=== PATIENT | female | born 1950 | race Caucasian/White ===

== ENCOUNTER 2023-03-06 12:59 | Inpatient (IN) | payer OTHER, SELFPAY ==
--- NOTE | ~2023-03-06 | XR_ITS ---
EXAMINATION: XR ABDOMEN KUB CLINICAL INDICATION: Constipation. COMPARISON: None available. TECHNIQUE: AP view of the abdomen. FINDINGS: There is a biliary stent in the right upper quadrant with cholecystectomy nissa. There is moderate stool in the right colon and sigmoid region. No radiopaque calculi or organomegaly seen. No gross bony abnormality. XR/XR KUB IMPRESSION: 1. Moderate constipation. 2. Biliary stent in the right upper quadrant with cholecystectomy nissa in the right upper quadrant.
--- NOTE | ~2023-03-06 | XR_ITS ---
EXAMINATION: XR CHEST CLINICAL INFORMATION: [place] COMPARISON: None available. TECHNIQUE: Frontal view of the chest was obtained. FINDINGS: The lungs are expanded with haziness in right CP angle from pleural effusion. There is bilateral increased pulmonary vascularity both lung bases suggestive of congestion. Heart size enlarged. No gross bony abnormality seen. XR/XR chest 1V IMPRESSION: 1. Cardiomegaly with moderate pulmonary vascular congestion. 2. Small right pleural effusion with underlying atelectasis
--- NOTE | ~2023-03-06 | XR_ITS ---
EXAMINATION: XR CHEST CLINICAL INFORMATION: Shortness of breath. COMPARISON: 03/24/2023 TECHNIQUE: Frontal view of the chest was obtained. FINDINGS: The cardiac silhouette is enlarged but stable. The remaining mediastinal structures are stable. There is diffuse increased interstitial markings and faint diffuse lung opacities. There is a layering right lung base opacity and blunting of the left costophrenic angle. The bony structures and soft tissues are unremarkable. XR/XR chest 1V IMPRESSION: Cardiomegaly with diffuse increased interstitial markings/faint lung opacities similar to previous likely representing interstitial and possible early pulmonary edema. Small to moderate right and possibly minimal left pleural effusions. Similar findings were present previously.
[2023-03-06 14:00] VITALS: BMI 29.7
--- OUTSIDE RECORDS SUMMARY | 2023-03-06 14:42 | XMS_ITS | Continuity of Care Document ---
Author Name [facility] Organization [facility] Address [address] [place] [address]- Care Team Providers Care Felter Tennis Balls Name Role Phone Rj LEAD SHAREPOINT DEVELOPER, Winsome M Primary Care Physician Encounter [facility] Date(s): 11/29/21 [facility] [address] [address]- [place] Encounter Diagnosis COPD with asthma(Discharge Diagnosis) - 11/30/21 Chronic constipation(Discharge Diagnosis) - 11/30/21 Cirrhosis of liver with ascites(Discharge Diagnosis) - 11/30/21 DM2 (diabetes mellitus, type 2)(Discharge Diagnosis) - 11/30/21 Hospital discharge follow-up(Discharge Diagnosis) - 11/30/21 Attending Physician: Not on Staff, Attending MD Allergies, Adverse Reactions, Alerts Substance Reaction Severity Status aspirin hives unknown Persistent Mild Active penicillins gerd gi distress Headache Active Bee Stings anaphylaxis Persistent Severe Active Immunizations Given and Recorded Vaccine Date Status Refusal Reason influenza virus vaccine, inactivated 10/19/21 Give n influenza virus vaccine, inactivated 05/04/20 Anthony rded influenza virus vaccine, inactivated 1 07/10/18 Re corded influenza virus vaccine, inactivated 09/24/17 Give n influenza virus vaccine, inactivated 06/20/16 Give n influenza virus vaccine, inactivated 2 04/19/15 Re corded influenza virus vaccine, inactivated 3 05/17/14 Gi sukhi SARS-CoV-2 (COVID-19) mRNA-1273 vaccine 06/21/21 R ecorded SARS-CoV-2 (COVID-19) Ad26 vaccine 11/20/20 Given Zoster Vaccine Live 4 07/10/18 Recorded Zoster Vaccine Live 5 11/09/15 Recorded Zoster Vaccine Live 08/19/12 Recorded zoster vaccine, inactivated 01/27/18 Recorded pneumococcal 13-valent vaccine 01/27/18 Recorded pneumococcal 23-valent vaccine 6 07/19/15 Recorded pneumococcal 23-valent vaccine 03/31/10 Given Tet/Diphth/Acel, Pertussis (oldterm) 7 12/11/13 Gi sukhi 1Result Comment: [facility]07/11/2018] [facility] 3Admin Note: given at [facility] in [place], [place] 4Result Comment: [07/11/2018] [facility] 5Result Comment: [11/11/2015] given at [facility] [address] [place] [address] [phone] 6Location History: [facility] 7Admin Note: boostrix vis 12-28-2012 Medications albuterol 0.083% inhalation solution 3 mL = 2.5 mg, Inhalation, Every 6 hours, PRN Wheezing/Shortness of Breath, # 60 each, 6 Refills, Maintenance, 10/29/14 10:00:25, Solution Start Date: 10/29/14 Status: Ordered escitalopram 20 mg oral tablet 1 tablet = 20 mg, By Mouth, Daily, # 90 tablet, 1 Refills, Maintenance, 11/29/21 7:27:00 EDT, Tablet, [id number], 150, cm, 11/03/21 13:46:00 EDT, Height, 100.8, kg, 11/01/21 22:19:00EDT, Dry Weight Start Date: 11/29/21 Stop Date: 05/28/22 Status: Ordered furosemide 20 mg oral tablet 20 mg, 1, tablet, By Mouth, 2 times a day, # 180 tablet, Refills 1, Tot. Refills 1, Maintenance, 12/01/21 16:35:00 EDT, Route to Pharmacy Electronically, [facility] #[id number], Partial fill upon patient request if the prescription is for a sched... Start Date: 12/01/21 Stop Date: 05/30/22 Status: Ordered furosemide 40 mg oral tablet 40 mg, 1, tablet, By Mouth, Daily, Refills 0, Maintenance, 11/03/21 16:24:00 EDT, Partial fill uponpatient request if the prescription is for a schedule II opioid drug. Start Date: 11/03/21 Status: Ordered gabapentin 100 mg oral capsule 200 mg, 2, capsule, By Mouth, 3 times a day, 2 capsules to equal 200 mg three times a day., # 180 capsule, Refills 3, Tot. Refills 3, Maintenance, 12/05/21 20:30:00 EDT, Route to Pharmacy Electronically, [facility] #[id number], Partial fill upon... Start Date: 12/05/21 Status: Ordered gabapentin 100 mg oral capsule 200 mg, 2, capsule, By Mouth, 3 times a day, # 180 capsule, Refills 3, Tot. Refills 3, Maintenance,12/27/20 11:32:00 EDT, Route to Pharmacy Electronically, [facility] #[id number], Partial fill upon patient request if the prescription is for a sc... Start Date: 12/27/20 Status: Ordered isosorbide mononitrate 30 mg oral tablet, extended release 30 mg, 1, tablet, By Mouth, Daily in AM, # 30 tablet, Refills 3, Tot. Refills 3, Maintenance, 04/06/21 12:52:00 EDT, Route to Pharmacy Electronically, [facility] #[id number], Partial fill upon patient request if the prescription is for a schedule... Start Date: 04/06/21 Status: Ordered Lantus Solostar Pen 100 units/mL subcutaneous solution = 15 units, Subcutaneous Infusion, Daily, with evening meal, # 15 mL, 3 Refills, Maintenance, 11/29/21 21:45:00 EDT, [facility] #[id number], Partial fill upon patient request if the prescriptionis for a schedule II opioid drug., 150, cm, ... Start Date: 11/29/21 Status: Ordered levothyroxine 0.025 mg oral tablet 1 tablet, By Mouth, Daily, # 90 tablet, 1 Refills, Maintenance, 11/29/21 7:27:00 EDT, Tablet, [facility] #[id number], 150, cm, 11/03/21 13:46:00 EDT, Height, 100.8, kg, 11/01/21 22:19:00 EDT, Dry Weight Start Date: 11/29/21 Stop Date: 05/28/22 Status: Ordered LORazepam 0.5 mg oral tablet 1 tablet = 0.5 mg, By Mouth, Daily, PRN Anxiety, # 24 tablet, 0 Refills, Maintenance, 11/29/21 7:28:00 EDT, Tablet, [facility] #[id number], 150, cm, 11/03/21 13:46:00 EDT, Height, 100.8, kg, 11/01/21 22:19:00 EDT, Dry Weight Start Date: 11/29/21 Status: Ordered magnesium oxide 400 mg oral tablet 1 tablet = 400 mg, By Mouth, 2 times a day, 0 Refills, Maintenance, 11/03/21 16:26:00 EDT, Tablet, Partial fill upon patient request if the prescription is for a schedule II opioid drug. Start Date: 11/03/21 Status: Ordered MiraLax Powder 1 pack/packet = 17 Gm, By Mouth, 2 times a day, 0 Refills, Maintenance, 11/03/21 16:26:00 EDT, Powder, Partial fill upon patient request if the prescription is for a schedule II opioid drug. Start Date: 11/03/21 Status: Ordered nadolol 20 mg oral tablet 20 mg, 1, tablet, By Mouth, Daily, # 90 tablet, Refills 0, Tot. Refills 0, Maintenance, 12/01/21 16:36:00 EDT, Route to Pharmacy Electronically, [facility] #[id number], Partial fill upon patientrequest if the prescription is for a schedule II op... Start Date: 12/01/21 Stop Date: 03/01/22 Status: Ordered nitroglycerin 0.4 mg sublingual tablet 1 tablet = 0.4 mg, Sublingual, Every 5 minutes, PRN as needed for chest pain, not to exceed 3 doses/15 min--if pain persists, seek medical attention, # 30 tablet, 3 Refills, Maintenance, 04/05/21 13:22:00 EDT, Tablet, [facility] #[id number], Part... Start Date: 04/05/21 Stop Date: 08/03/21 Status: Ordered NovoLOG FlexPen 100 units/mL injectable solution See Instructions, Subcutaneous Infusion 3 times a day before meals. Sliding scale:: 150-200 2 [id number] 4 UNITS 300-350 6 UNITS, # 3 mL, 3 Refills, Maintenance, 12/01/21 11:54:00 EDT, [facility] #[id number], Partial fill upon patient requ... Start Date: 12/01/21 Status: Ordered OneTouch Verio Glucose Meter See Instructions, # 1 each, Maintenance, E11.8 Use as directed., 11/27/21 12:17:00 EDT, Supply, 150, cm, 11/03/21 13:46:00 EDT, Height, 100.8, kg, 11/01/21 22:19:00 EDT, Dry Weight Start Date: 11/27/21 Status: Ordered OneTouch Verio Lancets See Instructions, # 60 each, Refills 11, Tot. Refills 11, Maintenance, E11.8 Test blood glucose twice a day and as needed., 11/27/21 12:19:00 EDT, Supply, 150, cm, 11/03/21 13:46:00 EDT, Height, 100.8, kg, 11/01/21 22:19:00 EDT, Dry Weight Start Date: 11/27/21 Status: Ordered OneTouch Verio Test Strips See Instructions, # 60 each, Refills 11, Tot. Refills 11, Maintenance, E11.8 Test blood glucose twice a day and as needed., 11/27/21 12:17:00 EDT, Supply, 150, cm, 11/03/21 13:46:00 EDT, Height, 100.8, kg, 11/01/21 22:19:00 EDT, Dry Weight Start Date: 11/27/21 Status: Ordered pantoprazole 40 mg oral delayed release tablet = 40 mg, By Mouth, 2 times a day, Maintenance, 11/03/21 16:26:00 EDT, EC Tablet Start Date: 11/03/21 Status: Ordered Senna 8.6 mg oral tablet 17.2 mg, 2, tablet, By Mouth, 2 times a day, Refills 0, Maintenance, 11/03/21 16:26:00 EDT, Tablet,Partial fill upon patient request if the prescription is for a schedule II opioid drug. Start Date: 11/03/21 Status: Ordered Singulair 10 mg oral tablet 10 mg, 1, tablet, By Mouth, Daily in PM, BUBBLE PACK PLEASE, # 30 tablet, Refills 5, Tot. Refills 5, Maintenance, 10/14/21 18:18:00 EST, Route to Pharmacy Electronically, [facility] #[id number],148.4, cm, 10/05/21 10:50:00 EST, Height, 104.5, kg... Start Date: 10/14/21 Stop Date: 04/12/22 Status: Ordered spironolactone 100 mg oral tablet 100 mg, 1, tablet, By Mouth, Daily, # 90 tablet, Refills 1, Tot. Refills 1, Maintenance, 12/01/21 16:34:00 EDT, Route to Pharmacy Electronically, [facility] #[id number], Partial fill upon patient request if the prescription is for a schedule II o... Start Date: 12/01/21 Stop Date: 05/30/22 Status: Ordered umeclidinium 62.5 mcg/inh inhalation powder 1 inhalation = 62.5 mcg, Inhalation, Every 24 hours, doses should be taken at least 24 hours apart,# 30 each, 11 Refills, Maintenance, 01/06/21 14:47:00 EDT, Powder, [facility] #[id number], Partial fill upon patient request if the prescription i... Start Date: 01/06/21 Status: Ordered Xopenex HFA 45 mcg/inh inhalation aerosol 1 puffs, Inhalation, Every 6 hours, PRN Wheezing/Shortness of Breath, use with spacer chamber, # 1 each, 11 Refills, Maintenance, 02/24/18 18:32:00 EDT, Aerosol Start Date: 02/24/18 Status: Ordered Problem List Condition Effective Dates Status Health Status Inform ant Anemia of chronic disease(Confirmed) Active AVM (arteriovenous malformat ion) of stomach, acquired(Confirmed) 1 07/31/18 Active Arthritis(Confirmed) Active COPD with asthma(Confirmed) Active Bilateral knee pain(Confirmed) Active Head contusion(Confirmed) Active 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) 2 07/17/18 Active Chronic back pain(Confirmed) Active Chronic female pelvic pain(Confirmed) Active Chronic rhinitis(Confirmed) Active Cirrhosis of liver with ascites(Confirmed) Active Dyspnea on exertion(Confirmed) Active Easy bruising(Confirmed) Active Bilateral leg edema(Confirmed) Active Abdominal pain, generalized(Confirmed) Active Generalized anxiety disorder(Confirmed) Active GERD - Gastro-esophageal ref lux disease(Confirmed) Active POP-Q stage 2 rectocele(Confirmed) Active Mite allergy(Confirmed) 3 11/08/14 Active HTN (hypertension)(Confirmed) Active Gastric hyperplastic polyp(Confirmed) 11/21/20 Active Hypothyroidism(Confirmed) Active Fecal incontinence(Confirmed) Active Iron deficiency(Confirmed) Active Poor conditioning(Confirmed) Active Anxiety and depression(Confirmed) Active Mixed incontinence(Confirmed) Active Morbid obesity(Confirmed) Active Myocardial bridge(Confirmed) Active Ovarian tumor of borderline malignancy(Confirmed) 4 Active Osteoporosis(Confirmed) Active Numbness and tingling in hands(Confirmed) Active *[facility] [phone] CARE MANAG ER HELEN ROWDY(Confirmed) Active Hepatitis C virus infection resolved after antiviral drug therapy(Confirmed) Active Portal hypertension with eso phageal varices(Confirmed) Active DM2 (diabetes mellitus, type 2)(Confirmed) Active Urge urinary incontinence(Confirmed) Active 1tx with apc today due to bleeding. 2possibly Type III 33+ 4s/p bilateral salpingo-oophrectomy Diagnosis Diagnosis Type Effective Dates Health Status Clinical Service Informant COPD with asthma Discharge Diagnosis 11/30/21 Chronic constipation Discharge Diagnosis 11/30/21 Cirrhosis of liver with ascites Discharge Diagnosis 11/30/21 DM2 (diabetes mellitus, type 2) Discharge Diagnosis 11/30/21 Hospital discharge follow-up Discharge Diagnosis 11/30/21 Social History Social History Type Response Smoking Status Former smoker; Tobac co user in household: No; Type: Cigarettes; Tobacco use times per day: up to 2 ppd; Started at age: 16; Stopped at age: 48; entered on: 11/08/14 Sex
--- OUTSIDE RECORDS SUMMARY | 2023-03-06 14:42 | XMS_ITS | Continuity of Care Document ---
Author Name Unknown Organization [facility] Address [address] [place] [address]- Care Team Providers Care Asp Developer Name Role Phone Winsome De La Rosa NP Primary Care Physician [phone] Encounter [facility] Date(s): 08/11/19 - 12/09/19 [facility] [address] [place] [address]- Attending Physician: Winsome De La Rosa NP Allergies, Adverse Reactions, Alerts Substance Reaction Severity Status aspirin hives unknown Persistent Mild Active penicillins gerd gi distress Headache Active Bee Stings anaphylaxis Persistent Severe Active Immunizations Given and Recorded Vaccine Date Status Refusal Reason Zoster Vaccine Live 1 07/10/18 Recorded Zoster Vaccine Live 2 11/09/15 Recorded influenza virus vaccine, inactivated 3 07/10/18 Re corded influenza virus vaccine, inactivated 09/24/17 Give n influenza virus vaccine, inactivated 06/20/16 Give n influenza virus vaccine, inactivated 4 04/19/15 Re corded influenza virus vaccine, inactivated 5 05/17/14 Gi sukhi pneumococcal 23-valent vaccine 6 07/19/15 Recorded pneumococcal 23-valent vaccine 03/31/10 Given Tet/Diphth/Acel, Pertussis (oldterm) 7 12/11/13 Gi sukhi 1Result Comment: [07/11/2018] [facility] 2Result Comment: [11/11/2015] given at [facility] [address] [place] [address] 3Result Comment: [07/11/2018] [facility] 5Admin Note: given at [facility] in [place], [place] 6Location History[facility] 7Admin Note: [facility] vis 12-28-2012 Medications albuterol 0.083% inhalation solution 3 mL = 2.5 mg, Inhalation, Every 6 hours, PRN Wheezing/Shortness of Breath, # 60 each, 6 Refills, Maintenance, 10/29/14 10:00:25, Solution Start Date: 10/29/14 Status: Ordered Colace sodium 100 mg oral capsule 100 mg, 1, capsule, By Mouth, 2 times a day, BUBBLE PACK PLEASE, # 180 capsule, Refills 1, Tot. Refills 1, Maintenance, 10/21/19 14:37:00 EDT, Route to Pharmacy Electronically, [facility][id number], 149.9, cm, 08/10/19 9:46:00 EST, Height, 94.4... Start Date: 10/21/19 Stop Date: 04/18/20 Status: Ordered docusate sodium 100 mg oral capsule See Instructions, # 60 Unknown, Refills 14 Tot. Refills 14, TAKE ONE CAPSULE BY MOUTH TWICE DAILY, [facility] Start Date: 04/24/19 Status: Ordered escitalopram 10 mg oral tablet 1 tablet = 10 mg, By Mouth, Daily, BUBBLE PACK PLEASE, # 30 tablet, 6 Refills, Maintenance, 10/21/19 14:37:00 EDT, Tablet, [facility] #[id number], 149.9, cm, 08/10/19 9:46:00 EST, Height, 94.4, kg, 05/21/19 10:46:00 EDT, Dry Weight Start Date: 10/21/19 Status: Ordered FeroSul 325 mg oral tablet 1 tablet = 325 mg, By Mouth, 2 times a day, BUBBLE PACK PLEASE, # 60 tablet, 5 Refills, Soft Stop, 10/21/19 14:38:00 EDT, [facility] #[id number], 149.9, cm, 08/10/19 9:46:00 EST, Height, 94.4, kg, 05/21/19 10:46:00 EDT, Dry Weight Start Date: 10/21/19 Stop Date: 04/18/20 Status: Ordered ferrous sulfate 325 mg oral enteric coated tablet 325 mg, 1, tablet, By Mouth, 2 times a day, # 180 tablet, Refills 1, Tot. Refills 1, Maintenance, 12/24/18 14:50:03 EDT, [id number] Start Date: 12/24/18 Stop Date: 06/22/19 Status: Ordered Flovent HFA 220 mcg/inh inhalation aerosol 2 puffs, Inhalation, 2 times a day, # 1 each, 6 Refills, Maintenance, 09/24/17 16:24:21, Aerosol Start Date: 09/24/17 Stop Date: 04/22/18 Status: Ordered gabapentin 100 mg oral capsule 100 mg, 1, capsule, By Mouth, 2 times a day, BUBBLE PACK PLEASE, # 60 capsule, Refills 0, Tot. Refills 0, Maintenance, 12/04/19 14:46:00 EDT, Route to Pharmacy Electronically, [facility] #[id number], 149.9, cm, 08/10/19 9:46:00 EST, Height, 94.4,... Start Date: 12/04/19 Stop Date: 01/03/20 Status: Ordered levothyroxine 0.025 mg oral tablet 1 tablet, By Mouth, Daily, BUBBLE PACK PLEASE, # 30 tablet, 5 Refills, Maintenance, 10/21/19 14:40:00 EDT, Tablet, [facility] #[id number], 149.9, cm, 08/10/19 9:46:00 EST, Height, 94.4, kg, 05/21/19 10:46:00 EDT, Dry Weight Start Date: 10/21/19 Stop Date: 04/18/20 Status: Ordered lisinopril 20 mg oral tablet 20 mg, 1, tablet, By Mouth, Daily, BUBBLE PACK PLEASE, # 30 tablet, Refills 5, Tot. Refills 5, Maintenance, 10/21/19 14:40:00 EDT, Route to Pharmacy Electronically, [facility] #[id number], 149.9, cm, 08/10/19 9:46:00 EST, Height, 94.4, kg, ... Start Date: 10/21/19 Stop Date: 04/18/20 Status: Ordered LORazepam 1 mg oral tablet 1 tablet = 1 mg, By Mouth, Daily, PRN as needed for anxiety, # 30 tablet, 0 Refills, Maintenance, 11/16/19 15:28:00 EDT, Tablet, [facility] #[id number], 149.9, cm, 08/10/19 9:46:00 EST, Height, 94.4, kg, 05/21/19 10:46:00 EDT, Dry Weight Start Date: 11/16/19 Stop Date: 12/16/19 Status: Ordered nortriptyline 50 mg oral capsule 50 mg, 1, capsule, By Mouth, Daily, BUBBLE PACK PLEASE, # 30 capsule, Refills 0, Tot. Refills 0, Maintenance, 12/04/19 14:46:00 EDT, Route to Pharmacy Electronically, [facility] #[id number], 149.9, cm, 08/10/19 9:46:00 EST, Height, 94.4, kg, 05/12... Start Date: 12/04/19 Stop Date: 01/03/20 Status: Ordered nystatin topical 055142 u/gm ointment 1 application, Topically, 3 times a day, for 30 days, apply to area under pannus as discussed in the office, # 30 Gm, 1 Refills, Acute 01/27/16 15:10:09, 11/28/15 15:10:09, Ointment, 1 application Topically 3 times a day,x30 days,Instr:apply to area u... Start Date: 11/28/15 Stop Date: 01/27/16 Status: Ordered omeprazole 20 mg oral enteric coated capsule 1 capsule = 20 mg, By Mouth, Daily, BUBBLE PACK PLEASE, # 30 capsule, 5 Refills, Maintenance, 10/21/19 14:42:00 EDT, EC Capsule, [facility] #[id number], 149.9, cm, 08/10/19 9:46:00 EST, Height, 94.4, kg, 05/21/19 10:46:00 EDT, Dry Weight Start Date: 10/21/19 Stop Date: 04/18/20 Status: Ordered Singulair 10 mg oral tablet 10 mg, 1, tablet, By Mouth, Daily in PM, BUBBLE PACK PLEASE, # 30 tablet, Refills 5, Tot. Refills 5, Maintenance, 10/21/19 14:41:00 EDT, Route to Pharmacy Electronically, [facility] #[id number],149.9, cm, 08/10/19 9:46:00 EST, Height, 94.4, kg,... Start Date: 10/21/19 Stop Date: 04/18/20 Status: Ordered Spiriva Respimat 1.25 mcg/inh inhalation aerosol 2 puffs, Inhalation, Daily, # 1 each, 2 Refills, Maintenance, 02/16/19 9:30:21 EDT, Aerosol Start Date: 02/16/19 Stop Date: 05/17/19 Status: Ordered Xopenex HFA 45 mcg/inh inhalation aerosol 1 puffs, Inhalation, Every 6 hours, PRN Wheezing/Shortness of Breath, use with spacer chamber, # 1 each, 11 Refills, Maintenance, 02/24/18 18:32:00 EDT, Aerosol Start Date: 02/24/18 Status: Ordered Problem List Condition Effective Dates Status Health Status Inform ant Anemia(Confirmed) Active AVM (arteriovenous malformat ion) of stomach, acquired(Confirmed) 1 07/31/18 Active Arthritis(Confirmed) Active Asthma(Confirmed) 2, 3 Active Bilateral knee pain(Confirmed) Active Blocked ears(Confirmed) 03/02/13 Active Left breast mass(Confirmed) Active Head contusion(Confirmed) Active 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) 4 07/17/18 Active Chest pain(Confirmed) Active Chronic back pain(Confirmed) Active Chronic bronchitis(Confirmed) Active Cirrhosis of liver due to he patitis C(Confirmed) 2011 Active Chronic female pelvic pain(Confirmed) Active Cirrhosis of liver(Confirmed) Active Constipated(Confirmed) Active Depression(Confirmed) Active Diabetes(Confirmed) Active Dizziness(Confirmed) Active Dyspnea on exertion(Confirmed) Active Easy bruising(Confirmed) Active Bilateral leg edema(Confirmed) Active Esophageal varices determine d by endoscopy(Confirmed) 05/22/18 Active Abdominal pain, generalized(Confirmed) Active Generalized anxiety disorder(Confirmed) Active GERD - Gastro-esophageal ref lux disease(Confirmed) Active H/O headache(Confirmed) Active Status post bilateral salpingo-oophorectomy(Confirmed) Active POP-Q stage 2 rectocele(Confirmed) Active Status post fall(Confirmed) Active Mite allergy(Confirmed) 5 11/08/14 Active Hypertension(Confirmed) 10/27/12 Active Hypothyroidism(Confirmed) Active Impacted cerumen of both ears(Confirmed) Active IFG (impaired fasting glucose)(Confirmed) Active Fecal incontinence(Confirmed) Active Poor conditioning(Confirmed) Active Lumbar strain(Confirmed) Active Anxiety and depression(Confirmed) Active Mixed incontinence(Confirmed) Active Morbid obesity(Confirmed) Active Ovarian tumor of borderline malignancy(Confirmed) 6 Active Osteoporosis(Confirmed) Active Pancytopenia(Confirmed) 10/27/14 Active Numbness and tingling in hands(Confirmed) Active *[facility] [phone] CARE MANAG ER HELEN ROWDY(Confirmed) Active Rib pain on left side(Confirmed) Active Pain in right shoulder(Confirmed) Active Urge urinary incontinence(Confirmed) Active 1tx with apc today due to bleeding. 2normal PFT's 11/22/14 r/o COPD 3childhood onset 4possibly Type III 53+ 6s/p bilateral salpingo-oophrectomy Social History Social History Type Response Smoking Status Former smoker; Tobac co user in household: No; Type: Cigarettes; Tobacco use times per day: up to 2 ppd; Started at age: 16; Stopped at age: 48; entered on: 11/08/14 Sex
--- OUTSIDE RECORDS SUMMARY | 2023-03-06 14:42 | XMS_ITS | Continuity of Care Document ---
Author Name Unknown Organization [facility] Jyoti Mejia Surger y Address [address] [facility], [address] [place] [address]- Care Team Providers Care Manager Food Name Role Phone Rj HAMILTON, Winsome Weiss Primary Care Physician Encounter [facility] Date(s): 03/02/20 - 03/09/20 [facility] [address] [facility], [address] [place] [address]- [facility] Attending Physician: Rossy Mcclure DO Referring Physician: Winsome De La Rosa NP Allergies, [...] [07/11/2018] [facility] 2Result Comment: [11/11/2015] given at [facility] [address] [place] [address] 3Result Comment: [07/11/2018] [facility] 5Admin Note: given at [facility] in [place], [place] 6Location History[facility] 7Admin Note: boostrix vis 12-28-2012 Medications albuterol 0.083% inhalation solution 3 mL = 2.5 mg, Inhalation, Every 6 hours, PRN Wheezing/Shortness of Breath, # 60 each, 6 Refills, Maintenance, 10/29/14 10:00:25, Solution Start Date: 10/29/14 Status: Ordered Colace sodium 100 mg oral capsule 100 mg, 1, capsule, By Mouth, 2 times a day, for 90 days, BUBBLE PACK PLEASE, # 180 capsule, Refills 1, Tot. Refills 1, Hard Stop 04/18/20 14:37:00 EDT, 10/21/19 14:37:00 EDT, Route to Pharmacy Electronically, [facility] #[id number], 149.9, cm, 1... Start Date: 10/21/19 Stop Date: 04/18/20 Status: Ordered Colace sodium 100 mg oral capsule 100 mg, 1, capsule, By Mouth, 2 times a day, BUBBLE PACK PLEASE, # 180 capsule, Refills 1, Tot. Refills 1, Maintenance, 04/18/20 14:37:00 EDT, Route to Pharmacy Electronically, [facility] #[id number], 149.9, cm, 03/07/20 10:17:00 EDT, Height, 103... Start Date: 04/18/20 Stop Date: 10/15/20 Status: Ordered docusate sodium 100 mg oral capsule See Instructions, # 60 Unknown, Refills 14 Tot. Refills 14, TAKE ONE CAPSULE BY MOUTH TWICE DAILY, [facility] Start Date: 04/24/19 Status: Ordered escitalopram 20 mg oral tablet 1 tablet = 20 mg, By Mouth, Daily, # 30 tablet, 2 Refills, Maintenance, 02/23/20 16:28:00 EDT, Tablet, [facility] #[id number], 149.9, cm, 02/23/20 13:20:00 EDT, Height, 94.4, kg, 05/21/19 10:46:00 EDT, Dry Weight Start Date: 02/23/20 Stop Date: 05/23/20 Status: Ordered FeroSul 325 mg oral tablet 1 tablet = 325 mg, By Mouth, 2 times a day, BUBBLE PACK PLEASE, # 60 tablet, 5 Refills, Soft Stop, 10/21/19 14:38:00 EDT, [facility] #[id number], 149.9, cm, 08/10/19 9:46:00 EST, Height, 94.4, kg, 05/21/19 10:46:00 EDT, Dry Weight Start Date: 10/21/19 Stop Date: 04/18/20 Status: Ordered ferrous sulfate 325 mg oral enteric coated tablet 325 mg, 1, tablet, By Mouth, 2 times a day, # 180 tablet, Refills 1, Tot. Refills 1, Maintenance, 12/24/18 14:50:03 EDT, [id number] Start Date: 12/24/18 Stop Date: 06/22/19 [...] capsule, Refills 0, Tot. Refills 0, Maintenance, 03/02/20 16:01:00 EDT, Route to Pharmacy Electronically, [facility] #[id number], 149.9, cm, 03/02/20 10:16:00 EDT, Height, 94.4... Start Date: 03/02/20 Stop Date: 04/01/20 Status: Ordered levothyroxine 0.025 mg oral tablet 1 tablet, By Mouth, Daily, BUBBLE PACK PLEASE, # 30 tablet, 5 Refills, Maintenance, 10/21/19 14:40:00 EDT, Tablet, [facility] #[id number], 149.9, cm, 08/10/19 9:46:00 EST, Height, 94.4, kg, 05/21/19 10:46:00 EDT, Dry Weight Start Date: 10/21/19 Stop Date: 04/18/20 Status: Ordered lisinopril 20 mg oral tablet 20 mg, 1, tablet, By Mouth, Daily, BUBBLE PACK PLEASE, # 30 tablet, Refills 5, Tot. Refills 5, Maintenance, 10/21/19 14:40:00 EDT, Route to Pharmacy Electronically, [facility] #[id number], 149.9, cm, 08/10/19 9:46:00 EST, Height, 94.4, kg, ... Start Date: 10/21/19 Stop Date: 04/18/20 Status: Ordered LORazepam 1 mg oral tablet 1 tablet = 1 mg, By Mouth, Daily, PRN as needed for anxiety, # 30 tablet, 0 Refills, Maintenance, 02/05/20 11:32:00 EDT, Tablet, [facility] #[id number], 149.9, cm, 02/05/20 11:20:00 EDT, Height,94.4, kg, 05/21/19 10:46:00 EDT, Dry Weight Start Date: 02/05/20 Stop Date: 03/06/20 Status: Ordered nortriptyline 50 mg oral capsule 50 mg, 1, capsule, By Mouth, Daily, BUBBLE PACK PLEASE, # 30 capsule, Refills 1, Tot. Refills 1, Maintenance, 02/15/20 11:10:00 EDT, Route to Pharmacy Electronically, [facility] #[id number], 149.9, cm, 02/05/20 11:20:00 EDT, Height, 94.4, kg, ... Start Date: 02/15/20 Stop Date: 04/15/20 Status: Ordered nystatin topical [id number] u/gm ointment 1 application, Topically, 3 times [...] Refills, Maintenance, 10/21/19 14:42:00 EDT, EC Capsule, [facility] #[id number], 149.9, cm, 08/10/19 9:46:00 EST, Height, 94.4, kg, 05/21/19 10:46:00 EDT, Dry Weight Start Date: 10/21/19 Stop Date: 04/18/20 Status: Ordered Singulair 10 mg oral tablet 10 mg, 1, tablet, By Mouth, Daily in PM, BUBBLE PACK PLEASE, # 30 tablet, Refills 5, Tot. Refills 5, Maintenance, 03/02/20 16:02:00 EDT, Route to Pharmacy Electronically, [facility] #[id number],149.9, cm, 03/02/20 10:16:00 EDT, Height, 94.4, kg,... Start Date: 03/02/20 Stop Date: 08/29/20 Status: Ordered Spiriva Respimat 1.25 mcg/inh inhalation [...] Active Numbness and tingling in hands(Confirmed) Active *[facility] [phone] CARE MANAG ER HELEN RENO(Confirmed) Active Rib pain on left side(Confirmed) Active Pain in right shoulder(Confirmed) Active Urge urinary incontinence(Confirmed) Active 1tx with apc today due to bleeding. 2normal PFT's 11/22/14 r/o COPD 3childhood onset 4possibly Type III 53+ 6s/p bilateral salpingo-oophrectomy Vital Signs Most recent to oldest [Reference Range]: 1 Height 149.9 cm (03/02/20 10:16 AM) Weight 102.4 kg (03/02/20 10:16 AM) Oxygen Saturation [94-100 %] 98 % (03/02/20 10:16 AM) Pulse Rate [55-90 bpm] 90 bpm (03/02/20 10:16 AM) Body Mass Index [18.5-24.99] 45.57 *>HHI* (03/02/20 10:16 AM) Social History Social History Type Response Smoking Status Former smoker; Tobac co user in household: No; Type: Cigarettes; Tobacco use times per day: up to 2 ppd; Started at age: 16; Stopped at age: 48; entered on: 11/08/14 Sex
--- OUTSIDE RECORDS SUMMARY | 2023-03-06 14:42 | XMS_ITS | Continuity of Care Document ---
Author Name Unknown Organization [facility] y Address [address] [place] [address], [address] [place] [address]- Care Team Providers Care Tapping Machine Operator Name Role Phone Rj COLOR SPECIALIST, Winsome Weiss Primary Care Physician [phone] Encounter [facility] Date(s): 04/17/22 - 05/17/22 [facility] [address] [place] [address] Drive, [address] [place] [address]- Allergies, Adverse Reactions, Alerts Substance Reaction Severity Status penicillins gerd gi distress Headache Active aspirin Hives hives unknown Mild Active Bee Stings anaphylaxis Persistent Severe Active Immunizations Given and Recorded Vaccine Date Status Refusal Reason influenza virus vaccine, inactivated 10/19/21 Give n influenza virus vaccine, inactivated 05/04/20 Anthony rded influenza virus vaccine, inactivated 06/01/19 Anthony rded influenza virus vaccine, inactivated 1 07/10/18 Re corded influenza virus vaccine, inactivated 09/24/17 Give n influenza virus vaccine, inactivated 06/20/16 Give n influenza virus vaccine, inactivated 2 04/19/15 Re corded influenza virus vaccine, inactivated 3 05/17/14 Gi sukhi influenza virus vaccine, inactivated 05/30/13 Anthony rded influenza virus vaccine, inactivated 04/16/12 Anthony rded influenza virus vaccine, inactivated 05/23/11 Anthony rded influenza virus vaccine, inactivated 05/01/10 Anthony rded SARS-CoV-2 (COVID-19) mRNA-1273 vaccine 06/21/21 R ecorded [...] [facility] 3Admin Note: given at [facility] in [place], [place] 4Result Comment: [07/11/2018] [facility] 5Result Comment: [11/11/2015] given at [facility] [address] [place] [address] [phone] 6Location History: [facility] 7Admin Note: boostrix vis 12-28-2012 Medications Breo Ellipta 200 mcg-25 mcg/inh inhalation powder 1 puffs, Inhalation, Daily, # 1 each, 11 Refills, Maintenance, 12/20/21 15:11:00 EDT, Powder, [facility] #[id number], Partial fill upon patient request if the prescription is for a schedule II opioid drug., 1 puffs Inhalation Daily, 150, cm, 050... Start Date: 12/20/21 Status: Ordered calcium carbonate 500 mg (200 mg elemental calcium) oral tablet, chewable 500 mg, 1, tablet, Chew, 2 times a day, # 60 tablet, Refills 0, Maintenance, 01/19/22 12:34:00 EDT,Partial fill upon patient request if the prescription is for a schedule II opioid drug. Start Date: 01/19/22 Status: Ordered clopidogrel 75 mg oral tablet 75 mg, 1, tablet, By Mouth, Daily, # 90 tablet, Refills 0, Tot. Refills 0, Maintenance, 01/19/22 19:16:00 EDT, Route to Pharmacy Electronically, [facility] #[id number], Partial fill upon patientrequest if the prescription is for a schedule II op... Start Date: 01/19/22 Status: Ordered docusate sodium 100 mg oral capsule 100 mg, 1, capsule, By Mouth, Every 12 hours, PRN, # 60 capsule, Refills 0, Tot. Refills 0, Maintenance, Constipation, 05/07/22 19:59:00 EDT, Route to Pharmacy Electronically, [facility] #[id number], Partial fill upon patient request if the presc... Start Date: 05/07/22 Stop Date: 06/06/22 Status: Ordered docusate sodium 100 mg oral capsule TAKE 1 CAPSULE BY MOUTH TWICE DAILY NEEDED FOR CONSTIPATION Start Date: 02/20/22 Status: Ordered escitalopram 20 mg oral tablet 1 tablet = 20 mg, By Mouth, Daily, # 90 tablet, 0 Refills, Maintenance, 05/07/22 20:00:00 EDT, Tablet, [facility] #[id number], 150, cm, 05/02/22 15:04:00 EDT, Height, 98, kg, 03/07/22 19:54:00 EDT, Dry Weight Start Date: 05/07/22 Stop Date: 08/05/22 Status: Ordered ferrous sulfate 325 mg oral enteric coated tablet 325 mg, 1, tablet, By Mouth, 2 times a day, # 180 tablet, Refills 0, Tot. Refills 0, Maintenance, 05/03/22 16:52:00 EDT, Route to Pharmacy Electronically, [facility] #[id number], Partial fill upon patient request if the prescription is for a sche... Start Date: 05/03/22 Stop Date: 08/01/22 Status: Ordered ferrous sulfate 325 mg oral enteric coated tablet TAKE 1 TABLET BY MOUTH TWICE DAILY. MAY. TAKE WITH FOOD TO MINIMIZE ABDOMINAL DISCOMFORT Start Date: 02/20/22 Status: Ordered furosemide 20 mg oral tablet 20 mg, 1, tablet, By Mouth, 2 times a day, # 180 tablet, Refills 0, Tot. Refills 0, Maintenance, 05/07/22 19:59:00 EDT, Route to Pharmacy Electronically, [facility] #[id number], Partial fill upon patient request if the prescription is for a sched... Start Date: 05/07/22 Stop Date: 08/05/22 Status: Ordered gabapentin 100 mg oral capsule 200 mg, 2, capsule, By Mouth, 3 times a day, 2 capsules to equal 200 mg three times a day., # 180 capsule, Refills 0, Tot. Refills 0, Maintenance, 05/07/22 19:56:00 EDT, Route to Pharmacy Electronically, [facility] #[id number], Partial fill upon... Start Date: 05/07/22 Status: Ordered Gas-X See Instructions, 2 tablets 2 times a day, 0 Refills, Maintenance, 01/19/22 12:35:00 EDT, Partial fill upon patient request if the prescription is for a schedule II opioid drug. Start Date: 01/19/22 Status: Ordered Lantus Solostar Pen 100 units/mL subcutaneous solution = 15 units, Subcutaneous Infusion, Daily, with evening meal, # 15 mL, 3 Refills, Maintenance, 11/29/21 21:45:00 EDT, [facility] #[id number], Partial fill upon patient request if the prescriptionis for a schedule II opioid drug., 150, cm, ... Start Date: 11/29/21 Status: Ordered levothyroxine 0.025 mg oral tablet 1 tablet, By Mouth, Daily, # 90 tablet, 1 Refills, Maintenance, 05/07/22 19:58:00 EDT, Tablet, [facility] #[id number], 150, cm, 05/02/22 15:04:00 EDT, Height, 98, kg, 03/07/22 19:54:00 EDT, Dry Weight Start Date: 05/07/22 Stop Date: 11/03/22 Status: Ordered LORazepam 0.5 mg oral tablet 1 tablet = 0.5 mg, By Mouth, Daily at bedtime, PRN Anxiety, USE SPARINGLY, # 30 tablet, 0 Refills, Maintenance, 05/11/22 7:10:00 EDT, Tablet, [facility] #[id number], Partial fill upon patient request if the prescription is for a schedule II opioi... Start Date: 05/11/22 Stop Date: 06/10/22 Status: Ordered LORazepam 0.5 mg oral tablet 1 tablet = 0.5 mg, By Mouth, Daily at bedtime, PRN as needed for anxiety, TAKE 1 TABLET BY MOUTH DAILY NEEDED FOR ANXIETY, # 10 tablet, 0 Refills, Maintenance, 12/22/21 16:13:00 EDT, Tablet, Partial fill upon patient request if the prescription is... Start Date: 12/22/21 Status: Ordered magnesium oxide 400 mg oral tablet 1 tablet = 400 mg, By Mouth, 2 times a day, 0 Refills, Maintenance, 11/03/21 16:26:00 EDT, Tablet, Partial fill upon patient request if the prescription is for a schedule II opioid drug. Start Date: 11/03/21 Status: Ordered midodrine 10 mg oral tablet 1 tablet = 10 mg, By Mouth, 3 times a day, # 90 tablet, 0 Refills, Maintenance, 05/11/22 7:07:00 EDT, Tablet, [facility] #[id number], Partial fill upon patient request if the prescription is fora schedule II opioid drug., 150, cm, 05/02/22 15:04... Start Date: 05/11/22 Stop Date: 06/10/22 Status: Ordered nitroglycerin 0.4 mg sublingual tablet 1 tablet = 0.4 mg, Sublingual, Every 5 minutes, PRN as needed for chest pain, not to exceed 3 doses/15 min--if pain persists, seek medical attention, # 30 tablet, 3 Refills, Maintenance, 04/05/21 13:22:00 EDT, Tablet, [facility] #[id number], Part... Start Date: 04/05/21 Stop Date: 08/03/21 Status: Ordered NovoLOG FlexPen 100 units/mL injectable solution See Instructions, Subcutaneous Infusion 3 times a day before meals. Sliding scale:: 150-200 2 [id number] 4 UNITS 300-350 6 UNITS, # 3 mL, 3 Refills, Maintenance, 12/01/21 11:54:00 EDT, [facility] #[id number], Partial fill upon patient requ... Start Date: 12/01/21 Status: Ordered OneTouch Verio Glucose Meter See Instructions, # 1 each, Maintenance, USE TO TEST BLOOD SUGARS THREE TIMES DAILY. DX:E11.9, 03/05/22 16:19:00 EDT, Supply, 150, cm, 03/01/22 7:16:00 EDT, Height, 97, kg, 02/06/22 10:00:00 EDT, DryWeight Start Date: 03/05/22 Status: Ordered oxyCODONE 5 mg oral tablet 5 mg, 1, tablet, By Mouth, 3 times a day, PRN, MassPat checked, # 10 tablet, Refills 0, Tot. Refills 0, Maintenance, Pain , Severe, 01/19/22 13:52:00 EDT, Route to Pharmacy Electronically, [facility] #[id number], Partial fill upon patient request... Start Date: 01/19/22 Stop Date: 01/22/22 Status: Ordered pantoprazole 40 mg oral delayed release tablet = 40 mg, By Mouth, 2 times a day, # 60 tablet, 3 Refills, Maintenance, 03/05/22 16:20:00 EDT, EC Tablet, 150, cm, 03/01/22 7:16:00 EDT, Height, 97, kg, 02/06/22 10:00:00 EDT, Dry Weight Start Date: 03/05/22 Stop Date: 07/03/22 Status: Ordered Singulair 10 mg oral tablet 10 mg, 1, tablet, By Mouth, Daily in PM, BUBBLE PACK PLEASE, # 30 tablet, Refills 5, Tot. Refills 5, Maintenance, 10/14/21 18:18:00 EST, Route to Pharmacy Electronically, [facility] #[id number],148.4, cm, 10/05/21 10:50:00 EST, Height, 104.5, kg... Start Date: 10/14/21 Stop Date: 04/12/22 Status: Ordered trospium 60 mg oral capsule, extended release 1 capsule = 60 mg, By Mouth, Daily in AM, # 90 capsule, 0 Refills, Maintenance, 05/11/22 7:11:00 EDT, [facility] #[id number], Partial fill upon patient request if the prescription is for a schedule II opioid drug., 150, cm, 05/02/22 15:04:00 EDT,... Start Date: 05/11/22 Status: Ordered Tylenol 325 mg oral tablet 650 mg, 2, tablet, By Mouth, Every 6 hours, PRN, JOHNSON, fever, Refills 0, Maintenance, Pain , Mild, 12/22/21 11:12:00 EDT, Partial fill upon patient request if the prescription is for a schedule II opioid drug. Start Date: 12/22/21 Status: Ordered umeclidinium 62.5 mcg/inh inhalation powder 1 inhalation = 62.5 mcg, Inhalation, Every 24 hours, doses should be taken at least 24 hours apart,# 30 each, 11 Refills, Maintenance, 03/15/22 10:32:00 EDT, Powder, [facility] #[id number], Partial fill upon patient request if the prescription i... Start Date: 03/15/22 Status: Ordered Xopenex HFA 45 mcg/inh inhalation aerosol 1 puffs, Inhalation, Every 6 hours, PRN Wheezing/Shortness of Breath, use with spacer chamber, # 1 each, 11 Refills, Maintenance, 02/24/18 18:32:00 EDT, Aerosol Start Date: 02/24/18 Status: Ordered Problem List Condition Confirmation Course Effective Dates Status H ealth Status Informant Anemia of chronic disease Confirmed Active AVM (arteriovenous malformation) of stomach, acquired 1 Confirmed 07/31/18 Active Arthritis Confirmed Active COPD with asthma Confirmed Active Bilateral knee pain Confirmed Active Head contusion Confirmed Active 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 07/17/18 Active Chronic back pain Confirmed Active Chronic female pelvic pain Confirmed Active Chronic rhinitis Confirmed Active Cirrhosis of liver with ascites Confirmed Active Dyspnea on exertion Confirmed Active Easy bruising Confirmed Active Bilateral leg edema Confirmed Active Abdominal pain, generalized Confirmed Active Generalized anxiety disorder Confirmed Active GERD - Gastro-esophageal reflux disease Confirmed Active POP-Q stage 2 rectocele Confirmed Active Mite allergy 3 Confirmed 11/08/14 Active HTN (hypertension) Confirmed Active Gastric hyperplastic polyp Confirmed 11/21/20 Active Hypothyroidism Confirmed Active Fecal incontinence Confirmed Active Iron deficiency Confirmed Active Poor conditioning Confirmed Active Anxiety and depression Confirmed Active Mixed incontinence Confirmed Active Morbid obesity Confirmed Active 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 2possibly Type III 33+ 4s/p bilateral salpingo-oophrectomy Social History Social History Type Response Smoking Status Former smoker; Tobac co user in household: No; Type: Cigarettes; Tobacco use times per day: up to 2 ppd; Started at age: 16; Stopped at age: 48; entered on: 11/08/14 Sex Patient Care team information Personnel Name: Winsome De La Rosa NP Address: Address: [address] [place] [address], [place] [address]- [place]
--- OUTSIDE RECORDS SUMMARY | 2023-03-06 14:42 | XMS_ITS | Continuity of Care Document ---
Author Name Unknown Organization [facility] Address [address] [place] [address]- Care Team Providers Care Regional Economist Name Role Phone Rj HAMILTON, Winsome Weiss Primary Care Physician [phone] [id number] Date(s): [facility]11[facility]20 [facility] [address] [place] [phone]- Attending Physician: Winsome De La Rosa NP [...] [07/11/2018] [facility] 2Result Comment: [11/11/2015] given at [facility] [address] [place] [address] [phone] 3Result Comment: [07/11/2018] [facility] 5Admin Note: given at [facility] in [place], [place] 6Location History[facility] 7Admin Note: boostrix vis 12-28-2012 Medications albuterol 0.083% inhalation solution 3 mL = 2.5 mg, Inhalation, Every 6 hours, PRN Wheezing/Shortness of Breath, # 60 each, 6 Refills, Maintenance, 10/29/14 10:00:25, Solution Start Date: 10/29/14 Status: Ordered baclofen 10 mg oral tablet 5 mg, 0.5, tablet, By Mouth, 3 times a day, # 12 tablet, Refills 0, Tot. Refills 0, Maintenance, 06/21/20 16:00:00 EST, Route to Pharmacy Electronically, [facility] #[id number], 149.9, cm, 06/21/20 13:54:00 EST, Height, 103.8, kg, 06/21/20 13:54:... Start Date: 06/21/20 Stop Date: 06/29/20 Status: Ordered docusate sodium 100 mg oral capsule See Instructions, # 60 Unknown, Refills 14 Tot. Refills 14, TAKE ONE CAPSULE BY MOUTH TWICE DAILY, [facility] Start Date: 04/24/19 Status: Ordered escitalopram 20 mg oral tablet 1 tablet = 20 mg, By Mouth, Daily, # 30 tablet, 5 Refills, Maintenance, 07/22/20 9:23:00 EST, Tablet, [facility] #[id number], 153, cm, 07/22/20 9:04:00 EST, Height, 106, kg, 07/08/20 13:49:00 EST, Dry Weight Start Date: 07/22/20 Stop Date: 01/18/21 Status: Ordered ferrous sulfate 325 mg oral enteric coated tablet 325 mg, 1, tablet, By Mouth, 2 times a day, # 180 tablet, Refills 1, Tot. Refills 1, Maintenance, 12/24/18 14:50:03 EDT, Route to Pharmacy Electronically, [id number], [facility] Start Date: 12/24/18 Stop Date: 06/22/19 Status: Ordered Flovent HFA 220 mcg/inh inhalation aerosol 2 puffs, Inhalation, 2 times a day, # 1 each, 6 Refills, Maintenance, 05/30/20 10:57:00 EDT, Aerosol, [facility] #[id number], 149.9, cm, 05/30/20 10:53:00 EDT, Height, 103.8, kg, 03/07/20 10:17:00 EDT, Dry Weight Start Date: 05/30/20 Stop Date: 12/26/20 Status: Ordered gabapentin 100 mg oral capsule 100 mg, 1, capsule, By Mouth, 2 times a day, BUBBLE PACK PLEASE, # 60 capsule, Refills 3, Tot. Refills 3, Maintenance, 07/22/20 9:24:00 EST, Route to Pharmacy Electronically, [facility] #[id number], 153, cm, 07/22/20 9:04:00 EST, Height, 106, kg,... Start Date: 07/22/20 Stop Date: 11/19/20 Status: Ordered levothyroxine 0.025 mg oral tablet 1 tablet, By Mouth, Daily, BUBBLE PACK PLEASE, # 30 tablet, 5 Refills, Maintenance, 07/22/20 9:24:00 EST, Tablet, [facility] #[id number], 153, cm, 07/22/20 9:04:00 EST, Height, 106, kg, 07/08/2013:49:00 EST, Dry Weight Start Date: 07/22/20 Stop Date: 01/18/21 Status: Ordered lisinopril 20 mg oral tablet 20 mg, 1, tablet, By Mouth, Daily, BUBBLE PACK PLEASE, # 30 tablet, Refills 5, Tot. Refills 5, Maintenance, 04/27/20 9:21:00 EDT, Route to Pharmacy Electronically, [facility] #[id number], 149.9,cm, 04/27/20 9:00:00 EDT, Height, 103.8, kg, 03/07/... Start Date: 04/27/20 Stop Date: 10/24/20 Status: Ordered LORazepam 1 mg oral tablet 1 tablet = 1 mg, By Mouth, Daily, PRN as needed for anxiety, # 30 tablet, 0 Refills, Maintenance, 07/22/20 9:23:00 EST, Tablet, [facility] #[id number], 153, cm, 07/22/20 9:04:00 EST, Height, 106, kg, 07/08/20 13:49:00 EST, Dry Weight Start Date: 07/22/20 Stop Date: 08/21/20 Status: Ordered nortriptyline 50 mg oral capsule 50 mg, 1, capsule, By Mouth, Daily, BUBBLE PACK PLEASE, # 30 capsule, Refills 6, Tot. Refills 6, Maintenance, 03/25/20 19:21:00 EDT, Route to Pharmacy Electronically, [facility] #[id number], 149.9, cm, 03/07/20 10:17:00 EDT, Height, 103.8, kg, 07... Start Date: 03/25/20 Stop Date: 10/21/20 Status: Ordered nystatin topical 365317 u/gm ointment 1 application, Topically, 3 times [...] 1 capsule = 20 mg, By Mouth, 2 times a day, BUBBLE PACK PLEASE, # 60 capsule, 3 Refills, Maintenance, 10/24/20 9:19:00 EDT, EC Capsule, [facility] #[id number], 149.9, cm, 06/14/20 14:58:00 EST, Height, 101, kg, 06/07/20 10:02:00 EDT, Dry Weight Start Date: 10/24/20 Stop Date: 02/21/21 Status: Ordered Singulair 10 mg oral tablet 10 mg, 1, tablet, By Mouth, Daily in PM, BUBBLE PACK PLEASE, # 30 tablet, Refills 5, Tot. Refills 5, Maintenance, 07/22/20 9:24:00 EST, Route to Pharmacy Electronically, [facility] #[id number], 153, cm, 07/22/20 9:04:00 EST, Height, 106, kg, 2... Start Date: 07/22/20 Stop Date: 01/18/21 Status: Ordered Xopenex HFA 45 mcg/inh inhalation [...] Active Constipated(Confirmed) Active Depression(Confirmed) Active Diabetes(Confirmed) Active Diarrhea(Confirmed) Active Dizziness(Confirmed) Active Dyspnea on exertion(Confirmed) Active [...] Active Numbness and tingling in hands(Confirmed) Active *[facility] [phone] CARE MANAG ER HELEN RENO(Confirmed) Active Rib pain on left side(Confirmed) Active Pain in right shoulder(Confirmed) Active Urge urinary incontinence(Confirmed) Active 1tx with apc today due to bleeding. 2normal PFT's 11/22/14 r/o COPD 3childhood onset 4possibly Type III 53+ 6s/p bilateral salpingo-oophrectomy Social History Social History Type Response Smoking Status Former smoker; Tobac co user in household: No; Type: Cigarettes; Stopped at age: 48; Tobacco use times per day: up to 2 ppd; Started at age: 16; entered on: 11/08/14 Sex
--- OUTSIDE RECORDS SUMMARY | 2023-03-06 14:42 | XMS_ITS | Continuity of Care Document ---
Author Name Unknown Organization [facility] Address [address] [place] [address]- Care Team Providers Care Ems Director Name Role Phone Rj STONE MILL OPERATOR, Winsome Weiss Primary Care Physician Encounter [facility] Date(s): 11/25/20 - 12/25/[address] [address] [place] Attending Physician: Dayana Orlando Admitting Physician: AdmtrDayana Referring Physician: Admtr, Ar8 Allergies, Adverse Reactions, Alerts Substance Reaction Severity Status penicillins gerd gi distress Headache Active aspirin hives unknown Persistent Mild Active Bee Stings anaphylaxis Persistent Severe Active Immunizations Given and Recorded Vaccine Date Status Refusal Reason SARS-CoV-2 (COVID-19) Ad26 vaccine 11/20/20 Given Zoster Vaccine Live 1 07/10/18 Recorded Zoster [...] 7 12/11/13 [facility] 1Result Comment: [07/11/2018] [facility] 2Result Comment: [11/11/2015] given at [facility] [address] [place] [address] [phone] 3Result Comment: [07/11/2018] [facility] 4Location History: [facility] 5Admin Note: given at [facility] in [place], [place] 6Location History: [facility] 7Admin Note: boostrix vis 12-28-2012 Medications albuterol [...] 06/21/20 16:00:00 EST, Route to Pharmacy Electronically, [facility] #[id number], 149.9, cm, 06/21/20 13:54:00 EST, Height, 103.8, kg, 06/21/20 13:54:... Start Date: 06/21/20 Stop Date: 06/29/20 Status: Ordered Colace sodium 100 mg oral capsule 100 mg, 1, capsule, By Mouth, 2 times a day, BUBBLE PACK PLEASE, # 180 capsule, Refills 1, Tot. Refills 1, Maintenance, 11/08/20 17:06:00 EDT, Route to Pharmacy Electronically, [facility] #[id number], 152.4, cm, 11/07/20 7:59:00 EDT, Height, 100.... Start Date: 11/08/20 Stop Date: 05/07/21 Status: Ordered escitalopram 20 mg oral tablet 1 tablet = 20 mg, By Mouth, Daily, # 30 tablet, 5 Refills, Maintenance, 07/22/20 9:23:00 EST, Tablet, [facility] #[id number], 153, cm, 07/22/20 9:04:00 EST, Height, 106, kg, 07/08/20 13:49:00 EST, Dry Weight Start Date: 07/22/20 Stop Date: 01/18/21 Status: Ordered ferrous sulfate 325 mg oral enteric coated tablet 325 mg, 1, tablet, By Mouth, 2 times a day, may take with food to minimize abdominal discomfort, # 180 tablet, Refills 1, Tot. Refills 1, Maintenance, 10/04/20 16:08:00 EST, Route to Pharmacy Electronically, [facility] #[id number], 150, cm, 09/26... Start Date: 10/04/20 Stop Date: 04/02/21 Status: Ordered Flovent HFA 220 mcg/inh inhalation aerosol 2 puffs, Inhalation, 2 times a day, # 1 each, 6 Refills, Maintenance, 11/08/20 17:06:00 EDT, Aerosol, [facility] #[id number], 152.4, cm, 11/07/20 7:59:00 EDT, Height, 100.2, kg, 11/07/20 7:59:00EDT, Dry Weight Start Date: 11/08/20 Stop Date: 06/06/21 Status: Ordered gabapentin 100 mg oral capsule 200 mg, 2, capsule, By Mouth, 3 times a day, # 180 capsule, Refills 1, Tot. Refills 1, Maintenance,09/14/20 15:22:00 EST, Route to Pharmacy Electronically, [facility] #[id number], Partial fill upon patient request if the prescription is for a sc... Start Date: 09/14/20 Status: Ordered Lasix 20 mg oral tablet See Instructions, 1 tablet By Mouth Daily, # 10 tablet, Refills 0, Tot. Refills 0, Maintenance, 11/13/20 22:27:00 EDT, Instructions Replace Required Details, Route to Pharmacy Electronically, [facility] #[id number], Partial fill upon patient requ... Start Date: 11/13/20 Status: Ordered levothyroxine 0.025 mg oral tablet 1 tablet, By Mouth, Daily, BUBBLE PACK PLEASE, # 30 tablet, 5 Refills, Maintenance, 07/22/20 9:24:00 EST, Tablet, [facility] #[id number], 153, cm, 07/22/20 9:04:00 EST, Height, 106, kg, 07/08/2013:49:00 EST, Dry Weight Start Date: 07/22/20 Stop Date: 01/18/21 Status: Ordered lisinopril 20 mg oral tablet 20 mg, 1, tablet, By Mouth, Daily, BUBBLE PACK PLEASE, # 30 tablet, Refills 5, Tot. Refills 5, Maintenance, 12/15/20 9:29:00 EDT, Route to Pharmacy Electronically, [facility] #[id number], 153, cm, 11/29/20 15:11:00 EDT, Height, 102.4, kg, ... Start Date: 12/15/20 Stop Date: 06/13/21 Status: Ordered LORazepam 1 mg oral tablet 1 tablet = 1 mg, By Mouth, Daily, PRN as needed for anxiety, # 30 tablet, 0 Refills, Maintenance, 12/15/20 9:28:00 EDT, Tablet, [facility] #[id number], 153, cm, 11/29/20 15:11:00 EDT, Height, 102.4, kg, 11/13/20 18:51:00 EDT, Dry Weight Start Date: 12/15/20 Stop Date: 01/14/21 Status: Ordered nadolol 20 mg oral tablet 20 mg, 1, tablet, By Mouth, Daily, # 60 tablet, Refills 3, Tot. Refills 3, Maintenance, 11/07/20 8:52:00 EDT, Print Requisition, Partial fill upon patient request if the prescription is for a schedule II opioid drug., 152.4, cm, 11/07/20 7:59:00 EDT,... Start Date: 11/07/20 Stop Date: 07/05/21 Status: Ordered nortriptyline 50 mg oral capsule 50 mg, 1, capsule, By Mouth, Daily, BUBBLE PACK PLEASE, # 30 capsule, Refills 6, Tot. Refills 6, Maintenance, 03/25/20 19:21:00 EDT, Route to Pharmacy Electronically, [facility] #[id number], 149.9, cm, 03/07/20 10:17:00 EDT, Height, 103.8, kg, 07... Start Date: 03/25/20 Stop Date: 10/21/20 Status: Ordered nystatin topical 491915 u/gm ointment 1 application, Topically, 3 times [...] mg, By Mouth, 2 times a day, for 30 days, BUBBLE PACK PLEASE, # 60 capsule, 3 Refills, Hard Stop 02/21/21 9:19:00 EDT, 10/24/20 9:19:00 EDT, EC Capsule, [facility] #[id number], 149.9, cm, 06/14/20 14:58:00 EST, Height, 101, kg, ... Start Date: 10/24/20 Stop Date: 02/21/21 Status: Ordered omeprazole 20 mg oral enteric coated capsule 1 capsule = 20 mg, By Mouth, 2 times a day, BUBBLE PACK PLEASE, # 60 capsule, 3 Refills, Maintenance, 12/22/20 9:44:00 EDT, EC Capsule, [facility] #[id number], 153, cm, 11/29/20 15:11:00 EDT, Height, 102.4, kg, 11/13/20 18:51:00 EDT, Dry Weight Start Date: 12/22/20 Stop Date: 04/21/21 Status: Ordered ProAir HFA 90 mcg/inh inhalation aerosol 2 puffs, Inhalation, 4 times a day, PRN Wheezing/Shortness of Breath, # 2 each, 3 Refills, Maintenance, 11/08/20 17:08:00 EDT, Aerosol, [facility] #[id number], Partial fill upon patient request if the prescription is for a schedule II opioid drug... Start Date: 11/08/20 Stop Date: 03/08/21 Status: Ordered Singulair 10 mg oral tablet 10 mg, 1, tablet, By Mouth, Daily in PM, BUBBLE PACK PLEASE, # 30 tablet, Refills 5, Tot. Refills 5, Maintenance, 07/22/20 9:24:00 EST, Route to Pharmacy Electronically, [facility] #[id number], 153, cm, 07/22/20 9:04:00 EST, Height, 106, [...] allergy(Confirmed) 5 11/08/14 Active Hypertension(Confirmed) 10/27/12 Active Gastric hyperplastic polyp(Confirmed) 11/21/20 Active Hypothyroidism(Confirmed) Active Impacted cerumen of both ears(Confirmed) Active IFG (impaired fasting glucose)(Confirmed) Active Fecal incontinence(Confirmed) Active Poor conditioning(Confirmed) Active Lumbar strain(Confirmed) Active Anxiety and depression(Confirmed) Active Mixed incontinence(Confirmed) Active Morbid obesity(Confirmed) Active Ovarian tumor of borderline malignancy(Confirmed) 6 Active Osteoporosis(Confirmed) Active Pancytopenia(Confirmed) 10/27/14 Active Numbness and tingling in hands(Confirmed) Active *[facility] [phone] CARE MANAG ER HELEN RENO(Confirmed) Active Pulmonary edema(Confirmed) Active Rib pain on left side(Confirmed) Active [...]
--- OUTSIDE RECORDS SUMMARY | 2023-03-06 14:42 | XMS_ITS | Continuity of Care Document ---
Author Name Unknown Organization [facility] Address [address] [place] [address]- Care Team Providers Care Database Architect Name Role Phone Rj HAMILTON, Winsome Weiss Primary Care Physician Encounter [facility] Date(s): 11/14/20 - 12/15/20 [facility] [address] [place] [address]- Attending Physician: Winsome De La Rosa NP [...] 7 12/11/13 [facility] 1Result Comment: [07/11/2018] [facility] 2Result Comment: [11/11/2015] given at [facility] [address] [place] [address] [phone] 3Result Comment: [07/11/2018] [facility] 5Admin Note: given at [facility] in [place], [place] 6Location History: [facility] 7Admin Note: boostrix vis 12-28-2012 Medications albuterol [...] 06/21/20 16:00:00 EST, Route to Pharmacy Electronically, [facility] #[id number], 149.9, cm, 06/21/20 13:54:00 EST, Height, 103.8, kg, 06/21/20 13:54:... Start Date: 06/21/20 Stop Date: 06/29/20 Status: Ordered Colace sodium 100 mg oral capsule 100 mg, 1, capsule, By Mouth, 2 times a day, BUBBLE PACK PLEASE, # 180 capsule, Refills 1, Tot. Refills 1, Maintenance, 11/08/20 17:06:00 EDT, Route to Pharmacy Electronically, [facility] #[id number], 152.4, cm, 11/07/20 7:59:00 EDT, Height, 100.... Start Date: 11/08/20 Stop Date: 05/07/21 Status: Ordered escitalopram 20 mg oral tablet 1 tablet = 20 mg, By Mouth, Daily, # 30 tablet, 5 Refills, Maintenance, 07/22/20 9:23:00 EST, Tablet, [facility] #[id number], 153, cm, 07/22/20 9:04:00 EST, Height, 106, kg, 07/08/20 13:49:00 EST, Dry Weight Start Date: 07/22/20 Stop Date: 01/18/21 Status: Ordered ferrous sulfate 325 mg oral enteric coated tablet 325 mg, 1, tablet, By Mouth, 2 times a day, may take with food to minimize abdominal discomfort, # 180 tablet, Refills 1, Tot. Refills 1, Maintenance, 10/04/20 16:08:00 EST, Route to Pharmacy Electronically, [facility] #[id number], 150, cm, 09/26... Start Date: 10/04/20 Stop Date: 04/02/21 Status: Ordered Flovent HFA 220 mcg/inh inhalation aerosol 2 puffs, Inhalation, 2 times a day, # 1 each, 6 Refills, Maintenance, 11/08/20 17:06:00 EDT, Aerosol, [facility] #[id number], 152.4, cm, 11/07/20 7:59:00 EDT, Height, 100.2, kg, 11/07/20 7:59:00EDT, Dry Weight Start Date: 11/08/20 Stop Date: 06/06/21 Status: Ordered gabapentin 100 mg oral capsule 200 mg, 2, capsule, By Mouth, 3 times a day, # 180 capsule, Refills 1, Tot. Refills 1, Maintenance,09/14/20 15:22:00 EST, Route to Pharmacy Electronically, [facility] #[id number], Partial fill upon patient request if the prescription is for a sc... Start Date: 09/14/20 Status: Ordered Lasix 20 mg oral tablet See Instructions, 1 tablet By Mouth Daily, # 10 tablet, Refills 0, Tot. Refills 0, Maintenance, 11/13/20 22:27:00 EDT, Instructions Replace Required Details, Route to Pharmacy Electronically, [facility] #[id number], Partial fill upon patient requ... Start Date: 11/13/20 Status: Ordered levothyroxine 0.025 mg oral tablet 1 tablet, By Mouth, Daily, BUBBLE PACK PLEASE, # 30 tablet, 5 Refills, Maintenance, 07/22/20 9:24:00 EST, Tablet, [facility] #[id number], 153, cm, 07/22/20 9:04:00 EST, Height, 106, kg, 07/08/2013:49:00 EST, Dry Weight Start Date: 07/22/20 Stop Date: 01/18/21 Status: Ordered lisinopril 20 mg oral tablet 20 mg, 1, tablet, By Mouth, Daily, BUBBLE PACK PLEASE, # 30 tablet, Refills 5, Tot. Refills 5, Maintenance, 12/15/20 9:29:00 EDT, Route to Pharmacy Electronically, [facility] #[id number], 153, cm, 11/29/20 15:11:00 EDT, Height, 102.4, kg, ... Start Date: 12/15/20 Stop Date: 06/13/21 Status: Ordered LORazepam 1 mg oral tablet 1 tablet = 1 mg, By Mouth, Daily, PRN as needed for anxiety, # 30 tablet, 0 Refills, Maintenance, 12/15/20 9:28:00 EDT, Tablet, [facility] #[id number], 153, cm, 11/29/20 15:11:00 EDT, Height, 102.4, [...] 03/25/20 19:21:00 EDT, Route to Pharmacy Electronically, [facility] #[id number], 149.9, cm, 03/07/20 10:17:00 EDT, Height, 103.8, kg, 07... Start Date: 03/25/20 Stop Date: 10/21/20 Status: Ordered nystatin topical 318998 u/gm ointment 1 application, Topically, 3 times [...] Refills, Maintenance, 10/24/20 9:19:00 EDT, EC Capsule, [facility] #[id number], 149.9, cm, 06/14/20 14:58:00 EST, Height, 101, kg, 06/07/20 10:02:00 EDT, Dry Weight Start Date: 10/24/20 Stop Date: 02/21/21 Status: Ordered ProAir HFA 90 mcg/inh inhalation aerosol 2 puffs, Inhalation, 4 times a day, PRN Wheezing/Shortness of Breath, # 2 each, 3 Refills, Maintenance, 11/08/20 17:08:00 EDT, Aerosol, [facility] #[id number], Partial fill upon patient request if the prescription is for a schedule II opioid drug... Start Date: 11/08/20 Stop Date: 03/08/21 Status: Ordered Singulair 10 mg oral tablet 10 mg, 1, tablet, By Mouth, Daily in PM, BUBBLE PACK PLEASE, # 30 tablet, Refills 5, Tot. Refills 5, Maintenance, 07/22/20 9:24:00 EST, Route to Pharmacy Electronically, [facility] #[id number], 153, cm, 07/22/20 9:04:00 EST, Height, 106, kg, 06/13... Start Date: 07/22/20 Stop Date: 01/18/21 Status: [...] Active Numbness and tingling in hands(Confirmed) Active *[facility] [phone] CARE MANAG ER HELEN ROWDY(Confirmed) Active Pulmonary edema(Confirmed) Active Rib pain on [...]
--- OUTSIDE RECORDS SUMMARY | 2023-03-06 14:42 | XMS_ITS | Continuity of Care Document ---
Author Name Unknown Organization [facility] Address [address] [place] [address], [address] [place] [address]- Care Team Providers Care Metal Melter Name Role Phone Rj RAILROAD CAR REPAIR SUPERVISOR, Winsome Weiss Primary Care Physician Encounter [facility] Date(s): 05/02/22 - 05/09/22 [facility] [address] [place] [address] Drive, [address] [place], [place] [address] Attending Physician: Not on Staff, Attending MD [...] 2Location History[facility] 3Admin Note: given at [facility] in [place], [place] 4Result Comment: [07/11/2018] [facility] 5Result Comment: [11/11/2015] given at [facility] [address] [place] [address] [phone] 6Location History: [facility] 7Admin Note: [facility] vis 12-28-2012 Medications Breo Ellipta 200 mcg-25 mcg/inh inhalation powder 1 puffs, Inhalation, Daily, # 1 each, 11 Refills, Maintenance, 12/20/21 15:11:00 EDT, Powder, [facility] #[id number], Partial fill upon patient request if the prescription is for a schedule II opioid drug., 1 puffs Inhalation Daily, 150, cm, 05/0... Start Date: 12/20/21 Status: Ordered calcium carbonate [...] 01/19/22 19:16:00 EDT, Route to Pharmacy Electronically, [facility] #[id number], Partial fill upon patientrequest if the prescription is for a schedule II op... Start Date: 01/19/22 Status: Ordered docusate sodium 100 mg oral capsule 100 mg, 1, capsule, By Mouth, Every 12 hours, PRN, # 60 capsule, Refills 0, Tot. Refills 0, Maintenance, Constipation, 05/07/22 19:59:00 EDT, Route to Pharmacy Electronically, [facility] #[id number], Partial fill upon patient request if the presc... Start Date: 05/07/22 Stop Date: 06/06/22 Status: Ordered docusate sodium 100 mg oral capsule TAKE 1 CAPSULE BY MOUTH TWICE DAILY NEEDED FOR CONSTIPATION Start Date: 02/20/22 Status: Ordered escitalopram 20 mg oral tablet 1 tablet = 20 mg, By Mouth, Daily, # 90 tablet, 0 Refills, Maintenance, 05/07/22 20:00:00 EDT, Tablet, [facility] #[id number], 150, cm, 05/02/22 15:04:00 EDT, Height, 98, kg, 03/07/22 19:54:00 EDT, Dry Weight Start Date: 05/07/22 Stop Date: 08/05/22 Status: Ordered ferrous sulfate 325 mg oral enteric coated tablet 325 mg, 1, tablet, By Mouth, 2 times a day, # 180 tablet, Refills 0, Tot. Refills 0, Maintenance, 05/03/22 16:52:00 EDT, Route to Pharmacy Electronically, [facility] #[id number], Partial fill upon patient request if the [...] 05/07/22 19:59:00 EDT, Route to Pharmacy Electronically, [facility] #[id number], Partial fill upon patient request if the prescription is for a sched... Start Date: 05/07/22 Stop Date: 08/05/22 Status: Ordered gabapentin 100 mg oral capsule 200 mg, 2, capsule, By Mouth, 3 times a day, 2 capsules to equal 200 mg three times a day., # 180 capsule, Refills 0, Tot. Refills 0, Maintenance, 05/07/22 19:56:00 EDT, Route to Pharmacy Electronically, [facility] #[id number], Partial fill upon... Start Date: 05/07/22 Status: [...] mL, 3 Refills, Maintenance, 11/29/21 21:45:00 EDT, [facility] #[id number], Partial fill upon patient request if the prescriptionis for a schedule II opioid drug., 150, cm, ... Start Date: 11/29/21 Status: Ordered levothyroxine 0.025 mg oral tablet 1 tablet, By Mouth, Daily, # 90 tablet, 1 Refills, Maintenance, 05/07/22 19:58:00 EDT, Tablet, [facility] #[id number], 150, cm, 05/02/22 15:04:00 EDT, Height, 98, [...] day, # 90 tablet, 0 Refills, Maintenance, 03/01/22 11:00:00 EDT, Tablet, [facility], Partial fill upon patient request if the prescription is for aschedule II opioid drug., 150, cm, 03/01/22 7:16:00... Start Date: 03/01/22 Stop Date: 03/31/22 Status: Ordered nitroglycerin 0.4 mg sublingual tablet 1 tablet = 0.4 mg, Sublingual, Every 5 minutes, PRN as needed for chest pain, not to exceed 3 doses/15 min--if pain persists, seek medical attention, # 30 tablet, 3 Refills, Maintenance, 04/05/21 13:22:00 EDT, Tablet, [facility] #[id number], Part... Start Date: 04/05/21 Stop Date: 08/03/21 Status: Ordered NovoLOG FlexPen 100 units/mL injectable solution See Instructions, Subcutaneous Infusion 3 times a day before meals. Sliding scale:: 150-200 2 [id number] 4 UNITS 300-350 6 UNITS, # 3 mL, 3 Refills, Maintenance, 12/01/21 11:54:00 EDT, [facility] #[id number], Partial fill upon patient requ... Start Date: [...] 01/19/22 13:52:00 EDT, Route to Pharmacy Electronically, [facility] #[id number], Partial fill upon patient request... Start Date: [...] 10/14/21 18:18:00 EST, Route to Pharmacy Electronically, [facility] #[id number],148.4, cm, 10/05/21 10:50:00 EST, Height, 104.5, kg... Start Date: 10/14/21 Stop Date: 04/12/22 Status: Ordered trospium 60 mg oral capsule, extended release 1 capsule = 60 mg, By Mouth, Daily in AM, # 90 capsule, 0 Refills, Maintenance, 04/04/22 8:37:00 EDT, [facility] #[id number], Partial fill upon patient request if the prescription is for a schedule II opioid drug., 150, cm, 03/07/22 19:54:00 EDT,... Start Date: 04/04/22 Status: Ordered Tylenol 325 mg oral tablet [...] 11 Refills, Maintenance, 03/15/22 10:32:00 EDT, Powder, [facility] #[id number], Partial fill upon patient request if the [...] Numbness and tingling in hands Confirmed Active *[facility] [phone] PSYCHOLOGIST SOCIAL HELEN RENO Confirmed Active Hepatitis C virus infection resolved after antiviral drug therapy Confirmed Active Portal hypertension with esophageal varices Confirmed Active Severe obesity Confirmed Active DM2 (diabetes mellitus, type 2) Confirmed Active Urge urinary incontinence Confirmed Active 1tx with apc today due to bleeding. 2possibly Type III 33+ 4s/p bilateral salpingo-oophrectomy Vital Signs Most recent to oldest [Reference Range]: 1 Height 150 cm (05/02/22 3:04 PM) Weight 98.0 kg (05/02/22 3:04 PM) Body Mass Index [18.5-24.99 kg/m2] 43.56 kg/m2 *>HHI* (05/02/22 3:04 PM) Social History Social History Type Response Smoking Status Former smoker; Tobac co user in household: No; Type: Cigarettes; Tobacco use times per day: up to 2 ppd; Started at age: 16; Stopped at age: 48; entered on: 11/08/14 Sex Patient Care team information Personnel Name: Winsome De La Rosa NP Address: Address: [address] [place] [address] [facility] [place], [place] [address]
--- OUTSIDE RECORDS SUMMARY | 2023-03-06 14:42 | XMS_ITS | Continuity of Care Document ---
Author Name Unknown Organization [facility] Address [address] [place] [id number]- Care Team Providers Care Capper Machine Operator Name Role Phone Rj DATABASE ADMINISTRATION MANAGER, Winsome M Primary Care Physician Encounter [facility] Date(s): 01/03/22 - [facility]02[facility] [address] [place] [phone] Allergies, Adverse Reactions, Alerts Substance Reaction Severity Status aspirin Hives hives unknown Mild Active penicillins gerd gi distress Headache [...] 12/11/13 Gi sukhi 1Result Comment: [07/11/2018] [facility] 2Location History: [facility] 3Admin Note: given at [facility] in [place], [place] 4Result Comment: [07/11/2018] [facility] 5Result Comment: [11/11/2015] given at [facility] [address] [place] [address] [phone] [facility] 7Admin Note: [facility] vis 12-28-2012 Medications albuterol 0.083% inhalation solution 3 mL = 2.5 mg, Inhalation, Every 6 hours, PRN Wheezing/Shortness of Breath, # 60 each, 6 Refills, Maintenance, 10/29/14 10:00:25, Solution Start Date: 10/29/14 Status: Ordered calcium carbonate 500 mg (200 [...] 01/19/22 19:16:00 EDT, Route to Pharmacy Electronically, [facility] #[id number], Partial fill upon patientrequest if the prescription is for a schedule II op... Start Date: 01/19/22 Status: Ordered escitalopram 20 mg oral tablet 1 tablet = 20 mg, By Mouth, Daily, # 90 tablet, 1 Refills, Maintenance, 11/29/21 7:27:00 EDT, Tablet, [facility] #[id number], 150, cm, 11/03/21 13:46:00 EDT, Height, 100.8, kg, 11/01/21 22:19:00EDT, Dry Weight Start Date: 11/29/21 Stop Date: 05/28/22 Status: Ordered furosemide 20 mg oral tablet 20 mg, 1, tablet, By Mouth, 2 times a day, # 180 tablet, Refills 1, Tot. Refills 1, Maintenance, 12/01/21 16:35:00 EDT, Route to Pharmacy Electronically, [facility] #[id number], Partial fill upon patient request if the prescription is for a sched... Start Date: 12/01/21 Stop Date: 05/30/22 Status: Ordered gabapentin 100 mg oral capsule 200 mg, 2, capsule, By Mouth, 3 times a day, 2 capsules to equal 200 mg three times a day., # 180 capsule, Refills 3, Tot. Refills 3, Maintenance, 12/05/21 20:30:00 EDT, Route to Pharmacy Electronically, [facility] #[id number], Partial fill upon... Start Date: 12/05/21 Status: Ordered Gas-X See Instructions, 2 tablets 2 times a day, 0 Refills, Maintenance, 01/19/22 12:35:00 EDT, Partial fill upon patient request if the prescription is for a schedule II opioid drug. Start Date: 01/19/22 Status: Ordered isosorbide mononitrate 30 mg oral tablet, extended release 30 mg, 1, tablet, By Mouth, Daily in AM, # 30 tablet, Refills 3, Tot. Refills 3, Maintenance, 04/06/21 12:52:00 EDT, Route to Pharmacy Electronically, [facility] #[id number], Partial fill upon patient request if the prescription is for a schedule... Start Date: 04/06/21 Status: Ordered Lantus Solostar Pen 100 units/mL subcutaneous solution = 15 units, Subcutaneous Infusion, Daily, with evening meal, # 15 mL, 3 Refills, Maintenance, 11/29/21 21:45:00 EDT, [facility] #[id number], Partial fill upon patient request if the prescriptionis for a schedule II opioid drug., 150, cm, ... Start Date: 11/29/21 Status: Ordered levothyroxine 0.025 mg oral tablet 1 tablet, By Mouth, Daily, # 90 tablet, 1 Refills, Maintenance, 11/29/21 7:27:00 EDT, Tablet, [facility] #[id number], 150, cm, 11/03/21 13:46:00 EDT, Height, 100.8, [...] opioid drug. Start Date: 11/03/21 Status: Ordered nitroglycerin 0.4 mg sublingual tablet 1 tablet = 0.4 mg, Sublingual, Every 5 minutes, PRN as needed for chest pain, not to exceed 3 doses/15 min--if pain persists, seek medical attention, # 30 tablet, 3 Refills, Maintenance, 04/05/21 13:22:00 EDT, Tablet, [facility] #[id number], Part... Start Date: 04/05/21 Stop Date: 08/03/21 Status: Ordered NovoLOG FlexPen 100 units/mL injectable solution See Instructions, Subcutaneous Infusion 3 times a day before meals. Sliding scale:: 150-200 2 [id number] 4 UNITS 300-350 6 UNITS, # 3 mL, 3 Refills, Maintenance, 12/01/21 11:54:00 EDT, [facility] #[id number], Partial fill upon patient requ... Start Date: [...] Dry Weight Start Date: 11/27/21 Status: Ordered oxyCODONE 5 mg oral tablet 5 mg, 1, tablet, By Mouth, 3 times a day, PRN, MassPat checked, # 10 tablet, Refills 0, Tot. Refills 0, Maintenance, Pain , Severe, 01/19/22 13:52:00 EDT, Route to Pharmacy Electronically, [facility] #[id number], Partial fill upon patient request... Start Date: 01/19/22 Stop Date: 01/22/22 Status: Ordered pantoprazole 40 mg oral delayed release tablet = 40 mg, By Mouth, 2 times a day, # 60 tablet, 3 Refills, Maintenance, 12/08/21 7:05:00 EDT, [facility] Tablet, 150, cm, 11/03/21 13:46:00 EDT, Height, 100.8, kg, 11/01/21 22:19:00 EDT, Dry Weight Start Date: 12/08/21 Stop Date: 04/07/22 Status: Ordered Senna 8.6 mg oral tablet [...] 10/14/21 18:18:00 EST, Route to Pharmacy Electronically, [facility] #[id number],148.4, cm, 10/05/21 10:50:00 EST, Height, 104.5, kg... Start Date: 10/14/21 Stop Date: 04/12/22 Status: Ordered spironolactone 100 mg oral tablet 100 mg, 1, tablet, By Mouth, Daily, # 90 tablet, Refills 1, Tot. Refills 1, Maintenance, 12/01/21 16:34:00 EDT, Route to Pharmacy Electronically, [facility] #[id number], Partial fill upon patient request if the prescription is for a schedule II o... Start Date: 12/01/21 Stop Date: 05/30/22 Status: Ordered Tylenol 325 mg oral tablet [...] 11 Refills, Maintenance, 01/06/21 14:47:00 EDT, Powder, [facility] #[id number], Partial fill upon patient request if the [...] Numbness and tingling in hands(Confirmed) Active *[facility] [phone] CARE MANAG ER HELEN RENO(Confirmed) Active Hepatitis C virus infection resolved after antiviral drug therapy(Confirmed) Active Portal hypertension with eso phageal varices(Confirmed) Active Severe obesity(Confirmed) Active DM2 (diabetes mellitus, type 2)(Confirmed) Active [...]
--- OUTSIDE RECORDS SUMMARY | 2023-03-06 14:42 | XMS_ITS | Continuity of Care Document ---
Author Name Unknown Organization [facility] Address [address] [place] [address]- Care Team Providers Care Cook Candy Name Role Phone Rj ASSEMBLER TYPE BAR AND SEGMENT, Winsome Weiss Primary Care Physician [facility] Date[facility]s): [facility]31[facility] [address], [place] [address] Attending Physician: Dayana Orlando Admitting Physician: AdmtrDayana [...] sukhi 1Result Comment: [07/11/2018] [facility] 3Admin Note: given at [facility] in [place] 4Result Comment: [07/11/2018] [facility] 5Result Comment: [11/11/2015] given at [facility] [address] [place] [address] [phone] 6Location History: [facility] 7Admin Note: [facility] 12-28-2012 Medications albuterol 0.083% inhalation solution 3 mL = 2.5 mg, Inhalation, Every 6 hours, PRN Wheezing/Shortness of Breath, # 60 each, 6 Refills, Maintenance, 10/29/14 10:00:25, Solution Start Date: 10/29/14 Status: Ordered escitalopram 20 mg oral tablet 1 tablet = 20 mg, By Mouth, Daily, # 90 tablet, 1 Refills, Maintenance, 11/29/21 7:27:00 EDT, Tablet, [facility] #[id number], 150, cm, 11/03/21 13:46:00 EDT, Height, 100.8, kg, 11/01/21 22:19:00EDT, Dry Weight Start Date: 11/29/21 Stop Date: 05/28/22 Status: Ordered furosemide 40 mg oral tablet [...] Maintenance,12/27/20 11:32:00 EDT, Route to Pharmacy Electronically, [facility] #[id number], Partial fill upon patient request if the prescription is for a sc... Start Date: 12/27/20 Status: Ordered Humalog Kwik Pen 100 units/mL subcutaneous injection See Instructions, 11/30/21@1155AM HUMALOG SLIDING SCALE 150-200 2 UNITS 250-300 4 UNITS 300-350 6 UNITS As needed with meals, # 3 mL, 6 Refills, Maintenance, 11/30/21 15:45:00 EDT, [facility] #[id number], Partial fill upon patient request if... Start Date: 11/30/21 Status: Ordered isosorbide mononitrate 30 mg oral tablet, extended release 30 mg, 1, tablet, By Mouth, Daily in AM, # 30 tablet, Refills 3, Tot. Refills 3, Maintenance, 04/06/21 12:52:00 EDT, Route to Pharmacy Electronically, [facility] #[id number], Partial fill upon patient request if the prescription is for a schedule... Start Date: 04/06/21 Status: Ordered Lantus Solostar Pen 100 units/mL subcutaneous solution = 15 units, Subcutaneous Infusion, Daily, with evening meal, # 15 mL, 3 Refills, Maintenance, 11/29/21 21:45:00 EDT, [facility] #[id number], Partial fill upon patient request if the prescriptionis for a schedule II opioid drug., 150, cm, ... Start Date: 11/29/21 Status: Ordered levothyroxine 0.025 mg oral tablet 1 tablet, By Mouth, Daily, # 90 tablet, 1 Refills, Maintenance, 11/29/21 7:27:00 EDT, Tablet, [facility] #[id number], 150, cm, 11/03/21 13:46:00 EDT, Height, 100.8, kg, 11/01/21 22:19:00 EDT, Dry Weight Start Date: 11/29/21 Stop Date: 05/28/22 Status: Ordered LORazepam 0.5 mg oral tablet 1 tablet = 0.5 mg, By Mouth, Daily, PRN Anxiety, # 24 tablet, 0 Refills, Maintenance, 11/29/21 7:28:00 EDT, Tablet, [facility] #[id number], 150, cm, 11/03/21 13:46:00 EDT, Height, 100.8, kg, 11/01/21 22:19:00 EDT, Dry Weight Start Date: 11/29/21 Status: Ordered magnesium oxide 400 mg oral tablet 1 tablet = 400 mg, By Mouth, 2 times a day, 0 Refills, Maintenance, 11/03/21 16:26:00 EDT, Tablet, Partial fill upon patient request if the prescription is for a schedule II opioid drug. Start Date: 11/03/21 Status: Ordered metoprolol 25 mg oral tablet, extended release 25 mg, 1, tablet, By Mouth, Daily, # 90 tablet, Refills 3, Tot. Refills 3, Maintenance, 10/03/21 16:04:00 EST, Route to Pharmacy Electronically, [facility] #[id number], Partial fill upon patientrequest if the prescription is for a schedule II op... Start Date: 10/03/21 Status: Ordered MiraLax Powder 1 pack/packet = [...] 3 Refills, Maintenance, 04/05/21 13:22:00 EDT, Tablet, [facility] #[id number], Part... Start Date: 04/05/21 Stop Date: 08/03/21 Status: Ordered OneTouch Verio Glucose Meter See [...] 10/14/21 18:18:00 EST, Route to Pharmacy Electronically, [facility] #[id number],148.4, cm, 10/05/21 10:50:00 EST, Height, 104.5, kg... Start Date: 10/14/21 Stop Date: 04/12/22 Status: Ordered spironolactone 25 mg oral tablet 100 mg, 4, tablet, By Mouth, Daily, Refills 0, Maintenance, 11/03/21 16:26:00 EDT, Partial fill upon patient request if the prescription is for a schedule II opioid drug. Start Date: 11/03/21 Status: Ordered umeclidinium 62.5 mcg/inh inhalation powder 1 inhalation = 62.5 mcg, Inhalation, Every 24 hours, doses should be taken at least 24 hours apart,# 30 each, 11 Refills, Maintenance, 01/06/21 14:47:00 EDT, Powder, [facility] #[id number], Partial fill upon patient request if the [...] and tingling in hands(Confirmed) Active *[facility] [phone] CARE MANAG ER HELEN RENO(Confirmed) Active Hepatitis [...]
--- OUTSIDE RECORDS SUMMARY | 2023-03-06 14:42 | XMS_ITS | Continuity of Care Document ---
Author Name Unknown Organization [facility] Address [address] [place] [address]- Care Team Providers Care Senior Back End Java Developer Name Role Phone Rj HAMILTON, Winsome Weiss Primary Care Physician Encounter [facility] Date(s): 09/19/21 - 10/19/21 [facility] [address] [place] [phone]- [place] Allergies, Adverse Reactions, Alerts Substance Reaction [...] sukhi 1Result Comment: [07/11/2018] [facility]yn 2Location History: [facility] 3Admin Note: given at [facility] in [place], [place] 4Result Comment: [07/11/2018] Gwendolyn 5Result Comment: [11/11/2015] given at [facility] [place] [id number] [place] [address] [phone] 6Location History: gwendolyn 7Admin Note: boostrix vis 12-28-2012 Medications albuterol 0.083% inhalation solution 3 mL = 2.5 mg, Inhalation, Every 6 hours, PRN Wheezing/Shortness of Breath, # 60 each, 6 Refills, Maintenance, 10/29/14 10:00:25, Solution Start Date: 10/29/14 Status: Ordered docusate sodium 100 mg oral capsule See Instructions, PRN, TAKE ONE CAPSULE BY MOUTH TWICE DAILY, # 60 capsule, Refills 3, Tot. Refills3, Soft Stop, as needed for constipation, 08/30/21 12:50:00 EST, Instructions Replace Required Details, Route to Pharmacy Electronically, [facility]... Start Date: 08/30/21 Status: Ordered escitalopram 20 mg oral tablet 1 tablet = 20 mg, By Mouth, Daily, # 90 tablet, 1 Refills, Maintenance, 07/12/21 7:37:00 EST, Tablet, [facility] #15165, 148.4, cm, 06/01/21 8:57:00 EDT, Height, 97.3, kg, 06/01/21 8:57:00 EDT, Dry Weight Start Date: 07/12/21 Stop Date: 01/08/22 Status: Ordered gabapentin 100 mg oral capsule 200 mg, 2, capsule, By Mouth, 3 times a day, # 180 capsule, Refills 3, Tot. Refills 3, Maintenance,12/27/20 11:32:00 EDT, Route to Pharmacy Electronically, [facility] #12745, Partial fill upon patient request if the prescription is for a sc... Start Date: 12/27/20 Status: Ordered isosorbide mononitrate 30 mg oral tablet, extended release 30 mg, 1, tablet, By Mouth, Daily in AM, # 30 tablet, Refills 3, Tot. Refills 3, Maintenance, 04/06/21 12:52:00 EDT, Route to Pharmacy Electronically, [facility] #79129, Partial fill upon patient request if the prescription is for a schedule... Start Date: 04/06/21 Status: Ordered levothyroxine 0.025 mg oral tablet 1 tablet, By Mouth, Daily, BUBBLE PACK PLEASE, # 90 tablet, 1 Refills, Maintenance, 07/12/21 7:38:00 EST, Tablet, [facility] #[id number], 148.4, cm, 06/01/21 8:57:00 EDT, Height, 97.3, kg, 06/01/21 8:57:00 EDT, Dry Weight Start Date: 07/12/21 Stop Date: 01/08/22 Status: Ordered lisinopril 20 mg oral tablet 20 mg, 1, tablet, By Mouth, Daily, BUBBLE PACK PLEASE, # 90 tablet, Refills 1, Tot. Refills 1, Maintenance, 08/30/21 12:48:00 EST, Route to Pharmacy Electronically, [facility] #[id number], 148.4, cm, 08/15/21 9:27:00 EST, Height, 97.3, kg, 06/01/... Start Date: 08/30/21 Stop Date: 02/26/22 Status: Ordered LORazepam 1 mg oral tablet 1 tablet = 1 mg, By Mouth, Daily, PRN as needed for anxiety, covering provider, # 30 tablet, 0 Refills, Maintenance, 08/08/21 17:07:00 EST, Tablet, [facility] #[id number], 148.4, cm, 06/01/21 8:57:00 EDT, Height, 97.3, kg, 06/01/21 8:57:00 EDT, D... Start Date: 08/08/21 Stop Date: 09/07/21 Status: Ordered metoprolol 25 mg oral tablet, extended release 25 mg, 1, tablet, By Mouth, Daily, # 90 tablet, Refills 3, Tot. Refills 3, Maintenance, 10/03/21 16:04:00 EST, Route to Pharmacy Electronically, [facility] #[id number], Partial fill upon patientrequest if the prescription is for a schedule II op... Start Date: 10/03/21 Status: Ordered nitroglycerin 0.4 mg sublingual tablet 1 tablet = 0.4 mg, Sublingual, Every 5 minutes, PRN as needed for chest pain, not to exceed 3 doses/15 min--if pain persists, seek medical attention, # 30 tablet, 3 Refills, Maintenance, 04/05/21 13:22:00 EDT, Tablet, [facility] #64328, Part... Start Date: 04/05/21 Stop Date: 08/03/21 Status: Ordered nortriptyline 50 mg oral capsule 50 mg, 1, capsule, By Mouth, Daily, # 90 capsule, Refills 1, Tot. Refills 1, Maintenance, 07/12/21 7:37:00 EST, Route to Pharmacy Electronically, [facility] #19998, 148.4, cm, 06/01/21 8:57:00 EDT, Height, 97.3, kg, 06/01/21 8:57:00 EDT, Dry... Start Date: 07/12/21 Stop Date: 01/08/22 Status: Ordered omeprazole 20 mg oral enteric coated capsule 1 capsule = 20 mg, By Mouth, 2 times a day, BUBBLE PACK PLEASE, # 60 capsule, 3 Refills, Maintenance, 08/24/21 9:30:00 EST, EC Capsule, [facility] #17126, 148.4, cm, 08/15/21 9:27:00 EST, Height, 97.3, kg, 06/01/21 8:57:00 EDT, Dry Weight Start Date: 08/24/21 Stop Date: 12/22/21 Status: Ordered Singulair 10 mg oral tablet 10 mg, 1, tablet, By Mouth, Daily in PM, BUBBLE PACK PLEASE, # 30 tablet, Refills 5, Tot. Refills 5, Maintenance, 10/14/21 18:18:00 EST, Route to Pharmacy Electronically, [facility] #32337,148.4, cm, 10/05/21 10:50:00 EST, Height, 104.5, kg... Start Date: 10/14/21 Stop Date: 04/12/22 Status: Ordered trospium 60 mg oral capsule, extended release 1 capsule = 60 mg, By Mouth, Daily, # 30 capsule, 5 Refills, Maintenance, 09/29/21 15:29:00 EST, CRCapsule, [facility] #79013, Partial fill upon patient request if the prescription is for a schedule II opioid drug., 148.4, cm, 08/15/21 9:27... Start Date: 09/29/21 Status: Ordered umeclidinium 62.5 mcg/inh inhalation powder 1 inhalation = 62.5 mcg, Inhalation, Every 24 hours, doses should be taken at least 24 hours apart,# 30 each, 11 Refills, Maintenance, 01/06/21 14:47:00 EDT, Powder, [facility] #[id number], Partial fill upon patient request if the prescription i... Start Date: 01/06/21 Status: Ordered Vitamin E By Mouth, Daily, 0 Refills, Maintenance, 02/14/21 7:13:00 EDT, Partial fill upon patient request ifthe prescription is for a schedule II opioid drug. Start Date: 02/14/21 Status: Ordered Xopenex HFA 45 mcg/inh inhalation [...] 2011 Active Chronic female pelvic pain(Confirmed) Active Chronic rhinitis(Confirmed) Active Cirrhosis of liver(Confirmed) Active Constipated(Confirmed) Active Constipation(Confirmed) Active Decompensated cirrhosis rela charlotte to hepatitis C virus (HCV)(Confirmed) Active Depression(Confirmed) Active Diabetes(Confirmed) Active Diarrhea(Confirmed) Active Dizziness(Confirmed) Active Dyspnea on exertion(Confirmed) Active Easy bruising(Confirmed) Active Bilateral leg edema(Confirmed) Active Esophageal varices determine d by endoscopy(Confirmed) 05/22/18 Active Abdominal pain, generalized(Confirmed) Active Generalized anxiety disorder(Confirmed) Active GERD - Gastro-esophageal ref lux disease(Confirmed) Active H/O headache(Confirmed) Active Status post bilateral salpingo-oophorectomy(Confirmed) Active Ascites of liver(Confirmed) Active POP-Q stage 2 rectocele(Confirmed) Active Status post fall(Confirmed) Active Mite allergy(Confirmed) 5 11/08/14 Active Hypertension(Confirmed) 10/27/12 Active HTN (hypertension)(Confirmed) Active Gastric hyperplastic polyp(Confirmed) 11/21/20 Active Hypothyroidism(Confirmed) Active Impacted cerumen of both ears(Confirmed) Active IFG (impaired fasting glucose)(Confirmed) Active Fecal incontinence(Confirmed) Active Poor conditioning(Confirmed) Active Lumbar strain(Confirmed) Active Anxiety and depression(Confirmed) Active Mixed incontinence(Confirmed) Active Morbid obesity(Confirmed) Active Ovarian tumor of borderline malignancy(Confirmed) 6 Active Osteoporosis(Confirmed) Active Pancytopenia(Confirmed) 10/27/14 Active Numbness and tingling in hands(Confirmed) Active *[facility] [phone] CARE MANAG ER HELEN RENO(Confirmed) Active Pulmonary edema(Confirmed) Active Rib pain on left side(Confirmed) Active Severe obesity(Confirmed) Active Pain in right shoulder(Confirmed) Active DM2 (diabetes mellitus, type 2)(Confirmed) Active [...] at age: 48; entered on: 11/08/14 Sex Female
--- OUTSIDE RECORDS SUMMARY | 2023-03-06 14:43 | XMS_ITS | Continuity of Care Document ---
Author Name Unknown Organization [facility] Address [address] [address]- Care Team Providers Care Brush Material Preparer Name Role Phone Rj ACCOUNT ADJUSTER, Winsome eWiss Primary Care Physician [phone] Encounter [facility] Date(s): 07/27/19 - 08/06/[address] [address]- [facility] Attending Physician: AdmDayana nolan Admitting Physician: Admtr, Ar8 Referring Physician: Admtr, Ar8 Allergies, Adverse Reactions, [...] [07/11/2018] [facility] 2Result Comment: [11/11/2015] given at [place] [address] [place] [address] [phone] 3Result Comment: [07/11/2018] [facility] 5Admin Note: given at [facility] in [place], [place] 6Location History[facility] 7Admin Note: boostrix vis 12-28-2012 Medications albuterol 0.083% inhalation solution 3 mL = 2.5 mg, Inhalation, Every 6 hours, PRN Wheezing/Shortness of Breath, # 60 each, 6 Refills, Maintenance, 10/29/14 10:00:25, Solution Start Date: 10/29/14 Status: Ordered Colace sodium 100 mg oral capsule 100 mg, 1, capsule, By Mouth, 2 times a day, # 180 capsule, Refills 1, Tot. Refills 1, Maintenance,12/24/18 14:50:42 EDT, Route to Pharmacy Electronically, [facility]DP[id number], [facility] Start Date: 12/24/18 Stop Date: 06/22/19 Status: Ordered docusate sodium 100 mg oral capsule See Instructions, # 60 Unknown, Refills 14 Tot. Refills 14, TAKE ONE CAPSULE BY MOUTH TWICE DAILY, [facility] Start Date: 04/24/19 Status: Ordered escitalopram 10 mg oral tablet 1 tablet = 10 mg, By Mouth, Daily, # 30 tablet, 6 Refills, Maintenance, 04/17/19 9:19:26 EDT, Tablet Start Date: 04/17/19 Status: Ordered FeroSul 325 mg oral tablet See Instructions, TAKE ONE TABLET BY MOUTH TWICE DAILY, # 60 Unknown, 3 Refills, Soft Stop, 06/30/19 12:33:05 EST Start Date: 06/30/19 Status: Ordered ferrous sulfate 325 mg oral enteric coated tablet 325 mg, 1, tablet, By Mouth, 2 times a day, # 180 tablet, Refills 1, Tot. Refills 1, Maintenance, 12/24/18 14:50:03 EDT, Route to Pharmacy Electronically, [id number], [facility] Start Date: 12/24/18 Stop Date: 06/22/19 Status: Ordered Flovent HFA 220 mcg/inh inhalation aerosol 2 puffs, Inhalation, 2 times a day, # 1 each, 6 Refills, Maintenance, 09/24/17 16:24:21, Aerosol Start Date: 09/24/17 Stop Date: 04/22/18 Status: Ordered gabapentin 100 mg oral capsule 100 mg, 1, capsule, By Mouth, 2 times a day, # 60 capsule, Refills 3, Tot. Refills 3, Maintenance, 12/04/17 16:24:00 EDT, Route to Pharmacy Electronically, [id number], [id number] Start Date: 12/04/17 Stop Date: 04/03/18 Status: Ordered levothyroxine 0.025 mg oral tablet 1 tablet, By Mouth, Daily, # 90 tablet, 3 Refills, Maintenance, 05/13/17 13:17:05, Tablet Start Date: 05/13/17 Stop Date: 05/08/18 Status: Ordered lisinopril 20 mg oral tablet 20 mg, 1, tablet, By Mouth, Daily, # 90 tablet, Refills 1, Tot. Refills 1, Maintenance, 06/30/19 12:32:13 EST, Route to Pharmacy Electronically, [id number], [facility] #[id number] Start Date: 06/30/19 Stop Date: 12/27/19 Status: Ordered LORazepam 1 mg oral tablet 1 tablet = 1 mg, By Mouth, Daily, PRN as needed for anxiety, # 30 tablet, 0 Refills, Maintenance, 07/12/19 14:44:33 EST, Tablet Start Date: 07/12/19 Stop Date: 08/11/19 Status: Ordered nortriptyline 50 mg oral capsule 50 mg, 1, capsule, By Mouth, Daily, # 30 capsule, Refills 3, Tot. Refills 3, Maintenance, 12/04/17 16:24:02 EDT, Route to Pharmacy Electronically, [id number], [id number] Start Date: 12/04/17 Stop Date: 04/03/18 Status: Ordered nystatin topical 990229 u/gm ointment 1 application, Topically, 3 times [...] capsule = 20 mg, By Mouth, Daily, # 30 capsule, 3 Refills, Maintenance, 08/13/17 11:05:37, EC Capsule Start Date: 08/13/17 Status: Ordered Singulair 10 mg oral tablet 10 mg, 1, tablet, By Mouth, Daily in PM, # 90 tablet, Refills 3, Tot. Refills 3, Maintenance, 12/28/16 8:24:40, Route to Pharmacy Electronically, [id number], [id number] Start Date: 12/28/16 Status: Ordered Spiriva Respimat 1.25 mcg/inh inhalation [...] Active Numbness and tingling in hands(Confirmed) Active *[facility] [phone] CARE MANAG ER HELEN RENO(Confirmed) Active Rib [...]
--- OUTSIDE RECORDS SUMMARY | 2023-03-06 14:43 | XMS_ITS | Continuity of Care Document ---
Author Name Unknown Organization [facility] Maik Hernandez n's [facility] Address [address] [place] [address]- Care Team Providers Care Respiratory Care Assistant Name Role Phone Rj REHABILITATION ENGINEER, Winsome Weiss Primary Care Physician [facility]counter [facility] Date(s): 04/04/22 - 05/04/22 [facility] [employer] [facility] [address] [place] [address]- Allergies, Adverse Reactions, Alerts Substance Reaction Severity [...] 2Location History[facility] 3Admin Note: given at [facility] in [place], [place] 4Result Comment: [07/11/2018] [facility] 5Result Comment: [11/11/2015] given at [facility] [address] [place] [address] [phone] 6Location History: [facility] 7Admin Note: boostrix vis 12-28-2012 Medications Breo Ellipta 200 mcg-25 mcg/inh inhalation powder 1 puffs, Inhalation, Daily, # 1 each, 11 Refills, Maintenance, 12/20/21 15:11:00 EDT, Powder, [facility] #[id number], Partial fill upon patient request if the [...] 01/19/22 19:16:00 EDT, Route to Pharmacy Electronically, [facility] #[id number], Partial fill upon patientrequest if the prescription is for a schedule II op... Start Date: 01/19/22 Status: Ordered docusate sodium 100 mg oral capsule 100 mg, 1, capsule, By Mouth, Every 12 hours, PRN, # 60 capsule, Refills 0, Tot. Refills 0, Maintenance, Constipation, 04/23/22 16:44:00 EDT, Route to Pharmacy Electronically, [facility] #[id number], Partial fill upon patient request if the presc... Start Date: 04/23/22 Stop Date: 05/23/22 Status: Ordered docusate sodium 100 mg oral capsule TAKE 1 CAPSULE BY MOUTH TWICE DAILY NEEDED FOR CONSTIPATION Start Date: 02/20/22 Status: Ordered escitalopram 20 mg oral tablet 1 tablet = 20 mg, By Mouth, Daily, # 90 tablet, 1 Refills, Maintenance, 11/29/21 7:27:00 EDT, Tablet, [facility] #[id number], 150, cm, 11/03/21 13:46:00 EDT, Height, 100.8, kg, 11/01/21 22:19:00EDT, Dry Weight Start Date: 11/29/21 Stop Date: 05/28/22 Status: Ordered ferrous sulfate 325 mg oral enteric coated tablet 325 mg, 1, tablet, By Mouth, 2 times a day, # 180 tablet, Refills 0, Tot. Refills 0, Maintenance, 05/03/22 16:52:00 EDT, Route to Pharmacy Electronically, [facility] #[id number], Partial fill upon patient request if the [...] 12/01/21 16:35:00 EDT, Route to Pharmacy Electronically, [facility] #[id number], Partial fill upon patient request if the prescription is for a sched... Start Date: 12/01/21 Stop Date: 05/30/22 Status: Ordered gabapentin 100 mg oral capsule 200 mg, 2, capsule, By Mouth, 3 times a day, 2 capsules to equal 200 mg three times a day., # 180 capsule, Refills 3, Tot. Refills 3, Maintenance, 12/05/21 20:30:00 EDT, Route to Pharmacy Electronically, [facility] #[id number], Partial fill upon... Start Date: 12/05/21 Status: [...] mL, 3 Refills, Maintenance, 11/29/21 21:45:00 EDT, [facility] #[id number], Partial fill upon patient request if the prescriptionis for a schedule II opioid drug., 150, cm, ... Start Date: 11/29/21 Status: Ordered levothyroxine 0.025 mg oral tablet 1 tablet, By Mouth, Daily, # 90 tablet, 1 Refills, Maintenance, 11/29/21 7:27:00 EDT, Tablet, [facility] #[id number], 150, cm, 11/03/21 13:46:00 EDT, Height, 100.8, [...] 0 Refills, Maintenance, 03/01/22 11:00:00 EDT, Tablet, [facility] 3, Partial fill upon patient request [...] 3 Refills, Maintenance, 04/05/21 13:22:00 EDT, Tablet, [facility] #[id number], Part... Start Date: 04/05/21 Stop Date: 08/03/21 Status: Ordered NovoLOG FlexPen 100 units/mL injectable solution See Instructions, Subcutaneous Infusion 3 times a day before meals. Sliding scale:: 150-200 2 [id number] 4 UNITS 300-350 6 UNITS, # 3 mL, 3 Refills, Maintenance, 12/01/21 11:54:00 EDT, [facility] #[id number], Partial fill upon patient requ... Start Date: [...] 01/19/22 13:52:00 EDT, Route to Pharmacy Electronically, [facility] #[id number], Partial fill upon patient request... Start Date: [...] 10/14/21 18:18:00 EST, Route to Pharmacy Electronically, [facility] #[id number],148.4, cm, 10/05/21 10:50:00 EST, Height, 104.5, kg... Start Date: 10/14/21 Stop Date: 04/12/22 Status: Ordered trospium 60 mg oral capsule, extended release 1 capsule = 60 mg, By Mouth, Daily in AM, # 90 capsule, 0 Refills, Maintenance, 04/04/22 8:37:00 EDT, [facility] #[id number], Partial fill upon patient request if the [...] 11 Refills, Maintenance, 03/15/22 10:32:00 EDT, Powder, [facility] #[id number], Partial fill upon patient request if the [...] Active Numbness and tingling in hands(Confirmed) Active *[facility] [phone] CARE MANAG ER HELEN RENO(Confirmed) Active Hepatitis [...] at age: 16; entered on: 11/08/14 Sex Care Team Personnel Name: Winsome De La Rosa NP Address: [address] [place] [address]
--- OUTSIDE RECORDS SUMMARY | 2023-03-06 14:43 | XMS_ITS | Continuity of Care Document ---
Author Name Unknown Organization [facility] Address [address] [place] [address]- Care Team Providers Care Inspector Outside Steam Distribution Name Role Phone Winsome De La Rosa NP Primary Care Physician Encounter [facility] Date(s): 07[facility]22/20 [facility] [address] [place] [address]- Encounter Diagnosis Abdominal pain, generalized(Discharge Diagnosis) - 07/22/20 Diarrhea(Discharge Diagnosis) - 07/22/20 Attending Physician: Winsome De La Rosa NP [...] [07/11/2018] [facility] 2Result Comment: [11/11/2015] given at [facility] [address] [facility] [place], [place] [id number] 3Result Comment: [07/11/2018] [facility] 4Location History: [facility] 5Admin Note: given at [facility] in [place], [place] 6Location History: gwendolyn 7Admin Note: boostrix [...] 06/21/20 16:00:00 EST, Route to Pharmacy Electronically, [facility] #[id number], 149.9, cm, 06/21/20 13:54:00 EST, Height, 103.8, [...] 5 Refills, Maintenance, 07/22/20 9:23:00 EST, Tablet, [facility] #[id number], 153, cm, 07/22/20 9:04:00 EST, Height, 106, kg, 07/08/20 13:49:00 EST, Dry Weight Start Date: 07/22/20 Stop Date: 01/18/21 Status: Ordered ferrous sulfate 325 mg oral enteric coated tablet 325 mg, 1, tablet, By Mouth, 2 times a day, # 180 tablet, Refills 1, Tot. Refills 1, Maintenance, 12/24/18 14:50:03 EDT, Route to Pharmacy Electronically, ORPDP[facility][id number], [facility] Start Date: 12/24/18 Stop Date: 06/22/19 Status: Ordered Flovent HFA 220 mcg/inh inhalation aerosol 2 puffs, Inhalation, 2 times a day, # 1 each, 6 Refills, Maintenance, 05/30/20 10:57:00 EDT, Aerosol, [facility] #[id number], 149.9, cm, 05/30/20 10:53:00 EDT, Height, 103.8, kg, 03/07/20 10:17:00 EDT, Dry Weight Start Date: 05/30/20 Stop Date: 12/26/20 Status: Ordered gabapentin 100 mg oral capsule 100 mg, 1, capsule, By Mouth, 2 times a day, BUBBLE PACK PLEASE, # 60 capsule, Refills 3, Tot. Refills 3, Maintenance, 07/22/20 9:24:00 EST, Route to Pharmacy Electronically, [facility] #[id number], 153, cm, 07/22/20 9:04:00 EST, Height, 106, kg,... Start Date: 07/22/20 Stop Date: 11/19/20 Status: Ordered levothyroxine 0.025 mg oral tablet 1 tablet, By Mouth, Daily, BUBBLE PACK PLEASE, # 30 tablet, 5 Refills, Maintenance, 07/22/20 9:24:00 EST, Tablet, [facility] #[id number], 153, cm, 07/22/20 9:04:00 EST, Height, 106, kg, 07/08/2013:49:00 EST, Dry Weight Start Date: 07/22/20 Stop Date: 01/18/21 Status: Ordered lisinopril 20 mg oral tablet 20 mg, 1, tablet, By Mouth, Daily, BUBBLE PACK PLEASE, # 30 tablet, Refills 5, Tot. Refills 5, Maintenance, 04/27/20 9:21:00 EDT, Route to Pharmacy Electronically, [facility] #[id number], 149.9,cm, 04/27/20 9:00:00 EDT, Height, 103.8, kg, 03/07/... Start Date: 04/27/20 Stop Date: 10/24/20 Status: Ordered LORazepam 1 mg oral tablet 1 tablet = 1 mg, By Mouth, Daily, PRN as needed for anxiety, # 30 tablet, 0 Refills, Maintenance, 07/22/20 9:23:00 EST, Tablet, [facility] #[id number], 153, cm, 07/22/20 9:04:00 EST, Height, 106, kg, 07/08/20 13:49:00 EST, Dry Weight Start Date: 07/22/20 Stop Date: 08/21/20 Status: Ordered nortriptyline 50 mg oral capsule 50 mg, 1, capsule, By Mouth, Daily, BUBBLE PACK PLEASE, # 30 capsule, Refills 6, Tot. Refills 6, Maintenance, 03/25/20 19:21:00 EDT, Route to Pharmacy Electronically, [facility] #[id number], 149.9, cm, 03/07/20 10:17:00 EDT, Height, 103.8, kg, 07... Start Date: 03/25/20 Stop Date: 10/21/20 Status: Ordered nystatin topical 972402 u/gm ointment 1 application, Topically, 3 times [...] Refills, Maintenance, 10/24/20 9:19:00 EDT, EC Capsule, [facility] #[id number], 149.9, cm, 06/14/20 14:58:00 EST, Height, 101, kg, 06/07/20 10:02:00 EDT, Dry Weight Start Date: 10/24/20 Stop Date: 02/21/21 Status: Ordered Singulair 10 mg oral tablet 10 mg, 1, tablet, By Mouth, Daily in PM, BUBBLE PACK PLEASE, # 30 tablet, Refills 5, Tot. Refills 5, Maintenance, 07/22/20 9:24:00 EST, Route to Pharmacy Electronically, [facility] #[id number], 153, cm, 07/22/20 9:04:00 EST, Height, 106, [...] Numbness and tingling in hands(Confirmed) Active *[facility] [phone] CARE MANAG ER HELEN RENO(Confirmed) Active Rib pain on left side(Confirmed) Active Pain in right shoulder(Confirmed) Active Urge urinary incontinence(Confirmed) Active 1tx with apc today due to bleeding. 2normal PFT's 11/22/14 r/o COPD 3childhood onset 4possibly Type III 53+ 6s/p bilateral salpingo-oophrectomy Diagnosis Diagnosis Type Effective Dates Health Status Clinical Service Informant Abdominal pain, generalized Discharge Diagnosis 07/22/20 Diarrhea Discharge Diagnosis 07/22/20 Vital Signs Most recent to oldest [Reference Range]: 1 Height 153 cm (07/22/20 9:04 AM) Weight 105.1 kg (07/22/20 9:04 AM) Oxygen Saturation [94-100 %] 98 % (07/22/20 9:04 AM) Pulse Rate [55-90 bpm] 107 bpm *H* (07/22/20 9:04 AM) Body Mass Index [18.5-24.99] 44.9 *>HHI* (07/22/20 9:04 AM) Blood Pressure [90-138/55-84 mm Hg] 132/ 80mm Hg (07/22/20 9:04 AM) Respiratory Rate [16-30 br/min] 17 br/mi n (07/22/20 9:04 AM) Temperature [96.8-100.4 DegF] 98.4 DegF (07/22/20 9:04 AM) Liters per Minute 0 L/min (07/22/20 9:04 AM) Mode of Delivery (Oxygen) Room air (07/22/20 9:04 AM) Blood pressure sites Arm, left (07/22/20 9:04 AM) Temperature Route Temporal (07/22/20 9:04 AM) Weight Obtained Via Standing scale (07/22/20 9:04 AM) Social History Social History Type Response Smoking Status Former smoker; Tobac co user in household: No; Type: Cigarettes; Tobacco use times per day: up to 2 ppd; Started at age: 16; Stopped at age: 48; entered on: 11/08/14 Sex
--- OUTSIDE RECORDS SUMMARY | 2023-03-06 14:43 | XMS_ITS | Continuity of Care Document ---
Author Name Unknown Organization [facility] Maikmiller Hernandez n's [facility] Address [address] [place] [address]- Care Team Providers Care Gravity Manager Name Role Phone Rj HAMILTON, Winsome Weiss Primary Care Physician [phone] [id number] Date(s): 10/04/21 - 12/08/21 [facility] [address] [place], [place] [address] Attending Physician: Radha Gross MD Admitting Physician: Radha Gross MD Referring Physician: Winsome De La Rosa NP [...] sukhi 1Result Comment: [07/11/2018] Gwendolyn 2Location History: [facility] 3Admin Note: given at [facility] in [place] 4Result Comment: [07/11/2018] [facility] 5Result Comment: [11/11/2015] given at [facility] [address] [place] [address] [phone] 6[facility] 7Admin Note: boostrix vis 12-28-2012 Medications albuterol 0.083% inhalation solution 3 mL = 2.5 mg, Inhalation, Every 6 hours, PRN Wheezing/Shortness of Breath, # 60 each, 6 Refills, Maintenance, 10/29/14 10:00:25, Solution Start Date: 10/29/14 Status: Ordered escitalopram 20 mg oral tablet 1 tablet = 20 mg, By Mouth, Daily, # 90 tablet, 1 Refills, Maintenance, 11/29/21 7:27:00 EDT, Tablet, [facility] #[id number], 150, cm, 11/03/21 13:46:00 EDT, Height, 100.8, kg, 11/01/21 22:19:00EDT, Dry Weight Start Date: 11/29/21 Stop Date: 05/28/22 Status: Ordered furosemide 20 mg oral tablet 20 mg, 1, tablet, By Mouth, 2 times a day, # 180 tablet, Refills 1, Tot. Refills 1, Maintenance, 12/01/21 16:35:00 EDT, Route to Pharmacy Electronically, [facility] #[id number], Partial fill upon patient request if the [...] 12/05/21 20:30:00 EDT, Route to Pharmacy Electronically, [facility] #[id number], Partial fill upon... Start Date: 12/05/21 Status: Ordered gabapentin 100 mg oral capsule 200 mg, 2, capsule, By Mouth, 3 times a day, # 180 capsule, Refills 3, Tot. Refills 3, Maintenance,12/27/20 11:32:00 EDT, Route to Pharmacy Electronically, [facility] #[id number], Partial fill upon patient request if the prescription is for a sc... Start Date: 12/27/20 Status: Ordered isosorbide mononitrate 30 mg oral tablet, extended release 30 mg, 1, tablet, By Mouth, Daily in AM, # 30 tablet, Refills 3, Tot. Refills 3, Maintenance, 04/06/21 12:52:00 EDT, Route to Pharmacy Electronically, [facility] #[id number], Partial fill upon patient request if the prescription is for a schedule... Start Date: 04/06/21 Status: Ordered Lantus Solostar Pen 100 units/mL subcutaneous solution = 15 units, Subcutaneous Infusion, Daily, with evening meal, # 15 mL, 3 Refills, Maintenance, 11/29/21 21:45:00 EDT, [facility] #[id number], Partial fill upon patient request if the prescriptionis for a schedule II opioid drug., 150, cm, ... Start Date: 11/29/21 Status: Ordered levothyroxine 0.025 mg oral tablet 1 tablet, By Mouth, Daily, # 90 tablet, 1 Refills, Maintenance, 11/29/21 7:27:00 EDT, Tablet, [facility] #[id number], 150, cm, 11/03/21 13:46:00 EDT, Height, 100.8, kg, 11/01/21 22:19:00 EDT, Dry Weight Start Date: 11/29/21 Stop Date: 05/28/22 Status: Ordered LORazepam 0.5 mg oral tablet 1 tablet = 0.5 mg, By Mouth, Daily, PRN Anxiety, # 24 tablet, 0 Refills, Maintenance, 11/29/21 7:28:00 EDT, Tablet, [facility] #56554, 150, cm, 11/03/21 13:46:00 EDT, Height, 100.8, [...] 12/01/21 16:36:00 EDT, Route to Pharmacy Electronically, [facility] #[id number], Partial fill upon patientrequest if the prescription is for a schedule II op... Start Date: 12/01/21 Stop Date: 03/01/22 Status: Ordered nitroglycerin 0.4 mg sublingual tablet 1 tablet = 0.4 mg, Sublingual, Every 5 minutes, PRN as needed for chest pain, not to exceed 3 doses/15 min--if pain persists, seek medical attention, # 30 tablet, 3 Refills, Maintenance, 04/05/21 13:22:00 EDT, Tablet, [facility] #[id number], Part... Start Date: 04/05/21 Stop Date: 08/03/21 Status: Ordered NovoLOG FlexPen 100 units/mL injectable solution See Instructions, Subcutaneous Infusion 3 times a day before meals. Sliding scale:: 150-200 2 [id number] 4 UNITS 300-350 6 UNITS, # 3 mL, 3 Refills, Maintenance, 12/01/21 11:54:00 EDT, [facility] #[id number], Partial fill upon patient requ... Start Date: [...] 10/14/21 18:18:00 EST, Route to Pharmacy Electronically, [facility] #11808,148.4, cm, 10/05/21 10:50:00 EST, Height, 104.5, kg... Start Date: 10/14/21 Stop Date: 04/12/22 Status: Ordered spironolactone 100 mg oral tablet 100 mg, 1, tablet, By Mouth, Daily, # 90 tablet, Refills 1, Tot. Refills 1, Maintenance, 12/01/21 16:34:00 EDT, Route to Pharmacy Electronically, [facility] #[id number], Partial fill upon patient request if the prescription is for a schedule II o... Start Date: 12/01/21 Stop Date: 05/30/22 Status: Ordered umeclidinium 62.5 mcg/inh inhalation powder 1 inhalation = 62.5 mcg, Inhalation, Every 24 hours, doses should be taken at least 24 hours apart,# 30 each, 11 Refills, Maintenance, 01/06/21 14:47:00 EDT, Powder, [facility] #[id number], Partial fill upon patient request if the [...] Active Numbness and tingling in hands(Confirmed) Active *[facility] [phone] CARE MANAG ER HELEN ROWDY(Confirmed) Active Hepatitis [...]
--- OUTSIDE RECORDS SUMMARY | 2023-03-06 14:43 | XMS_ITS | Continuity of Care Document ---
Author Name Unknown Organization [facility] Maik Hernandez n's Group Address [address] [place] [address]- Care Team Providers Care Exhaust And Muffler Fitter Name Role Phone Rj HAMILTON, Winsome Weiss Primary Care Physician [place] [facility] Date(s): 09/29/19 - 11/21/19 [facility] [address] [place] [address]- Attending Physician: Radha Gross MD Admitting Physician: [...] [07/11/2018] Gwendolyn 2Result Comment: [11/11/2015] given at [facility] [address] [place], [place] [id number] 3Result Comment: [07/11/2018] [facility] 4Location History: [facility] 5Admin Note: given at [facility] in [place], [place] 6Location History: [facility] 7Admin Note: boostrix vis 12-28-2012 Medications albuterol [...] 10/21/19 14:37:00 EDT, Route to Pharmacy Electronically, [email or web address] #[id number], 149.9, cm, 08/10/19 9:46:00 EST, Height, 94.4... [...] 6 Refills, Maintenance, 10/21/19 14:37:00 EDT, Tablet, [email or web address] #49038, 149.9, cm, 08/10/19 9:46:00 EST, Height, 94.4, kg, 05/21/19 10:46:00 EDT, Dry Weight Start Date: 10/21/19 Status: Ordered FeroSul 325 mg oral tablet 1 tablet = 325 mg, By Mouth, 2 times a day, BUBBLE PACK PLEASE, # 60 tablet, 5 Refills, Soft Stop, 10/21/19 14:38:00 EDT, [email or web address] #98011, 149.9, cm, 08/10/19 9:46:00 EST, Height, 94.4, kg, 05/21/19 10:46:00 EDT, Dry Weight Start Date: 10/21/19 Stop Date: 04/18/20 Status: Ordered ferrous sulfate 325 mg oral enteric coated tablet 325 mg, 1, tablet, By Mouth, 2 times a day, # 180 tablet, Refills 1, Tot. Refills 1, Maintenance, 12/24/18 14:50:03 EDT, [email or web address] Start Date: 12/24/18 Stop Date: 06/22/19 [...] capsule, Refills 0, Tot. Refills 0, Maintenance, 10/21/19 14:39:00 EDT, Route to Pharmacy Electronically, [email or web address] #[id number], 149.9, cm, 08/10/19 9:46:00 EST, Height, 94.4,... Start Date: 10/21/19 Stop Date: 11/20/19 Status: Ordered levothyroxine 0.025 mg oral tablet 1 tablet, By Mouth, Daily, BUBBLE PACK PLEASE, # 30 tablet, 5 Refills, Maintenance, 10/21/19 14:40:00 EDT, Tablet, [email or web address] #74495, 149.9, cm, 08/10/19 9:46:00 EST, Height, 94.4, kg, 05/21/19 10:46:00 EDT, Dry Weight Start Date: 10/21/19 Stop Date: 04/18/20 Status: Ordered lisinopril 20 mg oral tablet 20 mg, 1, tablet, By Mouth, Daily, BUBBLE PACK PLEASE, # 30 tablet, Refills 5, Tot. Refills 5, Maintenance, 10/21/19 14:40:00 EDT, Route to Pharmacy Electronically, [email or web address] #78906, 149.9, cm, 08/10/19 9:46:00 EST, Height, 94.4, kg, ... Start Date: 10/21/19 Stop Date: 04/18/20 Status: Ordered LORazepam 1 mg oral tablet 1 tablet = 1 mg, By Mouth, Daily, PRN as needed for anxiety, # 30 tablet, 0 Refills, Maintenance, 11/16/19 15:28:00 EDT, Tablet, [email or web address] #77750, 149.9, cm, 08/10/19 9:46:00 EST, Height, 94.4, kg, 05/21/19 10:46:00 EDT, Dry Weight Start Date: 11/16/19 Stop Date: 12/16/19 Status: Ordered nortriptyline 50 mg oral capsule 50 mg, 1, capsule, By Mouth, Daily, BUBBLE PACK PLEASE, # 30 capsule, Refills 0, Tot. Refills 0, Maintenance, 10/21/19 14:42:00 EDT, Route to Pharmacy Electronically, [email or web address] #[id number], 149.9, cm, 08/10/19 9:46:00 EST, Height, 94.4, kg, 05/12... Start Date: 10/21/19 Stop Date: 11/20/19 Status: Ordered nystatin topical 162939 u/gm ointment 1 application, Topically, 3 times [...] Refills, Maintenance, 10/21/19 14:42:00 EDT, EC Capsule, [facility] #46982, 149.9, cm, 08/10/19 9:46:00 EST, Height, 94.4, kg, 05/21/19 10:46:00 EDT, Dry Weight Start Date: 10/21/19 Stop Date: 04/18/20 Status: Ordered Singulair 10 mg oral tablet 10 mg, 1, tablet, By Mouth, Daily in PM, BUBBLE PACK PLEASE, # 30 tablet, Refills 5, Tot. Refills 5, Maintenance, 10/21/19 14:41:00 EDT, [facility][id number],149.9, cm, 08/10/19 9:46:00 EST, Height, 94.4, kg,... [...] Active Numbness and tingling in hands(Confirmed) Active *[facility] [phone] CARE MANAG ER HELEN BOSEHerberth(Confirmed) Active Rib pain on left side(Confirmed) Active [...]
--- OUTSIDE RECORDS SUMMARY | 2023-03-06 14:43 | XMS_ITS | Continuity of Care Document ---
Author Name Unknown Organization [facility] ter Address [address] [place] [address]- Care Team Providers Care Financial Assistant Name Role Phone Rj IRRIGATION SYSTEM OPERATOR, Winsome M Primary Care Physician Encounter [facility] Date(s): 02/20/22 - 03/01/[address] [address]- Discharge Disposition: A-D/C Home Attending Physician: Shaila Billy MD Admitting Physician: Allen Avila MD Referring Physician: Not on Staff, Referring MD Allergies, Adverse Reactions, Alerts Substance Reaction [...] 4 07/10/18 Recorded Zoster Vaccine Live 5 3/30/16 Recorded Zoster Vaccine Live 08/19/12 Recorded zoster vaccine, inactivated 01/27/18 Recorded pneumococcal 13-valent vaccine 01/27/18 Recorded pneumococcal 23-valent vaccine 6 07/19/15 Recorded pneumococcal 23-valent vaccine 03/31/10 Given Tet/Diphth/Acel, Pertussis (oldterm) 7 12/11/13 Gi sukhi 1Result Comment: [07/11/2018] [facility] 2[facility] History[facility] 3Admin Note: given at [facility] in [place], [place] 4Result Comment: [07/11/2018] [facility] 5Result Comment: [11/11/2015] given at [facility] [address] [place], [place] [id number] 6Location History: [facility] 7Admin Note: boostrix vis 12-28-2012 Medications calcium carbonate 500 mg (200 mg elemental [...] 01/19/22 19:16:00 EDT, Route to Pharmacy Electronically, [facility] #[id number], Partial fill upon patientrequest if the prescription is for a schedule II op... Start Date: 01/19/22 Status: Ordered docusate sodium 100 mg oral capsule TAKE 1 CAPSULE BY MOUTH TWICE DAILY NEEDED FOR CONSTIPATION Start Date: 02/20/22 Status: Ordered escitalopram 20 mg oral tablet 1 tablet = 20 mg, By Mouth, Daily, # 90 tablet, 1 Refills, Maintenance, 11/29/21 7:27:00 EDT, Tablet, [facility] #[id number], 150, cm, 11/03/21 13:46:00 EDT, Height, 100.8, [...] 12/01/21 16:35:00 EDT, Route to Pharmacy Electronically, [facility] #86174, Partial fill upon patient request if the prescription is for a sched... Start Date: 12/01/21 Stop Date: 05/30/22 Status: Ordered gabapentin 100 mg oral capsule 200 mg, 2, capsule, By Mouth, 3 times a day, 2 capsules to equal 200 mg three times a day., # 180 capsule, Refills 3, Tot. Refills 3, Maintenance, 12/05/21 20:30:00 EDT, Route to Pharmacy Electronically, [facility] #[id number], Partial fill upon... Start Date: 12/05/21 Status: Ordered gabapentin 100 mg oral capsule 100 mg, Capsule, By Mouth, 03/01/22 9:00:00 EDT Start Date: 03/01/22 Stop Date: 03/01/22 Status: Completed Gas-X See Instructions, 2 tablets 2 times a day, 0 Refills, Maintenance, 01/19/22 12:35:00 EDT, Partial fill upon patient request if the prescription is for a schedule II opioid drug. Start Date: 01/19/22 Status: Ordered Lantus Solostar Pen 100 units/mL subcutaneous solution = 15 units, Subcutaneous Infusion, Daily, with evening meal, # 15 mL, 3 Refills, Maintenance, 11/29/21 21:45:00 EDT, [facility] #[id number], Partial fill upon patient request if the prescriptionis for a schedule II opioid drug., 150, cm, ... Start Date: 11/29/21 Status: Ordered levothyroxine 0.025 mg oral tablet 1 tablet, By Mouth, Daily, # 90 tablet, 1 Refills, Maintenance, 11/29/21 7:27:00 EDT, Tablet, [facility] #[id number], 150, cm, 11/03/21 13:46:00 EDT, Height, 100.8, [...] 0 Refills, Maintenance, 03/01/22 11:00:00 EDT, Tablet, [facility] 3, Partial fill upon patient request if the prescription is for aschedule II opioid drug., 150, cm, 03/01/22 7:16:00... Start Date: 03/01/22 Stop Date: 03/31/22 Status: Ordered midodrine 5 mg oral tablet 10 mg, Tablet, By Mouth, 02/28/22 21:00:00 EDT Start Date: 02/28/22 Stop Date: 02/28/22 Status: Completed nitroglycerin 0.4 mg sublingual tablet 1 tablet = 0.4 mg, Sublingual, Every 5 minutes, PRN as needed for chest pain, not to exceed 3 doses/15 min--if pain persists, seek medical attention, # 30 tablet, 3 Refills, Maintenance, 04/05/21 13:22:00 EDT, Tablet, [facility] #[id number], Part... Start Date: 04/05/21 Stop Date: 08/03/21 Status: Ordered NovoLOG FlexPen 100 units/mL injectable solution See Instructions, Subcutaneous Infusion 3 times a day before meals. Sliding scale:: 150-200 2 [id number] 4 UNITS 300-350 6 UNITS, # 3 mL, 3 Refills, Maintenance, 12/01/21 11:54:00 EDT, [facility] #[id number], Partial fill upon patient requ... Start Date: 12/01/21 Status: Ordered oxyCODONE 5 mg oral tablet 5 mg, 1, tablet, By Mouth, 3 times a day, PRN, MassPat checked, # 10 tablet, Refills 0, Tot. Refills 0, Maintenance, Pain , Severe, 01/19/22 13:52:00 EDT, Route to Pharmacy Electronically, [facility] #[id number], Partial fill upon patient request... Start Date: 01/19/22 Stop Date: 01/22/22 Status: Ordered oxyCODONE 5 mg oral tablet 2.5 mg, Tablet, By Mouth, 3 times a day, PRN for Pain , Severe, Routine, 02/20/22 21:50:00 EDT Start Date: 02/20/22 Stop Date: 03/01/22 Status: Discontinued pantoprazole 40 mg oral delayed release tablet = 40 mg, By Mouth, 2 times a day, # 60 tablet, 3 Refills, Maintenance, 12/08/21 7:05:00 EDT, EC Tablet, 150, cm, 11/03/21 13:46:00 EDT, Height, 100.8, kg, 11/01/21 22:19:00 EDT, Dry Weight Start Date: 12/08/21 Stop Date: 04/07/22 Status: Ordered Singulair 10 mg oral tablet 10 mg, 1, tablet, By Mouth, Daily in PM, BUBBLE PACK PLEASE, # 30 tablet, Refills 5, Tot. Refills 5, Maintenance, 10/14/21 18:18:00 EST, Route to Pharmacy Electronically, [facility] #[id number],148.4, cm, 10/05/21 10:50:00 EST, Height, 104.5, kg... Start Date: 10/14/21 Stop Date: 04/12/22 Status: Ordered Tylenol 325 mg oral tablet 650 mg, 2, tablet, By Mouth, Every 6 hours, PRN, JOHNOSN, fever, Refills 0, Maintenance, Pain , Mild, 12/22/21 11:12:00 EDT, Partial fill upon patient request if the prescription is for a schedule II opioid drug. Start Date: 12/22/21 Status: Ordered umeclidinium 62.5 mcg/inh inhalation powder 1 inhalation = 62.5 mcg, Inhalation, Every 24 hours, doses should be taken at least 24 hours apart,# 30 each, 11 Refills, Maintenance, 01/06/21 14:47:00 EDT, Powder, [facility] #[id number], Partial fill upon patient request if the [...] Numbness and tingling in hands(Confirmed) Active *[facility] [phone] CARE MANAG ER HELEN RENO(Confirmed) Active Hepatitis C virus infection resolved after antiviral drug therapy(Confirmed) Active Portal hypertension with eso phageal varices(Confirmed) Active Severe obesity(Confirmed) Active DM2 (diabetes mellitus, type 2)(Confirmed) Active Urge urinary incontinence(Confirmed) Active 1tx with apc today due to bleeding. 2possibly Type III 33+ 4s/p bilateral salpingo-oophrectomy Results Orders for Microbiology Reports Name Date Anaerobic Culture 02/22/22 Sterile Body Fluid Culture W/ Gram Smear 02/22/22 Blood Culture 02/20/22 Blood Culture #2 02/20/22 Microbiology Reports TEST:Anaerobic Culture STATUS:Auth (Verified) BODY SITE: SOURCE:BODY F COLLECTED DATE/TIME:02/22/22 3:30 PM Anaerobic Culture SPECIMEN DESCRIPTION : BODY FLUID PERITONEUM SPECIAL REQUESTS : NONE CULTURE : NO ANAEROBES ISOLATED REPORT STATUS : FINAL 02/27/2022 TEST:Sterile Fluid Culture STATUS:Auth (Verified) BODY SITE: SOURCE:ASCITI COLLECTED DATE/TIME:02/22/22 3:30 PM Sterile Fluid Culture SPECIMEN DESCRIPTION : ASCITIC FLUID SPECIAL REQUESTS : NONE GRAM STAIN : 4+ WHITE BLOOD CELLS NO ORGANISMS SEEN CULTURE : NO GROWTH 2 DAYS REPORT STATUS : FINAL 02/25/2022 TEST:Blood Culture STATUS:Auth (Verified) BODY SITE: SOURCE:Blood COLLECTED DATE/TIME:02/20/22 3:16 PM Blood Culture SPECIMEN DESCRIPTION : BLOOD NO SITE SPECIAL REQUESTS : NONE CULTURE : NO GROWTH 5 DAYS. REPORT STATUS : FINAL 02/25/2022 TEST:Blood Culture, Second Order STATUS:Auth (Verified) BODY SITE: SOURCE:Blood COLLECTED DATE/TIME:02/20/22 3:16 PM Blood Culture, Second Order SPECIMEN DESCRIPTION : BLOOD NO SITE SPECIAL REQUESTS : NONE CULTURE : NO GROWTH 5 DAYS. REPORT STATUS : FINAL 02/25/2022 Radiology Reports * Exam Date Time Procedure Performing Provider Status 02/20/22 1:16 PM Chest Portable Candie Hickey; Auth (V erified) Notes: (Chest Portable) Reason For Exam: Shortness of Breath RESULT: Chest Portable Chest Portable INDICATION: Hx of Present Illness: pt transported by AUTO PAINTER HELPER in house coming from outpatient paracentesis procedure, pt was hypotensive to begin with ut toward end of tap became 80s 50s, given 250cc bolus of NS upstairs, pt mentating well and a ox4, states she has been dizzy x1 week at home; Reason: Shortness of Breath; Clinical Question(s): CHF COMPARISON: 12/19/2021 FINDINGS: LINES AND TUBES: None. LUNGS AND PLEURA: There is fullness and ill-definition of the central vasculature with hazy perihilar opacities. There is more confluent opacities in the bilateral infrahilar regions. There is mild elevation of the right hemidiaphragm, stable. No effusion or pneumothorax. HEART, MEDIASTINUM AND MARIS: The cardiac silhouette remains enlarged. The mediastinal contours are within normal limits. BONES AND SOFT TISSUES: No acute abnormality. IMPRESSION: Findings may represent an early interstitial edema, however clinical correlation to exclude infection is advised. No pneumothorax or effusions. A critical result message ([place]) has been communicated via the [employer] system on 02/20/2022 5:35 PM, Message ID [id number]. WSN: [id number] Ordering Physician: Maggie Gomez Dictated By: Khloe Hussein MD Dictated Date/Time: 02/20/22 5:35 pm Reviewed By: Khloe Hussein MD Signed By: Khloe Hussein MD Signed Date/Time: 02/20/22 5:35 pm Transcribed By: RONNIE Transcribed Date/Time: 02/20/22 5:33 pm Vital Signs Most recent to oldest [Reference Range]: 1 2 3 4 Height 150 cm (03/01/22 7:00 AM) 150 cm (02/28/22 7:45 AM) 150 cm (02/28/22 3:45 AM) Oxygen Saturation [94-100 %] 96 % (03/01/22 7:00 AM) 100 % (03/01/22 2:00 AM) 99 % (02/28/22 7:00 PM) Pulse Rate [55-90 bpm] 85 bpm (03/01/22 7:00 AM) 91 bpm *H* (03/01/22 2:00 AM) 84 bpm (02/28/22 9:20 PM) Blood Pressure [90-138/55-84 mm Hg] 121/45mm Hg (03/01/22 7:00 AM) 152/62mm Hg *H* (03/01/22 2:00 AM) 111/39mm Hg (02/28/22 9:20 PM) Respiratory Rate [16-30 br/min] 18 br/min (03/01/22 8:17 AM) 18 br/min (03/01/22 8:17 AM) 18 br/min (03/01/22 7:18 AM) 18 br/min (03/01/22 7:18 AM) Temperature [96.8-100.4 DegF] 98.3 DegF (03/01/22 7:00 AM) 98.5 DegF (03/01/22 2:00 AM) 98.1 DegF (02/28/22 7:00 PM) Mode of Delivery (Oxygen) Room air (03/01/22 7:00 AM) Room air (03/01/22 2:00 AM) Room air (02/28/22 7:00 PM) Blood pressure sites Arm, right (03/01/22 2:00 AM) Arm, left (02/28/22 7:00 PM) Arm, left (02/28/22 7:45 AM) Temperature Route Oral (03/01/22 7:00 AM) Oral (03/01/22 2:00 AM) Oral (02/28/22 7:00 PM) Social History Social History Type Response Smoking Status Former smoker; Tobac co user in household: No; Type: Cigarettes; Stopped at age: 48; Tobacco use times per day: up to 2 ppd; Started at age: 16; entered on: 11/08/14 Sex
--- OUTSIDE RECORDS SUMMARY | 2023-03-06 14:43 | XMS_ITS | Continuity of Care Document ---
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 Date(s): 03/07/20 - 04/06/20 [facility] [address] [address]- [facility] Attending Physician: Admtr, Wilian8 Admitting Physician: Admtr, Ar8 Referring Physician: Admtr, [...] [07/11/2018] [facility] 2Result Comment: [11/11/2015] given at [facility] [address] [place] [address] 3Result Comment: [07/11/2018] [facility] 5Admin Note: given at [facility] in [place], [place] 6Location History[facility] 7Admin Note: boostrix vis 12-28-2012 Medications albuterol 0.083% inhalation solution 3 mL = 2.5 mg, Inhalation, Every 6 hours, PRN Wheezing/Shortness of Breath, # 60 each, 6 Refills, Maintenance, 10/29/14 10:00:25, Solution Start Date: 10/29/14 Status: Ordered clotrimazole 1% topical cream 1 application, Topically, 2 times a day, for 14 days, apply to affected area, # 24 Gm, 0 Refills, Acute 04/14/20 17:50:00 EDT, 03/31/20 17:50:00 EDT, Cream, [facility] #[id number], 1 applicationTopically 2 times a day,x14 days,Instr:apply to aff... Start Date: 03/31/20 Stop Date: 04/14/20 Status: Ordered Colace sodium 100 mg oral capsule 100 mg, 1, capsule, By Mouth, 2 times a day, for 90 days, BUBBLE PACK PLEASE, # 180 capsule, Refills 1, Tot. Refills 1, Hard Stop 09/11/20 14:44:00 EST, 03/15/20 14:44:00 EDT, Route to Pharmacy Electronically, [facility] #[id number], 149.9, cm, 0... Start Date: 03/15/20 Stop Date: 09/11/20 Status: Ordered Colace sodium 100 mg oral capsule 100 mg, 1, capsule, By Mouth, 2 times a day, BUBBLE PACK PLEASE, # 180 capsule, Refills 1, Tot. Refills 1, Maintenance, 04/18/20 14:37:00 EDT, Route to Pharmacy Electronically, [facility] #[id number], 149.9, cm, 03/07/20 10:17:00 EDT, Height, 103... [...] 2 Refills, Maintenance, 02/23/20 16:28:00 EDT, Tablet, [facility] #[id number], 149.9, cm, 02/23/20 13:20:00 EDT, Height, 94.4, kg, 05/21/19 10:46:00 EDT, Dry Weight Start Date: 02/23/20 Stop Date: 05/23/20 Status: Ordered FeroSul 325 mg oral tablet 1 tablet = 325 mg, By Mouth, 2 times a day, BUBBLE PACK PLEASE, # 60 tablet, 5 Refills, Soft Stop, 04/18/20 14:38:00 EDT, [facility] #31570, 149.9, cm, 03/07/20 10:17:00 EDT, Height, 103.8,kg, 03/07/20 10:17:00 EDT, Dry Weight Start Date: 04/18/20 Stop Date: 10/15/20 Status: Ordered FeroSul 325 mg oral tablet 1 tablet = 325 mg, By Mouth, 2 times a day, for 30 days, BUBBLE PACK PLEASE, # 60 tablet, 5 Refills, Hard Stop 04/18/20 14:38:00 EDT, 10/21/19 14:38:00 EDT, [facility] #[id number], 149.9, cm, 08/10/19 9:46:00 EST, Height, 94.4, kg, 05/21/19 10:46... Start Date: 10/21/19 Stop Date: 04/18/20 Status: Ordered ferrous sulfate 325 mg oral enteric coated tablet 325 mg, 1, tablet, By Mouth, 2 times a day, # 180 tablet, Refills 1, Tot. Refills 1, Maintenance, 12/24/18 14:50:03 EDT, Route to Pharmacy Electronically, [id number], [email or web address] Start Date: 12/24/18 Stop Date: 06/22/19 [...] 03/02/20 16:01:00 EDT, Route to Pharmacy Electronically, [facility] #[id number], 149.9, cm, 03/02/20 10:16:00 EDT, Height, 94.4... Start Date: 03/02/20 Stop Date: 04/01/20 Status: Ordered levothyroxine 0.025 mg oral tablet 1 tablet, By Mouth, Daily, BUBBLE PACK PLEASE, # 30 tablet, 5 Refills, Maintenance, 10/21/19 14:40:00 EDT, Tablet, [facility] #[id number], 149.9, cm, 08/10/19 9:46:00 EST, Height, 94.4, kg, 05/21/19 10:46:00 EDT, Dry Weight Start Date: 10/21/19 Stop Date: 04/18/20 Status: Ordered lisinopril 20 mg oral tablet 20 mg, 1, tablet, By Mouth, Daily, BUBBLE PACK PLEASE, # 30 tablet, Refills 5, Tot. Refills 5, Maintenance, 10/21/19 14:40:00 EDT, Route to Pharmacy Electronically, [facility] #[id number], 149.9, cm, 08/10/19 9:46:00 EST, Height, 94.4, kg, ... Start Date: 10/21/19 Stop Date: 04/18/20 Status: Ordered LORazepam 1 mg oral tablet 1 tablet = 1 mg, By Mouth, Daily, PRN as needed for anxiety, # 30 tablet, 0 Refills, Maintenance, 02/05/20 11:32:00 EDT, Tablet, [facility] #68861, 149.9, cm, 02/05/20 11:20:00 EDT, Height,94.4, kg, 05/21/19 10:46:00 EDT, Dry Weight Start Date: 02/05/20 Stop Date: 03/06/20 Status: Ordered nortriptyline 50 mg oral capsule 50 mg, 1, capsule, By Mouth, Daily, BUBBLE PACK PLEASE, # 30 capsule, Refills 6, Tot. Refills 6, Maintenance, 03/25/20 19:21:00 EDT, Route to Pharmacy Electronically, [facility] #[id number], 149.9, cm, 03/07/20 10:17:00 EDT, Height, 103.8, kg, 07... Start Date: 03/25/20 Stop Date: 10/21/20 Status: Ordered nystatin topical 448559 u/gm ointment 1 application, Topically, 3 times [...] Refills, Maintenance, 10/21/19 14:42:00 EDT, EC Capsule, [facility] #67062, 149.9, cm, 08/10/19 9:46:00 EST, Height, 94.4, kg, 05/21/19 10:46:00 EDT, Dry Weight Start Date: 10/21/19 Stop Date: 04/18/20 Status: Ordered Singulair 10 mg oral tablet 10 mg, 1, tablet, By Mouth, Daily in PM, BUBBLE PACK PLEASE, # 30 tablet, Refills 5, Tot. Refills 5, Maintenance, 03/02/20 16:02:00 EDT, Route to Pharmacy Electronically, [facility] #[id number],149.9, cm, 03/02/20 10:16:00 EDT, Height, 94.4, kg,... [...] Numbness and tingling in hands(Confirmed) Active *[facility] [phone] CARE MANAG ER HELEN RENO(Confirmed) Active Rib [...]
--- OUTSIDE RECORDS SUMMARY | 2023-03-06 14:43 | XMS_ITS | Continuity of Care Document ---
Author Name Unknown Organization [facility] Address [address] [place] [address] [address], [address] [place] [address]- Care Team Providers Care Lead Maintenance Technician Name Role Phone Rj SPIRAL BINDER, Winsome Weiss Primary Care Physician [phone] Encounter [facility] Date(s): 12/29/21 - 01/31/[address], [address] [place] [address]- Attending Physician: Not on Staff, Attending MD [...] [facility] 3Admin Note: given at [facility] in [place] 4Result Comment: [07/11/2018] [facility] 5Result Comment: [11/11/2015] given at [facility] [address] [place] [address] [phone] 6[facility] History[facility] 7Admin Note: boostrix vis [...] 01/19/22 19:16:00 EDT, Route to Pharmacy Electronically, [facility] #[id number], Partial fill upon patientrequest if the prescription is for a schedule II op... Start Date: 01/19/22 Status: Ordered escitalopram 20 mg oral tablet 1 tablet = 20 mg, By Mouth, Daily, # 90 tablet, 1 Refills, Maintenance, 11/29/21 7:27:00 EDT, Tablet, [facility] #[id number], 150, cm, 11/03/21 13:46:00 EDT, Height, 100.8, kg, 11/01/21 22:19:00EDT, Dry Weight Start Date: 11/29/21 Stop Date: 05/28/22 Status: Ordered furosemide 20 mg oral tablet 20 mg, 1, tablet, By Mouth, 2 times a day, # 180 tablet, Refills 1, Tot. Refills 1, Maintenance, 12/01/21 16:35:00 EDT, Route to Pharmacy Electronically, [facility] #[id number], Partial fill upon patient request if the prescription is for a sched... Start Date: 12/01/21 Stop Date: 05/30/22 Status: Ordered gabapentin 100 mg oral capsule 200 mg, 2, capsule, By Mouth, 3 times a day, 2 capsules to equal 200 mg three times a day., # 180 capsule, Refills 3, Tot. Refills 3, Maintenance, 12/05/21 20:30:00 EDT, Route to Pharmacy Electronically, [facility] #[id number], Partial fill upon... Start Date: 12/05/21 Status: [...] 04/06/21 12:52:00 EDT, Route to Pharmacy Electronically, [facility] #[id number], Partial fill upon patient request if the prescription is for a schedule... Start Date: 04/06/21 Status: Ordered Lantus Solostar Pen 100 units/mL subcutaneous solution = 15 units, Subcutaneous Infusion, Daily, with evening meal, # 15 mL, 3 Refills, Maintenance, 11/29/21 21:45:00 EDT, [facility][id number], Partial fill upon patient request if the prescriptionis for a schedule II opioid drug., 150, cm, ... Start Date: 11/29/21 Status: Ordered levothyroxine 0.025 mg oral tablet 1 tablet, By Mouth, Daily, # 90 tablet, 1 Refills, Maintenance, 11/29/21 7:27:00 EDT, Tablet, [facility] #46073, 150, cm, 11/03/21 13:46:00 EDT, Height, 100.8, [...] 3 Refills, Maintenance, 04/05/21 13:22:00 EDT, Tablet, [facility] #[id number], Part... Start Date: 04/05/21 Stop Date: 08/03/21 Status: Ordered NovoLOG FlexPen 100 units/mL injectable solution See Instructions, Subcutaneous Infusion 3 times a day before meals. Sliding scale:: 150-200 2 [id number] 4 UNITS 300-350 6 UNITS, # 3 mL, 3 Refills, Maintenance, 12/01/21 11:54:00 EDT, [facility] #[id number], Partial fill upon patient requ... Start Date: [...] 01/19/22 13:52:00 EDT, Route to Pharmacy Electronically, [facility] #[id number], Partial fill upon patient request... Start Date: [...] 10/14/21 18:18:00 EST, Route to Pharmacy Electronically, [facility] #[id number],148.4, cm, 10/05/21 10:50:00 EST, Height, 104.5, kg... Start Date: 10/14/21 Stop Date: 04/12/22 Status: Ordered spironolactone 100 mg oral tablet 100 mg, 1, tablet, By Mouth, Daily, # 90 tablet, Refills 1, Tot. Refills 1, Maintenance, 12/01/21 16:34:00 EDT, Route to Pharmacy Electronically, [facility][id number], Partial fill upon patient request if the [...] 11 Refills, Maintenance, 01/06/21 14:47:00 EDT, Powder, [facility] #96983, Partial fill upon patient request if the [...] Numbness and tingling in hands(Confirmed) Active *[facility] [phone] CARE MANAG ER HELEN ROWDY(Confirmed) Active Hepatitis [...]
--- OUTSIDE RECORDS SUMMARY | 2023-03-06 14:43 | XMS_ITS | Continuity of Care Document ---
Author Name Unknown Organization [facility] Address [address] [place] [address]- Care Team Providers Care Farm Laborer Name Role Phone Rj SEAFOOD PROCESS WORKER, Winsome M Primary Care Physician Encounter [facility] [place] Date(s): 08/30/21 - 09/06/21 [facility] [address] [place] [address]- Encounter Diagnosis Asthma(Discharge Diagnosis) - 08/30/21 Diabetes(Discharge Diagnosis) - 08/30/21 Constipation(Discharge Diagnosis) - 08/30/21 Depression(Discharge Diagnosis) - 08/30/21 Hypothyroidism(Discharge Diagnosis) - 08/30/21 Generalized anxiety disorder(Discharge Diagnosis) - 08/30/21 Attending Physician: Not on Staff, Attending MD Allergies, Adverse Reactions, Alerts Substance Reaction Severity Status penicillins gerd gi distress Headache Active aspirin hives unknown Persistent Mild Active Bee Stings anaphylaxis Persistent Severe Active Immunizations Given and Recorded Vaccine Date Status Refusal Reason SARS-CoV-2 (COVID-19) mRNA-1273 vaccine 06/21/21 R ecorded SARS-CoV-2 (COVID-19) Ad26 vaccine 11/20/20 Given influenza virus vaccine, inactivated 05/04/20 Anthony rded influenza virus vaccine, inactivated 1 07/10/18 Re corded influenza virus vaccine, inactivated 09/24/17 Give n influenza virus vaccine, inactivated 06/20/16 Give n influenza virus vaccine, inactivated 2 04/19/15 Re corded influenza virus vaccine, inactivated 3 05/17/14 Gi sukhi Zoster Vaccine Live 4 07/10/18 Recorded Zoster Vaccine Live 5 11/09/15 Recorded Zoster Vaccine Live 08/19/12 Recorded zoster vaccine, inactivated 01/27/18 Recorded pneumococcal 13-valent vaccine 01/27/18 Recorded pneumococcal 23-valent vaccine 6 07/19/15 Recorded pneumococcal 23-valent vaccine 03/31/10 Given Tet/Diphth/Acel, Pertussis (oldterm) 7 12/11/13 Gi sukhi 1Result Comment: [07/11/2018] [facility] 3Admin Note: given at [facility] in [place] 4Result Comment: [07/11/2018] [facility] 5Result Comment: [11/11/2015] given at [facility] [address] [place] [address] [phone] 6[facility] History[facility] 7Admin Note: boostrix vis 12-28-2012 Medications albuterol 0.083% inhalation solution 3 mL = 2.5 mg, Inhalation, Every 6 hours, PRN Wheezing/Shortness of Breath, # 60 each, 6 Refills, Maintenance, 10/29/14 10:00:25, Solution Start Date: 10/29/14 Status: Ordered azelastine 137 mcg/inh (0.1%) nasal spray 2 sprays, Nares, Both, Daily, PRN Other Allergies, # 30 mL, 11 Refills, Maintenance, 01/06/21 14:51:00 EDT, [place], [facility] #[id number], Partial fill upon patient request if the prescriptionis for a schedule II opioid drug., 2 sprays Nares,... Start Date: 01/06/21 Status: Ordered dicyclomine 10 mg oral capsule 1 capsule = 10 mg, By Mouth, 4 times a day, PRN Pain , Moderate, # 28 capsule, 0 Refills, Maintenance, 05/11/21 15:51:00 EDT, Capsule, [facility] #[id number], Partial fill upon patient request if the prescription is for a schedule II opioid drug.... Start Date: 05/11/21 Stop Date: 05/18/21 Status: Ordered docusate sodium 100 mg oral capsule See Instructions, PRN, TAKE ONE CAPSULE BY MOUTH TWICE DAILY, # 60 capsule, Refills 3, Tot. Refills3, Soft Stop, as needed for constipation, 08/30/21 12:50:00 EST, Instructions Replace Required Details, Route to Pharmacy Electronically, [facility] Start Date: 08/30/21 Status: Ordered escitalopram 20 mg oral tablet 1 tablet = 20 mg, By Mouth, Daily, # 90 tablet, 1 Refills, Maintenance, 07/12/21 7:37:00 EST, Tablet, [facility] #[id number], 148.4, cm, 06/01/21 8:57:00 EDT, Height, 97.3, kg, 06/01/21 8:57:00 EDT, Dry Weight Start Date: 07/12/21 Stop Date: 01/08/22 Status: Ordered ferrous sulfate 325 mg oral enteric coated tablet 325 mg, 1, tablet, By Mouth, 2 times a day, may take with food to minimize abdominal discomfort, # 180 tablet, Refills 1, Tot. Refills 1, Maintenance, 07/12/21 7:38:00 EST, Route to Pharmacy Electronically, [facility] #[id number], 148.4, cm, 05/13... Start Date: 07/12/21 Stop Date: 01/08/22 Status: Ordered Fish Oil By Mouth, 0 Refills, Maintenance, 02/14/21 7:13:00 EDT, Partial fill upon patient request if the prescription is for a schedule II opioid drug. Start Date: 02/14/21 Status: Ordered gabapentin 100 mg oral capsule 200 mg, 2, capsule, By Mouth, 3 times a day, # 180 capsule, Refills 3, Tot. Refills 3, Maintenance,12/27/20 11:32:00 EDT, Route to Pharmacy Electronically, [facility] #[id number], Partial fill upon patient request if the prescription is for a sc... Start Date: 12/27/20 Status: Ordered isosorbide mononitrate 30 mg oral tablet, extended release 30 mg, 1, tablet, By Mouth, Daily in AM, # 30 tablet, Refills 3, Tot. Refills 3, Maintenance, 04/05/21 13:22:00 EDT, Route to Pharmacy Electronically, [facility] #[id number], Partial fill upon patient request if the prescription is for a schedule... Start Date: 04/05/21 Stop Date: 08/03/21 Status: Ordered isosorbide mononitrate 30 mg oral tablet, extended release 30 mg, 1, tablet, By Mouth, Daily in AM, # 30 tablet, Refills 3, Tot. Refills 3, Maintenance, 04/06/21 12:52:00 EDT, Route to Pharmacy Electronically, [facility] #[id number], Partial fill upon patient request if the prescription is for a schedule... Start Date: 04/06/21 Status: Ordered levothyroxine 0.025 mg oral tablet 1 tablet, By Mouth, Daily, BUBBLE PACK PLEASE, # 90 tablet, 1 Refills, Maintenance, 07/12/21 7:38:00 EST, Tablet, [facility] #[id number], 148.4, cm, 06/01/21 8:57:00 EDT, Height, 97.3, kg, 06/01/21 8:57:00 EDT, Dry Weight Start Date: 07/12/21 Stop Date: 01/08/22 Status: Ordered lisinopril 20 mg oral tablet 20 mg, 1, tablet, By Mouth, Daily, BUBBLE PACK PLEASE, # 90 tablet, Refills 1, Tot. Refills 1, Maintenance, 08/30/21 12:48:00 EST, Route to Pharmacy Electronically, [facility] #[id number], 148.4, cm, 08/15/21 9:27:00 EST, Height, 97.3, kg, ... Start Date: 08/30/21 Stop Date: 02/26/22 Status: Ordered LORazepam 1 mg oral tablet 1 tablet = 1 mg, By Mouth, Daily, PRN as needed for anxiety, covering provider, # 30 tablet, 0 Refills, Maintenance, 08/08/21 17:07:00 EST, Tablet, [facility] #[id number], 148.4, cm, 06/01/21 8:57:00 EDT, Height, 97.3, kg, 06/01/21 8:57:00 EDT, D... Start Date: 08/08/21 Stop Date: 09/07/21 Status: Ordered LORazepam 1 mg oral tablet 1 tablet = 1 mg, By Mouth, Daily, PRN as needed for anxiety, # 30 tablet, 0 Refills, Maintenance, 03/24/21 12:18:00 EDT, Tablet, [facility] #[id number], 148.4, cm, 02/16/21 15:09:00 EDT, Height,97.6, kg, 02/15/21 17:00:00 EDT, Dry Weight Start Date: 03/24/21 Stop Date: 04/23/21 Status: Ordered Multivitamin Daily, 0 Refills, Maintenance, 02/14/21 7:14:00 EDT, Partial fill upon patient request if the prescription is for a schedule II opioid drug. Start Date: 02/14/21 Status: Ordered nitroglycerin 0.4 mg sublingual tablet 1 tablet = 0.4 mg, Sublingual, Every 5 minutes, PRN as needed for chest pain, not to exceed 3 doses/15 min--if pain persists, seek medical attention, # 30 tablet, 3 Refills, Maintenance, 04/05/21 13:22:00 EDT, Tablet, [facility] #[id number], Part... Start Date: 04/05/21 Stop Date: 08/03/21 Status: Ordered nortriptyline 50 mg oral capsule 50 mg, 1, capsule, By Mouth, Daily, # 90 capsule, Refills 1, Tot. Refills 1, Maintenance, 07/12/21 7:37:00 EST, Route to Pharmacy Electronically, [facility] #[id number], 148.4, cm, 06/01/21 8:57:00 EDT, Height, 97.3, kg, 06/01/21 8:57:00 EDT, Dry... Start Date: 07/12/21 Stop Date: 01/08/22 Status: Ordered omeprazole 20 mg oral enteric coated capsule 1 capsule = 20 mg, By Mouth, 2 times a day, BUBBLE PACK PLEASE, # 60 capsule, 3 Refills, Maintenance, 08/24/21 9:30:00 EST, EC Capsule, [facility] #[id number], 148.4, cm, 08/15/21 9:27:00 EST, Height, 97.3, kg, 06/01/21 8:57:00 EDT, Dry Weight Start Date: 08/24/21 Stop Date: 12/22/21 Status: Ordered ProAir HFA 90 mcg/inh inhalation aerosol 2 puffs, Inhalation, 4 times a day, PRN Wheezing/Shortness of Breath, # 2 each, 3 Refills, Maintenance, 11/08/20 17:08:00 EDT, Aerosol, [facility] #[id number], Partial fill upon patient request if the prescription is for a schedule II opioid drug... Start Date: 11/08/20 Stop Date: 03/08/21 Status: Ordered Singulair 10 mg oral tablet 10 mg, 1, tablet, By Mouth, Daily in PM, BUBBLE PACK PLEASE, # 30 tablet, Refills 5, Tot. Refills 5, Maintenance, 03/09/21 15:06:00 EDT, Route to Pharmacy Electronically, [facility] #[id number],148.4, cm, 02/16/21 15:09:00 EDT, Height, 97.6, kg,... Start Date: 03/09/21 Stop Date: 09/05/21 Status: Ordered umeclidinium 62.5 mcg/inh inhalation powder 1 inhalation = 62.5 mcg, Inhalation, Every 24 hours, doses should be taken at least 24 hours apart,# 30 each, 11 Refills, Maintenance, 01/06/21 14:47:00 EDT, Powder, [facility] #[id number], Partial fill upon patient request if the prescription i... Start Date: 01/06/21 Status: Ordered Vitamin B12 0 Refills, Maintenance, 02/14/21 7:13:00 EDT, Partial fill upon patient request if the prescriptionis for a schedule II opioid drug. Start Date: 02/14/21 Status: Ordered Vitamin D3 1000 intl units oral tablet 1 tablet = 1,000 International_Units, By Mouth, Daily, # 30 tablet, 0 Refills, Maintenance, 02/14/21 7:13:00 EDT, Tablet, Partial fill upon patient request if the prescription is for a schedule II opioid drug. Start Date: 02/14/21 Status: Ordered Vitamin E By Mouth, Daily, [...] of liver(Confirmed) Active Constipated(Confirmed) Active Constipation(Confirmed) Active Depression(Confirmed) Active Diabetes(Confirmed) Active Diarrhea(Confirmed) Active [...] Numbness and tingling in hands(Confirmed) Active *[facility] [phone] CARE MANAG ER HELENLUCITA BOSEE(Confirmed) Active Pulmonary edema(Confirmed) Active Rib pain on left side(Confirmed) Active Pain in right shoulder(Confirmed) Active Urge urinary incontinence(Confirmed) Active 1tx with apc today due to bleeding. 2normal PFT's 11/22/14 r/o COPD 3childhood onset 4possibly Type III 53+ 6s/p bilateral salpingo-oophrectomy Diagnosis Diagnosis Type Effective Dates Health Status Clinical Service Informant Asthma Discharge Diagnosis 08/30/21 Diabetes Discharge Diagnosis 08/30/21 Constipation Discharge Diagnosis 08/30/21 Depression Discharge Diagnosis 08/30/21 Hypothyroidism Discharge Diagnosis 08/30/21 Generalized anxiety disorder Discharge Diagnosis 08/30/21 Social History Social History Type Response Smoking Status Former smoker; Tobac co user in household: No; Type: Cigarettes; Stopped at age: 48; Tobacco use times per day: up to 2 ppd; Started at age: 16; entered on: 11/08/14 Sex Female
--- OUTSIDE RECORDS SUMMARY | 2023-03-06 14:43 | XMS_ITS | Continuity of Care Document ---
Author Name Unknown Organization [facility] Address [address] [place] [address]- Care Team Providers Care Ship Carpenter Name Role Phone jR HAMILTON, Winsome Weiss Primary Care Physician Encounter [facility] Date(s): 04/27/20 - 05/04/20 [facility] [address] [place] [address]- Encounter Diagnosis Facial contusion(Discharge Diagnosis) - 04/28/20 Anemia(Discharge Diagnosis) - 04/28/20 Bilateral breast lump(Discharge Diagnosis) - 04/28/20 Attending Physician: Winsome De La Rosa NP [...] [07/11/2018] Gwendolyn 2Result Comment: [11/11/2015] given at [facility] [address] [place] [address] [phone] 3Result Comment: [07/11/2018] Gwendolyn 4Location History: [facility] 5Admin Note: given at [facility] in [place], [place] 6Location History: gwendolyn 7Admin Note: boostrix [...] 03/15/20 14:44:00 EDT, Route to Pharmacy Electronically, [facility] #[id number], 149.9, cm, 0... Start Date: 03/15/20 Stop Date: 09/11/20 Status: Ordered Colace sodium 100 mg oral capsule 100 mg, 1, capsule, By Mouth, 2 times a day, BUBBLE PACK PLEASE, # 180 capsule, Refills 1, Tot. Refills 1, Maintenance, 04/18/20 14:37:00 EDT, Route to Pharmacy Electronically, [facility] #[id number], 149.9, cm, 03/07/20 10:17:00 EDT, Height, 103... Start Date: 04/18/20 Stop Date: 10/15/20 Status: Ordered docusate sodium 100 mg oral capsule See Instructions, # 60 Unknown, Refills 14 Tot. Refills 14, TAKE ONE CAPSULE BY MOUTH TWICE DAILY, [facility] Start Date: 04/24/19 Status: Ordered escitalopram 20 mg oral tablet 1 tablet = 20 mg, By Mouth, Daily, # 30 tablet, 5 Refills, Maintenance, 04/27/20 9:19:00 EDT, Tablet, [facility] #[id number], 149.9, cm, 04/27/20 9:00:00 EDT, Height, 103.8, kg, 03/07/20 10:17:00 EDT, Dry Weight Start Date: 04/27/20 Stop Date: 10/24/20 Status: Ordered FeroSul 325 mg oral tablet 1 tablet = 325 mg, By Mouth, 2 times a day, BUBBLE PACK PLEASE, # 60 tablet, 5 Refills, Soft Stop, 04/18/20 14:38:00 EDT, [facility] #[id number], 149.9, cm, 03/07/20 10:17:00 EDT, Height, 103.8,kg, 03/07/20 10:17:00 EDT, Dry Weight Start Date: 04/18/20 Stop Date: 10/15/20 Status: Ordered ferrous sulfate 325 mg oral enteric coated tablet 325 mg, 1, tablet, By Mouth, 2 times a day, # 180 tablet, Refills 1, Tot. Refills 1, Maintenance, 12/24/18 14:50:03 EDT, [id number] Start Date: 12/24/18 Stop Date: 06/22/19 [...] capsule, Refills 3, Tot. Refills 3, Maintenance, 04/27/20 9:20:00 EDT, Route to Pharmacy Electronically, [facility] #[id number], 149.9, cm, 04/27/20 9:00:00 EDT, Height, 103.8,... Start Date: 04/27/20 Stop Date: 08/25/20 Status: Ordered levothyroxine 0.025 mg oral tablet 1 tablet, By Mouth, Daily, BUBBLE PACK PLEASE, # 30 tablet, 5 Refills, Maintenance, 04/27/20 9:20:00 EDT, Tablet, [facility] #[id number], 149.9, cm, 04/27/20 9:00:00 EDT, Height, 103.8, kg, 03/07/20 10:17:00 EDT, Dry Weight Start Date: 04/27/20 Stop Date: 10/24/20 Status: Ordered lisinopril 20 mg oral tablet 20 mg, 1, tablet, By Mouth, Daily, BUBBLE PACK PLEASE, # 30 tablet, Refills 5, Tot. Refills 5, Maintenance, 04/27/20 9:21:00 EDT, Route to Pharmacy Electronically, [facility] #[id number], 149.9,cm, 04/27/20 9:00:00 EDT, Height, 103.8, kg, 03/07/... Start Date: 04/27/20 Stop Date: 10/24/20 Status: Ordered LORazepam 1 mg oral tablet 1 tablet = 1 mg, By Mouth, Daily, PRN as needed for anxiety, # 30 tablet, 0 Refills, Maintenance, 04/12/20 14:39:00 EDT, Tablet, [facility] #[id number], 149.9, cm, 03/31/20 15:03:00 EDT, Height,103.8, kg, 03/07/20 10:17:00 EDT, Dry Weight Start Date: 04/12/20 Stop Date: 05/12/20 Status: Ordered nortriptyline 50 mg oral capsule 50 mg, 1, capsule, By Mouth, Daily, BUBBLE PACK PLEASE, # 30 capsule, Refills 6, Tot. Refills 6, Maintenance, 03/25/20 19:21:00 EDT, Route to Pharmacy Electronically, [facility] #[id number], 149.9, cm, 03/07/20 10:17:00 EDT, Height, 103.8, kg, 07... Start Date: 03/25/20 Stop Date: 10/21/20 Status: Ordered nystatin topical 877204 u/gm ointment 1 application, Topically, 3 times [...] PLEASE, # 30 capsule, 5 Refills, Maintenance, 04/27/20 9:19:00 EDT, EC Capsule, [facility] #[id number], 149.9, cm, 04/27/20 9:00:00 EDT, Height, 103.8, kg, 03/07/20 10:17:00 EDT, Dry Weight Start Date: 04/27/20 Stop Date: 10/24/20 Status: Ordered Singulair 10 mg oral tablet 10 mg, 1, tablet, By Mouth, Daily in PM, BUBBLE PACK PLEASE, # 30 tablet, Refills 5, Tot. Refills 5, Maintenance, 03/02/20 16:02:00 EDT, Route to Pharmacy Electronically, [facility] #[id number],149.9, cm, 03/02/20 10:16:00 EDT, Height, 94.4, kg,... [...] Active Numbness and tingling in hands(Confirmed) Active *[facility] [phone] CARE MANAG ER HELEN RENO(Confirmed) Active Rib pain on left side(Confirmed) Active Pain in right shoulder(Confirmed) Active Urge urinary incontinence(Confirmed) Active 1tx with apc today due to bleeding. 2normal PFT's 11/22/14 r/o COPD 3childhood onset 4possibly Type III 53+ 6s/p bilateral salpingo-oophrectomy Diagnosis Diagnosis Type Effective Dates Health Status Cl inical Service Informant Facial contusion Discharge Diagnosis 04/28/20 Anemia Discharge Diagnosis 04/28/20 Bilateral breast lump Discharge Diagnosis 04/28/20 Vital Signs Most recent to oldest [Reference Range]: 1 Height 149.9 cm (04/27/20 9:00 AM) Weight 102.8 kg (04/27/20 9:00 AM) Oxygen Saturation [94-100 %] 98 % (04/27/20 9:00 AM) Pulse Rate [55-90 bpm] 82 bpm (04/27/20 9:00 AM) Body Mass Index [18.5-24.99] 45.75 *>HHI* (04/27/20 9:00 AM) Blood Pressure [90-138/55-84 mm Hg] 132/ 80mm Hg (04/27/20 9:00 AM) Respiratory Rate [16-30 br/min] 18 br/mi n (04/27/20 9:00 AM) Temperature [96.8-100.4 DegF] 96.8 DegF (04/27/20 9:00 AM) Mode of Delivery (Oxygen) Room air (04/27/20 9:00 AM) Blood pressure sites Arm, right (04/27/20 9:00 AM) Temperature Route Temporal (04/27/20 9:00 AM) Social History Social History Type Response Smoking Status Former smoker; Tobac co user in household: No; Type: Cigarettes; Tobacco use times per day: up to 2 ppd; Started at age: 16; Stopped at age: 48; entered on: 11/08/14 Sex
--- OUTSIDE RECORDS SUMMARY | 2023-03-06 14:43 | XMS_ITS | Continuity of Care Document ---
Author Name Unknown Organization [facility] Address [address] [place] [address]- Care Team Providers Care Combination Technician Name Role Phone Rj HAMILTON, Winsome Weiss Primary Care Physician [phone] Encounter [facility] Date(s): 11/02/20 - [facility]11/[facility] [address] [place] [address]- Attending Physician: Rossy Mcclure DO Referring Physician: [...] [07/11/2018] Wernergrreggie 2Result Comment: [11/11/2015] given at [facility] [address] [place] [address] [phone] 3Result Comment: [07/11/2018] Gwendolyn 4Location History[facility] 5Admin Note: given at [facility] in [place], [place] 6Location History: gwendolyn 7Admin Note: boostrix [...] 06/21/20 16:00:00 EST, Route to Pharmacy Electronically, [facility] #[id number], 149.9, cm, 06/21/20 13:54:00 EST, Height, 103.8, kg, 06/21/20 13:54:... Start Date: 06/21/20 Stop Date: 06/29/20 Status: Ordered Colace sodium 100 mg oral capsule 100 mg, 1, capsule, By Mouth, 2 times a day, BUBBLE PACK PLEASE, # 180 capsule, Refills 1, Tot. Refills 1, Maintenance, 11/08/20 17:06:00 EDT, Route to Pharmacy Electronically, [facility] #[id number], 152.4, cm, 11/07/20 7:59:00 EDT, Height, 100.... Start Date: 11/08/20 Stop Date: 05/07/21 Status: Ordered escitalopram 20 mg oral tablet 1 tablet = 20 mg, By Mouth, Daily, # 30 tablet, 5 Refills, Maintenance, 07/22/20 9:23:00 EST, Tablet, [facility] #[id number], 153, cm, 07/22/20 9:04:00 EST, Height, 106, kg, 07/08/20 13:49:00 EST, Dry Weight Start Date: 07/22/20 Stop Date: 01/18/21 Status: Ordered ferrous sulfate 325 mg oral enteric coated tablet 325 mg, 1, tablet, By Mouth, 2 times a day, may take with food to minimize abdominal discomfort, # 180 tablet, Refills 1, Tot. Refills 1, Maintenance, 10/04/20 16:08:00 EST, Route to Pharmacy Electronically, [facility] #[id number], 150, cm, 09/26... Start Date: 10/04/20 Stop Date: 04/02/21 Status: Ordered Flovent HFA 220 mcg/inh inhalation aerosol 2 puffs, Inhalation, 2 times a day, # 1 each, 6 Refills, Maintenance, 11/08/20 17:06:00 EDT, Aerosol, [facility] #[id number], 152.4, cm, 11/07/20 7:59:00 EDT, Height, 100.2, kg, 11/07/20 7:59:00EDT, Dry Weight Start Date: 11/08/20 Stop Date: 06/06/21 Status: Ordered gabapentin 100 mg oral capsule 200 mg, 2, capsule, By Mouth, 3 times a day, # 180 capsule, Refills 1, Tot. Refills 1, Maintenance,09/14/20 15:22:00 EST, Route to Pharmacy Electronically, [facility] #[id number], Partial fill upon patient request if the prescription is for a sc... Start Date: 09/14/20 Status: Ordered Lasix 20 mg oral tablet See Instructions, 1 tablet By Mouth Daily, # 10 tablet, Refills 0, Tot. Refills 0, Maintenance, 11/13/20 22:27:00 EDT, Instructions Replace Required Details, Route to Pharmacy Electronically, [facility] #[id number], Partial fill upon patient requ... Start Date: 11/13/20 Status: Ordered levothyroxine 0.025 mg oral tablet 1 tablet, By Mouth, Daily, BUBBLE PACK PLEASE, # 30 tablet, 5 Refills, Maintenance, 07/22/20 9:24:00 EST, Tablet, [facility] #[id number], 153, cm, 07/22/20 9:04:00 EST, Height, 106, kg, 07/08/2013:49:00 EST, Dry Weight Start Date: 07/22/20 Stop Date: 01/18/21 Status: Ordered lisinopril 20 mg oral tablet 20 mg, 1, tablet, By Mouth, Daily, BUBBLE PACK PLEASE, # 30 tablet, Refills 5, Tot. Refills 5, Maintenance, 04/27/20 9:21:00 EDT, Route to Pharmacy Electronically, [facility] #[id number], 149.9,cm, 04/27/20 9:00:00 EDT, Height, 103.8, kg, ... Start Date: 04/27/20 Stop Date: 10/24/20 Status: Ordered LORazepam 1 mg oral tablet 1 tablet = 1 mg, By Mouth, Daily, PRN as needed for anxiety, # 30 tablet, 0 Refills, Maintenance, 11/15/20 10:10:00 EDT, Tablet, [facility] #[id number], 153, cm, 11/15/20 9:29:00 EDT, Height, 102.4, kg, 11/13/20 18:51:00 EDT, Dry Weight Start Date: 11/15/20 Stop Date: 12/15/20 Status: Ordered nadolol 20 mg oral tablet [...] 03/25/20 19:21:00 EDT, Route to Pharmacy Electronically, [facility] #[id number], 149.9, cm, 03/07/20 10:17:00 EDT, Height, 103.8, kg, 07... Start Date: 03/25/20 Stop Date: 10/21/20 Status: Ordered nystatin topical 890904 u/gm ointment 1 application, Topically, 3 times [...] Refills, Maintenance, 10/24/20 9:19:00 EDT, EC Capsule, [facility] #48114, 149.9, cm, 06/14/20 14:58:00 EST, Height, 101, kg, 06/07/20 10:02:00 EDT, Dry Weight Start Date: 10/24/20 Stop Date: 02/21/21 Status: Ordered ProAir HFA 90 mcg/inh inhalation aerosol 2 puffs, Inhalation, 4 times a day, PRN Wheezing/Shortness of Breath, # 2 each, 3 Refills, Maintenance, 11/08/20 17:08:00 EDT, Aerosol, [facility] #[id number], Partial fill upon patient request if the prescription is for a schedule II opioid drug... Start Date: 11/08/20 Stop Date: 03/08/21 Status: Ordered Singulair 10 mg oral tablet 10 mg, 1, tablet, By Mouth, Daily in PM, BUBBLE PACK PLEASE, # 30 tablet, Refills 5, Tot. Refills 5, Maintenance, 07/22/20 9:24:00 EST, Route to Pharmacy Electronically, [facility] #[id number], 153, cm, 07/22/20 9:04:00 EST, Height, 106, [...] Numbness and tingling in hands(Confirmed) Active *[facility] [phone] CARE MANAG ER HELEN MGJUAN LUIS(Confirmed) Active Pulmonary edema(Confirmed) Active Rib pain on [...]
--- OUTSIDE RECORDS SUMMARY | 2023-03-06 14:43 | XMS_ITS | Continuity of Care Document ---
Author Name Unknown Organization [facility] Address [address] [place] [address]- Care Team Providers Care Site Worker Name Role Phone Rj STOCKFEED MILLER, Winsome Weiss Primary Care Physician Encounter [facility] Date(s): [facility]23[facility] [address], [place] [address] Attending Physician: Admtr, Wilian8 Admitting Physician: Admtr, [...] [07/11/2018] Wernergrreggie 2Result Comment: [11/11/2015] given at [facility] [address] [place] [address] [phone] 3Result Comment: [07/11/2018] Gwendolyn 4Location History[facility] 5Admin Note: given at [facility] in [place], [place] 6Location History: gwendolyn 7Admin Note: boostrix [...] mL, 11 Refills, Maintenance, 01/06/21 14:51:00 EDT, [place], [facility] #[id number], Partial fill upon patient request if the prescriptionis for a schedule II opioid drug., 2 sprays Nares,... Start Date: 01/06/21 Status: Ordered clopidogrel 75 mg oral tablet 75 mg, 1, tablet, By Mouth, Daily, # 30 tablet, Refills 3, Tot. Refills 3, Maintenance, 04/06/21 16:33:00 EDT, Route to Pharmacy Electronically, [facility] #[id number], Partial fill upon patientrequest if the prescription is for a schedule II op... Start Date: 04/06/21 Status: Ordered dicyclomine 10 mg oral capsule 1 capsule = 10 mg, By Mouth, 4 times a day, PRN Pain , Moderate, # 28 capsule, 0 Refills, Maintenance, 05/11/21 15:51:00 EDT, Capsule, [facility] #[id number], Partial fill upon patient request if the prescription is for a schedule II opioid drug.... Start Date: 05/11/21 Stop Date: 05/18/21 Status: Ordered escitalopram 20 mg oral tablet 1 tablet = 20 mg, By Mouth, Daily, # 90 tablet, 1 Refills, Maintenance, 02/14/21 7:29:00 EDT, Tablet, [facility] #[id number], 153, cm, 02/14/21 7:06:00 EDT, Height, 102.4, kg, 11/13/20 18:51:00 EDT, Dry Weight Start Date: 02/14/21 Stop Date: 08/13/21 Status: Ordered ferrous sulfate 325 mg oral enteric coated tablet 325 mg, 1, tablet, By Mouth, 2 times a day, may take with food to minimize abdominal discomfort, # 180 tablet, Refills 1, Tot. Refills 1, Maintenance, 05/02/21 8:25:00 EDT, Route to Pharmacy Electronically, [facility] #[id number], 148.4, cm, 07/0... Start Date: 05/02/21 Stop Date: 10/29/21 Status: Ordered Fish Oil By Mouth, 0 Refills, Maintenance, 02/14/21 7:13:00 EDT, Partial fill upon patient request if the prescription is for a schedule II opioid drug. Start Date: 02/14/21 Status: Ordered gabapentin 100 mg oral capsule 200 mg, 2, capsule, By Mouth, 3 times a day, # 180 capsule, Refills 3, Tot. Refills 3, Maintenance,12/27/20 11:32:00 EDT, Route to Pharmacy Electronically, [facility] #[id number], Partial fill upon patient request if the prescription is for a sc... Start Date: 12/27/20 Status: Ordered isosorbide mononitrate 30 mg oral tablet, extended release 30 mg, 1, tablet, By Mouth, Daily in AM, # 30 tablet, Refills 3, Tot. Refills 3, Maintenance, 04/05/21 13:22:00 EDT, Route to Pharmacy Electronically, [facility] #[id number], Partial fill upon patient request if the prescription is for a schedule... Start Date: 04/05/21 Stop Date: 08/03/21 Status: Ordered isosorbide mononitrate 30 mg oral tablet, extended release 30 mg, 1, tablet, By Mouth, Daily in AM, # 30 tablet, Refills 3, Tot. Refills 3, Maintenance, 04/06/21 12:52:00 EDT, Route to Pharmacy Electronically, [facility] #[id number], Partial fill upon patient request if the prescription is for a schedule... Start Date: 04/06/21 Status: Ordered levothyroxine 0.025 mg oral tablet 1 tablet, By Mouth, Daily, BUBBLE PACK PLEASE, # 90 tablet, 1 Refills, Maintenance, 02/14/21 7:27:00 EDT, Tablet, [facility] #[id number], 153, cm, 02/14/21 7:06:00 EDT, Height, 102.4, kg, 11/13/20 18:51:00 EDT, Dry Weight Start Date: 02/14/21 Stop Date: 08/13/21 Status: Ordered lisinopril 20 mg oral tablet 20 mg, 1, tablet, By Mouth, Daily, BUBBLE PACK PLEASE, # 90 tablet, Refills 1, Tot. Refills 1, Maintenance, 06/12/21 9:50:00 EDT, Route to Pharmacy Electronically, [facility] #[id number], 148.4,cm, 06/01/21 8:57:00 EDT, Height, 97.3, kg, ... Start Date: 06/12/21 Stop Date: 12/09/21 Status: Ordered LORazepam 1 mg oral tablet 1 tablet = 1 mg, By Mouth, Daily, PRN as needed for anxiety, covering provider, # 30 tablet, 0 Refills, Maintenance, 05/22/21 16:47:00 EDT, Tablet, [facility] #[id number], 148.4, cm, 02/16/21 15:09:00 EDT, Height, 97.6, kg, 02/15/21 17:00:00 EDT,... Start Date: 05/22/21 Stop Date: 06/21/21 Status: Ordered LORazepam 1 mg oral tablet 1 tablet = 1 mg, By Mouth, Daily, PRN as needed for anxiety, # 30 tablet, 0 Refills, Maintenance, 03/24/21 12:18:00 EDT, Tablet, [facility] #75055, 148.4, cm, 02/16/21 15:09:00 EDT, Height,97.6, kg, 02/15/21 17:00:00 EDT, Dry Weight Start Date: 03/24/21 Stop Date: 04/23/21 Status: Ordered Multivitamin Daily, 0 Refills, Maintenance, 02/14/21 7:14:00 EDT, Partial fill upon patient request if the prescription is for a schedule II opioid drug. Start Date: 02/14/21 Status: Ordered nadolol 20 mg oral tablet 20 mg, 1, tablet, By Mouth, Daily, # 60 tablet, Refills 3, Tot. Refills 3, Maintenance, 11/07/20 8:52:00 EDT, [facility], Partial fill upon patient request if the prescription is for a schedule II opioid drug., 152.4, cm, 11/07/20 7:59:00 EDT,... Start Date: 11/07/20 Stop Date: 07/05/21 Status: Ordered nitroglycerin 0.4 mg sublingual tablet 1 tablet = 0.4 mg, Sublingual, Every 5 minutes, PRN as needed for chest pain, not to exceed 3 doses/15 min--if pain persists, seek medical attention, # 30 tablet, 3 Refills, Maintenance, 04/05/21 13:22:00 EDT, Tablet, [facility] #[id number], Part... Start Date: 04/05/21 Stop Date: 08/03/21 Status: Ordered nortriptyline 50 mg oral capsule 50 mg, 1, capsule, By Mouth, Daily, # 90 capsule, Refills 1, Tot. Refills 1, Maintenance, 02/14/21 7:26:00 EDT, Route to Pharmacy Electronically, [facility] #[id number], 153, cm, 02/14/21 7:06:00 EDT, Height, 102.4, kg, 11/13/20 18:51:00 EDT, Dry... Start Date: 02/14/21 Stop Date: 08/13/21 Status: Ordered omeprazole 20 mg oral enteric coated capsule 1 capsule = 20 mg, By Mouth, 2 times a day, BUBBLE PACK PLEASE, # 60 capsule, 3 Refills, Maintenance, 04/21/21 17:24:00 EDT, EC Capsule, [facility] #[id number], 148.4, cm, 02/16/21 15:09:00 EDT,Height, 97.6, kg, 02/15/21 17:00:00 EDT, Dry Weight Start Date: 04/21/21 Stop Date: 08/19/21 Status: Ordered ProAir HFA 90 mcg/inh inhalation aerosol 2 puffs, Inhalation, 4 times a day, PRN Wheezing/Shortness of Breath, # 2 each, 3 Refills, Maintenance, 11/08/20 17:08:00 EDT, Aerosol, [facility] #[id number], Partial fill upon patient request if the prescription is for a schedule II opioid drug... Start Date: 11/08/20 Stop Date: 03/08/21 Status: Ordered Singulair 10 mg oral tablet 10 mg, 1, tablet, By Mouth, Daily in PM, BUBBLE PACK PLEASE, # 30 tablet, Refills 5, Tot. Refills 5, Maintenance, 03/09/21 15:06:00 EDT, Route to Pharmacy Electronically, [facility] #[id number],148.4, cm, 02/16/21 15:09:00 EDT, Height, 97.6, kg,... Start Date: 03/09/21 Stop Date: 09/05/21 Status: Ordered umeclidinium 62.5 mcg/inh inhalation powder 1 inhalation = 62.5 mcg, Inhalation, Every 24 hours, doses should be taken at least 24 hours apart,# 30 each, 11 Refills, Maintenance, 01/06/21 14:47:00 EDT, Powder, [facility] #[id number], Partial fill upon patient request if the [...] Numbness and tingling in hands(Confirmed) Active *[facility] [phone] CARE MANAG ER HELEN ROWDY(Confirmed) Active Pulmonary [...]
--- OUTSIDE RECORDS SUMMARY | 2023-03-06 14:43 | XMS_ITS | Continuity of Care Document ---
Author Name Unknown Organization [facility] Address [address] [place] [id number]- Care Team Providers Care Coordinator Cardiopulmonary Services Name Role Phone Rj CARD CHECKER, Winsome M Primary Care Physician [phone] [facility] Date(s): 11/13/20 - 11/13/[address] [address]- Discharge Disposition: A-D/C Home Attending Physician: Chip Silva MD Admitting Physician: Chip Silva MD Referring Physician: Not on Staff, Referring [...] 7 12/11/13 Gi sukhi 1Result Comment: [07/11/2018] [facility] 2Result Comment: [11/11/2015] given at [facility] [address] [place] [address] [phone] 3Result Comment: [07/11/2018] [facility] 5Admin Note: given at [facility] in [place], [place] 6Location History: [facility] 7Admin Note: boostrix vis 12-28-2012 Medications albuterol [...] 06/21/20 16:00:00 EST, Route to Pharmacy Electronically, [facility] #[id number], 149.9, cm, 06/21/20 13:54:00 EST, Height, 103.8, kg, 06/21/20 13:54:... Start Date: 06/21/20 Stop Date: 06/29/20 Status: Ordered Colace sodium 100 mg oral capsule 100 mg, 1, capsule, By Mouth, 2 times a day, BUBBLE PACK PLEASE, # 180 capsule, Refills 1, Tot. Refills 1, Maintenance, 11/08/20 17:06:00 EDT, Route to Pharmacy Electronically, [facility] #[id number], 152.4, cm, 11/07/20 7:59:00 EDT, Height, 100.... Start Date: 11/08/20 Stop Date: 05/07/21 Status: Ordered escitalopram 20 mg oral tablet 1 tablet = 20 mg, By Mouth, Daily, # 30 tablet, 5 Refills, Maintenance, 07/22/20 9:23:00 EST, Tablet, [facility] #[id number], 153, cm, 07/22/20 9:04:00 EST, Height, 106, kg, 07/08/20 13:49:00 EST, Dry Weight Start Date: 07/22/20 Stop Date: 01/18/21 Status: Ordered ferrous sulfate 325 mg oral enteric coated tablet 325 mg, 1, tablet, By Mouth, 2 times a day, may take with food to minimize abdominal discomfort, # 180 tablet, Refills 1, Tot. Refills 1, Maintenance, 10/04/20 16:08:00 EST, Route to Pharmacy Electronically, [facility] #[id number], 150, cm, 09/26... Start Date: 10/04/20 Stop Date: 04/02/21 Status: Ordered Flovent HFA 220 mcg/inh inhalation aerosol 2 puffs, Inhalation, 2 times a day, # 1 each, 6 Refills, Maintenance, 11/08/20 17:06:00 EDT, Aerosol, [facility] #[id number], 152.4, cm, 11/07/20 7:59:00 EDT, Height, 100.2, kg, 11/07/20 7:59:00EDT, Dry Weight Start Date: 11/08/20 Stop Date: 06/06/21 Status: Ordered gabapentin 100 mg oral capsule 200 mg, 2, capsule, By Mouth, 3 times a day, # 180 capsule, Refills 1, Tot. Refills 1, Maintenance,09/14/20 15:22:00 EST, Route to Pharmacy Electronically, [facility] #[id number], Partial fill upon patient request if the prescription is for a sc... Start Date: 09/14/20 Status: Ordered Lasix 20 mg oral tablet See Instructions, 1 tablet By Mouth Daily, # 10 tablet, Refills 0, Tot. Refills 0, Maintenance, 11/13/20 22:27:00 EDT, Instructions Replace Required Details, Route to Pharmacy Electronically, [facility] #[id number], Partial fill upon patient requ... Start Date: 11/13/20 Status: Ordered levothyroxine 0.025 mg oral tablet 1 tablet, By Mouth, Daily, BUBBLE PACK PLEASE, # 30 tablet, 5 Refills, Maintenance, 07/22/20 9:24:00 EST, Tablet, [facility] #[id number], 153, cm, 07/22/20 9:04:00 EST, Height, 106, kg, 07/08/2013:49:00 EST, Dry Weight Start Date: 07/22/20 Stop Date: 01/18/21 Status: Ordered lisinopril 20 mg oral tablet 20 mg, 1, tablet, By Mouth, Daily, BUBBLE PACK PLEASE, # 30 tablet, Refills 5, Tot. Refills 5, Maintenance, 04/27/20 9:21:00 EDT, Route to Pharmacy Electronically, [facility] #[id number], 149.9,cm, 04/27/20 9:00:00 EDT, Height, 103.8, kg, ... Start Date: 04/27/20 Stop Date: 10/24/20 Status: Ordered LORazepam 1 mg oral tablet 1 tablet = 1 mg, By Mouth, Daily, PRN as needed for anxiety, # 30 tablet, 0 Refills, Maintenance, 09/16/20 15:53:00 EST, Tablet, [facility] #[id number], 153, cm, 09/14/20 13:47:00 EST, Height, 106, kg, 07/08/20 13:49:00 EST, Dry Weight Start Date: 09/16/20 Stop Date: 10/16/20 Status: Ordered nadolol 20 mg oral tablet [...] 03/25/20 19:21:00 EDT, Route to Pharmacy Electronically, [facility] #[id number], 149.9, cm, 03/07/20 10:17:00 EDT, Height, 103.8, kg, 07... Start Date: 03/25/20 Stop Date: 10/21/20 Status: Ordered nystatin topical 855460 u/gm ointment 1 application, Topically, 3 times [...] Refills, Maintenance, 10/24/20 9:19:00 EDT, EC Capsule, [facility] #09153, 149.9, cm, 06/14/20 14:58:00 EST, Height, 101, kg, 06/07/20 10:02:00 EDT, Dry Weight Start Date: 10/24/20 Stop Date: 02/21/21 Status: Ordered ProAir HFA 90 mcg/inh inhalation aerosol 2 puffs, Inhalation, 4 times a day, PRN Wheezing/Shortness of Breath, # 2 each, 3 Refills, Maintenance, 11/08/20 17:08:00 EDT, Aerosol, [facility] #[id number], Partial fill upon patient request if the prescription is for a schedule II opioid drug... Start Date: 11/08/20 Stop Date: 03/08/21 Status: Ordered Singulair 10 mg oral tablet 10 mg, 1, tablet, By Mouth, Daily in PM, BUBBLE PACK PLEASE, # 30 tablet, Refills 5, Tot. Refills 5, Maintenance, 07/22/20 9:24:00 EST, Route to Pharmacy Electronically, [facility] #[id number], 153, cm, 07/22/20 9:04:00 EST, Height, 106, kg, 06/13... Start Date: 07/22/20 Stop Date: 01/18/21 Status: Ordered Tylenol 325 mg oral tablet 975 mg, Tablet, By Mouth, STAT, 11/13/20 22:11:00 EDT Start Date: 11/13/20 Stop Date: 11/13/20 Status: Completed Xopenex HFA 45 mcg/inh inhalation aerosol 1 [...] Numbness and tingling in hands(Confirmed) Active *[facility] [phone] CARE MANAG ER HELEN RENO(Confirmed) Active Rib pain on left side(Confirmed) Active Pain in right shoulder(Confirmed) Active Urge urinary incontinence(Confirmed) Active 1tx with apc today due to bleeding. 2normal PFT's 11/22/14 r/o COPD 3childhood onset 4possibly Type III 53+ 6s/p bilateral salpingo-oophrectomy Results Radiology Reports * Exam Date Time Procedure Performing Provider Status 11/13/20 6:35 PM Chest 2 Views Frontal and Lat Elisabeth Giraldo; Cody (Verified) Notes: (Chest 2 Views Frontal and Lat) Reason For Exam: Shortness of Breath, Fever;Other: RESULT: Chest 2 Views Frontal and Lat Chest 2 Views Frontal and Lat Hx of Present Illness: 2 day onset sob worsening left sided anterior chest pain, pt sts reproducible on palpation and deep inspiration. pt audible wheezing, neg covid test within last several days.; Reason: Other:; Shortness of Breath, Fever; Clinical Question(s): Pneumonia COMPARISON: [facility], most recent dated earlier the same day. FINDINGS: LINES AND TUBES: None. LUNGS AND PLEURA: There is slight diffuse prominence of the interstitial markings in both lungs, suggestive of mild interstitial pulmonary edema. No focal consolidation seen. Mild central vascular congestion. No pleural effusion. No pneumothorax. HEART, MEDIASTINUM AND MARIS: Mildly enlarged cardiac silhouette. Normal upper mediastinal and hilar contour. BONES AND SOFT TISSUES: No acute abnormality. IMPRESSION: Mild prominence of bilateral interstitial markings and bilateral central vascular congestion, suggestive of mild CHF/interstitial pulmonary edema. No focal consolidation. Mildly enlarged cardiac silhouette.. WSN: [id number] Ordering Physician: Chip Silva Dictated By: Tasha Hogan MD Dictated Date/Time: 11/13/20 6:39 pm Reviewed By: Tasha Hogan MD Signed By: Tasha Hogan MD Signed Date/Time: 11/13/20 6:39 pm Transcribed By: RONNIE Transcribed Date/Time: 11/13/20 6:37 pm * Exam Date Time Procedure Performing Provider Status 11/13/20 5:50 PM Chest Portable Elisabeth Giraldo; Cody ( Verified) Notes: (Chest Portable) Reason For Exam: Shortness of Breath RESULT: Chest Portable Chest Portable Hx of Present Illness: 2 day onset sob worsening left sided anterior chest pain, pt sts reproducible on palpation and deep inspiration. pt audible wheezing, neg covid test within last several days.; Reason: Shortness of Breath; Clinical Question(s): CHF COMPARISON: 05/30/2020 FINDINGS: Examination is underexposed. LINES AND TUBES: None. LUNGS AND PLEURA: Right lung is clear. Suboptimal evaluation of the left lower lung. Left upper lung is clear. No pleural effusion. No pneumothorax. HEART, MEDIASTINUM AND MARIS: Mild prominence of the cardiac silhouette. Aorta is mildly calcified. BONES AND SOFT TISSUES: No acute abnormality. IMPRESSION: 1. Examination is underexposed. 2. Clear right lung. 3. Suboptimal evaluation of the left lower lung. 4. Mild cardiac enlargement. WSN: [id number] Ordering Physician: Chip Silva Dictated By: Deric Gant DO Dictated Date/Time: 11/13/20 5:52 pm Reviewed By: Deric Gant DO Signed By: Deric Gant DO Signed Date/Time: 11/13/20 5:52 pm Transcribed By: RONNIE Transcribed Date/Time: 11/13/20 5:51 pm Vital Signs Most recent to oldest [Reference Range]: 1 2 3 Height 153 cm (11/13/20 6:51 PM) 153 cm (11/13/20 5:40 PM) 153 cm (11/13/20 5:22 PM) Weight 102.4 kg (11/13/20 6:51 PM) 102.4 kg (11/13/20 5:40 PM) 102.4 kg (11/13/20 5:22 PM) Oxygen Saturation [94-100 %] 96 % (11/13/20 10:51 PM) 96 % (11/13/20 9:55 PM) 95 % (11/13/20 6:51 PM) Pulse Rate [55-90 bpm] 72 bpm (11/13/20 10:51 PM) 72 bpm (11/13/20 9:55 PM) 70 bpm (11/13/20 6:51 PM) Body Mass Index [18.5-24.99] 43.74 *>HHI* (11/13/20 6:51 PM) 43.74 *>HHI* (11/13/20 5:22 PM) Blood Pressure [90-138/55-84 mm Hg] 136/46mm Hg (11/13/20 10:51 PM) 129/43mm Hg (11/13/20 9:55 PM) 147/65mm Hg *H* (11/13/20 6:51 PM) Respiratory Rate [16-30 br/min] 18 br/min (11/13/20 10:51 PM) 18 br/min (11/13/20 10:51 PM) 18 br/min (11/13/20 9:55 PM) Temperature [96.8-100.4 DegF] 98.1 DegF (11/13/20 5:22 PM) Liters per Minute 6 L/min (11/13/20 5:44 PM) Mode of Delivery (Oxygen) Room air (11/13/20 10:51 PM) Room air (11/13/20 9:55 PM) Room air (11/13/20 6:51 PM) Blood pressure sites Arm, left (11/13/20 10:51 PM) Arm, right (11/13/20 6:51 PM) Temperature Route Temporal (11/13/20 5:22 PM) Dry Weight 102.4 kg (11/13/20 6:51 PM) 102.4 kg (11/13/20 5:40 PM) 102.4 kg (11/13/20 5:22 PM) Weight Obtained Via Standing scale (11/13/20 5:22 PM) Dry Weight Obtained Via Standing scale (11/13/20 5:22 PM) Social History Social History Type Response Smoking Status Former smoker; Tobac co user in household: No; Type: Cigarettes; Stopped at age: 48; Tobacco use times per day: up to 2 ppd; Started at age: 16; entered on: 11/08/14 Sex
--- OUTSIDE RECORDS SUMMARY | 2023-03-06 14:43 | XMS_ITS | Continuity of Care Document ---
Author Name Unknown Organization [facility] Jyoti Mejia Surger y Address [address], [facility] [address] [place] [address]- Care Team Providers Care Risk Control Officer Name Role Phone Rj PRICING COORDINATOR, Winsome Weiss Primary Care Physician [phone] Encounter [facility] Date(s): 10/05/20 - 11/04/20 [facility] [address] [place] [address]- Attending Physician: Admtr, Wilian8 Admitting Physician: Admtr, [...] [07/11/2018] [facility] 2Result Comment: [11/11/2015] given at [facility] [address] [place] [address] [phone] 3Result Comment: [07/11/2018] [facility] 5Admin Note: given at [facility] in [place], [place] 6Location History[facility] 7Admin Note: boostrix [...] 06/21/20 16:00:00 EST, Route to Pharmacy Electronically, [facility] #[id number], 149.9, cm, 06/21/20 13:54:00 EST, Height, 103.8, [...] 5 Refills, Maintenance, 07/22/20 9:23:00 EST, Tablet, [facility] #[id number], 153, cm, 07/22/20 9:04:00 EST, Height, 106, kg, 07/08/20 13:49:00 EST, Dry Weight Start Date: 07/22/20 Stop Date: 01/18/21 Status: Ordered ferrous sulfate 325 mg oral enteric coated tablet 325 mg, 1, tablet, By Mouth, 2 times a day, may take with food to minimize abdominal discomfort, # 180 tablet, Refills 1, Tot. Refills 1, Maintenance, 10/04/20 16:08:00 EST, Route to Pharmacy Electronically, [facility] #[id number], 150, cm, 09/26... Start Date: 10/04/20 Stop Date: 04/02/21 Status: Ordered Flovent HFA 220 mcg/inh inhalation aerosol 2 puffs, Inhalation, 2 times a day, # 1 each, 6 Refills, Maintenance, 05/30/20 10:57:00 EDT, Aerosol, [facility] #[id number], 149.9, cm, 05/30/20 10:53:00 EDT, Height, 103.8, kg, 03/07/20 10:17:00 EDT, Dry Weight Start Date: 05/30/20 Stop Date: 12/26/20 Status: Ordered gabapentin 100 mg oral capsule 200 mg, 2, capsule, By Mouth, 3 times a day, # 180 capsule, Refills 1, Tot. Refills 1, Maintenance,09/14/20 15:22:00 EST, Route to Pharmacy Electronically, [facility] #[id number], Partial fill upon patient request if the prescription is for a sc... Start Date: 09/14/20 Status: Ordered levothyroxine 0.025 mg oral tablet 1 tablet, By Mouth, Daily, BUBBLE PACK PLEASE, # 30 tablet, 5 Refills, Maintenance, 07/22/20 9:24:00 EST, Tablet, [facility] #[id number], 153, cm, 07/22/20 9:04:00 EST, Height, 106, kg, 07/08/2013:49:00 EST, Dry Weight Start Date: 07/22/20 Stop Date: 01/18/21 Status: Ordered lisinopril 20 mg oral tablet 20 mg, 1, tablet, By Mouth, Daily, BUBBLE PACK PLEASE, # 30 tablet, Refills 5, Tot. Refills 5, Maintenance, 04/27/20 9:21:00 EDT, Route to Pharmacy Electronically, [facility] #[id number], 149.9,cm, 04/27/20 9:00:00 EDT, Height, 103.8, kg, ... Start Date: 04/27/20 Stop Date: 10/24/20 Status: Ordered LORazepam 1 mg oral tablet 1 tablet = 1 mg, By Mouth, Daily, PRN as needed for anxiety, # 30 tablet, 0 Refills, Maintenance, 09/16/20 15:53:00 EST, Tablet, [facility] #[id number], 153, cm, 09/14/20 13:47:00 EST, Height, 106, kg, 07/08/20 13:49:00 EST, Dry Weight Start Date: 09/16/20 Stop Date: 10/16/20 Status: Ordered nortriptyline 50 mg oral capsule 50 mg, 1, capsule, By Mouth, Daily, BUBBLE PACK PLEASE, # 30 capsule, Refills 6, Tot. Refills 6, Maintenance, 03/25/20 19:21:00 EDT, Route to Pharmacy Electronically, [facility] #[id number], 149.9, cm, 03/07/20 10:17:00 EDT, Height, 103.8, kg, 07... Start Date: 03/25/20 Stop Date: 10/21/20 Status: Ordered nystatin topical 068992 u/gm ointment 1 application, Topically, 3 times [...] Refills, Maintenance, 10/24/20 9:19:00 EDT, EC Capsule, [facility] #[id number], 149.9, cm, 06/14/20 14:58:00 EST, Height, 101, kg, 06/07/20 10:02:00 EDT, Dry Weight Start Date: 10/24/20 Stop Date: 02/21/21 Status: Ordered Singulair 10 mg oral tablet 10 mg, 1, tablet, By Mouth, Daily in PM, BUBBLE PACK PLEASE, # 30 tablet, Refills 5, Tot. Refills 5, Maintenance, 07/22/20 9:24:00 EST, Route to Pharmacy Electronically, [facility] #[id number], 153, cm, 07/22/20 9:04:00 EST, Height, 106, kg, 2... Start Date: 07/22/20 Stop Date: 01/18/21 Status: Ordered traMADol 5 mg/mL oral liquid 10 mL = 50 mg, By Mouth, Every 6 hours, PRN as needed for pain, not to exceed 400 mg/day, # 60 mL, 0 Refills, Maintenance, 09/23/20 17:48:00 EST, Liquid, Partial fill upon patient request if the prescription is for a schedule II opioid drug., 151, cm,... Start Date: 09/23/20 Stop Date: 09/25/20 Status: Ordered Turmeric 500 mg oral capsule 1 capsule = 500 mg, By Mouth, 2 times a day, # 60 capsule, 0 Refills, Maintenance, 09/14/20 13:52:00 EST, Capsule, Partial fill upon patient request if the prescription is for a schedule II opioid drug. Start Date: 09/14/20 Status: Ordered Xopenex HFA 45 mcg/inh inhalation [...] Numbness and tingling in hands(Confirmed) Active *[facility] [phone] CARE MANAG ER HELEN MGJUAN LUIS(Confirmed) Active Rib pain on left side(Confirmed) Active [...]
--- OUTSIDE RECORDS SUMMARY | 2023-03-06 14:43 | XMS_ITS | Continuity of Care Document ---
Author Name Unknown Organization [facility] Address [address] [place] [address]- Care Team Providers Care Pattern Room Attendant Name Role Phone Rj INGOT CASTER, Winsome Weiss Primary Care Physician [phone] Encounter [facility] Date(s): 03/05/22 - 04/04/22 [facility] [employer] [facility] [address] [place], [place] [address] Allergies, Adverse Reactions, Alerts Substance Reaction Severity [...] sukhi 1Result Comment: [07/11/2018] [facility] 3Admin Note: given at [facility] in [place], [place] 4Result Comment: [07/11/2018] [facility] 5Result Comment: [11/11/2015] given at [facility] [address] [place] [address] [phone] 6Location History[facility] 7Admin Note: [facility] vis [...] 01/19/22 19:16:00 EDT, Route to Pharmacy Electronically, [facility] #[id number], Partial fill upon patientrequest if the prescription is for a schedule II op... Start Date: 01/19/22 Status: Ordered docusate sodium 100 mg oral capsule TAKE 1 CAPSULE BY MOUTH TWICE DAILY NEEDED FOR CONSTIPATION Start Date: 02/20/22 Status: Ordered escitalopram 20 mg oral tablet 1 tablet = 20 mg, By Mouth, Daily, # 90 tablet, 1 Refills, Maintenance, 11/29/21 7:27:00 EDT, Tablet, [facility] #[id number], 150, cm, 11/03/21 13:46:00 EDT, Height, 100.8, [...] 12/01/21 16:35:00 EDT, Route to Pharmacy Electronically, [facility] #[id number], Partial fill upon patient request if the prescription is for a sched... Start Date: 12/01/21 Stop Date: 05/30/22 Status: Ordered gabapentin 100 mg oral capsule 200 mg, 2, capsule, By Mouth, 3 times a day, 2 capsules to equal 200 mg three times a day., # 180 capsule, Refills 3, Tot. Refills 3, Maintenance, 12/05/21 20:30:00 EDT, Route to Pharmacy Electronically, [facility] #[id number], Partial fill upon... Start Date: 12/05/21 Status: [...] mL, 3 Refills, Maintenance, 11/29/21 21:45:00 EDT, [facility] #[id number], Partial fill upon patient request if the prescriptionis for a schedule II opioid drug., 150, cm, ... Start Date: 11/29/21 Status: Ordered levothyroxine 0.025 mg oral tablet 1 tablet, By Mouth, Daily, # 90 tablet, 1 Refills, Maintenance, 11/29/21 7:27:00 EDT, Tablet, [facility] #[id number], 150, cm, 11/03/21 13:46:00 EDT, Height, 100.8, [...] 0 Refills, Maintenance, 03/01/22 11:00:00 EDT, Tablet, [facility], Partial fill upon patient request if [...] 3 Refills, Maintenance, 04/05/21 13:22:00 EDT, Tablet, [facility] #[id number], Part... Start Date: 04/05/21 Stop Date: 08/03/21 Status: Ordered NovoLOG FlexPen 100 units/mL injectable solution See Instructions, Subcutaneous Infusion 3 times a day before meals. Sliding scale:: 150-200 2 [id number] UNITS 300-350 6 UNITS, # 3 mL, 3 Refills, Maintenance, 12/01/21 11:54:00 EDT, [facility] #[id number], Partial fill upon patient requ... Start Date: [...] 01/19/22 13:52:00 EDT, Route to Pharmacy Electronically, [facility] #[id number], Partial fill upon patient request... Start Date: [...] 10/14/21 18:18:00 EST, Route to Pharmacy Electronically, [facility] #[id number],148.4, cm, 10/05/21 10:50:00 EST, Height, 104.5, kg... Start Date: 10/14/21 Stop Date: 04/12/22 Status: Ordered trospium 60 mg oral capsule, extended release 1 capsule = 60 mg, By Mouth, Daily in AM, # 90 capsule, 0 Refills, Maintenance, 04/04/22 8:37:00 EDT, [facility] #[id number], Partial fill upon patient request if the [...] opioid drug. Start Date: 12/22/21 Status: Ordered Xopenex HFA 45 mcg/inh inhalation [...] Numbness and tingling in hands(Confirmed) Active *[facility] [phone] CARE MANAG ER HELEN ROWDY(Confirmed) Active Hepatitis [...]
--- OUTSIDE RECORDS SUMMARY | 2023-03-06 14:43 | XMS_ITS | Continuity of Care Document ---
Author Name Unknown Organization [facility] Address [address] [place] [phone]- Care Team Providers Care Medical Director/Head Team Physician Name Role Phone Rj TRACK LEADER, Winsome Weiss Primary Care Physician [phone] Encounter [facility] Date(s): 01/19/22 - 01/26/22 [facility] [address] [place] [phone]- Encounter Diagnosis DM2 (diabetes mellitus, type 2)(Discharge Diagnosis) - 01/19/22 Anxiety and depression(Discharge Diagnosis) - 01/19/22 C2 cervical fracture(Discharge Diagnosis) - 01/19/22 Physical deconditioning(Discharge Diagnosis) - 01/19/22 HTN (hypertension)(Discharge Diagnosis) - 01/19/22 Attending Physician: Brandy Simon NP Allergies, Adverse Reactions, Alerts Substance Reaction [...] 2[facility] 3Admin Note: given at [facility] in [place], [place] 4Result Comment: [07/11/2018] [facility] 5Result Comment: [11/11/2015] given at [facility] [address] [place] [address] [phone] 6Location History[facility] 7Admin Note: boostrix vis [...] 01/19/22 19:16:00 EDT, Route to Pharmacy Electronically, [facility] #[id number], Partial fill upon patientrequest if the prescription is for a schedule II op... Start Date: 01/19/22 Status: Ordered escitalopram 20 mg oral tablet 1 tablet = 20 mg, By Mouth, Daily, # 90 tablet, 1 Refills, Maintenance, 11/29/21 7:27:00 EDT, Tablet, [facility] #[id number], 150, cm, 11/03/21 13:46:00 EDT, Height, 100.8, kg, 11/01/21 22:19:00EDT, Dry Weight Start Date: 11/29/21 Stop Date: 05/28/22 Status: Ordered furosemide 20 mg oral tablet 20 mg, 1, tablet, By Mouth, 2 times a day, # 180 tablet, Refills 1, Tot. Refills 1, Maintenance, 12/01/21 16:35:00 EDT, Route to Pharmacy Electronically, [facility] #[id number], Partial fill upon patient request if the prescription is for a sched... Start Date: 12/01/21 Stop Date: 05/30/22 Status: Ordered gabapentin 100 mg oral capsule 200 mg, 2, capsule, By Mouth, 3 times a day, 2 capsules to equal 200 mg three times a day., # 180 capsule, Refills 3, Tot. Refills 3, Maintenance, 12/05/21 20:30:00 EDT, Route to Pharmacy Electronically, [facility] #[id number], Partial fill upon... Start Date: 12/05/21 Status: [...] 04/06/21 12:52:00 EDT, Route to Pharmacy Electronically, [facility] #[id number], Partial fill upon patient request if the prescription is for a schedule... Start Date: 04/06/21 Status: Ordered Lantus Solostar Pen 100 units/mL subcutaneous solution = 15 units, Subcutaneous Infusion, Daily, with evening meal, # 15 mL, 3 Refills, Maintenance, 11/29/21 21:45:00 EDT, [facility] #[id number], Partial fill upon patient request if the prescriptionis for a schedule II opioid drug., 150, cm, ... Start Date: 11/29/21 Status: Ordered levothyroxine 0.025 mg oral tablet 1 tablet, By Mouth, Daily, # 90 tablet, 1 Refills, Maintenance, 11/29/21 7:27:00 EDT, Tablet, [facility] #[id number], 150, cm, 11/03/21 13:46:00 EDT, Height, 100.8, [...] 3 Refills, Maintenance, 04/05/21 13:22:00 EDT, Tablet, [email or web address] #[id number], Part... Start Date: 04/05/21 Stop Date: 08/03/21 Status: Ordered NovoLOG FlexPen 100 units/mL injectable solution See Instructions, Subcutaneous Infusion 3 times a day before meals. Sliding scale:: 150-200 2 [id number] 4 UNITS 300-350 6 UNITS, # 3 mL, 3 Refills, Maintenance, 12/01/21 11:54:00 EDT, [facility] #[id number], Partial fill upon patient requ... Start Date: [...] 01/19/22 13:52:00 EDT, Route to Pharmacy Electronically, [facility][id number], Partial fill upon patient request... Start Date: [...] 10/14/21 18:18:00 EST, Route to Pharmacy Electronically, [facility] #[id number],148.4, cm, 10/05/21 10:50:00 EST, Height, 104.5, kg... Start Date: 10/14/21 Stop Date: 04/12/22 Status: Ordered spironolactone 100 mg oral tablet 100 mg, 1, tablet, By Mouth, Daily, # 90 tablet, Refills 1, Tot. Refills 1, Maintenance, 12/01/21 16:34:00 EDT, Route to Pharmacy Electronically, [facility] #[id number], Partial fill upon patient request if the [...] 11 Refills, Maintenance, 01/06/21 14:47:00 EDT, Powder, [facility] #[id number], Partial fill upon patient request if the [...] Active Numbness and tingling in hands(Confirmed) Active *[facility] [phone] CARE MANAG ER HELEN BOSEHerberth(Confirmed) Active Hepatitis C virus infection resolved after antiviral drug therapy(Confirmed) Active Portal hypertension with eso phageal varices(Confirmed) Active Severe obesity(Confirmed) Active DM2 (diabetes mellitus, type 2)(Confirmed) Active Urge urinary incontinence(Confirmed) Active 1tx with apc today due to bleeding. 2possibly Type III 33+ 4s/p bilateral salpingo-oophrectomy Diagnosis Diagnosis Type Effective Dates Health Status Clinical Service Informant DM2 (diabetes mellitus, type 2) Discharge Diagnosis 01/19/22 Anxiety and depression Discharge Diagnosis 01/19/22 C2 cervical fracture Discharge Diagnosis 01/19/22 Physical deconditioning Discharge Diagnosis 01/19/22 HTN (hypertension) Discharge Diagnosis 01/19/22 Vital Signs Most recent to oldest [Reference Range]: 1 Height 150 cm (01/19/22 12:27 PM) Social History Social History Type Response Smoking Status Former smoker; Tobac co user in household: No; Type: Cigarettes; Tobacco use times per day: up to 2 ppd; Started at age: 16; Stopped at age: 48; entered on: 11/08/14 Sex
--- OUTSIDE RECORDS SUMMARY | 2023-03-06 14:44 | XMS_ITS | Continuity of Care Document ---
Author Name Unknown Organization [facility] Address [address] [place] [address]- Care Team Providers Care Hospital Unit Coordinator Name Role Phone Rj FEATHER EDGER, Winsome Weiss Primary Care Physician [phone] Encounter [facility] Date(s): 03/07/22 - 03/07/[address] [address]- Discharge Disposition: A-D/C Home Attending Physician: Kamari Roman MD Admitting Physician: Kamari Roman MD Referring Physician: Not on Staff, Referring [...] 2[facility] 3Admin Note: given at [facility] in [place], [place] 4Result Comment: [07/11/2018] [facility] 5Result Comment: [11/11/2015] given at [facility] [address] [place] [address] [phone] 6Location History[facility] 7Admin Note: [facility] vis [...] 01/19/22 19:16:00 EDT, Route to Pharmacy Electronically, [facility] #[id number], Partial fill upon patientrequest if the prescription is for a schedule II op... Start Date: 01/19/22 Status: Ordered docusate sodium 100 mg oral capsule TAKE 1 CAPSULE BY MOUTH TWICE DAILY NEEDED FOR CONSTIPATION Start Date: 02/20/22 Status: Ordered escitalopram 20 mg oral tablet 1 tablet = 20 mg, By Mouth, Daily, # 90 tablet, 1 Refills, Maintenance, 11/29/21 7:27:00 EDT, Tablet, [facility] #[id number], 150, cm, 11/03/21 13:46:00 EDT, Height, 100.8, [...] 12/01/21 16:35:00 EDT, Route to Pharmacy Electronically, [facility] #07805, Partial fill upon patient request if the prescription is for a sched... Start Date: 12/01/21 Stop Date: 05/30/22 Status: Ordered gabapentin 100 mg oral capsule 200 mg, 2, capsule, By Mouth, 3 times a day, 2 capsules to equal 200 mg three times a day., # 180 capsule, Refills 3, Tot. Refills 3, Maintenance, 12/05/21 20:30:00 EDT, Route to Pharmacy Electronically, [facility] #[id number], Partial fill upon... Start Date: 12/05/21 Status: [...] mL, 3 Refills, Maintenance, 11/29/21 21:45:00 EDT, [facility] #[id number], Partial fill upon patient request if the prescriptionis for a schedule II opioid drug., 150, cm, ... Start Date: 11/29/21 Status: Ordered levothyroxine 0.025 mg oral tablet 1 tablet, By Mouth, Daily, # 90 tablet, 1 Refills, Maintenance, 11/29/21 7:27:00 EDT, Tablet, [facility] #[id number], 150, cm, 11/03/21 13:46:00 EDT, Height, 100.8, [...] 0 Refills, Maintenance, 03/01/22 11:00:00 EDT, Tablet, [facility] 3, Partial fill upon patient request [...] 3 Refills, Maintenance, 04/05/21 13:22:00 EDT, Tablet, [facility] #00778, Part... Start Date: 04/05/21 Stop Date: 08/03/21 Status: Ordered NovoLOG FlexPen 100 units/mL injectable solution See Instructions, Subcutaneous Infusion 3 times a day before meals. Sliding scale:: 150-200 2 [id number] 4 UNITS 300-350 6 UNITS, # 3 mL, 3 Refills, Maintenance, 12/01/21 11:54:00 EDT, [facility] #[id number], Partial fill upon patient requ... Start Date: 12/01/21 Status: Ordered OneTouch Verio Glucose Meter See Instructions, # 1 each, Maintenance, USE TO TEST BLOOD SUGARS THREE TIMES DAILY. DX:E11.9, 03/05/22 16:19:00 EDT, Supply, 150, cm, 03/01/22 7:16:00 EDT, Height, 97, kg, 02/06/22 10:00:00 EDT, DryWeight Start Date: 03/05/22 Status: Ordered oxyCODONE 5 mg oral tablet 5 mg, Tablet, By Mouth, Once, Routine, 03/07/22 21:00:00 EDT, Stop date 03/07/22 21:00:00 EDT Start Date: 03/07/22 Stop Date: 03/07/22 Status: Completed oxyCODONE 5 mg oral tablet 5 mg, 1, tablet, By Mouth, 3 times a day, PRN, MassPat checked, # 10 tablet, Refills 0, Tot. Refills 0, Maintenance, Pain , Severe, 01/19/22 13:52:00 EDT, Route to Pharmacy Electronically, [facility] #[id number], Partial fill upon patient request... Start Date: [...] 10/14/21 18:18:00 EST, Route to Pharmacy Electronically, [facility] #[id number],148.4, cm, 10/05/21 10:50:00 EST, Height, 104.5, kg... Start Date: 10/14/21 Stop Date: 04/12/22 Status: Ordered trospium 60 mg oral capsule, extended release 1 capsule = 60 mg, By Mouth, Daily in AM, # 30 capsule, 0 Refills, Maintenance, 03/05/22 11:28:00 EDT, [facility] #[id number], Partial fill upon patient request if the prescription is for a schedule II opioid drug., 150, cm, 03/01/22 7:16:00 EDT,... 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 2possibly Type III 33+ 4s/p bilateral salpingo-oophrectomy Vital Signs Most recent to oldest [Reference Range]: 1 2 3 Height 150 cm (03/07/22 7:54 PM) 150 cm (03/07/22 6:17 PM) Weight 98 kg (03/07/22 7:54 PM) 98 kg (03/07/22 6:17 PM) Oxygen Saturation [94-100 %] 100 % (03/07/22 7:54 PM) 98 % (03/07/22 6:11 PM) Pulse Rate [55-90 bpm] 78 bpm (03/07/22 7:54 PM) 78 bpm (03/07/22 6:11 PM) Body Mass Index [18.5-24.99] 43.56 *>HHI* (03/07/22 7:54 PM) Blood Pressure [90-138/55-84 mm Hg] 117/55mm Hg (03/07/22 7:54 PM) 141/61mm Hg *H* (03/07/22 6:11 PM) Respiratory Rate [16-30 br/min] 18 br/min (03/07/22 8:17 PM) 17 br/min (03/07/22 7:54 PM) 16 br/min (03/07/22 6:11 PM) Temperature [96.8-100.4 DegF] 98.6 DegF (03/07/22 7:54 PM) 99.2 DegF (03/07/22 6:11 PM) Liters per Minute 0 L/min (03/07/22 7:54 PM) 0 L/min (03/07/22 6:11 PM) Mode of Delivery (Oxygen) Room air (03/07/22 7:54 PM) Room air (03/07/22 6:11 PM) Blood pressure sites Arm, right (03/07/22 7:54 PM) Arm, left (03/07/22 6:11 PM) Temperature Route Oral (03/07/22 7:54 PM) Oral (03/07/22 6:11 PM) Dry Weight 98 kg (03/07/22 7:54 PM) 98 kg (03/07/22 6:17 PM) Social History Social History Type Response Smoking Status Former smoker; Tobac co user in household: No; Type: Cigarettes; Tobacco use times per day: up to 2 ppd; Started at age: 16; Stopped at age: 48; entered on: 11/08/14 Sex
--- OUTSIDE RECORDS SUMMARY | 2023-03-06 14:44 | XMS_ITS | Continuity of Care Document ---
Author Name Unknown Organization [facility] Address [address] [place] [phone]- Care Team Providers Care Apricot Packer Name Role Phone Rj HAMILTON, Winsome Weiss Primary Care Physician [phone] Encounter [facility] Date(s): 06/04/20 - 08/28/20 [facility] [address] [place] [id number] Attending Physician: Kareem LE, Samantha Whitaker Admitting Physician: Samantha Serna MD Referring Physician: Winsome De La Rosa NP Allergies, Adverse Reactions, Alerts Substance Reaction Severity Status penicillins gerd gi distress Headache Active Bee Stings anaphylaxis Persistent Severe Active aspirin hives unknown Persistent Mild Active Immunizations Given and Recorded Vaccine Date [...] [07/11/2018] [facility] 2Result Comment: [11/11/2015] given at [facility] [address] [place] [phone] 3Result Comment: [07/11/2018] [facility] 5Admin Note: given at [facility] in [place], [place] 6Location History: [facility] 7Admin Note: [facility]rix [...] 06/21/20 16:00:00 EST, Route to Pharmacy Electronically, [facility] #[id number], 149.9, cm, 06/21/20 13:54:00 EST, Height, 103.8, [...] 5 Refills, Maintenance, 07/22/20 9:23:00 EST, Tablet, [facility][id number], 153, cm, 07/22/20 9:04:00 EST, Height, 106, kg, 07/08/20 13:49:00 EST, Dry Weight Start Date: 07/22/20 Stop Date: 01/18/21 Status: Ordered ferrous sulfate 325 mg oral enteric coated tablet 325 mg, 1, tablet, By Mouth, 2 times a day, # 180 tablet, Refills 1, Tot. Refills 1, Maintenance, 12/24/18 14:50:03 EDT, Route to Pharmacy Electronically, [id number] Start Date: 12/24/18 Stop Date: 06/22/19 Status: Ordered Flovent HFA 220 mcg/inh inhalation aerosol 2 puffs, Inhalation, 2 times a day, # 1 each, 6 Refills, Maintenance, 05/30/20 10:57:00 EDT, Aerosol, [facility] #[id number], 149.9, cm, 05/30/20 10:53:00 EDT, Height, 103.8, kg, 03/07/20 10:17:00 EDT, Dry Weight Start Date: 05/30/20 Stop Date: 12/26/20 Status: Ordered gabapentin 100 mg oral capsule 100 mg, 1, capsule, By Mouth, 2 times a day, BUBBLE PACK PLEASE, # 60 capsule, Refills 3, Tot. Refills 3, Maintenance, 07/22/20 9:24:00 EST, Route to Pharmacy Electronically, [facility] #[id number], 153, cm, 07/22/20 9:04:00 EST, Height, 106, kg,... Start Date: 07/22/20 Stop Date: 11/19/20 Status: Ordered levothyroxine 0.025 mg oral tablet 1 tablet, By Mouth, Daily, BUBBLE PACK PLEASE, # 30 tablet, 5 Refills, Maintenance, 07/22/20 9:24:00 EST, Tablet, [facility] #[id number], 153, cm, 07/22/20 9:04:00 EST, Height, 106, kg, 07/08/2013:49:00 EST, Dry Weight Start Date: 07/22/20 Stop Date: 01/18/21 Status: Ordered lisinopril 20 mg oral tablet 20 mg, 1, tablet, By Mouth, Daily, BUBBLE PACK PLEASE, # 30 tablet, Refills 5, Tot. Refills 5, Maintenance, 04/27/20 9:21:00 EDT, Route to Pharmacy Electronically, [facility] #[id number], 149.9,cm, 04/27/20 9:00:00 EDT, Height, 103.8, kg, 03/07/... Start Date: 04/27/20 Stop Date: 10/24/20 Status: Ordered LORazepam 1 mg oral tablet 1 tablet = 1 mg, By Mouth, Daily, PRN as needed for anxiety, # 30 tablet, 0 Refills, Maintenance, 07/22/20 9:23:00 EST, Tablet, [facility] #[id number], 153, cm, 07/22/20 9:04:00 EST, Height, 106, kg, 07/08/20 13:49:00 EST, Dry Weight Start Date: 07/22/20 Stop Date: 08/21/20 Status: Ordered nortriptyline 50 mg oral capsule 50 mg, 1, capsule, By Mouth, Daily, BUBBLE PACK PLEASE, # 30 capsule, Refills 6, Tot. Refills 6, Maintenance, 03/25/20 19:21:00 EDT, Route to Pharmacy Electronically, [facility] #[id number], 149.9, cm, 03/07/20 10:17:00 EDT, Height, 103.8, kg, 07... Start Date: 03/25/20 Stop Date: 10/21/20 Status: Ordered nystatin topical 330850 u/gm ointment 1 application, Topically, 3 times [...] Refills, Maintenance, 10/24/20 9:19:00 EDT, EC Capsule, [facility] #[id number], 149.9, cm, 06/14/20 14:58:00 EST, Height, 101, kg, 06/07/20 10:02:00 EDT, Dry Weight Start Date: 10/24/20 Stop Date: 02/21/21 Status: Ordered Singulair 10 mg oral tablet 10 mg, 1, tablet, By Mouth, Daily in PM, BUBBLE PACK PLEASE, # 30 tablet, Refills 5, Tot. Refills 5, Maintenance, 07/22/20 9:24:00 EST, Route to Pharmacy Electronically, [facility] #[id number], 153, cm, 07/22/20 9:04:00 EST, Height, 106, kg, 06/13... Start Date: 12/11/20 Stop Date: 01/18/21 Status: Ordered Xopenex HFA [...] Active Numbness and tingling in hands(Confirmed) Active *[facility] [phone] CARE MANAG ER HELEN DIAMONDSTONE(Confirmed) Active Rib pain on left side(Confirmed) Active [...]
--- OUTSIDE RECORDS SUMMARY | 2023-03-06 14:44 | XMS_ITS | Continuity of Care Document ---
Author Name Unknown Organization [facility] Address [address] [place] [address]- Care Team Providers Care Enrollment Specialist Name Role Phone Rj NURSING PROGRAM COORDINATOR, Winsome M Primary Care Physician [phone] [facility]counter [facility] Date(s): 12/29/19 - 08/03/[address] [address]- Attending Physician: Jaime Black DO Admitting Physician: Jaime Black DO Referring Physician: Jaime Black DO Allergies, Adverse Reactions, Alerts Substance Reaction Severity [...] [facility] 2Result Comment: [11/11/2015] given at [facility] [address] [place] [address] [phone] 3Result Comment: [07/11/2018] [facility] 5Admin Note: given at [facility] in [place], [place] 6Location History[facility] 7Admin Note: [facility]rix [...] 06/21/20 16:00:00 EST, Route to Pharmacy Electronically, [facility] #[id number], 149.9, cm, 06/21/20 13:54:00 EST, Height, 103.8, [...] 5 Refills, Maintenance, 07/22/20 9:23:00 EST, Tablet, [facility] #[id number], 153, cm, 07/22/20 9:04:00 EST, Height, 106, kg, 07/08/20 13:49:00 EST, Dry Weight Start Date: 07/22/20 Stop Date: 01/18/21 Status: Ordered ferrous sulfate 325 mg oral enteric coated tablet 325 mg, 1, tablet, By Mouth, 2 times a day, # 180 tablet, Refills 1, Tot. Refills 1, Maintenance, 12/24/18 14:50:03 EDT, Route to Pharmacy Electronically, [id number], [email or web address] Start Date: 12/24/18 Stop Date: 06/22/19 Status: Ordered Flovent HFA 220 mcg/inh inhalation aerosol 2 puffs, Inhalation, 2 times a day, # 1 each, 6 Refills, Maintenance, 05/30/20 10:57:00 EDT, Aerosol, [facility] #[id number], 149.9, cm, 05/30/20 10:53:00 EDT, Height, 103.8, kg, 03/07/20 10:17:00 EDT, Dry Weight Start Date: 05/30/20 Stop Date: 12/26/20 Status: Ordered gabapentin 100 mg oral capsule 100 mg, 1, capsule, By Mouth, 2 times a day, BUBBLE PACK PLEASE, # 60 capsule, Refills 3, Tot. Refills 3, Maintenance, 07/22/20 9:24:00 EST, Route to Pharmacy Electronically, [facility] #[id number], 153, cm, 07/22/20 9:04:00 EST, Height, 106, kg,... Start Date: 07/22/20 Stop Date: 11/19/20 Status: Ordered levothyroxine 0.025 mg oral tablet 1 tablet, By Mouth, Daily, BUBBLE PACK PLEASE, # 30 tablet, 5 Refills, Maintenance, 07/22/20 9:24:00 EST, Tablet, [facility] #[id number], 153, cm, 07/22/20 9:04:00 EST, Height, 106, kg, 07/08/2013:49:00 EST, Dry Weight Start Date: 07/22/20 Stop Date: 01/18/21 Status: Ordered lisinopril 20 mg oral tablet 20 mg, 1, tablet, By Mouth, Daily, BUBBLE PACK PLEASE, # 30 tablet, Refills 5, Tot. Refills 5, Maintenance, 04/27/20 9:21:00 EDT, Route to Pharmacy Electronically, [facility] #[id number], 149.9,cm, 04/27/20 9:00:00 EDT, Height, 103.8, kg, 03/07/... Start Date: 04/27/20 Stop Date: 10/24/20 Status: Ordered LORazepam 1 mg oral tablet 1 tablet = 1 mg, By Mouth, Daily, PRN as needed for anxiety, # 30 tablet, 0 Refills, Maintenance, 07/22/20 9:23:00 EST, Tablet, [facility][id number], 153, cm, 07/22/20 9:04:00 EST, Height, 106, kg, 07/08/20 13:49:00 EST, Dry Weight Start Date: 07/22/20 Stop Date: 08/21/20 Status: Ordered nortriptyline 50 mg oral capsule 50 mg, 1, capsule, By Mouth, Daily, BUBBLE PACK PLEASE, # 30 capsule, Refills 6, Tot. Refills 6, Maintenance, 03/25/20 19:21:00 EDT, Route to Pharmacy Electronically, [facility] #[id number], 149.9, cm, 03/07/20 10:17:00 EDT, Height, 103.8, kg, 07... Start Date: 03/25/20 Stop Date: 10/21/20 Status: Ordered nystatin topical 957123 u/gm ointment 1 application, Topically, 3 times [...] Refills, Maintenance, 10/24/20 9:19:00 EDT, EC Capsule, [facility] #[id number], 149.9, cm, 06/14/20 14:58:00 EST, Height, 101, kg, 06/07/20 10:02:00 EDT, Dry Weight Start Date: 10/24/20 Stop Date: 02/21/21 Status: Ordered Singulair 10 mg oral tablet 10 mg, 1, tablet, By Mouth, Daily in PM, BUBBLE PACK PLEASE, # 30 tablet, Refills 5, Tot. Refills 5, Maintenance, 07/22/20 9:24:00 EST, Route to Pharmacy Electronically, [facility] #[id number], 153, cm, 07/22/20 9:04:00 EST, Height, 106, [...] and tingling in hands(Confirmed) Active *[facility] [phone] CARE MANAG ER HELEN RENO(Confirmed) Active Rib [...]
--- OUTSIDE RECORDS SUMMARY | 2023-03-06 14:44 | XMS_ITS | Continuity of Care Document ---
Author Name Unknown Organization [facility] Address [address] [place] [address], [address] [place] [address]- Care Team Providers Care Volunteer Recruiter Name Role Phone Rj TREASURY MANAGEMENT SALES CONSULTANT, Winsome Weiss Primary Care Physician Encounter [facility] Date(s): 12/20/21 - 02/15/22 [facility] [address] [place] [address] Drive, [address] [place] [address]- Attending Physician: Not on Staff, Attending MD [...] 2[facility] 3Admin Note: given at [facility] in [place] 4Result Comment: [07/11/2018] [facility] 5Result Comment: [11/11/2015] given at [facility] [address] [place] [address] [phone] 6[facility] History[facility] 7Admin Note: boostrix vis [...] 01/19/22 19:16:00 EDT, Route to Pharmacy Electronically, [facility] #[id number], Partial fill upon patientrequest if the prescription is for a schedule II op... Start Date: 01/19/22 Status: Ordered escitalopram 20 mg oral tablet 1 tablet = 20 mg, By Mouth, Daily, # 90 tablet, 1 Refills, Maintenance, 11/29/21 7:27:00 EDT, Tablet, [facility] #[id number], 150, cm, 11/03/21 13:46:00 EDT, Height, 100.8, kg, 11/01/21 22:19:00EDT, Dry Weight Start Date: 11/29/21 Stop Date: 05/28/22 Status: Ordered furosemide 20 mg oral tablet 20 mg, 1, tablet, By Mouth, 2 times a day, # 180 tablet, Refills 1, Tot. Refills 1, Maintenance, 12/01/21 16:35:00 EDT, Route to Pharmacy Electronically, [facility] #[id number], Partial fill upon patient request if the prescription is for a sched... Start Date: 12/01/21 Stop Date: 05/30/22 Status: Ordered gabapentin 100 mg oral capsule 200 mg, 2, capsule, By Mouth, 3 times a day, 2 capsules to equal 200 mg three times a day., # 180 capsule, Refills 3, Tot. Refills 3, Maintenance, 12/05/21 20:30:00 EDT, Route to Pharmacy Electronically, [facility] #[id number], Partial fill upon... Start Date: 12/05/21 Status: [...] mL, 3 Refills, Maintenance, 11/29/21 21:45:00 EDT, [facility] #[id number], Partial fill upon patient request if the prescriptionis for a schedule II opioid drug., 150, cm, ... Start Date: 11/29/21 Status: Ordered levothyroxine 0.025 mg oral tablet 1 tablet, By Mouth, Daily, # 90 tablet, 1 Refills, Maintenance, 11/29/21 7:27:00 EDT, Tablet, [facility] #59735, 150, cm, 11/03/21 13:46:00 EDT, Height, 100.8, [...] 3 Refills, Maintenance, 04/05/21 13:22:00 EDT, Tablet, [facility] #70173, Part... Start Date: 04/05/21 Stop Date: 08/03/21 Status: Ordered NovoLOG FlexPen 100 units/mL injectable solution See Instructions, Subcutaneous Infusion 3 times a day before meals. Sliding scale:: 150-200 2 [id number] 4 UNITS 300-350 6 UNITS, # 3 mL, 3 Refills, Maintenance, 12/01/21 11:54:00 EDT, [facility] #[id number], Partial fill upon patient requ... Start Date: [...] 01/19/22 13:52:00 EDT, Route to Pharmacy Electronically, [facility] #[id number], Partial fill upon patient request... Start Date: [...] 10/14/21 18:18:00 EST, Route to Pharmacy Electronically, [facility] #[id number],148.4, cm, 10/05/21 10:50:00 EST, Height, 104.5, kg... Start Date: 10/14/21 Stop Date: 04/12/22 Status: Ordered spironolactone 100 mg oral tablet 100 mg, 1, tablet, By Mouth, Daily, # 90 tablet, Refills 1, Tot. Refills 1, Maintenance, 12/01/21 16:34:00 EDT, Route to Pharmacy Electronically, [facility] #[id number], Partial fill upon patient request if the [...] 11 Refills, Maintenance, 01/06/21 14:47:00 EDT, Powder, [facility] #[id number], Partial fill upon patient request if the [...] tingling in hands(Confirmed) Active *[facility]LY [facility] [phone] CARE MANAG ER HELEN ROWDY(Confirmed) Active Hepatitis [...]
--- OUTSIDE RECORDS SUMMARY | 2023-03-06 14:44 | XMS_ITS | Continuity of Care Document ---
Author Name Unknown Organization [facility] Address [address] [place] [id number]- Care Team Providers Care Audit Consultant Name Role Phone Rj HAMILTON, Winsome Weiss Primary Care Physician Encounter [facility] Date(s): 05/11/21 - 06/10/21 [facility] [address] [place] [address] [place] Allergies, Adverse Reactions, Alerts Substance Reaction [...] [07/11/2018] [facility] 2Result Comment: [11/11/2015] given at [facility] [address] [place], [place] [id number] 3Result Comment: [07/11/2018] [facility] 5Admin Note: given at [facility] in [place], [place] 6Location History: [facility] 7Admin Note: boostrix [...] mL, 11 Refills, Maintenance, 01/06/21 14:51:00 EDT, [place], [facility] #[id number], Partial fill upon patient request if the prescriptionis for a schedule II opioid drug., 2 sprays Nares,... Start Date: 01/06/21 Status: Ordered clopidogrel 75 mg oral tablet 75 mg, 1, tablet, By Mouth, Daily, # 30 tablet, Refills 3, Tot. Refills 3, Maintenance, 04/06/21 16:33:00 EDT, Route to Pharmacy Electronically, [facility] #[id number], Partial fill upon patientrequest if the prescription is for a schedule II op... Start Date: 04/06/21 Status: Ordered dicyclomine 10 mg oral capsule 1 capsule = 10 mg, By Mouth, 4 times a day, PRN Pain , Moderate, # 28 capsule, 0 Refills, Maintenance, 05/11/21 15:51:00 EDT, Capsule, [facility] #13335, Partial fill upon patient request if the prescription is for a schedule II opioid drug.... Start Date: 05/11/21 Stop Date: 05/18/21 Status: Ordered escitalopram 20 mg oral tablet 1 tablet = 20 mg, By Mouth, Daily, # 90 tablet, 1 Refills, Maintenance, 02/14/21 7:29:00 EDT, Tablet, [facility] #[id number], 153, cm, 02/14/21 7:06:00 EDT, Height, 102.4, kg, 11/13/20 18:51:00 EDT, Dry Weight Start Date: 02/14/21 Stop Date: 08/13/21 Status: Ordered ferrous sulfate 325 mg oral enteric coated tablet 325 mg, 1, tablet, By Mouth, 2 times a day, may take with food to minimize abdominal discomfort, # 180 tablet, Refills 1, Tot. Refills 1, Maintenance, 05/02/21 8:25:00 EDT, Route to Pharmacy Electronically, [facility] #[id number], 148.4, cm, 07/0... Start Date: 05/02/21 Stop [...] Maintenance,12/27/20 11:32:00 EDT, Route to Pharmacy Electronically, [facility] #[id number], Partial fill upon patient request if the prescription is for a sc... Start Date: 12/27/20 Status: Ordered isosorbide mononitrate 30 mg oral tablet, extended release 30 mg, 1, tablet, By Mouth, Daily in AM, # 30 tablet, Refills 3, Tot. Refills 3, Maintenance, 04/05/21 13:22:00 EDT, Route to Pharmacy Electronically, [facility] #[id number], Partial fill upon patient request if the prescription is for a schedule... Start Date: 04/05/21 Stop Date: 08/03/21 Status: Ordered isosorbide mononitrate 30 mg oral tablet, extended release 30 mg, 1, tablet, By Mouth, Daily in AM, # 30 tablet, Refills 3, Tot. Refills 3, Maintenance, 04/06/21 12:52:00 EDT, Route to Pharmacy Electronically, [facility] #[id number], Partial fill upon patient request if the prescription is for a schedule... Start Date: 04/06/21 Status: Ordered levothyroxine 0.025 mg oral tablet 1 tablet, By Mouth, Daily, BUBBLE PACK PLEASE, # 90 tablet, 1 Refills, Maintenance, 02/14/21 7:27:00 EDT, Tablet, [facility] #[id number], 153, cm, 02/14/21 7:06:00 EDT, Height, 102.4, kg, 04/04/21 18:51:00 EDT, Dry Weight Start Date: 02/14/21 Stop Date: 08/13/21 Status: Ordered lisinopril 20 mg oral tablet 20 mg, 1, tablet, By Mouth, Daily, BUBBLE PACK PLEASE, # 30 tablet, Refills 5, Tot. Refills 5, Maintenance, 12/15/20 9:29:00 EDT, Route to Pharmacy Electronically, [facility] #[id number], 153, cm, 11/29/20 15:11:00 EDT, Height, 102.4, kg, ... Start Date: 12/15/20 Stop Date: 06/13/21 Status: Ordered LORazepam 1 mg oral tablet 1 tablet = 1 mg, By Mouth, Daily, PRN as needed for anxiety, covering provider, # 30 tablet, 0 Refills, Maintenance, 05/22/21 16:47:00 EDT, Tablet, [facility] #[id number], 148.4, cm, 02/16/21 15:09:00 EDT, Height, 97.6, kg, 02/15/21 17:00:00 EDT,... Start Date: 05/22/21 Stop Date: 06/21/21 Status: Ordered LORazepam 1 mg oral tablet 1 tablet = 1 mg, By Mouth, Daily, PRN as needed for anxiety, # 30 tablet, 0 Refills, Maintenance, 03/24/21 12:18:00 EDT, Tablet, [facility] #[id number], 148.4, cm, 02/16/21 15:09:00 EDT, Height,97.6, kg, [...] 3 Refills, Maintenance, 04/05/21 13:22:00 EDT, Tablet, [facility] #[id number], Part... Start Date: 04/05/21 Stop Date: 08/03/21 Status: Ordered nortriptyline 50 mg oral capsule 50 mg, 1, capsule, By Mouth, Daily, # 90 capsule, Refills 1, Tot. Refills 1, Maintenance, 02/14/21 7:26:00 EDT, Route to Pharmacy Electronically, [facility] #[id number], 153, cm, 02/14/21 7:06:00 EDT, Height, 102.4, kg, 11/13/20 18:51:00 EDT, Dry... Start Date: 02/14/21 Stop Date: 08/13/21 Status: Ordered omeprazole 20 mg oral enteric coated capsule 1 capsule = 20 mg, By Mouth, 2 times a day, BUBBLE PACK PLEASE, # 60 capsule, 3 Refills, Maintenance, 04/21/21 17:24:00 EDT, EC Capsule, [facility] #[id number], 148.4, cm, 02/16/21 15:09:00 EDT,Height, 97.6, kg, 02/15/21 17:00:00 EDT, Dry Weight Start Date: 04/21/21 Stop Date: 08/19/21 Status: Ordered ProAir HFA 90 mcg/inh inhalation aerosol 2 puffs, Inhalation, 4 times a day, PRN Wheezing/Shortness of Breath, # 2 each, 3 Refills, Maintenance, 11/08/20 17:08:00 EDT, Aerosol, [facility] #[id number], Partial fill upon patient request if the prescription is for a schedule II opioid drug... Start Date: 11/08/20 Stop Date: 03/08/21 Status: Ordered Singulair 10 mg oral tablet 10 mg, 1, tablet, By Mouth, Daily in PM, BUBBLE PACK PLEASE, # 30 tablet, Refills 5, Tot. Refills 5, Maintenance, 03/09/21 15:06:00 EDT, Route to Pharmacy Electronically, [facility] #[id number],148.4, cm, 02/16/21 15:09:00 EDT, Height, 97.6, kg,... Start Date: 03/09/21 Stop Date: 09/05/21 Status: Ordered umeclidinium 62.5 mcg/inh inhalation powder 1 inhalation = 62.5 mcg, Inhalation, Every 24 hours, doses should be taken at least 24 hours apart,# 30 each, 11 Refills, Maintenance, 01/06/21 14:47:00 EDT, Powder, [facility] #[id number], Partial fill upon patient request if the [...] Numbness and tingling in hands(Confirmed) Active *[facility] [phone] CARE MANAG ER HELEN ROWDY(Confirmed) Active Pulmonary [...]
--- OUTSIDE RECORDS SUMMARY | 2023-03-06 14:44 | XMS_ITS | Continuity of Care Document ---
Author Name Unknown Organization [facility] Maik Hernandez n[facility] Address [address], [address] [place] [address]- Care Team Providers Care Hr Administrator Name Role Phone Rj SATURATION EQUIPMENT OPERATOR, Winsome Weiss Primary Care Physician [phone] Encounter [facility] Date(s): 10/22/19 - 11/01/19 [facility] Zapat[facility] [address], [address] [place] [address]- Attending Physician: Dayana Orlando Admitting Physician: AdmDayana nolan Referring Physician: AdmtrDayana Allergies, Adverse Reactions, Alerts Substance Reaction Severity [...] [07/11/2018] [facility] 2Result Comment: [11/11/2015] given at [facility] [address] [place], [place] [id number] 3Result Comment: [07/11/2018] [facility] 4Location History: [facility] 5Admin Note: given at [facility] in [place], [place] 6Location History: [facility] 7Admin Note: boostrix [...] 10/21/19 14:37:00 EDT, Route to Pharmacy Electronically, [facility] #[id number], 149.9, cm, 08/10/19 9:46:00 EST, Height, 94.4... [...] 6 Refills, Maintenance, 10/21/19 14:37:00 EDT, Tablet, [facility] #[id number], 149.9, cm, 08/10/19 9:46:00 EST, Height, 94.4, kg, 05/21/19 10:46:00 EDT, Dry Weight Start Date: 10/21/19 Status: Ordered FeroSul 325 mg oral tablet 1 tablet = 325 mg, By Mouth, 2 times a day, BUBBLE PACK PLEASE, # 60 tablet, 5 Refills, Soft Stop, 10/21/19 14:38:00 EDT, [facility] #[id number], 149.9, cm, 08/10/19 9:46:00 EST, Height, 94.4, kg, 05/21/19 10:46:00 EDT, Dry Weight Start Date: 10/21/19 Stop Date: 04/18/20 Status: Ordered ferrous sulfate 325 mg oral enteric coated tablet 325 mg, 1, tablet, By Mouth, 2 times a day, # 180 tablet, Refills 1, Tot. Refills 1, Maintenance, 12/24/18 14:50:03 EDT, [id number] Start Date: 12/24/18 Stop Date: 06/22/19 [...] 10/21/19 14:39:00 EDT, Route to Pharmacy Electronically, [facility] #[id number], 149.9, cm, 08/10/19 9:46:00 EST, Height, 94.4,... Start Date: 10/21/19 Stop Date: 11/20/19 Status: Ordered levothyroxine 0.025 mg oral tablet 1 tablet, By Mouth, Daily, BUBBLE PACK PLEASE, # 30 tablet, 5 Refills, Maintenance, 10/21/19 14:40:00 EDT, Tablet, [facility] #[id number], 149.9, cm, 08/10/19 9:46:00 EST, Height, 94.4, kg, 05/21/19 10:46:00 EDT, Dry Weight Start Date: 10/21/19 Stop Date: 04/18/20 Status: Ordered lisinopril 20 mg oral tablet 20 mg, 1, tablet, By Mouth, Daily, BUBBLE PACK PLEASE, # 30 tablet, Refills 5, Tot. Refills 5, Maintenance, 10/21/19 14:40:00 EDT, Route to Pharmacy Electronically, [facility] #[id number], 149.9, cm, 08/10/19 9:46:00 EST, Height, 94.4, kg, ... Start Date: 10/21/19 Stop Date: 04/18/20 Status: Ordered LORazepam 1 mg oral tablet 1 tablet = 1 mg, By Mouth, Daily, PRN as needed for anxiety, # 30 tablet, 0 Refills, Maintenance, 10/14/19 12:12:00 EST, Tablet, [facility] #[id number], 149.9, cm, 08/10/19 9:46:00 EST, Height, 94.4, kg, 05/21/19 10:46:00 EDT, Dry Weight Start Date: 10/14/19 Stop Date: 11/13/19 Status: Ordered nortriptyline 50 mg oral capsule 50 mg, 1, capsule, By Mouth, Daily, BUBBLE PACK PLEASE, # 30 capsule, Refills 0, Tot. Refills 0, Maintenance, 10/21/19 14:42:00 EDT, Route to Pharmacy Electronically, [facility] #[id number], 149.9, cm, 08/10/19 9:46:00 EST, Height, 94.4, kg, 05/12... Start Date: 10/21/19 Stop Date: 11/20/19 Status: Ordered nystatin topical 282277 u/gm ointment 1 application, Topically, 3 times [...] Refills, Maintenance, 10/21/19 14:42:00 EDT, EC Capsule, [facility] #[id number], 149.9, cm, 08/10/19 9:46:00 EST, Height, 94.4, kg, 05/21/19 10:46:00 EDT, Dry Weight Start Date: 10/21/19 Stop Date: 04/18/20 Status: Ordered Singulair 10 mg oral tablet 10 mg, 1, tablet, By Mouth, Daily in PM, BUBBLE PACK PLEASE, # 30 tablet, Refills 5, Tot. Refills 5, Maintenance, 10/21/19 14:41:00 EDT, [facility] Electronically, [id number],149.9, cm, 08/10/19 9:46:00 EST, Height, 94.4, kg,... [...] Numbness and tingling in hands(Confirmed) Active *[facility] [phone] CARE MANAG ER HELEN MGJUAN LUIS(Confirmed) Active [...]
--- OUTSIDE RECORDS SUMMARY | 2023-03-06 14:44 | XMS_ITS | Continuity of Care Document ---
Author Name Unknown Organization [facility] Address [address] [place] [address]- Care Team Providers Care Meat Cutting Teacher Name Role Phone Rj SENIOR RISK MANAGER, Winsome Weiss Primary Care Physician Encounter [facility] Date(s): 10/16/19 - 10/26/19 [facility] [address] [place] [address]- Attending Physician: Admovidio, Dayana Admitting Physician: AdmtrDayana Referring Physician: Admtr, [id number] [...] 7 12/11/13 Gi sukhi 1Result Comment: [07/11/2018] [facility] 2Result Comment: [11/11/2015] given at [facility] [address] [place] [address] [phone] 3Result Comment: [07/11/2018] [facility] 5Admin Note: given at [facility] in [place], [place] 6Location History[facility] 7Admin Note: boostrix [...] 10/21/19 14:37:00 EDT, Route to Pharmacy Electronically, [facility] #[id number], 149.9, cm, 08/10/19 9:46:00 EST, Height, 94.4... [...] 6 Refills, Maintenance, 10/21/19 14:37:00 EDT, Tablet, [facility] #[id number], 149.9, cm, 08/10/19 9:46:00 EST, Height, 94.4, kg, 05/21/19 10:46:00 EDT, Dry Weight Start Date: 10/21/19 Status: Ordered FeroSul 325 mg oral tablet 1 tablet = 325 mg, By Mouth, 2 times a day, BUBBLE PACK PLEASE, # 60 tablet, 5 Refills, Soft Stop, 10/21/19 14:38:00 EDT, [facility] #[id number], 149.9, cm, 08/10/19 9:46:00 EST, Height, 94.4, kg, 05/21/19 10:46:00 EDT, Dry Weight Start Date: 10/21/19 Stop Date: 04/18/20 Status: Ordered ferrous sulfate 325 mg oral enteric coated tablet 325 mg, 1, tablet, By Mouth, 2 times a day, # 180 tablet, Refills 1, Tot. Refills 1, Maintenance, 12/24/18 14:50:03 EDT, [id number] Start Date: 12/24/18 Stop Date: 06/22/19 [...] 10/21/19 14:39:00 EDT, Route to Pharmacy Electronically, [facility] #[id number], 149.9, cm, 08/10/19 9:46:00 EST, Height, 94.4,... Start Date: 10/21/19 Stop Date: 11/20/19 Status: Ordered levothyroxine 0.025 mg oral tablet 1 tablet, By Mouth, Daily, BUBBLE PACK PLEASE, # 30 tablet, 5 Refills, Maintenance, 10/21/19 14:40:00 EDT, Tablet, [facility] #[id number], 149.9, cm, 08/10/19 9:46:00 EST, Height, 94.4, kg, 05/21/19 10:46:00 EDT, Dry Weight Start Date: 10/21/19 Stop Date: 04/18/20 Status: Ordered lisinopril 20 mg oral tablet 20 mg, 1, tablet, By Mouth, Daily, BUBBLE PACK PLEASE, # 30 tablet, Refills 5, Tot. Refills 5, Maintenance, 10/21/19 14:40:00 EDT, Route to Pharmacy Electronically, [facility] #[id number], 149.9, cm, 08/10/19 9:46:00 EST, Height, 94.4, kg, ... Start Date: 10/21/19 Stop Date: 04/18/20 Status: Ordered LORazepam 1 mg oral tablet 1 tablet = 1 mg, By Mouth, Daily, PRN as needed for anxiety, # 30 tablet, 0 Refills, Maintenance, 10/14/19 12:12:00 EST, Tablet, [facility] #[id number], 149.9, cm, 08/10/19 9:46:00 EST, Height, 94.4, kg, 05/21/19 10:46:00 EDT, Dry Weight Start Date: 10/14/19 Stop Date: 11/13/19 Status: Ordered nortriptyline 50 mg oral capsule 50 mg, 1, capsule, By Mouth, Daily, BUBBLE PACK PLEASE, # 30 capsule, Refills 0, Tot. Refills 0, Maintenance, 10/21/19 14:42:00 EDT, Route to Pharmacy Electronically, [facility] #[id number], 149.9, cm, 08/10/19 9:46:00 EST, Height, 94.4, kg, 05/12... Start Date: 10/21/19 Stop Date: 11/20/19 Status: Ordered nystatin topical 753767 u/gm ointment 1 application, Topically, 3 times [...] Refills, Maintenance, 10/21/19 14:42:00 EDT, EC Capsule, [facility] #[id number], 149.9, cm, 08/10/19 9:46:00 EST, Height, 94.4, kg, 05/21/19 10:46:00 EDT, Dry Weight Start Date: 10/21/19 Stop Date: 04/18/20 Status: Ordered Singulair 10 mg oral tablet 10 mg, 1, tablet, By Mouth, Daily in PM, BUBBLE PACK PLEASE, # 30 tablet, Refills 5, Tot. Refills 5, Maintenance, 10/21/19 14:41:00 EDT, Route to Pharmacy Electronically, [facility] #[id number],149.9, cm, 08/10/19 9:46:00 EST, Height, 94.4, kg,... [...] Numbness and tingling in hands(Confirmed) Active *[facility] [phone] CARE MANAG ER HELEN MGJUAN LUIS(Confirmed) Active [...]
--- OUTSIDE RECORDS SUMMARY | 2023-03-06 14:44 | XMS_ITS | Continuity of Care Document ---
Author Name Unknown Organization [facility] Address [address] [place] [address]- Care Team Providers Care Network Security Officer Name Role Phone Rj HAMILTON, Winsome Weiss Primary Care Physician [id number] Date(s[facility]15[facility] - [facility] [address] [address]- Encounter Diagnosis Asthma(Discharge Diagnosis) - 11/15/20 Chest pain(Discharge Diagnosis) - 11/15/20 Generalized anxiety disorder(Discharge Diagnosis) - 11/15/20 Pulmonary edema(Discharge Diagnosis) - 11/17/20 Attending Physician: Winsome De La Rosa NP [...] [07/11/2018] Gwendolyn 2Result Comment: [11/11/2015] given at [facility] [address] [place] [address] [phone] 3Result Comment: [07/11/2018] Gwendolyn [facility] 5Admin Note: given at [facility] in [place], [place] 6Location [facility] 7Admin Note: [facility] [...] 06/21/20 16:00:00 EST, Route to Pharmacy Electronically, [facility] #[id number], 149.9, cm, 06/21/20 13:54:00 EST, Height, 103.8, kg, 06/21/20 13:54:... Start Date: 06/21/20 Stop Date: 06/29/20 Status: Ordered Colace sodium 100 mg oral capsule 100 mg, 1, capsule, By Mouth, 2 times a day, BUBBLE PACK PLEASE, # 180 capsule, Refills 1, Tot. Refills 1, Maintenance, 11/08/20 17:06:00 EDT, Route to Pharmacy Electronically, [facility] #[id number], 152.4, cm, 11/07/20 7:59:00 EDT, Height, 100.... Start Date: 11/08/20 Stop Date: 05/07/21 Status: Ordered escitalopram 20 mg oral tablet 1 tablet = 20 mg, By Mouth, Daily, # 30 tablet, 5 Refills, Maintenance, 07/22/20 9:23:00 EST, Tablet, [facility] #[id number], 153, cm, 07/22/20 9:04:00 EST, Height, 106, kg, 07/08/20 13:49:00 EST, Dry Weight Start Date: 07/22/20 Stop Date: 01/18/21 Status: Ordered ferrous sulfate 325 mg oral enteric coated tablet 325 mg, 1, tablet, By Mouth, 2 times a day, may take with food to minimize abdominal discomfort, # 180 tablet, Refills 1, Tot. Refills 1, Maintenance, 10/04/20 16:08:00 EST, Route to Pharmacy Electronically, [facility] #[id number], 150, cm, 09/26... Start Date: 10/04/20 Stop Date: 04/02/21 Status: Ordered Flovent HFA 220 mcg/inh inhalation aerosol 2 puffs, Inhalation, 2 times a day, # 1 each, 6 Refills, Maintenance, 11/08/20 17:06:00 EDT, Aerosol, [facility] #[id number], 152.4, cm, 11/07/20 7:59:00 EDT, Height, 100.2, kg, 11/07/20 7:59:00EDT, Dry Weight Start Date: 11/08/20 Stop Date: 06/06/21 Status: Ordered gabapentin 100 mg oral capsule 200 mg, 2, capsule, By Mouth, 3 times a day, # 180 capsule, Refills 1, Tot. Refills 1, Maintenance,09/14/20 15:22:00 EST, Route to Pharmacy Electronically, [facility] #[id number], Partial fill upon patient request if the prescription is for a sc... Start Date: 09/14/20 Status: Ordered Lasix 20 mg oral tablet See Instructions, 1 tablet By Mouth Daily, # 10 tablet, Refills 0, Tot. Refills 0, Maintenance, 11/13/20 22:27:00 EDT, Instructions Replace Required Details, Route to Pharmacy Electronically, [facility] #[id number], Partial fill upon patient requ... Start Date: 11/13/20 Status: Ordered levothyroxine 0.025 mg oral tablet 1 tablet, By Mouth, Daily, BUBBLE PACK PLEASE, # 30 tablet, 5 Refills, Maintenance, 07/22/20 9:24:00 EST, Tablet, [facility] #[id number], 153, cm, 07/22/20 9:04:00 EST, Height, 106, kg, 07/08/2013:49:00 EST, Dry Weight Start Date: 07/22/20 Stop Date: 01/18/21 Status: Ordered lisinopril 20 mg oral tablet 20 mg, 1, tablet, By Mouth, Daily, BUBBLE PACK PLEASE, # 30 tablet, Refills 5, Tot. Refills 5, Maintenance, 04/27/20 9:21:00 EDT, Route to Pharmacy Electronically, [facility] #[id number], 149.9,cm, 04/27/20 9:00:00 EDT, Height, 103.8, kg, ... Start Date: 04/27/20 Stop Date: 10/24/20 Status: Ordered LORazepam 1 mg oral tablet 1 tablet = 1 mg, By Mouth, Daily, PRN as needed for anxiety, # 30 tablet, 0 Refills, Maintenance, 11/15/20 10:10:00 EDT, Tablet, [facility] #64045, 153, cm, 11/15/20 9:29:00 EDT, Height, 102.4, [...] 03/25/20 19:21:00 EDT, Route to Pharmacy Electronically, [facility] #[id number], 149.9, cm, 03/07/20 10:17:00 EDT, Height, 103.8, kg, 07... Start Date: 03/25/20 Stop Date: 10/21/20 Status: Ordered nystatin topical 795586 u/gm ointment 1 application, Topically, 3 times [...] Refills, Maintenance, 10/24/20 9:19:00 EDT, EC Capsule, [facility] #21759, 149.9, cm, 06/14/20 14:58:00 EST, Height, 101, kg, 06/07/20 10:02:00 EDT, Dry Weight Start Date: 10/24/20 Stop Date: 02/21/21 Status: Ordered ProAir HFA 90 mcg/inh inhalation aerosol 2 puffs, Inhalation, 4 times a day, PRN Wheezing/Shortness of Breath, # 2 each, 3 Refills, Maintenance, 11/08/20 17:08:00 EDT, Aerosol, [facility] #[id number], Partial fill upon patient request if the prescription is for a schedule II opioid drug... Start Date: 11/08/20 Stop Date: 03/08/21 Status: Ordered Singulair 10 mg oral tablet 10 mg, 1, tablet, By Mouth, Daily in PM, BUBBLE PACK PLEASE, # 30 tablet, Refills 5, Tot. Refills 5, Maintenance, 07/22/20 9:24:00 EST, Route to Pharmacy Electronically, [facility] #[id number], 153, cm, 07/22/20 9:04:00 EST, Height, 106, [...] Numbness and tingling in hands(Confirmed) Active *[facility] [phone] CARE MANAG ER HELEN ROWDY(Confirmed) Active Pulmonary edema(Confirmed) Active Rib pain on left side(Confirmed) Active Pain in right shoulder(Confirmed) Active Urge urinary incontinence(Confirmed) Active 1tx with apc today due to bleeding. 2normal PFT's 11/22/14 r/o COPD 3childhood onset 4possibly Type III 53+ 6s/p bilateral salpingo-oophrectomy Diagnosis Diagnosis Type Effective Dates Health Status Clinical Service Informant Asthma Discharge Diagnosis 11/15/20 Chest pain Discharge Diagnosis 11/15/20 Generalized anxiety disorder Discharge Diagnosis 11/15/20 Pulmonary edema Discharge Diagnosis 11/17/20 Vital Signs Most recent to oldest [Reference Range]: 1 Height 153 cm (11/15/20 9:29 AM) Social History Social History Type Response Smoking Status Former smoker; Tobac co user in household: No; Type: Cigarettes; Stopped at age: 48; Tobacco use times per day: up to 2 ppd; Started at age: 16; entered on: 11/08/14 Sex
--- OUTSIDE RECORDS SUMMARY | 2023-03-06 14:44 | XMS_ITS | Continuity of Care Document ---
Author Name Unknown Organization [facility] Address [address] [place] [address] [address], [address] [place] [address]- Care Team Providers Care Conductor Orchestra Name Role Phone Rj PLANT ETIOLOGIST, Winsome Weiss Primary Care Physician Encounter [facility] Date(s): 12/29/21 - 01/31/[address], [address] [place] [address]- Attending Physician: Not on Staff, Attending MD [...] [facility] 3Admin Note: given at [facility] in [place] 4Result Comment: [07/11/2018] [facility] 5Result Comment: [11/11/2015] given at [facility] [address] [place] [address] [phone] 6[facility] 7Admin Note: [facility] vis [...] 01/19/22 19:16:00 EDT, Route to Pharmacy Electronically, [facility] #[id number], Partial fill upon patientrequest if the prescription is for a schedule II op... Start Date: 01/19/22 Status: Ordered escitalopram 20 mg oral tablet 1 tablet = 20 mg, By Mouth, Daily, # 90 tablet, 1 Refills, Maintenance, 11/29/21 7:27:00 EDT, Tablet, [facility] #[id number], 150, cm, 11/03/21 13:46:00 EDT, Height, 100.8, kg, 11/01/21 22:19:00EDT, Dry Weight Start Date: 11/29/21 Stop Date: 05/28/22 Status: Ordered furosemide 20 mg oral tablet 20 mg, 1, tablet, By Mouth, 2 times a day, # 180 tablet, Refills 1, Tot. Refills 1, Maintenance, 12/01/21 16:35:00 EDT, Route to Pharmacy Electronically, [facility] #[id number], Partial fill upon patient request if the prescription is for a sched... Start Date: 12/01/21 Stop Date: 05/30/22 Status: Ordered gabapentin 100 mg oral capsule 200 mg, 2, capsule, By Mouth, 3 times a day, 2 capsules to equal 200 mg three times a day., # 180 capsule, Refills 3, Tot. Refills 3, Maintenance, 12/05/21 20:30:00 EDT, Route to Pharmacy Electronically, [facility] #[id number], Partial fill upon... Start Date: 12/05/21 Status: [...] 04/06/21 12:52:00 EDT, Route to Pharmacy Electronically, [facility] #[id number], Partial fill upon patient request if the prescription is for a schedule... Start Date: 04/06/21 Status: Ordered Lantus Solostar Pen 100 units/mL subcutaneous solution = 15 units, Subcutaneous Infusion, Daily, with evening meal, # 15 mL, 3 Refills, Maintenance, 11/29/21 21:45:00 EDT, [facility] #[id number], Partial fill upon patient request if the prescriptionis for a schedule II opioid drug., 150, cm, ... Start Date: 11/29/21 Status: Ordered levothyroxine 0.025 mg oral tablet 1 tablet, By Mouth, Daily, # 90 tablet, 1 Refills, Maintenance, 11/29/21 7:27:00 EDT, Tablet, [facility] #[id number], 150, cm, 11/03/21 13:46:00 EDT, Height, 100.8, [...] 3 Refills, Maintenance, 04/05/21 13:22:00 EDT, Tablet, [facility] #[id number], Part... Start Date: 04/05/21 Stop Date: 08/03/21 Status: Ordered NovoLOG FlexPen 100 units/mL injectable solution See Instructions, Subcutaneous Infusion 3 times a day before meals. Sliding scale:: 150-200 2 [id number] 4 UNITS 300-350 6 UNITS, # 3 mL, 3 Refills, Maintenance, 12/01/21 11:54:00 EDT, [facility] #[id number], Partial fill upon patient requ... Start Date: [...] 01/19/22 13:52:00 EDT, Route to Pharmacy Electronically, [facility] #[id number], Partial fill upon patient request... Start Date: [...] 10/14/21 18:18:00 EST, Route to Pharmacy Electronically, [facility] #[id number],148.4, cm, 10/05/21 10:50:00 EST, Height, 104.5, kg... Start Date: 10/14/21 Stop Date: 04/12/22 Status: Ordered spironolactone 100 mg oral tablet 100 mg, 1, tablet, By Mouth, Daily, # 90 tablet, Refills 1, Tot. Refills 1, Maintenance, 12/01/21 16:34:00 EDT, Route to Pharmacy Electronically, [facility] #[id number], Partial fill upon patient request if the [...] 11 Refills, Maintenance, 01/06/21 14:47:00 EDT, Powder, [facility] #[id number], Partial fill upon patient request if the [...] Numbness and tingling in hands(Confirmed) Active *[facility] [phone] CARE MANAG ER HELEN ROWDY(Confirmed) Active Hepatitis [...]
--- OUTSIDE RECORDS SUMMARY | 2023-03-06 14:44 | XMS_ITS | Continuity of Care Document ---
Author Name Unknown Organization [facility] Address [address] [place] [address]- Care Team Providers Care Actuary Manager Name Role Phone Rj MANAGEMENT LIAISON, Winsome Weiss Primary Care Physician [phone] Encounter [facility] Date(s): 11/15/20 - 12/15/20 [facility] [address] [place] [address]- Attending Physician: Dayana Orlando Admitting Physician: AdmDayana [...] [11/11/2015] given at [facility] [address] [place] [address] [phone] 3Result Comment: [07/11/2018] Gwendolyn 4[facility] 5Admin Note: given at [facility] in [place], [place] 6Location History[facility] 7Admin Note: [facility] [...] 06/21/20 16:00:00 EST, Route to Pharmacy Electronically, [facility] #[id number], 149.9, cm, 06/21/20 13:54:00 EST, Height, 103.8, kg, 06/21/20 13:54:... Start Date: 06/21/20 Stop Date: 06/29/20 Status: Ordered Colace sodium 100 mg oral capsule 100 mg, 1, capsule, By Mouth, 2 times a day, BUBBLE PACK PLEASE, # 180 capsule, Refills 1, Tot. Refills 1, Maintenance, 11/08/20 17:06:00 EDT, Route to Pharmacy Electronically, [facility] #[id number], 152.4, cm, 11/07/20 7:59:00 EDT, Height, 100.... Start Date: 11/08/20 Stop Date: 05/07/21 Status: Ordered escitalopram 20 mg oral tablet 1 tablet = 20 mg, By Mouth, Daily, # 30 tablet, 5 Refills, Maintenance, 07/22/20 9:23:00 EST, Tablet, [facility] #[id number], 153, cm, 07/22/20 9:04:00 EST, Height, 106, kg, 07/08/20 13:49:00 EST, Dry Weight Start Date: 07/22/20 Stop Date: 01/18/21 Status: Ordered ferrous sulfate 325 mg oral enteric coated tablet 325 mg, 1, tablet, By Mouth, 2 times a day, may take with food to minimize abdominal discomfort, # 180 tablet, Refills 1, Tot. Refills 1, Maintenance, 10/04/20 16:08:00 EST, Route to Pharmacy Electronically, [facility] #[id number], 150, cm, 09/26... Start Date: 10/04/20 Stop Date: 04/02/21 Status: Ordered Flovent HFA 220 mcg/inh inhalation aerosol 2 puffs, Inhalation, 2 times a day, # 1 each, 6 Refills, Maintenance, 11/08/20 17:06:00 EDT, Aerosol, [facility] #[id number], 152.4, cm, 11/07/20 7:59:00 EDT, Height, 100.2, kg, 11/07/20 7:59:00EDT, Dry Weight Start Date: 11/08/20 Stop Date: 06/06/21 Status: Ordered gabapentin 100 mg oral capsule 200 mg, 2, capsule, By Mouth, 3 times a day, # 180 capsule, Refills 1, Tot. Refills 1, Maintenance,09/14/20 15:22:00 EST, Route to Pharmacy Electronically, [facility] #[id number], Partial fill upon patient request if the prescription is for a sc... Start Date: 09/14/20 Status: Ordered Lasix 20 mg oral tablet See Instructions, 1 tablet By Mouth Daily, # 10 tablet, Refills 0, Tot. Refills 0, Maintenance, 11/13/20 22:27:00 EDT, Instructions Replace Required Details, Route to Pharmacy Electronically, [facility] #[id number], Partial fill upon patient requ... Start Date: 11/13/20 Status: Ordered levothyroxine 0.025 mg oral tablet 1 tablet, By Mouth, Daily, BUBBLE PACK PLEASE, # 30 tablet, 5 Refills, Maintenance, 07/22/20 9:24:00 EST, Tablet, [facility] #[id number], 153, cm, 07/22/20 9:04:00 EST, Height, 106, kg, 07/08/2013:49:00 EST, Dry Weight Start Date: 07/22/20 Stop Date: 01/18/21 Status: Ordered lisinopril 20 mg oral tablet 20 mg, 1, tablet, By Mouth, Daily, BUBBLE PACK PLEASE, # 30 tablet, Refills 5, Tot. Refills 5, Maintenance, 12/15/20 9:29:00 EDT, Route to Pharmacy Electronically, [facility] #[id number], 153, cm, 11/29/20 15:11:00 EDT, Height, 102.4, kg, ... Start Date: 12/15/20 Stop Date: 06/13/21 Status: Ordered LORazepam 1 mg oral tablet 1 tablet = 1 mg, By Mouth, Daily, PRN as needed for anxiety, # 30 tablet, 0 Refills, Maintenance, 12/15/20 9:28:00 EDT, Tablet, [facility] #[id number], 153, cm, 11/29/20 15:11:00 EDT, Height, 102.4, [...] 03/25/20 19:21:00 EDT, Route to Pharmacy Electronically, [facility] #[id number], 149.9, cm, 03/07/20 10:17:00 EDT, Height, 103.8, kg, 07... Start Date: 03/25/20 Stop Date: 10/21/20 Status: Ordered nystatin topical 102046 u/gm ointment 1 application, Topically, 3 times [...] Refills, Maintenance, 10/24/20 9:19:00 EDT, EC Capsule, [facility] #[id number], 149.9, cm, 06/14/20 14:58:00 EST, Height, 101, kg, 06/07/20 10:02:00 EDT, Dry Weight Start Date: 10/24/20 Stop Date: 02/21/21 Status: Ordered ProAir HFA 90 mcg/inh inhalation aerosol 2 puffs, Inhalation, 4 times a day, PRN Wheezing/Shortness of Breath, # 2 each, 3 Refills, Maintenance, 11/08/20 17:08:00 EDT, Aerosol, [facility] #[id number], Partial fill upon patient request if the prescription is for a schedule II opioid drug... Start Date: 11/08/20 Stop Date: 03/08/21 Status: Ordered Singulair 10 mg oral tablet 10 mg, 1, tablet, By Mouth, Daily in PM, BUBBLE PACK PLEASE, # 30 tablet, Refills 5, Tot. Refills 5, Maintenance, 07/22/20 9:24:00 EST, Route to Pharmacy Electronically, [facility] #[id number], 153, cm, 07/22/20 9:04:00 EST, Height, 106, [...] in hands(Confirmed) Active *[facility] [phone] CARE MANAG ER HELEN RENO(Confirmed) Active Pulmonary [...]
--- OUTSIDE RECORDS SUMMARY | 2023-03-06 14:44 | XMS_ITS | Continuity of Care Document ---
Author Name Unknown Organization [facility] Address [address] [place] [address]- Care Team Providers Care Sausage Canner Name Role Phone Rj HAMILTON, Winsome Weiss Primary Care Physician Encounter [facility] Date(s): 06/07/20 - 06/07/[address] [address]- [facility] [phone] Discharge Disposition: A-D/C Home Attending Physician: Kelton Man DO Admitting Physician: Kelton Man DO Referring Physician: Kelton Man DO Allergies, Adverse Reactions, Alerts Substance Reaction [...] [07/11/2018] [facility] 2Result Comment: [11/11/2015] given at [facility] [address] [place] [address] [phone] 3Result Comment: [07/11/2018] [facility] 5Admin Note: given at [facility] in [place], [place] 6Location History[facility] 7Admin Note: [facility] [...] 03/15/20 14:44:00 EDT, Route to Pharmacy Electronically, [facility] #[id number], 149.9, cm, 0... Start Date: 03/15/20 Stop Date: 09/11/20 Status: Ordered Colace sodium 100 mg oral capsule 100 mg, 1, capsule, By Mouth, 2 times a day, BUBBLE PACK PLEASE, # 180 capsule, Refills 1, Tot. Refills 1, Maintenance, 04/18/20 14:37:00 EDT, Route to Pharmacy Electronically, [facility] #[id number], 149.9, cm, 03/07/20 10:17:00 EDT, Height, 103... [...] 5 Refills, Maintenance, 04/27/20 9:19:00 EDT, Tablet, [facility] #[id number], 149.9, cm, 04/27/20 9:00:00 EDT, Height, 103.8, kg, 03/07/20 10:17:00 EDT, Dry Weight Start Date: 04/27/20 Stop Date: 10/24/20 Status: Ordered FeroSul 325 mg oral tablet 1 tablet = 325 mg, By Mouth, 2 times a day, BUBBLE PACK PLEASE, # 60 tablet, 5 Refills, Soft Stop, 04/18/20 14:38:00 EDT, [facility] #[id number], 149.9, cm, 03/07/20 10:17:00 EDT, Height, 103.8,kg, 03/07/20 10:17:00 EDT, Dry Weight Start Date: 04/18/20 Stop Date: 10/15/20 Status: Ordered ferrous sulfate 325 mg oral enteric coated tablet 325 mg, 1, tablet, By Mouth, 2 times a day, # 180 tablet, Refills 1, Tot. Refills 1, Maintenance, 12/24/18 14:50:03 EDT, [email or web address] Start Date: 12/24/18 Stop Date: 06/22/19 Status: Ordered Flovent HFA 220 mcg/inh inhalation aerosol 2 puffs, Inhalation, 2 times a day, # 1 each, 6 Refills, Maintenance, 05/30/20 10:57:00 EDT, Aerosol, [facility] #[id number], 149.9, cm, 05/30/20 10:53:00 EDT, Height, 103.8, kg, 03/07/20 10:17:00 EDT, Dry Weight Start Date: 05/30/20 Stop Date: 12/26/20 Status: Ordered gabapentin 100 mg oral capsule 100 mg, 1, capsule, By Mouth, 2 times a day, BUBBLE PACK PLEASE, # 60 capsule, Refills 3, Tot. Refills 3, Maintenance, 05/30/20 11:10:00 EDT, Route to Pharmacy Electronically, [facility] #[id number], 149.9, cm, 05/30/20 10:53:00 EDT, Height, 103.... Start Date: 05/30/20 Stop Date: 09/27/20 Status: Ordered levothyroxine 0.025 mg oral tablet 1 tablet, By Mouth, Daily, BUBBLE PACK PLEASE, # 30 tablet, 5 Refills, Maintenance, 04/27/20 9:20:00 EDT, Tablet, [facility] #[id number], 149.9, cm, 04/27/20 9:00:00 EDT, Height, 103.8, kg, 03/07/20 10:17:00 EDT, Dry Weight Start Date: 04/27/20 Stop Date: 10/24/20 Status: Ordered lisinopril 20 mg oral tablet 20 mg, 1, tablet, By Mouth, Daily, BUBBLE PACK PLEASE, # 30 tablet, Refills 5, Tot. Refills 5, Maintenance, 04/27/20 9:21:00 EDT, Route to Pharmacy Electronically, [facility] #[id number], 149.9,cm, 04/27/20 9:00:00 EDT, Height, 103.8, kg, ... Start Date: 04/27/20 Stop Date: 10/24/20 Status: Ordered LORazepam 1 mg oral tablet 1 tablet = 1 mg, By Mouth, Daily, PRN as needed for anxiety, # 30 tablet, 0 Refills, Maintenance, 05/30/20 10:55:00 EDT, Tablet, [facility] #[id number], 149.9, cm, 05/30/20 10:53:00 EDT, Height,103.8, kg, 03/07/20 10:17:00 EDT, Dry Weight Start Date: 05/30/20 Stop Date: 06/29/20 Status: Ordered nortriptyline 50 mg oral capsule 50 mg, 1, capsule, By Mouth, Daily, BUBBLE PACK PLEASE, # 30 capsule, Refills 6, Tot. Refills 6, Maintenance, 03/25/20 19:21:00 EDT, Route to Pharmacy Electronically, [facility] #06695, 149.9, cm, 03/07/20 10:17:00 EDT, Height, 103.8, kg, 07... Start Date: 03/25/20 Stop Date: 10/21/20 Status: Ordered nystatin topical 829128 u/gm ointment 1 application, Topically, 3 times [...] Refills, Maintenance, 04/27/20 9:19:00 EDT, EC Capsule, [facility] #[id number], 149.9, cm, 04/27/20 9:00:00 EDT, Height, 103.8, kg, 03/07/20 10:17:00 EDT, Dry Weight Start Date: 04/27/20 Stop Date: 10/24/20 Status: Ordered oxyCODONE 5 mg oral tablet 5 mg, 1, tablet, By Mouth, Every 6 hours, PRN, # 10 tablet, Refills 0, Tot. Refills 0, Acute 06/10/20 12:18:00 EDT, for pain, 06/07/20 12:17:00 EDT, Route to Pharmacy Electronically, [facility] #[id number], Partial fill upon patient request, 149.... Start Date: 06/07/20 Stop Date: 06/10/20 Status: Ordered Singulair 10 mg oral tablet 10 mg, 1, tablet, By Mouth, Daily in PM, BUBBLE PACK PLEASE, # 30 tablet, Refills 5, Tot. Refills 5, Maintenance, 03/02/20 16:02:00 EDT, Route to Pharmacy Electronically, [facility] #[id number],149.9, cm, 03/02/20 10:16:00 EDT, Height, 94.4, kg,... Start Date: 03/02/20 Stop Date: 08/29/20 Status: Ordered Xopenex HFA 45 mcg/inh inhalation [...] Active Numbness and tingling in hands(Confirmed) Active *[facility] [phone] CARE MANAG ER HELEN ROWDY(Confirmed) Active Rib pain on left side(Confirmed) Active Pain in right shoulder(Confirmed) Active Urge urinary incontinence(Confirmed) Active 1tx with apc today due to bleeding. 2normal PFT's 11/22/14 r/o COPD 3childhood onset 4possibly Type III 53+ 6s/p bilateral salpingo-oophrectomy Vital Signs Most recent to oldest [Reference Range]: 1 2 3 Weight 101 kg (06/07/20 10:02 AM) Oxygen Saturation [94-100 %] 96 % (06/07/20 1:15 PM) 100 % (06/07/20 1:00 PM) 99 % (06/07/20 12:50 PM) Pulse Rate [55-90 bpm] 102 bpm *H* (06/07/20 10:02 AM) Blood Pressure [90-138/55-84 mm Hg] 155/81mm Hg *H* (06/07/20 1:15 PM) 158/69mm Hg *H* (06/07/20 1:00 PM) 156/79mm Hg *H* (06/07/20 12:50 PM) Respiratory Rate [16-30 br/min] 26 br/min (06/07/20 1:15 PM) 15 br/min *L* (06/07/20 1:00 PM) 19 br/min (06/07/20 10:02 AM) Temperature [96.8-100.4 DegF] 98.1 DegF (06/07/20 12:40 PM) 98.6 DegF (06/07/20 10:02 AM) Liters per Minute 6 L/min (06/07/20 12:50 PM) 6 L/min (06/07/20 12:45 PM) 6 L/min (06/07/20 12:40 PM) Mode of Delivery (Oxygen) Room air (06/07/20 1:15 PM) Room air (06/07/20 1:00 PM) Simple face mask (06/07/20 12:50 PM) Temperature Route Temporal (06/07/20 12:40 PM) Temporal (06/07/20 10:02 AM) Dry Weight 101 kg (06/07/20 10:02 AM) Weight Obtained Via Standing scale (06/07/20 10:02 AM) Dry Weight Obtained Via Standing scale (06/07/20 10:02 AM) Social History Social History Type Response Smoking Status Former smoker; Tobac co user in household: No; Type: Cigarettes; Stopped at age: 48; Tobacco use times per day: up to 2 ppd; Started at age: 16; entered on: 11/08/14 Sex
--- OUTSIDE RECORDS SUMMARY | 2023-03-06 14:44 | XMS_ITS | Continuity of Care Document ---
Author Name Unknown Organization [facility] Address [address] [place] [id number]- Care Team Providers Care Supervisor Felling Bucking Name Role Phone Rj ROUNDER AND BACKER, Winsome M Primary Care Physician Encounter [facility] Date(s): 12/09/21 - 04/08/22 [facility] [address] [place] [address]- Attending Physician: Ozzy Santana MD Admitting Physician: Ozzy Santana MD Referring Physician: Panchito Boyce MD Allergies, Adverse Reactions, Alerts Substance Reaction [...] 2[facility] 3Admin Note: given at [facility] in [place] 4Result Comment: [07/11/2018] [facility] 5Result Comment: [11/11/2015] given at [facility] [address] [place] [address] [phone] 6[facility] 7Admin Note: boostrix vis [...] 01/19/22 19:16:00 EDT, Route to Pharmacy Electronically, [facility] #[id number], Partial fill upon patientrequest if the prescription is for a schedule II op... Start Date: 01/19/22 Status: Ordered docusate sodium 100 mg oral capsule TAKE 1 CAPSULE BY MOUTH TWICE DAILY NEEDED FOR CONSTIPATION Start Date: 02/20/22 Status: Ordered escitalopram 20 mg oral tablet 1 tablet = 20 mg, By Mouth, Daily, # 90 tablet, 1 Refills, Maintenance, 11/29/21 7:27:00 EDT, Tablet, [facility] #[id number], 150, cm, 11/03/21 13:46:00 EDT, Height, 100.8, kg, 11/01/21 22:19:00EDT, Dry Weight Start Date: 11/29/21 Stop Date: 05/28/22 Status: Ordered ferrous sulfate 325 mg oral enteric coated tablet TAKE 1 TABLET BY MOUTH TWICE DAILY. DECEMBER. TAKE WITH FOOD TO MINIMIZE ABDOMINAL DISCOMFORT Start Date: 02/20/22 Status: Ordered furosemide 20 mg oral tablet 20 mg, 1, tablet, By Mouth, 2 times a day, # 180 tablet, Refills 1, Tot. Refills 1, Maintenance, 12/01/21 16:35:00 EDT, Route to Pharmacy Electronically, [facility] #[id number], Partial fill upon patient request if the prescription is for a sched... Start Date: 12/01/21 Stop Date: 05/30/22 Status: Ordered gabapentin 100 mg oral capsule 200 mg, 2, capsule, By Mouth, 3 times a day, 2 capsules to equal 200 mg three times a day., # 180 capsule, Refills 3, Tot. Refills 3, Maintenance, 12/05/21 20:30:00 EDT, Route to Pharmacy Electronically, [facility] #[id number], Partial fill upon... Start Date: 12/05/21 Status: [...] mL, 3 Refills, Maintenance, 11/29/21 21:45:00 EDT, [facility] #[id number], Partial fill upon patient request if the prescriptionis for a schedule II opioid drug., 150, cm, ... Start Date: 11/29/21 Status: Ordered levothyroxine 0.025 mg oral tablet 1 tablet, By Mouth, Daily, # 90 tablet, 1 Refills, Maintenance, 11/29/21 7:27:00 EDT, Tablet, [facility] #[id number], 150, cm, 11/03/21 13:46:00 EDT, Height, 100.8, [...] 0 Refills, Maintenance, 03/01/22 11:00:00 EDT, Tablet, [facility], Partial fill upon patient request [...] 3 Refills, Maintenance, 04/05/21 13:22:00 EDT, Tablet, [facility] #[id number], Part... Start Date: 04/05/21 Stop Date: 08/03/21 Status: Ordered NovoLOG FlexPen 100 units/mL injectable solution See Instructions, Subcutaneous Infusion 3 times a day before meals. Sliding scale:: 150-200 2 [id number] 4 UNITS 300-350 6 UNITS, # 3 mL, 3 Refills, Maintenance, 12/01/21 11:54:00 EDT, [facility] #[id number], Partial fill upon patient requ... Start Date: [...] 01/19/22 13:52:00 EDT, Route to Pharmacy Electronically, [facility] #[id number], Partial fill upon patient request... Start Date: [...] 10/14/21 18:18:00 EST, Route to Pharmacy Electronically, [facility] #[id number],148.4, cm, 10/05/21 10:50:00 EST, Height, 104.5, kg... Start Date: 10/14/21 Stop Date: 04/12/22 Status: Ordered trospium 60 mg oral capsule, extended release 1 capsule = 60 mg, By Mouth, Daily in AM, # 90 capsule, 0 Refills, Maintenance, 04/04/22 8:37:00 EDT, [facility] #[id number], Partial fill upon patient request if the [...] Numbness and tingling in hands(Confirmed) Active *[facility] [phone] CARE MANAG ER HELEN ROWDY(Confirmed) Active Hepatitis [...] at age: 48; entered on: 11/08/14 Sex Care Team Personnel Name: Winsome De La Rosa NP Address: [address] [place] [address] Adult [place] [address] [[email or web address]]
--- OUTSIDE RECORDS SUMMARY | 2023-03-06 14:44 | XMS_ITS | Continuity of Care Document ---
Author Name Unknown Organization [facility] Address [address] [place] [address]- Care Team Providers Care Spinal Surgeon Name Role Phone Rj REVENUE INVESTIGATOR, Winsome M Primary Care Physician [phone] Encounter [facility] Date(s): 04/25/22 - 05/25/22 [facility] [address] [place] [phone]- Attending Physician: Dayana Orlando Admitting Physician: AdmtrDayana [...] Live 5 11/09/15 Recorded Zoster Vaccine Live 1/8/13 Recorded zoster vaccine, inactivated 01/27/18 Recorded pneumococcal 13-valent vaccine 01/27/18 Recorded pneumococcal 23-valent vaccine 6 07/19/15 Recorded pneumococcal 23-valent vaccine 03/31/10 Given Tet/Diphth/Acel, Pertussis (oldterm) 7 12/11/13 Gi sukhi 1Result Comment: [07/11/2018] [facility] 3Admin Note: given at [facility] in [place], [place] 4Result Comment: [07/11/2018] [facility] 5Result Comment: [11/11/2015] given at [facility] [address] [place] [address] [phone] 6[facility] 7Admin Note: [facility] vis 12-28-2012 Medications Breo Ellipta 200 mcg-25 mcg/inh inhalation powder 1 puffs, Inhalation, Daily, # 1 each, 11 Refills, Maintenance, 12/20/21 15:11:00 EDT, Powder, [facility] #[id number], Partial fill upon patient request if the prescription is for a schedule II opioid drug., 1 puffs Inhalation Daily, 150, cm, ... Start Date: 12/20/21 Status: Ordered calcium carbonate [...] 01/19/22 19:16:00 EDT, Route to Pharmacy Electronically, [facility] #[id number], Partial fill upon patientrequest if the prescription is for a schedule II op... Start Date: 01/19/22 Status: Ordered docusate sodium 100 mg oral capsule 100 mg, 1, capsule, By Mouth, Every 12 hours, PRN, # 60 capsule, Refills 0, Tot. Refills 0, Maintenance, Constipation, 05/07/22 19:59:00 EDT, Route to Pharmacy Electronically, [facility] #[id number], Partial fill upon patient request if the presc... Start Date: 05/07/22 Stop Date: 06/06/22 Status: Ordered docusate sodium 100 mg oral capsule TAKE 1 CAPSULE BY MOUTH TWICE DAILY NEEDED FOR CONSTIPATION Start Date: 02/20/22 Status: Ordered escitalopram 20 mg oral tablet 1 tablet = 20 mg, By Mouth, Daily, # 90 tablet, 0 Refills, Maintenance, 05/07/22 20:00:00 EDT, Tablet, [facility] #[id number], 150, cm, 05/02/22 15:04:00 EDT, Height, 98, kg, 03/07/22 19:54:00 EDT, Dry Weight Start Date: 05/07/22 Stop Date: 08/05/22 Status: Ordered ferrous sulfate 325 mg oral enteric coated tablet 325 mg, 1, tablet, By Mouth, 2 times a day, # 180 tablet, Refills 0, Tot. Refills 0, Maintenance, 05/03/22 16:52:00 EDT, Route to Pharmacy Electronically, [facility] #[id number], Partial fill upon patient request if the [...] 05/07/22 19:59:00 EDT, Route to Pharmacy Electronically, [facility] #[id number], Partial fill upon patient request if the prescription is for a sched... Start Date: 05/07/22 Stop Date: 08/05/22 Status: Ordered gabapentin 100 mg oral capsule 200 mg, 2, capsule, By Mouth, 3 times a day, 2 capsules to equal 200 mg three times a day., # 180 capsule, Refills 0, Tot. Refills 0, Maintenance, 05/07/22 19:56:00 EDT, Route to Pharmacy Electronically, [facility] #[id number], Partial fill upon... Start Date: 05/07/22 Status: [...] mL, 3 Refills, Maintenance, 11/29/21 21:45:00 EDT, [facility] #52059, Partial fill upon patient request if the prescriptionis for a schedule II opioid drug., 150, cm, ... Start Date: 11/29/21 Status: Ordered levothyroxine 0.025 mg oral tablet 1 tablet, By Mouth, Daily, # 90 tablet, 1 Refills, Maintenance, 05/07/22 19:58:00 EDT, Tablet, [facility] #[id number], 150, cm, 05/02/22 15:04:00 EDT, Height, 98, kg, 03/07/22 19:54:00 EDT, Dry Weight Start Date: 05/07/22 Stop Date: 11/03/22 Status: Ordered LORazepam 0.5 mg oral tablet 1 tablet = 0.5 mg, By Mouth, Daily at bedtime, PRN Anxiety, USE SPARINGLY, # 30 tablet, 0 Refills, Maintenance, 05/11/22 7:10:00 EDT, Tablet, [facility] #[id number], Partial fill upon patient request if the [...] 0 Refills, Maintenance, 05/11/22 7:07:00 EDT, Tablet, [facility] #[id number], Partial fill upon patient request if the [...] 3 Refills, Maintenance, 04/05/21 13:22:00 EDT, Tablet, [facility] #71411, Part... Start Date: 04/05/21 Stop Date: 08/03/21 Status: Ordered NovoLOG FlexPen 100 units/mL injectable solution See Instructions, Subcutaneous Infusion 3 times a day before meals. Sliding scale:: 150-200 2 [id number] 4 UNITS 300-350 6 UNITS, # 3 mL, 3 Refills, Maintenance, 12/01/21 11:54:00 EDT, [facility] #55829, Partial fill upon patient requ... Start Date: [...] 01/19/22 13:52:00 EDT, Route to Pharmacy Electronically, [facility] #[id number], Partial fill upon patient request... Start Date: [...] 10/14/21 18:18:00 EST, Route to Pharmacy Electronically, [facility] #80013,148.4, cm, 10/05/21 10:50:00 EST, Height, 104.5, kg... Start Date: 10/14/21 Stop Date: 04/12/22 Status: Ordered spironolactone 100 mg oral tablet 100 mg, 1, tablet, By Mouth, Daily, # 90 tablet, Refills 1, Tot. Refills 1, Maintenance, 05/24/22 10:31:00 EDT, Route to Pharmacy Electronically, [facility] #[id number], Partial fill upon patient request if the prescription is for a schedule II o... Start Date: 05/24/22 Stop Date: 11/20/22 Status: Ordered trospium 60 mg oral capsule, extended release 1 capsule = 60 mg, By Mouth, Daily in AM, # 90 capsule, 0 Refills, Maintenance, 05/11/22 7:11:00 EDT, [facility] #25617, Partial fill upon patient request if the [...] 11 Refills, Maintenance, 03/15/22 10:32:00 EDT, Powder, [facility] #[id number], Partial fill upon patient request if the [...] Numbness and tingling in hands Confirmed Active *[facility] [phone] EXTERMINATION INSPECTOR HELEN HARITHACELIAHerberth Confirmed Active Hepatitis C virus infection resolved [...] at age: 16; entered on: 11/08/14 Sex Patient Care team information Personnel Name: Winsome De La Rosa NP Address: Address: [address] [place] [id number]
--- OUTSIDE RECORDS SUMMARY | 2023-03-06 14:44 | XMS_ITS | Continuity of Care Document ---
Author Name Unknown Organization [facility] Address [address] [place] [address]- Care Team Providers Care Gis Scientist Name Role Phone Rj MEDICAL SUPPORT ASSISTANT, Winsome Weiss Primary Care Physician [phone] Encounter [facility] Date(s): 11/18/20 - 12/18/20 [facility] [address], [place] [address] Allergies, Adverse Reactions, Alerts Substance Reaction [...] [07/11/2018] [facility] 2Result Comment: [11/11/2015] given at [facility] [address] [place] [address] [phone] 3Result Comment: [07/11/2018] [facility] 5Admin Note: given at [facility] in [place], [place] 6Location [facility] 7Admin Note: boostrix [...] 06/21/20 16:00:00 EST, Route to Pharmacy Electronically, [facility] #[id number], 149.9, cm, 06/21/20 13:54:00 EST, Height, 103.8, kg, 06/21/20 13:54:... Start Date: 06/21/20 Stop Date: 06/29/20 Status: Ordered Colace sodium 100 mg oral capsule 100 mg, 1, capsule, By Mouth, 2 times a day, BUBBLE PACK PLEASE, # 180 capsule, Refills 1, Tot. Refills 1, Maintenance, 11/08/20 17:06:00 EDT, Route to Pharmacy Electronically, [facility] #[id number], 152.4, cm, 11/07/20 7:59:00 EDT, Height, 100.... Start Date: 11/08/20 Stop Date: 05/07/21 Status: Ordered escitalopram 20 mg oral tablet 1 tablet = 20 mg, By Mouth, Daily, # 30 tablet, 5 Refills, Maintenance, 07/22/20 9:23:00 EST, Tablet, [facility] #[id number], 153, cm, 07/22/20 9:04:00 EST, Height, 106, kg, 07/08/20 13:49:00 EST, Dry Weight Start Date: 07/22/20 Stop Date: 01/18/21 Status: Ordered ferrous sulfate 325 mg oral enteric coated tablet 325 mg, 1, tablet, By Mouth, 2 times a day, may take with food to minimize abdominal discomfort, # 180 tablet, Refills 1, Tot. Refills 1, Maintenance, 10/04/20 16:08:00 EST, Route to Pharmacy Electronically, [facility] #[id number], 150, cm, 09/26... Start Date: 10/04/20 Stop Date: 04/02/21 Status: Ordered Flovent HFA 220 mcg/inh inhalation aerosol 2 puffs, Inhalation, 2 times a day, # 1 each, 6 Refills, Maintenance, 11/08/20 17:06:00 EDT, Aerosol, [facility] #[id number], 152.4, cm, 11/07/20 7:59:00 EDT, Height, 100.2, kg, 11/07/20 7:59:00EDT, Dry Weight Start Date: 11/08/20 Stop Date: 06/06/21 Status: Ordered gabapentin 100 mg oral capsule 200 mg, 2, capsule, By Mouth, 3 times a day, # 180 capsule, Refills 1, Tot. Refills 1, Maintenance,09/14/20 15:22:00 EST, Route to Pharmacy Electronically, [facility] #[id number], Partial fill upon patient request if the prescription is for a sc... Start Date: 09/14/20 Status: Ordered Lasix 20 mg oral tablet See Instructions, 1 tablet By Mouth Daily, # 10 tablet, Refills 0, Tot. Refills 0, Maintenance, 11/13/20 22:27:00 EDT, Instructions Replace Required Details, Route to Pharmacy Electronically, [facility] #[id number], Partial fill upon patient requ... Start Date: 11/13/20 Status: Ordered levothyroxine 0.025 mg oral tablet 1 tablet, By Mouth, Daily, BUBBLE PACK PLEASE, # 30 tablet, 5 Refills, Maintenance, 07/22/20 9:24:00 EST, Tablet, [facility] #08225, 153, cm, 07/22/20 9:04:00 EST, Height, 106, kg, 07/08/2013:49:00 EST, Dry Weight Start Date: 07/22/20 Stop Date: 01/18/21 Status: Ordered lisinopril 20 mg oral tablet 20 mg, 1, tablet, By Mouth, Daily, BUBBLE PACK PLEASE, # 30 tablet, Refills 5, Tot. Refills 5, Maintenance, 12/15/20 9:29:00 EDT, Route to Pharmacy Electronically, [facility] #[id number], 153, cm, 11/29/20 15:11:00 EDT, Height, 102.4, kg, ... Start Date: 12/15/20 Stop Date: 06/13/21 Status: Ordered LORazepam 1 mg oral tablet 1 tablet = 1 mg, By Mouth, Daily, PRN as needed for anxiety, # 30 tablet, 0 Refills, Maintenance, 12/15/20 9:28:00 EDT, Tablet, [facility] #[id number], 153, cm, 11/29/20 15:11:00 EDT, Height, 102.4, [...] 03/25/20 19:21:00 EDT, Route to Pharmacy Electronically, [facility] #[id number], 149.9, cm, 03/07/20 10:17:00 EDT, Height, 103.8, kg, 07... Start Date: 03/25/20 Stop Date: 10/21/20 Status: Ordered nystatin topical 588402 u/gm ointment 1 application, Topically, 3 times a day, for 30 days, apply to area under pannus as discussed in the office, # 30 Gm, 1 Refills, Acute 01/27/16 15:10:09, 11/28/15 15:10:09, Ointment, 1 application Topically 3 times a day,x30 days,Instr:apply to area u... Start Date: 4/18/16 Stop Date: 01/27/16 Status: Ordered omeprazole 20 mg oral enteric coated capsule 1 capsule = 20 mg, By Mouth, 2 times a day, BUBBLE PACK PLEASE, # 60 capsule, 3 Refills, Maintenance, 10/24/20 9:19:00 EDT, EC Capsule, [facility] #04517, 149.9, cm, 06/14/20 14:58:00 EST, Height, 101, kg, 06/07/20 10:02:00 EDT, Dry Weight Start Date: 10/24/20 Stop Date: 02/21/21 Status: Ordered ProAir HFA 90 mcg/inh inhalation aerosol 2 puffs, Inhalation, 4 times a day, PRN Wheezing/Shortness of Breath, # 2 each, 3 Refills, Maintenance, 11/08/20 17:08:00 EDT, Aerosol, [facility] #13016, Partial fill upon patient request if the prescription is for a schedule II opioid drug... Start Date: 11/08/20 Stop Date: 03/08/21 Status: Ordered Singulair 10 mg oral tablet 10 mg, 1, tablet, By Mouth, Daily in PM, BUBBLE PACK PLEASE, # 30 tablet, Refills 5, Tot. Refills 5, Maintenance, 07/22/20 9:24:00 EST, Route to Pharmacy Electronically, [facility] #[id number], 153, cm, 07/22/20 9:04:00 EST, Height, 106, [...] Active Numbness and tingling in hands(Confirmed) Active *[facility] [phone] CARE MANAG ER HELEN ROWDY(Confirmed) Active Pulmonary [...]
--- OUTSIDE RECORDS SUMMARY | 2023-03-06 14:44 | XMS_ITS | Continuity of Care Document ---
Author Name Unknown Organization [facility] Address [address] [place] [phone]- Care Team Providers Care Reflector Driller And Deburrer Name Role Phone Rj BEHAVIORAL HEALTH WORKER, Winsome Weiss Primary Care Physician Encounter [facility] Date(s): 01/24/22 - 02/23/22 [facility] [address] [place] [address]- [place] Allergies, Adverse Reactions, Alerts Substance Reaction [...] 7 12/11/13 Gi sukhi 1Result Comment: [07/11/2018] [facility] 3Admin Note: given at [facility] in [place] 4Result Comment: [07/11/2018] [facility] 5Result Comment: [11/11/2015] given at [facility] [address] [place] [address] [phone] 6[facility] 7Admin Note: [facility] 12-28-2012 Medications calcium [...] 01/19/22 19:16:00 EDT, Route to Pharmacy Electronically, [facility] #[id number], Partial fill upon patientrequest if the prescription is for a schedule II op... Start Date: 01/19/22 Status: Ordered docusate sodium 100 mg oral capsule TAKE 1 CAPSULE BY MOUTH TWICE DAILY NEEDED FOR CONSTIPATION Start Date: 02/20/22 Status: Ordered escitalopram 20 mg oral tablet 1 tablet = 20 mg, By Mouth, Daily, # 90 tablet, 1 Refills, Maintenance, 11/29/21 7:27:00 EDT, Tablet, [email or web address] #[id number], 150, cm, 11/03/21 13:46:00 EDT, Height, 100.8, [...] 12/01/21 16:35:00 EDT, Route to Pharmacy Electronically, [facility] #[id number], Partial fill upon patient request if the prescription is for a sched... Start Date: 12/01/21 Stop Date: 05/30/22 Status: Ordered gabapentin 100 mg oral capsule 200 mg, 2, capsule, By Mouth, 3 times a day, 2 capsules to equal 200 mg three times a day., # 180 capsule, Refills 3, Tot. Refills 3, Maintenance, 12/05/21 20:30:00 EDT, Route to Pharmacy Electronically, [facility] #[id number], Partial fill upon... Start Date: 12/05/21 Status: [...] mL, 3 Refills, Maintenance, 11/29/21 21:45:00 EDT, [facility] #43856, Partial fill upon patient request if the prescriptionis for a schedule II opioid drug., 150, cm, ... Start Date: 11/29/21 Status: Ordered levothyroxine 0.025 mg oral tablet 1 tablet, By Mouth, Daily, # 90 tablet, 1 Refills, Maintenance, 11/29/21 7:27:00 EDT, Tablet, [facility] #76351, 150, cm, 11/03/21 13:46:00 EDT, Height, 100.8, kg, 11/01/21 22:19:00 EDT, Dry Weight Start Date: 11/29/21 Stop Date: 05/28/22 Status: Ordered lisinopril 20 mg oral tablet 20 mg, 1, tablet, By Mouth, Daily, # 30 tablet, Refills 0, Maintenance, 02/20/22 21:16:00 EDT, Partial fill upon patient request if the prescription is for a schedule II opioid drug. Start Date: 02/20/22 Status: Ordered LORazepam 0.5 mg oral tablet [...] opioid drug. Start Date: 11/03/21 Status: Ordered Metoprolol Succinate ER 25 mg oral tablet, extended release TAKE 1 TABLET BY MOUTH DAILY Start Date: 02/20/22 Status: Ordered nitroglycerin 0.4 mg sublingual tablet 1 tablet = 0.4 mg, Sublingual, Every 5 minutes, PRN as needed for chest pain, not to exceed 3 doses/15 min--if pain persists, seek medical attention, # 30 tablet, 3 Refills, Maintenance, 04/05/21 13:22:00 EDT, Tablet, [facility] #[id number], Part... Start Date: 04/05/21 Stop Date: 08/03/21 Status: Ordered NovoLOG FlexPen 100 units/mL injectable solution See Instructions, Subcutaneous Infusion 3 times a day before meals. Sliding scale:: 150-200 2 [id number] 4 UNITS 300-350 6 UNITS, # 3 mL, 3 Refills, Maintenance, 12/01/21 11:54:00 EDT, [facility] #[id number], Partial fill upon patient requ... Start Date: [...] 01/19/22 13:52:00 EDT, Route to Pharmacy Electronically, [facility] #[id number], Partial fill upon patient request... Start Date: [...] 10/14/21 18:18:00 EST, Route to Pharmacy Electronically, [facility] #59987,148.4, cm, 10/05/21 10:50:00 EST, Height, 104.5, kg... Start Date: 10/14/21 Stop Date: 04/12/22 Status: Ordered spironolactone 100 mg oral tablet 100 mg, 1, tablet, By Mouth, Daily, # 90 tablet, Refills 1, Tot. Refills 1, Maintenance, 12/01/21 16:34:00 EDT, Route to Pharmacy Electronically, [facility] #56792, Partial fill upon patient request if the prescription is for a schedule II o... Start Date: 12/01/21 Stop Date: 05/30/22 Status: Ordered trospium 60 mg oral capsule, extended release TAKE 1 CAPSULE BY MOUTH DAILY Start Date: 02/20/22 Status: Ordered Tylenol 325 mg oral tablet [...] 11 Refills, Maintenance, 01/06/21 14:47:00 EDT, Powder, [facility] #26815, Partial fill upon patient request if the [...] Numbness and tingling in hands(Confirmed) Active *[facility] [phone] CARE MANAG ER HELEN RENO(Confirmed) Active Hepatitis [...]
--- OUTSIDE RECORDS SUMMARY | 2023-03-06 14:44 | XMS_ITS | Continuity of Care Document ---
Author Name Unknown Organization [facility] Address [address] [place] [address]- Care Team Providers Care Riverine Assault Craft Crewman Name Role Phone Rj PASSENGER CAR CLEANING SUPERVISOR, Winsome M Primary Care Physician [phone] Encounter [facility] Date(s): 06/21/20 - 07/21/20 [facility] [address] [place] [address]- Attending Physician: Dayana Orlando Admitting Physician: AdmDayana nolan Referring Physician: Admtr ArHever Allergies, Adverse Reactions, Alerts Substance Reaction Severity [...] [07/11/2018] [facility] 2Result Comment: [11/11/2015] given at [facility] [address] [place], [place] [id number] 3Result Comment: [07/11/2018] [facility] 4Location History: [facility] 5Admin Note: given at [facility] in [place], [place] 6[facility] 7Admin Note: boostrix [...] 06/21/20 16:00:00 EST, Route to Pharmacy Electronically, [facility] #[id number], 149.9, cm, 06/21/20 13:54:00 EST, Height, 103.8, [...] 5 Refills, Maintenance, 04/27/20 9:19:00 EDT, Tablet, [facility] #[id number], 149.9, cm, 04/27/20 9:00:00 EDT, Height, 103.8, kg, 03/07/20 10:17:00 EDT, Dry Weight Start Date: 04/27/20 Stop Date: 10/24/20 Status: Ordered ferrous sulfate 325 mg oral enteric coated tablet 325 mg, 1, tablet, By Mouth, 2 times a day, # 180 tablet, Refills 1, Tot. Refills 1, Maintenance, 12/24/18 14:50:03 EDT, Route to Pharmacy Electronically, [id number], [facility] Start Date: 12/24/18 Stop Date: 06/22/19 Status: Ordered Flovent HFA 220 mcg/inh inhalation aerosol 2 puffs, Inhalation, 2 times a day, # 1 each, 6 Refills, Maintenance, 05/30/20 10:57:00 EDT, Aerosol, [facility] #[id number], 149.9, cm, 05/30/20 10:53:00 EDT, Height, 103.8, kg, 03/07/20 10:17:00 EDT, Dry Weight Start Date: 05/30/20 Stop Date: 12/26/20 Status: Ordered gabapentin 100 mg oral capsule 100 mg, 1, capsule, By Mouth, 2 times a day, BUBBLE PACK PLEASE, # 60 capsule, Refills 3, Tot. Refills 3, Maintenance, 05/30/20 11:10:00 EDT, Route to Pharmacy Electronically, [facility] #[id number], 149.9, cm, 05/30/20 10:53:00 EDT, Height, 103.... Start Date: 05/30/20 Stop Date: 09/27/20 Status: Ordered levothyroxine 0.025 mg oral tablet 1 tablet, By Mouth, Daily, BUBBLE PACK PLEASE, # 30 tablet, 5 Refills, Maintenance, 04/27/20 9:20:00 EDT, Tablet, [facility] #[id number], 149.9, cm, 04/27/20 9:00:00 EDT, Height, 103.8, kg, 03/07/20 10:17:00 EDT, Dry Weight Start Date: 04/27/20 Stop Date: 10/24/20 Status: Ordered lisinopril 20 mg oral tablet 20 mg, 1, tablet, By Mouth, Daily, BUBBLE PACK PLEASE, # 30 tablet, Refills 5, Tot. Refills 5, Maintenance, 04/27/20 9:21:00 EDT, Route to Pharmacy Electronically, [facility] #00459, 149.9,cm, 04/27/20 9:00:00 EDT, Height, 103.8, kg, 03/07/... Start Date: 04/27/20 Stop Date: 10/24/20 Status: Ordered LORazepam 1 mg oral tablet 1 tablet = 1 mg, By Mouth, Daily, PRN as needed for anxiety, # 30 tablet, 0 Refills, Maintenance, 05/30/20 10:55:00 EDT, Tablet, [facility] #76255, 149.9, cm, 05/30/20 10:53:00 EDT, Height,103.8, kg, 03/07/20 10:17:00 EDT, Dry Weight Start Date: 05/30/20 Stop Date: 06/29/20 Status: Ordered nortriptyline 50 mg oral capsule 50 mg, 1, capsule, By Mouth, Daily, BUBBLE PACK PLEASE, # 30 capsule, Refills 6, Tot. Refills 6, Maintenance, 03/25/20 19:21:00 EDT, Route to Pharmacy Electronically, [facility] #59598, 149.9, cm, 03/07/20 10:17:00 EDT, Height, 103.8, kg, 07... Start Date: 03/25/20 Stop Date: 10/21/20 Status: Ordered nystatin topical 013799 u/gm ointment 1 application, Topically, 3 times [...] Refills, Maintenance, 10/24/20 9:19:00 EDT, EC Capsule, [facility] #70794, 149.9, cm, 06/14/20 14:58:00 EST, Height, 101, kg, 06/07/20 10:02:00 EDT, Dry Weight Start Date: 10/24/20 Stop Date: 02/21/21 Status: Ordered Singulair 10 mg oral tablet 10 mg, 1, tablet, By Mouth, Daily in PM, BUBBLE PACK PLEASE, # 30 tablet, Refills 5, Tot. Refills 5, Maintenance, 03/02/20 16:02:00 EDT, Route to Pharmacy Electronically, [facility] #37465,149.9, cm, 03/02/20 10:16:00 EDT, Height, 94.4, kg,... [...] Numbness and tingling in hands(Confirmed) Active *[facility] [phone] CARE MANAG ER HELEN RENO(Confirmed) Active Rib [...]
--- OUTSIDE RECORDS SUMMARY | 2023-03-06 14:44 | XMS_ITS | Continuity of Care Document ---
Author Name Unknown Organization [facility] Address [address] [place] [phone]- Care Team Providers Care Shear Grinder Operator Helper Name Role Phone Winsome De La Rosa NP Primary Care Physician Encounter [facility] Date(s): 02/23/20 - 03/01/20 [facility] [address] [place] [address]- Attending Physician: Winsome De La Rosa NP [...] [07/11/2018] [facility] 2Result Comment: [11/11/2015] given at [facility] [address] [place] [address] 3Result Comment: [07/11/2018] [facility] 5Admin Note: given at [facility] in [place], [place] 6Location [facility] 7Admin [...] 10/21/19 14:37:00 EDT, Route to Pharmacy Electronically, [facility] #[id number], 149.9, cm, 08/10/19 9:46:00 EST, Height, 94.4... [...] 2 Refills, Maintenance, 02/23/20 16:28:00 EDT, Tablet, [facility] #01635, 149.9, cm, 02/23/20 13:20:00 EDT, Height, 94.4, kg, 05/21/19 10:46:00 EDT, Dry Weight Start Date: 02/23/20 Stop Date: 05/23/20 Status: Ordered FeroSul 325 mg oral tablet 1 tablet = 325 mg, By Mouth, 2 times a day, BUBBLE PACK PLEASE, # 60 tablet, 5 Refills, Soft Stop, 10/21/19 14:38:00 EDT, [facility] #23600, 149.9, cm, 08/10/19 9:46:00 EST, Height, 94.4, kg, 05/21/19 10:46:00 EDT, Dry Weight Start Date: 10/21/19 Stop Date: 04/18/20 Status: Ordered ferrous sulfate 325 mg oral enteric coated tablet 325 mg, 1, tablet, By Mouth, 2 times a day, # 180 tablet, Refills 1, Tot. Refills 1, Maintenance, 12/24/18 14:50:03 EDT, [id number] Start Date: 12/24/18 Stop Date: 06/22/19 [...] capsule, Refills 0, Tot. Refills 0, Maintenance, 01/18/20 10:21:00 EDT, Route to Pharmacy Electronically, [facility] #21924, 149.9, cm, 12/31/19 13:16:00 EDT, Height, 94.4... Start Date: 01/18/20 Stop Date: 02/17/20 Status: Ordered levothyroxine 0.025 mg oral tablet 1 tablet, By Mouth, Daily, BUBBLE PACK PLEASE, # 30 tablet, 5 Refills, Maintenance, 10/21/19 14:40:00 EDT, Tablet, [facility] #32630, 149.9, cm, 08/10/19 9:46:00 EST, Height, 94.4, kg, 05/21/19 10:46:00 EDT, Dry Weight Start Date: 10/21/19 Stop Date: 04/18/20 Status: Ordered lisinopril 20 mg oral tablet 20 mg, 1, tablet, By Mouth, Daily, BUBBLE PACK PLEASE, # 30 tablet, Refills 5, Tot. Refills 5, Maintenance, 10/21/19 14:40:00 EDT, Route to Pharmacy Electronically, [facility] #64546, 149.9, cm, 08/10/19 9:46:00 EST, Height, 94.4, kg, ... Start Date: 10/21/19 Stop Date: 04/18/20 Status: Ordered LORazepam 1 mg oral tablet 1 tablet = 1 mg, By Mouth, Daily, PRN as needed for anxiety, # 30 tablet, 0 Refills, Maintenance, 02/05/20 11:32:00 EDT, Tablet, [facility] #48348, 149.9, cm, 02/05/20 11:20:00 EDT, Height,94.4, kg, 05/21/19 10:46:00 EDT, Dry Weight Start Date: 02/05/20 Stop Date: 03/06/20 Status: Ordered nortriptyline 50 mg oral capsule 50 mg, 1, capsule, By Mouth, Daily, BUBBLE PACK PLEASE, # 30 capsule, Refills 1, Tot. Refills 1, Maintenance, 02/15/20 11:10:00 EDT, Route to Pharmacy Electronically, [facility] #[id number], 149.9, cm, 02/05/20 11:20:00 EDT, Height, 94.4, kg, ... Start Date: 02/15/20 Stop Date: 04/15/20 Status: Ordered nystatin topical 319063 u/gm ointment 1 application, Topically, 3 times [...] Refills, Maintenance, 10/21/19 14:42:00 EDT, EC Capsule, [facility] #28710, 149.9, cm, 08/10/19 9:46:00 EST, Height, 94.4, kg, 05/21/19 10:46:00 EDT, Dry Weight Start Date: 10/21/19 Stop Date: 04/18/20 Status: Ordered Singulair 10 mg oral tablet 10 mg, 1, tablet, By Mouth, Daily in PM, BUBBLE PACK PLEASE, # 30 tablet, Refills 5, Tot. Refills 5, Maintenance, 10/21/19 14:41:00 EDT, Route to Pharmacy Electronically, [facility] #[id number],149.9, cm, 08/10/19 9:46:00 EST, Height, 94.4, kg,... [...] Numbness and tingling in hands(Confirmed) Active *[facility] [phone] CARE MANAG ER HELEN RENO(Confirmed) Active Rib pain on left side(Confirmed) Active Pain in right shoulder(Confirmed) Active Urge urinary incontinence(Confirmed) Active 1tx with apc today due to bleeding. 2normal PFT's 11/22/14 r/o COPD 3childhood onset 4possibly Type III 53+ 6s/p bilateral salpingo-oophrectomy Vital Signs Most recent to oldest [Reference Range]: 1 Height 149.9 cm (02/23/20 1:20 PM) Social History Social History Type Response Smoking Status Former smoker; Tobac co user in household: No; Type: Cigarettes; Stopped at age: 48; Tobacco use times per day: up to 2 ppd; Started at age: 16; entered on: 11/08/14 Sex
--- OUTSIDE RECORDS SUMMARY | 2023-03-06 14:45 | XMS_ITS | Continuity of Care Document ---
Author Name Unknown Organization [facility] Address [address] [place] [address]- Care Team Providers Care Swaging Machine Adjuster Name Role Phone Rj MEDICAL SCHEDULER, Winsome Weiss Primary Care Physician Encounter [facility] Date(s): 04/10/19 - 11/11/[address] [address]- [facility] Attending Physician: Jaime Black DO Admitting Physician: [...] [07/11/2018] [facility] 2Result Comment: [11/11/2015] given at [facility] [address] [place] [address] [phone] 3Result Comment: [07/11/2018] [facility] 5Admin Note: given at [facility] in [place], [place] 6Location History[facility] 7Admin Note: boostrix [...] 10/21/19 14:37:00 EDT, Route to Pharmacy Electronically, [facility] #50042, 149.9, cm, 08/10/19 9:46:00 EST, Height, 94.4... [...] 6 Refills, Maintenance, 10/21/19 14:37:00 EDT, Tablet, [facility] #48387, 149.9, cm, 08/10/19 9:46:00 EST, Height, 94.4, kg, 05/21/19 10:46:00 EDT, Dry Weight Start Date: 10/21/19 Status: Ordered FeroSul 325 mg oral tablet 1 tablet = 325 mg, By Mouth, 2 times a day, BUBBLE PACK PLEASE, # 60 tablet, 5 Refills, Soft Stop, 10/21/19 14:38:00 EDT, [facility] #31661, 149.9, cm, 08/10/19 9:46:00 EST, Height, 94.4, kg, 05/21/19 10:46:00 EDT, Dry Weight Start Date: 10/21/19 Stop Date: 04/18/20 Status: Ordered ferrous sulfate 325 mg oral enteric coated tablet 325 mg, 1, tablet, By Mouth, 2 times a day, # 180 tablet, Refills 1, Tot. Refills 1, Maintenance, 12/24/18 14:50:03 EDT, [id number] Start Date: 12/24/18 Stop Date: 06/22/19 [...] 10/21/19 14:39:00 EDT, Route to Pharmacy Electronically, [facility] #62103, 149.9, cm, 08/10/19 9:46:00 EST, Height, 94.4,... Start Date: 10/21/19 Stop Date: 11/20/19 Status: Ordered levothyroxine 0.025 mg oral tablet 1 tablet, By Mouth, Daily, BUBBLE PACK PLEASE, # 30 tablet, 5 Refills, Maintenance, 10/21/19 14:40:00 EDT, Tablet, [facility] #28691, 149.9, cm, 08/10/19 9:46:00 EST, Height, 94.4, kg, 05/21/19 10:46:00 EDT, Dry Weight Start Date: 10/21/19 Stop Date: 04/18/20 Status: Ordered lisinopril 20 mg oral tablet 20 mg, 1, tablet, By Mouth, Daily, BUBBLE PACK PLEASE, # 30 tablet, Refills 5, Tot. Refills 5, Maintenance, 10/21/19 14:40:00 EDT, Route to Pharmacy Electronically, [facility] #96052, 149.9, cm, 08/10/19 9:46:00 EST, Height, 94.4, kg, ... Start Date: 10/21/19 Stop Date: 04/18/20 Status: Ordered LORazepam 1 mg oral tablet 1 tablet = 1 mg, By Mouth, Daily, PRN as needed for anxiety, # 30 tablet, 0 Refills, Maintenance, 10/14/19 12:12:00 EST, Tablet, [facility] #28692, 149.9, cm, 08/10/19 9:46:00 EST, Height, 94.4, kg, 05/21/19 10:46:00 EDT, Dry Weight Start Date: 10/14/19 Stop Date: 11/13/19 Status: Ordered nortriptyline 50 mg oral capsule 50 mg, 1, capsule, By Mouth, Daily, BUBBLE PACK PLEASE, # 30 capsule, Refills 0, Tot. Refills 0, Maintenance, 10/21/19 14:42:00 EDT, Route to Pharmacy Electronically, [facility] #[id number], 149.9, cm, 08/10/19 9:46:00 EST, Height, 94.4, kg, 05/12... Start Date: 10/21/19 Stop Date: 11/20/19 Status: Ordered nystatin topical 528649 u/gm ointment 1 application, Topically, 3 times [...] Refills, Maintenance, 10/21/19 14:42:00 EDT, EC Capsule, [facility] #02522, 149.9, cm, 08/10/19 9:46:00 EST, Height, 94.4, kg, 05/21/19 10:46:00 EDT, Dry Weight Start Date: 10/21/19 Stop Date: 04/18/20 Status: Ordered Singulair 10 mg oral tablet 10 mg, 1, tablet, By Mouth, Daily in PM, BUBBLE PACK PLEASE, # 30 tablet, Refills 5, Tot. Refills 5, Maintenance, 10/21/19 14:41:00 EDT, Route to Pharmacy Electronically, [facility] #11661,149.9, cm, 08/10/19 9:46:00 EST, Height, 94.4, kg,... [...] Active Numbness and tingling in hands(Confirmed) Active *[facility] [phone] CARE MANAG ER HELEN ROWDY(Confirmed) Active Rib [...]
--- OUTSIDE RECORDS SUMMARY | 2023-03-06 14:45 | XMS_ITS | Continuity of Care Document ---
Author Name Unknown Organization [facility] Address [address] [place] [address]- Care Team Providers Care Match Up Person Name Role Phone Rj HEARING OFFICER, Winsome Weiss Primary Care Physician Encounter [facility] Date(s): 11/30/21 - 01/25/22 [facility] [address] [place] [address]- Attending Physician: Alexi LE, Samantha Whitaker Allergies, Adverse Reactions, Alerts Substance Reaction Severity [...] 2Location History: [facility] 3Admin Note: given at [facility] in [place] 4Result Comment: [07/11/2018] [facility] 5Result Comment: [11/11/2015] given at [facility] [address] [place] [phone] 6Location History: [facility] 7Admin Note: [facility] 12-28-2012 Medications albuterol [...] 01/19/22 19:16:00 EDT, Route to Pharmacy Electronically, [facility] #[id number], Partial fill upon patientrequest if the prescription is for a schedule II op... Start Date: 01/19/22 Status: Ordered escitalopram 20 mg oral tablet 1 tablet = 20 mg, By Mouth, Daily, # 90 tablet, 1 Refills, Maintenance, 11/29/21 7:27:00 EDT, Tablet, [facility] #09770, 150, cm, 11/03/21 13:46:00 EDT, Height, 100.8, kg, 11/01/21 22:19:00EDT, Dry Weight Start Date: 11/29/21 Stop Date: 05/28/22 Status: Ordered furosemide 20 mg oral tablet 20 mg, 1, tablet, By Mouth, 2 times a day, # 180 tablet, Refills 1, Tot. Refills 1, Maintenance, 12/01/21 16:35:00 EDT, Route to Pharmacy Electronically, [facility] #[id number], Partial fill upon patient request if the prescription is for a sched... Start Date: 12/01/21 Stop Date: 05/30/22 Status: Ordered gabapentin 100 mg oral capsule 200 mg, 2, capsule, By Mouth, 3 times a day, 2 capsules to equal 200 mg three times a day., # 180 capsule, Refills 3, Tot. Refills 3, Maintenance, 12/05/21 20:30:00 EDT, Route to Pharmacy Electronically, [facility] #[id number], Partial fill upon... Start Date: 12/05/21 Status: [...] 04/06/21 12:52:00 EDT, Route to Pharmacy Electronically, [facility] #[id number], Partial fill upon patient request if the prescription is for a schedule... Start Date: 04/06/21 Status: Ordered Lantus Solostar Pen 100 units/mL subcutaneous solution = 15 units, Subcutaneous Infusion, Daily, with evening meal, # 15 mL, 3 Refills, Maintenance, 11/29/21 21:45:00 EDT, [facility][id number], Partial fill upon patient request if the prescriptionis for a schedule II opioid drug., 150, cm, ... Start Date: 11/29/21 Status: Ordered levothyroxine 0.025 mg oral tablet 1 tablet, By Mouth, Daily, # 90 tablet, 1 Refills, Maintenance, 11/29/21 7:27:00 EDT, Tablet, [facility] #22707, 150, cm, 11/03/21 13:46:00 EDT, Height, 100.8, [...] 3 Refills, Maintenance, 04/05/21 13:22:00 EDT, Tablet, [facility] #14783, Part... Start Date: 04/05/21 Stop Date: 08/03/21 Status: Ordered NovoLOG FlexPen 100 units/mL injectable solution See Instructions, Subcutaneous Infusion 3 times a day before meals. Sliding scale:: 150-200 2 [id number] 4 UNITS 300-350 6 UNITS, # 3 mL, 3 Refills, Maintenance, 12/01/21 11:54:00 EDT, [facility] #02956, Partial fill upon patient requ... Start Date: [...] 01/19/22 13:52:00 EDT, Route to Pharmacy Electronically, [facility] #[id number], Partial fill upon patient request... Start Date: [...] 10/14/21 18:18:00 EST, Route to Pharmacy Electronically, [facility] #18705,148.4, cm, 10/05/21 10:50:00 EST, Height, 104.5, kg... Start Date: 10/14/21 Stop Date: 04/12/22 Status: Ordered spironolactone 100 mg oral tablet 100 mg, 1, tablet, By Mouth, Daily, # 90 tablet, Refills 1, Tot. Refills 1, Maintenance, 12/01/21 16:34:00 EDT, Route to Pharmacy Electronically, [facility] #[id number], Partial fill upon patient request if the [...] 11 Refills, Maintenance, 01/06/21 14:47:00 EDT, Powder, [facility] #[id number], Partial fill upon patient request if the [...] and tingling in hands(Confirmed) Active *[facility] [phone] CARE MANAG ER HELEN RENO(Confirmed) Active Hepatitis [...]
--- OUTSIDE RECORDS SUMMARY | 2023-03-06 14:45 | XMS_ITS | Continuity of Care Document ---
Author Name Unknown Organization [facility] Address [address] [place] [address]- Care Team Providers Care Staff Registered Nurse Name Role Phone Rj GUILLOTINE TRIMMER, Winsome M Primary Care Physician Encounter [facility] Date(s): 09/29/19 - 11/11/[address] [address]- [facility] Attending Physician: Jaime Black DO Admitting Physician: [...] [07/11/2018] [facility] 2Result Comment: [11/11/2015] given at [facility] [address] [place] [address] [phone] 3Result Comment: [07/11/2018] [facility] 5Admin Note: given at [facility] in [place], [place] 6Location History[facility] 7Admin Note: boostrix [...] 10/21/19 14:37:00 EDT, Route to Pharmacy Electronically, [facility] #42655, 149.9, cm, 08/10/19 9:46:00 EST, Height, 94.4... [...] 6 Refills, Maintenance, 10/21/19 14:37:00 EDT, Tablet, [facility] #67667, 149.9, cm, 08/10/19 9:46:00 EST, Height, 94.4, kg, 05/21/19 10:46:00 EDT, Dry Weight Start Date: 10/21/19 Status: Ordered FeroSul 325 mg oral tablet 1 tablet = 325 mg, By Mouth, 2 times a day, BUBBLE PACK PLEASE, # 60 tablet, 5 Refills, Soft Stop, 10/21/19 14:38:00 EDT, [facility] #25070, 149.9, cm, 08/10/19 9:46:00 EST, Height, 94.4, kg, 05/21/19 10:46:00 EDT, Dry Weight Start Date: 10/21/19 Stop Date: 04/18/20 Status: Ordered ferrous sulfate 325 mg oral enteric coated tablet 325 mg, 1, tablet, By Mouth, 2 times a day, # 180 tablet, Refills 1, Tot. Refills 1, Maintenance, 12/24/18 14:50:03 EDT, Route to Pharmacy Electronically, [id number] Start Date: 12/24/18 Stop Date: 06/22/19 [...] 10/21/19 14:39:00 EDT, Route to Pharmacy Electronically, [facility] #62253, 149.9, cm, 08/10/19 9:46:00 EST, Height, 94.4,... Start Date: 10/21/19 Stop Date: 11/20/19 Status: Ordered levothyroxine 0.025 mg oral tablet 1 tablet, By Mouth, Daily, BUBBLE PACK PLEASE, # 30 tablet, 5 Refills, Maintenance, 10/21/19 14:40:00 EDT, Tablet, [facility] #05597, 149.9, cm, 08/10/19 9:46:00 EST, Height, 94.4, kg, 05/21/19 10:46:00 EDT, Dry Weight Start Date: 10/21/19 Stop Date: 04/18/20 Status: Ordered lisinopril 20 mg oral tablet 20 mg, 1, tablet, By Mouth, Daily, BUBBLE PACK PLEASE, # 30 tablet, Refills 5, Tot. Refills 5, Maintenance, 10/21/19 14:40:00 EDT, Route to Pharmacy Electronically, [facility] #90529, 149.9, cm, 08/10/19 9:46:00 EST, Height, 94.4, kg, ... Start Date: 10/21/19 Stop Date: 04/18/20 Status: Ordered LORazepam 1 mg oral tablet 1 tablet = 1 mg, By Mouth, Daily, PRN as needed for anxiety, # 30 tablet, 0 Refills, Maintenance, 10/14/19 12:12:00 EST, Tablet, [facility] #10103, 149.9, cm, 08/10/19 9:46:00 EST, Height, 94.4, kg, 05/21/19 10:46:00 EDT, Dry Weight Start Date: 10/14/19 Stop Date: 11/13/19 Status: Ordered nortriptyline 50 mg oral capsule 50 mg, 1, capsule, By Mouth, Daily, BUBBLE PACK PLEASE, # 30 capsule, Refills 0, Tot. Refills 0, Maintenance, 10/21/19 14:42:00 EDT, Route to Pharmacy Electronically, [facility] #74387, 149.9, cm, 08/10/19 9:46:00 EST, Height, 94.4, kg, 05/12... Start Date: 10/21/19 Stop Date: 11/20/19 Status: Ordered nystatin topical 453211 u/gm ointment 1 application, Topically, 3 times [...] Refills, Maintenance, 10/21/19 14:42:00 EDT, EC Capsule, [facility] #28286, 149.9, cm, 08/10/19 9:46:00 EST, Height, 94.4, kg, 05/21/19 10:46:00 EDT, Dry Weight Start Date: 10/21/19 Stop Date: 04/18/20 Status: Ordered Singulair 10 mg oral tablet 10 mg, 1, tablet, By Mouth, Daily in PM, BUBBLE PACK PLEASE, # 30 tablet, Refills 5, Tot. Refills 5, Maintenance, 10/21/19 14:41:00 EDT, [facility], [email or web address]63092,149.9, cm, 08/10/19 9:46:00 EST, Height, 94.4, kg,... [...] in hands(Confirmed) Active *[facility] [phone] CARE MANAG ER HELEN ROWDY(Confirmed) Active Rib [...]
--- OUTSIDE RECORDS SUMMARY | 2023-03-06 14:45 | XMS_ITS | Continuity of Care Document ---
Author Name Unknown Organization [facility] [place] Address [address] [place] [address]- Care Team Providers Care Survey Manager Name Role Phone Rj HAMILTON, Winsome Weiss Primary Care Physician [phone] Encounter [facility] Date(s): 01/26/22 - 05/26/22 [facility] [place] [address] [place] [address]- Attending Physician: Zackery Maguire MD Referring Physician: Winsome De La Rosa [...] 2[facility] 3Admin Note: given at [facility] in [place] 4Result Comment: [07/11/2018] [facility] 5Result Comment: [11/11/2015] given at [facility] [address] [place] [address] [phone] 6[facility] History[facility] 7Admin Note: boostrix vis 12-28-2012 Medications Breo Ellipta 200 mcg-25 mcg/inh inhalation powder 1 puffs, Inhalation, Daily, # 1 each, 11 Refills, Maintenance, 12/20/21 15:11:00 EDT, Powder, [facility] #[id number], Partial fill upon patient request if the [...] 01/19/22 19:16:00 EDT, Route to Pharmacy Electronically, [facility] #[id number], Partial fill upon patientrequest if the prescription is for a schedule II op... Start Date: 01/19/22 Status: Ordered docusate sodium 100 mg oral capsule 100 mg, 1, capsule, By Mouth, Every 12 hours, PRN, # 60 capsule, Refills 0, Tot. Refills 0, Maintenance, Constipation, 05/07/22 19:59:00 EDT, Route to Pharmacy Electronically, [facility] #[id number], Partial fill upon patient request if the presc... Start Date: 05/07/22 Stop Date: 06/06/22 Status: Ordered docusate sodium 100 mg oral capsule TAKE 1 CAPSULE BY MOUTH TWICE DAILY NEEDED FOR CONSTIPATION Start Date: 02/20/22 Status: Ordered escitalopram 20 mg oral tablet 1 tablet = 20 mg, By Mouth, Daily, # 90 tablet, 0 Refills, Maintenance, 05/07/22 20:00:00 EDT, Tablet, [facility] #[id number], 150, cm, 05/02/22 15:04:00 EDT, Height, 98, kg, 03/07/22 19:54:00 EDT, Dry Weight Start Date: 05/07/22 Stop Date: 08/05/22 Status: Ordered ferrous sulfate 325 mg oral enteric coated tablet 325 mg, 1, tablet, By Mouth, 2 times a day, # 180 tablet, Refills 0, Tot. Refills 0, Maintenance, 05/03/22 16:52:00 EDT, Route to Pharmacy Electronically, [facility] #[id number], Partial fill upon patient request if the [...] 05/07/22 19:59:00 EDT, Route to Pharmacy Electronically, [facility] #[id number], Partial fill upon patient request if the prescription is for a sched... Start Date: 05/07/22 Stop Date: 08/05/22 Status: Ordered gabapentin 100 mg oral capsule 200 mg, 2, capsule, By Mouth, 3 times a day, 2 capsules to equal 200 mg three times a day., # 180 capsule, Refills 0, Tot. Refills 0, Maintenance, 05/07/22 19:56:00 EDT, Route to Pharmacy Electronically, [facility] #[id number], Partial fill upon... Start Date: 05/07/22 Status: [...] mL, 3 Refills, Maintenance, 11/29/21 21:45:00 EDT, [facility] #[id number], Partial fill upon patient request if the prescriptionis for a schedule II opioid drug., 150, cm, ... Start Date: 11/29/21 Status: Ordered levothyroxine 0.025 mg oral tablet 1 tablet, By Mouth, Daily, # 90 tablet, 1 Refills, Maintenance, 05/07/22 19:58:00 EDT, Tablet, [facility] #[id number], 150, cm, 05/02/22 15:04:00 EDT, Height, 98, kg, 03/07/22 19:54:00 EDT, Dry Weight Start Date: 05/07/22 Stop Date: 11/03/22 Status: Ordered LORazepam 0.5 mg oral tablet 1 tablet = 0.5 mg, By Mouth, Daily at bedtime, PRN Anxiety, USE SPARINGLY, # 30 tablet, 0 Refills, Maintenance, 05/11/22 7:10:00 EDT, Tablet, [facility] #[id number], Partial fill upon patient request if the [...] 0 Refills, Maintenance, 05/11/22 7:07:00 EDT, Tablet, [facility] #[id number], Partial fill upon patient request if the [...] 3 Refills, Maintenance, 04/05/21 13:22:00 EDT, Tablet, [facility] #[id number], Part... Start Date: 04/05/21 Stop Date: 08/03/21 Status: Ordered NovoLOG FlexPen 100 units/mL injectable solution See Instructions, Subcutaneous Infusion 3 times a day before meals. Sliding scale:: 150-200 2 [id number] 4 UNITS 300-350 6 UNITS, # 3 mL, 3 Refills, Maintenance, 12/01/21 11:54:00 EDT, [facility] #[id number], Partial fill upon patient requ... Start Date: [...] 01/19/22 13:52:00 EDT, Route to Pharmacy Electronically, [facility] #[id number], Partial fill upon patient request... Start Date: [...] 10/14/21 18:18:00 EST, Route to Pharmacy Electronically, [facility] #[id number],148.4, cm, 10/05/21 10:50:00 EST, Height, 104.5, kg... Start Date: 10/14/21 Stop Date: 04/12/22 Status: Ordered spironolactone 100 mg oral tablet 100 mg, 1, tablet, By Mouth, Daily, # 90 tablet, Refills 1, Tot. Refills 1, Maintenance, 05/24/22 10:31:00 EDT, Route to Pharmacy Electronically, [facility] #[id number], Partial fill upon patient request if the prescription is for a schedule II o... Start Date: 05/24/22 Stop Date: 11/20/22 Status: Ordered trospium 60 mg oral capsule, extended release 1 capsule = 60 mg, By Mouth, Daily in AM, # 90 capsule, 0 Refills, Maintenance, 05/11/22 7:11:00 EDT, [facility] #[id number], Partial fill upon patient request if the [...] 11 Refills, Maintenance, 03/15/22 10:32:00 EDT, Powder, [facility] #[id number], Partial fill upon patient request if the [...] and tingling in hands Confirmed Active *[facility] [phone] LOGISTIC MANAGER HELEN HARITHACELIAHerberth Confirmed Active Hepatitis C virus [...] Sex Patient Care team information Personnel Name: Rj HAMILTON, Winsome Weiss Address: Address: [address] [place] [id number]
--- OUTSIDE RECORDS SUMMARY | 2023-03-06 14:45 | XMS_ITS | Continuity of Care Document ---
Author Name Unknown Organization [facility] Address [address] [place] [address] [address], [address] [place] [address]- Care Team Providers Care Barrel Endshake Adjuster Name Role Phone Rj CHIEF SPECIALIST LEED, Winsome Weiss Primary Care Physician Encounter [facility] Date(s): 12/20/21 - 01/19/[address], [address] [place] [address]- Allergies, Adverse Reactions, Alerts Substance Reaction Severity [...] 2[facility] 3Admin Note: given at [facility] in [place] 4[facility] Comment: [facility]07[facility]11/2018[facility] 5Result Comment: [11/11/2015] given at [facility] [address] [place] [address] [phone] 6[facility] 7Admin Note: boostrix vis [...] 01/19/22 19:16:00 EDT, Route to Pharmacy Electronically, [facility] #[id number], Partial fill upon patientrequest if the prescription is for a schedule II op... Start Date: 01/19/22 Status: Ordered escitalopram 20 mg oral tablet 1 tablet = 20 mg, By Mouth, Daily, # 90 tablet, 1 Refills, Maintenance, 11/29/21 7:27:00 EDT, Tablet, [facility] #[id number], 150, cm, 11/03/21 13:46:00 EDT, Height, 100.8, kg, 11/01/21 22:19:00EDT, Dry Weight Start Date: 11/29/21 Stop Date: 05/28/22 Status: Ordered furosemide 20 mg oral tablet 20 mg, 1, tablet, By Mouth, 2 times a day, # 180 tablet, Refills 1, Tot. Refills 1, Maintenance, 12/01/21 16:35:00 EDT, Route to Pharmacy Electronically, [facility] #[id number], Partial fill upon patient request if the prescription is for a sched... Start Date: 12/01/21 Stop Date: 05/30/22 Status: Ordered gabapentin 100 mg oral capsule 200 mg, 2, capsule, By Mouth, 3 times a day, 2 capsules to equal 200 mg three times a day., # 180 capsule, Refills 3, Tot. Refills 3, Maintenance, 12/05/21 20:30:00 EDT, Route to Pharmacy Electronically, [facility] #[id number], Partial fill upon... Start Date: 12/05/21 Status: [...] 04/06/21 12:52:00 EDT, Route to Pharmacy Electronically, [facility] #[id number], Partial fill upon patient request if the prescription is for a schedule... Start Date: 04/06/21 Status: Ordered Lantus Solostar Pen 100 units/mL subcutaneous solution = 15 units, Subcutaneous Infusion, Daily, with evening meal, # 15 mL, 3 Refills, Maintenance, 11/29/21 21:45:00 EDT, [facility] #[id number], Partial fill upon patient request if the prescriptionis for a schedule II opioid drug., 150, cm, ... Start Date: 11/29/21 Status: Ordered levothyroxine 0.025 mg oral tablet 1 tablet, By Mouth, Daily, # 90 tablet, 1 Refills, Maintenance, 11/29/21 7:27:00 EDT, Tablet, [facility] #[id number], 150, cm, 11/03/21 13:46:00 EDT, Height, 100.8, [...] 3 Refills, Maintenance, 04/05/21 13:22:00 EDT, Tablet, [facility] #[id number], Part... Start Date: 04/05/21 Stop Date: 08/03/21 Status: Ordered NovoLOG FlexPen 100 units/mL injectable solution See Instructions, Subcutaneous Infusion 3 times a day before meals. Sliding scale:: 150-200 2 [id number] 4 UNITS 300-350 6 UNITS, # 3 mL, 3 Refills, Maintenance, 12/01/21 11:54:00 EDT, [facility] #[id number], Partial fill upon patient requ... Start Date: [...] 01/19/22 13:52:00 EDT, Route to Pharmacy Electronically, [facility] #[id number], Partial fill upon patient request... Start Date: [...] 10/14/21 18:18:00 EST, Route to Pharmacy Electronically, [facility] #[id number],148.4, cm, 10/05/21 10:50:00 EST, Height, 104.5, kg... Start Date: 10/14/21 Stop Date: 04/12/22 Status: Ordered spironolactone 100 mg oral tablet 100 mg, 1, tablet, By Mouth, Daily, # 90 tablet, Refills 1, Tot. Refills 1, Maintenance, 12/01/21 16:34:00 EDT, Route to Pharmacy Electronically, [facility] #[id number], Partial fill upon patient request if the [...] 11 Refills, Maintenance, 01/06/21 14:47:00 EDT, Powder, [facility] #[id number], Partial fill upon patient request if the [...] Numbness and tingling in hands(Confirmed) Active *[facility] [phone] CARE MANAG ER HELEN RENO(Confirmed) Active Hepatitis [...]
--- OUTSIDE RECORDS SUMMARY | 2023-03-06 14:45 | XMS_ITS | Continuity of Care Document ---
Author Name Unknown Organization [facility] Address [address] [place] [address]- Care Team Providers Care Projector Operator Name Role Phone Rj SCREEN EXAMINER, Winsome Weiss Primary Care Physician Encounter [facility] Date(s): 01/05/21 - 02/04/21 [facility] [address] [place] [id number] Allergies, Adverse Reactions, Alerts Substance Reaction Severity [...] [07/11/2018] [facility] 2Result Comment: [11/11/2015] given at [facility] [address] [place] [address] 3Result Comment: [07/11/2018] [facility] 5Admin Note: given at [facility] in [place], [place] 6Location History[facility] 7Admin Note: boostrix [...] mL, 11 Refills, Maintenance, 01/06/21 14:51:00 EDT, [place], [facility] #[id number], Partial fill upon patient request if the prescriptionis for a schedule II opioid drug., 2 sprays Nares,... Start Date: 01/06/21 Status: Ordered Colace sodium 100 mg oral capsule 100 mg, 1, capsule, By Mouth, 2 times a day, BUBBLE PACK PLEASE, # 180 capsule, Refills 1, Tot. Refills 1, Maintenance, 11/08/20 17:06:00 EDT, Route to Pharmacy Electronically, [facility] #[id number], 152.4, cm, 11/07/20 7:59:00 EDT, Height, 100.... Start Date: 11/08/20 Stop Date: 05/07/21 Status: Ordered escitalopram 20 mg oral tablet 1 tablet = 20 mg, By Mouth, Daily, # 30 tablet, 5 Refills, Maintenance, 07/22/20 9:23:00 EST, Tablet, [facility] #[id number], 153, cm, 07/22/20 9:04:00 EST, Height, 106, kg, 07/08/20 13:49:00 EST, Dry Weight Start Date: 07/22/20 Stop Date: 01/18/21 Status: Ordered ferrous sulfate 325 mg oral enteric coated tablet 325 mg, 1, tablet, By Mouth, 2 times a day, may take with food to minimize abdominal discomfort, # 180 tablet, Refills 1, Tot. Refills 1, Maintenance, 10/04/20 16:08:00 EST, Route to Pharmacy Electronically, [facility] #[id number], 150, cm, 09/26... Start Date: 10/04/20 Stop Date: 04/02/21 Status: Ordered gabapentin 100 mg oral capsule 200 mg, 2, capsule, By Mouth, 3 times a day, # 180 capsule, Refills 3, Tot. Refills 3, Maintenance,12/27/20 11:32:00 EDT, Route to Pharmacy Electronically, [facility] #[id number], Partial fill upon patient request if the prescription is for a sc... Start Date: 12/27/20 Status: Ordered levothyroxine 0.025 mg oral tablet 1 tablet, By Mouth, Daily, BUBBLE PACK PLEASE, # 30 tablet, 5 Refills, Maintenance, 07/22/20 9:24:00 EST, Tablet, [facility] #[id number], 153, cm, 07/22/20 9:04:00 EST, Height, 106, kg, 07/08/2013:49:00 EST, Dry Weight Start Date: 07/22/20 Stop Date: 01/18/21 Status: Ordered lisinopril 20 mg oral tablet 20 mg, 1, tablet, By Mouth, Daily, BUBBLE PACK PLEASE, # 30 tablet, Refills 5, Tot. Refills 5, Maintenance, 12/15/20 9:29:00 EDT, Route to Pharmacy Electronically, [facility] #[id number], 153, cm, 11/29/20 15:11:00 EDT, Height, 102.4, kg, ... Start Date: 12/15/20 Stop Date: 06/13/21 Status: Ordered LORazepam 1 mg oral tablet 1 tablet = 1 mg, By Mouth, Daily, PRN as needed for anxiety, # 30 tablet, 0 Refills, Maintenance, 12/15/20 9:28:00 EDT, Tablet, [facility] #[id number], 153, cm, 11/29/20 15:11:00 EDT, Height, 102.4, [...] 03/25/20 19:21:00 EDT, Route to Pharmacy Electronically, [facility] #[id number], 149.9, cm, 03/07/20 10:17:00 EDT, Height, 103.8, kg, 07... Start Date: 03/25/20 Stop Date: 10/21/20 Status: Ordered omeprazole 20 mg oral enteric coated capsule 1 capsule = 20 mg, By Mouth, 2 times a day, for 30 days, BUBBLE PACK PLEASE, # 60 capsule, 3 Refills, Hard Stop 02/21/21 9:19:00 EDT, 10/24/20 9:19:00 EDT, EC Capsule, [facility] #[id number], 149.9, cm, 06/14/20 14:58:00 EST, Height, 101, kg, 10/... Start Date: 10/24/20 Stop Date: 02/21/21 Status: Ordered omeprazole 20 mg oral enteric coated capsule 1 capsule = 20 mg, By Mouth, 2 times a day, BUBBLE PACK PLEASE, # 60 capsule, 3 Refills, Maintenance, 12/22/20 9:44:00 EDT, EC Capsule, [facility] #[id number], 153, cm, 11/29/20 15:11:00 EDT, Height, 102.4, kg, 11/13/20 18:51:00 EDT, Dry Weight Start Date: 12/22/20 Stop Date: 04/21/21 Status: Ordered ProAir HFA 90 mcg/inh inhalation aerosol 2 puffs, Inhalation, 4 times a day, PRN Wheezing/Shortness of Breath, # 2 each, 3 Refills, Maintenance, 11/08/20 17:08:00 EDT, Aerosol, [facility] #[id number], Partial fill upon patient request if the prescription is for a schedule II opioid drug... Start Date: 11/08/20 Stop Date: 03/08/21 Status: Ordered Singulair 10 mg oral tablet 10 mg, 1, tablet, By Mouth, Daily in PM, BUBBLE PACK PLEASE, # 30 tablet, Refills 5, Tot. Refills 5, Maintenance, 07/22/20 9:24:00 EST, Route to Pharmacy Electronically, [facility] #[id number], 153, cm, 07/22/20 9:04:00 EST, Height, 106, kg, 06/13... Start Date: 07/22/20 Stop Date: 01/18/21 Status: Ordered umeclidinium 62.5 mcg/inh inhalation powder 1 inhalation = 62.5 mcg, Inhalation, Every 24 hours, doses should be taken at least 24 hours apart,# 30 each, 11 Refills, Maintenance, 01/06/21 14:47:00 EDT, Powder, [facility] #[id number], Partial fill upon patient request if the [...] hands(Confirmed) Active *[facility] [phone] CARE MANAG ER HELEN RENO(Confirmed) Active Pulmonary [...]
--- OUTSIDE RECORDS SUMMARY | 2023-03-06 14:45 | XMS_ITS | Continuity of Care Document ---
Author Name Unknown Organization [facility] [place] Address [address] [place] [address]- Care Team Providers Care Machining Manager Name Role Phone Rj LITHOGRAPH OPERATOR, Winsome M Primary Care Physician Encounter [facility] Date(s): 01/18/22 - 02/17/22 [facility] [place] [address] [place] [address]- Allergies, Adverse Reactions, Alerts Substance Reaction Severity [...] sukhi 1Result Comment: [07/11/2018] [facility] 3Admin Note: given at [facility] in [place] 4[facility] Comment: [facility]07/11/2018[facility] 5Result Comment: [11/11/2015] given at [facility] [address] [place] [address] [phone] 6Location History: [facility] 7Admin Note: boostrix vis 12-28-2012 Medications albuterol [...] 01/19/22 19:16:00 EDT, Route to Pharmacy Electronically, [facility] #[id number], Partial fill upon patientrequest if the prescription is for a schedule II op... Start Date: 01/19/22 Status: Ordered escitalopram 20 mg oral tablet 1 tablet = 20 mg, By Mouth, Daily, # 90 tablet, 1 Refills, Maintenance, 11/29/21 7:27:00 EDT, Tablet, [facility] #[id number], 150, cm, 11/03/21 13:46:00 EDT, Height, 100.8, kg, 11/01/21 22:19:00EDT, Dry Weight Start Date: 11/29/21 Stop Date: 05/28/22 Status: Ordered furosemide 20 mg oral tablet 20 mg, 1, tablet, By Mouth, 2 times a day, # 180 tablet, Refills 1, Tot. Refills 1, Maintenance, 12/01/21 16:35:00 EDT, Route to Pharmacy Electronically, [facility] #[id number], Partial fill upon patient request if the prescription is for a sched... Start Date: 12/01/21 Stop Date: 05/30/22 Status: Ordered gabapentin 100 mg oral capsule 200 mg, 2, capsule, By Mouth, 3 times a day, 2 capsules to equal 200 mg three times a day., # 180 capsule, Refills 3, Tot. Refills 3, Maintenance, 12/05/21 20:30:00 EDT, Route to Pharmacy Electronically, [facility] #[id number], Partial fill upon... Start Date: 12/05/21 Status: [...] mL, 3 Refills, Maintenance, 11/29/21 21:45:00 EDT, [facility] #[id number], Partial fill upon patient request if the prescriptionis for a schedule II opioid drug., 150, cm, ... Start Date: 11/29/21 Status: Ordered levothyroxine 0.025 mg oral tablet 1 tablet, By Mouth, Daily, # 90 tablet, 1 Refills, Maintenance, 11/29/21 7:27:00 EDT, Tablet, [facility] #[id number], 150, cm, 11/03/21 13:46:00 EDT, Height, 100.8, [...] 3 Refills, Maintenance, 04/05/21 13:22:00 EDT, Tablet, [facility] #[id number], Part... Start Date: 04/05/21 Stop Date: 08/03/21 Status: Ordered NovoLOG FlexPen 100 units/mL injectable solution See Instructions, Subcutaneous Infusion 3 times a day before meals. Sliding scale:: 150-200 2 [id number] 4 UNITS 300-350 6 UNITS, # 3 mL, 3 Refills, Maintenance, 12/01/21 11:54:00 EDT, [facility] #[id number], Partial fill upon patient requ... Start Date: [...] 01/19/22 13:52:00 EDT, Route to Pharmacy Electronically, [facility] #[id number], Partial fill upon patient request... Start Date: [...] 10/14/21 18:18:00 EST, Route to Pharmacy Electronically, [facility] #[id number],148.4, cm, 10/05/21 10:50:00 EST, Height, 104.5, kg... Start Date: 10/14/21 Stop Date: 04/12/22 Status: Ordered spironolactone 100 mg oral tablet 100 mg, 1, tablet, By Mouth, Daily, # 90 tablet, Refills 1, Tot. Refills 1, Maintenance, 12/01/21 16:34:00 EDT, Route to Pharmacy Electronically, [facility] #[id number], Partial fill upon patient request if the [...] 11 Refills, Maintenance, 01/06/21 14:47:00 EDT, Powder, [facility] #[id number], Partial fill upon patient request if the [...] Active Numbness and tingling in hands(Confirmed) Active *[facility] [phone] CARE MANAG ER HELEN RENO(Confirmed) Active Hepatitis [...]
--- OUTSIDE RECORDS SUMMARY | 2023-03-06 14:45 | XMS_ITS | Continuity of Care Document ---
Author Name Unknown Organization [facility] Maik David [employer] [facility] Address [address] [place] [address]- Care Team Providers Care Snowblower Mechanic Name Role Phone Rj FULL STACK SOFTWARE DEVELOPER, Winsome Weiss Primary Care Physician [place] [facility] [place] 12[place] [facility] [employer] [address] [place], [place] [address] Attending Physician: Dayana Orlando Admitting Physician: AdmDayana nolan Referring Physician: Admtr, Wilian8 Allergies, Adverse Reactions, Alerts Substance Reaction Severity [...] sukhi 1Result Comment: [07/11/2018] Gwendolyn 2Location History: [facility] 3Admin Note: given at [facility] in [place] 4Result Comment: [07/11/2018] [facility] 5Result Comment: [11/11/2015] given at [facility] [address] [facility] [place] [address] [phone] 6Location History: [facility] 7Admin Note: [facility] vis 12-28-2012 Medications albuterol 0.083% inhalation solution 3 mL = 2.5 mg, Inhalation, Every 6 hours, PRN Wheezing/Shortness of Breath, # 60 each, 6 Refills, Maintenance, 10/29/14 10:00:25, Solution Start Date: 10/29/14 Status: Ordered escitalopram 20 mg oral tablet 1 tablet = 20 mg, By Mouth, Daily, # 90 tablet, 1 Refills, Maintenance, 11/29/21 7:27:00 EDT, Tablet, [facility] #[id number], 150, cm, 11/03/21 13:46:00 EDT, Height, 100.8, kg, 11/01/21 22:19:00EDT, Dry Weight Start Date: 11/29/21 Stop Date: 05/28/22 Status: Ordered furosemide 20 mg oral tablet 20 mg, 1, tablet, By Mouth, 2 times a day, # 180 tablet, Refills 1, Tot. Refills 1, Maintenance, 12/01/21 16:35:00 EDT, Route to Pharmacy Electronically, [facility] #[id number], Partial fill upon patient request if the [...] 12/05/21 20:30:00 EDT, Route to Pharmacy Electronically, [facility] #[id number], Partial fill upon... Start Date: 12/05/21 Status: Ordered gabapentin 100 mg oral capsule 200 mg, 2, capsule, By Mouth, 3 times a day, # 180 capsule, Refills 3, Tot. Refills 3, Maintenance,12/27/20 11:32:00 EDT, Route to Pharmacy Electronically, [facility] #[id number], Partial fill upon patient request if the prescription is for a sc... Start Date: 12/27/20 Status: Ordered isosorbide mononitrate 30 mg oral tablet, extended release 30 mg, 1, tablet, By Mouth, Daily in AM, # 30 tablet, Refills 3, Tot. Refills 3, Maintenance, 04/06/21 12:52:00 EDT, Route to Pharmacy Electronically, [facility] #[id number], Partial fill upon patient request if the prescription is for a schedule... Start Date: 04/06/21 Status: Ordered Lantus Solostar Pen 100 units/mL subcutaneous solution = 15 units, Subcutaneous Infusion, Daily, with evening meal, # 15 mL, 3 Refills, Maintenance, 11/29/21 21:45:00 EDT, [facility] #[id number], Partial fill upon patient request if the prescriptionis for a schedule II opioid drug., 150, cm, ... Start Date: 11/29/21 Status: Ordered levothyroxine 0.025 mg oral tablet 1 tablet, By Mouth, Daily, # 90 tablet, 1 Refills, Maintenance, 11/29/21 7:27:00 EDT, Tablet, [facility] #[id number], 150, cm, 11/03/21 13:46:00 EDT, Height, 100.8, kg, 11/01/21 22:19:00 EDT, Dry Weight Start Date: 11/29/21 Stop Date: 05/28/22 Status: Ordered LORazepam 0.5 mg oral tablet 1 tablet = 0.5 mg, By Mouth, Daily, PRN Anxiety, # 24 tablet, 0 Refills, Maintenance, 11/29/21 7:28:00 EDT, Tablet, [facility] #43048, 150, cm, 11/03/21 13:46:00 EDT, Height, 100.8, [...] 12/01/21 16:36:00 EDT, Route to Pharmacy Electronically, [facility] #[id number], Partial fill upon patientrequest if the prescription is for a schedule II op... Start Date: 12/01/21 Stop Date: 03/01/22 Status: Ordered nitroglycerin 0.4 mg sublingual tablet 1 tablet = 0.4 mg, Sublingual, Every 5 minutes, PRN as needed for chest pain, not to exceed 3 doses/15 min--if pain persists, seek medical attention, # 30 tablet, 3 Refills, Maintenance, 04/05/21 13:22:00 EDT, Tablet, [facility] #15736, Part... Start Date: 04/05/21 Stop Date: 08/03/21 Status: Ordered NovoLOG FlexPen 100 units/mL injectable solution See Instructions, Subcutaneous Infusion 3 times a day before meals. Sliding scale:: 150-200 2 [id number] 4 UNITS 300-350 6 UNITS, # 3 mL, 3 Refills, Maintenance, 12/01/21 11:54:00 EDT, [facility] #[id number], Partial fill upon patient requ... Start Date: [...] 10/14/21 18:18:00 EST, Route to Pharmacy Electronically, [facility] #[id number],148.4, cm, 10/05/21 10:50:00 EST, Height, 104.5, kg... Start Date: 10/14/21 Stop Date: 04/12/22 Status: Ordered spironolactone 100 mg oral tablet 100 mg, 1, tablet, By Mouth, Daily, # 90 tablet, Refills 1, Tot. Refills 1, Maintenance, 12/01/21 16:34:00 EDT, Route to Pharmacy Electronically, [facility] #[id number], Partial fill upon patient request if the prescription is for a schedule II o... Start Date: 12/01/21 Stop Date: 05/30/22 Status: Ordered umeclidinium 62.5 mcg/inh inhalation powder 1 inhalation = 62.5 mcg, Inhalation, Every 24 hours, doses should be taken at least 24 hours apart,# 30 each, 11 Refills, Maintenance, 01/06/21 14:47:00 EDT, Powder, [facility] #[id number], Partial fill upon patient request if the [...] *[facility] [phone] CARE MANAG ER HELEN ROWDY(Confirmed) Active Hepatitis [...]
--- OUTSIDE RECORDS SUMMARY | 2023-03-06 14:45 | XMS_ITS | Continuity of Care Document ---
Author Name Unknown Organization [facility] Address [address] [place] [address]- Care Team Providers Care Vehicle Refinisher Name Role Phone Rj HAMILTON, Winsome Weiss Primary Care Physician Encounter [facility] Date(s): 05/30/20 - 06/06/20 [facility] [address] [place] [id number]- Attending Physician: Winsome De La Rosa NP Referring Physician: Manny Chiu MD Allergies, Adverse Reactions, Alerts Substance Reaction [...] [07/11/2018] [facility] 2Result Comment: [11/11/2015] given at [facility] [address] [place] [address] 3Result Comment: [07/11/2018] [facility] 5Admin Note: given at [facility] in [place], [place] 6Location History[facility] 7Admin Note: boostrix [...] 03/15/20 14:44:00 EDT, Route to Pharmacy Electronically, [facility] #[id number], 149.9, cm, 0... Start Date: 03/15/20 Stop Date: 09/11/20 Status: Ordered Colace sodium 100 mg oral capsule 100 mg, 1, capsule, By Mouth, 2 times a day, BUBBLE PACK PLEASE, # 180 capsule, Refills 1, Tot. Refills 1, Maintenance, 04/18/20 14:37:00 EDT, Route to Pharmacy Electronically, [facility] #[id number], 149.9, cm, 03/07/20 10:17:00 EDT, Height, 103... [...] 5 Refills, Maintenance, 04/27/20 9:19:00 EDT, Tablet, [facility] #[id number], 149.9, cm, 04/27/20 9:00:00 EDT, Height, 103.8, kg, 03/07/20 10:17:00 EDT, Dry Weight Start Date: 04/27/20 Stop Date: 10/24/20 Status: Ordered FeroSul 325 mg oral tablet 1 tablet = 325 mg, By Mouth, 2 times a day, BUBBLE PACK PLEASE, # 60 tablet, 5 Refills, Soft Stop, 04/18/20 14:38:00 EDT, [facility] #05410, 149.9, cm, 03/07/20 10:17:00 EDT, Height, 103.8,kg, 03/07/20 10:17:00 EDT, Dry Weight Start Date: 04/18/20 Stop Date: 10/15/20 Status: Ordered ferrous sulfate 325 mg oral enteric coated tablet 325 mg, 1, tablet, By Mouth, 2 times a day, # 180 tablet, Refills 1, Tot. Refills 1, Maintenance, 12/24/18 14:50:03 EDT, [id number] Start Date: 12/24/18 Stop Date: 06/22/19 Status: Ordered Flovent HFA 220 mcg/inh inhalation aerosol 2 puffs, Inhalation, 2 times a day, # 1 each, 6 Refills, Maintenance, 05/30/20 10:57:00 EDT, Aerosol, [facility] #[id number], 149.9, cm, 05/30/20 10:53:00 EDT, Height, 103.8, kg, 03/07/20 10:17:00 EDT, Dry Weight Start Date: 05/30/20 Stop Date: 12/26/20 Status: Ordered gabapentin 100 mg oral capsule 100 mg, 1, capsule, By Mouth, 2 times a day, BUBBLE PACK PLEASE, # 60 capsule, Refills 3, Tot. Refills 3, Maintenance, 05/30/20 11:10:00 EDT, Route to Pharmacy Electronically, [facility] #[id number], 149.9, cm, 05/30/20 10:53:00 EDT, Height, 103.... Start Date: 05/30/20 Stop Date: 09/27/20 Status: Ordered levothyroxine 0.025 mg oral tablet 1 tablet, By Mouth, Daily, BUBBLE PACK PLEASE, # 30 tablet, 5 Refills, Maintenance, 04/27/20 9:20:00 EDT, Tablet, [facility] #[id number], 149.9, cm, 04/27/20 9:00:00 EDT, Height, 103.8, kg, 03/07/20 10:17:00 EDT, Dry Weight Start Date: 04/27/20 Stop Date: 10/24/20 Status: Ordered lisinopril 20 mg oral tablet 20 mg, 1, tablet, By Mouth, Daily, BUBBLE PACK PLEASE, # 30 tablet, Refills 5, Tot. Refills 5, Maintenance, 04/27/20 9:21:00 EDT, Route to Pharmacy Electronically, [facility] #[id number], 149.9,cm, 04/27/20 9:00:00 EDT, Height, 103.8, kg, ... Start Date: 04/27/20 Stop Date: 10/24/20 Status: Ordered LORazepam 1 mg oral tablet 1 tablet = 1 mg, By Mouth, Daily, PRN as needed for anxiety, # 30 tablet, 0 Refills, Maintenance, 05/30/20 10:55:00 EDT, Tablet, [facility] #[id number], 149.9, cm, 05/30/20 10:53:00 EDT, Height,103.8, kg, 03/07/20 10:17:00 EDT, Dry Weight Start Date: 05/30/20 Stop Date: 06/29/20 Status: Ordered nortriptyline 50 mg oral capsule 50 mg, 1, capsule, By Mouth, Daily, BUBBLE PACK PLEASE, # 30 capsule, Refills 6, Tot. Refills 6, Maintenance, 03/25/20 19:21:00 EDT, Route to Pharmacy Electronically, [facility] #[id number], 149.9, cm, 03/07/20 10:17:00 EDT, Height, 103.8, kg, 07... Start Date: 03/25/20 Stop Date: 10/21/20 Status: Ordered nystatin topical 726266 u/gm ointment 1 application, Topically, 3 times [...] Refills, Maintenance, 04/27/20 9:19:00 EDT, EC Capsule, [facility] #[id number], 149.9, cm, 04/27/20 9:00:00 EDT, Height, 103.8, kg, 03/07/20 10:17:00 EDT, Dry Weight Start Date: 04/27/20 Stop Date: 10/24/20 Status: Ordered Singulair 10 mg oral tablet 10 mg, 1, tablet, By Mouth, Daily in PM, BUBBLE PACK PLEASE, # 30 tablet, Refills 5, Tot. Refills 5, Maintenance, 03/02/20 16:02:00 EDT, Route to Pharmacy Electronically, [facility] #[id number],149.9, cm, 03/02/20 10:16:00 EDT, Height, 94.4, kg,... [...] and tingling in hands(Confirmed) Active *[facility] [phone] CARE MANAG ER HELENLUCITA RENO(Confirmed) Active Rib pain on left side(Confirmed) Active Pain in right shoulder(Confirmed) Active Urge urinary incontinence(Confirmed) Active 1tx with apc today due to bleeding. 2normal PFT's 11/22/14 r/o COPD 3childhood onset 4possibly Type III 53+ 6s/p bilateral salpingo-oophrectomy Vital Signs Most recent to oldest [Reference Range]: 1 2 Height 149.9 cm (05/30/20 10:53 AM) 149.9 cm (05/30/20 10:13 AM) Weight 103.8 kg (05/30/20 10:13 AM) Oxygen Saturation [94-100 %] 100 % (05/30/20 10:13 AM) Pulse Rate [55-90 bpm] 88 bpm (05/30/20 10:13 AM) Body Mass Index [18.5-24.99] 46.19 *>HHI* (05/30/20 10:13 AM) Blood Pressure [90-138/55-84 mm Hg] 138/ 62mm Hg (05/30/20 10:53 AM) 168/72mm Hg *H* (05/30/20 10:13 AM) Temperature [96.8-100.4 DegF] 97.0 DegF (05/30/20 10:13 AM) Liters per Minute 0 L/min (05/30/20 10:13 AM) Mode of Delivery (Oxygen) Room air (05/30/20 10:13 AM) Blood pressure sites Arm, left (05/30/20 10:13 AM) Temperature Route Temporal (05/30/20 10:13 AM) Weight Obtained Via Standing scale (05/30/20 10:13 AM) Social History Social History Type Response Smoking Status Former smoker; Tobac co user in household: No; Type: Cigarettes; Tobacco use times per day: up to 2 ppd; Started at age: 16; Stopped at age: 48; entered on: 11/08/14 Sex
--- OUTSIDE RECORDS SUMMARY | 2023-03-06 14:45 | XMS_ITS | Continuity of Care Document ---
Author Name Unknown Organization [facility] Address [address] [place] [address]- Care Team Providers Care Laboratory Scientist Name Role Phone Rj WEATHERIZATION DIRECTOR, Winsome Weiss Primary Care Physician [phone] Encounter [facility] Date(s): 03/24/20 - 04/23/20 [facility] [address] [place] [address]- Allergies, Adverse Reactions, Alerts Substance Reaction Severity [...] [07/11/2018] Gwendolyn 2Result Comment: [11/11/2015] given at [facility] [address] [place] [address] [phone] 3Result Comment: [07/11/2018] Gwendolyn 4[facility] 5Admin Note: given at [facility] in [place], [place] 6Location History: [facility] 7Admin Note: boostrix [...] 03/15/20 14:44:00 EDT, Route to Pharmacy Electronically, [facility] #[id number], 149.9, cm, 0... Start Date: 03/15/20 Stop Date: 09/11/20 Status: Ordered Colace sodium 100 mg oral capsule 100 mg, 1, capsule, By Mouth, 2 times a day, BUBBLE PACK PLEASE, # 180 capsule, Refills 1, Tot. Refills 1, Maintenance, 04/18/20 14:37:00 EDT, Route to Pharmacy Electronically, [facility] #[id number], 149.9, cm, 03/07/20 10:17:00 EDT, Height, 103... [...] 2 Refills, Maintenance, 02/23/20 16:28:00 EDT, Tablet, [facility] #[id number], 149.9, cm, 02/23/20 13:20:00 EDT, Height, 94.4, kg, 05/21/19 10:46:00 EDT, Dry Weight Start Date: 02/23/20 Stop Date: 05/23/20 Status: Ordered FeroSul 325 mg oral tablet 1 tablet = 325 mg, By Mouth, 2 times a day, BUBBLE PACK PLEASE, # 60 tablet, 5 Refills, Soft Stop, 04/18/20 14:38:00 EDT, [facility] #[id number], 149.9, cm, 03/07/20 10:17:00 EDT, Height, 103.8,kg, 03/07/20 10:17:00 EDT, Dry Weight Start Date: 04/18/20 Stop Date: 10/15/20 Status: Ordered ferrous sulfate 325 mg oral enteric coated tablet 325 mg, 1, tablet, By Mouth, 2 times a day, # 180 tablet, Refills 1, Tot. Refills 1, Maintenance, 12/24/18 14:50:03 EDT, [id number] Start Date: 12/24/18 Stop Date: 06/22/19 Status: Ordered Flovent HFA 220 mcg/inh inhalation aerosol 2 puffs, Inhalation, 2 times a day, # 1 each, 6 Refills, Maintenance, 09/24/17 16:24:21, Aerosol Start Date: 09/24/17 Stop Date: 04/22/18 Status: Ordered gabapentin 100 mg oral capsule 100 mg, 1, capsule, By Mouth, 2 times a day, BUBBLE PACK PLEASE, # 60 capsule, Refills 1, Tot. Refills 1, Maintenance, 04/12/20 14:39:00 EDT, Route to Pharmacy Electronically, [facility] #[id number], 149.9, cm, 03/31/20 15:03:00 EDT, Height, 103.... Start Date: 04/12/20 Stop Date: 06/11/20 Status: Ordered levothyroxine 0.025 mg oral tablet 1 tablet, By Mouth, Daily, BUBBLE PACK PLEASE, # 30 tablet, 5 Refills, Maintenance, 10/21/19 14:40:00 EDT, Tablet, [facility] #[id number], 149.9, cm, 08/10/19 9:46:00 EST, Height, 94.4, kg, 05/21/19 10:46:00 EDT, Dry Weight Start Date: 10/21/19 Stop Date: 04/18/20 Status: Ordered lisinopril 20 mg oral tablet 20 mg, 1, tablet, By Mouth, Daily, BUBBLE PACK PLEASE, # 30 tablet, Refills 5, Tot. Refills 5, Maintenance, 10/21/19 14:40:00 EDT, Route to Pharmacy Electronically, [facility] #[id number], 149.9, cm, 08/10/19 9:46:00 EST, Height, 94.4, kg, ... Start Date: 10/21/19 Stop Date: 04/18/20 Status: Ordered LORazepam 1 mg oral tablet 1 tablet = 1 mg, By Mouth, Daily, PRN as needed for anxiety, # 30 tablet, 0 Refills, Maintenance, 04/12/20 14:39:00 EDT, Tablet, [facility] #[id number], 149.9, cm, 03/31/20 15:03:00 EDT, Height,103.8, kg, 03/07/20 10:17:00 EDT, Dry Weight Start Date: 04/12/20 Stop Date: 05/12/20 Status: Ordered nortriptyline 50 mg oral capsule 50 mg, 1, capsule, By Mouth, Daily, BUBBLE PACK PLEASE, # 30 capsule, Refills 6, Tot. Refills 6, Maintenance, 03/25/20 19:21:00 EDT, Route to Pharmacy Electronically, [facility] #[id number], 149.9, cm, 03/07/20 10:17:00 EDT, Height, 103.8, kg, 07... Start Date: 03/25/20 Stop Date: 10/21/20 Status: Ordered nystatin topical 615022 u/gm ointment 1 application, Topically, 3 times [...] Refills, Maintenance, 10/21/19 14:42:00 EDT, EC Capsule, [facility] #[id number], 149.9, cm, 08/10/19 9:46:00 EST, Height, 94.4, kg, 05/21/19 10:46:00 EDT, Dry Weight Start Date: 10/21/19 Stop Date: 04/18/20 Status: Ordered Singulair 10 mg oral tablet 10 mg, 1, tablet, By Mouth, Daily in PM, BUBBLE PACK PLEASE, # 30 tablet, Refills 5, Tot. Refills 5, Maintenance, 03/02/20 16:02:00 EDT, Route to Pharmacy Electronically, [facility] #63784,149.9, cm, 03/02/20 10:16:00 EDT, Height, 94.4, kg,... [...] in hands(Confirmed) Active *[facility] [phone] CARE MANAG ER HELEN RENO(Confirmed) Active Rib [...]
--- OUTSIDE RECORDS SUMMARY | 2023-03-06 14:45 | XMS_ITS | Continuity of Care Document ---
Author Name Unknown Organization [facility] Address [address] [place] [address]- Care Team Providers Care Machine Inspector Name Role Phone Rj HAMILTON, Winsome Weiss Primary Care Physician [phone] Encounter [facility] Date(s): 06/17/20 - 09/08/20 [facility] [address] [place] [address]- Attending Physician: Kareem LE, Samantha Whitaker Referring Physician: Winsome De La Rosa NP [...] [07/11/2018] [facility] 2Result Comment: [11/11/2015] given at [facility] [address] [place] [address] [phone] 3Result Comment: [07/11/2018] [facility] 5Admin Note: given at [facility] in [place], [place] 6Location History[facility] 7Admin Note: boostrix [...] 06/21/20 16:00:00 EST, Route to Pharmacy Electronically, [facility] #[id number], 149.9, cm, 06/21/20 13:54:00 EST, Height, 103.8, [...] 5 Refills, Maintenance, 07/22/20 9:23:00 EST, Tablet, [facility] #[id number], 153, cm, 07/22/20 9:04:00 EST, Height, 106, kg, 07/08/20 13:49:00 EST, Dry Weight Start Date: 07/22/20 Stop Date: 01/18/21 Status: Ordered ferrous sulfate 325 mg oral enteric coated tablet 325 mg, 1, tablet, By Mouth, 2 times a day, # 180 tablet, Refills 1, Tot. Refills 1, Maintenance, 12/24/18 14:50:03 EDT, Route to Pharmacy Electronically, [id number] Start Date: 12/24/18 Stop Date: 06/22/19 Status: Ordered Flovent HFA 220 mcg/inh inhalation aerosol 2 puffs, Inhalation, 2 times a day, # 1 each, 6 Refills, Maintenance, 05/30/20 10:57:00 EDT, Aerosol, [facility] #[id number], 149.9, cm, 05/30/20 10:53:00 EDT, Height, 103.8, kg, 03/07/20 10:17:00 EDT, Dry Weight Start Date: 05/30/20 Stop Date: 12/26/20 Status: Ordered gabapentin 100 mg oral capsule 100 mg, 1, capsule, By Mouth, 2 times a day, BUBBLE PACK PLEASE, # 60 capsule, Refills 3, Tot. Refills 3, Maintenance, 07/22/20 9:24:00 EST, Route to Pharmacy Electronically, [facility] #[id number], 153, cm, 07/22/20 9:04:00 EST, Height, 106, kg,... Start Date: 07/22/20 Stop Date: 11/19/20 Status: Ordered levothyroxine 0.025 mg oral tablet 1 tablet, By Mouth, Daily, BUBBLE PACK PLEASE, # 30 tablet, 5 Refills, Maintenance, 07/22/20 9:24:00 EST, Tablet, [facility] #[id number], 153, cm, 07/22/20 9:04:00 EST, Height, 106, kg, 07/08/2013:49:00 EST, Dry Weight Start Date: 07/22/20 Stop Date: 01/18/21 Status: Ordered lisinopril 20 mg oral tablet 20 mg, 1, tablet, By Mouth, Daily, BUBBLE PACK PLEASE, # 30 tablet, Refills 5, Tot. Refills 5, Maintenance, 04/27/20 9:21:00 EDT, Route to Pharmacy Electronically, [facility] #[id number], 149.9,cm, 04/27/20 9:00:00 EDT, Height, 103.8, kg, 03/07/... Start Date: 04/27/20 Stop Date: 10/24/20 Status: Ordered LORazepam 1 mg oral tablet 1 tablet = 1 mg, By Mouth, Daily, PRN as needed for anxiety, # 30 tablet, 0 Refills, Maintenance, 07/22/20 9:23:00 EST, Tablet, [facility] #[id number], 153, cm, 07/22/20 9:04:00 EST, Height, 106, kg, 07/08/20 13:49:00 EST, Dry Weight Start Date: 07/22/20 Stop Date: 08/21/20 Status: Ordered nortriptyline 50 mg oral capsule 50 mg, 1, capsule, By Mouth, Daily, BUBBLE PACK PLEASE, # 30 capsule, Refills 6, Tot. Refills 6, Maintenance, 03/25/20 19:21:00 EDT, Route to Pharmacy Electronically, [facility] #[id number], 149.9, cm, 03/07/20 10:17:00 EDT, Height, 103.8, kg, 07... Start Date: 03/25/20 Stop Date: 10/21/20 Status: Ordered nystatin topical [id number] u/gm ointment 1 application, Topically, 3 times [...] Refills, Maintenance, 10/24/20 9:19:00 EDT, EC Capsule, [facility] #[id number], 149.9, cm, 06/14/20 14:58:00 EST, Height, 101, kg, 06/07/20 10:02:00 EDT, Dry Weight Start Date: 10/24/20 Stop Date: 02/21/21 Status: Ordered Singulair 10 mg oral tablet 10 mg, 1, tablet, By Mouth, Daily in PM, BUBBLE PACK PLEASE, # 30 tablet, Refills 5, Tot. Refills 5, Maintenance, 07/22/20 9:24:00 EST, Route to Pharmacy Electronically, [facility] #02205, 153, cm, 07/22/20 9:04:00 EST, Height, 106, [...] and tingling in hands(Confirmed) Active *[facility] [phone] CARE MANAG ER HELEN RENO(Confirmed) Active Rib [...]
--- OUTSIDE RECORDS SUMMARY | 2023-03-06 14:45 | XMS_ITS | Continuity of Care Document ---
Author Name Unknown Organization [facility] Address [address] [place] [address]- Care Team Providers Care Segmental Paver Installer Name Role Phone Rj SENIOR CONSTRUCTION ESTIMATOR, Winsome Weiss Primary Care Physician [phone] Encounter [facility] [id number] Date(s): 02/17/21 - 03/19/21 [facility] [address] [facility] [place] [address]- Attending Physician: Admtr, Wilian8 Admitting Physician: Admtr, [...] [07/11/2018] [facility] 2Result Comment: [11/11/2015] given at [facility] [address] [place] [address] [phone] 3Result Comment: [07/11/2018] [facility] 5Admin Note: given at [facility] in [place], [place] 6Location History: [facility] 7Admin Note: boostrix [...] mL, 11 Refills, Maintenance, 01/06/21 14:51:00 EDT, [place], [facility] #[id number], Partial fill upon patient request if the prescriptionis for a schedule II opioid drug., 2 sprays Nares,... Start Date: 01/06/21 Status: Ordered escitalopram 20 mg oral tablet 1 tablet = 20 mg, By Mouth, Daily, # 90 tablet, 1 Refills, Maintenance, 02/14/21 7:29:00 EDT, Tablet, [facility] #[id number], 153, cm, 02/14/21 7:06:00 EDT, Height, 102.4, kg, 11/13/20 18:51:00 EDT, Dry Weight Start Date: 02/14/21 Stop Date: 08/13/21 Status: Ordered ferrous sulfate 325 mg oral enteric coated tablet 325 mg, 1, tablet, By Mouth, 2 times a day, may take with food to minimize abdominal discomfort, # 180 tablet, Refills 1, Tot. Refills 1, Maintenance, 10/04/20 16:08:00 EST, Route to Pharmacy Electronically, [facility] #[id number], 150, cm, 09/26... Start Date: 10/04/20 Stop Date: 04/02/21 Status: Ordered Fish Oil By Mouth, 0 Refills, Maintenance, 02/14/21 7:13:00 EDT, Partial fill upon patient request if the prescription is for a schedule II opioid drug. Start Date: 02/14/21 Status: Ordered gabapentin 100 mg oral capsule 200 mg, 2, capsule, By Mouth, 3 times a day, # 180 capsule, Refills 3, Tot. Refills 3, Maintenance,12/27/20 11:32:00 EDT, Route to Pharmacy Electronically, [facility] #[id number], Partial fill upon patient request if the prescription is for a sc... Start Date: 12/27/20 Status: Ordered levothyroxine 0.025 mg oral tablet 1 tablet, By Mouth, Daily, BUBBLE PACK PLEASE, # 90 tablet, 1 Refills, Maintenance, 02/14/21 7:27:00 EDT, Tablet, [facility] #[id number], 153, cm, 02/14/21 7:06:00 EDT, Height, 102.4, kg, 11/13/20 18:51:00 EDT, Dry Weight Start Date: 02/14/21 Stop Date: 08/13/21 Status: Ordered lisinopril 20 mg oral tablet 20 mg, 1, tablet, By Mouth, Daily, BUBBLE PACK PLEASE, # 30 tablet, Refills 5, Tot. Refills 5, Maintenance, 12/15/20 9:29:00 EDT, Route to Pharmacy Electronically, [facility] #[id number], 153, cm, 11/29/20 15:11:00 EDT, Height, 102.4, kg, ... Start Date: 12/15/20 Stop Date: 06/13/21 Status: Ordered LORazepam 1 mg oral tablet 1 tablet = 1 mg, By Mouth, Daily, PRN as needed for anxiety, # 30 tablet, 0 Refills, Maintenance, 02/14/21 7:25:00 EDT, Tablet, [facility] #[id number], 153, cm, 02/14/21 7:06:00 EDT, Height, 102.4, kg, 11/13/20 18:51:00 EDT, Dry Weight Start Date: 02/14/21 Stop Date: 03/16/21 Status: Ordered Multivitamin Daily, 0 Refills, Maintenance, [...] 02/14/21 7:26:00 EDT, Route to Pharmacy Electronically, [facility] #[id number], 153, cm, 02/14/21 7:06:00 EDT, Height, 102.4, kg, 11/13/20 18:51:00 EDT, Dry... Start Date: 02/14/21 Stop Date: 08/13/21 Status: Ordered omeprazole 20 mg oral enteric coated capsule 1 capsule = 20 mg, By Mouth, 2 times a day, BUBBLE PACK PLEASE, # 60 capsule, 3 Refills, Maintenance, 12/22/20 9:44:00 EDT, EC Capsule, [facility] #[id number], 153, cm, 11/29/20 15:11:00 EDT, Height, 102.4, kg, 11/13/20 18:51:00 EDT, Dry Weight Start Date: 12/22/20 Stop Date: 04/21/21 Status: Ordered ProAir HFA 90 mcg/inh inhalation aerosol 2 puffs, Inhalation, 4 times a day, PRN Wheezing/Shortness of Breath, # 2 each, 3 Refills, Maintenance, 11/08/20 17:08:00 EDT, Aerosol, [facility] #[id number], Partial fill upon patient request if the prescription is for a schedule II opioid drug... Start Date: 11/08/20 Stop Date: 03/08/21 Status: Ordered Singulair 10 mg oral tablet 10 mg, 1, tablet, By Mouth, Daily in PM, BUBBLE PACK PLEASE, # 30 tablet, Refills 5, Tot. Refills 5, Maintenance, 03/09/21 15:06:00 EDT, Route to Pharmacy Electronically, [facility] #[id number],148.4, cm, 02/16/21 15:09:00 EDT, Height, 97.6, kg,... Start Date: 03/09/21 Stop Date: 09/05/21 Status: Ordered umeclidinium 62.5 mcg/inh inhalation powder 1 inhalation = 62.5 mcg, Inhalation, Every 24 hours, doses should be taken at least 24 hours apart,# 30 each, 11 Refills, Maintenance, 01/06/21 14:47:00 EDT, Powder, [facility] #[id number], Partial fill upon patient request if the [...] tingling in hands(Confirmed) Active *[facility] [phone] CARE MANAG ER HELEN RENO(Confirmed) Active Pulmonary [...]
--- OUTSIDE RECORDS SUMMARY | 2023-03-06 14:45 | XMS_ITS | Continuity of Care Document ---
Author Name Unknown Organization [facility] Address [address], [address] [place] [address]- Care Team Providers Care Studio Artist Name Role Phone Rj HAMILTON, Winsome Weiss Primary Care Physician Encounter [facility] Date(s): 06/25/19 - 10/23/19 [facility] [employer] [address], [address] [place] [address]- Attending Physician: Radha Gross MD Admitting Physician: [...] [07/11/2018] [facility] 2Result Comment: [11/11/2015] given at [facility] [address] [place] [address] [phone] 3Result Comment: [07/11/2018] [facility] 5Admin Note: given at [facility] in [place], [place] 6Location History: [facility] 7Admin Note: boostrix [...] 10/21/19 14:37:00 EDT, Route to Pharmacy Electronically, [facility] #[id number], 149.9, cm, 08/10/19 9:46:00 EST, Height, 94.4... [...] 6 Refills, Maintenance, 10/21/19 14:37:00 EDT, Tablet, [facility] #[id number], 149.9, cm, 08/10/19 9:46:00 EST, Height, 94.4, kg, 05/21/19 10:46:00 EDT, Dry Weight Start Date: 10/21/19 Status: Ordered FeroSul 325 mg oral tablet 1 tablet = 325 mg, By Mouth, 2 times a day, BUBBLE PACK PLEASE, # 60 tablet, 5 Refills, Soft Stop, 10/21/19 14:38:00 EDT, [facility] #[id number], 149.9, cm, 08/10/19 9:46:00 EST, Height, 94.4, kg, 05/21/19 10:46:00 EDT, Dry Weight Start Date: 10/21/19 Stop Date: 04/18/20 Status: Ordered ferrous sulfate 325 mg oral enteric coated tablet 325 mg, 1, tablet, By Mouth, 2 times a day, # 180 tablet, Refills 1, Tot. Refills 1, Maintenance, 12/24/18 14:50:03 EDT, [email or web address] Start Date: 12/24/18 Stop Date: 06/22/19 [...] 10/21/19 14:39:00 EDT, Route to Pharmacy Electronically, [facility] #[id number], 149.9, cm, 08/10/19 9:46:00 EST, Height, 94.4,... Start Date: 10/21/19 Stop Date: 11/20/19 Status: Ordered levothyroxine 0.025 mg oral tablet 1 tablet, By Mouth, Daily, BUBBLE PACK PLEASE, # 30 tablet, 5 Refills, Maintenance, 10/21/19 14:40:00 EDT, Tablet, [facility] #[id number], 149.9, cm, 08/10/19 9:46:00 EST, Height, 94.4, kg, 05/21/19 10:46:00 EDT, Dry Weight Start Date: 10/21/19 Stop Date: 04/18/20 Status: Ordered lisinopril 20 mg oral tablet 20 mg, 1, tablet, By Mouth, Daily, BUBBLE PACK PLEASE, # 30 tablet, Refills 5, Tot. Refills 5, Maintenance, 10/21/19 14:40:00 EDT, Route to Pharmacy Electronically, [facility] #[id number], 149.9, cm, 08/10/19 9:46:00 EST, Height, 94.4, kg, ... Start Date: 10/21/19 Stop Date: 04/18/20 Status: Ordered LORazepam 1 mg oral tablet 1 tablet = 1 mg, By Mouth, Daily, PRN as needed for anxiety, # 30 tablet, 0 Refills, Maintenance, 10/14/19 12:12:00 EST, Tablet, [facility] #[id number], 149.9, cm, 08/10/19 9:46:00 EST, Height, 94.4, kg, 05/21/19 10:46:00 EDT, Dry Weight Start Date: 10/14/19 Stop Date: 11/13/19 Status: Ordered nortriptyline 50 mg oral capsule 50 mg, 1, capsule, By Mouth, Daily, BUBBLE PACK PLEASE, # 30 capsule, Refills 0, Tot. Refills 0, Maintenance, 10/21/19 14:42:00 EDT, Route to Pharmacy Electronically, [facility] #[id number], 149.9, cm, 08/10/19 9:46:00 EST, Height, 94.4, kg, 05/12... Start Date: 10/21/19 Stop Date: 11/20/19 Status: Ordered nystatin topical [id number] u/gm ointment 1 application, Topically, 3 times [...] Refills, Maintenance, 10/21/19 14:42:00 EDT, EC Capsule, [facility] #[id number], 149.9, cm, 08/10/19 9:46:00 EST, Height, 94.4, kg, 05/21/19 10:46:00 EDT, Dry Weight Start Date: 10/21/19 Stop Date: 04/18/20 Status: Ordered Singulair 10 mg oral tablet 10 mg, 1, tablet, By Mouth, Daily in PM, BUBBLE PACK PLEASE, # 30 tablet, Refills 5, Tot. Refills 5, Maintenance, 10/21/19 14:41:00 EDT, [id number],149.9, cm, 08/10/19 9:46:00 EST, Height, 94.4, kg,... [...] Active Mite allergy(Confirmed) 5 11/08/14 Active Hypertension(Confirmed) 3/18/13 Active Hypothyroidism(Confirmed) Active Impacted cerumen of both ears(Confirmed) Active IFG (impaired fasting glucose)(Confirmed) Active Fecal incontinence(Confirmed) Active Poor conditioning(Confirmed) Active Lumbar strain(Confirmed) Active Anxiety and depression(Confirmed) Active Mixed incontinence(Confirmed) Active Morbid obesity(Confirmed) Active Ovarian tumor of borderline malignancy(Confirmed) 6 Active Osteoporosis(Confirmed) Active Pancytopenia(Confirmed) 10/27/14 Active Numbness and tingling in hands(Confirmed) Active *[facility] [phone] CARE MANAG ER HELEN MGJUAN LUIS(Confirmed) Active [...]
--- OUTSIDE RECORDS SUMMARY | 2023-03-06 14:45 | XMS_ITS | Continuity of Care Document ---
Author Name Unknown Organization [facility] Address [address] [place] [address]- Care Team Providers Care Companion Name Role Phone Rj CHIEF PSYCHOLOGIST, Winsome M Primary Care Physician Encounter [facility] Date(s): 02/22/21 - 06/22/21 [facility] [address] [place] [address]- Attending Physician: Rossy Mcclure DO Allergies, Adverse Reactions, Alerts Substance Reaction [...] [07/11/2018] [facility] 2Result Comment: [11/11/2015] given at [facility] [address] [place] [address] [phone] 3Result Comment: [07/11/2018] [facility] 5Admin Note: given at [facility] in [place], [place] 6[facility] History[facility] 7Admin Note: boostrix [...] mL, 11 Refills, Maintenance, 01/06/21 14:51:00 EDT, [place], [facility] #[id number], Partial fill upon patient request if the prescriptionis for a schedule II opioid drug., 2 sprays Nares,... Start Date: 01/06/21 Status: Ordered clopidogrel 75 mg oral tablet 75 mg, 1, tablet, By Mouth, Daily, # 30 tablet, Refills 3, Tot. Refills 3, Maintenance, 04/06/21 16:33:00 EDT, Route to Pharmacy Electronically, [facility] #[id number], Partial fill upon patientrequest if the prescription is for a schedule II op... Start Date: 04/06/21 Status: Ordered dicyclomine 10 mg oral capsule 1 capsule = 10 mg, By Mouth, 4 times a day, PRN Pain , Moderate, # 28 capsule, 0 Refills, Maintenance, 05/11/21 15:51:00 EDT, Capsule, [facility] #[id number], Partial fill upon patient request if the prescription is for a schedule II opioid drug.... Start Date: 05/11/21 Stop Date: 05/18/21 Status: Ordered escitalopram 20 mg oral tablet 1 tablet = 20 mg, By Mouth, Daily, # 90 tablet, 1 Refills, Maintenance, 02/14/21 7:29:00 EDT, Tablet, [facility] #[id number], 153, cm, 02/14/21 7:06:00 EDT, Height, 102.4, kg, 11/13/20 18:51:00 EDT, Dry Weight Start Date: 02/14/21 Stop Date: 08/13/21 Status: Ordered ferrous sulfate 325 mg oral enteric coated tablet 325 mg, 1, tablet, By Mouth, 2 times a day, may take with food to minimize abdominal discomfort, # 180 tablet, Refills 1, Tot. Refills 1, Maintenance, 05/02/21 8:25:00 EDT, Route to Pharmacy Electronically, [facility] #[id number], 148.4, cm, ... Start Date: 05/02/21 Stop Date: 10/29/21 Status: [...] Maintenance,12/27/20 11:32:00 EDT, Route to Pharmacy Electronically, [facility] #[id number], Partial fill upon patient request if the prescription is for a sc... Start Date: 12/27/20 Status: Ordered isosorbide mononitrate 30 mg oral tablet, extended release 30 mg, 1, tablet, By Mouth, Daily in AM, # 30 tablet, Refills 3, Tot. Refills 3, Maintenance, 04/05/21 13:22:00 EDT, Route to Pharmacy Electronically, [facility] #[id number], Partial fill upon patient request if the prescription is for a schedule... Start Date: 04/05/21 Stop Date: 08/03/21 Status: Ordered isosorbide mononitrate 30 mg oral tablet, extended release 30 mg, 1, tablet, By Mouth, Daily in AM, # 30 tablet, Refills 3, Tot. Refills 3, Maintenance, 04/06/21 12:52:00 EDT, Route to Pharmacy Electronically, [facility] #[id number], Partial fill upon patient request if the prescription is for a schedule... Start Date: 04/06/21 Status: Ordered levothyroxine 0.025 mg oral tablet 1 tablet, By Mouth, Daily, BUBBLE PACK PLEASE, # 90 tablet, 1 Refills, Maintenance, 02/14/21 7:27:00 EDT, Tablet, [facility] #[id number], 153, cm, 02/14/21 7:06:00 EDT, Height, 102.4, kg, 11/13/20 18:51:00 EDT, Dry Weight Start Date: 02/14/21 Stop Date: 08/13/21 Status: Ordered lisinopril 20 mg oral tablet 20 mg, 1, tablet, By Mouth, Daily, BUBBLE PACK PLEASE, # 90 tablet, Refills 1, Tot. Refills 1, Maintenance, 06/12/21 9:50:00 EDT, Route to Pharmacy Electronically, [facility] #[id number], 148.4,cm, 06/01/21 8:57:00 EDT, Height, 97.3, kg, ... Start Date: 06/12/21 Stop Date: 12/09/21 Status: Ordered LORazepam 1 mg oral tablet 1 tablet = 1 mg, By Mouth, Daily, PRN as needed for anxiety, covering provider, # 30 tablet, 0 Refills, Maintenance, 05/22/21 16:47:00 EDT, Tablet, [facility] #[id number], 148.4, cm, 02/16/21 15:09:00 EDT, Height, 97.6, kg, 02/15/21 17:00:00 EDT,... Start Date: 05/22/21 Stop Date: 06/21/21 Status: Ordered LORazepam 1 mg oral tablet 1 tablet = 1 mg, By Mouth, Daily, PRN as needed for anxiety, # 30 tablet, 0 Refills, Maintenance, 03/24/21 12:18:00 EDT, Tablet, [facility] #[id number], 148.4, cm, 02/16/21 15:09:00 EDT, Height,97.6, kg, [...] 3 Refills, Maintenance, 04/05/21 13:22:00 EDT, Tablet, [facility] #[id number], Part... Start Date: 04/05/21 Stop Date: 08/03/21 Status: Ordered nortriptyline 50 mg oral capsule 50 mg, 1, capsule, By Mouth, Daily, # 90 capsule, Refills 1, Tot. Refills 1, Maintenance, 02/14/21 7:26:00 EDT, Route to Pharmacy Electronically, [facility] #[id number], 153, cm, 02/14/21 7:06:00 EDT, Height, 102.4, kg, 11/13/20 18:51:00 EDT, Dry... Start Date: 02/14/21 Stop Date: 08/13/21 Status: Ordered omeprazole 20 mg oral enteric coated capsule 1 capsule = 20 mg, By Mouth, 2 times a day, BUBBLE PACK PLEASE, # 60 capsule, 3 Refills, Maintenance, 04/21/21 17:24:00 EDT, EC Capsule, [facility] #[id number], 148.4, cm, 02/16/21 15:09:00 EDT,Height, 97.6, kg, 02/15/21 17:00:00 EDT, Dry Weight Start Date: 04/21/21 Stop Date: 08/19/21 Status: Ordered ProAir HFA 90 mcg/inh inhalation aerosol 2 puffs, Inhalation, 4 times a day, PRN Wheezing/Shortness of Breath, # 2 each, 3 Refills, Maintenance, 11/08/20 17:08:00 EDT, Aerosol, [facility] #[id number], Partial fill upon patient request if the prescription is for a schedule II opioid drug... Start Date: 11/08/20 Stop Date: 03/08/21 Status: Ordered Singulair 10 mg oral tablet 10 mg, 1, tablet, By Mouth, Daily in PM, BUBBLE PACK PLEASE, # 30 tablet, Refills 5, Tot. Refills 5, Maintenance, 03/09/21 15:06:00 EDT, Route to Pharmacy Electronically, [facility] #[id number],148.4, cm, 02/16/21 15:09:00 EDT, Height, 97.6, kg,... Start Date: 03/09/21 Stop Date: 09/05/21 Status: Ordered umeclidinium 62.5 mcg/inh inhalation powder 1 inhalation = 62.5 mcg, Inhalation, Every 24 hours, doses should be taken at least 24 hours apart,# 30 each, 11 Refills, Maintenance, 01/06/21 14:47:00 EDT, Powder, [facility] #[id number], Partial fill upon patient request if the [...] Numbness and tingling in hands(Confirmed) Active *[facility] [phone] CARE MANAG ER HELEN MGJUAN LUIS(Confirmed) Active [...]
--- OUTSIDE RECORDS SUMMARY | 2023-03-06 14:45 | XMS_ITS | Continuity of Care Document ---
Author Name Unknown Organization [facility] Address [address] [place] [address]- Care Team Providers Care Slot Floor Supervisor Name Role Phone Rj OPERATIONAL ASSISTANT, Winsome Weiss Primary Care Physician [phone] Encounter [facility] Date(s): 07/14/21 - 08/13/21 [facility] [address] [address]- Allergies, Adverse Reactions, Alerts Substance Reaction Severity [...] [07/11/2018] [facility] 2Result Comment: [11/11/2015] given at [facility] [address] [place], [place] [id number] 3Result Comment: [07/11/2018] [facility] 5Admin Note: given at [facility] in [place], [place] 6Location History[facility] 7Admin Note: [facility] 05-19-2013 Medications albuterol 0.083% inhalation solution 3 mL = 2.5 mg, Inhalation, Every 6 hours, PRN Wheezing/Shortness of Breath, # 60 each, 6 Refills, Maintenance, 10/29/14 10:00:25, Solution Start Date: 10/29/14 Status: Ordered azelastine 137 mcg/inh (0.1%) nasal spray 2 sprays, Nares, Both, Daily, PRN Other Allergies, # 30 mL, 11 Refills, Maintenance, 01/06/21 14:51:00 EDT, [place], [facility] #[id number], Partial fill upon patient request if the prescriptionis for a schedule II opioid drug., 2 sprays Nares,... Start Date: 01/06/21 Status: Ordered dicyclomine 10 mg oral capsule 1 capsule = 10 mg, By Mouth, 4 times a day, PRN Pain , Moderate, # 28 capsule, 0 Refills, Maintenance, 05/11/21 15:51:00 EDT, Capsule, [facility] #[id number], Partial fill upon patient request if the prescription is for a schedule II opioid drug.... Start Date: 05/11/21 Stop Date: 05/18/21 Status: Ordered escitalopram 20 mg oral tablet 1 tablet = 20 mg, By Mouth, Daily, # 90 tablet, 1 Refills, Maintenance, 07/12/21 7:37:00 EST, Tablet, [facility] #[id number], 148.4, cm, 06/01/21 8:57:00 EDT, Height, 97.3, kg, 06/01/21 8:57:00 EDT, Dry Weight Start Date: 07/12/21 Stop Date: 01/08/22 Status: Ordered ferrous sulfate 325 mg oral enteric coated tablet 325 mg, 1, tablet, By Mouth, 2 times a day, may take with food to minimize abdominal discomfort, # 180 tablet, Refills 1, Tot. Refills 1, Maintenance, 07/12/21 7:38:00 EST, Route to Pharmacy Electronically, [facility] #[id number], 148.4, cm, 05/13... Start Date: 07/12/21 Stop [...] Maintenance,12/27/20 11:32:00 EDT, Route to Pharmacy Electronically, [facility] #[id number], Partial fill upon patient request if the prescription is for a sc... Start Date: 12/27/20 Status: Ordered isosorbide mononitrate 30 mg oral tablet, extended release 30 mg, 1, tablet, By Mouth, Daily in AM, # 30 tablet, Refills 3, Tot. Refills 3, Maintenance, 04/05/21 13:22:00 EDT, Route to Pharmacy Electronically, [facility] #[id number], Partial fill upon patient request if the prescription is for a schedule... Start Date: 04/05/21 Stop Date: 08/03/21 Status: Ordered isosorbide mononitrate 30 mg oral tablet, extended release 30 mg, 1, tablet, By Mouth, Daily in AM, # 30 tablet, Refills 3, Tot. Refills 3, Maintenance, 04/06/21 12:52:00 EDT, Route to Pharmacy Electronically, [facility] #[id number], Partial fill upon patient request if the prescription is for a schedule... Start Date: 04/06/21 Status: Ordered levothyroxine 0.025 mg oral tablet 1 tablet, By Mouth, Daily, BUBBLE PACK PLEASE, # 90 tablet, 1 Refills, Maintenance, 07/12/21 7:38:00 EST, Tablet, [facility] #[id number], 148.4, cm, 06/01/21 8:57:00 EDT, Height, 97.3, kg, 06/01/21 8:57:00 EDT, Dry Weight Start Date: 07/12/21 Stop Date: 01/08/22 Status: Ordered lisinopril 20 mg oral tablet 20 mg, 1, tablet, By Mouth, Daily, BUBBLE PACK PLEASE, # 90 tablet, Refills 1, Tot. Refills 1, Maintenance, 06/12/21 9:50:00 EDT, Route to Pharmacy Electronically, [facility] #[id number], 148.4,cm, 06/01/21 8:57:00 EDT, Height, 97.3, kg, 2... Start Date: 06/12/21 Stop Date: 12/09/21 Status: Ordered LORazepam 1 mg oral tablet 1 tablet = 1 mg, By Mouth, Daily, PRN as needed for anxiety, covering provider, # 30 tablet, 0 Refills, Maintenance, 08/08/21 17:07:00 EST, Tablet, [facility] #[id number], 148.4, cm, 06/01/21 8:57:00 EDT, Height, 97.3, kg, 06/01/21 8:57:00 EDT, D... Start Date: 08/08/21 Stop Date: 09/07/21 Status: Ordered LORazepam 1 mg oral tablet 1 tablet = 1 mg, By Mouth, Daily, PRN as needed for anxiety, # 30 tablet, 0 Refills, Maintenance, 03/24/21 12:18:00 EDT, Tablet, [facility] #[id number], 148.4, cm, 02/16/21 15:09:00 EDT, Height,97.6, kg, [...] 3 Refills, Maintenance, 04/05/21 13:22:00 EDT, Tablet, [facility] #[id number], Part... Start Date: 04/05/21 Stop Date: 08/03/21 Status: Ordered nortriptyline 50 mg oral capsule 50 mg, 1, capsule, By Mouth, Daily, # 90 capsule, Refills 1, Tot. Refills 1, Maintenance, 07/12/21 7:37:00 EST, Route to Pharmacy Electronically, [facility] #[id number], 148.4, cm, 06/01/21 8:57:00 EDT, Height, 97.3, kg, 06/01/21 8:57:00 EDT, Dry... Start Date: 07/12/21 Stop Date: 01/08/22 Status: Ordered omeprazole 20 mg oral enteric coated capsule 1 capsule = 20 mg, By Mouth, 2 times a day, BUBBLE PACK PLEASE, # 60 capsule, 3 Refills, Maintenance, 04/21/21 17:24:00 EDT, EC Capsule, [facility] #[id number], 148.4, cm, 02/16/21 15:09:00 EDT,Height, 97.6, kg, 02/15/21 17:00:00 EDT, Dry Weight Start Date: 04/21/21 Stop Date: 08/19/21 Status: Ordered ProAir HFA 90 mcg/inh inhalation aerosol 2 puffs, Inhalation, 4 times a day, PRN Wheezing/Shortness of Breath, # 2 each, 3 Refills, Maintenance, 11/08/20 17:08:00 EDT, Aerosol, [facility] #[id number], Partial fill upon patient request if the prescription is for a schedule II opioid drug... Start Date: 11/08/20 Stop Date: 03/08/21 Status: Ordered Singulair 10 mg oral tablet 10 mg, 1, tablet, By Mouth, Daily in PM, BUBBLE PACK PLEASE, # 30 tablet, Refills 5, Tot. Refills 5, Maintenance, 03/09/21 15:06:00 EDT, Route to Pharmacy Electronically, [facility] #[id number],148.4, cm, 02/16/21 15:09:00 EDT, Height, 97.6, kg,... Start Date: 03/09/21 Stop Date: 09/05/21 Status: Ordered umeclidinium 62.5 mcg/inh inhalation powder 1 inhalation = 62.5 mcg, Inhalation, Every 24 hours, doses should be taken at least 24 hours apart,# 30 each, 11 Refills, Maintenance, 01/06/21 14:47:00 EDT, Powder, [facility] #[id number], Partial fill upon patient request if the [...] *[facility] [phone] CARE MANAG ER HELEN RENO(Confirmed) Active Pulmonary [...]
--- OUTSIDE RECORDS SUMMARY | 2023-03-06 14:46 | XMS_ITS | Continuity of Care Document ---
Author Name Unknown Organization [facility] Address [address] [address]- Care Team Providers Care Fusing Machine Feeder Name Role Phone Rj HAMILTON, Winsome Weiss Primary Care Physician Encounter [facility] Date(s): 05/30/20 - 06/06/[address] [address]- [facility] Attending Physician: Nilsa LE, Blaze Kevin Referring Physician: Winsome De La Rosa NP [...] [07/11/2018] [facility] 2Result Comment: [11/11/2015] given at [facility] [address] [place] [address] [phone] 3Result Comment: [07/11/2018] [facility] 5Admin Note: given at [facility] in [place], [place] 6[facility] 7Admin Note: boostrix [...] 03/15/20 14:44:00 EDT, Route to Pharmacy Electronically, [facility][id number], 149.9, cm, 0... Start Date: 03/15/20 Stop Date: 09/11/20 Status: Ordered Colace sodium 100 mg oral capsule 100 mg, 1, capsule, By Mouth, 2 times a day, BUBBLE PACK PLEASE, # 180 capsule, Refills 1, Tot. Refills 1, Maintenance, 04/18/20 14:37:00 EDT, Route to Pharmacy Electronically, [id number], 149.9, cm, 03/07/20 10:17:00 EDT, Height, 103... [...] 5 Refills, Maintenance, 04/27/20 9:19:00 EDT, Tablet, [id number], 149.9, cm, 04/27/20 9:00:00 EDT, Height, 103.8, kg, 03/07/20 10:17:00 EDT, Dry Weight Start Date: 04/27/20 Stop Date: 10/24/20 Status: Ordered FeroSul 325 mg oral tablet 1 tablet = 325 mg, By Mouth, 2 times a day, BUBBLE PACK PLEASE, # 60 tablet, 5 Refills, Soft Stop, 04/18/20 14:38:00 EDT, [id number], 149.9, cm, 03/07/20 10:17:00 EDT, Height, 103.8,kg, 03/07/20 10:17:00 EDT, Dry Weight Start Date: 04/18/20 Stop Date: 10/15/20 Status: Ordered ferrous sulfate 325 mg oral enteric coated tablet 325 mg, 1, tablet, By Mouth, 2 times a day, # 180 tablet, Refills 1, Tot. Refills 1, Maintenance, 12/24/18 14:50:03 EDT, Route to Pharmacy Electronically, [id number] Start Date: 12/24/18 Stop Date: 06/22/19 Status: Ordered Flovent HFA 220 mcg/inh inhalation aerosol 2 puffs, Inhalation, 2 times a day, # 1 each, 6 Refills, Maintenance, 05/30/20 10:57:00 EDT, Aerosol, [id number], 149.9, cm, 05/30/20 10:53:00 EDT, Height, 103.8, kg, 03/07/20 10:17:00 EDT, Dry Weight Start Date: 05/30/20 Stop Date: 12/26/20 Status: Ordered gabapentin 100 mg oral capsule 100 mg, 1, capsule, By Mouth, 2 times a day, BUBBLE PACK PLEASE, # 60 capsule, Refills 3, Tot. Refills 3, Maintenance, 05/30/20 11:10:00 EDT, Route to Pharmacy Electronically, [id number], 149.9, cm, 05/30/20 10:53:00 EDT, Height, 103.... Start Date: 05/30/20 Stop Date: 09/27/20 Status: Ordered levothyroxine 0.025 mg oral tablet 1 tablet, By Mouth, Daily, BUBBLE PACK PLEASE, # 30 tablet, 5 Refills, Maintenance, 04/27/20 9:20:00 EDT, Tablet, [id number], 149.9, cm, 04/27/20 9:00:00 EDT, Height, 103.8, kg, 03/07/20 10:17:00 EDT, Dry Weight Start Date: 04/27/20 Stop Date: 10/24/20 Status: Ordered lisinopril 20 mg oral tablet 20 mg, 1, tablet, By Mouth, Daily, BUBBLE PACK PLEASE, # 30 tablet, Refills 5, Tot. Refills 5, Maintenance, 04/27/20 9:21:00 EDT, Route to Pharmacy Electronically, [id number], 149.9,cm, 04/27/20 9:00:00 EDT, Height, 103.8, kg, ... Start Date: 04/27/20 Stop Date: 10/24/20 Status: Ordered LORazepam 1 mg oral tablet 1 tablet = 1 mg, By Mouth, Daily, PRN as needed for anxiety, # 30 tablet, 0 Refills, Maintenance, 05/30/20 10:55:00 EDT, Tablet, [id number], 149.9, cm, 05/30/20 10:53:00 EDT, Height,103.8, kg, 03/07/20 10:17:00 EDT, Dry Weight Start Date: 05/30/20 Stop Date: 06/29/20 Status: Ordered nortriptyline 50 mg oral capsule 50 mg, 1, capsule, By Mouth, Daily, BUBBLE PACK PLEASE, # 30 capsule, Refills 6, Tot. Refills 6, Maintenance, 03/25/20 19:21:00 EDT, Route to Pharmacy Electronically, [id number], 149.9, cm, 03/07/20 10:17:00 EDT, Height, 103.8, kg, 07... Start Date: 03/25/20 Stop Date: 10/21/20 Status: Ordered nystatin topical [id number] u/gm ointment 1 application, Topically, 3 times [...] Refills, Maintenance, 04/27/20 9:19:00 EDT, EC Capsule, [id number], 149.9, cm, 04/27/20 9:00:00 EDT, Height, 103.8, kg, 03/07/20 10:17:00 EDT, Dry Weight Start Date: 04/27/20 Stop Date: 10/24/20 Status: Ordered Singulair 10 mg oral tablet 10 mg, 1, tablet, By Mouth, Daily in PM, BUBBLE PACK PLEASE, # 30 tablet, Refills 5, Tot. Refills 5, Maintenance, 03/02/20 16:02:00 EDT, Route to Pharmacy Electronically, [facility],149.9, cm, 03/02/20 10:16:00 EDT, Height, 94.4, kg,... [...] Numbness and tingling in hands(Confirmed) Active *[facility] [phone] CARE MANAG ER HELEN RENO(Confirmed) Active Rib pain on left side(Confirmed) Active Pain in right shoulder(Confirmed) Active Urge urinary incontinence(Confirmed) Active 1tx with apc today due to bleeding. 2normal PFT's 11/22/14 r/o COPD 3childhood onset 4possibly Type III 53+ 6s/p bilateral salpingo-oophrectomy Vital Signs Most recent to oldest [Reference Range]: 1 Height 149.9 cm (05/30/20 1:40 PM) Pulse Rate [55-90 bpm] 91 bpm *H* (05/30/20 1:40 PM) Blood Pressure [90-138/55-84 mm Hg] 174/ 75mm Hg *H* (05/30/20 1:40 PM) Temperature [96.8-100.4 DegF] 98.0 DegF (05/30/20 1:40 PM) Blood pressure sites Arm, left (05/30/20 1:40 PM) Temperature Route Tympanic (05/30/20 1:40 PM) Social History Social History Type Response Smoking Status Former smoker; Tobac co user in household: No; Type: Cigarettes; Stopped at age: 48; Tobacco use times per day: up to 2 ppd; Started at age: 16; entered on: 11/08/14 Sex
--- OUTSIDE RECORDS SUMMARY | 2023-03-06 14:46 | XMS_ITS | Continuity of Care Document ---
Author Name Unknown Organization [facility] Address [address] [place] [address]- Care Team Providers Care Hothouse Worker Name Role Phone Rj BORING MACHINE FEEDER, Winsome M Primary Care Physician [phone] Encounter [facility] Date(s): 02/01/22 - 03/03/22 [facility] [address] [place] [address]- [place] Allergies, Adverse Reactions, Alerts Substance Reaction [...] [facility] 3Admin Note: given at [facility] in [place] 4Result Comment: [07/11/2018] [facility] 5Result Comment: [11/11/2015] given at [facility] [address] [place] [address] [phone] 6[facility] 7Admin Note: boostrix vis [...] 01/19/22 19:16:00 EDT, Route to Pharmacy Electronically, [facility] #[id number], Partial fill upon patientrequest if the prescription is for a schedule II op... Start Date: 01/19/22 Status: Ordered docusate sodium 100 mg oral capsule TAKE 1 CAPSULE BY MOUTH TWICE DAILY NEEDED FOR CONSTIPATION Start Date: 02/20/22 Status: Ordered escitalopram 20 mg oral tablet 1 tablet = 20 mg, By Mouth, Daily, # 90 tablet, 1 Refills, Maintenance, 11/29/21 7:27:00 EDT, Tablet, [facility] #10927, 150, cm, 11/03/21 13:46:00 EDT, Height, 100.8, [...] 12/01/21 16:35:00 EDT, Route to Pharmacy Electronically, [facility] #[id number], Partial fill upon patient request if the prescription is for a sched... Start Date: 12/01/21 Stop Date: 05/30/22 Status: Ordered gabapentin 100 mg oral capsule 200 mg, 2, capsule, By Mouth, 3 times a day, 2 capsules to equal 200 mg three times a day., # 180 capsule, Refills 3, Tot. Refills 3, Maintenance, 12/05/21 20:30:00 EDT, Route to Pharmacy Electronically, [facility] #[id number], Partial fill upon... Start Date: 12/05/21 Status: [...] mL, 3 Refills, Maintenance, 11/29/21 21:45:00 EDT, [facility] #84186, Partial fill upon patient request if the prescriptionis for a schedule II opioid drug., 150, cm, ... Start Date: 11/29/21 Status: Ordered levothyroxine 0.025 mg oral tablet 1 tablet, By Mouth, Daily, # 90 tablet, 1 Refills, Maintenance, 11/29/21 7:27:00 EDT, Tablet, [facility] #[id number], 150, cm, 11/03/21 13:46:00 EDT, Height, 100.8, [...] 0 Refills, Maintenance, 03/01/22 11:00:00 EDT, Tablet, [facility] 3, Partial fill upon patient request if [...] 3 Refills, Maintenance, 04/05/21 13:22:00 EDT, Tablet, [facility] #28730, Part... Start Date: 04/05/21 Stop Date: 08/03/21 Status: Ordered NovoLOG FlexPen 100 units/mL injectable solution See Instructions, Subcutaneous Infusion 3 times a day before meals. Sliding scale:: 150-200 2 [id number] 4 UNITS 300-350 6 UNITS, # 3 mL, 3 Refills, Maintenance, 12/01/21 11:54:00 EDT, [facility] #14676, Partial fill upon patient requ... Start Date: 12/01/21 Status: Ordered oxyCODONE 5 mg oral tablet 5 mg, 1, tablet, By Mouth, 3 times a day, PRN, MassPat checked, # 10 tablet, Refills 0, Tot. Refills 0, Maintenance, Pain , Severe, 01/19/22 13:52:00 EDT, Route to Pharmacy Electronically, [facility] #74383, Partial fill upon patient request... Start Date: [...] 10/14/21 18:18:00 EST, Route to Pharmacy Electronically, [facility] #92255,148.4, cm, 10/05/21 10:50:00 EST, Height, 104.5, kg... [...] 11 Refills, Maintenance, 01/06/21 14:47:00 EDT, Powder, [facility] #22244, Partial fill upon patient request if the [...] Active Numbness and tingling in hands(Confirmed) Active *[facility] [phone] CARE MANAG ER HELEN RENO(Confirmed) Active Hepatitis [...]
--- OUTSIDE RECORDS SUMMARY | 2023-03-06 14:46 | XMS_ITS | Continuity of Care Document ---
Author Name Unknown Organization [facility] Address [address] [place] [address]- Care Team Providers Care Sprue Cutting Press Operator Name Role Phone Rj WILD ANIMAL CARETAKER, Winsome M Primary Care Physician [phone] Encounter [facility] Date(s): 02/20/22 - 03/22/22 [facility] [address] [place] [address]- [place] Allergies, Adverse Reactions, Alerts Substance Reaction [...] 2[facility] 3Admin Note: given at [facility] in [place] 4Result Comment: [07/11/2018] [facility] 5Result Comment: [11/11/2015] given at [facility] [address] [place] [address] [phone] 6[facility] History[facility] 7Admin Note: [facility]rix vis [...] 01/19/22 19:16:00 EDT, Route to Pharmacy Electronically, [email or web address] #[id number], Partial fill upon patientrequest if the prescription is for a schedule II op... Start Date: 01/19/22 Status: Ordered docusate sodium 100 mg oral capsule TAKE 1 CAPSULE BY MOUTH TWICE DAILY NEEDED FOR CONSTIPATION Start Date: 02/20/22 Status: Ordered escitalopram 20 mg oral tablet 1 tablet = 20 mg, By Mouth, Daily, # 90 tablet, 1 Refills, Maintenance, 11/29/21 7:27:00 EDT, Tablet, [email or web address] #[id number], 150, cm, 11/03/21 13:46:00 EDT, Height, 100.8, [...] 12/01/21 16:35:00 EDT, Route to Pharmacy Electronically, [email or web address] #[id number], Partial fill upon patient request if the prescription is for a sched... Start Date: 12/01/21 Stop Date: 05/30/22 Status: Ordered gabapentin 100 mg oral capsule 200 mg, 2, capsule, By Mouth, 3 times a day, 2 capsules to equal 200 mg three times a day., # 180 capsule, Refills 3, Tot. Refills 3, Maintenance, 12/05/21 20:30:00 EDT, Route to Pharmacy Electronically, [email or web address] #[id number], Partial fill upon... Start Date: 12/05/21 Status: [...] mL, 3 Refills, Maintenance, 11/29/21 21:45:00 EDT, [email or web address] #[id number], Partial fill upon patient request if the prescriptionis for a schedule II opioid drug., 150, cm, ... Start Date: 11/29/21 Status: Ordered levothyroxine 0.025 mg oral tablet 1 tablet, By Mouth, Daily, # 90 tablet, 1 Refills, Maintenance, 11/29/21 7:27:00 EDT, Tablet, [email or web address] #42090, 150, cm, 11/03/21 13:46:00 EDT, Height, 100.8, [...] 0 Refills, Maintenance, 03/01/22 11:00:00 EDT, Tablet, [facility] 3, Partial fill upon patient [...] 3 Refills, Maintenance, 04/05/21 13:22:00 EDT, Tablet, [email or web address] #[id number], Part... Start Date: 04/05/21 Stop Date: 08/03/21 Status: Ordered NovoLOG FlexPen 100 units/mL injectable solution See Instructions, Subcutaneous Infusion 3 times a day before meals. Sliding scale:: 150-200 2 [id number] 4 UNITS 300-350 6 UNITS, # 3 mL, 3 Refills, Maintenance, 12/01/21 11:54:00 EDT, [facility] #23093, Partial fill upon patient requ... Start Date: [...] 01/19/22 13:52:00 EDT, Route to Pharmacy Electronically, [email or web address] #[id number], Partial fill upon patient request... Start Date: [...] 10/14/21 18:18:00 EST, Route to Pharmacy Electronically, [email or web address] #19547,148.4, cm, 10/05/21 10:50:00 EST, Height, 104.5, kg... Start Date: 10/14/21 Stop Date: 04/12/22 Status: Ordered trospium 60 mg oral capsule, extended release 1 capsule = 60 mg, By Mouth, Daily in AM, # 30 capsule, 0 Refills, Maintenance, 03/05/22 11:28:00 EDT, [email or web address] #43627, Partial fill upon patient request if the [...] Numbness and tingling in hands(Confirmed) Active *[facility] [phone] CARE MANAG ER HELEN ERNO(Confirmed) Active Hepatitis C virus infection resolved after [...]
--- OUTSIDE RECORDS SUMMARY | 2023-03-06 14:46 | XMS_ITS | Continuity of Care Document ---
Author Name Unknown Organization [facility] [place] Address [address] [place] [address]- Care Team Providers Care Bad Credit Collector Name Role Phone Rj CLINICAL PARTNER, Winsome Weiss Primary Care Physician Encounter [facility] Date(s): 03/27/22 - 04/26/22 [facility] [address] [place] [address]- Attending Physician: Dayana Orlando Admitting Physician: Dayana Orlando Referring Physician: AdmtrDayana Allergies, Adverse Reactions, Alerts [...] 2[facility] 3Admin Note: given at [facility] in [place], [place] 4Result Comment: [07/11/2018] [facility] 5Result Comment: [11/11/2015] given at [facility] [address] [place] [address] [phone] 6Location History[facility] 7Admin Note: [facility] 12-28-2012 Medications Breo Ellipta 200 mcg-25 mcg/inh inhalation powder 1 puffs, Inhalation, Daily, # 1 each, 11 Refills, Maintenance, 12/20/21 15:11:00 EDT, Powder, [facility] #21628, Partial fill upon patient request if the [...] 01/19/22 19:16:00 EDT, Route to Pharmacy Electronically, [facility] #[id number], Partial fill upon patientrequest if the prescription is for a schedule II op... Start Date: 01/19/22 Status: Ordered docusate sodium 100 mg oral capsule 100 mg, 1, capsule, By Mouth, Every 12 hours, PRN, # 60 capsule, Refills 0, Tot. Refills 0, Maintenance, Constipation, 04/23/22 16:44:00 EDT, Route to Pharmacy Electronically, [facility] #05361, Partial fill upon patient request if the presc... Start Date: 04/23/22 Stop Date: 05/23/22 Status: Ordered docusate sodium 100 mg oral capsule TAKE 1 CAPSULE BY MOUTH TWICE DAILY NEEDED FOR CONSTIPATION Start Date: 02/20/22 Status: Ordered escitalopram 20 mg oral tablet 1 tablet = 20 mg, By Mouth, Daily, # 90 tablet, 1 Refills, Maintenance, 11/29/21 7:27:00 EDT, Tablet, [facility] #65287, 150, cm, 11/03/21 13:46:00 EDT, Height, 100.8, [...] 12/01/21 16:35:00 EDT, Route to Pharmacy Electronically, [facility] #[id number], Partial fill upon patient request if the prescription is for a sched... Start Date: 12/01/21 Stop Date: 05/30/22 Status: Ordered gabapentin 100 mg oral capsule 200 mg, 2, capsule, By Mouth, 3 times a day, 2 capsules to equal 200 mg three times a day., # 180 capsule, Refills 3, Tot. Refills 3, Maintenance, 12/05/21 20:30:00 EDT, Route to Pharmacy Electronically, [facility] #[id number], Partial fill upon... Start Date: 12/05/21 Status: [...] mL, 3 Refills, Maintenance, 11/29/21 21:45:00 EDT, [facility] #37159, Partial fill upon patient request if the prescriptionis for a schedule II opioid drug., 150, cm, ... Start Date: 11/29/21 Status: Ordered levothyroxine 0.025 mg oral tablet 1 tablet, By Mouth, Daily, # 90 tablet, 1 Refills, Maintenance, 11/29/21 7:27:00 EDT, Tablet, [facility] #73996, 150, cm, 11/03/21 13:46:00 EDT, Height, 100.8, [...] Maintenance, 03/01/22 11:00:00 EDT, Tablet, [facility] 3, Partial fill upon patient request if [...] 3 Refills, Maintenance, 04/05/21 13:22:00 EDT, Tablet, [facility] #95174, Part... Start Date: 04/05/21 Stop Date: 08/03/21 Status: Ordered NovoLOG FlexPen 100 units/mL injectable solution See Instructions, Subcutaneous Infusion 3 times a day before meals. Sliding scale:: 150-200 2 [id number] 4 UNITS 300-350 6 UNITS, # 3 mL, 3 Refills, Maintenance, 12/01/21 11:54:00 EDT, [facility] #51529, Partial fill upon patient requ... Start Date: [...] 01/19/22 13:52:00 EDT, Route to Pharmacy Electronically, [facility] #93179, Partial fill upon patient request... Start Date: [...] 10/14/21 18:18:00 EST, Route to Pharmacy Electronically, [facility] #00522,148.4, cm, 10/05/21 10:50:00 EST, Height, 104.5, kg... Start Date: 10/14/21 Stop Date: 04/12/22 Status: Ordered trospium 60 mg oral capsule, extended release 1 capsule = 60 mg, By Mouth, Daily in AM, # 90 capsule, 0 Refills, Maintenance, 04/04/22 8:37:00 EDT, [facility] #45390, Partial fill upon patient request if the [...] 11 Refills, Maintenance, 03/15/22 10:32:00 EDT, Powder, [facility] #87174, Partial fill upon patient request if the [...] hands(Confirmed) Active *[facility] [phone] CARE MANAG ER HELEN ROWDY(Confirmed) Active Hepatitis [...] Name: Winsome De La Rosa NP Address: [address] [place] [address]
--- OUTSIDE RECORDS SUMMARY | 2023-03-06 14:46 | XMS_ITS | Continuity of Care Document ---
Author Name Unknown Organization [facility] Address [address] [place] [address]- Care Team Providers Care Mailing Machine Assistant Name Role Phone Rj HAMILTON, Winsome M Primary Care Physician [facility] Date(s): 03/09/22 - 04/08/22 [facility] [address] [place] [address]- Attending Physician: AdmDayana nolan Admitting Physician: Admtr, [...] Vaccine Live 08/19/12 Recorded zoster vaccine, inactivated 6/18/18 Recorded pneumococcal 13-valent vaccine 01/27/18 Recorded pneumococcal 23-valent vaccine 6 07/19/15 Recorded pneumococcal 23-valent vaccine 03/31/10 Given Tet/Diphth/Acel, Pertussis (oldterm) 7 12/11/13 Gi su[facility]hi 1Result Comment: [07/11/2018] [facility] 2[facility] History[facility] 3Admin Note: given at [facility] in [place], [place] 4Result Comment: [07/11/2018] [facility] 5Result Comment: [11/11/2015] given at [facility] [address] [place] [address] [phone] 6[facility] 7Admin Note: [facility] vis [...] 01/19/22 19:16:00 EDT, Route to Pharmacy Electronically, [facility] #[id number], Partial fill upon patientrequest if the prescription is for a schedule II op... Start Date: 01/19/22 Status: Ordered docusate sodium 100 mg oral capsule TAKE 1 CAPSULE BY MOUTH TWICE DAILY NEEDED FOR CONSTIPATION Start Date: 02/20/22 Status: Ordered escitalopram 20 mg oral tablet 1 tablet = 20 mg, By Mouth, Daily, # 90 tablet, 1 Refills, Maintenance, 11/29/21 7:27:00 EDT, Tablet, [facility] #65016, 150, cm, 11/03/21 13:46:00 EDT, Height, 100.8, [...] 12/01/21 16:35:00 EDT, Route to Pharmacy Electronically, [facility] #[id number], Partial fill upon patient request if the prescription is for a sched... Start Date: 12/01/21 Stop Date: 05/30/22 Status: Ordered gabapentin 100 mg oral capsule 200 mg, 2, capsule, By Mouth, 3 times a day, 2 capsules to equal 200 mg three times a day., # 180 capsule, Refills 3, Tot. Refills 3, Maintenance, 12/05/21 20:30:00 EDT, Route to Pharmacy Electronically, [facility] #[id number], Partial fill upon... Start Date: 12/05/21 Status: [...] mL, 3 Refills, Maintenance, 11/29/21 21:45:00 EDT, [facility] #[id number], Partial fill upon patient request if the prescriptionis for a schedule II opioid drug., 150, cm, ... Start Date: 11/29/21 Status: Ordered levothyroxine 0.025 mg oral tablet 1 tablet, By Mouth, Daily, # 90 tablet, 1 Refills, Maintenance, 11/29/21 7:27:00 EDT, Tablet, [facility] #07144, 150, cm, 11/03/21 13:46:00 EDT, Height, 100.8, [...] 0 Refills, Maintenance, 03/01/22 11:00:00 EDT, Tablet, [facility] 3, Partial fill upon patient request [...] 3 Refills, Maintenance, 04/05/21 13:22:00 EDT, Tablet, [facility] #09396, Part... Start Date: 04/05/21 Stop Date: 08/03/21 Status: Ordered NovoLOG FlexPen 100 units/mL injectable solution See Instructions, Subcutaneous Infusion 3 times a day before meals. Sliding scale:: 150-200 2 [id number] 4 UNITS 300-350 6 UNITS, # 3 mL, 3 Refills, Maintenance, 12/01/21 11:54:00 EDT, [facility] #[id number], Partial fill upon patient requ... Start Date: [...] 01/19/22 13:52:00 EDT, Route to Pharmacy Electronically, [facility] #[id number], Partial fill upon patient request... Start Date: [...] 10/14/21 18:18:00 EST, Route to Pharmacy Electronically, [facility] #55776,148.4, cm, 10/05/21 10:50:00 EST, Height, 104.5, kg... Start Date: 10/14/21 Stop Date: 04/12/22 Status: Ordered trospium 60 mg oral capsule, extended release 1 capsule = 60 mg, By Mouth, Daily in AM, # 90 capsule, 0 Refills, Maintenance, 04/04/22 8:37:00 EDT, [facility] #82141, Partial fill upon patient request if the [...] Numbness and tingling in hands(Confirmed) Active *[facility] [phone] CARE MANAG ER HELEN ROWDY(Confirmed) Active Hepatitis [...] Name: Winsome De La Rosa NP Address: [address] [place] [id number]
--- OUTSIDE RECORDS SUMMARY | 2023-03-06 14:46 | XMS_ITS | Continuity of Care Document ---
Author Name Unknown Organization [facility] ter Address [address] [place] [phone] Care Team Providers Care Structural Architect Name Role Phone Rj HAMILTON, Winsome Weiss Primary Care Physician [phone] [facility]counter [facility] Date(s): 10/05/21 - 10/05/[address] [id number] Discharge Disposition: A-D/C Home Attending Physician: Chip Winkler MD Admitting Physician: Chip Winkler MD Referring Physician: Panchito Boyce MD Allergies, [...] 2[facility] 3Admin Note: given at [facility] in [place] 4Result Comment: [07/11/2018] [facility] 5Result Comment: [11/11/2015] given at [facility] [address] [place] [address] [phone] 6[facility] History[facility] 7Admin Note: [facility] vis [...] Replace Required Details, Route to Pharmacy Electronically, [facility] .. Start Date: 08/30/21 Status: Ordered escitalopram 20 mg oral tablet 1 tablet = 20 mg, By Mouth, Daily, # 90 tablet, 1 Refills, Maintenance, 07/12/21 7:37:00 EST, Tablet, [facility] #[id number], 148.4, cm, 06/01/21 8:57:00 EDT, Height, 97.3, [...] Maintenance,12/27/20 11:32:00 EDT, Route to Pharmacy Electronically, [facility] #[id number], Partial fill upon patient request if the prescription is for a sc... Start Date: 12/27/20 Status: Ordered isosorbide mononitrate 30 mg oral tablet, extended release 30 mg, 1, tablet, By Mouth, Daily in AM, # 30 tablet, Refills 3, Tot. Refills 3, Maintenance, 04/05/21 13:22:00 EDT, Route to Pharmacy Electronically, [facility] #[id number], Partial fill upon patient request if the prescription is for a schedule... Start Date: 04/05/21 Stop Date: 08/03/21 Status: Ordered isosorbide mononitrate 30 mg oral tablet, extended release 30 mg, 1, tablet, By Mouth, Daily in AM, # 30 tablet, Refills 3, Tot. Refills 3, Maintenance, 04/06/21 12:52:00 EDT, Route to Pharmacy Electronically, [facility] #[id number], Partial fill upon patient request if the prescription is for a schedule... Start Date: 04/06/21 Status: Ordered levothyroxine 0.025 mg oral tablet 1 tablet, By Mouth, Daily, BUBBLE PACK PLEASE, # 90 tablet, 1 Refills, Maintenance, 07/12/21 7:38:00 EST, Tablet, [facility] #[id number], 148.4, cm, 06/01/21 8:57:00 EDT, Height, 97.3, kg, 06/01/21 8:57:00 EDT, Dry Weight Start Date: 07/12/21 Stop Date: 01/08/22 Status: Ordered lisinopril 20 mg oral tablet 20 mg, 1, tablet, By Mouth, Daily, BUBBLE PACK PLEASE, # 90 tablet, Refills 1, Tot. Refills 1, Maintenance, 08/30/21 12:48:00 EST, Route to Pharmacy Electronically, [facility] #[id number], 148.4, cm, 08/15/21 9:27:00 EST, Height, 97.3, kg, 06/01/... Start Date: 08/30/21 Stop Date: 02/26/22 Status: Ordered LORazepam 1 mg oral tablet 1 tablet = 1 mg, By Mouth, Daily, PRN as needed for anxiety, covering provider, # 30 tablet, 0 Refills, Maintenance, 08/08/21 17:07:00 EST, Tablet, [facility] #[id number], 148.4, cm, 06/01/21 8:57:00 EDT, Height, 97.3, kg, 06/01/21 8:57:00 EDT, D... Start Date: 08/08/21 Stop Date: 09/07/21 Status: Ordered LORazepam 1 mg oral tablet 1 tablet = 1 mg, By Mouth, Daily, PRN as needed for anxiety, # 30 tablet, 0 Refills, Maintenance, 03/24/21 12:18:00 EDT, Tablet, [facility] #[id number], 148.4, cm, 02/16/21 15:09:00 EDT, Height,97.6, kg, 02/15/21 17:00:00 EDT, Dry Weight Start Date: 03/24/21 Stop Date: 04/23/21 Status: Ordered metoprolol 25 mg oral tablet, extended release 25 mg, 1, tablet, By Mouth, Daily, # 90 tablet, Refills 3, Tot. Refills 3, Maintenance, 10/03/21 16:04:00 EST, Route to Pharmacy Electronically, [facility] #[id number], Partial fill upon patientrequest if the prescription is for a schedule II op... Start Date: 10/03/21 Status: Ordered Metoprolol Inj 5 mg, Injection, IV Push Slowly, Once, Routine, 10/05/21 10:20:00 EST, Stop date 10/05/21 10:20:00 EST Start Date: 10/05/21 Stop Date: 10/05/21 Status: Completed Metoprolol Inj 5 mg, Injection, IV Push Slowly, Once, Routine, 10/05/21 10:25:00 EST, Stop date 10/05/21 10:25:00 EST Start Date: 10/05/21 Stop Date: 10/05/21 Status: Completed nitroglycerin 0.4 mg sublingual tablet 1 tablet = 0.4 mg, Sublingual, Every 5 minutes, PRN as needed for chest pain, not to exceed 3 doses/15 min--if pain persists, seek medical attention, # 30 tablet, 3 Refills, Maintenance, 04/05/21 13:22:00 EDT, Tablet, [facility] #[id number], Part... Start Date: 04/05/21 Stop Date: 08/03/21 Status: Ordered nortriptyline 50 mg oral capsule 50 mg, 1, capsule, By Mouth, Daily, # 90 capsule, Refills 1, Tot. Refills 1, Maintenance, 07/12/21 7:37:00 EST, Route to Pharmacy Electronically, [facility] #[id number], 148.4, cm, 06/01/21 8:57:00 EDT, Height, 97.3, kg, 06/01/21 8:57:00 EDT, Dry... Start Date: 07/12/21 Stop Date: 01/08/22 Status: Ordered omeprazole 20 mg oral enteric coated capsule 1 capsule = 20 mg, By Mouth, 2 times a day, BUBBLE PACK PLEASE, # 60 capsule, 3 Refills, Maintenance, 08/24/21 9:30:00 EST, EC Capsule, [facility] #[id number], 148.4, cm, 08/15/21 9:27:00 EST, Height, 97.3, kg, 06/01/21 8:57:00 EDT, Dry Weight Start Date: 08/24/21 Stop Date: 12/22/21 Status: Ordered ProAir HFA 90 mcg/inh inhalation aerosol 2 puffs, Inhalation, 4 times a day, PRN Wheezing/Shortness of Breath, # 2 each, 3 Refills, Maintenance, 11/08/20 17:08:00 EDT, Aerosol, [facility] #[id number], Partial fill upon patient request if the prescription is for a schedule II opioid drug... Start Date: 11/08/20 Stop Date: 03/08/21 Status: Ordered Singulair 10 mg oral tablet 10 mg, 1, tablet, By Mouth, Daily in PM, BUBBLE PACK PLEASE, # 30 tablet, Refills 5, Tot. Refills 5, Maintenance, 03/09/21 15:06:00 EDT, Route to Pharmacy Electronically, [facility] #[id number],148.4, cm, 02/16/21 15:09:00 EDT, Height, 97.6, kg,... Start Date: 03/09/21 Stop Date: 09/05/21 Status: Ordered trospium 60 mg oral capsule, extended release 1 capsule = 60 mg, By Mouth, Daily, # 30 capsule, 5 Refills, Maintenance, 09/29/21 15:29:00 EST, CRCapsule, [facility] #[id number], Partial fill upon patient request if the prescription is for a schedule II opioid drug., 148.4, cm, 08/15/21 9:27... Start Date: 09/29/21 Status: Ordered umeclidinium 62.5 mcg/inh inhalation powder 1 inhalation = 62.5 mcg, Inhalation, Every 24 hours, doses should be taken at least 24 hours apart,# 30 each, 11 Refills, Maintenance, 01/06/21 14:47:00 EDT, Powder, [facility] #[id number], Partial fill upon patient request if the [...] Active Numbness and tingling in hands(Confirmed) Active *[facility] [phone] CARE MANAG ER HELEN RENO(Confirmed) Active Pulmonary edema(Confirmed) Active Rib pain on left side(Confirmed) Active Severe obesity(Confirmed) Active Pain in right shoulder(Confirmed) Active Urge urinary incontinence(Confirmed) Active 1tx with apc today due to bleeding. 2normal PFT's 11/22/14 r/o COPD 3childhood onset 4possibly Type III 53+ 6s/p bilateral salpingo-oophrectomy Vital Signs Most recent to oldest [Reference Range]: 1 2 3 Height 148.4 cm (10/05/21 10:50 AM) 148.4 cm (10/05/21 8:23 AM) Weight 104.5 kg (10/05/21 8:23 AM) Oxygen Saturation [94-100 %] 97 % (10/05/21 10:50 AM) 98 % (10/05/21 7:16 AM) Pulse Rate [55-90 bpm] 71 bpm (10/05/21 10:50 AM) 84 bpm (10/05/21 10:25 AM) 80 bpm (10/05/21 10:20 AM) Blood Pressure [90-138/55-84 mm Hg] 102/76mm Hg (10/05/21 10:50 AM) 121/69mm Hg (10/05/21 10:25 AM) 129/61mm Hg (10/05/21 10:20 AM) Respiratory Rate [16-30 br/min] 18 br/min (10/05/21 10:50 AM) 20 br/min (10/05/21 7:16 AM) 18 br/min (10/05/21 7:00 AM) Temperature [96.8-100.4 DegF] 98.1 DegF (10/05/21 10:50 AM) 98.3 DegF (10/05/21 7:16 AM) Mode of Delivery (Oxygen) Room air (10/05/21 10:50 AM) Room air (10/05/21 7:16 AM) Blood pressure sites Arm, left (10/05/21 10:50 AM) Arm, left (10/05/21 7:16 AM) Temperature Route Oral (10/05/21 10:50 AM) Oral (10/05/21 7:16 AM) Dry Weight 104.5 kg (10/05/21 8:23 AM) Weight Obtained Via Patient/family state d (10/05/21 8:23 AM) Social History Social History Type Response Smoking Status Former smoker; Tobac co user in household: No; Type: Cigarettes; Stopped at age: 48; Tobacco use times per day: up to 2 ppd; Started at age: 16; entered on: 11/08/14 Sex Female
--- OUTSIDE RECORDS SUMMARY | 2023-03-06 14:46 | XMS_ITS | Continuity of Care Document ---
Author Name Unknown Organization [facility] Address [address] [place] [id number]- Care Team Providers Care Warp Clamper Name Role Phone Rj HAMILTON, Winsome Weiss Primary Care Physician [phone] Encounter [facility] Date(s): 07/12/21 - 08/11/21 [facility] [address] [place] [phone] [place] Allergies, Adverse Reactions, Alerts Substance Reaction [...] [07/11/2018] [facility] 2Result Comment: [11/11/2015] given at [facility] [address] [place] [address] [phone] 3Result Comment: [07/11/2018] [facility] 5Admin Note: given at [facility] in [place], [place] 6Location History[facility] 7Admin Note: boostrix [...] mL, 11 Refills, Maintenance, 01/06/21 14:51:00 EDT, [place], [facility] #[id number], Partial fill upon patient request if the prescriptionis for a schedule II opioid drug., 2 sprays Nares,... Start Date: 01/06/21 Status: Ordered dicyclomine 10 mg oral capsule 1 capsule = 10 mg, By Mouth, 4 times a day, PRN Pain , Moderate, # 28 capsule, 0 Refills, Maintenance, 05/11/21 15:51:00 EDT, Capsule, [facility] #[id number], Partial fill upon patient request if the prescription is for a schedule II opioid drug.... Start Date: 05/11/21 Stop Date: 05/18/21 Status: Ordered escitalopram 20 mg oral tablet 1 tablet = 20 mg, By Mouth, Daily, # 90 tablet, 1 Refills, Maintenance, 07/12/21 7:37:00 EST, Tablet, [facility] #[id number], 148.4, cm, 06/01/21 8:57:00 EDT, Height, 97.3, kg, 06/01/21 8:57:00 EDT, Dry Weight Start Date: 07/12/21 Stop Date: 01/08/22 Status: Ordered ferrous sulfate 325 mg oral enteric coated tablet 325 mg, 1, tablet, By Mouth, 2 times a day, may take with food to minimize abdominal discomfort, # 180 tablet, Refills 1, Tot. Refills 1, Maintenance, 07/12/21 7:38:00 EST, Route to Pharmacy Electronically, [facility] #[id number], 148.4, cm, 05/13... Start Date: 07/12/21 Stop [...] Maintenance,12/27/20 11:32:00 EDT, Route to Pharmacy Electronically, [facility] #[id number], Partial fill upon patient request if the prescription is for a sc... Start Date: 12/27/20 Status: Ordered isosorbide mononitrate 30 mg oral tablet, extended release 30 mg, 1, tablet, By Mouth, Daily in AM, # 30 tablet, Refills 3, Tot. Refills 3, Maintenance, 04/05/21 13:22:00 EDT, Route to Pharmacy Electronically, [facility] #[id number], Partial fill upon patient request if the prescription is for a schedule... Start Date: 04/05/21 Stop Date: 08/03/21 Status: Ordered isosorbide mononitrate 30 mg oral tablet, extended release 30 mg, 1, tablet, By Mouth, Daily in AM, # 30 tablet, Refills 3, Tot. Refills 3, Maintenance, 04/06/21 12:52:00 EDT, Route to Pharmacy Electronically, [facility] #[id number], Partial fill upon patient request if the prescription is for a schedule... Start Date: 04/06/21 Status: Ordered levothyroxine 0.025 mg oral tablet 1 tablet, By Mouth, Daily, BUBBLE PACK PLEASE, # 90 tablet, 1 Refills, Maintenance, 07/12/21 7:38:00 EST, Tablet, [facility] #[id number], 148.4, cm, 06/01/21 8:57:00 EDT, Height, 97.3, kg, 06/01/21 8:57:00 EDT, Dry Weight Start Date: 07/12/21 Stop Date: 01/08/22 Status: Ordered lisinopril 20 mg oral tablet 20 mg, 1, tablet, By Mouth, Daily, BUBBLE PACK PLEASE, # 90 tablet, Refills 1, Tot. Refills 1, Maintenance, 06/12/21 9:50:00 EDT, Route to Pharmacy Electronically, [facility] #[id number], 148.4,cm, 06/01/21 8:57:00 EDT, Height, 97.3, kg, 2... Start Date: 06/12/21 Stop Date: 12/09/21 Status: Ordered LORazepam 1 mg oral tablet 1 tablet = 1 mg, By Mouth, Daily, PRN as needed for anxiety, covering provider, # 30 tablet, 0 Refills, Maintenance, 08/08/21 17:07:00 EST, Tablet, [facility] #[id number], 148.4, cm, 06/01/21 8:57:00 EDT, Height, 97.3, kg, 06/01/21 8:57:00 EDT, D... Start Date: 08/08/21 Stop Date: 09/07/21 Status: Ordered LORazepam 1 mg oral tablet 1 tablet = 1 mg, By Mouth, Daily, PRN as needed for anxiety, # 30 tablet, 0 Refills, Maintenance, 03/24/21 12:18:00 EDT, Tablet, [facility] #[id number], 148.4, cm, 02/16/21 15:09:00 EDT, Height,97.6, kg, [...] 3 Refills, Maintenance, 04/05/21 13:22:00 EDT, Tablet, [facility] #[id number], Part... Start Date: 04/05/21 Stop Date: 08/03/21 Status: Ordered nortriptyline 50 mg oral capsule 50 mg, 1, capsule, By Mouth, Daily, # 90 capsule, Refills 1, Tot. Refills 1, Maintenance, 07/12/21 7:37:00 EST, Route to Pharmacy Electronically, [facility] #[id number], 148.4, cm, 06/01/21 8:57:00 EDT, Height, 97.3, kg, 06/01/21 8:57:00 EDT, Dry... Start Date: 07/12/21 Stop Date: 01/08/22 Status: Ordered omeprazole 20 mg oral enteric coated capsule 1 capsule = 20 mg, By Mouth, 2 times a day, BUBBLE PACK PLEASE, # 60 capsule, 3 Refills, Maintenance, 04/21/21 17:24:00 EDT, EC Capsule, [facility] #[id number], 148.4, cm, 02/16/21 15:09:00 EDT,Height, 97.6, kg, 02/15/21 17:00:00 EDT, Dry Weight Start Date: 04/21/21 Stop Date: 08/19/21 Status: Ordered ProAir HFA 90 mcg/inh inhalation aerosol 2 puffs, Inhalation, 4 times a day, PRN Wheezing/Shortness of Breath, # 2 each, 3 Refills, Maintenance, 11/08/20 17:08:00 EDT, Aerosol, [facility] #[id number], Partial fill upon patient request if the prescription is for a schedule II opioid drug... Start Date: 11/08/20 Stop Date: 03/08/21 Status: Ordered Singulair 10 mg oral tablet 10 mg, 1, tablet, By Mouth, Daily in PM, BUBBLE PACK PLEASE, # 30 tablet, Refills 5, Tot. Refills 5, Maintenance, 03/09/21 15:06:00 EDT, Route to Pharmacy Electronically, [facility] #[id number],148.4, cm, 02/16/21 15:09:00 EDT, Height, 97.6, kg,... Start Date: 03/09/21 Stop Date: 09/05/21 Status: Ordered umeclidinium 62.5 mcg/inh inhalation powder 1 inhalation = 62.5 mcg, Inhalation, Every 24 hours, doses should be taken at least 24 hours apart,# 30 each, 11 Refills, Maintenance, 01/06/21 14:47:00 EDT, Powder, [facility] #[id number], Partial fill upon patient request if the [...] Numbness and tingling in hands(Confirmed) Active *[facility] [phone] CARE MANAG ER HELEN RENO(Confirmed) Active Pulmonary [...]
--- OUTSIDE RECORDS SUMMARY | 2023-03-06 14:46 | XMS_ITS | Continuity of Care Document ---
Author Name Unknown Organization [facility] Address [address] [place] [address]- Care Team Providers Care Steel Placer Name Role Phone Rj [employer]EL, Winsome Weiss Primary Care Physician Encounter [facility] Date(s): 10/18/21 - 10/27/[address] [address]- Encounter Diagnosis Chronic constipation(Final) - 10/18/21 Anasarca(Final) - 10/18/21 Discharge Disposition: A-D/C Home Attending Physician: Melanie Laureano MD Admitting Physician: Zuleika Philippe MD Referring Physician: Bijan LE, Vicente Whitaker Allergies, Adverse Reactions, Alerts Substance Reaction [...] 7 12/11/13 Gi sukhi 1Result Comment: [07/11/2018] [facility] 3Admin Note: given at [facility] in [place] 4Result Comment: [07/11/2018] [facility] 5Result Comment: [11/11/2015] given at [facility] [address] [place] [address] [phone] 6[facility] History[facility] 7Admin Note: boostrix vis [...] Replace Required Details, Route to Pharmacy Electronically, [facility] .. Start Date: 08/30/21 Status: Ordered escitalopram 20 mg oral tablet 1 tablet = 20 mg, By Mouth, Daily, # 90 tablet, 1 Refills, Maintenance, 07/12/21 7:37:00 EST, Tablet, [facility] #[id number], 148.4, cm, 06/01/21 8:57:00 EDT, Height, 97.3, kg, 06/01/21 8:57:00 EDT, Dry Weight Start Date: 07/12/21 Stop Date: 01/08/22 Status: Ordered ferrous sulfate 325 mg oral enteric coated tablet 325 mg, By Mouth, Daily, # 30 tablet, Refills 0, Tot. Refills 0, Maintenance, 10/27/21 13:45:00 EDT, Route to Pharmacy Electronically, [facility] #[id number], Partial fill upon patient request if the prescription is for a schedule II opioid drug.... Start Date: 10/27/21 Stop Date: 11/26/21 Status: Ordered furosemide 20 mg oral tablet 20 mg, 1, tablet, By Mouth, Daily, # 30 tablet, Refills 0, Tot. Refills 0, Maintenance, 10/27/21 13:45:00 EDT, Route to Pharmacy Electronically, [facility] #[id number], Partial fill upon patientrequest if the prescription is for a schedule II op... Start Date: 10/27/21 Stop Date: 11/26/21 Status: Ordered gabapentin 100 mg oral capsule 200 mg, 2, capsule, By Mouth, 3 times a day, # 180 capsule, Refills 3, Tot. Refills 3, Maintenance,12/27/20 11:32:00 EDT, Route to Pharmacy Electronically, [facility] #[id number], Partial fill upon patient request if the prescription is for a sc... Start Date: 12/27/20 Status: Ordered gabapentin 100 mg oral capsule 200 mg, Capsule, By Mouth, 10/27/21 15:00:00 EDT Start Date: 10/27/21 Stop Date: 10/27/21 Status: Completed isosorbide mononitrate 30 mg oral tablet, extended release 30 mg, 1, tablet, By Mouth, Daily in AM, # 30 tablet, Refills 3, Tot. Refills 3, Maintenance, 04/06/21 12:52:00 EDT, Route to Pharmacy Electronically, [facility] #[id number], Partial fill upon patient request if the prescription is for a schedule... Start Date: 04/06/21 Status: Ordered levothyroxine 0.025 mg oral tablet 1 tablet, By Mouth, Daily, BUBBLE PACK PLEASE, # 90 tablet, 1 Refills, Maintenance, 07/12/21 7:38:00 EST, Tablet, [facility] #[id number], 148.4, cm, 06/01/21 8:57:00 EDT, Height, 97.3, kg, 06/01/21 8:57:00 EDT, Dry Weight Start Date: 07/12/21 Stop Date: 01/08/22 Status: Ordered LORazepam 1 mg oral tablet 1 tablet = 1 mg, By Mouth, Daily, PRN as needed for anxiety, covering provider, # 30 tablet, 0 Refills, Maintenance, 08/08/21 17:07:00 EST, Tablet, [facility] #[id number], 148.4, cm, 06/01/21 8:57:00 EDT, Height, 97.3, kg, 06/01/21 8:57:00 EDT, D... Start Date: 08/08/21 Stop Date: 09/07/21 Status: Ordered metoprolol 25 mg oral tablet, extended release 25 mg, 1, tablet, By Mouth, Daily, # 90 tablet, Refills 3, Tot. Refills 3, Maintenance, 10/03/21 16:04:00 EST, Route to Pharmacy Electronically, [facility] #[id number], Partial fill upon patientrequest if the prescription is for a schedule II op... Start Date: 10/03/21 Status: Ordered MiraLax oral powder for reconstitution = 17 Gm, By Mouth, Daily, for 7 days, hold for diarrhea, # 7 each, 0 Refills, Acute 11/03/21 13:58:00 EDT, 10/27/21 13:58:00 EDT, [facility] #[id number], Partial fill upon patient request if theprescription is for a schedule II opioid drug., 17... Start Date: 10/27/21 Stop Date: 11/03/21 Status: Ordered nitroglycerin 0.4 mg sublingual tablet 1 tablet = 0.4 mg, Sublingual, Every 5 minutes, PRN as needed for chest pain, not to exceed 3 doses/15 min--if pain persists, seek medical attention, # 30 tablet, 3 Refills, Maintenance, 04/05/21 13:22:00 EDT, Tablet, [facility] #[id number], Part... Start Date: 04/05/21 Stop Date: 08/03/21 Status: Ordered nortriptyline 50 mg oral capsule 50 mg, 1, capsule, By Mouth, Daily, # 90 capsule, Refills 1, Tot. Refills 1, Maintenance, 07/12/21 7:37:00 EST, Route to Pharmacy Electronically, [facility] #[id number], 148.4, cm, 06/01/21 8:57:00 EDT, Height, 97.3, kg, 06/01/21 8:57:00 EDT, Dry... Start Date: 07/12/21 Stop Date: 01/08/22 Status: Ordered omeprazole 20 mg oral enteric coated capsule 1 capsule = 20 mg, By Mouth, 2 times a day, BUBBLE PACK PLEASE, # 60 capsule, 3 Refills, Maintenance, 08/24/21 9:30:00 EST, EC Capsule, [facility] #[id number], 148.4, cm, 08/15/21 9:27:00 EST, Height, 97.3, kg, 06/01/21 8:57:00 EDT, Dry Weight Start Date: 08/24/21 Stop Date: 12/22/21 Status: Ordered Senna 8.6 mg oral tablet 17.2 mg, 2, tablet, By Mouth, Daily at bedtime, hold for loose stool for 7 days, # 14 tablet, Refills 0, Tot. Refills 0, Acute, 11/03/21 13:45:00 EDT, 10/27/21 13:45:00 EDT, Route to Pharmacy Electronically, [facility] #[id number] Tablet, Partial... Start Date: 10/27/21 Stop Date: 11/03/21 Status: Ordered Singulair 10 mg oral tablet 10 mg, 1, tablet, By Mouth, Daily in PM, BUBBLE PACK PLEASE, # 30 tablet, Refills 5, Tot. Refills 5, Maintenance, 10/14/21 18:18:00 EST, Route to Pharmacy Electronically, [facility] #[id number],148.4, cm, 10/05/21 10:50:00 EST, Height, 104.5, kg... Start Date: 10/14/21 Stop Date: 04/12/22 Status: Ordered spironolactone 25 mg oral tablet 50 mg, 2, tablet, By Mouth, Daily, # 60 tablet, Refills 0, Tot. Refills 0, Maintenance, 10/27/21 13:46:00 EDT, Route to Pharmacy Electronically, [facility] #[id number], Partial fill upon patientrequest if the prescription is for a schedule II op... Start Date: 10/27/21 Stop Date: 11/26/21 Status: Ordered trospium 60 mg oral capsule, extended release 1 capsule = 60 mg, By Mouth, Daily, # 30 capsule, 5 Refills, Maintenance, 09/29/21 15:29:00 EST, CRCapsule, [facility] #[id number], Partial fill upon patient request if the prescription is for a schedule II opioid drug., 148.4, cm, 08/15/21 9:27... Start Date: 09/29/21 Status: Ordered umeclidinium 62.5 mcg/inh inhalation powder 1 inhalation = 62.5 mcg, Inhalation, Every 24 hours, doses should be taken at least 24 hours apart,# 30 each, 11 Refills, Maintenance, 01/06/21 14:47:00 EDT, Powder, [facility] #[id number], Partial fill upon patient request if the [...] Active Cirrhosis of liver with ascites(Confirmed) Active Depression(Confirmed) Active Dyspnea on exertion(Confirmed) Active Easy bruising(Confirmed) Active Bilateral leg edema(Confirmed) Active Abdominal pain, generalized(Confirmed) Active Generalized anxiety disorder(Confirmed) Active GERD - Gastro-esophageal ref lux disease(Confirmed) Active POP-Q stage 2 rectocele(Confirmed) Active Mite allergy(Confirmed) 3 11/08/14 Active Hypertension(Confirmed) 10/27/12 Active HTN (hypertension)(Confirmed) Active Gastric hyperplastic polyp(Confirmed) 11/21/20 Active Hypothyroidism(Confirmed) Active Fecal incontinence(Confirmed) Active Iron deficiency(Confirmed) Active Poor conditioning(Confirmed) Active Anxiety and depression(Confirmed) Active Mixed incontinence(Confirmed) Active Morbid obesity(Confirmed) Active Myocardial bridge(Confirmed) Active Ovarian tumor of borderline malignancy(Confirmed) 4 Active Osteoporosis(Confirmed) Active Numbness and tingling in hands(Confirmed) Active *[facility] [phone] CARE MANAG ER HELEN R[place](Confirmed) Active Hepatitis C virus infection resolved after antiviral drug therapy(Confirmed) Active Portal hypertension with eso phageal varices(Confirmed) Active Severe obesity(Confirmed) Active DM2 (diabetes mellitus, type 2)(Confirmed) Active Urge urinary incontinence(Confirmed) Active 1tx with apc today due to bleeding. 2possibly Type III 33+ 4s/p bilateral salpingo-oophrectomy Results Orders for Microbiology Reports Name Date Sterile Body Fluid Culture W/ Gram Smear 10/20/21 Fungal Culture, Nonrespiratory 10/20/21 Anaerobic Culture 10/20/21 Microbiology Reports TEST:Anaerobic Culture STATUS:Auth (Verified) BODY SITE: SOURCE:BODY F COLLECTED DATE/TIME:10/20/21 12:30 PM Anaerobic Culture SPECIMEN DESCRIPTION : BODY FLUID PERITONEUM SPECIAL REQUESTS : NONE CULTURE : NO ANAEROBES ISOLATED REPORT STATUS : FINAL 10/25/2021 TEST:Sterile Fluid Culture STATUS:Auth (Verified) BODY SITE: SOURCE:ASCITI COLLECTED DATE/TIME:10/20/21 12:30 PM Sterile Fluid Culture SPECIMEN DESCRIPTION : ASCITIC FLUID PERITONEAL FLUID SPECIAL REQUESTS : NONE GRAM STAIN : 1+ WHITE BLOOD CELLS NO ORGANISMS SEEN CULTURE : NO GROWTH 2 DAYS REPORT STATUS : FINAL 10/22/2021 TEST:Fungal Culture, Non-Respiratory STATUS:Unauthenticated BODY SITE: SOURCE:BODY F COLLECTED DATE/TIME:10/20/21 12:30 PM Fungal Culture, Non-Respiratory SPECIMEN DESCRIPTION : BODY FLUID PERITONEUM SPECIAL REQUESTS : NONE DIRECT EXAM : NO FUNGAL ELEMENTS OBSERVED CULTURE : NO FUNGI ISOLATED AFTER 6 DAYS REPORT STATUS : PRELIMINARY REPORT Radiology Reports * Exam Date Time Procedure Performing Provider Status 10/25/21 11:55 AM Small Bowel Series Cristy Meija; Aut h (Verified) Notes: (Small Bowel Series) Reason For Exam: abdominal pain worse with food intake;Other: RESULT: Small Bowel Series Small bowel series: HISTORY: Abdominal pain worse with food intake. Question obstruction. COMPARISON: May, TECHNIQUE: Dye Range Operator Cloth film and small bowel follow-through. Fluoroscopy time 39 seconds. FINDINGS: By one hour and 45 minutes after starting, contrast had traversed the entire small bowel and entered the colon. All small bowel loops appear normal in caliber. The folds appear prominent in the proximal small bowel, question significance. The contrast became quite dilute and thus details difficult to visualize, particularly in the rightlower quadrant, thus the spot compression views here are unremarkable although small bowel loops not well seen due to the diluting of contrast and overlapping loops. IMPRESSION: No evidence of small bowel obstruction. Proximal small bowel folds appear prominent. WSN: [id number] Ordering Physician: Nitin Buchanan Dictated By: Sanket Naylor MD Dictated Date/Time: 10/25/21 12:08 p Reviewed By: Sanket Naylor MD Signed By: Sanket Naylor MD Signed Date/Time: 10/25/21 12:08 pm Transcribed By: RONNIE Transcribed Date/Time: 10/25/21 12:02 pm * Exam Date Time Procedure Performing Provider Status 10/18/21 3:29 PM Chest 2 Views Frontal and Lat Leonardo Grant (Verified) Notes: (Chest 2 Views Frontal and Lat) Reason For Exam: Wheezing, SOB x 5 days;Shortness of Breath RESULT: Chest 2 Views Frontal and Lat Chest 2 Views Frontal and Lat Hx of Present Illness: SOB over the past week, hx of asthma with no relief from inhaler and nebulizer. Also reporting chest and abdominal pain; Reason: Shortness of Breath; Wheezing, SOB x 5 days; Clinical Question(s): Asthma; CHF (HX Both COPD and CHF) COMPARISON: November, FINDINGS: Lungs clear, no infiltrates. CP angles sharp. Cardiomegaly. Vascularity, hilar and mediastinal regions unremarkable. Bony thorax and surrounding soft tissues unremarkable. IMPRESSION: Cardiomegaly. WSN: [id number] Ordering Physician: Teri Martin Dictated By: Sanket Naylor MD Dictated Date/Time: 10/18/21 3:35 pm Reviewed By: Sanket Naylor MD Signed By: Sanket Naylor MD Signed Date/Time: 10/18/21 3:35 pm Transcribed By: RONNIE Transcribed Date/Time: 10/18/21 3:32 pm Vital Signs Most recent to oldest [Reference Range]: 1 2 3 Height 150 cm (10/27/21 5:11 AM) 150 cm (10/26/21 8:37 PM) 150 cm (10/26/21 5:36 PM) Weight 104.4 kg (10/27/21 6:59 AM) 105.8 kg (10/26/21 5:18 AM) 105.6 kg (10/25/21 7:41 AM) Oxygen Saturation [94-100 %] 96 % (10/27/21 12:00 PM) 95 % (10/27/21 9:00 AM) 94 % (10/27/21 5:11 AM) Pulse Rate [55-90 bpm] 107 bpm *H* (10/27/21 12:00 PM) 102 bpm *H* (10/27/21 9:00 AM) 97 bpm *H* (10/27/21 5:11 AM) Body Mass Index [18.5-24.99] 47.33 *>HHI* (10/23/21 11:05 AM) 47.47 *>HHI* (10/18/21 8:20 PM) 47.87 *>HHI* (10/18/21 12:16 PM) Blood Pressure [90-138/55-84 mm Hg] 149/72mm Hg *H* (10/27/21 12:00 PM) 110/52mm Hg (10/27/21 9:00 AM) 131/75mm Hg (10/27/21 5:11 AM) Respiratory Rate [16-30 br/min] 18 br/min (10/27/21 3:23 PM) 18 br/min (10/27/21 2:23 PM) 18 br/min (10/27/21 12:00 PM) Temperature [96.8-100.4 DegF] 97.2 DegF (10/27/21 12:00 PM) 97.2 DegF (10/27/21 9:00 AM) 98 DegF (10/27/21 5:11 AM) Liters per Minute 0 L/min (10/20/21 5:00 AM) 0 L/min (10/19/21 7:00 PM) 0 L/min (10/19/21 5:00 AM) Mode of Delivery (Oxygen) Room air (10/27/21 12:00 PM) Room air (10/27/21 9:00 AM) Room air (10/27/21 5:11 AM) Blood pressure sites Arm, right (10/27/21 12:00 PM) Arm, right (10/27/21 9:00 AM) Arm, right (10/27/21 5:11 AM) Temperature Route Oral (10/27/21 12:00 PM) Oral (10/27/21 9:00 AM) Oral (10/27/21 5:11 AM) Dry Weight 106.8 kg (10/18/21 8:20 PM) 107.7 kg (10/18/21 12:19 PM) 107.7 kg (10/18/21 12:16 PM) Weight Obtained Via Standing scale (10/27/21 6:59 AM) Standing scale (10/26/21 5:18 AM) Standing scale (10/25/21 7:41 AM) Dry Weight Obtained Via Standing scale (10/18/21 8:20 PM) Standing scale (10/18/21 12:16 PM) Social History Social History Type Response Smoking Status Former smoker; Tobac co user in household: No; Type: Cigarettes; Tobacco use times per day: up to 2 ppd; Started at age: 16; Stopped at age: 48; entered on: 11/08/14 Sex Female
--- OUTSIDE RECORDS SUMMARY | 2023-03-06 14:46 | XMS_ITS | Continuity of Care Document ---
Author Name Unknown Organization [facility] [employer] Address [address] [place] [address]- Care Team Providers Care Cook Restaurant Name Role Phone Rj HAMILTON, Winsome Weiss Primary Care Physician [phone] [id number] Date[facility]s): [facility]21[facility] - 09/13/21 [facility] [employer] [facility] [address] [place], [place] [address] Attending Physician: Abbe LE, Sandra Mensah Admitting Physician: Sandra Mcadams MD Referring Physician: Winsome De La Rosa [...] sukhi 1Result Comment: [07/11/2018] [facility] 3Admin Note: given at [facility] in [place] 4Result Comment: [07/11/2018] [facility] 5Result Comment: [11/11/2015] given at [facility] [address] [place] [address] [phone] 6[facility] History[facility] 7Admin Note: [facility] 12-28-2012 Medications albuterol 0.083% inhalation solution 3 mL = 2.5 mg, Inhalation, Every 6 hours, PRN Wheezing/Shortness of Breath, # 60 each, 6 Refills, Maintenance, 10/29/14 10:00:25, Solution Start Date: 10/29/14 Status: Ordered azelastine 137 mcg/inh (0.1%) nasal spray 2 sprays, Nares, Both, Daily, PRN Other Allergies, # 30 mL, 11 Refills, Maintenance, 01/06/21 14:51:00 EDT, [place], [facility] #[id number], Partial fill upon patient request if the prescriptionis for a schedule II opioid drug., 2 sprays Nares,... Start Date: 01/06/21 Status: Ordered dicyclomine 10 mg oral capsule 1 capsule = 10 mg, By Mouth, 4 times a day, PRN Pain , Moderate, # 28 capsule, 0 Refills, Maintenance, 05/11/21 15:51:00 EDT, Capsule, [facility] #[id number], Partial fill upon patient request if the prescription is for a schedule II opioid drug.... Start Date: 05/11/21 Stop Date: 05/18/21 Status: Ordered docusate sodium 100 mg oral capsule See Instructions, PRN, TAKE ONE CAPSULE BY MOUTH TWICE DAILY, # 60 capsule, Refills 3, Tot. Refills3, Soft Stop, as needed for constipation, 08/30/21 12:50:00 EST, Instructions Replace Required Details, Route to Pharmacy Electronically, [facility] Start Date: 08/30/21 Status: Ordered escitalopram 20 mg oral tablet 1 tablet = 20 mg, By Mouth, Daily, # 90 tablet, 1 Refills, Maintenance, 07/12/21 7:37:00 EST, Tablet, [facility] #[id number], 148.4, cm, 06/01/21 8:57:00 EDT, Height, 97.3, kg, 06/01/21 8:57:00 EDT, Dry Weight Start Date: 07/12/21 Stop Date: 01/08/22 Status: Ordered ferrous sulfate 325 mg oral enteric coated tablet 325 mg, 1, tablet, By Mouth, 2 times a day, may take with food to minimize abdominal discomfort, # 180 tablet, Refills 1, Tot. Refills 1, Maintenance, 07/12/21 7:38:00 EST, Route to Pharmacy Electronically, [facility] #[id number], 148.4, cm, 05/13... Start Date: 07/12/21 Stop [...] Maintenance,12/27/20 11:32:00 EDT, Route to Pharmacy Electronically, [facility] #[id number], Partial fill upon patient request if the prescription is for a sc... Start Date: 12/27/20 Status: Ordered isosorbide mononitrate 30 mg oral tablet, extended release 30 mg, 1, tablet, By Mouth, Daily in AM, # 30 tablet, Refills 3, Tot. Refills 3, Maintenance, 04/05/21 13:22:00 EDT, Route to Pharmacy Electronically, [facility] #[id number], Partial fill upon patient request if the prescription is for a schedule... Start Date: 04/05/21 Stop Date: 08/03/21 Status: Ordered isosorbide mononitrate 30 mg oral tablet, extended release 30 mg, 1, tablet, By Mouth, Daily in AM, # 30 tablet, Refills 3, Tot. Refills 3, Maintenance, 04/06/21 12:52:00 EDT, Route to Pharmacy Electronically, [facility] #[id number], Partial fill upon patient request if the prescription is for a schedule... Start Date: 04/06/21 Status: Ordered levothyroxine 0.025 mg oral tablet 1 tablet, By Mouth, Daily, BUBBLE PACK PLEASE, # 90 tablet, 1 Refills, Maintenance, 07/12/21 7:38:00 EST, Tablet, [facility] #[id number], 148.4, cm, 06/01/21 8:57:00 EDT, Height, 97.3, kg, 06/01/21 8:57:00 EDT, Dry Weight Start Date: 07/12/21 Stop Date: 01/08/22 Status: Ordered lisinopril 20 mg oral tablet 20 mg, 1, tablet, By Mouth, Daily, BUBBLE PACK PLEASE, # 90 tablet, Refills 1, Tot. Refills 1, Maintenance, 08/30/21 12:48:00 EST, Route to Pharmacy Electronically, [facility] #[id number], 148.4, cm, 08/15/21 9:27:00 EST, Height, 97.3, kg, 06/01/... Start Date: 08/30/21 Stop Date: 02/26/22 Status: Ordered LORazepam 1 mg oral tablet 1 tablet = 1 mg, By Mouth, Daily, PRN as needed for anxiety, covering provider, # 30 tablet, 0 Refills, Maintenance, 08/08/21 17:07:00 EST, Tablet, [facility] #[id number], 148.4, cm, 06/01/21 8:57:00 EDT, Height, 97.3, kg, 06/01/21 8:57:00 EDT, D... Start Date: 08/08/21 Stop Date: 09/07/21 Status: Ordered LORazepam 1 mg oral tablet 1 tablet = 1 mg, By Mouth, Daily, PRN as needed for anxiety, # 30 tablet, 0 Refills, Maintenance, 03/24/21 12:18:00 EDT, Tablet, [facility] #[id number], 148.4, cm, 02/16/21 15:09:00 EDT, Height,97.6, kg, [...] 3 Refills, Maintenance, 04/05/21 13:22:00 EDT, Tablet, [facility] #[id number], Part... Start Date: 04/05/21 Stop Date: 08/03/21 Status: Ordered nortriptyline 50 mg oral capsule 50 mg, 1, capsule, By Mouth, Daily, # 90 capsule, Refills 1, Tot. Refills 1, Maintenance, 07/12/21 7:37:00 EST, Route to Pharmacy Electronically, [facility] #[id number], 148.4, cm, 06/01/21 8:57:00 EDT, Height, 97.3, kg, 06/01/21 8:57:00 EDT, Dry... Start Date: 07/12/21 Stop Date: 01/08/22 Status: Ordered omeprazole 20 mg oral enteric coated capsule 1 capsule = 20 mg, By Mouth, 2 times a day, BUBBLE PACK PLEASE, # 60 capsule, 3 Refills, Maintenance, 08/24/21 9:30:00 EST, EC Capsule, [facility] #[id number], 148.4, cm, 08/15/21 9:27:00 EST, Height, 97.3, kg, 06/01/21 8:57:00 EDT, Dry Weight Start Date: 08/24/21 Stop Date: 12/22/21 Status: Ordered ProAir HFA 90 mcg/inh inhalation aerosol 2 puffs, Inhalation, 4 times a day, PRN Wheezing/Shortness of Breath, # 2 each, 3 Refills, Maintenance, 11/08/20 17:08:00 EDT, Aerosol, [facility] #[id number], Partial fill upon patient request if the prescription is for a schedule II opioid drug... Start Date: 11/08/20 Stop Date: 03/08/21 Status: Ordered Singulair 10 mg oral tablet 10 mg, 1, tablet, By Mouth, Daily in PM, BUBBLE PACK PLEASE, # 30 tablet, Refills 5, Tot. Refills 5, Maintenance, 03/09/21 15:06:00 EDT, Route to Pharmacy Electronically, [facility] #[id number],148.4, cm, 02/16/21 15:09:00 EDT, Height, 97.6, kg,... Start Date: 03/09/21 Stop Date: 09/05/21 Status: Ordered umeclidinium 62.5 mcg/inh inhalation powder 1 inhalation = 62.5 mcg, Inhalation, Every 24 hours, doses should be taken at least 24 hours apart,# 30 each, 11 Refills, Maintenance, 01/06/21 14:47:00 EDT, Powder, [facility] #[id number], Partial fill upon patient request if the [...] and tingling in hands(Confirmed) Active *[facility] [phone] CARE MANAG ER HELEN MGJUAN LUIS(Confirmed) Active [...]
--- OUTSIDE RECORDS SUMMARY | 2023-03-06 14:46 | XMS_ITS | Continuity of Care Document ---
Author Name Unknown Organization [facility] Jyoti Mejia Surger y Address [address], [address] [place] [address]- Care Team Providers Care Data Migration Lead Name Role Phone Rj DIRECTOR OF ACQUISITIONS, Winsome M Primary Care Physician Encounter [facility] NBR [id number] Date(s): 08/31/20 - 09/07/20 [facility] Jyoti Roberto Surgery [address], [address] [place] [address]- Attending Physician: Rossy Mcclure DO Referring Physician: Not on Staff, Referring MD [...] 7 12/11/13 Gi sukhi 1Result Comment: [07/11/2018] [facility] 2Result Comment: [11/11/2015] given at [facility] [address] [place] [address] [phone] 3Result Comment: [07/11/2018] [facility] 5Admin Note: given at [facility] in [place], [place] 6Location History[facility] 7Admin Note: boostrix vis 12-28-2012 Medications albuterol [...] 06/21/20 16:00:00 EST, Route to Pharmacy Electronically, [email or web address] #[id number], 149.9, cm, 06/21/20 13:54:00 EST, Height, 103.8, [...] 5 Refills, Maintenance, 07/22/20 9:23:00 EST, Tablet, [email or web address] #[id number], 153, cm, 07/22/20 9:04:00 EST, Height, 106, kg, 07/08/20 13:49:00 EST, Dry Weight Start Date: 07/22/20 Stop Date: 01/18/21 Status: Ordered ferrous sulfate 325 mg oral enteric coated tablet 325 mg, 1, tablet, By Mouth, 2 times a day, # 180 tablet, Refills 1, Tot. Refills 1, Maintenance, 12/24/18 14:50:03 EDT, Route to Pharmacy Electronically, [id number], [email or web address] Start Date: 12/24/18 Stop Date: 06/22/19 Status: Ordered Flovent HFA 220 mcg/inh inhalation aerosol 2 puffs, Inhalation, 2 times a day, # 1 each, 6 Refills, Maintenance, 05/30/20 10:57:00 EDT, Aerosol, [facility] #[id number], 149.9, cm, 05/30/20 10:53:00 EDT, Height, 103.8, kg, 03/07/20 10:17:00 EDT, Dry Weight Start Date: 05/30/20 Stop Date: 12/26/20 Status: Ordered gabapentin 100 mg oral capsule 100 mg, 1, capsule, By Mouth, 2 times a day, BUBBLE PACK PLEASE, # 60 capsule, Refills 3, Tot. Refills 3, Maintenance, 07/22/20 9:24:00 EST, Route to Pharmacy Electronically, [email or web address] #[id number], 153, cm, 07/22/20 9:04:00 EST, Height, 106, kg,... Start Date: 07/22/20 Stop Date: 11/19/20 Status: Ordered levothyroxine 0.025 mg oral tablet 1 tablet, By Mouth, Daily, BUBBLE PACK PLEASE, # 30 tablet, 5 Refills, Maintenance, 07/22/20 9:24:00 EST, Tablet, [email or web address] #[id number], 153, cm, 07/22/20 9:04:00 EST, Height, 106, kg, 07/08/2013:49:00 EST, Dry Weight Start Date: 07/22/20 Stop Date: 01/18/21 Status: Ordered lisinopril 20 mg oral tablet 20 mg, 1, tablet, By Mouth, Daily, BUBBLE PACK PLEASE, # 30 tablet, Refills 5, Tot. Refills 5, Maintenance, 04/27/20 9:21:00 EDT, Route to Pharmacy Electronically, [facility] #[id number], 149.9,cm, 04/27/20 9:00:00 EDT, Height, 103.8, kg, 03/07/... Start Date: 04/27/20 Stop Date: 10/24/20 Status: Ordered LORazepam 1 mg oral tablet 1 tablet = 1 mg, By Mouth, Daily, PRN as needed for anxiety, # 30 tablet, 0 Refills, Maintenance, 07/22/20 9:23:00 EST, Tablet, [facility] #[id number], 153, cm, 07/22/20 9:04:00 EST, Height, 106, kg, 07/08/20 13:49:00 EST, Dry Weight Start Date: 07/22/20 Stop Date: 08/21/20 Status: Ordered nortriptyline 50 mg oral capsule 50 mg, 1, capsule, By Mouth, Daily, BUBBLE PACK PLEASE, # 30 capsule, Refills 6, Tot. Refills 6, Maintenance, 03/25/20 19:21:00 EDT, Route to Pharmacy Electronically, [facility] #[id number], 149.9, cm, 03/07/20 10:17:00 EDT, Height, 103.8, kg, 07... Start Date: 03/25/20 Stop Date: 10/21/20 Status: Ordered nystatin topical 480147 u/gm ointment 1 application, Topically, 3 times [...] Refills, Maintenance, 10/24/20 9:19:00 EDT, EC Capsule, [facility] #[id number], 149.9, cm, 06/14/20 14:58:00 EST, Height, 101, kg, 06/07/20 10:02:00 EDT, Dry Weight Start Date: 10/24/20 Stop Date: 02/21/21 Status: Ordered Singulair 10 mg oral tablet 10 mg, 1, tablet, By Mouth, Daily in PM, BUBBLE PACK PLEASE, # 30 tablet, Refills 5, Tot. Refills 5, Maintenance, 07/22/20 9:24:00 EST, Route to Pharmacy Electronically, [facility] #60020, 153, cm, 07/22/20 9:04:00 EST, Height, 106, [...] Numbness and tingling in hands(Confirmed) Active *[facility] [phone] CARE MANAG ER HELEN RENO(Confirmed) Active Rib pain on left side(Confirmed) Active Pain in right shoulder(Confirmed) Active Urge urinary incontinence(Confirmed) Active 1tx with apc today due to bleeding. 2normal PFT's 11/22/14 r/o COPD 3childhood onset 4possibly Type III 53+ 6s/p bilateral salpingo-oophrectomy Vital Signs Most recent to oldest [Reference Range]: 1 Height 153 cm (08/31/20 12:59 PM) Weight 101.8 kg (08/31/20 12:59 PM) Oxygen Saturation [94-100 %] 94 % (08/31/20 12:59 PM) Pulse Rate [55-90 bpm] 88 bpm (08/31/20 12:59 PM) Body Mass Index [18.5-24.99] 43.49 *>HHI* (08/31/20 12:59 PM) Social History Social History Type Response Smoking Status Former smoker; Tobac co user in household: No; Type: Cigarettes; Tobacco use times per day: up to 2 ppd; Started at age: 16; Stopped at age: 48; entered on: 11/08/14 Sex
--- OUTSIDE RECORDS SUMMARY | 2023-03-06 14:46 | XMS_ITS | Continuity of Care Document ---
Author Name Unknown Organization [facility] [place] Address [address] [place] [address]- Care Team Providers Care Geoscience Specialist Name Role Phone Rj LANGUAGE INTERPRETER, Winsome M Primary Care Physician Encounter [facility] Date(s): 02/21/22 - 04/26/22 [facility] [place] [address] [place] [address]- Attending Physician: Nitin Buchanan MD Allergies, Adverse Reactions, Alerts Substance Reaction [...] Note: given at [facility] in [place] 4Result Comment: [07/11/2018] [facility] 5Result Comment: [11/11/2015] given at [facility] [address] [place] [address] [phone] 6[facility] 7Admin Note: boostrix vis 12-28-2012 Medications Breo Ellipta 200 mcg-25 mcg/inh inhalation powder 1 puffs, Inhalation, Daily, # 1 each, 11 Refills, Maintenance, 12/20/21 15:11:00 EDT, Powder, [facility] #[id number], Partial fill upon patient request if the [...] 01/19/22 19:16:00 EDT, Route to Pharmacy Electronically, [facility] #[id number], Partial fill upon patientrequest if the prescription is for a schedule II op... Start Date: 01/19/22 Status: Ordered docusate sodium 100 mg oral capsule 100 mg, 1, capsule, By Mouth, Every 12 hours, PRN, # 60 capsule, Refills 0, Tot. Refills 0, Maintenance, Constipation, 04/23/22 16:44:00 EDT, Route to Pharmacy Electronically, [facility] #[id number], Partial fill upon patient request if the presc... Start Date: 04/23/22 Stop Date: 05/23/22 Status: Ordered docusate sodium 100 mg oral capsule TAKE 1 CAPSULE BY MOUTH TWICE DAILY NEEDED FOR CONSTIPATION Start Date: 02/20/22 Status: Ordered escitalopram 20 mg oral tablet 1 tablet = 20 mg, By Mouth, Daily, # 90 tablet, 1 Refills, Maintenance, 11/29/21 7:27:00 EDT, Tablet, [facility] #[id number], 150, cm, 11/03/21 13:46:00 EDT, Height, 100.8, [...] 12/01/21 16:35:00 EDT, Route to Pharmacy Electronically, [facility] #[id number], Partial fill upon patient request if the prescription is for a sched... Start Date: 12/01/21 Stop Date: 05/30/22 Status: Ordered gabapentin 100 mg oral capsule 200 mg, 2, capsule, By Mouth, 3 times a day, 2 capsules to equal 200 mg three times a day., # 180 capsule, Refills 3, Tot. Refills 3, Maintenance, 12/05/21 20:30:00 EDT, Route to Pharmacy Electronically, [facility] #[id number], Partial fill upon... Start Date: 12/05/21 Status: [...] mL, 3 Refills, Maintenance, 11/29/21 21:45:00 EDT, [facility] #[id number], Partial fill upon patient request if the prescriptionis for a schedule II opioid drug., 150, cm, ... Start Date: 11/29/21 Status: Ordered levothyroxine 0.025 mg oral tablet 1 tablet, By Mouth, Daily, # 90 tablet, 1 Refills, Maintenance, 11/29/21 7:27:00 EDT, Tablet, [facility] #78057, 150, cm, 11/03/21 13:46:00 EDT, Height, 100.8, [...] 0 Refills, Maintenance, 03/01/22 11:00:00 EDT, Tablet, [facility], Partial fill upon patient request [...] 3 Refills, Maintenance, 04/05/21 13:22:00 EDT, Tablet, [facility] #77471, Part... Start Date: 04/05/21 Stop Date: 08/03/21 Status: Ordered NovoLOG FlexPen 100 units/mL injectable solution See Instructions, Subcutaneous Infusion 3 times a day before meals. Sliding scale:: 150-200 2 [id number] 4 UNITS 300-350 6 UNITS, # 3 mL, 3 Refills, Maintenance, 12/01/21 11:54:00 EDT, [facility] #[id number], Partial fill upon patient requ... Start Date: [...] 01/19/22 13:52:00 EDT, Route to Pharmacy Electronically, [facility] #[id number], Partial fill upon patient request... Start Date: [...] 10/14/21 18:18:00 EST, Route to Pharmacy Electronically, [facility] #[id number],148.4, cm, 10/05/21 10:50:00 EST, Height, 104.5, kg... Start Date: 10/14/21 Stop Date: 04/12/22 Status: Ordered trospium 60 mg oral capsule, extended release 1 capsule = 60 mg, By Mouth, Daily in AM, # 90 capsule, 0 Refills, Maintenance, 04/04/22 8:37:00 EDT, [facility] #12900, Partial fill upon patient request if the [...] 11 Refills, Maintenance, 03/15/22 10:32:00 EDT, Powder, [facility] #99936, Partial fill upon patient request if the [...] and tingling in hands(Confirmed) Active *[facility] [phone] CARE MANAG ER HELEN ROWDY(Confirmed) Active Hepatitis [...] Name: Winsome De La Rosa NP Address: [address] [place] [address]
--- OUTSIDE RECORDS SUMMARY | 2023-03-06 14:46 | XMS_ITS | Continuity of Care Document ---
Author Name Unknown Organization [facility] Address [address] [place] [address]- Care Team Providers Care Oil Well Engineer Name Role Phone Rj HAMILTON, Winsome Weiss Primary Care Physician [phone] Encounter [facility] Date(s): 12/31/19 - 01/07/[address] [address]- [facility] Attending Physician: Nilsa LE, Blaze Kevin Referring [...] [07/11/2018] [facility] 2Result Comment: [11/11/2015] given at [facility] [address] [place] [address] [phone] 3Result Comment: [07/11/2018] [facility] 5Admin Note: given at [facility] in [place], [place] 6Location History[facility] 7Admin Note: boostrix [...] 10/21/19 14:37:00 EDT, Route to Pharmacy Electronically, [facility] #[id number], 149.9, cm, 08/10/19 9:46:00 EST, Height, 94.4... [...] 6 Refills, Maintenance, 10/21/19 14:37:00 EDT, Tablet, [facility] #[id number], 149.9, cm, 08/10/19 9:46:00 EST, Height, 94.4, kg, 05/21/19 10:46:00 EDT, Dry Weight Start Date: 10/21/19 Status: Ordered FeroSul 325 mg oral tablet 1 tablet = 325 mg, By Mouth, 2 times a day, BUBBLE PACK PLEASE, # 60 tablet, 5 Refills, Soft Stop, 10/21/19 14:38:00 EDT, [facility] #41442, 149.9, cm, 08/10/19 9:46:00 EST, Height, 94.4, kg, 05/21/19 10:46:00 EDT, Dry Weight Start Date: 10/21/19 Stop Date: 04/18/20 Status: Ordered ferrous sulfate 325 mg oral enteric coated tablet 325 mg, 1, tablet, By Mouth, 2 times a day, # 180 tablet, Refills 1, Tot. Refills 1, Maintenance, 12/24/18 14:50:03 EDT, Route to Pharmacy Electronically, [id number], [facility] Start Date: 12/24/18 Stop Date: 06/22/19 [...] 12/04/19 14:46:00 EDT, Route to Pharmacy Electronically, [facility] #[id number], 149.9, cm, 08/10/19 9:46:00 EST, Height, 94.4,... Start Date: 12/04/19 Stop Date: 01/03/20 Status: Ordered levothyroxine 0.025 mg oral tablet 1 tablet, By Mouth, Daily, BUBBLE PACK PLEASE, # 30 tablet, 5 Refills, Maintenance, 10/21/19 14:40:00 EDT, Tablet, [facility] #11774, 149.9, cm, 08/10/19 9:46:00 EST, Height, 94.4, kg, 05/21/19 10:46:00 EDT, Dry Weight Start Date: 10/21/19 Stop Date: 04/18/20 Status: Ordered lisinopril 20 mg oral tablet 20 mg, 1, tablet, By Mouth, Daily, BUBBLE PACK PLEASE, # 30 tablet, Refills 5, Tot. Refills 5, Maintenance, 10/21/19 14:40:00 EDT, Route to Pharmacy Electronically, [facility] #[id number], 149.9, cm, 08/10/19 9:46:00 EST, Height, 94.4, kg, ... Start Date: 10/21/19 Stop Date: 04/18/20 Status: Ordered LORazepam 1 mg oral tablet 1 tablet = 1 mg, By Mouth, Daily, PRN as needed for anxiety, # 30 tablet, 0 Refills, Maintenance, 12/17/19 15:01:00 EDT, Tablet, [facility] #[id number], 149.9, cm, 12/17/19 13:34:00 EDT, Height,94.4, kg, 05/21/19 10:46:00 EDT, Dry Weight Start Date: 12/17/19 Stop Date: 01/16/20 Status: Ordered nortriptyline 50 mg oral capsule 50 mg, 1, capsule, By Mouth, Daily, BUBBLE PACK PLEASE, # 30 capsule, Refills 0, Tot. Refills 0, Maintenance, 12/04/19 14:46:00 EDT, Route to Pharmacy Electronically, [facility] #60581, 149.9, cm, 08/10/19 9:46:00 EST, Height, 94.4, kg, 05/12... Start Date: 12/04/19 Stop Date: 01/03/20 Status: Ordered nystatin topical 039337 u/gm ointment 1 application, Topically, 3 times [...] Refills, Maintenance, 10/21/19 14:42:00 EDT, EC Capsule, [facility] #[id number], 149.9, cm, 08/10/19 9:46:00 EST, Height, 94.4, kg, 05/21/19 10:46:00 EDT, Dry Weight Start Date: 10/21/19 Stop Date: 04/18/20 Status: Ordered Singulair 10 mg oral tablet 10 mg, 1, tablet, By Mouth, Daily in PM, BUBBLE PACK PLEASE, # 30 tablet, Refills 5, Tot. Refills 5, Maintenance, 10/21/19 14:41:00 EDT, Route to Pharmacy Electronically, [facility] #[id number],149.9, cm, 08/10/19 9:46:00 EST, Height, 94.4, kg,... [...] Numbness and tingling in hands(Confirmed) Active *[facility] [phone] CARE MANAG ER HELEN RENO(Confirmed) Active Rib pain on left side(Confirmed) Active Pain in right shoulder(Confirmed) Active Urge urinary incontinence(Confirmed) Active 1tx with apc today due to bleeding. 2normal PFT's 11/22/14 r/o COPD 3childhood onset 4possibly Type III 53+ 6s/p bilateral salpingo-oophrectomy Vital Signs Most recent to oldest [Reference Range]: 1 Height 149.9 cm (12/31/19 1:16 PM) Pulse Rate [55-90 bpm] 98 bpm *H* (12/31/19 1:16 PM) Blood Pressure [90-138/55-84 mm Hg] 157/ 60mm Hg *H* (12/31/19 1:16 PM) Temperature [96.8-100.4 DegF] 98.7 DegF (12/31/19 1:16 PM) Blood pressure sites Arm, right (12/31/19 1:16 PM) Temperature Route Tympanic (12/31/19 1:16 PM) Social History Social History Type Response Smoking Status Former smoker; Tobac co user in household: No; Type: Cigarettes; Stopped at age: 48; Tobacco use times per day: up to 2 ppd; Started at age: 16; entered on: 11/08/14 Sex
--- OUTSIDE RECORDS SUMMARY | 2023-03-06 14:46 | XMS_ITS | Continuity of Care Document ---
Author Name Unknown Organization [facility] Address [address] [place] [address]- Care Team Providers Care Air Crew Officer Name Role Phone Rj RFID DEVELOPER, Winsome M Primary Care Physician Encounter [facility] Date(s): 11/11/20 - [facility] [address] [place] [address]- Attending Physician: AdmDayana nolan Admitting Physician: AdmtrDayana Referring Physician: Admtr, [id number] [...] given at [facility] [address] [place] [address] [phone] 3Result Comment: [07/11/2018] [facility] 4Location History: [facility] 5Admin Note: given at [facility] in [place], [place] 6Location History: [facility] 7Admin Note: boostrix vis 12-28-2012 Medications [...] 06/21/20 16:00:00 EST, Route to Pharmacy Electronically, [facility] #[id number], 149.9, cm, 06/21/20 13:54:00 EST, Height, 103.8, kg, 06/21/20 13:54:... Start Date: 06/21/20 Stop Date: 06/29/20 Status: Ordered Colace sodium 100 mg oral capsule 100 mg, 1, capsule, By Mouth, 2 times a day, BUBBLE PACK PLEASE, # 180 capsule, Refills 1, Tot. Refills 1, Maintenance, 11/08/20 17:06:00 EDT, Route to Pharmacy Electronically, [facility] #[id number], 152.4, cm, 11/07/20 7:59:00 EDT, Height, 100.... Start Date: 11/08/20 Stop Date: 05/07/21 Status: Ordered escitalopram 20 mg oral tablet 1 tablet = 20 mg, By Mouth, Daily, # 30 tablet, 5 Refills, Maintenance, 07/22/20 9:23:00 EST, Tablet, [facility] #[id number], 153, cm, 07/22/20 9:04:00 EST, Height, 106, kg, 07/08/20 13:49:00 EST, Dry Weight Start Date: 07/22/20 Stop Date: 01/18/21 Status: Ordered ferrous sulfate 325 mg oral enteric coated tablet 325 mg, 1, tablet, By Mouth, 2 times a day, may take with food to minimize abdominal discomfort, # 180 tablet, Refills 1, Tot. Refills 1, Maintenance, 10/04/20 16:08:00 EST, Route to Pharmacy Electronically, [facility] #[id number], 150, cm, 09/26... Start Date: 10/04/20 Stop Date: 04/02/21 Status: Ordered Flovent HFA 220 mcg/inh inhalation aerosol 2 puffs, Inhalation, 2 times a day, # 1 each, 6 Refills, Maintenance, 11/08/20 17:06:00 EDT, Aerosol, [facility] #[id number], 152.4, cm, 11/07/20 7:59:00 EDT, Height, 100.2, kg, 11/07/20 7:59:00EDT, Dry Weight Start Date: 11/08/20 Stop Date: 06/06/21 Status: Ordered gabapentin 100 mg oral capsule 200 mg, 2, capsule, By Mouth, 3 times a day, # 180 capsule, Refills 1, Tot. Refills 1, Maintenance,09/14/20 15:22:00 EST, Route to Pharmacy Electronically, [facility] #[id number], Partial fill upon patient request if the prescription is for a sc... Start Date: 09/14/20 Status: Ordered Lasix 20 mg oral tablet See Instructions, 1 tablet By Mouth Daily, # 10 tablet, Refills 0, Tot. Refills 0, Maintenance, 11/13/20 22:27:00 EDT, Instructions Replace Required Details, Route to Pharmacy Electronically, [facility] #[id number], Partial fill upon patient requ... Start Date: 11/13/20 Status: Ordered levothyroxine 0.025 mg oral tablet 1 tablet, By Mouth, Daily, BUBBLE PACK PLEASE, # 30 tablet, 5 Refills, Maintenance, 07/22/20 9:24:00 EST, Tablet, [facility] #[id number], 153, cm, 07/22/20 9:04:00 EST, Height, 106, kg, 07/08/2013:49:00 EST, Dry Weight Start Date: 07/22/20 Stop Date: 01/18/21 Status: Ordered lisinopril 20 mg oral tablet 20 mg, 1, tablet, By Mouth, Daily, BUBBLE PACK PLEASE, # 30 tablet, Refills 5, Tot. Refills 5, Maintenance, 04/27/20 9:21:00 EDT, Route to Pharmacy Electronically, [facility] #14911, 149.9,cm, 04/27/20 9:00:00 EDT, Height, 103.8, kg, ... Start Date: 04/27/20 Stop Date: 10/24/20 Status: Ordered LORazepam 1 mg oral tablet 1 tablet = 1 mg, By Mouth, Daily, PRN as needed for anxiety, # 30 tablet, 0 Refills, Maintenance, 11/15/20 10:10:00 EDT, Tablet, [facility] #[id number], 153, cm, 11/15/20 9:29:00 EDT, Height, 102.4, [...] 03/25/20 19:21:00 EDT, Route to Pharmacy Electronically, [facility] #61754, 149.9, cm, 03/07/20 10:17:00 EDT, Height, 103.8, kg, 07... Start Date: 03/25/20 Stop Date: 10/21/20 Status: Ordered nystatin topical 194653 u/gm ointment 1 application, Topically, 3 times [...] Refills, Maintenance, 10/24/20 9:19:00 EDT, EC Capsule, [facility] #17815, 149.9, cm, 06/14/20 14:58:00 EST, Height, 101, kg, 06/07/20 10:02:00 EDT, Dry Weight Start Date: 10/24/20 Stop Date: 02/21/21 Status: Ordered ProAir HFA 90 mcg/inh inhalation aerosol 2 puffs, Inhalation, 4 times a day, PRN Wheezing/Shortness of Breath, # 2 each, 3 Refills, Maintenance, 11/08/20 17:08:00 EDT, Aerosol, [facility] #33056, Partial fill upon patient request if the prescription is for a schedule II opioid drug... Start Date: 11/08/20 Stop Date: 03/08/21 Status: Ordered Singulair 10 mg oral tablet 10 mg, 1, tablet, By Mouth, Daily in PM, BUBBLE PACK PLEASE, # 30 tablet, Refills 5, Tot. Refills 5, Maintenance, 07/22/20 9:24:00 EST, Route to Pharmacy Electronically, [facility] #[id number], 153, cm, 07/22/20 9:04:00 EST, Height, 106, [...] Active Numbness and tingling in hands(Confirmed) Active *[facility] [phone] CARE MANAG ER HELEN BOSEHerberth(Confirmed) Active Pulmonary edema(Confirmed) Active Rib pain on [...]
--- OUTSIDE RECORDS SUMMARY | 2023-03-06 14:46 | XMS_ITS | Continuity of Care Document ---
Author Name Unknown Organization [facility] Address [address] [place] [id number]- Care Team Providers Care Lead Miner Name Role Phone Rj HAMILTON, Winsome Weiss Primary Care Physician Encounter [facility] Date(s): 11/22/21 - 01/11/22 [facility] [address] [place] [id number]- Attending Physician: Winsome De La Rosa NP [...] sukhi 1Result Comment: [07/11/2018] [facility] 2Location History: [facility] 3Admin Note: given at [facility] in [place], [place] 4Result Comment: [07/11/2018] [facility] 5Result Comment: [11/11/2015] given at [facility] [address] [place] [address] [phone] 6Location History: [facility] 7Admin Note: boost[facility] vis 12-28-2012 Medications albuterol 0.083% inhalation solution 3 mL = 2.5 mg, Inhalation, Every 6 hours, PRN Wheezing/Shortness of Breath, # 60 each, 6 Refills, Maintenance, 10/29/14 10:00:25, Solution Start Date: 10/29/14 Status: Ordered Breo Ellipta 200 mcg-25 mcg/inh inhalation powder INHALE 1 PUFF BY MOUTH DAILY Start Date: 12/22/21 Status: Ordered clopidogrel 75 mg oral tablet 75 mg, 1, tablet, By Mouth, Daily, Refills 0, Maintenance, 12/22/21 11:12:00 EDT, Partial fill uponpatient request if the prescription is for a schedule II opioid drug. Start Date: 12/22/21 Status: Ordered escitalopram 10 mg oral tablet 2 tablet = 20 mg, By Mouth, Daily, 0 Refills, Maintenance, 12/22/21 11:13:00 EDT, Tablet, Partial fill upon patient request if the prescription is for a schedule II opioid drug. Start Date: 12/22/21 Status: Ordered escitalopram 20 mg oral tablet 1 tablet = 20 mg, By Mouth, Daily, # 90 tablet, 1 Refills, Maintenance, 11/29/21 7:27:00 EDT, Tablet, [email or web address] #[id number], 150, cm, 11/03/21 13:46:00 EDT, Height, 100.8, kg, 11/01/21 22:19:00EDT, Dry Weight Start Date: 11/29/21 Stop Date: 05/28/22 Status: Ordered furosemide 20 mg oral tablet 20 mg, 1, tablet, By Mouth, 2 times a day, # 180 tablet, Refills 1, Tot. Refills 1, Maintenance, 12/01/21 16:35:00 EDT, Route to Pharmacy Electronically, [email or web address] #[id number], Partial fill upon patient request if the prescription is for a sched... Start Date: 12/01/21 Stop Date: 05/30/22 Status: Ordered furosemide 20 mg oral tablet TAKE 1 TABLET BY MOUTH TWICE DAILY Start Date: 12/22/21 Status: Ordered furosemide 40 mg oral tablet [...] 12/05/21 20:30:00 EDT, Route to Pharmacy Electronically, [facility] #[id number], Partial fill upon... Start Date: 12/05/21 Status: Ordered gabapentin 100 mg oral capsule 200 mg, 2, capsule, By Mouth, 3 times a day, Refills 0, Maintenance, 12/22/21 11:13:00 EDT, Partialfill upon patient request if the prescription is for a schedule II opioid drug. Start Date: 12/22/21 Status: Ordered gabapentin 100 mg oral capsule 200 mg, 2, capsule, By Mouth, 3 times a day, # 180 capsule, Refills 3, Tot. Refills 3, Maintenance,12/27/20 11:32:00 EDT, Route to Pharmacy Electronically, [facility] #[id number], Partial fill upon patient request if the prescription is for a sc... Start Date: 12/27/20 Status: Ordered Incruse Ellipta 62.5 mcg/inh inhalation powder 1 each, Inhalation, Every 24 hours, doses should be taken at least 24 hours apart, # 30 each, 0 Refills, Maintenance, 12/22/21 11:17:00 EDT, Powder, Partial fill upon patient request if the prescription is for a schedule II opioid drug. Start Date: 12/22/21 Status: Ordered isosorbide mononitrate 30 mg oral tablet, extended release TAKE 1 TABLET BY MOUTH DAILY IN THE MORNING Start Date: 12/22/21 Status: Ordered isosorbide mononitrate 30 mg oral tablet, extended release 30 mg, 1, tablet, By Mouth, Daily in AM, # 30 tablet, Refills 3, Tot. Refills 3, Maintenance, 04/06/21 12:52:00 EDT, Route to Pharmacy Electronically, [facility] #[id number], Partial fill upon patient request if the prescription is for a schedule... Start Date: 04/06/21 Status: Ordered Lantus Solostar Pen 100 units/mL subcutaneous solution INJECT 15 UNITS SUBCUTANEOUSLY EVERY DAY WITH EVENING MEAL Start Date: 12/22/21 Status: Ordered Lantus Solostar Pen 100 units/mL subcutaneous solution = 15 units, Subcutaneous Infusion, Daily, with evening meal, # 15 mL, 3 Refills, Maintenance, 11/29/21 21:45:00 EDT, [facility] #[id number], Partial fill upon patient request if the prescriptionis for a schedule II opioid drug., 150, cm, ... Start Date: 11/29/21 Status: Ordered levothyroxine 0.025 mg oral tablet 1 tablet, By Mouth, Daily, # 90 tablet, 1 Refills, Maintenance, 11/29/21 7:27:00 EDT, Tablet, [facility] #[id number], 150, cm, 11/03/21 13:46:00 EDT, Height, 100.8, kg, 11/01/21 22:19:00 EDT, Dry Weight Start Date: 11/29/21 Stop Date: 05/28/22 Status: Ordered levothyroxine 0.025 mg oral tablet 1 tablet = 25 mcg, By Mouth, Daily, 0 Refills, Maintenance, 12/22/21 11:13:00 EDT, Tablet, Partial fill upon patient request if the prescription is for a schedule II opioid drug. Start Date: 12/22/21 Status: Ordered LORazepam 0.5 mg oral tablet 1 tablet = 0.5 mg, By Mouth, Daily, PRN Anxiety, # 24 tablet, 0 Refills, Maintenance, 11/29/21 7:28:00 EDT, Tablet, [facility] #[id number], 150, cm, 11/03/21 13:46:00 EDT, Height, 100.8, kg, 11/01/21 22:19:00 EDT, Dry Weight Start Date: 11/29/21 Status: Ordered LORazepam 0.5 mg oral tablet [...] opioid drug. Start Date: 11/03/21 Status: Ordered montelukast 10 mg oral tablet 10 mg, 1, tablet, By Mouth, Daily at bedtime, Refills 0, Maintenance, 12/22/21 11:13:00 EDT, Partial fill upon patient request if the prescription is for a schedule II opioid drug. Start Date: 12/22/21 Status: Ordered nadolol 20 mg oral tablet 20 mg, 1, tablet, By Mouth, Daily, # 90 tablet, Refills 0, Tot. Refills 0, Maintenance, 12/01/21 16:36:00 EDT, Route to Pharmacy Electronically, [email or web address] #[id number], Partial fill upon patientrequest if the prescription is for a schedule II op... Start Date: 12/01/21 Stop Date: 03/01/22 Status: Ordered nitroglycerin 0.4 mg sublingual tablet 1 tablet = 0.4 mg, Sublingual, Every 5 minutes, PRN as needed for chest pain, not to exceed 3 doses/15 min--if pain persists, seek medical attention, # 30 tablet, 3 Refills, Maintenance, 04/05/21 13:22:00 EDT, Tablet, [facility] #[id number], Part... Start Date: 04/05/21 Stop Date: 08/03/21 Status: Ordered NovoLOG FlexPen 100 units/mL injectable solution See Instructions, Subcutaneous Infusion 3 times a day before meals. Sliding scale:: 150-200 2 [id number] 4 UNITS 300-350 6 UNITS, # 3 mL, 3 Refills, Maintenance, 12/01/21 11:54:00 EDT, [facility] #[id number], Partial fill upon patient requ... Start Date: [...] By Mouth, Every 6 hours, PRN, # 24 tablet, Refills 0, Tot. Refills 0, Maintenance,Pain , Severe, 12/22/21 14:46:00 EDT, [facility], Partial fill upon patient request if the prescription is for a schedule II opioid drug. Start Date: 12/22/21 Status: Ordered oxyCODONE 5 mg oral tablet 5 mg, 1, tablet, By Mouth, Every 6 hours, PRN, # 24 tablet, Refills 0, Tot. Refills 0, Maintenance,Pain , Severe, 12/22/21 16:13:00 EDT, [facility], Partial fill upon patient request if the prescription is for a schedule II opioid drug. Start Date: 12/22/21 Status: Ordered oxyCODONE 5 mg oral tablet 5 mg, 1, tablet, By Mouth, Every 6 hours, PRN, # 24 tablet, Refills 0, Tot. Refills 0, Maintenance,Pain , Severe, 12/22/21 16:14:00 EDT, [facility], Partial fill upon patient request if the prescription is for a schedule II opioid drug. Start Date: 12/22/21 Status: Ordered pantoprazole 40 mg oral delayed release tablet = 40 mg, By Mouth, 2 times a day, # 60 tablet, 3 Refills, Maintenance, 12/08/21 7:05:00 EDT, EC Tablet, 150, cm, 11/03/21 13:46:00 EDT, Height, 100.8, kg, 11/01/21 22:19:00 EDT, Dry Weight Start Date: 12/08/21 Stop Date: 04/07/22 Status: Ordered pantoprazole 40 mg oral delayed release tablet = 40 mg, By Mouth, Daily, 0 Refills, Maintenance, 12/22/21 11:13:00 EDT, EC Tablet Start Date: 12/22/21 Status: Ordered Senna 8.6 mg [...] 10/14/21 18:18:00 EST, Route to Pharmacy Electronically, [facility] #[id number],148.4, cm, 10/05/21 10:50:00 EST, Height, 104.5, kg... Start Date: 10/14/21 Stop Date: 04/12/22 Status: Ordered spironolactone 100 mg oral tablet 100 mg, 1, tablet, By Mouth, Daily, # 90 tablet, Refills 1, Tot. Refills 1, Maintenance, 12/01/21 16:34:00 EDT, Route to Pharmacy Electronically, [facility] #[id number], Partial fill upon patient request if the prescription is for a schedule II o... Start Date: 12/01/21 Stop Date: 05/30/22 Status: Ordered spironolactone 100 mg oral tablet TAKE 1 TABLET BY MOUTH DAILY Start Date: 12/22/21 Status: Ordered Tylenol 325 mg oral tablet [...] 11 Refills, Maintenance, 01/06/21 14:47:00 EDT, Powder, [facility] #[id number], Partial fill upon patient request if the [...] tingling in hands(Confirmed) Active *[facility] [phone] CARE MANAG ER HELEN ROWDY(Confirmed) Active Hepatitis [...]
--- OUTSIDE RECORDS SUMMARY | 2023-03-06 14:47 | XMS_ITS | Continuity of Care Document ---
Author Name Unknown Organization [facility] Address [address] [place] [address]- Care Team Providers Care Dog Obedience Instructor Name Role Phone Rj PHYSICIAN SPECIALIST, Winsome Weiss Primary Care Physician Encounter [facility] Date(s): 06/01/21 - 07/01/21 [facility] [address] [place] [address]- Attending Physician: Dayana Orlando Admitting Physician: AdmtrDayana [...] [07/11/2018] [facility] 2Result Comment: [11/11/2015] given at [facility] [address] [address] [phone] 3Result Comment: [07/11/2018] [facility] 5Admin Note: given at [facility] in [place], [place] 6Location History: [facility] 7Admin Note: boostrix [...] mL, 11 Refills, Maintenance, 01/06/21 14:51:00 EDT, [place] #[id number], Partial fill upon patient request if the prescriptionis for a schedule II opioid drug., 2 sprays Nares,... Start Date: 01/06/21 Status: Ordered clopidogrel 75 mg oral tablet 75 mg, 1, tablet, By Mouth, Daily, # 30 tablet, Refills 3, Tot. Refills 3, Maintenance, 04/06/21 16:33:00 EDT, Route to Pharmacy Electronically, [facility] #[id number], Partial fill upon patientrequest if the prescription is for a schedule II op... Start Date: 04/06/21 Status: Ordered dicyclomine 10 mg oral capsule 1 capsule = 10 mg, By Mouth, 4 times a day, PRN Pain , Moderate, # 28 capsule, 0 Refills, Maintenance, 05/11/21 15:51:00 EDT, Capsule, [facility] #[id number], Partial fill upon patient request if the prescription is for a schedule II opioid drug.... Start Date: 05/11/21 Stop Date: 05/18/21 Status: Ordered escitalopram 20 mg oral tablet 1 tablet = 20 mg, By Mouth, Daily, # 90 tablet, 1 Refills, Maintenance, 02/14/21 7:29:00 EDT, Tablet, [facility] #[id number], 153, cm, 02/14/21 7:06:00 EDT, Height, 102.4, kg, 11/13/20 18:51:00 EDT, Dry Weight Start Date: 02/14/21 Stop Date: 08/13/21 Status: Ordered ferrous sulfate 325 mg oral enteric coated tablet 325 mg, 1, tablet, By Mouth, 2 times a day, may take with food to minimize abdominal discomfort, # 180 tablet, Refills 1, Tot. Refills 1, Maintenance, 05/02/21 8:25:00 EDT, Route to Pharmacy Electronically, [facility] #[id number], 148.4, cm, 07/0... Start Date: 05/02/21 Stop [...] Maintenance,12/27/20 11:32:00 EDT, Route to Pharmacy Electronically, [facility] #[id number], Partial fill upon patient request if the prescription is for a sc... Start Date: 12/27/20 Status: Ordered isosorbide mononitrate 30 mg oral tablet, extended release 30 mg, 1, tablet, By Mouth, Daily in AM, # 30 tablet, Refills 3, Tot. Refills 3, Maintenance, 04/05/21 13:22:00 EDT, Route to Pharmacy Electronically, [facility] #[id number], Partial fill upon patient request if the prescription is for a schedule... Start Date: 04/05/21 Stop Date: 08/03/21 Status: Ordered isosorbide mononitrate 30 mg oral tablet, extended release 30 mg, 1, tablet, By Mouth, Daily in AM, # 30 tablet, Refills 3, Tot. Refills 3, Maintenance, 04/06/21 12:52:00 EDT, Route to Pharmacy Electronically, [facility] #[id number], Partial fill upon patient request if the prescription is for a schedule... Start Date: 04/06/21 Status: Ordered levothyroxine 0.025 mg oral tablet 1 tablet, By Mouth, Daily, BUBBLE PACK PLEASE, # 90 tablet, 1 Refills, Maintenance, 02/14/21 7:27:00 EDT, Tablet, [facility] #[id number], 153, cm, 02/14/21 7:06:00 EDT, Height, 102.4, kg, 11/13/20 18:51:00 EDT, Dry Weight Start Date: 02/14/21 Stop Date: 08/13/21 Status: Ordered lisinopril 20 mg oral tablet 20 mg, 1, tablet, By Mouth, Daily, BUBBLE PACK PLEASE, # 90 tablet, Refills 1, Tot. Refills 1, Maintenance, 06/12/21 9:50:00 EDT, Route to Pharmacy Electronically, [facility] #[id number], 148.4,cm, 06/01/21 8:57:00 EDT, Height, 97.3, kg, ... Start Date: 06/12/21 Stop Date: 12/09/21 Status: Ordered LORazepam 1 mg oral tablet 1 tablet = 1 mg, By Mouth, Daily, PRN as needed for anxiety, covering provider, # 30 tablet, 0 Refills, Maintenance, 05/22/21 16:47:00 EDT, Tablet, [facility] #[id number], 148.4, cm, 02/16/21 15:09:00 EDT, Height, 97.6, kg, 02/15/21 17:00:00 EDT,... Start Date: 05/22/21 Stop Date: 06/21/21 Status: Ordered LORazepam 1 mg oral tablet 1 tablet = 1 mg, By Mouth, Daily, PRN as needed for anxiety, # 30 tablet, 0 Refills, Maintenance, 03/24/21 12:18:00 EDT, Tablet, [facility] #[id number], 148.4, cm, 02/16/21 15:09:00 EDT, Height,97.6, kg, [...] 3 Refills, Maintenance, 04/05/21 13:22:00 EDT, Tablet, [facility] #[id number], Part... Start Date: 04/05/21 Stop Date: 08/03/21 Status: Ordered nortriptyline 50 mg oral capsule 50 mg, 1, capsule, By Mouth, Daily, # 90 capsule, Refills 1, Tot. Refills 1, Maintenance, 02/14/21 7:26:00 EDT, Route to Pharmacy Electronically, [facility] #[id number], 153, cm, 02/14/21 7:06:00 EDT, Height, 102.4, kg, 11/13/20 18:51:00 EDT, Dry... Start Date: 02/14/21 Stop Date: 08/13/21 Status: Ordered omeprazole 20 mg oral enteric coated capsule 1 capsule = 20 mg, By Mouth, 2 times a day, BUBBLE PACK PLEASE, # 60 capsule, 3 Refills, Maintenance, 04/21/21 17:24:00 EDT, EC Capsule, [facility] #[id number], 148.4, cm, 02/16/21 15:09:00 EDT,Height, 97.6, kg, 02/15/21 17:00:00 EDT, Dry Weight Start Date: 04/21/21 Stop Date: 08/19/21 Status: Ordered ProAir HFA 90 mcg/inh inhalation aerosol 2 puffs, Inhalation, 4 times a day, PRN Wheezing/Shortness of Breath, # 2 each, 3 Refills, Maintenance, 11/08/20 17:08:00 EDT, Aerosol, [facility] #[id number], Partial fill upon patient request if the prescription is for a schedule II opioid drug... Start Date: 11/08/20 Stop Date: 03/08/21 Status: Ordered Singulair 10 mg oral tablet 10 mg, 1, tablet, By Mouth, Daily in PM, BUBBLE PACK PLEASE, # 30 tablet, Refills 5, Tot. Refills 5, Maintenance, 03/09/21 15:06:00 EDT, Route to Pharmacy Electronically, [facility] #[id number],148.4, cm, 02/16/21 15:09:00 EDT, Height, 97.6, kg,... Start Date: 03/09/21 Stop Date: 09/05/21 Status: Ordered umeclidinium 62.5 mcg/inh inhalation powder 1 inhalation = 62.5 mcg, Inhalation, Every 24 hours, doses should be taken at least 24 hours apart,# 30 each, 11 Refills, Maintenance, 01/06/21 14:47:00 EDT, Powder, [facility] #[id number], Partial fill upon patient request if the [...] Numbness and tingling in hands(Confirmed) Active *[facility] [phone] CARE MANAG ER HELEN ROWDY(Confirmed) Active Pulmonary [...]
--- OUTSIDE RECORDS SUMMARY | 2023-03-06 14:47 | XMS_ITS | Continuity of Care Document ---
Author Name Unknown Organization [facility] Address [address] [place] [address], [address] [place] [address]- Care Team Providers Care Electrical Equipment Assembler Name Role Phone Rj BROOMCORN THRESHER, Winsome Weiss Primary Care Physician [phone] Encounter [facility] Date(s): 01/29/22 - 02/28/22 [facility] [address] [place] [address] Drive, [address] [place] [address]- Attending Physician: Dayana Orlando Admitting Physician: AdmDayana [...] 2[facility] 3Admin Note: given at [facility] in [place], [place] 4Result Comment: [07/11/2018] [facility] 5Result Comment: [11/11/2015] given at [facility] [address] [place] [address] [phone] 6Location History[facility] 7Admin Note: boostrix vis [...] 01/19/22 19:16:00 EDT, Route to Pharmacy Electronically, [facility] #[id number], Partial fill upon patientrequest if the prescription is for a schedule II op... Start Date: 01/19/22 Status: Ordered docusate sodium 100 mg oral capsule TAKE 1 CAPSULE BY MOUTH TWICE DAILY NEEDED FOR CONSTIPATION Start Date: 02/20/22 Status: Ordered escitalopram 20 mg oral tablet 1 tablet = 20 mg, By Mouth, Daily, # 90 tablet, 1 Refills, Maintenance, 11/29/21 7:27:00 EDT, Tablet, [facility] #[id number], 150, cm, 11/03/21 13:46:00 EDT, Height, 100.8, [...] 12/01/21 16:35:00 EDT, Route to Pharmacy Electronically, [facility] #[id number], Partial fill upon patient request if the prescription is for a sched... Start Date: 12/01/21 Stop Date: 05/30/22 Status: Ordered gabapentin 100 mg oral capsule 200 mg, 2, capsule, By Mouth, 3 times a day, 2 capsules to equal 200 mg three times a day., # 180 capsule, Refills 3, Tot. Refills 3, Maintenance, 12/05/21 20:30:00 EDT, Route to Pharmacy Electronically, [facility] #[id number], Partial fill upon... Start Date: 12/05/21 Status: [...] mL, 3 Refills, Maintenance, 11/29/21 21:45:00 EDT, [facility] #[id number], Partial fill upon patient request if the prescriptionis for a schedule II opioid drug., 150, cm, 2... Start Date: 11/29/21 Status: Ordered levothyroxine 0.025 mg oral tablet 1 tablet, By Mouth, Daily, # 90 tablet, 1 Refills, Maintenance, 11/29/21 7:27:00 EDT, Tablet, [facility] #[id number], 150, cm, 11/03/21 13:46:00 EDT, Height, 100.8, [...] 3 Refills, Maintenance, 04/05/21 13:22:00 EDT, Tablet, [facility] #[id number], Part... Start Date: 04/05/21 Stop Date: 08/03/21 Status: Ordered NovoLOG FlexPen 100 units/mL injectable solution See Instructions, Subcutaneous Infusion 3 times a day before meals. Sliding scale:: 150-200 2 [id number] 4 UNITS 300-350 6 UNITS, # 3 mL, 3 Refills, Maintenance, 12/01/21 11:54:00 EDT, [facility] #[id number], Partial fill upon patient requ... Start Date: [...] 01/19/22 13:52:00 EDT, Route to Pharmacy Electronically, [facility] #[id number], Partial fill upon patient request... Start Date: [...] 10/14/21 18:18:00 EST, Route to Pharmacy Electronically, [facility] #[id number],148.4, cm, 10/05/21 10:50:00 EST, Height, 104.5, kg... Start Date: 10/14/21 Stop Date: 04/12/22 Status: Ordered spironolactone 100 mg oral tablet 100 mg, 1, tablet, By Mouth, Daily, # 90 tablet, Refills 1, Tot. Refills 1, Maintenance, 12/01/21 16:34:00 EDT, Route to Pharmacy Electronically, [facility] #[id number], Partial fill upon patient request if the [...] 11 Refills, Maintenance, 01/06/21 14:47:00 EDT, Powder, [facility] #[id number], Partial fill upon patient request if the [...] and tingling in hands(Confirmed) Active *[facility] [phone] CARE MANAG ER HELEN BOSEHerberth(Confirmed) Active Hepatitis [...]
--- OUTSIDE RECORDS SUMMARY | 2023-03-06 14:47 | XMS_ITS | Continuity of Care Document ---
Author Name Unknown Organization [facility] Address [address] [place] [address]- Care Team Providers Care Cardiovascular Sonographer Name Role Phone Winsome De La Rosa NP Primary Care Physician Encounter [facility] Date(s): 02/05/20 - 02/12/20 [facility] [address] [place] [id number]- Attending Physician: Winsome De La Rosa NP [...] [07/11/2018] [facility] 2Result Comment: [11/11/2015] given at [facility] [address] [place], [place] [id number] 3Result Comment: [07/11/2018] [facility] 5Admin Note: given at [facility] in [place], [place] 6[facility] 7Admin Note: boostrix [...] 10/21/19 14:37:00 EDT, Route to Pharmacy Electronically, [facility] #[id number], 149.9, cm, 08/10/19 9:46:00 EST, Height, 94.4... [...] 6 Refills, Maintenance, 10/21/19 14:37:00 EDT, Tablet, [facility] #[id number], 149.9, cm, 08/10/19 9:46:00 EST, Height, 94.4, kg, 05/21/19 10:46:00 EDT, Dry Weight Start Date: 10/21/19 Status: Ordered FeroSul 325 mg oral tablet 1 tablet = 325 mg, By Mouth, 2 times a day, BUBBLE PACK PLEASE, # 60 tablet, 5 Refills, Soft Stop, 10/21/19 14:38:00 EDT, [facility] #[id number], 149.9, cm, 08/10/19 9:46:00 EST, Height, 94.4, kg, 05/21/19 10:46:00 EDT, Dry Weight Start Date: 10/21/19 Stop Date: 04/18/20 Status: Ordered ferrous sulfate 325 mg oral enteric coated tablet 325 mg, 1, tablet, By Mouth, 2 times a day, # 180 tablet, Refills 1, Tot. Refills 1, Maintenance, 12/24/18 14:50:03 EDT, [id number] Start Date: 12/24/18 Stop Date: 06/22/19 [...] 01/18/20 10:21:00 EDT, Route to Pharmacy Electronically, [facility] #[id number], 149.9, cm, 12/31/19 13:16:00 EDT, Height, 94.4... Start Date: 01/18/20 Stop Date: 02/17/20 Status: Ordered levothyroxine 0.025 mg oral tablet 1 tablet, By Mouth, Daily, BUBBLE PACK PLEASE, # 30 tablet, 5 Refills, Maintenance, 10/21/19 14:40:00 EDT, Tablet, [facility] #[id number], 149.9, cm, 08/10/19 9:46:00 EST, Height, 94.4, kg, 05/21/19 10:46:00 EDT, Dry Weight Start Date: 10/21/19 Stop Date: 04/18/20 Status: Ordered lisinopril 20 mg oral tablet 20 mg, 1, tablet, By Mouth, Daily, BUBBLE PACK PLEASE, # 30 tablet, Refills 5, Tot. Refills 5, Maintenance, 10/21/19 14:40:00 EDT, Route to Pharmacy Electronically, [facility] #[id number], 149.9, cm, 08/10/19 9:46:00 EST, Height, 94.4, kg, ... Start Date: 10/21/19 Stop Date: 04/18/20 Status: Ordered LORazepam 1 mg oral tablet 1 tablet = 1 mg, By Mouth, Daily, PRN as needed for anxiety, # 30 tablet, 0 Refills, Maintenance, 02/05/20 11:32:00 EDT, Tablet, [facility] #[id number], 149.9, cm, 02/05/20 11:20:00 EDT, Height,94.4, kg, 05/21/19 10:46:00 EDT, Dry Weight Start Date: 02/05/20 Stop Date: 03/06/20 Status: Ordered nortriptyline 50 mg oral capsule 50 mg, 1, capsule, By Mouth, Daily, BUBBLE PACK PLEASE, # 30 capsule, Refills 0, Tot. Refills 0, Maintenance, 01/11/20 13:43:00 EDT, Route to Pharmacy Electronically, [facility] #[id number], 149.9, cm, 12/31/19 13:16:00 EDT, Height, 94.4, kg, ... Start Date: 01/11/20 Stop Date: 02/10/20 Status: Ordered nystatin topical 670382 u/gm ointment 1 application, Topically, 3 times [...] Refills, Maintenance, 10/21/19 14:42:00 EDT, EC Capsule, [facility] #46336, 149.9, cm, 08/10/19 9:46:00 EST, Height, 94.4, kg, 05/21/19 10:46:00 EDT, Dry Weight Start Date: 10/21/19 Stop Date: 04/18/20 Status: Ordered Singulair 10 mg oral tablet 10 mg, 1, tablet, By Mouth, Daily in PM, BUBBLE PACK PLEASE, # 30 tablet, Refills 5, Tot. Refills 5, Maintenance, 10/21/19 14:41:00 EDT, Route to Pharmacy Electronically, [facility] #93799,149.9, cm, 08/10/19 9:46:00 EST, Height, 94.4, kg,... [...] in hands(Confirmed) Active *[facility] [phone] CARE MANAG ER HELEN RENO(Confirmed) Active Rib pain on left side(Confirmed) Active Pain in right shoulder(Confirmed) Active Urge urinary incontinence(Confirmed) Active 1tx with apc today due to bleeding. 2normal PFT's 11/22/14 r/o COPD 3childhood onset 4possibly Type III 53+ 6s/p bilateral salpingo-oophrectomy Vital Signs Most recent to oldest [Reference Range]: 1 Height 149.9 cm (02/05/20 11:20 AM) Weight 99.7 kg (02/05/20 11:20 AM) Oxygen Saturation [94-100 %] 97 % (02/05/20 11:20 AM) Body Mass Index [18.5-24.99] 44.37 *>HHI* (02/05/20 11:20 AM) Blood Pressure [90-138/55-84 mm Hg] 118/ 72mm Hg (02/05/20 11:20 AM) Temperature [96.8-100.4 DegF] 97.4 DegF (02/05/20 11:20 AM) Mode of Delivery (Oxygen) Room air (02/05/20 11:20 AM) Blood pressure sites Arm, left (02/05/20 11:20 AM) Temperature Route Temporal (02/05/20 11:20 AM) Weight Obtained Via Standing scale (02/05/20 11:20 AM) Social History Social History Type Response Smoking Status Former smoker; Tobac co user in household: No; Type: Cigarettes; Stopped at age: 48; Tobacco use times per day: up to 2 ppd; Started at age: 16; entered on: 11/08/14 Sex
--- OUTSIDE RECORDS SUMMARY | 2023-03-06 14:47 | XMS_ITS | Continuity of Care Document ---
Author Name Unknown Organization [facility] Address [address] [place] [address]- Care Team Providers Care Labor Relations Representative Name Role Phone Rj RESOLUTION EXPERT, Winsome Weiss Primary Care Physician [phone] Encounter [facility] [id number] Date(s): 02/16/21 - 03/18/[address] [address] Attending Physician: Dayana Orlando Admitting Physician: Admtr, aDyana Referring Physician: Admtr, Ar8 Allergies, Adverse Reactions, [...] 7 12/11/13 Gi sukhi 1Result Comment: [07/11/2018] [facility] 2Result Comment: [11/11/2015] given at [facility] [address] [place] [address] [phone] 3Result Comment: [07/11/2018] [facility] 5Admin Note: given at [facility] in [place], [place] 6Location History: [facility] 7Admin Note: boostrix [...] mL, 11 Refills, Maintenance, 01/06/21 14:51:00 EDT, [place], [facility] #14741, Partial fill upon patient request if the prescriptionis for a schedule II opioid drug., 2 sprays Nares,... Start Date: 01/06/21 Status: Ordered escitalopram 20 mg oral tablet 1 tablet = 20 mg, By Mouth, Daily, # 90 tablet, 1 Refills, Maintenance, 02/14/21 7:29:00 EDT, Tablet, [facility] #[id number], 153, cm, 02/14/21 7:06:00 EDT, Height, 102.4, kg, 11/13/20 18:51:00 EDT, Dry Weight Start Date: 02/14/21 Stop Date: 08/13/21 Status: Ordered ferrous sulfate 325 mg oral enteric coated tablet 325 mg, 1, tablet, By Mouth, 2 times a day, may take with food to minimize abdominal discomfort, # 180 tablet, Refills 1, Tot. Refills 1, Maintenance, 10/04/20 16:08:00 EST, Route to Pharmacy Electronically, [facility] #65061, 150, cm, 09/26... Start Date: 10/04/20 Stop [...] Maintenance,12/27/20 11:32:00 EDT, Route to Pharmacy Electronically, [facility] #74044, Partial fill upon patient request if the prescription is for a sc... Start Date: 12/27/20 Status: Ordered levothyroxine 0.025 mg oral tablet 1 tablet, By Mouth, Daily, BUBBLE PACK PLEASE, # 90 tablet, 1 Refills, Maintenance, 02/14/21 7:27:00 EDT, Tablet, [facility] #97271, 153, cm, 02/14/21 7:06:00 EDT, Height, 102.4, kg, 11/13/20 18:51:00 EDT, Dry Weight Start Date: 02/14/21 Stop Date: 08/13/21 Status: Ordered lisinopril 20 mg oral tablet 20 mg, 1, tablet, By Mouth, Daily, BUBBLE PACK PLEASE, # 30 tablet, Refills 5, Tot. Refills 5, Maintenance, 12/15/20 9:29:00 EDT, Route to Pharmacy Electronically, [facility] #39398, 153, cm, 11/29/20 15:11:00 EDT, Height, 102.4, kg, ... Start Date: 12/15/20 Stop Date: 06/13/21 Status: Ordered LORazepam 1 mg oral tablet 1 tablet = 1 mg, By Mouth, Daily, PRN as needed for anxiety, # 30 tablet, 0 Refills, Maintenance, 02/14/21 7:25:00 EDT, Tablet, [facility] #07422, 153, cm, 02/14/21 7:06:00 EDT, Height, 102.4, [...] 02/14/21 7:26:00 EDT, Route to Pharmacy Electronically, [facility] #09810, 153, cm, 02/14/21 7:06:00 EDT, Height, 102.4, kg, 11/13/20 18:51:00 EDT, Dry... Start Date: 02/14/21 Stop Date: 08/13/21 Status: Ordered omeprazole 20 mg oral enteric coated capsule 1 capsule = 20 mg, By Mouth, 2 times a day, BUBBLE PACK PLEASE, # 60 capsule, 3 Refills, Maintenance, 12/22/20 9:44:00 EDT, EC Capsule, [facility] #68106, 153, cm, 11/29/20 15:11:00 EDT, Height, 102.4, kg, 11/13/20 18:51:00 EDT, Dry Weight Start Date: 12/22/20 Stop Date: 04/21/21 Status: Ordered ProAir HFA 90 mcg/inh inhalation aerosol 2 puffs, Inhalation, 4 times a day, PRN Wheezing/Shortness of Breath, # 2 each, 3 Refills, Maintenance, 11/08/20 17:08:00 EDT, Aerosol, [facility] #13258, Partial fill upon patient request if the prescription is for a schedule II opioid drug... Start Date: 11/08/20 Stop Date: 03/08/21 Status: Ordered Singulair 10 mg oral tablet 10 mg, 1, tablet, By Mouth, Daily in PM, BUBBLE PACK PLEASE, # 30 tablet, Refills 5, Tot. Refills 5, Maintenance, 03/09/21 15:06:00 EDT, Route to Pharmacy Electronically, [facility] #78339,148.4, cm, 02/16/21 15:09:00 EDT, Height, 97.6, kg,... Start Date: 03/09/21 Stop Date: 09/05/21 Status: Ordered umeclidinium 62.5 mcg/inh inhalation powder 1 inhalation = 62.5 mcg, Inhalation, Every 24 hours, doses should be taken at least 24 hours apart,# 30 each, 11 Refills, Maintenance, 01/06/21 14:47:00 EDT, Powder, [facility] #75025, Partial fill upon patient request if the [...] hands(Confirmed) Active *[facility] [phone] CARE MANAG ER HELEN RENO(Confirmed) Active Pulmonary [...]
--- OUTSIDE RECORDS SUMMARY | 2023-03-06 14:47 | XMS_ITS | Continuity of Care Document ---
Author Name Unknown Organization [facility] Jy[facility] Mejia Surger y Address [address] [place] [address]- Care Team Providers Care Organ Tuner Electronic Name Role Phone Rj METER REPAIRER, Winsome M Primary Care Physician Encounter [facility] Date(s): 05/26/20 - 09/23/20 [facility] [address], [address] [place] [address]- Attending Physician: Rossy Mcclure DO Allergies, Adverse [...] [07/11/2018] [facility] 2Result Comment: [11/11/2015] given at [facility] [address] [place] [address] [phone] 3Result Comment: [07/11/2018] [facility] 5Admin Note: given at [facility] in [place], [place] 6Location History[facility] 7Admin Note: [facility] vis 12-28-2012 Medications acetaminophen 500 mg/15 mL oral liquid 15 mL = 500 mg, By Mouth, Every 4 hours, PRN as needed for pain, # 240 mL, 0 Refills, Acute 09/30/20 17:48:00 EST, 09/23/20 17:47:00 EST, Liquid, Partial fill upon patient request if the prescriptionis for a schedule II opioid drug., 151, cm, ... Start Date: 09/23/20 Stop Date: 09/30/20 Status: Ordered albuterol 0.083% inhalation solution 3 mL = 2.5 mg, Inhalation, Every 6 hours, PRN Wheezing/Shortness of Breath, # 60 each, 6 Refills, Maintenance, 10/29/14 10:00:25, Solution Start Date: 10/29/14 Status: Ordered baclofen 10 mg oral tablet 5 mg, 0.5, tablet, By Mouth, 3 times a day, # 12 tablet, Refills 0, Tot. Refills 0, Maintenance, 06/21/20 16:00:00 EST, Route to Pharmacy Electronically, [facility] #[id number], 149.9, cm, 06/21/20 13:54:00 EST, Height, 103.8, [...] 5 Refills, Maintenance, 07/22/20 9:23:00 EST, Tablet, [facility] #14319, 153, cm, 07/22/20 9:04:00 EST, Height, 106, kg, 07/08/20 13:49:00 EST, Dry Weight Start Date: 07/22/20 Stop Date: 01/18/21 Status: Ordered ferrous sulfate 325 mg oral enteric coated tablet 325 mg, 1, tablet, By Mouth, 2 times a day, # 180 tablet, Refills 1, Tot. Refills 1, Maintenance, 12/24/18 14:50:03 EDT, [id number] Start Date: 12/24/18 Stop Date: 06/22/19 Status: Ordered Flovent HFA 220 mcg/inh inhalation aerosol 2 puffs, Inhalation, 2 times a day, # 1 each, 6 Refills, Maintenance, 05/30/20 10:57:00 EDT, Aerosol, [facility] #94901, 149.9, cm, 05/30/20 10:53:00 EDT, Height, 103.8, kg, 03/07/20 10:17:00 EDT, Dry Weight Start Date: 05/30/20 Stop Date: 12/26/20 Status: Ordered gabapentin 100 mg oral capsule 200 mg, 2, capsule, By Mouth, 3 times a day, # 180 capsule, Refills 1, Tot. Refills 1, Maintenance,09/14/20 15:22:00 EST, Route to Pharmacy Electronically, [facility] #69570, Partial fill upon patient request if the prescription is for a sc... Start Date: 09/14/20 Status: Ordered levothyroxine 0.025 mg oral tablet 1 tablet, By Mouth, Daily, BUBBLE PACK PLEASE, # 30 tablet, 5 Refills, Maintenance, 07/22/20 9:24:00 EST, Tablet, [facility] #16268, 153, cm, 07/22/20 9:04:00 EST, Height, 106, kg, 07/08/2013:49:00 EST, Dry Weight Start Date: 07/22/20 Stop Date: 01/18/21 Status: Ordered lisinopril 20 mg oral tablet 20 mg, 1, tablet, By Mouth, Daily, BUBBLE PACK PLEASE, # 30 tablet, Refills 5, Tot. Refills 5, Maintenance, 04/27/20 9:21:00 EDT, Route to Pharmacy Electronically, [facility] #23579, 149.9,cm, 04/27/20 9:00:00 EDT, Height, 103.8, kg, ... Start Date: 04/27/20 Stop Date: 10/24/20 Status: Ordered LORazepam 1 mg oral tablet 1 tablet = 1 mg, By Mouth, Daily, PRN as needed for anxiety, # 30 tablet, 0 Refills, Maintenance, 09/16/20 15:53:00 EST, Tablet, [facility] #95946, 153, cm, 09/14/20 13:47:00 EST, Height, 106, kg, 07/08/20 13:49:00 EST, Dry Weight Start Date: 09/16/20 Stop Date: 10/16/20 Status: Ordered nortriptyline 50 mg oral capsule 50 mg, 1, capsule, By Mouth, Daily, BUBBLE PACK PLEASE, # 30 capsule, Refills 6, Tot. Refills 6, Maintenance, 03/25/20 19:21:00 EDT, Route to Pharmacy Electronically, [facility] #56714, 149.9, cm, 03/07/20 10:17:00 EDT, Height, 103.8, kg, 07... Start Date: 03/25/20 Stop Date: 10/21/20 Status: Ordered nystatin topical 488891 u/gm ointment 1 application, Topically, 3 times [...] Refills, Maintenance, 10/24/20 9:19:00 EDT, EC Capsule, [facility] #56634, 149.9, cm, 06/14/20 14:58:00 EST, Height, 101, kg, 06/07/20 10:02:00 EDT, Dry Weight Start Date: 10/24/20 Stop Date: 02/21/21 Status: Ordered Singulair 10 mg oral tablet 10 mg, 1, tablet, By Mouth, Daily in PM, BUBBLE PACK PLEASE, # 30 tablet, Refills 5, Tot. Refills 5, Maintenance, 07/22/20 9:24:00 EST, Route to Pharmacy Electronically, [facility] #[id number], 153, cm, 07/22/20 9:04:00 EST, Height, 106, [...] and tingling in hands(Confirmed) Active *[facility] [phone] CARE MANAG ER HELEN RENO(Confirmed) Active Rib [...]
--- OUTSIDE RECORDS SUMMARY | 2023-03-06 14:47 | XMS_ITS | Continuity of Care Document ---
Author Name Unknown Organization [facility] Address [address] [place] [address]- Care Team Providers Care Family Service Caseworker Name Role Phone Rj TELEPHOTO ENGINEER, Winsome Weiss Primary Care Physician [phone] Encounter [facility] Date(s): 10/30/21 - 12/03/21 [facility] [address] [place] [address]- Attending Physician: Manny Chiu MD Allergies, Adverse Reactions, [...] 2Location History: [facility] 3Admin Note: given at [facility] [place] 4Result Comment: [07/11/2018] [facility] 5Result Comment: [11/11/2015] given at [facility] [address] [place] [address] [phone] 6[facility] 7Admin Note: [facility] 12-28-2012 Medications albuterol 0.083% inhalation solution 3 mL = 2.5 mg, Inhalation, Every 6 hours, PRN Wheezing/Shortness of Breath, # 60 each, 6 Refills, Maintenance, 10/29/14 10:00:25, Solution Start Date: 10/29/14 Status: Ordered escitalopram 20 mg oral tablet 1 tablet = 20 mg, By Mouth, Daily, # 90 tablet, 1 Refills, Maintenance, 11/29/21 7:27:00 EDT, Tablet, [facility] #10556, 150, cm, 11/03/21 13:46:00 EDT, Height, 100.8, kg, 11/01/21 22:19:00EDT, Dry Weight Start Date: 11/29/21 Stop Date: 05/28/22 Status: Ordered furosemide 20 mg oral tablet 20 mg, 1, tablet, By Mouth, 2 times a day, # 180 tablet, Refills 1, Tot. Refills 1, Maintenance, 12/01/21 16:35:00 EDT, Route to Pharmacy Electronically, [facility] #50570, Partial fill upon patient request if the [...] Maintenance,12/27/20 11:32:00 EDT, Route to Pharmacy Electronically, [facility] #68460, Partial fill upon patient request if the prescription is for a sc... Start Date: 12/27/20 Status: Ordered isosorbide mononitrate 30 mg oral tablet, extended release 30 mg, 1, tablet, By Mouth, Daily in AM, # 30 tablet, Refills 3, Tot. Refills 3, Maintenance, 04/06/21 12:52:00 EDT, Route to Pharmacy Electronically, [facility] #01565, Partial fill upon patient request if the prescription is for a schedule... Start Date: 04/06/21 Status: Ordered Lantus Solostar Pen 100 units/mL subcutaneous solution = 15 units, Subcutaneous Infusion, Daily, with evening meal, # 15 mL, 3 Refills, Maintenance, 11/29/21 21:45:00 EDT, [facility] #88398, Partial fill upon patient request if the prescriptionis for a schedule II opioid drug., 150, cm, ... Start Date: 11/29/21 Status: Ordered levothyroxine 0.025 mg oral tablet 1 tablet, By Mouth, Daily, # 90 tablet, 1 Refills, Maintenance, 11/29/21 7:27:00 EDT, Tablet, [facility] #95931, 150, cm, 11/03/21 13:46:00 EDT, Height, 100.8, kg, 11/01/21 22:19:00 EDT, Dry Weight Start Date: 11/29/21 Stop Date: 05/28/22 Status: Ordered LORazepam 0.5 mg oral tablet 1 tablet = 0.5 mg, By Mouth, Daily, PRN Anxiety, # 24 tablet, 0 Refills, Maintenance, 11/29/21 7:28:00 EDT, Tablet, [facility] #56629, 150, cm, 11/03/21 13:46:00 EDT, Height, 100.8, [...] 12/01/21 16:36:00 EDT, Route to Pharmacy Electronically, [facility] #46341, Partial fill upon patientrequest if the prescription is for a schedule II op... Start Date: 12/01/21 Stop Date: 03/01/22 Status: Ordered nitroglycerin 0.4 mg sublingual tablet 1 tablet = 0.4 mg, Sublingual, Every 5 minutes, PRN as needed for chest pain, not to exceed 3 doses/15 min--if pain persists, seek medical attention, # 30 tablet, 3 Refills, Maintenance, 04/05/21 13:22:00 EDT, Tablet, [facility] #95925, Part... Start Date: 04/05/21 Stop Date: 08/03/21 Status: Ordered NovoLOG FlexPen 100 units/mL injectable solution See Instructions, Subcutaneous Infusion 3 times a day before meals. Sliding scale:: 150-200 2 [id number] 4 UNITS 300-350 6 UNITS, # 3 mL, 3 Refills, Maintenance, 12/01/21 11:54:00 EDT, [facility] #12167, Partial fill upon patient requ... Start Date: [...] 10/14/21 18:18:00 EST, Route to Pharmacy Electronically, [facility] #78430,148.4, cm, 10/05/21 10:50:00 EST, Height, 104.5, kg... Start Date: 10/14/21 Stop Date: 04/12/22 Status: Ordered spironolactone 100 mg oral tablet 100 mg, 1, tablet, By Mouth, Daily, # 90 tablet, Refills 1, Tot. Refills 1, Maintenance, 12/01/21 16:34:00 EDT, Route to Pharmacy Electronically, [facility] #66182, Partial fill upon patient request if the prescription is for a schedule II o... Start Date: 12/01/21 Stop Date: 05/30/22 Status: Ordered umeclidinium 62.5 mcg/inh inhalation powder 1 inhalation = 62.5 mcg, Inhalation, Every 24 hours, doses should be taken at least 24 hours apart,# 30 each, 11 Refills, Maintenance, 01/06/21 14:47:00 EDT, Powder, [facility] #19193, Partial fill upon patient request if the [...] Numbness and tingling in hands(Confirmed) Active *[facility] [phone] CARE MANAG ER HELEN RENO(Confirmed) Active Hepatitis [...]
--- OUTSIDE RECORDS SUMMARY | 2023-03-06 14:47 | XMS_ITS | Continuity of Care Document ---
Author Name Unknown Organization [facility] Address [address] [place] [address], [address] [place] [address]- Care Team Providers Care Cutter Operator Brick Name Role Phone Rj OIL FIELD RIG BUILDER, Winsome Weiss Primary Care Physician Encounter [facility] Date(s): 01/03/22 - 02/02/22 [facility] [address] [place] [address] Drive, [address] [place] [address]- Attending Physician: Daynaa Orlando Admitting Physician: AdmDayana nolan Referring Physician: [...] 2[facility] 3Admin Note: given at [facility] in [place] 4Result Comment: [07/11/2018] [facility] 5Result Comment: [11/11/2015] given at [facility] [address] [place] [address] [phone] 6[facility] History[facility] 7Admin Note: [facility] vis [...] 01/19/22 19:16:00 EDT, Route to Pharmacy Electronically, [facility] #59921, Partial fill upon patientrequest if the prescription is for a schedule II op... Start Date: 01/19/22 Status: Ordered escitalopram 20 mg oral tablet 1 tablet = 20 mg, By Mouth, Daily, # 90 tablet, 1 Refills, Maintenance, 11/29/21 7:27:00 EDT, Tablet, [facility] #[id number], 150, cm, 11/03/21 13:46:00 EDT, Height, 100.8, kg, 11/01/21 22:19:00EDT, Dry Weight Start Date: 11/29/21 Stop Date: 05/28/22 Status: Ordered furosemide 20 mg oral tablet 20 mg, 1, tablet, By Mouth, 2 times a day, # 180 tablet, Refills 1, Tot. Refills 1, Maintenance, 12/01/21 16:35:00 EDT, Route to Pharmacy Electronically, [facility] #02388, Partial fill upon patient request if the prescription is for a sched... Start Date: 12/01/21 Stop Date: 05/30/22 Status: Ordered gabapentin 100 mg oral capsule 200 mg, 2, capsule, By Mouth, 3 times a day, 2 capsules to equal 200 mg three times a day., # 180 capsule, Refills 3, Tot. Refills 3, Maintenance, 12/05/21 20:30:00 EDT, Route to Pharmacy Electronically, [facility] #[id number], Partial fill upon... Start Date: 12/05/21 Status: [...] 04/06/21 12:52:00 EDT, Route to Pharmacy Electronically, [facility] #69974, Partial fill upon patient request if the prescription is for a schedule... Start Date: 04/06/21 Status: Ordered Lantus Solostar Pen 100 units/mL subcutaneous solution = 15 units, Subcutaneous Infusion, Daily, with evening meal, # 15 mL, 3 Refills, Maintenance, 11/29/21 21:45:00 EDT, [facility] #55737, Partial fill upon patient request if the prescriptionis for a schedule II opioid drug., 150, cm, ... Start Date: 11/29/21 Status: Ordered levothyroxine 0.025 mg oral tablet 1 tablet, By Mouth, Daily, # 90 tablet, 1 Refills, Maintenance, 11/29/21 7:27:00 EDT, Tablet, [facility] #69283, 150, cm, 11/03/21 13:46:00 EDT, Height, 100.8, [...] 3 Refills, Maintenance, 04/05/21 13:22:00 EDT, Tablet, [facility] #17311, Part... Start Date: 04/05/21 Stop Date: 08/03/21 Status: Ordered NovoLOG FlexPen 100 units/mL injectable solution See Instructions, Subcutaneous Infusion 3 times a day before meals. Sliding scale:: 150-200 2 [id number] 4 UNITS 300-350 6 UNITS, # 3 mL, 3 Refills, Maintenance, 12/01/21 11:54:00 EDT, [facility] #[id number], Partial fill upon patient requ... Start Date: [...] 01/19/22 13:52:00 EDT, Route to Pharmacy Electronically, [facility] #[id number], Partial fill upon patient request... Start Date: [...] 10/14/21 18:18:00 EST, Route to Pharmacy Electronically, [facility] #45208,148.4, cm, 10/05/21 10:50:00 EST, Height, 104.5, kg... Start Date: 10/14/21 Stop Date: 04/12/22 Status: Ordered spironolactone 100 mg oral tablet 100 mg, 1, tablet, By Mouth, Daily, # 90 tablet, Refills 1, Tot. Refills 1, Maintenance, 12/01/21 16:34:00 EDT, Route to Pharmacy Electronically, [facility] #56437, Partial fill upon patient request if the [...] 11 Refills, Maintenance, 01/06/21 14:47:00 EDT, Powder, [facility] #29164, Partial fill upon patient request if the [...] in hands(Confirmed) Active *[facility] [phone] CARE MANAG ER HELEN RENO(Confirmed) Active Hepatitis [...]
--- OUTSIDE RECORDS SUMMARY | 2023-03-06 14:47 | XMS_ITS | Continuity of Care Document ---
Author Name Unknown Organization [facility] Address [address] [place] [address]- Care Team Providers Care Credit Clerk Name Role Phone Rj DOG LICENSE OFFICER SUPERVISOR, Winsome Weiss Primary Care Physician Encounter [facility] Date(s): 12/28/20 - 01/27/21 [facility] [address] [place] [phone]- Allergies, Adverse Reactions, Alerts Substance Reaction Severity [...] [facility] 2Result Comment: [11/11/2015] given at [facility] [address] [place] [address] 3Result Comment: [07/11/2018] [facility] 5Admin Note: given at [facility] in [place], [place] 6Location History[facility] 7Admin Note: boostrix [...] mL, 11 Refills, Maintenance, 01/06/21 14:51:00 EDT, [address], [facility] #[id number], Partial fill upon patient request if the prescriptionis for a schedule II opioid drug., 2 sprays Nares,... Start Date: 01/06/21 Status: Ordered Colace sodium 100 mg oral capsule 100 mg, 1, capsule, By Mouth, 2 times a day, BUBBLE PACK PLEASE, # 180 capsule, Refills 1, Tot. Refills 1, Maintenance, 11/08/20 17:06:00 EDT, Route to Pharmacy Electronically, [facility] #[id number], 152.4, cm, 11/07/20 7:59:00 EDT, Height, 100.... Start Date: 11/08/20 Stop Date: 05/07/21 Status: Ordered escitalopram 20 mg oral tablet 1 tablet = 20 mg, By Mouth, Daily, # 30 tablet, 5 Refills, Maintenance, 07/22/20 9:23:00 EST, Tablet, [facility] #[id number], 153, cm, 07/22/20 9:04:00 EST, Height, 106, kg, 07/08/20 13:49:00 EST, Dry Weight Start Date: 07/22/20 Stop Date: 01/18/21 Status: Ordered ferrous sulfate 325 mg oral enteric coated tablet 325 mg, 1, tablet, By Mouth, 2 times a day, may take with food to minimize abdominal discomfort, # 180 tablet, Refills 1, Tot. Refills 1, Maintenance, 10/04/20 16:08:00 EST, Route to Pharmacy Electronically, [facility] #[id number], 150, cm, 09/26... Start Date: 10/04/20 Stop Date: 04/02/21 Status: Ordered gabapentin 100 mg oral capsule 200 mg, 2, capsule, By Mouth, 3 times a day, # 180 capsule, Refills 3, Tot. Refills 3, Maintenance,12/27/20 11:32:00 EDT, Route to Pharmacy Electronically, [facility] #[id number], Partial fill upon patient request if the prescription is for a sc... Start Date: 12/27/20 Status: Ordered levothyroxine 0.025 mg oral tablet 1 tablet, By Mouth, Daily, BUBBLE PACK PLEASE, # 30 tablet, 5 Refills, Maintenance, 07/22/20 9:24:00 EST, Tablet, [facility] #[id number], 153, cm, 07/22/20 9:04:00 EST, Height, 106, kg, 07/08/2013:49:00 EST, Dry Weight Start Date: 07/22/20 Stop Date: 01/18/21 Status: Ordered lisinopril 20 mg oral tablet 20 mg, 1, tablet, By Mouth, Daily, BUBBLE PACK PLEASE, # 30 tablet, Refills 5, Tot. Refills 5, Maintenance, 12/15/20 9:29:00 EDT, Route to Pharmacy Electronically, [facility] #[id number], 153, cm, 11/29/20 15:11:00 EDT, Height, 102.4, kg, ... Start Date: 12/15/20 Stop Date: 06/13/21 Status: Ordered LORazepam 1 mg oral tablet 1 tablet = 1 mg, By Mouth, Daily, PRN as needed for anxiety, # 30 tablet, 0 Refills, Maintenance, 12/15/20 9:28:00 EDT, Tablet, [facility] #[id number], 153, cm, 11/29/20 15:11:00 EDT, Height, 102.4, [...] 03/25/20 19:21:00 EDT, Route to Pharmacy Electronically, [facility] #[id number], 149.9, cm, 03/07/20 10:17:00 EDT, Height, 103.8, kg, 07... Start Date: 03/25/20 Stop Date: 10/21/20 Status: Ordered omeprazole 20 mg oral enteric coated capsule 1 capsule = 20 mg, By Mouth, 2 times a day, for 30 days, BUBBLE PACK PLEASE, # 60 capsule, 3 Refills, Hard Stop 02/21/21 9:19:00 EDT, 10/24/20 9:19:00 EDT, EC Capsule, [facility] #[id number], 149.9, cm, 06/14/20 14:58:00 EST, Height, 101, kg, 10/... Start Date: 10/24/20 Stop Date: 02/21/21 Status: Ordered omeprazole 20 mg oral enteric coated capsule 1 capsule = 20 mg, By Mouth, 2 times a day, BUBBLE PACK PLEASE, # 60 capsule, 3 Refills, Maintenance, 12/22/20 9:44:00 EDT, EC Capsule, [facility] #[id number], 153, cm, 11/29/20 15:11:00 EDT, Height, 102.4, kg, 11/13/20 18:51:00 EDT, Dry Weight Start Date: 12/22/20 Stop Date: 04/21/21 Status: Ordered ProAir HFA 90 mcg/inh inhalation aerosol 2 puffs, Inhalation, 4 times a day, PRN Wheezing/Shortness of Breath, # 2 each, 3 Refills, Maintenance, 11/08/20 17:08:00 EDT, Aerosol, [facility] #[id number], Partial fill upon patient request if the prescription is for a schedule II opioid drug... Start Date: 11/08/20 Stop Date: 03/08/21 Status: Ordered Singulair 10 mg oral tablet 10 mg, 1, tablet, By Mouth, Daily in PM, BUBBLE PACK PLEASE, # 30 tablet, Refills 5, Tot. Refills 5, Maintenance, 07/22/20 9:24:00 EST, Route to Pharmacy Electronically, [facility] #[id number], 153, cm, 07/22/20 9:04:00 EST, Height, 106, kg, 06/13... Start Date: 07/22/20 Stop Date: 01/18/21 Status: Ordered umeclidinium 62.5 mcg/inh inhalation powder 1 inhalation = 62.5 mcg, Inhalation, Every 24 hours, doses should be taken at least 24 hours apart,# 30 each, 11 Refills, Maintenance, 01/06/21 14:47:00 EDT, Powder, [facility] #[id number], Partial fill upon patient request if the [...] and tingling in hands(Confirmed) Active *[facility] [phone] CARE MANAG ER HELEN RENO(Confirmed) Active Pulmonary [...]
--- OUTSIDE RECORDS SUMMARY | 2023-03-06 14:47 | XMS_ITS | Continuity of Care Document ---
Author Name Unknown Organization [facility] Address [address] [place] [address]- Care Team Providers Care Insurance Auditor Name Role Phone Rj WET END TESTER, Winsome Weiss Primary Care Physician Encounter [facility] [id number] Date(s): 09/20/20 - 10/20/20 [facility] [address] [place] [address]- Allergies, Adverse Reactions, Alerts Substance Reaction Severity [...] [07/11/2018] [facility] 2Result Comment: [11/11/2015] given at [facility] [address] [place], [place] [id number] 3Result Comment: [07/11/2018] [facility] 5Admin Note: given at [facility] in [place], [place] 6Location History[facility] 7Admin Note: boostrix [...] 06/21/20 16:00:00 EST, Route to Pharmacy Electronically, [facility] #[id number], 149.9, cm, 06/21/20 13:54:00 EST, Height, 103.8, [...] 5 Refills, Maintenance, 07/22/20 9:23:00 EST, Tablet, [facility] #[id number], 153, cm, 07/22/20 9:04:00 EST, Height, 106, kg, 07/08/20 13:49:00 EST, Dry Weight Start Date: 07/22/20 Stop Date: 01/18/21 Status: Ordered ferrous sulfate 325 mg oral enteric coated tablet 325 mg, 1, tablet, By Mouth, 2 times a day, may take with food to minimize abdominal discomfort, # 180 tablet, Refills 1, Tot. Refills 1, Maintenance, 10/04/20 16:08:00 EST, Route to Pharmacy Electronically, [facility] #[id number], 150, cm, 09/26... Start Date: 10/04/20 Stop Date: 04/02/21 Status: Ordered Flovent HFA 220 mcg/inh inhalation aerosol 2 puffs, Inhalation, 2 times a day, # 1 each, 6 Refills, Maintenance, 05/30/20 10:57:00 EDT, Aerosol, [facility] #[id number], 149.9, cm, 05/30/20 10:53:00 EDT, Height, 103.8, kg, 03/07/20 10:17:00 EDT, Dry Weight Start Date: 05/30/20 Stop Date: 12/26/20 Status: Ordered gabapentin 100 mg oral capsule 200 mg, 2, capsule, By Mouth, 3 times a day, # 180 capsule, Refills 1, Tot. Refills 1, Maintenance,09/14/20 15:22:00 EST, Route to Pharmacy Electronically, [facility] #[id number], Partial fill upon patient request if the prescription is for a sc... Start Date: 09/14/20 Status: Ordered levothyroxine 0.025 mg oral tablet 1 tablet, By Mouth, Daily, BUBBLE PACK PLEASE, # 30 tablet, 5 Refills, Maintenance, 07/22/20 9:24:00 EST, Tablet, [facility] #[id number], 153, cm, 07/22/20 9:04:00 EST, Height, 106, kg, 07/08/2013:49:00 EST, Dry Weight Start Date: 07/22/20 Stop Date: 01/18/21 Status: Ordered lisinopril 20 mg oral tablet 20 mg, 1, tablet, By Mouth, Daily, BUBBLE PACK PLEASE, # 30 tablet, Refills 5, Tot. Refills 5, Maintenance, 04/27/20 9:21:00 EDT, Route to Pharmacy Electronically, [facility] #[id number], 149.9,cm, 04/27/20 9:00:00 EDT, Height, 103.8, kg, ... Start Date: 04/27/20 Stop Date: 10/24/20 Status: Ordered LORazepam 1 mg oral tablet 1 tablet = 1 mg, By Mouth, Daily, PRN as needed for anxiety, # 30 tablet, 0 Refills, Maintenance, 09/16/20 15:53:00 EST, Tablet, [facility] #[id number], 153, cm, 09/14/20 13:47:00 EST, Height, 106, kg, 07/08/20 13:49:00 EST, Dry Weight Start Date: 09/16/20 Stop Date: 10/16/20 Status: Ordered nortriptyline 50 mg oral capsule 50 mg, 1, capsule, By Mouth, Daily, BUBBLE PACK PLEASE, # 30 capsule, Refills 6, Tot. Refills 6, Maintenance, 03/25/20 19:21:00 EDT, Route to Pharmacy Electronically, [facility] #[id number], 149.9, cm, 03/07/20 10:17:00 EDT, Height, 103.8, kg, 07... Start Date: 03/25/20 Stop Date: 10/21/20 Status: Ordered nystatin topical 243266 u/gm ointment 1 application, Topically, 3 times [...] Refills, Maintenance, 10/24/20 9:19:00 EDT, EC Capsule, [facility] #[id number], 149.9, cm, 06/14/20 14:58:00 EST, Height, 101, kg, 06/07/20 10:02:00 EDT, Dry Weight Start Date: 10/24/20 Stop Date: 02/21/21 Status: Ordered Singulair 10 mg oral tablet 10 mg, 1, tablet, By Mouth, Daily in PM, BUBBLE PACK PLEASE, # 30 tablet, Refills 5, Tot. Refills 5, Maintenance, 07/22/20 9:24:00 EST, Route to Pharmacy Electronically, [facility] #[id number], 153, cm, 07/22/20 9:04:00 EST, Height, 106, [...] Status post fall(Confirmed) Active Mite allergy(Confirmed) 5 3/30/15 Active Hypertension(Confirmed) 10/27/12 Active Hypothyroidism(Confirmed) Active Impacted cerumen of both ears(Confirmed) Active IFG (impaired fasting glucose)(Confirmed) Active Fecal incontinence(Confirmed) Active Poor conditioning(Confirmed) Active Lumbar strain(Confirmed) Active Anxiety and depression(Confirmed) Active Mixed incontinence(Confirmed) Active Morbid obesity(Confirmed) Active Ovarian tumor of borderline malignancy(Confirmed) 6 Active Osteoporosis(Confirmed) Active Pancytopenia(Confirmed) 10/27/14 Active Numbness and tingling in hands(Confirmed) Active *[facility] [phone] CARE MANAG ER HELEN RENO(Confirmed) Active Rib [...]
--- OUTSIDE RECORDS SUMMARY | 2023-03-06 14:47 | XMS_ITS | Continuity of Care Document ---
Author Name Unknown Organization [facility] Address [address] [place] [phone]- Care Team Providers Care Legislative Advocate Name Role Phone Rj HAMILTON, Winsome Weiss Primary Care Physician Encounter [facility] Date(s): 07/29/20 - 08/28/20 [facility] [address] [place] [phone]- Attending Physician: Dayana Orlando Admitting Physician: Dayana [...] [07/11/2018] [facility] 2Result Comment: [11/11/2015] given at [facility] [address] [place], [place] [id number] 3Result Comment: [07/11/2018] [facility] 4Location History: [facility] 5Admin Note: given at [facility] in [place], [place] 6Location History: [facility] 7Admin Note: boostrix [...] 06/21/20 16:00:00 EST, Route to Pharmacy Electronically, [facility] #[id number], 149.9, cm, 06/21/20 13:54:00 EST, Height, 103.8, [...] 5 Refills, Maintenance, 07/22/20 9:23:00 EST, Tablet, [facility] #[id number], 153, cm, 07/22/20 9:04:00 EST, Height, 106, kg, 07/08/20 13:49:00 EST, Dry Weight Start Date: 07/22/20 Stop Date: 01/18/21 Status: Ordered ferrous sulfate 325 mg oral enteric coated tablet 325 mg, 1, tablet, By Mouth, 2 times a day, # 180 tablet, Refills 1, Tot. Refills 1, Maintenance, 12/24/18 14:50:03 EDT, Route to Pharmacy Electronically, [id number], [email or web address] Start Date: 12/24/18 Stop Date: 06/22/19 Status: Ordered Flovent HFA 220 mcg/inh inhalation aerosol 2 puffs, Inhalation, 2 times a day, # 1 each, 6 Refills, Maintenance, 05/30/20 10:57:00 EDT, Aerosol, [facility] #[id number], 149.9, cm, 05/30/20 10:53:00 EDT, Height, 103.8, kg, 03/07/20 10:17:00 EDT, Dry Weight Start Date: 05/30/20 Stop Date: 12/26/20 Status: Ordered gabapentin 100 mg oral capsule 100 mg, 1, capsule, By Mouth, 2 times a day, BUBBLE PACK PLEASE, # 60 capsule, Refills 3, Tot. Refills 3, Maintenance, 07/22/20 9:24:00 EST, Route to Pharmacy Electronically, [facility] #[id number], 153, cm, 07/22/20 9:04:00 EST, Height, 106, kg,... Start Date: 07/22/20 Stop Date: 11/19/20 Status: Ordered levothyroxine 0.025 mg oral tablet 1 tablet, By Mouth, Daily, BUBBLE PACK PLEASE, # 30 tablet, 5 Refills, Maintenance, 07/22/20 9:24:00 EST, Tablet, [facility] #[id number], 153, cm, 07/22/20 9:04:00 EST, Height, 106, kg, 07/08/2013:49:00 EST, Dry Weight Start Date: 07/22/20 Stop Date: 01/18/21 Status: Ordered lisinopril 20 mg oral tablet 20 mg, 1, tablet, By Mouth, Daily, BUBBLE PACK PLEASE, # 30 tablet, Refills 5, Tot. Refills 5, Maintenance, 04/27/20 9:21:00 EDT, Route to Pharmacy Electronically, [facility] #[id number], 149.9,cm, 04/27/20 9:00:00 EDT, Height, 103.8, kg, 03/07/... Start Date: 04/27/20 Stop Date: 10/24/20 Status: Ordered LORazepam 1 mg oral tablet 1 tablet = 1 mg, By Mouth, Daily, PRN as needed for anxiety, # 30 tablet, 0 Refills, Maintenance, 07/22/20 9:23:00 EST, Tablet, [facility] #[id number], 153, cm, 07/22/20 9:04:00 EST, Height, 106, kg, 07/08/20 13:49:00 EST, Dry Weight Start Date: 07/22/20 Stop Date: 08/21/20 Status: Ordered nortriptyline 50 mg oral capsule 50 mg, 1, capsule, By Mouth, Daily, BUBBLE PACK PLEASE, # 30 capsule, Refills 6, Tot. Refills 6, Maintenance, 03/25/20 19:21:00 EDT, Route to Pharmacy Electronically, [facility] #[id number], 149.9, cm, 03/07/20 10:17:00 EDT, Height, 103.8, kg, 07... Start Date: 03/25/20 Stop Date: 10/21/20 Status: Ordered nystatin topical 870748 u/gm ointment 1 application, Topically, 3 times [...] Refills, Maintenance, 10/24/20 9:19:00 EDT, EC Capsule, [facility] #[id number], 149.9, cm, 06/14/20 14:58:00 EST, Height, 101, kg, 06/07/20 10:02:00 EDT, Dry Weight Start Date: 10/24/20 Stop Date: 02/21/21 Status: Ordered Singulair 10 mg oral tablet 10 mg, 1, tablet, By Mouth, Daily in PM, BUBBLE PACK PLEASE, # 30 tablet, Refills 5, Tot. Refills 5, Maintenance, 07/22/20 9:24:00 EST, Route to Pharmacy Electronically, [facility] #[id number], 153, cm, 07/22/20 9:04:00 EST, Height, 106, [...] Numbness and tingling in hands(Confirmed) Active *[facility] [phone] CARE MANAG ER HELEN RENO(Confirmed) Active Rib [...]
--- OUTSIDE RECORDS SUMMARY | 2023-03-06 14:47 | XMS_ITS | Continuity of Care Document ---
Author Name Unknown Organization [facility] Address [address] [place] [address]- Care Team Providers Care Karate Black Belt Name Role Phone Winsome De La Rosa NP Primary Care Physician Encounter [facility] Date(s): 02/14/21 - 02/21/21 [facility] [address] [place] [phone]- Encounter Diagnosis Asthma(Discharge Diagnosis) - 02/14/21 Cirrhosis of liver(Discharge Diagnosis) - 02/14/21 Diabetes(Discharge Diagnosis) - 02/14/21 Depression(Discharge Diagnosis) - 02/14/21 Diarrhea(Discharge Diagnosis) - 02/14/21 GERD - Gastro-esophageal reflux disease(Discharge Diagnosis) - 02/14/21 Generalized anxiety disorder(Discharge Diagnosis) - 02/14/21 Hypothyroidism(Discharge Diagnosis) - 02/14/21 Attending Physician: Winsome De La Rosa NP [...] [07/11/2018] [facility] 2Result Comment: [11/11/2015] given at [facility] [address] [place] [address] [phone] 3Result Comment: [07/11/2018] [facility] 5Admin Note: given at [facility] in [place], [place] 6Location History[facility] 7Admin Note: boostrix [...] mL, 11 Refills, Maintenance, 01/06/21 14:51:00 EDT, [place], [facility] #[id number], Partial fill upon patient request if the prescriptionis for a schedule II opioid drug., 2 sprays Nares,... Start Date: 01/06/21 Status: Ordered escitalopram 20 mg oral tablet 1 tablet = 20 mg, By Mouth, Daily, # 90 tablet, 1 Refills, Maintenance, 02/14/21 7:29:00 EDT, Tablet, [facility] #[id number], 153, cm, 02/14/21 7:06:00 EDT, Height, 102.4, kg, 11/13/20 18:51:00 EDT, Dry Weight Start Date: 02/14/21 Stop Date: 08/13/21 Status: Ordered ferrous sulfate 325 mg oral enteric coated tablet 325 mg, 1, tablet, By Mouth, 2 times a day, may take with food to minimize abdominal discomfort, # 180 tablet, Refills 1, Tot. Refills 1, Maintenance, 10/04/20 16:08:00 EST, Route to Pharmacy Electronically, [facility] #[id number], 150, cm, 09/26... Start Date: 10/04/20 Stop [...] Maintenance,12/27/20 11:32:00 EDT, Route to Pharmacy Electronically, [facility] #[id number], Partial fill upon patient request if the prescription is for a sc... Start Date: 12/27/20 Status: Ordered levothyroxine 0.025 mg oral tablet 1 tablet, By Mouth, Daily, BUBBLE PACK PLEASE, # 90 tablet, 1 Refills, Maintenance, 02/14/21 7:27:00 EDT, Tablet, [facility] #[id number], 153, cm, 02/14/21 7:06:00 EDT, Height, 102.4, kg, 11/13/20 18:51:00 EDT, Dry Weight Start Date: 02/14/21 Stop Date: 08/13/21 Status: Ordered lisinopril 20 mg oral tablet 20 mg, 1, tablet, By Mouth, Daily, BUBBLE PACK PLEASE, # 30 tablet, Refills 5, Tot. Refills 5, Maintenance, 12/15/20 9:29:00 EDT, Route to Pharmacy Electronically, [facility] #[id number], 153, cm, 11/29/20 15:11:00 EDT, Height, 102.4, kg, ... Start Date: 12/15/20 Stop Date: 06/13/21 Status: Ordered LORazepam 1 mg oral tablet 1 tablet = 1 mg, By Mouth, Daily, PRN as needed for anxiety, # 30 tablet, 0 Refills, Maintenance, 02/14/21 7:25:00 EDT, Tablet, [facility] #[id number], 153, cm, 02/14/21 7:06:00 EDT, Height, 102.4, [...] 02/14/21 7:26:00 EDT, Route to Pharmacy Electronically, [facility] #[id number], 153, cm, 02/14/21 7:06:00 EDT, Height, 102.4, kg, 11/13/20 18:51:00 EDT, Dry... Start Date: 02/14/21 Stop Date: 08/13/21 Status: Ordered omeprazole 20 mg oral enteric coated capsule 1 capsule = 20 mg, By Mouth, 2 times a day, BUBBLE PACK PLEASE, # 60 capsule, 3 Refills, Maintenance, 12/22/20 9:44:00 EDT, EC Capsule, [facility] #[id number], 153, cm, 11/29/20 15:11:00 EDT, Height, 102.4, kg, 11/13/20 18:51:00 EDT, Dry Weight Start Date: 12/22/20 Stop Date: 04/21/21 Status: Ordered ProAir HFA 90 mcg/inh inhalation aerosol 2 puffs, Inhalation, 4 times a day, PRN Wheezing/Shortness of Breath, # 2 each, 3 Refills, Maintenance, 11/08/20 17:08:00 EDT, Aerosol, [facility] #[id number], Partial fill upon patient request if the prescription is for a schedule II opioid drug... Start Date: 11/08/20 Stop Date: 03/08/21 Status: Ordered Singulair 10 mg oral tablet 10 mg, 1, tablet, By Mouth, Daily in PM, BUBBLE PACK PLEASE, # 30 tablet, Refills 5, Tot. Refills 5, Maintenance, 07/22/20 9:24:00 EST, Route to Pharmacy Electronically, [facility] #[id number], 153, cm, 07/22/20 9:04:00 EST, Height, 106, kg, 06/13... Start Date: 07/22/20 Stop Date: 01/18/21 Status: Ordered umeclidinium 62.5 mcg/inh inhalation powder 1 inhalation = 62.5 mcg, Inhalation, Every 24 hours, doses should be taken at least 24 hours apart,# 30 each, 11 Refills, Maintenance, 01/06/21 14:47:00 EDT, Powder, [facility] #[id number], Partial fill upon patient request if the [...] Numbness and tingling in hands(Confirmed) Active *[facility] [phone] CARE MANAG ER HELEN ROWDY(Confirmed) Active Pulmonary edema(Confirmed) Active Rib pain on left side(Confirmed) Active Pain in right shoulder(Confirmed) Active Urge urinary incontinence(Confirmed) Active 1tx with apc today due to bleeding. 2normal PFT's 11/22/14 r/o COPD 3childhood onset 4possibly Type III 53+ 6s/p bilateral salpingo-oophrectomy Diagnosis Diagnosis Type Effective Dates Health Status Clinical Service Informant Asthma Discharge Diagnosis 02/14/21 Cirrhosis of liver Discharge Diagnosis 02/14/21 Diabetes Discharge Diagnosis 02/14/21 Depression Discharge Diagnosis 02/14/21 Diarrhea Discharge Diagnosis 02/14/21 GERD - Gastro-esophageal reflux disease Discharge Diagnosis 02/14/21 Generalized anxiety disorder Discharge Diagnosis 02/14/21 Hypothyroidism Discharge Diagnosis 02/14/21 Vital Signs Most recent to oldest [Reference Range]: 1 Height 153 cm (02/14/21 7:06 AM) Weight 96.8 kg (02/14/21 7:06 AM) Oxygen Saturation [94-100 %] 96 % (02/14/21 7:06 AM) Pulse Rate [55-90 bpm] 61 bpm (02/14/21 7:06 AM) Body Mass Index [18.5-24.99] 41.35 *>HHI* (02/14/21 7:06 AM) Blood Pressure [90-138/55-84 mm Hg] 120/ 74mm Hg (02/14/21 7:06 AM) Temperature [96.8-100.4 DegF] 97.7 DegF (02/14/21 7:06 AM) Liters per Minute 0 L/min (02/14/21 7:06 AM) Mode of Delivery (Oxygen) Room air (02/14/21 7:06 AM) Blood pressure sites Arm, left (02/14/21 7:06 AM) Temperature Route Temporal (02/14/21 7:06 AM) Weight Obtained Via Standing scale (02/14/21 7:06 AM) Social History Social History Type Response Smoking Status Former smoker; Tobac co user in household: No; Type: Cigarettes; Stopped at age: 48; Tobacco use times per day: up to 2 ppd; Started at age: 16; entered on: 11/08/14 Sex Female
--- OUTSIDE RECORDS SUMMARY | 2023-03-06 14:47 | XMS_ITS | Continuity of Care Document ---
Author Name Unknown Organization [facility] Address [address] [place] [address]- Care Team Providers Care Utilization Engineer Name Role Phone Rj HAMILTON, Winsome Weiss Primary Care Physician [phone] Encounter [facility] Date(s): 10/16/21 - 11/15/21 [facility] [address] [place] [address]- [place] Allergies, Adverse Reactions, Alerts Substance Reaction [...] 2Location History: [facility]yn 3Admin Note: given at [facility] in [place], [place] 4Result Comment: [07/11/2018] [facility] 5Result Comment: [11/11/2015] given at [facility] [address] [place] [address] [phone] 6Location History: g[facility]yn 7Admin Note: [facility] 12-28-2012 Medications albuterol 0.083% inhalation solution 3 mL = 2.5 mg, Inhalation, Every 6 hours, PRN Wheezing/Shortness of Breath, # 60 each, 6 Refills, Maintenance, 10/29/14 10:00:25, Solution Start Date: 10/29/14 Status: Ordered escitalopram 20 mg oral tablet 1 tablet = 20 mg, By Mouth, Daily, # 90 tablet, 1 Refills, Maintenance, 07/12/21 7:37:00 EST, Tablet, [facility] #[id number], 148.4, cm, 06/01/21 8:57:00 EDT, Height, 97.3, kg, 06/01/21 8:57:00 EDT, Dry Weight Start Date: 07/12/21 Stop Date: 01/08/22 Status: Ordered furosemide 40 mg oral tablet [...] Maintenance,12/27/20 11:32:00 EDT, Route to Pharmacy Electronically, [facility] #[id number], Partial fill upon patient request if the prescription is for a sc... Start Date: 12/27/20 Status: Ordered isosorbide mononitrate 30 mg oral tablet, extended release 30 mg, 1, tablet, By Mouth, Daily in AM, # 30 tablet, Refills 3, Tot. Refills 3, Maintenance, 04/06/21 12:52:00 EDT, Route to Pharmacy Electronically, [facility] #[id number], Partial fill upon patient request if the prescription is for a schedule... Start Date: 04/06/21 Status: Ordered levothyroxine 0.025 mg oral tablet 1 tablet, By Mouth, Daily, BUBBLE PACK PLEASE, # 90 tablet, 1 Refills, Maintenance, 07/12/21 7:38:00 EST, Tablet, [facility] #[id number], 148.4, cm, 06/01/21 8:57:00 EDT, Height, 97.3, kg, 06/01/21 8:57:00 EDT, Dry Weight Start Date: 07/12/21 Stop Date: 01/08/22 Status: Ordered LORazepam 0.5 mg oral tablet 1 tablet = 0.5 mg, By Mouth, Daily, PRN Anxiety, # 24 tablet, 0 Refills, Maintenance, 11/03/21 16:25:00 EDT, Tablet Start Date: 11/03/21 Status: Ordered magnesium oxide 400 mg oral [...] 10/03/21 16:04:00 EST, Route to Pharmacy Electronically, [facility] #[id number], Partial fill upon patientrequest if the prescription [...] 3 Refills, Maintenance, 04/05/21 13:22:00 EDT, Tablet, [facility] #[id number], Part... Start Date: 04/05/21 Stop Date: 08/03/21 Status: Ordered pantoprazole 40 mg oral delayed [...] 10/14/21 18:18:00 EST, Route to Pharmacy Electronically, [facility] #[id number],148.4, cm, 10/05/21 10:50:00 EST, Height, 104.5, kg... Start Date: 10/14/21 Stop Date: 04/12/22 Status: Ordered spironolactone 25 mg oral tablet 100 mg, 4, tablet, By Mouth, Daily, Refills 0, Maintenance, 11/03/21 16:26:00 EDT, Partial fill upon patient request if the prescription is for a schedule II opioid drug. Start Date: 11/03/21 Status: Ordered traMADol 50 mg oral tablet 1 tablet = 50 mg, By Mouth, Every 8 hours, # 30 tablet, 0 Refills, Maintenance, 11/03/21 16:26:00 EDT, Tablet Start Date: 11/03/21 Status: Ordered umeclidinium 62.5 mcg/inh inhalation powder 1 inhalation = 62.5 mcg, Inhalation, Every 24 hours, doses should be taken at least 24 hours apart,# 30 each, 11 Refills, Maintenance, 01/06/21 14:47:00 EDT, Powder, [facility] #[id number], Partial fill upon patient request if the [...] in hands(Confirmed) Active *[facility] [phone] CARE MANAG ER HELEN ROWDY(Confirmed) Active Hepatitis [...]
--- OUTSIDE RECORDS SUMMARY | 2023-03-06 14:47 | XMS_ITS | Continuity of Care Document ---
Author Name Unknown Organization [facility] Address [address] [place] [address]- Care Team Providers Care Foamite Mixer Name Role Phone Rj HAMILTON, Winsome Weiss Primary Care Physician Encounter [facility] [id number] Date(s): 08/10/19 - 08/17/19 [facility] [address] [place] [address]- Encounter Diagnosis Generalized anxiety disorder(Discharge Diagnosis) - 08/10/19 Depression(Discharge Diagnosis) - 08/10/19 Attending Physician: Winsome De La Rosa NP Referring Physician: Winsome De La Rosa NP [...] [11/11/2015] given at [facility] [address] [place] [address] [phone] 3Result Comment: [07/11/2018] [facility] 4Location History: [facility] 5Admin Note: given at [facility] in [place], [place] 6Location History: [facility] 7Admin Note: boostrix vis 12-28-2012 Medications albuterol [...] Maintenance,12/24/18 14:50:42 EDT, Route to Pharmacy Electronically, [id number], [facility] Start Date: 12/24/18 Stop Date: 06/22/19 Status: Ordered docusate sodium 100 mg oral capsule See Instructions, # 60 Unknown, Refills 14 Tot. Refills 14, TAKE ONE CAPSULE BY MOUTH TWICE DAILY, [facility] Start Date: 04/24/19 Status: Ordered escitalopram 10 mg oral tablet 1 tablet = 10 mg, By Mouth, Daily, # 30 tablet, 6 Refills, Maintenance, 08/10/19 10:10:00 EST, Tablet, [facility] #[id number], 149.9, cm, 08/10/19 9:46:00 EST, Height, 94.4, kg, 05/21/19 10:46:00 EDT, Dry Weight Start Date: 08/10/19 Status: Ordered FeroSul 325 mg oral tablet [...] 12/24/18 14:50:03 EDT, Route to Pharmacy Electronically, [id number], [facility] Start Date: 12/24/18 Stop Date: 06/22/19 [...] 12/04/17 16:24:00 EDT, Route to Pharmacy Electronically, [id number], [facility]96 Start Date: 12/04/17 Stop Date: 04/03/18 Status: Ordered levothyroxine 0.025 mg oral tablet 1 tablet, By Mouth, Daily, # 90 tablet, 3 Refills, Maintenance, 05/13/17 13:17:05, Tablet Start Date: 05/13/17 Stop Date: 05/08/18 Status: Ordered lisinopril 20 mg oral tablet 20 mg, 1, tablet, By Mouth, Daily, # 90 tablet, Refills 1, Tot. Refills 1, Maintenance, 06/30/19 12:32:13 EST, Route to Pharmacy Electronically, [id number], [facility] #[id number] Start Date: 06/30/19 Stop Date: 12/27/19 Status: Ordered LORazepam 1 mg oral tablet 1 tablet = 1 mg, By Mouth, Daily, PRN as needed for anxiety, # 30 tablet, 0 Refills, Maintenance, 08/10/19 10:11:00 EST, Tablet, [facility] #[id number], 149.9, cm, 08/10/19 9:46:00 EST, Height, 94.4, kg, 05/21/19 10:46:00 EDT, Dry Weight Start Date: 08/10/19 Stop Date: 09/09/19 Status: Ordered nortriptyline 50 mg oral capsule 50 mg, 1, capsule, By Mouth, Daily, # 30 capsule, Refills 3, Tot. Refills 3, Maintenance, 12/04/17 16:24:02 EDT, Route to Pharmacy Electronically, [id number], [facility] Start Date: 12/04/17 Stop Date: 04/03/18 Status: Ordered nystatin topical 748890 u/gm ointment 1 application, Topically, 3 times [...] Maintenance, 12/28/16 8:24:40, Route to Pharmacy Electronically, [id number], [facility] [address] Start Date: 12/28/16 Status: Ordered Spiriva Respimat [...] in hands(Confirmed) Active *[facility] [phone] CARE MANAG ER HELEN RENO(Confirmed) Active Rib pain on left side(Confirmed) Active Pain in right shoulder(Confirmed) Active Urge urinary incontinence(Confirmed) Active 1tx with apc today due to bleeding. 2normal PFT's 11/22/14 r/o COPD 3childhood onset 4possibly Type III 53+ 6s/p bilateral salpingo-oophrectomy Diagnosis Diagnosis Type Effective Dates Health Status Clinical Service Informant Generalized anxiety disorder Discharge Diagnosis 08/10/19 Depression Discharge Diagnosis 08/10/19 Vital Signs Most recent to oldest [Reference Range]: 1 Height 149.9 cm (08/10/19 9:46 AM) Weight 94.4 kg (08/10/19 9:46 AM) Oxygen Saturation [94-100 %] 96 % (08/10/19 9:46 AM) Pulse Rate [55-90 bpm] 78 bpm (08/10/19 9:46 AM) Body Mass Index [18.5-24.99] 42.01 *>HHI* (08/10/19 9:46 AM) Blood Pressure [90-138/55-84 mm Hg] 118/ 82mm Hg (08/10/19 9:46 AM) Temperature [96.8-100.4 DegF] 97.4 DegF (08/10/19 9:46 AM) Mode of Delivery (Oxygen) Room air (08/10/19 9:46 AM) Blood pressure sites Arm, left (08/10/19 9:46 AM) Temperature Route Temporal (08/10/19 9:46 AM) Weight Obtained Via Standing scale (08/10/19 9:46 AM) Social History Social History Type Response Smoking Status Former smoker; Tobac co user in household: No; Type: Cigarettes; Tobacco use times per day: up to 2 ppd; Started at age: 16; Stopped at age: 48; entered on: 11/08/14 Sex
--- OUTSIDE RECORDS SUMMARY | 2023-03-06 14:47 | XMS_ITS | Continuity of Care Document ---
Author Name Unknown Organization [facility] Address [address] [address]- Care Team Providers Care Museum Preparator Name Role Phone Rj HAMILTON, Winsome Weiss Primary Care Physician Encounter [facility] Date(s): 02/25/20 - 03/26/[address] [address]- [facility] Allergies, Adverse Reactions, Alerts Substance Reaction Severity [...] [07/11/2018] [facility] 2Result Comment: [11/11/2015] given at [facility] [address] [place] [address] [phone] 3Result Comment: [07/11/2018] [facility] 4[facility] 5Admin Note: given at [facility] in [place], [place] 6Location History: [facility] 7Admin Note: boostrix [...] 03/15/20 14:44:00 EDT, Route to Pharmacy Electronically, [facility] #[id number], 149.9, cm, 0... Start Date: 03/15/20 Stop Date: 09/11/20 Status: Ordered Colace sodium 100 mg oral capsule 100 mg, 1, capsule, By Mouth, 2 times a day, BUBBLE PACK PLEASE, # 180 capsule, Refills 1, Tot. Refills 1, Maintenance, 04/18/20 14:37:00 EDT, Route to Pharmacy Electronically, [facility] #[id number], 149.9, cm, 03/07/20 10:17:00 EDT, Height, 103... [...] 2 Refills, Maintenance, 02/23/20 16:28:00 EDT, Tablet, [facility] #[id number], 149.9, cm, 02/23/20 13:20:00 EDT, Height, 94.4, kg, 05/21/19 10:46:00 EDT, Dry Weight Start Date: 02/23/20 Stop Date: 05/23/20 Status: Ordered FeroSul 325 mg oral tablet 1 tablet = 325 mg, By Mouth, 2 times a day, BUBBLE PACK PLEASE, # 60 tablet, 5 Refills, Soft Stop, 04/18/20 14:38:00 EDT, [facility] #[id number], 149.9, cm, 03/07/20 10:17:00 EDT, Height, 103.8,kg, 03/07/20 10:17:00 EDT, Dry Weight Start Date: 04/18/20 Stop Date: 10/15/20 Status: Ordered FeroSul 325 mg oral tablet 1 tablet = 325 mg, By Mouth, 2 times a day, for 30 days, BUBBLE PACK PLEASE, # 60 tablet, 5 Refills, Hard Stop 04/18/20 14:38:00 EDT, 10/21/19 14:38:00 EDT, [facility] #[id number], 149.9, cm, 08/10/19 9:46:00 EST, Height, 94.4, kg, 05/21/19 10:46... Start Date: 10/21/19 Stop Date: 04/18/20 Status: Ordered ferrous sulfate 325 mg oral enteric coated tablet 325 mg, 1, tablet, By Mouth, 2 times a day, # 180 tablet, Refills 1, Tot. Refills 1, Maintenance, 12/24/18 14:50:03 EDT, [id number] Start Date: 12/24/18 Stop Date: 06/22/19 [...] 03/02/20 16:01:00 EDT, Route to Pharmacy Electronically, [facility] #[id number], 149.9, cm, 03/02/20 10:16:00 EDT, Height, 94.4... Start Date: 03/02/20 Stop Date: 04/01/20 Status: Ordered levothyroxine 0.025 mg oral tablet 1 tablet, By Mouth, Daily, BUBBLE PACK PLEASE, # 30 tablet, 5 Refills, Maintenance, 10/21/19 14:40:00 EDT, Tablet, [facility] #[id number], 149.9, cm, 08/10/19 9:46:00 EST, Height, 94.4, kg, 05/21/19 10:46:00 EDT, Dry Weight Start Date: 10/21/19 Stop Date: 04/18/20 Status: Ordered lisinopril 20 mg oral tablet 20 mg, 1, tablet, By Mouth, Daily, BUBBLE PACK PLEASE, # 30 tablet, Refills 5, Tot. Refills 5, Maintenance, 10/21/19 14:40:00 EDT, Route to Pharmacy Electronically, [facility] #[id number], 149.9, cm, 08/10/19 9:46:00 EST, Height, 94.4, kg, ... Start Date: 10/21/19 Stop Date: 04/18/20 Status: Ordered LORazepam 1 mg oral tablet 1 tablet = 1 mg, By Mouth, Daily, PRN as needed for anxiety, # 30 tablet, 0 Refills, Maintenance, 02/05/20 11:32:00 EDT, Tablet, [facility] #[id number], 149.9, cm, 02/05/20 11:20:00 EDT, Height,94.4, kg, 05/21/19 10:46:00 EDT, Dry Weight Start Date: 02/05/20 Stop Date: 03/06/20 Status: Ordered nortriptyline 50 mg oral capsule 50 mg, 1, capsule, By Mouth, Daily, BUBBLE PACK PLEASE, # 30 capsule, Refills 6, Tot. Refills 6, Maintenance, 03/25/20 19:21:00 EDT, Route to Pharmacy Electronically, [facility] #02749, 149.9, cm, 03/07/20 10:17:00 EDT, Height, 103.8, kg, 07... Start Date: 03/25/20 Stop Date: 10/21/20 Status: Ordered nystatin topical 325269 u/gm ointment 1 application, Topically, 3 times [...] Refills, Maintenance, 10/21/19 14:42:00 EDT, EC Capsule, [facility] #25976, 149.9, cm, 08/10/19 9:46:00 EST, Height, 94.4, kg, 05/21/19 10:46:00 EDT, Dry Weight Start Date: 10/21/19 Stop Date: 04/18/20 Status: Ordered Singulair 10 mg oral tablet 10 mg, 1, tablet, By Mouth, Daily in PM, BUBBLE PACK PLEASE, # 30 tablet, Refills 5, Tot. Refills 5, Maintenance, 03/02/20 16:02:00 EDT, Route to Pharmacy Electronically, [facility] #[id number],149.9, cm, 03/02/20 10:16:00 EDT, Height, 94.4, kg,... [...] hands(Confirmed) Active *[facility] [phone] CARE MANAG ER HELEN RENO(Confirmed) Active Rib [...]
--- OUTSIDE RECORDS SUMMARY | 2023-03-06 14:47 | XMS_ITS | Continuity of Care Document ---
Author Name Unknown Organization [facility] Address [address] [place] [address]- Care Team Providers Care Salt Cutter Name Role Phone Rj HAMILTON, Winsome Weiss Primary Care Physician [phone] Encounter [facility] Date(s): 08/15/21 - 08/22/21 [facility] [address] [place] [address]- Attending Physician: Winsome De La Rosa NP [...] [07/11/2018] [facility] 2Result Comment: [11/11/2015] given at [facility] [address] [place], [place] [id number] 3Result Comment: [07/11/2018] [facility] 5Admin Note: given at [facility] in [place], [place] 6Location History: [facility] 7Admin Note: boostrix [...] mL, 11 Refills, Maintenance, 01/06/21 14:51:00 EDT, [place], [facility] #[id number], Partial fill upon patient request if the prescriptionis for a schedule II opioid drug., 2 sprays Nares,... Start Date: 01/06/21 Status: Ordered dicyclomine 10 mg oral capsule 1 capsule = 10 mg, By Mouth, 4 times a day, PRN Pain , Moderate, # 28 capsule, 0 Refills, Maintenance, 05/11/21 15:51:00 EDT, Capsule, [facility] #[id number], Partial fill upon patient request if the prescription is for a schedule II opioid drug.... Start Date: 05/11/21 Stop Date: 05/18/21 Status: Ordered escitalopram 20 mg oral tablet 1 tablet = 20 mg, By Mouth, Daily, # 90 tablet, 1 Refills, Maintenance, 07/12/21 7:37:00 EST, Tablet, [facility] #[id number], 148.4, cm, 06/01/21 8:57:00 EDT, Height, 97.3, kg, 06/01/21 8:57:00 EDT, Dry Weight Start Date: 07/12/21 Stop Date: 01/08/22 Status: Ordered ferrous sulfate 325 mg oral enteric coated tablet 325 mg, 1, tablet, By Mouth, 2 times a day, may take with food to minimize abdominal discomfort, # 180 tablet, Refills 1, Tot. Refills 1, Maintenance, 07/12/21 7:38:00 EST, Route to Pharmacy Electronically, [facility] #[id number], 148.4, cm, 05/13... Start Date: 07/12/21 Stop [...] Maintenance,12/27/20 11:32:00 EDT, Route to Pharmacy Electronically, [facility] #[id number], Partial fill upon patient request if the prescription is for a sc... Start Date: 12/27/20 Status: Ordered isosorbide mononitrate 30 mg oral tablet, extended release 30 mg, 1, tablet, By Mouth, Daily in AM, # 30 tablet, Refills 3, Tot. Refills 3, Maintenance, 04/05/21 13:22:00 EDT, Route to Pharmacy Electronically, [facility] #[id number], Partial fill upon patient request if the prescription is for a schedule... Start Date: 04/05/21 Stop Date: 08/03/21 Status: Ordered isosorbide mononitrate 30 mg oral tablet, extended release 30 mg, 1, tablet, By Mouth, Daily in AM, # 30 tablet, Refills 3, Tot. Refills 3, Maintenance, 04/06/21 12:52:00 EDT, Route to Pharmacy Electronically, [facility] #[id number], Partial fill upon patient request if the prescription is for a schedule... Start Date: 04/06/21 Status: Ordered levothyroxine 0.025 mg oral tablet 1 tablet, By Mouth, Daily, BUBBLE PACK PLEASE, # 90 tablet, 1 Refills, Maintenance, 07/12/21 7:38:00 EST, Tablet, [facility] #[id number], 148.4, cm, 06/01/21 8:57:00 EDT, Height, 97.3, kg, 06/01/21 8:57:00 EDT, Dry Weight Start Date: 07/12/21 Stop Date: 01/08/22 Status: Ordered lisinopril 20 mg oral tablet 20 mg, 1, tablet, By Mouth, Daily, BUBBLE PACK PLEASE, # 90 tablet, Refills 1, Tot. Refills 1, Maintenance, 06/12/21 9:50:00 EDT, Route to Pharmacy Electronically, [facility] #[id number], 148.4,cm, 06/01/21 8:57:00 EDT, Height, 97.3, kg, 2... Start Date: 06/12/21 Stop Date: 12/09/21 Status: Ordered LORazepam 1 mg oral tablet 1 tablet = 1 mg, By Mouth, Daily, PRN as needed for anxiety, covering provider, # 30 tablet, 0 Refills, Maintenance, 08/08/21 17:07:00 EST, Tablet, [facility] #[id number], 148.4, cm, 06/01/21 8:57:00 EDT, Height, 97.3, kg, 06/01/21 8:57:00 EDT, D... Start Date: 08/08/21 Stop Date: 09/07/21 Status: Ordered LORazepam 1 mg oral tablet 1 tablet = 1 mg, By Mouth, Daily, PRN as needed for anxiety, # 30 tablet, 0 Refills, Maintenance, 03/24/21 12:18:00 EDT, Tablet, [facility] #[id number], 148.4, cm, 02/16/21 15:09:00 EDT, Height,97.6, kg, [...] 3 Refills, Maintenance, 04/05/21 13:22:00 EDT, Tablet, [facility] #[id number], Part... Start Date: 04/05/21 Stop Date: 08/03/21 Status: Ordered nortriptyline 50 mg oral capsule 50 mg, 1, capsule, By Mouth, Daily, # 90 capsule, Refills 1, Tot. Refills 1, Maintenance, 07/12/21 7:37:00 EST, Route to Pharmacy Electronically, [facility] #[id number], 148.4, cm, 06/01/21 8:57:00 EDT, Height, 97.3, kg, 06/01/21 8:57:00 EDT, Dry... Start Date: 07/12/21 Stop Date: 01/08/22 Status: Ordered omeprazole 20 mg oral enteric coated capsule 1 capsule = 20 mg, By Mouth, 2 times a day, BUBBLE PACK PLEASE, # 60 capsule, 3 Refills, Maintenance, 04/21/21 17:24:00 EDT, EC Capsule, [facility] #[id number], 148.4, cm, 02/16/21 15:09:00 EDT,Height, 97.6, kg, 02/15/21 17:00:00 EDT, Dry Weight Start Date: 04/21/21 Stop Date: 08/19/21 Status: Ordered ProAir HFA 90 mcg/inh inhalation aerosol 2 puffs, Inhalation, 4 times a day, PRN Wheezing/Shortness of Breath, # 2 each, 3 Refills, Maintenance, 11/08/20 17:08:00 EDT, Aerosol, [facility] #[id number], Partial fill upon patient request if the prescription is for a schedule II opioid drug... Start Date: 11/08/20 Stop Date: 03/08/21 Status: Ordered Singulair 10 mg oral tablet 10 mg, 1, tablet, By Mouth, Daily in PM, BUBBLE PACK PLEASE, # 30 tablet, Refills 5, Tot. Refills 5, Maintenance, 03/09/21 15:06:00 EDT, Route to Pharmacy Electronically, [facility] #02669,148.4, cm, 02/16/21 15:09:00 EDT, Height, 97.6, kg,... Start Date: 03/09/21 Stop Date: 09/05/21 Status: Ordered umeclidinium 62.5 mcg/inh inhalation powder 1 inhalation = 62.5 mcg, Inhalation, Every 24 hours, doses should be taken at least 24 hours apart,# 30 each, 11 Refills, Maintenance, 01/06/21 14:47:00 EDT, Powder, [facility] #[id number], Partial fill upon patient request if the [...] hands(Confirmed) Active *[facility] [phone] CARE MANAG ER HELEN RENO(Confirmed) Active Pulmonary edema(Confirmed) Active Rib pain on left side(Confirmed) Active Pain in right shoulder(Confirmed) Active Urge urinary incontinence(Confirmed) Active 1tx with apc today due to bleeding. 2normal PFT's 11/22/14 r/o COPD 3childhood onset 4possibly Type III 53+ 6s/p bilateral salpingo-oophrectomy Vital Signs Most recent to oldest [Reference Range]: 1 Height 148.4 cm (08/15/21 9:27 AM) Social History Social History Type Response Smoking Status Former smoker; Tobac co user in household: No; Type: Cigarettes; Tobacco use times per day: up to 2 ppd; Started at age: 16; Stopped at age: 48; entered on: 11/08/14 Sex Female
--- OUTSIDE RECORDS SUMMARY | 2023-03-06 14:47 | XMS_ITS | Continuity of Care Document ---
Author Name Unknown Organization [facility] Address [address] [place] [id number]- Care Team Providers Care Functional Mental Disability Teacher Name Role Phone Rj HAMILTON, Winsome Weiss Primary Care Physician Encounter [facility] [id number] Date(s): 09/14/20 - 09/21/20 [facility] Adult [address] [address]- Attending Physician: Winsome De La Rosa NP [...] [07/11/2018] [facility] 2Result Comment: [11/11/2015] given at [facility] [address] [place] [address] [phone] 3Result Comment: [07/11/2018] [facility] 5Admin Note: given at [facility] in [place], [place] 6Location [facility] 7Admin Note: boostrix [...] 06/21/20 16:00:00 EST, Route to Pharmacy Electronically, [facility] #[id number], 149.9, cm, 06/21/20 13:54:00 EST, Height, 103.8, [...] 5 Refills, Maintenance, 07/22/20 9:23:00 EST, Tablet, [facility] #[id number], 153, cm, 07/22/20 9:04:00 EST, Height, 106, kg, 07/08/20 13:49:00 EST, Dry Weight Start Date: 07/22/20 Stop Date: 01/18/21 Status: Ordered ferrous sulfate 325 mg oral enteric coated tablet 325 mg, 1, tablet, By Mouth, 2 times a day, # 180 tablet, Refills 1, Tot. Refills 1, Maintenance, 12/24/18 14:50:03 EDT, Route to Pharmacy Electronically, [id number], [email or web address] Start Date: 12/24/18 Stop Date: 06/22/19 Status: Ordered Flovent HFA 220 mcg/inh inhalation aerosol 2 puffs, Inhalation, 2 times a day, # 1 each, 6 Refills, Maintenance, 05/30/20 10:57:00 EDT, Aerosol, [facility] #[id number], 149.9, cm, 05/30/20 10:53:00 EDT, Height, 103.8, kg, 03/07/20 10:17:00 EDT, Dry Weight Start Date: 05/30/20 Stop Date: 12/26/20 Status: Ordered gabapentin 100 mg oral capsule 200 mg, 2, capsule, By Mouth, 3 times a day, # 180 capsule, Refills 1, Tot. Refills 1, Maintenance,09/14/20 15:22:00 EST, Route to Pharmacy Electronically, [facility] #[id number], Partial fill upon patient request if the prescription is for a sc... Start Date: 09/14/20 Status: Ordered levothyroxine 0.025 mg oral tablet 1 tablet, By Mouth, Daily, BUBBLE PACK PLEASE, # 30 tablet, 5 Refills, Maintenance, 07/22/20 9:24:00 EST, Tablet, [facility] #[id number], 153, cm, 07/22/20 9:04:00 EST, Height, 106, kg, 07/08/2013:49:00 EST, Dry Weight Start Date: 07/22/20 Stop Date: 01/18/21 Status: Ordered lisinopril 20 mg oral tablet 20 mg, 1, tablet, By Mouth, Daily, BUBBLE PACK PLEASE, # 30 tablet, Refills 5, Tot. Refills 5, Maintenance, 04/27/20 9:21:00 EDT, Route to Pharmacy Electronically, [facility] #[id number], 149.9,cm, 04/27/20 9:00:00 EDT, Height, 103.8, kg, ... Start Date: 04/27/20 Stop Date: 10/24/20 Status: Ordered LORazepam 1 mg oral tablet 1 tablet = 1 mg, By Mouth, Daily, PRN as needed for anxiety, # 30 tablet, 0 Refills, Maintenance, 09/16/20 15:53:00 EST, Tablet, [facility] #[id number], 153, cm, 09/14/20 13:47:00 EST, Height, 106, kg, 07/08/20 13:49:00 EST, Dry Weight Start Date: 09/16/20 Stop Date: 10/16/20 Status: Ordered nortriptyline 50 mg oral capsule 50 mg, 1, capsule, By Mouth, Daily, BUBBLE PACK PLEASE, # 30 capsule, Refills 6, Tot. Refills 6, Maintenance, 03/25/20 19:21:00 EDT, Route to Pharmacy Electronically, [facility] #[id number], 149.9, cm, 03/07/20 10:17:00 EDT, Height, 103.8, kg, 07... Start Date: 03/25/20 Stop Date: 10/21/20 Status: Ordered nystatin topical [id number] u/gm ointment 1 application, Topically, 3 times [...] Refills, Maintenance, 10/24/20 9:19:00 EDT, EC Capsule, [facility] #[id number], 149.9, cm, 06/14/20 14:58:00 EST, Height, 101, kg, 06/07/20 10:02:00 EDT, Dry Weight Start Date: 10/24/20 Stop Date: 02/21/21 Status: Ordered Singulair 10 mg oral tablet 10 mg, 1, tablet, By Mouth, Daily in PM, BUBBLE PACK PLEASE, # 30 tablet, Refills 5, Tot. Refills 5, Maintenance, 07/22/20 9:24:00 EST, Route to Pharmacy Electronically, [facility] #[id number], 153, cm, 07/22/20 9:04:00 EST, Height, 106, kg, 2... Start Date: 07/22/20 Stop Date: 01/18/21 Status: Ordered Turmeric 500 mg oral capsule 1 capsule = 500 mg, By Mouth, 2 times a day, # 60 capsule, 0 Refills, Maintenance, 09/14/20 13:52:00 EST, Capsule, Partial fill upon patient request if the prescription is for a schedule II opioid drug. Start Date: 09/14/20 Status: Ordered Tylenol Extra Strength 500 mg oral tablet 1 tablet = 500 mg, By Mouth, Every 4 hours, PRN as needed for fever, # 24 tablet, 0 Refills, Maintenance, 09/14/20 13:52:00 EST, Tablet, Partial fill upon patient request if the prescription is for aschedule II opioid drug. Start Date: 09/14/20 Status: [...] tingling in hands(Confirmed) Active *[facility] [phone] CARE MANAG ER HELEN RENO(Confirmed) Active Rib pain on left side(Confirmed) Active Pain in right shoulder(Confirmed) Active Urge urinary incontinence(Confirmed) Active 1tx with apc today due to bleeding. 2normal PFT's 11/22/14 r/o COPD 3childhood onset 4possibly Type III 53+ 6s/p bilateral salpingo-oophrectomy Vital Signs Most recent to oldest [Reference Range]: 1 Height 153 cm (09/14/20 1:47 PM) Social History Social History Type Response Smoking Status Former smoker; Tobac co user in household: No; Type: Cigarettes; Stopped at age: 48; Tobacco use times per day: up to 2 ppd; Started at age: 16; entered on: 11/08/14 Sex
--- OUTSIDE RECORDS SUMMARY | 2023-03-06 14:47 | XMS_ITS | Continuity of Care Document ---
Author Name Unknown Organization [facility] ter Address [address] [place] [address]- Care Team Providers Care Oil Spraying Machine Operator Name Role Phone Rj ASSOCIATE PROFESSOR OF LAW, Winsome M Primary Care Physician [phone] Encounter [facility] Date(s): 03/06/22 - 03/06/[address] [address] Discharge Disposition: A-D/C Home Attending Physician: Nitin Buchanan MD Admitting Physician: Nitin Buchanan MD Referring Physician: Nitin Buchanan MD Allergies, Adverse Reactions, [...] 2[facility] 3Admin Note: given at [facility] in [place], [place] 4Result Comment: [07/11/2018] [facility] 5Result Comment: [11/11/2015] given at [facility] [address] [place] [address] [phone] 6[facility] History[facility] 7Admin Note: [facility] [...] 01/19/22 19:16:00 EDT, Route to Pharmacy Electronically, [facility] #[id number], Partial fill upon patientrequest if the prescription is for a schedule II op... Start Date: 01/19/22 Status: Ordered docusate sodium 100 mg oral capsule TAKE 1 CAPSULE BY MOUTH TWICE DAILY NEEDED FOR CONSTIPATION Start Date: 02/20/22 Status: Ordered escitalopram 20 mg oral tablet 1 tablet = 20 mg, By Mouth, Daily, # 90 tablet, 1 Refills, Maintenance, 11/29/21 7:27:00 EDT, Tablet, [facility] #[id number], 150, cm, 11/03/21 13:46:00 EDT, Height, 100.8, [...] 12/01/21 16:35:00 EDT, Route to Pharmacy Electronically, [facility] #[id number], Partial fill upon patient request if the prescription is for a sched... Start Date: 12/01/21 Stop Date: 05/30/22 Status: Ordered gabapentin 100 mg oral capsule 200 mg, 2, capsule, By Mouth, 3 times a day, 2 capsules to equal 200 mg three times a day., # 180 capsule, Refills 3, Tot. Refills 3, Maintenance, 12/05/21 20:30:00 EDT, Route to Pharmacy Electronically, [facility] #[id number], Partial fill upon... Start Date: 12/05/21 Status: [...] mL, 3 Refills, Maintenance, 11/29/21 21:45:00 EDT, [facility] #[id number], Partial fill upon patient request if the prescriptionis for a schedule II opioid drug., 150, cm, ... Start Date: 11/29/21 Status: Ordered levothyroxine 0.025 mg oral tablet 1 tablet, By Mouth, Daily, # 90 tablet, 1 Refills, Maintenance, 11/29/21 7:27:00 EDT, Tablet, [facility] #[id number], 150, cm, 11/03/21 13:46:00 EDT, Height, 100.8, [...] 0 Refills, Maintenance, 03/01/22 11:00:00 EDT, Tablet, [facility] 3, Partial fill upon patient [...] 3 Refills, Maintenance, 04/05/21 13:22:00 EDT, Tablet, [facility] #[id number], Part... Start Date: 04/05/21 Stop Date: 08/03/21 Status: Ordered NovoLOG FlexPen 100 units/mL injectable solution See Instructions, Subcutaneous Infusion 3 times a day before meals. Sliding scale:: 150-200 2 [id number] 4 UNITS 300-350 6 UNITS, # 3 mL, 3 Refills, Maintenance, 12/01/21 11:54:00 EDT, [facility] #[id number], Partial fill upon patient requ... Start Date: [...] 01/19/22 13:52:00 EDT, Route to Pharmacy Electronically, [facility] #[id number], Partial fill upon patient request... Start Date: [...] 10/14/21 18:18:00 EST, Route to Pharmacy Electronically, [facility] #[id number],148.4, cm, 10/05/21 10:50:00 EST, Height, 104.5, kg... Start Date: 10/14/21 Stop Date: 04/12/22 Status: Ordered trospium 60 mg oral capsule, extended release 1 capsule = 60 mg, By Mouth, Daily in AM, # 30 capsule, 0 Refills, Maintenance, 03/05/22 11:28:00 EDT, [facility] #[id number], Partial fill upon patient request if the [...] 11 Refills, Maintenance, 01/06/21 14:47:00 EDT, Powder, [facility] #[id number], Partial fill upon patient request if the [...] Numbness and tingling in hands(Confirmed) Active *[facility] [phone] CARE MANAG ER HELEN RENO(Confirmed) Active Hepatitis C virus infection resolved after antiviral drug therapy(Confirmed) Active Portal hypertension with eso phageal varices(Confirmed) Active Severe obesity(Confirmed) Active DM2 (diabetes mellitus, type 2)(Confirmed) Active Urge urinary incontinence(Confirmed) Active 1tx with apc today due to bleeding. 2possibly Type III 33+ 4s/p bilateral salpingo-oophrectomy Vital Signs Most recent to oldest [Reference Range]: 1 Height 150 cm (03/06/22 7:45 AM) Weight 98 kg (03/06/22 7:45 AM) Oxygen Saturation [94-100 %] 99 % (03/06/22 7:48 AM) Pulse Rate [55-90 bpm] 89 bpm (03/06/22 7:48 AM) Blood Pressure [90-138/55-84 mm Hg] 156/ 66mm Hg *H* (03/06/22 7:48 AM) Respiratory Rate [16-30 br/min] 18 br/mi n (03/06/22 7:48 AM) Temperature [96.8-100.4 DegF] 97.8 DegF (03/06/22 7:48 AM) Mode of Delivery (Oxygen) Room air (03/06/22 7:48 AM) Blood pressure sites Arm, left (03/06/22 7:48 AM) Temperature Route Temporal (03/06/22 7:48 AM) Dry Weight 98 kg (03/06/22 7:45 AM) Social History Social History Type Response Smoking Status Former smoker; Tobac co user in household: No; Type: Cigarettes; Stopped at age: 48; Tobacco use times per day: up to 2 ppd; Started at age: 16; entered on: 11/08/14 Sex
--- OUTSIDE RECORDS SUMMARY | 2023-03-06 14:48 | XMS_ITS | Continuity of Care Document ---
Author Name Unknown Organization [facility] Address [address] [place] [id number]- Care Team Providers Care Senior Major Gifts Officer Name Role Phone Winsome De La Rosa NP Primary Care Physician Encounter [facility] Date(s): 01/06/21 - 02/05/21 [facility] [address] [place] [address] [place] [id number] Attending Physician: Admovidio, Dayana Admitting Physician: Admtr, [id number] Referring Physician: Admtr, [...] given at [facility] [address] [place] [address] [phone] 3Result Comment: [07/11/2018] [facility] 4Location History: [facility] 5Admin Note: given at [facility] in [place], [place] 6Location History: [facility] 7Admin Note: [facility] 12-28-2012 Medications albuterol 0.083% inhalation solution 3 mL = 2.5 mg, Inhalation, Every 6 hours, PRN Wheezing/Shortness of Breath, # 60 each, 6 Refills, Maintenance, 10/29/14 10:00:25, Solution Start Date: 10/29/14 Status: Ordered azelastine 137 mcg/inh (0.1%) nasal spray 2 sprays, Nares, Both, Daily, PRN Other Allergies, # 30 mL, 11 Refills, Maintenance, 01/06/21 14:51:00 EDT, [place], [facility] #[id number], Partial fill upon patient request if the prescriptionis for a schedule II opioid drug., 2 sprays Nares,... Start Date: 01/06/21 Status: Ordered Colace sodium 100 mg oral capsule 100 mg, 1, capsule, By Mouth, 2 times a day, BUBBLE PACK PLEASE, # 180 capsule, Refills 1, Tot. Refills 1, Maintenance, 11/08/20 17:06:00 EDT, Route to Pharmacy Electronically, [facility] #[id number], 152.4, cm, 11/07/20 7:59:00 EDT, Height, 100.... Start Date: 11/08/20 Stop Date: 05/07/21 Status: Ordered escitalopram 20 mg oral tablet 1 tablet = 20 mg, By Mouth, Daily, # 30 tablet, 5 Refills, Maintenance, 07/22/20 9:23:00 EST, Tablet, [facility] #[id number], 153, cm, 07/22/20 9:04:00 EST, Height, 106, kg, 07/08/20 13:49:00 EST, Dry Weight Start Date: 07/22/20 Stop Date: 01/18/21 Status: Ordered ferrous sulfate 325 mg oral enteric coated tablet 325 mg, 1, tablet, By Mouth, 2 times a day, may take with food to minimize abdominal discomfort, # 180 tablet, Refills 1, Tot. Refills 1, Maintenance, 10/04/20 16:08:00 EST, Route to Pharmacy Electronically, [facility] #[id number], 150, cm, 09/26... Start Date: 10/04/20 Stop Date: 04/02/21 Status: Ordered gabapentin 100 mg oral capsule 200 mg, 2, capsule, By Mouth, 3 times a day, # 180 capsule, Refills 3, Tot. Refills 3, Maintenance,12/27/20 11:32:00 EDT, Route to Pharmacy Electronically, [facility] #[id number], Partial fill upon patient request if the prescription is for a sc... Start Date: 12/27/20 Status: Ordered levothyroxine 0.025 mg oral tablet 1 tablet, By Mouth, Daily, BUBBLE PACK PLEASE, # 30 tablet, 5 Refills, Maintenance, 07/22/20 9:24:00 EST, Tablet, [facility] #[id number], 153, cm, 07/22/20 9:04:00 EST, Height, 106, kg, 07/08/2013:49:00 EST, Dry Weight Start Date: 07/22/20 Stop Date: 01/18/21 Status: Ordered lisinopril 20 mg oral tablet 20 mg, 1, tablet, By Mouth, Daily, BUBBLE PACK PLEASE, # 30 tablet, Refills 5, Tot. Refills 5, Maintenance, 12/15/20 9:29:00 EDT, Route to Pharmacy Electronically, [facility] #[id number], 153, cm, 11/29/20 15:11:00 EDT, Height, 102.4, kg, ... Start Date: 12/15/20 Stop Date: 06/13/21 Status: Ordered LORazepam 1 mg oral tablet 1 tablet = 1 mg, By Mouth, Daily, PRN as needed for anxiety, # 30 tablet, 0 Refills, Maintenance, 12/15/20 9:28:00 EDT, Tablet, [facility] #[id number], 153, cm, 11/29/20 15:11:00 EDT, Height, 102.4, [...] 03/25/20 19:21:00 EDT, Route to Pharmacy Electronically, [facility] #[id number], 149.9, cm, 03/07/20 10:17:00 EDT, Height, 103.8, kg, 07... Start Date: 03/25/20 Stop Date: 10/21/20 Status: Ordered omeprazole 20 mg oral enteric coated capsule 1 capsule = 20 mg, By Mouth, 2 times a day, for 30 days, BUBBLE PACK PLEASE, # 60 capsule, 3 Refills, Hard Stop 02/21/21 9:19:00 EDT, 10/24/20 9:19:00 EDT, EC Capsule, [facility] #[id number], 149.9, cm, 06/14/20 14:58:00 EST, Height, 101, kg, 10/... Start Date: 10/24/20 Stop Date: 02/21/21 Status: Ordered omeprazole 20 mg oral enteric coated capsule 1 capsule = 20 mg, By Mouth, 2 times a day, BUBBLE PACK PLEASE, # 60 capsule, 3 Refills, Maintenance, 12/22/20 9:44:00 EDT, EC Capsule, [facility] #[id number], 153, cm, 11/29/20 15:11:00 EDT, Height, 102.4, kg, 11/13/20 18:51:00 EDT, Dry Weight Start Date: 12/22/20 Stop Date: 04/21/21 Status: Ordered ProAir HFA 90 mcg/inh inhalation aerosol 2 puffs, Inhalation, 4 times a day, PRN Wheezing/Shortness of Breath, # 2 each, 3 Refills, Maintenance, 11/08/20 17:08:00 EDT, Aerosol, [facility] #[id number], Partial fill upon patient request if the prescription is for a schedule II opioid drug... Start Date: 11/08/20 Stop Date: 03/08/21 Status: Ordered Singulair 10 mg oral tablet 10 mg, 1, tablet, By Mouth, Daily in PM, BUBBLE PACK PLEASE, # 30 tablet, Refills 5, Tot. Refills 5, Maintenance, 07/22/20 9:24:00 EST, Route to Pharmacy Electronically, [facility] #[id number], 153, cm, 07/22/20 9:04:00 EST, Height, 106, kg, 06/13... Start Date: 07/22/20 Stop Date: 01/18/21 Status: Ordered umeclidinium 62.5 mcg/inh inhalation powder 1 inhalation = 62.5 mcg, Inhalation, Every 24 hours, doses should be taken at least 24 hours apart,# 30 each, 11 Refills, Maintenance, 01/06/21 14:47:00 EDT, Powder, [facility] #[id number], Partial fill upon patient request if the [...] Active Numbness and tingling in hands(Confirmed) Active *[facility] [phone] CARE MANAG ER HELEN RENO(Confirmed) Active Pulmonary [...]
--- OUTSIDE RECORDS SUMMARY | 2023-03-06 14:48 | XMS_ITS | Continuity of Care Document ---
Author Name Unknown Organization [facility] ter Address [address] [place] [id number]- Care Team Providers Care Visual Journalist Name Role Phone Rj FIBROUS WALLBOARD INSPECTOR, Winsome M Primary Care Physician Encounter [facility] Date(s): 03/14/22 - 04/19/[address] [id number] Attending Physician: Nitin Buchanan MD Admitting Physician: [...] 2[facility] 3Admin Note: given at [facility] in [place], [place] 4Result Comment: [07/11/2018] [facility] 5Result Comment: [11/11/2015] given at [facility] [address] [place] [address] [phone] 6Location History: [facility] 7Admin Note: [facility] 12-28-2012 Medications Breo Ellipta 200 mcg-25 mcg/inh inhalation powder 1 puffs, Inhalation, Daily, # 1 each, 11 Refills, Maintenance, 12/20/21 15:11:00 EDT, Powder, [facility] #[id number], Partial fill upon patient request if the [...] 01/19/22 19:16:00 EDT, Route to Pharmacy Electronically, [facility] #[id number], Partial fill upon patientrequest if the prescription is for a schedule II op... Start Date: 01/19/22 Status: Ordered docusate sodium 100 mg oral capsule TAKE 1 CAPSULE BY MOUTH TWICE DAILY NEEDED FOR CONSTIPATION Start Date: 02/20/22 Status: Ordered escitalopram 20 mg oral tablet 1 tablet = 20 mg, By Mouth, Daily, # 90 tablet, 1 Refills, Maintenance, 11/29/21 7:27:00 EDT, Tablet, [facility] #[id number], 150, cm, 11/03/21 13:46:00 EDT, Height, 100.8, [...] 12/01/21 16:35:00 EDT, Route to Pharmacy Electronically, [facility] #[id number], Partial fill upon patient request if the prescription is for a sched... Start Date: 12/01/21 Stop Date: 05/30/22 Status: Ordered gabapentin 100 mg oral capsule 200 mg, 2, capsule, By Mouth, 3 times a day, 2 capsules to equal 200 mg three times a day., # 180 capsule, Refills 3, Tot. Refills 3, Maintenance, 12/05/21 20:30:00 EDT, Route to Pharmacy Electronically, [facility] #[id number], Partial fill upon... Start Date: 12/05/21 Status: [...] mL, 3 Refills, Maintenance, 11/29/21 21:45:00 EDT, [facility] #[id number], Partial fill upon patient request if the prescriptionis for a schedule II opioid drug., 150, cm, ... Start Date: 11/29/21 Status: Ordered levothyroxine 0.025 mg oral tablet 1 tablet, By Mouth, Daily, # 90 tablet, 1 Refills, Maintenance, 11/29/21 7:27:00 EDT, Tablet, [facility] #[id number], 150, cm, 11/03/21 13:46:00 EDT, Height, 100.8, [...] 0 Refills, Maintenance, 03/01/22 11:00:00 EDT, Tablet, [facility] 3, Partial fill upon patient request [...] 3 Refills, Maintenance, 04/05/21 13:22:00 EDT, Tablet, [facility] #[id number], Part... Start Date: 04/05/21 Stop Date: 08/03/21 Status: Ordered NovoLOG FlexPen 100 units/mL injectable solution See Instructions, Subcutaneous Infusion 3 times a day before meals. Sliding scale:: 150-200 2 [id number] 4 UNITS 300-350 6 UNITS, # 3 mL, 3 Refills, Maintenance, 12/01/21 11:54:00 EDT, [facility] #[id number], Partial fill upon patient requ... Start Date: [...] 01/19/22 13:52:00 EDT, Route to Pharmacy Electronically, [facility] #[id number], Partial fill upon patient request... Start Date: [...] 10/14/21 18:18:00 EST, Route to Pharmacy Electronically, [facility] #[id number],148.4, cm, 10/05/21 10:50:00 EST, Height, 104.5, kg... Start Date: 10/14/21 Stop Date: 04/12/22 Status: Ordered trospium 60 mg oral capsule, extended release 1 capsule = 60 mg, By Mouth, Daily in AM, # 90 capsule, 0 Refills, Maintenance, 04/04/22 8:37:00 EDT, [facility] #[id number], Partial fill upon patient request if the [...] 11 Refills, Maintenance, 03/15/22 10:32:00 EDT, Powder, [facility] #[id number], Partial fill upon patient request if the [...] hands(Confirmed) Active *[facility] [phone] CARE MANAG ER HELEN RENO(Confirmed) Active Hepatitis [...] Name: Winsome De La Rosa NP Address: [address] [place] [address] [place], [place] [address]
--- OUTSIDE RECORDS SUMMARY | 2023-03-06 14:48 | XMS_ITS | Continuity of Care Document ---
Author Name Unknown Organization [facility] Address [address] [place] [address]- Care Team Providers Care Veterinary Technology Instructor Name Role Phone Rj DOUBLE END CHUCKING MACHINE OPERATOR, Winsome M Primary Care Physician [phone] Encounter [facility] [place] Date(s): 03/30/22 - 04/29/22 [facility] [address] [place] [address]- Attending Physician: Dayana Orlando Admitting Physician: AdmDayana [...] [facility] 3Admin Note: given at [facility] in [place], [place] 4Result Comment: [07/11/2018] [facility] 5Result Comment: [11/11/2015] given at [facility] [address] [place] [address] [phone] 6[facility] History: [facility] 7Admin Note: [facility] vis 12-28-2012 Medications Breo Ellipta 200 mcg-25 mcg/inh inhalation powder 1 puffs, Inhalation, Daily, # 1 each, 11 Refills, Maintenance, 12/20/21 15:11:00 EDT, Powder, [facility] #[id number], Partial fill upon patient request if the [...] 01/19/22 19:16:00 EDT, Route to Pharmacy Electronically, [facility] #[id number], Partial fill upon patientrequest if the prescription is for a schedule II op... Start Date: 01/19/22 Status: Ordered docusate sodium 100 mg oral capsule 100 mg, 1, capsule, By Mouth, Every 12 hours, PRN, # 60 capsule, Refills 0, Tot. Refills 0, Maintenance, Constipation, 04/23/22 16:44:00 EDT, Route to Pharmacy Electronically, [facility] #[id number], Partial fill upon patient request if the presc... Start Date: 04/23/22 Stop Date: 05/23/22 Status: Ordered docusate sodium 100 mg oral capsule TAKE 1 CAPSULE BY MOUTH TWICE DAILY NEEDED FOR CONSTIPATION Start Date: 02/20/22 Status: Ordered escitalopram 20 mg oral tablet 1 tablet = 20 mg, By Mouth, Daily, # 90 tablet, 1 Refills, Maintenance, 11/29/21 7:27:00 EDT, Tablet, [facility] #[id number], 150, cm, 11/03/21 13:46:00 EDT, Height, 100.8, [...] 12/01/21 16:35:00 EDT, Route to Pharmacy Electronically, [facility] #[id number], Partial fill upon patient request if the prescription is for a sched... Start Date: 12/01/21 Stop Date: 05/30/22 Status: Ordered gabapentin 100 mg oral capsule 200 mg, 2, capsule, By Mouth, 3 times a day, 2 capsules to equal 200 mg three times a day., # 180 capsule, Refills 3, Tot. Refills 3, Maintenance, 12/05/21 20:30:00 EDT, Route to Pharmacy Electronically, [facility] #[id number], Partial fill upon... Start Date: 12/05/21 Status: [...] mL, 3 Refills, Maintenance, 11/29/21 21:45:00 EDT, [facility] #[id number], Partial fill upon patient request if the prescriptionis for a schedule II opioid drug., 150, cm, ... Start Date: 11/29/21 Status: Ordered levothyroxine 0.025 mg oral tablet 1 tablet, By Mouth, Daily, # 90 tablet, 1 Refills, Maintenance, 11/29/21 7:27:00 EDT, Tablet, [facility] #[id number], 150, cm, 11/03/21 13:46:00 EDT, Height, 100.8, [...] 0 Refills, Maintenance, 03/01/22 11:00:00 EDT, Tablet, [facility] 3, Partial fill upon patient [...] 3 Refills, Maintenance, 04/05/21 13:22:00 EDT, Tablet, [facility] #[id number], Part... Start Date: 04/05/21 Stop Date: 08/03/21 Status: Ordered NovoLOG FlexPen 100 units/mL injectable solution See Instructions, Subcutaneous Infusion 3 times a day before meals. Sliding scale:: 150-200 2 [id number] 4 UNITS 300-350 6 UNITS, # 3 mL, 3 Refills, Maintenance, 12/01/21 11:54:00 EDT, [facility] #[id number], Partial fill upon patient requ... Start Date: [...] 01/19/22 13:52:00 EDT, Route to Pharmacy Electronically, [facility] #[id number], Partial fill upon patient request... Start Date: [...] 10/14/21 18:18:00 EST, Route to Pharmacy Electronically, [facility] #[id number],148.4, cm, 10/05/21 10:50:00 EST, Height, 104.5, kg... Start Date: 10/14/21 Stop Date: 04/12/22 Status: Ordered trospium 60 mg oral capsule, extended release 1 capsule = 60 mg, By Mouth, Daily in AM, # 90 capsule, 0 Refills, Maintenance, 04/04/22 8:37:00 EDT, [facility] #[id number], Partial fill upon patient request if the [...] 11 Refills, Maintenance, 03/15/22 10:32:00 EDT, Powder, [facility] #[id number], Partial fill upon patient request if the [...] and tingling in hands(Confirmed) Active *[facility] [phone] CARE MANAG ER HELEN ROWDY(Confirmed) Active Hepatitis [...] Name: Winsome De La Rosa NP Address: [address] [place] [address] [facility] [place], [place] [address]
--- OUTSIDE RECORDS SUMMARY | 2023-03-06 14:48 | XMS_ITS | Continuity of Care Document ---
Author Name Unknown Organization [facility] Address [address] [place] [address]- Care Team Providers Care Wheel And Pinion Inspector Name Role Phone Rj APPRENTICE STYLIST, Winsome Weiss Primary Care Physician Encounter [facility] Date(s): 07/14/21 - 08/13/21 [facility] [address] [address]- Allergies, Adverse Reactions, Alerts Substance Reaction Severity [...] [07/11/2018] [facility] 2Result Comment: [11/11/2015] given at [facility] [address] [place], [place] [id number] 3Result Comment: [07/11/2018] [facility] 5Admin Note: given at [facility] in [place], [place] 6Location History[facility] 7Admin Note: boostrix [...] mL, 11 Refills, Maintenance, 01/06/21 14:51:00 EDT, [place], [facility] #[id number], Partial fill upon patient request if the prescriptionis for a schedule II opioid drug., 2 sprays Nares,... Start Date: 01/06/21 Status: Ordered dicyclomine 10 mg oral capsule 1 capsule = 10 mg, By Mouth, 4 times a day, PRN Pain , Moderate, # 28 capsule, 0 Refills, Maintenance, 05/11/21 15:51:00 EDT, Capsule, [email or web address] #[id number], Partial fill upon patient request if the prescription is for a schedule II opioid drug.... Start Date: 05/11/21 Stop Date: 05/18/21 Status: Ordered escitalopram 20 mg oral tablet 1 tablet = 20 mg, By Mouth, Daily, # 90 tablet, 1 Refills, Maintenance, 07/12/21 7:37:00 EST, Tablet, [facility] #[id number], 148.4, cm, 06/01/21 8:57:00 EDT, Height, 97.3, kg, 06/01/21 8:57:00 EDT, Dry Weight Start Date: 07/12/21 Stop Date: 01/08/22 Status: Ordered ferrous sulfate 325 mg oral enteric coated tablet 325 mg, 1, tablet, By Mouth, 2 times a day, may take with food to minimize abdominal discomfort, # 180 tablet, Refills 1, Tot. Refills 1, Maintenance, 07/12/21 7:38:00 EST, Route to Pharmacy Electronically, [facility] #[id number], 148.4, cm, 05/13... Start Date: 07/12/21 Stop [...] Maintenance,12/27/20 11:32:00 EDT, Route to Pharmacy Electronically, [facility] #[id number], Partial fill upon patient request if the prescription is for a sc... Start Date: 12/27/20 Status: Ordered isosorbide mononitrate 30 mg oral tablet, extended release 30 mg, 1, tablet, By Mouth, Daily in AM, # 30 tablet, Refills 3, Tot. Refills 3, Maintenance, 04/05/21 13:22:00 EDT, Route to Pharmacy Electronically, [email or web address] #[id number], Partial fill upon patient request if the prescription is for a schedule... Start Date: 04/05/21 Stop Date: 08/03/21 Status: Ordered isosorbide mononitrate 30 mg oral tablet, extended release 30 mg, 1, tablet, By Mouth, Daily in AM, # 30 tablet, Refills 3, Tot. Refills 3, Maintenance, 04/06/21 12:52:00 EDT, Route to Pharmacy Electronically, [facility] #[id number], Partial fill upon patient request if the prescription is for a schedule... Start Date: 04/06/21 Status: Ordered levothyroxine 0.025 mg oral tablet 1 tablet, By Mouth, Daily, BUBBLE PACK PLEASE, # 90 tablet, 1 Refills, Maintenance, 07/12/21 7:38:00 EST, Tablet, [facility] #[id number], 148.4, cm, 06/01/21 8:57:00 EDT, Height, 97.3, kg, 06/01/21 8:57:00 EDT, Dry Weight Start Date: 07/12/21 Stop Date: 01/08/22 Status: Ordered lisinopril 20 mg oral tablet 20 mg, 1, tablet, By Mouth, Daily, BUBBLE PACK PLEASE, # 90 tablet, Refills 1, Tot. Refills 1, Maintenance, 06/12/21 9:50:00 EDT, Route to Pharmacy Electronically, [facility] #[id number], 148.4,cm, 06/01/21 8:57:00 EDT, Height, 97.3, kg, 2... Start Date: 06/12/21 Stop Date: 12/09/21 Status: Ordered LORazepam 1 mg oral tablet 1 tablet = 1 mg, By Mouth, Daily, PRN as needed for anxiety, covering provider, # 30 tablet, 0 Refills, Maintenance, 08/08/21 17:07:00 EST, Tablet, [facility] #[id number], 148.4, cm, 06/01/21 8:57:00 EDT, Height, 97.3, kg, 06/01/21 8:57:00 EDT, D... Start Date: 08/08/21 Stop Date: 09/07/21 Status: Ordered LORazepam 1 mg oral tablet 1 tablet = 1 mg, By Mouth, Daily, PRN as needed for anxiety, # 30 tablet, 0 Refills, Maintenance, 03/24/21 12:18:00 EDT, Tablet, [email or web address] #[id number], 148.4, cm, 02/16/21 15:09:00 EDT, Height,97.6, kg, [...] 3 Refills, Maintenance, 04/05/21 13:22:00 EDT, Tablet, [facility] #[id number], Part... Start Date: 04/05/21 Stop Date: 08/03/21 Status: Ordered nortriptyline 50 mg oral capsule 50 mg, 1, capsule, By Mouth, Daily, # 90 capsule, Refills 1, Tot. Refills 1, Maintenance, 07/12/21 7:37:00 EST, Route to Pharmacy Electronically, [facility] #[id number], 148.4, cm, 06/01/21 8:57:00 EDT, Height, 97.3, kg, 06/01/21 8:57:00 EDT, Dry... Start Date: 07/12/21 Stop Date: 01/08/22 Status: Ordered omeprazole 20 mg oral enteric coated capsule 1 capsule = 20 mg, By Mouth, 2 times a day, BUBBLE PACK PLEASE, # 60 capsule, 3 Refills, Maintenance, 04/21/21 17:24:00 EDT, EC Capsule, [facility] #[id number], 148.4, cm, 02/16/21 15:09:00 EDT,Height, 97.6, kg, 02/15/21 17:00:00 EDT, Dry Weight Start Date: 04/21/21 Stop Date: 08/19/21 Status: Ordered ProAir HFA 90 mcg/inh inhalation aerosol 2 puffs, Inhalation, 4 times a day, PRN Wheezing/Shortness of Breath, # 2 each, 3 Refills, Maintenance, 11/08/20 17:08:00 EDT, Aerosol, [facility] #[id number], Partial fill upon patient request if the prescription is for a schedule II opioid drug... Start Date: 11/08/20 Stop Date: 03/08/21 Status: Ordered Singulair 10 mg oral tablet 10 mg, 1, tablet, By Mouth, Daily in PM, BUBBLE PACK PLEASE, # 30 tablet, Refills 5, Tot. Refills 5, Maintenance, 03/09/21 15:06:00 EDT, Route to Pharmacy Electronically, [facility] #[id number],148.4, cm, 02/16/21 15:09:00 EDT, Height, 97.6, kg,... Start Date: 03/09/21 Stop Date: 09/05/21 Status: Ordered umeclidinium 62.5 mcg/inh inhalation powder 1 inhalation = 62.5 mcg, Inhalation, Every 24 hours, doses should be taken at least 24 hours apart,# 30 each, 11 Refills, Maintenance, 01/06/21 14:47:00 EDT, Powder, [facility] #[id number], Partial fill upon patient request if the [...] tingling in hands(Confirmed) Active *[facility] [phone] CARE MANAG ER HELEN ROWDY(Confirmed) Active Pulmonary [...]
--- OUTSIDE RECORDS SUMMARY | 2023-03-06 14:48 | XMS_ITS | Continuity of Care Document ---
Author Name Unknown Organization [facility] Address [address] [address]- Care Team Providers Care Television Antenna Installer Name Role Phone Rj HAMILTON, Winsome Weiss Primary Care Physician Encounter [facility] Date(s): 03/07/20 - 03/14/[address] [address]- [facility] Attending Physician: Blaze Ash MD Referring Physician: Winsome De La Rosa [...] [07/11/2018] [facility] 2Result Comment: [11/11/2015] given at [facility] [address] [place] [address] [phone] 3Result Comment: [07/11/2018] [facility] 5Admin Note: given at [facility] in [place], [place] 6Location History[facility] 7Admin Note: boostrix [...] 10/21/19 14:37:00 EDT, Route to Pharmacy Electronically, [facility] #[id number], 149.9, cm, 1... Start Date: 10/21/19 Stop Date: 04/18/20 Status: Ordered Colace sodium 100 mg oral capsule 100 mg, 1, capsule, By Mouth, 2 times a day, BUBBLE PACK PLEASE, # 180 capsule, Refills 1, Tot. Refills 1, Maintenance, 04/18/20 14:37:00 EDT, Route to Pharmacy Electronically, [facility] #[id number], 149.9, cm, 03/07/20 10:17:00 EDT, Height, 103... [...] 2 Refills, Maintenance, 02/23/20 16:28:00 EDT, Tablet, [facility] #[id number], 149.9, cm, 02/23/20 13:20:00 EDT, Height, 94.4, kg, 05/21/19 10:46:00 EDT, Dry Weight Start Date: 02/23/20 Stop Date: 05/23/20 Status: Ordered FeroSul 325 mg oral tablet 1 tablet = 325 mg, By Mouth, 2 times a day, BUBBLE PACK PLEASE, # 60 tablet, 5 Refills, Soft Stop, 10/21/19 14:38:00 EDT, [facility] #[id number], 149.9, cm, 08/10/19 9:46:00 EST, Height, 94.4, kg, 05/21/19 10:46:00 EDT, Dry Weight Start Date: 10/21/19 Stop Date: 04/18/20 Status: Ordered ferrous sulfate 325 mg oral enteric coated tablet 325 mg, 1, tablet, By Mouth, 2 times a day, # 180 tablet, Refills 1, Tot. Refills 1, Maintenance, 12/24/18 14:50:03 EDT, Route to Pharmacy Electronically, [id number], [email or web address] Start Date: 12/24/18 Stop Date: 06/22/19 [...] 03/02/20 16:01:00 EDT, Route to Pharmacy Electronically, [facility] #[id number], 149.9, cm, 03/02/20 10:16:00 EDT, Height, 94.4... Start Date: 03/02/20 Stop Date: 04/01/20 Status: Ordered levothyroxine 0.025 mg oral tablet 1 tablet, By Mouth, Daily, BUBBLE PACK PLEASE, # 30 tablet, 5 Refills, Maintenance, 10/21/19 14:40:00 EDT, Tablet, [facility] #[id number], 149.9, cm, 08/10/19 9:46:00 EST, Height, 94.4, kg, 05/21/19 10:46:00 EDT, Dry Weight Start Date: 10/21/19 Stop Date: 04/18/20 Status: Ordered lisinopril 20 mg oral tablet 20 mg, 1, tablet, By Mouth, Daily, BUBBLE PACK PLEASE, # 30 tablet, Refills 5, Tot. Refills 5, Maintenance, 10/21/19 14:40:00 EDT, Route to Pharmacy Electronically, [facility] #[id number], 149.9, cm, 08/10/19 9:46:00 EST, Height, 94.4, kg, .. Start Date: 10/21/19 Stop Date: 04/18/20 Status: Ordered LORazepam 1 mg oral tablet 1 tablet = 1 mg, By Mouth, Daily, PRN as needed for anxiety, # 30 tablet, 0 Refills, Maintenance, 02/05/20 11:32:00 EDT, Tablet, [facility] #[id number], 149.9, cm, 02/05/20 11:20:00 EDT, Height,94.4, kg, 05/21/19 10:46:00 EDT, Dry Weight Start Date: 02/05/20 Stop Date: 03/06/20 Status: Ordered nortriptyline 50 mg oral capsule 50 mg, 1, capsule, By Mouth, Daily, BUBBLE PACK PLEASE, # 30 capsule, Refills 1, Tot. Refills 1, Maintenance, 02/15/20 11:10:00 EDT, Route to Pharmacy Electronically, [facility] #[id number], 149.9, cm, 02/05/20 11:20:00 EDT, Height, 94.4, kg, ... Start Date: 02/15/20 Stop Date: 04/15/20 Status: Ordered nystatin topical 855870 u/gm ointment 1 application, Topically, 3 times [...] Refills, Maintenance, 10/21/19 14:42:00 EDT, EC Capsule, [facility] #[id number], 149.9, cm, 08/10/19 9:46:00 EST, Height, 94.4, kg, 05/21/19 10:46:00 EDT, Dry Weight Start Date: 10/21/19 Stop Date: 04/18/20 Status: Ordered Singulair 10 mg oral tablet 10 mg, 1, tablet, By Mouth, Daily in PM, BUBBLE PACK PLEASE, # 30 tablet, Refills 5, Tot. Refills 5, Maintenance, 03/02/20 16:02:00 EDT, Route to Pharmacy Electronically, [facility] #[id number],149.9, cm, 03/02/20 10:16:00 EDT, Height, 94.4, kg,... [...] hands(Confirmed) Active *[facility] [phone] CARE MANAG ER HELEN RENO(Confirmed) Active Rib pain on left side(Confirmed) Active Pain in right shoulder(Confirmed) Active Urge urinary incontinence(Confirmed) Active 1tx with apc today due to bleeding. 2normal PFT's 11/22/14 r/o COPD 3childhood onset 4possibly Type III 53+ 6s/p bilateral salpingo-oophrectomy Vital Signs Most recent to oldest [Reference Range]: 1 Height 149.9 cm (03/07/20 10:17 AM) Weight 103.8 kg (03/07/20 10:17 AM) Pulse Rate [55-90 bpm] 97 bpm *H* (03/07/20 10:17 AM) Body Mass Index [18.5-24.99] 46.19 *>HHI* (03/07/20 10:17 AM) Blood Pressure [90-138/55-84 mm Hg] 142/ 43mm Hg *H* (03/07/20 10:17 AM) Temperature [96.8-100.4 DegF] 98.1 DegF (03/07/20 10:17 AM) Blood pressure sites Arm, right (03/07/20 10:17 AM) Temperature Route Tympanic (03/07/20 10:17 AM) Dry Weight 103.8 kg (03/07/20 10:17 AM) Weight Obtained Via Standing scale (03/07/20 10:17 AM) Dry Weight Obtained Via Standing scale (03/07/20 10:17 AM) Social History Social History Type Response Smoking Status Former smoker; Tobac co user in household: No; Type: Cigarettes; Stopped at age: 48; Tobacco use times per day: up to 2 ppd; Started at age: 16; entered on: 11/08/14 Sex
--- OUTSIDE RECORDS SUMMARY | 2023-03-06 14:48 | XMS_ITS | Continuity of Care Document ---
Author Name Unknown Organization [facility] Address [address] [place] [address]- Care Team Providers Care Unemployment Benefits Claims Taker Name Role Phone Rj HEAD WAITER, Winsome Weiss Primary Care Physician [phone] Encounter [facility] Date(s): 07/10/21 - 08/09/21 [facility] [address] [address]- Allergies, Adverse Reactions, Alerts Substance Reaction Severity [...] [07/11/2018] [facility] 2Result Comment: [11/11/2015] given at [facility] [address] [place], [place] [id number] 3Result Comment: [07/11/2018] [facility] 5Admin Note: given at [facility] in [place], [place] 6Location History[facility] 7Admin Note: boostrix [...] mL, 11 Refills, Maintenance, 01/06/21 14:51:00 EDT, [place], [facility] #[id number], Partial fill upon patient request if the prescriptionis for a schedule II opioid drug., 2 sprays Nares,... Start Date: 01/06/21 Status: Ordered dicyclomine 10 mg oral capsule 1 capsule = 10 mg, By Mouth, 4 times a day, PRN Pain , Moderate, # 28 capsule, 0 Refills, Maintenance, 05/11/21 15:51:00 EDT, Capsule, [email or web address] #[id number], Partial fill upon patient request if the prescription is for a schedule II opioid drug.... Start Date: 05/11/21 Stop Date: 05/18/21 Status: Ordered escitalopram 20 mg oral tablet 1 tablet = 20 mg, By Mouth, Daily, # 90 tablet, 1 Refills, Maintenance, 07/12/21 7:37:00 EST, Tablet, [email or web address] #[id number], 148.4, cm, 06/01/21 8:57:00 EDT, Height, 97.3, kg, 06/01/21 8:57:00 EDT, Dry Weight Start Date: 07/12/21 Stop Date: 01/08/22 Status: Ordered ferrous sulfate 325 mg oral enteric coated tablet 325 mg, 1, tablet, By Mouth, 2 times a day, may take with food to minimize abdominal discomfort, # 180 tablet, Refills 1, Tot. Refills 1, Maintenance, 07/12/21 7:38:00 EST, Route to Pharmacy Electronically, [facility] #[id number], 148.4, cm, 05/13... Start Date: 07/12/21 Stop [...] Maintenance,12/27/20 11:32:00 EDT, Route to Pharmacy Electronically, [facility] #[id number], Partial fill upon patient request if the prescription is for a sc... Start Date: 12/27/20 Status: Ordered isosorbide mononitrate 30 mg oral tablet, extended release 30 mg, 1, tablet, By Mouth, Daily in AM, # 30 tablet, Refills 3, Tot. Refills 3, Maintenance, 04/05/21 13:22:00 EDT, Route to Pharmacy Electronically, [facility] #[id number], Partial fill upon patient request if the prescription is for a schedule... Start Date: 04/05/21 Stop Date: 08/03/21 Status: Ordered isosorbide mononitrate 30 mg oral tablet, extended release 30 mg, 1, tablet, By Mouth, Daily in AM, # 30 tablet, Refills 3, Tot. Refills 3, Maintenance, 04/06/21 12:52:00 EDT, Route to Pharmacy Electronically, [facility] #[id number], Partial fill upon patient request if the prescription is for a schedule... Start Date: 04/06/21 Status: Ordered levothyroxine 0.025 mg oral tablet 1 tablet, By Mouth, Daily, BUBBLE PACK PLEASE, # 90 tablet, 1 Refills, Maintenance, 07/12/21 7:38:00 EST, Tablet, [facility] #[id number], 148.4, cm, 06/01/21 8:57:00 EDT, Height, 97.3, kg, 06/01/21 8:57:00 EDT, Dry Weight Start Date: 07/12/21 Stop Date: 01/08/22 Status: Ordered lisinopril 20 mg oral tablet 20 mg, 1, tablet, By Mouth, Daily, BUBBLE PACK PLEASE, # 90 tablet, Refills 1, Tot. Refills 1, Maintenance, 06/12/21 9:50:00 EDT, Route to Pharmacy Electronically, [facility] #[id number], 148.4,cm, 06/01/21 8:57:00 EDT, Height, 97.3, kg, 2... Start Date: 06/12/21 Stop Date: 12/09/21 Status: Ordered LORazepam 1 mg oral tablet 1 tablet = 1 mg, By Mouth, Daily, PRN as needed for anxiety, covering provider, # 30 tablet, 0 Refills, Maintenance, 08/08/21 17:07:00 EST, Tablet, [facility] #[id number], 148.4, cm, 06/01/21 8:57:00 EDT, Height, 97.3, kg, 06/01/21 8:57:00 EDT, D... Start Date: 08/08/21 Stop Date: 09/07/21 Status: Ordered LORazepam 1 mg oral tablet 1 tablet = 1 mg, By Mouth, Daily, PRN as needed for anxiety, # 30 tablet, 0 Refills, Maintenance, 03/24/21 12:18:00 EDT, Tablet, [facility] #[id number], 148.4, cm, 02/16/21 15:09:00 EDT, Height,97.6, kg, [...] 3 Refills, Maintenance, 04/05/21 13:22:00 EDT, Tablet, [facility] #[id number], Part... Start Date: 04/05/21 Stop Date: 08/03/21 Status: Ordered nortriptyline 50 mg oral capsule 50 mg, 1, capsule, By Mouth, Daily, # 90 capsule, Refills 1, Tot. Refills 1, Maintenance, 07/12/21 7:37:00 EST, Route to Pharmacy Electronically, [facility] #[id number], 148.4, cm, 06/01/21 8:57:00 EDT, Height, 97.3, kg, 06/01/21 8:57:00 EDT, Dry... Start Date: 07/12/21 Stop Date: 01/08/22 Status: Ordered omeprazole 20 mg oral enteric coated capsule 1 capsule = 20 mg, By Mouth, 2 times a day, BUBBLE PACK PLEASE, # 60 capsule, 3 Refills, Maintenance, 04/21/21 17:24:00 EDT, EC Capsule, [email or web address] #[id number], 148.4, cm, 02/16/21 15:09:00 EDT,Height, 97.6, kg, 02/15/21 17:00:00 EDT, Dry Weight Start Date: 04/21/21 Stop Date: 08/19/21 Status: Ordered ProAir HFA 90 mcg/inh inhalation aerosol 2 puffs, Inhalation, 4 times a day, PRN Wheezing/Shortness of Breath, # 2 each, 3 Refills, Maintenance, 11/08/20 17:08:00 EDT, Aerosol, [email or web address] #[id number], Partial fill upon patient request if the prescription is for a schedule II opioid drug... Start Date: 11/08/20 Stop Date: 03/08/21 Status: Ordered Singulair 10 mg oral tablet 10 mg, 1, tablet, By Mouth, Daily in PM, BUBBLE PACK PLEASE, # 30 tablet, Refills 5, Tot. Refills 5, Maintenance, 03/09/21 15:06:00 EDT, Route to Pharmacy Electronically, [facility] #[id number],148.4, cm, 02/16/21 15:09:00 EDT, Height, 97.6, kg,... Start Date: 03/09/21 Stop Date: 09/05/21 Status: Ordered umeclidinium 62.5 mcg/inh inhalation powder 1 inhalation = 62.5 mcg, Inhalation, Every 24 hours, doses should be taken at least 24 hours apart,# 30 each, 11 Refills, Maintenance, 01/06/21 14:47:00 EDT, Powder, [facility] #[id number], Partial fill upon patient request if the [...] in hands(Confirmed) Active *[facility] [phone] CARE MANAG ER HELEN RENO(Confirmed) Active Pulmonary [...]
--- OUTSIDE RECORDS SUMMARY | 2023-03-06 14:48 | XMS_ITS | Continuity of Care Document ---
Author Name Unknown Organization [facility] Address [address] [place] [address]- Care Team Providers Care Window Covering Sales Consultant Name Role Phone Rj AGENTS' RECORDS CLERK, Winsome Weiss Primary Care Physician Encounter [facility] Date(s): 06/21/20 - 08/05/20 [facility] [address] [place] [address]- Attending Physician: Not on Staff, Attending MD [...] [07/11/2018] [facility] 2Result Comment: [11/11/2015] given at [facility] [address] [place], [place] [id number] 3Result Comment: [07/11/2018] [facility] 5Admin Note: given at [facility] in [place], [place] 6Location History[facility] 7Admin Note: boostrix [...] 06/21/20 16:00:00 EST, Route to Pharmacy Electronically, [facility] #[id number], 149.9, cm, 06/21/20 13:54:00 EST, Height, 103.8, [...] 5 Refills, Maintenance, 07/22/20 9:23:00 EST, Tablet, [facility] #[id number], 153, cm, 07/22/20 9:04:00 EST, Height, 106, kg, 07/08/20 13:49:00 EST, Dry Weight Start Date: 07/22/20 Stop Date: 01/18/21 Status: Ordered ferrous sulfate 325 mg oral enteric coated tablet 325 mg, 1, tablet, By Mouth, 2 times a day, # 180 tablet, Refills 1, Tot. Refills 1, Maintenance, 12/24/18 14:50:03 EDT, Route to Pharmacy Electronically, [id number], [facility] Start Date: 12/24/18 Stop Date: 06/22/19 Status: Ordered Flovent HFA 220 mcg/inh inhalation aerosol 2 puffs, Inhalation, 2 times a day, # 1 each, 6 Refills, Maintenance, 05/30/20 10:57:00 EDT, Aerosol, [facility] #[id number], 149.9, cm, 05/30/20 10:53:00 EDT, Height, 103.8, kg, 03/07/20 10:17:00 EDT, Dry Weight Start Date: 05/30/20 Stop Date: 12/26/20 Status: Ordered gabapentin 100 mg oral capsule 100 mg, 1, capsule, By Mouth, 2 times a day, BUBBLE PACK PLEASE, # 60 capsule, Refills 3, Tot. Refills 3, Maintenance, 07/22/20 9:24:00 EST, Route to Pharmacy Electronically, [facility] #[id number], 153, cm, 07/22/20 9:04:00 EST, Height, 106, kg,... Start Date: 07/22/20 Stop Date: 11/19/20 Status: Ordered levothyroxine 0.025 mg oral tablet 1 tablet, By Mouth, Daily, BUBBLE PACK PLEASE, # 30 tablet, 5 Refills, Maintenance, 07/22/20 9:24:00 EST, Tablet, [facility] #[id number], 153, cm, 07/22/20 9:04:00 EST, Height, 106, kg, 07/08/2013:49:00 EST, Dry Weight Start Date: 07/22/20 Stop Date: 01/18/21 Status: Ordered lisinopril 20 mg oral tablet 20 mg, 1, tablet, By Mouth, Daily, BUBBLE PACK PLEASE, # 30 tablet, Refills 5, Tot. Refills 5, Maintenance, 04/27/20 9:21:00 EDT, Route to Pharmacy Electronically, [facility] #[id number], 149.9,cm, 04/27/20 9:00:00 EDT, Height, 103.8, kg, 03/07/... Start Date: 04/27/20 Stop Date: 10/24/20 Status: Ordered LORazepam 1 mg oral tablet 1 tablet = 1 mg, By Mouth, Daily, PRN as needed for anxiety, # 30 tablet, 0 Refills, Maintenance, 07/22/20 9:23:00 EST, Tablet, [facility] #[id number], 153, cm, 07/22/20 9:04:00 EST, Height, 106, kg, 07/08/20 13:49:00 EST, Dry Weight Start Date: 12/11/20 Stop Date: 08/21/20 Status: Ordered nortriptyline 50 mg oral capsule 50 mg, 1, capsule, By Mouth, Daily, BUBBLE PACK PLEASE, # 30 capsule, Refills 6, Tot. Refills 6, Maintenance, 03/25/20 19:21:00 EDT, Route to Pharmacy Electronically, [facility] #[id number], 149.9, cm, 03/07/20 10:17:00 EDT, Height, 103.8, kg, 07... Start Date: 03/25/20 Stop Date: 10/21/20 Status: Ordered nystatin topical 482464 u/gm ointment 1 application, Topically, 3 times [...] Refills, Maintenance, 10/24/20 9:19:00 EDT, EC Capsule, [facility] #[id number], 149.9, cm, 06/14/20 14:58:00 EST, Height, 101, kg, 06/07/20 10:02:00 EDT, Dry Weight Start Date: 10/24/20 Stop Date: 02/21/21 Status: Ordered Singulair 10 mg oral tablet 10 mg, 1, tablet, By Mouth, Daily in PM, BUBBLE PACK PLEASE, # 30 tablet, Refills 5, Tot. Refills 5, Maintenance, 07/22/20 9:24:00 EST, Route to Pharmacy Electronically, [facility] #[id number], 153, cm, 07/22/20 9:04:00 EST, Height, 106, [...] Numbness and tingling in hands(Confirmed) Active *[facility] [phone] CARE MANAG ER HELEN JUICEE(Confirmed) Active Rib pain on left side(Confirmed) Active [...]
--- OUTSIDE RECORDS SUMMARY | 2023-03-06 14:48 | XMS_ITS | Continuity of Care Document ---
Author Name Unknown Organization [facility] Address [address] [place] [address]- Care Team Providers Care Real Property Evaluator Name Role Phone Rj HAMILTON, Winsome Weiss Primary Care Physician [phone] Encounter [facility] Date(s): 09/22/20 - 09/29/[address] [address]- Attending Physician: Nilsa LE, Blaze Tellez Referring Physician: Winsome De La Rosa NP [...] [07/11/2018] [facility] 2Result Comment: [11/11/2015] given at [facility] [address] [place] [address] [phone] 3Result Comment: [07/11/2018] [facility] 5Admin Note: given at [facility] in [place], [place] 6Location History[facility] 7Admin Note: boostrix [...] 06/21/20 16:00:00 EST, Route to Pharmacy Electronically, [facility] #[id number], 149.9, cm, 06/21/20 13:54:00 EST, Height, 103.8, [...] 5 Refills, Maintenance, 07/22/20 9:23:00 EST, Tablet, [facility] #[id number], 153, cm, 07/22/20 9:04:00 EST, Height, 106, kg, 07/08/20 13:49:00 EST, Dry Weight Start Date: 07/22/20 Stop Date: 01/18/21 Status: Ordered ferrous sulfate 325 mg oral enteric coated tablet 325 mg, 1, tablet, By Mouth, 2 times a day, # 180 tablet, Refills 1, Tot. Refills 1, Maintenance, 12/24/18 14:50:03 EDT, [id number] Start Date: 12/24/18 Stop Date: 06/22/19 Status: Ordered Flovent HFA 220 mcg/inh inhalation aerosol 2 puffs, Inhalation, 2 times a day, # 1 each, 6 Refills, Maintenance, 05/30/20 10:57:00 EDT, Aerosol, [facility] #[id number], 149.9, cm, 05/30/20 10:53:00 EDT, Height, 103.8, kg, 03/07/20 10:17:00 EDT, Dry Weight Start Date: 05/30/20 Stop Date: 12/26/20 Status: Ordered gabapentin 100 mg oral capsule 200 mg, 2, capsule, By Mouth, 3 times a day, # 180 capsule, Refills 1, Tot. Refills 1, Maintenance,09/14/20 15:22:00 EST, Route to Pharmacy Electronically, [facility] #[id number], Partial fill upon patient request if the prescription is for a sc... Start Date: 09/14/20 Status: Ordered levothyroxine 0.025 mg oral tablet 1 tablet, By Mouth, Daily, BUBBLE PACK PLEASE, # 30 tablet, 5 Refills, Maintenance, 07/22/20 9:24:00 EST, Tablet, [facility] #[id number], 153, cm, 07/22/20 9:04:00 EST, Height, 106, kg, 07/08/2013:49:00 EST, Dry Weight Start Date: 07/22/20 Stop Date: 01/18/21 Status: Ordered lisinopril 20 mg oral tablet 20 mg, 1, tablet, By Mouth, Daily, BUBBLE PACK PLEASE, # 30 tablet, Refills 5, Tot. Refills 5, Maintenance, 04/27/20 9:21:00 EDT, Route to Pharmacy Electronically, [facility] #[id number], 149.9,cm, 04/27/20 9:00:00 EDT, Height, 103.8, kg, ... Start Date: 04/27/20 Stop Date: 10/24/20 Status: Ordered LORazepam 1 mg oral tablet 1 tablet = 1 mg, By Mouth, Daily, PRN as needed for anxiety, # 30 tablet, 0 Refills, Maintenance, 09/16/20 15:53:00 EST, Tablet, [facility] #[id number], 153, cm, 09/14/20 13:47:00 EST, Height, 106, kg, 07/08/20 13:49:00 EST, Dry Weight Start Date: 09/16/20 Stop Date: 10/16/20 Status: Ordered nortriptyline 50 mg oral capsule 50 mg, 1, capsule, By Mouth, Daily, BUBBLE PACK PLEASE, # 30 capsule, Refills 6, Tot. Refills 6, Maintenance, 03/25/20 19:21:00 EDT, Route to Pharmacy Electronically, [facility] #[id number], 149.9, cm, 03/07/20 10:17:00 EDT, Height, 103.8, kg, 07... Start Date: 03/25/20 Stop Date: 10/21/20 Status: Ordered nystatin topical 198779 u/gm ointment 1 application, Topically, 3 times [...] Refills, Maintenance, 10/24/20 9:19:00 EDT, EC Capsule, [facility] #[id number], 149.9, cm, 06/14/20 14:58:00 EST, Height, 101, kg, 06/07/20 10:02:00 EDT, Dry Weight Start Date: 10/24/20 Stop Date: 02/21/21 Status: Ordered Singulair 10 mg oral tablet 10 mg, 1, tablet, By Mouth, Daily in PM, BUBBLE PACK PLEASE, # 30 tablet, Refills 5, Tot. Refills 5, Maintenance, 07/22/20 9:24:00 EST, Route to Pharmacy Electronically, [facility] #[id number], 153, cm, 07/22/20 9:04:00 EST, Height, 106, [...] Numbness and tingling in hands(Confirmed) Active *[facility] [phone] CARE MANAG ER HELEN RENO(Confirmed) Active Rib pain on left side(Confirmed) Active Pain in right shoulder(Confirmed) Active Urge urinary incontinence(Confirmed) Active 1tx with apc today due to bleeding. 2normal PFT's 11/22/14 r/o COPD 3childhood onset 4possibly Type III 53+ 6s/p bilateral salpingo-oophrectomy Vital Signs Most recent to oldest [Reference Range]: 1 Height 153 cm (09/22/20 1:14 PM) Pulse Rate [55-90 bpm] 117 bpm *H* (09/22/20 1:14 PM) Blood Pressure [90-138/55-84 mm Hg] 152/ 52mm Hg *H* (09/22/20 1:14 PM) Temperature [96.8-100.4 DegF] 98.6 DegF (09/22/20 1:14 PM) Blood pressure sites Arm, right (09/22/20 1:14 PM) Temperature Route Tympanic (09/22/20 1:14 PM) Social History Social History Type Response Smoking Status Former smoker; Tobac co user in household: No; Type: Cigarettes; Tobacco use times per day: up to 2 ppd; Started at age: 16; Stopped at age: 48; entered on: 11/08/14 Sex
--- OUTSIDE RECORDS SUMMARY | 2023-03-06 14:48 | XMS_ITS | Continuity of Care Document ---
Author Name Unknown Organization [facility] Address [address] [place] [address]- Care Team Providers Care Confidential Secretary Name Role Phone Rj AQUATIC PERFORMER, Winsome Weiss Primary Care Physician Encounter [facility] Date(s): 02/07/21 - 03/19/21 [facility] [address] [place] [address]- Attending Physician: Kelton Man DO Referring Physician: Not on Staff, Referring [...] [07/11/2018] [facility] 2Result Comment: [11/11/2015] given at [facility] [address] [facility] [id number] 3Result Comment: [07/11/2018] [facility] 4Location History: [facility] 5Admin Note: given at [facility] in [place], [place] 6Location History: [facility] 7Admin Note: boostrix [...] mL, 11 Refills, Maintenance, 01/06/21 14:51:00 EDT, [place] #[id number], Partial fill upon patient request if the prescriptionis for a schedule II opioid drug., 2 sprays Nares,... Start Date: 01/06/21 Status: Ordered escitalopram 20 mg oral tablet 1 tablet = 20 mg, By Mouth, Daily, # 90 tablet, 1 Refills, Maintenance, 02/14/21 7:29:00 EDT, Tablet, [facility] #[id number], 153, cm, 02/14/21 7:06:00 EDT, Height, 102.4, kg, 11/13/20 18:51:00 EDT, Dry Weight Start Date: 02/14/21 Stop Date: 08/13/21 Status: Ordered ferrous sulfate 325 mg oral enteric coated tablet 325 mg, 1, tablet, By Mouth, 2 times a day, may take with food to minimize abdominal discomfort, # 180 tablet, Refills 1, Tot. Refills 1, Maintenance, 10/04/20 16:08:00 EST, Route to Pharmacy Electronically, [facility] #[id number], 150, cm, 09/26... Start Date: 10/04/20 Stop [...] Maintenance,12/27/20 11:32:00 EDT, Route to Pharmacy Electronically, [facility] #[id number], Partial fill upon patient request if the prescription is for a sc... Start Date: 12/27/20 Status: Ordered levothyroxine 0.025 mg oral tablet 1 tablet, By Mouth, Daily, BUBBLE PACK PLEASE, # 90 tablet, 1 Refills, Maintenance, 02/14/21 7:27:00 EDT, Tablet, [facility] #[id number], 153, cm, 02/14/21 7:06:00 EDT, Height, 102.4, kg, 11/13/20 18:51:00 EDT, Dry Weight Start Date: 02/14/21 Stop Date: 08/13/21 Status: Ordered lisinopril 20 mg oral tablet 20 mg, 1, tablet, By Mouth, Daily, BUBBLE PACK PLEASE, # 30 tablet, Refills 5, Tot. Refills 5, Maintenance, 12/15/20 9:29:00 EDT, Route to Pharmacy Electronically, [facility] #[id number], 153, cm, 11/29/20 15:11:00 EDT, Height, 102.4, kg, ... Start Date: 12/15/20 Stop Date: 06/13/21 Status: Ordered LORazepam 1 mg oral tablet 1 tablet = 1 mg, By Mouth, Daily, PRN as needed for anxiety, # 30 tablet, 0 Refills, Maintenance, 02/14/21 7:25:00 EDT, Tablet, [facility] #[id number], 153, cm, 02/14/21 7:06:00 EDT, Height, 102.4, [...] 02/14/21 7:26:00 EDT, Route to Pharmacy Electronically, [facility] #[id number], 153, cm, 02/14/21 7:06:00 EDT, Height, 102.4, kg, 11/13/20 18:51:00 EDT, Dry... Start Date: 02/14/21 Stop Date: 08/13/21 Status: Ordered omeprazole 20 mg oral enteric coated capsule 1 capsule = 20 mg, By Mouth, 2 times a day, BUBBLE PACK PLEASE, # 60 capsule, 3 Refills, Maintenance, 12/22/20 9:44:00 EDT, EC Capsule, [facility] #[id number], 153, cm, 11/29/20 15:11:00 EDT, Height, 102.4, kg, 11/13/20 18:51:00 EDT, Dry Weight Start Date: 12/22/20 Stop Date: 04/21/21 Status: Ordered ProAir HFA 90 mcg/inh inhalation aerosol 2 puffs, Inhalation, 4 times a day, PRN Wheezing/Shortness of Breath, # 2 each, 3 Refills, Maintenance, 11/08/20 17:08:00 EDT, Aerosol, [facility] #[id number], Partial fill upon patient request if the prescription is for a schedule II opioid drug... Start Date: 11/08/20 Stop Date: 03/08/21 Status: Ordered Singulair 10 mg oral tablet 10 mg, 1, tablet, By Mouth, Daily in PM, BUBBLE PACK PLEASE, # 30 tablet, Refills 5, Tot. Refills 5, Maintenance, 03/09/21 15:06:00 EDT, Route to Pharmacy Electronically, [facility] #[id number],148.4, cm, 02/16/21 15:09:00 EDT, Height, 97.6, kg,... Start Date: 03/09/21 Stop Date: 09/05/21 Status: Ordered umeclidinium 62.5 mcg/inh inhalation powder 1 inhalation = 62.5 mcg, Inhalation, Every 24 hours, doses should be taken at least 24 hours apart,# 30 each, 11 Refills, Maintenance, 01/06/21 14:47:00 EDT, Powder, [facility] #[id number], Partial fill upon patient request if the [...] Active Numbness and tingling in hands(Confirmed) Active *[facility] [phone] CARE MANAG ER HELEN RENO(Confirmed) Active Pulmonary [...]
--- OUTSIDE RECORDS SUMMARY | 2023-03-06 14:48 | XMS_ITS | Continuity of Care Document ---
Author Name Unknown Organization [facility] Address [address] [place] [address]- Care Team Providers Care Network Developer Name Role Phone Rj BUSINESS INTELLIGENCE ETL DEVELOPER, Winsome Weiss Primary Care Physician Encounter [facility] Date(s): 03/31/20 - 04/07/20 [facility] [address] [place] [address]- Encounter Diagnosis Chest mass(Discharge Diagnosis) - 03/31/20 Breast tenderness(Discharge Diagnosis) - 03/31/20 Breast mass, right(Discharge Diagnosis) - 03/31/20 Difficulty swallowing(Discharge Diagnosis) - 03/31/20 Intertrigo(Discharge Diagnosis) - 03/31/20 Attending Physician: Nazia Knapp NP Allergies, Adverse Reactions, Alerts Substance Reaction [...] [11/11/2015] given at [facility] [address] [place] [address] [phone] 3Result Comment: [07/11/2018] [facility] 4Location History: [facility] 5Admin Note: given at [facility] in [place], [place] 6Location History: [facility] 7Admin Note: [facility] 12-28-2012 Medications albuterol [...] 04/14/20 17:50:00 EDT, 03/31/20 17:50:00 EDT, Cream, [facility] #[id number], 1 applicationTopically 2 times a day,x14 days,Instr:apply to aff... Start Date: 03/31/20 Stop Date: 04/14/20 Status: Ordered Colace sodium 100 mg oral capsule 100 mg, 1, capsule, By Mouth, 2 times a day, for 90 days, BUBBLE PACK PLEASE, # 180 capsule, Refills 1, Tot. Refills 1, Hard Stop 09/11/20 14:44:00 EST, 03/15/20 14:44:00 EDT, Route to Pharmacy Electronically, [facility] #[id number], 149.9, cm, 0... Start Date: 03/15/20 Stop Date: 09/11/20 Status: Ordered Colace sodium 100 mg oral capsule 100 mg, 1, capsule, By Mouth, 2 times a day, BUBBLE PACK PLEASE, # 180 capsule, Refills 1, Tot. Refills 1, Maintenance, 04/18/20 14:37:00 EDT, Route to Pharmacy Electronically, [facility] #[id number], 149.9, cm, 03/07/20 10:17:00 EDT, Height, 103... [...] 2 Refills, Maintenance, 02/23/20 16:28:00 EDT, Tablet, [facility] #[id number], 149.9, cm, 02/23/20 13:20:00 EDT, Height, 94.4, kg, 05/21/19 10:46:00 EDT, Dry Weight Start Date: 02/23/20 Stop Date: 05/23/20 Status: Ordered FeroSul 325 mg oral tablet 1 tablet = 325 mg, By Mouth, 2 times a day, BUBBLE PACK PLEASE, # 60 tablet, 5 Refills, Soft Stop, 04/18/20 14:38:00 EDT, [facility] #[id number], 149.9, cm, 03/07/20 10:17:00 EDT, Height, 103.8,kg, 03/07/20 10:17:00 EDT, Dry Weight Start Date: 04/18/20 Stop Date: 10/15/20 Status: Ordered FeroSul 325 mg oral tablet 1 tablet = 325 mg, By Mouth, 2 times a day, for 30 days, BUBBLE PACK PLEASE, # 60 tablet, 5 Refills, Hard Stop 04/18/20 14:38:00 EDT, 10/21/19 14:38:00 EDT, [facility] #66063, 149.9, cm, 08/10/19 9:46:00 EST, Height, 94.4, kg, 05/21/19 10:46... Start Date: 10/21/19 Stop Date: 04/18/20 Status: Ordered ferrous sulfate 325 mg oral enteric coated tablet 325 mg, 1, tablet, By Mouth, 2 times a day, # 180 tablet, Refills 1, Tot. Refills 1, Maintenance, 12/24/18 14:50:03 EDT, Route to Pharmacy Electronically, [id number], [facility] Start Date: 12/24/18 Stop Date: 06/22/19 [...] 03/02/20 16:01:00 EDT, Route to Pharmacy Electronically, [facility] #[id number], 149.9, cm, 03/02/20 10:16:00 EDT, Height, 94.4... Start Date: 03/02/20 Stop Date: 04/01/20 Status: Ordered levothyroxine 0.025 mg oral tablet 1 tablet, By Mouth, Daily, BUBBLE PACK PLEASE, # 30 tablet, 5 Refills, Maintenance, 10/21/19 14:40:00 EDT, Tablet, [facility] #05306, 149.9, cm, 08/10/19 9:46:00 EST, Height, 94.4, kg, 05/21/19 10:46:00 EDT, Dry Weight Start Date: 10/21/19 Stop Date: 04/18/20 Status: Ordered lisinopril 20 mg oral tablet 20 mg, 1, tablet, By Mouth, Daily, BUBBLE PACK PLEASE, # 30 tablet, Refills 5, Tot. Refills 5, Maintenance, 10/21/19 14:40:00 EDT, Route to Pharmacy Electronically, [facility] #57807, 149.9, cm, 08/10/19 9:46:00 EST, Height, 94.4, kg, ... Start Date: 10/21/19 Stop Date: 04/18/20 Status: Ordered LORazepam 1 mg oral tablet 1 tablet = 1 mg, By Mouth, Daily, PRN as needed for anxiety, # 30 tablet, 0 Refills, Maintenance, 02/05/20 11:32:00 EDT, Tablet, [facility] #[id number], 149.9, cm, 02/05/20 11:20:00 EDT, Height,94.4, kg, 05/21/19 10:46:00 EDT, Dry Weight Start Date: 02/05/20 Stop Date: 03/06/20 Status: Ordered nortriptyline 50 mg oral capsule 50 mg, 1, capsule, By Mouth, Daily, BUBBLE PACK PLEASE, # 30 capsule, Refills 6, Tot. Refills 6, Maintenance, 03/25/20 19:21:00 EDT, Route to Pharmacy Electronically, [facility] #08692, 149.9, cm, 03/07/20 10:17:00 EDT, Height, 103.8, kg, 07... Start Date: 03/25/20 Stop Date: 10/21/20 Status: Ordered nystatin topical 263081 u/gm ointment 1 application, Topically, 3 times [...] Refills, Maintenance, 10/21/19 14:42:00 EDT, EC Capsule, [facility] #87070, 149.9, cm, 08/10/19 9:46:00 EST, Height, 94.4, kg, 05/21/19 10:46:00 EDT, Dry Weight Start Date: 10/21/19 Stop Date: 04/18/20 Status: Ordered Singulair 10 mg oral tablet 10 mg, 1, tablet, By Mouth, Daily in PM, BUBBLE PACK PLEASE, # 30 tablet, Refills 5, Tot. Refills 5, Maintenance, 03/02/20 16:02:00 EDT, Route to Pharmacy Electronically, [facility] #86376,149.9, cm, 03/02/20 10:16:00 EDT, Height, 94.4, kg,... [...] Numbness and tingling in hands(Confirmed) Active *[facility] [phone] CARE MANAG ER HELEN RENO(Confirmed) Active Rib pain on left side(Confirmed) Active Pain in right shoulder(Confirmed) Active Urge urinary incontinence(Confirmed) Active 1tx with apc today due to bleeding. 2normal PFT's 11/22/14 r/o COPD 3childhood onset 4possibly Type III 53+ 6s/p bilateral salpingo-oophrectomy Diagnosis Diagnosis Type Effective Dates Health Status Clinical Service Informant Chest mass Discharge Diagnosis 03/31/20 Breast tenderness Discharge Diagnosis 03/31/20 Breast mass, right Discharge Diagnosis 03/31/20 Difficulty swallowing Discharge Diagnosis 03/31/20 Intertrigo Discharge Diagnosis 03/31/20 Vital Signs Most recent to oldest [Reference Range]: 1 Height 149.9 cm (03/31/20 3:03 PM) Weight 99.5 kg (03/31/20 3:03 PM) Oxygen Saturation [94-100 %] 96 % (03/31/20 3:03 PM) Pulse Rate [55-90 bpm] 95 bpm *H* (03/31/20 3:03 PM) Body Mass Index [18.5-24.99] 44.28 *>HHI* (03/31/20 3:03 PM) Blood Pressure [90-138/55-84 mm Hg] 124/ 80mm Hg (03/31/20 3:03 PM) Temperature [96.8-100.4 DegF] 97.8 DegF (03/31/20 3:03 PM) Mode of Delivery (Oxygen) Room air (03/31/20 3:03 PM) Blood pressure sites Arm, left (03/31/20 3:03 PM) Temperature Route Temporal (03/31/20 3:03 PM) Weight Obtained Via Standing scale (03/31/20 3:03 PM) Social History Social History Type Response Smoking Status Former smoker; Tobac co user in household: No; Type: Cigarettes; Stopped at age: 48; Tobacco use times per day: up to 2 ppd; Started at age: 16; entered on: 11/08/14 Sex
--- OUTSIDE RECORDS SUMMARY | 2023-03-06 14:48 | XMS_ITS | Continuity of Care Document ---
Author Name Unknown Organization [facility] Address [address] [place] [address]- Care Team Providers Care Barrel Driller Name Role Phone Rj HAMILTON, Winsome Weiss Primary [id number] Date(s): 05/03/20 - 08/31/20 [facility] [address] [place] [id number]- Attending Physician: Winsome De La Rosa NP [...] [07/11/2018] [facility] 2Result Comment: [11/11/2015] given at [facility] [address] [place] [address] [phone] 3Result Comment: [07/11/2018] [facility] 5Admin Note: given at [facility] in [place], [place] 6[facility] 7Admin Note: boostrix [...] 06/21/20 16:00:00 EST, Route to Pharmacy Electronically, [facility] #[id number], 149.9, cm, 06/21/20 13:54:00 EST, Height, 103.8, [...] 5 Refills, Maintenance, 07/22/20 9:23:00 EST, Tablet, [facility] #[id number], 153, cm, 07/22/20 9:04:00 EST, Height, 106, kg, 07/08/20 13:49:00 EST, Dry Weight Start Date: 07/22/20 Stop Date: 01/18/21 Status: Ordered ferrous sulfate 325 mg oral enteric coated tablet 325 mg, 1, tablet, By Mouth, 2 times a day, # 180 tablet, Refills 1, Tot. Refills 1, Maintenance, 12/24/18 14:50:03 EDT, Route to Pharmacy Electronically, [id number] Start Date: 12/24/18 Stop Date: 06/22/19 Status: Ordered Flovent HFA 220 mcg/inh inhalation aerosol 2 puffs, Inhalation, 2 times a day, # 1 each, 6 Refills, Maintenance, 05/30/20 10:57:00 EDT, Aerosol, [facility] #[id number], 149.9, cm, 05/30/20 10:53:00 EDT, Height, 103.8, kg, 03/07/20 10:17:00 EDT, Dry Weight Start Date: 05/30/20 Stop Date: 12/26/20 Status: Ordered gabapentin 100 mg oral capsule 100 mg, 1, capsule, By Mouth, 2 times a day, BUBBLE PACK PLEASE, # 60 capsule, Refills 3, Tot. Refills 3, Maintenance, 07/22/20 9:24:00 EST, Route to Pharmacy Electronically, [facility] #[id number], 153, cm, 07/22/20 9:04:00 EST, Height, 106, kg,... Start Date: 07/22/20 Stop Date: 11/19/20 Status: Ordered levothyroxine 0.025 mg oral tablet 1 tablet, By Mouth, Daily, BUBBLE PACK PLEASE, # 30 tablet, 5 Refills, Maintenance, 07/22/20 9:24:00 EST, Tablet, [facility] #[id number], 153, cm, 07/22/20 9:04:00 EST, Height, 106, kg, 07/08/2013:49:00 EST, Dry Weight Start Date: 07/22/20 Stop Date: 01/18/21 Status: Ordered lisinopril 20 mg oral tablet 20 mg, 1, tablet, By Mouth, Daily, BUBBLE PACK PLEASE, # 30 tablet, Refills 5, Tot. Refills 5, Maintenance, 04/27/20 9:21:00 EDT, Route to Pharmacy Electronically, [facility] #[id number], 149.9,cm, 04/27/20 9:00:00 EDT, Height, 103.8, kg, 03/07/... Start Date: 04/27/20 Stop Date: 10/24/20 Status: Ordered LORazepam 1 mg oral tablet 1 tablet = 1 mg, By Mouth, Daily, PRN as needed for anxiety, # 30 tablet, 0 Refills, Maintenance, 07/22/20 9:23:00 EST, Tablet, [facility] #[id number], 153, cm, 07/22/20 9:04:00 EST, Height, 106, kg, 07/08/20 13:49:00 EST, Dry Weight Start Date: 07/22/20 Stop Date: 08/21/20 Status: Ordered nortriptyline 50 mg oral capsule 50 mg, 1, capsule, By Mouth, Daily, BUBBLE PACK PLEASE, # 30 capsule, Refills 6, Tot. Refills 6, Maintenance, 03/25/20 19:21:00 EDT, Route to Pharmacy Electronically, [facility] #[id number], 149.9, cm, 03/07/20 10:17:00 EDT, Height, 103.8, kg, 07... Start Date: 03/25/20 Stop Date: 10/21/20 Status: Ordered nystatin topical 457707 u/gm ointment 1 application, Topically, 3 times [...] Refills, Maintenance, 10/24/20 9:19:00 EDT, EC Capsule, [facility] #78957, 149.9, cm, 06/14/20 14:58:00 EST, Height, 101, kg, 06/07/20 10:02:00 EDT, Dry Weight Start Date: 10/24/20 Stop Date: 02/21/21 Status: Ordered Singulair 10 mg oral tablet 10 mg, 1, tablet, By Mouth, Daily in PM, BUBBLE PACK PLEASE, # 30 tablet, Refills 5, Tot. Refills 5, Maintenance, 07/22/20 9:24:00 EST, Route to Pharmacy Electronically, [facility] #[id number], 153, cm, 07/22/20 9:04:00 EST, Height, 106, [...] Numbness and tingling in hands(Confirmed) Active *[facility] [phone] CARE MANAG ER HELEN RENO(Confirmed) Active Rib [...]
--- OUTSIDE RECORDS SUMMARY | 2023-03-06 14:48 | XMS_ITS | Continuity of Care Document ---
Author Name Unknown Organization [facility] Address [address] [place] [address]- Care Team Providers Care Clinical Training Specialist Name Role Phone Rj COST CONTROLLER, Winsome M Primary Care Physician Encounter [facility] Date(s): 10/18/21 - [facility] [address] [place] [address]- Attending Physician: Rossy Mcclure DO Referring Physician: [...] [facility] 3Admin Note: given at [facility] in [place] 4Result Comment: [07/11/2018] [facility] 5Result Comment: [11/11/2015] given at [facility] [address] [place] [address] [phone] 6[facility] History[facility] 7Admin Note: [facility] 12-28-2012 Medications albuterol 0.083% inhalation solution 3 mL = 2.5 mg, Inhalation, Every 6 hours, PRN Wheezing/Shortness of Breath, # 60 each, 6 Refills, Maintenance, 10/29/14 10:00:25, Solution Start Date: 10/29/14 Status: Ordered escitalopram 20 mg oral tablet 1 tablet = 20 mg, By Mouth, Daily, # 90 tablet, 1 Refills, Maintenance, 11/29/21 7:27:00 EDT, Tablet, [facility] #68027, 150, cm, 11/03/21 13:46:00 EDT, Height, 100.8, [...] Maintenance,12/27/20 11:32:00 EDT, Route to Pharmacy Electronically, [facility] #[id number], Partial fill upon patient request if the prescription is for a sc... Start Date: 12/27/20 Status: Ordered Humalog Kwik Pen 100 units/mL subcutaneous injection See Instructions, 11/30/21@1155AM HUMALOG SLIDING SCALE 150-200 2 UNITS 250-300 4 UNITS 300-350 6 UNITS As needed with meals, # 3 mL, 6 Refills, Maintenance, 11/30/21 15:45:00 EDT, [facility] #[id number], Partial fill upon patient request if... Start Date: 11/30/21 Status: Ordered isosorbide mononitrate 30 mg oral tablet, extended release 30 mg, 1, tablet, By Mouth, Daily in AM, # 30 tablet, Refills 3, Tot. Refills 3, Maintenance, 04/06/21 12:52:00 EDT, Route to Pharmacy Electronically, [facility] #[id number], Partial fill upon patient request if the prescription is for a schedule... Start Date: 04/06/21 Status: Ordered Lantus Solostar Pen 100 units/mL subcutaneous solution = 15 units, Subcutaneous Infusion, Daily, with evening meal, # 15 mL, 3 Refills, Maintenance, 11/29/21 21:45:00 EDT, [facility] #31696, Partial fill upon patient request if the prescriptionis for a schedule II opioid drug., 150, cm, ... Start Date: 11/29/21 Status: Ordered levothyroxine 0.025 mg oral tablet 1 tablet, By Mouth, Daily, # 90 tablet, 1 Refills, Maintenance, 11/29/21 7:27:00 EDT, Tablet, [facility] #05973, 150, cm, 11/03/21 13:46:00 EDT, Height, 100.8, kg, 11/01/21 22:19:00 EDT, Dry Weight Start Date: 11/29/21 Stop Date: 05/28/22 Status: Ordered LORazepam 0.5 mg oral tablet 1 tablet = 0.5 mg, By Mouth, Daily, PRN Anxiety, # 24 tablet, 0 Refills, Maintenance, 11/29/21 7:28:00 EDT, Tablet, [facility] #65886, 150, cm, 11/03/21 13:46:00 EDT, Height, 100.8, [...] 10/03/21 16:04:00 EST, Route to Pharmacy Electronically, [facility] #[id number], Partial fill upon patientrequest if the prescription [...] 3 Refills, Maintenance, 04/05/21 13:22:00 EDT, Tablet, [facility] #27192, Part... Start Date: 04/05/21 Stop Date: 08/03/21 [...] 10/14/21 18:18:00 EST, Route to Pharmacy Electronically, [facility] #[id number],148.4, cm, 10/05/21 10:50:00 EST, Height, 104.5, kg... [...] 11 Refills, Maintenance, 01/06/21 14:47:00 EDT, Powder, [facility] #38902, Partial fill upon patient request if the [...] and tingling in hands(Confirmed) Active *[facility] [phone] CARE MANAG ER HELEN ROWDY(Confirmed) Active Hepatitis [...]
--- OUTSIDE RECORDS SUMMARY | 2023-03-06 14:48 | XMS_ITS | Continuity of Care Document ---
Author Name Unknown Organization [facility] Address [address] [place] [address]- Care Team Providers Care Embedded Systems Software Engineer Name Role Phone Rj ELECTROMEDICAL EQUIPMENT REPAIRER, Winsome Weiss Primary Care Physician Encounter [facility] Date(s): 09/29/19 - 01/13/[address] [address]- [facility] Attending Physician: Jaime Black DO Admitting Physician: [...] [07/11/2018] [facility] 2Result Comment: [11/11/2015] given at [facility] [address] [place] [address] [phone] 3Result Comment: [07/11/2018] [facility] 5Admin Note: given at [facility] in [place], [place] 6Location History[facility] 7Admin Note: boostrix [...] 10/21/19 14:37:00 EDT, Route to Pharmacy Electronically, [facility] #[id number], 149.9, cm, 08/10/19 9:46:00 EST, Height, 94.4... [...] 6 Refills, Maintenance, 10/21/19 14:37:00 EDT, Tablet, [facility] #58936, 149.9, cm, 08/10/19 9:46:00 EST, Height, 94.4, kg, 05/21/19 10:46:00 EDT, Dry Weight Start Date: 10/21/19 Status: Ordered FeroSul 325 mg oral tablet 1 tablet = 325 mg, By Mouth, 2 times a day, BUBBLE PACK PLEASE, # 60 tablet, 5 Refills, Soft Stop, 10/21/19 14:38:00 EDT, [facility] #25991, 149.9, cm, 08/10/19 9:46:00 EST, Height, 94.4, kg, 05/21/19 10:46:00 EDT, Dry Weight Start Date: 10/21/19 Stop Date: 04/18/20 Status: Ordered ferrous sulfate 325 mg oral enteric coated tablet 325 mg, 1, tablet, By Mouth, 2 times a day, # 180 tablet, Refills 1, Tot. Refills 1, Maintenance, 12/24/18 14:50:03 EDT, [id number] Start Date: 12/24/18 Stop Date: 06/22/19 [...] 12/04/19 14:46:00 EDT, Route to Pharmacy Electronically, [facility] #[id number], 149.9, cm, 08/10/19 9:46:00 EST, Height, 94.4,... Start Date: 12/04/19 Stop Date: 01/03/20 Status: Ordered levothyroxine 0.025 mg oral tablet 1 tablet, By Mouth, Daily, BUBBLE PACK PLEASE, # 30 tablet, 5 Refills, Maintenance, 10/21/19 14:40:00 EDT, Tablet, [facility] #25384, 149.9, cm, 08/10/19 9:46:00 EST, Height, 94.4, kg, 05/21/19 10:46:00 EDT, Dry Weight Start Date: 10/21/19 Stop Date: 04/18/20 Status: Ordered lisinopril 20 mg oral tablet 20 mg, 1, tablet, By Mouth, Daily, BUBBLE PACK PLEASE, # 30 tablet, Refills 5, Tot. Refills 5, Maintenance, 10/21/19 14:40:00 EDT, Route to Pharmacy Electronically, [facility] #51221, 149.9, cm, 08/10/19 9:46:00 EST, Height, 94.4, kg, ... Start Date: 10/21/19 Stop Date: 04/18/20 Status: Ordered LORazepam 1 mg oral tablet 1 tablet = 1 mg, By Mouth, Daily, PRN as needed for anxiety, # 30 tablet, 0 Refills, Maintenance, 12/17/19 15:01:00 EDT, Tablet, [facility] #[id number], 149.9, cm, 12/17/19 13:34:00 EDT, Height,94.4, kg, 05/21/19 10:46:00 EDT, Dry Weight Start Date: 12/17/19 Stop Date: 01/16/20 Status: Ordered nortriptyline 50 mg oral capsule 50 mg, 1, capsule, By Mouth, Daily, BUBBLE PACK PLEASE, # 30 capsule, Refills 0, Tot. Refills 0, Maintenance, 01/11/20 13:43:00 EDT, Route to Pharmacy Electronically, [facility] #77761, 149.9, cm, 12/31/19 13:16:00 EDT, Height, 94.4, kg, ... Start Date: 01/11/20 Stop Date: 02/10/20 Status: Ordered nystatin topical 023863 u/gm ointment 1 application, Topically, 3 times [...] Refills, Maintenance, 10/21/19 14:42:00 EDT, EC Capsule, [facility] #15679, 149.9, cm, 08/10/19 9:46:00 EST, Height, 94.4, kg, 05/21/19 10:46:00 EDT, Dry Weight Start Date: 10/21/19 Stop Date: 04/18/20 Status: Ordered Singulair 10 mg oral tablet 10 mg, 1, tablet, By Mouth, Daily in PM, BUBBLE PACK PLEASE, # 30 tablet, Refills 5, Tot. Refills 5, Maintenance, 10/21/19 14:41:00 EDT, Route to Pharmacy Electronically, [facility] #35298,149.9, cm, 08/10/19 9:46:00 EST, Height, 94.4, kg,... [...] tingling in hands(Confirmed) Active *[facility] [phone] CARE MANAG ER HELEN ROWDY(Confirmed) Active Rib [...]
--- OUTSIDE RECORDS SUMMARY | 2023-03-06 14:48 | XMS_ITS | Continuity of Care Document ---
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, iWnsome M Primary Care Physician [phone] Encounter [facility] Date(s): 06/12/22 - 06/15/[address] [address]- Discharge Disposition: A-Transfer VNA/Home Health Attending Physician: Melissa Laboy MD Admitting Physician: Sivakumar Parks DO Referring Physician: Sivakumar Parks DO Allergies, Adverse Reactions, Alerts Substance Reaction Severity Status penicillins gerd gi distress Headache Active Bee Stings anaphylaxis Persistent Severe Active aspirin Hives hives unknown Mild Active Immunizations Given and Recorded Vaccine Date Status Refusal Reason zoster vaccine, inactivated 06/04/22 Recorded zoster vaccine, inactivated 01/27/18 Recorded influenza virus vaccine, inactivated 06/04/22 Anthony rded influenza virus vaccine, inactivated 10/19/21 Give n [...] influenza virus vaccine, inactivated 05/01/10 Anthony rded hepatitis B adult vaccine 03/16/22 Recorded SARS-CoV-2 mRNA ([id number]) vax 03/16/22 Recorded SARS-CoV-2 (COVID-19) mRNA-1273 vaccine 06/21/21 R ecorded SARS-CoV-2 (COVID-19) Ad26 vaccine 11/20/20 Given Zoster Vaccine Live 4 07/10/18 Recorded Zoster Vaccine Live 5 11/09/15 Recorded Zoster Vaccine Live 08/19/12 Recorded pneumococcal 13-valent vaccine 01/27/18 Recorded pneumococcal 23-valent vaccine 6 07/19/15 Recorded pneumococcal 23-valent vaccine 03/31/10 Given Tet/Diphth/Acel, Pertussis (oldterm) 7 12/11/13 Gi sukhi 1Result Comment: [07/11/2018] [facility] 3Admin Note: given at [facility] in [place] 4Result Comment: [07/11/2018] [facility] 5Result Comment: [11/11/2015] given at [facility] [address] [place] [address] [phone] 6Location History: [facility] 7Admin Note: [facility] 12-28-2012 Medications Breo Ellipta 200 mcg-25 mcg/inh inhalation powder 1 puffs, Inhalation, Daily, # 1 each, 11 Refills, Maintenance, 12/20/21 15:11:00 EDT, Powder, [facility] #[id number], Partial fill upon patient request if the [...] 01/19/22 19:16:00 EDT, Route to Pharmacy Electronically, [facility] #[id number], Partial fill upon patientrequest if the prescription is for a schedule II op... Start Date: 01/19/22 Status: Ordered docusate sodium 100 mg oral capsule 100 mg, 1, capsule, By Mouth, Every 12 hours, PRN, # 60 capsule, Refills 0, Tot. Refills 0, Maintenance, Constipation, 05/07/22 19:59:00 EDT, Route to Pharmacy Electronically, [facility] #[id number], Partial fill upon patient request if the presc... Start Date: 05/07/22 Stop Date: 06/06/22 Status: Ordered escitalopram 20 mg oral tablet 1 tablet = 20 mg, By Mouth, Daily, # 90 tablet, 0 Refills, Maintenance, 05/07/22 20:00:00 EDT, Tablet, [facility] #76654, 150, cm, 05/02/22 15:04:00 EDT, Height, 98, kg, 03/07/22 19:54:00 EDT, Dry Weight Start Date: 05/07/22 Stop Date: 08/05/22 Status: Ordered ferrous sulfate 325 mg oral enteric coated tablet 325 mg, 1, tablet, By Mouth, 2 times a day, # 180 tablet, Refills 0, Tot. Refills 0, Maintenance, 05/03/22 16:52:00 EDT, Route to Pharmacy Electronically, [facility] #[id number], Partial fill upon patient request if the prescription is for a sche... Start Date: 05/03/22 Stop Date: 08/01/22 Status: Ordered Fioricet Tablet 2 tablet, Tablet, By Mouth, Every 4 hours, PRN for Headache, Routine, 06/14/22 15:53:00 EDT Notes: Butalbital 50mg, Acetaminophen 325mg, Caffeine 40mg per tablet Start Date: 06/14/22 Stop Date: 06/15/22 Status: Discontinued furosemide 20 mg oral tablet 20 mg, 1, tablet, By Mouth, 2 times a day, # 180 tablet, Refills 0, Tot. Refills 0, Maintenance, 05/07/22 19:59:00 EDT, Route to Pharmacy Electronically, [facility] #[id number], Partial fill upon patient request if the prescription is for a sched... Start Date: 05/07/22 Stop Date: 08/05/22 Status: Ordered gabapentin 100 mg oral capsule 200 mg, 2, capsule, By Mouth, 3 times a day, 2 capsules to equal 200 mg three times a day., # 180 capsule, Refills 0, Tot. Refills 0, Maintenance, 06/05/22 14:23:00 EDT, Route to Pharmacy Electronically, [facility] #[id number], Partial fill upon... Start Date: 06/05/22 Status: Ordered Gas-X See Instructions, 2 tablets 2 times a day, 0 Refills, Maintenance, 01/19/22 12:35:00 EDT, Partial fill upon patient request if the prescription is for a schedule II opioid drug. Start Date: 01/19/22 Status: Ordered lactulose 10 gm/15 ml oral syrup 30 mL = 20 Gm, By Mouth, 3 times a day, for 30 days, hold if bowel movement >3 /day, # 2,700 mL,0 Refills, Acute 07/15/22 12:26:00 EST, 06/15/22 12:26:00 EDT, Syrup, [facility], Partial fill upon patient request if the prescription is f... Start Date: 06/15/22 Stop Date: 07/15/22 Status: Ordered Lantus Solostar Pen 100 units/mL subcutaneous solution = 15 units, Subcutaneous Infusion, Daily, with evening meal, # 15 mL, 3 Refills, Maintenance, 11/29/21 21:45:00 EDT, [facility] #[id number], Partial fill upon patient request if the prescriptionis for a schedule II opioid drug., 150, cm, 2... Start Date: 11/29/21 Status: Ordered levothyroxine 0.025 mg oral tablet 1 tablet, By Mouth, Daily, # 90 tablet, 1 Refills, Maintenance, 05/07/22 19:58:00 EDT, Tablet, [facility] #62975, 150, cm, 05/02/22 15:04:00 EDT, Height, 98, kg, 03/07/22 19:54:00 EDT, Dry Weight Start Date: 05/07/22 Stop Date: 11/03/22 Status: Ordered LORazepam 0.5 mg oral tablet 1 tablet = 0.5 mg, By Mouth, Daily at bedtime, PRN Anxiety, USE SPARINGLY, # 30 tablet, 0 Refills, Maintenance, 05/11/22 7:10:00 EDT, Tablet, [facility] #[id number], Partial fill upon patient request if the prescription is for a schedule II opioi... Start Date: 05/11/22 Stop Date: 06/10/22 Status: Ordered magnesium oxide 400 mg oral [...] 0 Refills, Maintenance, 05/11/22 7:07:00 EDT, Tablet, [facility] #[id number], Partial fill upon patient request if the prescription is fora schedule II opioid drug., 150, cm, 05/02/22 15:04... Start Date: 05/11/22 Stop Date: 06/10/22 Status: Ordered midodrine 5 mg oral tablet 10 mg, Tablet, By Mouth, 06/15/22 9:00:00 EDT Start Date: 06/15/22 Stop Date: 06/15/22 Status: Completed nitroglycerin 0.4 mg sublingual tablet 1 tablet = 0.4 mg, Sublingual, Every 5 minutes, PRN as needed for chest pain, not to exceed 3 doses/15 min--if pain persists, seek medical attention, # 30 tablet, 3 Refills, Maintenance, 04/05/21 13:22:00 EDT, Tablet, [facility] #[id number], Part... Start Date: 04/05/21 Stop Date: 08/03/21 Status: Ordered NovoLOG FlexPen 100 units/mL injectable solution See Instructions, Subcutaneous Infusion 3 times a day before meals. Sliding scale:: 150-200 2 [id number] 4 UNITS 300-350 6 UNITS, # 3 mL, 3 Refills, Maintenance, 12/01/21 11:54:00 EDT, [facility] #[id number], Partial fill upon patient requ... Start Date: 12/01/21 Status: Ordered OneTouch Verio Glucose Meter See Instructions, # 1 each, Maintenance, USE TO TEST BLOOD SUGARS THREE TIMES DAILY. DX:E11.9, 03/05/22 16:19:00 EDT, Supply, 150, cm, 03/01/22 7:16:00 EDT, Height, 97, kg, 02/06/22 10:00:00 EDT, DryWeight Start Date: 03/05/22 Status: Ordered pantoprazole 40 mg oral delayed [...] 10/14/21 18:18:00 EST, Route to Pharmacy Electronically, [facility] #[id number],148.4, cm, 10/05/21 10:50:00 EST, Height, 104.5, kg... Start Date: 10/14/21 Stop Date: 04/12/22 Status: Ordered spironolactone 100 mg oral tablet 100 mg, 1, tablet, By Mouth, Daily, # 90 tablet, Refills 1, Tot. Refills 1, Maintenance, 05/24/22 10:31:00 EDT, Route to Pharmacy Electronically, [facility] #[id number], Partial fill upon patient request if the prescription is for a schedule II o... 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 2possibly Type III 33+ 4s/p bilateral salpingo-oophrectomy Results Orders for Microbiology Reports Name Date Anaerobic Culture (ANAEROBIC CULTURE) Sterile Body Fluid Culture W / Gram Smear (Culture Sterile Body Fluid w/ Gram Smear) 06/13/22 Urine Culture 06/13/22 Blood Culture 06/12/22 Microbiology Reports TEST:Anaerobic Culture STATUS:Unauthenticated BODY SITE: SOURCE:[facility] COLLECTED DATE/TIME:06/13/22 1:35 PM Anaerobic Culture SPECIMEN DESCRIPTION : Peritoneal fluid SPECIAL REQUESTS : NONE CULTURE : NO ANAEROBES ISOLATED SO FAR. REPORT STATUS : PRELIMINARY REPORT TEST:Sterile Fluid Culture STATUS:Auth (Verified) BODY SITE: SOURCE:[facility] COLLECTED DATE/TIME:06/13/22 1:35 PM Sterile Fluid Culture SPECIMEN DESCRIPTION : Peritoneal fluid SPECIAL REQUESTS : NONE GRAM STAIN : 2+ RBC'S 2+ WHITE BLOOD CELLS NO ORGANISMS SEEN CULTURE : NO GROWTH 2 DAYS REPORT STATUS : FINAL 06/15/2022 TEST:Urine Culture STATUS:Auth (Verified) BODY SITE: SOURCE:URINE COLLECTED DATE/TIME:06/13/22 6:00 AM Urine Culture SPECIMEN DESCRIPTION : URINE CLEAN CATCH/MIDSTREAM SPECIAL REQUESTS : NONE CULTURE : <10,000 COL/ML REPORT STATUS : FINAL 06/14/2022 TEST:Blood Culture STATUS:Unauthenticated BODY SITE: SOURCE:Blood COLLECTED DATE/TIME:06/12/22 12:43 PM Blood Culture SPECIMEN DESCRIPTION : BLOOD NO SITE SPECIAL REQUESTS : NONE CULTURE : NO GROWTH 3 DAYS REPORT STATUS : PRELIMINARY REPORT Vital Signs Most recent to oldest [Reference Range]: 1 2 3 Weight 76 kg (06/12/22 4:46 AM) Oxygen Saturation [94-100 %] 98 % (06/15/22 11:16 AM) 97 % (06/15/22 8:07 AM) 97 % (06/15/22 4:45 AM) Pulse Rate [55-90 bpm] 78 bpm (06/15/22 11:16 AM) 93 bpm *H* (06/15/22 8:40 AM) 93 bpm *H* (06/15/22 8:07 AM) Blood Pressure [90-138/55-84 mm Hg] 130/59mm Hg (06/15/22 11:16 AM) 101/89mm Hg (06/15/22 8:40 AM) 101/89mm Hg (06/15/22 8:07 AM) Respiratory Rate [16-30 br/min] 16 br/min (06/15/22 11:16 AM) 18 br/min (06/15/22 10:29 AM) 18 br/min (06/15/22 9:44 AM) Temperature [96.8-100.4 DegF] 98.4 DegF (06/15/22 11:16 AM) 99.0 DegF (06/15/22 8:07 AM) 99.3 DegF (06/15/22 4:45 AM) Mode of Delivery (Oxygen) Room air (06/15/22 11:16 AM) Room air (06/15/22 8:07 AM) Room air (06/15/22 4:45 AM) Blood pressure sites Arm, right (06/15/22 11:16 AM) Arm, right (06/15/22 8:07 AM) Arm, right (06/15/22 4:45 AM) Temperature Route Oral (06/15/22 11:16 AM) Oral (06/15/22 8:07 AM) Oral (06/15/22 4:45 AM) Weight Obtained Via Bed scale (06/12/22 4:46 AM) Social History Social History Type Response Smoking Status Former smoker; Tobac co user in household: No; Type: Cigarettes; Tobacco use times per day: up to 2 ppd; Started at age: 16; Stopped at age: 48; entered on: 11/08/14 Sex Patient Care team information Personnel Name: Winsome De La Rosa NP Address: Address: [address] [place] [address]
--- OUTSIDE RECORDS SUMMARY | 2023-03-06 14:48 | XMS_ITS | Continuity of Care Document ---
Author Name Unknown Organization [facility] Address [address] [place] [address]- Care Team Providers Care Harbor Master Name Role Phone Rj HAMILTON, Winsome Weiss Primary Care Physician Encounter [facility] Date(s): 06/17/20 - 07/20/20 [facility] [address] [place] [address]- Attending Physician: Kelton Man DO Admitting Physician: Kelton Man DO Referring Physician: Winsome De La Rosa [...] [07/11/2018] [facility] 2Result Comment: [11/11/2015] given at [facility] [address] [place] [address] [phone] 3Result Comment: [07/11/2018] [facility] 5Admin Note: given at [facility] in [place], [place] 6Location History: bro 7Admin Note: boostrix [...] 06/21/20 16:00:00 EST, Route to Pharmacy Electronically, [facility] #[id number], 149.9, cm, 06/21/20 13:54:00 EST, Height, 103.8, [...] 5 Refills, Maintenance, 04/27/20 9:19:00 EDT, Tablet, [facility] #[id number], 149.9, cm, 04/27/20 9:00:00 EDT, Height, 103.8, kg, 03/07/20 10:17:00 EDT, Dry Weight Start Date: 04/27/20 Stop Date: 10/24/20 Status: Ordered ferrous sulfate 325 mg oral enteric coated tablet 325 mg, 1, tablet, By Mouth, 2 times a day, # 180 tablet, Refills 1, Tot. Refills 1, Maintenance, 12/24/18 14:50:03 EDT, Route to Pharmacy Electronically, [id number], [facility] Start Date: 12/24/18 Stop Date: 06/22/19 Status: Ordered Flovent HFA 220 mcg/inh inhalation aerosol 2 puffs, Inhalation, 2 times a day, # 1 each, 6 Refills, Maintenance, 05/30/20 10:57:00 EDT, Aerosol, [facility] #[id number], 149.9, cm, 05/30/20 10:53:00 EDT, Height, 103.8, kg, 03/07/20 10:17:00 EDT, Dry Weight Start Date: 05/30/20 Stop Date: 12/26/20 Status: Ordered gabapentin 100 mg oral capsule 100 mg, 1, capsule, By Mouth, 2 times a day, BUBBLE PACK PLEASE, # 60 capsule, Refills 3, Tot. Refills 3, Maintenance, 05/30/20 11:10:00 EDT, Route to Pharmacy Electronically, [facility] #[id number], 149.9, cm, 05/30/20 10:53:00 EDT, Height, 103.... Start Date: 05/30/20 Stop Date: 09/27/20 Status: Ordered levothyroxine 0.025 mg oral tablet 1 tablet, By Mouth, Daily, BUBBLE PACK PLEASE, # 30 tablet, 5 Refills, Maintenance, 04/27/20 9:20:00 EDT, Tablet, [email or web address] #[id number], 149.9, cm, 04/27/20 9:00:00 EDT, Height, 103.8, kg, 03/07/20 10:17:00 EDT, Dry Weight Start Date: 04/27/20 Stop Date: 10/24/20 Status: Ordered lisinopril 20 mg oral tablet 20 mg, 1, tablet, By Mouth, Daily, BUBBLE PACK PLEASE, # 30 tablet, Refills 5, Tot. Refills 5, Maintenance, 04/27/20 9:21:00 EDT, Route to Pharmacy Electronically, [facility] #[id number], 149.9,cm, 04/27/20 9:00:00 EDT, Height, 103.8, kg, 03/07/... Start Date: 04/27/20 Stop Date: 10/24/20 Status: Ordered LORazepam 1 mg oral tablet 1 tablet = 1 mg, By Mouth, Daily, PRN as needed for anxiety, # 30 tablet, 0 Refills, Maintenance, 05/30/20 10:55:00 EDT, Tablet, [facility] #[id number], 149.9, cm, 05/30/20 10:53:00 EDT, Height,103.8, kg, 03/07/20 10:17:00 EDT, Dry Weight Start Date: 05/30/20 Stop Date: 06/29/20 Status: Ordered nortriptyline 50 mg oral capsule 50 mg, 1, capsule, By Mouth, Daily, BUBBLE PACK PLEASE, # 30 capsule, Refills 6, Tot. Refills 6, Maintenance, 03/25/20 19:21:00 EDT, Route to Pharmacy Electronically, [facility] #[id number], 149.9, cm, 03/07/20 10:17:00 EDT, Height, 103.8, kg, 07... Start Date: 03/25/20 Stop Date: 10/21/20 Status: Ordered nystatin topical 712899 u/gm ointment 1 application, Topically, 3 times [...] Refills, Maintenance, 10/24/20 9:19:00 EDT, EC Capsule, [facility] #[id number], 149.9, cm, 06/14/20 14:58:00 EST, Height, 101, kg, 06/07/20 10:02:00 EDT, Dry Weight Start Date: 10/24/20 Stop Date: 02/21/21 Status: Ordered Singulair 10 mg oral tablet 10 mg, 1, tablet, By Mouth, Daily in PM, BUBBLE PACK PLEASE, # 30 tablet, Refills 5, Tot. Refills 5, Maintenance, 03/02/20 16:02:00 EDT, Route to Pharmacy Electronically, [facility] #[id number],149.9, cm, 03/02/20 10:16:00 EDT, Height, 94.4, kg,... [...] Numbness and tingling in hands(Confirmed) Active *[facility] [phone] CARE MANAG ER HELEN RENO(Confirmed) Active Rib [...]
--- OUTSIDE RECORDS SUMMARY | 2023-03-06 14:49 | XMS_ITS | Continuity of Care Document ---
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 SPACELIFT, Winsome Weiss Primary Care Physician Encounter [facility] Date(s): 12/26/21 - 01/25/22 [facility] [address] [place] [address]- Attending Physician: Dayana Orlando Admitting Physician: AdmtrDayana [...] 7 12/11/13 Gi sukhi 1Result Comment: [07/11/2018] [facility] 3Admin Note: given at [facility] in [place] 4Result Comment: [07/11/2018] [facility] 5Result Comment: [11/11/2015] given at [facility] [address] [place] [address] [phone] 6[facility] History[facility] 7Admin Note: boostrix vis [...] 01/19/22 19:16:00 EDT, Route to Pharmacy Electronically, [facility] #[id number], Partial fill upon patientrequest if the prescription is for a schedule II op... Start Date: 01/19/22 Status: Ordered escitalopram 20 mg oral tablet 1 tablet = 20 mg, By Mouth, Daily, # 90 tablet, 1 Refills, Maintenance, 11/29/21 7:27:00 EDT, Tablet, [facility] #[id number], 150, cm, 11/03/21 13:46:00 EDT, Height, 100.8, kg, 11/01/21 22:19:00EDT, Dry Weight Start Date: 11/29/21 Stop Date: 05/28/22 Status: Ordered furosemide 20 mg oral tablet 20 mg, 1, tablet, By Mouth, 2 times a day, # 180 tablet, Refills 1, Tot. Refills 1, Maintenance, 12/01/21 16:35:00 EDT, Route to Pharmacy Electronically, [facility] #[id number], Partial fill upon patient request if the prescription is for a sched... Start Date: 12/01/21 Stop Date: 05/30/22 Status: Ordered gabapentin 100 mg oral capsule 200 mg, 2, capsule, By Mouth, 3 times a day, 2 capsules to equal 200 mg three times a day., # 180 capsule, Refills 3, Tot. Refills 3, Maintenance, 12/05/21 20:30:00 EDT, Route to Pharmacy Electronically, [facility] #[id number], Partial fill upon... Start Date: 12/05/21 Status: [...] 04/06/21 12:52:00 EDT, Route to Pharmacy Electronically, [facility] #[id number], Partial fill upon patient request if the prescription is for a schedule... Start Date: 04/06/21 Status: Ordered Lantus Solostar Pen 100 units/mL subcutaneous solution = 15 units, Subcutaneous Infusion, Daily, with evening meal, # 15 mL, 3 Refills, Maintenance, 11/29/21 21:45:00 EDT, [facility] #[id number], Partial fill upon patient request if the prescriptionis for a schedule II opioid drug., 150, cm, ... Start Date: 11/29/21 Status: Ordered levothyroxine 0.025 mg oral tablet 1 tablet, By Mouth, Daily, # 90 tablet, 1 Refills, Maintenance, 11/29/21 7:27:00 EDT, Tablet, [facility] #[id number], 150, cm, 11/03/21 13:46:00 EDT, Height, 100.8, [...] 3 Refills, Maintenance, 04/05/21 13:22:00 EDT, Tablet, [facility] #[id number], Part... Start Date: 04/05/21 Stop Date: 08/03/21 Status: Ordered NovoLOG FlexPen 100 units/mL injectable solution See Instructions, Subcutaneous Infusion 3 times a day before meals. Sliding scale:: 150-200 2 [id number] 4 UNITS 300-350 6 UNITS, # 3 mL, 3 Refills, Maintenance, 12/01/21 11:54:00 EDT, [facility] #[id number], Partial fill upon patient requ... Start Date: [...] 01/19/22 13:52:00 EDT, Route to Pharmacy Electronically, [facility] #[id number], Partial fill upon patient request... Start Date: [...] 10/14/21 18:18:00 EST, Route to Pharmacy Electronically, [facility] #[id number],148.4, cm, 10/05/21 10:50:00 EST, Height, 104.5, kg... Start Date: 10/14/21 Stop Date: 04/12/22 Status: Ordered spironolactone 100 mg oral tablet 100 mg, 1, tablet, By Mouth, Daily, # 90 tablet, Refills 1, Tot. Refills 1, Maintenance, 12/01/21 16:34:00 EDT, Route to Pharmacy Electronically, [facility] #[id number], Partial fill upon patient request if the [...] 11 Refills, Maintenance, 01/06/21 14:47:00 EDT, Powder, [facility] #[id number], Partial fill upon patient request if the [...] Numbness and tingling in hands(Confirmed) Active *[facility] [phone] CARE MANAG ER HELEN ROWDY(Confirmed) Active Hepatitis [...]
--- OUTSIDE RECORDS SUMMARY | 2023-03-06 14:49 | XMS_ITS | Continuity of Care Document ---
Author Name Unknown Organization [facility] Address [address] [place] [address]- Care Team Providers Care Pipe Fitter Gas Pipe Name Role Phone Rj MANAGER GAS, Winsome M Primary Care Physician Encounter [facility] Date(s): 09/26/20 - 09/26/[address] [address]- Discharge Disposition: A-D/C Home Attending Physician: Rossy Mcclure DO Admitting Physician: Rossy Mcclure DO Referring Physician: Rossy Mcclure DO Allergies, Adverse Reactions, [...] [07/11/2018] [facility] 2Result Comment: [11/11/2015] given at [facility] [address] [place] [address] [phone] 3Result Comment: [07/11/2018] [facility]yn 4[facility] History[facility] 5Admin Note: given at [facility] in [place], [place] 6Location History: [facility] 7Admin Note: [facility] vis 12-28-2012 Medications acetaminophen [...] 06/21/20 16:00:00 EST, Route to Pharmacy Electronically, [facility] #[id number], 149.9, cm, 06/21/20 13:54:00 EST, Height, 103.8, [...] 5 Refills, Maintenance, 07/22/20 9:23:00 EST, Tablet, [facility] #[id number], 153, cm, 07/22/20 9:04:00 EST, Height, 106, kg, 07/08/20 13:49:00 EST, Dry Weight Start Date: 07/22/20 Stop Date: 01/18/21 Status: Ordered ferrous sulfate 325 mg oral enteric coated tablet 325 mg, 1, tablet, By Mouth, 2 times a day, # 180 tablet, Refills 1, Tot. Refills 1, Maintenance, 12/24/18 14:50:03 EDT, [id number] Start Date: 12/24/18 Stop Date: 06/22/19 Status: Ordered Flovent HFA 220 mcg/inh inhalation aerosol 2 puffs, Inhalation, 2 times a day, # 1 each, 6 Refills, Maintenance, 05/30/20 10:57:00 EDT, Aerosol, [facility] #[id number], 149.9, cm, 05/30/20 10:53:00 EDT, Height, 103.8, kg, 03/07/20 10:17:00 EDT, Dry Weight Start Date: 05/30/20 Stop Date: 12/26/20 Status: Ordered gabapentin 100 mg oral capsule 200 mg, 2, capsule, By Mouth, 3 times a day, # 180 capsule, Refills 1, Tot. Refills 1, Maintenance,09/14/20 15:22:00 EST, Route to Pharmacy Electronically, [facility] #[id number], Partial fill upon patient request if the prescription is for a sc... Start Date: 09/14/20 Status: Ordered levothyroxine 0.025 mg oral tablet 1 tablet, By Mouth, Daily, BUBBLE PACK PLEASE, # 30 tablet, 5 Refills, Maintenance, 07/22/20 9:24:00 EST, Tablet, [facility] #[id number], 153, cm, 07/22/20 9:04:00 EST, Height, 106, kg, 07/08/2013:49:00 EST, Dry Weight Start Date: 07/22/20 Stop Date: 01/18/21 Status: Ordered lisinopril 20 mg oral tablet 20 mg, 1, tablet, By Mouth, Daily, BUBBLE PACK PLEASE, # 30 tablet, Refills 5, Tot. Refills 5, Maintenance, 04/27/20 9:21:00 EDT, Route to Pharmacy Electronically, [facility] #[id number], 149.9,cm, 04/27/20 9:00:00 EDT, Height, 103.8, kg, ... Start Date: 04/27/20 Stop Date: 10/24/20 Status: Ordered LORazepam 1 mg oral tablet 1 tablet = 1 mg, By Mouth, Daily, PRN as needed for anxiety, # 30 tablet, 0 Refills, Maintenance, 09/16/20 15:53:00 EST, Tablet, [facility] #[id number], 153, cm, 09/14/20 13:47:00 EST, Height, 106, kg, 07/08/20 13:49:00 EST, Dry Weight Start Date: 09/16/20 Stop Date: 10/16/20 Status: Ordered nortriptyline 50 mg oral capsule 50 mg, 1, capsule, By Mouth, Daily, BUBBLE PACK PLEASE, # 30 capsule, Refills 6, Tot. Refills 6, Maintenance, 03/25/20 19:21:00 EDT, Route to Pharmacy Electronically, [facility] #[id number], 149.9, cm, 03/07/20 10:17:00 EDT, Height, 103.8, kg, 07... Start Date: 03/25/20 Stop Date: 10/21/20 Status: Ordered nystatin topical 635447 u/gm ointment 1 application, Topically, 3 times [...] Refills, Maintenance, 10/24/20 9:19:00 EDT, EC Capsule, [facility] #[id number], 149.9, cm, 06/14/20 14:58:00 EST, Height, 101, kg, 06/07/20 10:02:00 EDT, Dry Weight Start Date: 10/24/20 Stop Date: 02/21/21 Status: Ordered oxyCODONE 5 mg oral tablet 5 mg, 1, tablet, By Mouth, Every 4 hours, PRN, # 10 tablet, Refills 0, Tot. Refills 0, Acute 09/28/20 10:07:00 EST, for pain, 09/26/20 10:07:00 EST, Route to Pharmacy Electronically, [facility] #[id number], Partial fill upon patient request if th... Start Date: 09/26/20 Stop Date: 09/28/20 Status: Ordered Singulair 10 mg oral tablet 10 mg, 1, tablet, By Mouth, Daily in PM, BUBBLE PACK PLEASE, # 30 tablet, Refills 5, Tot. Refills 5, Maintenance, 07/22/20 9:24:00 EST, Route to Pharmacy Electronically, [facility] #[id number], 153, cm, 07/22/20 9:04:00 EST, Height, 106, [...] Numbness and tingling in hands(Confirmed) Active *[facility] [phone] CARE MANAG ER HELEN MGCELIAHerberth(Confirmed) Active Rib pain on left side(Confirmed) Active Pain in right shoulder(Confirmed) Active Urge urinary incontinence(Confirmed) Active 1tx with apc today due to bleeding. 2normal PFT's 11/22/14 r/o COPD 3childhood onset 4possibly Type III 53+ 6s/p bilateral salpingo-oophrectomy Procedures Procedure Date Related Diagnosis Body Site Status Lateral internal anal sphincterotomy 09/26/20 Completed Vital Signs Most recent to oldest [Reference Range]: 1 2 3 Height 150 cm (09/26/20 8:33 AM) Oxygen Saturation [94-100 %] 91 % *L* (09/26/20 10:55 AM) 100 % (09/26/20 10:39 AM) 98 % (09/26/20 10:24 AM) Pulse Rate [55-90 bpm] 92 bpm *H* (09/26/20 8:33 AM) Blood Pressure [90-138/55-84 mm Hg] 124/40mm Hg (09/26/20 10:55 AM) 146/66mm Hg *H* (09/26/20 10:39 AM) 153/63mm Hg *H* (09/26/20 10:24 AM) Respiratory Rate [16-30 br/min] 28 br/min (09/26/20 10:55 AM) 22 br/min (09/26/20 10:39 AM) 28 br/min (09/26/20 10:24 AM) Temperature [96.8-100.4 DegF] 98.9 DegF (09/26/20 10:09 AM) 99 DegF (09/26/20 8:33 AM) Mode of Delivery (Oxygen) Room air (09/26/20 10:40 AM) Simple face mask (09/26/20 10:24 AM) Simple face mask (09/26/20 10:09 AM) Blood pressure sites Arm, left (09/26/20 8:33 AM) Temperature Route Temporal (09/26/20 10:09 AM) Temporal (09/26/20 8:33 AM) Dry Weight 106.5 kg (09/26/20 8:33 AM) Social History Social History Type Response Smoking Status Former smoker; Tobac co user in household: No; Type: Cigarettes; Stopped at age: 48; Tobacco use times per day: up to 2 ppd; Started at age: 16; entered on: 11/08/14 Sex
--- OUTSIDE RECORDS SUMMARY | 2023-03-06 14:49 | XMS_ITS | Continuity of Care Document ---
Author Name Unknown Organization [facility] Address [address] [place] [address]- Care Team Providers Care Mortar Maker Name Role Phone Rj BIT GATHERER, Winsome Weiss Primary Care Physician Encounter [facility] Date(s): 12/06/20 - 01/05/21 [facility] [address] [place], [place] [address] Attending Physician: AdmDayana nolan Admitting Physician: AdmtrDayana [...] at [facility] [address] [place] [address] [phone] 3Result Comment: [07/11/2018] [facility] 4Location History: [facility] 5Admin Note: given at [facility] in [place], [place] 6Location History: [facility] 7Admin Note: [facility] 12-28-2012 Medications albuterol [...] 06/21/20 16:00:00 EST, Route to Pharmacy Electronically, [facility] #[id number], 149.9, cm, 06/21/20 13:54:00 EST, Height, 103.8, kg, 06/21/20 13:54:... Start Date: 06/21/20 Stop Date: 06/29/20 Status: Ordered Colace sodium 100 mg oral capsule 100 mg, 1, capsule, By Mouth, 2 times a day, BUBBLE PACK PLEASE, # 180 capsule, Refills 1, Tot. Refills 1, Maintenance, 11/08/20 17:06:00 EDT, Route to Pharmacy Electronically, [facility] #[id number], 152.4, cm, 11/07/20 7:59:00 EDT, Height, 100.... Start Date: 11/08/20 Stop Date: 05/07/21 Status: Ordered escitalopram 20 mg oral tablet 1 tablet = 20 mg, By Mouth, Daily, # 30 tablet, 5 Refills, Maintenance, 07/22/20 9:23:00 EST, Tablet, [facility] #[id number], 153, cm, 07/22/20 9:04:00 EST, Height, 106, kg, 07/08/20 13:49:00 EST, Dry Weight Start Date: 07/22/20 Stop Date: 01/18/21 Status: Ordered ferrous sulfate 325 mg oral enteric coated tablet 325 mg, 1, tablet, By Mouth, 2 times a day, may take with food to minimize abdominal discomfort, # 180 tablet, Refills 1, Tot. Refills 1, Maintenance, 10/04/20 16:08:00 EST, Route to Pharmacy Electronically, [facility] #[id number], 150, cm, 09/26... Start Date: 10/04/20 Stop Date: 04/02/21 Status: Ordered Flovent HFA 220 mcg/inh inhalation aerosol 2 puffs, Inhalation, 2 times a day, # 1 each, 6 Refills, Maintenance, 11/08/20 17:06:00 EDT, Aerosol, [facility] #[id number], 152.4, cm, 11/07/20 7:59:00 EDT, Height, 100.2, kg, 11/07/20 7:59:00EDT, Dry Weight Start Date: 11/08/20 Stop Date: 06/06/21 Status: Ordered gabapentin 100 mg oral capsule 200 mg, 2, capsule, By Mouth, 3 times a day, # 180 capsule, Refills 3, Tot. Refills 3, Maintenance,12/27/20 11:32:00 EDT, Route to Pharmacy Electronically, [facility] #[id number], Partial fill upon patient request if the prescription is for a sc... Start Date: 12/27/20 Status: Ordered Lasix 20 mg oral tablet See Instructions, 1 tablet By Mouth Daily, # 10 tablet, Refills 0, Tot. Refills 0, Maintenance, 11/13/20 22:27:00 EDT, Instructions Replace Required Details, Route to Pharmacy Electronically, [facility] #[id number], Partial fill upon patient requ... Start Date: 11/13/20 Status: Ordered levothyroxine 0.025 mg oral tablet 1 tablet, By Mouth, Daily, BUBBLE PACK PLEASE, # 30 tablet, 5 Refills, Maintenance, 07/22/20 9:24:00 EST, Tablet, [facility] #[id number], 153, cm, 07/22/20 9:04:00 EST, Height, 106, kg, 07/08/2013:49:00 EST, Dry Weight Start Date: 07/22/20 Stop Date: 01/18/21 Status: Ordered lisinopril 20 mg oral tablet 20 mg, 1, tablet, By Mouth, Daily, BUBBLE PACK PLEASE, # 30 tablet, Refills 5, Tot. Refills 5, Maintenance, 12/15/20 9:29:00 EDT, Route to Pharmacy Electronically, [facility] #[id number], 153, cm, 11/29/20 15:11:00 EDT, Height, 102.4, kg, ... Start Date: 12/15/20 Stop Date: 06/13/21 Status: Ordered LORazepam 1 mg oral tablet 1 tablet = 1 mg, By Mouth, Daily, PRN as needed for anxiety, # 30 tablet, 0 Refills, Maintenance, 12/15/20 9:28:00 EDT, Tablet, [facility] #[id number], 153, cm, 11/29/20 15:11:00 EDT, Height, 102.4, [...] 03/25/20 19:21:00 EDT, Route to Pharmacy Electronically, [facility] #[id number], 149.9, cm, 03/07/20 10:17:00 EDT, Height, 103.8, kg, 07... Start Date: 03/25/20 Stop Date: 10/21/20 Status: Ordered nystatin topical 836684 u/gm ointment 1 application, Topically, 3 times [...] 9:19:00 EDT, 10/24/20 9:19:00 EDT, EC Capsule, [facility] #[id number], 149.9, cm, 06/14/20 14:58:00 EST, Height, 101, kg, ... Start Date: 10/24/20 Stop Date: 02/21/21 Status: Ordered omeprazole 20 mg oral enteric coated capsule 1 capsule = 20 mg, By Mouth, 2 times a day, BUBBLE PACK PLEASE, # 60 capsule, 3 Refills, Maintenance, 12/22/20 9:44:00 EDT, EC Capsule, [facility] #[id number], 153, cm, 11/29/20 15:11:00 EDT, Height, 102.4, kg, 11/13/20 18:51:00 EDT, Dry Weight Start Date: 12/22/20 Stop Date: 04/21/21 Status: Ordered ProAir HFA 90 mcg/inh inhalation aerosol 2 puffs, Inhalation, 4 times a day, PRN Wheezing/Shortness of Breath, # 2 each, 3 Refills, Maintenance, 11/08/20 17:08:00 EDT, Aerosol, [facility] #[id number], Partial fill upon patient request if the prescription is for a schedule II opioid drug... Start Date: 11/08/20 Stop Date: 03/08/21 Status: Ordered Singulair 10 mg oral tablet 10 mg, 1, tablet, By Mouth, Daily in PM, BUBBLE PACK PLEASE, # 30 tablet, Refills 5, Tot. Refills 5, Maintenance, 07/22/20 9:24:00 EST, Route to Pharmacy Electronically, [facility] #[id number], 153, cm, 07/22/20 9:04:00 EST, Height, 106, [...] Active Numbness and tingling in hands(Confirmed) Active *[facility] [phone] CARE MANAG ER HELEN RENO(Confirmed) Active Pulmonary [...]
--- OUTSIDE RECORDS SUMMARY | 2023-03-06 14:49 | XMS_ITS | Continuity of Care Document ---
Author Name Unknown Organization [facility] Address [address] [place] [id number]- Care Team Providers Care Underwriting Clerks Supervisor Name Role Phone Rj HAMILTON, Winsome Weiss Primary Care Physician [phone] Encounter [facility] Date(s): 12/30/21 - 04/29/22 [facility] [address] [place] [address]- Attending Physician: Kassi Crow MD Admitting Physician: Kassi Crow MD Referring Physician: Winsome De La Rosa [...] [facility] 3Admin Note: given at [facility] in [place] 4Result Comment: [07/11/2018] [facility] 5Result Comment: [11/11/2015] given at [facility] [address] [place] [address] [phone] 6[facility] History[facility] 7Admin Note: [facility] vis 12-28-2012 Medications Breo Ellipta 200 mcg-25 mcg/inh inhalation powder 1 puffs, Inhalation, Daily, # 1 each, 11 Refills, Maintenance, 12/20/21 15:11:00 EDT, Powder, [facility][id number], Partial fill upon patient request if the [...] 01/19/22 19:16:00 EDT, Route to Pharmacy Electronically, [facility] #[id number], Partial fill upon patientrequest if the prescription is for a schedule II op... Start Date: 01/19/22 Status: Ordered docusate sodium 100 mg oral capsule 100 mg, 1, capsule, By Mouth, Every 12 hours, PRN, # 60 capsule, Refills 0, Tot. Refills 0, Maintenance, Constipation, 04/23/22 16:44:00 EDT, Route to Pharmacy Electronically, [facility] #[id number], Partial fill upon patient request if the presc... Start Date: 04/23/22 Stop Date: 05/23/22 Status: Ordered docusate sodium 100 mg oral capsule TAKE 1 CAPSULE BY MOUTH TWICE DAILY NEEDED FOR CONSTIPATION Start Date: 02/20/22 Status: Ordered escitalopram 20 mg oral tablet 1 tablet = 20 mg, By Mouth, Daily, # 90 tablet, 1 Refills, Maintenance, 11/29/21 7:27:00 EDT, Tablet, [facility] #[id number], 150, cm, 11/03/21 13:46:00 EDT, Height, 100.8, [...] 12/01/21 16:35:00 EDT, Route to Pharmacy Electronically, [facility] #[id number], Partial fill upon patient request if the prescription is for a sched... Start Date: 12/01/21 Stop Date: 05/30/22 Status: Ordered gabapentin 100 mg oral capsule 200 mg, 2, capsule, By Mouth, 3 times a day, 2 capsules to equal 200 mg three times a day., # 180 capsule, Refills 3, Tot. Refills 3, Maintenance, 12/05/21 20:30:00 EDT, Route to Pharmacy Electronically, [facility] #[id number], Partial fill upon... Start Date: 12/05/21 Status: [...] mL, 3 Refills, Maintenance, 11/29/21 21:45:00 EDT, [facility] #[id number], Partial fill upon patient request if the prescriptionis for a schedule II opioid drug., 150, cm, ... Start Date: 11/29/21 Status: Ordered levothyroxine 0.025 mg oral tablet 1 tablet, By Mouth, Daily, # 90 tablet, 1 Refills, Maintenance, 11/29/21 7:27:00 EDT, Tablet, [facility] #[id number], 150, cm, 11/03/21 13:46:00 EDT, Height, 100.8, [...] 0 Refills, Maintenance, 03/01/22 11:00:00 EDT, Tablet, [facility] 3, Partial fill upon [...] 3 Refills, Maintenance, 04/05/21 13:22:00 EDT, Tablet, [facility] #[id number], Part... Start Date: 04/05/21 Stop Date: 08/03/21 Status: Ordered NovoLOG FlexPen 100 units/mL injectable solution See Instructions, Subcutaneous Infusion 3 times a day before meals. Sliding scale:: 150-200 2 [id number] 4 UNITS 300-350 6 UNITS, # 3 mL, 3 Refills, Maintenance, 12/01/21 11:54:00 EDT, [facility] #[id number], Partial fill upon patient requ... Start Date: [...] 01/19/22 13:52:00 EDT, Route to Pharmacy Electronically, [facility] #[id number], Partial fill upon patient request... Start Date: [...] 10/14/21 18:18:00 EST, Route to Pharmacy Electronically, [facility] #[id number],148.4, cm, 10/05/21 10:50:00 EST, Height, 104.5, kg... Start Date: 10/14/21 Stop Date: 04/12/22 Status: Ordered trospium 60 mg oral capsule, extended release 1 capsule = 60 mg, By Mouth, Daily in AM, # 90 capsule, 0 Refills, Maintenance, 04/04/22 8:37:00 EDT, [facility] #[id number], Partial fill upon patient request if the [...] 11 Refills, Maintenance, 03/15/22 10:32:00 EDT, Powder, [facility] #[id number], Partial fill upon patient request if the [...] tingling in hands(Confirmed) Active *[facility] [phone] CARE MANAG ER HELEN ROWDY(Confirmed) Active Hepatitis [...] Winsome De La Rosa NP Address: [address] [place] [address]
--- OUTSIDE RECORDS SUMMARY | 2023-03-06 14:49 | XMS_ITS | Continuity of Care Document ---
Author Name Unknown Organization [facility] Address [address] [place] [address]- Care Team Providers Care Coordinate Measuring Machine Operator Name Role Phone Rj DRAPERY HEMMER AUTOMATIC, Winsome Weiss Primary Care Physician [phone] Encounter [facility] Date(s): 02/06/22 - 03/08/22 [facility] [address], [place] [address] Allergies, Adverse Reactions, Alerts Substance [...] 2[facility] 3Admin Note: given at [facility] in [place] 4Result Comment: [07/11/2018] [facility] 5Result Comment: [11/11/2015] given at [facility] [address] [place] [address] [phone] 6[facility] History[facility] 7Admin Note: boostrix vis [...] 01/19/22 19:16:00 EDT, Route to Pharmacy Electronically, [facility] #[id number], Partial fill upon patientrequest if the prescription is for a schedule II op... Start Date: 01/19/22 Status: Ordered docusate sodium 100 mg oral capsule TAKE 1 CAPSULE BY MOUTH TWICE DAILY NEEDED FOR CONSTIPATION Start Date: 02/20/22 Status: Ordered escitalopram 20 mg oral tablet 1 tablet = 20 mg, By Mouth, Daily, # 90 tablet, 1 Refills, Maintenance, 11/29/21 7:27:00 EDT, Tablet, [facility] #[id number], 150, cm, 11/03/21 13:46:00 EDT, Height, 100.8, [...] 12/01/21 16:35:00 EDT, Route to Pharmacy Electronically, [facility] #[id number], Partial fill upon patient request if the prescription is for a sched... Start Date: 12/01/21 Stop Date: 05/30/22 Status: Ordered gabapentin 100 mg oral capsule 200 mg, 2, capsule, By Mouth, 3 times a day, 2 capsules to equal 200 mg three times a day., # 180 capsule, Refills 3, Tot. Refills 3, Maintenance, 12/05/21 20:30:00 EDT, Route to Pharmacy Electronically, [facility] #[id number], Partial fill upon... Start Date: 12/05/21 Status: [...] mL, 3 Refills, Maintenance, 11/29/21 21:45:00 EDT, [facility] #[id number], Partial fill upon patient request if the prescriptionis for a schedule II opioid drug., 150, cm, ... Start Date: 11/29/21 Status: Ordered levothyroxine 0.025 mg oral tablet 1 tablet, By Mouth, Daily, # 90 tablet, 1 Refills, Maintenance, 11/29/21 7:27:00 EDT, Tablet, [facility] #[id number], 150, cm, 11/03/21 13:46:00 EDT, Height, 100.8, [...] 0 Refills, Maintenance, 03/01/22 11:00:00 EDT, Tablet, [facility] 3, Partial fill upon patient [...] 3 Refills, Maintenance, 04/05/21 13:22:00 EDT, Tablet, [facility] #[id number], Part... Start Date: 04/05/21 Stop Date: 08/03/21 Status: Ordered NovoLOG FlexPen 100 units/mL injectable solution See Instructions, Subcutaneous Infusion 3 times a day before meals. Sliding scale:: 150-200 2 [id number] 4 UNITS 300-350 6 UNITS, # 3 mL, 3 Refills, Maintenance, 12/01/21 11:54:00 EDT, [facility] #[id number], Partial fill upon patient requ... Start Date: [...] 01/19/22 13:52:00 EDT, Route to Pharmacy Electronically, [facility] #[id number], Partial fill upon patient request... Start Date: [...] 10/14/21 18:18:00 EST, Route to Pharmacy Electronically, [facility] #[id number],148.4, cm, 10/05/21 10:50:00 EST, Height, 104.5, kg... Start Date: 10/14/21 Stop Date: 04/12/22 Status: Ordered trospium 60 mg oral capsule, extended release 1 capsule = 60 mg, By Mouth, Daily in AM, # 30 capsule, 0 Refills, Maintenance, 03/05/22 11:28:00 EDT, [facility] #[id number], Partial fill upon patient request if the [...] 11 Refills, Maintenance, 01/06/21 14:47:00 EDT, Powder, [facility] #[id number], Partial fill upon patient request if the [...] tingling in hands(Confirmed) Active *[facility] [phone] CARE MANAG ER HELEN RENO(Confirmed) Active Hepatitis [...]
--- OUTSIDE RECORDS SUMMARY | 2023-03-06 14:49 | XMS_ITS | Continuity of Care Document ---
Author Name Unknown Organization [facility] Address [address] [place] [address]- Care Team Providers Care Editorial Cartoonist Name Role Phone Rj AIRCREWMAN, Winsome M Primary Care Physician Encounter [facility] Date(s): 10/15/20 - 11/14/20 [facility] [address] [place] [id number] Allergies, Adverse Reactions, Alerts [...] [07/11/2018] [facility] 2Result Comment: [11/11/2015] given at [facility] [address] [place], [place] [id number] 3Result Comment: [07/11/2018] [facility] 5Admin Note: given at [facility] in [place], [place] 6Location History[facility] 7Admin Note: boostrix [...] 06/21/20 16:00:00 EST, Route to Pharmacy Electronically, [facility] #[id number], 149.9, cm, 06/21/20 13:54:00 EST, Height, 103.8, kg, 06/21/20 13:54:... Start Date: 06/21/20 Stop Date: 06/29/20 Status: Ordered Colace sodium 100 mg oral capsule 100 mg, 1, capsule, By Mouth, 2 times a day, BUBBLE PACK PLEASE, # 180 capsule, Refills 1, Tot. Refills 1, Maintenance, 11/08/20 17:06:00 EDT, Route to Pharmacy Electronically, [facility] #[id number], 152.4, cm, 11/07/20 7:59:00 EDT, Height, 100.... Start Date: 11/08/20 Stop Date: 05/07/21 Status: Ordered escitalopram 20 mg oral tablet 1 tablet = 20 mg, By Mouth, Daily, # 30 tablet, 5 Refills, Maintenance, 07/22/20 9:23:00 EST, Tablet, [facility] #[id number], 153, cm, 07/22/20 9:04:00 EST, Height, 106, kg, 07/08/20 13:49:00 EST, Dry Weight Start Date: 07/22/20 Stop Date: 01/18/21 Status: Ordered ferrous sulfate 325 mg oral enteric coated tablet 325 mg, 1, tablet, By Mouth, 2 times a day, may take with food to minimize abdominal discomfort, # 180 tablet, Refills 1, Tot. Refills 1, Maintenance, 10/04/20 16:08:00 EST, Route to Pharmacy Electronically, [facility] #[id number], 150, cm, 09/26... Start Date: 10/04/20 Stop Date: 04/02/21 Status: Ordered Flovent HFA 220 mcg/inh inhalation aerosol 2 puffs, Inhalation, 2 times a day, # 1 each, 6 Refills, Maintenance, 11/08/20 17:06:00 EDT, Aerosol, [facility] #[id number], 152.4, cm, 11/07/20 7:59:00 EDT, Height, 100.2, kg, 11/07/20 7:59:00EDT, Dry Weight Start Date: 11/08/20 Stop Date: 06/06/21 Status: Ordered gabapentin 100 mg oral capsule 200 mg, 2, capsule, By Mouth, 3 times a day, # 180 capsule, Refills 1, Tot. Refills 1, Maintenance,09/14/20 15:22:00 EST, Route to Pharmacy Electronically, [facility] #[id number], Partial fill upon patient request if the prescription is for a sc... Start Date: 09/14/20 Status: Ordered Lasix 20 mg oral tablet See Instructions, 1 tablet By Mouth Daily, # 10 tablet, Refills 0, Tot. Refills 0, Maintenance, 11/13/20 22:27:00 EDT, Instructions Replace Required Details, Route to Pharmacy Electronically, [facility] #[id number], Partial fill upon patient requ... Start Date: 11/13/20 Status: Ordered levothyroxine 0.025 mg oral tablet 1 tablet, By Mouth, Daily, BUBBLE PACK PLEASE, # 30 tablet, 5 Refills, Maintenance, 07/22/20 9:24:00 EST, Tablet, [facility] #[id number], 153, cm, 07/22/20 9:04:00 EST, Height, 106, kg, 07/08/2013:49:00 EST, Dry Weight Start Date: 07/22/20 Stop Date: 01/18/21 Status: Ordered lisinopril 20 mg oral tablet 20 mg, 1, tablet, By Mouth, Daily, BUBBLE PACK PLEASE, # 30 tablet, Refills 5, Tot. Refills 5, Maintenance, 04/27/20 9:21:00 EDT, Route to Pharmacy Electronically, [facility] #[id number], 149.9,cm, 04/27/20 9:00:00 EDT, Height, 103.8, kg, 03/07/... Start Date: 04/27/20 Stop Date: 10/24/20 Status: Ordered LORazepam 1 mg oral tablet 1 tablet = 1 mg, By Mouth, Daily, PRN as needed for anxiety, # 30 tablet, 0 Refills, Maintenance, 09/16/20 15:53:00 EST, Tablet, [facility] #[id number], 153, cm, 09/14/20 13:47:00 EST, Height, 106, [...] 03/25/20 19:21:00 EDT, Route to Pharmacy Electronically, [facility] #[id number], 149.9, cm, 03/07/20 10:17:00 EDT, Height, 103.8, kg, 07... Start Date: 03/25/20 Stop Date: 10/21/20 Status: Ordered nystatin topical 464100 u/gm ointment 1 application, Topically, 3 times [...] Refills, Maintenance, 10/24/20 9:19:00 EDT, EC Capsule, [facility] #[id number], 149.9, cm, 06/14/20 14:58:00 EST, Height, 101, kg, 06/07/20 10:02:00 EDT, Dry Weight Start Date: 10/24/20 Stop Date: 02/21/21 Status: Ordered ProAir HFA 90 mcg/inh inhalation aerosol 2 puffs, Inhalation, 4 times a day, PRN Wheezing/Shortness of Breath, # 2 each, 3 Refills, Maintenance, 11/08/20 17:08:00 EDT, Aerosol, [facility] #[id number], Partial fill upon patient request if the prescription is for a schedule II opioid drug... Start Date: 11/08/20 Stop Date: 03/08/21 Status: Ordered Singulair 10 mg oral tablet 10 mg, 1, tablet, By Mouth, Daily in PM, BUBBLE PACK PLEASE, # 30 tablet, Refills 5, Tot. Refills 5, Maintenance, 07/22/20 9:24:00 EST, Route to Pharmacy Electronically, [facility] #[id number], 153, cm, 07/22/20 9:04:00 EST, Height, 106, [...] Active Numbness and tingling in hands(Confirmed) Active *[facility] [phone] CARE MANAG ER HELEN RENO(Confirmed) Active Rib [...]
--- OUTSIDE RECORDS SUMMARY | 2023-03-06 14:49 | XMS_ITS | Continuity of Care Document ---
Author Name Unknown Organization [facility] Jyoti Mejia Surger y Address [address], [address] [place] [address]- Care Team Providers Care Frame Table Operator Name Role Phone Rj OCCUPATIONAL HEALTH AND SAFETY MANAGER, Winsome M Primary Care Physician Encounter [facility] Date(s): 05/25/20 - 06/01/20 [facility] [address], [address] [place] [address]- [facility] Attending Physician: Rossy Mcclure DO Allergies, Adverse [...] [07/11/2018] [facility] 2Result Comment: [11/11/2015] given at [facility] [address] [place] [address] [phone] 3Result Comment: [07/11/2018] [facility] 5Admin Note: given at [facility] in [place], [place] 6Location History[facility] 7Admin Note: boostrix [...] 03/15/20 14:44:00 EDT, Route to Pharmacy Electronically, [facility] #[id number], 149.9, cm, 0... Start Date: 03/15/20 Stop Date: 09/11/20 Status: Ordered Colace sodium 100 mg oral capsule 100 mg, 1, capsule, By Mouth, 2 times a day, BUBBLE PACK PLEASE, # 180 capsule, Refills 1, Tot. Refills 1, Maintenance, 04/18/20 14:37:00 EDT, Route to Pharmacy Electronically, [facility] #[id number], 149.9, cm, 03/07/20 10:17:00 EDT, Height, 103... [...] 5 Refills, Maintenance, 04/27/20 9:19:00 EDT, Tablet, [facility] #[id number], 149.9, cm, 04/27/20 9:00:00 EDT, Height, 103.8, kg, 03/07/20 10:17:00 EDT, Dry Weight Start Date: 04/27/20 Stop Date: 10/24/20 Status: Ordered FeroSul 325 mg oral tablet 1 tablet = 325 mg, By Mouth, 2 times a day, BUBBLE PACK PLEASE, # 60 tablet, 5 Refills, Soft Stop, 04/18/20 14:38:00 EDT, [facility] #[id number], 149.9, cm, 03/07/20 10:17:00 EDT, Height, 103.8,kg, 03/07/20 10:17:00 EDT, Dry Weight Start Date: 04/18/20 Stop Date: 10/15/20 Status: Ordered ferrous sulfate 325 mg oral enteric coated tablet 325 mg, 1, tablet, By Mouth, 2 times a day, # 180 tablet, Refills 1, Tot. Refills 1, Maintenance, 12/24/18 14:50:03 EDT, [email or web address] Start Date: 12/24/18 Stop Date: 06/22/19 Status: Ordered Flovent HFA 220 mcg/inh inhalation aerosol 2 puffs, Inhalation, 2 times a day, # 1 each, 6 Refills, Maintenance, 05/30/20 10:57:00 EDT, Aerosol, [facility] #[id number], 149.9, cm, 05/30/20 10:53:00 EDT, Height, 103.8, kg, 03/07/20 10:17:00 EDT, Dry Weight Start Date: 05/30/20 Stop Date: 12/26/20 Status: Ordered gabapentin 100 mg oral capsule 100 mg, 1, capsule, By Mouth, 2 times a day, BUBBLE PACK PLEASE, # 60 capsule, Refills 3, Tot. Refills 3, Maintenance, 05/30/20 11:10:00 EDT, Route to Pharmacy Electronically, [facility] #[id number], 149.9, cm, 05/30/20 10:53:00 EDT, Height, 103.... Start Date: 05/30/20 Stop Date: 09/27/20 Status: Ordered levothyroxine 0.025 mg oral tablet 1 tablet, By Mouth, Daily, BUBBLE PACK PLEASE, # 30 tablet, 5 Refills, Maintenance, 04/27/20 9:20:00 EDT, Tablet, [facility] #[id number], 149.9, cm, 04/27/20 9:00:00 EDT, Height, 103.8, kg, 03/07/20 10:17:00 EDT, Dry Weight Start Date: 04/27/20 Stop Date: 10/24/20 Status: Ordered lisinopril 20 mg oral tablet 20 mg, 1, tablet, By Mouth, Daily, BUBBLE PACK PLEASE, # 30 tablet, Refills 5, Tot. Refills 5, Maintenance, 04/27/20 9:21:00 EDT, Route to Pharmacy Electronically, [facility] #[id number], 149.9,cm, 04/27/20 9:00:00 EDT, Height, 103.8, kg, ... Start Date: 04/27/20 Stop Date: 10/24/20 Status: Ordered LORazepam 1 mg oral tablet 1 tablet = 1 mg, By Mouth, Daily, PRN as needed for anxiety, # 30 tablet, 0 Refills, Maintenance, 05/30/20 10:55:00 EDT, Tablet, [facility] #[id number], 149.9, cm, 05/30/20 10:53:00 EDT, Height,103.8, kg, 03/07/20 10:17:00 EDT, Dry Weight Start Date: 05/30/20 Stop Date: 06/29/20 Status: Ordered nortriptyline 50 mg oral capsule 50 mg, 1, capsule, By Mouth, Daily, BUBBLE PACK PLEASE, # 30 capsule, Refills 6, Tot. Refills 6, Maintenance, 03/25/20 19:21:00 EDT, Route to Pharmacy Electronically, [facility] #[id number], 149.9, cm, 03/07/20 10:17:00 EDT, Height, 103.8, kg, 07... Start Date: 03/25/20 Stop Date: 10/21/20 Status: Ordered nystatin topical 577816 u/gm ointment 1 application, Topically, 3 times [...] Refills, Maintenance, 04/27/20 9:19:00 EDT, EC Capsule, [facility] #[id number], 149.9, cm, 04/27/20 9:00:00 EDT, Height, 103.8, kg, 03/07/20 10:17:00 EDT, Dry Weight Start Date: 04/27/20 Stop Date: 10/24/20 Status: Ordered Singulair 10 mg oral tablet 10 mg, 1, tablet, By Mouth, Daily in PM, BUBBLE PACK PLEASE, # 30 tablet, Refills 5, Tot. Refills 5, Maintenance, 03/02/20 16:02:00 EDT, Route to Pharmacy Electronically, [facility] #[id number],149.9, cm, 03/02/20 10:16:00 EDT, Height, 94.4, kg,... [...] and tingling in hands(Confirmed) Active *[facility] [phone] CARE MANAG ER HELEN RENO(Confirmed) Active Rib pain on left side(Confirmed) Active Pain in right shoulder(Confirmed) Active Urge urinary incontinence(Confirmed) Active 1tx with apc today due to bleeding. 2normal PFT's 11/22/14 r/o COPD 3childhood onset 4possibly Type III 53+ 6s/p bilateral salpingo-oophrectomy Vital Signs Most recent to oldest [Reference Range]: 1 Height 149.9 cm (05/25/20 9:45 AM) Weight 103.6 kg (05/25/20 9:45 AM) Oxygen Saturation [94-100 %] 98 % (05/25/20 9:45 AM) Pulse Rate [55-90 bpm] 80 bpm (05/25/20 9:45 AM) Body Mass Index [18.5-24.99] 46.11 *>HHI* (05/25/20 9:45 AM) Social History Social History Type Response Smoking Status Former smoker; Tobac co user in household: No; Type: Cigarettes; Stopped at age: 48; Tobacco use times per day: up to 2 ppd; Started at age: 16; entered on: 11/08/14 Sex
--- OUTSIDE RECORDS SUMMARY | 2023-03-06 14:49 | XMS_ITS | Continuity of Care Document ---
Author Name Unknown Organization [facility] al Address [address] [place] [address]- Care Team Providers Care Nub Card Tender Name Role Phone Rj SPRING SALVAGE WORKER, Winsome Weiss Primary Care Physician Encounter [facility] Date(s): 06/11/22 - 06/12/[address] [address]- Discharge Disposition: Transferred to short-term general hospit Attending Physician: Panchito Womack MD Admitting Physician: Panchito Womack MD Referring Physician: Not on Staff, Referring [...] 2[facility] 3Admin Note: given at [facility] in [place], [place] 4Result Comment: [07/11/2018] [facility] 5Result Comment: [11/11/2015] given at [facility] [address] [place] [address] [phone] 6Location History[facility] 7Admin Note: boostrix vis 12-28-2012 Medications Breo Ellipta 200 mcg-25 mcg/inh inhalation powder 1 puffs, Inhalation, Daily, # 1 each, 11 Refills, Maintenance, 12/20/21 15:11:00 EDT, Powder, [email or web address] #[email or web address], Partial fill upon patient request if the [...] 01/19/22 19:16:00 EDT, Route to Pharmacy Electronically, [facility] #[id number], Partial fill upon patientrequest if the prescription is for a schedule II op... Start Date: 01/19/22 Status: Ordered docusate sodium 100 mg oral capsule 100 mg, 1, capsule, By Mouth, Every 12 hours, PRN, # 60 capsule, Refills 0, Tot. Refills 0, Maintenance, Constipation, 05/07/22 19:59:00 EDT, Route to Pharmacy Electronically, [facility] #[id number], Partial fill upon patient request if the presc... Start Date: 05/07/22 Stop Date: 06/06/22 Status: Ordered docusate sodium 100 mg oral capsule TAKE 1 CAPSULE BY MOUTH TWICE DAILY NEEDED FOR CONSTIPATION Start Date: 02/20/22 Status: Ordered escitalopram 20 mg oral tablet 1 tablet = 20 mg, By Mouth, Daily, # 90 tablet, 0 Refills, Maintenance, 05/07/22 20:00:00 EDT, Tablet, [facility] #[id number], 150, cm, 05/02/22 15:04:00 EDT, Height, 98, kg, 03/07/22 19:54:00 EDT, Dry Weight Start Date: 05/07/22 Stop Date: 08/05/22 Status: Ordered ferrous sulfate 325 mg oral enteric coated tablet 325 mg, 1, tablet, By Mouth, 2 times a day, # 180 tablet, Refills 0, Tot. Refills 0, Maintenance, 05/03/22 16:52:00 EDT, Route to Pharmacy Electronically, [facility] #[id number], Partial fill upon patient request [...] 05/07/22 19:59:00 EDT, Route to Pharmacy Electronically, [facility] #[id number], Partial fill upon patient request if the prescription is for a sched... Start Date: 05/07/22 Stop Date: 08/05/22 Status: Ordered gabapentin 100 mg oral capsule 200 mg, 2, capsule, By Mouth, 3 times a day, 2 capsules to equal 200 mg three times a day., # 180 capsule, Refills 0, Tot. Refills 0, Maintenance, 06/05/22 14:23:00 EDT, Route to Pharmacy Electronically, [facility] #[id number], Partial fill upon... Start Date: 06/05/22 Status: [...] mL, 3 Refills, Maintenance, 11/29/21 21:45:00 EDT, [facility] #[id number], Partial fill upon patient request if the prescriptionis for a schedule II opioid drug., 150, cm, ... Start Date: 11/29/21 Status: Ordered levothyroxine 0.025 mg oral tablet 1 tablet, By Mouth, Daily, # 90 tablet, 1 Refills, Maintenance, 05/07/22 19:58:00 EDT, Tablet, [facility] #[id number], 150, cm, 05/02/22 15:04:00 EDT, Height, 98, kg, 03/07/22 19:54:00 EDT, Dry Weight Start Date: 05/07/22 Stop Date: 11/03/22 Status: Ordered LORazepam 0.5 mg oral tablet 1 tablet = 0.5 mg, By Mouth, Daily at bedtime, PRN Anxiety, USE SPARINGLY, # 30 tablet, 0 Refills, Maintenance, 05/11/22 7:10:00 EDT, Tablet, [facility] #[id number], Partial fill upon patient request if the [...] 0 Refills, Maintenance, 05/11/22 7:07:00 EDT, Tablet, [facility] #[id number], Partial fill upon patient request if the [...] 3 Refills, Maintenance, 04/05/21 13:22:00 EDT, Tablet, [email or web address] #[id number], Part... Start Date: 04/05/21 Stop Date: 08/03/21 Status: Ordered NovoLOG FlexPen 100 units/mL injectable solution See Instructions, Subcutaneous Infusion 3 times a day before meals. Sliding scale:: 150-200 2 [id number] 4 UNITS 300-350 6 UNITS, # 3 mL, 3 Refills, Maintenance, 12/01/21 11:54:00 EDT, [facility] #[id number], Partial fill upon patient requ... Start Date: [...] 01/19/22 13:52:00 EDT, Route to Pharmacy Electronically, [facility] #[id number], Partial fill upon patient request... Start Date: [...] 10/14/21 18:18:00 EST, Route to Pharmacy Electronically, [facility] #72976,148.4, cm, 10/05/21 10:50:00 EST, Height, 104.5, kg... Start Date: 10/14/21 Stop Date: 04/12/22 Status: Ordered spironolactone 100 mg oral tablet 100 mg, 1, tablet, By Mouth, Daily, # 90 tablet, Refills 1, Tot. Refills 1, Maintenance, 05/24/22 10:31:00 EDT, Route to Pharmacy Electronically, [facility] #57310, Partial fill upon patient request if the prescription is for a schedule II o... Start Date: 05/24/22 Stop Date: 11/20/22 Status: Ordered trospium 60 mg oral capsule, extended release 1 capsule = 60 mg, By Mouth, Daily in AM, # 90 capsule, 0 Refills, Maintenance, 05/11/22 7:11:00 EDT, [facility] #[id number], Partial fill upon patient request if the [...] 11 Refills, Maintenance, 03/15/22 10:32:00 EDT, Powder, [facility] #[id number], Partial fill upon patient request [...] and tingling in hands Confirmed Active *[facility] [phone] BODY ART TECHNICIAN HELEN RENO Confirmed Active Hepatitis C virus [...] oldest [Reference Range]: 1 Height 150 cm (06/11/22 10:14 PM) Weight 98 kg (06/11/22 10:14 PM) Oxygen Saturation [94-100 %] 92 % *L* (06/11/22 10:14 PM) Pulse Rate [55-90 bpm] 59 bpm (06/11/22 10:14 PM) Blood Pressure [90-138/55-84 mm Hg] 116/ 59mm Hg (06/11/22 10:14 PM) Respiratory Rate [16-30 br/min] 23 br/mi n (06/11/22 10:14 PM) Temperature [96.8-100.4 DegF] 97.7 DegF (06/11/22 10:14 PM) Mode of Delivery (Oxygen) Room air (06/11/22 10:14 PM) Blood pressure sites Arm, left (06/11/22 10:14 PM) Temperature Route Oral (06/11/22 10:14 PM) Dry Weight 98 kg (06/11/22 10:14 PM) Social History Social History Type Response Smoking Status Former smoker; Tobac co user in household: No; Type: Cigarettes; Stopped at age: 48; Tobacco use times per day: up to 2 ppd; Started at age: 16; entered on: 11/08/14 Sex Patient Care team information Personnel Name: Winsome De La Rosa NP Address: Address: [address] [place] [id number]
--- OUTSIDE RECORDS SUMMARY | 2023-03-06 14:49 | XMS_ITS | Continuity of Care Document ---
Author Name Unknown Organization [facility] Address [address] [place] [address]- Care Team Providers Care Furnace Mechanic Helper Name Role Phone Rj ROLLING MACHINE OPERATOR AUTOMATIC, Winsome M Primary Care Physician Encounter [facility] Date(s): 08/09/20 - 09/08/20 [facility] [address], [place] [address] Attending Physician: Dayana Orlando Admitting Physician: [...] 7 12/11/13 Gi sukhi 1Result Comment: [07/11/2018] [facility] 2Result Comment: [11/11/2015] given at [facility] [address] [place] [address] [phone] 3Result Comment: [07/11/2018] [facility] 5Admin Note: given at [facility] in [place], [place] [facility] 7Admin Note: boost[facility] vis 12-28-2012 Medications albuterol [...] 06/21/20 16:00:00 EST, Route to Pharmacy Electronically, [facility] #[id number], 149.9, cm, 06/21/20 13:54:00 EST, Height, 103.8, [...] 5 Refills, Maintenance, 07/22/20 9:23:00 EST, Tablet, [facility] #[id number], 153, cm, 07/22/20 9:04:00 EST, Height, 106, kg, 07/08/20 13:49:00 EST, Dry Weight Start Date: 07/22/20 Stop Date: 01/18/21 Status: Ordered ferrous sulfate 325 mg oral enteric coated tablet 325 mg, 1, tablet, By Mouth, 2 times a day, # 180 tablet, Refills 1, Tot. Refills 1, Maintenance, 12/24/18 14:50:03 EDT, Route to Pharmacy Electronically, [id number], [email or web address] Start Date: 12/24/18 Stop Date: 06/22/19 Status: Ordered Flovent HFA 220 mcg/inh inhalation aerosol 2 puffs, Inhalation, 2 times a day, # 1 each, 6 Refills, Maintenance, 05/30/20 10:57:00 EDT, Aerosol, [facility] #44615, 149.9, cm, 05/30/20 10:53:00 EDT, Height, 103.8, kg, 03/07/20 10:17:00 EDT, Dry Weight Start Date: 05/30/20 Stop Date: 12/26/20 Status: Ordered gabapentin 100 mg oral capsule 100 mg, 1, capsule, By Mouth, 2 times a day, BUBBLE PACK PLEASE, # 60 capsule, Refills 3, Tot. Refills 3, Maintenance, 07/22/20 9:24:00 EST, Route to Pharmacy Electronically, [facility] #[id number], 153, cm, 07/22/20 9:04:00 EST, Height, 106, kg,... Start Date: 07/22/20 Stop Date: 11/19/20 Status: Ordered levothyroxine 0.025 mg oral tablet 1 tablet, By Mouth, Daily, BUBBLE PACK PLEASE, # 30 tablet, 5 Refills, Maintenance, 07/22/20 9:24:00 EST, Tablet, [facility] #[id number], 153, cm, 07/22/20 9:04:00 EST, Height, 106, kg, 07/08/2013:49:00 EST, Dry Weight Start Date: 07/22/20 Stop Date: 01/18/21 Status: Ordered lisinopril 20 mg oral tablet 20 mg, 1, tablet, By Mouth, Daily, BUBBLE PACK PLEASE, # 30 tablet, Refills 5, Tot. Refills 5, Maintenance, 04/27/20 9:21:00 EDT, Route to Pharmacy Electronically, [facility] #17682, 149.9,cm, 04/27/20 9:00:00 EDT, Height, 103.8, kg, 03/07/... Start Date: 04/27/20 Stop Date: 10/24/20 Status: Ordered LORazepam 1 mg oral tablet 1 tablet = 1 mg, By Mouth, Daily, PRN as needed for anxiety, # 30 tablet, 0 Refills, Maintenance, 07/22/20 9:23:00 EST, Tablet, [facility] #00962, 153, cm, 07/22/20 9:04:00 EST, Height, 106, kg, 07/08/20 13:49:00 EST, Dry Weight Start Date: 07/22/20 Stop Date: 08/21/20 Status: Ordered nortriptyline 50 mg oral capsule 50 mg, 1, capsule, By Mouth, Daily, BUBBLE PACK PLEASE, # 30 capsule, Refills 6, Tot. Refills 6, Maintenance, 03/25/20 19:21:00 EDT, Route to Pharmacy Electronically, [facility] #34740, 149.9, cm, 03/07/20 10:17:00 EDT, Height, 103.8, kg, 07... Start Date: 03/25/20 Stop Date: 10/21/20 Status: Ordered nystatin topical [id number] u/gm ointment 1 application, Topically, 3 times [...] Refills, Maintenance, 10/24/20 9:19:00 EDT, EC Capsule, [facility] #79400, 149.9, cm, 06/14/20 14:58:00 EST, Height, 101, kg, 06/07/20 10:02:00 EDT, Dry Weight Start Date: 10/24/20 Stop Date: 02/21/21 Status: Ordered Singulair 10 mg oral tablet 10 mg, 1, tablet, By Mouth, Daily in PM, BUBBLE PACK PLEASE, # 30 tablet, Refills 5, Tot. Refills 5, Maintenance, 07/22/20 9:24:00 EST, Route to Pharmacy Electronically, [facility] #61005, 153, cm, 07/22/20 9:04:00 EST, Height, 106, kg, 2... Start Date: 07/22/20 Stop Date: 6/9/21 Status: Ordered Xopenex HFA 45 mcg/inh inhalation [...] Numbness and tingling in hands(Confirmed) Active *[facility] [phone] CARE MANAG ER HELEN RENO(Confirmed) Active Rib [...]
--- OUTSIDE RECORDS SUMMARY | 2023-03-06 14:49 | XMS_ITS | Continuity of Care Document ---
Author Name Unknown [facility] Address [address] [place] [address]- Care Team Providers Care Walnut Dehydrator Operator Name Role Phone Rj INFORMATICS MANAGER, Winsome Weiss Primary Care Physician Encounter [facility] Date(s): 11/01/21 - 11/03/[address] [address]- Discharge Disposition: A-Transfer SNF Attending Physician: Amy Puga MD Admitting Physician: Candice Green MD Referring Physician: Jerrica Morejon MD Allergies, Adverse Reactions, Alerts Substance Reaction [...] 2[facility] History[facility] 3Admin Note: given at [facility] in [place] 4Result Comment: [07/11/2018] [facility] 5Result Comment: [11/11/2015] given at [facility] [address] [place] [address] [phone] 6Location History: [facility] 7Admin Note: boostrix vis 12-28-2012 Medications albuterol 0.083% inhalation solution 3 mL = 2.5 mg, Inhalation, Every 6 hours, PRN Wheezing/Shortness of Breath, # 60 each, 6 Refills, Maintenance, 10/29/14 10:00:25, Solution Start Date: 10/29/14 Status: Ordered escitalopram 20 mg oral tablet 1 tablet = 20 mg, By Mouth, Daily, # 90 tablet, 1 Refills, Maintenance, 07/12/21 7:37:00 EST, Tablet, [facility] #[id number], 148.4, cm, 06/01/21 8:57:00 EDT, Height, 97.3, [...] oral capsule 200 mg, Capsule, By Mouth, 11/03/21 15:00:00 EDT Start Date: 11/03/21 Stop Date: 11/03/21 Status: Completed gabapentin 100 mg oral capsule 200 mg, 2, capsule, By Mouth, 3 times a day, # 180 capsule, Refills 3, Tot. Refills 3, Maintenance,12/27/20 11:32:00 EDT, Route to Pharmacy Electronically, [facility] #[id number], Partial fill upon patient request if the prescription is for a sc... Start Date: 12/27/20 Status: Ordered isosorbide mononitrate 30 mg oral tablet, extended release 30 mg, 1, tablet, By Mouth, Daily in AM, # 30 tablet, Refills 3, Tot. Refills 3, Maintenance, 04/06/21 12:52:00 EDT, Route to Pharmacy Electronically, [facility] #[id number], Partial fill upon patient request if the prescription is for a schedule... Start Date: 04/06/21 Status: Ordered levothyroxine 0.025 mg oral tablet 1 tablet, By Mouth, Daily, BUBBLE PACK PLEASE, # 90 tablet, 1 Refills, Maintenance, 07/12/21 7:38:00 EST, Tablet, [facility] #[id number], 148.4, cm, 06/01/21 8:57:00 EDT, Height, 97.3, [...] mg oral tablet, extended release 25 mg, XL Tablet, By Mouth, 11/03/21 9:00:00 EDT Start Date: 11/03/21 Stop Date: 11/03/21 Status: Completed metoprolol 25 mg oral tablet, extended release 25 mg, 1, tablet, By Mouth, Daily, # 90 tablet, Refills 3, Tot. Refills 3, Maintenance, 10/03/21 16:04:00 EST, Route to Pharmacy Electronically, [facility] #85413, Partial fill upon patientrequest if the prescription [...] 3 Refills, Maintenance, 04/05/21 13:22:00 EDT, Tablet, [facility] #54123, Part... Start Date: 04/05/21 Stop Date: 08/03/21 [...] 10/14/21 18:18:00 EST, Route to Pharmacy Electronically, [facility] #[id number],148.4, cm, 10/05/21 10:50:00 EST, Height, 104.5, kg... Start Date: 10/14/21 Stop Date: 04/12/22 Status: Ordered spironolactone 25 mg oral tablet 100 mg, 4, tablet, By Mouth, Daily, Refills 0, Maintenance, 11/03/21 16:26:00 EDT, Partial fill upon patient request if the prescription is for a schedule II opioid drug. Start Date: 11/03/21 Status: Ordered traMADol 50 mg oral tablet 50 mg, Tablet, By Mouth, 11/03/21 15:00:00 EDT, Stop date 11/03/21 15:00:00 EDT Start Date: 11/03/21 Stop Date: 11/03/21 Status: Completed traMADol 50 mg oral tablet 1 tablet = 50 mg, By Mouth, Every 8 hours, # 30 tablet, 0 Refills, Maintenance, 11/03/21 16:26:00 EDT, Tablet Start Date: 11/03/21 Status: Ordered umeclidinium 62.5 mcg/inh inhalation powder 1 inhalation = 62.5 mcg, Inhalation, Every 24 hours, doses should be taken at least 24 hours apart,# 30 each, 11 Refills, Maintenance, 01/06/21 14:47:00 EDT, Powder, [facility] #47146, Partial fill upon patient request if the [...] in hands(Confirmed) Active *[facility] [phone] CARE MANAG ER HELEN RENO(Confirmed) Active Hepatitis C virus infection resolved after antiviral drug therapy(Confirmed) Active Portal hypertension with eso phageal varices(Confirmed) Active DM2 (diabetes mellitus, type 2)(Confirmed) Active Urge urinary incontinence(Confirmed) Active 1tx with apc today due to bleeding. 2possibly Type III 33+ 4s/p bilateral salpingo-oophrectomy Results Orders for Microbiology Reports Name Date Sterile Body Fluid Culture W/ Gram Smear 11/02/21 Anaerobic Culture (ANAEROBIC CULTURE) Microbiology Reports TEST:Anaerobic Culture STATUS:Unauthenticated BODY SITE: SOURCE:[facility] COLLECTED DATE/TIME:11/02/21 11:45 AM Anaerobic Culture SPECIMEN DESCRIPTION : ASCITIC FLUID SPECIAL REQUESTS : NONE CULTURE : NO ANAEROBES ISOLATED SO FAR. REPORT STATUS : PRELIMINARY REPORT TEST:Sterile Fluid Culture STATUS:Unauthenticated BODY SITE: SOURCE:[facility] COLLECTED DATE/TIME:11/02/21 11:45 AM Sterile Fluid Culture SPECIMEN DESCRIPTION : ASCITIC FLUID SPECIAL REQUESTS : NONE GRAM STAIN : 3+ POLYMORPHONUCLEAR LEUKOCYTES NO ORGANISMS SEEN REPORT STATUS : PRELIMINARY REPORT Radiology Reports * Exam Date Time Procedure Performing Provider Status 11/01/21 7:59 PM Chest 2 Views Frontal and Lat Tracee Johnson (Verified) Notes: (Chest 2 Views Frontal and Lat) Reason For Exam: Chest Pain;Other: RESULT: Chest 2 Views Frontal and Lat Chest 2 Views Frontal and Lat Hx of Present Illness: Increased abd distention and pain. Pt admits to diarrhea and chest pain. Pt seen recetnly for same comploaints; Reason: Other:; Chest Pain; Clinical Question(s): CHF COMPARISON: 10/18/2021 FINDINGS: LINES AND TUBES: None. LUNGS AND PLEURA: Clear lungs. Normal pulmonary vascularity. No pleural effusion. No pneumothorax. HEART, MEDIASTINUM AND MARIS: Heart is normal in size. Normal upper mediastinal and hilar contour. BONES AND SOFT TISSUES: No acute abnormality. IMPRESSION: No acute abnormality. WSN: [id number] Ordering Physician: Jerrica Morejon Dictated By: Geraldo Roman MD Dictated Date/Time: 11/01/21 8:05 pm Reviewed By: Geraldo Roman MD Signed By: Geraldo Roman MD Signed Date/Time: 11/01/21 8:05 pm Transcribed By: RONNIE Transcribed Date/Time: 11/01/21 8:04 pm Vital Signs Most recent to oldest [Reference Range]: 1 2 3 Height 150 cm (11/03/21 1:46 PM) 150 cm (11/03/21 5:03 AM) 150 cm (11/02/21 2:51 PM) Weight 100.8 kg (11/01/21 10:18 PM) 104.5 kg (11/01/21 8:42 PM) 104.5 kg (11/01/21 6:34 PM) Oxygen Saturation [94-100 %] 93 % *L* (11/03/21 1:46 PM) 90 % *L* (11/03/21 5:03 AM) 95 % (11/02/21 8:00 PM) Pulse Rate [55-90 bpm] 85 bpm (11/03/21 1:46 PM) 69 bpm (11/03/21 8:36 AM) 83 bpm (11/03/21 5:03 AM) Body Mass Index [18.5-24.99] 44.8 *>HHI* (11/01/21 10:18 PM) 46.44 *>HHI* (11/01/21 8:42 PM) Blood Pressure [90-138/55-84 mm Hg] 115/61mm Hg (11/03/21 1:46 PM) 133/57mm Hg (11/03/21 8:36 AM) 118/64mm Hg (11/03/21 5:03 AM) Respiratory Rate [16-30 br/min] 20 br/min (11/03/21 3:20 PM) 22 br/min (11/03/21 2:44 PM) 16 br/min (11/03/21 1:46 PM) Temperature [96.8-100.4 DegF] 98.3 DegF (11/03/21 1:46 PM) 98.3 DegF (11/03/21 5:03 AM) 98.8 DegF (11/02/21 8:00 PM) Liters per Minute 0 L/min (11/01/21 8:42 PM) Mode of Delivery (Oxygen) Room air (11/03/21 1:46 PM) Room air (11/03/21 5:03 AM) Room air (11/02/21 8:00 PM) Blood pressure sites Arm, left (11/03/21 1:46 PM) Arm, left (11/03/21 5:03 AM) Arm, left (11/02/21 8:00 PM) Temperature Route Oral (11/03/21 1:46 PM) Oral (11/03/21 5:03 AM) Oral (11/02/21 8:00 PM) Dry Weight 100.8 kg (11/01/21 10:18 PM) 104.5 kg (11/01/21 8:42 PM) 104.5 kg (11/01/21 6:34 PM) Weight Obtained Via Standing scale (11/01/21 10:18 PM) Patient/family stated (11/01/21 6:34 PM) Dry Weight Obtained Via Standing scale (11/01/21 10:18 PM) Patient/family stated (11/01/21 6:34 PM) Social History Social History Type Response Smoking Status Former smoker; Tobac co user in household: No; Type: Cigarettes; Stopped at age: 48; Tobacco use times per day: up to 2 ppd; Started at age: 16; entered on: 11/08/14 Sex
--- OUTSIDE RECORDS SUMMARY | 2023-03-06 14:49 | XMS_ITS | Continuity of Care Document ---
Author Name Unknown Organization [facility] Address [address] [place] [phone]- Care Team Providers Care Receiving Dock Checker Name Role Phone Rj FOLDING MACHINE SETTER, Winsome Weiss Primary Care Physician Encounter [facility] Date(s): 11/30/21 - 12/30/21 [facility] [address] [place] [phone] [place] Allergies, Adverse Reactions, Alerts Substance Reaction [...] 2Location History: [facility] 3Admin Note: given at [facility] in [place] 4Result Comment: [07/11/2018] [facility] 5Result Comment: [11/11/2015] given at [facility] [address] [place] [address] [phone] 6Location History: [facility] 7Admin Note: boostrix vis [...] 1 Refills, Maintenance, 11/29/21 7:27:00 EDT, Tablet, [facility] #72041, 150, cm, 11/03/21 13:46:00 EDT, Height, 100.8, kg, 11/01/21 22:19:00EDT, Dry Weight Start Date: 11/29/21 Stop Date: 05/28/22 Status: Ordered furosemide 20 mg oral tablet 20 mg, 1, tablet, By Mouth, 2 times a day, # 180 tablet, Refills 1, Tot. Refills 1, Maintenance, 12/01/21 16:35:00 EDT, Route to Pharmacy Electronically, [facility] #[id number], Partial fill upon patient request if the [...] 12/05/21 20:30:00 EDT, Route to Pharmacy Electronically, [facility] #[id number], Partial fill upon... Start Date: 12/05/21 Status: [...] Maintenance,12/27/20 11:32:00 EDT, Route to Pharmacy Electronically, [facility] #[id number], Partial fill upon patient request if the [...] 04/06/21 12:52:00 EDT, Route to Pharmacy Electronically, [facility] #06510, Partial fill upon patient request if the prescription is for a schedule... Start Date: 04/06/21 Status: Ordered Lantus Solostar Pen 100 units/mL subcutaneous solution INJECT 15 UNITS SUBCUTANEOUSLY EVERY DAY WITH EVENING MEAL Start Date: 12/22/21 Status: Ordered Lantus Solostar Pen 100 units/mL subcutaneous solution = 15 units, Subcutaneous Infusion, Daily, with evening meal, # 15 mL, 3 Refills, Maintenance, 11/29/21 21:45:00 EDT, [facility] #[id number], Partial fill upon patient request if the prescriptionis for a schedule II opioid drug., 150, cm, ... Start Date: 11/29/21 Status: Ordered levothyroxine 0.025 mg oral tablet 1 tablet, By Mouth, Daily, # 90 tablet, 1 Refills, Maintenance, 11/29/21 7:27:00 EDT, Tablet, [facility] #25227, 150, cm, 11/03/21 13:46:00 EDT, Height, 100.8, [...] 0 Refills, Maintenance, 11/29/21 7:28:00 EDT, Tablet, [facility] #06613, 150, cm, 11/03/21 13:46:00 EDT, Height, 100.8, [...] 12/01/21 16:36:00 EDT, Route to Pharmacy Electronically, [facility] #[id number], Partial fill upon patientrequest if the prescription is for a schedule II op... Start Date: 12/01/21 Stop Date: 03/01/22 Status: Ordered nitroglycerin 0.4 mg sublingual tablet 1 tablet = 0.4 mg, Sublingual, Every 5 minutes, PRN as needed for chest pain, not to exceed 3 doses/15 min--if pain persists, seek medical attention, # 30 tablet, 3 Refills, Maintenance, 04/05/21 13:22:00 EDT, Tablet, [facility] #[id number], Part... Start Date: 04/05/21 Stop Date: 08/03/21 Status: Ordered NovoLOG FlexPen 100 units/mL injectable solution See Instructions, Subcutaneous Infusion 3 times a day before meals. Sliding scale:: 150-200 2 [id number] 4 UNITS 300-350 6 UNITS, # 3 mL, 3 Refills, Maintenance, 12/01/21 11:54:00 EDT, [facility] #23653, Partial fill upon patient requ... Start Date: [...] 10/14/21 18:18:00 EST, Route to Pharmacy Electronically, [facility] #74479,148.4, cm, 10/05/21 10:50:00 EST, Height, 104.5, kg... Start Date: 10/14/21 Stop Date: 9/1/22 Status: Ordered spironolactone 100 mg oral tablet 100 mg, 1, tablet, By Mouth, Daily, # 90 tablet, Refills 1, Tot. Refills 1, Maintenance, 12/01/21 16:34:00 EDT, Route to Pharmacy Electronically, [facility] #91567, Partial fill upon patient request if the [...] 11 Refills, Maintenance, 01/06/21 14:47:00 EDT, Powder, [facility] #78624, Partial fill upon patient request if the [...] in hands(Confirmed) Active *[facility] [phone] CARE MANAG ER HELEN RENO(Confirmed) Active Hepatitis [...]
--- OUTSIDE RECORDS SUMMARY | 2023-03-06 14:49 | XMS_ITS | Continuity of Care Document ---
Author Name Unknown Organization [facility] Address [address] [place] [address]- Care Team Providers Care Service Coordinator Name Role Phone Rj HAMILTON, Winsome Weiss Primary Care Physician [phone] Encounter [facility] [id number] Date(s): 12/17/19 - 12/24/19 [facility] [address] [place] [address]- Encounter Diagnosis Urinary tract infection(Discharge Diagnosis) - 12/17/19 Anxiety and depression(Discharge Diagnosis) - 12/17/19 Attending Physician: Nazia Knapp NP Allergies, Adverse [...] [07/11/2018] [facility] 2Result Comment: [11/11/2015] given at [facility] [address] [place] [address] [phone] 3Result Comment: [07/11/2018] [facility] 5Admin Note: given at [facility] in [place], [place] 6Location History: bro 7Admin Note: boostrix [...] 10/21/19 14:37:00 EDT, Route to Pharmacy Electronically, [facility] #[id number], 149.9, cm, 08/10/19 9:46:00 EST, Height, 94.4... [...] 6 Refills, Maintenance, 10/21/19 14:37:00 EDT, Tablet, [facility] #09877, 149.9, cm, 08/10/19 9:46:00 EST, Height, 94.4, kg, 05/21/19 10:46:00 EDT, Dry Weight Start Date: 10/21/19 Status: Ordered FeroSul 325 mg oral tablet 1 tablet = 325 mg, By Mouth, 2 times a day, BUBBLE PACK PLEASE, # 60 tablet, 5 Refills, Soft Stop, 10/21/19 14:38:00 EDT, [facility] #33265, 149.9, cm, 08/10/19 9:46:00 EST, Height, 94.4, kg, 05/21/19 10:46:00 EDT, Dry Weight Start Date: 10/21/19 Stop Date: 04/18/20 Status: Ordered ferrous sulfate 325 mg oral enteric coated tablet 325 mg, 1, tablet, By Mouth, 2 times a day, # 180 tablet, Refills 1, Tot. Refills 1, Maintenance, 12/24/18 14:50:03 EDT, [id number] Start Date: 12/24/18 Stop Date: 06/22/19 [...] 12/04/19 14:46:00 EDT, Route to Pharmacy Electronically, [facility] #68965, 149.9, cm, 08/10/19 9:46:00 EST, Height, 94.4,... Start Date: 12/04/19 Stop Date: 01/03/20 Status: Ordered levothyroxine 0.025 mg oral tablet 1 tablet, By Mouth, Daily, BUBBLE PACK PLEASE, # 30 tablet, 5 Refills, Maintenance, 10/21/19 14:40:00 EDT, Tablet, [facility] #12188, 149.9, cm, 08/10/19 9:46:00 EST, Height, 94.4, kg, 05/21/19 10:46:00 EDT, Dry Weight Start Date: 10/21/19 Stop Date: 04/18/20 Status: Ordered lisinopril 20 mg oral tablet 20 mg, 1, tablet, By Mouth, Daily, BUBBLE PACK PLEASE, # 30 tablet, Refills 5, Tot. Refills 5, Maintenance, 10/21/19 14:40:00 EDT, Route to Pharmacy Electronically, [facility] #91599, 149.9, cm, 08/10/19 9:46:00 EST, Height, 94.4, kg, ... Start Date: 10/21/19 Stop Date: 04/18/20 Status: Ordered LORazepam 1 mg oral tablet 1 tablet = 1 mg, By Mouth, Daily, PRN as needed for anxiety, # 30 tablet, 0 Refills, Maintenance, 12/17/19 15:01:00 EDT, Tablet, [facility] #39467, 149.9, cm, 12/17/19 13:34:00 EDT, Height,94.4, kg, 05/21/19 10:46:00 EDT, Dry Weight Start Date: 12/17/19 Stop Date: 01/16/20 Status: Ordered nortriptyline 50 mg oral capsule 50 mg, 1, capsule, By Mouth, Daily, BUBBLE PACK PLEASE, # 30 capsule, Refills 0, Tot. Refills 0, Maintenance, 12/04/19 14:46:00 EDT, Route to Pharmacy Electronically, [facility] #47679, 149.9, cm, 08/10/19 9:46:00 EST, Height, 94.4, kg, 05/12... Start Date: 12/04/19 Stop Date: 01/03/20 Status: Ordered nystatin topical 939997 u/gm ointment 1 application, Topically, 3 times [...] Refills, Maintenance, 10/21/19 14:42:00 EDT, EC Capsule, [facility] #85332, 149.9, cm, 08/10/19 9:46:00 EST, Height, 94.4, kg, 05/21/19 10:46:00 EDT, Dry Weight Start Date: 10/21/19 Stop Date: 04/18/20 Status: Ordered Singulair 10 mg oral tablet 10 mg, 1, tablet, By Mouth, Daily in PM, BUBBLE PACK PLEASE, # 30 tablet, Refills 5, Tot. Refills 5, Maintenance, 10/21/19 14:41:00 EDT, Route to Pharmacy Electronically, [facility] #45348,149.9, cm, 08/10/19 9:46:00 EST, Height, 94.4, kg,... [...] Active *[facility] [phone] CARE MANAG ER HELEN RENO(Confirmed) Active Rib pain on left side(Confirmed) Active Pain in right shoulder(Confirmed) Active Urge urinary incontinence(Confirmed) Active 1tx with apc today due to bleeding. 2normal PFT's 11/22/14 r/o COPD 3childhood onset 4possibly Type III 53+ 6s/p bilateral salpingo-oophrectomy Diagnosis Diagnosis Type Effective Dates Health Status Clinical Service Informant Urinary tract infection Discharge Diagnosis 12/17/19 Anxiety and depression Discharge Diagnosis 12/17/19 Vital Signs Most recent to oldest [Reference Range]: 1 Height 149.9 cm (12/17/19 1:34 PM) Weight 99.6 kg (12/17/19 1:34 PM) Oxygen Saturation [94-100 %] 98 % (12/17/19 1:34 PM) Pulse Rate [55-90 bpm] 100 bpm *H* (12/17/19 1:34 PM) Body Mass Index [18.5-24.99] 44.33 *>HHI* (12/17/19 1:34 PM) Blood Pressure [90-138/55-84 mm Hg] 122/ 70mm Hg (12/17/19 1:34 PM) Respiratory Rate [16-30 br/min] 17 br/mi n (12/17/19 1:34 PM) Temperature [96.8-100.4 DegF] 99.0 DegF (12/17/19 1:34 PM) Liters per Minute 0 L/min (12/17/19 1:34 PM) Mode of Delivery (Oxygen) Room air (12/17/19 1:34 PM) Blood pressure sites Arm, left (12/17/19 1:34 PM) Temperature Route Temporal (12/17/19 1:34 PM) Weight Obtained Via Standing scale (12/17/19 1:34 PM) Social History Social History Type Response Smoking Status Former smoker; Tobac co user in household: No; Type: Cigarettes; Tobacco use times per day: up to 2 ppd; Started at age: 16; Stopped at age: 48; entered on: 11/08/14 Sex
--- OUTSIDE RECORDS SUMMARY | 2023-03-06 14:49 | XMS_ITS | Continuity of Care Document ---
Author Name Unknown Organization [facility] Address [address] [place] [address]- Care Team Providers Care Field Interviewer Name Role Phone Rj HAMILTON, Winsome Weiss Primary Care Physician [phone] Encounter [facility] Date(s): 06/20/20 - 07/21/20 [facility] [address] [place] [address]- Attending Physician: Deena HAMILTON, Taryn Saucedo Referring Physician: Winsome De La Rosa NP [...] [07/11/2018] [facility] 2Result Comment: [11/11/2015] given at [facility] [address] [place] [address] [phone] 3Result Comment: [07/11/2018] [facility] 5Admin Note: given at [facility] in [place], [place] 6[facility] 7Admin Note: boostrix [...] 06/21/20 16:00:00 EST, Route to Pharmacy Electronically, [facility] #[id number], 149.9, cm, 06/21/20 13:54:00 EST, Height, 103.8, [...] 5 Refills, Maintenance, 04/27/20 9:19:00 EDT, Tablet, [facility] #[id number], 149.9, cm, 04/27/20 9:00:00 EDT, Height, 103.8, kg, 03/07/20 10:17:00 EDT, Dry Weight Start Date: 04/27/20 Stop Date: 10/24/20 Status: Ordered ferrous sulfate 325 mg oral enteric coated tablet 325 mg, 1, tablet, By Mouth, 2 times a day, # 180 tablet, Refills 1, Tot. Refills 1, Maintenance, 12/24/18 14:50:03 EDT, Route to Pharmacy Electronically, [id number], [facility] Start Date: 12/24/18 Stop Date: 06/22/19 Status: Ordered Flovent HFA 220 mcg/inh inhalation aerosol 2 puffs, Inhalation, 2 times a day, # 1 each, 6 Refills, Maintenance, 05/30/20 10:57:00 EDT, Aerosol, [facility] #43421, 149.9, cm, 05/30/20 10:53:00 EDT, Height, 103.8, kg, 03/07/20 10:17:00 EDT, Dry Weight Start Date: 05/30/20 Stop Date: 12/26/20 Status: Ordered gabapentin 100 mg oral capsule 100 mg, 1, capsule, By Mouth, 2 times a day, BUBBLE PACK PLEASE, # 60 capsule, Refills 3, Tot. Refills 3, Maintenance, 05/30/20 11:10:00 EDT, Route to Pharmacy Electronically, [facility] #[id number], 149.9, cm, 05/30/20 10:53:00 EDT, Height, 103.... Start Date: 05/30/20 Stop Date: 09/27/20 Status: Ordered levothyroxine 0.025 mg oral tablet 1 tablet, By Mouth, Daily, BUBBLE PACK PLEASE, # 30 tablet, 5 Refills, Maintenance, 04/27/20 9:20:00 EDT, Tablet, [facility] #[id number], 149.9, cm, 04/27/20 9:00:00 EDT, Height, 103.8, kg, 03/07/20 10:17:00 EDT, Dry Weight Start Date: 04/27/20 Stop Date: 10/24/20 Status: Ordered lisinopril 20 mg oral tablet 20 mg, 1, tablet, By Mouth, Daily, BUBBLE PACK PLEASE, # 30 tablet, Refills 5, Tot. Refills 5, Maintenance, 04/27/20 9:21:00 EDT, Route to Pharmacy Electronically, [facility] #59086, 149.9,cm, 04/27/20 9:00:00 EDT, Height, 103.8, kg, 03/07/... Start Date: 04/27/20 Stop Date: 10/24/20 Status: Ordered LORazepam 1 mg oral tablet 1 tablet = 1 mg, By Mouth, Daily, PRN as needed for anxiety, # 30 tablet, 0 Refills, Maintenance, 05/30/20 10:55:00 EDT, Tablet, [facility] #87720, 149.9, cm, 05/30/20 10:53:00 EDT, Height,103.8, kg, 03/07/20 10:17:00 EDT, Dry Weight Start Date: 05/30/20 Stop Date: 06/29/20 Status: Ordered nortriptyline 50 mg oral capsule 50 mg, 1, capsule, By Mouth, Daily, BUBBLE PACK PLEASE, # 30 capsule, Refills 6, Tot. Refills 6, Maintenance, 03/25/20 19:21:00 EDT, Route to Pharmacy Electronically, [facility] #82246, 149.9, cm, 03/07/20 10:17:00 EDT, Height, 103.8, kg, 07... Start Date: 03/25/20 Stop Date: 10/21/20 Status: Ordered nystatin topical 106519 u/gm ointment 1 application, Topically, 3 times [...] Refills, Maintenance, 10/24/20 9:19:00 EDT, EC Capsule, [facility] #58918, 149.9, cm, 06/14/20 14:58:00 EST, Height, 101, kg, 06/07/20 10:02:00 EDT, Dry Weight Start Date: 10/24/20 Stop Date: 02/21/21 Status: Ordered Singulair 10 mg oral tablet 10 mg, 1, tablet, By Mouth, Daily in PM, BUBBLE PACK PLEASE, # 30 tablet, Refills 5, Tot. Refills 5, Maintenance, 03/02/20 16:02:00 EDT, Route to Pharmacy Electronically, [facility] #31990,149.9, cm, 03/02/20 10:16:00 EDT, Height, 94.4, kg,... [...] Numbness and tingling in hands(Confirmed) Active *[facility] [phone] CARE MANAG ER HELEN RENO(Confirmed) Active Rib [...]
--- OUTSIDE RECORDS SUMMARY | 2023-03-06 14:49 | XMS_ITS | Continuity of Care Document ---
Author Name Unknown Organization [facility] Address [address] [place] [address]- Care Team Providers Care Rag Baler Name Role Phone Rj BOW MACHINE OPERATOR, Winsome Weiss Primary Care Physician Encounter [facility] Date(s): 10/31/21 - 11/30/21 [facility] [address] [place] [address]- [place] Allergies, Adverse Reactions, Alerts Substance Reaction [...] 2Location History: [facility] 3Admin Note: given at [facility] in [place], [place] 4Result Comment: [07/11/2018] [facility] 5Result Comment: [11/11/2015] given at [facility] [address] [place] [address] [phone] 6Location History: [facility] 7Admin Note: [facility] 12-28-2012 Medications albuterol 0.083% inhalation solution 3 mL = 2.5 mg, Inhalation, Every 6 hours, PRN Wheezing/Shortness of Breath, # 60 each, 6 Refills, Maintenance, 10/29/14 10:00:25, Solution Start Date: 10/29/14 Status: Ordered escitalopram 20 mg oral tablet 1 tablet = 20 mg, By Mouth, Daily, # 90 tablet, 1 Refills, Maintenance, 11/29/21 7:27:00 EDT, Tablet, [facility] #85836, 150, cm, 11/03/21 13:46:00 EDT, Height, 100.8, [...] Maintenance,12/27/20 11:32:00 EDT, Route to Pharmacy Electronically, [facility] #[id number], Partial fill upon patient request if the prescription is for a sc... Start Date: 12/27/20 Status: Ordered Humalog Kwik Pen 100 units/mL subcutaneous injection See Instructions, 11/30/21@1155AM HUMALOG SLIDING SCALE 150-200 2 UNITS 250-300 4 UNITS 300-350 6 UNITS As needed with meals, # 3 mL, 6 Refills, Maintenance, 11/30/21 15:45:00 EDT, [facility] #[id number], Partial fill upon patient request if... Start Date: 11/30/21 Status: Ordered isosorbide mononitrate 30 mg oral tablet, extended release 30 mg, 1, tablet, By Mouth, Daily in AM, # 30 tablet, Refills 3, Tot. Refills 3, Maintenance, 04/06/21 12:52:00 EDT, Route to Pharmacy Electronically, [facility] #[id number], Partial fill upon patient request if the prescription is for a schedule... Start Date: 04/06/21 Status: Ordered Lantus Solostar Pen 100 units/mL subcutaneous solution = 15 units, Subcutaneous Infusion, Daily, with evening meal, # 15 mL, 3 Refills, Maintenance, 11/29/21 21:45:00 EDT, [facility] #83155, Partial fill upon patient request if the prescriptionis for a schedule II opioid drug., 150, cm, ... Start Date: 11/29/21 Status: Ordered levothyroxine 0.025 mg oral tablet 1 tablet, By Mouth, Daily, # 90 tablet, 1 Refills, Maintenance, 11/29/21 7:27:00 EDT, Tablet, [facility] #39063, 150, cm, 11/03/21 13:46:00 EDT, Height, 100.8, kg, 11/01/21 22:19:00 EDT, Dry Weight Start Date: 11/29/21 Stop Date: 05/28/22 Status: Ordered LORazepam 0.5 mg oral tablet 1 tablet = 0.5 mg, By Mouth, Daily, PRN Anxiety, # 24 tablet, 0 Refills, Maintenance, 11/29/21 7:28:00 EDT, Tablet, [facility] #59471, 150, cm, 11/03/21 13:46:00 EDT, Height, 100.8, [...] 10/03/21 16:04:00 EST, Route to Pharmacy Electronically, [facility] #06258, Partial fill upon patientrequest if the prescription [...] 3 Refills, Maintenance, 04/05/21 13:22:00 EDT, Tablet, [facility] #18603, Part... Start Date: 04/05/21 Stop Date: 08/03/21 [...] 10/14/21 18:18:00 EST, Route to Pharmacy Electronically, [facility] #02738,148.4, cm, 10/05/21 10:50:00 EST, Height, 104.5, kg... [...] 11 Refills, Maintenance, 01/06/21 14:47:00 EDT, Powder, [facility] #52861, Partial fill upon patient request if the [...] in hands(Confirmed) Active *[facility] [phone] CARE MANAG ER HELEN ROWDY(Confirmed) Active Hepatitis [...]
[2023-03-06 14:50] LABS: Glucose, Whole Blood 112 mg/dL (60-115)
--- OUTSIDE RECORDS SUMMARY | 2023-03-06 14:50 | XMS_ITS | Continuity of Care Document ---
Author Name Unknown Organization [facility] Address [address] [place] [address]- Care Team Providers Care Call Center Supervisor Name Role Phone Winsome De La Rosa NP Primary Care Physician [phone] [id number] Date(s): 07/18/19 - 11/15/19 [facility] [address] [place] [address]- Attending Physician: Winsome De La Rosa NP [...] [07/11/2018] [facility] 2Result Comment: [11/11/2015] given at [facility] [address] [place] [address] 3Result Comment: [07/11/2018] [facility] 5Admin Note: given at [facility] in [place], [place] 6Location History[facility] 7Admin Note: boostrix [...] 10/21/19 14:37:00 EDT, Route to Pharmacy Electronically, [facility] #[id number], 149.9, cm, 08/10/19 9:46:00 EST, Height, 94.4... [...] 6 Refills, Maintenance, 10/21/19 14:37:00 EDT, Tablet, [facility] #35712, 149.9, cm, 08/10/19 9:46:00 EST, Height, 94.4, kg, 05/21/19 10:46:00 EDT, Dry Weight Start Date: 10/21/19 Status: Ordered FeroSul 325 mg oral tablet 1 tablet = 325 mg, By Mouth, 2 times a day, BUBBLE PACK PLEASE, # 60 tablet, 5 Refills, Soft Stop, 10/21/19 14:38:00 EDT, [facility] #77088, 149.9, cm, 08/10/19 9:46:00 EST, Height, 94.4, kg, 05/21/19 10:46:00 EDT, Dry Weight Start Date: 10/21/19 Stop Date: 04/18/20 Status: Ordered ferrous sulfate 325 mg oral enteric coated tablet 325 mg, 1, tablet, By Mouth, 2 times a day, # 180 tablet, Refills 1, Tot. Refills 1, Maintenance, 12/24/18 14:50:03 EDT, [id number] Start Date: 12/24/18 Stop Date: 06/22/19 [...] 10/21/19 14:39:00 EDT, Route to Pharmacy Electronically, [facility] #67182, 149.9, cm, 08/10/19 9:46:00 EST, Height, 94.4,... Start Date: 10/21/19 Stop Date: 11/20/19 Status: Ordered levothyroxine 0.025 mg oral tablet 1 tablet, By Mouth, Daily, BUBBLE PACK PLEASE, # 30 tablet, 5 Refills, Maintenance, 10/21/19 14:40:00 EDT, Tablet, [facility] #63504, 149.9, cm, 08/10/19 9:46:00 EST, Height, 94.4, kg, 05/21/19 10:46:00 EDT, Dry Weight Start Date: 10/21/19 Stop Date: 04/18/20 Status: Ordered lisinopril 20 mg oral tablet 20 mg, 1, tablet, By Mouth, Daily, BUBBLE PACK PLEASE, # 30 tablet, Refills 5, Tot. Refills 5, Maintenance, 10/21/19 14:40:00 EDT, Route to Pharmacy Electronically, [facility] #55323, 149.9, cm, 08/10/19 9:46:00 EST, Height, 94.4, kg, ... Start Date: 10/21/19 Stop Date: 04/18/20 Status: Ordered LORazepam 1 mg oral tablet 1 tablet = 1 mg, By Mouth, Daily, PRN as needed for anxiety, # 30 tablet, 0 Refills, Maintenance, 10/14/19 12:12:00 EST, Tablet, [facility] #46129, 149.9, cm, 08/10/19 9:46:00 EST, Height, 94.4, kg, 05/21/19 10:46:00 EDT, Dry Weight Start Date: 10/14/19 Stop Date: 11/13/19 Status: Ordered nortriptyline 50 mg oral capsule 50 mg, 1, capsule, By Mouth, Daily, BUBBLE PACK PLEASE, # 30 capsule, Refills 0, Tot. Refills 0, Maintenance, 10/21/19 14:42:00 EDT, Route to Pharmacy Electronically, [facility] #[id number], 149.9, cm, 08/10/19 9:46:00 EST, Height, 94.4, kg, 05/12... Start Date: 10/21/19 Stop Date: 11/20/19 Status: Ordered nystatin topical 398268 u/gm ointment 1 application, Topically, 3 times [...] Refills, Maintenance, 10/21/19 14:42:00 EDT, EC Capsule, [facility] #[id number], 149.9, cm, 08/10/19 9:46:00 EST, Height, 94.4, kg, 05/21/19 10:46:00 EDT, Dry Weight Start Date: 10/21/19 Stop Date: 04/18/20 Status: Ordered Singulair 10 mg oral tablet 10 mg, 1, tablet, By Mouth, Daily in PM, BUBBLE PACK PLEASE, # 30 tablet, Refills 5, Tot. Refills 5, Maintenance, 10/21/19 14:41:00 EDT, Route to Pharmacy Electronically, [facility] #67077,149.9, cm, 08/10/19 9:46:00 EST, Height, 94.4, kg,... [...] hands(Confirmed) Active *[facility] [phone] CARE MANAG ER HELEN ROWDY(Confirmed) Active Rib [...]
--- OUTSIDE RECORDS SUMMARY | 2023-03-06 14:50 | XMS_ITS | Continuity of Care Document ---
Author Name Unknown Organization [facility] Address [address] [place] [address]- Care Team Providers Care Cripple Chaser Name Role Phone Rj HAMILTON, Winsome Weiss Primary Care Physician [phone] Encounter [facility] Date(s): 04/25/22 - 05/02/22 [facility] [address] [place] [address]- Attending Physician: Winsome De La Rosa NP [...] 2[facility] 3Admin Note: given at [facility] in [place], [place] 4Result Comment: [07/11/2018] [facility] 5Result Comment: [11/11/2015] given at [facility] [address] [place] [address] [phone] 6[facility] History[facility] 7Admin Note: [facility] 12-28-2012 Medications Breo Ellipta 200 mcg-25 mcg/inh inhalation powder 1 puffs, Inhalation, Daily, # 1 each, 11 Refills, Maintenance, 12/20/21 15:11:00 EDT, Powder, [facility] #[id number], Partial fill upon patient request if the [...] 01/19/22 19:16:00 EDT, Route to Pharmacy Electronically, [facility] #[id number], Partial fill upon patientrequest if the prescription is for a schedule II op... Start Date: 01/19/22 Status: Ordered docusate sodium 100 mg oral capsule 100 mg, 1, capsule, By Mouth, Every 12 hours, PRN, # 60 capsule, Refills 0, Tot. Refills 0, Maintenance, Constipation, 04/23/22 16:44:00 EDT, Route to Pharmacy Electronically, [facility] #[id number], Partial fill upon patient request if the presc... Start Date: 04/23/22 Stop Date: 05/23/22 Status: Ordered docusate sodium 100 mg oral capsule TAKE 1 CAPSULE BY MOUTH TWICE DAILY NEEDED FOR CONSTIPATION Start Date: 02/20/22 Status: Ordered escitalopram 20 mg oral tablet 1 tablet = 20 mg, By Mouth, Daily, # 90 tablet, 1 Refills, Maintenance, 11/29/21 7:27:00 EDT, Tablet, [facility] #[id number], 150, cm, 11/03/21 13:46:00 EDT, Height, 100.8, [...] 12/01/21 16:35:00 EDT, Route to Pharmacy Electronically, [facility] #[id number], Partial fill upon patient request if the prescription is for a sched... Start Date: 12/01/21 Stop Date: 05/30/22 Status: Ordered gabapentin 100 mg oral capsule 200 mg, 2, capsule, By Mouth, 3 times a day, 2 capsules to equal 200 mg three times a day., # 180 capsule, Refills 3, Tot. Refills 3, Maintenance, 12/05/21 20:30:00 EDT, Route to Pharmacy Electronically, [facility] #[id number], Partial fill upon... Start Date: 12/05/21 Status: [...] mL, 3 Refills, Maintenance, 11/29/21 21:45:00 EDT, [facility] #[id number], Partial fill upon patient request if the prescriptionis for a schedule II opioid drug., 150, cm, ... Start Date: 11/29/21 Status: Ordered levothyroxine 0.025 mg oral tablet 1 tablet, By Mouth, Daily, # 90 tablet, 1 Refills, Maintenance, 11/29/21 7:27:00 EDT, Tablet, [facility] #23282, 150, cm, 11/03/21 13:46:00 EDT, Height, 100.8, [...] 0 Refills, Maintenance, 03/01/22 11:00:00 EDT, Tablet, [facility], Partial fill upon patient request if [...] 3 Refills, Maintenance, 04/05/21 13:22:00 EDT, Tablet, [facility] #[id number], Part... Start Date: 04/05/21 Stop Date: 08/03/21 Status: Ordered NovoLOG FlexPen 100 units/mL injectable solution See Instructions, Subcutaneous Infusion 3 times a day before meals. Sliding scale:: 150-200 2 [id number] 4 UNITS 300-350 6 UNITS, # 3 mL, 3 Refills, Maintenance, 12/01/21 11:54:00 EDT, [facility] #[id number], Partial fill upon patient requ... Start Date: [...] 01/19/22 13:52:00 EDT, Route to Pharmacy Electronically, [facility] #[id number], Partial fill upon patient request... Start Date: [...] 10/14/21 18:18:00 EST, Route to Pharmacy Electronically, [facility] #[id number],148.4, cm, 10/05/21 10:50:00 EST, Height, 104.5, kg... Start Date: 10/14/21 Stop Date: 04/12/22 Status: Ordered trospium 60 mg oral capsule, extended release 1 capsule = 60 mg, By Mouth, Daily in AM, # 90 capsule, 0 Refills, Maintenance, 04/04/22 8:37:00 EDT, [facility] #46201, Partial fill upon patient request if the [...] 11 Refills, Maintenance, 03/15/22 10:32:00 EDT, Powder, [facility] #[id number], Partial fill upon patient request if the [...] tingling in hands(Confirmed) Active *[facility] [phone] CARE MANAG ER HELEN ROWDY(Confirmed) Active Hepatitis [...] Name: Winsome De La Rosa NP Address: [address] [place], [place] [address] [place], [place] [address]
--- OUTSIDE RECORDS SUMMARY | 2023-03-06 14:50 | XMS_ITS | Continuity of Care Document ---
Author Name Unknown Organization [facility] Address [address] [place] [phone]- Care Team Providers Care Nurse Transplant Name Role Phone Rj ADJUNCT MATHEMATICS INSTRUCTOR, Winsome Weiss Primary Care Physician Encounter [facility] Date(s): 10/30/21 - 11/29/21 [facility] [address] [place] [address]- [place] Allergies, Adverse Reactions, Alerts Substance Reaction [...] 2Location History: [facility] 3Admin Note: given at [facility] in [place], [place] 4Result Comment: [07/11/2018] [facility] 5Result Comment: [11/11/2015] given at [facility] [address] [place] [address] [phone] 6Location History: [facility] 7Admin Note: boostrix vis 12-28-2012 Medications albuterol 0.083% inhalation solution 3 mL = 2.5 mg, Inhalation, Every 6 hours, PRN Wheezing/Shortness of Breath, # 60 each, 6 Refills, Maintenance, 10/29/14 10:00:25, Solution Start Date: 10/29/14 Status: Ordered escitalopram 20 mg oral tablet 1 tablet = 20 mg, By Mouth, Daily, # 90 tablet, 1 Refills, Maintenance, 11/29/21 7:27:00 EDT, Tablet, [facility] #[id number], 150, cm, 11/03/21 13:46:00 EDT, Height, 100.8, [...] Maintenance,12/27/20 11:32:00 EDT, Route to Pharmacy Electronically, [facility] #[id number], Partial fill upon patient request if the prescription is for a sc... Start Date: 12/27/20 Status: Ordered isosorbide mononitrate 30 mg oral tablet, extended release 30 mg, 1, tablet, By Mouth, Daily in AM, # 30 tablet, Refills 3, Tot. Refills 3, Maintenance, 04/06/21 12:52:00 EDT, Route to Pharmacy Electronically, [facility] #[id number], Partial fill upon patient request if the prescription is for a schedule... Start Date: 04/06/21 Status: Ordered Lantus Solostar Pen 100 units/mL subcutaneous solution = 15 units, Subcutaneous Infusion, Daily, with evening meal, # 15 mL, 3 Refills, Maintenance, 11/29/21 21:45:00 EDT, [facility] #[id number], Partial fill upon patient request if the prescriptionis for a schedule II opioid drug., 150, cm, ... Start Date: 11/29/21 Status: Ordered levothyroxine 0.025 mg oral tablet 1 tablet, By Mouth, Daily, # 90 tablet, 1 Refills, Maintenance, 11/29/21 7:27:00 EDT, Tablet, [facility] #[id number], 150, cm, 11/03/21 13:46:00 EDT, Height, 100.8, kg, 11/01/21 22:19:00 EDT, Dry Weight Start Date: 11/29/21 Stop Date: 05/28/22 Status: Ordered LORazepam 0.5 mg oral tablet 1 tablet = 0.5 mg, By Mouth, Daily, PRN Anxiety, # 24 tablet, 0 Refills, Maintenance, 11/29/21 7:28:00 EDT, Tablet, [facility] #[id number], 150, cm, 11/03/21 13:46:00 EDT, Height, 100.8, [...] 10/03/21 16:04:00 EST, Route to Pharmacy Electronically, [facility] #[id number], Partial fill upon patientrequest if the prescription [...] 3 Refills, Maintenance, 04/05/21 13:22:00 EDT, Tablet, [facility] #[id number], Part... Start Date: 04/05/21 Stop Date: 08/03/21 [...] 10/14/21 18:18:00 EST, Route to Pharmacy Electronically, [facility] #[id number],148.4, cm, 10/05/21 10:50:00 EST, Height, 104.5, kg... [...] 11 Refills, Maintenance, 01/06/21 14:47:00 EDT, Powder, [facility] #[id number], Partial fill upon patient request if the [...] hands(Confirmed) Active *[facility] [phone] CARE MANAG ER HELEN ROWDY(Confirmed) Active Hepatitis [...]
--- OUTSIDE RECORDS SUMMARY | 2023-03-06 14:50 | XMS_ITS | Continuity of Care Document ---
Author Name Unknown Organization [facility] Address [address] [place] [phone]- Care Team Providers Care Superintendent Stations Name Role Phone Rj SEISMOGRAPH OPERATOR, Winsome M Primary Care Physician [phone] Encounter [facility] Date(s): 02/02/22 - 03/04/22 [facility] [address] [place] [address]- [place] Allergies, Adverse Reactions, Alerts Substance Reaction [...] 2[facility] 3Admin Note: given at [facility] in [place] 4Result Comment: [07/11/2018] [facility] 5Result Comment: [11/11/2015] given at [facility] [address] [place] [address] [phone] 6[facility] History[facility] 7Admin Note: boostrix vis [...] 01/19/22 19:16:00 EDT, Route to Pharmacy Electronically, [facility] #[id number], Partial fill upon patientrequest if the prescription is for a schedule II op... Start Date: 01/19/22 Status: Ordered docusate sodium 100 mg oral capsule TAKE 1 CAPSULE BY MOUTH TWICE DAILY NEEDED FOR CONSTIPATION Start Date: 02/20/22 Status: Ordered escitalopram 20 mg oral tablet 1 tablet = 20 mg, By Mouth, Daily, # 90 tablet, 1 Refills, Maintenance, 11/29/21 7:27:00 EDT, Tablet, [facility] #[id number], 150, cm, 11/03/21 13:46:00 EDT, Height, 100.8, [...] 12/01/21 16:35:00 EDT, Route to Pharmacy Electronically, [facility] #[id number], Partial fill upon patient request if the prescription is for a sched... Start Date: 12/01/21 Stop Date: 05/30/22 Status: Ordered gabapentin 100 mg oral capsule 200 mg, 2, capsule, By Mouth, 3 times a day, 2 capsules to equal 200 mg three times a day., # 180 capsule, Refills 3, Tot. Refills 3, Maintenance, 12/05/21 20:30:00 EDT, Route to Pharmacy Electronically, [facility] #[id number], Partial fill upon... Start Date: 12/05/21 Status: [...] mL, 3 Refills, Maintenance, 11/29/21 21:45:00 EDT, [facility] #[id number], Partial fill upon patient request if the prescriptionis for a schedule II opioid drug., 150, cm, ... Start Date: 11/29/21 Status: Ordered levothyroxine 0.025 mg oral tablet 1 tablet, By Mouth, Daily, # 90 tablet, 1 Refills, Maintenance, 11/29/21 7:27:00 EDT, Tablet, [facility] #[id number], 150, cm, 11/03/21 13:46:00 EDT, Height, 100.8, [...] 0 Refills, Maintenance, 03/01/22 11:00:00 EDT, Tablet, [facility], Partial fill upon patient request [...] 3 Refills, Maintenance, 04/05/21 13:22:00 EDT, Tablet, [facility] #69453, Part... Start Date: 04/05/21 Stop Date: 08/03/21 Status: Ordered NovoLOG FlexPen 100 units/mL injectable solution See Instructions, Subcutaneous Infusion 3 times a day before meals. Sliding scale:: 150-200 2 [id number] 4 UNITS 300-350 6 UNITS, # 3 mL, 3 Refills, Maintenance, 12/01/21 11:54:00 EDT, [facility] #[id number], Partial fill upon patient requ... Start Date: 12/01/21 Status: Ordered oxyCODONE 5 mg oral tablet 5 mg, 1, tablet, By Mouth, 3 times a day, PRN, MassPat checked, # 10 tablet, Refills 0, Tot. Refills 0, Maintenance, Pain , Severe, 01/19/22 13:52:00 EDT, Route to Pharmacy Electronically, [facility] #[id number], Partial fill upon patient request... Start Date: [...] 10/14/21 18:18:00 EST, Route to Pharmacy Electronically, [facility] #02134,148.4, cm, 10/05/21 10:50:00 EST, Height, 104.5, kg... [...] 11 Refills, Maintenance, 01/06/21 14:47:00 EDT, Powder, [facility] #[id number], Partial fill upon patient request if the [...] in hands(Confirmed) Active *[facility] [phone] CARE MANAG ER HELEN MGCELIAHerberth(Confirmed) Active Hepatitis C virus infection resolved after [...]
--- OUTSIDE RECORDS SUMMARY | 2023-03-06 14:50 | XMS_ITS | Continuity of Care Document ---
Author Name Unknown Organization [facility] Address [address] [place] [address]- Care Team Providers Care Vegetable Harvest Machine Operator Name Role Phone Rj HAMILTON, Winsome Weiss Primary Care Physician Encounter [facility] Date(s): 02/17/21 - 03/19/21 [facility] [address] [place] [address]- Attending Physician: Kelton Man DO Referring Physician: Winsome [...] [facility] [address] [facility] [place], [place] [id number] 3Result Comment: [07/11/2018] [facility] 4Location History: [facility] 5Admin Note: given at [facility] in [place], [place] 6Location History: [facility] 7Admin Note: boostrix [...] mL, 11 Refills, Maintenance, 01/06/21 14:51:00 EDT, [place], [facility] #[id number], Partial fill upon patient request if the prescriptionis for a schedule II opioid drug., 2 sprays Nares,... Start Date: 01/06/21 Status: Ordered escitalopram 20 mg oral tablet 1 tablet = 20 mg, By Mouth, Daily, # 90 tablet, 1 Refills, Maintenance, 02/14/21 7:29:00 EDT, Tablet, [facility] #[id number], 153, cm, 02/14/21 7:06:00 EDT, Height, 102.4, kg, 11/13/20 18:51:00 EDT, Dry Weight Start Date: 02/14/21 Stop Date: 08/13/21 Status: Ordered ferrous sulfate 325 mg oral enteric coated tablet 325 mg, 1, tablet, By Mouth, 2 times a day, may take with food to minimize abdominal discomfort, # 180 tablet, Refills 1, Tot. Refills 1, Maintenance, 10/04/20 16:08:00 EST, Route to Pharmacy Electronically, [facility] #[id number], 150, cm, 09/26... Start Date: 10/04/20 Stop [...] Maintenance,12/27/20 11:32:00 EDT, Route to Pharmacy Electronically, [facility] #60109, Partial fill upon patient request if the prescription is for a sc... Start Date: 12/27/20 Status: Ordered levothyroxine 0.025 mg oral tablet 1 tablet, By Mouth, Daily, BUBBLE PACK PLEASE, # 90 tablet, 1 Refills, Maintenance, 02/14/21 7:27:00 EDT, Tablet, [facility] #[id number], 153, cm, 02/14/21 7:06:00 EDT, Height, 102.4, kg, 11/13/20 18:51:00 EDT, Dry Weight Start Date: 02/14/21 Stop Date: 08/13/21 Status: Ordered lisinopril 20 mg oral tablet 20 mg, 1, tablet, By Mouth, Daily, BUBBLE PACK PLEASE, # 30 tablet, Refills 5, Tot. Refills 5, Maintenance, 12/15/20 9:29:00 EDT, Route to Pharmacy Electronically, [facility] #[id number], 153, cm, 11/29/20 15:11:00 EDT, Height, 102.4, kg, ... Start Date: 12/15/20 Stop Date: 06/13/21 Status: Ordered LORazepam 1 mg oral tablet 1 tablet = 1 mg, By Mouth, Daily, PRN as needed for anxiety, # 30 tablet, 0 Refills, Maintenance, 02/14/21 7:25:00 EDT, Tablet, [facility] #[id number], 153, cm, 02/14/21 7:06:00 EDT, Height, 102.4, [...] 02/14/21 7:26:00 EDT, Route to Pharmacy Electronically, [facility] #[id number], 153, cm, 02/14/21 7:06:00 EDT, Height, 102.4, kg, 11/13/20 18:51:00 EDT, Dry... Start Date: 02/14/21 Stop Date: 08/13/21 Status: Ordered omeprazole 20 mg oral enteric coated capsule 1 capsule = 20 mg, By Mouth, 2 times a day, BUBBLE PACK PLEASE, # 60 capsule, 3 Refills, Maintenance, 12/22/20 9:44:00 EDT, EC Capsule, [facility] #[id number], 153, cm, 11/29/20 15:11:00 EDT, Height, 102.4, kg, 11/13/20 18:51:00 EDT, Dry Weight Start Date: 12/22/20 Stop Date: 04/21/21 Status: Ordered ProAir HFA 90 mcg/inh inhalation aerosol 2 puffs, Inhalation, 4 times a day, PRN Wheezing/Shortness of Breath, # 2 each, 3 Refills, Maintenance, 11/08/20 17:08:00 EDT, Aerosol, [facility] #[id number], Partial fill upon patient request if the prescription is for a schedule II opioid drug... Start Date: 11/08/20 Stop Date: 03/08/21 Status: Ordered Singulair 10 mg oral tablet 10 mg, 1, tablet, By Mouth, Daily in PM, BUBBLE PACK PLEASE, # 30 tablet, Refills 5, Tot. Refills 5, Maintenance, 03/09/21 15:06:00 EDT, Route to Pharmacy Electronically, [facility] #[id number],148.4, cm, 02/16/21 15:09:00 EDT, Height, 97.6, kg,... Start Date: 03/09/21 Stop Date: 09/05/21 Status: Ordered umeclidinium 62.5 mcg/inh inhalation powder 1 inhalation = 62.5 mcg, Inhalation, Every 24 hours, doses should be taken at least 24 hours apart,# 30 each, 11 Refills, Maintenance, 01/06/21 14:47:00 EDT, Powder, [facility] #[id number], Partial fill upon patient request if the [...] and tingling in hands(Confirmed) Active *[facility] [phone] CARE MANAG ER HELEN RENO(Confirmed) Active Pulmonary [...]
--- OUTSIDE RECORDS SUMMARY | 2023-03-06 14:50 | XMS_ITS | Continuity of Care Document ---
Author Name Unknown Organization [facility] Address [address] [place] [address]- Care Team Providers Care Hop Separator Name Role Phone Rj HAMILTON, Winsome Weiss Primary Care Physician Encounter [facility] Date(s): 12/31/19 - 01/30/[address] [address]- [facility] Attending Physician: Admovidio, Dayana Admitting Physician: Admtr, [...] [07/11/2018] [facility] 2Result Comment: [11/11/2015] given at [facility] [address] [place] [address] [phone] 3Result Comment: [07/11/2018] [facility] 5Admin Note: given at [facility] in [place], [place] 6Location History[facility] 7Admin Note: boostrix [...] 10/21/19 14:37:00 EDT, Route to Pharmacy Electronically, [facility] #[id number], 149.9, cm, 08/10/19 9:46:00 EST, Height, 94.4... [...] 6 Refills, Maintenance, 10/21/19 14:37:00 EDT, Tablet, [email or web address] #[id number], 149.9, cm, 08/10/19 9:46:00 EST, Height, 94.4, kg, 05/21/19 10:46:00 EDT, Dry Weight Start Date: 10/21/19 Status: Ordered FeroSul 325 mg oral tablet 1 tablet = 325 mg, By Mouth, 2 times a day, BUBBLE PACK PLEASE, # 60 tablet, 5 Refills, Soft Stop, 10/21/19 14:38:00 EDT, [email or web address] #[id number], 149.9, cm, 08/10/19 9:46:00 EST, Height, 94.4, kg, 05/21/19 10:46:00 EDT, Dry Weight Start Date: 10/21/19 Stop Date: 04/18/20 Status: Ordered ferrous sulfate 325 mg oral enteric coated tablet 325 mg, 1, tablet, By Mouth, 2 times a day, # 180 tablet, Refills 1, Tot. Refills 1, Maintenance, 12/24/18 14:50:03 EDT, [facility]ically[id number] Start Date: 12/24/18 Stop Date: 06/22/19 [...] 01/18/20 10:21:00 EDT, Route to Pharmacy Electronically, [email or web address] #[id number], 149.9, cm, 12/31/19 13:16:00 EDT, Height, 94.4... Start Date: 01/18/20 Stop Date: 02/17/20 Status: Ordered levothyroxine 0.025 mg oral tablet 1 tablet, By Mouth, Daily, BUBBLE PACK PLEASE, # 30 tablet, 5 Refills, Maintenance, 10/21/19 14:40:00 EDT, Tablet, [email or web address] #03579, 149.9, cm, 08/10/19 9:46:00 EST, Height, 94.4, kg, 05/21/19 10:46:00 EDT, Dry Weight Start Date: 10/21/19 Stop Date: 04/18/20 Status: Ordered lisinopril 20 mg oral tablet 20 mg, 1, tablet, By Mouth, Daily, BUBBLE PACK PLEASE, # 30 tablet, Refills 5, Tot. Refills 5, Maintenance, 10/21/19 14:40:00 EDT, Route to Pharmacy Electronically, [email or web address] #[id number], 149.9, cm, 08/10/19 9:46:00 EST, Height, 94.4, kg, ... Start Date: 10/21/19 Stop Date: 04/18/20 Status: Ordered LORazepam 1 mg oral tablet 1 tablet = 1 mg, By Mouth, Daily, PRN as needed for anxiety, # 30 tablet, 0 Refills, Maintenance, 12/17/19 15:01:00 EDT, Tablet, [email or web address] #[id number], 149.9, cm, 12/17/19 13:34:00 EDT, Height,94.4, kg, 05/21/19 10:46:00 EDT, Dry Weight Start Date: 12/17/19 Stop Date: 01/16/20 Status: Ordered nortriptyline 50 mg oral capsule 50 mg, 1, capsule, By Mouth, Daily, BUBBLE PACK PLEASE, # 30 capsule, Refills 0, Tot. Refills 0, Maintenance, 01/11/20 13:43:00 EDT, Route to Pharmacy Electronically, [email or web address] #[id number], 149.9, cm, 12/31/19 13:16:00 EDT, Height, 94.4, kg, ... Start Date: 01/11/20 Stop Date: 02/10/20 Status: Ordered nystatin topical 615967 u/gm ointment 1 application, Topically, 3 times [...] Refills, Maintenance, 10/21/19 14:42:00 EDT, EC Capsule, [email or web address] #57726, 149.9, cm, 08/10/19 9:46:00 EST, Height, 94.4, kg, 05/21/19 10:46:00 EDT, Dry Weight Start Date: 10/21/19 Stop Date: 04/18/20 Status: Ordered Singulair 10 mg oral tablet 10 mg, 1, tablet, By Mouth, Daily in PM, BUBBLE PACK PLEASE, # 30 tablet, Refills 5, Tot. Refills 5, Maintenance, 10/21/19 14:41:00 EDT, Route to Pharmacy Electronically, [facility] #[id number],149.9, cm, 08/10/19 9:46:00 EST, Height, 94.4, kg,... [...] in hands(Confirmed) Active *[facility] [phone] CARE MANAG ER HELEN ROWDY(Confirmed) Active Rib [...]
--- OUTSIDE RECORDS SUMMARY | 2023-03-06 14:50 | XMS_ITS | Continuity of Care Document ---
Author Name Unknown Organization [facility] Address [address] [place] [address]- Care Team Providers Care Rural Route Mail Carrier Name Role Phone Rj HAMILTON, Winsome M Primary Care Physician Encounter [facility] Date(s): 04/15/20 - 05/15/20 [facility] [address] [place] [address]- [facility] Allergies, Adverse Reactions, Alerts Substance Reaction [...] [07/11/2018] [facility] 2Result Comment: [11/11/2015] given at [facility] [address] [place], [place] [id number] 3Result Comment: [07/11/2018] [facility] 4[facility] 5Admin Note: given at [facility] in [place], [place] 6Location History[facility] 7Admin Note: boostrix [...] 03/15/20 14:44:00 EDT, Route to Pharmacy Electronically, [facility] #[id number], 149.9, cm, 0... Start Date: 03/15/20 Stop Date: 09/11/20 Status: Ordered Colace sodium 100 mg oral capsule 100 mg, 1, capsule, By Mouth, 2 times a day, BUBBLE PACK PLEASE, # 180 capsule, Refills 1, Tot. Refills 1, Maintenance, 04/18/20 14:37:00 EDT, Route to Pharmacy Electronically, [facility] #[id number], 149.9, cm, 03/07/20 10:17:00 EDT, Height, 103... [...] 5 Refills, Maintenance, 04/27/20 9:19:00 EDT, Tablet, [facility] #[id number], 149.9, cm, 04/27/20 9:00:00 EDT, Height, 103.8, kg, 03/07/20 10:17:00 EDT, Dry Weight Start Date: 04/27/20 Stop Date: 10/24/20 Status: Ordered FeroSul 325 mg oral tablet 1 tablet = 325 mg, By Mouth, 2 times a day, BUBBLE PACK PLEASE, # 60 tablet, 5 Refills, Soft Stop, 04/18/20 14:38:00 EDT, [facility] #54578, 149.9, cm, 03/07/20 10:17:00 EDT, Height, 103.8,kg, 03/07/20 10:17:00 EDT, Dry Weight Start Date: 04/18/20 Stop Date: 10/15/20 Status: Ordered ferrous sulfate 325 mg oral enteric coated tablet 325 mg, 1, tablet, By Mouth, 2 times a day, # 180 tablet, Refills 1, Tot. Refills 1, Maintenance, 12/24/18 14:50:03 EDT, [id number] Start Date: 12/24/18 Stop Date: 06/22/19 [...] 04/27/20 9:20:00 EDT, Route to Pharmacy Electronically, [facility] #38981, 149.9, cm, 04/27/20 9:00:00 EDT, Height, 103.8,... Start Date: 04/27/20 Stop Date: 08/25/20 Status: Ordered levothyroxine 0.025 mg oral tablet 1 tablet, By Mouth, Daily, BUBBLE PACK PLEASE, # 30 tablet, 5 Refills, Maintenance, 04/27/20 9:20:00 EDT, Tablet, [facility] #27827, 149.9, cm, 04/27/20 9:00:00 EDT, Height, 103.8, kg, 03/07/20 10:17:00 EDT, Dry Weight Start Date: 04/27/20 Stop Date: 10/24/20 Status: Ordered lisinopril 20 mg oral tablet 20 mg, 1, tablet, By Mouth, Daily, BUBBLE PACK PLEASE, # 30 tablet, Refills 5, Tot. Refills 5, Maintenance, 04/27/20 9:21:00 EDT, Route to Pharmacy Electronically, [facility] #15208, 149.9,cm, 04/27/20 9:00:00 EDT, Height, 103.8, kg, 03/07/... Start Date: 04/27/20 Stop Date: 10/24/20 Status: Ordered LORazepam 1 mg oral tablet 1 tablet = 1 mg, By Mouth, Daily, PRN as needed for anxiety, # 30 tablet, 0 Refills, Maintenance, 04/12/20 14:39:00 EDT, Tablet, [facility] #[id number], 149.9, cm, 03/31/20 15:03:00 EDT, Height,103.8, kg, 03/07/20 10:17:00 EDT, Dry Weight Start Date: 04/12/20 Stop Date: 05/12/20 Status: Ordered nortriptyline 50 mg oral capsule 50 mg, 1, capsule, By Mouth, Daily, BUBBLE PACK PLEASE, # 30 capsule, Refills 6, Tot. Refills 6, Maintenance, 03/25/20 19:21:00 EDT, Route to Pharmacy Electronically, [facility] #18019, 149.9, cm, 03/07/20 10:17:00 EDT, Height, 103.8, kg, 07... Start Date: 03/25/20 Stop Date: 10/21/20 Status: Ordered nystatin topical 417251 u/gm ointment 1 application, Topically, 3 times [...] Refills, Maintenance, 04/27/20 9:19:00 EDT, EC Capsule, [facility] #55315, 149.9, cm, 04/27/20 9:00:00 EDT, Height, 103.8, kg, 03/07/20 10:17:00 EDT, Dry Weight Start Date: 04/27/20 Stop Date: 10/24/20 Status: Ordered Singulair 10 mg oral tablet 10 mg, 1, tablet, By Mouth, Daily in PM, BUBBLE PACK PLEASE, # 30 tablet, Refills 5, Tot. Refills 5, Maintenance, 03/02/20 16:02:00 EDT, Route to Pharmacy Electronically, [facility] #25558,149.9, cm, 03/02/20 10:16:00 EDT, Height, 94.4, kg,... [...] and tingling in hands(Confirmed) Active *[facility] [phone] CARE MANAG ER HELEN RENO(Confirmed) Active Rib [...]
--- OUTSIDE RECORDS SUMMARY | 2023-03-06 14:50 | XMS_ITS | Continuity of Care Document ---
Author Name Unknown Organization [facility] ter Address [address] [place] [address]- Care Team Providers Care Loan Originator Name Role Phone Rj HAMILTON, Winsome Weiss Primary Care Physician [phone] Encounter [facility] Date(s): 06/20/21 - 11/15/[address] [address] Attending Physician: Ferdinand Murrieta MD Admitting Physician: Ferdinand Murrieta MD Allergies, Adverse Reactions, Alerts Substance Reaction [...] 2[facility] 3Admin Note: given at [facility] in [place] 4Result Comment: [07/11/2018] [facility] 5Result Comment: [11/11/2015] given at [facility] [address] [place] [address] [phone] 6Location History[facility] 7Admin Note: [facility] 12-28-2012 Medications albuterol 0.083% inhalation solution 3 mL = 2.5 mg, Inhalation, Every 6 hours, PRN Wheezing/Shortness of Breath, # 60 each, 6 Refills, Maintenance, 10/29/14 10:00:25, Solution Start Date: 10/29/14 Status: Ordered escitalopram 20 mg oral tablet 1 tablet = 20 mg, By Mouth, Daily, # 90 tablet, 1 Refills, Maintenance, 07/12/21 7:37:00 EST, Tablet, [facility] #[id number], 148.4, cm, 06/01/21 8:57:00 EDT, Height, 97.3, [...] Maintenance,12/27/20 11:32:00 EDT, Route to Pharmacy Electronically, [facility] #[id number], Partial fill upon patient request if the prescription is for a sc... Start Date: 12/27/20 Status: Ordered isosorbide mononitrate 30 mg oral tablet, extended release 30 mg, 1, tablet, By Mouth, Daily in AM, # 30 tablet, Refills 3, Tot. Refills 3, Maintenance, 04/06/21 12:52:00 EDT, Route to Pharmacy Electronically, [facility] #[id number], Partial fill upon patient request if the prescription is for a schedule... Start Date: 04/06/21 Status: Ordered levothyroxine 0.025 mg oral tablet 1 tablet, By Mouth, Daily, BUBBLE PACK PLEASE, # 90 tablet, 1 Refills, Maintenance, 07/12/21 7:38:00 EST, Tablet, [facility] #71437, 148.4, cm, 06/01/21 8:57:00 EDT, Height, 97.3, [...] 10/03/21 16:04:00 EST, Route to Pharmacy Electronically, [facility] #[id number], Partial fill upon patientrequest if the prescription [...] 3 Refills, Maintenance, 04/05/21 13:22:00 EDT, Tablet, [facility] #49204, Part... Start Date: 04/05/21 Stop Date: 08/03/21 [...] 10/14/21 18:18:00 EST, Route to Pharmacy Electronically, [facility] #47465,148.4, cm, 10/05/21 10:50:00 EST, Height, 104.5, kg... [...] 11 Refills, Maintenance, 01/06/21 14:47:00 EDT, Powder, [facility] #69220, Partial fill upon patient request if the [...] Active *[facility] [phone] CARE MANAG ER HELEN RENO(Confirmed) Active Hepatitis [...]
--- OUTSIDE RECORDS SUMMARY | 2023-03-06 14:50 | XMS_ITS | Continuity of Care Document ---
Author Name Unknown Organization [facility] Address [address] [place] [address]- Care Team Providers Care Physical Medicine Teacher Name Role Phone Rj FLAT IRONER, Winsome M Primary Care Physician Encounter [facility] [id number] Date(s): 10/10/21 - 12/09/21 [facility] [address] [place] [address]- Attending Physician: Kareem LE, Samantha Whitaker Allergies, Adverse Reactions, Alerts [...] sukhi 1Result Comment: [07/11/2018] Gwendolyn 2Location History: [facility] 3Admin Note: given at [facility] in [place], [place] 4Result Comment: [07/11/2018] [facility] 5Result Comment: [11/11/2015] given at [facility] [address] [place] [address] [phone] 6Location History: [facility] 7Admin Note: boostrix vis 12-28-2012 Medications albuterol 0.083% inhalation solution 3 mL = 2.5 mg, Inhalation, Every 6 hours, PRN Wheezing/Shortness of Breath, # 60 each, 6 Refills, Maintenance, 10/29/14 10:00:25, Solution Start Date: 10/29/14 Status: Ordered escitalopram 20 mg oral tablet 1 tablet = 20 mg, By Mouth, Daily, # 90 tablet, 1 Refills, Maintenance, 11/29/21 7:27:00 EDT, Tablet, [facility] #[id number], 150, cm, 11/03/21 13:46:00 EDT, Height, 100.8, kg, 11/01/21 22:19:00EDT, Dry Weight Start Date: 11/29/21 Stop Date: 05/28/22 Status: Ordered furosemide 20 mg oral tablet 20 mg, 1, tablet, By Mouth, 2 times a day, # 180 tablet, Refills 1, Tot. Refills 1, Maintenance, 12/01/21 16:35:00 EDT, Route to Pharmacy Electronically, [facility] #[id number], Partial fill upon patient request if the [...] 12/05/21 20:30:00 EDT, Route to Pharmacy Electronically, [facility] #[id number], Partial fill upon... Start Date: 12/05/21 Status: Ordered gabapentin 100 mg oral capsule 200 mg, 2, capsule, By Mouth, 3 times a day, # 180 capsule, Refills 3, Tot. Refills 3, Maintenance,12/27/20 11:32:00 EDT, Route to Pharmacy Electronically, [facility] #[id number], Partial fill upon patient request if the prescription is for a sc... Start Date: 12/27/20 Status: Ordered isosorbide mononitrate 30 mg oral tablet, extended release 30 mg, 1, tablet, By Mouth, Daily in AM, # 30 tablet, Refills 3, Tot. Refills 3, Maintenance, 04/06/21 12:52:00 EDT, Route to Pharmacy Electronically, [facility] #[id number], Partial fill upon patient request if the prescription is for a schedule... Start Date: 04/06/21 Status: Ordered Lantus Solostar Pen 100 units/mL subcutaneous solution = 15 units, Subcutaneous Infusion, Daily, with evening meal, # 15 mL, 3 Refills, Maintenance, 11/29/21 21:45:00 EDT, [facility] #[id number], Partial fill upon patient request if the prescriptionis for a schedule II opioid drug., 150, cm, ... Start Date: 11/29/21 Status: Ordered levothyroxine 0.025 mg oral tablet 1 tablet, By Mouth, Daily, # 90 tablet, 1 Refills, Maintenance, 11/29/21 7:27:00 EDT, Tablet, [facility] #[id number], 150, cm, 11/03/21 13:46:00 EDT, Height, 100.8, kg, 11/01/21 22:19:00 EDT, Dry Weight Start Date: 11/29/21 Stop Date: 05/28/22 Status: Ordered LORazepam 0.5 mg oral tablet 1 tablet = 0.5 mg, By Mouth, Daily, PRN Anxiety, # 24 tablet, 0 Refills, Maintenance, 11/29/21 7:28:00 EDT, Tablet, [facility] #[id number], 150, cm, 11/03/21 13:46:00 EDT, Height, 100.8, [...] 12/01/21 16:36:00 EDT, Route to Pharmacy Electronically, [facility] #[id number], Partial fill upon patientrequest if the prescription is for a schedule II op... Start Date: 12/01/21 Stop Date: 03/01/22 Status: Ordered nitroglycerin 0.4 mg sublingual tablet 1 tablet = 0.4 mg, Sublingual, Every 5 minutes, PRN as needed for chest pain, not to exceed 3 doses/15 min--if pain persists, seek medical attention, # 30 tablet, 3 Refills, Maintenance, 04/05/21 13:22:00 EDT, Tablet, [facility] #[id number], Part... Start Date: 04/05/21 Stop Date: 08/03/21 Status: Ordered NovoLOG FlexPen 100 units/mL injectable solution See Instructions, Subcutaneous Infusion 3 times a day before meals. Sliding scale:: 150-200 2 [id number] 4 UNITS 300-350 6 UNITS, # 3 mL, 3 Refills, Maintenance, 12/01/21 11:54:00 EDT, [facility] #[id number], Partial fill upon patient requ... Start Date: [...] 10/14/21 18:18:00 EST, Route to Pharmacy Electronically, [facility] #[id number],148.4, cm, 10/05/21 10:50:00 EST, Height, 104.5, kg... Start Date: 10/14/21 Stop Date: 04/12/22 Status: Ordered spironolactone 100 mg oral tablet 100 mg, 1, tablet, By Mouth, Daily, # 90 tablet, Refills 1, Tot. Refills 1, Maintenance, 12/01/21 16:34:00 EDT, Route to Pharmacy Electronically, [facility] #[id number], Partial fill upon patient request if the prescription is for a schedule II o... Start Date: 12/01/21 Stop Date: 05/30/22 Status: Ordered umeclidinium 62.5 mcg/inh inhalation powder 1 inhalation = 62.5 mcg, Inhalation, Every 24 hours, doses should be taken at least 24 hours apart,# 30 each, 11 Refills, Maintenance, 01/06/21 14:47:00 EDT, Powder, [facility] #[id number], Partial fill upon patient request if the [...] Active Numbness and tingling in hands(Confirmed) Active *[facility] [phone] CARE MANAG ER HELEN RENO(Confirmed) Active Hepatitis [...]
--- OUTSIDE RECORDS SUMMARY | 2023-03-06 14:50 | XMS_ITS | Continuity of Care Document ---
Author Name Unknown Organization [facility] Address [address] [place] [address]- Care Team Providers Care Mgmt Analyst Name Role Phone Rj HAMILTON, Winsome M Primary Care Physician Encounter [facility] Date(s): 05/31/21 - 06/30/21 [facility] [address] [place] [address]- [place] Allergies, Adverse Reactions, Alerts Substance Reaction [...] [07/11/2018] [facility] 2Result Comment: [11/11/2015] given at [facility] [address] [place] [address] [phone] 3Result Comment: [07/11/2018] [facility] 5Admin Note: given at [facility] in [place], [place] 6Location History[facility] 7Admin Note: boostrix [...] mL, 11 Refills, Maintenance, 01/06/21 14:51:00 EDT, [place], [facility] #[id number], Partial fill upon patient request if the prescriptionis for a schedule II opioid drug., 2 sprays Nares,... Start Date: 01/06/21 Status: Ordered clopidogrel 75 mg oral tablet 75 mg, 1, tablet, By Mouth, Daily, # 30 tablet, Refills 3, Tot. Refills 3, Maintenance, 04/06/21 16:33:00 EDT, Route to Pharmacy Electronically, [facility] #[id number], Partial fill upon patientrequest if the prescription is for a schedule II op... Start Date: 04/06/21 Status: Ordered dicyclomine 10 mg oral capsule 1 capsule = 10 mg, By Mouth, 4 times a day, PRN Pain , Moderate, # 28 capsule, 0 Refills, Maintenance, 05/11/21 15:51:00 EDT, Capsule, [facility] #[id number], Partial fill upon patient request if the prescription is for a schedule II opioid drug.... Start Date: 05/11/21 Stop Date: 05/18/21 Status: Ordered escitalopram 20 mg oral tablet 1 tablet = 20 mg, By Mouth, Daily, # 90 tablet, 1 Refills, Maintenance, 02/14/21 7:29:00 EDT, Tablet, [facility] #[id number], 153, cm, 02/14/21 7:06:00 EDT, Height, 102.4, kg, 11/13/20 18:51:00 EDT, Dry Weight Start Date: 02/14/21 Stop Date: 08/13/21 Status: Ordered ferrous sulfate 325 mg oral enteric coated tablet 325 mg, 1, tablet, By Mouth, 2 times a day, may take with food to minimize abdominal discomfort, # 180 tablet, Refills 1, Tot. Refills 1, Maintenance, 05/02/21 8:25:00 EDT, Route to Pharmacy Electronically, [facility] #[id number], 148.4, cm, 070... Start Date: 05/02/21 Stop Date: 10/29/21 Status: [...] Maintenance,12/27/20 11:32:00 EDT, Route to Pharmacy Electronically, [facility] #[id number], Partial fill upon patient request if the prescription is for a sc... Start Date: 12/27/20 Status: Ordered isosorbide mononitrate 30 mg oral tablet, extended release 30 mg, 1, tablet, By Mouth, Daily in AM, # 30 tablet, Refills 3, Tot. Refills 3, Maintenance, 04/05/21 13:22:00 EDT, Route to Pharmacy Electronically, [facility] #[id number], Partial fill upon patient request if the prescription is for a schedule... Start Date: 04/05/21 Stop Date: 08/03/21 Status: Ordered isosorbide mononitrate 30 mg oral tablet, extended release 30 mg, 1, tablet, By Mouth, Daily in AM, # 30 tablet, Refills 3, Tot. Refills 3, Maintenance, 04/06/21 12:52:00 EDT, Route to Pharmacy Electronically, [facility] #[id number], Partial fill upon patient request if the prescription is for a schedule... Start Date: 04/06/21 Status: Ordered levothyroxine 0.025 mg oral tablet 1 tablet, By Mouth, Daily, BUBBLE PACK PLEASE, # 90 tablet, 1 Refills, Maintenance, 02/14/21 7:27:00 EDT, Tablet, [facility] #[id number], 153, cm, 02/14/21 7:06:00 EDT, Height, 102.4, kg, 11/13/20 18:51:00 EDT, Dry Weight Start Date: 02/14/21 Stop Date: 08/13/21 Status: Ordered lisinopril 20 mg oral tablet 20 mg, 1, tablet, By Mouth, Daily, BUBBLE PACK PLEASE, # 90 tablet, Refills 1, Tot. Refills 1, Maintenance, 06/12/21 9:50:00 EDT, Route to Pharmacy Electronically, [facility] #[id number], 148.4,cm, 06/01/21 8:57:00 EDT, Height, 97.3, kg, ... Start Date: 06/12/21 Stop Date: 12/09/21 Status: Ordered LORazepam 1 mg oral tablet 1 tablet = 1 mg, By Mouth, Daily, PRN as needed for anxiety, covering provider, # 30 tablet, 0 Refills, Maintenance, 05/22/21 16:47:00 EDT, Tablet, [facility] #[id number], 148.4, cm, 02/16/21 15:09:00 EDT, Height, 97.6, kg, 02/15/21 17:00:00 EDT,... Start Date: 05/22/21 Stop Date: 06/21/21 Status: Ordered LORazepam 1 mg oral tablet 1 tablet = 1 mg, By Mouth, Daily, PRN as needed for anxiety, # 30 tablet, 0 Refills, Maintenance, 03/24/21 12:18:00 EDT, Tablet, [facility] #[id number], 148.4, cm, 02/16/21 15:09:00 EDT, Height,97.6, kg, [...] 3 Refills, Maintenance, 04/05/21 13:22:00 EDT, Tablet, [facility] #[id number], Part... Start Date: 04/05/21 Stop Date: 08/03/21 Status: Ordered nortriptyline 50 mg oral capsule 50 mg, 1, capsule, By Mouth, Daily, # 90 capsule, Refills 1, Tot. Refills 1, Maintenance, 02/14/21 7:26:00 EDT, Route to Pharmacy Electronically, [facility] #[id number], 153, cm, 02/14/21 7:06:00 EDT, Height, 102.4, kg, 11/13/20 18:51:00 EDT, Dry... Start Date: 02/14/21 Stop Date: 08/13/21 Status: Ordered omeprazole 20 mg oral enteric coated capsule 1 capsule = 20 mg, By Mouth, 2 times a day, BUBBLE PACK PLEASE, # 60 capsule, 3 Refills, Maintenance, 04/21/21 17:24:00 EDT, EC Capsule, [facility] #[id number], 148.4, cm, 02/16/21 15:09:00 EDT,Height, 97.6, kg, 02/15/21 17:00:00 EDT, Dry Weight Start Date: 04/21/21 Stop Date: 08/19/21 Status: Ordered ProAir HFA 90 mcg/inh inhalation aerosol 2 puffs, Inhalation, 4 times a day, PRN Wheezing/Shortness of Breath, # 2 each, 3 Refills, Maintenance, 11/08/20 17:08:00 EDT, Aerosol, [facility] #[id number], Partial fill upon patient request if the prescription is for a schedule II opioid drug... Start Date: 11/08/20 Stop Date: 03/08/21 Status: Ordered Singulair 10 mg oral tablet 10 mg, 1, tablet, By Mouth, Daily in PM, BUBBLE PACK PLEASE, # 30 tablet, Refills 5, Tot. Refills 5, Maintenance, 03/09/21 15:06:00 EDT, Route to Pharmacy Electronically, [facility] #[id number],148.4, cm, 02/16/21 15:09:00 EDT, Height, 97.6, kg,... Start Date: 03/09/21 Stop Date: 09/05/21 Status: Ordered umeclidinium 62.5 mcg/inh inhalation powder 1 inhalation = 62.5 mcg, Inhalation, Every 24 hours, doses should be taken at least 24 hours apart,# 30 each, 11 Refills, Maintenance, 01/06/21 14:47:00 EDT, Powder, [facility] #[id number], Partial fill upon patient request if the [...] Numbness and tingling in hands(Confirmed) Active *[facility] [phone] CARE MANAG ER HELEN RENO(Confirmed) Active Pulmonary [...]
--- OUTSIDE RECORDS SUMMARY | 2023-03-06 14:50 | XMS_ITS | Continuity of Care Document ---
Author Name Unknown Organization [facility] Address [address] [place] [address]- Care Team Providers Care Life Science Research Assistant Name Role Phone Rj MAINTENANCE TRUCK DRIVER, Winsome Weiss Primary Care Physician Encounter [facility] Date(s): 11/21/20 - 12/21/20 [facility] [address] [place] [address] Allergies, Adverse Reactions, Alerts Substance [...] [07/11/2018] [facility] 2Result Comment: [11/11/2015] given at [facility] [address] [place] [address] 3Result Comment: [07/11/2018] [facility] 5Admin Note: given at [facility] in [place], [place] 6Location History[facility] 7Admin Note: boostrix [...] 06/21/20 16:00:00 EST, Route to Pharmacy Electronically, [facility] #[id number], 149.9, cm, 06/21/20 13:54:00 EST, Height, 103.8, kg, 06/21/20 13:54:... Start Date: 06/21/20 Stop Date: 06/29/20 Status: Ordered Colace sodium 100 mg oral capsule 100 mg, 1, capsule, By Mouth, 2 times a day, BUBBLE PACK PLEASE, # 180 capsule, Refills 1, Tot. Refills 1, Maintenance, 11/08/20 17:06:00 EDT, Route to Pharmacy Electronically, [facility] #[id number], 152.4, cm, 11/07/20 7:59:00 EDT, Height, 100.... Start Date: 11/08/20 Stop Date: 05/07/21 Status: Ordered escitalopram 20 mg oral tablet 1 tablet = 20 mg, By Mouth, Daily, # 30 tablet, 5 Refills, Maintenance, 07/22/20 9:23:00 EST, Tablet, [facility] #[id number], 153, cm, 07/22/20 9:04:00 EST, Height, 106, kg, 07/08/20 13:49:00 EST, Dry Weight Start Date: 07/22/20 Stop Date: 01/18/21 Status: Ordered ferrous sulfate 325 mg oral enteric coated tablet 325 mg, 1, tablet, By Mouth, 2 times a day, may take with food to minimize abdominal discomfort, # 180 tablet, Refills 1, Tot. Refills 1, Maintenance, 10/04/20 16:08:00 EST, Route to Pharmacy Electronically, [facility] #[id number], 150, cm, 02/15... Start Date: 10/04/20 Stop Date: 04/02/21 Status: Ordered Flovent HFA 220 mcg/inh inhalation aerosol 2 puffs, Inhalation, 2 times a day, # 1 each, 6 Refills, Maintenance, 11/08/20 17:06:00 EDT, Aerosol, [facility] #[id number], 152.4, cm, 11/07/20 7:59:00 EDT, Height, 100.2, kg, 11/07/20 7:59:00EDT, Dry Weight Start Date: 11/08/20 Stop Date: 06/06/21 Status: Ordered gabapentin 100 mg oral capsule 200 mg, 2, capsule, By Mouth, 3 times a day, # 180 capsule, Refills 1, Tot. Refills 1, Maintenance,09/14/20 15:22:00 EST, Route to Pharmacy Electronically, [facility] #[id number], Partial fill upon patient request if the prescription is for a sc... Start Date: 09/14/20 Status: Ordered Lasix 20 mg oral tablet See Instructions, 1 tablet By Mouth Daily, # 10 tablet, Refills 0, Tot. Refills 0, Maintenance, 11/13/20 22:27:00 EDT, Instructions Replace Required Details, Route to Pharmacy Electronically, [facility] #[id number], Partial fill upon patient requ... Start Date: 11/13/20 Status: Ordered levothyroxine 0.025 mg oral tablet 1 tablet, By Mouth, Daily, BUBBLE PACK PLEASE, # 30 tablet, 5 Refills, Maintenance, 07/22/20 9:24:00 EST, Tablet, [facility] #[id number], 153, cm, 07/22/20 9:04:00 EST, Height, 106, kg, 07/08/2013:49:00 EST, Dry Weight Start Date: 07/22/20 Stop Date: 01/18/21 Status: Ordered lisinopril 20 mg oral tablet 20 mg, 1, tablet, By Mouth, Daily, BUBBLE PACK PLEASE, # 30 tablet, Refills 5, Tot. Refills 5, Maintenance, 12/15/20 9:29:00 EDT, Route to Pharmacy Electronically, [facility] #[id number], 153, cm, 11/29/20 15:11:00 EDT, Height, 102.4, kg, ... Start Date: 12/15/20 Stop Date: 06/13/21 Status: Ordered LORazepam 1 mg oral tablet 1 tablet = 1 mg, By Mouth, Daily, PRN as needed for anxiety, # 30 tablet, 0 Refills, Maintenance, 12/15/20 9:28:00 EDT, Tablet, [facility] #[id number], 153, cm, 11/29/20 15:11:00 EDT, Height, 102.4, [...] 03/25/20 19:21:00 EDT, Route to Pharmacy Electronically, [facility] #[id number], 149.9, cm, 03/07/20 10:17:00 EDT, Height, 103.8, kg, 07... Start Date: 03/25/20 Stop Date: 10/21/20 Status: Ordered nystatin topical [id number] u/gm ointment 1 application, Topically, 3 times [...] Refills, Maintenance, 10/24/20 9:19:00 EDT, EC Capsule, [facility] #61725, 149.9, cm, 06/14/20 14:58:00 EST, Height, 101, kg, 06/07/20 10:02:00 EDT, Dry Weight Start Date: 10/24/20 Stop Date: 02/21/21 Status: Ordered ProAir HFA 90 mcg/inh inhalation aerosol 2 puffs, Inhalation, 4 times a day, PRN Wheezing/Shortness of Breath, # 2 each, 3 Refills, Maintenance, 11/08/20 17:08:00 EDT, Aerosol, [facility] #85962, Partial fill upon patient request if the prescription is for a schedule II opioid drug... Start Date: 11/08/20 Stop Date: 03/08/21 Status: Ordered Singulair 10 mg oral tablet 10 mg, 1, tablet, By Mouth, Daily in PM, BUBBLE PACK PLEASE, # 30 tablet, Refills 5, Tot. Refills 5, Maintenance, 07/22/20 9:24:00 EST, Route to Pharmacy Electronically, [facility] #[id number], 153, cm, 07/22/20 9:04:00 EST, Height, 106, [...] Active *[facility] [phone] CARE MANAG ER HELEN RENO(Confirmed) Active Pulmonary [...]
--- OUTSIDE RECORDS SUMMARY | 2023-03-06 14:50 | XMS_ITS | Continuity of Care Document ---
Author Name Unknown Organization [facility] ter Address [address] [place] [address]- Care Team Providers Care Accounting Technician Name Role Phone Rj ACCOUNTING TECHNICIAN, Winsome Weiss Primary Care Physician [phone] Encounter [facility] Date(s): 12/08/20 - 06/23/[address] [address] Attending Physician: Tolu Molina MD Admitting Physician: Tolu Molina MD Allergies, Adverse Reactions, Alerts Substance Reaction [...] [07/11/2018] [facility] 2Result Comment: [11/11/2015] given at [facility] [address] [place], [place] [id number] 3Result Comment: [07/11/2018] [facility] 5Admin Note: given at [facility] in [place], [place] 6Location History[facility] 7Admin Note: boostrix [...] mL, 11 Refills, Maintenance, 01/06/21 14:51:00 EDT, [place], [facility] #[id number], Partial fill upon patient request if the prescriptionis for a schedule II opioid drug., 2 sprays Nares,... Start Date: 01/06/21 Status: Ordered clopidogrel 75 mg oral tablet 75 mg, 1, tablet, By Mouth, Daily, # 30 tablet, Refills 3, Tot. Refills 3, Maintenance, 04/06/21 16:33:00 EDT, Route to Pharmacy Electronically, [facility] #[id number], Partial fill upon patientrequest if the prescription is for a schedule II op... Start Date: 04/06/21 Status: Ordered dicyclomine 10 mg oral capsule 1 capsule = 10 mg, By Mouth, 4 times a day, PRN Pain , Moderate, # 28 capsule, 0 Refills, Maintenance, 05/11/21 15:51:00 EDT, Capsule, [facility] #[id number], Partial fill upon patient request if the prescription is for a schedule II opioid drug.... Start Date: 05/11/21 Stop Date: 05/18/21 Status: Ordered escitalopram 20 mg oral tablet 1 tablet = 20 mg, By Mouth, Daily, # 90 tablet, 1 Refills, Maintenance, 02/14/21 7:29:00 EDT, Tablet, [facility] #[id number], 153, cm, 02/14/21 7:06:00 EDT, Height, 102.4, kg, 11/13/20 18:51:00 EDT, Dry Weight Start Date: 02/14/21 Stop Date: 08/13/21 Status: Ordered ferrous sulfate 325 mg oral enteric coated tablet 325 mg, 1, tablet, By Mouth, 2 times a day, may take with food to minimize abdominal discomfort, # 180 tablet, Refills 1, Tot. Refills 1, Maintenance, 05/02/21 8:25:00 EDT, Route to Pharmacy Electronically, [facility] #[id number], 148.4, cm, 07/0... Start Date: 05/02/21 Stop [...] Maintenance,12/27/20 11:32:00 EDT, Route to Pharmacy Electronically, [facility] #[id number], Partial fill upon patient request if the prescription is for a sc... Start Date: 12/27/20 Status: Ordered isosorbide mononitrate 30 mg oral tablet, extended release 30 mg, 1, tablet, By Mouth, Daily in AM, # 30 tablet, Refills 3, Tot. Refills 3, Maintenance, 04/05/21 13:22:00 EDT, Route to Pharmacy Electronically, [facility] #[id number], Partial fill upon patient request if the prescription is for a schedule... Start Date: 04/05/21 Stop Date: 08/03/21 Status: Ordered isosorbide mononitrate 30 mg oral tablet, extended release 30 mg, 1, tablet, By Mouth, Daily in AM, # 30 tablet, Refills 3, Tot. Refills 3, Maintenance, 04/06/21 12:52:00 EDT, Route to Pharmacy Electronically, [facility] #[id number], Partial fill upon patient request if the prescription is for a schedule... Start Date: 04/06/21 Status: Ordered levothyroxine 0.025 mg oral tablet 1 tablet, By Mouth, Daily, BUBBLE PACK PLEASE, # 90 tablet, 1 Refills, Maintenance, 02/14/21 7:27:00 EDT, Tablet, [facility] #[id number], 153, cm, 02/14/21 7:06:00 EDT, Height, 102.4, kg, 11/13/20 18:51:00 EDT, Dry Weight Start Date: 02/14/21 Stop Date: 08/13/21 Status: Ordered lisinopril 20 mg oral tablet 20 mg, 1, tablet, By Mouth, Daily, BUBBLE PACK PLEASE, # 90 tablet, Refills 1, Tot. Refills 1, Maintenance, 06/12/21 9:50:00 EDT, Route to Pharmacy Electronically, [facility] #[id number], 148.4,cm, 06/01/21 8:57:00 EDT, Height, 97.3, kg, ... Start Date: 06/12/21 Stop Date: 12/09/21 Status: Ordered LORazepam 1 mg oral tablet 1 tablet = 1 mg, By Mouth, Daily, PRN as needed for anxiety, covering provider, # 30 tablet, 0 Refills, Maintenance, 05/22/21 16:47:00 EDT, Tablet, [facility] #[id number], 148.4, cm, 02/16/21 15:09:00 EDT, Height, 97.6, kg, 02/15/21 17:00:00 EDT,... Start Date: 05/22/21 Stop Date: 06/21/21 Status: Ordered LORazepam 1 mg oral tablet 1 tablet = 1 mg, By Mouth, Daily, PRN as needed for anxiety, # 30 tablet, 0 Refills, Maintenance, 03/24/21 12:18:00 EDT, Tablet, [facility] #[id number], 148.4, cm, 02/16/21 15:09:00 EDT, Height,97.6, kg, [...] 3 Refills, Maintenance, 04/05/21 13:22:00 EDT, Tablet, [facility] #[id number], Part... Start Date: 04/05/21 Stop Date: 08/03/21 Status: Ordered nortriptyline 50 mg oral capsule 50 mg, 1, capsule, By Mouth, Daily, # 90 capsule, Refills 1, Tot. Refills 1, Maintenance, 02/14/21 7:26:00 EDT, Route to Pharmacy Electronically, [facility] #[id number], 153, cm, 02/14/21 7:06:00 EDT, Height, 102.4, kg, 11/13/20 18:51:00 EDT, Dry... Start Date: 02/14/21 Stop Date: 08/13/21 Status: Ordered omeprazole 20 mg oral enteric coated capsule 1 capsule = 20 mg, By Mouth, 2 times a day, BUBBLE PACK PLEASE, # 60 capsule, 3 Refills, Maintenance, 04/21/21 17:24:00 EDT, EC Capsule, [facility] #[id number], 148.4, cm, 02/16/21 15:09:00 EDT,Height, 97.6, kg, 02/15/21 17:00:00 EDT, Dry Weight Start Date: 04/21/21 Stop Date: 08/19/21 Status: Ordered ProAir HFA 90 mcg/inh inhalation aerosol 2 puffs, Inhalation, 4 times a day, PRN Wheezing/Shortness of Breath, # 2 each, 3 Refills, Maintenance, 11/08/20 17:08:00 EDT, Aerosol, [facility] #[id number], Partial fill upon patient request if the prescription is for a schedule II opioid drug... Start Date: 11/08/20 Stop Date: 03/08/21 Status: Ordered Singulair 10 mg oral tablet 10 mg, 1, tablet, By Mouth, Daily in PM, BUBBLE PACK PLEASE, # 30 tablet, Refills 5, Tot. Refills 5, Maintenance, 03/09/21 15:06:00 EDT, Route to Pharmacy Electronically, [facility] #[id number],148.4, cm, 02/16/21 15:09:00 EDT, Height, 97.6, kg,... Start Date: 03/09/21 Stop Date: 09/05/21 Status: Ordered umeclidinium 62.5 mcg/inh inhalation powder 1 inhalation = 62.5 mcg, Inhalation, Every 24 hours, doses should be taken at least 24 hours apart,# 30 each, 11 Refills, Maintenance, 01/06/21 14:47:00 EDT, Powder, [facility] #[id number], Partial fill upon patient request if the [...] Numbness and tingling in hands(Confirmed) Active *[facility] [phone] CARE MANAG ER HELEN ROWDY(Confirmed) Active Pulmonary [...]
--- OUTSIDE RECORDS SUMMARY | 2023-03-06 14:50 | XMS_ITS | Continuity of Care Document ---
Author Name Unknown Organization [facility] Address [address] [place] [id number]- Care Team Providers Care Staff Radiologist Name Role Phone Rj HAMILTON, Winsome Weiss Primary Care Physician Encounter [facility] R [id number] Date(s): 11/08/20 - 01/27/21 [facility] [address] [place] [id number] Attending Physician: Tolu Molina MD Admitting Physician: Tolu Molina MD Referring Physician: Winsome De La Rosa [...] [07/11/2018] [facility] 2Result Comment: [11/11/2015] given at [facility] [address] [place] [address] [phone] 3Result Comment: [07/11/2018] [facility] 4Location History: [facility] 5Admin Note: given at [facility] in [place], [place] 6Location History: [facility] 7Admin Note: boostrix [...] mL, 11 Refills, Maintenance, 01/06/21 14:51:00 EDT, [place], [facility] #[id number], Partial fill upon patient request if the prescriptionis for a schedule II opioid drug., 2 sprays Nares,... Start Date: 01/06/21 Status: Ordered Colace sodium 100 mg oral capsule 100 mg, 1, capsule, By Mouth, 2 times a day, BUBBLE PACK PLEASE, # 180 capsule, Refills 1, Tot. Refills 1, Maintenance, 11/08/20 17:06:00 EDT, Route to Pharmacy Electronically, [facility] #[id number], 152.4, cm, 11/07/20 7:59:00 EDT, Height, 100.... Start Date: 11/08/20 Stop Date: 05/07/21 Status: Ordered escitalopram 20 mg oral tablet 1 tablet = 20 mg, By Mouth, Daily, # 30 tablet, 5 Refills, Maintenance, 07/22/20 9:23:00 EST, Tablet, [facility] #[id number], 153, cm, 07/22/20 9:04:00 EST, Height, 106, kg, 07/08/20 13:49:00 EST, Dry Weight Start Date: 07/22/20 Stop Date: 01/18/21 Status: Ordered ferrous sulfate 325 mg oral enteric coated tablet 325 mg, 1, tablet, By Mouth, 2 times a day, may take with food to minimize abdominal discomfort, # 180 tablet, Refills 1, Tot. Refills 1, Maintenance, 10/04/20 16:08:00 EST, Route to Pharmacy Electronically, [facility] #[id number], 150, cm, 09/26... Start Date: 10/04/20 Stop Date: 04/02/21 Status: Ordered gabapentin 100 mg oral capsule 200 mg, 2, capsule, By Mouth, 3 times a day, # 180 capsule, Refills 3, Tot. Refills 3, Maintenance,12/27/20 11:32:00 EDT, Route to Pharmacy Electronically, [facility] #[id number], Partial fill upon patient request if the prescription is for a sc... Start Date: 12/27/20 Status: Ordered levothyroxine 0.025 mg oral tablet 1 tablet, By Mouth, Daily, BUBBLE PACK PLEASE, # 30 tablet, 5 Refills, Maintenance, 07/22/20 9:24:00 EST, Tablet, [facility] #[id number], 153, cm, 07/22/20 9:04:00 EST, Height, 106, kg, 07/08/2013:49:00 EST, Dry Weight Start Date: 07/22/20 Stop Date: 01/18/21 Status: Ordered lisinopril 20 mg oral tablet 20 mg, 1, tablet, By Mouth, Daily, BUBBLE PACK PLEASE, # 30 tablet, Refills 5, Tot. Refills 5, Maintenance, 12/15/20 9:29:00 EDT, Route to Pharmacy Electronically, [facility] #[id number], 153, cm, 11/29/20 15:11:00 EDT, Height, 102.4, kg, ... Start Date: 12/15/20 Stop Date: 06/13/21 Status: Ordered LORazepam 1 mg oral tablet 1 tablet = 1 mg, By Mouth, Daily, PRN as needed for anxiety, # 30 tablet, 0 Refills, Maintenance, 12/15/20 9:28:00 EDT, Tablet, [facility] #[id number], 153, cm, 11/29/20 15:11:00 EDT, Height, 102.4, [...] 03/25/20 19:21:00 EDT, Route to Pharmacy Electronically, [facility] #[id number], 149.9, cm, 03/07/20 10:17:00 EDT, Height, 103.8, kg, 07... Start Date: 03/25/20 Stop Date: 10/21/20 Status: Ordered omeprazole 20 mg oral enteric coated capsule 1 capsule = 20 mg, By Mouth, 2 times a day, for 30 days, BUBBLE PACK PLEASE, # 60 capsule, 3 Refills, Hard Stop 02/21/21 9:19:00 EDT, 10/24/20 9:19:00 EDT, EC Capsule, [facility] #[id number], 149.9, cm, 06/14/20 14:58:00 EST, Height, 101, kg, 10/... Start Date: 10/24/20 Stop Date: 02/21/21 Status: Ordered omeprazole 20 mg oral enteric coated capsule 1 capsule = 20 mg, By Mouth, 2 times a day, BUBBLE PACK PLEASE, # 60 capsule, 3 Refills, Maintenance, 12/22/20 9:44:00 EDT, EC Capsule, [facility] #[id number], 153, cm, 11/29/20 15:11:00 EDT, Height, 102.4, kg, 11/13/20 18:51:00 EDT, Dry Weight Start Date: 12/22/20 Stop Date: 04/21/21 Status: Ordered ProAir HFA 90 mcg/inh inhalation aerosol 2 puffs, Inhalation, 4 times a day, PRN Wheezing/Shortness of Breath, # 2 each, 3 Refills, Maintenance, 11/08/20 17:08:00 EDT, [place], [facility] #[id number], Partial fill upon patient request if the prescription is for a schedule II opioid drug... Start Date: 11/08/20 Stop Date: 03/08/21 Status: Ordered Singulair 10 mg oral tablet 10 mg, 1, tablet, By Mouth, Daily in PM, BUBBLE PACK PLEASE, # 30 tablet, Refills 5, Tot. Refills 5, Maintenance, 07/22/20 9:24:00 EST, Route to Pharmacy Electronically, [facility] #[id number], 153, cm, 07/22/20 9:04:00 EST, Height, 106, kg, 06/13... Start Date: 07/22/20 Stop Date: 01/18/21 Status: Ordered umeclidinium 62.5 mcg/inh inhalation powder 1 inhalation = 62.5 mcg, Inhalation, Every 24 hours, doses should be taken at least 24 hours apart,# 30 each, 11 Refills, Maintenance, 01/06/21 14:47:00 EDT, Powder, [facility] #[id number], Partial fill upon patient request if the [...] Active Numbness and tingling in hands(Confirmed) Active *[facility] [phone] CARE MANAG ER HELEN RENO(Confirmed) Active Pulmonary [...]
--- OUTSIDE RECORDS SUMMARY | 2023-03-06 14:50 | XMS_ITS | Continuity of Care Document ---
Author Name Unknown Organization [facility] Address [address] [place] [id number]- Care Team Providers Care Steam Heating Installer Name Role Phone Rj HAMILTON, Winsome Weiss Primary Care Physician Encounter [facility] Date(s): 11/09/21 - 01/31/22 [facility] [address] [place] [address]- Attending Physician: Godfrey Mondragon MD Admitting Physician: Godfrey oMndragon MD Referring Physician: Mignon LE, Kassi Allergies, Adverse Reactions, Alerts Substance Reaction Severity [...] 2Location History: [facility] 3Admin Note: given at [facility] in [place], [place] 4Result Comment: [07/11/2018] [facility] 5Result Comment: [11/11/2015] given at [facility] [address] [place] [address] [phone] 6Location History: [facility] 7Admin Note: [facility] vis [...] 01/19/22 19:16:00 EDT, Route to Pharmacy Electronically, [facility] #[id number], Partial fill upon patientrequest if the prescription is for a schedule II op... Start Date: 01/19/22 Status: Ordered escitalopram 20 mg oral tablet 1 tablet = 20 mg, By Mouth, Daily, # 90 tablet, 1 Refills, Maintenance, 11/29/21 7:27:00 EDT, Tablet, [facility] #[id number], 150, cm, 11/03/21 13:46:00 EDT, Height, 100.8, kg, 11/01/21 22:19:00EDT, Dry Weight Start Date: 11/29/21 Stop Date: 05/28/22 Status: Ordered furosemide 20 mg oral tablet 20 mg, 1, tablet, By Mouth, 2 times a day, # 180 tablet, Refills 1, Tot. Refills 1, Maintenance, 12/01/21 16:35:00 EDT, Route to Pharmacy Electronically, [facility] #[id number], Partial fill upon patient request if the prescription is for a sched... Start Date: 12/01/21 Stop Date: 05/30/22 Status: Ordered gabapentin 100 mg oral capsule 200 mg, 2, capsule, By Mouth, 3 times a day, 2 capsules to equal 200 mg three times a day., # 180 capsule, Refills 3, Tot. Refills 3, Maintenance, 12/05/21 20:30:00 EDT, Route to Pharmacy Electronically, [facility] #[id number], Partial fill upon... Start Date: 12/05/21 Status: [...] 04/06/21 12:52:00 EDT, Route to Pharmacy Electronically, [facility] #[id number], Partial fill upon patient request if the prescription is for a schedule... Start Date: 04/06/21 Status: Ordered Lantus Solostar Pen 100 units/mL subcutaneous solution = 15 units, Subcutaneous Infusion, Daily, with evening meal, # 15 mL, 3 Refills, Maintenance, 11/29/21 21:45:00 EDT, [facility] #[id number], Partial fill upon patient request if the prescriptionis for a schedule II opioid drug., 150, cm, ... Start Date: 11/29/21 Status: Ordered levothyroxine 0.025 mg oral tablet 1 tablet, By Mouth, Daily, # 90 tablet, 1 Refills, Maintenance, 11/29/21 7:27:00 EDT, Tablet, [facility] #[id number], 150, cm, 11/03/21 13:46:00 EDT, Height, 100.8, [...] 3 Refills, Maintenance, 04/05/21 13:22:00 EDT, Tablet, [facility] #[id number], Part... Start Date: 04/05/21 Stop Date: 08/03/21 Status: Ordered NovoLOG FlexPen 100 units/mL injectable solution See Instructions, Subcutaneous Infusion 3 times a day before meals. Sliding scale:: 150-200 2 [id number] 4 UNITS 300-350 6 UNITS, # 3 mL, 3 Refills, Maintenance, 12/01/21 11:54:00 EDT, [facility] #[id number], Partial fill upon patient requ... Start Date: [...] 01/19/22 13:52:00 EDT, Route to Pharmacy Electronically, [facility] #[id number], Partial fill upon patient request... Start Date: [...] 10/14/21 18:18:00 EST, Route to Pharmacy Electronically, [facility] #[id number],148.4, cm, 10/05/21 10:50:00 EST, Height, 104.5, kg... Start Date: 10/14/21 Stop Date: 04/12/22 Status: Ordered spironolactone 100 mg oral tablet 100 mg, 1, tablet, By Mouth, Daily, # 90 tablet, Refills 1, Tot. Refills 1, Maintenance, 12/01/21 16:34:00 EDT, Route to Pharmacy Electronically, [facility] #[id number], Partial fill upon patient request if the prescription is for a schedule II o... Start Date: 12/01/21 Stop Date: 05/30/22 Status: Ordered Tylenol 325 mg oral tablet 650 mg, 2, tablet, By Mouth, Every 6 hours, PRN, JHONSON, fever, Refills 0, Maintenance, Pain , Mild, 12/22/21 11:12:00 EDT, Partial fill upon patient request if the prescription is for a schedule II opioid drug. Start Date: 12/22/21 Status: Ordered umeclidinium 62.5 mcg/inh inhalation powder 1 inhalation = 62.5 mcg, Inhalation, Every 24 hours, doses should be taken at least 24 hours apart,# 30 each, 11 Refills, Maintenance, 01/06/21 14:47:00 EDT, Powder, [facility] #[id number], Partial fill upon patient request if the [...] tingling in hands(Confirmed) Active *[facility] [phone] CARE MANAG ER HELEN RENO(Confirmed) Active Hepatitis [...]
--- OUTSIDE RECORDS SUMMARY | 2023-03-06 14:51 | XMS_ITS | Continuity of Care Document ---
Author Name Unknown Organization [facility] Address [address] [place] [address]- Care Team Providers Care Hand Tube Bender Name Role Phone Rj FRONT DESK MANAGER, Winsome Weiss Primary Care Physician Encounter [facility] Date(s): 12/09/20 - 01/08/21 [facility] [address] [place] [address]- Allergies, Adverse Reactions, Alerts Substance Reaction Severity [...] [07/11/2018] [facility] 2Result Comment: [11/11/2015] given at [facility] [address] [place] [address] 3Result Comment: [07/11/2018] [facility] 4Location History: [facility] 5Admin Note: given at [facility] in [place], [place] 6Location History: [facility] 7Admin Note: boostrix [...] mL, 11 Refills, Maintenance, 01/06/21 14:51:00 EDT, [place], [facility] #[id number], Partial fill upon patient request if the prescriptionis for a schedule II opioid drug., 2 sprays Nares,... Start Date: 01/06/21 Status: Ordered Colace sodium 100 mg oral capsule 100 mg, 1, capsule, By Mouth, 2 times a day, BUBBLE PACK PLEASE, # 180 capsule, Refills 1, Tot. Refills 1, Maintenance, 11/08/20 17:06:00 EDT, Route to Pharmacy Electronically, [facility] #[id number], 152.4, cm, 11/07/20 7:59:00 EDT, Height, 100.... Start Date: 11/08/20 Stop Date: 05/07/21 Status: Ordered escitalopram 20 mg oral tablet 1 tablet = 20 mg, By Mouth, Daily, # 30 tablet, 5 Refills, Maintenance, 07/22/20 9:23:00 EST, Tablet, [facility] #25015, 153, cm, 07/22/20 9:04:00 EST, Height, 106, kg, 07/08/20 13:49:00 EST, Dry Weight Start Date: 07/22/20 Stop Date: 01/18/21 Status: Ordered ferrous sulfate 325 mg oral enteric coated tablet 325 mg, 1, tablet, By Mouth, 2 times a day, may take with food to minimize abdominal discomfort, # 180 tablet, Refills 1, Tot. Refills 1, Maintenance, 10/04/20 16:08:00 EST, Route to Pharmacy Electronically, [facility] #[id number], 150, cm, 09/26... Start Date: 10/04/20 Stop Date: 04/02/21 Status: Ordered gabapentin 100 mg oral capsule 200 mg, 2, capsule, By Mouth, 3 times a day, # 180 capsule, Refills 3, Tot. Refills 3, Maintenance,12/27/20 11:32:00 EDT, Route to Pharmacy Electronically, [facility] #[id number], Partial fill upon patient request if the prescription is for a sc... Start Date: 12/27/20 Status: Ordered levothyroxine 0.025 mg oral tablet 1 tablet, By Mouth, Daily, BUBBLE PACK PLEASE, # 30 tablet, 5 Refills, Maintenance, 07/22/20 9:24:00 EST, Tablet, [facility] #[id number], 153, cm, 07/22/20 9:04:00 EST, Height, 106, kg, 07/08/2013:49:00 EST, Dry Weight Start Date: 07/22/20 Stop Date: 01/18/21 Status: Ordered lisinopril 20 mg oral tablet 20 mg, 1, tablet, By Mouth, Daily, BUBBLE PACK PLEASE, # 30 tablet, Refills 5, Tot. Refills 5, Maintenance, 12/15/20 9:29:00 EDT, Route to Pharmacy Electronically, [facility] #[id number], 153, cm, 11/29/20 15:11:00 EDT, Height, 102.4, kg, ... Start Date: 12/15/20 Stop Date: 06/13/21 Status: Ordered LORazepam 1 mg oral tablet 1 tablet = 1 mg, By Mouth, Daily, PRN as needed for anxiety, # 30 tablet, 0 Refills, Maintenance, 12/15/20 9:28:00 EDT, Tablet, [facility] #[id number], 153, cm, 11/29/20 15:11:00 EDT, Height, 102.4, [...] 03/25/20 19:21:00 EDT, Route to Pharmacy Electronically, [facility] #[id number], 149.9, cm, 03/07/20 10:17:00 EDT, Height, 103.8, kg, 07... Start Date: 03/25/20 Stop Date: 10/21/20 Status: Ordered omeprazole 20 mg oral enteric coated capsule 1 capsule = 20 mg, By Mouth, 2 times a day, for 30 days, BUBBLE PACK PLEASE, # 60 capsule, 3 Refills, Hard Stop 02/21/21 9:19:00 EDT, 10/24/20 9:19:00 EDT, EC Capsule, [facility] #[id number], 149.9, cm, 06/14/20 14:58:00 EST, Height, 101, kg, 10/... Start Date: 10/24/20 Stop Date: 02/21/21 Status: Ordered omeprazole 20 mg oral enteric coated capsule 1 capsule = 20 mg, By Mouth, 2 times a day, BUBBLE PACK PLEASE, # 60 capsule, 3 Refills, Maintenance, 12/22/20 9:44:00 EDT, EC Capsule, [facility] #[id number], 153, cm, 11/29/20 15:11:00 EDT, Height, 102.4, kg, 11/13/20 18:51:00 EDT, Dry Weight Start Date: 12/22/20 Stop Date: 04/21/21 Status: Ordered predniSONE 20 mg oral tablet 2 tablet = 40 mg, By Mouth, Daily, for 5 days, # 10 each, 0 Refills, Acute 01/11/21 14:48:00 EDT, 01/06/21 14:48:00 EDT, Tablet, [facility] #81706, Partial fill upon patient request if the prescription is for a schedule II opioid drug., 153,... Start Date: 01/06/21 Stop Date: 01/11/21 Status: Ordered ProAir HFA 90 mcg/inh inhalation aerosol 2 puffs, Inhalation, 4 times a day, PRN Wheezing/Shortness of Breath, # 2 each, 3 Refills, Maintenance, 11/08/20 17:08:00 EDT, Aerosol, [facility] #[id number], Partial fill upon patient request if the prescription is for a schedule II opioid drug... Start Date: 11/08/20 Stop Date: 03/08/21 Status: Ordered Singulair 10 mg oral tablet 10 mg, 1, tablet, By Mouth, Daily in PM, BUBBLE PACK PLEASE, # 30 tablet, Refills 5, Tot. Refills 5, Maintenance, 07/22/20 9:24:00 EST, Route to Pharmacy Electronically, [facility] #[id number], 153, cm, 07/22/20 9:04:00 EST, Height, 106, kg, 06/13... Start Date: 07/22/20 Stop Date: 01/18/21 Status: Ordered umeclidinium 62.5 mcg/inh inhalation powder 1 inhalation = 62.5 mcg, Inhalation, Every 24 hours, doses should be taken at least 24 hours apart,# 30 each, 11 Refills, Maintenance, 01/06/21 14:47:00 EDT, Powder, [facility] #[id number], Partial fill upon patient request if the [...] in hands(Confirmed) Active *[facility] [phone] CARE MANAG ER HELENLUCITA RENO(Confirmed) Active Pulmonary edema(Confirmed) Active Rib pain [...]
--- OUTSIDE RECORDS SUMMARY | 2023-03-06 14:51 | XMS_ITS | Continuity of Care Document ---
Author Name Unknown Organization [facility] Address [address] [place] [address]- Care Team Providers Care Edge Inker Uppers Name Role Phone Rj FENCE LABORER, Winsome Weiss Primary Care Physician Encounter [facility] Date(s): 09/08/21 - 10/08/[address] [address] Allergies, Adverse Reactions, Alerts Substance [...] 2Location History: [facility] 3Admin Note: given at [facility] in [place], [place] 4Result Comment: [07/11/2018] [facility] 5Result Comment: [11/11/2015] given at [facility] [address] [place] [address] [phone] 6Location History: [facility] 7Admin Note: [facility] vis [...] Replace Required Details, Route to Pharmacy Electronically, [facility]... Start Date: 08/30/21 Status: Ordered escitalopram 20 mg oral tablet 1 tablet = 20 mg, By Mouth, Daily, # 90 tablet, 1 Refills, Maintenance, 07/12/21 7:37:00 EST, Tablet, [facility] #[id number], 148.4, cm, 06/01/21 8:57:00 EDT, Height, 97.3, [...] Maintenance,12/27/20 11:32:00 EDT, Route to Pharmacy Electronically, [facility] #[id number], Partial fill upon patient request if the prescription is for a sc... Start Date: 12/27/20 Status: Ordered isosorbide mononitrate 30 mg oral tablet, extended release 30 mg, 1, tablet, By Mouth, Daily in AM, # 30 tablet, Refills 3, Tot. Refills 3, Maintenance, 04/05/21 13:22:00 EDT, Route to Pharmacy Electronically, [facility] #[id number], Partial fill upon patient request if the prescription is for a schedule... Start Date: 04/05/21 Stop Date: 08/03/21 Status: Ordered isosorbide mononitrate 30 mg oral tablet, extended release 30 mg, 1, tablet, By Mouth, Daily in AM, # 30 tablet, Refills 3, Tot. Refills 3, Maintenance, 04/06/21 12:52:00 EDT, Route to Pharmacy Electronically, [facility] #[id number], Partial fill upon patient request if the prescription is for a schedule... Start Date: 04/06/21 Status: Ordered levothyroxine 0.025 mg oral tablet 1 tablet, By Mouth, Daily, BUBBLE PACK PLEASE, # 90 tablet, 1 Refills, Maintenance, 07/12/21 7:38:00 EST, Tablet, [facility] #[id number], 148.4, cm, 06/01/21 8:57:00 EDT, Height, 97.3, kg, 06/01/21 8:57:00 EDT, Dry Weight Start Date: 07/12/21 Stop Date: 01/08/22 Status: Ordered lisinopril 20 mg oral tablet 20 mg, 1, tablet, By Mouth, Daily, BUBBLE PACK PLEASE, # 90 tablet, Refills 1, Tot. Refills 1, Maintenance, 08/30/21 12:48:00 EST, Route to Pharmacy Electronically, [facility] #[id number], 148.4, cm, 08/15/21 9:27:00 EST, Height, 97.3, kg, 06/01/... Start Date: 08/30/21 Stop Date: 02/26/22 Status: Ordered LORazepam 1 mg oral tablet 1 tablet = 1 mg, By Mouth, Daily, PRN as needed for anxiety, covering provider, # 30 tablet, 0 Refills, Maintenance, 08/08/21 17:07:00 EST, Tablet, [facility] #[id number], 148.4, cm, 06/01/21 8:57:00 EDT, Height, 97.3, kg, 06/01/21 8:57:00 EDT, D... Start Date: 08/08/21 Stop Date: 09/07/21 Status: Ordered LORazepam 1 mg oral tablet 1 tablet = 1 mg, By Mouth, Daily, PRN as needed for anxiety, # 30 tablet, 0 Refills, Maintenance, 03/24/21 12:18:00 EDT, Tablet, [facility] #[id number], 148.4, cm, 02/16/21 15:09:00 EDT, Height,97.6, kg, 02/15/21 17:00:00 EDT, Dry Weight Start Date: 03/24/21 Stop Date: 04/23/21 Status: Ordered metoprolol 25 mg oral tablet, extended release 25 mg, 1, tablet, By Mouth, Daily, # 90 tablet, Refills 3, Tot. Refills 3, Maintenance, 10/03/21 16:04:00 EST, Route to Pharmacy Electronically, [facility] #[id number], Partial fill upon patientrequest if the prescription is for a schedule II op... Start Date: 10/03/21 Status: Ordered nitroglycerin 0.4 mg sublingual tablet 1 tablet = 0.4 mg, Sublingual, Every 5 minutes, PRN as needed for chest pain, not to exceed 3 doses/15 min--if pain persists, seek medical attention, # 30 tablet, 3 Refills, Maintenance, 04/05/21 13:22:00 EDT, Tablet, [facility] #[id number], Part... Start Date: 04/05/21 Stop Date: 08/03/21 Status: Ordered nortriptyline 50 mg oral capsule 50 mg, 1, capsule, By Mouth, Daily, # 90 capsule, Refills 1, Tot. Refills 1, Maintenance, 07/12/21 7:37:00 EST, Route to Pharmacy Electronically, [facility] #[id number], 148.4, cm, 06/01/21 8:57:00 EDT, Height, 97.3, kg, 06/01/21 8:57:00 EDT, Dry... Start Date: 07/12/21 Stop Date: 01/08/22 Status: Ordered omeprazole 20 mg oral enteric coated capsule 1 capsule = 20 mg, By Mouth, 2 times a day, BUBBLE PACK PLEASE, # 60 capsule, 3 Refills, Maintenance, 08/24/21 9:30:00 EST, EC Capsule, [facility] #[id number], 148.4, cm, 08/15/21 9:27:00 EST, Height, 97.3, kg, 06/01/21 8:57:00 EDT, Dry Weight Start Date: 08/24/21 Stop Date: 12/22/21 Status: Ordered ProAir HFA 90 mcg/inh inhalation aerosol 2 puffs, Inhalation, 4 times a day, PRN Wheezing/Shortness of Breath, # 2 each, 3 Refills, Maintenance, 11/08/20 17:08:00 EDT, Aerosol, [facility] #54004, Partial fill upon patient request if the prescription is for a schedule II opioid drug... Start Date: 11/08/20 Stop Date: 03/08/21 Status: Ordered Singulair 10 mg oral tablet 10 mg, 1, tablet, By Mouth, Daily in PM, BUBBLE PACK PLEASE, # 30 tablet, Refills 5, Tot. Refills 5, Maintenance, 03/09/21 15:06:00 EDT, Route to Pharmacy Electronically, [facility] #[id number],148.4, cm, 02/16/21 15:09:00 EDT, Height, 97.6, kg,... Start Date: 03/09/21 Stop Date: 09/05/21 Status: Ordered trospium 60 mg oral capsule, extended release 1 capsule = 60 mg, By Mouth, Daily, # 30 capsule, 5 Refills, Maintenance, 09/29/21 15:29:00 EST, CRCapsule, [facility] #[id number], Partial fill upon patient request if the prescription is for a schedule II opioid drug., 148.4, cm, 08/15/21 9:27... Start Date: 09/29/21 Status: Ordered umeclidinium 62.5 mcg/inh inhalation powder 1 inhalation = 62.5 mcg, Inhalation, Every 24 hours, doses should be taken at least 24 hours apart,# 30 each, 11 Refills, Maintenance, 01/06/21 14:47:00 EDT, Powder, [facility] #57683, Partial fill upon patient request if the [...] tingling in hands(Confirmed) Active *[facility] [phone] CARE MANAG ER HELNE ROWDY(Confirmed) Active Pulmonary edema(Confirmed) Active Rib pain [...]
--- OUTSIDE RECORDS SUMMARY | 2023-03-06 14:51 | XMS_ITS | Continuity of Care Document ---
Author Name Unknown Organization [facility] Address [address] [place] [address]- Care Team Providers Care Prepress Manager Name Role Phone Rj MIXER AND BLENDER, Winsome M Primary Care Physician [phone] Encounter [facility] Date(s): 01/01/22 - 01/31/22 [facility] [address] [place] [address] Allergies, Adverse Reactions, Alerts Substance Reaction [...] 2Location History: [facility] 3Admin Note: given at [facility] in [place], [place] 4Result Comment: [07/11/2018] [facility] 5Result Comment: [11/11/2015] given at [facility] [address] [place] [address] [phone] [facility] 7Admin Note: boostrix vis 12-28-2012 Medications [...] 01/19/22 19:16:00 EDT, Route to Pharmacy Electronically, [facility] #[id number], Partial fill upon patientrequest if the prescription is for a schedule II op... Start Date: 01/19/22 Status: Ordered escitalopram 20 mg oral tablet 1 tablet = 20 mg, By Mouth, Daily, # 90 tablet, 1 Refills, Maintenance, 11/29/21 7:27:00 EDT, Tablet, [facility] #[id number], 150, cm, 11/03/21 13:46:00 EDT, Height, 100.8, kg, 11/01/21 22:19:00EDT, Dry Weight Start Date: 11/29/21 Stop Date: 05/28/22 Status: Ordered furosemide 20 mg oral tablet 20 mg, 1, tablet, By Mouth, 2 times a day, # 180 tablet, Refills 1, Tot. Refills 1, Maintenance, 12/01/21 16:35:00 EDT, Route to Pharmacy Electronically, [facility] #[id number], Partial fill upon patient request if the prescription is for a sched... Start Date: 12/01/21 Stop Date: 05/30/22 Status: Ordered gabapentin 100 mg oral capsule 200 mg, 2, capsule, By Mouth, 3 times a day, 2 capsules to equal 200 mg three times a day., # 180 capsule, Refills 3, Tot. Refills 3, Maintenance, 12/05/21 20:30:00 EDT, Route to Pharmacy Electronically, [facility] #[id number], Partial fill upon... Start Date: 12/05/21 Status: [...] 04/06/21 12:52:00 EDT, Route to Pharmacy Electronically, [facility] #[id number], Partial fill upon patient request if the prescription is for a schedule... Start Date: 04/06/21 Status: Ordered Lantus Solostar Pen 100 units/mL subcutaneous solution = 15 units, Subcutaneous Infusion, Daily, with evening meal, # 15 mL, 3 Refills, Maintenance, 11/29/21 21:45:00 EDT, [facility] #[id number], Partial fill upon patient request if the prescriptionis for a schedule II opioid drug., 150, cm, ... Start Date: 11/29/21 Status: Ordered levothyroxine 0.025 mg oral tablet 1 tablet, By Mouth, Daily, # 90 tablet, 1 Refills, Maintenance, 11/29/21 7:27:00 EDT, Tablet, [facility] #46505, 150, cm, 11/03/21 13:46:00 EDT, Height, 100.8, [...] 3 Refills, Maintenance, 04/05/21 13:22:00 EDT, Tablet, [facility] #[id number], Part... Start Date: 04/05/21 Stop Date: 08/03/21 Status: Ordered NovoLOG FlexPen 100 units/mL injectable solution See Instructions, Subcutaneous Infusion 3 times a day before meals. Sliding scale:: 150-200 2 [id number] 4 UNITS 300-350 6 UNITS, # 3 mL, 3 Refills, Maintenance, 12/01/21 11:54:00 EDT, [facility] #[id number], Partial fill upon patient requ... Start Date: [...] 01/19/22 13:52:00 EDT, Route to Pharmacy Electronically, [facility] #[id number], Partial fill upon patient request... Start Date: [...] 10/14/21 18:18:00 EST, Route to Pharmacy Electronically, [facility] #65521,148.4, cm, 10/05/21 10:50:00 EST, Height, 104.5, kg... Start Date: 10/14/21 Stop Date: 04/12/22 Status: Ordered spironolactone 100 mg oral tablet 100 mg, 1, tablet, By Mouth, Daily, # 90 tablet, Refills 1, Tot. Refills 1, Maintenance, 12/01/21 16:34:00 EDT, Route to Pharmacy Electronically, [facility] #[id number], Partial fill upon patient request if the [...] 11 Refills, Maintenance, 01/06/21 14:47:00 EDT, Powder, [facility] #[id number], Partial fill upon patient request if the [...] Numbness and tingling in hands(Confirmed) Active *[facility] [phone] CARE MANAG ER HELEN RENO(Confirmed) Active Hepatitis [...]
--- OUTSIDE RECORDS SUMMARY | 2023-03-06 14:51 | XMS_ITS | Continuity of Care Document ---
Author Name Unknown Organization [facility] Address [address] [place] [address]- Care Team Providers Care Wax Pattern Repairer Name Role Phone Rj INVESTMENT CONSULTANT, Winsome Weiss Primary Care Physician Encounter [facility] Date(s): 07/07/21 - 08/06/21 [facility] [address] [address]- Allergies, Adverse Reactions, Alerts Substance Reaction Severity [...] [07/11/2018] [facility] 2Result Comment: [11/11/2015] given at [facility] [address] [place], [place] [id number] 3Result Comment: [07/11/2018] [facility] 5Admin Note: given at [facility] in [place], [place] 6Location History: [facility] 7Admin Note: boostrix [...] mL, 11 Refills, Maintenance, 01/06/21 14:51:00 EDT, Wade, [facility] #[id number], Partial fill upon patient request if the prescriptionis for a schedule II opioid drug., 2 sprays Nares,... Start Date: 01/06/21 Status: Ordered dicyclomine 10 mg oral capsule 1 capsule = 10 mg, By Mouth, 4 times a day, PRN Pain , Moderate, # 28 capsule, 0 Refills, Maintenance, 05/11/21 15:51:00 EDT, Capsule, [facility] #[id number], Partial fill upon patient request if the prescription is for a schedule II opioid drug.... Start Date: 05/11/21 Stop Date: 05/18/21 Status: Ordered escitalopram 20 mg oral tablet 1 tablet = 20 mg, By Mouth, Daily, # 90 tablet, 1 Refills, Maintenance, 07/12/21 7:37:00 EST, Tablet, [facility] #[id number], 148.4, cm, 06/01/21 8:57:00 EDT, Height, 97.3, kg, 06/01/21 8:57:00 EDT, Dry Weight Start Date: 07/12/21 Stop Date: 01/08/22 Status: Ordered ferrous sulfate 325 mg oral enteric coated tablet 325 mg, 1, tablet, By Mouth, 2 times a day, may take with food to minimize abdominal discomfort, # 180 tablet, Refills 1, Tot. Refills 1, Maintenance, 07/12/21 7:38:00 EST, Route to Pharmacy Electronically, [facility] #80730, 148.4, cm, 05/13... Start Date: 07/12/21 Stop [...] Maintenance,12/27/20 11:32:00 EDT, Route to Pharmacy Electronically, [facility] #88569, Partial fill upon patient request if the prescription is for a sc... Start Date: 12/27/20 Status: Ordered isosorbide mononitrate 30 mg oral tablet, extended release 30 mg, 1, tablet, By Mouth, Daily in AM, # 30 tablet, Refills 3, Tot. Refills 3, Maintenance, 04/05/21 13:22:00 EDT, Route to Pharmacy Electronically, [facility] #[id number], Partial fill upon patient request if the prescription is for a schedule... Start Date: 04/05/21 Stop Date: 08/03/21 Status: Ordered isosorbide mononitrate 30 mg oral tablet, extended release 30 mg, 1, tablet, By Mouth, Daily in AM, # 30 tablet, Refills 3, Tot. Refills 3, Maintenance, 04/06/21 12:52:00 EDT, Route to Pharmacy Electronically, [facility] #43510, Partial fill upon patient request if the prescription is for a schedule... Start Date: 04/06/21 Status: Ordered levothyroxine 0.025 mg oral tablet 1 tablet, By Mouth, Daily, BUBBLE PACK PLEASE, # 90 tablet, 1 Refills, Maintenance, 07/12/21 7:38:00 EST, Tablet, [facility] #21009, 148.4, cm, 06/01/21 8:57:00 EDT, Height, 97.3, kg, 06/01/21 8:57:00 EDT, Dry Weight Start Date: 07/12/21 Stop Date: 01/08/22 Status: Ordered lisinopril 20 mg oral tablet 20 mg, 1, tablet, By Mouth, Daily, BUBBLE PACK PLEASE, # 90 tablet, Refills 1, Tot. Refills 1, Maintenance, 06/12/21 9:50:00 EDT, Route to Pharmacy Electronically, [facility] #39122, 148.4,cm, 06/01/21 8:57:00 EDT, Height, 97.3, kg, 2... Start Date: 06/12/21 Stop Date: 12/09/21 Status: Ordered LORazepam 1 mg oral tablet 1 tablet = 1 mg, By Mouth, Daily, PRN as needed for anxiety, covering provider, # 30 tablet, 0 Refills, Maintenance, 05/22/21 16:47:00 EDT, Tablet, [facility] #82512, 148.4, cm, 02/16/21 15:09:00 EDT, Height, 97.6, kg, 02/15/21 17:00:00 EDT,... Start Date: 05/22/21 Stop Date: 06/21/21 Status: Ordered LORazepam 1 mg oral tablet 1 tablet = 1 mg, By Mouth, Daily, PRN as needed for anxiety, # 30 tablet, 0 Refills, Maintenance, 03/24/21 12:18:00 EDT, Tablet, [facility] #[id number], 148.4, cm, 02/16/21 15:09:00 EDT, Height,97.6, kg, [...] 3 Refills, Maintenance, 04/05/21 13:22:00 EDT, Tablet, [facility] #41641, Part... Start Date: 04/05/21 Stop Date: 08/03/21 Status: Ordered nortriptyline 50 mg oral capsule 50 mg, 1, capsule, By Mouth, Daily, # 90 capsule, Refills 1, Tot. Refills 1, Maintenance, 07/12/21 7:37:00 EST, Route to Pharmacy Electronically, [facility] #[id number], 148.4, cm, 06/01/21 8:57:00 EDT, Height, 97.3, kg, 06/01/21 8:57:00 EDT, Dry... Start Date: 07/12/21 Stop Date: 01/08/22 Status: Ordered omeprazole 20 mg oral enteric coated capsule 1 capsule = 20 mg, By Mouth, 2 times a day, BUBBLE PACK PLEASE, # 60 capsule, 3 Refills, Maintenance, 04/21/21 17:24:00 EDT, EC Capsule, [facility] #[id number], 148.4, cm, 02/16/21 15:09:00 EDT,Height, 97.6, kg, 02/15/21 17:00:00 EDT, Dry Weight Start Date: 04/21/21 Stop Date: 08/19/21 Status: Ordered ProAir HFA 90 mcg/inh inhalation aerosol 2 puffs, Inhalation, 4 times a day, PRN Wheezing/Shortness of Breath, # 2 each, 3 Refills, Maintenance, 11/08/20 17:08:00 EDT, Aerosol, [facility] #02357, Partial fill upon patient request if the prescription is for a schedule II opioid drug... Start Date: 11/08/20 Stop Date: 03/08/21 Status: Ordered Singulair 10 mg oral tablet 10 mg, 1, tablet, By Mouth, Daily in PM, BUBBLE PACK PLEASE, # 30 tablet, Refills 5, Tot. Refills 5, Maintenance, 03/09/21 15:06:00 EDT, Route to Pharmacy Electronically, [facility] #[id number],148.4, cm, 02/16/21 15:09:00 EDT, Height, 97.6, kg,... Start Date: 03/09/21 Stop Date: 09/05/21 Status: Ordered umeclidinium 62.5 mcg/inh inhalation powder 1 inhalation = 62.5 mcg, Inhalation, Every 24 hours, doses should be taken at least 24 hours apart,# 30 each, 11 Refills, Maintenance, 01/06/21 14:47:00 EDT, Powder, [facility] #[id number], Partial fill upon patient request if the [...] *[facility] [phone] CARE MANAG ER HELEN ROWDY(Confirmed) Active Pulmonary [...]
--- OUTSIDE RECORDS SUMMARY | 2023-03-06 14:51 | XMS_ITS | Continuity of Care Document ---
Author Name Unknown Organization [facility] Address [address] [place] [address]- Care Team Providers Care Girls Swimming Coach Name Role Phone Rj MARINE SURVEYOR, Wnisome Weiss Primary Care Physician [phone] Encounter [facility] Date(s): 03/14/22 - 04/13/22 [facility] [address] [place] [address]- Allergies, Adverse Reactions, Alerts Substance Reaction Severity [...] 2[facility] 3Admin Note: given at [facility] in [place] 4Result Comment: [07/11/2018] [facility] 5Result Comment: [11/11/2015] given at [facility] [address] [place] [address] [phone] 6Location History[facility] 7Admin Note: boostrix vis 12-28-2012 Medications Breo Ellipta 200 mcg-25 mcg/inh inhalation powder 1 puffs, Inhalation, Daily, # 1 each, 11 Refills, Maintenance, 12/20/21 15:11:00 EDT, Powder, [facility] #[id number], Partial fill upon patient request if the [...] 01/19/22 19:16:00 EDT, Route to Pharmacy Electronically, [facility] #[id number], Partial fill upon patientrequest if the prescription is for a schedule II op... Start Date: 01/19/22 Status: Ordered docusate sodium 100 mg oral capsule TAKE 1 CAPSULE BY MOUTH TWICE DAILY NEEDED FOR CONSTIPATION Start Date: 02/20/22 Status: Ordered escitalopram 20 mg oral tablet 1 tablet = 20 mg, By Mouth, Daily, # 90 tablet, 1 Refills, Maintenance, 11/29/21 7:27:00 EDT, Tablet, [facility] #[id number], 150, cm, 11/03/21 13:46:00 EDT, Height, 100.8, [...] 12/01/21 16:35:00 EDT, Route to Pharmacy Electronically, [facility] #[id number], Partial fill upon patient request if the prescription is for a sched... Start Date: 12/01/21 Stop Date: 05/30/22 Status: Ordered gabapentin 100 mg oral capsule 200 mg, 2, capsule, By Mouth, 3 times a day, 2 capsules to equal 200 mg three times a day., # 180 capsule, Refills 3, Tot. Refills 3, Maintenance, 12/05/21 20:30:00 EDT, Route to Pharmacy Electronically, [facility] #[id number], Partial fill upon... Start Date: 12/05/21 Status: [...] mL, 3 Refills, Maintenance, 11/29/21 21:45:00 EDT, [facility] #[id number], Partial fill upon patient request if the prescriptionis for a schedule II opioid drug., 150, cm, ... Start Date: 11/29/21 Status: Ordered levothyroxine 0.025 mg oral tablet 1 tablet, By Mouth, Daily, # 90 tablet, 1 Refills, Maintenance, 11/29/21 7:27:00 EDT, Tablet, [facility] #63766, 150, cm, 11/03/21 13:46:00 EDT, Height, 100.8, [...] 0 Refills, Maintenance, 03/01/22 11:00:00 EDT, Tablet, [facility], Partial fill upon patient request [...] 3 Refills, Maintenance, 04/05/21 13:22:00 EDT, Tablet, [facility] #[id number], Part... Start Date: 04/05/21 Stop Date: 08/03/21 Status: Ordered NovoLOG FlexPen 100 units/mL injectable solution See Instructions, Subcutaneous Infusion 3 times a day before meals. Sliding scale:: 150-200 2 [id number] 4 UNITS 300-350 6 UNITS, # 3 mL, 3 Refills, Maintenance, 12/01/21 11:54:00 EDT, [facility] #[id number], Partial fill upon patient requ... Start Date: [...] 01/19/22 13:52:00 EDT, Route to Pharmacy Electronically, [facility] #[id number], Partial fill upon patient request... Start Date: [...] 10/14/21 18:18:00 EST, Route to Pharmacy Electronically, [facility] #[id number],148.4, cm, 10/05/21 10:50:00 EST, Height, 104.5, kg... Start Date: 10/14/21 Stop Date: 04/12/22 Status: Ordered trospium 60 mg oral capsule, extended release 1 capsule = 60 mg, By Mouth, Daily in AM, # 90 capsule, 0 Refills, Maintenance, 04/04/22 8:37:00 EDT, [facility] #26571, Partial fill upon patient request if the [...] 11 Refills, Maintenance, 03/15/22 10:32:00 EDT, Powder, [facility] #72189, Partial fill upon patient request if the [...] Active Numbness and tingling in hands(Confirmed) Active *[facility] [phone] CARE MANAG ER HELEN RENO(Confirmed) Active Hepatitis [...] Winsome De La Rosa NP Address: [address] [place] [id number]
--- OUTSIDE RECORDS SUMMARY | 2023-03-06 14:51 | XMS_ITS | Continuity of Care Document ---
Author Name Unknown Organization [facility] Address [address] [place] [address], [address] [place] [address]- Care Team Providers Care Professor Of Psychology Name Role Phone Rj INSPECTOR PLUG SEAM, Winsome Weiss Primary Care Physician [phone] Encounter [facility] Date(s): 01/29/22 - 02/05/[address], [address] [place] [address]- Attending Physician: Not on Staff, Attending MD [...] 2Location History[facility] 3Admin Note: given at [facility] in [place] 4Result Comment: [07/11/2018] [facility] 5Result Comment: [11/11/2015] given at [facility] [address] [place] [address] [phone] 6Location History: [facility] 7Admin Note: boostrix vis [...] 01/19/22 19:16:00 EDT, Route to Pharmacy Electronically, [facility] #[id number], Partial fill upon patientrequest if the prescription is for a schedule II op... Start Date: 01/19/22 Status: Ordered escitalopram 20 mg oral tablet 1 tablet = 20 mg, By Mouth, Daily, # 90 tablet, 1 Refills, Maintenance, 11/29/21 7:27:00 EDT, Tablet, [facility] #[id number], 150, cm, 11/03/21 13:46:00 EDT, Height, 100.8, kg, 11/01/21 22:19:00EDT, Dry Weight Start Date: 11/29/21 Stop Date: 05/28/22 Status: Ordered furosemide 20 mg oral tablet 20 mg, 1, tablet, By Mouth, 2 times a day, # 180 tablet, Refills 1, Tot. Refills 1, Maintenance, 12/01/21 16:35:00 EDT, Route to Pharmacy Electronically, [facility] #[id number], Partial fill upon patient request if the prescription is for a sched... Start Date: 12/01/21 Stop Date: 05/30/22 Status: Ordered gabapentin 100 mg oral capsule 200 mg, 2, capsule, By Mouth, 3 times a day, 2 capsules to equal 200 mg three times a day., # 180 capsule, Refills 3, Tot. Refills 3, Maintenance, 12/05/21 20:30:00 EDT, Route to Pharmacy Electronically, [facility] #[id number], Partial fill upon... Start Date: 12/05/21 Status: [...] 04/06/21 12:52:00 EDT, Route to Pharmacy Electronically, [facility] #[id number], Partial fill upon patient request if the prescription is for a schedule... Start Date: 04/06/21 Status: Ordered Lantus Solostar Pen 100 units/mL subcutaneous solution = 15 units, Subcutaneous Infusion, Daily, with evening meal, # 15 mL, 3 Refills, Maintenance, 11/29/21 21:45:00 EDT, [facility] #[id number], Partial fill upon patient request if the prescriptionis for a schedule II opioid drug., 150, cm, ... Start Date: 11/29/21 Status: Ordered levothyroxine 0.025 mg oral tablet 1 tablet, By Mouth, Daily, # 90 tablet, 1 Refills, Maintenance, 11/29/21 7:27:00 EDT, Tablet, [facility] #[id number], 150, cm, 11/03/21 13:46:00 EDT, Height, 100.8, [...] 3 Refills, Maintenance, 04/05/21 13:22:00 EDT, Tablet, [facility] #23131, Part... Start Date: 04/05/21 Stop Date: 08/03/21 Status: Ordered NovoLOG FlexPen 100 units/mL injectable solution See Instructions, Subcutaneous Infusion 3 times a day before meals. Sliding scale:: 150-200 2 [id number] 4 UNITS 300-350 6 UNITS, # 3 mL, 3 Refills, Maintenance, 12/01/21 11:54:00 EDT, [facility] #[id number], Partial fill upon patient requ... Start Date: [...] 01/19/22 13:52:00 EDT, Route to Pharmacy Electronically, [facility] #[id number], Partial fill upon patient request... Start Date: [...] 10/14/21 18:18:00 EST, Route to Pharmacy Electronically, [facility] #[id number],148.4, cm, 10/05/21 10:50:00 EST, Height, 104.5, kg... Start Date: 10/14/21 Stop Date: 04/12/22 Status: Ordered spironolactone 100 mg oral tablet 100 mg, 1, tablet, By Mouth, Daily, # 90 tablet, Refills 1, Tot. Refills 1, Maintenance, 12/01/21 16:34:00 EDT, Route to Pharmacy Electronically, [facility] #[id number], Partial fill upon patient request if the [...] 11 Refills, Maintenance, 01/06/21 14:47:00 EDT, Powder, [facility] #[id number], Partial fill upon patient request if the [...] Numbness and tingling in hands(Confirmed) Active *[facility] [phone] CARE MANAG ER HELEN ROWDY(Confirmed) Active Hepatitis [...]
--- OUTSIDE RECORDS SUMMARY | 2023-03-06 14:51 | XMS_ITS | Continuity of Care Document ---
Author Name Unknown Organization [facility] Address [address] [place] [address]- Care Team Providers Care Associate Programmer Name Role Phone Rj GEOTECHNICAL DEPARTMENT MANAGER, Winsome Weiss Primary Care Physician Encounter [facility] Date(s): 09/14/20 - 10/14/20 [facility] [address] [place] [address]- Attending Physician: Dayana Orlando Admitting Physician: Dayana Orlando Referring Physician: AdmDayana nolan Allergies, Adverse Reactions, Alerts Substance Reaction Severity [...] [07/11/2018] [facility] 2Result Comment: [11/11/2015] given at [facility] [address] [place] [address] [phone] 3Result Comment: [07/11/2018] [facility] 4[facility] 5Admin Note: given at [facility] in [place], [place] 6Location History: [facility] 7Admin Note: boostrix [...] 06/21/20 16:00:00 EST, Route to Pharmacy Electronically, [facility] #[id number], 149.9, cm, 06/21/20 13:54:00 EST, Height, 103.8, [...] 5 Refills, Maintenance, 07/22/20 9:23:00 EST, Tablet, [facility] #45668, 153, cm, 07/22/20 9:04:00 EST, Height, 106, kg, 07/08/20 13:49:00 EST, Dry Weight Start Date: 07/22/20 Stop Date: 01/18/21 Status: Ordered ferrous sulfate 325 mg oral enteric coated tablet 325 mg, 1, tablet, By Mouth, 2 times a day, may take with food to minimize abdominal discomfort, # 180 tablet, Refills 1, Tot. Refills 1, Maintenance, 10/04/20 16:08:00 EST, Route to Pharmacy Electronically, [facility] #19459, 150, cm, 09/26... Start Date: 10/04/20 Stop Date: 04/02/21 Status: Ordered Flovent HFA 220 mcg/inh inhalation aerosol 2 puffs, Inhalation, 2 times a day, # 1 each, 6 Refills, Maintenance, 05/30/20 10:57:00 EDT, Aerosol, [facility] #[id number], 149.9, cm, 05/30/20 10:53:00 EDT, Height, 103.8, kg, 03/07/20 10:17:00 EDT, Dry Weight Start Date: 05/30/20 Stop Date: 12/26/20 Status: Ordered gabapentin 100 mg oral capsule 200 mg, 2, capsule, By Mouth, 3 times a day, # 180 capsule, Refills 1, Tot. Refills 1, Maintenance,09/14/20 15:22:00 EST, Route to Pharmacy Electronically, [facility] #[id number], Partial fill upon patient request if the prescription is for a sc... Start Date: 09/14/20 Status: Ordered levothyroxine 0.025 mg oral tablet 1 tablet, By Mouth, Daily, BUBBLE PACK PLEASE, # 30 tablet, 5 Refills, Maintenance, 07/22/20 9:24:00 EST, Tablet, [facility] #[id number], 153, cm, 07/22/20 9:04:00 EST, Height, 106, kg, 07/08/2013:49:00 EST, Dry Weight Start Date: 07/22/20 Stop Date: 01/18/21 Status: Ordered lisinopril 20 mg oral tablet 20 mg, 1, tablet, By Mouth, Daily, BUBBLE PACK PLEASE, # 30 tablet, Refills 5, Tot. Refills 5, Maintenance, 04/27/20 9:21:00 EDT, Route to Pharmacy Electronically, [facility] #[id number], 149.9,cm, 04/27/20 9:00:00 EDT, Height, 103.8, kg, ... Start Date: 04/27/20 Stop Date: 10/24/20 Status: Ordered LORazepam 1 mg oral tablet 1 tablet = 1 mg, By Mouth, Daily, PRN as needed for anxiety, # 30 tablet, 0 Refills, Maintenance, 09/16/20 15:53:00 EST, Tablet, [facility] #[id number], 153, cm, 09/14/20 13:47:00 EST, Height, 106, kg, 07/08/20 13:49:00 EST, Dry Weight Start Date: 09/16/20 Stop Date: 10/16/20 Status: Ordered nortriptyline 50 mg oral capsule 50 mg, 1, capsule, By Mouth, Daily, BUBBLE PACK PLEASE, # 30 capsule, Refills 6, Tot. Refills 6, Maintenance, 03/25/20 19:21:00 EDT, Route to Pharmacy Electronically, [facility] #[id number], 149.9, cm, 03/07/20 10:17:00 EDT, Height, 103.8, kg, 07... Start Date: 03/25/20 Stop Date: 10/21/20 Status: Ordered nystatin topical [id number] u/gm ointment 1 application, Topically, 3 times [...] Refills, Maintenance, 10/24/20 9:19:00 EDT, EC Capsule, [facility] #[id number], 149.9, cm, 06/14/20 14:58:00 EST, Height, 101, kg, 06/07/20 10:02:00 EDT, Dry Weight Start Date: 10/24/20 Stop Date: 02/21/21 Status: Ordered Singulair 10 mg oral tablet 10 mg, 1, tablet, By Mouth, Daily in PM, BUBBLE PACK PLEASE, # 30 tablet, Refills 5, Tot. Refills 5, Maintenance, 07/22/20 9:24:00 EST, Route to Pharmacy Electronically, [facility] #[id number], 153, cm, 07/22/20 9:04:00 EST, Height, 106, [...] hands(Confirmed) Active *[facility] [phone] CARE MANAG ER HELEN ROWDY(Confirmed) Active Rib [...]
--- OUTSIDE RECORDS SUMMARY | 2023-03-06 14:51 | XMS_ITS | Continuity of Care Document ---
Author Name Unknown Organization [facility] Address [address] [place] [address]- Care Team Providers Care Programmer Or Analyst Name Role Phone Rj HAMILTON, Winsome Weiss Primary Care Physician Encounter [facility] Date(s): 06/20/20 - 07/20/20 [facility] [address] [place] [address]- Attending Physician: Deena HAMILTON, Taryn Saucedo Admitting Physician: Deena HAMILTON, Taryn Saucedo Referring Physician: [...] [07/11/2018] [facility] 2Result Comment: [11/11/2015] given at [facility] [address] [place] [address] [phone] 3Result Comment: [07/11/2018] [facility] 5Admin Note: given at [facility] in [place], [place] 6Location History: bro 7Admin Note: [facility] [...] 06/21/20 16:00:00 EST, Route to Pharmacy Electronically, [facility] #[id number], 149.9, cm, 06/21/20 13:54:00 EST, Height, 103.8, [...] 5 Refills, Maintenance, 04/27/20 9:19:00 EDT, Tablet, [facility] #[id number], 149.9, cm, 04/27/20 9:00:00 EDT, Height, 103.8, kg, 03/07/20 10:17:00 EDT, Dry Weight Start Date: 04/27/20 Stop Date: 10/24/20 Status: Ordered ferrous sulfate 325 mg oral enteric coated tablet 325 mg, 1, tablet, By Mouth, 2 times a day, # 180 tablet, Refills 1, Tot. Refills 1, Maintenance, 12/24/18 14:50:03 EDT, Route to Pharmacy Electronically, [id number], [facility] Start Date: 12/24/18 Stop Date: 06/22/19 Status: Ordered Flovent HFA 220 mcg/inh inhalation aerosol 2 puffs, Inhalation, 2 times a day, # 1 each, 6 Refills, Maintenance, 05/30/20 10:57:00 EDT, Aerosol, [facility] #[id number], 149.9, cm, 05/30/20 10:53:00 EDT, Height, 103.8, kg, 03/07/20 10:17:00 EDT, Dry Weight Start Date: 05/30/20 Stop Date: 12/26/20 Status: Ordered gabapentin 100 mg oral capsule 100 mg, 1, capsule, By Mouth, 2 times a day, BUBBLE PACK PLEASE, # 60 capsule, Refills 3, Tot. Refills 3, Maintenance, 05/30/20 11:10:00 EDT, Route to Pharmacy Electronically, [facility] #[id number], 149.9, cm, 05/30/20 10:53:00 EDT, Height, 103.... Start Date: 05/30/20 Stop Date: 09/27/20 Status: Ordered levothyroxine 0.025 mg oral tablet 1 tablet, By Mouth, Daily, BUBBLE PACK PLEASE, # 30 tablet, 5 Refills, Maintenance, 04/27/20 9:20:00 EDT, Tablet, [facility] #[id number], 149.9, cm, 04/27/20 9:00:00 EDT, Height, 103.8, kg, 03/07/20 10:17:00 EDT, Dry Weight Start Date: 04/27/20 Stop Date: 10/24/20 Status: Ordered lisinopril 20 mg oral tablet 20 mg, 1, tablet, By Mouth, Daily, BUBBLE PACK PLEASE, # 30 tablet, Refills 5, Tot. Refills 5, Maintenance, 04/27/20 9:21:00 EDT, Route to Pharmacy Electronically, [facility] #[id number], 149.9,cm, 04/27/20 9:00:00 EDT, Height, 103.8, kg, 03/07/... Start Date: 04/27/20 Stop Date: 10/24/20 Status: Ordered LORazepam 1 mg oral tablet 1 tablet = 1 mg, By Mouth, Daily, PRN as needed for anxiety, # 30 tablet, 0 Refills, Maintenance, 05/30/20 10:55:00 EDT, Tablet, [facility] #[id number], 149.9, cm, 05/30/20 10:53:00 EDT, Height,103.8, kg, 03/07/20 10:17:00 EDT, Dry Weight Start Date: 05/30/20 Stop Date: 06/29/20 Status: Ordered nortriptyline 50 mg oral capsule 50 mg, 1, capsule, By Mouth, Daily, BUBBLE PACK PLEASE, # 30 capsule, Refills 6, Tot. Refills 6, Maintenance, 03/25/20 19:21:00 EDT, Route to Pharmacy Electronically, [facility] #[id number], 149.9, cm, 03/07/20 10:17:00 EDT, Height, 103.8, kg, 07... Start Date: 03/25/20 Stop Date: 10/21/20 Status: Ordered nystatin topical 746989 u/gm ointment 1 application, Topically, 3 times [...] Refills, Maintenance, 10/24/20 9:19:00 EDT, EC Capsule, [facility] #[id number], 149.9, cm, 06/14/20 14:58:00 EST, Height, 101, kg, 06/07/20 10:02:00 EDT, Dry Weight Start Date: 10/24/20 Stop Date: 02/21/21 Status: Ordered Singulair 10 mg oral tablet 10 mg, 1, tablet, By Mouth, Daily in PM, BUBBLE PACK PLEASE, # 30 tablet, Refills 5, Tot. Refills 5, Maintenance, 03/02/20 16:02:00 EDT, Route to Pharmacy Electronically, [facility] #[id number],149.9, cm, 03/02/20 10:16:00 EDT, Height, 94.4, kg,... [...] Numbness and tingling in hands(Confirmed) Active *[facility] [phone] CARE MANAG ER HELEN RENO(Confirmed) Active Rib [...]
--- OUTSIDE RECORDS SUMMARY | 2023-03-06 14:51 | XMS_ITS | Continuity of Care Document ---
Author Name Unknown Organization [facility] Address [address] [place] [address]- Care Team Providers Care Lead Network Architect Name Role Phone Rj HAMILTON, Winsome M Primary Care Physician Encounter [facility] Date(s): 06/08/21 - 07/08/21 [facility] [address] [place] [phone]- [place] Allergies, Adverse Reactions, Alerts Substance Reaction [...] [07/11/2018] [facility] 2Result Comment: [11/11/2015] given at [facility] [address] [place] [address] [phone] 3Result Comment: [07/11/2018] [facility] 5Admin Note: given at [facility] in [place], [place] 6Location History[facility] 7Admin Note: [...] mL, 11 Refills, Maintenance, 01/06/21 14:51:00 EDT, [place], [facility] #[id number], Partial fill upon patient request if the prescriptionis for a schedule II opioid drug., 2 sprays Nares,... Start Date: 01/06/21 Status: Ordered clopidogrel 75 mg oral tablet 75 mg, 1, tablet, By Mouth, Daily, # 30 tablet, Refills 3, Tot. Refills 3, Maintenance, 04/06/21 16:33:00 EDT, Route to Pharmacy Electronically, [facility] #[id number], Partial fill upon patientrequest if the prescription is for a schedule II op... Start Date: 04/06/21 Status: Ordered dicyclomine 10 mg oral capsule 1 capsule = 10 mg, By Mouth, 4 times a day, PRN Pain , Moderate, # 28 capsule, 0 Refills, Maintenance, 05/11/21 15:51:00 EDT, Capsule, [facility] #[id number], Partial fill upon patient request if the prescription is for a schedule II opioid drug.... Start Date: 05/11/21 Stop Date: 05/18/21 Status: Ordered escitalopram 20 mg oral tablet 1 tablet = 20 mg, By Mouth, Daily, # 90 tablet, 1 Refills, Maintenance, 02/14/21 7:29:00 EDT, Tablet, [facility] #[id number], 153, cm, 02/14/21 7:06:00 EDT, Height, 102.4, kg, 11/13/20 18:51:00 EDT, Dry Weight Start Date: 02/14/21 Stop Date: 08/13/21 Status: Ordered ferrous sulfate 325 mg oral enteric coated tablet 325 mg, 1, tablet, By Mouth, 2 times a day, may take with food to minimize abdominal discomfort, # 180 tablet, Refills 1, Tot. Refills 1, Maintenance, 05/02/21 8:25:00 EDT, Route to Pharmacy Electronically, [facility] #[id number], 148.4, cm, 070... Start Date: 05/02/21 Stop [...] Maintenance,12/27/20 11:32:00 EDT, Route to Pharmacy Electronically, [facility] #[id number], Partial fill upon patient request if the prescription is for a sc... Start Date: 12/27/20 Status: Ordered isosorbide mononitrate 30 mg oral tablet, extended release 30 mg, 1, tablet, By Mouth, Daily in AM, # 30 tablet, Refills 3, Tot. Refills 3, Maintenance, 04/05/21 13:22:00 EDT, Route to Pharmacy Electronically, [facility] #[id number], Partial fill upon patient request if the prescription is for a schedule... Start Date: 04/05/21 Stop Date: 08/03/21 Status: Ordered isosorbide mononitrate 30 mg oral tablet, extended release 30 mg, 1, tablet, By Mouth, Daily in AM, # 30 tablet, Refills 3, Tot. Refills 3, Maintenance, 04/06/21 12:52:00 EDT, Route to Pharmacy Electronically, [facility] #[id number], Partial fill upon patient request if the prescription is for a schedule... Start Date: 04/06/21 Status: Ordered levothyroxine 0.025 mg oral tablet 1 tablet, By Mouth, Daily, BUBBLE PACK PLEASE, # 90 tablet, 1 Refills, Maintenance, 02/14/21 7:27:00 EDT, Tablet, [facility] #[id number], 153, cm, 02/14/21 7:06:00 EDT, Height, 102.4, kg, 11/13/20 18:51:00 EDT, Dry Weight Start Date: 02/14/21 Stop Date: 08/13/21 Status: Ordered lisinopril 20 mg oral tablet 20 mg, 1, tablet, By Mouth, Daily, BUBBLE PACK PLEASE, # 90 tablet, Refills 1, Tot. Refills 1, Maintenance, 06/12/21 9:50:00 EDT, Route to Pharmacy Electronically, [facility] #[id number], 148.4,cm, 06/01/21 8:57:00 EDT, Height, 97.3, kg, ... Start Date: 06/12/21 Stop Date: 12/09/21 Status: Ordered LORazepam 1 mg oral tablet 1 tablet = 1 mg, By Mouth, Daily, PRN as needed for anxiety, covering provider, # 30 tablet, 0 Refills, Maintenance, 05/22/21 16:47:00 EDT, Tablet, [facility] #[id number], 148.4, cm, 02/16/21 15:09:00 EDT, Height, 97.6, kg, 02/15/21 17:00:00 EDT,... Start Date: 05/22/21 Stop Date: 06/21/21 Status: Ordered LORazepam 1 mg oral tablet 1 tablet = 1 mg, By Mouth, Daily, PRN as needed for anxiety, # 30 tablet, 0 Refills, Maintenance, 03/24/21 12:18:00 EDT, Tablet, [facility] #[id number], 148.4, cm, 02/16/21 15:09:00 EDT, Height,97.6, kg, [...] 3 Refills, Maintenance, 04/05/21 13:22:00 EDT, Tablet, [facility] #[id number], Part... Start Date: 04/05/21 Stop Date: 08/03/21 Status: Ordered nortriptyline 50 mg oral capsule 50 mg, 1, capsule, By Mouth, Daily, # 90 capsule, Refills 1, Tot. Refills 1, Maintenance, 02/14/21 7:26:00 EDT, Route to Pharmacy Electronically, [facility] #[id number], 153, cm, 02/14/21 7:06:00 EDT, Height, 102.4, kg, 11/13/20 18:51:00 EDT, Dry... Start Date: 02/14/21 Stop Date: 08/13/21 Status: Ordered omeprazole 20 mg oral enteric coated capsule 1 capsule = 20 mg, By Mouth, 2 times a day, BUBBLE PACK PLEASE, # 60 capsule, 3 Refills, Maintenance, 04/21/21 17:24:00 EDT, EC Capsule, [facility] #[id number], 148.4, cm, 02/16/21 15:09:00 EDT,Height, 97.6, kg, 02/15/21 17:00:00 EDT, Dry Weight Start Date: 04/21/21 Stop Date: 08/19/21 Status: Ordered ProAir HFA 90 mcg/inh inhalation aerosol 2 puffs, Inhalation, 4 times a day, PRN Wheezing/Shortness of Breath, # 2 each, 3 Refills, Maintenance, 11/08/20 17:08:00 EDT, Aerosol, [facility] #[id number], Partial fill upon patient request if the prescription is for a schedule II opioid drug... Start Date: 11/08/20 Stop Date: 03/08/21 Status: Ordered Singulair 10 mg oral tablet 10 mg, 1, tablet, By Mouth, Daily in PM, BUBBLE PACK PLEASE, # 30 tablet, Refills 5, Tot. Refills 5, Maintenance, 03/09/21 15:06:00 EDT, Route to Pharmacy Electronically, [facility] #[id number],148.4, cm, 02/16/21 15:09:00 EDT, Height, 97.6, kg,... Start Date: 03/09/21 Stop Date: 09/05/21 Status: Ordered umeclidinium 62.5 mcg/inh inhalation powder 1 inhalation = 62.5 mcg, Inhalation, Every 24 hours, doses should be taken at least 24 hours apart,# 30 each, 11 Refills, Maintenance, 01/06/21 14:47:00 EDT, Powder, [facility] #[id number], Partial fill upon patient request if the [...] Numbness and tingling in hands(Confirmed) Active *[facility] [phone] CARE MANAG ER HELEN RENO(Confirmed) Active Pulmonary [...]
--- OUTSIDE RECORDS SUMMARY | 2023-03-06 14:51 | XMS_ITS | Continuity of Care Document ---
Author Name Unknown Organization [facility] Address [address] [place] [address]- Care Team Providers Care Oil Spraying Machine Operator Name Role Phone Rj CHIMNEY CONSTRUCTION SUPERVISOR, Winsome Weiss Primary Care Physician Encounter [facility] Date(s): 11/02/19 - 12/09/19 [facility] [address] [place] [address]- Attending Physician: Not on Staff, Attending MD [...] at [facility] [address] [place] [address] 3Result Comment: [07/11/2018] [facility] 5Admin Note: given at [facility] in [place], [place] 6[facility] History[facility] 7Admin Note: [facility] [...] 10/21/19 14:37:00 EDT, Route to Pharmacy Electronically, [facility] #[id number], 149.9, cm, 08/10/19 9:46:00 EST, Height, 94.4... [...] 6 Refills, Maintenance, 10/21/19 14:37:00 EDT, Tablet, [facility] #[id number], 149.9, cm, 08/10/19 9:46:00 EST, Height, 94.4, kg, 05/21/19 10:46:00 EDT, Dry Weight Start Date: 10/21/19 Status: Ordered FeroSul 325 mg oral tablet 1 tablet = 325 mg, By Mouth, 2 times a day, BUBBLE PACK PLEASE, # 60 tablet, 5 Refills, Soft Stop, 10/21/19 14:38:00 EDT, [facility] #[id number], 149.9, cm, 08/10/19 9:46:00 EST, Height, 94.4, kg, 05/21/19 10:46:00 EDT, Dry Weight Start Date: 10/21/19 Stop Date: 04/18/20 Status: Ordered ferrous sulfate 325 mg oral enteric coated tablet 325 mg, 1, tablet, By Mouth, 2 times a day, # 180 tablet, Refills 1, Tot. Refills 1, Maintenance, 12/24/18 14:50:03 EDT, [id number] Start Date: 12/24/18 Stop Date: 06/22/19 [...] 12/04/19 14:46:00 EDT, Route to Pharmacy Electronically, [facility] #[id number], 149.9, cm, 08/10/19 9:46:00 EST, Height, 94.4,... Start Date: 12/04/19 Stop Date: 01/03/20 Status: Ordered levothyroxine 0.025 mg oral tablet 1 tablet, By Mouth, Daily, BUBBLE PACK PLEASE, # 30 tablet, 5 Refills, Maintenance, 10/21/19 14:40:00 EDT, Tablet, [facility] #[id number], 149.9, cm, 08/10/19 9:46:00 EST, Height, 94.4, kg, 05/21/19 10:46:00 EDT, Dry Weight Start Date: 10/21/19 Stop Date: 04/18/20 Status: Ordered lisinopril 20 mg oral tablet 20 mg, 1, tablet, By Mouth, Daily, BUBBLE PACK PLEASE, # 30 tablet, Refills 5, Tot. Refills 5, Maintenance, 10/21/19 14:40:00 EDT, Route to Pharmacy Electronically, [facility] #[id number], 149.9, cm, 08/10/19 9:46:00 EST, Height, 94.4, kg, ... Start Date: 10/21/19 Stop Date: 04/18/20 Status: Ordered LORazepam 1 mg oral tablet 1 tablet = 1 mg, By Mouth, Daily, PRN as needed for anxiety, # 30 tablet, 0 Refills, Maintenance, 11/16/19 15:28:00 EDT, Tablet, [facility] #[id number], 149.9, cm, 08/10/19 9:46:00 EST, Height, 94.4, kg, 05/21/19 10:46:00 EDT, Dry Weight Start Date: 11/16/19 Stop Date: 12/16/19 Status: Ordered nortriptyline 50 mg oral capsule 50 mg, 1, capsule, By Mouth, Daily, BUBBLE PACK PLEASE, # 30 capsule, Refills 0, Tot. Refills 0, Maintenance, 12/04/19 14:46:00 EDT, Route to Pharmacy Electronically, [facility] #[id number], 149.9, cm, 08/10/19 9:46:00 EST, Height, 94.4, kg, 05/12... Start Date: 12/04/19 Stop Date: 01/03/20 Status: Ordered nystatin topical 774715 u/gm ointment 1 application, Topically, 3 times [...] Refills, Maintenance, 10/21/19 14:42:00 EDT, EC Capsule, [facility] #[id number], 149.9, cm, 08/10/19 9:46:00 EST, Height, 94.4, kg, 05/21/19 10:46:00 EDT, Dry Weight Start Date: 10/21/19 Stop Date: 04/18/20 Status: Ordered Singulair 10 mg oral tablet 10 mg, 1, tablet, By Mouth, Daily in PM, BUBBLE PACK PLEASE, # 30 tablet, Refills 5, Tot. Refills 5, Maintenance, 10/21/19 14:41:00 EDT, Route to Pharmacy Electronically, [facility] #[id number],149.9, cm, 08/10/19 9:46:00 EST, Height, 94.4, kg,... [...] and tingling in hands(Confirmed) Active *[facility] [phone] CARE MANAG ER HELEN ROWDY(Confirmed) Active Rib [...]
--- OUTSIDE RECORDS SUMMARY | 2023-03-06 14:51 | XMS_ITS | Continuity of Care Document ---
Author Name Unknown Organization [facility] Sur[facility] Address [address], [address] [place] [address]- Care Team Providers Care Sulphate Tester Name Role Phone Rj CRIMINAL JUSTICE TEACHER, Winsome M Primary Care Physician Encounter [facility] Date(s): 10/05/20 - 10/12/20 [facility] [address], [address] [place] [address]- Attending Physician: Rossy Mcclure DO Allergies, Adverse [...] [07/11/2018] [facility] 2Result Comment: [11/11/2015] given at [facility] [address] [place] [address] [phone] 3Result Comment: [07/11/2018] [facility] 5Admin Note: given at [facility] in [place], [place] 6Location History[facility] 7Admin Note: [facility] [...] 06/21/20 16:00:00 EST, Route to Pharmacy Electronically, [facility] #[id number], 149.9, cm, 06/21/20 13:54:00 EST, Height, 103.8, [...] 5 Refills, Maintenance, 07/22/20 9:23:00 EST, Tablet, [facility] #[id number], 153, cm, 07/22/20 9:04:00 EST, Height, 106, kg, 07/08/20 13:49:00 EST, Dry Weight Start Date: 07/22/20 Stop Date: 01/18/21 Status: Ordered ferrous sulfate 325 mg oral enteric coated tablet 325 mg, 1, tablet, By Mouth, 2 times a day, may take with food to minimize abdominal discomfort, # 180 tablet, Refills 1, Tot. Refills 1, Maintenance, 10/04/20 16:08:00 EST, Route to Pharmacy Electronically, [facility] #[id number], 150, cm, 09/26... Start Date: 10/04/20 Stop Date: 04/02/21 Status: Ordered Flovent HFA 220 mcg/inh inhalation aerosol 2 puffs, Inhalation, 2 times a day, # 1 each, 6 Refills, Maintenance, 05/30/20 10:57:00 EDT, Aerosol, [facility] #[id number], 149.9, cm, 05/30/20 10:53:00 EDT, Height, 103.8, kg, 03/07/20 10:17:00 EDT, Dry Weight Start Date: 05/30/20 Stop Date: 12/26/20 Status: Ordered gabapentin 100 mg oral capsule 200 mg, 2, capsule, By Mouth, 3 times a day, # 180 capsule, Refills 1, Tot. Refills 1, Maintenance,09/14/20 15:22:00 EST, Route to Pharmacy Electronically, [facility] #[id number], Partial fill upon patient request if the prescription is for a sc... Start Date: 09/14/20 Status: Ordered levothyroxine 0.025 mg oral tablet 1 tablet, By Mouth, Daily, BUBBLE PACK PLEASE, # 30 tablet, 5 Refills, Maintenance, 07/22/20 9:24:00 EST, Tablet, [facility] #[id number], 153, cm, 07/22/20 9:04:00 EST, Height, 106, kg, 07/08/2013:49:00 EST, Dry Weight Start Date: 07/22/20 Stop Date: 01/18/21 Status: Ordered lisinopril 20 mg oral tablet 20 mg, 1, tablet, By Mouth, Daily, BUBBLE PACK PLEASE, # 30 tablet, Refills 5, Tot. Refills 5, Maintenance, 04/27/20 9:21:00 EDT, Route to Pharmacy Electronically, [facility] #[id number], 149.9,cm, 04/27/20 9:00:00 EDT, Height, 103.8, kg, ... Start Date: 04/27/20 Stop Date: 10/24/20 Status: Ordered LORazepam 1 mg oral tablet 1 tablet = 1 mg, By Mouth, Daily, PRN as needed for anxiety, # 30 tablet, 0 Refills, Maintenance, 09/16/20 15:53:00 EST, Tablet, [facility] #[id number], 153, cm, 09/14/20 13:47:00 EST, Height, 106, kg, 07/08/20 13:49:00 EST, Dry Weight Start Date: 09/16/20 Stop Date: 10/16/20 Status: Ordered nortriptyline 50 mg oral capsule 50 mg, 1, capsule, By Mouth, Daily, BUBBLE PACK PLEASE, # 30 capsule, Refills 6, Tot. Refills 6, Maintenance, 03/25/20 19:21:00 EDT, Route to Pharmacy Electronically, [facility] #[id number], 149.9, cm, 03/07/20 10:17:00 EDT, Height, 103.8, kg, 07... Start Date: 03/25/20 Stop Date: 10/21/20 Status: Ordered nystatin topical 226761 u/gm ointment 1 application, Topically, 3 times [...] Refills, Maintenance, 10/24/20 9:19:00 EDT, EC Capsule, [facility] #[id number], 149.9, cm, 06/14/20 14:58:00 EST, Height, 101, kg, 06/07/20 10:02:00 EDT, Dry Weight Start Date: 10/24/20 Stop Date: 02/21/21 Status: Ordered Singulair 10 mg oral tablet 10 mg, 1, tablet, By Mouth, Daily in PM, BUBBLE PACK PLEASE, # 30 tablet, Refills 5, Tot. Refills 5, Maintenance, 07/22/20 9:24:00 EST, Route to Pharmacy Electronically, [facility] #[id number], 153, cm, 07/22/20 9:04:00 EST, Height, 106, [...] in hands(Confirmed) Active *[facility] [phone] CARE MANAG ER HELEN RENO(Confirmed) Active Rib pain on left side(Confirmed) Active Pain in right shoulder(Confirmed) Active Urge urinary incontinence(Confirmed) Active 1tx with apc today due to bleeding. 2normal PFT's 11/22/14 r/o COPD 3childhood onset 4possibly Type III 53+ 6s/p bilateral salpingo-oophrectomy Vital Signs Most recent to oldest [Reference Range]: 1 Height 150 cm (10/05/20 12:57 PM) Weight 97.8 kg (10/05/20 12:57 PM) Oxygen Saturation [94-100 %] 95 % (10/05/20 12:57 PM) Pulse Rate [55-90 bpm] 85 bpm (10/05/20 12:57 PM) Body Mass Index [18.5-24.99] 43.47 *>HHI* (10/05/20 12:57 PM) Social History Social History Type Response Smoking Status Former smoker; Tobac co user in household: No; Type: Cigarettes; Stopped at age: 48; Tobacco use times per day: up to 2 ppd; Started at age: 16; entered on: 11/08/14 Sex
--- OUTSIDE RECORDS SUMMARY | 2023-03-06 14:51 | XMS_ITS | Continuity of Care Document ---
Author Name Unknown Organization [facility] Address [address] [place] [address]- Care Team Providers Care Career Services Manager Name Role Phone Rj MEDICAL EXAMINER, Winsome Weiss Primary Care Physician [phone] Encounter [facility] Date(s): 05/17/22 - 06/16/[address] [address] Allergies, Adverse Reactions, Alerts Substance Reaction Severity Status aspirin Hives hives unknown Mild Active Bee Stings anaphylaxis Persistent Severe Active penicillins gerd gi distress Headache Active Immunizations Given and Recorded Vaccine Date [...] B adult vaccine 03/16/22 Recorded SARS-CoV-2 mRNA ([id number]) vax 03/16/22 Recorded SARS-CoV-2 (COVID-19) mRNA-1273 vaccine 06/21/21 R ecorded SARS-CoV-2 (COVID-19) Ad26 vaccine 11/20/20 Given Zoster Vaccine Live 4 07/10/18 Recorded Zoster Vaccine Live 5 11/09/15 Recorded Zoster Vaccine Live 08/19/12 Recorded pneumococcal 13-valent vaccine 01/27/18 Recorded pneumococcal 23-valent vaccine 6 07/19/15 Recorded pneumococcal 23-valent vaccine 03/31/10 Given Tet/Diphth/Acel, Pertussis (oldterm) 7 12/11/13 Gi sukhi 1Result Comment: [07/11/2018] [facility] 3Admin Note: given at [facility] [place] 4Result Comment: [07/11/2018] [facility] 5Result Comment: [11/11/2015] [facility] at [facility] [address] [place] [address] [phone] 6[facility] History[facility] 7Admin Note: boostrix vis 12-28-2012 Medications Breo Ellipta 200 mcg-25 mcg/inh inhalation powder 1 puffs, Inhalation, Daily, # 1 each, 11 Refills, Maintenance, 12/20/21 15:11:00 EDT, Powder, [facility] #[id number], Partial fill upon patient request if the [...] 01/19/22 19:16:00 EDT, Route to Pharmacy Electronically, [facility] #[id number], Partial fill upon patientrequest if the prescription is for a schedule II op... Start Date: 01/19/22 Status: Ordered docusate sodium 100 mg oral capsule 100 mg, 1, capsule, By Mouth, Every 12 hours, PRN, # 60 capsule, Refills 0, Tot. Refills 0, Maintenance, Constipation, 05/07/22 19:59:00 EDT, Route to Pharmacy Electronically, [facility] #[id number], Partial fill upon patient request if the presc... Start Date: 05/07/22 Stop Date: 06/06/22 Status: Ordered escitalopram 20 mg oral tablet 1 tablet = 20 mg, By Mouth, Daily, # 90 tablet, 0 Refills, Maintenance, 05/07/22 20:00:00 EDT, Tablet, [facility] #[id number], 150, cm, 05/02/22 15:04:00 EDT, Height, 98, kg, 03/07/22 19:54:00 EDT, Dry Weight Start Date: 05/07/22 Stop Date: 08/05/22 Status: Ordered ferrous sulfate 325 mg oral enteric coated tablet 325 mg, 1, tablet, By Mouth, 2 times a day, # 180 tablet, Refills 0, Tot. Refills 0, Maintenance, 05/03/22 16:52:00 EDT, Route to Pharmacy Electronically, [facility] #[id number], Partial fill upon patient request if the prescription is for a sche... Start Date: 05/03/22 Stop Date: 08/01/22 Status: Ordered furosemide 20 mg oral tablet 20 mg, 1, tablet, By Mouth, 2 times a day, # 180 tablet, Refills 0, Tot. Refills 0, Maintenance, 05/07/22 19:59:00 EDT, Route to Pharmacy Electronically, [facility] #[id number], Partial fill upon patient request if the prescription is for a sched... Start Date: 05/07/22 Stop Date: 08/05/22 Status: Ordered gabapentin 100 mg oral capsule 200 mg, 2, capsule, By Mouth, 3 times a day, 2 capsules to equal 200 mg three times a day., # 180 capsule, Refills 0, Tot. Refills 0, Maintenance, 06/05/22 14:23:00 EDT, Route to Pharmacy Electronically, [facility] #[id number], Partial fill upon... Start Date: 06/05/22 Status: [...] 07/15/22 12:26:00 EST, 06/15/22 12:26:00 EDT, Syrup, [facility], Partial fill upon patient request if the prescription is f... Start Date: 06/15/22 Stop Date: 07/15/22 Status: Ordered Lantus Solostar Pen 100 units/mL subcutaneous solution = 15 units, Subcutaneous Infusion, Daily, with evening meal, # 15 mL, 3 Refills, Maintenance, 11/29/21 21:45:00 EDT, [facility] #[id number], Partial fill upon patient request if the prescriptionis for a schedule II opioid drug., 150, cm, ... Start Date: 11/29/21 Status: Ordered levothyroxine 0.025 mg oral tablet 1 tablet, By Mouth, Daily, # 90 tablet, 1 Refills, Maintenance, 05/07/22 19:58:00 EDT, Tablet, [facility] #[id number], 150, cm, 05/02/22 15:04:00 EDT, Height, 98, kg, 03/07/22 19:54:00 EDT, Dry Weight Start Date: 05/07/22 Stop Date: 11/03/22 Status: Ordered LORazepam 0.5 mg oral tablet 1 tablet = 0.5 mg, By Mouth, Daily at bedtime, PRN Anxiety, USE SPARINGLY, # 30 tablet, 0 Refills, Maintenance, 05/11/22 7:10:00 EDT, Tablet, [facility] #[id number], Partial fill upon patient request if the [...] 0 Refills, Maintenance, 05/11/22 7:07:00 EDT, Tablet, [facility] #[id number], Partial fill upon patient request if the [...] 3 Refills, Maintenance, 04/05/21 13:22:00 EDT, Tablet, [facility] #[id number], Part... Start Date: 04/05/21 Stop Date: 08/03/21 Status: Ordered NovoLOG FlexPen 100 units/mL injectable solution See Instructions, Subcutaneous Infusion 3 times a day before meals. Sliding scale:: 150-200 2 [id number] 4 UNITS 300-350 6 UNITS, # 3 mL, 3 Refills, Maintenance, 12/01/21 11:54:00 EDT, [facility] #[id number], Partial fill upon patient requ... Start Date: [...] 10/14/21 18:18:00 EST, Route to Pharmacy Electronically, [facility] #[id number],148.4, cm, 10/05/21 10:50:00 EST, Height, 104.5, kg... Start Date: 10/14/21 Stop Date: 04/12/22 Status: Ordered spironolactone 100 mg oral tablet 100 mg, 1, tablet, By Mouth, Daily, # 90 tablet, Refills 1, Tot. Refills 1, Maintenance, 05/24/22 10:31:00 EDT, Route to Pharmacy Electronically, [facility] #[id number], Partial fill upon patient request if the prescription is for a schedule II o... Start Date: 05/24/22 Stop Date: 11/20/22 Status: Ordered trospium 60 mg oral capsule, extended release 1 capsule = 60 mg, By Mouth, Daily in AM, # 90 capsule, 0 Refills, Maintenance, 05/11/22 7:11:00 EDT, [facility] #[id number], Partial fill upon patient request if the [...] 11 Refills, Maintenance, 03/15/22 10:32:00 EDT, Powder, [facility] #[id number], Partial fill upon patient request if the [...] Numbness and tingling in hands Confirmed Active *[facility] [phone] LIFE AGENT HELEN RENO Confirmed Active Hepatitis C virus [...] Winsome De La Rosa NP Address: Address: [address] [place], [place] [address] [place] [address]-
--- OUTSIDE RECORDS SUMMARY | 2023-03-06 14:51 | XMS_ITS | Continuity of Care Document ---
Author Name Unknown Organization [address] [address]- Care Team Providers Care Executive Staff Assistant Name Role Phone Rj VICE PRESIDENT PROCESS, Winsome M Primary Care Physician Encounter [facility] Date(s): 09/22/20 - 10/22/[address] [address]- Attending Physician: Admovidio, Dayana Admitting Physician: Admtr, Wilian8 Referring Physician: Admtr, Ar8 Allergies, Adverse Reactions, [...] [facility] 2Result Comment: [11/11/2015] given at [facility] [address] [place] [address] [phone] 3Result Comment: [07/11/2018] [facility] 5Admin Note: given at [facility] in [place], [place] 6Location History[facility] 7Admin Note: boostrix [...] 06/21/20 16:00:00 EST, Route to Pharmacy Electronically, [facility] #[id number], 149.9, cm, 06/21/20 13:54:00 EST, Height, 103.8, [...] 5 Refills, Maintenance, 07/22/20 9:23:00 EST, Tablet, [facility] #[id number], 153, cm, 07/22/20 9:04:00 EST, Height, 106, kg, 07/08/20 13:49:00 EST, Dry Weight Start Date: 07/22/20 Stop Date: 01/18/21 Status: Ordered ferrous sulfate 325 mg oral enteric coated tablet 325 mg, 1, tablet, By Mouth, 2 times a day, may take with food to minimize abdominal discomfort, # 180 tablet, Refills 1, Tot. Refills 1, Maintenance, 10/04/20 16:08:00 EST, Route to Pharmacy Electronically, [facility] #[id number], 150, cm, 09/26... Start Date: 10/04/20 Stop Date: 04/02/21 Status: Ordered Flovent HFA 220 mcg/inh inhalation aerosol 2 puffs, Inhalation, 2 times a day, # 1 each, 6 Refills, Maintenance, 05/30/20 10:57:00 EDT, Aerosol, [facility] #57908, 149.9, cm, 05/30/20 10:53:00 EDT, Height, 103.8, kg, 03/07/20 10:17:00 EDT, Dry Weight Start Date: 05/30/20 Stop Date: 12/26/20 Status: Ordered gabapentin 100 mg oral capsule 200 mg, 2, capsule, By Mouth, 3 times a day, # 180 capsule, Refills 1, Tot. Refills 1, Maintenance,09/14/20 15:22:00 EST, Route to Pharmacy Electronically, [facility] #[id number], Partial fill upon patient request if the prescription is for a sc... Start Date: 09/14/20 Status: Ordered levothyroxine 0.025 mg oral tablet 1 tablet, By Mouth, Daily, BUBBLE PACK PLEASE, # 30 tablet, 5 Refills, Maintenance, 07/22/20 9:24:00 EST, Tablet, [facility] #[id number], 153, cm, 07/22/20 9:04:00 EST, Height, 106, kg, 07/08/2013:49:00 EST, Dry Weight Start Date: 07/22/20 Stop Date: 01/18/21 Status: Ordered lisinopril 20 mg oral tablet 20 mg, 1, tablet, By Mouth, Daily, BUBBLE PACK PLEASE, # 30 tablet, Refills 5, Tot. Refills 5, Maintenance, 04/27/20 9:21:00 EDT, Route to Pharmacy Electronically, [facility] #[id number], 149.9,cm, 04/27/20 9:00:00 EDT, Height, 103.8, kg, ... Start Date: 04/27/20 Stop Date: 10/24/20 Status: Ordered LORazepam 1 mg oral tablet 1 tablet = 1 mg, By Mouth, Daily, PRN as needed for anxiety, # 30 tablet, 0 Refills, Maintenance, 09/16/20 15:53:00 EST, Tablet, [facility] #[id number], 153, cm, 09/14/20 13:47:00 EST, Height, 106, kg, 07/08/20 13:49:00 EST, Dry Weight Start Date: 09/16/20 Stop Date: 10/16/20 Status: Ordered nortriptyline 50 mg oral capsule 50 mg, 1, capsule, By Mouth, Daily, BUBBLE PACK PLEASE, # 30 capsule, Refills 6, Tot. Refills 6, Maintenance, 03/25/20 19:21:00 EDT, Route to Pharmacy Electronically, [facility] #[id number], 149.9, cm, 03/07/20 10:17:00 EDT, Height, 103.8, kg, 07... Start Date: 03/25/20 Stop Date: 10/21/20 Status: Ordered nystatin topical 110898 u/gm ointment 1 application, Topically, 3 times [...] Refills, Maintenance, 10/24/20 9:19:00 EDT, EC Capsule, [facility] #20482, 149.9, cm, 06/14/20 14:58:00 EST, Height, 101, kg, 06/07/20 10:02:00 EDT, Dry Weight Start Date: 10/24/20 Stop Date: 02/21/21 Status: Ordered Singulair 10 mg oral tablet 10 mg, 1, tablet, By Mouth, Daily in PM, BUBBLE PACK PLEASE, # 30 tablet, Refills 5, Tot. Refills 5, Maintenance, 07/22/20 9:24:00 EST, Route to Pharmacy Electronically, [facility] #00644, 153, cm, 07/22/20 9:04:00 EST, Height, 106, [...] in hands(Confirmed) Active *[facility] [phone] CARE MANAG ER HELEN ROWDY(Confirmed) Active Rib [...]
--- OUTSIDE RECORDS SUMMARY | 2023-03-06 14:51 | XMS_ITS | Continuity of Care Document ---
Author Name Unknown Organization [facility] Address [address] [place] [address], [address] [place] [address]- Care Team Providers Care Family Nurse Name Role Phone Rj INSTRUCTOR LOOPING, Winsome Weiss Primary Care Physician [phone] Encounter [facility] Date(s): 05/02/22 - 06/01/22 [facility] [address] [place] [address] Drive, [address] [place] [address]- Attending Physician: Dayana Orlando Admitting Physician: AdmDayana [...] [facility] 3Admin Note: given at [facility] in [place], [place] 4Result Comment: [07/11/2018] [facility] 5Result Comment: [11/11/2015] given at [facility] [address] [place] [address] [phone] 6[facility] History[facility] 7Admin Note: boostrix vis 12-28-2012 Medications Breo Ellipta 200 mcg-25 mcg/inh inhalation powder 1 puffs, Inhalation, Daily, # 1 each, 11 Refills, Maintenance, 12/20/21 15:11:00 EDT, Powder, [facility] #[id number], Partial fill upon patient request if the [...] 01/19/22 19:16:00 EDT, Route to Pharmacy Electronically, [facility] #[id number], Partial fill upon patientrequest if the prescription is for a schedule II op... Start Date: 01/19/22 Status: Ordered docusate sodium 100 mg oral capsule 100 mg, 1, capsule, By Mouth, Every 12 hours, PRN, # 60 capsule, Refills 0, Tot. Refills 0, Maintenance, Constipation, 05/07/22 19:59:00 EDT, Route to Pharmacy Electronically, [facility] #[id number], Partial fill upon patient request if the presc... Start Date: 05/07/22 Stop Date: 06/06/22 Status: Ordered docusate sodium 100 mg oral capsule TAKE 1 CAPSULE BY MOUTH TWICE DAILY NEEDED FOR CONSTIPATION Start Date: 02/20/22 Status: Ordered escitalopram 20 mg oral tablet 1 tablet = 20 mg, By Mouth, Daily, # 90 tablet, 0 Refills, Maintenance, 05/07/22 20:00:00 EDT, Tablet, [facility] #[id number], 150, cm, 05/02/22 15:04:00 EDT, Height, 98, kg, 03/07/22 19:54:00 EDT, Dry Weight Start Date: 05/07/22 Stop Date: 08/05/22 Status: Ordered ferrous sulfate 325 mg oral enteric coated tablet 325 mg, 1, tablet, By Mouth, 2 times a day, # 180 tablet, Refills 0, Tot. Refills 0, Maintenance, 05/03/22 16:52:00 EDT, Route to Pharmacy Electronically, [facility] #[id number], Partial fill upon patient request if the [...] 05/07/22 19:59:00 EDT, Route to Pharmacy Electronically, [facility] #[id number], Partial fill upon patient request if the prescription is for a sched... Start Date: 05/07/22 Stop Date: 08/05/22 Status: Ordered gabapentin 100 mg oral capsule 200 mg, 2, capsule, By Mouth, 3 times a day, 2 capsules to equal 200 mg three times a day., # 180 capsule, Refills 0, Tot. Refills 0, Maintenance, 05/07/22 19:56:00 EDT, Route to Pharmacy Electronically, [facility] #[id number], Partial fill upon... Start Date: 05/07/22 Status: [...] mL, 3 Refills, Maintenance, 11/29/21 21:45:00 EDT, [facility] #[id number], Partial fill upon patient request if the prescriptionis for a schedule II opioid drug., 150, cm, ... Start Date: 11/29/21 Status: Ordered levothyroxine 0.025 mg oral tablet 1 tablet, By Mouth, Daily, # 90 tablet, 1 Refills, Maintenance, 05/07/22 19:58:00 EDT, Tablet, [facility] #[id number], 150, cm, 05/02/22 15:04:00 EDT, Height, 98, kg, 03/07/22 19:54:00 EDT, Dry Weight Start Date: 05/07/22 Stop Date: 11/03/22 Status: Ordered LORazepam 0.5 mg oral tablet 1 tablet = 0.5 mg, By Mouth, Daily at bedtime, PRN Anxiety, USE SPARINGLY, # 30 tablet, 0 Refills, Maintenance, 05/11/22 7:10:00 EDT, Tablet, [facility] #20772, Partial fill upon patient request if the [...] 0 Refills, Maintenance, 05/11/22 7:07:00 EDT, Tablet, [facility] #[id number], Partial fill upon patient request if the [...] 3 Refills, Maintenance, 04/05/21 13:22:00 EDT, Tablet, [facility] #13652, Part... Start Date: 04/05/21 Stop Date: 08/03/21 Status: Ordered NovoLOG FlexPen 100 units/mL injectable solution See Instructions, Subcutaneous Infusion 3 times a day before meals. Sliding scale:: 150-200 2 [id number] 4 UNITS 300-350 6 UNITS, # 3 mL, 3 Refills, Maintenance, 12/01/21 11:54:00 EDT, [facility] #58689, Partial fill upon patient requ... Start Date: [...] 01/19/22 13:52:00 EDT, Route to Pharmacy Electronically, [facility] #[id number], Partial fill upon patient request... Start Date: [...] 10/14/21 18:18:00 EST, Route to Pharmacy Electronically, [facility] #08219,148.4, cm, 10/05/21 10:50:00 EST, Height, 104.5, kg... Start Date: 10/14/21 Stop Date: 04/12/22 Status: Ordered spironolactone 100 mg oral tablet 100 mg, 1, tablet, By Mouth, Daily, # 90 tablet, Refills 1, Tot. Refills 1, Maintenance, 05/24/22 10:31:00 EDT, Route to Pharmacy Electronically, [facility] #[id number], Partial fill upon patient request if the prescription is for a schedule II o... Start Date: 05/24/22 Stop Date: 11/20/22 Status: Ordered trospium 60 mg oral capsule, extended release 1 capsule = 60 mg, By Mouth, Daily in AM, # 90 capsule, 0 Refills, Maintenance, 05/11/22 7:11:00 EDT, [facility] #[id number], Partial fill upon patient request if the [...] 11 Refills, Maintenance, 03/15/22 10:32:00 EDT, Powder, [facility] #[id number], Partial fill upon patient request if the [...] Numbness and tingling in hands Confirmed Active *[facility] [phone] SANE RN HELEN RENO Confirmed Active Hepatitis C virus [...] Care team information Personnel Name: Rj HAMILTON, Wisnome Weiss Address: Address: [address] [place] [id number]
--- OUTSIDE RECORDS SUMMARY | 2023-03-06 14:52 | XMS_ITS | Continuity of Care Document ---
Author Name Unknown Organization [facility] Address [address] [place] [address]- Care Team Providers Care Hot Stick Worker Name Role Phone Winsome De La Rosa NP Primary Care Physician Encounter [facility] Date(s): 06/04/19 - 10/07/19 [facility] [address] [place] [address]- Attending Physician: Winsome De La Rosa NP [...] [07/11/2018] [facility] 2Result Comment: [11/11/2015] given at [facility] [address] [place] [address] 3Result Comment: [07/11/2018] [facility] 5Admin Note: given at [facility] in [place], [place] 6Location History[facility] 7Admin Note: boostrix [...] Maintenance,12/24/18 14:50:42 EDT, Route to Pharmacy Electronically, [id number], [facility] Start Date: 12/24/18 Stop Date: 06/22/19 Status: Ordered docusate sodium 100 mg oral capsule See Instructions, # 60 Unknown, Refills 14 Tot. Refills 14, TAKE ONE CAPSULE BY MOUTH TWICE DAILY, [facility] Start Date: 04/24/19 Status: Ordered escitalopram 10 mg oral tablet 1 tablet = 10 mg, By Mouth, Daily, # 30 tablet, 6 Refills, Maintenance, 08/10/19 10:10:00 EST, Tablet, [email or web address] #[id number], 149.9, cm, 08/10/19 9:46:00 EST, Height, 94.4, [...] 12/24/18 14:50:03 EDT, Route to Pharmacy Electronically, [id number], [facility] Start Date: 12/24/18 Stop Date: 06/22/19 Status: Ordered Flovent HFA 220 mcg/inh inhalation aerosol 2 puffs, Inhalation, 2 times a day, # 1 each, 6 Refills, Maintenance, 09/24/17 16:24:21, Aerosol Start Date: 09/24/17 Stop Date: 04/22/18 Status: Ordered gabapentin 100 mg oral capsule 100 mg, 1, capsule, By Mouth, 2 times a day, # 60 capsule, Refills 0, Tot. Refills 0, Maintenance, 09/14/19 11:08:00 EST, Route to Pharmacy Electronically, [facility] #[id number], 149.9, cm, 08/10/19 9:46:00 EST, Height, 94.4, kg, 05/21/19 10:46:... Start Date: 09/14/19 Stop Date: 10/14/19 Status: Ordered levothyroxine 0.025 mg oral tablet 1 tablet, By Mouth, Daily, # 90 tablet, 3 Refills, Maintenance, 05/13/17 13:17:05, Tablet Start Date: 05/13/17 Stop Date: 05/08/18 Status: Ordered lisinopril 20 mg oral tablet 20 mg, 1, tablet, By Mouth, Daily, # 90 tablet, Refills 1, Tot. Refills 1, Maintenance, 06/30/19 12:32:13 EST, Route to Pharmacy Electronically, [id number], [facility] #[id number] Start Date: 06/30/19 Stop Date: 12/27/19 Status: Ordered LORazepam 1 mg oral tablet 1 tablet = 1 mg, By Mouth, Daily, PRN as needed for anxiety, # 30 tablet, 0 Refills, Maintenance, 08/10/19 10:11:00 EST, Tablet, [facility] #00508, 149.9, cm, 08/10/19 9:46:00 EST, Height, 94.4, kg, 05/21/19 10:46:00 EDT, Dry Weight Start Date: 08/10/19 Stop Date: 09/09/19 Status: Ordered nortriptyline 50 mg oral capsule 50 mg, 1, capsule, By Mouth, Daily, # 30 capsule, Refills 0, Tot. Refills 0, Maintenance, 09/14/19 11:10:00 EST, Route to Pharmacy Electronically, [facility] #[id number], 149.9, cm, 08/10/19 9:46:00 EST, Height, 94.4, kg, 05/21/19 10:46:00 EDT, D... Start Date: 09/14/19 Stop Date: 10/14/19 Status: Ordered nystatin topical 996085 u/gm ointment 1 application, Topically, 3 times [...] mg, By Mouth, Daily, # 30 capsule, 0 Refills, Maintenance, 09/14/19 11:10:00 EST, ECCapsule, [facility] #[id number], 149.9, cm, 08/10/19 9:46:00 EST, Height, 94.4, kg, 05/21/19 10:46:00 EDT, Dry Weight Start Date: 09/14/19 Stop Date: 10/14/19 Status: Ordered Singulair 10 mg oral tablet 10 mg, 1, tablet, By Mouth, Daily in PM, # 30 tablet, Refills 0, Tot. Refills 0, Maintenance, 09/14/19 11:09:00 EST, Route to Pharmacy Electronically, [facility] #[id number], 149.9, cm, 08/10/199:46:00 EST, Height, 94.4, kg, 05/21/19 10:46:00 ED... Start Date: 09/14/19 Stop Date: 10/14/19 Status: Ordered Spiriva Respimat 1.25 mcg/inh inhalation [...] Numbness and tingling in hands(Confirmed) Active *[facility] [phone] CARE MANAG ER HELEN RENO(Confirmed) Active Rib [...]
--- OUTSIDE RECORDS SUMMARY | 2023-03-06 14:52 | XMS_ITS | Continuity of Care Document ---
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 M Primary Care Physician [phone] Encounter [facility] Date(s): 04/26/22 - 05/26/22 [facility] [address] [place] [address]- Attending Physician: Dayana Orlando Admitting Physician: AdmtrDayana Referring Physician: Admtr, Ar8 Allergies, Adverse Reactions, Alerts Substance Reaction Severity Status Bee Stings anaphylaxis Persistent Severe Active aspirin Hives hives unknown Mild Active penicillins [...] 2Location History: [facility] 3Admin Note: given at [facility] in [place], [place] 4Result Comment: [07/11/2018] [facility] 5Result Comment: [11/11/2015] given at [facility] [address] [place] [address] [phone] 6Location History: [facility] 7Admin Note: boostrix vis 12-28-2012 Medications Breo Ellipta 200 mcg-25 mcg/inh inhalation powder 1 puffs, Inhalation, Daily, # 1 each, 11 Refills, Maintenance, 12/20/21 15:11:00 EDT, Powder, [facility] #[id number], Partial fill upon patient request if the [...] 01/19/22 19:16:00 EDT, Route to Pharmacy Electronically, [facility] #[id number], Partial fill upon patientrequest if the prescription is for a schedule II op... Start Date: 01/19/22 Status: Ordered docusate sodium 100 mg oral capsule 100 mg, 1, capsule, By Mouth, Every 12 hours, PRN, # 60 capsule, Refills 0, Tot. Refills 0, Maintenance, Constipation, 05/07/22 19:59:00 EDT, Route to Pharmacy Electronically, [facility] #[id number], Partial fill upon patient request if the presc... Start Date: 05/07/22 Stop Date: 06/06/22 Status: Ordered docusate sodium 100 mg oral capsule TAKE 1 CAPSULE BY MOUTH TWICE DAILY NEEDED FOR CONSTIPATION Start Date: 02/20/22 Status: Ordered escitalopram 20 mg oral tablet 1 tablet = 20 mg, By Mouth, Daily, # 90 tablet, 0 Refills, Maintenance, 05/07/22 20:00:00 EDT, Tablet, [facility] #[id number], 150, cm, 05/02/22 15:04:00 EDT, Height, 98, kg, 03/07/22 19:54:00 EDT, Dry Weight Start Date: 05/07/22 Stop Date: 08/05/22 Status: Ordered ferrous sulfate 325 mg oral enteric coated tablet 325 mg, 1, tablet, By Mouth, 2 times a day, # 180 tablet, Refills 0, Tot. Refills 0, Maintenance, 05/03/22 16:52:00 EDT, Route to Pharmacy Electronically, [facility] #[id number], Partial fill upon patient request if the [...] 05/07/22 19:59:00 EDT, Route to Pharmacy Electronically, [facility] #[id number], Partial fill upon patient request if the prescription is for a sched... Start Date: 05/07/22 Stop Date: 08/05/22 Status: Ordered gabapentin 100 mg oral capsule 200 mg, 2, capsule, By Mouth, 3 times a day, 2 capsules to equal 200 mg three times a day., # 180 capsule, Refills 0, Tot. Refills 0, Maintenance, 05/07/22 19:56:00 EDT, Route to Pharmacy Electronically, [facility] #[id number], Partial fill upon... Start Date: 05/07/22 Status: [...] mL, 3 Refills, Maintenance, 11/29/21 21:45:00 EDT, [facility] #[id number], Partial fill upon patient request if the prescriptionis for a schedule II opioid drug., 150, cm, ... Start Date: 11/29/21 Status: Ordered levothyroxine 0.025 mg oral tablet 1 tablet, By Mouth, Daily, # 90 tablet, 1 Refills, Maintenance, 05/07/22 19:58:00 EDT, Tablet, [facility] #[id number], 150, cm, 05/02/22 15:04:00 EDT, Height, 98, kg, 03/07/22 19:54:00 EDT, Dry Weight Start Date: 05/07/22 Stop Date: 11/03/22 Status: Ordered LORazepam 0.5 mg oral tablet 1 tablet = 0.5 mg, By Mouth, Daily at bedtime, PRN Anxiety, USE SPARINGLY, # 30 tablet, 0 Refills, Maintenance, 05/11/22 7:10:00 EDT, Tablet, [facility] #[id number], Partial fill upon patient request if the [...] 0 Refills, Maintenance, 05/11/22 7:07:00 EDT, Tablet, [facility] #[id number], Partial fill upon patient request if the [...] 3 Refills, Maintenance, 04/05/21 13:22:00 EDT, Tablet, [facility] #[id number], Part... Start Date: 04/05/21 Stop Date: 08/03/21 Status: Ordered NovoLOG FlexPen 100 units/mL injectable solution See Instructions, Subcutaneous Infusion 3 times a day before meals. Sliding scale:: 150-200 2 [id number] UNITS 300-350 6 UNITS, # 3 mL, 3 Refills, Maintenance, 12/01/21 11:54:00 EDT, [facility] #[id number], Partial fill upon patient requ... Start Date: [...] 01/19/22 13:52:00 EDT, Route to Pharmacy Electronically, [facility] #[id number], Partial fill upon patient request... Start Date: [...] 10/14/21 18:18:00 EST, Route to Pharmacy Electronically, [facility] #[id number],148.4, cm, 10/05/21 10:50:00 EST, Height, 104.5, kg... Start Date: 10/14/21 Stop Date: 04/12/22 Status: Ordered spironolactone 100 mg oral tablet 100 mg, 1, tablet, By Mouth, Daily, # 90 tablet, Refills 1, Tot. Refills 1, Maintenance, 05/24/22 10:31:00 EDT, Route to Pharmacy Electronically, [facility] #[id number], Partial fill upon patient request if the prescription is for a schedule II o... Start Date: 05/24/22 Stop Date: 11/20/22 Status: Ordered trospium 60 mg oral capsule, extended release 1 capsule = 60 mg, By Mouth, Daily in AM, # 90 capsule, 0 Refills, Maintenance, 05/11/22 7:11:00 EDT, [facility] #[id number], Partial fill upon patient request if the [...] 11 Refills, Maintenance, 03/15/22 10:32:00 EDT, Powder, [facility] #[id number], Partial fill upon patient request if the [...] and tingling in hands Confirmed Active *[facility] [phone] [employer] HELEN ROWDY Confirmed Active Hepatitis C virus [...] Name: Rj HAMILTON, Winsome Weiss Address: Address: [address] [place] [id number]
--- OUTSIDE RECORDS SUMMARY | 2023-03-06 14:52 | XMS_ITS ---
Author Name Sanket Garcia Address [address] [place] [address] Organization [facility] Address [address] [place] [address] Care Team Providers Care Technology Development Intern Name Role Phone Sanket Garcia Unavailable [phone] PROBLEMS Type Condition ICD9-CM Code OGU92-[id number] Code Onset Dates Condition Status SNOMED Code Problem Elevated alpha-fetoprotein R77.2 Active Problem Other cirrhosis of liver K74.69 Active 67396440 Problem Chronic hepatitis C without hepatic coma B18.2 Active 9136354 06 Problem Other ascites R18.8 Active 224125226 Problem Gallstones K80.20 Active 230439496 Problem Cirrhosis of liver with ascites K74.60 Active Problem Cirrhosis K74.60 Active 478442178 Problem Gastroesophageal reflux disease, esophagitis presence not specified K21.9 Active 560526545 Problem History of hepatitis C Z86.19 Active [id number] Problem Secondary esophageal varices without bleeding I85.10 Active 92639779 ALLERGIES Substance Reaction Event Type Date Status Bee Sting anaphylaxis Drug Allergy December, Active Penicillin hives Drug Allergy December, Active Aspirin Unknown Drug Allergy December, Active ENCOUNTERS Encounter Location Date Diagnosis [facility] [address] [place] [address] December, Cirrhosis of liver with ascites K74.60 [facility] [address] [place] [address] December, Other cirrhosis of liver K74.69 ; History of hepatitis C Z86.19 ; Other ascites R18.8 and Secondary esophageal varices without bleeding I85.10 [facility] [address] [place] [address] Oct, [facility] [address] [place] [address] Jul, Other cirrhosis of liver K74.69 and History of hepatitis C Z86.19 [facility] [address] [place] [address] Feb, [facility] [address] [place] [address] May, [facility] [address] [place] [address] Nov, [facility] [address] [place] [address] Nov, Cirrhosis K74.60 ; Chronic hepatitis C without hepatic coma B18.2 ; Elevated alpha-fetoprotein R77.2 and Gastroesophageal reflux disease, esophagitis presence not specified K21.9 [facility] [address] [place] [address] May, Chronic hepatitis C without hepatic coma B18.2 ; Cirrhosis K74.60 and Elevated alpha-fetoprotein R77.2 [facility] [address] [place] [address] Feb, [facility] [address] [place] [address] Jan, [facility] [address] [place] [address] Jan, [facility] [address] [place] [address] Nov, Chronic hepatitis C without hepatic coma B18.2 ; Cirrhosis K74.60 and Elevated alpha-fetoprotein R77.2 [facility] [address] [place] [address] May, Chronic hepatitis C without hepatic coma B18.2 ; Cirrhosis K74.60 and Elevated alpha-fetoprotein R77.2 [facility] [address] [place] [address] May, Chronic hepatitis C without hepatic coma B18.2 ; Other cirrhosis of liver K74.69 ; Elevated alpha-fetoprotein R77.2 and Gallstones K80.20 [facility] [address] [place] [address] Mar, Chronic hepatitis C 070.54 [facility] [address] [place] [address] Jan, [facility] [address] [place] [address] Oct, Chronic hepatitis C 070.54 [facility] [address] [place] [address] Oct, [facility] [address] [place] [address] Oct, [facility] [address] [place] [address] Oct, Cirrhosis of liver due to hepatitis C 070.54 and Hypertension 401.9 [facility] [address] [place] [address] Apr, [facility] [address] [place] [address] Apr, Cirrhosis of liver due to hepatitis C 070.54 and Elevated alpha fetoprotein 790.99 [facility] [address] [place] [address] Apr, Chronic hepatitis C 070.54 ; GERD (gastroesophageal reflux disease) 530.81 ; Constipation 564.00 ; Cirrhosis of liver due to hepatitis C 070.54 ; Gallstones 574.20 and Abdominal pain, right upper quadrant 789.01 [facility] [address] [place] [address] 14 Oct, 2013 Chronic hepatitis C 070.54 ; GERD (gastroesophageal reflux disease) 530.81 ; Constipation 564.00 and Cirrhosis of liver due to hepatitis C 070.54 [facility] [address] [place] [address] Aug, [facility] Outpatient [address] [place] [phone] Jun, [facility] [address] [place] [address] Apr, Chronic hepatitis C 070.54 ; GERD (gastroesophageal reflux disease) 530.81 ; Constipation 564.00 and Cirrhosis of liver due to hepatitis C 070.54 [facility] [address] [place] [address] Feb, [facility] [address] [place] [address] Feb, [facility] [address] [place] [address] Feb, [facility] [address] [place] [address] Jan, [facility] [address] [place] [address] Jan, Chronic hepatitis C 070.54 ; Anemia 285.9 and Fatigue 780.79 [facility] [address] [place] [address] Nov, Chronic hepatitis C 070.54 and Encounter for long-term (current) use of other high-risk medications V58.69 [facility] [address] [place] [address] Nov, Chronic hepatitis C 070.54 [facility] [address] [place] [address] Nov, [facility] [address] [place] [address] Nov, [facility] [address] [place] [address] Oct, [facility] [address] [place] [address] Sep, Chronic hepatitis C without mention of hepatic coma 070.54 ; Cirrhosis 571.5 and Gallstones 574.20 [facility] [address] [place] [address] Aug, [facility] [address] [place] [address] Jul, Chronic hepatitis C without mention of hepatic coma 070.54 ; Cirrhosis 571.5 ; Other abnormal tumor markers 795.89 and Blood in stool 578.1 [facility] [address] [place] [address] Apr, Chronic hepatitis C 070.54 ; Cirrhosis 571.5 and Other malaise and fatigue 780.79 [facility] [address] [place] [address] Jan, [facility] [address] [place] [address] Jan, [facility] [address] [place] [address] Jan, Chronic hepatitis C 070.54 and Nonspecific abnormal results of liver function study 794.8 IMMUNIZATIONS Vaccine Route Administration Date Status Influenza Unknown Apr 12, 2016 Administered Influenza Unknown Mar 12, 2015 Administered Flu vaccine no Preserv 3 and > Unknown May 26 14 Administered SOCIAL HISTORY Never Assessed REASON FOR REFERRAL FUNCTIONAL STATUS PLAN OF CARE Activity Details VITAL SIGNS Weight 191 lbs 2021-12-12 Weight 231 lbs 2016-12-04 Weight 234 lbs 2016-06-05 Weight 231 lbs 2015-12-06 Weight 221 lbs 2015-05-31 Weight 217 lbs 2014-10-12 Weight 215 lbs 2014-04-30 Weight 210 lbs 2013-10-23 Weight 204 lbs 2013-05-08 Weight 213 lbs 2013-01-20 Weight 220 lbs 2012-10-07 Weight 218 lbs 2012-05-08 Weight 219 lbs 2012-01-25 Height 58.5 in 2021-12-12 Height 58.5 in 2016-12-04 Height 58.5 in 2016-06-05 Height 58.5 in 2015-12-06 Height 58.5 in 2015-05-31 Height 58.5 in 2014-10-12 Height 58.5 in 2014-04-30 Height N/A in 2013-10-23 Height N/A in 2013-05-08 Height N/A in 2013-01-20 Height N/A in 2012-10-07 Height N/A in 2012-05-08 Height 58.5 in 2012-01-25 BMI 39.24 kg/m2 2021-12-12 BMI 47.45 kg/m2 2016-12-04 BMI 48.07 kg/m2 2016-06-05 BMI 47.45 kg/m2 2015-12-06 BMI 45.40 kg/m2 2015-05-31 BMI 44.58 kg/m2 2014-10-12 BMI 44.17 kg/m2 2014-04-30 BMI 43.14 kg/m2 2013-10-23 BMI 41.91 kg/m2 2013-05-08 BMI 43.75 kg/m2 2013-01-20 BMI 45.19 kg/m2 2012-10-07 BMI 44.78 kg/m2 2012-05-08 BMI 44.99 kg/m2 2012-01-25 Heart Rate 72 /min 2016-12-04 Heart Rate 68 /min 2014-04-30 Heart Rate 84 /min 2013-10-23 Heart Rate 72 /min 2013-05-08 Heart Rate 68 /min 2012-01-25 Temperature 97.5 degrees Fahrenheit Blood pressure systolic 000 mm Hg Blood pressure diastolic 00 mm Hg 2021-12 MEDICATIONS Medication Instructions Dosage Frequency Start Date End Date Duration Status Escitalopram Oxalate 20 MG TAKE 1 TABLET BY MOUTH DAILY 90 Active Lantus SoloStar 100 UNIT/ML 88 Active Pantoprazole Sodium 40 MG 90 Active Senna 8.6 MG TAKE 2 TABLETS BY MOUTH DAILY AT BEDTIME 7 Active Ferrous Sulfate 325 (65 Fe) MG TAKE 1 TABLET BY MOUTH DAILY 30 Active Furosemide 20 MG 90 Active Gabapentin 100 MG TAKE 2 CAPSULES BY MOUTH THREE TIMES DAILY 30 Active Spironolactone 100 MG 90 Active Incruse Ellipta 62.5 MCG/INH INHALE 1 PUFF BY MOUTH EVERY 24 HOURS DOSES SHOULD BE TAKEN AT LEAST 24 HOURS APART 30 Active Levothyroxine Sodium 25 MCG 90 Active Breo Ellipta 200-25 MCG/INH INHALE 1 PUFF BY MOUTH DAILY 30 Active NovoLOG FlexPen 100 UNIT/ML 30 Active Lisinopril 20 MG 90 Active Nadolol 20 MG TAKE 1 TABLET BY MOUTH DAILY 90 Active Isosorbide Mononitrate ER 30 MG 30 Active LORazepam 0.5 MG 24 Active PROCEDURES Procedure Date Ordered Result Body Site DOC MEDS VERIFIED W/PT OR RE Jun 05, 2016 DOC MEDS VERIFIED W/PT OR RE May 31, 2015 TOBACCO NON-USER October 12, 2014 DOC MEDS VERIFIED W/PT OR RE December 06, 2015 DOC MEDS VERIFIED W/PT OR RE October 12, 2014 BP SCR NOT PRFRM REC REASON NOS December 12, 2021 COLORECTAL CA SCREEN DOC REV December 12, 2021 TOBACCO NON-USER Jun 05, 2016 FLU IMMUNIZE ORDER/ADMIN October 12, 2014 TOBACCO NON-USER May 31, 2015 TOBACCO NON-USER December 04, 2016 TOBACCO NON-USER December 06, 2015 DOC MEDS VERIFIED W/PT OR RE October 23, 2013 PT NOT RECVNG ANTIV HEP C May 08, 2012 FLU IMMUNIZE ORDER/ADMIN December 04, 2016 FLU IMMUNIZE ORDER/ADMIN December 06, 2015 BMI >=30 CALCUATE W/FOLLOWUP May 31, 2015 BMI >=30 CALCUATE W/FOLLOWUP October 12, 2014 PT REC ANTIVIR TREAT HEP C January 20, 2013 BMI >=30 CALCUATE W/FOLLOWUP Jun 05, 2016 PT INELIG RNA NO ANTVIR [place] January 25, 2012 TOBACCO NON-USER December 12, 2021 BMI >=30 CALCUATE W/FOLLOWUP December 04, 2016 BMI >=30 CALCUATE W/FOLLOWUP December 06, 2015 PT INELIG RNA NO ANTVIR TX May 08, 2013 DOC MEDS VERIFIED W/PT OR RE December 04, 2016 COLORECTAL CA SCREEN DOC REV December 04, 2016 COLORECTAL CA SCREEN DOC REV December 06, 2015 PT INELIG ABDULLAHI NO ANTVIR TX May 08, 2013 COLORECTAL CA SCREEN DOC REV October 12, 2014 PT INELIG ABDULLAHI NO ANTVIR TX January 25, 2012 COLORECTAL CA SCREEN DOC REV May 31, 2015 PT INELIG ABDULLAHI NO ANTVIR TX May 08, 2012 PT INELIG ABDULLAHI NO ANTVIR TX Oct 07, 2012 HEP C QUANT RNA TSTNG DOCD Oct 07, 2012 PT INELIG RNA NO ANTVIR TX May 08, 2012 BP SCR PRFRM RCMDD DEFIND SCR INTVL December 04, 2016 BP SCR PRFRM RCMDD DEFIND SCR INTVL December 06, 2015 BP SCR PRFRM RCMDD DEFIND SCR INTVL October 12, 2014 FLU IMMUNIZE ORDER/ADMIN Jun 05, 2016 FLU IMMUNIZE ORDER/ADMIN May 31, 2015 PT NOT RECVNG ANTIV HEP C January 25, 2012 BP SCR PRFRM RCMDD DEFIND SCR INTVL Jun 05, 2016 BP SCR PRFRM RCMDD DEFIND SCR INTVL May 31, 2015 RNA TSTNG HEP C DOCD-DONE Oct 07, 2012 PT NOT RECVNG ANTIV HEP C May 08, 2013 RNA TSTNG HEP C DOCD-DONE January 20, 2013 DOC MEDS VERIFIED W/PT OR RE Apr 30, 2014 DOC MEDS VERIFIED W/PT OR RE December 12, 2021 HEPC GN TSTNG DOCD [id number] January 20, 2013 COLORECTAL CA SCREEN DOC REV Jun 05, 2016 RESULTS Name Result Date Reference Range US ABD 2018-10-02 LIVER PROFILE 2016-12-04 PROTEIN, TOTAL 7.3 6.5-8.0 ALBUMIN 3.8 3.5-5.0 BILIRUBIN, TOTAL 0.8 0.0-1.0 BILIRUBIN, DIRECT 0.3 0.0-0.5 ALK. PHOS. 116 39-117 GOT 23 5-31 GPT 14 0-31 CBC w DIFF 2016-12-04 WBC 3.8 4.8-10.8 ABSOLUTE NEUTROPHIL COUNT 2.4 2. 2-7.9 RBC 3.87 4.20-5.50 HEMOGLOBIN 11.0 12.0-16.0 HEMATOCRIT 34.3 37-47 MCV 88.6 80-98 MCH 28.3 27.0-33.0 MCHC 32.0 31.0-35.0 PLATELET COUNT 89 160-400 RDW 13.8 11.0-16.0 NEUTROPHILS 64.1 45-73 LYMPHOCYTES 24.8 20-40 MONOCYTES 6.5 2-11 EOSINOPHILS 2.8 0-4 BASOPHILS 1.8 0-2 PROTHROMBIN TIME (PT, INR) 2016-12-04 INTERNATIONAL NORM. RATIO 1.2 SE E NOTE PROTHROMBIN TIME 14.3 10.1-13.8 ALPHA-FETOPROTEIN,TUMOR MARKER 2016-12-04 ALPHA-FETOPROTEIN,TUMOR MARKER 10.4 <6.1 US ABD 2016-12-26 ALPHA-FETOPROTEIN,TUMOR MARKER 2015-05-31 ALPHA-FETOPROTEIN,TUMOR MARKER 14.7 <6.1 HEPATITIS C VIRAL LOAD 2015-05-31 HEP C VIRAL LOAD <15 <15 HCV LOG PCR <1.18 <1.18 US ABD 2015-06-07 LIVER PROFILE 2014-10-12 PROTEIN, TOTAL 7.3 6.5-8.0 ALBUMIN 3.5 3.5-5.0 BILIRUBIN, TOTAL 0.9 0.0-1.0 BILIRUBIN, DIRECT 0.4 0.0-0.5 ALK. PHOS. 70 39-117 GOT 32 5-31 GPT 18 0-31 AMMONIA 2014-10-12 AMMONIA 27 13-55 CBC w DIFF 2014-10-12 WBC 3.9 4.8-10.8 ABSOLUTE NEUTROPHIL COUNT 1.7 2. 2-7.9 RBC 3.97 4.20-5.50 HEMOGLOBIN 9.7 12.0-16.0 HEMATOCRIT 30.3 37-47 MCV 76.4 80-98 MCH 24.4 27.0-33.0 MCHC 32.0 31.0-35.0 PLATELET COUNT 97 160-400 RDW 17.2 11.0-16.0 NEUTROPHILS 44.4 45-73 LYMPHOCYTES 43.9 20-40 MONOCYTES 6.6 2-11 EOSINOPHILS 3.1 0-4 BASOPHILS 2.0 0-2 PROTHROMBIN TIME (PT, INR) 2014-10-12 INTERNATIONAL NORM. RATIO 1.2 SE E NOTE PROTHROMBIN TIME 13.9 10.1-13.1 HEPATITIS C VIRAL LOAD 2014-10-12 HEP C VIRAL LOAD [id number] <15 HCV LOG PCR 6.42 <1.18 FIBROSPECT SM II 2014-10-12 FIBROSPECT SM II SEE NOTE () MRI ABDOMEN WOW CONT 2014-05-12 HIDA SCAN W/WO GALL BLADDER 2014-05-05 BUN 2014-05-10 BUN 5 9-16 CREATININE 2014-05-10 CREATININE 0.68 0.5-1.4 ESTIMATED GFR >60 LIVER PROFILE 2014-04-30 PROTEIN, TOTAL 7.6 6.5-8.0 ALBUMIN 3.4 3.5-5.0 BILIRUBIN, TOTAL 1.2 0.0-1.0 BILIRUBIN, DIRECT 0.5 0.0-0.5 ALK. PHOS. 115 39-117 GOT 74 <3-31 GPT 39 <6-31 CBC w DIFF 2014-04-30 WBC 4.6 4.8-10.8 ABSOLUTE NEUTROPHIL COUNT 2.1 2. 2-7.9 RBC 4.24 4.20-5.50 HEMOGLOBIN 11.3 12.0-16.0 HEMATOCRIT 35.5 37-47 MCV 83.7 80-98 MCH 26.7 27.0-33.0 MCHC 31.9 31.0-35.0 PLATELET COUNT 81 160-400 RDW 17.0 11.0-16.0 NEUTROPHILS 45.3 45-73 LYMPHOCYTES 42.4 20-40 MONOCYTES 7.8 2-11 EOSINOPHILS 2.6 0-4 BASOPHILS 1.9 0-2 PROTHROMBIN TIME (PT, INR) 2014-04-30 INTERNATIONAL NORM. RATIO 1.3 SE E NOTE PROTHROMBIN TIME 14.6 10.1-13.1 ALPHA-FETOPROTEIN,TUMOR MARKER 2014-04-30 ALPHA-FETOPROTEIN,TUMOR MARKER 22.0 <6.1 LIVER PROFILE 2013-11-02 PROTEIN, TOTAL 7.7 6.5-8.0 ALBUMIN 3.7 3.5-5.0 BILIRUBIN, TOTAL 1.1 0.0-1.0 BILIRUBIN, DIRECT 0.5 0.0-0.5 ALK. PHOS. 85 39-117 GOT 29 <3-31 GPT 21 <6-31 CBC w DIFF 2013-11-02 WBC 6.5 4.8-10.8 ABSOLUTE NEUTROPHIL COUNT 5.0 2. 2-7.9 RBC 4.28 4.20-5.50 HEMOGLOBIN 11.8 12.0-16.0 HEMATOCRIT 36.1 37-47 MCV 84.4 80-98 MCH 27.6 27.0-33.0 MCHC 32.7 31.0-35.0 PLATELET COUNT 120 160-400 RDW 13.8 11.0-16.0 NEUTROPHILS 77.0 45-73 LYMPHOCYTES 18.7 20-40 MONOCYTES 3.2 2-11 EOSINOPHILS 0.4 0-4 BASOPHILS 0.8 0-2 PROTHROMBIN TIME (PT, INR) 2013-11-02 INTERNATIONAL NORM. RATIO 1.2 SE E NOTE PROTHROMBIN TIME 13.4 10.1-13.1 ALPHA-FETOPROTEIN,TUMOR MARKER 2013-11-02 ALPHA-FETOPROTEIN,TUMOR MARKER 16.0 <6.1 US ABD 2013-11-02 ALPHA-FETOPROTEIN,TUMOR MARKER 2013-05-08 ALPHA-FETOPROTEIN,TUMOR MARKER 18.5 <6.1 LIVER PROFILE 2013-05-04 PROTEIN, TOTAL 7.2 6.5-8.0 ALBUMIN 3.6 3.5-5.0 BILIRUBIN, TOTAL 1.2 0.0-1.0 BILIRUBIN, DIRECT 0.6 0.0-0.5 ALK. PHOS. 90 39-117 GOT 49 <3-31 GPT 24 <6-31 T4 (THYROXINE) 2013-05-04 T4 6.9 4.5-12.0 TSH (THYROID STIMULATING HORMONE) 2013-04 TSH 2.04 0.32-4.0 CBC w DIFF 2013-05-04 WBC 3.8 4.8-10.8 ABSOLUTE NEUTROPHIL COUNT 2.1 2. 2-7.9 RBC 3.83 4.20-5.50 HEMOGLOBIN 11.0 12.0-16.0 HEMATOCRIT 35.1 37-47 MCV 91.5 80-98 MCH 28.7 27.0-33.0 MCHC 31.4 31.0-35.0 PLATELET COUNT 118 160-400 RDW 12.7 11.0-16.0 NEUTROPHILS 54.5 45-73 LYMPHOCYTES 32.4 20-40 MONOCYTES 7.9 2-11 EOSINOPHILS 3.9 0-4 BASOPHILS 1.3 0-2 HEPATITIS C VIRAL LOAD 2013-05-04 HEP C VIRAL LOAD [id number] <15 HCV LOG PCR 6.45 <1.18 LIVER PROFILE 2013-02-16 PROTEIN, TOTAL 6.8 6.5-8.0 ALBUMIN 3.1 3.5-5.0 BILIRUBIN, TOTAL 1.3 0.0-1.0 BILIRUBIN, DIRECT 0.7 0.0-0.5 ALK. PHOS. 103 39-117 GOT 32 <3-31 GPT 17 <6-31 T4 (THYROXINE) 2013-02-16 T4 7.3 4.5-12.0 TSH (THYROID STIMULATING HORMONE) 2013-02 TSH 2.40 0.32-4.0 CBC w DIFF 2013-02-16 WBC 3.7 4.8-10.8 ABSOLUTE NEUTROPHIL COUNT 2.0 2. 2-7.9 RBC 2.90 4.20-5.50 HEMOGLOBIN 9.2 12.0-16.0 HEMATOCRIT 30.0 37-47 MCV 103.6 80-98 MCH 31.8 27.0-33.0 MCHC 30.7 31.0-35.0 PLATELET COUNT 101 160-400 RDW 15.1 11.0-16.0 NEUTROPHILS 53.7 45-73 LYMPHOCYTES 37.3 20-40 MONOCYTES 7.8 2-11 EOSINOPHILS 0.1 0-4 BASOPHILS 1.1 0-2 HEPATITIS C VIRAL LOAD 2013-02-16 HEP C VIRAL LOAD [id number] <43 HCV LOG PCR 4.41 <1.63 CBC w DIFF 2013-01-20 WBC 4.2 4.8-10.8 ABSOLUTE NEUTROPHIL COUNT 1.9 2. 2-7.9 RBC 3.24 4.20-5.50 HEMOGLOBIN 10.1 12.0-16.0 HEMATOCRIT 33.0 37-47 MCV 101.7 80-98 MCH 31.2 27.0-33.0 MCHC 30.6 31.0-35.0 PLATELET COUNT 95 160-400 RDW 15.7 11.0-16.0 NEUTROPHILS 44.9 45-73 LYMPHOCYTES 46.7 20-40 MONOCYTES 5.9 2-11 EOSINOPHILS 1.7 0-4 BASOPHILS 0.8 0-2 LIVER PROFILE 2013-01-13 PROTEIN, TOTAL 6.6 6.5-8.0 ALBUMIN 3.1 3.5-5.0 BILIRUBIN, TOTAL 1.8 0.0-1.0 BILIRUBIN, DIRECT 0.9 0.0-0.5 ALK. PHOS. 92 39-117 GOT 24 <3-31 GPT 15 <6-31 T4 (THYROXINE) 2013-01-13 T4 8.0 4.5-12.0 TSH (THYROID STIMULATING HORMONE) 2013-01 TSH 3.76 0.32-4.0 CBC w DIFF 2013-01-13 WBC 4.5 4.8-10.8 ABSOLUTE NEUTROPHIL COUNT 2.7 2. 2-7.9 RBC 2.91 4.20-5.50 HEMOGLOBIN 9.0 12.0-16.0 HEMATOCRIT 29.1 37-47 MCV 99.9 80-98 MCH 31.0 27.0-33.0 MCHC 31.1 31.0-35.0 PLATELET COUNT 107 160-400 RDW 16.2 11.0-16.0 NEUTROPHILS 60.1 45-73 LYMPHOCYTES 32.0 20-40 MONOCYTES 6.2 2-11 EOSINOPHILS 0.9 0-4 BASOPHILS 0.8 0-2 HEPATITIS C VIRAL LOAD 2013-01-13 HEP C VIRAL LOAD 40528 <43 HCV LOG PCR 4.99 <1.63 LIVER PROFILE 2012-12-23 PROTEIN, TOTAL 6.7 6.5-8.0 ALBUMIN 3.1 3.5-5.0 BILIRUBIN, TOTAL 2.2 0.0-1.0 BILIRUBIN, DIRECT 1.2 0.0-0.5 ALK. PHOS. 80 39-117 GOT 37 <3-31 GPT 22 <6-31 T4 (THYROXINE) 2012-12-23 T4 9.7 4.5-12.0 TSH (THYROID STIMULATING HORMONE) 2012-12 TSH 1.83 0.32-4.0 CBC w DIFF 2012-12-23 WBC 2.9 4.8-10.8 ABSOLUTE NEUTROPHIL COUNT 1.1 2. 2-7.9 RBC 3.29 4.20-5.50 HEMOGLOBIN 9.9 12.0-16.0 HEMATOCRIT 30.9 37-47 MCV 94.0 80-98 MCH 30.2 27.0-33.0 MCHC 32.2 31.0-35.0 PLATELET COUNT 83 160-400 RDW 15.4 11.0-16.0 NEUTROPHILS 39.1 45-73 LYMPHOCYTES 51.1 20-40 MONOCYTES 8.0 2-11 EOSINOPHILS 0.8 0-4 BASOPHILS 1.0 0-2 HEPATITIS C VIRAL LOAD 2012-12-23 HEP C VIRAL LOAD 32230 <43 HCV LOG PCR 4.85 <1.63 LIVER PROFILE 2012-12-16 PROTEIN, TOTAL 6.7 6.5-8.0 ALBUMIN 2.9 3.5-5.0 BILIRUBIN, TOTAL 2.7 0.0-1.0 BILIRUBIN, DIRECT 1.4 0.0-0.5 ALK. PHOS. 101 39-117 GOT 42 <3-31 GPT 28 <6-31 T4 (THYROXINE) 2012-12-16 T4 8.7 4.5-12.0 TSH (THYROID STIMULATING HORMONE) 2012-12 TSH 1.38 0.32-4.0 CBC w DIFF 2012-12-16 WBC 3.0 4.8-10.8 ABSOLUTE NEUTROPHIL COUNT 1.1 2. 2-7.9 RBC 3.65 4.20-5.50 HEMOGLOBIN 11.0 12.0-16.0 HEMATOCRIT 33.6 37-47 MCV 91.9 80-98 MCH 30.1 27.0-33.0 MCHC 32.7 31.0-35.0 PLATELET COUNT 78 160-400 RDW 13.9 11.0-16.0 NEUTROPHILS 36.5 45-73 LYMPHOCYTES 53.5 20-40 MONOCYTES 7.2 2-11 EOSINOPHILS 1.2 0-4 BASOPHILS 1.5 0-2 HEPATITIS C VIRAL LOAD 2012-12-16 HEP C VIRAL LOAD [id number] <43 HCV LOG PCR 5.10 <1.63 LIVER PROFILE 2012-12-09 PROTEIN, TOTAL 7.5 6.5-8.0 ALBUMIN 3.1 3.5-5.0 BILIRUBIN, TOTAL 2.9 0.0-1.0 BILIRUBIN, DIRECT 1.4 0.0-0.5 ALK. PHOS. 103 39-117 GOT 50 <3-31 GPT 32 <6-31 T4 (THYROXINE) 2012-12-09 T4 8.1 4.5-12.0 TSH (THYROID STIMULATING HORMONE) 2012-11 TSH 2.79 0.32-4.0 CBC w DIFF 2012-12-09 WBC 5.0 4.8-10.8 ABSOLUTE NEUTROPHIL COUNT 1.8 2. 2-7.9 RBC 4.38 4.20-5.50 HEMOGLOBIN 13.4 12.0-16.0 HEMATOCRIT 40.5 37-47 MCV 92.5 80-98 MCH 30.6 27.0-33.0 MCHC 33.1 31.0-35.0 PLATELET COUNT 89 160-400 RDW 12.9 11.0-16.0 NEUTROPHILS 36.7 45-73 LYMPHOCYTES 53.8 20-40 MONOCYTES 7.2 2-11 EOSINOPHILS 1.1 0-4 BASOPHILS 1.3 0-2 HEPATITIS C VIRAL LOAD 2012-12-09 HEP C VIRAL LOAD [id number] <43 HCV LOG PCR 5.78 <1.63 LIVER PROFILE 2012-10-07 PROTEIN, TOTAL 7.7 6.5-8.0 ALBUMIN 3.3 3.5-5.0 BILIRUBIN, TOTAL 1.2 0.0-1.0 BILIRUBIN, DIRECT 0.6 0.0-0.5 ALK. PHOS. 85 39-117 GOT 61 <3-31 GPT 32 <6-31 T4 (THYROXINE) 2012-10-07 T4 7.6 4.5-12.0 TSH (THYROID STIMULATING HORMONE) 2012-09 TSH 3.27 0.32-4.0 CBC w DIFF 2012-10-07 WBC 4.6 4.8-10.8 ABSOLUTE NEUTROPHIL COUNT 2.3 2. 2-7.9 RBC 3.81 4.20-5.50 HEMOGLOBIN 12.8 12.0-16.0 HEMATOCRIT 34.2 37-47 MCV 89.8 80-98 MCH 33.7 27.0-33.0 MCHC 37.6 31.0-35.0 PLATELET COUNT 110 160-400 RDW 13.1 11.0-16.0 NEUTROPHILS 49.9 45-73 LYMPHOCYTES 39.9 20-40 MONOCYTES 6.0 2-11 EOSINOPHILS 3.0 0-4 BASOPHILS 1.1 0-2 HEPATITIS C VIRAL LOAD 2012-10-07 HEP C VIRAL LOAD [id number] <43 HCV LOG PCR 5.97 <1.63 MRI ABDOMEN WOW CONT 2012-09-03 BUN 2012-09-02 BUN 10 9-16 CREATININE 2012-09-02 CREATININE 0.75 0.5-1.4 ESTIMATED GFR >60 LIVER PROFILE 2012-09-02 PROTEIN, TOTAL 7.6 6.5-8.0 ALBUMIN 3.2 3.5-5.0 BILIRUBIN, TOTAL 1.3 0.0-1.0 BILIRUBIN, DIRECT 0.6 0.0-0.5 ALK. PHOS. 94 39-117 GOT 69 <3-31 GPT 45 <6-31 CBC w DIFF 2012-09-02 WBC 6.1 4.8-10.8 ABSOLUTE NEUTROPHIL COUNT 3.3 2. 2-7.9 RBC 4.51 4.20-5.50 HEMOGLOBIN 12.9 12.0-16.0 HEMATOCRIT 40.3 37-47 MCV 89.3 80-98 MCH 28.7 27.0-33.0 MCHC 32.1 31.0-35.0 PLATELET COUNT 108 160-400 RDW 13.1 11.0-16.0 NEUTROPHILS 53.9 45-73 LYMPHOCYTES 34.8 20-40 MONOCYTES 5.8 2-11 EOSINOPHILS 3.7 0-4 BASOPHILS 1.8 0-2 PROTHROMBIN TIME (PT, INR) 2012-09-02 INTERNATIONAL NORM. RATIO 1.2 SE E NOTE PROTHROMBIN TIME 13.6 10.2-13.2 CBC w DIFF 2012-05-08 WBC 5.2 4.8-10.8 ABSOLUTE NEUTROPHIL COUNT 2.3 2. 2-7.9 RBC 4.28 4.20-5.50 HEMOGLOBIN 12.2 12.0-16.0 HEMATOCRIT 38.1 37-47 MCV 88.9 80-98 MCH 28.4 27.0-33.0 MCHC 31.9 31.0-35.0 PLATELET COUNT 128 160-400 RDW 13.1 11.0-16.0 NEUTROPHILS 44.4 45-73 LYMPHOCYTES 41.5 20-40 MONOCYTES 5.2 2-11 EOSINOPHILS 7.4 0-4 BASOPHILS 1.5 0-2 LIVER PROFILE 2012-05-08 PROTEIN, TOTAL 7.8 6.5-8.0 ALBUMIN 3.6 3.5-5.0 BILIRUBIN, TOTAL 0.8 0.0-1.0 BILIRUBIN, DIRECT 0.4 0.0-0.5 ALK. PHOS. 84 39-117 GOT 54 <3-31 GPT 28 <6-31 TSH (THYROID STIMULATING HORMONE) 2012-04 TSH 3.07 0.32-4.0 T4 (THYROXINE) 2012-05-08 T4 8.3 4.5-12.0 ALPHA-FETOPROTEIN,TUMOR MARKER 2012-05-08 ALPHA-FETOPROTEIN,TUMOR MARKER 19.2 <6.1 HEPATITIS C VIRAL LOAD 2012-05-08 HEP C VIRAL LOAD [id number] <43 HCV LOG PCR 6.45 <1.63 LIVER BIOPSY 2012-02-07 LIVER BIOPSY CBC w DIFF 2012-02-07 WBC 5.1 4.8-10.8 ABSOLUTE NEUTROPHIL COUNT 2.2 2. 2-7.9 RBC 4.30 4.20-5.50 HEMOGLOBIN 11.9 12.0-16.0 HEMATOCRIT 36.2 37-47 MCV 84.2 80-98 MCH 27.7 27.0-33.0 MCHC 32.9 31.0-35.0 PLATELET COUNT 129 160-400 RDW 14.0 11.0-16.0 NEUTROPHILS 42.0 45-73 LYMPHOCYTES 45.2 20-40 MONOCYTES 7.3 2-11 EOSINOPHILS 3.8 0-4 BASOPHILS 1.7 0-2 PROTHROMBIN TIME (PT, INR) 2012-02-07 INTERNATIONAL NORM. RATIO 1.2 SE E NOTE PROTHROMBIN TIME 14.0 10.2-13.2 US BIOPSY NEEDLE GUIDE 2012-02-07 REASON FOR VISIT Patient presents today for cirrhosis, Patient [facility], pt been in hospital for week and half, abd pain, Cancel OV 08/14/18/update. daughter called back., no show, Patient presents today for recall, Zantac , Put one one year OV follow up, patient presents today for 6 month f/u, 6 month f/u, Winsome De La Rosa requesting medical clearance for surgery , Medically Cleared?/Wants call back., requesting refill on ranitidine, 6 month f/u, follow up, HEP C, acid reflux, Adalberto APPROVED, follow up, Lamonte SAM, Put on colon recall for January 2017, follow up, no show, follow up, 6 month f/u, form to be filled out, 2 MONTH FOLLOW, 2 MONTH, Peterson, sick, Needs to be seen, Pt sick from new Meds, f/u Hep C treatment, Peg-intron teaching, Peg- intron teaching, needs to have pt hep c paper filled out, Rx, cirrhosis, Rectal bleeding and hep C treatment, 2 month follow up, H&P, HEP C Insurance Providers Health Insurance Type Health Plan Insurance Address Health Plan Insurance Phone Health Plan Insurance Name Health Plan Coverage Dates Member ID Patient Relationship to Subscriber Patient Address Patient Phone Patient Name Patient Date of Subscriber ID Subscriber Name Subscriber Date of Group No [employer] [address] [facility] [phone] [employer] self NUVIA JANICE S [id number] [place] OF [place] [address] [facility] [address] [place] self NUVIA JANICE S [id number] MEDICAID OF [employer] [address] [place] [address] [facility] self NUVIA JANICE S [id number]
--- OUTSIDE RECORDS SUMMARY | 2023-03-06 14:52 | XMS_ITS | Continuity of Care Document ---
Author Name Unknown Organization [facility] Address [address] [place] [phone]- Care Team Providers Care Bottom Precipitator Operator Name Role Phone Rj BARREL BRIDGE ASSEMBLER, Winsome Weiss Primary Care Physician Encounter [facility] Date(s): 01/19/22 - 02/18/22 [facility] [address] [place] [address]- [place] Allergies, Adverse Reactions, Alerts Substance Reaction [...] 2Location History: [facility] 3Admin Note: given at [facility] in [place], [place] 4Result Comment: [07/11/2018] [facility] 5Result Comment: [11/11/2015] given at [facility] [address] [place] [address] [phone] [facility] 7Admin Note: boostrix vis 12-28-2012 Medications albuterol [...] 01/19/22 19:16:00 EDT, Route to Pharmacy Electronically, [facility][id number], Partial fill upon patientrequest if the prescription is for a schedule II op... Start Date: 01/19/22 Status: Ordered escitalopram 20 mg oral tablet 1 tablet = 20 mg, By Mouth, Daily, # 90 tablet, 1 Refills, Maintenance, 11/29/21 7:27:00 EDT, Tablet, [facility] #[id number], 150, cm, 11/03/21 13:46:00 EDT, Height, 100.8, kg, 11/01/21 22:19:00EDT, Dry Weight Start Date: 11/29/21 Stop Date: 05/28/22 Status: Ordered furosemide 20 mg oral tablet 20 mg, 1, tablet, By Mouth, 2 times a day, # 180 tablet, Refills 1, Tot. Refills 1, Maintenance, 12/01/21 16:35:00 EDT, Route to Pharmacy Electronically, [facility] #[id number], Partial fill upon patient request if the prescription is for a sched... Start Date: 12/01/21 Stop Date: 05/30/22 Status: Ordered gabapentin 100 mg oral capsule 200 mg, 2, capsule, By Mouth, 3 times a day, 2 capsules to equal 200 mg three times a day., # 180 capsule, Refills 3, Tot. Refills 3, Maintenance, 12/05/21 20:30:00 EDT, Route to Pharmacy Electronically, [facility] #[id number], Partial fill upon... Start Date: 12/05/21 Status: [...] mL, 3 Refills, Maintenance, 11/29/21 21:45:00 EDT, [facility] #[id number], Partial fill upon patient request if the prescriptionis for a schedule II opioid drug., 150, cm, ... Start Date: 11/29/21 Status: Ordered levothyroxine 0.025 mg oral tablet 1 tablet, By Mouth, Daily, # 90 tablet, 1 Refills, Maintenance, 11/29/21 7:27:00 EDT, Tablet, [facility] #[id number], 150, cm, 11/03/21 13:46:00 EDT, Height, 100.8, [...] 3 Refills, Maintenance, 04/05/21 13:22:00 EDT, Tablet, [facility] #[id number], Part... Start Date: 04/05/21 Stop Date: 08/03/21 Status: Ordered NovoLOG FlexPen 100 units/mL injectable solution See Instructions, Subcutaneous Infusion 3 times a day before meals. Sliding scale:: 150-200 2 [id number] 4 UNITS 300-350 6 UNITS, # 3 mL, 3 Refills, Maintenance, 12/01/21 11:54:00 EDT, [facility] #[id number], Partial fill upon patient requ... Start Date: [...] 01/19/22 13:52:00 EDT, Route to Pharmacy Electronically, [facility] #[id number], Partial fill upon patient request... Start Date: [...] 10/14/21 18:18:00 EST, Route to Pharmacy Electronically, [facility] #[id number],148.4, cm, 10/05/21 10:50:00 EST, Height, 104.5, kg... Start Date: 10/14/21 Stop Date: 04/12/22 Status: Ordered spironolactone 100 mg oral tablet 100 mg, 1, tablet, By Mouth, Daily, # 90 tablet, Refills 1, Tot. Refills 1, Maintenance, 12/01/21 16:34:00 EDT, Route to Pharmacy Electronically, [facility] #[id number], Partial fill upon patient request if the [...] 11 Refills, Maintenance, 01/06/21 14:47:00 EDT, Powder, [facility] #[id number], Partial fill upon patient request if the [...] in hands(Confirmed) Active *[facility] [phone] CARE MANAG ER HELEN ROWDY(Confirmed) Active Hepatitis [...]
--- OUTSIDE RECORDS SUMMARY | 2023-03-06 14:52 | XMS_ITS | Continuity of Care Document ---
Author Name Unknown Organization [facility] Address [address] [place] [address]- Care Team Providers Care Nude Model Name Role Phone Rj HAMILTON, Winsome M Primary Care Physician Encounter [facility] Date(s): 01/07/20 - 03/08/20 [facility] [address] [place] [address]- [facility] Encounter Diagnosis Pain in right shoulder(Final) - Discharge Disposition: A-D/C Home Attending Physician: Blaze Ash MD Admitting Physician: Blaze Ash MD Referring Physician: Blaze Ash MD Allergies, Adverse Reactions, Alerts Substance Reaction [...] [07/11/2018] [facility] 2Result Comment: [11/11/2015] given at [facility] [address] [place] [address] [phone] 3Result Comment: [07/11/2018] [facility] History[facility] 5Admin Note: given at [facility] in [place], [place] 6Location History: [facility] 7Admin Note: boostrix [...] 10/21/19 14:37:00 EDT, Route to Pharmacy Electronically, [facility] #[id number], 149.9, cm, 1... Start Date: 10/21/19 Stop Date: 04/18/20 Status: Ordered Colace sodium 100 mg oral capsule 100 mg, 1, capsule, By Mouth, 2 times a day, BUBBLE PACK PLEASE, # 180 capsule, Refills 1, Tot. Refills 1, Maintenance, 04/18/20 14:37:00 EDT, Route to Pharmacy Electronically, [facility] #[id number], 149.9, cm, 03/07/20 10:17:00 EDT, Height, 103... [...] 2 Refills, Maintenance, 02/23/20 16:28:00 EDT, Tablet, [facility] #[id number], 149.9, cm, 02/23/20 13:20:00 EDT, Height, 94.4, kg, 05/21/19 10:46:00 EDT, Dry Weight Start Date: 02/23/20 Stop Date: 05/23/20 Status: Ordered FeroSul 325 mg oral tablet 1 tablet = 325 mg, By Mouth, 2 times a day, BUBBLE PACK PLEASE, # 60 tablet, 5 Refills, Soft Stop, 10/21/19 14:38:00 EDT, [facility] #[id number], 149.9, cm, 08/10/19 9:46:00 EST, Height, 94.4, kg, 05/21/19 10:46:00 EDT, Dry Weight Start Date: 10/21/19 Stop Date: 04/18/20 Status: Ordered ferrous sulfate 325 mg oral enteric coated tablet 325 mg, 1, tablet, By Mouth, 2 times a day, # 180 tablet, Refills 1, Tot. Refills 1, Maintenance, 12/24/18 14:50:03 EDT, [id number] Start Date: 12/24/18 Stop Date: 06/22/19 [...] 03/02/20 16:01:00 EDT, Route to Pharmacy Electronically, [facility] #[id number], 149.9, cm, 03/02/20 10:16:00 EDT, Height, 94.4... Start Date: 03/02/20 Stop Date: 04/01/20 Status: Ordered levothyroxine 0.025 mg oral tablet 1 tablet, By Mouth, Daily, BUBBLE PACK PLEASE, # 30 tablet, 5 Refills, Maintenance, 10/21/19 14:40:00 EDT, Tablet, [facility] #[id number], 149.9, cm, 08/10/19 9:46:00 EST, Height, 94.4, kg, 05/21/19 10:46:00 EDT, Dry Weight Start Date: 10/21/19 Stop Date: 04/18/20 Status: Ordered lisinopril 20 mg oral tablet 20 mg, 1, tablet, By Mouth, Daily, BUBBLE PACK PLEASE, # 30 tablet, Refills 5, Tot. Refills 5, Maintenance, 10/21/19 14:40:00 EDT, Route to Pharmacy Electronically, [facility] #[id number], 149.9, cm, 08/10/19 9:46:00 EST, Height, 94.4, kg, ... Start Date: 10/21/19 Stop Date: 04/18/20 Status: Ordered LORazepam 1 mg oral tablet 1 tablet = 1 mg, By Mouth, Daily, PRN as needed for anxiety, # 30 tablet, 0 Refills, Maintenance, 02/05/20 11:32:00 EDT, Tablet, [facility] #15393, 149.9, cm, 02/05/20 11:20:00 EDT, Height,94.4, kg, 05/21/19 10:46:00 EDT, Dry Weight Start Date: 02/05/20 Stop Date: 03/06/20 Status: Ordered nortriptyline 50 mg oral capsule 50 mg, 1, capsule, By Mouth, Daily, BUBBLE PACK PLEASE, # 30 capsule, Refills 1, Tot. Refills 1, Maintenance, 02/15/20 11:10:00 EDT, Route to Pharmacy Electronically, [facility] #[id number], 149.9, cm, 02/05/20 11:20:00 EDT, Height, 94.4, kg, ... Start Date: 02/15/20 Stop Date: 04/15/20 Status: Ordered nystatin topical 650800 u/gm ointment 1 application, Topically, 3 times [...] Refills, Maintenance, 10/21/19 14:42:00 EDT, EC Capsule, [facility] #[id number], 149.9, cm, 08/10/19 9:46:00 EST, Height, 94.4, kg, 05/21/19 10:46:00 EDT, Dry Weight Start Date: 10/21/19 Stop Date: 04/18/20 Status: Ordered Singulair 10 mg oral tablet 10 mg, 1, tablet, By Mouth, Daily in PM, BUBBLE PACK PLEASE, # 30 tablet, Refills 5, Tot. Refills 5, Maintenance, 03/02/20 16:02:00 EDT, Route to Pharmacy Electronically, [facility] #[id number],149.9, cm, 03/02/20 10:16:00 EDT, Height, 94.4, kg,... [...] in hands(Confirmed) Active *[facility] [phone] CARE MANAG ER HELEN RENO(Confirmed) Active Rib [...]
--- OUTSIDE RECORDS SUMMARY | 2023-03-06 14:52 | XMS_ITS | Continuity of Care Document ---
Author Name Unknown Organization [facility] Address [address] [place] [address]- Care Team Providers Care Plaster Molder Name Role Phone Rj HAMILTON, Winsome Weiss Primary Care Physician Encounter [facility] Date(s): 06/13/21 - 10/11/21 [facility] [address] [place] [address]- Attending Physician: Kassi Crow MD Admitting Physician: [...] 2Location History: [facility] 3Admin Note: given at [facility] in [place] 4Result Comment: [07/11/2018[facility] 5Result Comment: [11/11/2015] given at [facility] [address] [facility] [place] [address] [phone] 6Location History: [facility] 7Admin Note: boostrix vis [...] Replace Required Details, Route to Pharmacy Electronically, [facility] .. Start Date: 08/30/21 Status: Ordered escitalopram 20 mg oral tablet 1 tablet = 20 mg, By Mouth, Daily, # 90 tablet, 1 Refills, Maintenance, 07/12/21 7:37:00 EST, Tablet, [facility] #[id number], 148.4, cm, 06/01/21 8:57:00 EDT, Height, 97.3, [...] Maintenance,12/27/20 11:32:00 EDT, Route to Pharmacy Electronically, [facility] #[id number], Partial fill upon patient request if the prescription is for a sc... Start Date: 12/27/20 Status: Ordered isosorbide mononitrate 30 mg oral tablet, extended release 30 mg, 1, tablet, By Mouth, Daily in AM, # 30 tablet, Refills 3, Tot. Refills 3, Maintenance, 04/05/21 13:22:00 EDT, Route to Pharmacy Electronically, [facility] #[id number], Partial fill upon patient request if the prescription is for a schedule... Start Date: 04/05/21 Stop Date: 08/03/21 Status: Ordered isosorbide mononitrate 30 mg oral tablet, extended release 30 mg, 1, tablet, By Mouth, Daily in AM, # 30 tablet, Refills 3, Tot. Refills 3, Maintenance, 04/06/21 12:52:00 EDT, Route to Pharmacy Electronically, [facility] #[id number], Partial fill upon patient request if the prescription is for a schedule... Start Date: 04/06/21 Status: Ordered levothyroxine 0.025 mg oral tablet 1 tablet, By Mouth, Daily, BUBBLE PACK PLEASE, # 90 tablet, 1 Refills, Maintenance, 07/12/21 7:38:00 EST, Tablet, [facility] #[id number], 148.4, cm, 06/01/21 8:57:00 EDT, Height, 97.3, kg, 06/01/21 8:57:00 EDT, Dry Weight Start Date: 07/12/21 Stop Date: 01/08/22 Status: Ordered lisinopril 20 mg oral tablet 20 mg, 1, tablet, By Mouth, Daily, BUBBLE PACK PLEASE, # 90 tablet, Refills 1, Tot. Refills 1, Maintenance, 08/30/21 12:48:00 EST, Route to Pharmacy Electronically, [facility] #[id number], 148.4, cm, 08/15/21 9:27:00 EST, Height, 97.3, kg, 06/01/... Start Date: 08/30/21 Stop Date: 02/26/22 Status: Ordered LORazepam 1 mg oral tablet 1 tablet = 1 mg, By Mouth, Daily, PRN as needed for anxiety, covering provider, # 30 tablet, 0 Refills, Maintenance, 08/08/21 17:07:00 EST, Tablet, [facility] #[id number], 148.4, cm, 06/01/21 8:57:00 EDT, Height, 97.3, kg, 06/01/21 8:57:00 EDT, D... Start Date: 08/08/21 Stop Date: 09/07/21 Status: Ordered LORazepam 1 mg oral tablet 1 tablet = 1 mg, By Mouth, Daily, PRN as needed for anxiety, # 30 tablet, 0 Refills, Maintenance, 03/24/21 12:18:00 EDT, Tablet, [facility] #[id number], 148.4, cm, 02/16/21 15:09:00 EDT, Height,97.6, kg, 02/15/21 17:00:00 EDT, Dry Weight Start Date: 03/24/21 Stop Date: 04/23/21 Status: Ordered metoprolol 25 mg oral tablet, extended release 25 mg, 1, tablet, By Mouth, Daily, # 90 tablet, Refills 3, Tot. Refills 3, Maintenance, 10/03/21 16:04:00 EST, Route to Pharmacy Electronically, [facility] #[id number], Partial fill upon patientrequest if the prescription is for a schedule II op... Start Date: 10/03/21 Status: Ordered nitroglycerin 0.4 mg sublingual tablet 1 tablet = 0.4 mg, Sublingual, Every 5 minutes, PRN as needed for chest pain, not to exceed 3 doses/15 min--if pain persists, seek medical attention, # 30 tablet, 3 Refills, Maintenance, 04/05/21 13:22:00 EDT, Tablet, [facility] #[id number], Part... Start Date: 04/05/21 Stop Date: 08/03/21 Status: Ordered nortriptyline 50 mg oral capsule 50 mg, 1, capsule, By Mouth, Daily, # 90 capsule, Refills 1, Tot. Refills 1, Maintenance, 07/12/21 7:37:00 EST, Route to Pharmacy Electronically, [facility] #[id number], 148.4, cm, 06/01/21 8:57:00 EDT, Height, 97.3, kg, 06/01/21 8:57:00 EDT, Dry... Start Date: 07/12/21 Stop Date: 01/08/22 Status: Ordered omeprazole 20 mg oral enteric coated capsule 1 capsule = 20 mg, By Mouth, 2 times a day, BUBBLE PACK PLEASE, # 60 capsule, 3 Refills, Maintenance, 08/24/21 9:30:00 EST, EC Capsule, [facility] #[id number], 148.4, cm, 08/15/21 9:27:00 EST, Height, 97.3, kg, 06/01/21 8:57:00 EDT, Dry Weight Start Date: 08/24/21 Stop Date: 12/22/21 Status: Ordered ProAir HFA 90 mcg/inh inhalation aerosol 2 puffs, Inhalation, 4 times a day, PRN Wheezing/Shortness of Breath, # 2 each, 3 Refills, Maintenance, 11/08/20 17:08:00 EDT, Aerosol, [facility] #[id number], Partial fill upon patient request if the prescription is for a schedule II opioid drug... Start Date: 11/08/20 Stop Date: 03/08/21 Status: Ordered Singulair 10 mg oral tablet 10 mg, 1, tablet, By Mouth, Daily in PM, BUBBLE PACK PLEASE, # 30 tablet, Refills 5, Tot. Refills 5, Maintenance, 03/09/21 15:06:00 EDT, Route to Pharmacy Electronically, [facility] #[id number],148.4, cm, 02/16/21 15:09:00 EDT, Height, 97.6, kg,... Start Date: 03/09/21 Stop Date: 09/05/21 Status: Ordered trospium 60 mg oral capsule, extended release 1 capsule = 60 mg, By Mouth, Daily, # 30 capsule, 5 Refills, Maintenance, 09/29/21 15:29:00 EST, CRCapsule, [facility] #[id number], Partial fill upon patient request if the prescription is for a schedule II opioid drug., 148.4, cm, 08/15/21 9:27... Start Date: 09/29/21 Status: Ordered umeclidinium 62.5 mcg/inh inhalation powder 1 inhalation = 62.5 mcg, Inhalation, Every 24 hours, doses should be taken at least 24 hours apart,# 30 each, 11 Refills, Maintenance, 01/06/21 14:47:00 EDT, Powder, [facility] #[id number], Partial fill upon patient request if the [...] Active Hypertension(Confirmed) 10/27/12 Active Gastric hyperplastic polyp(Confirmed) 4/12/21 Active Hypothyroidism(Confirmed) Active Impacted cerumen of both ears(Confirmed) Active IFG (impaired fasting glucose)(Confirmed) Active Fecal incontinence(Confirmed) Active Poor conditioning(Confirmed) Active Lumbar strain(Confirmed) Active Anxiety and depression(Confirmed) Active Mixed incontinence(Confirmed) Active Morbid obesity(Confirmed) Active Ovarian tumor of borderline malignancy(Confirmed) 6 Active Osteoporosis(Confirmed) Active Pancytopenia(Confirmed) 10/27/14 Active Numbness and tingling in hands(Confirmed) Active *[facility] [phone] CARE MANAG ER HELEN ROWDY(Confirmed) Active Pulmonary [...]
--- OUTSIDE RECORDS SUMMARY | 2023-03-06 14:52 | XMS_ITS | Continuity of Care Document ---
Author Name Unknown Organization [facility] Address [address] [place] [address]- Care Team Providers Care Tungsten Tender Name Role Phone Rj HAMILTON, Winsome M Primary Care Physician [phone] Encounter [facility] Date(s): 12/04/21 - 01/05/22 [facility] [address] [place] [address]- Attending Physician: Ozzy Santana MD Admitting Physician: [...] sukhi 1Result Comment: [07/11/2018] [facility] 2Location History: [facility] 3Admin Note: given at [facility] in [place] 4Result Comment: [07/11/2018] [facility] 5Result Comment: [11/11/2015] given at [facility] [address] [place] [address] [phone] 6[facility] History[facility] 7Admin Note: boostrix vis [...] 1 Refills, Maintenance, 11/29/21 7:27:00 EDT, Tablet, [facility] #[id number], 150, cm, 11/03/21 13:46:00 EDT, Height, 100.8, kg, 11/01/21 22:19:00EDT, Dry Weight Start Date: 11/29/21 Stop Date: 05/28/22 Status: Ordered furosemide 20 mg oral tablet 20 mg, 1, tablet, By Mouth, 2 times a day, # 180 tablet, Refills 1, Tot. Refills 1, Maintenance, 12/01/21 16:35:00 EDT, Route to Pharmacy Electronically, [facility] #[id number], Partial fill upon patient request if the [...] 12/05/21 20:30:00 EDT, Route to Pharmacy Electronically, [facility] #[id number], Partial fill upon... Start Date: 12/05/21 Status: [...] Maintenance,12/27/20 11:32:00 EDT, Route to Pharmacy Electronically, [facility] #[id number], Partial fill upon patient request if the [...] 04/06/21 12:52:00 EDT, Route to Pharmacy Electronically, [facility] #[id number], Partial fill upon patient request if the prescription is for a schedule... Start Date: 04/06/21 Status: Ordered Lantus Solostar Pen 100 units/mL subcutaneous solution INJECT 15 UNITS SUBCUTANEOUSLY EVERY DAY WITH EVENING MEAL Start Date: 12/22/21 Status: Ordered Lantus Solostar Pen 100 units/mL subcutaneous solution = 15 units, Subcutaneous Infusion, Daily, with evening meal, # 15 mL, 3 Refills, Maintenance, 11/29/21 21:45:00 EDT, [facility] #[id number], Partial fill upon patient request if the prescriptionis for a schedule II opioid drug., 150, cm, ... Start Date: 11/29/21 Status: Ordered levothyroxine 0.025 mg oral tablet 1 tablet, By Mouth, Daily, # 90 tablet, 1 Refills, Maintenance, 11/29/21 7:27:00 EDT, Tablet, [facility] #[id number], 150, cm, 11/03/21 13:46:00 EDT, Height, 100.8, [...] 0 Refills, Maintenance, 11/29/21 7:28:00 EDT, Tablet, [facility] #[id number], 150, cm, 11/03/21 13:46:00 EDT, Height, 100.8, [...] 12/01/21 16:36:00 EDT, Route to Pharmacy Electronically, [facility] #[id number], Partial fill upon patientrequest if the prescription is for a schedule II op... Start Date: 12/01/21 Stop Date: 03/01/22 Status: Ordered nitroglycerin 0.4 mg sublingual tablet 1 tablet = 0.4 mg, Sublingual, Every 5 minutes, PRN as needed for chest pain, not to exceed 3 doses/15 min--if pain persists, seek medical attention, # 30 tablet, 3 Refills, Maintenance, 04/05/21 13:22:00 EDT, Tablet, [facility] #[id number], Part... Start Date: 04/05/21 Stop Date: 08/03/21 Status: Ordered NovoLOG FlexPen 100 units/mL injectable solution See Instructions, Subcutaneous Infusion 3 times a day before meals. Sliding scale:: 150-200 2 [id number] 4 UNITS 300-350 6 UNITS, # 3 mL, 3 Refills, Maintenance, 12/01/21 11:54:00 EDT, [facility] #[id number], Partial fill upon patient requ... Start Date: [...] 10/14/21 18:18:00 EST, Route to Pharmacy Electronically, [facility] #[id number],148.4, cm, 10/05/21 10:50:00 EST, Height, 104.5, kg... Start Date: 10/14/21 Stop Date: 04/12/22 Status: Ordered spironolactone 100 mg oral tablet 100 mg, 1, tablet, By Mouth, Daily, # 90 tablet, Refills 1, Tot. Refills 1, Maintenance, 12/01/21 16:34:00 EDT, Route to Pharmacy Electronically, [facility] #[id number], Partial fill upon patient request if the [...] 11 Refills, Maintenance, 01/06/21 14:47:00 EDT, Powder, [facility] #67386, Partial fill upon patient request if the [...] tingling in hands(Confirmed) Active *[facility] [phone] CARE MANAG ER HELEN ROWDY(Confirmed) Active Hepatitis [...]
--- OUTSIDE RECORDS SUMMARY | 2023-03-06 14:52 | XMS_ITS | Continuity of Care Document ---
Author Name Unknown Organization [facility] Address [address] [place] [address]- Care Team Providers Care Custodian Manager Name Role Phone Rj ELECTRICAL HELPER, Winsome M Primary Care Physician [phone] Encounter [facility] Date(s): 06/21/20 - 07/21/20 [facility] [address] [place] [address]- Attending Physician: Dayana Orlando Admitting Physician: Dayana [...] [07/11/2018] Gwendolyn 2Result Comment: [11/11/2015] given at [facility] [address] [place], [place] [id number] 3Result Comment: [07/11/2018] Gwendolyn 4Location History: baltazars 5Admin Note: given at [facility] in [place] 6Location History: gwendolyn 7Admin Note: boostrix vis [...] 06/21/20 16:00:00 EST, Route to Pharmacy Electronically, [facility] #[id number], 149.9, cm, 06/21/20 13:54:00 EST, Height, 103.8, [...] 5 Refills, Maintenance, 04/27/20 9:19:00 EDT, Tablet, [facility] #[id number], 149.9, cm, 04/27/20 9:00:00 EDT, Height, 103.8, kg, 03/07/20 10:17:00 EDT, Dry Weight Start Date: 04/27/20 Stop Date: 10/24/20 Status: Ordered ferrous sulfate 325 mg oral enteric coated tablet 325 mg, 1, tablet, By Mouth, 2 times a day, # 180 tablet, Refills 1, Tot. Refills 1, Maintenance, 12/24/18 14:50:03 EDT, Route to Pharmacy Electronically, [id number], [facility] Start Date: 12/24/18 Stop Date: 06/22/19 Status: Ordered Flovent HFA 220 mcg/inh inhalation aerosol 2 puffs, Inhalation, 2 times a day, # 1 each, 6 Refills, Maintenance, 05/30/20 10:57:00 EDT, Aerosol, [facility] #[id number], 149.9, cm, 05/30/20 10:53:00 EDT, Height, 103.8, kg, 03/07/20 10:17:00 EDT, Dry Weight Start Date: 05/30/20 Stop Date: 12/26/20 Status: Ordered gabapentin 100 mg oral capsule 100 mg, 1, capsule, By Mouth, 2 times a day, BUBBLE PACK PLEASE, # 60 capsule, Refills 3, Tot. Refills 3, Maintenance, 05/30/20 11:10:00 EDT, Route to Pharmacy Electronically, [facility] #[id number], 149.9, cm, 05/30/20 10:53:00 EDT, Height, 103.... Start Date: 05/30/20 Stop Date: 09/27/20 Status: Ordered levothyroxine 0.025 mg oral tablet 1 tablet, By Mouth, Daily, BUBBLE PACK PLEASE, # 30 tablet, 5 Refills, Maintenance, 04/27/20 9:20:00 EDT, Tablet, [facility] #[id number], 149.9, cm, 04/27/20 9:00:00 EDT, Height, 103.8, kg, 03/07/20 10:17:00 EDT, Dry Weight Start Date: 04/27/20 Stop Date: 10/24/20 Status: Ordered lisinopril 20 mg oral tablet 20 mg, 1, tablet, By Mouth, Daily, BUBBLE PACK PLEASE, # 30 tablet, Refills 5, Tot. Refills 5, Maintenance, 04/27/20 9:21:00 EDT, Route to Pharmacy Electronically, [facility] #[id number], 149.9,cm, 04/27/20 9:00:00 EDT, Height, 103.8, kg, 03/07/... Start Date: 04/27/20 Stop Date: 10/24/20 Status: Ordered LORazepam 1 mg oral tablet 1 tablet = 1 mg, By Mouth, Daily, PRN as needed for anxiety, # 30 tablet, 0 Refills, Maintenance, 05/30/20 10:55:00 EDT, Tablet, [facility] #[id number], 149.9, cm, 05/30/20 10:53:00 EDT, Height,103.8, kg, 03/07/20 10:17:00 EDT, Dry Weight Start Date: 05/30/20 Stop Date: 06/29/20 Status: Ordered nortriptyline 50 mg oral capsule 50 mg, 1, capsule, By Mouth, Daily, BUBBLE PACK PLEASE, # 30 capsule, Refills 6, Tot. Refills 6, Maintenance, 03/25/20 19:21:00 EDT, Route to Pharmacy Electronically, [facility] #[id number], 149.9, cm, 03/07/20 10:17:00 EDT, Height, 103.8, kg, 07... Start Date: 03/25/20 Stop Date: 10/21/20 Status: Ordered nystatin topical 620221 u/gm ointment 1 application, Topically, 3 times [...] Refills, Maintenance, 10/24/20 9:19:00 EDT, EC Capsule, [facility] #06934, 149.9, cm, 06/14/20 14:58:00 EST, Height, 101, kg, 06/07/20 10:02:00 EDT, Dry Weight Start Date: 10/24/20 Stop Date: 02/21/21 Status: Ordered Singulair 10 mg oral tablet 10 mg, 1, tablet, By Mouth, Daily in PM, BUBBLE PACK PLEASE, # 30 tablet, Refills 5, Tot. Refills 5, Maintenance, 03/02/20 16:02:00 EDT, Route to Pharmacy Electronically, [facility] #[id number],149.9, cm, 03/02/20 10:16:00 EDT, Height, 94.4, kg,... [...] Numbness and tingling in hands(Confirmed) Active *[facility] [phone] CARE MANAG ER HELEN RENO(Confirmed) Active Rib [...]
--- OUTSIDE RECORDS SUMMARY | 2023-03-06 14:52 | XMS_ITS | Continuity of Care Document ---
Author Name Unknown Organization [facility] Address [address] [place] [address]- Care Team Providers Care Metal Fitter Name Role Phone Rj HAMILTON, Winsome Weiss Primary Care Physician [facility]counter [facility] Date(s): 10/12/21 - 11/11/21 [facility] [address] [place] [phone]- [place] Allergies, Adverse Reactions, Alerts Substance Reaction [...] 2Location History: gwendolyn 3Admin Note: given at [facility] in [place], [place] 4Result Comment: [07/11/2018] Gwendolyn 5Result Comment: [11/11/2015] given at [facility] [id number] [place] [address] [phone] 6Location History: gwendolyn 7Admin Note: boostrix vis 12-28-2012 Medications albuterol 0.083% inhalation solution 3 mL = 2.5 mg, Inhalation, Every 6 hours, PRN Wheezing/Shortness of Breath, # 60 each, 6 Refills, Maintenance, 10/29/14 10:00:25, Solution Start Date: 10/29/14 Status: Ordered escitalopram 20 mg oral tablet 1 tablet = 20 mg, By Mouth, Daily, # 90 tablet, 1 Refills, Maintenance, 07/12/21 7:37:00 EST, Tablet, [facility] #[id number], 148.4, cm, 06/01/21 8:57:00 EDT, Height, 97.3, [...] Maintenance,12/27/20 11:32:00 EDT, Route to Pharmacy Electronically, [facility] #[id number], Partial fill upon patient request if the prescription is for a sc... Start Date: 12/27/20 Status: Ordered isosorbide mononitrate 30 mg oral tablet, extended release 30 mg, 1, tablet, By Mouth, Daily in AM, # 30 tablet, Refills 3, Tot. Refills 3, Maintenance, 04/06/21 12:52:00 EDT, Route to Pharmacy Electronically, [facility] #[id number], Partial fill upon patient request if the prescription is for a schedule... Start Date: 04/06/21 Status: Ordered levothyroxine 0.025 mg oral tablet 1 tablet, By Mouth, Daily, BUBBLE PACK PLEASE, # 90 tablet, 1 Refills, Maintenance, 07/12/21 7:38:00 EST, Tablet, [facility] #[id number], 148.4, cm, 06/01/21 8:57:00 EDT, Height, 97.3, [...] 10/03/21 16:04:00 EST, Route to Pharmacy Electronically, [facility] #[id number], Partial fill upon patientrequest if the prescription [...] 3 Refills, Maintenance, 04/05/21 13:22:00 EDT, Tablet, [facility] #[id number], Part... Start Date: 04/05/21 Stop Date: 08/03/21 [...] 10/14/21 18:18:00 EST, Route to Pharmacy Electronically, [facility] #[id number],148.4, cm, 10/05/21 10:50:00 EST, Height, 104.5, kg... [...] 11 Refills, Maintenance, 01/06/21 14:47:00 EDT, Powder, [facility] #91942, Partial fill upon patient request if the [...] hands(Confirmed) Active *[facility] [phone] CARE MANAG ER HELEN RENO(Confirmed) Active Hepatitis [...]
--- OUTSIDE RECORDS SUMMARY | 2023-03-06 14:52 | XMS_ITS | Continuity of Care Document ---
Author Name Unknown Organization [facility] Address [address] [place] [address]- Care Team Providers Care Merchandising Team Lead Name Role Phone Rj WET CHEMISTRY ANALYST, Winsome M Primary Care Physician Encounter [facility] Date(s): 02/20/22 - 02/20/[address] [address] Discharge Disposition: A-D/C Home Attending [...] 2Location History: gwendolyn 3Admin Note: given at [facility] in [place] 4Result Comment: [07/11/2018] Liliyas 5Result Comment: [11/11/2015] given at [facility] [address] [place] [address] [phone] 6Location History: [facility] 7Admin Note: boostrix vis 12-28-2012 Medications calcium [...] 01/19/22 19:16:00 EDT, Route to Pharmacy Electronically, [facility] #[id number], Partial fill upon patientrequest if the prescription is for a schedule II op... Start Date: 01/19/22 Status: Ordered docusate sodium 100 mg oral capsule TAKE 1 CAPSULE BY MOUTH TWICE DAILY NEEDED FOR CONSTIPATION Start Date: 02/20/22 Status: Ordered escitalopram 20 mg oral tablet 1 tablet = 20 mg, By Mouth, Daily, # 90 tablet, 1 Refills, Maintenance, 11/29/21 7:27:00 EDT, Tablet, [facility] #[id number], 150, cm, 11/03/21 13:46:00 EDT, Height, 100.8, [...] 12/01/21 16:35:00 EDT, Route to Pharmacy Electronically, [facility] #[id number], Partial fill upon patient request if the prescription is for a sched... Start Date: 12/01/21 Stop Date: 05/30/22 Status: Ordered gabapentin 100 mg oral capsule 200 mg, 2, capsule, By Mouth, 3 times a day, 2 capsules to equal 200 mg three times a day., # 180 capsule, Refills 3, Tot. Refills 3, Maintenance, 12/05/21 20:30:00 EDT, Route to Pharmacy Electronically, [facility] #[id number], Partial fill upon... Start Date: 12/05/21 Status: [...] mL, 3 Refills, Maintenance, 11/29/21 21:45:00 EDT, [facility] #[id number], Partial fill upon patient request if the prescriptionis for a schedule II opioid drug., 150, cm, ... Start Date: 11/29/21 Status: Ordered levothyroxine 0.025 mg oral tablet 1 tablet, By Mouth, Daily, # 90 tablet, 1 Refills, Maintenance, 11/29/21 7:27:00 EDT, Tablet, [facility] #[id number], 150, cm, 11/03/21 13:46:00 EDT, Height, 100.8, [...] 3 Refills, Maintenance, 04/05/21 13:22:00 EDT, Tablet, [facility] #31112, Part... Start Date: 04/05/21 Stop Date: 08/03/21 Status: Ordered NovoLOG FlexPen 100 units/mL injectable solution See Instructions, Subcutaneous Infusion 3 times a day before meals. Sliding scale:: 150-200 2 [id number] 4 UNITS 300-350 6 UNITS, # 3 mL, 3 Refills, Maintenance, 12/01/21 11:54:00 EDT, [facility] #[id number], Partial fill upon patient requ... Start Date: [...] 01/19/22 13:52:00 EDT, Route to Pharmacy Electronically, [facility] #[id number], Partial fill upon patient request... Start Date: [...] 10/14/21 18:18:00 EST, Route to Pharmacy Electronically, [facility] #21028,148.4, cm, 10/05/21 10:50:00 EST, Height, 104.5, kg... Start Date: 10/14/21 Stop Date: 04/12/22 Status: Ordered spironolactone 100 mg oral tablet 100 mg, 1, tablet, By Mouth, Daily, # 90 tablet, Refills 1, Tot. Refills 1, Maintenance, 12/01/21 16:34:00 EDT, Route to Pharmacy Electronically, [facility] #[id number], Partial fill upon patient request if the [...] 11 Refills, Maintenance, 01/06/21 14:47:00 EDT, Powder, [facility] #[id number], Partial fill upon patient request if the [...] Numbness and tingling in hands(Confirmed) Active *[facility] [phone] CARE MANAG ER HELEN RENO(Confirmed) Active Hepatitis C virus infection resolved after antiviral drug therapy(Confirmed) Active Portal hypertension with eso phageal varices(Confirmed) Active Severe obesity(Confirmed) Active DM2 (diabetes mellitus, type 2)(Confirmed) Active Urge urinary incontinence(Confirmed) Active 1tx with apc today due to bleeding. 2possibly Type III 33+ 4s/p bilateral salpingo-oophrectomy Vital Signs Most recent to oldest [Reference Range]: 1 Oxygen Saturation [94-100 %] 99 % (02/20/22 7:20 AM) Pulse Rate [55-90 bpm] 105 bpm *H* (02/20/22 7:20 AM) Blood Pressure [90-138/55-84 mm Hg] 108/ 43mm Hg (02/20/22 7:20 AM) Respiratory Rate [16-30 br/min] 20 br/mi n (02/20/22 7:20 AM) Temperature [96.8-100.4 DegF] 97.8 DegF (02/20/22 7:20 AM) Mode of Delivery (Oxygen) Room air (02/20/22 7:20 AM) Blood pressure sites Arm, left (02/20/22 7:20 AM) Temperature Route Oral (02/20/22 7:20 AM) Social History Social History Type Response Smoking Status Former smoker; Tobac co user in household: No; Type: Cigarettes; Stopped at age: 48; Tobacco use times per day: up to 2 ppd; Started at age: 16; entered on: 11/08/14 Sex
--- OUTSIDE RECORDS SUMMARY | 2023-03-06 14:52 | XMS_ITS | Continuity of Care Document ---
Author Name Unknown Organization [facility] Address [address] [place] [address]- Care Team Providers Care Clinical Resource Nurse Name Role Phone Rj MODELING ANALYST, Winsome Weiss Primary Care Physician Encounter [facility] Date(s): 12/27/20 - 01/26/21 [facility] [address] [place] [address]- Allergies, Adverse Reactions, Alerts Substance Reaction Severity [...] [facility] [address] [place] [address] [phone] 3Result Comment: [07/11/2018] [facility] 5Admin Note: given at [facility] in [place], [place] 6Location History[facility] 7Admin Note: boostrix [...] mL, 11 Refills, Maintenance, 01/06/21 14:51:00 EDT, [place], [facility] #[id number], Partial fill upon patient request if the prescriptionis for a schedule II opioid drug., 2 sprays Nares,... Start Date: 01/06/21 Status: Ordered Colace sodium 100 mg oral capsule 100 mg, 1, capsule, By Mouth, 2 times a day, BUBBLE PACK PLEASE, # 180 capsule, Refills 1, Tot. Refills 1, Maintenance, 11/08/20 17:06:00 EDT, Route to Pharmacy Electronically, [facility] #[id number], 152.4, cm, 11/07/20 7:59:00 EDT, Height, 100.... Start Date: 11/08/20 Stop Date: 05/07/21 Status: Ordered escitalopram 20 mg oral tablet 1 tablet = 20 mg, By Mouth, Daily, # 30 tablet, 5 Refills, Maintenance, 07/22/20 9:23:00 EST, Tablet, [facility] #[id number], 153, cm, 07/22/20 9:04:00 EST, Height, 106, kg, 07/08/20 13:49:00 EST, Dry Weight Start Date: 07/22/20 Stop Date: 01/18/21 Status: Ordered ferrous sulfate 325 mg oral enteric coated tablet 325 mg, 1, tablet, By Mouth, 2 times a day, may take with food to minimize abdominal discomfort, # 180 tablet, Refills 1, Tot. Refills 1, Maintenance, 10/04/20 16:08:00 EST, Route to Pharmacy Electronically, [facility] #[id number], 150, cm, 09/26... Start Date: 10/04/20 Stop Date: 04/02/21 Status: Ordered gabapentin 100 mg oral capsule 200 mg, 2, capsule, By Mouth, 3 times a day, # 180 capsule, Refills 3, Tot. Refills 3, Maintenance,12/27/20 11:32:00 EDT, Route to Pharmacy Electronically, [facility] #[id number], Partial fill upon patient request if the prescription is for a sc... Start Date: 12/27/20 Status: Ordered levothyroxine 0.025 mg oral tablet 1 tablet, By Mouth, Daily, BUBBLE PACK PLEASE, # 30 tablet, 5 Refills, Maintenance, 07/22/20 9:24:00 EST, Tablet, [facility] #36174, 153, cm, 07/22/20 9:04:00 EST, Height, 106, kg, 07/08/2013:49:00 EST, Dry Weight Start Date: 07/22/20 Stop Date: 01/18/21 Status: Ordered lisinopril 20 mg oral tablet 20 mg, 1, tablet, By Mouth, Daily, BUBBLE PACK PLEASE, # 30 tablet, Refills 5, Tot. Refills 5, Maintenance, 12/15/20 9:29:00 EDT, Route to Pharmacy Electronically, [facility] #[id number], 153, cm, 11/29/20 15:11:00 EDT, Height, 102.4, kg, ... Start Date: 12/15/20 Stop Date: 06/13/21 Status: Ordered LORazepam 1 mg oral tablet 1 tablet = 1 mg, By Mouth, Daily, PRN as needed for anxiety, # 30 tablet, 0 Refills, Maintenance, 12/15/20 9:28:00 EDT, Tablet, [facility] #02429, 153, cm, 11/29/20 15:11:00 EDT, Height, 102.4, [...] 03/25/20 19:21:00 EDT, Route to Pharmacy Electronically, [facility] #[id number], 149.9, cm, 03/07/20 10:17:00 EDT, Height, 103.8, kg, 07... Start Date: 03/25/20 Stop Date: 10/21/20 Status: Ordered omeprazole 20 mg oral enteric coated capsule 1 capsule = 20 mg, By Mouth, 2 times a day, for 30 days, BUBBLE PACK PLEASE, # 60 capsule, 3 Refills, Hard Stop 02/21/21 9:19:00 EDT, 10/24/20 9:19:00 EDT, EC Capsule, [facility] #[id number], 149.9, cm, 06/14/20 14:58:00 EST, Height, 101, kg, ... Start Date: 10/24/20 Stop Date: 02/21/21 Status: Ordered omeprazole 20 mg oral enteric coated capsule 1 capsule = 20 mg, By Mouth, 2 times a day, BUBBLE PACK PLEASE, # 60 capsule, 3 Refills, Maintenance, 12/22/20 9:44:00 EDT, EC Capsule, [facility] #02514, 153, cm, 11/29/20 15:11:00 EDT, Height, 102.4, kg, 11/13/20 18:51:00 EDT, Dry Weight Start Date: 12/22/20 Stop Date: 04/21/21 Status: Ordered ProAir HFA 90 mcg/inh inhalation aerosol 2 puffs, Inhalation, 4 times a day, PRN Wheezing/Shortness of Breath, # 2 each, 3 Refills, Maintenance, 11/08/20 17:08:00 EDT, Aerosol, [facility] #18289, Partial fill upon patient request if the prescription is for a schedule II opioid drug... Start Date: 11/08/20 Stop Date: 03/08/21 Status: Ordered Singulair 10 mg oral tablet 10 mg, 1, tablet, By Mouth, Daily in PM, BUBBLE PACK PLEASE, # 30 tablet, Refills 5, Tot. Refills 5, Maintenance, 07/22/20 9:24:00 EST, Route to Pharmacy Electronically, [facility] #[id number], 153, cm, 07/22/20 9:04:00 EST, Height, 106, kg, 06/13... Start Date: 07/22/20 Stop Date: 01/18/21 Status: Ordered umeclidinium 62.5 mcg/inh inhalation powder 1 inhalation = 62.5 mcg, Inhalation, Every 24 hours, doses should be taken at least 24 hours apart,# 30 each, 11 Refills, Maintenance, 01/06/21 14:47:00 EDT, Powder, [facility] #[id number], Partial fill upon patient request if the [...] hands(Confirmed) Active *[facility] [phone] CARE MANAG ER HELEN RENO(Confirmed) Active Pulmonary [...]
--- OUTSIDE RECORDS SUMMARY | 2023-03-06 14:52 | XMS_ITS | Continuity of Care Document ---
Author Name Unknown Organization [facility] Address [address] [address]- Care Team Providers Care Director Geophysical Laboratory Name Role Phone Rj HAMILTON, Winsome Weiss Primary Care Physician Encounter [facility] [id number] Date(s): 07/27/19 - 08/03/[address] [address]- [facility] Attending Physician: Nilsa LE, Blaze Kevin Referring [...] [07/11/2018] [facility] 2Result Comment: [11/11/2015] given at [facility] [address] [place] [address] [phone] 3Result Comment: [07/11/2018] [facility] 5Admin Note: given at [facility] in [place], [place] 6Location History[facility] 7Admin Note: boostrix [...] Maintenance,12/24/18 14:50:42 EDT, Route to Pharmacy Electronically, [id number], [email or web address] Start Date: 12/24/18 Stop Date: 06/22/19 [...] 12/24/18 14:50:03 EDT, Route to Pharmacy Electronically, [id number], [facility] Start Date: 12/24/18 Stop Date: 06/22/19 [...] 12/04/17 16:24:00 EDT, Route to Pharmacy Electronically, [id number], [facility] [address] Start Date: 12/04/17 Stop Date: 04/03/18 Status: Ordered levothyroxine 0.025 mg oral tablet 1 tablet, By Mouth, Daily, # 90 tablet, 3 Refills, Maintenance, 05/13/17 13:17:05, Tablet Start Date: 05/13/17 Stop Date: 05/08/18 Status: Ordered lisinopril 20 mg oral tablet 20 mg, 1, tablet, By Mouth, Daily, # 90 tablet, Refills 1, Tot. Refills 1, Maintenance, 06/30/19 12:32:13 EST, Route to Pharmacy Electronically, [id number], [facility] #[id number] Start Date: 06/30/19 Stop Date: 12/27/19 Status: [...] 12/04/17 16:24:02 EDT, Route to Pharmacy Electronically, [id number], [facility] [id number] Start Date: 12/04/17 Stop Date: 04/03/18 Status: Ordered nystatin topical [id number] u/gm ointment 1 application, Topically, 3 times [...] Maintenance, 12/28/16 8:24:40, Route to Pharmacy Electronically, [id number], [facility] [address] Start Date: 12/28/16 Status: Ordered Spiriva Respimat [...] hands(Confirmed) Active *[facility] [phone] CARE MANAG ER HELEN RENO(Confirmed) Active Rib pain on left side(Confirmed) Active Pain in right shoulder(Confirmed) Active Urge urinary incontinence(Confirmed) Active 1tx with apc today due to bleeding. 2normal PFT's 11/22/14 r/o COPD 3childhood onset 4possibly Type III 53+ 6s/p bilateral salpingo-oophrectomy Vital Signs Most recent to oldest [Reference Range]: 1 Height 149.9 cm (07/27/19 11:17 AM) Temperature [96.8-100.4 DegF] 98.6 DegF (07/27/19 11:17 AM) Blood pressure sites Arm, right (07/27/19 11:17 AM) Temperature Route Tympanic (07/27/19 11:17 AM) Social History Social History Type Response Smoking Status Former smoker; Tobac co user in household: No; Type: Cigarettes; Tobacco use times per day: up to 2 ppd; Started at age: 16; Stopped at age: 48; entered on: 11/08/14 Sex
--- OUTSIDE RECORDS SUMMARY | 2023-03-06 14:52 | XMS_ITS | Continuity of Care Document ---
Author Name Unknown Organization [facility] Address [address] [place] [address]- Care Team Providers Care Compliance Vice President Name Role Phone Rj HAMILTON, Winsome Weiss Primary Care Physician Encounter [facility] Date(s): 03/15/21 - 07/13/21 [facility] [address] [place] [address]- Attending Physician: Sandra Mcadams MD Admitting Physician: Sandra Mcadams MD Referring Physician: [...] [11/11/2015] given at [facility] [address] [place] [address] [phone] 3Result Comment: [07/11/2018] [facility]Location History[facility] 5Admin Note: given at [facility] in [place], [place] 6Location History: [facility] 7Admin Note: boostrix [...] mL, 11 Refills, Maintenance, 01/06/21 14:51:00 EDT, [place], [email or web address] #[id number], Partial fill upon patient request if the prescriptionis for a schedule II opioid drug., 2 sprays Nares,... Start Date: 01/06/21 Status: Ordered clopidogrel 75 mg oral tablet 75 mg, 1, tablet, By Mouth, Daily, # 30 tablet, Refills 3, Tot. Refills 3, Maintenance, 04/06/21 16:33:00 EDT, Route to Pharmacy Electronically, [facility] #[id number], Partial fill upon patientrequest if the prescription is for a schedule II op... Start Date: 04/06/21 Status: Ordered dicyclomine 10 mg oral capsule 1 capsule = 10 mg, By Mouth, 4 times a day, PRN Pain , Moderate, # 28 capsule, 0 Refills, Maintenance, 05/11/21 15:51:00 EDT, Capsule, [facility] #[id number], Partial fill upon patient request if the prescription is for a schedule II opioid drug.... Start Date: 05/11/21 Stop Date: 05/18/21 Status: Ordered escitalopram 20 mg oral tablet 1 tablet = 20 mg, By Mouth, Daily, # 90 tablet, 1 Refills, Maintenance, 07/12/21 7:37:00 EST, Tablet, [email or web address] #[id number], 148.4, cm, 06/01/21 8:57:00 EDT, Height, 97.3, kg, 06/01/21 8:57:00 EDT, Dry Weight Start Date: 07/12/21 Stop Date: 01/08/22 Status: Ordered ferrous sulfate 325 mg oral enteric coated tablet 325 mg, 1, tablet, By Mouth, 2 times a day, may take with food to minimize abdominal discomfort, # 180 tablet, Refills 1, Tot. Refills 1, Maintenance, 07/12/21 7:38:00 EST, Route to Pharmacy Electronically, [email or web address] #[id number], 148.4, cm, 05/13... Start Date: 07/12/21 Stop [...] Maintenance,12/27/20 11:32:00 EDT, Route to Pharmacy Electronically, [email or web address] #[id number], Partial fill upon patient request if the prescription is for a sc... Start Date: 12/27/20 Status: Ordered isosorbide mononitrate 30 mg oral tablet, extended release 30 mg, 1, tablet, By Mouth, Daily in AM, # 30 tablet, Refills 3, Tot. Refills 3, Maintenance, 04/05/21 13:22:00 EDT, Route to Pharmacy Electronically, [facility] #[id number], Partial fill upon patient request if the prescription is for a schedule... Start Date: 04/05/21 Stop Date: 08/03/21 Status: Ordered isosorbide mononitrate 30 mg oral tablet, extended release 30 mg, 1, tablet, By Mouth, Daily in AM, # 30 tablet, Refills 3, Tot. Refills 3, Maintenance, 04/06/21 12:52:00 EDT, Route to Pharmacy Electronically, [email or web address] #[id number], Partial fill upon patient request if the prescription is for a schedule... Start Date: 04/06/21 Status: Ordered levothyroxine 0.025 mg oral tablet 1 tablet, By Mouth, Daily, BUBBLE PACK PLEASE, # 90 tablet, 1 Refills, Maintenance, 07/12/21 7:38:00 EST, Tablet, [email or web address] #[id number], 148.4, cm, 06/01/21 8:57:00 EDT, Height, 97.3, kg, 06/01/21 8:57:00 EDT, Dry Weight Start Date: 07/12/21 Stop Date: 01/08/22 Status: Ordered lisinopril 20 mg oral tablet 20 mg, 1, tablet, By Mouth, Daily, BUBBLE PACK PLEASE, # 90 tablet, Refills 1, Tot. Refills 1, Maintenance, 06/12/21 9:50:00 EDT, Route to Pharmacy Electronically, [email or web address] #[id number], 148.4,cm, 06/01/21 8:57:00 EDT, Height, 97.3, kg, ... Start Date: 06/12/21 Stop Date: 12/09/21 Status: Ordered LORazepam 1 mg oral tablet 1 tablet = 1 mg, By Mouth, Daily, PRN as needed for anxiety, covering provider, # 30 tablet, 0 Refills, Maintenance, 05/22/21 16:47:00 EDT, Tablet, [facility] #[id number], 148.4, cm, 02/16/21 15:09:00 EDT, Height, 97.6, kg, 02/15/21 17:00:00 EDT,... Start Date: 05/22/21 Stop Date: 06/21/21 Status: Ordered LORazepam 1 mg oral tablet 1 tablet = 1 mg, By Mouth, Daily, PRN as needed for anxiety, # 30 tablet, 0 Refills, Maintenance, 03/24/21 12:18:00 EDT, Tablet, [facility] #[id number], 148.4, cm, 02/16/21 15:09:00 EDT, Height,97.6, kg, [...] 3 Refills, Maintenance, 04/05/21 13:22:00 EDT, Tablet, [email or web address] #[id number], Part... Start Date: 04/05/21 Stop Date: 08/03/21 Status: Ordered nortriptyline 50 mg oral capsule 50 mg, 1, capsule, By Mouth, Daily, # 90 capsule, Refills 1, Tot. Refills 1, Maintenance, 07/12/21 7:37:00 EST, Route to Pharmacy Electronically, [facility] #[id number], 148.4, cm, 06/01/21 8:57:00 EDT, Height, 97.3, kg, 06/01/21 8:57:00 EDT, Dry... Start Date: 07/12/21 Stop Date: 01/08/22 Status: Ordered omeprazole 20 mg oral enteric coated capsule 1 capsule = 20 mg, By Mouth, 2 times a day, BUBBLE PACK PLEASE, # 60 capsule, 3 Refills, Maintenance, 04/21/21 17:24:00 EDT, EC Capsule, [facility] #[id number], 148.4, cm, 02/16/21 15:09:00 EDT,Height, 97.6, kg, 02/15/21 17:00:00 EDT, Dry Weight Start Date: 04/21/21 Stop Date: 08/19/21 Status: Ordered ProAir HFA 90 mcg/inh inhalation aerosol 2 puffs, Inhalation, 4 times a day, PRN Wheezing/Shortness of Breath, # 2 each, 3 Refills, Maintenance, 11/08/20 17:08:00 EDT, Aerosol, [email or web address] #[id number], Partial fill upon patient request if the prescription is for a schedule II opioid drug... Start Date: 11/08/20 Stop Date: 03/08/21 Status: Ordered Singulair 10 mg oral tablet 10 mg, 1, tablet, By Mouth, Daily in PM, BUBBLE PACK PLEASE, # 30 tablet, Refills 5, Tot. Refills 5, Maintenance, 03/09/21 15:06:00 EDT, Route to Pharmacy Electronically, [email or web address] #[id number],148.4, cm, 02/16/21 15:09:00 EDT, Height, 97.6, kg,... Start Date: 03/09/21 Stop Date: 09/05/21 Status: Ordered umeclidinium 62.5 mcg/inh inhalation powder 1 inhalation = 62.5 mcg, Inhalation, Every 24 hours, doses should be taken at least 24 hours apart,# 30 each, 11 Refills, Maintenance, 01/06/21 14:47:00 EDT, Powder, [email or web address] #[id number], Partial fill upon patient request if the [...] Numbness and tingling in hands(Confirmed) Active *[facility] [phone] CARE MANAG ER HELEN ROWDY(Confirmed) Active Pulmonary [...]
--- OUTSIDE RECORDS SUMMARY | 2023-03-06 14:52 | XMS_ITS | Continuity of Care Document ---
Author Name Unknown Organization [facility] Address [address] [place] [id number]- Care Team Providers Care Mechanic Welder Name Role Phone Rj MILK OF LIME SLAKER, Winsome Weiss Primary Care Physician [phone] Encounter [facility] Date(s): 01/18/20 - 02/17/[address] [address]- [facility] Attending Physician: Admovidio, Dayana Admitting Physician: Admtr, [...] [07/11/2018] [facility] 2Result Comment: [11/11/2015] given at [facility] [address] [place] [address] [phone] 3Result Comment: [07/11/2018] [facility] 5Admin Note: given at [facility] in [place], [place] 6Location History[facility] 7Admin Note: boostrix [...] 10/21/19 14:37:00 EDT, Route to Pharmacy Electronically, [facility] #[id number], 149.9, cm, 08/10/19 9:46:00 EST, Height, 94.4... [...] Maintenance, 10/21/19 14:37:00 EDT, Tablet, [email or web address] #[id number], 149.9, cm, 08/10/19 9:46:00 EST, Height, 94.4, kg, 05/21/19 10:46:00 EDT, Dry Weight Start Date: 10/21/19 Status: Ordered FeroSul 325 mg oral tablet 1 tablet = 325 mg, By Mouth, 2 times a day, BUBBLE PACK PLEASE, # 60 tablet, 5 Refills, Soft Stop, 10/21/19 14:38:00 EDT, [email or web address] #[id number], 149.9, cm, 08/10/19 9:46:00 EST, Height, 94.4, kg, 05/21/19 10:46:00 EDT, Dry Weight Start Date: 10/21/19 Stop Date: 04/18/20 Status: Ordered ferrous sulfate 325 mg oral enteric coated tablet 325 mg, 1, tablet, By Mouth, 2 times a day, # 180 tablet, Refills 1, Tot. Refills 1, Maintenance, 12/24/18 14:50:03 EDT, [email or web address] Start Date: 12/24/18 Stop Date: 06/22/19 [...] 01/18/20 10:21:00 EDT, Route to Pharmacy Electronically, [email or web address] #[id number], 149.9, cm, 12/31/19 13:16:00 EDT, Height, 94.4... Start Date: 01/18/20 Stop Date: 02/17/20 Status: Ordered levothyroxine 0.025 mg oral tablet 1 tablet, By Mouth, Daily, BUBBLE PACK PLEASE, # 30 tablet, 5 Refills, Maintenance, 10/21/19 14:40:00 EDT, Tablet, [email or web address] #[id number], 149.9, cm, 08/10/19 9:46:00 EST, Height, 94.4, kg, 05/21/19 10:46:00 EDT, Dry Weight Start Date: 10/21/19 Stop Date: 04/18/20 Status: Ordered lisinopril 20 mg oral tablet 20 mg, 1, tablet, By Mouth, Daily, BUBBLE PACK PLEASE, # 30 tablet, Refills 5, Tot. Refills 5, Maintenance, 10/21/19 14:40:00 EDT, Route to Pharmacy Electronically, [email or web address] #[id number], 149.9, cm, 08/10/19 9:46:00 EST, Height, 94.4, kg, ... Start Date: 10/21/19 Stop Date: 04/18/20 Status: Ordered LORazepam 1 mg oral tablet 1 tablet = 1 mg, By Mouth, Daily, PRN as needed for anxiety, # 30 tablet, 0 Refills, Maintenance, 02/05/20 11:32:00 EDT, Tablet, [email or web address] #[id number], 149.9, cm, 02/05/20 11:20:00 EDT, Height,94.4, kg, 05/21/19 10:46:00 EDT, Dry Weight Start Date: 02/05/20 Stop Date: 03/06/20 Status: Ordered nortriptyline 50 mg oral capsule 50 mg, 1, capsule, By Mouth, Daily, BUBBLE PACK PLEASE, # 30 capsule, Refills 1, Tot. Refills 1, Maintenance, 02/15/20 11:10:00 EDT, Route to Pharmacy Electronically, [email or web address] #[id number], 149.9, cm, 02/05/20 11:20:00 EDT, Height, 94.4, kg, ... Start Date: 02/15/20 Stop Date: 04/15/20 Status: Ordered nystatin topical 849012 u/gm ointment 1 application, Topically, 3 times [...] 10/21/19 14:42:00 EDT, EC Capsule, [email or web address] #[id number], 149.9, cm, 08/10/19 9:46:00 EST, Height, 94.4, kg, 05/21/19 10:46:00 EDT, Dry Weight Start Date: 10/21/19 Stop Date: 04/18/20 Status: Ordered Singulair 10 mg oral tablet 10 mg, 1, tablet, By Mouth, Daily in PM, BUBBLE PACK PLEASE, # 30 tablet, Refills 5, Tot. Refills 5, Maintenance, 10/21/19 14:41:00 EDT, Route to Pharmacy Electronically, [facility] #[id number],149.9, cm, 08/10/19 9:46:00 EST, Height, 94.4, kg,... [...] hands(Confirmed) Active *[facility] [phone] CARE MANAG ER HELEN ROWDY(Confirmed) Active Rib [...]
--- OUTSIDE RECORDS SUMMARY | 2023-03-06 14:52 | XMS_ITS | Continuity of Care Document ---
Author Name Unknown Organization [facility] Address [address] [place] [address]- Care Team Providers Care Mirror Specialist Name Role Phone Rj CERTIFIED WELLNESS PROGRAM COORDINATOR, Winsome M Primary Care Physician Encounter [facility] Date(s): 08/30/21 - 09/29/21 [facility] [address] [place] [address]- Attending Physician: Dayana Orlando Admitting Physician: Admtr, ArHever Referring Physician: Admtr, Ar8 Allergies, Adverse Reactions, [...] 2Location History: [facility] 3Admin Note: given at [facility] in [place] 4Result Comment: [07/11/2018] [facility] 5Result Comment: [11/11/2015] given at [facility] [address] [place] [address] [phone] 6Location History: [facility] 7Admin Note: [facility] 12-28-2012 Medications albuterol 0.083% inhalation solution 3 mL = 2.5 mg, Inhalation, Every 6 hours, PRN Wheezing/Shortness of Breath, # 60 each, 6 Refills, Maintenance, 10/29/14 10:00:25, Solution Start Date: 10/29/14 Status: Ordered azelastine 137 mcg/inh (0.1%) nasal spray 2 sprays, Nares, Both, Daily, PRN Other Allergies, # 30 mL, 11 Refills, Maintenance, 01/06/21 14:51:00 EDT, [place], [facility] #[id number], Partial fill upon patient request if the prescriptionis for a schedule II opioid drug., 2 sprays Nares,... Start Date: 01/06/21 Status: Ordered dicyclomine 10 mg oral capsule 1 capsule = 10 mg, By Mouth, 4 times a day, PRN Pain , Moderate, # 28 capsule, 0 Refills, Maintenance, 05/11/21 15:51:00 EDT, Capsule, [facility] #[id number], Partial fill upon patient request if the prescription is for a schedule II opioid drug.... Start Date: 05/11/21 Stop Date: 05/18/21 Status: Ordered docusate sodium 100 mg oral capsule See Instructions, PRN, TAKE ONE CAPSULE BY MOUTH TWICE DAILY, # 60 capsule, Refills 3, Tot. Refills3, Soft Stop, as needed for constipation, 08/30/21 12:50:00 EST, Instructions Replace Required Details, Route to Pharmacy Electronically, [facility]. Start Date: 08/30/21 Status: Ordered escitalopram 20 mg oral tablet 1 tablet = 20 mg, By Mouth, Daily, # 90 tablet, 1 Refills, Maintenance, 07/12/21 7:37:00 EST, Tablet, [facility] #[id number], 148.4, cm, 06/01/21 8:57:00 EDT, Height, 97.3, kg, 06/01/21 8:57:00 EDT, Dry Weight Start Date: 07/12/21 Stop Date: 01/08/22 Status: Ordered ferrous sulfate 325 mg oral enteric coated tablet 325 mg, 1, tablet, By Mouth, 2 times a day, may take with food to minimize abdominal discomfort, # 180 tablet, Refills 1, Tot. Refills 1, Maintenance, 07/12/21 7:38:00 EST, Route to Pharmacy Electronically, [facility] #[id number], 148.4, cm, 05/13... Start Date: 07/12/21 Stop [...] Maintenance,12/27/20 11:32:00 EDT, Route to Pharmacy Electronically, [facility] #[id number], Partial fill upon patient request if the prescription is for a sc... Start Date: 12/27/20 Status: Ordered isosorbide mononitrate 30 mg oral tablet, extended release 30 mg, 1, tablet, By Mouth, Daily in AM, # 30 tablet, Refills 3, Tot. Refills 3, Maintenance, 04/05/21 13:22:00 EDT, Route to Pharmacy Electronically, [facility] #[id number], Partial fill upon patient request if the prescription is for a schedule... Start Date: 04/05/21 Stop Date: 08/03/21 Status: Ordered isosorbide mononitrate 30 mg oral tablet, extended release 30 mg, 1, tablet, By Mouth, Daily in AM, # 30 tablet, Refills 3, Tot. Refills 3, Maintenance, 04/06/21 12:52:00 EDT, Route to Pharmacy Electronically, [facility] #[id number], Partial fill upon patient request if the prescription is for a schedule... Start Date: 04/06/21 Status: Ordered levothyroxine 0.025 mg oral tablet 1 tablet, By Mouth, Daily, BUBBLE PACK PLEASE, # 90 tablet, 1 Refills, Maintenance, 07/12/21 7:38:00 EST, Tablet, [facility] #[id number], 148.4, cm, 06/01/21 8:57:00 EDT, Height, 97.3, kg, 06/01/21 8:57:00 EDT, Dry Weight Start Date: 07/12/21 Stop Date: 01/08/22 Status: Ordered lisinopril 20 mg oral tablet 20 mg, 1, tablet, By Mouth, Daily, BUBBLE PACK PLEASE, # 90 tablet, Refills 1, Tot. Refills 1, Maintenance, 08/30/21 12:48:00 EST, Route to Pharmacy Electronically, [facility] #[id number], 148.4, cm, 08/15/21 9:27:00 EST, Height, 97.3, kg, 06/01/... Start Date: 08/30/21 Stop Date: 02/26/22 Status: Ordered LORazepam 1 mg oral tablet 1 tablet = 1 mg, By Mouth, Daily, PRN as needed for anxiety, covering provider, # 30 tablet, 0 Refills, Maintenance, 08/08/21 17:07:00 EST, Tablet, [facility] #[id number], 148.4, cm, 06/01/21 8:57:00 EDT, Height, 97.3, kg, 06/01/21 8:57:00 EDT, D... Start Date: 08/08/21 Stop Date: 09/07/21 Status: Ordered LORazepam 1 mg oral tablet 1 tablet = 1 mg, By Mouth, Daily, PRN as needed for anxiety, # 30 tablet, 0 Refills, Maintenance, 03/24/21 12:18:00 EDT, Tablet, [facility] #[id number], 148.4, cm, 02/16/21 15:09:00 EDT, Height,97.6, kg, [...] 3 Refills, Maintenance, 04/05/21 13:22:00 EDT, Tablet, [facility] #[id number], Part... Start Date: 04/05/21 Stop Date: 08/03/21 Status: Ordered nortriptyline 50 mg oral capsule 50 mg, 1, capsule, By Mouth, Daily, # 90 capsule, Refills 1, Tot. Refills 1, Maintenance, 07/12/21 7:37:00 EST, Route to Pharmacy Electronically, [facility] #[id number], 148.4, cm, 06/01/21 8:57:00 EDT, Height, 97.3, kg, 06/01/21 8:57:00 EDT, Dry... Start Date: 07/12/21 Stop Date: 01/08/22 Status: Ordered omeprazole 20 mg oral enteric coated capsule 1 capsule = 20 mg, By Mouth, 2 times a day, BUBBLE PACK PLEASE, # 60 capsule, 3 Refills, Maintenance, 08/24/21 9:30:00 EST, EC Capsule, [facility] #[id number], 148.4, cm, 08/15/21 9:27:00 EST, Height, 97.3, kg, 06/01/21 8:57:00 EDT, Dry Weight Start Date: 08/24/21 Stop Date: 12/22/21 Status: Ordered ProAir HFA 90 mcg/inh inhalation aerosol 2 puffs, Inhalation, 4 times a day, PRN Wheezing/Shortness of Breath, # 2 each, 3 Refills, Maintenance, 11/08/20 17:08:00 EDT, Aerosol, [facility] #[id number], Partial fill upon patient request if the prescription is for a schedule II opioid drug... Start Date: 11/08/20 Stop Date: 03/08/21 Status: Ordered Singulair 10 mg oral tablet 10 mg, 1, tablet, By Mouth, Daily in PM, BUBBLE PACK PLEASE, # 30 tablet, Refills 5, Tot. Refills 5, Maintenance, 03/09/21 15:06:00 EDT, Route to Pharmacy Electronically, [facility] #[id number],148.4, cm, 02/16/21 15:09:00 EDT, Height, 97.6, kg,... Start Date: 03/09/21 Stop Date: 09/05/21 Status: Ordered trospium 60 mg oral capsule, extended release 1 capsule = 60 mg, By Mouth, Daily, # 30 capsule, 5 Refills, Maintenance, 09/29/21 15:29:00 EST, CRCapsule, [facility] #[id number], Partial fill upon patient request if the prescription is for a schedule II opioid drug., 148.4, cm, 08/15/21 9:27... Start Date: 09/29/21 Status: Ordered umeclidinium 62.5 mcg/inh inhalation powder 1 inhalation = 62.5 mcg, Inhalation, Every 24 hours, doses should be taken at least 24 hours apart,# 30 each, 11 Refills, Maintenance, 01/06/21 14:47:00 EDT, Powder, [facility] #[id number], Partial fill upon patient request if the [...] Numbness and tingling in hands(Confirmed) Active *[facility] [phone] CARE MANAG ER HELEN RENO(Confirmed) Active Pulmonary [...]
[2023-03-06 16:42] LABS: Glucose, Whole Blood 242 mg/dL (60-115)
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
[2023-03-06 20:05] VITALS: BP 125/58; PULSE 76; RESP 17; TEMP 36.8; O2SAT 95
[2023-03-06] MEDS: Acetaminophen 325 MG TABLET 650 MG PO (21:14)
[2023-03-06 21:26] LABS: Glucose, Whole Blood 135 mg/dL (60-115)
[2023-03-07 07:00] VITALS: BMI 30.1
[2023-03-07 08:00] VITALS: BP 167/69; PULSE 86; RESP 18; TEMP 36.9; O2SAT 94
[2023-03-07 08:02] LABS: Glucose, Whole Blood 91 mg/dL (60-115)
[2023-03-07 08:19] LABS: Estimated Average Glucose 94 mg/dL; Hemoglobin A1c % 4.9 %
[2023-03-07 08:31] LABS: Alanine Aminotransferase 25 U/L (0-31); Albumin Level 2.9 g/dL (3.5-5.0); Alkaline Phosphatase 64 U/L (39-117); Anion Gap 14 (12-20); Aspartate Amino Transferase 26 U/L (5-31); Bilirubin Total 2.4 mg/dL (0.0-1.0); Blood Urea Nitrogen 11 mg/dL (9-16); Calcium 9.1 mg/dL (8.4-10.2); Carbon Dioxide 22 mmol/L (22-29); Chloride 112 mmol/L (96-108); Cholesterol 133 mg/dL; Estimated Glomerular Filt Rate > 60; Glucose Fasting 93 mg/dL (60-99); HDL Cholesterol 51 mg/dL; LDL Cholesterol Calculated 74 mg/dl; Potassium 4.6 mmol/L (3.3-5.1); Sodium 143 mmol/L (135-145); Total Protein 5.6 g/dL (6.5-8.0); Triglycerides 44 mg/dL
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
[2023-03-07 11:42] LABS: Glucose, Whole Blood 207 mg/dL (60-115)
[2023-03-07] MEDS: Milk of Magnesia 30 ML ORAL.SUSP PO (12:39)
[2023-03-07] MEDS: Acetaminophen 325 MG TABLET 650 MG PO (12:39)
[2023-03-07] MEDS: Midodrine HCl 10 MG TABLET PO ×2 (15:39→20:29)
[2023-03-07] MEDS: Gabapentin 100 MG CAPSULE 200 MG PO ×2 (15:40→20:29)
[2023-03-07 16:31] LABS: Glucose, Whole Blood 141 mg/dL (60-115)
[2023-03-07] MEDS: LORazepam 0.5 MG TABLET PO (16:41)
[2023-03-07] MEDS: Omeprazole 20 MG CAPSULE.DR PO (16:42)
[2023-03-07 18:00] VITALS: BP 131/62; PULSE 72; RESP 16; TEMP 36.3; O2SAT 95
[2023-03-07 19:53] LABS: Glucose, Whole Blood 158 mg/dL (60-115)
[2023-03-07] MEDS: Insulin Lispro 100 UNIT/ML 3 ML VIAL SUBCUT (20:27)
[2023-03-07] MEDS: traZODone HCL 50 MG TABLET PO (20:28)
[2023-03-07] MEDS: Docusate Sodium 100 MG CAPSULE PO (20:28)
[2023-03-08 06:00] VITALS: BP 135/63; PULSE 79; RESP 18; TEMP 36.4; O2SAT 96
[2023-03-08] MEDS: Levothyroxine Sodium 25 MCG TABLET PO (06:24)
[2023-03-08] MEDS: Omeprazole 20 MG CAPSULE.DR PO ×2 (06:24→16:34)
[2023-03-08 07:48] LABS: Glucose, Whole Blood 111 mg/dL (60-115)
[2023-03-08] MEDS: Midodrine HCl 10 MG TABLET PO ×3 (08:50→20:10)
[2023-03-08] MEDS: Spironolactone 25 MG TABLET 50 MG PO (08:50)
[2023-03-08] MEDS: Gabapentin 100 MG CAPSULE 200 MG PO ×3 (08:51→20:10)
[2023-03-08] MEDS: Atorvastatin Calcium 20 MG TABLET PO (08:51)
[2023-03-08] MEDS: Escitalopram Oxalate 20 MG TABLET PO (08:51)
[2023-03-08] MEDS: Clopidogrel Bisulfate 75 MG TABLET PO (08:52)
[2023-03-08] MEDS: Furosemide 20 MG TABLET PO (08:52)
[2023-03-08] MEDS: Potassium Chloride Packet 20 MEQ PACKET PO (08:52)
[2023-03-08] MEDS: Docusate Sodium 100 MG CAPSULE PO ×2 (08:52→20:10)
[2023-03-08] MEDS: Milk of Magnesia 30 ML ORAL.SUSP PO (10:47)
--- NOTE | 2023-03-08 11:12 | P.PNPSI_ITS ---
Subjective Subjective Date of Service: 03/08/23 Reason For Visit: MDD F32.1 Subjective Notes: Conditional Voluntary Interim History: The nursing staff reported that she had been compliant with treatment. The occupational therapy reported that she went to a group in the evening. The staff reported that her daughter reported that she walks at home and probably we will need to assess her gait. The addiction social worker reported that they do not want her back at her home but we will discuss more. She was seen socializing with some peers in the afternoon. Today in the morning she reported that she was very tired still dysphoric. We are going to add Zyprexa at night as mood stabilizer Mental Status Exam Mental Status Exam Patient Appearance: Well Grooomed and Appropriate Patient Orientation: Person and Situation Level of Consciousness: Awake and Appropriate Patient Behavior: Guarded and Passive Mood Description: Calm Affect Description: Constricted Patient Cognition Impaired: Yes Ability to Follow Directions: Good Speech Pattern: Clear Hallucinations: None Delusions: Paranoid Ideation Thought Process: Racing and Distracted Thought Content: positive for [place] Judgement: Fair Diagnostics Vital Signs (24Hr): Vital Signs - 24 hr 03/07/23 18:00 03/08/23 06:00 Temperature 97.3 F 97.6 F Pulse Rate 72 79 Respiratory Rate 16 18 Blood Pressure 131/62 135/63 Pulse Oximetry 95 96 Oxygen Delivery Method Room Air Room Air BMI result Body Mass Index 30.1 Labs 03/07/23 07:46 Labs: Laboratory Results - last 48 hr 03/06/23 03/06/23 03/06/23 14:46 16:38 21:16 Sodium Potassium Chloride Carbon Dioxide Anion Gap BUN Creatinine Estim Creat Clear Calc Estimated GFR POC Glucose 112 242 H 135 H Fasting Glucose Estimat Average Glucose Hemoglobin A1c % Calcium Total Bilirubin AST ALT Alkaline Phosphatase Total Protein Albumin Triglycerides Cholesterol LDL Cholesterol, Calc HDL Cholesterol 03/07/23 03/07/23 03/07/23 07:46 07:46 07:54 Sodium 143 Potassium 4.6 Chloride 112 H Carbon Dioxide 22 Anion Gap 14 BUN 11 Creatinine 0.68 Estim Creat Clear Calc 63.0 Estimated GFR > 60 POC Glucose 91 Fasting Glucose 93 Estimat Average Glucose 94 Hemoglobin A1c % 4.9 Calcium 9.1 Total Bilirubin 2.4 H AST 26 ALT 25 Alkaline Phosphatase 64 Total Protein 5.6 L Albumin 2.9 L Triglycerides 44 Cholesterol 133 LDL Cholesterol, Calc 74 HDL Cholesterol 51 03/07/23 03/07/23 03/07/23 11:35 16:27 19:48 Sodium Potassium Chloride Carbon Dioxide Anion Gap BUN Creatinine Estim Creat Clear Calc Estimated GFR POC Glucose 207 H 141 H 158 H Fasting Glucose Estimat Average Glucose Hemoglobin A1c % Calcium Total Bilirubin AST ALT Alkaline Phosphatase Total Protein Albumin Triglycerides Cholesterol LDL Cholesterol, Calc HDL Cholesterol 03/08/23 07:44 Sodium Potassium Chloride Carbon Dioxide Anion Gap BUN Creatinine Estim Creat Clear Calc Estimated GFR POC Glucose 111 Fasting Glucose Estimat Average Glucose Hemoglobin A1c % Calcium Total Bilirubin AST ALT Alkaline Phosphatase Total Protein Albumin Triglycerides Cholesterol LDL Cholesterol, Calc HDL Cholesterol Medications Medications Current Medications Acetaminophen (Acetaminophen 325 Mg Tablet) 650 mg PO Q6H PRN PRN Reason: Headache/Pain Mild Scale (1-3) Last Admin: 03/07/23 12:39 Dose: 650 mg Al Hydroxide/Mg Hydroxide (Magnesium Hydrox/Alum Hydrox 30 Ml Oral.Susp) 30 ml PO Q6H PRN PRN Reason: Heartburn/Nausea Atorvastatin Calcium (Atorvastatin Calcium 20 Mg Tablet) 20 mg PO DAILY [facility] Last Admin: 03/08/23 08:51 Dose: 20 mg Clopidogrel Bisulfate (Clopidogrel Bisulfate 75 Mg Tablet) 75 mg PO DAILY [facility] Last Admin: 03/08/23 08:52 Dose: 75 mg Docusate Sodium (Docusate Sodium 100 Mg Capsule) 100 mg PO BID [facility] Last Admin: 03/08/23 08:52 Dose: 100 mg Escitalopram Oxalate (Escitalopram Oxalate 20 Mg Tablet) 20 mg PO DAILY [facility] Last Admin: 03/08/23 08:51 Dose: 20 mg Furosemide (Furosemide 20 Mg Tablet) 20 mg PO DAILY [facility]; Protocol Last Admin: 03/08/23 08:52 Dose: 20 mg Gabapentin (Gabapentin 100 Mg Capsule) 200 mg PO TID [facility] Last Admin: 03/08/23 08:51 Dose: 200 mg Hydroxyzine HCl (Hydroxyzine Hcl 25 Mg Tablet) 25 mg PO Q6H PRN PRN Reason: Anxiety Insulin Human Lispro (Insulin Lispro 100 Unit/Ml 3 Ml Vial) 0 unit SUBCUT TID [facility]; Protocol Last Admin: 03/08/23 08:54 Dose: Not Given Levothyroxine Sodium (Levothyroxine Sodium 25 Mcg Tablet) 25 mcg PO DAILY@0600 [facility] Last Admin: 03/08/23 06:24 Dose: 25 mcg Lorazepam (Lorazepam 0.5 Mg Tablet) 0.5 mg PO DAILY PRN PRN Reason: Anxiety Last Admin: 03/07/23 16:41 Dose: 0.5 mg Magnesium Hydroxide (Milk Of Magnesia 30 Ml Oral.Susp) 30 ml PO DAILY PRN PRN Reason: Constipation Last Admin: 03/08/23 10:47 Dose: 30 ml Midodrine (Midodrine Hcl 10 Mg Tablet) 10 mg PO TID [facility] Last Admin: 03/08/23 08:50 Dose: 10 mg Non-Formulary Medication (Trospium) 60 mg PO DAILY [facility] Olanzapine (Olanzapine 5 Mg Tablet) 5 mg PO DAILY [facility] Omeprazole (Omeprazole 20 Mg Capsule.Dr) 20 mg PO BID@0630,1630 [facility] Last Admin: 03/08/23 06:24 Dose: 20 mg Potassium Chloride (Potassium Chloride Packet 20 Meq Packet) 20 meq PO DAILY [facility] Last Admin: 03/08/23 08:52 Dose: 20 meq Spironolactone (Spironolactone 25 Mg Tablet) 50 mg PO DAILY [facility]; Protocol Last Admin: 03/08/23 08:50 Dose: 50 mg Tiotropium Savage (Tiotropium Savage 2.5 Mcg Inhaler) 2 puff INHALE RDAILY [facility] Last Admin: 03/08/23 08:50 Dose: 2 puff Trazodone HCl (Trazodone Hcl 50 Mg Tablet) 50 mg PO BEDTIME PRN PRN Reason: Insomnia Last Admin: 03/07/23 20:28 Dose: 50 mg Allergies Allergies Allergy/AdvReac Type Severity Reaction Status Date / Time Unable to Assess Allergy Verified 03/06/23 15:30 Assessment & Plan Assessment & Plan (1) Mood disorder: Status: Acute Code(s): F39 - Unspecified mood [affective] disorder Plan The patient is an elderly [place] female with no prior psychiatric history admitted for suicidality in the context of psychosocial stressors. The patient presents depressive symptoms elicited by depressed mood, anhedonia, lack of energy, feelings of hopelessness and suicidal ideation. But also she presented with racing thoughts, irritability, inability to concentrate and impulsivity. She is a very poor historian so we will try to gather more information. Plan 1. Gather collateral information will try to contact her daughter and get more information. 2. Continue with her regular med antidepressants and a painting. 3. The patient agreed to give Zyprexa 5 mg p.o. q.h.s. to target racing thoughts and paranoia. 4. Continue with medical workout. 5. 15 minutes checks at this moment. Reason for continued inpatient stay Substantial Risk for: inability to function, rapid decompensation and med/psych decompensation Time Spent With Patient Time: Total time managing care of this patient today __20__ minutes.
[2023-03-08 11:38] LABS: Glucose, Whole Blood 182 mg/dL (60-115)
[2023-03-08 16:15] LABS: Glucose, Whole Blood 205 mg/dL (60-115)
[2023-03-08] MEDS: Insulin Lispro 100 UNIT/ML 3 ML VIAL SUBCUT (16:34)
[2023-03-08 18:00] VITALS: BP 122/63; PULSE 75; RESP 18; TEMP 36.3; O2SAT 97
--- NOTE | 2023-03-08 18:23 | PC.NURSE ---
Daughter Vicki called today and said that her mother was on a liver transplant list for End Stage Liver Disease and per the doctors at [facility], Dr. Da Silva, she should be on Colace BID, Miralax once a day and Lactulose. The patient says that she takes one ounce of Lactulose three times a day. The goal is 2-3 soft stools a day. New orders obtained.
--- NOTE | 2023-03-08 19:05 | PC.NURSE ---
Regarding Insulin and POC checks today Dr. Anderson stated that he asked for a hospitalist consult for diabetic orders.
[2023-03-08 20:01] LABS: Glucose, Whole Blood 148 mg/dL (60-115)
[2023-03-08] MEDS: Lactulose 20 GM/30 ML SOLUTION PO (20:09)
[2023-03-08] MEDS: Acetaminophen 325 MG TABLET 650 MG PO (20:09)
[2023-03-08] MEDS: traZODone HCL 50 MG TABLET PO (20:11)
[2023-03-09 07:21] LABS: Glucose, Whole Blood 145 mg/dL (60-115)
--- NOTE | 2023-03-09 07:59 | P.PNPSI_ITS ---
Subjective Subjective Date of Service: 03/09/23 Reason For Visit: MDD F32.1 Subjective Notes: Conditional Voluntary Interim History: The nursing staff reported that her fasting blood sugars was on the 100. 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 She has been consti pated. She slept well last night. On interview the patient denies new symptoms she was seen in the common areas [facility]. Mental Status Exam Mental Status Exam Patient Appearance: Well Grooomed and Appropriate Patient Orientation: Person and Situation Level of Consciousness: Awake and Appropriate Patient Behavior: Guarded and Passive Mood Description: Withdrawn Affect Description: Constricted Patient Cognition Impaired: Yes Ability to Follow Directions: Good Speech Pattern: Clear Hallucinations: None Delusions: Not Present Thought Process: Distracted, Evasive and Slowed Thinking Thought Content: positive for [place], positive for Poverty of Content and positive for Thought Blocking Judgement: Poor Diagnostics Vital Signs (24Hr): Vital Signs - 24 hr 03/08/23 18:00 Temperature 97.3 F Pulse Rate 75 Respiratory Rate 18 Blood Pressure 122/63 Pulse Oximetry 97 Oxygen Delivery Method Room Air BMI result Body Mass Index 30.1 Labs 03/07/23 07:46 Labs: Laboratory Results - last 48 hr 03/07/23 03/07/23 03/07/23 07:46 07:46 07:54 Sodium 143 Potassium 4.6 Chloride 112 H Carbon Dioxide 22 Anion Gap 14 BUN 11 Creatinine 0.68 Estim Creat Clear Calc 63.0 Estimated GFR > 60 POC Glucose 91 Fasting Glucose 93 Estimat Average Glucose 94 Hemoglobin A1c % 4.9 Calcium 9.1 Total Bilirubin 2.4 H AST 26 ALT 25 Alkaline Phosphatase 64 Total Protein 5.6 L Albumin 2.9 L Triglycerides 44 Cholesterol 133 LDL Cholesterol, Calc 74 HDL Cholesterol 51 03/07/23 03/07/23 03/07/23 11:35 16:27 19:48 Sodium Potassium Chloride Carbon Dioxide Anion Gap BUN Creatinine Estim Creat Clear Calc Estimated GFR POC Glucose 207 H 141 H 158 H Fasting Glucose Estimat Average Glucose Hemoglobin A1c % Calcium Total Bilirubin AST ALT Alkaline Phosphatase Total Protein Albumin Triglycerides Cholesterol LDL Cholesterol, Calc HDL Cholesterol 03/08/23 03/08/23 03/08/23 07:44 11:33 16:07 Sodium Potassium Chloride Carbon Dioxide Anion Gap BUN Creatinine Estim Creat Clear Calc Estimated GFR POC Glucose 111 182 H 205 H Fasting Glucose Estimat Average Glucose Hemoglobin A1c % Calcium Total Bilirubin AST ALT Alkaline Phosphatase Total Protein Albumin Triglycerides Cholesterol LDL Cholesterol, Calc HDL Cholesterol 03/08/23 03/09/23 19:55 07:16 Sodium Potassium Chloride Carbon Dioxide Anion Gap BUN Creatinine Estim Creat Clear Calc Estimated GFR POC Glucose 148 H 145 H Fasting Glucose Estimat Average Glucose Hemoglobin A1c % Calcium Total Bilirubin AST ALT Alkaline Phosphatase Total Protein Albumin Triglycerides Cholesterol LDL Cholesterol, Calc HDL Cholesterol Medications Medications Current Medications Acetaminophen (Acetaminophen 325 Mg Tablet) 650 mg PO Q6H PRN PRN Reason: Headache/Pain Mild Scale (1-3) Last Admin: 03/08/23 20:09 Dose: 650 mg Al Hydroxide/Mg Hydroxide (Magnesium Hydrox/Alum Hydrox 30 Ml Oral.Susp) 30 ml PO Q6H PRN PRN Reason: Heartburn/Nausea Atorvastatin Calcium (Atorvastatin Calcium 20 Mg Tablet) 20 mg PO DAILY COUNTS [facility]CLUDE 234 BEDS AT THE [facility] Last Admin: 03/08/23 08:51 Dose: 20 mg Clopidogrel Bisulfate (Clopidogrel Bisulfate 75 Mg Tablet) 75 mg PO DAILY COUNTS INCLUDE 234 BEDS AT THE [facility] Last Admin: 03/08/23 08:52 Dose: 75 mg Docusate Sodium (Docusate Sodium 100 Mg Capsule) 100 mg PO BID COUNTS INCLUDE 234 BEDS AT THE [facility] Last Admin: 03/08/23 20:10 Dose: 100 mg Escitalopram Oxalate (Escitalopram Oxalate 20 Mg Tablet) 20 mg PO DAILY COUNTS INCLUDE 234 BEDS AT THE [facility] Last Admin: 03/08/23 08:51 Dose: 20 mg Furosemide (Furosemide 20 Mg Tablet) 20 mg PO DAILY COUNTS INCLUDE 234 BEDS AT THE [facility]; Protocol Last Admin: 03/08/23 08:52 Dose: 20 mg Gabapentin (Gabapentin 100 Mg Capsule) 200 mg PO TID COUNTS INCLUDE 234 BEDS AT THE [facility] Last Admin: 03/08/23 20:10 Dose: 200 mg Hydroxyzine HCl (Hydroxyzine Hcl 25 Mg Tablet) 25 mg PO Q6H PRN PRN Reason: Anxiety Insulin Human Lispro (Insulin Lispro 100 Unit/Ml 3 Ml Vial) 0 unit SUBCUT TID COUNTS INCLUDE 234 BEDS AT THE [facility]; Protocol Last Admin: 03/08/23 20:06 Dose: Not Given Lactulose (Lactulose 20 Gm/30 Ml Solution) 20 gm PO TID COUNTS INCLUDE 234 BEDS AT THE [facility] Last Admin: 03/08/23 20:09 Dose: 20 gm Levothyroxine Sodium (Levothyroxine Sodium 25 Mcg Tablet) 25 mcg PO DAILY@0600 [facility]S [facility]CLUDE 234 BEDS AT THE [facility] Last Admin: 03/08/23 06:24 Dose: 25 mcg Lorazepam (Lorazepam 0.5 Mg Tablet) 0.5 mg PO DAILY PRN PRN Reason: Anxiety Last Admin: 03/07/23 16:41 Dose: 0.5 mg Magnesium Hydroxide (Milk Of Magnesia 30 Ml Oral.Susp) 30 ml PO DAILY PRN PRN Reason: Constipation Last Admin: 03/08/23 10:47 Dose: 30 ml Midodrine (Midodrine Hcl 10 Mg Tablet) 10 mg PO TID [facility] Last Admin: 03/08/23 20:10 Dose: 10 mg Non-Formulary Medication (Trospium) 60 mg PO DAILY COUNTS INCLUDE 234 BEDS AT THE [facility] Olanzapine (Olanzapine 5 Mg Tablet) 5 mg PO DAILY COUNTS INCLUDE 234 BEDS AT THE [facility] Omeprazole (Omeprazole 20 Mg Capsule.Dr) 20 mg PO BID@0630,1630 COUNTS [facility]CLUDE 234 BEDS AT THE [facility] Last Admin: 03/08/23 16:34 Dose: 20 mg Polyethylene Glycol (Polyethylene Glycol 3350 17 Gm Powd.Pack) 17 gm PO DAILY COUNTS INCLUDE 234 BEDS AT THE [facility] Potassium Chloride (Potassium Chloride Packet 20 Meq Packet) 20 meq PO DAILY COUNTS INCLUDE 234 BEDS AT THE [facility] Last Admin: 03/08/23 08:52 Dose: 20 meq Spironolactone (Spironolactone 25 Mg Tablet) 50 mg PO DAILY COUNTS [facility]CLUDE 234 BEDS AT THE [facility]; Protocol Last Admin: 03/08/23 08:50 Dose: 50 mg Tiotropium [place] (Tiotropium [place] 2.5 Mcg Inhaler) 2 puff INHALE RDAILY COUNTS INCLUDE 234 BEDS AT THE [facility] Last Admin: 03/08/23 08:50 Dose: 2 puff Trazodone HCl (Trazodone Hcl 50 Mg Tablet) 50 mg PO BEDTIME PRN PRN Reason: Insomnia Last Admin: 03/08/23 20:11 Dose: 50 mg Allergies Allergies Allergy/AdvReac Type Severity Reaction Status Date / Time Unable to Assess Allergy Verified 03/06/23 15:30 Assessment & Plan Assessment & Plan (1) Mood disorder: Status: Acute Code(s): F39 - Unspecified mood [affective] disorder Plan The patient is an elderly [place] female with no prior psychiatric history admitted for suicidality in the context of psychosocial stressors. The patient presents depressive symptoms elicited by depressed mood, anhedonia, lack of energy, feelings of hopelessness and suicidal ideation. But also she presented with racing thoughts, irritability, inability to concentrate and impulsivity. She is a very poor historian so we will try to gather more information. Plan 1. Gather collateral information will try to contact her daughter and get more information. 2. Continue with her regular med antidepressants and a painting. 3. The patient agreed to give Zyprexa 5 mg p.o. q.h.s. to target racing thoughts and paranoia. 4. Continue with medical workout. 5. 15 minutes checks at this moment. Reason for continued inpatient stay Substantial Risk for: inability to function, rapid decompensation and med/psych decompensation Time Spent With Patient Time: Total time managing care of this patient today __20__ minutes.
[2023-03-09 08:00] VITALS: BP 130/68; PULSE 77; RESP 18; TEMP 36.8; O2SAT 95
[2023-03-09] MEDS: polyethylene glycoL 3350 17 GM POWD.PACK PO (08:24)
[2023-03-09] MEDS: Atorvastatin Calcium 20 MG TABLET PO (08:26)
[2023-03-09] MEDS: Lactulose 20 GM/30 ML SOLUTION PO ×3 (08:26→20:52)
[2023-03-09] MEDS: Clopidogrel Bisulfate 75 MG TABLET PO (08:26)
[2023-03-09] MEDS: Spironolactone 25 MG TABLET 50 MG PO (08:26)
[2023-03-09] MEDS: Escitalopram Oxalate 20 MG TABLET PO (08:26)
[2023-03-09] MEDS: OLANZapine 5 MG TABLET PO (08:27)
[2023-03-09] MEDS: Docusate Sodium 100 MG CAPSULE PO ×2 (08:27→20:52)
[2023-03-09] MEDS: Potassium Chloride Packet 20 MEQ PACKET PO (08:27)
[2023-03-09] MEDS: Furosemide 20 MG TABLET PO (08:27)
[2023-03-09] MEDS: Gabapentin 100 MG CAPSULE 200 MG PO ×3 (08:35→20:53)
[2023-03-09] MEDS: Omeprazole 20 MG CAPSULE.DR PO ×2 (08:38→16:09)
[2023-03-09] MEDS: Levothyroxine Sodium 25 MCG TABLET PO (08:38)
[2023-03-09 11:33] LABS: Glucose, Whole Blood 193 mg/dL (60-115)
[2023-03-09] MEDS: Insulin Lispro 100 UNIT/ML 3 ML VIAL SUBCUT ×2 (11:36→16:31)
[2023-03-09 14:45] VITALS: BP 144/65; PULSE 75
[2023-03-09] MEDS: Ibuprofen 400 MG TABLET PO (16:06)
[2023-03-09 16:23] LABS: Glucose, Whole Blood 164 mg/dL (60-115)
[2023-03-09 18:00] VITALS: BP 114/57; PULSE 71; RESP 16; TEMP 36.1; O2SAT 95
[2023-03-09 19:49] LABS: Glucose, Whole Blood 130 mg/dL (60-115)
[2023-03-09] MEDS: traZODone HCL 50 MG TABLET PO (20:52)
[2023-03-09] MEDS: Midodrine HCl 10 MG TABLET PO (20:53)
[2023-03-10 07:37] LABS: Glucose, Whole Blood 132 mg/dL (60-115)
[2023-03-10 08:00] VITALS: BP 167/71; PULSE 80; RESP 18; TEMP 36.7; O2SAT 98
[2023-03-10] MEDS: polyethylene glycoL 3350 17 GM POWD.PACK PO (08:10)
[2023-03-10] MEDS: OLANZapine 5 MG TABLET PO (08:11)
[2023-03-10] MEDS: Spironolactone 25 MG TABLET 50 MG PO (08:12)
[2023-03-10] MEDS: Gabapentin 100 MG CAPSULE 200 MG PO ×3 (08:12→20:50)
[2023-03-10] MEDS: Furosemide 20 MG TABLET PO (08:12)
[2023-03-10] MEDS: Docusate Sodium 100 MG CAPSULE PO ×2 (08:12→20:50)
[2023-03-10] MEDS: Clopidogrel Bisulfate 75 MG TABLET PO (08:12)
[2023-03-10] MEDS: Atorvastatin Calcium 20 MG TABLET PO (08:12)
[2023-03-10] MEDS: Levothyroxine Sodium 25 MCG TABLET PO (08:12)
[2023-03-10] MEDS: Lactulose 20 GM/30 ML SOLUTION PO ×3 (08:13→20:49)
[2023-03-10] MEDS: Omeprazole 20 MG CAPSULE.DR PO ×2 (08:13→15:38)
[2023-03-10] MEDS: Escitalopram Oxalate 20 MG TABLET PO (08:13)
[2023-03-10] MEDS: Potassium Chloride Packet 20 MEQ PACKET PO (08:13)
--- NOTE | 2023-03-10 08:32 | P.PNPSI_ITS ---
Subjective Subjective Date of Service: 03/10/23 Reason For Visit: MDD F32.1 Subjective Notes: Conditional Voluntary Interim History: The nursing staff reported that her fasting blood sugars had been okay. She carries a diagnosis of liver failure due to hepatitis C with a waiting list for liver transplant. The nursing staff reported that she slept well last night. On interview the patient denies new symptoms besides insomnia, she feels less dysphoric. Mental Status Exam Mental Status Exam Patient Appearance: Well Grooomed and Appropriate Patient Orientation: Person and Situation Level of Consciousness: Awake and Appropriate Patient Behavior: Guarded and Passive Mood Description: Calm Affect Description: Constricted Patient Cognition Impaired: Yes Ability to Follow Directions: Good Speech Pattern: Clear Hallucinations: None Delusions: Not Present Thought Process: Distracted Thought Content: positive for [place] and positive for Poverty of Content Judgement: Fair Diagnostics Vital Signs (24Hr): Vital Signs - 24 hr 03/09/23 14:45 03/09/23 18:00 Temperature 96.9 F Pulse Rate 75 71 Respiratory Rate 16 Blood Pressure 144/65 H 114/57 L Pulse Oximetry 95 Oxygen Delivery Method Room Air BMI result Body Mass Index 30.1 Labs 03/07/23 07:46 Labs: Laboratory Results - last 48 hr 03/08/23 03/08/23 03/08/23 11:33 16:07 19:55 POC Glucose 182 H 205 H 148 H 03/09/23 03/09/23 03/09/23 07:16 11:29 16:19 POC Glucose 145 H 193 H 164 H 03/09/23 03/10/23 19:44 07:33 POC Glucose 130 H 132 H Medications Medications Current Medications Al Hydroxide/Mg Hydroxide (Magnesium Hydrox/Alum Hydrox 30 Ml Oral.Susp) 30 ml PO Q6H PRN PRN Reason: Heartburn/Nausea Atorvastatin Calcium (Atorvastatin Calcium 20 Mg Tablet) 20 mg PO DAILY [facility] Last Admin: 03/10/23 08:12 Dose: 20 mg Clopidogrel Bisulfate (Clopidogrel Bisulfate 75 Mg Tablet) 75 mg PO DAILY [facility] Last Admin: 03/10/23 08:12 Dose: 75 mg Docusate Sodium (Docusate Sodium 100 Mg Capsule) 100 mg PO BID [facility] Last Admin: 03/10/23 08:12 Dose: 100 mg Escitalopram Oxalate (Escitalopram Oxalate 20 Mg Tablet) 20 mg PO DAILY [facility] Last Admin: 03/10/23 08:13 Dose: 20 mg Furosemide (Furosemide 20 Mg Tablet) 20 mg PO DAILY [facility]; Protocol Last Admin: 03/10/23 08:12 Dose: 20 mg Gabapentin (Gabapentin 100 Mg Capsule) 200 mg PO TID [facility] Last Admin: 03/10/23 08:12 Dose: 200 mg Hydroxyzine HCl (Hydroxyzine Hcl 25 Mg Tablet) 25 mg PO Q6H PRN PRN Reason: Anxiety Ibuprofen (Ibuprofen 400 Mg Tablet) 400 mg PO Q4H PRN PRN Reason: Pain, Moderate(Pain Scale 4-6) Last Admin: 03/09/23 16:06 Dose: 400 mg Insulin Human Lispro (Insulin Lispro 100 Unit/Ml 3 Ml Vial) 0 unit SUBCUT QIDWMHS [facility]; Protocol Last Admin: 03/10/23 08:28 Dose: Not Given Lactulose (Lactulose 20 Gm/30 Ml Solution) 20 gm PO TID [facility] Last Admin: 03/10/23 08:13 Dose: 20 gm Levothyroxine Sodium (Levothyroxine Sodium 25 Mcg Tablet) 25 mcg PO DAILY@0600 [facility] Last Admin: 03/10/23 08:12 Dose: 25 mcg Lorazepam (Lorazepam 0.5 Mg Tablet) 0.5 mg PO DAILY PRN PRN Reason: Anxiety Last Admin: 03/07/23 16:41 Dose: 0.5 mg Magnesium Hydroxide (Milk Of Magnesia 30 Ml Oral.Susp) 30 ml PO DAILY PRN PRN Reason: Constipation Last Admin: 03/08/23 10:47 Dose: 30 ml Midodrine (Midodrine Hcl 10 Mg Tablet) 10 mg PO TID [facility] Last Admin: 03/10/23 08:18 Dose: Not Given Non-Formulary Medication (Trospium) 60 mg PO DAILY [facility] Olanzapine (Olanzapine 5 Mg Tablet) 5 mg PO DAILY [facility] Last Admin: 03/10/23 08:11 Dose: 5 mg Omeprazole (Omeprazole 20 Mg Capsule.Dr) 20 mg PO BID@0630,1630 [facility] Last Admin: 03/10/23 08:13 Dose: 20 mg Polyethylene Glycol (Polyethylene Glycol 3350 17 Gm Powd.Pack) 17 gm PO DAILY [facility] Last Admin: 03/10/23 08:10 Dose: 17 gm Potassium Chloride (Potassium Chloride Packet 20 Meq Packet) 20 meq PO DAILY [facility] Last Admin: 07/30/23 08:13 Dose: 20 meq Spironolactone (Spironolactone 25 Mg Tablet) 50 mg PO DAILY [facility]; Protocol Last Admin: 03/10/23 08:12 Dose: 50 mg Tiotropium [place] (Tiotropium [place] 2.5 Mcg Inhaler) 2 puff INHALE RDAILY [facility] Last Admin: 03/10/23 08:32 Dose: 2 puff Trazodone HCl (Trazodone Hcl 50 Mg Tablet) 50 mg PO BEDTIME PRN PRN Reason: Insomnia Last Admin: 03/09/23 20:52 Dose: 50 mg Allergies Allergies Allergy/AdvReac Type Severity Reaction Status Date / Time Unable to Assess Allergy Verified 03/06/23 15:30 Assessment & Plan Assessment & Plan (1) Mood disorder: Status: Acute Code(s): F39 - Unspecified mood [affective] disorder Plan The patient is an elderly Chinese female with no prior psychiatric history admitted for suicidality in the context of psychosocial stressors. The patient presents depressive symptoms elicited by depressed mood, anhedonia, lack of energy, feelings of hopelessness and suicidal ideation. But also she presented with racing thoughts, irritability, inability to concentrate and impulsivity. She is a very poor historian so we will try to gather more information. Plan 1. Gather collateral information will try to contact her daughter and get more information. 2. Continue with her regular med antidepressants. 3. The patient agreed to try Zyprexa 5 mg p.o. q.h.s. to target racing thoughts and paranoia. 4. Continue with medical workout. 5. 15 minutes checks at this moment. 6. Increase PRN Trazodone up to 100 mg po qhs PRN Reason for continued inpatient stay Substantial Risk for: inability to function, rapid decompensation and med/psych decompensation Time Spent With Patient Time: Total time managing care of this patient today _20___ minutes.
[2023-03-10] MEDS: Ibuprofen 400 MG TABLET PO ×2 (10:24→18:39)
[2023-03-10 11:33] LABS: Glucose, Whole Blood 208 mg/dL (60-115)
[2023-03-10] MEDS: Insulin Lispro 100 UNIT/ML 3 ML VIAL SUBCUT ×2 (11:36→20:49)
[2023-03-10 15:22] LABS: Glucose, Whole Blood 147 mg/dL (60-115)
[2023-03-10 18:00] VITALS: BP 147/65; PULSE 83; RESP 16
[2023-03-10 20:41] LABS: Glucose, Whole Blood 190 mg/dL (60-115)
[2023-03-11] MEDS: Levothyroxine Sodium 25 MCG TABLET PO (06:45)
[2023-03-11] MEDS: Omeprazole 20 MG CAPSULE.DR PO ×2 (06:45→16:33)
[2023-03-11 08:05] VITALS: BP 152/57; PULSE 80; RESP 18; TEMP 36.7; O2SAT 98
[2023-03-11 08:07] LABS: Glucose, Whole Blood 135 mg/dL (60-115)
[2023-03-11] MEDS: Lactulose 20 GM/30 ML SOLUTION PO ×3 (08:49→21:09)
[2023-03-11] MEDS: polyethylene glycoL 3350 17 GM POWD.PACK PO (08:50)
[2023-03-11] MEDS: Potassium Chloride Packet 20 MEQ PACKET PO (08:50)
[2023-03-11] MEDS: Furosemide 20 MG TABLET PO (08:52)
[2023-03-11] MEDS: Escitalopram Oxalate 20 MG TABLET PO (08:52)
[2023-03-11] MEDS: Clopidogrel Bisulfate 75 MG TABLET PO (08:52)
[2023-03-11] MEDS: Docusate Sodium 100 MG CAPSULE PO ×2 (08:52→21:09)
[2023-03-11] MEDS: Gabapentin 100 MG CAPSULE 200 MG PO ×3 (08:53→21:09)
[2023-03-11] MEDS: Atorvastatin Calcium 20 MG TABLET PO (08:53)
[2023-03-11] MEDS: Spironolactone 25 MG TABLET 50 MG PO (08:54)
[2023-03-11] MEDS: Midodrine HCl 10 MG TABLET PO ×3 (08:54→21:09)
[2023-03-11] MEDS: OLANZapine 5 MG TABLET PO (08:54)
--- NOTE | 2023-03-11 10:12 | HO.PSYCHPN ---
Subjective Subjective Date of Service: 03/11/23 Reason For Visit: MDD F32.1 Subjective Notes: Conditional Voluntary Interim History: Pt reports abdominal pain, no BM- see on records chronic constipation, abdominal pain. Will check KUB to r/o obstruction and consider changes in BM regimen. Pt reports sleeping well. She denies SI/HI. She reports mood is good. She is ambulating with walker. No behavioral concerns. Midodrine has been held as BP slightly high 147/65. Medication Compliance: Yes Review of Systems Review of Systems Chronic abdominal pain Chronic constipation Denies any acute medical complaints Yes all other systems are reviewed and are negative Mental Status Exam Mental Status Exam Patient Appearance: Well Grooomed and Appropriate Patient Orientation: Person and Situation Level of Consciousness: Awake and Appropriate Patient Behavior: Guarded and Passive Mood Description: Calm Affect Description: Constricted Patient Cognition Impaired: Yes Ability to Follow Directions: Good Speech Pattern: Clear Diagnostics Vital Signs (24Hr): Vital Signs - 24 hr 03/10/23 18:00 03/11/23 08:05 Temperature 98.1 F Pulse Rate 83 80 Respiratory Rate 16 18 Blood Pressure 147/65 H 152/57 H Pulse Oximetry 98 Oxygen Delivery Method Room Air BMI result Body Mass Index 30.1 Labs 03/07/23 07:46 Labs: Laboratory Results - last 48 hr 03/09/23 03/09/23 03/09/23 11:29 16:19 19:44 POC Glucose 193 H 164 H 130 H 03/10/23 03/10/23 03/10/23 07:33 11:29 15:05 POC Glucose 132 H 208 H 147 H 03/10/23 03/11/23 20:35 08:02 POC Glucose 190 H 135 H Medications Medications Current Medications Al Hydroxide/Mg Hydroxide (Magnesium Hydrox/Alum Hydrox 30 Ml Oral.Susp) 30 ml PO Q6H PRN PRN Reason: Heartburn/Nausea Atorvastatin Calcium (Atorvastatin Calcium 20 Mg Tablet) 20 mg PO DAILY [facility] Last Admin: 03/11/23 08:53 Dose: 20 mg Clopidogrel Bisulfate (Clopidogrel Bisulfate 75 Mg Tablet) 75 mg PO DAILY [facility] Last Admin: 03/11/23 08:52 Dose: 75 mg Docusate Sodium (Docusate Sodium 100 Mg Capsule) 100 mg PO BID [facility] Last Admin: 03/11/23 08:52 Dose: 100 mg Escitalopram Oxalate (Escitalopram Oxalate 20 Mg Tablet) 20 mg PO DAILY [facility] Last Admin: 03/11/23 08:52 Dose: 20 mg Furosemide (Furosemide 20 Mg Tablet) 20 mg PO DAILY [facility]; Protocol Last Admin: 03/11/23 08:52 Dose: 20 mg Gabapentin (Gabapentin 100 Mg Capsule) 200 mg PO TID [facility] Last Admin: 03/11/23 08:53 Dose: 200 mg Hydroxyzine HCl (Hydroxyzine Hcl 25 Mg Tablet) 25 mg PO Q6H PRN PRN Reason: Anxiety Ibuprofen (Ibuprofen 400 Mg Tablet) 400 mg PO Q4H PRN PRN Reason: Pain, Moderate(Pain Scale 4-6) Last Admin: 03/10/23 18:39 Dose: 400 mg Insulin Human Lispro (Insulin Lispro 100 Unit/Ml 3 Ml Vial) 0 unit SUBCUT QIDWMHS [facility]; Protocol Last Admin: 03/11/23 08:53 Dose: Not Given Lactulose (Lactulose 20 Gm/30 Ml Solution) 20 gm PO TID [facility] Last Admin: 03/11/23 08:49 Dose: 20 gm Levothyroxine Sodium (Levothyroxine Sodium 25 Mcg Tablet) 25 mcg PO DAILY@0600 [facility] Last Admin: 03/11/23 06:45 Dose: 25 mcg Lorazepam (Lorazepam 0.5 Mg Tablet) 0.5 mg PO DAILY PRN PRN Reason: Anxiety Last Admin: 03/07/23 16:41 Dose: 0.5 mg Magnesium Hydroxide (Milk Of Magnesia 30 Ml Oral.Susp) 30 ml PO DAILY PRN PRN Reason: Constipation Last Admin: 03/08/23 10:47 Dose: 30 ml Midodrine (Midodrine Hcl 10 Mg Tablet) 10 mg PO TID [facility] Last Admin: 03/11/23 08:54 Dose: 10 mg Non-Formulary Medication (Trospium) 60 mg PO DAILY [facility] Olanzapine (Olanzapine 5 Mg Tablet) 5 mg PO DAILY [facility] Last Admin: 03/11/23 08:54 Dose: 5 mg Omeprazole (Omeprazole 20 Mg Capsule.Dr) 20 mg PO BID@0630,1630 [facility] Last Admin: 03/11/23 06:45 Dose: 20 mg Polyethylene Glycol (Polyethylene Glycol 3350 17 Gm Powd.Pack) 17 gm PO DAILY [facility] Last Admin: 03/11/23 08:50 Dose: 17 gm Potassium Chloride (Potassium Chloride Packet 20 Meq Packet) 20 meq PO DAILY [facility] Last Admin: 03/11/23 08:50 Dose: 20 meq Spironolactone (Spironolactone 25 Mg Tablet) 50 mg PO DAILY [facility]; Protocol Last Admin: 03/11/23 08:54 Dose: 50 mg Tiotropium [place] (Tiotropium [place] 2.5 Mcg Inhaler) 2 puff INHALE RDAILY [facility] Last Admin: 03/11/23 08:49 Dose: 2 puff Trazodone HCl (Trazodone Hcl 100 Mg Tablet) 100 mg PO BEDTIME PRN PRN Reason: Insomnia Allergies Allergies Allergy/AdvReac Type Severity Reaction Status Date / Time Unable to Assess Allergy Verified 03/06/23 15:30 Assessment & Plan Assessment & Plan (1) Mood disorder: Status: Acute Code(s): F39 - Unspecified mood [affective] disorder Plan The patient is an elderly [place]ron[place] female with no prior psychiatric history admitted for suicidality in the context of psychosocial stressors. The patient presents depressive symptoms elicited by depressed mood, anhedonia, lack of energy, feelings of hopelessness and suicidal ideation. But also she presented with racing thoughts, irritability, inability to concentrate and impulsivity. She is a very poor historian so we will try to gather more information. Plan 1. Gather collateral information will try to contact her daughter and get more information. 2. Continue with her regular med antidepressants. 3. The patient agreed to try Zyprexa 5 mg p.o. q.h.s. to target racing thoughts and paranoia. 4. Continue with medical workout. 5. 15 minutes checks at this moment. 6. Increase PRN Trazodone up to 100 mg po qhs PRN 03/11- KUB r/o obstruction with chronic constipation and abdominal pain. Otherwise pt denies SI/HI. Reason for continued inpatient stay Substantial Risk for: inability to function Time Spent With Patient Time: Total time managing care of this patient today ____ minutes.
[2023-03-11 11:43] LABS: Glucose, Whole Blood 212 mg/dL (60-115)
[2023-03-11] MEDS: Insulin Lispro 100 UNIT/ML 3 ML VIAL SUBCUT ×2 (12:02→16:32)
[2023-03-11 16:26] LABS: Glucose, Whole Blood 170 mg/dL (60-115)
[2023-03-11 19:30] VITALS: BP 135/60; PULSE 79; TEMP 36.3; O2SAT 97
[2023-03-11] MEDS: Sennosides 8.6 MG TABLET PO (21:09)
[2023-03-11] MEDS: traZODone HCL 100 MG TABLET PO (21:09)
[2023-03-11 21:19] LABS: Glucose, Whole Blood 145 mg/dL (60-115)
[2023-03-12] MEDS: Omeprazole 20 MG CAPSULE.DR PO ×2 (06:02→16:56)
[2023-03-12] MEDS: Levothyroxine Sodium 25 MCG TABLET PO (06:02)
[2023-03-12 07:49] LABS: Glucose, Whole Blood 200 mg/dL (60-115)
[2023-03-12 07:55] VITALS: BP 142/62; PULSE 87; RESP 18; TEMP 36.5; O2SAT 94
[2023-03-12] MEDS: Insulin Lispro 100 UNIT/ML 3 ML VIAL SUBCUT ×4 (08:29→21:32)
[2023-03-12] MEDS: polyethylene glycoL 3350 17 GM POWD.PACK PO ×2 (08:29→21:32)
[2023-03-12] MEDS: Lactulose 20 GM/30 ML SOLUTION PO ×3 (08:29→21:33)
[2023-03-12] MEDS: Spironolactone 25 MG TABLET 50 MG PO (08:31)
[2023-03-12] MEDS: Docusate Sodium 100 MG CAPSULE PO ×2 (08:32→21:34)
[2023-03-12] MEDS: OLANZapine 5 MG TABLET PO (08:32)
[2023-03-12] MEDS: Gabapentin 100 MG CAPSULE 200 MG PO ×3 (08:32→21:34)
[2023-03-12] MEDS: Escitalopram Oxalate 20 MG TABLET PO (08:32)
[2023-03-12] MEDS: Midodrine HCl 10 MG TABLET PO ×3 (08:32→21:34)
[2023-03-12] MEDS: Clopidogrel Bisulfate 75 MG TABLET PO (08:32)
[2023-03-12] MEDS: Furosemide 20 MG TABLET PO (08:32)
[2023-03-12] MEDS: Atorvastatin Calcium 20 MG TABLET PO (08:32)
[2023-03-12] MEDS: Potassium Chloride Packet 20 MEQ PACKET PO (08:33)
--- NOTE | 2023-03-12 10:54 | P.PNPSI_ITS ---
Subjective Subjective Date of Service: 03/12/23 Reason For Visit: MDD F32.1 Subjective Notes: Conditional Voluntary Interim History: The nursing staff reported the patient has been pleasant and cooperative. She complained of abdominal pain, she did not have any bowel movements but on physical exam it is clear that she is passing gases. Her fasting blood sugar h as been stable. The staff has noticed that she is been sleeping in between meals. The occupational therapist reported that she does not goes to group she sleeps all day long. On interview the patient denies new symptoms still dysphoric. I will offer her today increase of antidepressants or starting Lamictal. Mental Status Exam Mental Status Exam Patient Appearance: Well Grooomed Patient Orientation: Person and Situation Level of Consciousness: Awake and Appropriate Patient Behavior: Guarded and Passive Mood Description: Calm Affect Description: Constricted Patient Cognition Impaired: Yes Ability to Follow Directions: Good Speech Pattern: Clear Hallucinations: None Delusions: Not Present Thought Process: Linear Thought Content: positive for [place] and positive for Poverty of Content Judgement: Fair Diagnostics Vital Signs (24Hr): Vital Signs - 24 hr 03/11/23 19:30 03/12/23 07:55 Temperature 97.4 F 97.7 F Pulse Rate 79 87 Respiratory Rate 18 Blood Pressure 135/60 142/62 H Pulse Oximetry 97 94 Oxygen Delivery Method Room Air Room Air BMI result Body Mass Index 30.1 Labs 03/07/23 07:46 Labs: Laboratory Results - last 48 hr 03/10/23 03/10/23 03/10/23 11:29 15:05 20:35 POC Glucose 208 H 147 H 190 H 03/11/23 03/11/23 03/11/23 08:02 11:38 16:16 POC Glucose 135 H 212 H 170 H 03/11/23 03/12/23 21:06 07:44 POC Glucose 145 H 200 H Imaging Radiology Impressions: ITS Impressions KUB X-Ray 03/11/23 14:33 IMPRESSION: 1. Moderate constipation. 2. Biliary stent in the right upper quadrant with cholecystectomy nissa in the right upper quadrant. Medications Medications Current Medications Al Hydroxide/Mg Hydroxide (Magnesium Hydrox/Alum Hydrox 30 Ml Oral.Susp) 30 ml PO Q6H PRN PRN Reason: Heartburn/Nausea Atorvastatin Calcium (Atorvastatin Calcium 20 Mg Tablet) 20 mg PO DAILY [facility] Last Admin: 03/12/23 08:32 Dose: 20 mg Clopidogrel Bisulfate (Clopidogrel Bisulfate 75 Mg Tablet) 75 mg PO DAILY [facility] Last Admin: 03/12/23 08:32 Dose: 75 mg Docusate Sodium (Docusate Sodium 100 Mg Capsule) 100 mg PO BID [facility] Last Admin: 03/12/23 08:32 Dose: 100 mg Escitalopram Oxalate (Escitalopram Oxalate 20 Mg Tablet) 20 mg PO DAILY [facility] Last Admin: 03/12/23 08:32 Dose: 20 mg Furosemide (Furosemide 20 Mg Tablet) 20 mg PO DAILY [facility]; Protocol Last Admin: 03/12/23 08:32 Dose: 20 mg Gabapentin (Gabapentin 100 Mg Capsule) 200 mg PO TID [facility] Last Admin: 03/12/23 08:32 Dose: 200 mg Hydroxyzine HCl (Hydroxyzine Hcl 25 Mg Tablet) 25 mg PO Q6H PRN PRN Reason: Anxiety Ibuprofen (Ibuprofen 400 Mg Tablet) 400 mg PO Q4H PRN PRN Reason: Pain, Moderate(Pain Scale 4-6) Last Admin: 03/10/23 18:39 Dose: 400 mg Insulin Human Lispro (Insulin Lispro 100 Unit/Ml 3 Ml Vial) 0 unit SUBCUT QIDWMHS [facility]; Protocol Last Admin: 03/12/23 08:29 Dose: 2 unit Lactulose (Lactulose 20 Gm/30 Ml Solution) 20 gm PO TID [facility] Last Admin: 03/12/23 08:29 Dose: 20 gm Levothyroxine Sodium (Levothyroxine Sodium 25 Mcg Tablet) 25 mcg PO DAILY@0600 [facility] Last Admin: 03/12/23 06:02 Dose: 25 mcg Lorazepam (Lorazepam 0.5 Mg Tablet) 0.5 mg PO DAILY PRN PRN Reason: Anxiety Last Admin: 03/07/23 16:41 Dose: 0.5 mg Magnesium Hydroxide (Milk Of Magnesia 30 Ml Oral.Susp) 30 ml PO DAILY PRN PRN Reason: Constipation Last Admin: 03/08/23 10:47 Dose: 30 ml Midodrine (Midodrine Hcl 10 Mg Tablet) 10 mg PO TID [facility] Last Admin: 03/12/23 08:32 Dose: 10 mg Non-Formulary Medication (Trospium) 60 mg PO DAILY [facility] Olanzapine (Olanzapine 5 Mg Tablet) 5 mg PO DAILY [facility] Last Admin: 03/12/23 08:32 Dose: 5 mg Omeprazole (Omeprazole 20 Mg Capsule.) 20 mg PO BID@0630,1630 [facility] Last Admin: 03/12/23 06:02 Dose: 20 mg Polyethylene Glycol (Polyethylene Glycol 3350 17 Gm Powd.Pack) 17 gm PO DAILY [facility] Last Admin: 03/12/23 08:29 Dose: 17 gm Potassium Chloride (Potassium Chloride Packet 20 Meq Packet) 20 meq PO DAILY [facility] Last Admin: 03/12/23 08:33 Dose: 20 meq Senna (Sennosides 8.6 Mg Tablet) 8.6 mg PO BEDTIME [facility] Last Admin: 03/11/23 21:09 Dose: 8.6 mg Spironolactone (Spironolactone 25 Mg Tablet) 50 mg PO DAILY [facility]; Protocol Last Admin: 03/12/23 08:31 Dose: 50 mg Tiotropium [place] (Tiotropium [place] 2.5 Mcg Inhaler) 2 puff INHALE RDAILY [facility] Last Admin: 03/12/23 08:29 Dose: 2 puff Trazodone HCl (Trazodone Hcl 100 Mg Tablet) 100 mg PO BEDTIME PRN PRN Reason: Insomnia Last Admin: 03/11/23 21:09 Dose: 100 mg Allergies Allergies Allergy/AdvReac Type Severity Reaction Status Date / Time Unable to Assess Allergy Verified 03/06/23 15:30 Assessment & Plan Assessment & Plan (1) Mood disorder: Status: Acute Code(s): F39 - Unspecified mood [affective] disorder Plan The patient is an elderly [place] female with no prior psychiatric history admitted for suicidality in the context of psychosocial stressors. The patient presents depressive symptoms elicited by depressed mood, anhedonia, lack of energy, feelings of hopelessness and suicidal ideation. But also she presented with racing thoughts, irritability, inability to concentrate and impulsivity. She is a very poor historian so we will try to gather more information. Plan 1. Gather collateral information will try to contact her daughter and get more information. 2. Continue with her regular med antidepressants. 3. The patient agreed to try Zyprexa 5 mg p.o. q.h.s. to target racing thoughts and paranoia. 4. Continue with medical workout. 5. 15 minutes checks at this moment. 6. Increase PRN Trazodone up to 100 mg po qhs PRN 7. Start Lamictal 25 mg p.o. daily to target depression and mood lability. 8. Increase Miralax bid due to constipation Reason for continued inpatient stay Substantial Risk for: inability to function, rapid decompensation and med/psych decompensation Time Spent With Patient Time: Total time managing care of this patient today __20__ minutes.
[2023-03-12 11:41] LABS: Glucose, Whole Blood 212 mg/dL (60-115)
[2023-03-12 16:42] LABS: Glucose, Whole Blood 213 mg/dL (60-115)
[2023-03-12 19:05] VITALS: BP 134/60; PULSE 87; RESP 20; TEMP 37.3; O2SAT 95
[2023-03-12 20:33] LABS: Glucose, Whole Blood 265 mg/dL (60-115)
[2023-03-12] MEDS: Ibuprofen 400 MG TABLET PO (21:33)
[2023-03-12] MEDS: Sennosides 8.6 MG TABLET PO (21:34)
[2023-03-12] MEDS: traZODone HCL 100 MG TABLET PO (21:34)
[2023-03-13] MEDS: Omeprazole 20 MG CAPSULE.DR PO ×2 (06:11→15:48)
[2023-03-13] MEDS: Levothyroxine Sodium 25 MCG TABLET PO (06:11)
[2023-03-13 07:46] LABS: Glucose, Whole Blood 152 mg/dL (60-115)
[2023-03-13 08:08] VITALS: BP 137/63; PULSE 84; RESP 18; TEMP 35.9; O2SAT 100
[2023-03-13] MEDS: Lactulose 20 GM/30 ML SOLUTION PO ×3 (08:09→20:38)
[2023-03-13] MEDS: Insulin Lispro 100 UNIT/ML 3 ML VIAL SUBCUT ×3 (08:09→21:18)
[2023-03-13] MEDS: Clopidogrel Bisulfate 75 MG TABLET PO (08:12)
[2023-03-13] MEDS: polyethylene glycoL 3350 17 GM POWD.PACK PO ×2 (08:12→20:37)
[2023-03-13] MEDS: Docusate Sodium 100 MG CAPSULE PO ×2 (08:13→20:37)
[2023-03-13] MEDS: Escitalopram Oxalate 20 MG TABLET PO (08:13)
[2023-03-13] MEDS: Gabapentin 100 MG CAPSULE 200 MG PO ×3 (08:13→20:37)
[2023-03-13] MEDS: Spironolactone 25 MG TABLET 50 MG PO (08:13)
[2023-03-13] MEDS: Atorvastatin Calcium 20 MG TABLET PO (08:13)
[2023-03-13] MEDS: OLANZapine 5 MG TABLET PO (08:13)
[2023-03-13] MEDS: Furosemide 20 MG TABLET PO (08:14)
[2023-03-13] MEDS: Potassium Chloride Packet 20 MEQ PACKET PO (08:14)
[2023-03-13 11:42] LABS: Glucose, Whole Blood 236 mg/dL (60-115)
--- NOTE | 2023-03-13 13:20 | HO.PSYCHPN ---
Subjective Subjective Date of Service: 03/13/23 Reason For Visit: MDD F32.1 Subjective Notes: Conditional Voluntary Interim History: The nursing staff reported the patient had a large BM yesterday. She was been quiet cooperative with flat affect. Before the BM she was complaining of abdominal pain 04/21. The social secretary reported that she collapsed his home and probably she could be discharged back. The occupational therapist reported that has participating minimally on groups. On interview the patient denies new symptoms she reports feeling fine Mental Status Exam Mental Status Exam Patient Appearance: Well Grooomed and Appropriate Patient Orientation: Person and Situation Level of Consciousness: Awake and Appropriate Patient Behavior: Guarded and Passive Mood Description: Withdrawn Affect Description: Constricted Patient Cognition Impaired: Yes Ability to Follow Directions: Good Speech Pattern: Clear Hallucinations: None Delusions: Not Present Thought Process: Distracted and Slowed Thinking Thought Content: positive for [place] and positive for Poverty of Content Judgement: Fair Diagnostics Vital Signs (24Hr): Vital Signs - 24 hr 03/12/23 19:05 03/13/23 08:08 Temperature 99.1 F 96.6 F L Pulse Rate 87 84 Respiratory Rate 20 18 Blood Pressure 134/60 137/63 Pulse Oximetry 95 100 Oxygen Delivery Method Room Air Room Air BMI result Body Mass Index 30.1 Labs 03/07/23 07:46 Labs: Laboratory Results - last 48 hr 03/11/23 03/11/23 03/12/23 16:16 21:06 07:44 POC Glucose 170 H 145 H 200 H 03/12/23 03/12/23 03/12/23 11:34 16:27 20:26 POC Glucose 212 H 213 H 265 H 03/13/23 03/13/23 07:40 11:37 POC Glucose 152 H 236 H Imaging Radiology Impressions: ITS Impressions [facility] X-Ray 03/11/23 14:33 IMPRESSION: 1. Moderate constipation. 2. Biliary stent in the right upper quadrant with cholecystectomy nissa in the right upper quadrant. Medications Medications Current Medications Al Hydroxide/Mg Hydroxide (Magnesium Hydrox/Alum Hydrox 30 Ml Oral.Susp) 30 ml PO Q6H PRN PRN Reason: Heartburn/Nausea Atorvastatin Calcium (Atorvastatin Calcium 20 Mg Tablet) 20 mg PO DAILY [facility] Last Admin: 03/13/23 08:13 Dose: 20 mg Clopidogrel Bisulfate (Clopidogrel Bisulfate 75 Mg Tablet) 75 mg PO DAILY [facility] Last Admin: 03/13/23 08:12 Dose: 75 mg Docusate Sodium (Docusate Sodium 100 Mg Capsule) 100 mg PO BID [facility] Last Admin: 03/13/23 08:13 Dose: 100 mg Escitalopram Oxalate (Escitalopram Oxalate 20 Mg Tablet) 20 mg PO DAILY [facility] Last Admin: 03/13/23 08:13 Dose: 20 mg Furosemide (Furosemide 20 Mg Tablet) 20 mg PO DAILY [facility]; Protocol Last Admin: 03/13/23 08:14 Dose: 20 mg Gabapentin (Gabapentin 100 Mg Capsule) 200 mg PO TID [facility] Last Admin: 03/13/23 08:13 Dose: 200 mg Hydroxyzine HCl (Hydroxyzine Hcl 25 Mg Tablet) 25 mg PO Q6H PRN PRN Reason: Anxiety Ibuprofen (Ibuprofen 400 Mg Tablet) 400 mg PO Q4H PRN PRN Reason: Pain, Moderate(Pain Scale 4-6) Last Admin: 03/12/23 21:33 Dose: 400 mg Insulin Human Lispro (Insulin Lispro 100 Unit/Ml 3 Ml Vial) 0 unit SUBCUT QIDWMHS [facility]; Protocol Last Admin: 03/13/23 12:30 Dose: Not Given Lactulose (Lactulose 20 Gm/30 Ml Solution) 20 gm PO TID [facility] Last Admin: 03/13/23 08:09 Dose: 20 gm Levothyroxine Sodium (Levothyroxine Sodium 25 Mcg Tablet) 25 mcg PO DAILY@0600 [facility] Last Admin: 03/13/23 06:11 Dose: 25 mcg Lorazepam (Lorazepam 0.5 Mg Tablet) 0.5 mg PO DAILY PRN PRN Reason: Anxiety Last Admin: 03/07/23 16:41 Dose: 0.5 mg Magnesium Hydroxide (Milk Of Magnesia 30 Ml Oral.Susp) 30 ml PO DAILY PRN PRN Reason: Constipation Last Admin: 03/08/23 10:47 Dose: 30 ml Midodrine (Midodrine Hcl 10 Mg Tablet) 10 mg PO TID [facility] Last Admin: 03/13/23 08:15 Dose: Not Given Non-Formulary Medication (Trospium) 60 mg PO DAILY [facility] Olanzapine (Olanzapine 5 Mg Tablet) 5 mg PO DAILY [facility] Last Admin: 03/13/23 08:13 Dose: 5 mg Omeprazole (Omeprazole 20 Mg Capsule.Dr) 20 mg PO BID@0630,1630 [facility] Last Admin: 03/13/23 06:11 Dose: 20 mg Polyethylene Glycol (Polyethylene Glycol 3350 17 Gm Powd.Pack) 17 gm PO BID [facility] Last Admin: 03/13/23 08:12 Dose: 17 gm Potassium Chloride (Potassium Chloride Packet 20 Meq Packet) 20 meq PO DAILY [facility] Last Admin: 03/13/23 08:14 Dose: 20 meq Senna (Sennosides 8.6 Mg Tablet) 8.6 mg PO BEDTIME [facility] Last Admin: 03/12/23 21:34 Dose: 8.6 mg Spironolactone (Spironolactone 25 Mg Tablet) 50 mg PO DAILY [facility]; Protocol Last Admin: 03/13/23 08:13 Dose: 50 mg Tiotropium [place] (Tiotropium [place] 2.5 Mcg Inhaler) 2 puff INHALE RDAILY [facility] Last Admin: 03/13/23 08:09 Dose: 2 puff Trazodone HCl (Trazodone Hcl 100 Mg Tablet) 100 mg PO BEDTIME PRN PRN Reason: Insomnia Last Admin: 03/12/23 21:34 Dose: 100 mg Allergies Allergies Allergy/AdvReac Type Severity Reaction Status Date / Time Unable to Assess Allergy Verified 03/06/23 15:30 Assessment & Plan Assessment & Plan (1) Mood disorder: Status: Acute Code(s): F39 - Unspecified mood [affective] disorder Plan The patient is an elderly [place] female with no prior psychiatric history admitted for suicidality in the context of psychosocial stressors. The patient presents depressive symptoms elicited by depressed mood, anhedonia, lack of energy, feelings of hopelessness and suicidal ideation. But also she presented with racing thoughts, irritability, inability to concentrate and impulsivity. She is a very poor historian so we will try to gather more information. Plan 1. Gather collateral information will try to contact her daughter and get more information. 2. Continue with her regular med antidepressants. 3. The patient agreed to try Zyprexa 5 mg p.o. q.h.s. to target racing thoughts and paranoia. 4. Continue with medical workout. 5. 15 minutes checks at this moment. 6. Increase PRN Trazodone up to 100 mg po qhs PRN 7. Start Lamictal 25 mg p.o. daily to target depression and mood lability. 8. Increase Miralax bid due to constipation Reason for continued inpatient stay Substantial Risk for: inability to function, rapid decompensation and med/psych decompensation Time Spent With Patient Time: Total time managing care of this patient today __20__ minutes.
[2023-03-13 15:46] VITALS: BP 137/62; PULSE 89; RESP 18; O2SAT 98
[2023-03-13 16:31] LABS: Glucose, Whole Blood 218 mg/dL (60-115)
[2023-03-13 18:00] VITALS: BP 121/57; PULSE 81; RESP 18; TEMP 36.6; O2SAT 96
[2023-03-13 19:57] LABS: Glucose, Whole Blood 221 mg/dL (60-115)
[2023-03-13] MEDS: Sennosides 8.6 MG TABLET PO (20:37)
[2023-03-14 06:00] VITALS: BP 163/69; PULSE 86; RESP 18; O2SAT 98
[2023-03-14] MEDS: Levothyroxine Sodium 25 MCG TABLET PO (06:06)
[2023-03-14] MEDS: Omeprazole 20 MG CAPSULE.DR PO ×2 (06:06→16:39)
[2023-03-14 07:00] VITALS: BMI 31.7
[2023-03-14 07:39] LABS: Glucose, Whole Blood 148 mg/dL (60-115)
[2023-03-14] MEDS: Spironolactone 25 MG TABLET 50 MG PO (09:38)
[2023-03-14] MEDS: Gabapentin 100 MG CAPSULE 200 MG PO ×3 (09:38→21:11)
[2023-03-14] MEDS: Atorvastatin Calcium 20 MG TABLET PO (09:39)
[2023-03-14] MEDS: Furosemide 20 MG TABLET PO (09:39)
[2023-03-14] MEDS: OLANZapine 5 MG TABLET PO (09:39)
[2023-03-14] MEDS: Docusate Sodium 100 MG CAPSULE PO ×2 (09:39→21:11)
[2023-03-14] MEDS: Escitalopram Oxalate 20 MG TABLET PO (09:39)
[2023-03-14] MEDS: Clopidogrel Bisulfate 75 MG TABLET PO (09:40)
[2023-03-14] MEDS: Lactulose 20 GM/30 ML SOLUTION PO ×3 (09:40→21:11)
[2023-03-14 11:41] LABS: Glucose, Whole Blood 233 mg/dL (60-115)
[2023-03-14] MEDS: Insulin Lispro 100 UNIT/ML 3 ML VIAL SUBCUT ×3 (11:54→21:10)
--- NOTE | 2023-03-14 12:42 | HO.PSYCHPN ---
Subjective Subjective Date of Service: 03/14/23 Reason For Visit: MDD F32.1 Subjective Notes: Conditional Voluntary Interim History: The nursing staff reported the patient has been pleasant, cheerful social with peers and medication compliant. She slept well last night. The director social service reported the family could take her back but we are going to refer her for other ancillary services in the community. On interview the patient denies new symptoms she still mildly dysphoric but much better. Her affect is brighter. Mental Status Exam Mental Status Exam Patient Appearance: Well Grooomed and Appropriate Patient Orientation: Person and Situation Level of Consciousness: Awake and Appropriate Patient Behavior: Guarded and Passive Mood Description: Withdrawn Affect Description: Constricted Patient Cognition Impaired: Yes Ability to Follow Directions: Good Speech Pattern: Clear Hallucinations: None Delusions: Not Present Thought Process: Distracted and Slowed Thinking Thought Content: positive for [place] and positive for Poverty of Content Judgement: Fair Diagnostics Vital Signs (24Hr): Vital Signs - 24 hr 03/13/23 15:46 03/13/23 18:00 03/14/23 06:00 Temperature 97.8 F Pulse Rate 89 81 86 Respiratory Rate 18 18 18 Blood Pressure 137/62 121/57 L 163/69 H Pulse Oximetry 98 96 98 Oxygen Delivery Method Room Air Room Air Room Air BMI result Body Mass Index 30.1 Labs 03/07/23 07:46 Labs: Laboratory Results - last 48 hr 03/12/23 03/12/23 03/13/23 16:27 20:26 07:40 POC Glucose 213 H 265 H 152 H 03/13/23 03/13/23 03/13/23 11:37 16:26 19:49 POC Glucose 236 H 218 H 221 H 03/14/23 03/14/23 07:32 11:36 POC Glucose 148 H 233 H Imaging Radiology Impressions: ITS Impressions KUB X-Ray 03/11/23 14:33 IMPRESSION: 1. Moderate constipation. 2. Biliary stent in the right upper quadrant with cholecystectomy nissa in the right upper quadrant. Medications Medications Current Medications Al Hydroxide/Mg Hydroxide (Magnesium Hydrox/Alum Hydrox 30 Ml Oral.Susp) 30 ml PO Q6H PRN PRN Reason: Heartburn/Nausea Atorvastatin Calcium (Atorvastatin Calcium 20 Mg Tablet) 20 mg PO DAILY [facility] Last Admin: 03/14/23 09:39 Dose: 20 mg Clopidogrel Bisulfate (Clopidogrel Bisulfate 75 Mg Tablet) 75 mg PO DAILY [facility] Last Admin: 03/14/23 09:40 Dose: 75 mg Docusate Sodium (Docusate Sodium 100 Mg Capsule) 100 mg PO BID [facility] Last Admin: 03/14/23 09:39 Dose: 100 mg Escitalopram Oxalate (Escitalopram Oxalate 20 Mg Tablet) 20 mg PO DAILY [facility] Last Admin: 03/14/23 09:39 Dose: 20 mg Furosemide (Furosemide 20 Mg Tablet) 20 mg PO DAILY [facility]; Protocol Last Admin: 03/14/23 09:39 Dose: 20 mg Gabapentin (Gabapentin 100 Mg Capsule) 200 mg PO TID [facility] Last Admin: 03/14/23 09:38 Dose: 200 mg Hydroxyzine HCl (Hydroxyzine Hcl 25 Mg Tablet) 25 mg PO Q6H PRN PRN Reason: Anxiety Ibuprofen (Ibuprofen 400 Mg Tablet) 400 mg PO Q4H PRN PRN Reason: Pain, Moderate(Pain Scale 4-6) Last Admin: 03/12/23 21:33 Dose: 400 mg Insulin Human Lispro (Insulin Lispro 100 Unit/Ml 3 Ml Vial) 0 unit SUBCUT QIDWMHS [facility]; Protocol Last Admin: 03/14/23 11:54 Dose: 4 unit Lactulose (Lactulose 20 Gm/30 Ml Solution) 20 gm PO TID [facility] Last Admin: 03/14/23 09:40 Dose: 20 gm Levothyroxine Sodium (Levothyroxine Sodium 25 Mcg Tablet) 25 mcg PO DAILY@0600 [facility] Last Admin: 03/14/23 06:06 Dose: 25 mcg Lorazepam (Lorazepam 0.5 Mg Tablet) 0.5 mg PO DAILY PRN PRN Reason: Anxiety Last Admin: 03/07/23 16:41 Dose: 0.5 mg Magnesium Hydroxide (Milk Of Magnesia 30 Ml Oral.Susp) 30 ml PO DAILY PRN PRN Reason: Constipation Last Admin: 03/08/23 10:47 Dose: 30 ml Midodrine (Midodrine Hcl 10 Mg Tablet) 10 mg PO TID [facility] Last Admin: 03/14/23 09:39 Dose: 10 mg Non-Formulary Medication (Trospium) 60 mg PO DAILY [facility] Olanzapine (Olanzapine 5 Mg Tablet) 5 mg PO DAILY [facility] Last Admin: 03/14/23 09:39 Dose: 5 mg Omeprazole (Omeprazole 20 Mg Capsule.Dr) 20 mg PO BID@0630,1630 [facility] Last Admin: 03/14/23 06:06 Dose: 20 mg Polyethylene Glycol (Polyethylene Glycol 3350 17 Gm Powd.Pack) 17 gm PO BID [facility] Last Admin: 03/13/23 20:37 Dose: 17 gm Potassium Chloride (Potassium Chloride Packet 20 Meq Packet) 20 meq PO DAILY [facility] Last Admin: 03/13/23 08:14 Dose: 20 meq Senna (Sennosides 8.6 Mg Tablet) 8.6 mg PO BEDTIME [facility] Last Admin: 03/13/23 20:37 Dose: 8.6 mg Spironolactone (Spironolactone 25 Mg Tablet) 50 mg PO DAILY [facility]; Protocol Last Admin: 03/14/23 09:38 Dose: 50 mg Tiotropium [place] (Tiotropium [place] 2.5 Mcg Inhaler) 2 puff INHALE RDAILY [facility] Last Admin: 03/13/23 08:09 Dose: 2 puff Trazodone HCl (Trazodone Hcl 100 Mg Tablet) 100 mg PO BEDTIME PRN PRN Reason: Insomnia Last Admin: 03/12/23 21:34 Dose: 100 mg Allergies Allergies Allergy/AdvReac Type Severity Reaction Status Date / Time aspirin Allergy Unknown Verified 03/13/23 18:25 bee pollen [bee stings] Allergy Unknown Verified 03/13/23 18:25 Penicillins Allergy Unknown Verified 03/13/23 18:25 Assessment & Plan Assessment & Plan (1) Mood disorder: Status: Acute Code(s): F39 - Unspecified mood [affective] disorder Plan The patient is an elderly [place] female with no prior psychiatric history admitted for suicidality in the context of psychosocial stressors. The patient presents depressive symptoms elicited by depressed mood, anhedonia, lack of energy, feelings of hopelessness and suicidal ideation. But also she presented with racing thoughts, irritability, inability to concentrate and impulsivity. She is a very poor historian so we will try to gather more information. Plan 1. Gather collateral information will try to contact her daughter and get more information. 2. Continue with her regular med antidepressants. 3. The patient agreed to try Zyprexa 5 mg p.o. q.h.s. to target racing thoughts and paranoia. 4. Continue with medical workout. 5. 15 minutes checks at this moment. 6. Increase PRN Trazodone up to 100 mg po qhs PRN 7. Start Lamictal 25 mg p.o. daily to target depression and mood lability. 8. Increase Miralax bid due to constipation Reason for continued inpatient stay Substantial Risk for: inability to function, rapid decompensation and med/psych decompensation Time Spent With Patient Time: Total time managing care of this patient today __20__ minutes.
[2023-03-14] MEDS: Potassium Chloride Packet 20 MEQ PACKET PO (12:51)
[2023-03-14] MEDS: polyethylene glycoL 3350 17 GM POWD.PACK PO ×2 (12:52→21:12)
[2023-03-14 16:27] LABS: Glucose, Whole Blood 218 mg/dL (60-115)
[2023-03-14 18:00] VITALS: BP 148/65; PULSE 84; RESP 18; TEMP 36.6; O2SAT 97
[2023-03-14 20:24] LABS: Glucose, Whole Blood 160 mg/dL (60-115)
[2023-03-14] MEDS: Sennosides 8.6 MG TABLET PO (21:11)
[2023-03-14] MEDS: traZODone HCL 100 MG TABLET PO (21:21)
[2023-03-14] MEDS: Ibuprofen 400 MG TABLET PO (21:21)
[2023-03-15 06:00] VITALS: BP 142/77; PULSE 88; RESP 18; O2SAT 97
[2023-03-15] MEDS: Omeprazole 20 MG CAPSULE.DR PO ×2 (06:28→16:34)
[2023-03-15] MEDS: Levothyroxine Sodium 25 MCG TABLET PO (06:28)
[2023-03-15 07:52] LABS: Glucose, Whole Blood 159 mg/dL (60-115)
[2023-03-15] MEDS: Insulin Lispro 100 UNIT/ML 3 ML VIAL SUBCUT ×4 (08:29→20:52)
[2023-03-15] MEDS: Lactulose 20 GM/30 ML SOLUTION PO ×3 (08:32→20:51)
[2023-03-15] MEDS: Potassium Chloride Packet 20 MEQ PACKET PO (08:33)
[2023-03-15] MEDS: Clopidogrel Bisulfate 75 MG TABLET PO (08:34)
[2023-03-15] MEDS: Gabapentin 100 MG CAPSULE 200 MG PO ×3 (08:34→20:54)
[2023-03-15] MEDS: polyethylene glycoL 3350 17 GM POWD.PACK PO ×2 (08:34→20:50)
[2023-03-15] MEDS: Spironolactone 25 MG TABLET 50 MG PO (08:34)
[2023-03-15] MEDS: OLANZapine 5 MG TABLET PO (08:35)
[2023-03-15] MEDS: Atorvastatin Calcium 20 MG TABLET PO (08:35)
[2023-03-15] MEDS: Furosemide 20 MG TABLET PO (08:35)
[2023-03-15] MEDS: Docusate Sodium 100 MG CAPSULE PO ×2 (08:35→20:52)
[2023-03-15] MEDS: Escitalopram Oxalate 20 MG TABLET PO (08:57)
--- NOTE | 2023-03-15 11:03 | P.PNPSI_ITS ---
Subjective Subjective Date of Service: 03/15/23 Reason For Visit: MDD F32.1 Subjective Notes: Conditional Voluntary Interim History: The nursing staff reported the patient had been common cooperative and pleasant. The social media marketing manager reported that her daughter called and she does not want her back at home wants to be placed. We are discussing with the social work office and feet agreed out a good way to with discharge planning. On interview the patient denies new symptoms her affect is brighter she she looks more engaged and less confused. Mental Status Exam Mental Status Exam Patient Appearance: Well Grooomed and Appropriate Patient Orientation: Person and Situation Level of Consciousness: Awake and Appropriate Patient Behavior: Guarded and Passive Mood Description: Withdrawn Affect Description: Constricted Patient Cognition Impaired: Yes Ability to Follow Directions: Good Speech Pattern: Clear Hallucinations: None Delusions: Not Present Thought Process: Distracted and Slowed Thinking Thought Content: positive for [place] and positive for Circumstantial Judgement: Fair Diagnostics Vital Signs (24Hr): Vital Signs - 24 hr 03/14/23 18:00 03/15/23 06:00 Temperature 97.8 F Pulse Rate 84 88 Respiratory Rate 18 18 Blood Pressure 148/65 H 142/77 H Pulse Oximetry 97 97 Oxygen Delivery Method Room Air Room Air BMI result Body Mass Index 31.7 Labs 03/07/23 07:46 Labs: Laboratory Results - last 48 hr 03/13/23 03/13/23 03/13/23 11:37 16:26 19:49 POC Glucose 236 H 218 H 221 H 03/14/23 03/14/23 03/14/23 07:32 11:36 16:22 POC Glucose 148 H 233 H 218 H 03/14/23 03/15/23 19:52 07:48 POC Glucose 160 H 159 H Imaging Radiology Impressions: ITS Impressions KUB X-Ray 03/11/23 14:33 IMPRESSION: 1. Moderate constipation. 2. Biliary stent in the right upper quadrant with cholecystectomy nissa in the right upper quadrant. Medications Medications Current Medications Al Hydroxide/Mg Hydroxide (Magnesium Hydrox/Alum Hydrox 30 Ml Oral.Susp) 30 ml PO Q6H PRN PRN Reason: Heartburn/Nausea Atorvastatin Calcium (Atorvastatin Calcium 20 Mg Tablet) 20 mg PO DAILY [facility] Last Admin: 03/15/23 08:35 Dose: 20 mg Clopidogrel Bisulfate (Clopidogrel Bisulfate 75 Mg Tablet) 75 mg PO DAILY [facility] Last Admin: 03/15/23 08:34 Dose: 75 mg Docusate Sodium (Docusate Sodium 100 Mg Capsule) 100 mg PO BID [facility] Last Admin: 03/15/23 08:35 Dose: 100 mg Escitalopram Oxalate (Escitalopram Oxalate 20 Mg Tablet) 20 mg PO DAILY [facility] Last Admin: 03/15/23 08:57 Dose: 20 mg Furosemide (Furosemide 20 Mg Tablet) 20 mg PO DAILY [facility]; Protocol Last Admin: 03/15/23 08:35 Dose: 20 mg Gabapentin (Gabapentin 100 Mg Capsule) 200 mg PO TID [facility] Last Admin: 03/15/23 08:34 Dose: 200 mg Hydroxyzine HCl (Hydroxyzine Hcl 25 Mg Tablet) 25 mg PO Q6H PRN PRN Reason: Anxiety Ibuprofen (Ibuprofen 400 Mg Tablet) 400 mg PO Q4H PRN PRN Reason: Pain, Moderate(Pain Scale 4-6) Last Admin: 03/14/23 21:21 Dose: 400 mg Insulin Human Lispro (Insulin Lispro 100 Unit/Ml 3 Ml Vial) 0 unit SUBCUT QIDWS [facility]; Protocol Last Admin: 03/15/23 08:29 Dose: 2 unit Lactulose (Lactulose 20 Gm/30 Ml Solution) 20 gm PO TID [facility] Last Admin: 03/15/23 08:32 Dose: 20 gm Levothyroxine Sodium (Levothyroxine Sodium 25 Mcg Tablet) 25 mcg PO DAILY@0600 [facility] Last Admin: 03/15/23 06:28 Dose: 25 mcg Lorazepam (Lorazepam 0.5 Mg Tablet) 0.5 mg PO DAILY PRN PRN Reason: Anxiety Last Admin: 03/07/23 16:41 Dose: 0.5 mg Magnesium Hydroxide (Milk Of Magnesia 30 Ml Oral.Susp) 30 ml PO DAILY PRN PRN Reason: Constipation Last Admin: 03/08/23 10:47 Dose: 30 ml Midodrine (Midodrine Hcl 10 Mg Tablet) 10 mg PO TID [facility] Last Admin: 03/15/23 08:32 Dose: Not Given Non-Formulary Medication (Trospium) 60 mg PO DAILY [facility] Olanzapine (Olanzapine 5 Mg Tablet) 5 mg PO DAILY [facility] Last Admin: 03/15/23 08:35 Dose: 5 mg Omeprazole (Omeprazole 20 Mg Capsule.Dr) 20 mg PO BID@0630,1630 [facility] Last Admin: 03/15/23 06:28 Dose: 20 mg Polyethylene Glycol (Polyethylene Glycol 3350 17 Gm Powd.Pack) 17 gm PO BID [facility] Last Admin: 03/15/23 08:34 Dose: 17 gm Potassium Chloride (Potassium Chloride Packet 20 Meq Packet) 20 meq PO DAILY [facility] Last Admin: 03/15/23 08:33 Dose: 20 meq Senna (Sennosides 8.6 Mg Tablet) 8.6 mg PO BEDTIME [facility] Last Admin: 03/14/23 21:11 Dose: 8.6 mg Spironolactone (Spironolactone 25 Mg Tablet) 50 mg PO DAILY [facility]; Protocol Last Admin: 03/15/23 08:34 Dose: 50 mg Tiotropium [place] (Tiotropium [place] 2.5 Mcg Inhaler) 2 puff INHALE RDAILY [facility] Last Admin: 03/15/23 08:57 Dose: 2 puff Trazodone HCl (Trazodone Hcl 100 Mg Tablet) 100 mg PO BEDTIME PRN PRN Reason: Insomnia Last Admin: 03/14/23 21:21 Dose: 100 mg Allergies Allergies Allergy/AdvReac Type Severity Reaction Status Date / Time aspirin Allergy Unknown Verified 03/13/23 18:25 bee pollen [bee stings] Allergy Unknown Verified 03/13/23 18:25 Penicillins Allergy Unknown Verified 03/13/23 18:25 Assessment & Plan Assessment & Plan (1) Mood disorder: Status: Acute Code(s): F39 - Unspecified mood [affective] disorder Plan The patient is an elderly Filipino female with no prior psychiatric history admitted for suicidality in the context of psychosocial stressors. The patient presents depressive symptoms elicited by depressed mood, anhedonia, lack of energy, feelings of hopelessness and suicidal ideation. But also she presented with racing thoughts, irritability, inability to concentrate and impulsivity. She is a very poor historian so we will try to gather more information. Plan 1. Gather collateral information will try to contact her daughter and get more information. 2. Continue with her regular med antidepressants. 3. The patient agreed to try Zyprexa 5 mg p.o. q.h.s. to target racing thoughts and paranoia. 4. Continue with medical workout. 5. 15 minutes checks at this moment. 6. Increase PRN Trazodone up to 100 mg po qhs PRN 7. Start Lamictal 25 mg p.o. daily to target depression and mood lability. 8. Increase Miralax bid due to constipation Reason for continued inpatient stay Substantial Risk for: inability to function, rapid decompensation and med/psych decompensation Time Spent With Patient Time: Total time managing care of this patient today __20__ minutes.
[2023-03-15 11:40] LABS: Glucose, Whole Blood 203 mg/dL (60-115)
[2023-03-15 16:27] LABS: Glucose, Whole Blood 200 mg/dL (60-115)
[2023-03-15 20:26] LABS: Glucose, Whole Blood 222 mg/dL (60-115)
[2023-03-15] MEDS: Sennosides 8.6 MG TABLET PO (20:52)
[2023-03-15] MEDS: Ibuprofen 400 MG TABLET PO (20:52)
[2023-03-15] MEDS: traZODone HCL 100 MG TABLET PO (20:53)
[2023-03-15 21:00] VITALS: BP 128/61; PULSE 85; RESP 18; TEMP 36.8; O2SAT 98
[2023-03-16] MEDS: Levothyroxine Sodium 25 MCG TABLET PO (06:10)
[2023-03-16] MEDS: Omeprazole 20 MG CAPSULE.DR PO ×2 (06:10→16:42)
[2023-03-16 07:51] LABS: Glucose, Whole Blood 161 mg/dL (60-115)
[2023-03-16 08:25] VITALS: BP 140/67; PULSE 85; RESP 16; TEMP 36.8; O2SAT 99
[2023-03-16] MEDS: Lactulose 20 GM/30 ML SOLUTION PO ×3 (08:27→20:49)
[2023-03-16] MEDS: Insulin Lispro 100 UNIT/ML 3 ML VIAL SUBCUT ×4 (08:27→20:47)
[2023-03-16] MEDS: Spironolactone 25 MG TABLET 50 MG PO (08:28)
[2023-03-16] MEDS: Gabapentin 100 MG CAPSULE 200 MG PO ×3 (08:28→20:48)
[2023-03-16] MEDS: Potassium Chloride Packet 20 MEQ PACKET PO (08:28)
[2023-03-16] MEDS: Escitalopram Oxalate 20 MG TABLET PO (08:29)
[2023-03-16] MEDS: Clopidogrel Bisulfate 75 MG TABLET PO (08:29)
[2023-03-16] MEDS: Furosemide 20 MG TABLET PO (08:29)
[2023-03-16] MEDS: OLANZapine 5 MG TABLET PO (08:29)
[2023-03-16] MEDS: Atorvastatin Calcium 20 MG TABLET PO (08:29)
[2023-03-16] MEDS: Docusate Sodium 100 MG CAPSULE PO ×2 (08:30→20:48)
[2023-03-16] MEDS: polyethylene glycoL 3350 17 GM POWD.PACK PO ×2 (08:30→20:51)
[2023-03-16 11:27] LABS: Glucose, Whole Blood 193 mg/dL (60-115)
[2023-03-16] MEDS: Ibuprofen 400 MG TABLET PO ×2 (11:40→17:06)
--- NOTE | 2023-03-16 11:44 | P.PNPSI_ITS ---
Subjective Subjective Date of Service: 03/16/23 Reason For Visit: MDD F32.1 Subjective Notes: Conditional Voluntary Interim History: Patient was seen and discussed in rounds today. Records and plans were reviewed. She has been stable and is doing fairly well. Continues to complain of some lower extremity edema. No complaints otherwise. No side effects. Eati ng and sleeping adequately. No changes were made today Review of Systems Review of Systems Lower extremity edema Yes all other systems are reviewed and are negative Mental Status Exam Mental Status Exam Patient Appearance: Well Grooomed and Appropriate Patient Orientation: Person and Situation Level of Consciousness: Awake and Appropriate Patient Behavior: Guarded and Passive Mood Description: Withdrawn Affect Description: Constricted Patient Cognition Impaired: Yes Ability to Follow Directions: Good Speech Pattern: Clear Hallucinations: None Delusions: Not Present Thought Process: Distracted and Slowed Thinking Thought Content: positive for [place] and positive for Circumstantial Judgement: Fair Diagnostics Vital Signs (24Hr): Vital Signs - 24 hr 03/15/23 21:00 03/16/23 08:25 Temperature 98.2 F 98.2 F Pulse Rate 85 85 Respiratory Rate 18 16 Blood Pressure 128/61 140/67 H Pulse Oximetry 98 99 Oxygen Delivery Method Room Air Room Air BMI result Body Mass Index 31.7 Labs 03/07/23 07:46 Labs: Laboratory Results - last 48 hr 03/14/23 03/14/23 03/15/23 16:22 19:52 07:48 POC Glucose 218 H 160 H 159 H 03/15/23 03/15/23 03/15/23 11:37 16:20 20:21 POC Glucose 203 H 200 H 222 H 03/16/23 03/16/23 07:47 11:19 POC Glucose 161 H 193 H Imaging Radiology Impressions: ITS Impressions KUB X-Ray 03/11/23 14:33 IMPRESSION: 1. Moderate constipation. 2. Biliary stent in the right upper quadrant with cholecystectomy nissa in the right upper quadrant. Medications Medications Current Medications Al Hydroxide/Mg Hydroxide (Magnesium Hydrox/Alum Hydrox 30 Ml Oral.Susp) 30 ml PO Q6H PRN PRN Reason: Heartburn/Nausea Atorvastatin Calcium (Atorvastatin Calcium 20 Mg Tablet) 20 mg PO DAILY [facility] Last Admin: 03/16/23 08:29 Dose: 20 mg Clopidogrel Bisulfate (Clopidogrel Bisulfate 75 Mg Tablet) 75 mg PO DAILY [facility] Last Admin: 03/16/23 08:29 Dose: 75 mg Docusate Sodium (Docusate Sodium 100 Mg Capsule) 100 mg PO BID [facility] Last Admin: 03/16/23 08:30 Dose: 100 mg Escitalopram Oxalate (Escitalopram Oxalate 20 Mg Tablet) 20 mg PO DAILY [facility] Last Admin: 03/16/23 08:29 Dose: 20 mg Furosemide (Furosemide 20 Mg Tablet) 20 mg PO DAILY [facility]; Protocol Last Admin: 03/16/23 08:29 Dose: 20 mg Gabapentin (Gabapentin 100 Mg Capsule) 200 mg PO TID [facility] Last Admin: 03/16/23 08:28 Dose: 200 mg Hydroxyzine HCl (Hydroxyzine Hcl 25 Mg Tablet) 25 mg PO Q6H PRN PRN Reason: Anxiety Ibuprofen (Ibuprofen 400 Mg Tablet) 400 mg PO Q4H PRN PRN Reason: Pain, Moderate(Pain Scale 4-6) Last Admin: 03/16/23 11:40 Dose: 400 mg Insulin Human Lispro (Insulin Lispro 100 Unit/Ml 3 Ml Vial) 0 unit SUBCUT QIDWMHS [facility]; Protocol Last Admin: 03/16/23 11:39 Dose: 2 unit Lactulose (Lactulose 20 Gm/30 Ml Solution) 20 gm PO TID [facility] Last Admin: 03/16/23 08:27 Dose: 20 gm Levothyroxine Sodium (Levothyroxine Sodium 25 Mcg Tablet) 25 mcg PO DAILY@0600 [facility] Last Admin: 03/16/23 06:10 Dose: 25 mcg Lorazepam (Lorazepam 0.5 Mg Tablet) 0.5 mg PO DAILY PRN PRN Reason: Anxiety Last Admin: 03/07/23 16:41 Dose: 0.5 mg Magnesium Hydroxide (Milk Of Magnesia 30 Ml Oral.Susp) 30 ml PO DAILY PRN PRN Reason: Constipation Last Admin: 03/08/23 10:47 Dose: 30 ml Midodrine (Midodrine Hcl 10 Mg Tablet) 10 mg PO TID [facility] Last Admin: 03/16/23 08:29 Dose: Not Given Olanzapine (Olanzapine 5 Mg Tablet) 5 mg PO DAILY [facility] Last Admin: 03/16/23 08:29 Dose: 5 mg Omeprazole (Omeprazole 20 Mg Capsule.Dr) 20 mg PO BID@0630,1630 [facility] Last Admin: 03/16/23 06:10 Dose: 20 mg Polyethylene Glycol (Polyethylene Glycol 3350 17 Gm Powd.Pack) 17 gm PO BID [facility] Last Admin: 03/16/23 08:30 Dose: 17 gm Potassium Chloride (Potassium Chloride Packet 20 Meq Packet) 20 meq PO DAILY [facility] Last Admin: 03/16/23 08:28 Dose: 20 meq Senna (Sennosides 8.6 Mg Tablet) 8.6 mg PO BEDTIME [facility] Last Admin: 03/15/23 20:52 Dose: 8.6 mg Spironolactone (Spironolactone 25 Mg Tablet) 50 mg PO DAILY [facility]; Protocol Last Admin: 03/16/23 08:28 Dose: 50 mg Tiotropium [place] (Tiotropium [place] 2.5 Mcg Inhaler) 2 puff INHALE RDAILY [facility] Last Admin: 03/16/23 08:27 Dose: 2 puff Trazodone HCl (Trazodone Hcl 100 Mg Tablet) 100 mg PO BEDTIME PRN PRN Reason: Insomnia Last Admin: 03/15/23 20:53 Dose: 100 mg Allergies Allergies Allergy/AdvReac Type Severity Reaction Status Date / Time aspirin Allergy Unknown Verified 03/13/23 18:25 bee pollen [bee stings] Allergy Unknown Verified 03/13/23 18:25 Penicillins Allergy Unknown Verified 03/13/23 18:25 Assessment & Plan Assessment & Plan (1) Mood disorder: Status: Acute Code(s): F39 - Unspecified mood [affective] disorder Plan The patient is an elderly [place]i female with no prior psychiatric history admitted for suicidality in the context of psychosocial stressors. The patient presents depressive symptoms elicited by depressed mood, anhedonia, lack of energy, feelings of hopelessness and suicidal ideation. But also she presented with racing thoughts, irritability, inability to concentrate and impulsivity. She is a very poor historian so we will try to gather more information. Plan 1. Gather collateral information will try to contact her daughter and get more information. 2. Continue with her regular med antidepressants. 3. The patient agreed to try Zyprexa 5 mg p.o. q.h.s. to target racing thoughts and paranoia. 4. Continue with medical workout. 5. 15 minutes checks at this moment. 6. Increase PRN Trazodone up to 100 mg po qhs PRN 7. Start Lamictal 25 mg p.o. daily to target depression and mood lability. 8. Increase Miralax bid due to constipation 03/16: Continue current regimen and plans Reason for continued inpatient stay Substantial Risk for: inability to function Time Spent With Patient Time: Total time managing care of this patient today ____ minutes.
[2023-03-16 16:33] LABS: Glucose, Whole Blood 189 mg/dL (60-115)
[2023-03-16] MEDS: Midodrine HCl 10 MG TABLET PO ×2 (16:42→20:49)
[2023-03-16 19:40] VITALS: BP 138/61; PULSE 85; RESP 18; TEMP 36.1; O2SAT 100
[2023-03-16 20:11] LABS: Glucose, Whole Blood 226 mg/dL (60-115)
[2023-03-16] MEDS: Sennosides 8.6 MG TABLET PO (20:48)
[2023-03-17] MEDS: LORazepam 0.5 MG TABLET PO (01:22)
[2023-03-17] MEDS: Levothyroxine Sodium 25 MCG TABLET PO (06:19)
[2023-03-17] MEDS: Omeprazole 20 MG CAPSULE.DR PO ×2 (06:19→16:34)
[2023-03-17 07:54] LABS: Glucose, Whole Blood 166 mg/dL (60-115)
[2023-03-17 08:12] VITALS: BP 123/58; PULSE 84; RESP 16; TEMP 36.4; O2SAT 99
[2023-03-17] MEDS: Insulin Lispro 100 UNIT/ML 3 ML VIAL SUBCUT ×3 (08:13→22:04)
[2023-03-17] MEDS: Potassium Chloride Packet 20 MEQ PACKET PO (08:14)
[2023-03-17] MEDS: Midodrine HCl 10 MG TABLET PO (08:14)
[2023-03-17] MEDS: Atorvastatin Calcium 20 MG TABLET PO (08:14)
[2023-03-17] MEDS: Gabapentin 100 MG CAPSULE 200 MG PO ×3 (08:14→21:55)
[2023-03-17] MEDS: polyethylene glycoL 3350 17 GM POWD.PACK PO ×2 (08:14→21:55)
[2023-03-17] MEDS: Spironolactone 25 MG TABLET 50 MG PO (08:14)
[2023-03-17] MEDS: Lactulose 20 GM/30 ML SOLUTION PO ×3 (08:14→21:55)
[2023-03-17] MEDS: Furosemide 20 MG TABLET PO (08:15)
[2023-03-17] MEDS: Escitalopram Oxalate 20 MG TABLET PO (08:15)
[2023-03-17] MEDS: OLANZapine 5 MG TABLET PO (08:15)
[2023-03-17] MEDS: Docusate Sodium 100 MG CAPSULE PO ×2 (08:15→21:54)
[2023-03-17] MEDS: Clopidogrel Bisulfate 75 MG TABLET PO (08:15)
[2023-03-17] MEDS: Ibuprofen 400 MG TABLET PO ×2 (08:26→22:06)
[2023-03-17] MEDS: hydrOXYzine HCL 25 MG TABLET PO ×2 (08:27→22:06)
--- NOTE | 2023-03-17 11:36 | HO.PSYCHPN ---
Subjective Subjective Date of Service: 03/17/23 Reason For Visit: MDD F32.1 Subjective Notes: Conditional Voluntary Interim History: Patient was seen and discussed in rounds today. Records and plans were reviewed. She has been doing fairly well and has been stable with no behavioral issues. Some crying last night over the fact that she knows she may be going to [facility] facility. She is compliant with medication and meals. He is sleeping adequately. No changes were made today Review of Systems Review of Systems Lower extremity edema Yes all other systems are reviewed and are negative Mental Status Exam Mental Status Exam Patient Appearance: Well Grooomed and Appropriate Patient Orientation: Person and Situation Level of Consciousness: Awake and Appropriate Patient Behavior: Guarded and Passive Mood Description: Withdrawn Affect Description: Constricted Patient Cognition Impaired: Yes Ability to Follow Directions: Good Speech Pattern: Clear Hallucinations: None Delusions: Not Present Thought Process: Distracted and Slowed Thinking Thought Content: positive for [place] and positive for Circumstantial Judgement: Fair Diagnostics Vital Signs (24Hr): Vital Signs - 24 hr 03/16/23 19:40 03/17/23 08:12 Temperature 97 F 97.5 F Pulse Rate 85 84 Respiratory Rate 18 16 Blood Pressure 138/61 123/58 L Pulse Oximetry 100 99 Oxygen Delivery Method Room Air Room Air BMI result Body Mass Index 31.7 Labs 03/07/23 07:46 Labs: Laboratory Results - last 48 hr 03/15/23 03/15/23 03/15/23 11:37 16:20 20:21 POC Glucose 203 H 200 H 222 H 03/16/23 03/16/23 03/16/23 07:47 11:19 16:25 POC Glucose 161 H 193 H 189 H 03/16/23 03/17/23 20:06 07:49 POC Glucose 226 H 166 H Imaging Radiology Impressions: ITS Impressions KUB X-Ray 03/11/23 14:33 IMPRESSION: 1. Moderate constipation. 2. Biliary stent in the right upper quadrant with cholecystectomy nissa in the right upper quadrant. Medications Medications Current Medications Al Hydroxide/Mg Hydroxide (Magnesium Hydrox/Alum Hydrox 30 Ml Oral.Susp) 30 ml PO Q6H PRN PRN Reason: Heartburn/Nausea Atorvastatin Calcium (Atorvastatin Calcium 20 Mg Tablet) 20 mg PO DAILY [facility] Last Admin: 03/17/23 08:14 Dose: 20 mg Clopidogrel Bisulfate (Clopidogrel Bisulfate 75 Mg Tablet) 75 mg PO DAILY [facility] Last Admin: 03/17/23 08:15 Dose: 75 mg Docusate Sodium (Docusate Sodium 100 Mg Capsule) 100 mg PO BID [facility] Last Admin: 03/17/23 08:15 Dose: 100 mg Escitalopram Oxalate (Escitalopram Oxalate 20 Mg Tablet) 20 mg PO DAILY [facility] Last Admin: 03/17/23 08:15 Dose: 20 mg Furosemide (Furosemide 20 Mg Tablet) 20 mg PO DAILY [facility]; Protocol Last Admin: 03/17/23 08:15 Dose: 20 mg Gabapentin (Gabapentin 100 Mg Capsule) 200 mg PO TID [facility] Last Admin: 03/17/23 08:14 Dose: 200 mg Hydroxyzine HCl (Hydroxyzine Hcl 25 Mg Tablet) 25 mg PO Q6H PRN PRN Reason: Anxiety Last Admin: 03/17/23 08:27 Dose: 25 mg Ibuprofen (Ibuprofen 400 Mg Tablet) 400 mg PO Q4H PRN PRN Reason: Pain, Moderate(Pain Scale 4-6) Last Admin: 03/17/23 08:26 Dose: 400 mg Insulin Human Lispro (Insulin Lispro 100 Unit/Ml 3 Ml Vial) 0 unit SUBCUT QIDWMHS [facility]; Protocol Last Admin: 03/17/23 08:13 Dose: 2 unit Lactulose (Lactulose 20 Gm/30 Ml Solution) 20 gm PO TID [facility] Last Admin: 03/17/23 08:14 Dose: 20 gm Levothyroxine Sodium (Levothyroxine Sodium 25 Mcg Tablet) 25 mcg PO DAILY@0600 [facility] Last Admin: 03/17/23 06:19 Dose: 25 mcg Magnesium Hydroxide (Milk Of Magnesia 30 Ml Oral.Susp) 30 ml PO DAILY PRN PRN Reason: Constipation Last Admin: 03/08/23 10:47 Dose: 30 ml Midodrine (Midodrine Hcl 10 Mg Tablet) 10 mg PO TID [facility] Last Admin: 03/17/23 08:14 Dose: 10 mg Olanzapine (Olanzapine 5 Mg Tablet) 5 mg PO DAILY [facility] Last Admin: 03/17/23 08:15 Dose: 5 mg Omeprazole (Omeprazole 20 Mg Capsule.Dr) 20 mg PO BID@0630,1630 [facility] Last Admin: 03/17/23 06:19 Dose: 20 mg Polyethylene Glycol (Polyethylene Glycol 3350 17 Gm Powd.Pack) 17 gm PO BID [facility] Last Admin: 03/17/23 08:14 Dose: 17 gm Potassium Chloride (Potassium Chloride Packet 20 Meq Packet) 20 meq PO DAILY [facility] Last Admin: 03/17/23 08:14 Dose: 20 meq Senna (Sennosides 8.6 Mg Tablet) 8.6 mg PO BEDTIME [facility] Last Admin: 03/16/23 20:48 Dose: 8.6 mg Spironolactone (Spironolactone 25 Mg Tablet) 50 mg PO DAILY [facility]; Protocol Last Admin: 03/17/23 08:14 Dose: 50 mg Tiotropium [place] (Tiotropium [place] 2.5 Mcg Inhaler) 2 puff INHALE RDAILY [facility] Last Admin: 03/17/23 08:22 Dose: 2 puff Trazodone HCl (Trazodone Hcl 100 Mg Tablet) 100 mg PO BEDTIME PRN PRN Reason: Insomnia Last Admin: 03/15/23 20:53 Dose: 100 mg Allergies Allergies Allergy/AdvReac Type Severity Reaction Status Date / Time aspirin Allergy Unknown Verified 03/13/23 18:25 bee pollen [bee stings] Allergy Unknown Verified 03/13/23 18:25 Penicillins Allergy Unknown Verified 03/13/23 18:25 Assessment & Plan Assessment & Plan (1) Mood disorder: Status: Acute Code(s): F39 - Unspecified mood [affective] disorder Plan The patient is an elderly Citizen Of [place] female with no prior psychiatric history admitted for suicidality in the context of psychosocial stressors. The patient presents depressive symptoms elicited by depressed mood, anhedonia, lack of energy, feelings of hopelessness and suicidal ideation. But also she presented with racing thoughts, irritability, inability to concentrate and impulsivity. She is a very poor historian so we will try to gather more information. Plan 1. Gather collateral information will try to contact her daughter and get more information. 2. Continue with her regular med antidepressants. 3. The patient agreed to try Zyprexa 5 mg p.o. q.h.s. to target racing thoughts and paranoia. 4. Continue with medical workout. 5. 15 minutes checks at this moment. 6. Increase PRN Trazodone up to 100 mg po qhs PRN 7. Start Lamictal 25 mg p.o. daily to target depression and mood lability. 8. Increase Miralax bid due to constipation 03/16: Continue current regimen and plans 8/6: Continue current plans and regimen Reason for continued inpatient stay Substantial Risk for: med/psych decompensation Time Spent With Patient Time: Total time managing care of this patient today ____ minutes.
[2023-03-17 13:05] LABS: Glucose, Whole Blood 206 mg/dL (60-115)
[2023-03-17 15:50] VITALS: BP 116/55
[2023-03-17 16:20] LABS: Glucose, Whole Blood 167 mg/dL (60-115)
[2023-03-17 18:00] VITALS: BP 133/60; PULSE 77; RESP 18; TEMP 36.8; O2SAT 99
[2023-03-17 20:12] LABS: Glucose, Whole Blood 173 mg/dL (60-115)
[2023-03-17] MEDS: Sennosides 8.6 MG TABLET PO (21:55)
[2023-03-18] MEDS: Omeprazole 20 MG CAPSULE.DR PO ×2 (06:22→16:00)
[2023-03-18] MEDS: Levothyroxine Sodium 25 MCG TABLET PO (06:22)
[2023-03-18 07:37] LABS: Glucose, Whole Blood 147 mg/dL (60-115)
[2023-03-18 07:51] VITALS: BP 154/67; PULSE 86; RESP 20; TEMP 36.8; O2SAT 96
[2023-03-18] MEDS: Escitalopram Oxalate 20 MG TABLET PO (08:53)
[2023-03-18] MEDS: Spironolactone 25 MG TABLET 50 MG PO (08:53)
[2023-03-18] MEDS: Atorvastatin Calcium 20 MG TABLET PO (08:53)
[2023-03-18] MEDS: Gabapentin 100 MG CAPSULE 200 MG PO ×3 (08:53→21:19)
[2023-03-18] MEDS: Docusate Sodium 100 MG CAPSULE PO ×2 (08:53→21:19)
[2023-03-18] MEDS: Furosemide 20 MG TABLET PO (08:54)
[2023-03-18] MEDS: Clopidogrel Bisulfate 75 MG TABLET PO (08:54)
[2023-03-18] MEDS: hydrOXYzine HCL 25 MG TABLET PO (08:54)
[2023-03-18] MEDS: Potassium Chloride Packet 20 MEQ PACKET PO (08:54)
[2023-03-18] MEDS: Ibuprofen 400 MG TABLET PO ×2 (08:54→21:27)
[2023-03-18] MEDS: OLANZapine 5 MG TABLET PO (08:58)
[2023-03-18 11:31] LABS: Glucose, Whole Blood 235 mg/dL (60-115)
[2023-03-18] MEDS: Insulin Lispro 100 UNIT/ML 3 ML VIAL SUBCUT ×3 (11:39→21:18)
--- NOTE | 2023-03-18 14:46 | HO.PSYCHPN ---
Subjective Subjective Date of Service: 03/18/23 Reason For Visit: MDD F32.1 Subjective Notes: Conditional Voluntary Interim History: The nursing staff reported the patient has been alert oriented x4 cooperative and pleasant. His fasting blood sugar had been on normal range. The staff has noticed that his affect is brighter. The perinatal social worker reported that her daughter want her placed on assisted living facility and they had been looking for that. Most likely that discharge will be next week. The occupational therapist reported that she participates in groups but lives early. On interview the patient denies new symptoms waiting for placement. Mental Status Exam Mental Status Exam Patient Appearance: Well Grooomed and Appropriate Patient Orientation: Person and Situation Level of Consciousness: Awake and Appropriate Patient Behavior: Guarded and Passive Mood Description: Withdrawn Affect Description: Constricted Patient Cognition Impaired: Yes Ability to Follow Directions: Good Speech Pattern: Clear Hallucinations: None Delusions: Not Present Thought Process: Intact Thought Content: positive for Circumstantial Judgement: Fair Diagnostics Vital Signs (24Hr): Vital Signs - 24 hr 03/17/23 15:50 03/17/23 18:00 03/18/23 07:51 Temperature 98.3 F 98.3 F Pulse Rate 77 86 Respiratory Rate 18 20 Blood Pressure 116/55 L 133/60 154/67 H Pulse Oximetry 99 96 Oxygen Delivery Method Room Air Room Air BMI result Body Mass Index 31.7 Labs 03/07/23 07:46 Labs: Laboratory Results - last 48 hr 03/16/23 03/16/23 03/17/23 16:25 20:06 07:49 POC Glucose 189 H 226 H 166 H 03/17/23 03/17/23 03/17/23 12:59 16:16 19:53 POC Glucose 206 H 167 H 173 H 03/18/23 03/18/23 07:32 11:26 POC Glucose 147 H 235 H Imaging Radiology Impressions: ITS Impressions KUB X-Ray 03/11/23 14:33 IMPRESSION: 1. Moderate constipation. 2. Biliary stent in the right upper quadrant with cholecystectomy nissa in the right upper quadrant. Medications Medications Current Medications Al Hydroxide/Mg Hydroxide (Magnesium Hydrox/Alum Hydrox 30 Ml Oral.Susp) 30 ml PO Q6H PRN PRN Reason: Heartburn/Nausea Atorvastatin Calcium (Atorvastatin Calcium 20 Mg Tablet) 20 mg PO DAILY [facility] Last Admin: 03/18/23 08:53 Dose: 20 mg Clopidogrel Bisulfate (Clopidogrel Bisulfate 75 Mg Tablet) 75 mg PO DAILY [facility] Last Admin: 03/18/23 08:54 Dose: 75 mg Docusate Sodium (Docusate Sodium 100 Mg Capsule) 100 mg PO BID [facility] Last Admin: 03/18/23 08:53 Dose: 100 mg Escitalopram Oxalate (Escitalopram Oxalate 20 Mg Tablet) 20 mg PO DAILY [facility] Last Admin: 03/18/23 08:53 Dose: 20 mg Furosemide (Furosemide 20 Mg Tablet) 20 mg PO DAILY [facility]; Protocol Last Admin: 03/18/23 08:54 Dose: 20 mg Gabapentin (Gabapentin 100 Mg Capsule) 200 mg PO TID [facility] Last Admin: 03/18/23 08:53 Dose: 200 mg Hydroxyzine HCl (Hydroxyzine Hcl 25 Mg Tablet) 25 mg PO Q6H PRN PRN Reason: Anxiety Last Admin: 03/18/23 08:54 Dose: 25 mg Ibuprofen (Ibuprofen 400 Mg Tablet) 400 mg PO Q4H PRN PRN Reason: Pain, Moderate(Pain Scale 4-6) Last Admin: 03/18/23 08:54 Dose: 400 mg Insulin Human Lispro (Insulin Lispro 100 Unit/Ml 3 Ml Vial) 0 unit SUBCUT QIDWMHS [facility]; Protocol Last Admin: 03/18/23 11:39 Dose: 4 unit Lactulose (Lactulose 20 Gm/30 Ml Solution) 20 gm PO TID [facility] Last Admin: 03/18/23 09:01 Dose: Not Given Levothyroxine Sodium (Levothyroxine Sodium 25 Mcg Tablet) 25 mcg PO DAILY@0600 [facility] Last Admin: 03/18/23 06:22 Dose: 25 mcg Magnesium Hydroxide (Milk Of Magnesia 30 Ml Oral.Susp) 30 ml PO DAILY PRN PRN Reason: Constipation Last Admin: 03/08/23 10:47 Dose: 30 ml Midodrine (Midodrine Hcl 10 Mg Tablet) 10 mg PO TID [facility] Last Admin: 03/18/23 09:01 Dose: Not Given Olanzapine (Olanzapine 5 Mg Tablet) 5 mg PO DAILY [facility] Last Admin: 03/18/23 08:58 Dose: 5 mg Omeprazole (Omeprazole 20 Mg Capsule.Dr) 20 mg PO BID@0630,1630 [facility] Last Admin: 03/18/23 06:22 Dose: 20 mg Polyethylene Glycol (Polyethylene Glycol 3350 17 Gm Powd.Pack) 17 gm PO BID [facility] Last Admin: 03/18/23 09:01 Dose: Not Given Potassium Chloride (Potassium Chloride Packet 20 Meq Packet) 20 meq PO DAILY [facility] Last Admin: 03/18/23 08:54 Dose: 20 meq Senna (Sennosides 8.6 Mg Tablet) 8.6 mg PO BEDTIME [facility] Last Admin: 03/17/23 21:55 Dose: 8.6 mg Spironolactone (Spironolactone 25 Mg Tablet) 50 mg PO DAILY [facility]; Protocol Last Admin: 03/18/23 08:53 Dose: 50 mg Tiotropium [place] (Tiotropium [place] 2.5 Mcg Inhaler) 2 puff INHALE RDAILY [facility] Last Admin: 03/18/23 08:54 Dose: 2 puff Trazodone HCl (Trazodone Hcl 100 Mg Tablet) 100 mg PO BEDTIME PRN PRN Reason: Insomnia Last Admin: 03/15/23 20:53 Dose: 100 mg Allergies Allergies Allergy/AdvReac Type Severity Reaction Status Date / Time aspirin Allergy Unknown Verified 03/13/23 18:25 bee pollen [bee stings] Allergy Unknown Verified 03/13/23 18:25 Penicillins Allergy Unknown Verified 03/13/23 18:25 Assessment & Plan Assessment & Plan (1) Mood disorder: Status: Acute Code(s): F39 - Unspecified mood [affective] disorder Plan The patient is an elderly [place]ian female with no prior psychiatric history admitted for suicidality in the context of psychosocial stressors. The patient presents depressive symptoms elicited by depressed mood, anhedonia, lack of energy, feelings of hopelessness and suicidal ideation. But also she presented with racing thoughts, irritability, inability to concentrate and impulsivity. She is a very poor historian so we will try to gather more information. Plan 1. Gather collateral information will try to contact her daughter and get more information. 2. Continue with her regular med antidepressants. 3. The patient agreed to try Zyprexa 5 mg p.o. q.h.s. to target racing thoughts and paranoia. 4. Continue with medical workout. 5. 15 minutes checks at this moment. 6. Increase PRN Trazodone up to 100 mg po qhs PRN 7. Start Lamictal 25 mg p.o. daily to target depression and mood lability. 8. Increase Miralax bid due to constipation 9. Waiting for placement Reason for continued inpatient stay Substantial Risk for: inability to function, rapid decompensation and med/psych decompensation Time Spent With Patient Time: Total time managing care of this patient today __20__ minutes.
[2023-03-18 16:13] LABS: Glucose, Whole Blood 192 mg/dL (60-115)
[2023-03-18 18:00] VITALS: BP 120/56; PULSE 86; RESP 18; TEMP 36.6; O2SAT 100
[2023-03-18 20:35] LABS: Glucose, Whole Blood 179 mg/dL (60-115)
[2023-03-18] MEDS: polyethylene glycoL 3350 17 GM POWD.PACK PO (21:19)
[2023-03-18] MEDS: Lactulose 20 GM/30 ML SOLUTION PO (21:19)
[2023-03-18] MEDS: Sennosides 8.6 MG TABLET PO (21:20)
[2023-03-18] MEDS: traZODone HCL 100 MG TABLET PO (21:27)
[2023-03-18] MEDS: Magnesium Hydrox/Alum Hydrox 30 ML ORAL.SUSP PO (22:16)
[2023-03-19] VITALS (7 sets, daily range): BP systolic 98–143; BP diastolic 50–62; PULSE 84–101; RESP 17–18; TEMP 36.4–36.9; O2SAT 96–97
--- NOTE | 2023-03-19 01:37 | PC.NURSE ---
Patient had an episode of bloody stools, lula / red. Vitals stable BP122/58 P95 R18 T98.4 O2 97%. call center support representative hospitalist Armida Garcia notified. Will continue to monitor.
[2023-03-19] MEDS: Omeprazole 20 MG CAPSULE.DR PO ×2 (06:03→16:19)
[2023-03-19] MEDS: Levothyroxine Sodium 25 MCG TABLET PO (06:03)
[2023-03-19 07:42] LABS: Glucose, Whole Blood 203 mg/dL (60-115)
[2023-03-19] MEDS: Spironolactone 25 MG TABLET 50 MG PO (08:32)
[2023-03-19] MEDS: Docusate Sodium 100 MG CAPSULE PO ×2 (08:32→22:01)
[2023-03-19] MEDS: Atorvastatin Calcium 20 MG TABLET PO (08:32)
[2023-03-19] MEDS: OLANZapine 5 MG TABLET PO (08:32)
[2023-03-19] MEDS: Escitalopram Oxalate 20 MG TABLET PO (08:32)
[2023-03-19] MEDS: Gabapentin 100 MG CAPSULE 200 MG PO ×3 (08:32→22:00)
[2023-03-19] MEDS: hydrOXYzine HCL 25 MG TABLET PO (08:32)
[2023-03-19] MEDS: Midodrine HCl 10 MG TABLET PO (08:32)
[2023-03-19] MEDS: Clopidogrel Bisulfate 75 MG TABLET PO (08:32)
[2023-03-19] MEDS: polyethylene glycoL 3350 17 GM POWD.PACK PO (08:33)
[2023-03-19] MEDS: Furosemide 20 MG TABLET PO (08:33)
[2023-03-19] MEDS: Ibuprofen 400 MG TABLET PO ×2 (08:33→22:00)
[2023-03-19] MEDS: Insulin Lispro 100 UNIT/ML 3 ML VIAL SUBCUT ×5 (08:33→22:00)
[2023-03-19] MEDS: Potassium Chloride Packet 20 MEQ PACKET PO (08:34)
[2023-03-19] MEDS: Lactulose 20 GM/30 ML SOLUTION PO ×3 (08:34→22:00)
--- NOTE | 2023-03-19 10:48 | PC.NURSE ---
Morning BP 98/52 and Lourdes denied dizziness/lightheadedness. Midodrine administered as ordered. She reported feeling dizzy in the bathroom around 0945. Recheck of BP 111/50 and instructed Lourdes to move slowly and refrain from straining during a bowel movement which she reported doing this morning. Notified Dr. Anderson of the above. Will recheck BP before lunch.
[2023-03-19 11:43] LABS: Glucose, Whole Blood 183 mg/dL (60-115)
--- NOTE | 2023-03-19 11:59 | PC.NURSE ---
BP checked at 1157 142/62 Lourdes reported lightheadedness resolved and Dr. Anderson notified.
--- NOTE | 2023-03-19 13:31 | P.PNPSI_ITS ---
Subjective Subjective Date of Service: 03/19/23 Reason For Visit: MDD F32.1 Subjective Notes: Conditional Voluntary Interim History: The nursing staff reported the patient had been pleasant cooperative, visible in the unit. The social services counselor reported the daughter wants her to go to assisted living facility and she had been applied to few facilities. On interview the patient was asking about her discharged explained her situation and she is willing to wait for proper disposition. She was hypotensive in the morning and she was resting. No evidence of depression or suicidal ideation or any psychotic symptoms. Mental Status Exam Mental Status Exam Patient Appearance: Well Grooomed and Appropriate Patient Orientation: Person and Situation Level of Consciousness: Awake and Appropriate Patient Behavior: Guarded and Passive Mood Description: Withdrawn Affect Description: Constricted Patient Cognition Impaired: Yes Ability to Follow Directions: Good Speech Pattern: Clear Hallucinations: None Delusions: Not Present Thought Process: Distracted and Evasive Thought Content: positive for [place] and positive for Perseveration Judgement: Fair Diagnostics Vital Signs (24Hr): Vital Signs - 24 hr 03/18/23 18:00 03/19/23 01:28 03/19/23 06:58 Temperature 98 F 98.4 F 97.9 F Pulse Rate 86 95 88 Respiratory Rate 18 18 18 Blood Pressure 120/56 L 122/58 L 103/52 L Pulse Oximetry 100 97 96 Oxygen Delivery Method Room Air Room Air Room Air 03/19/23 08:17 03/19/23 09:51 03/19/23 11:57 Temperature 97.7 F Pulse Rate 101 H 86 91 Respiratory Rate 18 Blood Pressure 98/52 L 111/50 L 142/62 H Pulse Oximetry 97 Oxygen Delivery Method Room Air BMI result Body Mass Index 31.7 Labs 03/07/23 07:46 Labs: Laboratory Results - last 48 hr 03/17/23 03/17/23 03/18/23 16:16 19:53 07:32 POC Glucose 167 H 173 H 147 H 03/18/23 03/18/23 03/18/23 11:26 16:04 20:16 POC Glucose 235 H 192 H 179 H 03/19/23 03/19/23 07:35 11:36 POC Glucose 203 H 183 H Imaging Radiology Impressions: ITS Impressions KUB X-Ray 03/11/23 14:33 IMPRESSION: 1. Moderate constipation. 2. Biliary stent in the right upper quadrant with cholecystectomy nissa in the right upper quadrant. Medications Medications Current Medications Al Hydroxide/Mg Hydroxide (Magnesium Hydrox/Alum Hydrox 30 Ml Oral.Susp) 30 ml PO Q6H PRN PRN Reason: Heartburn/Nausea Last Admin: 03/18/23 22:16 Dose: 30 ml Atorvastatin Calcium (Atorvastatin Calcium 20 Mg Tablet) 20 mg PO DAILY [facility] Last Admin: 03/19/23 08:32 Dose: 20 mg Clopidogrel Bisulfate (Clopidogrel Bisulfate 75 Mg Tablet) 75 mg PO DAILY [facility] Last Admin: 03/19/23 08:32 Dose: 75 mg Docusate Sodium (Docusate Sodium 100 Mg Capsule) 100 mg PO BID [facility] Last Admin: 03/19/23 08:32 Dose: 100 mg Escitalopram Oxalate (Escitalopram Oxalate 20 Mg Tablet) 20 mg PO DAILY [facility] Last Admin: 03/19/23 08:32 Dose: 20 mg Furosemide (Furosemide 20 Mg Tablet) 20 mg PO DAILY [facility]; Protocol Last Admin: 03/19/23 08:33 Dose: 20 mg Gabapentin (Gabapentin 100 Mg Capsule) 200 mg PO TID [facility] Last Admin: 03/19/23 08:32 Dose: 200 mg Hydroxyzine HCl (Hydroxyzine Hcl 25 Mg Tablet) 25 mg PO Q6H PRN PRN Reason: Anxiety Last Admin: 03/19/23 08:32 Dose: 25 mg Ibuprofen (Ibuprofen 400 Mg Tablet) 400 mg PO Q4H PRN PRN Reason: Pain, Moderate(Pain Scale 4-6) Last Admin: 03/19/23 08:33 Dose: 400 mg Insulin Human Lispro (Insulin Lispro 100 Unit/Ml 3 Ml Vial) 0 unit SUBCUT QIDWMHS [facility]; Protocol Last Admin: 03/19/23 11:52 Dose: 2 unit Lactulose (Lactulose 20 Gm/30 Ml Solution) 20 gm PO TID [facility] Last Admin: 03/19/23 08:34 Dose: 20 gm Levothyroxine Sodium (Levothyroxine Sodium 25 Mcg Tablet) 25 mcg PO DAILY@0600 [facility] Last Admin: 03/19/23 06:03 Dose: 25 mcg Magnesium Hydroxide (Milk Of Magnesia 30 Ml Oral.Susp) 30 ml PO DAILY PRN PRN Reason: Constipation Last Admin: 03/08/23 10:47 Dose: 30 ml Midodrine (Midodrine Hcl 10 Mg Tablet) 10 mg PO TID [facility] Last Admin: 03/19/23 08:32 Dose: 10 mg Olanzapine (Olanzapine 5 Mg Tablet) 5 mg PO DAILY [facility] Last Admin: 03/19/23 08:32 Dose: 5 mg Omeprazole (Omeprazole 20 Mg Capsule.Dr) 20 mg PO BID@0630,1630 [facility] Last Admin: 03/19/23 06:03 Dose: 20 mg Polyethylene Glycol (Polyethylene Glycol 3350 17 Gm Powd.Pack) 17 gm PO BID [facility] Last Admin: 03/19/23 08:33 Dose: 17 gm Potassium Chloride (Potassium Chloride Packet 20 Meq Packet) 20 meq PO DAILY [facility] Last Admin: 03/19/23 08:34 Dose: 20 meq Senna (Sennosides 8.6 Mg Tablet) 8.6 mg PO BEDTIME [facility] Last Admin: 03/18/23 21:20 Dose: 8.6 mg Spironolactone (Spironolactone 25 Mg Tablet) 50 mg PO DAILY [facility]; Protocol Last Admin: 03/19/23 08:32 Dose: 50 mg Tiotropium [place] (Tiotropium [place] 2.5 Mcg Inhaler) 2 puff INHALE RDAILY [facility] Last Admin: 03/19/23 08:33 Dose: 2 puff Trazodone HCl (Trazodone Hcl 100 Mg Tablet) 100 mg PO BEDTIME PRN PRN Reason: Insomnia Last Admin: 03/18/23 21:27 Dose: 100 mg Allergies Allergies Allergy/AdvReac Type Severity Reaction Status Date / Time aspirin Allergy Unknown Verified 03/13/23 18:25 bee pollen [bee stings] Allergy Unknown Verified 03/13/23 18:25 Penicillins Allergy Unknown Verified 03/13/23 18:25 Assessment & Plan Assessment & Plan (1) Mood disorder: Status: Acute Code(s): F39 - Unspecified mood [affective] disorder Plan The patient is an elderly Indian female with no prior psychiatric history admitted for suicidality in the context of psychosocial stressors. The patient presents depressive symptoms elicited by depressed mood, anhedonia, lack of energy, feelings of hopelessness and suicidal ideation. But also she presented with racing thoughts, irritability, inability to concentrate and impulsivity. She is a very poor historian so we will try to gather more information. Plan 1. Gather collateral information will try to contact her daughter and get more information. 2. Continue with her regular med antidepressants. 3. The patient agreed to try Zyprexa 5 mg p.o. q.h.s. to target racing thoughts and paranoia. 4. Continue with medical workout. 5. 15 minutes checks at this moment. 6. Increase PRN Trazodone up to 100 mg po qhs PRN 7. Start Lamictal 25 mg p.o. daily to target depression and mood lability. 8. Increase Miralax bid due to constipation 9. Waiting for placement Reason for continued inpatient stay Substantial Risk for: inability to function, rapid decompensation and med/psych decompensation Time Spent With Patient Time: Total time managing care of this patient today __20__ minutes.
[2023-03-19 16:12] LABS: Glucose, Whole Blood 244 mg/dL (60-115)
[2023-03-19 20:01] LABS: Glucose, Whole Blood 254 mg/dL (60-115)
[2023-03-19] MEDS: Sennosides 8.6 MG TABLET PO (22:01)
[2023-03-20] MEDS: Levothyroxine Sodium 25 MCG TABLET PO (06:33)
[2023-03-20] MEDS: Omeprazole 20 MG CAPSULE.DR PO ×2 (06:33→16:57)
[2023-03-20 07:33] LABS: Glucose, Whole Blood 145 mg/dL (60-115)
[2023-03-20 08:13] VITALS: BP 124/61; PULSE 87; RESP 18; TEMP 36.8; O2SAT 98
[2023-03-20] MEDS: Spironolactone 25 MG TABLET 50 MG PO (08:14)
[2023-03-20] MEDS: Gabapentin 100 MG CAPSULE 200 MG PO ×3 (08:14→20:20)
[2023-03-20] MEDS: Potassium Chloride Packet 20 MEQ PACKET PO (08:15)
[2023-03-20] MEDS: Furosemide 20 MG TABLET PO (08:16)
[2023-03-20] MEDS: Docusate Sodium 100 MG CAPSULE PO ×2 (08:16→20:22)
[2023-03-20] MEDS: OLANZapine 5 MG TABLET PO (08:17)
[2023-03-20] MEDS: Clopidogrel Bisulfate 75 MG TABLET PO (08:17)
[2023-03-20] MEDS: Lactulose 20 GM/30 ML SOLUTION PO ×3 (08:17→20:17)
[2023-03-20] MEDS: Atorvastatin Calcium 20 MG TABLET PO (08:17)
[2023-03-20] MEDS: Escitalopram Oxalate 20 MG TABLET PO (08:17)
[2023-03-20] MEDS: polyethylene glycoL 3350 17 GM POWD.PACK PO ×2 (08:18→20:22)
--- NOTE | 2023-03-20 10:20 | HO.PSYCHPN ---
Subjective Subjective Date of Service: 03/20/23 Reason For Visit: MDD F32.1 Subjective Notes: Conditional Voluntary Interim History: The nursing staff reported the patient had been compliant with treatment, she has 3 bowel movements yesterday and she slept 6 hours. She denies suicidal ideation and she was seen in the common areas. The social work instructor reported that her daughter wants to be placed on assisted living facility. Today a facilities going to visit her at 12:13 assess her is she is suitable. On interview the patient denies new symptoms, pleasant and cooperative, denies suicidal ideation. Waiting for placement Mental Status Exam Mental Status Exam Patient Appearance: Well Grooomed and Appropriate Patient Orientation: Person and Situation Level of Consciousness: Awake and Appropriate Patient Behavior: Guarded and Passive Mood Description: Calm Affect Description: Constricted Patient Cognition Impaired: Yes Ability to Follow Directions: Good Speech Pattern: Clear Hallucinations: None Delusions: Not Present Thought Process: Distracted and Slowed Thinking Thought Content: positive for [place] and positive for Circumstantial Judgement: Fair Diagnostics Vital Signs (24Hr): Vital Signs - 24 hr 03/19/23 11:57 03/19/23 16:15 03/19/23 18:00 Temperature 97.5 F Pulse Rate 91 84 95 Respiratory Rate 17 Blood Pressure 142/62 H 118/55 L 143/60 H Pulse Oximetry 96 Oxygen Delivery Method Room Air 03/20/23 08:13 Temperature 98.3 F Pulse Rate 87 Respiratory Rate 18 Blood Pressure 124/61 Pulse Oximetry 98 Oxygen Delivery Method Room Air BMI result Body Mass Index 31.7 Labs 03/07/23 07:46 Labs: Laboratory Results - last 48 hr 03/18/23 03/18/23 03/18/23 11:26 16:04 20:16 POC Glucose 235 H 192 H 179 H 03/19/23 03/19/23 03/19/23 07:35 11:36 16:07 POC Glucose 203 H 183 H 244 H 03/19/23 03/20/23 19:53 07:27 POC Glucose 254 H 145 H Imaging Radiology Impressions: ITS Impressions [facility] X-Ray 03/11/23 14:33 IMPRESSION: 1. Moderate constipation. 2. Biliary stent in the right upper quadrant with cholecystectomy nissa in the right upper quadrant. Medications Medications Current Medications Al Hydroxide/Mg Hydroxide (Magnesium Hydrox/Alum Hydrox 30 Ml Oral.Susp) 30 ml PO Q6H PRN PRN Reason: Heartburn/Nausea Last Admin: 03/18/23 22:16 Dose: 30 ml Atorvastatin Calcium (Atorvastatin Calcium 20 Mg Tablet) 20 mg PO DAILY [facility] Last Admin: 03/20/23 08:17 Dose: 20 mg Clopidogrel Bisulfate (Clopidogrel Bisulfate 75 Mg Tablet) 75 mg PO DAILY [facility] Last Admin: 03/20/23 08:17 Dose: 75 mg Docusate Sodium (Docusate Sodium 100 Mg Capsule) 100 mg PO BID [facility] Last Admin: 03/20/23 08:16 Dose: 100 mg Escitalopram Oxalate (Escitalopram Oxalate 20 Mg Tablet) 20 mg PO DAILY [facility] Last Admin: 03/20/23 08:17 Dose: 20 mg Furosemide (Furosemide 20 Mg Tablet) 20 mg PO DAILY [facility]; Protocol Last Admin: 03/20/23 08:16 Dose: 20 mg Gabapentin (Gabapentin 100 Mg Capsule) 200 mg PO TID [facility] Last Admin: 03/20/23 08:14 Dose: 200 mg Hydroxyzine HCl (Hydroxyzine Hcl 25 Mg Tablet) 25 mg PO Q6H PRN PRN Reason: Anxiety Last Admin: 03/19/23 08:32 Dose: 25 mg Ibuprofen (Ibuprofen 400 Mg Tablet) 400 mg PO Q4H PRN PRN Reason: Pain, Moderate(Pain Scale 4-6) Last Admin: 03/19/23 22:00 Dose: 400 mg Insulin Human Lispro (Insulin Lispro 100 Unit/Ml 3 Ml Vial) 0 unit SUBCUT QIDWMHS [facility]; Protocol Last Admin: 03/20/23 08:18 Dose: Not Given Lactulose (Lactulose 20 Gm/30 Ml Solution) 20 gm PO TID [facility] Last Admin: 03/20/23 08:17 Dose: 20 gm Levothyroxine Sodium (Levothyroxine Sodium 25 Mcg Tablet) 25 mcg PO DAILY@0600 [facility] Last Admin: 03/20/23 06:33 Dose: 25 mcg Magnesium Hydroxide (Milk Of Magnesia 30 Ml Oral.Susp) 30 ml PO DAILY PRN PRN Reason: Constipation Last Admin: 03/08/23 10:47 Dose: 30 ml Midodrine (Midodrine Hcl 10 Mg Tablet) 10 mg PO TID [facility] Last Admin: 03/20/23 08:15 Dose: Not Given Olanzapine (Olanzapine 5 Mg Tablet) 5 mg PO DAILY [facility] Last Admin: 03/20/23 08:17 Dose: 5 mg Omeprazole (Omeprazole 20 Mg Capsule.Dr) 20 mg PO BID@0630,1630 [facility] Last Admin: 03/20/23 06:33 Dose: 20 mg Polyethylene Glycol (Polyethylene Glycol 3350 17 Gm Powd.Pack) 17 gm PO BID [facility] Last Admin: 03/20/23 08:18 Dose: 17 gm Potassium Chloride (Potassium Chloride Packet 20 Meq Packet) 20 meq PO DAILY [facility] Last Admin: 03/20/23 08:15 Dose: 20 meq Senna (Sennosides 8.6 Mg Tablet) 8.6 mg PO BEDTIME [facility] Last Admin: 03/19/23 22:01 Dose: 8.6 mg Spironolactone (Spironolactone 25 Mg Tablet) 50 mg PO DAILY [facility]; Protocol Last Admin: 03/20/23 08:14 Dose: 50 mg Tiotropium [place] (Tiotropium [place] 2.5 Mcg Inhaler) 2 puff INHALE RDAILY [facility] Last Admin: 03/20/23 08:24 Dose: 2 puff Trazodone HCl (Trazodone Hcl 100 Mg Tablet) 100 mg PO BEDTIME PRN PRN Reason: Insomnia Last Admin: 03/18/23 21:27 Dose: 100 mg Allergies Allergies Allergy/AdvReac Type Severity Reaction Status Date / Time aspirin Allergy Unknown Verified 03/13/23 18:25 bee pollen [bee stings] Allergy Unknown Verified 03/13/23 18:25 Penicillins Allergy Unknown Verified 03/13/23 18:25 Assessment & Plan Assessment & Plan (1) Mood disorder: Status: Acute Code(s): F39 - Unspecified mood [affective] disorder Plan The patient is an elderly Syrian female with no prior psychiatric history admitted for suicidality in the context of psychosocial stressors. The patient presents depressive symptoms elicited by depressed mood, anhedonia, lack of energy, feelings of hopelessness and suicidal ideation. But also she presented with racing thoughts, irritability, inability to concentrate and impulsivity. She is a very poor historian so we will try to gather more information. Plan 1. Gather collateral information will try to contact her daughter and get more information. 2. Continue with her regular med antidepressants. 3. The patient agreed to try Zyprexa 5 mg p.o. q.h.s. to target racing thoughts and paranoia. 4. Continue with medical workout. 5. 15 minutes checks at this moment. 6. Increase PRN Trazodone up to 100 mg po qhs PRN 7. Start Lamictal 25 mg p.o. daily to target depression and mood lability. 8. Increase Miralax bid due to constipation 9. Waiting for placement Reason for continued inpatient stay Substantial Risk for: inability to function, rapid decompensation and med/psych decompensation Time Spent With Patient Time: Total time managing care of this patient today __20__ minutes.
[2023-03-20 11:31] LABS: Glucose, Whole Blood 355 mg/dL (60-115)
[2023-03-20] MEDS: Insulin Lispro 100 UNIT/ML 3 ML VIAL SUBCUT ×3 (11:42→20:24)
[2023-03-20] MEDS: Milk of Magnesia 30 ML ORAL.SUSP PO (12:19)
[2023-03-20 13:28] LABS: Glucose, Whole Blood 246 mg/dL (60-115)
[2023-03-20 16:42] LABS: Glucose, Whole Blood 239 mg/dL (60-115)
[2023-03-20] MEDS: Ibuprofen 400 MG TABLET PO (17:30)
[2023-03-20 19:55] VITALS: BP 114/65; PULSE 86; RESP 18; TEMP 36.9; O2SAT 98
[2023-03-20 20:03] LABS: Glucose, Whole Blood 220 mg/dL (60-115)
[2023-03-20] MEDS: Lidocaine 4 % Patch ADH..PATCH 1 PATCH TRANSDERMA (20:20)
[2023-03-20] MEDS: Midodrine HCl 10 MG TABLET PO (20:22)
[2023-03-20] MEDS: Sennosides 8.6 MG TABLET PO (20:22)
[2023-03-20] MEDS: traZODone HCL 100 MG TABLET PO (20:44)
[2023-03-21] MEDS: Omeprazole 20 MG CAPSULE.DR PO ×2 (06:19→16:46)
[2023-03-21] MEDS: Levothyroxine Sodium 25 MCG TABLET PO (06:19)
[2023-03-21 07:00] VITALS: BMI 33.7
[2023-03-21 07:50] LABS: Glucose, Whole Blood 206 mg/dL (60-115)
[2023-03-21 08:17] VITALS: BP 133/55; PULSE 100; RESP 18; TEMP 36.6; O2SAT 98
[2023-03-21] MEDS: Lactulose 20 GM/30 ML SOLUTION PO ×3 (08:19→20:32)
[2023-03-21] MEDS: Potassium Chloride Packet 20 MEQ PACKET PO (08:20)
[2023-03-21] MEDS: polyethylene glycoL 3350 17 GM POWD.PACK PO (08:20)
[2023-03-21] MEDS: Spironolactone 25 MG TABLET 50 MG PO (08:21)
[2023-03-21] MEDS: Gabapentin 100 MG CAPSULE 200 MG PO ×3 (08:21→20:32)
[2023-03-21] MEDS: OLANZapine 5 MG TABLET PO (08:22)
[2023-03-21] MEDS: Atorvastatin Calcium 20 MG TABLET PO (08:22)
[2023-03-21] MEDS: Docusate Sodium 100 MG CAPSULE PO (08:22)
[2023-03-21] MEDS: Escitalopram Oxalate 20 MG TABLET PO (08:22)
[2023-03-21] MEDS: Furosemide 20 MG TABLET PO (08:23)
[2023-03-21] MEDS: Insulin Lispro 100 UNIT/ML 3 ML VIAL SUBCUT ×4 (08:23→20:28)
[2023-03-21] MEDS: Clopidogrel Bisulfate 75 MG TABLET PO (08:23)
[2023-03-21 11:37] LABS: Glucose, Whole Blood 287 mg/dL (60-115)
--- NOTE | 2023-03-21 12:59 | P.PNPSI_ITS ---
Subjective Subjective Date of Service: 03/21/23 Reason For Visit: MDD F32.1 Subjective Notes: Conditional Voluntary Interim History: The nursing staff reported the patient had been pleasant, cooperative cheerful, she has attended to groups and she slept well last night. The social media intern reported the assisted living facility screen her and she could be accepted probably next Saturday. On interview the patient denies new symptoms she is aware that she is going to be discharged next week since her daughter does not want her back at home due to the several conflicts with her . Mental Status Exam Mental Status Exam Patient Appearance: Well Grooomed and Appropriate Patient Orientation: Person and Situation Level of Consciousness: Awake and Appropriate Patient Behavior: Cooperative and Passive Mood Description: Calm Affect Description: Constricted Patient Cognition Impaired: Yes Ability to Follow Directions: Good Speech Pattern: Clear Hallucinations: None Delusions: Not Present Thought Process: Distracted Thought Content: positive for Circumstantial Judgement: Fair Diagnostics Vital Signs (24Hr): Vital Signs - 24 hr 03/20/23 19:55 03/21/23 08:17 Temperature 98.5 F 98 F Pulse Rate 86 100 Respiratory Rate 18 18 Blood Pressure 114/65 133/55 L Pulse Oximetry 98 98 Oxygen Delivery Method Room Air Room Air BMI result Body Mass Index 33.7 Labs 03/07/23 07:46 Labs: Laboratory Results - last 48 hr 03/19/23 03/19/23 03/20/23 16:07 19:53 07:27 POC Glucose 244 H 254 H 145 H 03/20/23 03/20/23 03/20/23 11:27 13:24 16:37 POC Glucose 355 H* 246 H 239 H 03/20/23 03/21/23 03/21/23 19:58 07:42 11:32 POC Glucose 220 H 206 H 287 H Imaging Radiology Impressions: ITS Impressions KUB X-Ray 03/11/23 14:33 IMPRESSION: 1. Moderate constipation. 2. Biliary stent in the right upper quadrant with cholecystectomy nissa in the right upper quadrant. Medications Medications Current Medications Al Hydroxide/Mg Hydroxide (Magnesium Hydrox/Alum Hydrox 30 Ml Oral.Susp) 30 ml PO Q6H PRN PRN Reason: Heartburn/Nausea Last Admin: 03/18/23 22:16 Dose: 30 ml Atorvastatin Calcium (Atorvastatin Calcium 20 Mg Tablet) 20 mg PO DAILY [facility] Last Admin: 03/21/23 08:22 Dose: 20 mg Clopidogrel Bisulfate (Clopidogrel Bisulfate 75 Mg Tablet) 75 mg PO DAILY [facility] Last Admin: 03/21/23 08:23 Dose: 75 mg Docusate Sodium (Docusate Sodium 100 Mg Capsule) 100 mg PO BID [facility] Last Admin: 03/21/23 08:22 Dose: 100 mg Escitalopram Oxalate (Escitalopram Oxalate 20 Mg Tablet) 20 mg PO DAILY [facility] Last Admin: 03/21/23 08:22 Dose: 20 mg Furosemide (Furosemide 20 Mg Tablet) 20 mg PO DAILY [facility]; Protocol Last Admin: 03/21/23 08:23 Dose: 20 mg Gabapentin (Gabapentin 100 Mg Capsule) 200 mg PO TID [facility] Last Admin: 03/21/23 08:21 Dose: 200 mg Hydroxyzine HCl (Hydroxyzine Hcl 25 Mg Tablet) 25 mg PO Q6H PRN PRN Reason: Anxiety Last Admin: 03/19/23 08:32 Dose: 25 mg Ibuprofen (Ibuprofen 400 Mg Tablet) 400 mg PO Q4H PRN PRN Reason: Pain, Moderate(Pain Scale 4-6) Last Admin: 03/20/23 17:30 Dose: 400 mg Insulin Human Lispro (Insulin Lispro 100 Unit/Ml 3 Ml Vial) 0 unit SUBCUT QIDWMHS [facility]; Protocol Last Admin: 03/21/23 11:55 Dose: 6 unit Lactulose (Lactulose 20 Gm/30 Ml Solution) 20 gm PO TID [facility] Last Admin: 03/21/23 08:19 Dose: 20 gm Levothyroxine Sodium (Levothyroxine Sodium 25 Mcg Tablet) 25 mcg PO DAILY@0600 [facility] Last Admin: 03/21/23 06:19 Dose: 25 mcg Lidocaine (Lidocaine 4 % Patch Adh..Patch) 1 patch TRANSDERMA DAILY [facility]; Protocol Magnesium Hydroxide (Milk Of Magnesia 30 Ml Oral.Susp) 30 ml PO DAILY PRN PRN Reason: Constipation Last Admin: 03/20/23 12:19 Dose: 30 ml Midodrine (Midodrine Hcl 10 Mg Tablet) 10 mg PO TID [facility] Last Admin: 03/21/23 11:10 Dose: Not Given Olanzapine (Olanzapine 5 Mg Tablet) 5 mg PO DAILY [facility] Last Admin: 03/21/23 08:22 Dose: 5 mg Omeprazole (Omeprazole 20 Mg Capsule.Dr) 20 mg PO BID@0630,1630 [facility] Last Admin: 03/21/23 06:19 Dose: 20 mg Polyethylene Glycol (Polyethylene Glycol 3350 17 Gm Powd.Pack) 17 gm PO BID [facility] Last Admin: 03/21/23 08:20 Dose: 17 gm Potassium Chloride (Potassium Chloride Packet 20 Meq Packet) 20 meq PO DAILY [facility] Last Admin: 03/21/23 08:20 Dose: 20 meq Senna (Sennosides 8.6 Mg Tablet) 8.6 mg PO BEDTIME [facility] Last Admin: 03/20/23 20:22 Dose: 8.6 mg Spironolactone (Spironolactone 25 Mg Tablet) 50 mg PO DAILY [facility]; Protocol Last Admin: 03/21/23 08:21 Dose: 50 mg Tiotropium [place] (Tiotropium [place] 2.5 Mcg Inhaler) 2 puff INHALE RDAILY [facility] Last Admin: 03/21/23 08:19 Dose: 2 puff Trazodone HCl (Trazodone Hcl 100 Mg Tablet) 100 mg PO BEDTIME PRN PRN Reason: Insomnia Last Admin: 03/20/23 20:44 Dose: 100 mg Allergies Allergies Allergy/AdvReac Type Severity Reaction Status Date / Time aspirin Allergy Unknown Verified 03/13/23 18:25 bee pollen [bee stings] Allergy Unknown Verified 03/13/23 18:25 Penicillins Allergy Unknown Verified 03/13/23 18:25 Assessment & Plan Assessment & Plan (1) Mood disorder: Status: Acute Code(s): F39 - Unspecified mood [affective] disorder Plan The patient is an elderly [place] female with no prior psychiatric history admitted for suicidality in the context of psychosocial stressors. The patient presents depressive symptoms elicited by depressed mood, anhedonia, lack of energy, feelings of hopelessness and suicidal ideation. But also she presented with racing thoughts, irritability, inability to concentrate and impulsivity. She is a very poor historian so we will try to gather more information. Plan 1. Gather collateral information will try to contact her daughter and get more information. 2. Continue with her regular med antidepressants. 3. The patient agreed to try Zyprexa 5 mg p.o. q.h.s. to target racing thoughts and paranoia. 4. Continue with medical workout. 5. 15 minutes checks at this moment. 6. Increase PRN Trazodone up to 100 mg po qhs PRN 7. Start Lamictal 25 mg p.o. daily to target depression and mood lability. 8. Increase Miralax bid due to constipation 9. Waiting for placement to assisted living facility. Reason for continued inpatient stay Substantial Risk for: inability to function, rapid decompensation and med/psych decompensation Time Spent With Patient Time: Total time managing care of this patient today __20__ minutes.
[2023-03-21 14:20] VITALS: BP 117/56; PULSE 100
[2023-03-21] MEDS: Lidocaine 4 % Patch ADH..PATCH 1 PATCH TRANSDERMA (14:22)
[2023-03-21 16:32] LABS: Glucose, Whole Blood 264 mg/dL (60-115)
[2023-03-21 20:00] VITALS: BP 135/55; PULSE 94; RESP 18; TEMP 37; O2SAT 100
[2023-03-21 20:26] LABS: Glucose, Whole Blood 263 mg/dL (60-115)
[2023-03-21] MEDS: Ibuprofen 400 MG TABLET PO (20:30)
[2023-03-22 06:00] VITALS: BP 123/52; PULSE 99; RESP 16; TEMP 36.3; O2SAT 100
[2023-03-22] MEDS: Omeprazole 20 MG CAPSULE.DR PO ×2 (06:42→16:57)
[2023-03-22] MEDS: Levothyroxine Sodium 25 MCG TABLET PO (06:42)
[2023-03-22 08:03] LABS: Glucose, Whole Blood 201 mg/dL (60-115)
[2023-03-22] MEDS: Insulin Lispro 100 UNIT/ML 3 ML VIAL SUBCUT ×4 (08:39→21:11)
[2023-03-22] MEDS: Escitalopram Oxalate 20 MG TABLET PO (08:40)
[2023-03-22] MEDS: Docusate Sodium 100 MG CAPSULE PO ×2 (08:40→21:08)
[2023-03-22] MEDS: Spironolactone 25 MG TABLET 50 MG PO (08:40)
[2023-03-22] MEDS: OLANZapine 5 MG TABLET PO (08:41)
[2023-03-22] MEDS: Furosemide 20 MG TABLET PO (08:41)
[2023-03-22] MEDS: Atorvastatin Calcium 20 MG TABLET PO (08:41)
[2023-03-22] MEDS: Clopidogrel Bisulfate 75 MG TABLET PO (08:41)
[2023-03-22] MEDS: Gabapentin 100 MG CAPSULE 200 MG PO ×3 (08:41→21:10)
[2023-03-22] MEDS: Potassium Chloride Packet 20 MEQ PACKET PO (08:42)
[2023-03-22] MEDS: Lidocaine 4 % Patch ADH..PATCH 1 PATCH TRANSDERMA (08:43)
[2023-03-22] MEDS: Lactulose 20 GM/30 ML SOLUTION PO ×3 (08:45→21:06)
[2023-03-22 11:53] LABS: Glucose, Whole Blood 221 mg/dL (60-115)
--- NOTE | 2023-03-22 12:56 | HO.PSYCHPN ---
Subjective Subjective Date of Service: 03/22/23 Reason For Visit: MDD F32.1 Subjective Notes: Conditional Voluntary Interim History: The nursing staff reported the patient had being cooperative, pleasant, socializing very well. She slept well last night. The director of social work reported that she is going to the assisted living facility on Saturday. On interview the patient denies new symptoms, waiting for placement. Mental Status Exam Mental Status Exam Patient Appearance: Well Grooomed and Appropriate Patient Orientation: Person and Situation Level of Consciousness: Awake and Appropriate Patient Behavior: Guarded and Passive Mood Description: Withdrawn Affect Description: Constricted Patient Cognition Impaired: Yes Ability to Follow Directions: Good Speech Pattern: Clear Hallucinations: None Delusions: Not Present Thought Process: Linear Thought Content: positive for Circumstantial Judgement: Fair Diagnostics Vital Signs (24Hr): Vital Signs - 24 hr 03/21/23 14:20 03/21/23 20:00 03/22/23 06:00 Temperature 98.6 F 97.3 F Pulse Rate 100 94 99 Respiratory Rate 18 16 Blood Pressure 117/56 L 135/55 L 123/52 L Pulse Oximetry 100 100 Oxygen Delivery Method Room Air Room Air BMI result Body Mass Index 33.7 Labs 03/07/23 07:46 Labs: Laboratory Results - last 48 hr 03/20/23 03/20/23 03/20/23 13:24 16:37 19:58 POC Glucose 246 H 239 H 220 H 03/21/23 03/21/23 03/21/23 07:42 11:32 16:27 POC Glucose 206 H 287 H 264 H 03/21/23 03/22/23 03/22/23 20:21 07:51 11:42 POC Glucose 263 H 201 H 221 H Imaging Radiology Impressions: ITS Impressions KUB X-Ray 03/11/23 14:33 IMPRESSION: 1. Moderate constipation. 2. Biliary stent in the right upper quadrant with cholecystectomy nissa in the right upper quadrant. Medications Medications Current Medications Al Hydroxide/Mg Hydroxide (Magnesium Hydrox/Alum Hydrox 30 Ml Oral.Susp) 30 ml PO Q6H PRN PRN Reason: Heartburn/Nausea Last Admin: 03/18/23 22:16 Dose: 30 ml Atorvastatin Calcium (Atorvastatin Calcium 20 Mg Tablet) 20 mg PO DAILY [facility] Last Admin: 03/22/23 08:41 Dose: 20 mg Clopidogrel Bisulfate (Clopidogrel Bisulfate 75 Mg Tablet) 75 mg PO DAILY [facility] Last Admin: 03/22/23 08:41 Dose: 75 mg Docusate Sodium (Docusate Sodium 100 Mg Capsule) 100 mg PO BID [facility] Last Admin: 03/22/23 08:40 Dose: 100 mg Escitalopram Oxalate (Escitalopram Oxalate 20 Mg Tablet) 20 mg PO DAILY [facility] Last Admin: 03/22/23 08:40 Dose: 20 mg Furosemide (Furosemide 20 Mg Tablet) 20 mg PO DAILY [facility]; Protocol Last Admin: 03/22/23 08:41 Dose: 20 mg Gabapentin (Gabapentin 100 Mg Capsule) 200 mg PO TID [facility] Last Admin: 03/22/23 08:41 Dose: 200 mg Hydroxyzine HCl (Hydroxyzine Hcl 25 Mg Tablet) 25 mg PO Q6H PRN PRN Reason: Anxiety Last Admin: 03/19/23 08:32 Dose: 25 mg Ibuprofen (Ibuprofen 400 Mg Tablet) 400 mg PO Q4H PRN PRN Reason: Pain, Moderate(Pain Scale 4-6) Last Admin: 03/21/23 20:30 Dose: 400 mg Insulin Human Lispro (Insulin Lispro 100 Unit/Ml 3 Ml Vial) 0 unit SUBCUT QIDWMHS [facility]; Protocol Last Admin: 03/22/23 11:58 Dose: 4 unit Lactulose (Lactulose 20 Gm/30 Ml Solution) 20 gm PO TID [facility] Last Admin: 03/22/23 08:45 Dose: 20 gm Levothyroxine Sodium (Levothyroxine Sodium 25 Mcg Tablet) 25 mcg PO DAILY@0600 [facility] Last Admin: 03/22/23 06:42 Dose: 25 mcg Lidocaine (Lidocaine 4 % Patch Adh..Patch) 1 patch TRANSDERMA DAILY [facility]; Protocol Last Admin: 03/22/23 08:43 Dose: 1 patch Magnesium Hydroxide (Milk Of Magnesia 30 Ml Oral.Susp) 30 ml PO DAILY PRN PRN Reason: Constipation Last Admin: 03/20/23 12:19 Dose: 30 ml Midodrine (Midodrine Hcl 10 Mg Tablet) 10 mg PO TID [facility] Last Admin: 03/22/23 08:43 Dose: Not Given Olanzapine (Olanzapine 5 Mg Tablet) 5 mg PO DAILY [facility] Last Admin: 03/22/23 08:41 Dose: 5 mg Omeprazole (Omeprazole 20 Mg Capsule.Dr) 20 mg PO BID@0630,1630 [facility] Last Admin: 03/22/23 06:42 Dose: 20 mg Polyethylene Glycol (Polyethylene Glycol 3350 17 Gm Powd.Pack) 17 gm PO BID [facility] Last Admin: 03/22/23 08:45 Dose: Not Given Potassium Chloride (Potassium Chloride Packet 20 Meq Packet) 20 meq PO DAILY [facility] Last Admin: 03/22/23 08:42 Dose: 20 meq Senna (Sennosides 8.6 Mg Tablet) 8.6 mg PO BEDTIME [facility] Last Admin: 03/21/23 20:35 Dose: Not Given Spironolactone (Spironolactone 25 Mg Tablet) 50 mg PO DAILY [facility]; Protocol Last Admin: 03/22/23 08:40 Dose: 50 mg Tiotropium [place] (Tiotropium [place] 2.5 Mcg Inhaler) 2 puff INHALE RDAILY [facility] Last Admin: 03/22/23 08:37 Dose: 2 puff Trazodone HCl (Trazodone Hcl 100 Mg Tablet) 100 mg PO BEDTIME PRN PRN Reason: Insomnia Last Admin: 03/20/23 20:44 Dose: 100 mg Allergies Allergies Allergy/AdvReac Type Severity Reaction Status Date / Time aspirin Allergy Unknown Verified 03/13/23 18:25 bee pollen [bee stings] Allergy Unknown Verified 03/13/23 18:25 Penicillins Allergy Unknown Verified 03/13/23 18:25 Assessment & Plan Assessment & Plan (1) Mood disorder: Status: Acute Code(s): F39 - Unspecified mood [affective] disorder Plan The patient is an elderly [place] female with no prior psychiatric history admitted for suicidality in the context of psychosocial stressors. The patient presents depressive symptoms elicited by depressed mood, anhedonia, lack of energy, feelings of hopelessness and suicidal ideation. But also she presented with racing thoughts, irritability, inability to concentrate and impulsivity. She is a very poor historian so we will try to gather more information. Plan 1. Gather collateral information will try to contact her daughter and get more information. 2. Continue with her regular med antidepressants. 3. The patient agreed to try Zyprexa 5 mg p.o. q.h.s. to target racing thoughts and paranoia. 4. Continue with medical workout. 5. 15 minutes checks at this moment. 6. Increase PRN Trazodone up to 100 mg po qhs PRN 7. Start Lamictal 25 mg p.o. daily to target depression and mood lability. 8. Increase Miralax bid due to constipation 9. Waiting for placement to assisted living facility. Reason for continued inpatient stay Substantial Risk for: inability to function, rapid decompensation and med/psych decompensation Time Spent With Patient Time: Total time managing care of this patient today __21__ minutes.
[2023-03-22 14:20] VITALS: BP 142/61; PULSE 84; RESP 20; TEMP 37; O2SAT 99
[2023-03-22 16:45] LABS: Glucose, Whole Blood 244 mg/dL (60-115)
[2023-03-22 19:50] VITALS: BP 105/51; PULSE 94; RESP 18; TEMP 37.2; O2SAT 99
[2023-03-22 20:04] LABS: Glucose, Whole Blood 223 mg/dL (60-115)
[2023-03-22] MEDS: polyethylene glycoL 3350 17 GM POWD.PACK PO (21:06)
[2023-03-22] MEDS: Sennosides 8.6 MG TABLET PO (21:07)
[2023-03-22] MEDS: Ibuprofen 400 MG TABLET PO (21:08)
[2023-03-23] MEDS: Omeprazole 20 MG CAPSULE.DR PO ×2 (06:32→15:32)
[2023-03-23] MEDS: Levothyroxine Sodium 25 MCG TABLET PO (06:32)
[2023-03-23 07:45] LABS: Glucose, Whole Blood 163 mg/dL (60-115)
--- NOTE | 2023-03-23 08:02 | P.PNPSI_ITS ---
Subjective Subjective Date of Service: 03/23/23 Reason For Visit: MDD F32.1 Subjective Notes: Conditional Voluntary Interim History: The nursing staff reported patient has been pleasant, cooperative cheerful and engage in groups. On interview the patient denies new symptoms she is waiting for placement she is aware that she is going to an assisted living facility since her daughter does not want to take her back. Mental Status Exam Mental Status Exam Patient Appearance: Well Grooomed and Appropriate Patient Orientation: Person and Situation Level of Consciousness: Awake and Appropriate Patient Behavior: Appropriate and Cooperative Mood Description: Calm Affect Description: Constricted Patient Cognition Impaired: Yes Ability to Follow Directions: Good Speech Pattern: Clear Hallucinations: None Delusions: Not Present Thought Process: Linear Thought Content: positive for Circumstantial Judgement: Fair Diagnostics Vital Signs (24Hr): Vital Signs - 24 hr 03/22/23 14:20 03/22/23 19:50 Temperature 98.6 F 99 F Pulse Rate 84 94 Respiratory Rate 20 18 Blood Pressure 142/61 H 105/51 L Pulse Oximetry 99 99 Oxygen Delivery Method Room Air Room Air BMI result Body Mass Index 33.7 Labs 03/07/23 07:46 Labs: Laboratory Results - last 48 hr 03/21/23 03/21/23 03/21/23 11:32 16:27 20:21 POC Glucose 287 H 264 H 263 H 03/22/23 03/22/23 03/22/23 07:51 11:42 16:38 POC Glucose 201 H 221 H 244 H 03/22/23 03/23/23 19:56 07:37 POC Glucose 223 H 163 H Imaging Radiology Impressions: ITS Impressions KUB X-Ray 03/11/23 14:33 IMPRESSION: 1. Moderate constipation. 2. Biliary stent in the right upper quadrant with cholecystectomy nissa in the right upper quadrant. Medications Medications Current Medications Al Hydroxide/Mg Hydroxide (Magnesium Hydrox/Alum Hydrox 30 Ml Oral.Susp) 30 ml PO Q6H PRN PRN Reason: Heartburn/Nausea Last Admin: 03/18/23 22:16 Dose: 30 ml Atorvastatin Calcium (Atorvastatin Calcium 20 Mg Tablet) 20 mg PO DAILY [facility] Last Admin: 03/22/23 08:41 Dose: 20 mg Clopidogrel Bisulfate (Clopidogrel Bisulfate 75 Mg Tablet) 75 mg PO DAILY [facility] Last Admin: 03/22/23 08:41 Dose: 75 mg Docusate Sodium (Docusate Sodium 100 Mg Capsule) 100 mg PO BID [facility] Last Admin: 03/22/23 21:08 Dose: 100 mg Escitalopram Oxalate (Escitalopram Oxalate 20 Mg Tablet) 20 mg PO DAILY [facility] Last Admin: 03/22/23 08:40 Dose: 20 mg Furosemide (Furosemide 20 Mg Tablet) 20 mg PO DAILY [facility]; Protocol Last Admin: 03/22/23 08:41 Dose: 20 mg Gabapentin (Gabapentin 100 Mg Capsule) 200 mg PO TID [facility] Last Admin: 03/22/23 21:10 Dose: 200 mg Hydroxyzine HCl (Hydroxyzine Hcl 25 Mg Tablet) 25 mg PO Q6H PRN PRN Reason: Anxiety Last Admin: 03/19/23 08:32 Dose: 25 mg Ibuprofen (Ibuprofen 400 Mg Tablet) 400 mg PO Q4H PRN PRN Reason: Pain, Moderate(Pain Scale 4-6) Last Admin: 03/22/23 21:08 Dose: 400 mg Insulin Human Lispro (Insulin Lispro 100 Unit/Ml 3 Ml Vial) 0 unit SUBCUT QIDWMHS [facility]; Protocol Last Admin: 03/22/23 21:11 Dose: 4 unit Lactulose (Lactulose 20 Gm/30 Ml Solution) 20 gm PO TID [facility] Last Admin: 03/22/23 21:06 Dose: 20 gm Levothyroxine Sodium (Levothyroxine Sodium 25 Mcg Tablet) 25 mcg PO DAILY@0600 [facility] Last Admin: 03/23/23 06:32 Dose: 25 mcg Lidocaine (Lidocaine 4 % Patch Adh..Patch) 1 patch TRANSDERMA DAILY [facility]; Protocol Last Admin: 03/22/23 08:43 Dose: 1 patch Magnesium Hydroxide (Milk Of Magnesia 30 Ml Oral.Susp) 30 ml PO DAILY PRN PRN Reason: Constipation Last Admin: 03/20/23 12:19 Dose: 30 ml Midodrine (Midodrine Hcl 10 Mg Tablet) 10 mg PO TID [facility] Last Admin: 03/22/23 21:09 Dose: Not Given Olanzapine (Olanzapine 5 Mg Tablet) 5 mg PO DAILY [facility] Last Admin: 03/22/23 08:41 Dose: 5 mg Omeprazole (Omeprazole 20 Mg Capsule.Dr) 20 mg PO BID@0630,1630 [facility] Last Admin: 03/23/23 06:32 Dose: 20 mg Polyethylene Glycol (Polyethylene Glycol 3350 17 Gm Powd.Pack) 17 gm PO BID [facility] Last Admin: 03/22/23 21:06 Dose: 17 gm Potassium Chloride (Potassium Chloride Packet 20 Meq Packet) 20 meq PO DAILY [facility] Last Admin: 03/22/23 08:42 Dose: 20 meq Senna (Sennosides 8.6 Mg Tablet) 8.6 mg PO BEDTIME [facility] Last Admin: 03/22/23 21:07 Dose: 8.6 mg Spironolactone (Spironolactone 25 Mg Tablet) 50 mg PO DAILY [facility]; Protocol Last Admin: 03/22/23 08:40 Dose: 50 mg Tiotropium [place] (Tiotropium [place] 2.5 Mcg Inhaler) 2 puff INHALE RDAILY [facility] Last Admin: 03/22/23 08:37 Dose: 2 puff Trazodone HCl (Trazodone Hcl 100 Mg Tablet) 100 mg PO BEDTIME PRN PRN Reason: Insomnia Last Admin: 03/20/23 20:44 Dose: 100 mg Allergies Allergies Allergy/AdvReac Type Severity Reaction Status Date / Time aspirin Allergy Unknown Verified 03/13/23 18:25 bee pollen [bee stings] Allergy Unknown Verified 03/13/23 18:25 Penicillins Allergy Unknown Verified 03/13/23 18:25 Assessment & Plan Assessment & Plan (1) Mood disorder: Status: Acute Code(s): F39 - Unspecified mood [affective] disorder Plan The patient is an elderly [place] female with no prior psychiatric history admitted for suicidality in the context of psychosocial stressors. The patient presents depressive symptoms elicited by depressed mood, anhedonia, lack of energy, feelings of hopelessness and suicidal ideation. But also she presented with racing thoughts, irritability, inability to concentrate and impulsivity. She is a very poor historian so we will try to gather more information. Plan 1. Gather collateral information will try to contact her daughter and get more information. 2. Continue with her regular med antidepressants. 3. The patient agreed to try Zyprexa 5 mg p.o. q.h.s. to target racing thoughts and paranoia. 4. Continue with medical workout. 5. 15 minutes checks at this moment. 6. Increase PRN Trazodone up to 100 mg po qhs PRN 7. Start Lamictal 25 mg p.o. daily to target depression and mood lability. 8. Increase Miralax bid due to constipation 9. Waiting for placement to assisted living facility. Reason for continued inpatient stay Substantial Risk for: inability to function, rapid decompensation and med/psych decompensation Time Spent With Patient Time: Total time managing care of this patient today __20__ minutes.
[2023-03-23 08:06] VITALS: BP 122/56; PULSE 94; RESP 18; TEMP 36.8; O2SAT 98
[2023-03-23] MEDS: Insulin Lispro 100 UNIT/ML 3 ML VIAL SUBCUT ×4 (08:35→20:50)
[2023-03-23] MEDS: Lactulose 20 GM/30 ML SOLUTION PO ×3 (08:38→20:51)
[2023-03-23] MEDS: Potassium Chloride Packet 20 MEQ PACKET PO (08:38)
[2023-03-23] MEDS: polyethylene glycoL 3350 17 GM POWD.PACK PO ×2 (08:38→20:51)
[2023-03-23] MEDS: Clopidogrel Bisulfate 75 MG TABLET PO (08:38)
[2023-03-23] MEDS: Gabapentin 100 MG CAPSULE 200 MG PO ×3 (08:38→20:51)
[2023-03-23] MEDS: Lidocaine 4 % Patch ADH..PATCH 1 PATCH TRANSDERMA (08:38)
[2023-03-23] MEDS: Escitalopram Oxalate 20 MG TABLET PO (08:38)
[2023-03-23] MEDS: Atorvastatin Calcium 20 MG TABLET PO (08:38)
[2023-03-23] MEDS: OLANZapine 5 MG TABLET PO (08:38)
[2023-03-23] MEDS: Furosemide 20 MG TABLET PO (08:38)
[2023-03-23] MEDS: Spironolactone 25 MG TABLET 50 MG PO (08:39)
[2023-03-23] MEDS: Docusate Sodium 100 MG CAPSULE PO ×2 (08:39→20:51)
[2023-03-23] MEDS: Ibuprofen 400 MG TABLET PO ×3 (08:44→22:55)
[2023-03-23] MEDS: hydrOXYzine HCL 25 MG TABLET PO ×2 (08:45→22:54)
[2023-03-23 11:31] LABS: Glucose, Whole Blood 242 mg/dL (60-115)
[2023-03-23 15:25] VITALS: BP 117/53; PULSE 90; O2SAT 98
[2023-03-23 16:33] LABS: Glucose, Whole Blood 210 mg/dL (60-115)
--- NOTE | 2023-03-23 17:49 | PC.NURSE ---
Lourdes reported dyspnea on exertion this afternoon and Dr. Anderson notified. Respirations have been free and easy and no apparent distress noted throughout the shift. O2 saturation checked and 98% on room air. Encuraged Lourdes to move slowly and breathe in through her nose and out through her mouth when she is feeling short of breath and she verbalized positive understanding.
[2023-03-23 18:00] VITALS: BP 121/55; PULSE 89; RESP 18; TEMP 36.8; O2SAT 97
[2023-03-23 20:01] LABS: Glucose, Whole Blood 263 mg/dL (60-115)
[2023-03-23] MEDS: Sennosides 8.6 MG TABLET PO (20:51)
[2023-03-23] MEDS: traZODone HCL 100 MG TABLET PO (22:54)
[2023-03-24] MEDS: Levothyroxine Sodium 25 MCG TABLET PO (06:50)
[2023-03-24] MEDS: Omeprazole 20 MG CAPSULE.DR PO ×2 (06:50→15:32)
[2023-03-24 06:59] LABS: Glucose, Whole Blood 176 mg/dL (60-115)
[2023-03-24 07:48] VITALS: BP 125/62; PULSE 90; RESP 18; TEMP 36.7; O2SAT 99
[2023-03-24] MEDS: Insulin Lispro 100 UNIT/ML 3 ML VIAL SUBCUT ×3 (08:26→20:21)
[2023-03-24] MEDS: polyethylene glycoL 3350 17 GM POWD.PACK PO (08:26)
[2023-03-24] MEDS: Lactulose 20 GM/30 ML SOLUTION PO (08:26)
[2023-03-24] MEDS: Potassium Chloride Packet 20 MEQ PACKET PO (08:26)
[2023-03-24] MEDS: Lidocaine 4 % Patch ADH..PATCH 1 PATCH TRANSDERMA (08:26)
[2023-03-24] MEDS: Docusate Sodium 100 MG CAPSULE PO (08:27)
[2023-03-24] MEDS: hydrOXYzine HCL 25 MG TABLET PO ×2 (08:27→20:12)
[2023-03-24] MEDS: OLANZapine 5 MG TABLET PO (08:27)
[2023-03-24] MEDS: Gabapentin 100 MG CAPSULE 200 MG PO ×3 (08:27→20:12)
[2023-03-24] MEDS: Spironolactone 25 MG TABLET 50 MG PO (08:27)
[2023-03-24] MEDS: Escitalopram Oxalate 20 MG TABLET PO (08:27)
[2023-03-24] MEDS: Atorvastatin Calcium 20 MG TABLET PO (08:27)
[2023-03-24] MEDS: Furosemide 20 MG TABLET PO (08:27)
[2023-03-24] MEDS: Clopidogrel Bisulfate 75 MG TABLET PO (08:27)
[2023-03-24] MEDS: Ibuprofen 400 MG TABLET PO ×3 (08:28→20:13)
--- NOTE | 2023-03-24 09:44 | HO.PSYCHPN ---
Subjective Subjective Date of Service: 03/24/23 Reason For Visit: MDD F32.1 Subjective Notes: Conditional Voluntary Interim History: The nursing staff reported the patient had been pleasant cooperative talkative. She slept well last night and her fasting blood sugars well 176 today in the morning. On interview the patient denies new symptoms she is waiting for placement. Mental Status Exam Mental Status Exam Patient Appearance: Well Grooomed and Appropriate Patient Orientation: Person and Situation Level of Consciousness: Awake and Appropriate Patient Behavior: Guarded and Passive Mood Description: Calm Affect Description: Constricted Patient Cognition Impaired: Yes Ability to Follow Directions: Good Speech Pattern: Clear Hallucinations: None Delusions: Not Present Thought Process: Linear Thought Content: positive for [place] and positive for Circumstantial Judgement: Fair Diagnostics Vital Signs (24Hr): Vital Signs - 24 hr 03/23/23 15:25 03/23/23 18:00 03/24/23 07:48 Temperature 98.2 F 98.0 F Pulse Rate 90 89 90 Respiratory Rate 18 18 Blood Pressure 117/53 L 121/55 L 125/62 Pulse Oximetry 98 97 99 Oxygen Delivery Method Room Air Room Air Room Air BMI result Body Mass Index 33.7 Labs 03/07/23 07:46 Labs: Laboratory Results - last 48 hr 03/22/23 03/22/23 03/22/23 11:42 16:38 19:56 POC Glucose 221 H 244 H 223 H 03/23/23 03/23/23 03/23/23 07:37 11:25 16:29 POC Glucose 163 H 242 H 210 H 03/23/23 03/24/23 19:42 06:52 POC Glucose 263 H 176 H Imaging Radiology Impressions: ITS Impressions KUB X-Ray 03/11/23 14:33 IMPRESSION: 1. Moderate constipation. 2. Biliary stent in the right upper quadrant with cholecystectomy nissa in the right upper quadrant. Medications Medications Current Medications Al Hydroxide/Mg Hydroxide (Magnesium Hydrox/Alum Hydrox 30 Ml Oral.Susp) 30 ml PO Q6H PRN PRN Reason: Heartburn/Nausea Last Admin: 03/18/23 22:16 Dose: 30 ml Atorvastatin Calcium (Atorvastatin Calcium 20 Mg Tablet) 20 mg PO DAILY [facility] Last Admin: 03/24/23 08:27 Dose: 20 mg Clopidogrel Bisulfate (Clopidogrel Bisulfate 75 Mg Tablet) 75 mg PO DAILY [facility] Last Admin: 03/24/23 08:27 Dose: 75 mg Docusate Sodium (Docusate Sodium 100 Mg Capsule) 100 mg PO BID [facility] Last Admin: 03/24/23 08:27 Dose: 100 mg Escitalopram Oxalate (Escitalopram Oxalate 20 Mg Tablet) 20 mg PO DAILY [facility] Last Admin: 03/24/23 08:27 Dose: 20 mg Furosemide (Furosemide 20 Mg Tablet) 20 mg PO DAILY [facility]; Protocol Last Admin: 03/24/23 08:27 Dose: 20 mg Gabapentin (Gabapentin 100 Mg Capsule) 200 mg PO TID [facility] Last Admin: 03/24/23 08:27 Dose: 200 mg Hydroxyzine HCl (Hydroxyzine Hcl 25 Mg Tablet) 25 mg PO Q6H PRN PRN Reason: Anxiety Last Admin: 03/24/23 08:27 Dose: 25 mg Ibuprofen (Ibuprofen 400 Mg Tablet) 400 mg PO Q4H PRN PRN Reason: Pain, Moderate(Pain Scale 4-6) Last Admin: 03/24/23 08:28 Dose: 400 mg Insulin Human Lispro (Insulin Lispro 100 Unit/Ml 3 Ml Vial) 0 unit SUBCUT QIDWMHS [facility]; Protocol Last Admin: 03/24/23 08:26 Dose: 2 unit Lactulose (Lactulose 20 Gm/30 Ml Solution) 20 gm PO TID [facility] Last Admin: 03/24/23 08:26 Dose: 20 gm Levothyroxine Sodium (Levothyroxine Sodium 25 Mcg Tablet) 25 mcg PO DAILY@0600 [facility] Last Admin: 03/24/23 06:50 Dose: 25 mcg Lidocaine (Lidocaine 4 % Patch Adh..Patch) 1 patch TRANSDERMA DAILY [facility]; Protocol Last Admin: 03/24/23 08:26 Dose: 1 patch Magnesium Hydroxide (Milk Of Magnesia 30 Ml Oral.Susp) 30 ml PO DAILY PRN PRN Reason: Constipation Last Admin: 03/20/23 12:19 Dose: 30 ml Midodrine (Midodrine Hcl 10 Mg Tablet) 10 mg PO TID [facility] Last Admin: 03/24/23 08:38 Dose: Not Given Olanzapine (Olanzapine 5 Mg Tablet) 5 mg PO DAILY [facility] Last Admin: 03/24/23 08:27 Dose: 5 mg Omeprazole (Omeprazole 20 Mg Capsule.Dr) 20 mg PO BID@0630,1630 [facility] Last Admin: 03/24/23 06:50 Dose: 20 mg Polyethylene Glycol (Polyethylene Glycol 3350 17 Gm Powd.Pack) 17 gm PO BID [facility] Last Admin: 03/24/23 08:26 Dose: 17 gm Potassium Chloride (Potassium Chloride Packet 20 Meq Packet) 20 meq PO DAILY [facility] Last Admin: 03/24/23 08:26 Dose: 20 meq Senna (Sennosides 8.6 Mg Tablet) 8.6 mg PO BEDTIME [facility] Last Admin: 03/23/23 20:51 Dose: 8.6 mg Spironolactone (Spironolactone 25 Mg Tablet) 50 mg PO DAILY [facility]; Protocol Last Admin: 03/24/23 08:27 Dose: 50 mg Tiotropium [place] (Tiotropium [place] 2.5 Mcg Inhaler) 2 puff INHALE RDAILY [facility] Last Admin: 03/24/23 08:35 Dose: 2 puff Trazodone HCl (Trazodone Hcl 100 Mg Tablet) 100 mg PO BEDTIME PRN PRN Reason: Insomnia Last Admin: 03/23/23 22:54 Dose: 100 mg Allergies Allergies Allergy/AdvReac Type Severity Reaction Status Date / Time aspirin Allergy Unknown Verified 03/13/23 18:25 bee pollen [bee stings] Allergy Unknown Verified 03/13/23 18:25 Penicillins Allergy Unknown Verified 03/13/23 18:25 Assessment & Plan Assessment & Plan (1) Mood disorder: Status: Acute Code(s): F39 - Unspecified mood [affective] disorder Plan The patient is an elderly [place] female with no prior psychiatric history admitted for suicidality in the context of psychosocial stressors. The patient presents depressive symptoms elicited by depressed mood, anhedonia, lack of energy, feelings of hopelessness and suicidal ideation. But also she presented with racing thoughts, irritability, inability to concentrate and impulsivity. She is a very poor historian so we will try to gather more information. Plan 1. Gather collateral information will try to contact her daughter and get more information. 2. Continue with her regular med antidepressants. 3. The patient agreed to try Zyprexa 5 mg p.o. q.h.s. to target racing thoughts and paranoia. 4. Continue with medical workout. 5. 15 minutes checks at this moment. 6. Increase PRN Trazodone up to 100 mg po qhs PRN 7. Start Lamictal 25 mg p.o. daily to target depression and mood lability. 8. Increase Miralax bid due to constipation 9. Waiting for placement to assisted living facility. Reason for continued inpatient stay Substantial Risk for: inability to function, rapid decompensation and med/psych decompensation Time Spent With Patient Time: Total time managing care of this patient today __20__ minutes.
--- NOTE | 2023-03-24 10:29 | PC.NURSE ---
Lourdes reported continued OLIVER, increased pain to left shoulder, and nightmares the past two nights that she reports occur occasionally. O2 sats 99% and respirations are free and easy. No OLIVER observed by this abstract writer. MD Anderson notified of OLIVER, increased left shoulder pain, and nightmares. Lourdes also informed this abstract writer that she had 4 BMs today and she is supposed to have 2-3 BMS/day. Notified MD Anderson, ? titrate bowel meds?
[2023-03-24 11:08] LABS: Glucose, Whole Blood 212 mg/dL (60-115)
[2023-03-24 13:00] VITALS: BP 129/55; PULSE 91; RESP 18; O2SAT 99
--- NOTE | 2023-03-24 13:25 | PC.NURSE ---
Lourdes declined lunch and held 4 units insulin; POC 212. Dr. Anderson notified.
--- NOTE | 2023-03-24 13:29 | PC.NURSE ---
Lourdes continues to report OLIVER and that her feet are increasingly swollen. She does not appear in any distress when ambulating and respirations free and easy. VS at 1300 91, 99%, 20, 129/55. Faint crackles to right middle lobe auscultated. MD Anderson notified and hospitalist consult placed.
--- NOTE | 2023-03-24 13:36 | PC.NURSE ---
CECY Whaley notified of routine hospitalist consult placed.
--- NOTE | 2023-03-24 13:53 | PC.NURSE ---
Ok per Dr. Anderson to hold 1500 and 2100 Lactulose due to 4 reported BMs today.
--- NOTE | 2023-03-24 13:54 | P.EN_ITS ---
Event Note Date of Service: 03/24/23 Event Note: Hospitalist Medicine consult placed as patient has been experiencing dyspnea on exertion this weekend, reported increase in leg swelling per RN. Patient cares history of Congestive heart failure As well as COPD ASSESSMENT I do not see data chest x-ray or recent BMP/ BNP has been performed since hospital arrival. Upon speaking with patient, she informs this provider that she normally takes 40 of Lasix b.i.d., however I am unable to confirm this at this time. Currently patient is prescribed 20 mg Lasix daily. PHYSICAL CXAM: General: Appears stated age, lying on her left side in bed,in no acute distress, answers questions accurately and appropriately. Skin: Warm and well perfused, no obvious bruises or open wounds noted Respiratory: lungs sounds are diminished however there are no crackles or wh eezing noted throughout Cardiac: Regular rhythm, no rubs, gallops, murmurs or clicks. No JVD/carotid bruits. Abdomen: Soft, rounded, non-distended, bowel sounds noted throughout Extremities: 1+ nonpitting edema noted to bilateral lower extremities with tenderness noted on exam. Neuro: Alert and oriented x3 Psych: Mood appropriate, no agitation /restlessness noted. PLAN: Obtain chest xray, BNP,BMP Will review chest x-ray and lab results once available, patient will likely benefit from an increase in her Lasix RESULTS: - Chest x-ray revealed cardiomegaly with moderate pulmonary vascular congestion and small right pleural effusion with underlying atelectasis. - Will give patient an additional 40 of p.o. Lasix once and increase patient's 20 p.o. Lasix daily to 40 daily. Patient should be using incentive spirometry. Time Spent With Patient Time: Total time managing care of this patient today ____ minutes.
[2023-03-24 15:00] LABS: Anion Gap 11 (12-20); Blood Urea Nitrogen 15 mg/dL (9-16); Calcium 8.6 mg/dL (8.4-10.2); Carbon Dioxide 23 mmol/L (22-29); Chloride 113 mmol/L (96-108); Creatinine Clr Calc Pharmacy 53.8; Estimated Glomerular Filt Rate > 60; Glucose Fasting 170 mg/dL (60-99); Potassium 4.7 mmol/L (3.3-5.1); Sodium 142 mmol/L (135-145)
[2023-03-24 15:08] LABS: B Type Natriuretic Peptide 225 pg/mL (<100)
[2023-03-24 15:26] VITALS: BP 131/60; PULSE 93; RESP 18; O2SAT 99
[2023-03-24 16:12] LABS: Glucose, Whole Blood 182 mg/dL (60-115)
[2023-03-24] MEDS: Furosemide 40 MG TABLET PO (17:07)
[2023-03-24 17:10] VITALS: BP 127/58; PULSE 94; RESP 18; TEMP 36.7; O2SAT 99
[2023-03-24 19:32] VITALS: BP 131/52; PULSE 88; RESP 18; TEMP 36.7; O2SAT 99
[2023-03-24] MEDS: traZODone HCL 100 MG TABLET PO (20:13)
[2023-03-24 20:43] LABS: Glucose, Whole Blood 240 mg/dL (60-115)
[2023-03-25] MEDS: Ibuprofen 400 MG TABLET PO ×3 (00:18→23:46)
[2023-03-25] MEDS: Omeprazole 20 MG CAPSULE.DR PO ×2 (06:52→16:25)
[2023-03-25] MEDS: Levothyroxine Sodium 25 MCG TABLET PO (06:52)
[2023-03-25 07:55] LABS: Glucose, Whole Blood 177 mg/dL (60-115)
[2023-03-25 08:15] VITALS: BP 125/54; PULSE 94; RESP 18; TEMP 36.8; O2SAT 100
[2023-03-25] MEDS: Lactulose 20 GM/30 ML SOLUTION PO ×2 (08:40→14:32)
[2023-03-25] MEDS: Insulin Lispro 100 UNIT/ML 3 ML VIAL SUBCUT ×3 (08:40→16:26)
[2023-03-25] MEDS: Potassium Chloride Packet 20 MEQ PACKET PO (08:42)
[2023-03-25] MEDS: Gabapentin 100 MG CAPSULE 200 MG PO ×3 (08:42→20:30)
[2023-03-25] MEDS: Atorvastatin Calcium 20 MG TABLET PO (08:43)
[2023-03-25] MEDS: Docusate Sodium 100 MG CAPSULE PO (08:43)
[2023-03-25] MEDS: OLANZapine 5 MG TABLET PO (08:43)
[2023-03-25] MEDS: Escitalopram Oxalate 20 MG TABLET PO (08:43)
[2023-03-25] MEDS: Spironolactone 25 MG TABLET 50 MG PO (08:44)
[2023-03-25] MEDS: Clopidogrel Bisulfate 75 MG TABLET PO (08:44)
[2023-03-25] MEDS: Lidocaine 4 % Patch ADH..PATCH 1 PATCH TRANSDERMA (08:45)
[2023-03-25] MEDS: Furosemide 40 MG TABLET PO (08:45)
[2023-03-25] MEDS: polyethylene glycoL 3350 17 GM POWD.PACK PO (08:46)
[2023-03-25 11:34] LABS: Glucose, Whole Blood 170 mg/dL (60-115)
--- NOTE | 2023-03-25 12:54 | HO.PSYCHPN ---
Subjective Subjective Date of Service: 03/25/23 Reason For Visit: MDD F32.1 Subjective Notes: Conditional Voluntary Interim History: The nursing staff reported that the edema has improved last . The social worker assistant reported that she will be discharged to the assisted living facility next Saturday. On interview the patient denies new symptoms pleasant cooperative and cheerful. Mental Status Exam Mental Status Exam Patient Appearance: Well Grooomed and Appropriate Patient Orientation: Person and Situation Level of Consciousness: Awake and Appropriate Patient Behavior: Appropriate and Cooperative Mood Description: Calm Affect Description: Constricted Patient Cognition Impaired: Yes Ability to Follow Directions: Good Speech Pattern: Clear Hallucinations: None Delusions: Not Present Thought Process: Distracted and Slowed Thinking Thought Content: positive for [place] and positive for Circumstantial Judgement: Fair Diagnostics Vital Signs (24Hr): Vital Signs - 24 hr 03/24/23 13:00 03/24/23 15:26 03/24/23 17:10 Temperature 98.1 F Pulse Rate 91 93 94 Respiratory Rate 18 18 18 Blood Pressure 129/55 L 131/60 127/58 L Pulse Oximetry 99 99 99 Oxygen Delivery Method Room Air Room Air Room Air 03/24/23 19:32 03/25/23 08:15 Temperature 98.0 F 98.2 F Pulse Rate 88 94 Respiratory Rate 18 18 Blood Pressure 131/52 L 125/54 L Pulse Oximetry 99 100 Oxygen Delivery Method Room Air Room Air BMI result Body Mass Index 33.7 Labs 03/24/23 14:35 Labs: Laboratory Results - last 48 hr 03/23/23 03/23/23 03/24/23 16:29 19:42 06:52 Sodium Potassium Chloride Carbon Dioxide Anion Gap BUN Creatinine Estim Creat Clear Calc Estimated GFR POC Glucose 210 H 263 H 176 H Fasting Glucose Calcium B-Natriuretic Peptide 03/24/23 03/24/23 03/24/23 11:03 14:35 14:35 Sodium 142 Potassium 4.7 Chloride 113 H Carbon Dioxide 23 Anion Gap 11 L BUN 15 Creatinine 0.85 Estim Creat Clear Calc 53.8 Estimated GFR > 60 POC Glucose 212 H Fasting Glucose 170 H Calcium 8.6 B-Natriuretic Peptide 225 H 03/24/23 03/24/23 03/25/23 16:05 20:15 07:45 Sodium Potassium Chloride Carbon Dioxide Anion Gap BUN Creatinine Estim Creat Clear Calc Estimated GFR POC Glucose 182 H 240 H 177 H Fasting Glucose Calcium B-Natriuretic Peptide 03/25/23 11:22 Sodium Potassium Chloride Carbon Dioxide Anion Gap BUN Creatinine Estim Creat Clear Calc Estimated GFR POC Glucose 170 H Fasting Glucose Calcium B-Natriuretic Peptide Imaging Radiology Impressions: ITS Impressions KUB X-Ray 03/11/23 14:33 IMPRESSION: 1. Moderate constipation. 2. Biliary stent in the right upper quadrant with cholecystectomy nissa in the right upper quadrant. Chest X-Ray 03/24/23 15:22 IMPRESSION: 1. Cardiomegaly with moderate pulmonary vascular congestion. 2. Small right pleural effusion with underlying atelectasis Medications Medications Current Medications Al Hydroxide/Mg Hydroxide (Magnesium Hydrox/Alum Hydrox 30 Ml Oral.Susp) 30 ml PO Q6H PRN PRN Reason: Heartburn/Nausea Last Admin: 03/18/23 22:16 Dose: 30 ml Atorvastatin Calcium (Atorvastatin Calcium 20 Mg Tablet) 20 mg PO DAILY [facility] Last Admin: 03/25/23 08:43 Dose: 20 mg Clopidogrel Bisulfate (Clopidogrel Bisulfate 75 Mg Tablet) 75 mg PO DAILY [facility] Last Admin: 03/25/23 08:44 Dose: 75 mg Docusate Sodium (Docusate Sodium 100 Mg Capsule) 100 mg PO BID [facility] Last Admin: 03/25/23 08:43 Dose: 100 mg Escitalopram Oxalate (Escitalopram Oxalate 20 Mg Tablet) 20 mg PO DAILY [facility] Last Admin: 03/25/23 08:43 Dose: 20 mg Furosemide (Furosemide 40 Mg Tablet) 40 mg PO DAILY [facility]; Protocol Last Admin: 03/25/23 08:45 Dose: 40 mg Gabapentin (Gabapentin 100 Mg Capsule) 200 mg PO TID [facility] Last Admin: 03/25/23 08:42 Dose: 200 mg Hydroxyzine HCl (Hydroxyzine Hcl 25 Mg Tablet) 25 mg PO Q6H PRN PRN Reason: Anxiety Last Admin: 03/24/23 20:12 Dose: 25 mg Ibuprofen (Ibuprofen 400 Mg Tablet) 400 mg PO Q4H PRN PRN Reason: Pain, Moderate(Pain Scale 4-6) Last Admin: 03/25/23 00:18 Dose: 400 mg Insulin Human Lispro (Insulin Lispro 100 Unit/Ml 3 Ml Vial) 0 unit SUBCUT QIDWMHS [facility]; Protocol Last Admin: 03/25/23 11:48 Dose: 2 unit Lactulose (Lactulose 20 Gm/30 Ml Solution) 20 gm PO TID [facility] Last Admin: 03/25/23 08:40 Dose: 20 gm Levothyroxine Sodium (Levothyroxine Sodium 25 Mcg Tablet) 25 mcg PO DAILY@0600 [facility] Last Admin: 03/25/23 06:52 Dose: 25 mcg Lidocaine (Lidocaine 4 % Patch Adh..Patch) 1 patch TRANSDERMA DAILY [facility]; Protocol Last Admin: 03/25/23 08:45 Dose: 1 patch Magnesium Hydroxide (Milk Of Magnesia 30 Ml Oral.Susp) 30 ml PO DAILY PRN PRN Reason: Constipation Last Admin: 03/20/23 12:19 Dose: 30 ml Midodrine (Midodrine Hcl 10 Mg Tablet) 10 mg PO TID [facility] Last Admin: 03/25/23 09:02 Dose: Not Given Olanzapine (Olanzapine 5 Mg Tablet) 5 mg PO DAILY [facility] Last Admin: 03/25/23 08:43 Dose: 5 mg Omeprazole (Omeprazole 20 Mg Capsule.Dr) 20 mg PO BID@0630,1630 [facility] Last Admin: 03/25/23 06:52 Dose: 20 mg Polyethylene Glycol (Polyethylene Glycol 3350 17 Gm Powd.Pack) 17 gm PO BID [facility] Last Admin: 03/25/23 08:46 Dose: 17 gm Potassium Chloride (Potassium Chloride Packet 20 Meq Packet) 20 meq PO DAILY [facility] Last Admin: 03/25/23 08:42 Dose: 20 meq Senna (Sennosides 8.6 Mg Tablet) 8.6 mg PO BEDTIME [facility] Last Admin: 03/24/23 20:20 Dose: Not Given Spironolactone (Spironolactone 25 Mg Tablet) 50 mg PO DAILY [facility]; Protocol Last Admin: 03/25/23 08:44 Dose: 50 mg Tiotropium [place] (Tiotropium [place] 2.5 Mcg Inhaler) 2 puff INHALE RDAILY [facility] Last Admin: 03/25/23 08:39 Dose: 2 puff Trazodone HCl (Trazodone Hcl 100 Mg Tablet) 100 mg PO BEDTIME PRN PRN Reason: Insomnia Last Admin: 03/24/23 20:13 Dose: 100 mg Allergies Allergies Allergy/AdvReac Type Severity Reaction Status Date / Time aspirin Allergy Unknown Verified 03/13/23 18:25 bee pollen [bee stings] Allergy Unknown Verified 03/13/23 18:25 Penicillins Allergy Unknown Verified 03/13/23 18:25 Assessment & Plan Assessment & Plan (1) Mood disorder: Status: Acute Code(s): F39 - Unspecified mood [affective] disorder Plan The patient is an elderly [place] female with no prior psychiatric history admitted for suicidality in the context of psychosocial stressors. The patient presents depressive symptoms elicited by depressed mood, anhedonia, lack of energy, feelings of hopelessness and suicidal ideation. But also she presented with racing thoughts, irritability, inability to concentrate and impulsivity. She is a very poor historian so we will try to gather more information. Plan 1. Gather collateral information will try to contact her daughter and get more information. 2. Continue with her regular med antidepressants. 3. The patient agreed to try Zyprexa 5 mg p.o. q.h.s. to target racing thoughts and paranoia. 4. Continue with medical workout. 5. 15 minutes checks at this moment. 6. Increase PRN Trazodone up to 100 mg po qhs PRN 7. Start Lamictal 25 mg p.o. daily to target depression and mood lability. 8. Increase Miralax bid due to constipation 9. Waiting for placement to assisted living facility. Reason for continued inpatient stay Substantial Risk for: inability to function, rapid decompensation and med/psych decompensation Time Spent With Patient Time: Total time managing care of this patient today __20__ minutes.
[2023-03-25 14:25] VITALS: BP 106/46; PULSE 94
[2023-03-25] MEDS: Midodrine HCl 10 MG TABLET PO ×2 (14:33→20:31)
[2023-03-25 16:18] LABS: Glucose, Whole Blood 201 mg/dL (60-115)
[2023-03-25 18:00] VITALS: BP 127/60; PULSE 89; RESP 17; TEMP 36.6; O2SAT 99
[2023-03-25] MEDS: Sennosides 8.6 MG TABLET PO (20:30)
[2023-03-25] MEDS: traZODone HCL 100 MG TABLET PO ×2 (20:30→23:47)
[2023-03-25 21:22] LABS: Glucose, Whole Blood 137 mg/dL (60-115)
[2023-03-25] MEDS: hydrOXYzine HCL 25 MG TABLET PO (22:28)
[2023-03-25] MEDS: LORazepam 0.5 MG TABLET PO (22:59)
--- NOTE | 2023-03-25 23:12 | PC.NURSE ---
communicated with dr mireya archer the following 1.despite atarax administration pt anxious 2. pt is speaking in full sentences 3. she has c/o of sob 4. sa02 97-98% 5. pt has c/o of a cough although the cough has not been observed 6. resp effort is regular unlabored plan 1. ativan 0.5 mg po now 2. discuss pt in am rounds copd exacerbation vs heart failure.
[2023-03-26 03:37] VITALS: BP 112/53; PULSE 94; RESP 22; TEMP 36.6; O2SAT 94
--- NOTE | 2023-03-26 04:12 | PC.NURSE ---
dr mireya archer contacted notified 1. pt wokeup with coughing jag/anxious and c/o of sob 2. vital b/p 112/53 t 97.9 p 94 bpm rr 22 sa02 94% ra 3. slightly tachypneic no obvious air hunger 4. breath sounds dimnished throughout right lung 5. pt on home updraft tx but unsure of med and dose 6. NITZA audible 7. pt currently receiving lasix 40 mg po daily PLAN- 1. hob placed in high fowlers position 2. incentive spirometer x 10 3. ativan 0.5 mg po-4. followup with am rounds 1. ? radiological studues 2. labs bnp etc... 3. diurese or not 4. obtain prn updraft tx 5. may need further anxiolytic
[2023-03-26] MEDS: LORazepam 0.5 MG TABLET PO (04:14)
[2023-03-26] MEDS: Omeprazole 20 MG CAPSULE.DR PO (06:27)
[2023-03-26] MEDS: Levothyroxine Sodium 25 MCG TABLET PO (06:27)
[2023-03-26 07:47] LABS: Glucose, Whole Blood 156 mg/dL (60-115)
[2023-03-26 08:10] VITALS: BP 124/63; PULSE 96; RESP 18; TEMP 37; O2SAT 96
[2023-03-26] MEDS: Lactulose 20 GM/30 ML SOLUTION PO (08:53)
[2023-03-26] MEDS: polyethylene glycoL 3350 17 GM POWD.PACK PO (08:53)
[2023-03-26] MEDS: Potassium Chloride Packet 20 MEQ PACKET PO (08:53)
[2023-03-26] MEDS: Lidocaine 4 % Patch ADH..PATCH 1 PATCH TRANSDERMA (08:54)
[2023-03-26] MEDS: OLANZapine 5 MG TABLET PO (08:57)
[2023-03-26] MEDS: Spironolactone 25 MG TABLET 50 MG PO (08:57)
[2023-03-26] MEDS: Gabapentin 100 MG CAPSULE 200 MG PO (08:57)
[2023-03-26] MEDS: Atorvastatin Calcium 20 MG TABLET PO (08:58)
[2023-03-26] MEDS: Docusate Sodium 100 MG CAPSULE PO (08:58)
[2023-03-26] MEDS: Furosemide 40 MG TABLET PO (08:58)
[2023-03-26] MEDS: Escitalopram Oxalate 20 MG TABLET PO (08:59)
[2023-03-26] MEDS: Clopidogrel Bisulfate 75 MG TABLET PO (08:59)
[2023-03-26] MEDS: Insulin Lispro 100 UNIT/ML 3 ML VIAL SUBCUT ×2 (09:01→11:43)
[2023-03-26 11:27] LABS: Glucose, Whole Blood 248 mg/dL (60-115)
--- NOTE | 2023-03-26 12:23 | P.PNPSI_ITS ---
Subjective Subjective Date of Service: 03/26/23 Reason For Visit: MDD F32.1 Subjective Notes: Conditional Voluntary Interim History: The nursing staff reported the patient has been pleasant and cooperative no changes in her mental status. Last night he slept poorly she had some shortness of breath but her saturation of oxygen is over 94. She receive Ativan x2. She is stating that she is not feeling well medically she went to bed after breakfast. The social science teacher called her daughter and apparently she is going to assisted living facility most likely on . On interview the patient denies new symptoms pleasant and cooperative, she feels tired. Now on an increased dose of the diuretic. Today blood work came up with a very low H&H, the medical team is following her. Mental Status Exam Mental Status Exam Patient Appearance: Well Grooomed and Appropriate Patient Orientation: Person and Situation Level of Consciousness: Awake and Appropriate Patient Behavior: Guarded and Passive Mood Description: Calm Affect Description: Constricted Patient Cognition Impaired: Yes Ability to Follow Directions: Good Speech Pattern: Clear Hallucinations: None Delusions: Not Present Thought Process: Linear Thought Content: positive for Circumstantial Judgement: Fair Diagnostics Vital Signs (24Hr): Vital Signs - 24 hr 03/25/23 14:25 03/25/23 18:00 03/26/23 03:37 Temperature 97.9 F 97.9 F Pulse Rate 94 89 94 Respiratory Rate 17 22 H Blood Pressure 106/46 L 127/60 112/53 L Pulse Oximetry 99 94 Oxygen Delivery Method Room Air Room Air 03/26/23 08:10 Temperature 98.6 F Pulse Rate 96 Respiratory Rate 18 Blood Pressure 124/63 Pulse Oximetry 96 Oxygen Delivery Method Room Air BMI result Body Mass Index 33.7 Labs 03/24/23 14:35 Labs: Laboratory Results - last 48 hr 03/24/23 03/24/23 03/24/23 14:35 14:35 16:05 Sodium 142 Potassium 4.7 Chloride 113 H Carbon Dioxide 23 Anion Gap 11 L BUN 15 Creatinine 0.85 Estim Creat Clear Calc 53.8 Estimated GFR > 60 POC Glucose 182 H Fasting Glucose 170 H Calcium 8.6 B-Natriuretic Peptide 225 H 03/24/23 03/25/23 03/25/23 20:15 07:45 11:22 Sodium Potassium Chloride Carbon Dioxide Anion Gap BUN Creatinine Estim Creat Clear Calc Estimated GFR POC Glucose 240 H 177 H 170 H Fasting Glucose Calcium B-Natriuretic Peptide 03/25/23 03/25/23 03/26/23 16:08 20:37 07:41 Sodium Potassium Chloride Carbon Dioxide Anion Gap BUN Creatinine Estim Creat Clear Calc Estimated GFR POC Glucose 201 H 137 H 156 H Fasting Glucose Calcium B-Natriuretic Peptide 03/26/23 11:22 Sodium Potassium Chloride Carbon Dioxide Anion Gap BUN Creatinine Estim Creat Clear Calc Estimated GFR POC Glucose 248 H Fasting Glucose Calcium B-Natriuretic Peptide Imaging Radiology Impressions: ITS Impressions KUB X-Ray 03/11/23 14:33 IMPRESSION: 1. Moderate constipation. 2. Biliary stent in the right upper quadrant with cholecystectomy nissa in the right upper quadrant. Chest X-Ray 03/24/23 15:22 IMPRESSION: 1. Cardiomegaly with moderate pulmonary vascular congestion. 2. Small right pleural effusion with underlying atelectasis Medications Medications Current Medications Al Hydroxide/Mg Hydroxide (Magnesium Hydrox/Alum Hydrox 30 Ml Oral.Susp) 30 ml PO Q6H PRN PRN Reason: Heartburn/Nausea Last Admin: 03/18/23 22:16 Dose: 30 ml Albuterol Sulfate (Albuterol Sulfate (0.083%) 2.5 Mg/3 Ml Vial.Neb) 2.5 mg INHALE Q4H PRN PRN Reason: Shortness of Breath/Wheezing Atorvastatin Calcium (Atorvastatin Calcium 20 Mg Tablet) 20 mg PO DAILY [facility] Last Admin: 03/26/23 08:58 Dose: 20 mg Clopidogrel Bisulfate (Clopidogrel Bisulfate 75 Mg Tablet) 75 mg PO DAILY [facility] Last Admin: 03/26/23 08:59 Dose: 75 mg Docusate Sodium (Docusate Sodium 100 Mg Capsule) 100 mg PO BID [facility] Last Admin: 03/26/23 08:58 Dose: 100 mg Escitalopram Oxalate (Escitalopram Oxalate 20 Mg Tablet) 20 mg PO DAILY [facility] Last Admin: 03/26/23 08:59 Dose: 20 mg Furosemide (Furosemide 40 Mg Tablet) 40 mg PO DAILY [facility]; Protocol Last Admin: 03/26/23 08:58 Dose: 40 mg Gabapentin (Gabapentin 100 Mg Capsule) 200 mg PO TID [facility] Last Admin: 03/26/23 08:57 Dose: 200 mg Guaifenesin (Guaifenesin 200 Mg/10 Ml 10 Ml Liquid) 10 ml PO Q4H PRN PRN Reason: Cough Hydroxyzine HCl (Hydroxyzine Hcl 25 Mg Tablet) 25 mg PO Q6H PRN PRN Reason: Anxiety Last Admin: 03/25/23 22:28 Dose: 25 mg Ibuprofen (Ibuprofen 400 Mg Tablet) 400 mg PO Q4H PRN PRN Reason: Pain, Moderate(Pain Scale 4-6) Last Admin: 03/25/23 23:46 Dose: 400 mg Insulin Human Lispro (Insulin Lispro 100 Unit/Ml 3 Ml Vial) 0 unit SUBCUT QIDWMHS [facility]; Protocol Last Admin: 03/26/23 11:43 Dose: 4 unit Lactulose (Lactulose 20 Gm/30 Ml Solution) 20 gm PO TID [facility] Last Admin: 03/26/23 08:53 Dose: 20 gm Levothyroxine Sodium (Levothyroxine Sodium 25 Mcg Tablet) 25 mcg PO DAILY@0600 [facility] Last Admin: 03/26/23 06:27 Dose: 25 mcg Lidocaine (Lidocaine 4 % Patch Adh..Patch) 1 patch TRANSDERMA DAILY [facility]; Protocol Last Admin: 03/26/23 08:54 Dose: 1 patch Magnesium Hydroxide (Milk Of Magnesia 30 Ml Oral.Susp) 30 ml PO DAILY PRN PRN Reason: Constipation Last Admin: 03/20/23 12:19 Dose: 30 ml Midodrine (Midodrine Hcl 10 Mg Tablet) 10 mg PO TID [facility] Last Admin: 03/26/23 09:02 Dose: Not Given Olanzapine (Olanzapine 5 Mg Tablet) 5 mg PO DAILY [facility] Last Admin: 03/26/23 08:57 Dose: 5 mg Omeprazole (Omeprazole 20 Mg Capsule.Dr) 20 mg PO BID@0630,1630 [facility] Last Admin: 03/26/23 06:27 Dose: 20 mg Polyethylene Glycol (Polyethylene Glycol 3350 17 Gm Powd.Pack) 17 gm PO BID [facility] Last Admin: 03/26/23 08:53 Dose: 17 gm Potassium Chloride (Potassium Chloride Packet 20 Meq Packet) 20 meq PO DAILY [facility] Last Admin: 03/26/23 08:53 Dose: 20 meq Senna (Sennosides 8.6 Mg Tablet) 8.6 mg PO BEDTIME [facility] Last Admin: 03/25/23 20:30 Dose: 8.6 mg Spironolactone (Spironolactone 25 Mg Tablet) 50 mg PO DAILY [facility]; Protocol Last Admin: 03/26/23 08:57 Dose: 50 mg Tiotropium [place] (Tiotropium [place] 2.5 Mcg Inhaler) 2 puff INHALE RDAILY [facility] Last Admin: 03/26/23 08:52 Dose: 2 puff Trazodone HCl (Trazodone Hcl 100 Mg Tablet) 100 mg PO BEDTIME PRN PRN Reason: Insomnia Last Admin: 03/25/23 23:47 Dose: 100 mg Allergies Allergies Allergy/AdvReac Type Severity Reaction Status Date / Time aspirin Allergy Unknown Verified 03/13/23 18:25 bee pollen [bee stings] Allergy Unknown Verified 03/13/23 18:25 Penicillins Allergy Unknown Verified 03/13/23 18:25 Assessment & Plan Assessment & Plan (1) Mood disorder: Status: Acute Code(s): F39 - Unspecified mood [affective] disorder Plan The patient is an elderly [place] female with no prior psychiatric history admitted for suicidality in the context of psychosocial stressors. The patient presents depressive symptoms elicited by depressed mood, anhedonia, lack of energy, feelings of hopelessness and suicidal ideation. But also she presented with racing thoughts, irritability, inability to concentrate and impulsivity. She is a very poor historian so we will try to gather more information. Plan 1. Gather collateral information will try to contact her daughter and get more information. 2. Continue with her regular med antidepressants. 3. The patient agreed to try Zyprexa 5 mg p.o. q.h.s. to target racing thoughts and paranoia. 4. Continue with medical workout. 5. 15 minutes checks at this moment. 6. Increase PRN Trazodone up to 100 mg po qhs PRN 7. Start Lamictal 25 mg p.o. daily to target depression and mood lability. 8. Increase Miralax bid due to constipation 9. Waiting for placement to assisted living facility. Reason for continued inpatient stay Substantial Risk for: inability to function, rapid decompensation and med/psych decompensation Time Spent With Patient Time: Total time managing care of this patient today _20___ minutes.
[2023-03-26] MEDS: guaiFENesin 200 MG/10 ML 10 ML LIQUID PO (12:30)
[2023-03-26 13:18] LABS: Basophils Percent Auto 1.1 % (0-2); Eosinophils Absolute Auto 0.1 X10*3/uL (0.0-0.4); Eosinophils Percent Auto 3.4 % (0-4); Lymphocytes Absolute Auto 0.5 X10*3/uL (1.2-4.9); Lymphocytes Percent Auto 29.1 % (20-40); MANUAL DIFF FLAG SCAN; Mean Corpuscular HGB Conc 32.5 g/dl (31.0-35.0); Mean Corpuscular Hemoglobin 29.4 pg (27.0-33.0); Mean Corpuscular Volume 90.4 fL (80.0-98.0); Mean Platelet Volume 11.1 fL (9.4-12.3); Monocytes Absolute Auto 0.3 X10*3/uL (0.1-1.2); Monocytes Percent Auto 14.3 % (2-11); Neutrophils Absolute Auto 0.9 x10*3/uL (2.0-8.3); Neutrophils Percent Auto 52.1 % (45-73); Red Blood Count 1.87 X10*6/uL (4.20-5.50); Red Cell Distribution Width 14.8 % (11.0-16.0); SCAN SMEAR FLAG 1
[2023-03-26 13:23] LABS: Platelet Count 98 X10*3/uL (160-400)
[2023-03-26 13:24] LABS: Hemoglobin 5.5 g/dl (12.0-16.0); White Blood Count 1.8 X10*3/uL (4.8-10.8)
[2023-03-26 13:25] LABS: Hematocrit 16.9 % (37.0-47.0)
[2023-03-26 13:27] VITALS: BP 133/60; PULSE 96; RESP 25; O2SAT 95
[2023-03-26 13:42] LABS: Anion Gap 10 (12-20); B Type Natriuretic Peptide 245 pg/mL (<100); Blood Urea Nitrogen 18 mg/dL (9-16); Calcium 8.4 mg/dL (8.4-10.2); Carbon Dioxide 24 mmol/L (22-29); Chloride 111 mmol/L (96-108); Creatinine Clr Calc Pharmacy 41.1; Estimated Glomerular Filt Rate 48; Glucose Random 213 mg/dL (60-115); Potassium 3.8 mmol/L (3.3-5.1); Sodium 141 mmol/L (135-145)
[2023-03-26 13:43] LABS: SLIDE REVIEW VERIFIED
--- NOTE | 2023-03-26 14:03 | PM.EVENT ---
Event Note Date of Service: 03/26/23 Event Note: Pt seen in follow up. She is reporting fatigue and BLE edema that has improved slightly. Reports some sob but no significant OLIVER. No orthopnea or PND. Lasix recently increased to home dose. Continues on spironolactone. On exam, RLL diminished with expiratory wheezing in the [place], otherwise CTA with good respiratory efforts and no distress. She reports feeling week. CBC, BMP, BNP, Resp panel, resp panel, cxr ordered. Initial results: WBC- 1.8 RBC- 1.87 Hgb- 5.5 Hct- 16.9 MCV- 90.4 Plt- 98 BMP- renal function, lytes baseline. BNP baseline Plan: CXR pending Added albuterol nebs for wheezing. At this time, low suspicion for CHF exaceration. - repeat CBC to ensure accurate results. -Check splenic doppler. Check U/S liver to eval for mass -If CBC accurate, will likely admit to medicine for further work up and transusion -If accurate, consider hematology consult -Add on LDH, haptoglobin, iron studies. Tick panel ordered Time Spent With Patient Time: Total time managing care of this patient today ____ minutes.
[2023-03-26 14:36] LABS: Iron 23 mcg/dL (30-160); Lactate Dehydrogenase 223 U/L (122-220); Percent Iron Saturation 9 % (15-50); Total Iron Binding Capacity 250 mcg/dL (228-428); Unsaturated Iron Binding 227 ug/dL
[2023-03-26 14:57] VITALS: BP 118/57; PULSE 90; RESP 18; TEMP 36.9; O2SAT 95
[2023-03-26 15:12] LABS: Basophils Percent Auto 1.2 % (0-2); Eosinophils Percent Auto 2.4 % (0-4); Lymphocytes Absolute Auto 0.5 X10*3/uL (1.2-4.9); Lymphocytes Percent Auto 26.5 % (20-40); MANUAL DIFF FLAG SCAN; Mean Corpuscular HGB Conc 31.6 g/dl (31.0-35.0); Mean Corpuscular Hemoglobin 28.7 pg (27.0-33.0); Mean Platelet Volume 10.9 fL (9.4-12.3); Monocytes Absolute Auto 0.2 X10*3/uL (0.1-1.2); Monocytes Percent Auto 13.5 % (2-11); Neutrophils Percent Auto 56.4 % (45-73); Red Blood Count 1.88 X10*6/uL (4.20-5.50); Red Cell Distribution Width 15.1 % (11.0-16.0)
[2023-03-26 15:13] LABS: Platelet Count 97 X10*3/uL (160-400); White Blood Count 1.7 X10*3/uL (4.8-10.8)
[2023-03-26 15:16] LABS: Hematocrit 17.1 % (37.0-47.0); Hemoglobin 5.4 g/dl (12.0-16.0)
--- NOTE | 2023-03-26 15:29 | P.DS_ITS ---
DS: Providers Provider Date of Service: 03/26/23 Date of admission: 03/06/23 12:59 Date of discharge: 03/26/23 Primary care physician: Winsome De La Rosa NP Consults: 03/06/23 15:30 Consult to Hospitalist Routine Comment: Consulting Provider: Hospitalist Reason For Exam: Direct admission 03/24/23 10:58 Consult to Hospitalist Routine Comment: Consulting Provider: Hospitalist Reason For Exam: Increased edema, hx of Chronic Liver Failure 03/26/23 10:58 Consult to Hospitalist Routine Comment: Consulting Provider: Hospitalist Reason For Exam: Drop on H+H DS: Diagnosis Discharge Diagnosis (1) Mood disorder: Status: Acute DS: Medications Discharge Medications Home Medications: Home Medications Medication Instructions Recorded Confirmed furosemide 20 mg tablet 20 mg PO DAILY 03/07/23 03/07/23 lorazepam 0.5 mg tablet 0.5 mg PO DAILY PRN Anxiety 03/07/23 03/07/23 Previous Rx's Medication Instructions Recorded clopidogrel 75 mg tablet 75 mg PO DAILY 30 days #30 tabs 03/25/23 docusate sodium 100 mg capsule 100 mg PO BID #60 caps 03/25/23 escitalopram oxalate 20 mg tablet 20 mg PO DAILY 30 days #30 tabs 03/25/23 furosemide 40 mg tablet 40 mg PO DAILY 30 days #30 tabs 03/25/23 gabapentin 100 mg capsule 200 mg PO TID 30 days #180 caps 03/25/23 hydroxyzine HCl 25 mg tablet 25 mg PO Q6H PRN Anxiety 30 days 03/25/23 #60 tabs ibuprofen 400 mg tablet 400 mg PO Q4H PRN Pain, 03/25/23 Moderate(Pain Scale 4-6) 30 days #60 tabs insulin aspart U-100 100 unit/mL 1 sliding scale dose subcut TID 03/25/23 subcutaneous solution (Novolog #10 mL U-100 Insulin aspart) insulin glargine 100 unit/mL (3 34 unit (0.34 mL) subcut DAILY 30 03/25/23 mL) subcutaneous pen (Lantus days #10.2 mL Solostar U-100 Insulin) lactulose 20 gram/30 mL oral 20 g (30 mL) PO TID 30 days #2,700 03/25/23 solution mL levothyroxine 25 mcg tablet 25 mcg PO DAILY 30 days #30 tabs 03/25/23 lidocaine 4 % topical patch 1 patch transdermal DAILY 30 days 03/25/23 (Lidocaine Pain Relief) #30 ea midodrine 10 mg tablet 10 mg PO TID 30 days #90 tabs 03/25/23 olanzapine 5 mg tablet 5 mg PO DAILY 30 days #30 tabs 03/25/23 pantoprazole 40 mg tablet,delayed 40 mg PO BID 30 days #60 tabs 03/25/23 release polyethylene glycol 3350 17 gram 17 g PO BID #60 packets 03/25/23 oral powder packet potassium chloride 20 mEq oral 20 meq PO DAILY 30 days #30 ea 03/25/23 packet rosuvastatin 5 mg tablet 5 mg PO DAILY 30 days #30 tabs 03/25/23 sennosides 8.6 mg tablet (Senna 8.6 mg PO BEDTIME #30 tabs 03/25/23 Lax) spironolactone 50 mg tablet 50 mg PO DAILY 30 days #30 tabs 03/25/23 trazodone 100 mg tablet 100 mg PO BEDTIME PRN Insomnia 30 03/25/23 days #30 tabs trospium 60 mg capsule,extended 60 mg PO 1XD 30 days #30 caps 03/25/23 release 24 hr umeclidinium 62.5 mcg/actuation 1 inh inhalation DAILY #30 ea 03/25/23 blister powder for inhalation (Incruse Ellipta) Mental Status Exam Mental Status Exam Patient Appearance: Well Grooomed and Appropriate Patient Orientation: Person and Situation Level of Consciousness: Awake and Appropriate Patient Behavior: Cooperative Mood Description: Calm Affect Description: Constricted Patient Cognition Impaired: Yes Ability to Follow Directions: Good Speech Pattern: Clear Hallucinations: None Delusions: Not Present Thought Process: Linear Thought Content: positive for Circumstantial Judgement: Fair Data Data Completed and Pending Completed studies during hospitalization [Text1]: 03/19/23 03/19/23 03/20/23 16:07 19:53 07:27 WBC RBC Hgb Hct MCV MCH MCHC RDW Plt Count MPV Immature Gran % (Auto) Neut % (Auto) Lymph % (Auto) [place] % (Auto) Eos % (Auto) Baso % (Auto) Lymph # (Auto) [place] # (Auto) Eos # (Auto) Baso # (Auto) Abs Immat Gran (auto) Absolute Neuts (auto) Absolute Nucleated RBC Nucleated RBC % (auto) Smear Tech's Comments Smear Path Review Haptoglobin Sodium Potassium Chloride Carbon Dioxide Anion Gap BUN Creatinine Estim Creat Clear Calc Estimated GFR POC Glucose 244 H 254 H 145 H Random Glucose Fasting Glucose Calcium Iron TIBC % Saturation Unsat Iron Binding Lactate Dehydrogenase B-Natriuretic Peptide Respiratory Panel Bonner Adenovirus (Rapid PCR) A.phagocytophil DNA PCR Babesia microti DNA PCR B.pert (TEM-PCR) B.parapertussis DNA PCR Borrelia sp DNA (PCR) Borrelia miyamotoi (PCR) C. pneumoniae DNA (PCR) Coronavirus OC43 (PCR) Coronavirus HKU1 (PCR) Coronavirus 229E (PCR) Coronavirus NL63 (PCR) E.chaffeensis DNA (PCR) Human Metapneumovir PCR Influenza A (RT-PCR) Influenza B (RT-PCR) M. pneumoniae (PCR) Parainfluenza 1 (PCR) Parainfluenza 2 (PCR) Parainfluenza 3 (PCR) Parainfluenza 4 (PCR) RSV (PCR) Entero/Rhino (PCR) SARS-CoV-2 RNA (RT-PCR) Tick-borne Disease Ab 03/20/23 03/20/23 03/20/23 11:27 13:24 16:37 WBC RBC Hgb Hct MCV MCH MCHC RDW Plt Count MPV Immature Gran % (Auto) Neut % (Auto) Lymph % (Auto) [place] % (Auto) Eos % (Auto) Baso % (Auto) Lymph # (Auto) [place] # (Auto) Eos # (Auto) Baso # (Auto) Abs Immat Gran (auto) Absolute Neuts (auto) Absolute Nucleated RBC Nucleated RBC % (auto) Smear Tech's Comments Smear Path Review Haptoglobin Sodium Potassium Chloride Carbon Dioxide Anion Gap BUN Creatinine Estim Creat Clear Calc Estimated GFR POC Glucose 355 H* 246 H 239 H Random Glucose Fasting Glucose Calcium Iron TIBC % Saturation Unsat Iron Binding Lactate Dehydrogenase B-Natriuretic Peptide Respiratory Panel Bonner Adenovirus (Rapid PCR) A.phagocytophil DNA PCR Babesia microti DNA PCR B.pert (TEM-PCR) B.parapertussis DNA PCR Borrelia sp DNA (PCR) Borrelia miyamotoi (PCR) C. pneumoniae DNA (PCR) Coronavirus OC43 (PCR) Coronavirus HKU1 (PCR) Coronavirus 229E (PCR) Coronavirus NL63 (PCR) E.chaffeensis DNA (PCR) Human Metapneumovir PCR Influenza A (RT-PCR) Influenza B (RT-PCR) M. pneumoniae (PCR) Parainfluenza 1 (PCR) Parainfluenza 2 (PCR) Parainfluenza 3 (PCR) Parainfluenza 4 (PCR) RSV (PCR) Entero/Rhino (PCR) SARS-CoV-2 RNA (RT-PCR) Tick-borne Disease Ab 03/20/23 03/21/23 03/21/23 19:58 07:42 11:32 WBC RBC Hgb Hct MCV MCH MCHC RDW Plt Count MPV Immature Gran % (Auto) Neut % (Auto) Lymph % (Auto) [place] % (Auto) Eos % (Auto) Baso % (Auto) Lymph # (Auto) [place] # (Auto) Eos # (Auto) Baso # (Auto) Abs Immat Gran (auto) Absolute Neuts (auto) Absolute Nucleated RBC Nucleated RBC % (auto) Smear Tech's Comments Smear Path Review Haptoglobin Sodium Potassium Chloride Carbon Dioxide Anion Gap BUN Creatinine Estim Creat Clear Calc Estimated GFR POC Glucose 220 H 206 H 287 H Random Glucose Fasting Glucose Calcium Iron TIBC % Saturation Unsat Iron Binding Lactate Dehydrogenase B-Natriuretic Peptide Respiratory Panel Bonner Adenovirus (Rapid PCR) A.phagocytophil DNA PCR Babesia microti DNA PCR B.pert (TEM-PCR) B.parapertussis DNA PCR Borrelia sp DNA (PCR) Borrelia miyamotoi (PCR) C. pneumoniae DNA (PCR) Coronavirus OC43 (PCR) Coronavirus HKU1 (PCR) Coronavirus 229E (PCR) Coronavirus NL63 (PCR) E.chaffeensis DNA (PCR) Human Metapneumovir PCR Influenza A (RT-PCR) Influenza B (RT-PCR) M. pneumoniae (PCR) Parainfluenza 1 (PCR) Parainfluenza 2 (PCR) Parainfluenza 3 (PCR) Parainfluenza 4 (PCR) RSV (PCR) Entero/Rhino (PCR) SARS-CoV-2 RNA (RT-PCR) Tick-borne Disease Ab 03/21/23 03/21/23 03/22/23 16:27 20:21 07:51 WBC RBC Hgb Hct MCV MCH MCHC RDW Plt Count MPV Immature Gran % (Auto) Neut % (Auto) Lymph % (Auto) [place] % (Auto) Eos % (Auto) Baso % (Auto) Lymph # (Auto) [place] # (Auto) Eos # (Auto) Baso # (Auto) Abs Immat Gran (auto) Absolute Neuts (auto) Absolute Nucleated RBC Nucleated RBC % (auto) Smear Tech's Comments Smear Path Review Haptoglobin Sodium Potassium Chloride Carbon Dioxide Anion Gap BUN Creatinine Estim Creat Clear Calc Estimated GFR POC Glucose 264 H 263 H 201 H Random Glucose Fasting Glucose Calcium Iron TIBC % Saturation Unsat Iron Binding Lactate Dehydrogenase B-Natriuretic Peptide Respiratory Panel Bonner Adenovirus (Rapid PCR) A.phagocytophil DNA PCR Babesia microti DNA PCR B.pert (TEM-PCR) B.parapertussis DNA PCR Borrelia sp DNA (PCR) Borrelia miyamotoi (PCR) C. pneumoniae DNA (PCR) Coronavirus OC43 (PCR) Coronavirus HKU1 (PCR) Coronavirus 229E (PCR) Coronavirus NL63 (PCR) E.chaffeensis DNA (PCR) Human Metapneumovir PCR Influenza A (RT-PCR) Influenza B (RT-PCR) M. pneumoniae (PCR) Parainfluenza 1 (PCR) Parainfluenza 2 (PCR) Parainfluenza 3 (PCR) Parainfluenza 4 (PCR) RSV (PCR) Entero/Rhino (PCR) SARS-CoV-2 RNA (RT-PCR) Tick-borne Disease Ab 03/22/23 03/22/23 03/22/23 11:42 16:38 19:56 WBC RBC Hgb Hct MCV MCH MCHC RDW Plt Count MPV Immature Gran % (Auto) Neut % (Auto) Lymph % (Auto) [place] % (Auto) Eos % (Auto) Baso % (Auto) Lymph # (Auto) [place] # (Auto) Eos # (Auto) Baso # (Auto) Abs Immat Gran (auto) Absolute Neuts (auto) Absolute Nucleated RBC Nucleated RBC % (auto) Smear Tech's Comments Smear Path Review Haptoglobin Sodium Potassium Chloride Carbon Dioxide Anion Gap BUN Creatinine Estim Creat Clear Calc Estimated GFR POC Glucose 221 H 244 H 223 H Random Glucose Fasting Glucose Calcium Iron TIBC % Saturation Unsat Iron Binding Lactate Dehydrogenase B-Natriuretic Peptide Respiratory Panel Bonner Adenovirus (Rapid PCR) A.phagocytophil DNA PCR Babesia microti DNA PCR B.pert (TEM-PCR) B.parapertussis DNA PCR Borrelia sp DNA (PCR) Borrelia miyamotoi (PCR) C. pneumoniae DNA (PCR) Coronavirus OC43 (PCR) Coronavirus HKU1 (PCR) Coronavirus 229E (PCR) Coronavirus NL63 (PCR) E.chaffeensis DNA (PCR) Human Metapneumovir PCR Influenza A (RT-PCR) Influenza B (RT-PCR) M. pneumoniae (PCR) Parainfluenza 1 (PCR) Parainfluenza 2 (PCR) Parainfluenza 3 (PCR) Parainfluenza 4 (PCR) RSV (PCR) Entero/Rhino (PCR) SARS-CoV-2 RNA (RT-PCR) Tick-borne Disease Ab 03/23/23 03/23/23 03/23/23 07:37 11:25 16:29 WBC RBC Hgb Hct MCV MCH MCHC RDW Plt Count MPV Immature Gran % (Auto) Neut % (Auto) Lymph % (Auto) [place] % (Auto) Eos % (Auto) Baso % (Auto) Lymph # (Auto) [place] # (Auto) Eos # (Auto) Baso # (Auto) Abs Immat Gran (auto) Absolute Neuts (auto) Absolute Nucleated RBC Nucleated RBC % (auto) Smear Tech's Comments Smear Path Review Haptoglobin Sodium Potassium Chloride Carbon Dioxide Anion Gap BUN Creatinine Estim Creat Clear Calc Estimated GFR POC Glucose 163 H 242 H 210 H Random Glucose Fasting Glucose Calcium Iron TIBC % Saturation Unsat Iron Binding Lactate Dehydrogenase B-Natriuretic Peptide Respiratory Panel Bonner Adenovirus (Rapid PCR) A.phagocytophil DNA PCR Babesia microti DNA PCR B.pert (TEM-PCR) B.parapertussis DNA PCR Borrelia sp DNA (PCR) Borrelia miyamotoi (PCR) C. pneumoniae DNA (PCR) Coronavirus OC43 (PCR) Coronavirus HKU1 (PCR) Coronavirus 229E (PCR) Coronavirus NL63 (PCR) E.chaffeensis DNA (PCR) Human Metapneumovir PCR Influenza A (RT-PCR) Influenza B (RT-PCR) M. pneumoniae (PCR) Parainfluenza 1 (PCR) Parainfluenza 2 (PCR) Parainfluenza 3 (PCR) Parainfluenza 4 (PCR) RSV (PCR) Entero/Rhino (PCR) SARS-CoV-2 RNA (RT-PCR) Tick-borne Disease Ab 03/23/23 03/24/23 03/24/23 19:42 06:52 11:03 WBC RBC Hgb Hct MCV MCH MCHC RDW Plt Count MPV Immature Gran % (Auto) Neut % (Auto) Lymph % (Auto) [place] % (Auto) Eos % (Auto) Baso % (Auto) Lymph # (Auto) [place] # (Auto) Eos # (Auto) Baso # (Auto) Abs Immat Gran (auto) Absolute Neuts (auto) Absolute Nucleated RBC Nucleated RBC % (auto) Smear Tech's Comments Smear Path Review Haptoglobin Sodium Potassium Chloride Carbon Dioxide Anion Gap BUN Creatinine Estim Creat Clear Calc Estimated GFR POC Glucose 263 H 176 H 212 H Random Glucose Fasting Glucose Calcium Iron TIBC % Saturation Unsat Iron Binding Lactate Dehydrogenase B-Natriuretic Peptide Respiratory Panel Bonner Adenovirus (Rapid PCR) A.phagocytophil DNA PCR Babesia microti DNA PCR B.pert (TEM-PCR) B.parapertussis DNA PCR Borrelia sp DNA (PCR) Borrelia miyamotoi (PCR) C. pneumoniae DNA (PCR) Coronavirus OC43 (PCR) Coronavirus HKU1 (PCR) Coronavirus 229E (PCR) Coronavirus NL63 (PCR) E.chaffeensis DNA (PCR) Human Metapneumovir PCR Influenza A (RT-PCR) Influenza B (RT-PCR) M. pneumoniae (PCR) Parainfluenza 1 (PCR) Parainfluenza 2 (PCR) Parainfluenza 3 (PCR) Parainfluenza 4 (PCR) RSV (PCR) Entero/Rhino (PCR) SARS-CoV-2 RNA (RT-PCR) Tick-borne Disease Ab 03/24/23 03/24/23 03/24/23 14:35 14:35 16:05 WBC RBC Hgb Hct MCV MCH MCHC RDW Plt Count MPV Immature Gran % (Auto) Neut % (Auto) Lymph % (Auto) [place] % (Auto) Eos % (Auto) Baso % (Auto) Lymph # (Auto) [place] # (Auto) Eos # (Auto) Baso # (Auto) Abs Immat Gran (auto) Absolute Neuts (auto) Absolute Nucleated RBC Nucleated RBC % (auto) Smear Tech's Comments Smear Path Review Haptoglobin Sodium 142 Potassium 4.7 Chloride 113 H Carbon Dioxide 23 Anion Gap 11 L BUN 15 Creatinine 0.85 Estim Creat Clear Calc 53.8 Estimated GFR > 60 POC Glucose 182 H Random Glucose Fasting Glucose 170 H Calcium 8.6 Iron TIBC % Saturation Unsat Iron Binding Lactate Dehydrogenase B-Natriuretic Peptide 225 H Respiratory Panel Bonner Adenovirus (Rapid PCR) A.phagocytophil DNA PCR Babesia microti DNA PCR B.pert (TEM-PCR) B.parapertussis DNA PCR Borrelia sp DNA (PCR) Borrelia miyamotoi (PCR) C. pneumoniae DNA (PCR) Coronavirus OC43 (PCR) Coronavirus HKU1 (PCR) Coronavirus 229E (PCR) Coronavirus NL63 (PCR) E.chaffeensis DNA (PCR) Human Metapneumovir PCR Influenza A (RT-PCR) Influenza B (RT-PCR) M. pneumoniae (PCR) Parainfluenza 1 (PCR) Parainfluenza 2 (PCR) Parainfluenza 3 (PCR) Parainfluenza 4 (PCR) RSV (PCR) Entero/Rhino (PCR) SARS-CoV-2 RNA (RT-PCR) Tick-borne Disease Ab 03/24/23 03/25/23 03/25/23 20:15 07:45 11:22 WBC RBC Hgb Hct MCV MCH MCHC RDW Plt Count MPV Immature Gran % (Auto) Neut % (Auto) Lymph % (Auto) [place] % (Auto) Eos % (Auto) Baso % (Auto) Lymph # (Auto) [place] # (Auto) Eos # (Auto) Baso # (Auto) Abs Immat Gran (auto) Absolute Neuts (auto) Absolute Nucleated RBC Nucleated RBC % (auto) Smear Tech's Comments Smear Path Review Haptoglobin Sodium Potassium Chloride Carbon Dioxide Anion Gap BUN Creatinine Estim Creat Clear Calc Estimated GFR POC Glucose 240 H 177 H 170 H Random Glucose Fasting Glucose Calcium Iron TIBC % Saturation Unsat Iron Binding Lactate Dehydrogenase B-Natriuretic Peptide Respiratory Panel Bonner Adenovirus (Rapid PCR) A.phagocytophil DNA PCR Babesia microti DNA PCR B.pert (TEM-PCR) B.parapertussis DNA PCR Borrelia sp DNA (PCR) Borrelia miyamotoi (PCR) C. pneumoniae DNA (PCR) Coronavirus OC43 (PCR) Coronavirus HKU1 (PCR) Coronavirus 229E (PCR) Coronavirus NL63 (PCR) E.chaffeensis DNA (PCR) Human Metapneumovir PCR Influenza A (RT-PCR) Influenza B (RT-PCR) M. pneumoniae (PCR) Parainfluenza 1 (PCR) Parainfluenza 2 (PCR) Parainfluenza 3 (PCR) Parainfluenza 4 (PCR) RSV (PCR) Entero/Rhino (PCR) SARS-CoV-2 RNA (RT-PCR) Tick-borne Disease Ab 03/25/23 03/25/23 03/26/23 16:08 20:37 07:41 WBC RBC Hgb Hct MCV MCH MCHC RDW Plt Count MPV Immature Gran % (Auto) Neut % (Auto) Lymph % (Auto) [place] % (Auto) Eos % (Auto) Baso % (Auto) Lymph # (Auto) [place] # (Auto) Eos # (Auto) Baso # (Auto) Abs Immat Gran (auto) Absolute Neuts (auto) Absolute Nucleated RBC Nucleated RBC % (auto) Smear Tech's Comments Smear Path Review Haptoglobin Sodium Potassium Chloride Carbon Dioxide Anion Gap BUN Creatinine Estim Creat Clear Calc Estimated GFR POC Glucose 201 H 137 H 156 H Random Glucose Fasting Glucose Calcium Iron TIBC % Saturation Unsat Iron Binding Lactate Dehydrogenase B-Natriuretic Peptide Respiratory Panel Bonner Adenovirus (Rapid PCR) A.phagocytophil DNA PCR Babesia microti DNA PCR B.pert (TEM-PCR) B.parapertussis DNA PCR Borrelia sp DNA (PCR) Borrelia miyamotoi (PCR) C. pneumoniae DNA (PCR) Coronavirus OC43 (PCR) Coronavirus HKU1 (PCR) Coronavirus 229E (PCR) Coronavirus NL63 (PCR) E.chaffeensis DNA (PCR) Human Metapneumovir PCR Influenza A (RT-PCR) Influenza B (RT-PCR) M. pneumoniae (PCR) Parainfluenza 1 (PCR) Parainfluenza 2 (PCR) Parainfluenza 3 (PCR) Parainfluenza 4 (PCR) RSV (PCR) Entero/Rhino (PCR) SARS-CoV-2 RNA (RT-PCR) Tick-borne Disease Ab 03/26/23 03/26/23 03/26/23 11:22 13:07 13:07 WBC 1.8 L RBC 1.87 L Hgb 5.5 L* Hct 16.9 L* MCV 90.4 MCH 29.4 MCHC 32.5 RDW 14.8 Plt Count 98 L MPV 11.1 Immature Gran % (Auto) 0.0 Neut % (Auto) 52.1 Lymph % (Auto) 29.1 [place]wood % (Auto) 14.3 H Eos % (Auto) 3.4 Baso % (Auto) 1.1 Lymph # (Auto) 0.5 L [place] # (Auto) 0.3 Eos # (Auto) 0.1 Baso # (Auto) 0.0 Abs Immat Gran (auto) 0.00 Absolute Neuts (auto) 0.9 L Absolute Nucleated RBC 0.000 Nucleated RBC % (auto) 0.0 Smear Tech's Comments VERIFIED Smear Path Review Pending Haptoglobin Sodium 141 Potassium 3.8 Chloride 111 H Carbon Dioxide 24 Anion Gap 10 L BUN 18 H Creatinine 1.11 Estim Creat Clear Calc 41.1 Estimated GFR 48 POC Glucose 248 H Random Glucose 213 H Fasting Glucose Calcium 8.4 Iron 23 L TIBC 250 % Saturation 9 L Unsat Iron Binding 227 Lactate Dehydrogenase 223 H B-Natriuretic Peptide Respiratory Panel Bonner Adenovirus (Rapid PCR) A.phagocytophil DNA PCR Babesia microti DNA PCR B.pert (TEM-PCR) B.parapertussis DNA PCR Borrelia sp DNA (PCR) Borrelia miyamotoi (PCR) C. pneumoniae DNA (PCR) Coronavirus OC43 (PCR) Coronavirus HKU1 (PCR) Coronavirus 229E (PCR) Coronavirus NL63 (PCR) E.chaffeensis DNA (PCR) Human Metapneumovir PCR Influenza A (RT-PCR) Influenza B (RT-PCR) M. pneumoniae (PCR) Parainfluenza 1 (PCR) Parainfluenza 2 (PCR) Parainfluenza 3 (PCR) Parainfluenza 4 (PCR) RSV (PCR) Entero/Rhino (PCR) SARS-CoV-2 RNA (RT-PCR) Tick-borne Disease Ab 03/26/23 03/26/23 03/26/23 13:07 14:05 14:51 WBC 1.7 L RBC 1.88 L Hgb 5.4 L* Hct 17.1 L* MCV 91.0 MCH 28.7 MCHC 31.6 RDW 15.1 Plt Count 97 L MPV 10.9 Immature Gran % (Auto) Pending Neut % (Auto) Pending Lymph % (Auto) Pending [place] % (Auto) Pending Eos % (Auto) Pending Baso % (Auto) Pending Lymph # (Auto) Pending [place] # (Auto) Pending Eos # (Auto) Pending Baso # (Auto) Pending Abs Immat Gran (auto) Pending Absolute Neuts (auto) Pending Absolute Nucleated RBC Pending Nucleated RBC % (auto) Pending Smear Tech's Comments Smear Path Review Haptoglobin Sodium Potassium Chloride Carbon Dioxide Anion Gap BUN Creatinine Estim Creat Clear Calc Estimated GFR POC Glucose Random Glucose Fasting Glucose Calcium Iron TIBC % Saturation Unsat Iron Binding Lactate Dehydrogenase B-Natriuretic Peptide 245 H Respiratory Panel Bonner Pending Adenovirus (Rapid PCR) Pending A.phagocytophil DNA PCR Babesia microti DNA PCR B.pert (TEM-PCR) Pending B.parapertussis DNA PCR Pending Borrelia sp DNA (PCR) Borrelia miyamotoi (PCR) C. pneumoniae DNA (PCR) Pending Coronavirus OC43 (PCR) Pending Coronavirus HKU1 (PCR) Pending Coronavirus 229E (PCR) Pending Coronavirus NL63 (PCR) Pending E.chaffeensis DNA (PCR) Human Metapneumovir PCR Pending Influenza A (RT-PCR) Pending Influenza B (RT-PCR) Pending M. pneumoniae (PCR) Pending Parainfluenza 1 (PCR) Pending Parainfluenza 2 (PCR) Pending Parainfluenza 3 (PCR) Pending Parainfluenza 4 (PCR) Pending RSV (PCR) Pending Entero/Rhino (PCR) Pending SARS-CoV-2 RNA (RT-PCR) Pending Tick-borne Disease Ab 03/26/23 03/26/23 14:51 14:51 WBC RBC Hgb Hct MCV MCH MCHC RDW Plt Count MPV Immature Gran % (Auto) Neut % (Auto) Lymph % (Auto) [place] % (Auto) Eos % (Auto) Baso % (Auto) Lymph # (Auto) [place] # (Auto) Eos # (Auto) Baso # (Auto) Abs Immat Gran (auto) Absolute Neuts (auto) Absolute Nucleated RBC Nucleated RBC % (auto) Smear Tech's Comments Smear Path Review Haptoglobin Pending Sodium Potassium Chloride Carbon Dioxide Anion Gap BUN Creatinine Estim Creat Clear Calc Estimated GFR POC Glucose Random Glucose Fasting Glucose Calcium Iron TIBC % Saturation Unsat Iron Binding Lactate Dehydrogenase B-Natriuretic Peptide Respiratory Panel Bonner Adenovirus (Rapid PCR) A.phagocytophil DNA PCR Pending Babesia microti DNA PCR Pending B.pert (TEM-PCR) B.parapertussis DNA PCR Borrelia sp DNA (PCR) Pending Borrelia miyamotoi (PCR) Pending C. pneumoniae DNA (PCR) Coronavirus OC43 (PCR) Coronavirus HKU1 (PCR) Coronavirus 229E (PCR) Coronavirus NL63 (PCR) E.chaffeensis DNA (PCR) Pending Human Metapneumovir PCR Influenza A (RT-PCR) Influenza B (RT-PCR) M. pneumoniae (PCR) Parainfluenza 1 (PCR) Parainfluenza 2 (PCR) Parainfluenza 3 (PCR) Parainfluenza 4 (PCR) RSV (PCR) Entero/Rhino (PCR) SARS-CoV-2 RNA (RT-PCR) Tick-borne Disease Ab Pending Imaging Diagnostic Imaging Impressions KUB X-Ray 03/11/23 14:33 IMPRESSION: 1. Moderate constipation. 2. Biliary stent in the right upper quadrant with cholecystectomy nissa in the right upper quadrant. Chest X-Ray 03/24/23 15:22 IMPRESSION: 1. Cardiomegaly with moderate pulmonary vascular congestion. 2. Small right pleural effusion with underlying atelectasis DS: Summary Hospital Course Hospital Course: The patient is a 72-year-old [place] female with several medical comorbidities admitted to Psychiatry for exacerbation of depression, disorganized behavior and suicidal thoughts. On admission she presented herself with mixed symptoms. Please see the HPI of the admission note for further details. On admission, we decided to start olanzapine as a mood stabilizer that it was ti trated up to 5 mg p.o. q.h.s. with for improvement. Also, since the patient was dysphoric we decided to add a low dose of Lamictal 25 mg p.o. daily to target depression and mood lability. The patient was assessed by the occupational therapist and mild cognitive impairment was diagnosed. The patient was able to participate in group, she was future oriented and she improved with no evidence of safety concerns. Were planning on discharging her to an assisted living facility that he was coordinated with her family. Unfortunately today, on regular blood work her H&H dropped dramatically and the patient was feeling sick. Medicine was consult, the laps were redone and they decided to admit her into Medicine to figure it out the workout. The patient was psychiatrically stable at the moment of the discharge. Time spent discussing smoking cessation with patient: 3 to 10 minutes Status at Discharge Functional status at discharge: independent ambulation Overall status at discharge: other (Medically unstable, transferred to Medicine) Time Spent with Patient Time attestation: Total time managing care of this patient today ____ minutes. Time spent: Less than 30 minutes Discharge Plan Discharge Anticipated Discharge Date/Time: 03/26/23 15:35 Patient Disposition: er [facility] Discharge Diagnosis: Mood disorder Dementia Referrals: Shonda Angulo NP [Other] - 04/03/23 1:30 pm [facility] [Other] - 03/29/23 10:00 am (Community [facility] provider Jory Hodge will provide visits to you at [facility] on 03/29/23 at 10am. [phone] ext [phone] Your Bioprocess Development Engineer Ness Mcgowan will also be in contact with you after discharge. [facility]'s rehab team to provide visit for PT/OT once you get to assisted living. ) [facility] [Other] - 03/27/23 Winsome De La Rosa MANAGER [employer] [Primary Care Provider] - 1 Week (Follow up appointment with Dr. Jyoti Velasquez, has been scheduled for Saturday03/29/23 @ 1:45pm.) Discharge Medications: New furosemide 40 mg Tablet 40 mg PO DAILY 30 Days Qty: 30 0RF Protocol: Hold for SBP< HOLD for SBP < : 90 olanzapine 5 mg Tablet 5 mg PO DAILY 30 Days Qty: 30 0RF trazodone 100 mg Tablet 100 mg PO BEDTIME PRN (Reason: Insomnia) 30 Days Qty: 30 0RF ibuprofen 400 mg Tablet 400 mg PO Q4H PRN (Reason: Pain, Moderate(Pain Scale 4-6)) 30 Days Qty: 60 0RF hydroxyzine HCl 25 mg Tablet 25 mg PO Q6H PRN (Reason: Anxiety) 30 Days Qty: 60 0RF lactulose 20 gram/30 mL Solution 20 g PO TID 30 Days Qty: 2700 0RF polyethylene glycol 3350 17 gram Powder In Packet 17 g PO BID Qty: 60 0RF sennosides [Senna Lax] 8.6 mg Tablet 8.6 mg PO BEDTIME Qty: 30 0RF lidocaine [Lidocaine Pain Relief] 4 % Adhesive Patch,Medicated 1 patch transdermal DAILY 30 Days Qty: 30 0RF Protocol: Apply to: Apply to: knee Continued clopidogrel 75 mg Tablet 75 mg PO DAILY 30 Days Qty: 30 0RF levothyroxine 25 mcg Tablet 25 mcg PO DAILY 30 Days Qty: 30 0RF potassium chloride 20 mEq Packet 20 meq PO DAILY 30 Days Qty: 30 0RF insulin aspart U-100 [Novolog U-100 Insulin aspart] 100 unit/mL Solution 1 sliding scale dose SUBCUT TID Qty: 10 0RF pantoprazole 40 mg Tablet,Delayed Release (Dr/Ec) 40 mg PO BID 30 Days Qty: 60 0RF docusate sodium 100 mg Capsule 100 mg PO BID Qty: 60 0RF gabapentin 100 mg Capsule 200 mg PO TID 30 Days Qty: 180 0RF spironolactone 50 mg Tablet 50 mg PO DAILY 30 Days Qty: 30 0RF midodrine 10 mg Tablet 10 mg PO TID 30 Days Qty: 90 0RF Rx Instructions: do not give last dose of day after 6PM or within 4 hrs of bedtime escitalopram oxalate 20 mg Tablet 20 mg PO DAILY 30 Days Qty: 30 0RF rosuvastatin 5 mg Tablet 5 mg PO DAILY 30 Days Qty: 30 0RF trospium 60 mg Capsule,Extended Release 24hr 60 mg PO 1XD 30 Days Qty: 30 0RF Incruse Ellipta 62.5 mcg/actuation Blister With Device 1 inh INHALATION DAILY Qty: 30 0RF Changed insulin glargine [Lantus Solostar U-100 Insulin] 100 unit/mL (3 mL) Insulin Pen 34 unit SUBCUT DAILY 30 Days Qty: 10.2 0RF Discontinued lorazepam 0.5 mg Tablet 0.5 mg PO DAILY PRN (Reason: Anxiety) furosemide 20 mg Tablet 20 mg PO DAILY Discharge Orders: Discharge Order (Routine); Ordered 03/26/23 Ordered By: Henrique Anderson Diet: Advance to usual diet Activity on Discharge: As tolerated Stand Alone Forms: Patient Portal Discharge page Care Plan Goals: The patient has been transferred to Medicine for medical follow-up Health Concerns: Continue treatment on med surge unit Plan of Treatment: Continue outpatient providers when medically ready Assessment: The patient is an elderly female with a prior history of depression admitted for worsening of dysphoria and disorganized behavior. She was initially treated with mood stabilizers and improved dramatically. She was ready for discharge but unfortunately her H&H dropped dramatically needed to be transferred to Medicine for medical workout.
[2023-03-26 15:56] LABS: SCAN SMEAR FLAG 1
--- OUTSIDE RECORDS SUMMARY | 2023-03-26 16:28 | XMS_ITS ---
Author Name Sanket Garcia Address [address] [place] [address] [address] [facility] Address [address] [place] [address] Care Team Providers Care Tow Motor Driver Name Role Phone Sanket Garcia Unavailable [phone] PROBLEMS Type Condition ICD9-CM Code [id number] Code Onset Dates Condition Status SNOMED Code Problem Elevated alpha-fetoprotein R77.2 Active Problem Other cirrhosis of liver K74.69 Active 12590284 Problem Chronic hepatitis C without hepatic coma B18.2 Active 9998667 06 Problem Other ascites R18.8 Active 875500666 Problem Gallstones K80.20 Active 822374694 Problem Cirrhosis of liver with ascites K74.60 Active Problem Cirrhosis K74.60 Active 034835073 Problem Gastroesophageal reflux disease, esophagitis presence not specified K21.9 Active 627909833 Problem History of hepatitis C Z86.19 Active 13583295065389 Problem Secondary esophageal varices without bleeding I85.10 Active 40182801 ALLERGIES Substance Reaction Event Type Date Status Bee Sting anaphylaxis Drug Allergy December, Active Penicillin hives Drug Allergy December, Active Aspirin Unknown Drug Allergy December, Active ENCOUNTERS Encounter Location Date Diagnosis [facility] [address] [place] [phone] December, Cirrhosis of liver with ascites K74.60 [facility] [address] [place] [phone] December, Other cirrhosis of liver K74.69 ; History of hepatitis C Z86.19 ; Other ascites R18.8 and Secondary esophageal varices without bleeding I85.10 [facility] [address] [place] [address] Oct, [facility] [address] [place] [address] Jul, Other cirrhosis of liver K74.69 and History of hepatitis C Z86.19 [facility] [address] [place] [address] Feb, [facility] [address] [place] [address] May, [facility] [address] [place] [address] Nov, [facility] [address] [place] [address] Nov, Cirrhosis K74.60 ; Chronic hepatitis C without hepatic coma B18.2 ; Elevated alpha-fetoprotein R77.2 and Gastroesophageal reflux disease, esophagitis presence not specified K21.9 [facility] [address] [place] [address] May, Chronic hepatitis C without hepatic coma B18.2 ; Cirrhosis K74.60 and Elevated alpha-fetoprotein R77.2 [facility] [address] [place] [id number] Feb, [facility] [address] [place] [address] Jan, [facility] [address] [place] [address] Jan, [facility] [address] [place] [address] Nov, Chronic hepatitis C without hepatic coma B18.2 ; Cirrhosis K74.60 and Elevated alpha-fetoprotein R77.2 [facility] [address] [place] [address] May, Chronic hepatitis C without hepatic coma B18.2 ; Cirrhosis K74.60 and Elevated alpha-fetoprotein R77.2 [facility] [address] [place] [address] May, Chronic hepatitis C without hepatic coma B18.2 ; Other cirrhosis of liver K74.69 ; Elevated alpha-fetoprotein R77.[address] [facility] [address] [place] [phone] Mar, Chronic hepatitis C 070.54 [facility] [address] [place] [phone] Jan, [facility] [address] [place] [address] Oct, Chronic hepatitis C 070.54 [facility] [address] [place] [phone] Oct, [facility] [address] [place] [phone] Oct, [facility] [address] [place] [phone] Oct, Cirrhosis of liver due to hepatitis C 070.[address] [facility] [address] [place] [id number] Apr, [facility] [address] [place] [phone] Apr, Cirrhosis of liver due to hepatitis C 070.54 and Elevated alpha fetoprotein 790.99 [facility] [address] [place] [phone] Apr, Chronic hepatitis C 070.54 ; GERD (gastroesophageal reflux disease) 530.81 ; Constipation 564.00 ; Cirrhosis of liver due to hepatitis C 070.54 ; Gallstones 574.20 and Abdominal pain, right upper quadrant 789.01 [facility] [address] [place] [phone] 14 Oct, 2013 Chronic hepatitis C 070.54 ; GERD (gastroesophageal reflux disease) 530.81 ; Constipation 564.00 and Cirrhosis of liver due to hepatitis C 070.54 [facility] [address] [place] [address] Aug, [facility] Outpatient [address] [place] [phone] Jun, [facility] [address] [place] [phone] Apr, Chronic hepatitis C 070.54 ; GERD (gastroesophageal reflux disease) 530.81 ; Constipation 564.00 and Cirrhosis of liver due to hepatitis C 070.54 [facility] [address] [place] [phone] Feb, [facility] [address] [place] [phone] Feb, [facility] [address] [place] [phone] Feb, [facility] [address] [place] [phone] Jan, [facility] [address] [place] [id number] Jan, Chronic hepatitis C 070.54 ; Anemia 285.[address] [facility] [address] [place] [address] Nov, Chronic hepatitis C 070.54 and Encounter for long-term (current) use of other high-risk medications V58.69 [facility] [address] [place] [id number] Nov, Chronic hepatitis C 070.54 [facility] [address] [place] [phone] Nov, [facility] [address] [place] [id number] Nov, [facility] [address] [place] [phone] Oct, [facility] [address] [place] [phone] Sep, Chronic hepatitis C without mention of hepatic coma 070.54 ; Cirrhosis 571.[address] [facility] [address] [place] [phone] Aug, [facility] [address] [place] [phone] Jul, Chronic hepatitis C without mention of hepatic coma 070.54 ; Cirrhosis 571.5 ; Other abnormal tumor markers 795.89 and Blood in stool 578.1 [facility] [address] [place] [address] Apr, Chronic hepatitis C 070.54 ; Cirrhosis 571.5 and Other malaise and fatigue 780.79 [facility] [address] [place] [address] Jan, [facility] [address] [place] [id number] Jan, [facility] [address] [place] [address] Jan, Chronic hepatitis C 070.54 and Nonspecific [...] VIRAL LOAD 2014-10-12 HEP C VIRAL LOAD [id number] <15 HCV LOG PCR 6.42 <1.18 FIBROSPECT [...] VIRAL LOAD 2013-05-04 HEP C VIRAL LOAD [id number] <15 HCV LOG PCR 6.45 <1.18 LIVER [...] VIRAL LOAD 2013-02-16 HEP C VIRAL LOAD [id number] <43 HCV LOG PCR 4.41 <1.63 CBC [...] VIRAL LOAD 2013-01-13 HEP C VIRAL LOAD [id number] <43 HCV LOG PCR 4.99 <1.63 LIVER [...] VIRAL LOAD 2012-12-23 HEP C VIRAL LOAD [id number] <43 HCV LOG PCR 4.85 <1.63 LIVER [...] VIRAL LOAD 2012-12-16 HEP C VIRAL LOAD [id number] <43 HCV LOG PCR 5.10 <1.63 LIVER [...] VIRAL LOAD 2012-12-09 HEP C VIRAL LOAD [id number] <43 HCV LOG PCR 5.78 <1.63 LIVER [...] VIRAL LOAD 2012-10-07 HEP C VIRAL LOAD [id number] <43 HCV LOG PCR 5.97 <1.63 MRI [...] VIRAL LOAD 2012-05-08 HEP C VIRAL LOAD [id number] <43 HCV LOG PCR 6.45 <1.63 LIVER [...] Patient presents today for a f/u from [facility], pt been in hospital for week [...] [employer] [address] [facility] [address] [employer] self NUVIA JANICE S [id number] [employer]ICA[employer] OF [employer] [address] [facility] [address] [facility]ICA[facility] OF [facility] NUVIA JANICE S [id number] [place] [address] [facility] [address] [phone] [place] NUV[place] JANICE S [id number]
--- NOTE | 2023-03-26 16:53 | PC.NURSE ---
Order read to transfer patient to MED/SURG. patient left floor at 1620.
[2023-03-27 15:36] LABS: Adenovirus PCR Not Detected (Not Detect.); Bordetella parapertussis PCR Not Detected (Not Detect.); Bordetella pertussis PCR Not Detected (Not Detect.); Chlamydia pneumoniae PCR Not Detected (Not Detect.); Coronavirus 229E PCR Not Detected (Not Detect.); Coronavirus HKU1 PCR Not Detected (Not Detect.); Coronavirus NL63 PCR Not Detected (Not Detect.); Coronavirus OC43 PCR Not Detected (Not Detect.); Human metapneumovirus PCR Not Detected (Not Detect.); Influenza A PCR Not Detected (Not Detect.); Influenza B PCR Not Detected (Not Detect.); Mycoplasma pneumoniae PCR Not Detected (Not Detect.); Parainfluenza 1 PCR Not Detected (Not Detect.); Parainfluenza 2 PCR Not Detected (Not Detect.); Parainfluenza 3 PCR Not Detected (Not Detect.); Parainfluenza 4 PCR Not Detected (Not Detect.); RSV PCR Not Detected (Not Detect.); Rhino/Enterovirus PCR Not Detected (Not Detect.); SARS-CoV-2 PCR Not Detected (Not Detect.)
[2023-03-28 06:13] LABS: A. Phagocytphilium DNA,RT-PCR NOT DETECTED (NOT DETECTED); Babesia Microti DNA, RT-PCR NOT DETECTED (NOT DETECTED); Borrelia Miyamotoi,DNA RT-PCR NOT DETECTED (NOT DETECTED); E.Chaffeensis DNA RT-PCR NOT DETECTED (NOT DETECTED); Lyme(Borrelia ssp)DNA RT-PCR NOT DETECTED (NOT DETECTED)
[2023-03-28 06:47] LABS: Haptoglobin 55 mg/dL (43-212)
[2023-03-31 21:53] LABS: Glucose-6-Phosphate Dehydrogen 17.2 U/g Hgb (7.0-20.5)
== END 2023-03-26 16:21 | disposition short-term general hospital (02) | DRG 885 ==
PROVIDERS: Physician Assistant; Registered Nurse; Admitting Provider Psychiatry & Neurology Psychiatry; PCP Nurse Practitioner Family; Visit Provider Psychiatry & Neurology Psychiatry
DX: F39 Unspecified mood [affective] disorder (principal); R18.8 Other ascites; R45.851 Suicidal ideations; F03.90 Unspecified dementia, unspecified severity, without behavioral disturbance, psychotic disturbance, mood disturbance, and anxiety; K74.60 Unspecified cirrhosis of liver; E03.9 Hypothyroidism, unspecified; E11.9 Type 2 diabetes mellitus without complications; K59.09 Other constipation; B19.20 Unspecified viral hepatitis C without hepatic coma; J44.9 Chronic obstructive pulmonary disease, unspecified; I11.0 Hypertensive heart disease with heart failure; I50.9 Heart failure, unspecified; Z20.822 Contact with and (suspected) exposure to COVID-19; Z76.82 Awaiting organ transplant status; Z91.128 Patient's intentional underdosing of medication regimen for other reason; Z87.891 Personal history of nicotine dependence; Z79.4 Long term (current) use of insulin; Z79.890 Hormone replacement therapy; Z79.899 Other long term (current) drug therapy
CPT/HCPCS: 36415; 71045; 74018; 80048; 80053; 80061; 82947; 82955; 83010; 83036; 83540; 83615; 83880; 85025; 87633; 87798; 87801

== ENCOUNTER → 2023-03-06 12:59 | Outpatient (BNV) | payer OTHER, SELFPAY | PROVIDERS: Admitting Provider Psychiatry & Neurology Psychiatry; PCP Nurse Practitioner Family; Visit Provider Student in an Organized Health Care Education/Training Program | DX: R10.9 Unspecified abdominal pain (principal) | CPT/HCPCS: 99221; 99499 ==

== ENCOUNTER → 2023-03-06 12:59 | Outpatient (BNV) | payer OTHER, SELFPAY | PROVIDERS: Admitting Provider Psychiatry & Neurology Psychiatry; PCP Nurse Practitioner Family; Visit Provider Psychiatry & Neurology Psychiatry | DX: F39 Unspecified mood [affective] disorder (principal) | CPT/HCPCS: 90792; 99231; 99232; 99238 ==

== ENCOUNTER 2023-03-26 16:44 | Inpatient (IN) | payer OTHER, SELFPAY ==
--- NOTE | ~2023-03-26 | US_ITS ---
EXAMINATION: US ABDOMEN COMPLETE CLINICAL INFORMATION: Pancytopenia. Evaluate for liver mass. Check spleen vasculature/size. COMPARISON: X-ray KUB 03/11/2023. Ultrasound abdomen complete 10/01/2018 and 12/25/2016. MRI abdomen 05/10/2014. TECHNIQUE: Real-time imaging of the abdominal viscera. FINDINGS: PANCREAS: Normal. ABDOMINAL AORTA: The proximal, mid, and distal segments are normal in caliber. INFERIOR VENA CAVA: Visualized portions are normal. LIVER: The liver is normal in size. The liver contour is normal. Parenchymal echogenicity is heterogeneously increased. Within the right hepatic lobe, 2.1 x 2.8 x 2.1 cm and 1.5 x 1.2 x 1.7 cm hyperechoic masses are seen, with hypoechoic rims. These are new from prior. Neither of these shows associated color Doppler flow. There is no intrahepatic biliary duct dilatation seen. There is a patent TIPS shunt. GALLBLADDER: Surgically absent. COMMON BILE DUCT: Poorly visualized. RIGHT KIDNEY: Normal. No hydronephrosis. No renal calculi or focal parenchymal lesions. The kidney measures 10.4 cm in maximum dimension. LEFT KIDNEY: Normal. No hydronephrosis. No renal calculi or focal parenchymal lesions. The kidney measures 9.0 cm in maximum dimension. SPLEEN: No focal finding. The spleen measures 13.0 cm in maximum dimension. FREE FLUID: None. ADDITIONAL FINDINGS: A right pleural effusion is noted. US/US abdomen complete IMPRESSION: 1. There is generalized increase in hepatic echotexture, consistent with the patient's history of cirrhosis. 2. There is interim appearance within the right hepatic lobe of 1.7 cm and 2.8 cm in maximal diameter hyperechoic lesions. These are indeterminate, the possibility of neoplastic lesion is not excluded. Recommend further evaluation with ultrasound or MRI. 3. There is a patent TIPS shunt. 4. There is borderline splenomegaly. 5. The gallbladder surgically absent. 6. A right pleural effusion is noted.
--- NOTE | 2023-03-26 16:06 | PM.IMHP ---
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 He has been experiencing dyspnea on exertion, fatigue, and weakness for several days. She was evaluated by my colleague several days ago and symptoms were thought to be related to congestive heart failure as chest x-ray did show increased pulmonary vascular congestion and she had been only taking half of her home dose of Lasix. Lasix was increased with minimal improvement. She continues to experience bilateral lower extremity edema and fatigue has worsened. She now has nonproductive cough and continues with dyspnea on exertion. Upon evaluation in Geriatric Psychiatry, labs were ordered significant for white blood cell count of 1.8, red blood cell count of 1.87, hemoglobin 5.5 (03/04 at [facility] was 11.2), hematocrit 16.9%, MCV 90 0.4%. Labs were repeated for accuracy and were consistent with these findings. Platelet levels at 98. Peripheral smear is pending. Haptoglobin pending. LDH 223. Iron level of 223, TIBC 250, iron saturation 9%. Unclear chronicity of iron deficiency. Vitals stable, with intermittent mild tachypnea, without hypotension. Pt has not had fevers, chills, denies abd pain, nausea, vomiting, epistaxis, melena, hematochezia, diarrhea, constipation, hemoptysis, or chest pain. Pt will be admitted to hospitalist service for further management and workup of symptomatic anemia and pancytopenia. Review of Systems Review of Systems: General: No fevers, malaise, unintentional weight loss. +fatigue, +gen weakness HEENT: No blurred vision, diplopia. No sore throat, nasal congestion, rhinorrhea, sinus pain, ear pain, nose bleeds Cardiovascular: No chest pain, palpitations, or leg edema Respiratory: +sob, +cough, +wheezing GI: No abdominal pain, nausea, vomiting, diarrhea, constipation, melena, hematochezia : No dysuria, hematuria, increased urinary frequency, decreased urinary output MSK: No myalgia, back pain Neuro: No headaches, weakness, paresthesias Skin: No rashes or lesions [facility] Medical History Asthma-COPD overlap syndrome Chronic constipation Congestive heart failure Depression GERD (gastroesophageal reflux disease) Hepatic cirrhosis History of hepatitis C Hypertension Hypothyroidism Type 2 diabetes mellitus Social History Household Members: Children Household Members Other:: two daughters, two grandchildren and son-in-law Housing: House Do you presently have visiting nurse or other home services: Yes (Nurse visiting on Mondays and Fridays) Patient Tobacco Use Status: Former Tobacco user Quit Date: 15 years ago Tobacco use type: Cigarette Second Hand Smoke Exposure: No Substance Use Type: Crack/Cocaine and Marijuana service: No Sexual orientation: Straight/Heterosexual Meds Allergies Allergy/AdvReac Type Severity Reaction Status Date / Time aspirin Allergy Unknown Verified 03/13/23 18:25 bee pollen [bee stings] Allergy Unknown Verified 03/13/23 18:25 Penicillins Allergy Unknown Verified 03/13/23 18:25 Active Medications: Current Medications Acetaminophen (Acetaminophen 325 Mg Tablet) 650 mg PO Q6H PRN PRN Reason: Pain, Mild (Pain Scale 1-3) Dextrose (Dextrose 50 % 25 Gm/50 Ml Syringe) 25 gm IVPUSH Q15M PRN; Protocol PRN Reason: per Hypoglycemia Standing Ord. Docusate Sodium (Docusate Sodium 100 Mg Capsule) 100 mg PO DAILY PRN PRN Reason: Constipation Glucose (Glucose Gel 15 Gm Gel..Gram.) 15 gm PO Q15M PRN; Protocol PRN Reason: per Hypoglycemia Standing Ord. Sodium Chloride (Ns) 100 mls @ 100 mls/hr IV ONCE ONE Stop: 03/26/23 16:58 Sodium Chloride (Ns) 100 mls @ 100 mls/hr IV ONCE ONE Stop: 03/26/23 16:58 Insulin Human Lispro (Insulin Lispro 100 Unit/Ml 3 Ml Vial) 0 unit SUBCUT QIDACHS [facility]; Protocol Ondansetron HCl (Ondansetron Hcl 4 Mg/2 Ml Vial) 4 mg IVPUSH Q8H PRN PRN Reason: Nausea and Vomiting Pharmacy Consult (Consult Rx Perform Med Rec) 1 each MISCELLANE ONCE PRN PRN Reason: Consult order Sodium Chloride (0.9 % Sodium Chloride Flush 3 Ml Syringe) 3 ml IVFLUSH QSHIFT ZENA Physical Exam Vital Signs and Narrative: Constitutional - Awake and Alert, No apparent distress Eyes - PERRLA, EOMI Cardiovascular - S1S2, RRR, 2+ pitting BLE Respiratory - Normal lung expansion, Normal respiratory effort, No respiratory distress, expiratory wheezing left upper lobe, diminished lung sounds right lower lobe Gastrointestinal - NT / ND; +BS; No rebound or guarding - No CVA tenderness Extremities - no calf tenderness bilaterally, no swelling Skin - Warm/Dry Neurological - Alert & oriented x3 Psychological - Appropriate affect Assessment and Plan (1) Pancytopenia: Status: Acute (2) Symptomatic anemia: Status: Acute Plan 72-year-old female with history of 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 #Severe symptomatic anemia with pancytopenia- etiology unclear -H/H 5.4/17.1% earlier today. Hgb 03/04 at [facility] was 11.2/32.6% -Denies bleeding. Check Stool occult blood -LDH essentially normal at 223, haptoglobin pending -Iron deficiency present -Tick panel pending -Discussed possible agranulocytosis with Psychiatry as she does take Zyprexa but he does not feel this is the case -Discussed with GI. Recommends hematology consult and splenic doppler and liver u/s -Hematology consult -Transfuse 2 units prbc -monitor on telemetry #Unspecified CHF -CXR shows R pleural effusion, but BNP stable. Clinically not in acute exacerbation -Give 40mg IV lasix between blood transfusions -Continue oral lasix #HTN -continue oral antihypertensives # hypothyroidism -continue Synthroid # asthma/COPD overlap -no acute exacerbation -albuterol p.r.n., continue home inhalers # GERD -continue PPI # hepatic cirrhosis with ascites -continue Lasix and spironolactone # mood disorder -hold olanzapine given pancytopenia -consider Psychiatry consult # type 2 diabetes, insulin dependent-with hyperglycemia -dose adjusted basal insulin -Humalog on sliding scale -diabetic diet =-POC glucose DVT prophylaxis-SCP full code Pt has dispo previously set up on psychiatry to go to assisted living on dc Time Spent With Patient Time: Total time managing care of this patient today ____ minutes. Quality Stroke Does the patient have a stroke diagnosis?: No VTE Prior VTE?: No VTE Risk Level:: Medical - moderate - high VTE Device Contraindication: Treatment Not Indicated VTE Drug Contraindication: N/A - Med Ordered
[2023-03-26 17:14] VITALS: BP 133/63; PULSE 91; RESP 18; TEMP 36.8; O2SAT 99
[2023-03-26 17:25] LABS: Glucose, Whole Blood 163 mg/dL (60-115)
[2023-03-26] MEDS: Insulin Lispro 100 UNIT/ML 3 ML VIAL SUBCUT ×2 (18:05→20:52)
[2023-03-26] MEDS: 0.9 % Sodium Chloride Flush 3 ML SYRINGE IVFLUSH (18:36)
[2023-03-26] MEDS: Furosemide 40 MG/4 ML VIAL IVPUSH (18:36)
[2023-03-26 19:18] VITALS: BP 138/56; PULSE 108; TEMP 37.1; O2SAT 96
[2023-03-26 20:10] LABS: Glucose, Whole Blood 239 mg/dL (60-115)
[2023-03-26] MEDS: Sennosides 8.6 MG TABLET PO (20:52)
[2023-03-26] MEDS: polyethylene glycoL 3350 17 GM POWD.PACK PO (20:52)
[2023-03-26] MEDS: Docusate Sodium 100 MG CAPSULE PO (20:52)
[2023-03-26] MEDS: Gabapentin 100 MG CAPSULE 200 MG PO (20:52)
[2023-03-26] MEDS: Lactulose 20 GM/30 ML SOLUTION PO (20:52)
[2023-03-26 22:40] VITALS: BP 133/59; PULSE 100; RESP 20; TEMP 36.8
[2023-03-26 22:56] VITALS: BP 120/52; PULSE 88; RESP 24; TEMP 36.9
[2023-03-27] VITALS (14 sets, daily range): BP systolic 119–178; BP diastolic 53–69; PULSE 66–91; RESP 16–21; TEMP 36.5–37.3; O2SAT 92–96
[2023-03-27] MEDS: Ibuprofen 400 MG TABLET PO ×2 (00:11→08:13)
[2023-03-27] MEDS: traZODone HCL 100 MG TABLET PO ×2 (00:11→21:33)
[2023-03-27] MEDS: 0.9 % Sodium Chloride Flush 3 ML SYRINGE IVFLUSH ×2 (00:12→08:13)
[2023-03-27] MEDS: Levothyroxine Sodium 25 MCG TABLET PO (06:14)
[2023-03-27] MEDS: Omeprazole 20 MG CAPSULE.DR PO ×2 (06:14→15:39)
[2023-03-27 07:06] LABS: Glucose, Whole Blood 198 mg/dL (60-115)
[2023-03-27 07:35] LABS: MANUAL DIFF FLAG NO
[2023-03-27 07:40] LABS: Basophils Percent Auto 1.4 % (0-2); Eosinophils Absolute Auto 0.1 X10*3/uL (0.0-0.4); Eosinophils Percent Auto 4.3 % (0-4); Hematocrit 23.1 % (37.0-47.0); Hemoglobin 7.5 g/dl (12.0-16.0); Imm Gran Abs Auto 0.01 X10*3/uL (0.00-0.03); Imm Gran Pct Auto 0.4 % (0.0-0.4); Lymphocytes Absolute Auto 0.6 X10*3/uL (1.2-4.9); Lymphocytes Percent Auto 22.5 % (20-40); Mean Corpuscular HGB Conc 32.5 g/dl (31.0-35.0); Mean Corpuscular Hemoglobin 29.6 pg (27.0-33.0); Mean Corpuscular Volume 91.3 fL (80.0-98.0); Mean Platelet Volume 11.2 fL (9.4-12.3); Monocytes Absolute Auto 0.4 X10*3/uL (0.1-1.2); Monocytes Percent Auto 14.1 % (2-11); Neutrophils Absolute Auto 1.6 x10*3/uL (2.0-8.3); Neutrophils Percent Auto 57.3 % (45-73); Platelet Count 111 X10*3/uL (160-400); Red Blood Count 2.53 X10*6/uL (4.20-5.50); Red Cell Distribution Width 14.6 % (11.0-16.0); White Blood Count 2.8 X10*3/uL (4.8-10.8)
[2023-03-27 07:41] LABS: Immature Retic Fraction 18.8 % (3.0-15.9); Retic HGB Equivalent 21.3 pg (30.0-35.0); Reticulocyte Percent 4.6 % (0.5-1.8); Reticulocytes Absolute 0.119 X10*6/uL (0.026-0.095)
[2023-03-27 07:52] LABS: Anion Gap 10 (12-20); Blood Urea Nitrogen 19 mg/dL (9-16); Calcium 8.2 mg/dL (8.4-10.2); Carbon Dioxide 26 mmol/L (22-29); Chloride 109 mmol/L (96-108); Creatinine Clr Calc Pharmacy 49.8; Estimated Glomerular Filt Rate > 60; Glucose Random 210 mg/dL (60-115); Potassium 3.5 mmol/L (3.3-5.1); Sodium 141 mmol/L (135-145)
[2023-03-27 07:53] LABS: Alanine Aminotransferase 18 U/L (0-31); Albumin Level 2.6 g/dL (3.5-5.0); Alkaline Phosphatase 82 U/L (39-117); Aspartate Amino Transferase 24 U/L (5-31); Bilirubin Direct 0.9 mg/dL (0.0-0.5); Bilirubin Total 7.7 mg/dL (0.0-1.0); Total Protein 4.9 g/dL (6.5-8.0)
[2023-03-27] MEDS: Lactulose 20 GM/30 ML SOLUTION PO ×2 (08:11→21:33)
[2023-03-27] MEDS: Lidocaine 4 % Patch ADH..PATCH 1 PATCH TRANSDERMA (08:11)
[2023-03-27] MEDS: Insulin Glargine,Hum.rec.anlog 100 UNIT/ML 10 ML VIAL 26 UNIT SUBCUT (08:11)
[2023-03-27] MEDS: Gabapentin 100 MG CAPSULE 200 MG PO ×3 (08:12→21:33)
[2023-03-27] MEDS: Potassium Chloride Packet 20 MEQ PACKET PO (08:12)
[2023-03-27] MEDS: Insulin Lispro 100 UNIT/ML 3 ML VIAL SUBCUT ×3 (08:12→21:33)
[2023-03-27] MEDS: Clopidogrel Bisulfate 75 MG TABLET PO (08:12)
[2023-03-27] MEDS: Atorvastatin Calcium 20 MG TABLET PO (08:12)
[2023-03-27] MEDS: Midodrine HCl 10 MG TABLET PO ×3 (08:12→15:39)
[2023-03-27] MEDS: Escitalopram Oxalate 20 MG TABLET PO (08:12)
[2023-03-27] MEDS: Spironolactone 25 MG TABLET 50 MG PO (08:12)
[2023-03-27] MEDS: Docusate Sodium 100 MG CAPSULE PO ×2 (08:13→21:32)
[2023-03-27] MEDS: Furosemide 40 MG TABLET PO (08:13)
--- NOTE | 2023-03-27 08:29 | MHC.CM.PN ---
CM met with Patient at bedside and addressed PARSONS with her, providing Patient with the original and placing a copy on the chart. Patient lives in an apartment with her Daughter and Son-in-Law and she had [employer] services. [facility] with said services is the tentative plan. CM has initiated and will follow for dc planning. PCP/TECHNICAL MARKETING ENGINEER is Rj Schumacher.
[2023-03-27 08:36] LABS: Lactate Dehydrogenase 210 U/L (122-220)
[2023-03-27 08:38] LABS: OBS Int Ctl Valid YES; OBS1 POSITIVE (NEGATIVE)
--- NOTE | 2023-03-27 08:49 | PM.HEMONCCN ---
Subjective - Subjective Chief complaint: Weakness Patient: new to practice Consult date: 03/27/23 Requesting Physician: Vilma Nation NP Primary Care Provider: Unknown Physician HPI - Consult Narrative Reason for consult: Anemia/pancytopenia Narrative: Lourdes Del Toro is a 72 year old female history of liver cirrhosis related to chronic hepatitis-C, congestive heart failure, COPD, hypertension, hypothyroidism, GERD and type 2 insulin-dependent diabetes who was initially admitted to psychiatric E cy[facility] for symptoms of depression. She was initially evaluated at [facility], hemoglobin on 03/04/2023 was 11.2 gram/dL. She was admitted to [facility] on 03/06/2023, when she was ready to be discharged from the psych floor she complained of progressive weakness and shortness of breath. CBC revealed a hemoglobin of 5.5 gram/dL. She received 2 units blood transfusion. Patient states that she does have a history of prior blood transfusion many years ago because of her liver problems. She used to see Dr. Garcia in the past, she now sees a liver specialist at [facility]. They were considering liver transplantation. Patient states that she did receive antibiotics end of February before her admission for a urinary tract infection. She has never seen a staff auditor before. No other symptoms such as fever, chills, night sweats or unexplained weight loss. She denies hematochezia/ melena. Review of Systems - Constitutional Reports as per HPI, Reports fatigue, Reports malaise, Reports poor appetite - Cardiovascular Reports no additional cardiovascular complaints - Respiratory Reports no additional respiratory complaints [facility] Medical History: Medical History (Last Reviewed 03/26/23 @ 16:36 by CECY Mcgowan) Asthma-COPD overlap syndrome Chronic constipation Congestive heart failure Depression GERD (gastroesophageal reflux disease) Hepatic cirrhosis History of hepatitis C Hypertension Hypothyroidism Type 2 diabetes mellitus Social History: Social History (Last Reviewed 03/26/23 @ 16:36 by CECY Mcgowan) Living Situation History: Household Members: Children Household Members Other:: two daughters, two grandchildren and son-in-law Housing: House Do you presently have visiting nurse or other home services: Yes Do you presently have visiting nurse or other home services comment: Nurse visiting on Mondays and Fridays Alcohol History Details: Currently Displaying Signs/Symptoms of Alcohol Withdrawal: No Tobacco History: Patient Tobacco Use Status: Former Tobacco user Tobacco use type: Cigarette Smoke Quit Date: 15 years ago Second Hand Smoke Exposure: No Substance Use History: Substance Use Type: Crack/Cocaine Substance Use Type: Marijuana Currently Displaying Signs/Symptoms of Drug Intoxication Withdrawal: No Advance Directives: Advance Directives: No Advance Directives Information Provided: Yes Occupation Assessmet: service: No Sex/Gender Assessment: Sexual orientation: Straight/Heterosexual Home Medications and Allergies Current Medications: Current Medications Acetaminophen (Acetaminophen 325 Mg Tablet) 650 mg PO Q6H PRN PRN Reason: Pain, Mild (Pain Scale 1-3) Atorvastatin Calcium (Atorvastatin Calcium 20 Mg Tablet) 20 mg PO DAILY COUNTS INCLUDE 234 BEDS AT [facility] Last Admin: 03/27/23 08:12 Dose: 20 mg Clopidogrel Bisulfate (Clopidogrel Bisulfate 75 Mg Tablet) 75 mg PO DAILY COUNTS INCLUDE 234 BEDS AT [facility] Last Admin: 03/27/23 08:12 Dose: 75 mg Dextrose (Dextrose 50 % 25 Gm/50 Ml Syringe) 25 gm IVPUSH Q15M PRN; Protocol PRN Reason: per Hypoglycemia Standing Ord. Docusate Sodium (Docusate Sodium 100 Mg Capsule) 100 mg PO DAILY PRN PRN Reason: Constipation Docusate Sodium (Docusate Sodium 100 Mg Capsule) 100 mg PO BID COUNTS INCLUDE 234 BEDS AT [facility] Last Admin: 03/27/23 08:13 Dose: 100 mg Escitalopram Oxalate (Escitalopram Oxalate 20 Mg Tablet) 20 mg PO DAILY COUNTS INCLUDE 234 BEDS AT [facility] Last Admin: 03/27/23 08:12 Dose: 20 mg Furosemide (Furosemide 40 Mg Tablet) 40 mg PO DAILY COUNTS INCLUDE 234 BEDS AT [facility]; Protocol Last Admin: 03/27/23 08:13 Dose: 40 mg Gabapentin (Gabapentin 100 Mg Capsule) 200 mg PO TID COUNTS INCLUDE 234 BEDS AT [facility] Last Admin: 03/27/23 08:12 Dose: 200 mg Glucose (Glucose Gel 15 Gm Gel..Gram.) 15 gm PO Q15M PRN; Protocol PRN Reason: per Hypoglycemia Standing Ord. Hydroxyzine HCl (Hydroxyzine Hcl 25 Mg Tablet) 25 mg PO Q6H PRN PRN Reason: Anxiety Ibuprofen (Ibuprofen 400 Mg Tablet) 400 mg PO Q4H PRN PRN Reason: Pain, Moderate(Pain Scale 4-6) Last Admin: 03/27/23 08:13 Dose: 400 mg Insulin Glargine (Insulin Glargine,Hum.Rec.Anlog 100 Unit/Ml 10 Ml Vial) 26 unit SUBCUT DAILY COUNTS INCLUDE 234 BEDS AT [facility] Last Admin: 03/27/23 08:11 Dose: 26 unit Insulin Human Lispro (Insulin Lispro 100 Unit/Ml 3 Ml Vial) 0 unit SUBCUT QIDACHS COUNTS INCLUDE 234 BEDS AT [facility]; Protocol Last Admin: 03/27/23 08:12 Dose: 2 unit Lactulose (Lactulose 20 Gm/30 Ml Solution) 20 gm PO TID COUNTS INCLUDE 234 BEDS AT [facility] Last Admin: 03/27/23 08:11 Dose: 20 gm Levothyroxine Sodium (Levothyroxine Sodium 25 Mcg Tablet) 25 mcg PO DAILY@0600 COUNTS INCLUDE 234 BEDS AT [facility] Last Admin: 03/27/23 06:14 Dose: 25 mcg Lidocaine (Lidocaine 4 % Patch Adh..Patch) 1 patch TRANSDERMA DAILY COUNTS INCLUDE 234 BEDS AT [facility]; Protocol Last Admin: 03/27/23 08:11 Dose: 1 patch Midodrine (Midodrine Hcl 10 Mg Tablet) 10 mg PO TIDAC COUNTS INCLUDE 234 BEDS AT [facility] Last Admin: 03/27/23 08:12 Dose: 10 mg Omeprazole (Omeprazole 20 Mg Capsule.Dr) 20 mg PO BID@0630,1630 COUNTS INCLUDE 234 BEDS AT [facility] Last Admin: 03/27/23 06:14 Dose: 20 mg Ondansetron HCl (Ondansetron Hcl 4 Mg/2 Ml Vial) 4 mg IVPUSH Q8H PRN PRN Reason: Nausea and Vomiting Pharmacy Consult (Consult Rx Perform Med Rec) 1 each MISCELLANE ONCE PRN PRN Reason: Consult order Polyethylene Glycol (Polyethylene Glycol 3350 17 Gm Powd.Pack) 17 gm PO BID COUNTS INCLUDE 234 BEDS AT [facility] Last Admin: 03/27/23 08:25 Dose: Not Given Potassium Chloride (Potassium Chloride Packet 20 Meq Packet) 20 meq PO DAILY COUNTS INCLUDE 234 BEDS AT [facility] Last Admin: 03/27/23 08:12 Dose: 20 meq Senna (Sennosides 8.6 Mg Tablet) 8.6 mg PO BEDTIME COUNTS INCLUDE 234 BEDS AT [facility] Last Admin: 03/26/23 20:52 Dose: 8.6 mg Sodium Chloride (0.9 % Sodium Chloride Flush 3 Ml Syringe) 3 ml IVFLUSH QSHIFT COUNTS INCLUDE 234 BEDS AT [facility] Last Admin: 03/27/23 08:13 Dose: 3 ml Spironolactone (Spironolactone 25 Mg Tablet) 50 mg PO DAILY COUNTS INCLUDE 234 BEDS AT [facility]; Protocol Last Admin: 03/27/23 08:12 Dose: 50 mg Tiotropium [place] (Tiotropium [place] 2.5 Mcg Inhaler) 2 puff INHALE RDAILY COUNTS INCLUDE 234 BEDS AT THE [facility] Last Admin: 03/27/23 07:29 Dose: 2 puff Trazodone HCl (Trazodone Hcl 100 Mg Tablet) 100 mg PO BEDTIME PRN PRN Reason: Insomnia Last Admin: 03/27/23 00:11 Dose: 100 mg Allergies Allergy/AdvReac Type Severity Reaction Status Date / Time aspirin Allergy Unknown Verified 03/13/23 18:25 bee pollen [bee stings] Allergy Unknown Verified 03/13/23 18:25 Penicillins Allergy Unknown Verified 03/13/23 18:25 Physical Exam Vital signs: Vital Signs Temp 98.7 F 03/27/23 07:26 Pulse 83 03/27/23 07:32 Resp 20 03/27/23 07:26 BP 134/61 03/27/23 07:26 Pulse Ox 92 03/27/23 07:26 O2 Del Method Room Air 03/27/23 07:26 Intake & Output 03/26/23 03/27/23 03/27/23 18:59 06:59 18:59 Intake Total 1150 / 1150 Balance 1150 / 1150 Intake: Intake, Oral Amount 250 / 250 Intake (Blood Product) Amount 700 / 700 Red Blood Cells (E0382) Unit 350 / 350 [id number] Red Blood Cells (E0382) Unit 350 / 350 [id number] Intake, IV Amount 200 / 200 0.9 % Sodium Chloride 100 ml @ 200 / 200 100 mls/hr IV ONCE ONE Rx#: [id number] Other: Number of Unmeasured Voids 3 Urine Bathroom Urine Color Yellow Last Bowel Movement 03/27/23 Stool Bathroom Stool Amount Moderate Stool Color Root Stool Consistency Soft Weight 73 kg Weight in Grams 21614 Weight 73 kg - Constitutional Present: no acute distress - Routine HEENT Exam Head: Present: normal inspection Eye: Present: PERRL, scleral icterus - Routine Neck Exam Absent: lymphadenopathy - Routine Respiratory Exam Present: CTAB. Absent: accessory muscle use - Routine Cardiovascular Exam Cardiovascular: Present: S1, S2 - Routine Abdominal Exam Present: organomegaly, soft - Routine Extremities Exam Present: pedal edema Hem/Onc Consult Result - Labs CBC & Chem 7: 03/27/23 07:14 03/27/23 07:14 Labs: Short CBC 03/27/23 Range/Units 07:14 WBC 2.8 L (4.8-10.8) X10*3/uL Hgb 7.5 L D (12.0-16.0) g/dl Hct 23.1 L D (37.0-47.0) % Plt Count 111 L (160-400) X10*3/uL BMP 03/27/23 07:14 Sodium 141 Potassium 3.5 Chloride 109 H Carbon Dioxide 26 BUN 19 H Creatinine 0.90 Calcium 8.2 L Liver Function 03/27/23 Range/Units 07:14 Total Bilirubin 7.7 H (0.0-1.0) mg/dL Direct Bilirubin 0.9 H (0.0-0.5) mg/dL AST 24 (5-31) U/L ALT 18 (0-31) U/L Alkaline Phosphatase 82 (39-117) U/L Albumin 2.6 L (3.5-5.0) g/dL Assessment and Plan Patient Active problem list reviewed?: Yes (1) Symptomatic anemia Status: Acute Assessment and plan: 1. This is a 72-year-old woman with longstanding history of liver cirrhosis secondary to chronic hepatitis-C presenting with acute hemolytic anemia. She has chronic pancytopenia but her last hemoglobin on 03/04/2023 was over 11 gram/dL. She received nitrofurantoin for UTI a few days prior to that in February. She developed progressive shortness of breath while hospitalized on M5, hematological workup shows reticulocytosis with unconjugated hyperbilirubinemia and mild iron deficiency. Hemolysis can be seen with liver cirrhosis but this sudden/acute drop is probably related to hemolysis or GI bleeding. I have submitted G6PD level, to be done on sample before blood transfusion. Patient does not appear cyanotic and does not have other symptoms of methemoglobinemia such as headache or lethargy. I am not sure when she last had GI/endoscopic evaluation to see if she has any variceal bleeding from her liver cirrhosis. She does not report any chronic or acute symptoms of GI blood loss. Cici test is negative. LDH was marginally elevated. No evidence of myelophthisic process such as TTP/HUS or DIC. Tick-borne illnesses is also possibility, panel testing is pending. If for bilirubin is coming down and her CBC stabilizes, no further intervention is necessary. I will follow with you, thank you for the referral. - Time Spent With Patient Time Spent with Patient (in minutes): 20
[2023-03-27 08:52] LABS: Fibrinogen 456 MG/DL (259-690); INTERNATIONAL NORM RATIO 1.2 (0.9-1.1); Prothrombin Time 14.8 SEC (11.1-13.3)
[2023-03-27 08:54] LABS: Partial Thromboplastin Time 33.8 SEC (26.0-36.4)
[2023-03-27 11:00] LABS: Glucose, Whole Blood 195 mg/dL (60-115)
[2023-03-27] MEDS: Acetaminophen 325 MG TABLET 650 MG PO ×2 (11:53→18:12)
--- NOTE | 2023-03-27 12:28 | MHC.CM.PN ---
Per [facility]ROSARIO [facility] plan is Jorge [facility]LLA(Contact/Becky @ [phone]) with [facility] for home Rehab services.DC appointments made are [facility] on 04/03/2023 @ 1:30 PM and PCP appointment with ALFONSO De La Rosa on 03/29/2023 @ 1:45 PM. This information has been forwarded to and CM will follow.
--- NOTE | 2023-03-27 13:16 | MHC.CM.PN ---
CM spoke with Patient's Daughter/HCP/Vicki @ [phone]; Vicki confirmed that Jorge BELLA is the plan for dc and CM should contact her just prior to dc . is agreeable to call Vicki with a clinical update. CM will follow.
--- NOTE | 2023-03-27 14:39 | HO.PM.IMPN ---
Subjective Subjective Date of Service: 03/27/23 Interval History: Seen and evaluated this morning Hb responded to transfusion, up to 7.5 SOB better today No reported bleeding Tolerating PO Review of Systems Review of Systems: Yes all other systems are reviewed and are negative Physical Exam Vital Signs: Vital Signs: Last Vital Signs Temp 98.2 F 03/27/23 11:03 Pulse 86 03/27/23 11:03 Resp 20 03/27/23 11:03 BP 125/58 L 03/27/23 11:03 Pulse Ox 94 03/27/23 11:03 O2 Del Method Room Air 03/27/23 11:03 Const: Other: Constitutional : Awake, interactive, not in distress Neck : Normal inspection, Supple Cardiovascular : RRR, no JVP, +2 lower extremity edema Respiratory : good bilateral air entry, basal fine crackles Gastrointestinal: soft, lax, Normal bowel sounds, no tenderness Skin : Warm, Dry Neurological : Alert & oriented x3, No focal deficit Objective Data Active Medications Acetaminophen (Acetaminophen 325 Mg Tablet) 650 mg PO Q6H PRN PRN Reason: Pain, Mild (Pain Scale 1-3) Last Admin: 03/27/23 11:53 Dose: 650 mg Documented By: MOSHE Atorvastatin Calcium (Atorvastatin Calcium 20 Mg Tablet) 20 mg PO DAILY [facility] Last Admin: 03/27/23 08:12 Dose: 20 mg Documented By: MOSHE Clopidogrel Bisulfate (Clopidogrel Bisulfate 75 Mg Tablet) 75 mg PO DAILY [facility] Last Admin: 03/27/23 08:12 Dose: 75 mg Documented By: MOSHE Dextrose (Dextrose 50 % 25 Gm/50 Ml Syringe) 25 gm IVPUSH Q15M PRN; Protocol PRN Reason: per Hypoglycemia Standing Ord. Docusate Sodium (Docusate Sodium 100 Mg Capsule) 100 mg PO DAILY PRN PRN Reason: Constipation Docusate Sodium (Docusate Sodium 100 Mg Capsule) 100 mg PO BID [facility] Last Admin: 03/27/23 08:13 Dose: 100 mg Documented By: MOSHE Escitalopram Oxalate (Escitalopram Oxalate 20 Mg Tablet) 20 mg PO DAILY [facility] Last Admin: 03/27/23 08:12 Dose: 20 mg Documented By: MOSHE Furosemide (Furosemide 40 Mg Tablet) 40 mg PO DAILY [facility]; Protocol Last Admin: 03/27/23 08:13 Dose: 40 mg Documented By: MOSHE Gabapentin (Gabapentin 100 Mg Capsule) 200 mg PO TID [facility] Last Admin: 03/27/23 08:12 Dose: 200 mg Documented By: MOSHE Glucose (Glucose Gel 15 Gm Gel..Gram.) 15 gm PO Q15M PRN; Protocol PRN Reason: per Hypoglycemia Standing Ord. Hydroxyzine HCl (Hydroxyzine Hcl 25 Mg Tablet) 25 mg PO Q6H PRN PRN Reason: Anxiety Ibuprofen (Ibuprofen 400 Mg Tablet) 400 mg PO Q4H PRN PRN Reason: Pain, Moderate(Pain Scale 4-6) Last Admin: 03/27/23 08:13 Dose: 400 mg Documented By: MOSHE Insulin Glargine (Insulin Glargine,Hum.Rec.Anlog 100 Unit/Ml 10 Ml Vial) 26 unit SUBCUT DAILY [facility] Last Admin: 03/27/23 08:11 Dose: 26 unit Documented By: MOSHE Insulin Human Lispro (Insulin Lispro 100 Unit/Ml 3 Ml Vial) 0 unit SUBCUT QIDACHS [facility]; Protocol Last Admin: 03/27/23 11:57 Dose: 2 unit Documented By: MOSHE Lactulose (Lactulose 20 Gm/30 Ml Solution) 20 gm PO TID [facility] Last Admin: 03/27/23 08:11 Dose: 20 gm Documented By: MOSHE Levothyroxine Sodium (Levothyroxine Sodium 25 Mcg Tablet) 25 mcg PO DAILY@0600 [facility] Last Admin: 03/27/23 06:14 Dose: 25 mcg Documented By: BOY Lidocaine (Lidocaine 4 % Patch Adh..Patch) 1 patch TRANSDERMA DAILY [facility]; Protocol Last Admin: 03/27/23 08:11 Dose: 1 patch Documented By: MOSHE Midodrine (Midodrine Hcl 10 Mg Tablet) 10 mg PO TIDAC [facility] Last Admin: 03/27/23 11:57 Dose: 10 mg Documented By: MOSHE Omeprazole (Omeprazole 20 Mg Capsule.Dr) 20 mg PO BID@0630,1630 [facility] Last Admin: 03/27/23 06:14 Dose: 20 mg Documented By: BOY Ondansetron HCl (Ondansetron Hcl 4 Mg/2 Ml Vial) 4 mg IVPUSH Q8H PRN PRN Reason: Nausea and Vomiting Pharmacy Consult (Consult Rx Perform Med Rec) 1 each MISCELLANE ONCE PRN PRN Reason: Consult order Polyethylene Glycol (Polyethylene Glycol 3350 17 Gm Powd.Pack) 17 gm PO BID [facility] Last Admin: 03/27/23 08:25 Dose: Not Given Documented By: MOSHE Non-Admin Reason: Patient Refused Potassium Chloride (Potassium Chloride Packet 20 Meq Packet) 20 meq PO DAILY [facility] Last Admin: 03/27/23 08:12 Dose: 20 meq Documented By: MOSHE Senna (Sennosides 8.6 Mg Tablet) 8.6 mg PO BEDTIME [facility] Last Admin: 03/26/23 20:52 Dose: 8.6 mg Documented By: IRASEMA Sodium Chloride (0.9 % Sodium Chloride Flush 3 Ml Syringe) 3 ml IVFLUSH QSHIFT [facility] Last Admin: 03/27/23 08:13 Dose: 3 ml Documented By: MOSHE Spironolactone (Spironolactone 25 Mg Tablet) 50 mg PO DAILY [facility]; Protocol Last Admin: 03/27/23 08:12 Dose: 50 mg Documented By: MOSHE Tiotropium [place] (Tiotropium [place] 2.5 Mcg Inhaler) 2 puff INHALE RDAILY [facility] Last Admin: 03/27/23 07:29 Dose: 2 puff Documented By: MANUEL Trazodone HCl (Trazodone Hcl 100 Mg Tablet) 100 mg PO BEDTIME PRN PRN Reason: Insomnia Last Admin: 03/27/23 00:11 Dose: 100 mg Documented By: BOY Labs 03/27/23 07:14 03/27/23 07:14 Labs: Laboratory Results - last 24 hr 03/26/23 03/26/23 03/26/23 17:14 17:19 20:05 MCV MCH MCHC RDW Plt Count MPV Immature Gran % (Auto) Neut % (Auto) Lymph % (Auto) [place] % (Auto) Eos % (Auto) Baso % (Auto) Lymph # (Auto) [place] # (Auto) Eos # (Auto) Baso # (Auto) Abs Immat Gran (auto) Absolute Neuts (auto) Absolute Nucleated RBC Nucleated RBC % (auto) Absolute Retic Percent Retic Immature Retic Fraction Retic Hgb Equivalent PT INR APTT Fibrinogen Anion Gap Estim Creat Clear Calc Estimated GFR POC Glucose 163 H 239 H Random Glucose Calcium Total Bilirubin Direct Bilirubin AST ALT Alkaline Phosphatase Lactate Dehydrogenase Total Protein Albumin Stool Occult Blood Leuk/Lym Interpretation Blood Type O Positive Antibody Screen NEGATIVE FERNANDA, Polyspecific NEGATIVE Positive FERNANDA Work-up TNP Crossmatch See Detail 03/27/23 03/27/23 03/27/23 07:01 07:14 07:14 MCV 91.3 MCH 29.6 MCHC 32.5 RDW 14.6 Plt Count 111 L MPV 11.2 Immature Gran % (Auto) 0.4 Neut % (Auto) 57.3 Lymph % (Auto) 22.5 [place] % (Auto) 14.1 H Eos % (Auto) 4.3 H Baso % (Auto) 1.4 Lymph # (Auto) 0.6 L [place] # (Auto) 0.4 Eos # (Auto) 0.1 Baso # (Auto) 0.0 Abs Immat Gran (auto) 0.01 Absolute Neuts (auto) 1.6 L Absolute Nucleated RBC 0.000 Nucleated RBC % (auto) 0.0 Absolute Retic Percent Retic Immature Retic Fraction Retic Hgb Equivalent PT INR APTT Fibrinogen Anion Gap 10 L Estim Creat Clear Calc 49.8 Estimated GFR > 60 POC Glucose 198 H Random Glucose 210 H Calcium 8.2 L Total Bilirubin Direct Bilirubin AST ALT Alkaline Phosphatase Lactate Dehydrogenase Total Protein Albumin Stool Occult Blood Leuk/Lym Interpretation Blood Type Antibody Screen FERNANDA, Polyspecific Positive FERNANDA Work-up Crossmatch 03/27/23 03/27/23 03/27/23 07:14 07:14 07:14 MCV MCH MCHC RDW Plt Count MPV Immature Gran % (Auto) Neut % (Auto) Lymph % (Auto) [place] % (Auto) Eos % (Auto) Baso % (Auto) Lymph # (Auto) [place] # (Auto) Eos # (Auto) Baso # (Auto) Abs Immat Gran (auto) Absolute Neuts (auto) Absolute Nucleated RBC Nucleated RBC % (auto) Absolute Retic 0.119 H Percent Retic 4.6 H Immature Retic Fraction 18.8 H Retic Hgb Equivalent 21.3 L PT INR APTT Fibrinogen Anion Gap Estim Creat Clear Calc Estimated GFR POC Glucose Random Glucose Calcium Total Bilirubin 7.7 H Direct Bilirubin 0.9 H AST 24 ALT 18 Alkaline Phosphatase 82 Lactate Dehydrogenase 210 Total Protein 4.9 L Albumin 2.6 L Stool Occult Blood Leuk/Lym Interpretation Cancelled Blood Type Antibody Screen FERNANDA, Polyspecific Positive FERNANDA Work-up Crossmatch 03/27/23 03/27/23 03/27/23 08:16 08:20 10:57 MCV MCH MCHC RDW Plt Count MPV Immature Gran % (Auto) Neut % (Auto) Lymph % (Auto) [place] % (Auto) Eos % (Auto) Baso % (Auto) Lymph # (Auto) [place] # (Auto) Eos # (Auto) Baso # (Auto) Abs Immat Gran (auto) Absolute Neuts (auto) Absolute Nucleated RBC Nucleated RBC % (auto) Absolute Retic Percent Retic Immature Retic Fraction Retic Hgb Equivalent PT 14.8 H INR 1.2 H APTT 33.8 Fibrinogen 456 Anion Gap Estim Creat Clear Calc Estimated GFR POC Glucose 195 H Random Glucose Calcium Total Bilirubin Direct Bilirubin AST ALT Alkaline Phosphatase Lactate Dehydrogenase Total Protein Albumin Stool Occult Blood POSITIVE Leuk/Lym Interpretation Blood Type Antibody Screen FERNANDA, Polyspecific Positive FERNANDA Work-up Crossmatch Assessment and Plan (1) Symptomatic anemia: Status: Acute (2) Pancytopenia: Status: Acute (3) Acute on chronic blood loss anemia: Status: Acute Plan 72-year-old female with history of 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 #Severe symptomatic anemia with pancytopenia etiology unclear: seems a mixed picture of hemolysis and blood loss anemia or 2/2 medications Improved to 7.5 after 2 units transfusion +ve Stool occult blood elevated indirect bili Low iron stores, LDH normal, haptoglobin pending Tick panel pending Hold Nitrofurantoin, GI consult Hematology consult splenic doppler and liver u/s monitor on telemetry Start IV Ceftriaxone for possible variceal bleed in patient w ascites Discussed with HCP who reported that she has been off Plavix for over a year now. will DC for now. #Unspecified CHF CXR shows R pleural effusion, but BNP stable Continue oral lasix #HTN continue oral antihypertensives # hypothyroidism continue Synthroid # asthma/COPD overlap no acute exacerbation albuterol p.r.n., continue home inhalers # GERD continue PPI # hepatic cirrhosis with ascites continue Lasix and spironolactone # mood disorder hold olanzapine given pancytopenia consider Psychiatry consult # type 2 diabetes, insulin dependent-with hyperglycemia dose adjusted basal insulin Humalog on sliding scale diabetic diet POC glucose DVT prophylaxis-SCP full code Pt has dispo previously set up on psychiatry to go to assisted living on dc Time Spent With Patient Time: Total time managing care of this patient today ____ minutes. Quality Stroke Does the patient have a stroke diagnosis?: No VTE Prior VTE?: No VTE Risk Level:: Medical - moderate - high VTE Device Contraindication: Treatment Not Indicated VTE Drug Contraindication: N/A - Med Ordered
[2023-03-27] MEDS: cefTRIAXone sodium 2 GM in 0.9 % Sodium Chloride 50 ML IV (15:40)
[2023-03-27 16:04] LABS: Glucose, Whole Blood 135 mg/dL (60-115)
--- NOTE | 2023-03-27 19:38 | PM.EVENT ---
Event Note Date of Service: 03/27/23 Event Note: GI Consult-Full note dictated. History via patient, EMR, and office notes Imp/Recs: Cirrhosis due to previous Hep C that is s/p successful treatment with Harvoni in 2014. She has had ascites for which she is s/p a TIPS and nonbleeding esophageal varices for which she is s/p banding at [place]. She is s/p her most recent EGD and colonoscopy in 2021 at [place]. She is presently being followed at [facility] in [place] [facility] as well. She presently denies any GI symptoms and denies any signs of GI bleeding. She denies using any aspirin, NSAIDs, alcohol, nor tobacco. She has not had any encephalopathy. Overall, her liver disease appears stable. I don't think her anemia is related to any acute GI bleeding. This appears c/w a hemolytic anemia, as well as a general pancytopenia in relation to her cirrhosis and hypersplenism. She has already been seen by Dr. Knutson. I don't think she requires an upper endoscopy nor colonoscopy at this time. I would continue supportive care, transfusions as needed, diet as tolerated, and PPI therapy. D/W patient in detail. Please advise me if I can be of further assistance. Thanks Time Spent With Patient Time: Total time managing care of this patient today ____ minutes.
[2023-03-27 21:18] LABS: Glucose, Whole Blood 154 mg/dL (60-115)
[2023-03-27] MEDS: Sennosides 8.6 MG TABLET PO (21:32)
[2023-03-27] MEDS: polyethylene glycoL 3350 17 GM POWD.PACK PO (21:32)
[2023-03-28] MEDS: Acetaminophen 325 MG TABLET 650 MG PO (00:18)
[2023-03-28] MEDS: 0.9 % Sodium Chloride Flush 3 ML SYRINGE IVFLUSH ×2 (00:21→09:25)
--- NOTE | 2023-03-28 03:29 | CONS_ITS ---
DATE OF SERVICE: 03/27/2023 REASON FOR CONSULTATION: Cirrhosis and anemia. HISTORY OF PRESENT ILLNESS: This has been obtained from the patient and the medical record. The patient is a 72-year-old female well known to me from previous office visits with an underlying history of cirrhosis in relation to previous hepatitis C. I last saw the patient in December 2021. I treated her for her hepatitis C with a 6-month course of Harvoni in 2014. She had subsequent nondetectable hepatitis C viral loads. She does have cirrhosis with previous documentation of esophageal varices and ascites. She is presently being followed at [facility] with Dr. Da Silva in their Liver Transplant Clinic. She has had previous paracenteses for her ascites. She has not had any definitive history of GI bleeding nor encephalopathy. She was admitted here due to the finding of significant anemia with a hemoglobin of 5.5 yesterday as well as a white blood cell count of only 1.8 and a platelet count of 98,000. The patient was actually admitted to the Psych Unit but then transferred to the Medical Unit due to the anemia. The patient reports feeling tired at home, but denies any symptoms such as melena, hematochezia, diarrhea, nor vomiting. She denies any significant heartburn, abdominal pain, nor dysphagia. She has not been using any aspirin nor NSAIDs. She is on clopidogrel. Her workup here in the hospital seems to indicate some type of hemolytic anemia and she has been seen by Dr. Knutson for that. There has been no sign of bleeding here in the hospital other than the finding of heme-positive stool. She has had numerous GI procedures at [facility] with [facility] as well. Her most recent colonoscopy in October 2021 was unremarkable. Her most recent upper endoscopy in October 2021 at [place] revealed only small distal esophageal varices with some scarring from previous banding. She also had a negative colonoscopy in 2014 at [facility]. Other upper endoscopies have also revealed some gastric angiodysplasias. PRESENT MEDICATIONS: Include acetaminophen, atorvastatin, IV ceftriaxone, Colace, Lexapro, Lasix, gabapentin, Atarax p.r.n., insulin, lactulose, levothyroxine, lidocaine patch, midodrine, omeprazole, MiraLax, potassium, Senokot, spironolactone, and trazodone. PAST MEDICAL HISTORY: Cirrhosis in relation to hepatitis C with associated history of ascites and nonbleeding esophageal varices. She describes placement of a TIPS last year for relief of ascites, which she reports has worked well. She has had numerous colonoscopies and upper endoscopies with most recent ones in 2021 not revealing any significant findings. Surgeries have included hand surgery, cataract surgery, cholecystectomy, hemorrhoid surgery, knee surgery, removal of ovaries and fallopian tubes. Her medical issues include the above-mentioned cirrhosis, headaches, hypertension, asthma, depression, osteoporosis, COPD, Hypothyroidism, Congestive heart failure, and Depression. SOCIAL HISTORY: She presently does not smoke, nor use any alcohol. She is single. REVIEW OF SYSTEMS: CONSTITUTIONAL: She had been feeling weak. SKIN: No pruritus. CARDIAC: No chest pain. PULMONARY: No coughing or hemoptysis. GI: As above. URINARY: No dysuria, no hematuria. NEUROLOGIC: No headache or seizures. PSYCHIATRIC: As above. PHYSICAL EXAMINATION: GENERAL: The patient is a pleasant alert comfortable-appearing female in no distress. SKIN: Warm and dry. HEENT: Anicteric sclerae NECK: Supple. CHEST: Clear. CARDIAC: Normal S1, S2. ABDOMEN: Soft, nontender, and perhaps distended a little bit with ascites. There is no mass, rebound, or guarding. NEUROLOGIC: She seems to be alert and oriented without any sign of asterixis. LABORATORY DATA: Initial hemoglobin 5.5, which came up to 7.5 today. White blood cell count 2.8. Platelets 111,000. PT 14.8 with INR 1.2. Normal electrolytes. BUN 19, creatinine 0.9. Total bilirubin 7.7 with a direct bilirubin of only 0.9. AST 24, ALT 18, alkaline phosphatase 82, LDH 210, albumin 2.6. Stool was heme positive. She did have an abdominal ultrasound, the report of which is pending. Her chest x-ray describes some cardiomegaly with increased interstitial markings. IMPRESSION: In regard to the patient's anemia, I do not think this is primarily related to a GI tract source of blood loss. She does have heme-positive stool, but there has been no obvious evidence of melena nor any sign of upper GI bleeding such as hematemesis. At this point, given all of her previous exams, with the most recent ones just back in 2021, I would be inclined to hold off on an endoscopy or a colonoscopy at this time. I would continue empiric treatment with omeprazole and avoid any aspirin or NSAIDs. She is getting transfused. I would continue that as needed. Certainly if she shows evidence of active GI bleeding, we could always re-evaluate her for endoscopy and/or colonoscopy. However, at this point, I think the yield on those would be quite low given all of her recent exams and her clinical history. Her liver disease otherwise appears to be fairly stable without any sign of encephalopathy, worsening ascites, GI bleeding, nor obvious hepatic encephalopathy. As such, I would not make any particular intervention in this regard and I did advise to be sure to follow up with her physicians at [facility] liver Transplant Clinic. At this point, I will see her again in the hospital on an as-needed basis. Please do not hesitate to contact me if I can be of any further assistance. MD LING Aquino/ABDIRASHID / [id number] ROSSY
[2023-03-28 03:45] VITALS: BP 109/60; PULSE 80; RESP 20; TEMP 36.4; O2SAT 93
[2023-03-28] MEDS: Omeprazole 20 MG CAPSULE.DR PO (05:38)
[2023-03-28] MEDS: Levothyroxine Sodium 25 MCG TABLET PO (05:39)
[2023-03-28] MEDS: Albuterol/Iprat 2.5/0.5MG 3 ML AMPUL.NEB INHALE (06:05)
[2023-03-28 06:07] VITALS: PULSE 80; RESP 20; O2SAT 93
[2023-03-28 07:01] LABS: Hematocrit 27.6 % (37.0-47.0); Hemoglobin 8.9 g/dl (12.0-16.0); INTERNATIONAL NORM RATIO 1.3 (0.9-1.1); Mean Corpuscular HGB Conc 32.2 g/dl (31.0-35.0); Mean Corpuscular Hemoglobin 29.3 pg (27.0-33.0); Mean Corpuscular Volume 90.8 fL (80.0-98.0); Mean Platelet Volume 10.8 fL (9.4-12.3); Platelet Count 123 X10*3/uL (160-400); Red Blood Count 3.04 X10*6/uL (4.20-5.50); Red Cell Distribution Width 14.7 % (11.0-16.0); White Blood Count 2.8 X10*3/uL (4.8-10.8)
[2023-03-28 07:10] LABS: Glucose, Whole Blood 212 mg/dL (60-115)
[2023-03-28 07:15] VITALS: BP 148/43; PULSE 84; RESP 20; TEMP 36.7; O2SAT 95
[2023-03-28 07:16] LABS: Alanine Aminotransferase 18 U/L (0-31); Albumin Level 2.7 g/dL (3.5-5.0); Alkaline Phosphatase 84 U/L (39-117); Anion Gap 11 (12-20); Aspartate Amino Transferase 25 U/L (5-31); Bilirubin Direct 0.9 mg/dL (0.0-0.5); Bilirubin Total 4.2 mg/dL (0.0-1.0); Blood Urea Nitrogen 19 mg/dL (9-16); Calcium 8.6 mg/dL (8.4-10.2); Carbon Dioxide 25 mmol/L (22-29); Chloride 110 mmol/L (96-108); Creatinine Clr Calc Pharmacy 55.4; Estimated Glomerular Filt Rate > 60; Glucose Random 188 mg/dL (60-115); Potassium 3.6 mmol/L (3.3-5.1); Sodium 142 mmol/L (135-145); Total Protein 5.1 g/dL (6.5-8.0)
[2023-03-28 07:31] VITALS: PULSE 86; RESP 18; O2SAT 94
[2023-03-28] MEDS: Escitalopram Oxalate 20 MG TABLET PO (09:22)
[2023-03-28] MEDS: Lactulose 20 GM/30 ML SOLUTION PO (09:22)
[2023-03-28] MEDS: Midodrine HCl 10 MG TABLET PO (09:22)
[2023-03-28] MEDS: Atorvastatin Calcium 20 MG TABLET PO (09:23)
[2023-03-28] MEDS: Insulin Glargine,Hum.rec.anlog 100 UNIT/ML 10 ML VIAL 26 UNIT SUBCUT (09:23)
[2023-03-28] MEDS: Gabapentin 100 MG CAPSULE 200 MG PO (09:23)
[2023-03-28] MEDS: Docusate Sodium 100 MG CAPSULE PO (09:23)
[2023-03-28] MEDS: Potassium Chloride Packet 20 MEQ PACKET PO (09:23)
[2023-03-28] MEDS: Lidocaine 4 % Patch ADH..PATCH 1 PATCH TRANSDERMA (09:24)
[2023-03-28] MEDS: Insulin Lispro 100 UNIT/ML 3 ML VIAL SUBCUT (09:24)
[2023-03-28] MEDS: polyethylene glycoL 3350 17 GM POWD.PACK PO (09:40)
[2023-03-28] MEDS: Spironolactone 25 MG TABLET 50 MG PO (09:44)
--- NOTE | 2023-03-28 10:55 | MHC.CM.PN ---
Patient has been medically cleared for dc today to [facility] and new [facility] for PT/OT; a referral has been made to [facility](with [facility] CM/Nasreen's approval). CM met with Patient, who was changed to INPATIENT today and addressed IMM with her, providing Patient with the original and placing a copy on the chart. CHOCO coordinated dc with Becky from [facility] @ [phone]. Patient's Daughter/HCP/Vicki will provide transport to [facility].
--- NOTE | 2023-03-28 10:56 | P.F2F_ITS ---
Service Date Service Date: 03/28/23 Encounter Date of encounter: 03/28/23 Reasons for Services Signs and symptoms assessed: physical deconditioning Reason for physical therapy: home safety and mobility and therapeutic exercises Reason for occupational therapy: home safety and mobility and therapeutic exercises Homebound: Leaving the home is medically contraindicated at this time without the asist of a device and/or another person due th the listed conditions above and below. Reason homebound: weakness related to hospital stay Certification: Based on the above findings, I certify that this patient is confined to the home and needs intermittent penitentiary care, physical therapy and/or speech therapy, or continues to need occupational therapy. The patient is under my care, and I have initiated the establishment of the plan of care. The patient will be followed by a physician who will periodically review the plan of care. Time Spent With Patient Time: Total time managing care of this patient today ____ minutes.
--- NOTE | 2023-03-28 10:56 | PM.DS ---
DS: Providers Provider Date of Service: 03/29/23 Date of admission: 03/28/23 07:43 Primary care physician: Wnisome De La Rosa NP Consults: 03/26/23 16:24 Consult to Hematology / Oncology Routine Consulting Provider: Minh Singleton Reason for consultation: symptomatic anemia, pancytopenia 03/27/23 08:46 Consult to Gastroenterology Routine Consulting Provider: Sanket Garcia Reason for consultation: acute anemia in cirrhotic patient for your kind eval and rec 03/28/23 09:45 Consult to Psychiatry Routine Consulting Provider: Psych Covering Reason for consultation: Pancytopenia. Eval Olanzapine usage DS: Diagnosis Discharge Diagnosis (1) Symptomatic anemia: Status: Acute (2) Hemolytic anemia: Status: Acute (3) Pancytopenia: Status: Acute DS: Summary Hospital Course Hospital Course: Admission note HPI 72-year-old female with history of hepatic cirrhosis secondary to hepatitis-C with cirrhosis, congestive heart failure, hypertension, hypothyroidism, COPD, GERD, chronic constipation, insulin-dependent type 2 diabetes, and depression previously admitted to Geriatric Psychiatry now being admitted to hospitalist service for further management of symptomatic anemia pancytopenia of unclear etiology.? He has been experiencing dyspnea on exertion, fatigue, and weakness for several days.? She was evaluated by my colleague several days ago and symptoms were thought to be related to congestive heart failure as chest x-ray did show increased pulmonary vascular congestion and she had been only taking half of her home dose of Lasix.? Lasix was increased with minimal improvement.? She continues to experience bilateral lower extremity edema and fatigue has worsened.? She now has nonproductive cough and continues with dyspnea on exertion.? Upon evaluation in Geriatric Psychiatry, labs were ordered significant for white blood cell count of 1.8, red blood cell count of 1.87, hemoglobin 5.5 (03/04 at [facility] was 11.2), hematocrit 16.9%, MCV 90 0.4%.? Labs were repeated for accuracy and were consistent with these findings.? Platelet levels at 98.? Peripheral smear is pending.? Haptoglobin pending.? LDH 223.? Iron level of 223, TIBC 250, iron saturation 9%. Unclear chronicity of iron deficiency. Vitals stable, with intermittent mild tachypnea, without hypotension. Pt has not had fevers, chills, denies abd pain, nausea, vomiting, epistaxis, melena, hematochezia, diarrhea, constipation, hemoptysis, or chest pain. Pt will be admitted to hospitalist service for further management and workup of symptomatic anemia and pancytopenia. Hospital course Admitted for Severe symptomatic anemia with pancytopenia with Hb of 5.5 of new onset as her recent labs last month were acceptable. received total of 3 units of blood with good response as Hb improved to 8.8 at day of discharge. evaluated by crusher machine operator dr Knutson who believes her symptoms are related to hemolysis with elevated indirect bilirubin, Low iron stores, LDH normal, haptoglobin pending and negative Tick panel as she was recently on Nitrofurantoin for urine infection which is likely the cause of hemolysis. splenic doppler and liver u/s were done showing patent tips and 2 small liver lesions. Discussed with HCP who reported that she has been off Plavix for over a year now. will DC at time of discharge. She was seen by dr Garcia from GI as she had +ve occult stool but no overt bleeding or melena who did not think an EGD is needed at this point as her blood level drop related to hemolysis and to continue PPI. Discussed the possibility of Olanzapine causing pancytopenia with hematology and psychiatry. reported low risk specially that the patient developed hemolytic anemia. will continue Olanzapine at discharge and recheck labs next week to evaluate for any possible effect. Labs to be followed by Dr Knutson from hematology. She was noted on CXR to have pleural effusion with normal BNP. Likely anasarca related to cirrhosis. received IV lasix and was able to ambulate on room air with no dyspnea. To continue with oral lasix. advised of low sodium diet. She will need an outpatient MRI to evaluate 2 hyperechoic lesions seen on US in right hepatic lobe. Stop Ibuprofen Low sodium diet Start Iron supplement for 1 month To repeat blood test next week Follow with psychiatry as outpatient Time Spent with Patient Time attestation: Total time managing care of this patient today ____ minutes. Discharge coordination time: Greater than 30 minutes Quality: Safe Use of Opioids Does Pt have an Active Cancer Diagnosis on the Problem List?: No Quality: Stroke Does the patient have a stroke diagnosis?: No Physical Exam Vital Signs: Vital Signs: Last Vital Signs Temp 98.1 F 03/28/23 07:15 Pulse 86 03/28/23 07:31 Resp 18 03/28/23 07:31 BP 148/43 H 03/28/23 07:15 Pulse Ox 95 03/28/23 07:15 O2 Del Method Room Air 03/28/23 07:15 Const: Other: Constitutional : Awake, interactive, not in distress Neck : Normal inspection, Supple Cardiovascular : RRR, no JVP, +1 lower extremity edema Respiratory : good bilateral air entry, basal fine crackles Gastrointestinal: soft, lax, Normal bowel sounds, no tenderness Skin : Warm, Dry Neurological : Alert & oriented x3, No focal deficit DS: Data Data Completed and Pending Labs on day of discharge: Laboratory Results - last 24 hr 03/26/23 03/27/23 03/27/23 17:14 10:57 15:55 WBC RBC Hgb Hct MCV MCH MCHC RDW Plt Count MPV Absolute Nucleated RBC Nucleated RBC % (auto) PT INR Sodium Potassium Chloride Carbon Dioxide Anion Gap BUN Creatinine Estim Creat Clear Calc Estimated GFR POC Glucose 195 H 135 H Random Glucose Calcium Total Bilirubin Direct Bilirubin AST ALT Alkaline Phosphatase Total Protein Albumin Blood Type O Positive Antibody Screen NEGATIVE FERNANDA, Polyspecific NEGATIVE Positive FERNANDA Work-up TNP Crossmatch See Detail 03/27/23 03/28/23 03/28/23 21:03 06:08 06:08 WBC 2.8 L RBC 3.04 L D Hgb 8.9 L Hct 27.6 L MCV 90.8 MCH 29.3 MCHC 32.2 RDW 14.7 Plt Count 123 L MPV 10.8 Absolute Nucleated RBC 0.000 Nucleated RBC % (auto) 0.0 PT INR Sodium 142 Potassium 3.6 Chloride 110 H Carbon Dioxide 25 Anion Gap 11 L BUN 19 H Creatinine 0.81 Estim Creat Clear Calc 55.4 Estimated GFR > 60 POC Glucose 154 H Random Glucose 188 H Calcium 8.6 Total Bilirubin 4.2 H Direct Bilirubin 0.9 H AST 25 ALT 18 Alkaline Phosphatase 84 Total Protein 5.1 L Albumin 2.7 L Blood Type Antibody Screen FERNANDA, Polyspecific Positive FERNANDA Work-up Crossmatch 03/28/23 03/28/23 03/28/23 06:08 06:08 07:01 WBC RBC Hgb Hct MCV MCH MCHC RDW Plt Count MPV Absolute Nucleated RBC Nucleated RBC % (auto) PT 16.0 H INR 1.3 H Sodium Potassium Chloride Carbon Dioxide Anion Gap BUN Creatinine Estim Creat Clear Calc Estimated GFR POC Glucose 212 H Random Glucose Calcium Total Bilirubin Cancelled Direct Bilirubin Cancelled AST Cancelled ALT Cancelled Alkaline Phosphatase Cancelled Total Protein Cancelled Albumin Cancelled Blood Type Antibody Screen FERNANDA, Polyspecific Positive FERNANDA Work-up Crossmatch Imaging Chest x-ray: Radiologist's impression: ITS Impressions Abdomen Ultrasound 03/26/23 19:12 IMPRESSION: 1. There is generalized increase in hepatic echotexture, consistent with the patient's history of cirrhosis. 2. There is interim appearance within the right hepatic lobe of 1.7 cm and 2.8 cm in maximal diameter hyperechoic lesions. These are indeterminate, the possibility of neoplastic lesion is not excluded. Recommend further evaluation with ultrasound or MRI. 3. There is a patent TIPS shunt. 4. There is borderline splenomegaly. 5. The gallbladder surgically absent. 6. A right pleural effusion is noted. Discharge Plan Discharge Anticipated Discharge Date/Time: 03/28/23 10:46 Patient Disposition: Home Health Service Discharge Diagnosis: Acute on chronic anemia Pancytopenia Referrals: [facility] [Other] - 1 Week Winsome De La Rosa MACHINE SETTER [Primary Care Provider] - 1 Week Discharge Medications: New ferrous sulfate 325 mg (65 mg iron) tablet 325 mg PO DAILY Qty: 30 0RF Continued furosemide 40 mg Tablet 40 mg PO DAILY 30 Days Qty: 30 0RF Protocol: Hold for SBP< HOLD for SBP < : 90 olanzapine 5 mg Tablet 5 mg PO DAILY 30 Days Qty: 30 0RF trazodone 100 mg Tablet 100 mg PO BEDTIME PRN (Reason: Insomnia) 30 Days Qty: 30 0RF hydroxyzine HCl 25 mg Tablet 25 mg PO Q6H PRN (Reason: Anxiety) 30 Days Qty: 60 0RF lactulose 20 gram/30 mL Solution 20 g PO TID 30 Days Qty: 2700 0RF polyethylene glycol 3350 17 gram Powder In Packet 17 g PO BID Qty: 60 0RF sennosides [Senna Lax] 8.6 mg Tablet 8.6 mg PO BEDTIME Qty: 30 0RF lidocaine [Lidocaine Pain Relief] 4 % Adhesive Patch,Medicated 1 patch transdermal DAILY 30 Days Qty: 30 0RF Protocol: Apply to: Apply to: knee levothyroxine 25 mcg Tablet 25 mcg PO DAILY 30 Days Qty: 30 0RF potassium chloride 20 mEq Packet 20 meq PO DAILY 30 Days Qty: 30 0RF insulin aspart U-100 [Novolog U-100 Insulin aspart] 100 unit/mL Solution 1 sliding scale dose SUBCUT TID Qty: 10 0RF pantoprazole 40 mg Tablet,Delayed Release (Dr/Ec) 40 mg PO BID 30 Days Qty: 60 0RF docusate sodium 100 mg Capsule 100 mg PO BID Qty: 60 0RF gabapentin 100 mg Capsule 200 mg PO TID 30 Days Qty: 180 0RF spironolactone 50 mg Tablet 50 mg PO DAILY 30 Days Qty: 30 0RF midodrine 10 mg Tablet 10 mg PO TID 30 Days Qty: 90 0RF Rx Instructions: do not give last dose of day after 6PM or within 4 hrs of bedtime escitalopram oxalate 20 mg Tablet 20 mg PO DAILY 30 Days Qty: 30 0RF rosuvastatin 5 mg Tablet 5 mg PO DAILY 30 Days Qty: 30 0RF insulin glargine [Lantus Solostar U-100 Insulin] 100 unit/mL (3 mL) Insulin Pen 34 unit SUBCUT DAILY 30 Days Qty: 10.2 0RF trospium 60 mg Capsule,Extended Release 24hr 60 mg PO 1XD 30 Days Qty: 30 0RF Incruse Ellipta 62.5 mcg/actuation Blister With Device 1 inh INHALATION DAILY Qty: 30 0RF Discontinued ibuprofen 400 mg Tablet 400 mg PO Q4H PRN (Reason: Pain, Moderate(Pain Scale 4-6)) 30 Days Qty: 60 0RF clopidogrel 75 mg Tablet 75 mg PO DAILY 30 Days Qty: 30 0RF Discharge Orders: Discharge Order (Routine); Ordered 03/28/23 Ordered By: Morgan George Diet: Advance to usual diet Activity on Discharge: As tolerated Stand Alone Forms: Patient Portal Discharge page Other Ambulatory Orders: Complete Blood Count Auto Diff (Routine) Timeframe: 4 Days Facility: [facility] - Location: Laboratory Ordered By: Morgan George Liver Panel (Routine) Timeframe: 4 Days Facility: [facility] - Location: Laboratory Ordered By: Morgan George Care Plan Goals: Read below Health Concerns: Read below Plan of Treatment: Read below Assessment: Evaluated for drop in your blood level. required blood transfusion with good response. evaluated by Licensed Massage Therapist and repair cameraman who recommended no intervention as hemolysis markers improved. believed to be a result of antibiotic usage. Stop Ibuprofen Low sodium diet Start Iron supplement for 1 month To repeat blood test next week Follow with psychiatry as outpatient Discharge Date/Time: 03/28/23 13:08
--- NOTE | 2023-03-28 11:04 | MHC.CM.PN ---
Per Nasreen from [facility], [facility] will provide home PT/OT; referral to [facility] has been canceled.
--- NOTE | 2023-03-28 11:07 | MHC.CM.PN ---
DC Summary has been faxed to Becky @ [facility] @ [phone].
== END 2023-03-28 13:08 | disposition home health service (06) | DRG 809 ==
PROVIDERS: Internal Medicine; Admitting Provider Physician Assistant; PCP Nurse Practitioner Family; Visit Provider Student in an Organized Health Care Education/Training Program
DX: D61.818 Other pancytopenia (principal); R18.8 Other ascites; K74.69 Other cirrhosis of liver; E03.9 Hypothyroidism, unspecified; J44.9 Chronic obstructive pulmonary disease, unspecified; I11.0 Hypertensive heart disease with heart failure; E11.65 Type 2 diabetes mellitus with hyperglycemia; D62 Acute posthemorrhagic anemia; B18.2 Chronic viral hepatitis C; I50.9 Heart failure, unspecified; F39 Unspecified mood [affective] disorder; D58.9 Hereditary hemolytic anemia, unspecified; K21.9 Gastro-esophageal reflux disease without esophagitis; Z87.891 Personal history of nicotine dependence; Z79.4 Long term (current) use of insulin; Z79.890 Hormone replacement therapy; Z79.899 Other long term (current) drug therapy
CPT/HCPCS: 36415; 76700; 80048; 80076; 82272; 82947; 83615; 85025; 85027; 85045; 85384; 85610; 85730; 86850; 86880; 86900; 86901; 86923; 88185; 94640; J0696; J1940; P9016

== ENCOUNTER → 2023-03-26 16:44 | Outpatient (BNV) | payer OTHER, SELFPAY | PROVIDERS: Admitting Provider Physician Assistant; PCP Nurse Practitioner Family; Visit Provider Internal Medicine | DX: D64.9 Anemia, unspecified (principal) | CPT/HCPCS: 99222 ==

== ENCOUNTER → 2023-03-26 16:44 | Outpatient (BNV) | payer OTHER, SELFPAY | PROVIDERS: Admitting Provider Physician Assistant; Visit Provider Physician Assistant | DX: D64.9 Anemia, unspecified (principal); D58.9 Hereditary hemolytic anemia, unspecified; D61.818 Other pancytopenia | CPT/HCPCS: 99223; 99233; 99239; G0180 ==

== ENCOUNTER 2023-05-10 11:33 | Emergency (ER) | payer OTHER, SELFPAY ==
--- NOTE | ~2023-05-10 | XR_ITS ---
EXAMINATION: Left hip and left hand. CLINICAL INFORMATION: Status post fall. Left hand and hip pain. COMPARISON: None available. TECHNIQUE: Two views of the left hip with AP pelvis. Left hand 4 views. FINDINGS: Left hand: There is diffuse osteopenia. There is loss of PIP and DIP joints without spurring or bony erosive changes. There is no visible acute fracture, dislocation or subluxation seen. The soft tissues are normal. Left hip: There is normal symmetry of bilateral hip joint SI joints. There is no fracture involving the pelvis. The soft tissues are normal. AP and frog-leg views left hip reveal no acute fracture or dislocation.. The soft tissues are normal. XR/XR hand wrist LT IMPRESSION: Unremarkable AP pelvis exam. Unremarkable left hip exam.
--- NOTE | ~2023-05-10 | XR_ITS ---
EXAMINATION: Left hip and left hand. CLINICAL INFORMATION: Status post fall. Left hand and hip pain. COMPARISON: None available. TECHNIQUE: Two views of the left hip with AP pelvis. Left hand 4 views. FINDINGS: Left hand: There is diffuse osteopenia. There is loss of PIP and DIP joints without spurring or bony erosive changes. There is no visible acute fracture, dislocation or subluxation seen. The soft tissues are normal. Left hip: There is normal symmetry of bilateral hip joint SI joints. There is no fracture involving the pelvis. The soft tissues are normal. AP and frog-leg views left hip reveal no acute fracture or dislocation.. The soft tissues are normal. XR/XR hip LT w [id number] IMPRESSION: Unremarkable AP pelvis exam. Unremarkable left hip exam.
--- NOTE | ~2023-05-10 | XR_ITS ---
EXAMINATION: XR CHEST CLINICAL INFORMATION: Fall. Pleural effusion. COMPARISON: 03/26/2023. TECHNIQUE: 2 views of the chest were obtained. FINDINGS: The cardiomediastinal silhouette is stable. There is pulmonary vascular congestion and perihilar increased markings. There is atelectatic change at the lung bases. There is also blunting of the costophrenic angles. The bony structures and soft tissues are unremarkable. XR/XR chest 2V IMPRESSION: Pulmonary vascular congestion and perihilar increased markings suggests fluid overload and/or congestive heart failure with early interstitial edema. There appears to be atelectatic change at the lung bases. There also appear to be minimal/small pleural effusions.
--- NOTE | ~2023-05-10 | CT_ITS ---
CT HEAD WITHOUT IV CONTRAST CT CERVICAL SPINE WITHOUT IV CONTRAST INDICATION: Fall. Head strike. COMPARISON: None available. TECHNIQUE: Multidetector CT acquisitions of the head and cervical spine were obtained without IV contrast. Multiplanar reformats were acquired and utilized for image interpretation. This CT examination was performed using dose optimization techniques as appropriate, variously including the following: *Automated exposure control *Adjustment of mA and/or kV according to patient size (this includes techniques or standardized protocols for targeted exams where dose is matched to indication/reason for exam; i.e. extremities or head) *Use of iterative reconstruction technique FINDINGS: HEAD: There is no intracranial hemorrhage, hydrocephalus, extra-axial surface collection, midline shift, or other herniation pattern. Zuleta to white matter differentiation is diffusely maintained without evidence of an evolved acute territorial infarct. The basilar cisterns are preserved. No significant soft tissue abnormality. No acute osseous abnormality. The paranasal sinuses and the mastoid air cells are well aerated. CERVICAL SPINE: There is straightening of the cervical lordosis. The vertebral body heights are maintained. Moderate disc volume loss at C4-C5. Vacuum phenomenon at C4-C5 and C5-C6. No acute fractures and no acute subluxations are identified. There is chronic appearing left C2 lateral mass height loss with associated sclerosis. There are advanced degenerative changes involving the left C2-C3 facet joint. Partially imaged small right pleural effusion. Retropharyngeal course of the carotid arteries bilaterally. No prevertebral soft tissue swelling. CT/CT cervical spine wo IV con IMPRESSION: - No acute intracranial findings. The posterior fossa is not entirely included on this exam. - No acute osseous findings within the cervical spine. There is multilevel cervical spondylosis. There is chronic appearing left C2 lateral mass height loss with associated sclerosis and severe degenerative changes across the left C2-C3 facet joint. - Partially imaged small right pleural effusion.
--- NOTE | 2023-05-10 11:36 | ED_ITS ---
HPI - General Adult General Chief complaint: Fall Stated complaint: Fell at [facility] w[facility]arm, neck back pain, per ems Time Seen by Provider: 05/10/23 11:36 Source: patient and EMS Mode of arrival: EMS Limitations: no limitations History of Present Illness HPI narrative: Patient is a 72 year old assigned female at with a history of anxiety and arthritis presenting to the emergency department today after a mechanical fall. Patient states that she tripped and fell, got back up, then walked and told staff that she had fallen. Patient states that her left wrist, hip, and head pain. Patient denies any loss of consciousness with the incident, dizziness, lightheadedness, abdominal pain, nausea, vomiting, fever, chills, blurry vision, double vision, loss of vision, chest pain, difficulty breathing, shortness of breath, back pain, night sweats, pain with urination, increased urinary frequency, increased urinary urgency, blood in her urine or stool, syncope or a near syncopal episode, bowel incontinence, bladder incontinence, bowel retention, bladder retention, or any other complaints at this time. Onset (ago): minute(s) Radiation: non-radiation Severity: mild Severity scale (1-10): 3 Quality: aching and dull Pain Consistency: constant Relieving factors: none Exacerbating factors: none Associated symptoms: denies other symptoms Treatments prior to arrival: none Related Data Previous Rx's Medication Instructions Recorded docusate sodium 100 mg capsule 100 mg PO BID #60 caps 03/25/23 escitalopram oxalate 20 mg tablet 20 mg PO DAILY 30 days #30 tabs 03/25/23 furosemide 40 mg tablet 40 mg PO DAILY 30 days #30 tabs 03/25/23 gabapentin 100 mg capsule 200 mg (2 x 100 mg) PO TID 30 days 03/25/23 #180 caps hydroxyzine HCl 25 mg tablet 25 mg PO Q6H PRN Anxiety 30 days 03/25/23 #60 tabs insulin aspart U-100 100 unit/mL 1 sliding scale dose subcut TID 03/25/23 subcutaneous solution (Novolog #10 mL U-100 Insulin aspart) insulin glargine 100 unit/mL (3 34 unit (0.34 mL) subcut DAILY 30 03/25/23 mL) subcutaneous pen (Lantus days #10.2 mL Solostar U-100 Insulin) lactulose 20 gram/30 mL oral 20 g (30 mL) PO TID 30 days #2,700 03/25/23 solution mL levothyroxine 25 mcg tablet 25 mcg PO DAILY 30 days #30 tabs 03/25/23 lidocaine 4 % topical patch 1 patch transdermal DAILY 30 days 03/25/23 (Lidocaine Pain Relief) #30 ea midodrine 10 mg tablet 10 mg PO TID 30 days #90 tabs 03/25/23 olanzapine 5 mg tablet 5 mg PO DAILY 30 days #30 tabs 03/25/23 pantoprazole 40 mg tablet,delayed 40 mg PO BID 30 days #60 tabs 03/25/23 release polyethylene glycol 3350 17 gram 17 g PO BID #60 packets 03/25/23 oral powder packet potassium chloride 20 mEq oral 20 meq PO DAILY 30 days #30 ea 03/25/23 packet rosuvastatin 5 mg tablet 5 mg PO DAILY 30 days #30 tabs 03/25/23 sennosides 8.6 mg tablet (Senna 8.6 mg PO BEDTIME #30 tabs 03/25/23 Lax) spironolactone 50 mg tablet 50 mg PO DAILY 30 days #30 tabs 03/25/23 trazodone 100 mg tablet 100 mg PO BEDTIME PRN Insomnia 30 03/25/23 days #30 tabs trospium 60 mg capsule,extended 60 mg PO 1XD 30 days #30 caps 03/25/23 release 24 hr umeclidinium 62.5 mcg/actuation 1 inh inhalation DAILY #30 ea 03/25/23 blister powder for inhalation (Incruse Ellipta) ferrous sulfate 325 mg (65 mg 325 mg PO DAILY #30 tabs 03/28/23 iron) tablet Allergies Allergy/AdvReac Type Severity Reaction Status Date / Time aspirin Allergy Unknown Verified 03/13/23 18:25 bee pollen [bee stings] Allergy Unknown Verified 03/13/23 18:25 Penicillins Allergy Unknown Verified 03/13/23 18:25 Review of Systems Constitutional: Constitutional: Reports no additional constitutional complaints, Denies chills, Denies fever(s) and Denies night sweats Eyes: Eyes: Reports no additional eye complaints, Denies blurry vision, Denies change in vision, Denies diplopia, Denies eye discharge, Denies loss of vision and Denies eye pain ENT: Denies dizziness Cardiovascular: Cardiovascular: Reports no additional cardiovascular complaints, Denies chest pain, Denies lightheadedness, Denies Loss of Consciousness and Denies dyspnea Respiratory: Respiratory: Reports no additional respiratory complaints and Denies dyspnea Gastrointestinal: Gastrointestinal: Reports no additional gastrointestinal complaints, Denies abdominal pain, Denies melena, Denies hematochezia, Denies change in bowel habits and Denies change in stool character Genitourinary: Genitourinary: Denies hematuria, Denies urinary frequency, Denies dysuria, Denies urinary incontinence, Denies urinary hesitancy and Denies urinary urgency Musculoskeletal: Musculoskeletal: Reports no additional musculoskeletal complaints, Denies numbness and Denies tingling Comments: left wrist pain, left hip pain, headache Neurologic: Denies dizziness, Denies loss of vision, Denies numbness and Denies tingling Psychiatric: Psychiatric: Reports no additional psychiatric complaints Endocrine: Endocrine: Reports no additional endocrine complaints Hematologic/Lymphatic: Hematologic/Lymphatic: Reports no additional hematologic/lymphatic complaints Allergic/Immunologic: Allergic/Immunologic: Reports no additional allergic/immunologic complaints [facility] Past Medical History Attestation statement: The following information was validated with the patient. 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) Asthma (08/30/21) Arthritis Anxiety and depression Anemia of chronic disease Congestive heart failure Depression Type 2 diabetes mellitus Chronic constipation GERD (gastroesophageal reflux disease) Asthma-COPD overlap syndrome Hypothyroidism History of hepatitis C Hepatic cirrhosis Hypertension Social History Social History Household Members: Children Household Members Other:: two daughters, two grandchildren and son-in-law Housing: House Do you presently have visiting nurse or other home services: Yes (Nurse visiting on Mondays and Fridays) Patient Tobacco Use Status: Former Tobacco user Quit Date: 15 years ago Tobacco use type: Cigarette Smoked in Last 30 Days: No Second Hand Smoke Exposure: No Use of substances other than those prescribed or required for medical reasons: No Substance Use Type: Crack/Cocaine and Marijuana Advance Directives: Yes Advance Directives Information Provided: No Advance Directives on File: No service: No Sexual orientation: Straight/Heterosexual Physical Exam ED Vital Signs: Vital Signs - 24 hr 09/29/23 11:42 05/10/23 11:49 05/10/23 11:49 Temperature 98.2 F Pulse Rate 102 H 101 H 101 H Respiratory Rate 18 18 18 Blood Pressure 158/62 H Pulse Oximetry 971 H Oxygen Delivery Method Room Air 05/10/23 15:14 Temperature Pulse Rate 92 Respiratory Rate 20 Blood Pressure 136/47 L Pulse Oximetry 94 Oxygen Delivery Method Room Air BMI result Body Mass Index 33.9 Const General: cooperative, no acute distress, alert and awake Nutritional Appearance: well nourished Orientation/consciousness: patient oriented x3 Limitations: no limitations HENMT Head: Yes normal to inspection and Yes atraumatic Ears: hearing grossly normal bilaterally and external ears normal General nose exam: Normal external nose present, no nasal discharge noted and no epistaxis Face and sinus: Yes normal facial exam, No abrasion and No laceration Mouth: Normal oral and palatal mucosa present, no drooling and no muffled voice Eyes General: appearance normal, both eyes and all related structures Periorbital: periorbital findings normal Eyelids: Yes eyelids normal Conjunctivae: conjunctivae normal Pupils: Equal, round and reactive pupils present EOM: EOMs intact bilaterally Neck Neck: Yes normal visual inspection, Yes full ROM and Yes no lymphadenopathy Chest Chest palpation & inspection: normal inspection of the chest Resp Effort & Inspection: normal respiratory effort and able to speak in complete sentences Auscultation: clear to auscultation bilaterally Cardio Rate: regular rate Rhythm: regular rhythm GI Inspection: Yes normal to inspection General: Yes no CVA tenderness Back/Spine/Pelvis Back: no CVA tenderness Cervical Spine: normal cervical lordosis and cervical ROM normal Thoracic/Lumbar Spine: thoracic and lumbar spine normal to inspection and thoraco-lumbar ROM normal Pelvis: no pain with anterior-posterior compression Neuro General: patient oriented x3 and moves all extremities Cranial nerves: Yes Equal, round and reactive pupils present Cognition (Neuro): normal cognition Motor exam (neuro): 5/5 motor strength present throughout Sensory Exam: Normal double simultaneous stimulation for sensation Coordination: [id number] test normal Extrem General: Yes normal to inspection, Yes full ROM and Yes capillary refill normal Psych Appearance: grossly normal Mental Status: mental status grossly normal Affect: normal affect Attitude: cooperative Thought process: Normal thought process present Thought content: Normal thought content present Insight: Good insight present (Psych) Patient is a 72 year old assigned female at with a history of anxiety and asthma presenting to the emergency department today after a mechanical fall. Patient's physical exam was unremarkable. Patient's head and c-spine CTs showed no acute process. Patient's left hip, pelvis, and left hand/wrist x-rays all showed no acute process. Patient's chest XR showed evidence of CHF however the patient declines any SOB, chest pain, or dyspnea on exertion. Patient's physical exam was also not consistent with an acute episode of CHF. I explained my physical exam findings as well as all test results to the patient. I answered all questions asked by the patient. I stressed the importance of the patient taking her medication as prescribed. I stressed the importance of the patient following up with her primary care provider. I stressed the importance of the patient returning to the emergency department immediately if her symptoms were to worsen or if she were to develop any dizziness, shortness of breath, difficulty breathing, chest pain, blurry vision, loss of vision, nausea, vomiting, abdominal pain, fever, chills, back pain, or any other complaints. Patient verbalized agreement and understanding with this treatment plan and discharge. Medical Decision Making Medical Decision Making MDM Narrative: Patient is a 72 year old assigned female at with a history of asthma and arthritis presenting to the emergency department today with body pain after a fall. Patient's physical exam was unremarkable. Patient's head and c-spine CTs showed no acute process. Patient's chest XR showed evidence of CHF however, the patient has no clinical evidence of CHF. I explained my physical exam findings as well as all test results to the patient. I answered all questions asked by the patient. I stressed the importance of the patient taking her medication as prescribed. I stressed the importance of the patient following up with her primary care provider. I stressed the importance of the patient returning to the emergency department immediately if her symptoms were to worsen or if she were to develop any dizziness, shortness of breath, difficulty breathing, chest pain, blurry vision, loss of vision, nausea, vomiting, abdominal pain, fever, chills, back pain, or any other complaints. Patient verbalized agreement and understanding with this treatment plan and discharge. Differential Diagnosis Differential Diagnoses: The differential diagnosis associated with the presentation includes Fall Independent Interpretation I performed an independent interpretation of an: Plain X-Ray and CT Scan Interpretation: My interpretation is in agreement with the radiologist's impression of these imaging studies. CT HEAD WITHOUT IV CONTRAST CT CERVICAL SPINE WITHOUT IV CONTRAST INDICATION: Fall. Head strike. COMPARISON: None available. TECHNIQUE: Multidetector CT acquisitions of the head and cervical spine were obtained without IV contrast. Multiplanar reformats were acquired and utilized for image interpretation. This CT examination was performed using dose optimization techniques as appropriate, variously including the following: *Automated exposure control *Adjustment of mA and/or kV according to patient size (this includes techniques or standardized protocols for targeted exams where dose is matched to indication/reason for exam; i.e. extremities or head) *Use of iterative reconstruction technique FINDINGS: HEAD: There is no intracranial hemorrhage, hydrocephalus, extra-axial surface collection, midline shift, or other herniation pattern. Zuleta to white matter differentiation is diffusely maintained without evidence of an evolved acute territorial infarct. The basilar cisterns are preserved. No significant soft tissue abnormality. No acute osseous abnormality. The paranasal sinuses and the mastoid air cells are well aerated. CERVICAL SPINE: There is straightening of the cervical lordosis. The vertebral body heights are maintained. Moderate disc volume loss at C4-C5. Vacuum phenomenon at C4-C5 and C5-C6. No acute fractures and no acute subluxations are identified. There is chronic appearing left C2 lateral mass height loss with associated sclerosis. There are advanced degenerative changes involving the left C2-C3 facet joint. Partially imaged small right pleural effusion. Retropharyngeal course of the carotid arteries bilaterally. No prevertebral soft tissue swelling. CT/CT cervical spine wo IV con IMPRESSION: - No acute intracranial findings. The posterior fossa is not entirely included on this exam. - No acute osseous findings within the cervical spine. There is multilevel cervical spondylosis. There is chronic appearing left C2 lateral mass height loss with associated sclerosis and severe degenerative changes across the left C2-C3 facet joint. - Partially imaged small right pleural effusion. Dictated By: Franklin Jay MD Signed By: Electronically signed by Franklin Jay MD 05/10/23 1300 --------- EXAMINATION: XR CHEST CLINICAL INFORMATION: Fall. Pleural effusion. COMPARISON: 03/26/2023. TECHNIQUE: 2 views of the chest were obtained. FINDINGS: The cardiomediastinal silhouette is stable. There is pulmonary vascular congestion and perihilar increased markings. There is atelectatic change at the lung bases. There is also blunting of the costophrenic angles. The bony structures and soft tissues are unremarkable. XR/XR chest 2V IMPRESSION: Pulmonary vascular congestion and perihilar increased markings suggests fluid overload and/or congestive heart failure with early interstitial edema. There appears to be atelectatic change at the lung bases. There also appear to be minimal/small pleural effusions. Dictated By: Sanket Barnett Signed By: Electronically signed by Sanket Barnett 05/10/23 1428 EXAMINATION: Left hip and left hand. CLINICAL INFORMATION: Status post fall. Left hand and hip pain. COMPARISON: None available. TECHNIQUE: Two views of the left hip with AP pelvis. Left hand 4 views. FINDINGS: Left hand: There is diffuse osteopenia. There is loss of PIP and DIP joints without spurring or bony erosive changes. There is no visible acute fracture, dislocation or subluxation seen. The soft tissues are normal. Left hip: There is normal symmetry of bilateral hip joint SI joints. There is no fracture involving the pelvis. The soft tissues are normal. AP and frog-leg views left hip reveal no acute fracture or dislocation.. The soft tissues are normal. XR/XR hand wrist LT IMPRESSION: Unremarkable AP pelvis exam. Unremarkable left hip exam. Dictated By: Vern Chew MD Signed By: Electronically signed by Vern Chew MD 05/10/23 9311 Radiology Impression Discussion of test interpretation with radiology: I have reviewed the radiologist's reading. Independent Historian Clinical information obtained from an independent historian. History obtained from or confirmed by: EMS (EMS provided additional history and confirmed the history provided by the patient) Discharge Plan Discharge Clinical Impression: Fall Patient Disposition: Home, Self-Care Instructions: Fall Prevention for Older Adults (ED) Additional Instructions: Follow up with your primary care provider. Return to the emergency department immediately if your symptoms worsen or if you develop any dizziness, shortness of breath, difficulty breathing, chest pain, blurry vision, loss of vision, nausea, vomiting, abdominal pain, fever, chills, back pain, or any other complaints. Prescriptions: No Action furosemide 40 mg Tablet 40 mg PO DAILY 30 Days Qty: 30 0RF Protocol: Hold for SBP< HOLD for SBP < : 90 olanzapine 5 mg Tablet 5 mg PO DAILY 30 Days Qty: 30 0RF trazodone 100 mg Tablet 100 mg PO BEDTIME PRN (Reason: Insomnia) 30 Days Qty: 30 0RF hydroxyzine HCl 25 mg Tablet 25 mg PO Q6H PRN (Reason: Anxiety) 30 Days Qty: 60 0RF lactulose 20 gram/30 mL Solution 20 g PO TID 30 Days Qty: 2700 0RF polyethylene glycol 3350 17 gram Powder In Packet 17 g PO BID Qty: 60 0RF sennosides [Senna Lax] 8.6 mg Tablet 8.6 mg PO BEDTIME Qty: 30 0RF lidocaine [Lidocaine Pain Relief] 4 % Adhesive Patch,Medicated 1 patch transdermal DAILY 30 Days Qty: 30 0RF Protocol: Apply to: Apply to: knee levothyroxine 25 mcg Tablet 25 mcg PO DAILY 30 Days Qty: 30 0RF potassium chloride 20 mEq Packet 20 meq PO DAILY 30 Days Qty: 30 0RF insulin aspart U-100 [Novolog U-100 Insulin aspart] 100 unit/mL Solution 1 sliding scale dose SUBCUT TID Qty: 10 0RF pantoprazole 40 mg Tablet,Delayed Release (Dr/Ec) 40 mg PO BID 30 Days Qty: 60 0RF docusate sodium 100 mg Capsule 100 mg PO BID Qty: 60 0RF gabapentin 100 mg Capsule 200 mg PO TID 30 Days Qty: 180 0RF spironolactone 50 mg Tablet 50 mg PO DAILY 30 Days Qty: 30 0RF midodrine 10 mg Tablet 10 mg PO TID 30 Days Qty: 90 0RF Rx Instructions: do not give last dose of day after 6PM or within 4 hrs of bedtime escitalopram oxalate 20 mg Tablet 20 mg PO DAILY 30 Days Qty: 30 0RF rosuvastatin 5 mg Tablet 5 mg PO DAILY 30 Days Qty: 30 0RF insulin glargine [Lantus Solostar U-100 Insulin] 100 unit/mL (3 mL) Insulin Pen 34 unit SUBCUT DAILY 30 Days Qty: 10.2 0RF trospium 60 mg Capsule,Extended Release 24hr 60 mg PO 1XD 30 Days Qty: 30 0RF Incruse Ellipta 62.5 mcg/actuation Blister With Device 1 inh INHALATION DAILY Qty: 30 0RF ferrous sulfate 325 mg (65 mg iron) tablet 325 mg PO DAILY Qty: 30 0RF Referrals: [facility] [place] Family Medicine [Provider Group] (Call to establish and follow up with a primary care provider. If you already have a primary care provider, please follow up with them.) [facility] [place] Primary CareMary Ann [Provider Group] (Call to establish and follow up with a primary care provider. If you already have a primary care provider, please follow up with them.) [facility] [place] Primary CareApril [Provider Group] (Call to establish and follow up with a primary care provider. If you already have a primary care provider, please follow up with them.) Interventions: ED Discharge Assessment Last Done: 05/10/23 17:59 Discharge Date/Time: 05/10/23 18:15 Print Language: [place]
[2023-05-10 11:42] VITALS: BP 146/60; BP 158/62; PULSE 102; PULSE 84; RESP 18; TEMP 36.8; O2SAT 971; BMI 33.9
[2023-05-10 11:49] VITALS: PULSE 101; RESP 18
[2023-05-10 15:14] VITALS: BP 136/47; PULSE 92; RESP 20; O2SAT 94
--- NOTE | 2023-05-10 15:39 | PC.NURSE ---
Pt awaiting transport home, ETA 1900, pt aware
--- NOTE | 2023-05-10 18:14 | PC.NURSE ---
Pt daughter at bedside, reports she is taking Pt home via personal vehicle. Pt ambulated independently to W/C and brought out by staff.
== END 2023-05-10 18:15 | disposition home or self-care (01) ==
PROVIDERS: Emergency Provider Emergency Medicine Emergency Medical Services
DX: M25.532 Pain in left wrist (principal); M25.552 Pain in left hip; Z91.81 History of falling; E11.9 Type 2 diabetes mellitus without complications; I11.0 Hypertensive heart disease with heart failure; I50.9 Heart failure, unspecified; Z79.4 Long term (current) use of insulin; Z87.891 Personal history of nicotine dependence
CPT/HCPCS: 70450; 71046; 72125; 73110; 73130; 73502; 99284

== ENCOUNTER 2023-07-21 12:48 | Inpatient (IN) | payer OTHER, SELFPAY ==
[2023-07-21] VITALS (18 sets, daily range): BP systolic 88–151; BP diastolic 26–65; PULSE 88–106; RESP 18–33; TEMP 36.6–39.9; O2SAT 91–98; BMI 35.6; BMI 35.5
--- NOTE | ~2023-07-21 | XR_ITS ---
EXAMINATION: XR CHEST CLINICAL INFORMATION: Dyspnea. COMPARISON: Chest 07/21/2023 TECHNIQUE: Frontal view of the chest was obtained. FINDINGS: The lungs are somewhat expanded with moderate opacity in the right lung base likely atelectasis or infiltrate with underlying effusion. Increased vascular markings seen bilaterally with a prominent left pulmonary hilum. The heart size and pulmonary vascularity is normal. No gross bony abnormality seen. XR/XR chest 1V IMPRESSION: Patchy opacity right lower lobe likely airspace disease/edema with underlying effusion. Increased vascular markings with a prominent left pulmonary hilum similar previous study. Underlying lesion is not excluded. Consider CT chest after resolution of infiltrate.
--- NOTE | ~2023-07-21 | XR_ITS ---
EXAMINATION: XR CHEST CLINICAL INFORMATION: CHF COMPARISON: Chest 07/25/2023 TECHNIQUE: Frontal view of the chest was obtained. FINDINGS: There is persistent blunting of right CP angle from pleural effusion and underlying atelectasis. There is a patchy peripheral haziness in the right upper midlung, slightly more prominent than previous study question lacunar fluid versus airspace disease. Patchy opacities in left lung base likely atelectasis or infiltrate. The upper lungs are clear. The heart size is normal. No gross bony abnormality seen. XR/XR chest 1V IMPRESSION: 1. Small right pleural effusion with underlying atelectasis. 2. Patchy haziness in the right upper midlung and left lung base likely atelectasis or infiltrate, new. The upper lungs are clear. 3. No change from 07/25/2023.
--- NOTE | ~2023-07-21 | XR_ITS ---
EXAMINATION: XR CHEST CLINICAL INFORMATION: Shortness of breath COMPARISON: Chest x-ray July 22, 2023 TECHNIQUE: Frontal view of the chest was obtained. FINDINGS: The cardiac silhouette is stable. Atherosclerotic disease of the aortic arch. Interval increase in size of now small to moderate right-sided pleural effusion with overlying airspace disease, possibly atelectasis. No pneumothorax. Similar prominence of the central pulmonary vasculature. XR/XR chest 1V IMPRESSION: Interval increase in size of now small to moderate right-sided pleural effusion.
--- NOTE | ~2023-07-21 | XR_ITS ---
EXAMINATION: XR CHEST CLINICAL INFORMATION: Chest pain. COMPARISON: 05/10/2023 TECHNIQUE: Frontal view of the chest was obtained. FINDINGS: The patient is rotated to the left which distorts the mediastinum. The cardiomediastinal silhouette is grossly stable. No pulmonary edema. New airspace disease in the right lower lung. Small effusion is stable or slightly increased in size. No definite left effusion. No pneumothorax. XR/XR chest 1V IMPRESSION: Limited examination due to rotation. New right lower lung airspace disease without overt interstitial edema. Favor pneumonia. Stable to slightly increased small right effusion.
--- NOTE | 2023-07-21 13:10 | ECG_ITS ---
Test Reason : cp Blood Pressure : / mmHG Vent. Rate : 100 BPM Atrial Rate : 100 BPM P-R Int : 120 ms QRS Dur : 074 ms QT Int : 448 ms P-R-T Axes : 078 049 047 degrees QTc Int : 577 ms Normal sinus rhythm Prolonged QT Abnormal ECG No previous ECGs available Referred By: Elva Price Electronically Signed By:Jesus Barnard
--- NOTE | 2023-07-21 13:13 | ED_ITS ---
HPI - Fever General Chief Complaint: Fever Stated Complaint: DIFFICULTY BREATHING, POC 417 PER EMS Time Seen by Provider: 07/21/23 12:57 History of Present Illness HPI Narrative: Patient is a 72-year-old female presented with coughing congestion upper respiratory symptoms shortness of breath patient is from home. Feeling weak tired. Got a neb treatment on arrival patient symptomatic Amy feels somewhat improved. Sent in for further evaluation. Has a history of asthma. History of depression. History anemia. Not vaccinated for COVID vaccinated for the flu. Patient had had COVID in the past. History of diabetes not compliant with medications. Related Data Previous Rx's Medication Instructions Recorded docusate sodium 100 mg capsule 100 mg PO BID #60 caps 03/25/23 escitalopram oxalate 20 mg tablet 20 mg PO DAILY 30 days #30 tabs 03/25/23 furosemide 40 mg tablet 40 mg PO DAILY 30 days #30 tabs 03/25/23 gabapentin 100 mg capsule 200 mg (2 x 100 mg) PO TID 30 days 03/25/23 #180 caps hydroxyzine HCl 25 mg tablet 25 mg PO Q6H PRN Anxiety 30 days 03/25/23 #60 tabs insulin aspart U-100 100 unit/mL 1 sliding scale dose subcut TID 03/25/23 subcutaneous solution (Novolog #10 mL U-100 Insulin aspart) insulin glargine 100 unit/mL (3 34 unit (0.34 mL) subcut DAILY 30 03/25/23 mL) subcutaneous pen (Lantus days #10.2 mL Solostar U-100 Insulin) lactulose 20 gram/30 mL oral 20 g (30 mL) PO TID 30 days #2,700 03/25/23 solution mL levothyroxine 25 mcg tablet 25 mcg PO DAILY 30 days #30 tabs 03/25/23 lidocaine 4 % topical patch 1 patch transdermal DAILY 30 days 03/25/23 (Lidocaine Pain Relief) #30 ea midodrine 10 mg tablet 10 mg PO TID 30 days #90 tabs 03/25/23 olanzapine 5 mg tablet 5 mg PO DAILY 30 days #30 tabs 03/25/23 pantoprazole 40 mg tablet,delayed 40 mg PO BID 30 days #60 tabs 03/25/23 release polyethylene glycol 3350 17 gram 17 g PO BID #60 packets 03/25/23 oral powder packet potassium chloride 20 mEq oral 20 meq PO DAILY 30 days #30 ea 03/25/23 packet rosuvastatin 5 mg tablet 5 mg PO DAILY 30 days #30 tabs 03/25/23 sennosides 8.6 mg tablet (Senna 8.6 mg PO BEDTIME #30 tabs 03/25/23 Lax) spironolactone 50 mg tablet 50 mg PO DAILY 30 days #30 tabs 03/25/23 trazodone 100 mg tablet 100 mg PO BEDTIME PRN Insomnia 30 03/25/23 days #30 tabs trospium 60 mg capsule,extended 60 mg PO 1XD 30 days #30 caps 03/25/23 release 24 hr umeclidinium 62.5 mcg/actuation 1 inh inhalation DAILY #30 ea 03/25/23 blister powder for inhalation (Incruse Ellipta) ferrous sulfate 325 mg (65 mg 325 mg PO DAILY #30 tabs 03/28/23 iron) tablet Allergies Allergy/AdvReac Type Severity Reaction Status Date / Time aspirin Allergy Unknown Verified 07/21/23 12:59 bee pollen [bee stings] Allergy Unknown Verified 07/21/23 12:59 Penicillins Allergy Unknown Verified 07/21/23 12:59 Review of Systems 2 Review of Systems: . Positive coughing congestion upper re spiratory symptoms PMFSH Past Medical History Attestation statement: The following information was validated with the patient. 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) Asthma (08/30/21) Arthritis Anxiety and depression Anemia of chronic disease Congestive heart failure Depression Type 2 diabetes mellitus Chronic constipation GERD (gastroesophageal reflux disease) Asthma-COPD overlap syndrome Hypothyroidism History of hepatitis C Hepatic cirrhosis Hypertension Social History Social History Household Members: Children Household Members Other:: two daughters, two grandchildren and son-in-law Housing: House Do you presently have visiting nurse or other home services: Yes (Nurse visiting on Mondays and Fridays) Patient Tobacco Use Status: Former Tobacco user Quit Date: 15 years ago Tobacco use type: Cigarette Smoked in Last 30 Days: No Second Hand Smoke Exposure: No Substance Use Type: Crack/Cocaine and Marijuana Advance Directives: Yes Advance Directives Information Provided: No Advance Directives on File: No service: No Sexual orientation: Straight/Heterosexual Physical Exam 2 Vital Signs: Vital Signs: Last Vital Signs Temp 99.7 F 07/21/23 15: Pulse 93 07/21/23 15: Resp 33 H 07/21/23 15:23 BP 151/46 H 07/21/23 15:23 Pulse Ox 96 07/21/23 14:24 O2 Del Method Room Air 07/21/23 14:24 BMI result Body Mass Index 35.6 Appearance: Alert. Oriented X3. No acute distress. Eyes: Pupils equal, round and reactive to light. ENT: Pharynx normal. Neck: Normal inspection. Neck supple. No lymph nodes noted. No crepitus CVS: Normal heart rate and rhythm. Pulses normal. Normal S1 and S2 Respiratory: No respiratory distress. Breath sounds normal. No Wheezing. No rales Abdomen: Soft and nontender. No rigidity. No distention. good BS x4 Skin: Skin warm and dry. Normal skin color. Normal skin turgor. Extremities: No lower extremity edema. Neurovascular intact to all extremities. No Lacerations. No Rash Neuro: Oriented X 3. No motor deficit. No sensory deficit. Moving all extermities. No slurred speech Medications Administered Discontinued Medications Generic Name Dose Route Start Last Admin Trade Name Ericksonq PRN Reason Stop Dose Admin Acetaminophen 650 mg 07/21/23 13:11 07/21/23 13:25 Acetaminophen Supp 650 Mg Supp.Rect NM 07/21/23 13:12 650 mg ONCE ONE Administration Sodium Chloride 2,400 mls @ 2,400 mls/hr 07/21/23 13:11 07/21/23 13:15 Ns 30 ml/kg infuse over 1 hr (2400 ml) 07/21/23 14:10 2,400 mls/hr IV Administration .Q1H STA Ceftriaxone Sodium 1 gm/ 50 mls @ 100 mls/hr 07/21/23 13:12 07/21/23 14:47 Sodium Chloride IV 07/21/23 13:41 Infused ONCE ONE Infusion Insulin Human Regular 10 unit 07/21/23 14:40 07/21/23 15:03 Insulin Regular, Human 100 Unit/Ml 3 Ml Vial IVPUSH 07/21/23 14:41 10 unit ONCE ONE Administration Medical Decision Making Medical Decision Making MDM Narrative: 13:15 Patient had fever shortness of breath coughing upper respiratory symptoms. Positive fever. Cultures obtained. Lactate ordered. 30 cc/kilos IV fluid ordered. Antibiotics started. Patient also noted to have a sugar over 400. Will check patient's electrolytes before giving insulin. EKG done. Will place patient on a monitor. Sepsis alert called at 01:15 Antibiotic in. 30 cc/kilos going in. Cultures are obtained. Patient's labs showed a significant lactic acidosis of 8.3. Has an anion gap of 22 question secondary to DKA versus lactic acidosis. Focal exam for sepsis being done. Patient is symptomatic we actually improving. It is approximately 15:30. Patient's case discussed with the carburetor specialist team. She is to be admitted. Her flu COVID RSV were all negative. My interpretation of patient's chest x-ray showed a right lower lobe infiltrate consistent with pneumonia. Patient's urine was grossly negative for any acute evidence of infection. Differential Diagnosis Differential Diagnoses: The differential diagnosis associated with the presentation includes Pneumonia, UTI, flu, COVID, RSV, DKA, hyperglycemia, severe sepsis Admission/Observation Consideration of admission/observation: Escalation of care including admission/observation considered Consult Healthcare Provider Management of the patient was discussed with: Nurse Practical (Talent Rep) Lab Data [facility] Lab Attestation statement: I reviewed the patient's lab results. 07/21/23 14:01 07/21/23 13:32 Labs: Lab Results 07/21/23 07/21/23 07/21/23 Range/Units 13:03 13:32 14:01 WBC 7.6 (4.8-10.8) X10*3/uL RBC 3.82 L D (4.20-5.50) X10*6/uL Hgb 11.2 L D (12.0-16.0) g/dl Hct 34.8 L D (37.0-47.0) % MCV 91.1 (80.0-98.0) fL MCH 29.3 (27.0-33.0) pg MCHC 32.2 (31.0-35.0) g/dl RDW 14.0 (11.0-16.0) % Plt Count 73 L D (160-400) X10*3/uL MPV 11.8 (9.4-12.3) fL Immature Gran % (Auto) 1.1 H (0.0-0.4) % Neut % (Auto) 89.7 H (45-73) % Lymph % (Auto) 2.1 L (20-40) % Dawes % (Auto) 7.0 (2-11) % Eos % (Auto) 0.0 (0-4) % Baso % (Auto) 0.1 (0-2) % Lymph # (Auto) 0.2 L (1.2-4.9) X10*3/uL Dawes # (Auto) 0.5 (0.1-1.2) X10*3/uL Eos # (Auto) 0.0 (0.0-0.4) X10*3/uL Baso # (Auto) 0.0 (0.0-0.2) X10*3/uL Abs Immat Gran (auto) 0.08 H (0.00-0.03) X10*3/uL Absolute Neuts (auto) 6.8 (2.0-8.3) x10*3/uL Absolute Nucleated RBC 0.000 (0.0-0.012) X10*3/uL Nucleated RBC % (auto) 0.0 (0.0-0.2) /100WBC Smear Tech's Comments VERIFIED VBG pH (7.32-7.43) VBG pCO2 mmHg VBG pO2 mmHg VBG HCO3 (22-26) mmol/L VBG O2 Saturation % VBG Base Excess mmol/L Sodium 138 (135-145) mmol/L Potassium 4.2 (3.3-5.1) mmol/L Chloride 106 (96-108) mmol/L Carbon Dioxide 14 L (22-29) mmol/L Anion Gap 22 H (12-20) BUN 16 (9-16) mg/dL Creatinine 0.94 (0.5-1.4) mg/dL Estim Creat Clear Calc 50.2 Estimated GFR 59 POC Glucose 374 H* (60-115) mg/dL Random Glucose 419 H* (60-115) mg/dL Lactic Acid 8.3 H* (0.5-2.0) mmol/L Calcium 8.8 (8.4-10.2) mg/dL Total Bilirubin 2.2 H (0.0-1.0) mg/dL Direct Bilirubin 1.0 H (0.0-0.5) mg/dL AST 47 H (5-31) U/L ALT 21 (0-31) U/L Alkaline Phosphatase 98 (39-117) U/L Troponin I High Sens 14.7 (<3.5-17.0) ng/L Total Protein 6.0 L (6.5-8.0) g/dL Albumin 2.8 L (3.5-5.0) g/dL Urine Color Urine Appearance Urine pH (5.0-9.0) Ur Specific [place] (1.005-1.025) Urine Protein (Neg-Trace) mg/dL Urine Glucose (UA) (Negative) mg/dL Urine Ketones (Negative) mg/dL Urine Blood (Negative) Urine Nitrite (Negative) Ur Leukocyte Esterase (Negative) Urine RBC (0-2) /HPF Urine WBC (0-5) /HPF Ur Squamous Epith Cells (0-2) /HPF Urine Bacteria (None Seen) Hyaline Casts (0-2) /LPF Influenza Type A (PCR) NEGATIVE (Negative) Influenza Type B (PCR) NEGATIVE (Negative) RSV RNA Qual (PCR) NEGATIVE (Negative) SARS-CoV-2 RNA (RT-PCR) NEGATIVE (Negative) 07/21/23 07/21/23 Range/Units 14:03 15:17 WBC (4.8-10.8) X10*3/uL RBC (4.20-5.50) X10*6/uL Hgb (12.0-16.0) g/dl Hct (37.0-47.0) % MCV (80.0-98.0) fL MCH (27.0-33.0) pg MCHC (31.0-35.0) g/dl RDW (11.0-16.0) % Plt Count (160-400) X10*3/uL MPV (9.4-12.3) fL Immature Gran % (Auto) (0.0-0.4) % Neut % (Auto) (45-73) % Lymph % (Auto) (20-40) % Dawes % (Auto) (2-11) % Eos % (Auto) (0-4) % Baso % (Auto) (0-2) % Lymph # (Auto) (1.2-4.9) X10*3/uL Dawes # (Auto) (0.1-1.2) X10*3/uL Eos # (Auto) (0.0-0.4) X10*3/uL Baso # (Auto) (0.0-0.2) X10*3/uL Abs Immat Gran (auto) (0.00-0.03) X10*3/uL Absolute Neuts (auto) (2.0-8.3) x10*3/uL Absolute Nucleated RBC (0.0-0.012) X10*3/uL Nucleated RBC % (auto) (0.0-0.2) /100WBC Smear Tech's Comments VBG pH 7.25 L (7.32-7.43) VBG pCO2 42 mmHg VBG pO2 46 mmHg VBG HCO3 18 L (22-26) mmol/L VBG O2 Saturation 65.0 % VBG Base Excess -7.8 mmol/L Sodium (135-145) mmol/L Potassium (3.3-5.1) mmol/L Chloride (96-108) mmol/L Carbon Dioxide (22-29) mmol/L Anion Gap (12-20) BUN (9-16) mg/dL Creatinine (0.5-1.4) mg/dL Estim Creat Clear Calc Estimated GFR POC Glucose (60-115) mg/dL Random Glucose (60-115) mg/dL Lactic Acid (0.5-2.0) mmol/L Calcium (8.4-10.2) mg/dL Total Bilirubin (0.0-1.0) mg/dL Direct Bilirubin (0.0-0.5) mg/dL AST (5-31) U/L ALT (0-31) U/L Alkaline Phosphatase (39-117) U/L Troponin I High Sens (<3.5-17.0) ng/L Total Protein (6.5-8.0) g/dL Albumin (3.5-5.0) g/dL Urine Color Yellow Urine Appearance Clear Urine pH 6.0 (5.0-9.0) Ur Specific [place] 1.015 (1.005-1.025) Urine Protein Negative (Neg-Trace) mg/dL Urine Glucose (UA) 250 H (Negative) mg/dL Urine Ketones Negative (Negative) mg/dL Urine Blood Negative (Negative) Urine Nitrite Negative (Negative) Ur Leukocyte Esterase Negative (Negative) Urine RBC 0-2 (0-2) /HPF Urine WBC 0-5 (0-5) /HPF Ur Squamous Epith Cells 0-2 (0-2) /HPF Urine Bacteria None Seen (None Seen) Hyaline Casts 3-5 (0-2) /LPF Influenza Type A (PCR) (Negative) Influenza Type B (PCR) (Negative) RSV RNA Qual (PCR) (Negative) SARS-CoV-2 RNA (RT-PCR) (Negative) Independent Interpretation I performed an independent interpretation of an: EKG (On interpretation of patient's EKG showed a sinus rhythm heart rate is 100 NM QRS QTC within normal limits no acute ST segment elevation.) and Plain X-Ray (My evaluation the patient's chest x-ray showed a right lower lobe infiltrate.) Radiology Impression Discussion of test interpretation with radiology: I have reviewed the radiologist's reading. Independent Historian Clinical information obtained from an independent historian. History obtained from or confirmed by: EMS External Record Review External record reviewed: Inpatient record Chronic Conditions Patient?s care impacted by: Diabetes Critical Care Time Critical Care Time Critical Care Time: Yes Total Critical Care Time: 40 Attestation: I have personally provided 40 minutes of critical care time exclusive of time spent on separately billable procedures. Time includes review of lab data, radiology results, discussion with consultants, and monitoring for potential decompensation. Interventions were performed as documented above Discharge Plan Discharge Clinical Impression: Pneumonia Patient Disposition: Admitted As Inpatient Prescriptions: No Action furosemide 40 mg Tablet 40 mg PO DAILY 30 Days Qty: 30 0RF Protocol: Hold for SBP< HOLD for SBP < : 90 olanzapine 5 mg Tablet 5 mg PO DAILY 30 Days Qty: 30 0RF trazodone 100 mg Tablet 100 mg PO BEDTIME PRN (Reason: Insomnia) 30 Days Qty: 30 0RF hydroxyzine HCl 25 mg Tablet 25 mg PO Q6H PRN (Reason: Anxiety) 30 Days Qty: 60 0RF lactulose 20 gram/30 mL Solution 20 g PO TID 30 Days Qty: 2700 0RF polyethylene glycol 3350 17 gram Powder In Packet 17 g PO BID Qty: 60 0RF sennosides [Senna Lax] 8.6 mg Tablet 8.6 mg PO BEDTIME Qty: 30 0RF lidocaine [Lidocaine Pain Relief] 4 % Adhesive Patch,Medicated 1 patch transdermal DAILY 30 Days Qty: 30 0RF Protocol: Apply to: Apply to: knee levothyroxine 25 mcg Tablet 25 mcg PO DAILY 30 Days Qty: 30 0RF potassium chloride 20 mEq Packet 20 meq PO DAILY 30 Days Qty: 30 0RF insulin aspart U-100 [Novolog U-100 Insulin aspart] 100 unit/mL Solution 1 sliding scale dose SUBCUT TID Qty: 10 0RF pantoprazole 40 mg Tablet,Delayed Release (Dr/Ec) 40 mg PO BID 30 Days Qty: 60 0RF docusate sodium 100 mg Capsule 100 mg PO BID Qty: 60 0RF gabapentin 100 mg Capsule 200 mg PO TID 30 Days Qty: 180 0RF spironolactone 50 mg Tablet 50 mg PO DAILY 30 Days Qty: 30 0RF midodrine 10 mg Tablet 10 mg PO TID 30 Days Qty: 90 0RF Rx Instructions: do not give last dose of day after 6PM or within 4 hrs of bedtime escitalopram oxalate 20 mg Tablet 20 mg PO DAILY 30 Days Qty: 30 0RF rosuvastatin 5 mg Tablet 5 mg PO DAILY 30 Days Qty: 30 0RF insulin glargine [Lantus Solostar U-100 Insulin] 100 unit/mL (3 mL) Insulin Pen 34 unit SUBCUT DAILY 30 Days Qty: 10.2 0RF trospium 60 mg Capsule,Extended Release 24hr 60 mg PO 1XD 30 Days Qty: 30 0RF Incruse Ellipta 62.5 mcg/actuation Blister With Device 1 inh INHALATION DAILY Qty: 30 0RF ferrous sulfate 325 mg (65 mg iron) tablet 325 mg PO DAILY Qty: 30 0RF
[2023-07-21 13:14] LABS: Glucose, Whole Blood 374 mg/dL (60-115)
[2023-07-21] MEDS: Acetaminophen Supp 650 MG SUPP.RECT PR (13:25)
--- NOTE | 2023-07-21 13:29 | PC.NURSE ---
pt remains tachipnicc. st on monitor. able to follow commads but slightly confused at times. skin pwd warm to touch. dry mucous membranes. difficult stick. able to get cultures (minimal amount of blood) and one iv. failed attempt for second IV.
[2023-07-21] MEDS: cefTRIAXone sodium 1 GM in 0.9 % Sodium Chloride 50 ML IV (13:32)
[2023-07-21 13:56] LABS: Alanine Aminotransferase 21 U/L (0-31); Albumin Level 2.8 g/dL (3.5-5.0); Alkaline Phosphatase 98 U/L (39-117); Anion Gap 22 (12-20); Aspartate Amino Transferase 47 U/L (5-31); Bilirubin Total 2.2 mg/dL (0.0-1.0); Blood Urea Nitrogen 16 mg/dL (9-16); Calcium 8.8 mg/dL (8.4-10.2); Carbon Dioxide 14 mmol/L (22-29); Chloride 106 mmol/L (96-108); Creatinine Clr Calc Pharmacy 50.2; Estimated Glomerular Filt Rate 59; Potassium 4.2 mmol/L (3.3-5.1); Sodium 138 mmol/L (135-145)
[2023-07-21 13:58] LABS: Glucose Random 419 mg/dL (60-115)
[2023-07-21 14:08] LABS: Venous Blood Gas Refer to POC result
[2023-07-21 14:10] LABS: VBG Base Excess -7.8 mmol/L; VBG HCO3 18 mmol/L (22-26); VBG pCO2 42 mmHg; VBG pH 7.25 (7.32-7.43); VBG pO2 46 mmHg
[2023-07-21 14:10] LABS: Basophils Percent Auto 0.1 % (0-2); Hematocrit 34.8 % (37.0-47.0); Hemoglobin 11.2 g/dl (12.0-16.0); Imm Gran Abs Auto 0.08 X10*3/uL (0.00-0.03); Imm Gran Pct Auto 1.1 % (0.0-0.4); Lymphocytes Absolute Auto 0.2 X10*3/uL (1.2-4.9); Lymphocytes Percent Auto 2.1 % (20-40); MANUAL DIFF FLAG SCAN; Mean Corpuscular HGB Conc 32.2 g/dl (31.0-35.0); Mean Corpuscular Hemoglobin 29.3 pg (27.0-33.0); Mean Corpuscular Volume 91.1 fL (80.0-98.0); Monocytes Absolute Auto 0.5 X10*3/uL (0.1-1.2); Neutrophils Absolute Auto 6.8 x10*3/uL (2.0-8.3); Neutrophils Percent Auto 89.7 % (45-73); PLT CLUMP 1; Red Blood Count 3.82 X10*6/uL (4.20-5.50); SCAN SMEAR FLAG 1; White Blood Count 7.6 X10*3/uL (4.8-10.8)
[2023-07-21 14:17] LABS: Influenza A PCR NEGATIVE (Negative); Influenza B PCR NEGATIVE (Negative); Resp Syncy Virus RNA Qual PCR NEGATIVE (Negative); SARS COV2 PCR INHOUSE NEGATIVE (Negative)
[2023-07-21 14:20] LABS: Lactic Acid 8.3 mmol/L (0.5-2.0)
[2023-07-21 14:27] LABS: Troponin-I High Sensitivity 14.7 ng/L (<3.5-17.0)
[2023-07-21 14:36] LABS: Mean Platelet Volume 11.8 fL (9.4-12.3); Platelet Count 73 X10*3/uL (160-400); SLIDE REVIEW VERIFIED
--- NOTE | 2023-07-21 14:57 | PC.NURSE ---
increasing fatigue. still hot to touch. tachipnic. follows commads. c/o headache. MD aware of persistent headache. nsr on monitor. 2nd RN to attempt 2nd line again. Fluids under pressure.
[2023-07-21] MEDS: Insulin Regular, Human 100 UNIT/ML 3 ML VIAL 10 UNIT IVPUSH (15:03)
[2023-07-21 15:26] LABS: Appearance Urine Clear; Color Urine Yellow; Glucose Urine UA 250 mg/dL (Negative); Leukocyte Esterase Urine Negative (Negative); Nitrite Urine Negative (Negative); Specific Gravity - Urine 1.015 (1.005-1.025); Urine Blood Negative (Negative); Urine Ketones Negative (Negative); Urine Protein Negative (Neg-Trace)
[2023-07-21 15:31] LABS: Bacteria Urine None Seen (None Seen); RBC Urine 0-2 /HPF (0-2); Squamous Epithelial Cell Urine 0-2 /HPF (0-2); WBC Urine 0-5 /HPF (0-5)
[2023-07-21 15:56] LABS: Glucose, Whole Blood 313 mg/dL (60-115)
[2023-07-21] MEDS: Ketorolac Tromethamine 15 MG/ML VIAL IVPUSH (15:57)
[2023-07-21] MEDS: Azithromycin 500 MG in 0.9 % Sodium Chloride 250 ML 125 MG IV (15:57)
[2023-07-21 16:04] LABS: Beta-Hydroxybutyrate 0.11 mmol/L (0.02-0.27)
[2023-07-21 16:05] LABS: Reflex Lactate? Lactic Acid Added
--- NOTE | 2023-07-21 16:08 | PC.NURSE ---
remains alert. increasing and audible wheezes and nausea. spitting thick mucous. walter and camille requested of .
[2023-07-21] MEDS: Albuterol/Iprat 2.5/0.5MG 3 ML AMPUL.NEB INHALE (16:18)
[2023-07-21] MEDS: ondansetron HCL 4 MG/2 ML VIAL IVPUSH (16:21)
[2023-07-21] MEDS: methylPREDNISolone Sod Succ 125 MG/2 ML VIAL IVPUSH (16:31)
[2023-07-21] MEDS: 0.9 % Sodium Chloride 500 ML IV (16:56)
--- NOTE | 2023-07-21 16:59 | PC.NURSE ---
daughter, padma, given second telephone update from this rn. confirms full code status and plans to visit at some point.
[2023-07-21] MEDS: Albumin Human 25 % 100 ML IV ×2 (17:12→18:41)
[2023-07-21] MEDS: Heparin Sodium,Porcine 5,000 UNIT/ML VIAL 5000 UNIT SUBCUT ×2 (17:15→23:56)
--- NOTE | 2023-07-21 17:20 | PC.NURSE ---
daughter at bedside. pt was able to open eyes with mild physical stimuli. now having a conversation with daughter. mentation is baseline.
[2023-07-21 17:26] LABS: ~Lactic Acid-LAB USE ONLY 5.1 mmol/L (0.5-2.0)
[2023-07-21 17:30] LABS: Glucose, Whole Blood 217 mg/dL (60-115)
--- NOTE | 2023-07-21 18:05 | PHA.MEDREC ---
Pharmacy Consult ? Medication Reconciliation Pharmacy has completed the medication reconciliation. used claim history and patient portal that her daughter had access to for verification of meds. Called Jorge in [place] to confirm Lantus units.
--- NOTE | 2023-07-21 18:43 | PC.NURSE ---
report given to ICU nurse. This rn transfering patient to ICU.
[2023-07-21 18:51] LABS: Reflex Lactate? 2 Y
[2023-07-21 19:33] LABS: Glucose, Whole Blood 245 mg/dL (60-115)
--- NOTE | 2023-07-21 20:22 | PM.CCHP ---
History of Present Illness Date of Service: 07/21/23 Attending physician on admission: Nolan Steele Chief Complaint: Pneumonia Ms. 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 asthma, GERD,anemia of chronic disease, pancytopenia, chronic constipation, insulin-dependent type 2 diabetes not compliant with medications, and depression who presented to the emergency room today with coughing, congestion, upper respiratory symptoms, shortness of breath, feeling weak and tired.? On arrival to the ER,? her BP was 126/65, heart rate 106, respiratory rate 29, satting 94% on room air.? She was febrile temp 103.8 F. Laboratory data significant for CO2 14,? glucose 419,? beta hydroxybutyrate 0.11, initial lactic acid 8.3,? T bili 2.2, D bili 1.0, AST 47, albumin? 2.8. VBG showed pH 7.25, pCO2 42, PO2 46, HC03 18, B.E. -7.8. UA was negative for UTI. ?Respiratory panel negative for influenza, RSV, COVID. Imaging: XR/XR chest 1V IMPRESSION: Limited examination due to rotation. New right lower lung airspace disease without overt interstitial edema. Favor pneumonia. Stable to slightly increased small right effusion. ED course: The patient received 2400 mL normal saline per sepsis protocol, ? Two bags 25% albumin, additional 500 mL normal saline, Solu-Medrol 125 mg, Zofran 4 mg, a Zithromax in 500 mg, ceftriaxone 1 g, 10 units regular insulin, Toradol 15 mg,? and acetaminophen 650 mg. 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) Asthma (08/30/21) Arthritis Anxiety and depression Anemia of chronic disease Congestive heart failure Depression Type 2 diabetes mellitus Chronic constipation GERD (gastroesophageal reflux disease) Asthma-COPD overlap syndrome Hypothyroidism History of hepatitis C Hepatic cirrhosis Hypertension Social History Social History Household Members: None Household Members Other:: two daughters, two grandchildren and son-in-law Housing: Other Housing Other:: Multifamily Do you presently have visiting nurse or other home services: No Patient Tobacco Use Status: Never used Tobacco Tobacco use type: Cigarette Smoked in Last 30 Days: No Second Hand Smoke Exposure: No Use of substances other than those prescribed or required for medical reasons: No Substance Use Type: Crack/Cocaine and Marijuana Have you been hit, kicked, punched, or otherwise hurt by someone within the past year? If so, by whom?: No Do you feel safe in your current relationship?: No Current Relationship Is there a partner from a previous relationship who is making you feel unsafe now?: No Are you made to feel afraid or neglected: No Advance Directives: Yes Advance Directives Information Provided: No Advance Directives on File: No Advance Directives Date on File: 07/21/23 Do you have thoughts of harming others: None Do you have a plan to hurt others: No Plan Recently lost weight without trying: No How much weight loss: Not applicable Eating poorly because of decreased appetite: No Nutrition screen score: 0 Nutrition Risks: No Nutritional Risk Patient : No : No Poor oral hygiene: No service: No Sexual orientation: Straight/Heterosexual Meds Allergies Allergy/AdvReac Type Severity Reaction Status Date / Time aspirin Allergy Unknown Verified 07/21/23 12:59 bee pollen [bee stings] Allergy Unknown Verified 07/21/23 12:59 Penicillins Allergy Unknown Verified 07/21/23 12:59 Active Medications: Current Medications Albuterol Sulfate (Albuterol Sulfate (0.083%) 2.5 Mg/3 Ml Vial.Neb) 2.5 mg INHALE Q3H PRN PRN Reason: Wheezing Cyanocobalamin (Cyanocobalamin (Vitamin B-12) 1,000 Mcg Tablet) 1,000 mcg PO DAILY [facility]ENA Dextrose (Dextrose 50 % 25 Gm/50 Ml Syringe) 25 gm IVPUSH Q30M PRN PRN Reason: BG < 70 Escitalopram Oxalate (Escitalopram Oxalate 20 Mg Tablet) 20 mg PO DAILY ZENA Gabapentin (Gabapentin 100 Mg Capsule) 200 mg PO TID ZENA Heparin Sodium (Porcine) (Heparin Sodium,Porcine 5,000 Unit/Ml Vial) 5,000 unit SUBCUT Q8H ZENA Last Admin: 07/21/23 17:15 Dose: 5,000 unit Hydroxyzine HCl (Hydroxyzine Hcl 25 Mg Tablet) 25 mg PO Q6H PRN PRN Reason: Anxiety Sodium Chloride (Ns) 1,000 mls @ 100 mls/hr IVCONT .Q10H [facility] Last Admin: 07/21/23 17:43 Dose: Not Given Ceftriaxone Sodium 1 gm/ (Sodium Chloride) 50 mls @ 100 mls/hr IV Q24H ZENA Azithromycin 500 mg/ Sodium (Chloride) 250 mls @ 125 mls/hr IV Q24H [facility] Insulin Glargine (Insulin Glargine,Hum.Rec.Anlog 100 Unit/Ml 10 Ml Vial) 20 unit SUBCUT BEDTIME [facility] Insulin Human Lispro (Insulin Lispro 100 Unit/Ml 3 Ml Vial) 0 unit SUBCUT QIDACHS [facility]; Protocol Lactulose (Lactulose 20 Gm/30 Ml Solution) 20 gm PO TID [facility] Levothyroxine Sodium (Levothyroxine Sodium 25 Mcg Tablet) 25 mcg PO DAILY ZENA Montelukast Sodium (Montelukast Sodium 10 Mg Tablet) 10 mg PO DAILY [facility]ENA Non-Formulary Medication (Pantoprazole) 40 mg PO BID [facility] Non-Formulary Medication (Umeclidinium [Incruse Ellipta]) 1 inhalation INHALE DAILY [facility] Non-Formulary Medication (Rosuvastatin) 5 mg PO DAILY [facility] Non-Formulary Medication (Trospium) 60 mg PO 1XD [facility] Olanzapine (Olanzapine 5 Mg Tablet) 5 mg PO DAILY [facility]ENA Rifaximin (Rifaximin 550 Mg Tablet) 550 mg PO BID ZENA Spironolactone (Spironolactone 25 Mg Tablet) 50 mg PO DAILY ZENA; Protocol Home Medications Medication Instructions Recorded Confirmed Last Taken Type calcium citrate 315 mg 1 tab PO DAILY 07/21/23 07/21/23 Unknown History calcium-vitamin D3 6.25 mcg (250 unit) tablet cyanocobalamin (vitamin B-12) 1,000 mcg PO DAILY 07/21/23 07/21/23 Unknown History 1,000 mcg tablet docusate sodium 100 mg capsule 100 mg PO BID PRN Constipation 07/21/23 07/21/23 Unknown History ferrous sulfate 325 mg (65 mg 325 mg PO BID 07/21/23 07/21/23 Unknown History iron) tablet insulin glargine 100 unit/mL (3 36 unit subcut BEDTIME 07/21/23 07/21/23 Unknown History mL) subcutaneous pen (Lantus Solostar U-100 Insulin) montelukast 10 mg tablet 10 mg PO DAILY 07/21/23 07/21/23 Unknown History polyethylene glycol 3350 17 gram 17 g PO BID PRN Constipation 07/21/23 07/21/23 Unknown History oral powder packet potassium chloride 10 mEq 10 meq PO DAILY 07/21/23 07/21/23 Unknown History capsule,extended release rifaximin 550 mg tablet (Xifaxan) 550 mg PO BID 07/21/23 07/21/23 Unknown History sennosides 8.6 mg tablet (Senna 8.6 mg PO BEDTIME PRN Constipation 07/21/23 07/21/23 Unknown History Lax) Physical Exam Vital Signs: Vital Signs: Last Vital Signs Temp 99.3 F 07/21/23 20:00 Pulse 97 07/21/23 20:00 Resp 21 H 07/21/23 20:00 BP 116/57 L 07/21/23 20:00 Pulse Ox 92 07/21/23 20:00 O2 Del Method Room Air 07/21/23 20:00 BMI result Body Mass Index 35.5 Const: General: no acute distress and alert Orientation/consciousness: patient oriented x3 (answering appropriately.) HEENT: Head: Yes normocephalic and Yes atraumatic General nose exam: Normal external nose present (Nares patent, septum midline, sinuses nontender bilaterally.) Mouth: Normal oral and palatal mucosa present (No thrush, tongue in midline, mucosa moist.) Throat: Yes other (No erythema, no exudate.) Neck: Neck: Yes supple (no thyromegaly, trachea midline.) Carotids: normal carotid upstroke Resp: Auscultation: crackles on the right at the base Cardio: Jugular venous distension: no JVD Rate: regular rate Rhythm: regular rhythm Heart sounds: no gallops, no murmurs and no rubs Peripheral pulses: Peripheral pulses 2+ throughout GI: Palpation (GI): Soft to palpation (nondistended.) and nontender Skin: General skin exam: no rashes or lesions noted Neuro: General: patient oriented x3 (answering appropriately.) Extrem: General: Yes full ROM, Yes capillary refill normal and Yes no clubbing, cyanosis or edema Psych: Affect: normal affect Attitude: cooperative Results Labs 07/21/23 14:01 07/21/23 13:32 Labs: Laboratory Results - last 24 hr 07/21/23 07/21/23 07/21/23 13:03 13:32 14:01 MCV 91.1 MCH 29.3 MCHC 32.2 RDW 14.0 Plt Count 73 L D MPV 11.8 Immature Gran % (Auto) 1.1 H Neut % (Auto) 89.7 H Lymph % (Auto) 2.1 L [place] % (Auto) 7.0 Eos % (Auto) 0.0 Baso % (Auto) 0.1 Lymph # (Auto) 0.2 L [place] # (Auto) 0.5 Eos # (Auto) 0.0 Baso # (Auto) 0.0 Abs Immat Gran (auto) 0.08 H Absolute Neuts (auto) 6.8 Absolute Nucleated RBC 0.000 Nucleated RBC % (auto) 0.0 Smear Tech's Comments VERIFIED VBG pH VBG pCO2 VBG pO2 VBG HCO3 VBG O2 Saturation VBG Base Excess Anion Gap 22 H Estim Creat Clear Calc 50.2 Estimated GFR 59 POC Glucose 374 H* Random Glucose 419 H* Lactic Acid 8.3 H* Lactic Acid F/U @ 2Hr Lactic Acid F/U @ 4Hr Calcium 8.8 Total Bilirubin 2.2 H Direct Bilirubin 1.0 H AST 47 H ALT 21 Alkaline Phosphatase 98 Total Protein 6.0 L Albumin 2.8 L Beta-Hydroxybutyrate Urine Color Urine Appearance Urine pH Ur Specific [place] Urine Protein Urine Glucose (UA) Urine Ketones Urine Blood Urine Nitrite Ur Leukocyte Esterase Urine RBC Urine WBC Ur Squamous Epith Cells Urine Bacteria Hyaline Casts Influenza Type A (PCR) NEGATIVE Influenza Type B (PCR) NEGATIVE RSV RNA Qual (PCR) NEGATIVE SARS-CoV-2 RNA (RT-PCR) NEGATIVE 07/21/23 07/21/23 07/21/23 14:03 15:17 15:42 MCV MCH MCHC RDW Plt Count MPV Immature Gran % (Auto) Neut % (Auto) Lymph % (Auto) [place] % (Auto) Eos % (Auto) Baso % (Auto) Lymph # (Auto) [place] # (Auto) Eos # (Auto) Baso # (Auto) Abs Immat Gran (auto) Absolute Neuts (auto) Absolute Nucleated RBC Nucleated RBC % (auto) Smear Tech's Comments VBG pH 7.25 L VBG pCO2 42 VBG pO2 46 VBG HCO3 18 L VBG O2 Saturation 65.0 VBG Base Excess -7.8 Anion Gap Estim Creat Clear Calc Estimated GFR POC Glucose Random Glucose Lactic Acid Lactic Acid F/U @ 2Hr Lactic Acid F/U @ 4Hr Calcium Total Bilirubin Direct Bilirubin AST ALT Alkaline Phosphatase Total Protein Albumin Beta-Hydroxybutyrate 0.11 Urine Color Yellow Urine Appearance Clear Urine pH 6.0 Ur Specific [place] 1.015 Urine Protein Negative Urine Glucose (UA) 250 H Urine Ketones Negative Urine Blood Negative Urine Nitrite Negative Ur Leukocyte Esterase Negative Urine RBC 0-2 Urine WBC 0-5 Ur Squamous Epith Cells 0-2 Urine Bacteria None Seen Hyaline Casts 3-5 Influenza Type A (PCR) Influenza Type B (PCR) RSV RNA Qual (PCR) SARS-CoV-2 RNA (RT-PCR) 07/21/23 07/21/23 07/21/23 15:50 16:49 17:26 MCV MCH MCHC RDW Plt Count MPV Immature Gran % (Auto) Neut % (Auto) Lymph % (Auto) [place] % (Auto) Eos % (Auto) Baso % (Auto) Lymph # (Auto) [place] # (Auto) Eos # (Auto) Baso # (Auto) Abs Immat Gran (auto) Absolute Neuts (auto) Absolute Nucleated RBC Nucleated RBC % (auto) Smear Tech's Comments VBG pH VBG pCO2 VBG pO2 VBG HCO3 VBG O2 Saturation VBG Base Excess Anion Gap Estim Creat Clear Calc Estimated GFR POC Glucose 313 H 217 H Random Glucose Lactic Acid Lactic Acid F/U @ 2Hr 5.1 H* Lactic Acid F/U @ 4Hr Calcium Total Bilirubin Direct Bilirubin AST ALT Alkaline Phosphatase Total Protein Albumin Beta-Hydroxybutyrate Urine Color Urine Appearance Urine pH Ur Specific [place] Urine Protein Urine Glucose (UA) Urine Ketones Urine Blood Urine Nitrite Ur Leukocyte Esterase Urine RBC Urine WBC Ur Squamous Epith Cells Urine Bacteria Hyaline Casts Influenza Type A (PCR) Influenza Type B (PCR) RSV RNA Qual (PCR) SARS-CoV-2 RNA (RT-PCR) 07/21/23 07/21/23 19:06 19:26 MCV MCH MCHC RDW Plt Count MPV Immature Gran % (Auto) Neut % (Auto) Lymph % (Auto) [place] % (Auto) Eos % (Auto) Baso % (Auto) Lymph # (Auto) [place] # (Auto) Eos # (Auto) Baso # (Auto) Abs Immat Gran (auto) Absolute Neuts (auto) Absolute Nucleated RBC Nucleated RBC % (auto) Smear Tech's Comments VBG pH VBG pCO2 VBG pO2 VBG HCO3 VBG O2 Saturation VBG Base Excess Anion Gap Estim Creat Clear Calc Estimated GFR POC Glucose 245 H Random Glucose Lactic Acid Lactic Acid F/U @ 2Hr Lactic Acid F/U @ 4Hr 6.0 H* Calcium Total Bilirubin Direct Bilirubin AST ALT Alkaline Phosphatase Total Protein Albumin Beta-Hydroxybutyrate Urine Color Urine Appearance Urine pH Ur Specific [place] Urine Protein Urine Glucose (UA) Urine Ketones Urine Blood Urine Nitrite Ur Leukocyte Esterase Urine RBC Urine WBC Ur Squamous Epith Cells Urine Bacteria Hyaline Casts Influenza Type A (PCR) Influenza Type B (PCR) RSV RNA Qual (PCR) SARS-CoV-2 RNA (RT-PCR) Imaging Radiologist's Impressions: Impressions Chest X-Ray 07/21/23 14:28 IMPRESSION: Limited examination due to rotation. New right lower lung airspace disease without overt interstitial edema. Favor pneumonia. Stable to slightly increased small right effusion. Assessment and Plan (1) Sepsis: Qualifiers: Sepsis acute organ dysfunction status: unspecified Sepsis type: sepsis due to unspecified organism Qualified Code(s): A41.9 - Sepsis, unspecified organism Status: Acute (2) Pneumonia: Qualifiers: Laterality: right Lung location: lower lobe of lung Pneumonia type: due to unspecified organism Qualified Code(s): J18.9 - Pneumonia, unspecified organism Status: Acute (3) Asthma: Qualifiers: Asthma complication type: unspecified Asthma persistence: unspecified Asthma severity: unspecified severity Qualified Code(s): J45.909 - Unspecified asthma, uncomplicated Status: Acute (4) Anxiety and depression: Status: Acute (5) Anemia of chronic disease: Status: Acute Plan Plan: 72-year-old female with history of 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 Neuro: ? ? No acute issues Cardiac: ?EKG? with no ischemic changes.? Sepsis: hypotension,? lactic acidosis. Pneumonia likely the source. Fluid resuscitated with approx 2.4L in ED. Will add pressor if needed.? Pulmonary: Hx COPD, asthma. Pneumonia noted on x-ray. Monitor O2 requirements. ? Albuterol p.r.n. Continue Ceftriaxone, azithromycin. Renal:? No acute issues. Endo: ?no acute issues. GI: history of hepatic cirrhosis. ? Continue home meds. Continue to trend LFTs. ID: sepsis likely due to pneumonia. Volume resuscitated in the ER. Received ceftriaxone, ? Azithromycin.? Blood cultures pending.? Continue antibiotics. Heme/Onc: ?Hx anemia of chronic disease.? No acute issues. Psych: Hx of depression previously admitted to [facility]. ? No acute issues.? Continue home meds. Diet: Diabetic Prophylaxis: pneumo boots
[2023-07-21 21:09] LABS: Glucose, Whole Blood 263 mg/dL (60-115)
[2023-07-21] MEDS: Insulin Lispro 100 UNIT/ML 3 ML VIAL SUBCUT (21:18)
[2023-07-22] VITALS (17 sets, daily range): BP systolic 104–131; BP diastolic 44–77; PULSE 77–128; RESP 14–25; TEMP 36.1–36.7; O2SAT 89–98; BMI 35.8
--- NOTE | 2023-07-22 | ECG_ITS ---
Test Reason : check QTc and send to Dr trujillo Blood Pressure : / mmHG Vent. Rate : 089 BPM Atrial Rate : 089 BPM P-R Int : 138 ms QRS Dur : 078 ms QT Int : 368 ms P-R-T Axes : 077 068 049 degrees QTc Int : 447 ms Sinus rhythm with marked sinus arrhythmia Otherwise normal ECG When compared with ECG of 21-JUL-2023 14:04, QT has shortened Referred By: Dianne Trujillo Electronically Signed By:Jesus Barnard
[2023-07-22 00:29] LABS: Glucose, Whole Blood 318 mg/dL (60-115)
[2023-07-22] MEDS: Insulin Glargine,Hum.rec.anlog 100 UNIT/ML 10 ML VIAL 20 UNIT SUBCUT (00:29)
[2023-07-22 05:14] LABS: VBG Base Excess -4.5 mmol/L; VBG HCO3 17 mmol/L (22-26); VBG pCO2 24 mmHg; VBG pH 7.47 (7.32-7.43); VBG pO2 95 mmHg
[2023-07-22 05:17] LABS: Venous Blood Gas Refer to POC result
[2023-07-22 05:35] LABS: Mean Corpuscular Hemoglobin 29.1 pg (27.0-33.0); PLT CLUMP 1; Red Cell Distribution Width 13.8 % (11.0-16.0)
[2023-07-22 05:36] LABS: Hematocrit 28.8 % (37.0-47.0); Hemoglobin 9.3 g/dl (12.0-16.0); Mean Corpuscular HGB Conc 32.3 g/dl (31.0-35.0); Mean Platelet Volume 12.2 fL (9.4-12.3)
[2023-07-22 05:38] LABS: Platelet Count 50 X10*3/uL (160-400); White Blood Count 5.4 X10*3/uL (4.8-10.8)
[2023-07-22 05:58] LABS: Albumin Level 3.4 g/dL (3.5-5.0); Anion Gap 16 (12-20); Blood Urea Nitrogen 27 mg/dL (9-16); Calcium 8.4 mg/dL (8.4-10.2); Carbon Dioxide 16 mmol/L (22-29); Chloride 107 mmol/L (96-108); Creatinine Clr Calc Pharmacy 40.5; Estimated Glomerular Filt Rate 46; Glucose Random 371 mg/dL (60-115); Magnesium 1.9 mg/dL (1.6-2.6); Phosphorus 3.4 mg/dL (2.7-4.5); Potassium 4.2 mmol/L (3.3-5.1); Sodium 135 mmol/L (135-145)
[2023-07-22 06:00] LABS: Band Neutrophils Percent 22 % (3-5); Lymphocytes Absolute Manual 0.1 X10*3/uL (1.2-4.9); Lymphocytes Percent Manual 2 % (20-40); Metamyelocytes Absolute 0.1 X10*3/uL; Metamyelocytes Percent 2 %; Monocytes Absolute Manual 0.1 X10*3/uL (0.1-1.2); Monocytes Percent Manual 1 % (2-11); Neutrophils Absolute Manual 5.1 X10*3/uL (2.0-8.3); Neutrophils Percent Manual 73 % (45-73)
[2023-07-22 06:01] LABS: Acanthocytes 1+ (0-2) /OIF; Dohle Bodies PRESENT; Ovalocytes 1+ (5-14) /OIF; Platelet Estimate DECREASED (NORMAL); Platelet Morphology Comment NORMAL; RBC Morphology NOTED; Toxic Vacuolation PRESENT
[2023-07-22 06:14] LABS: Glucose, Whole Blood 339 mg/dL (60-115)
[2023-07-22] MEDS: Levothyroxine Sodium 25 MCG TABLET PO (06:16)
[2023-07-22] MEDS: Omeprazole 20 MG CAPSULE.DR PO ×2 (06:16→15:45)
[2023-07-22 07:33] LABS: Glucose, Whole Blood 343 mg/dL (60-115)
[2023-07-22] MEDS: Tiotropium Bromide 2.5 mcg 1 PUFF/2.5 MCG MIST.INHAL INHALE (08:21)
[2023-07-22] MEDS: Spironolactone 25 MG TABLET 50 MG PO (08:44)
[2023-07-22] MEDS: Lactulose 20 GM/30 ML SOLUTION PO ×3 (08:44→22:00)
[2023-07-22] MEDS: Escitalopram Oxalate 20 MG TABLET PO (08:44)
[2023-07-22] MEDS: Insulin Lispro 100 UNIT/ML 3 ML VIAL SUBCUT ×4 (08:44→21:59)
[2023-07-22] MEDS: Calcium + Vitamin D 250 MG TABLET PO (08:45)
[2023-07-22] MEDS: Cyanocobalamin (Vitamin B-12) 1,000 MCG TABLET 1000 MCG PO (08:45)
[2023-07-22] MEDS: Ferrous Sulfate 324 MG TABLET.DR PO ×2 (08:45→22:00)
[2023-07-22] MEDS: OLANZapine 5 MG TABLET PO (08:45)
[2023-07-22] MEDS: Atorvastatin Calcium 20 MG TABLET PO (08:45)
[2023-07-22] MEDS: Montelukast Sodium 10 MG TABLET PO (08:45)
[2023-07-22] MEDS: rifAXIMin 550 MG TABLET PO ×2 (08:45→22:00)
[2023-07-22] MEDS: Gabapentin 100 MG CAPSULE 200 MG PO ×3 (08:45→22:00)
[2023-07-22] MEDS: 0.9 % Sodium Chloride Flush 3 ML SYRINGE IVFLUSH ×2 (08:47→17:13)
--- NOTE | 2023-07-22 10:18 | MHC.CM.PN ---
Met w/pt and spoke w/dtr (HCP) Vicki to review d/c plans Pt resides at [facility]. She has no additional services, uses a walker and cane and transportation is provided by family or arranged by [facility]. IMM in chart, HCP requested from Vicki Pt receptive to [facility] referral for skilled RN visits. Vicki to transport pt to [facility]. CM to follow
--- NOTE | 2023-07-22 11:01 | PC.NURSE ---
Addendum entered by Woody Velez RN 07/22/23 14:51: Report given to Nadeen DUEÑAS - patient transferred to floor @ approx 1315. Oriented to unit - call abdi within reach. Lunch from kitchen brought to bedside. Bed alarm on for patient safety. Original Note: Assumed care at approx 0715. Patient alert and oriented - pleasant and cooperative with care. BP stable. Dr Steele made aware of H&H decrease in morning labs, as well as Platelets - order to hold SubQ heparin for morning dose. Patient had small formed BM. Jensen removed at approx 10am. Pericare done. Order for transfer to med-surg - awaiting bed.
[2023-07-22 11:48] LABS: Glucose, Whole Blood 339 mg/dL (60-115)
--- NOTE | 2023-07-22 14:45 | PM.EVENT ---
Event Note Date of Service: 07/22/23 Event Note: Day hospitalist update S: coughing but not hypoxic; wheezing This history was taken in [place]an from the patient. O: Temp Pulse Resp BP Pulse Ox O2 Del Method 97.7 F 85 19 116/44 L 94 Room Air 07/22/23 09:00 07/22/23 09:00 07/22/23 09:00 07/22/23 09:00 07/22/23 09:00 07/22/23 09:00 Gen: in no acute distress HEENT: sclera anicteric, moist mucus membranes Neck: supple Lungs: insp crackles R base, diffuse exp wheeze Heart: regular rate and rhythm, no murmurs Abd: soft, non-tender, non-distended Ext: no edema Skin: warm/well-perfused Neuro: alert and oriented x3, no focal findings Psych: appropriate affect A/P: d2 72yo F with HCV cirrhosis, HF unknown EF, HTN, hypothyroidism, COPD/asthma, GERD, anemia of chronic disease, pancytopenia, chronic constipation, DM2, and depression admitted to ICU for sepsis due to pneumonia. Did not require pressors so stepped down to M/S today. PNA - 07/21- ceftriaxone/azithro- >change to doxy 07/22- given prolonged QTc, follow BCx, trend PCT [9.44 today], check RPP QTc prolongation - recheck EKG lactic acidosis - due to cirrhosis COPD/asthma with acute exac - methylprednisolone 07/22- - standing/prn nebs - Spiriva, Singulair hx hepatic encephalopathy - lactulose/rifaximin hypothyroidism - continue LT4 thrombocytopenia - due to sepsis + cirrhosis anemia - continue iron GERD - PPI HTN - spironolactone DM2 with hyperglycemia - basal/bolus insulin- increase doses depression - escitalopram, olanzapine VTE ppx - d/c heparin given thrombocytopenia; use SCDs dispo - TBD In my clinical judgment, the patient requires continued inpatient hospitalization for the following reasons: IV ABX Time Spent With Patient Time: Total time managing care of this patient today ____ minutes.
[2023-07-22] MEDS: cefTRIAXone sodium 1 GM in 0.9 % Sodium Chloride 50 ML IV (14:46)
--- NOTE | 2023-07-22 14:58 | P.PNCC_ITS ---
Subjective Subjective Date of Service: 07/22/23 Interval History: 72-year-old lady with underlying hepatitis-C cirrhosis, congestive heart failure, hypertension, COPD, diabetes mellitus, pancytopenia admitted on 07/21/2023 with complaints of dyspnea. On ER evaluation patient with significant lactic acidosis admitted to the intensive care unit and started on empiric antibiotics. No events overnight. Respiratory status improved. Critical Care Time (minutes): 0 Physical Exam 2 Vital Signs: Vital Signs: Last Vital Signs Temp 97.7 F 07/22/23 09:00 Pulse 85 07/22/23 09:00 Resp 19 07/22/23 09:00 BP 116/44 L 07/22/23 09:00 Pulse Ox 94 07/22/23 09:00 O2 Del Method Room Air 07/22/23 09:00 BMI result Body Mass Index 35.8 Const: General: no acute distress, alert and awake Eyes: Sclerae: sclerae normal EOM: EOMs intact bilaterally Neck: Neck: Yes no lymphadenopathy, Yes trachea midline and Yes supple Resp: Effort & Inspection: normal respiratory effort and no respiratory distress Auscultation: clear to auscultation bilaterally Cardio: Rate: regular rate Rhythm: regular rhythm Heart sounds: no gallops, no murmurs and no rubs GI: Palpation (GI): Soft to palpation and Other GI palpation findings present ( Nontender) Auscultation: normal bowel sounds Extrem: General: Yes no pedal edema, No clubbing and No cyanosis Objective Data Labs 07/22/23 05:05 07/22/23 05:05 Labs: Laboratory Results - last 24 hr 07/21/23 07/21/23 07/21/23 15:17 15:42 15:50 WBC RBC Hgb Hct MCV MCH MCHC RDW Plt Count MPV Immature Gran % (Auto) Neut % (Auto) Lymph % (Auto) [place] % (Auto) Eos % (Auto) Baso % (Auto) Lymph # (Auto) [place] # (Auto) Eos # (Auto) Baso # (Auto) Abs Immat Gran (auto) Absolute Neuts (auto) Absolute Nucleated RBC Nucleated RBC % (auto) Neutrophils % (Manual) Band Neutrophils % Lymphocytes % (Manual) Monocytes % (Manual) Metamyelocytes % Abs Neuts (Manual) Lymphocytes # (Manual) Monocytes # (Manual) Metamyelocytes # Toxic Vacuolation Dohle Bodies Platelet Estimate Plt Morphology Comment RBC Morphology Ovalocytes Acanthocytes (Spur) VBG pH VBG pCO2 VBG pO2 VBG HCO3 VBG O2 Saturation VBG Base Excess Sodium Potassium Chloride Carbon Dioxide Anion Gap BUN Creatinine Estim Creat Clear Calc Estimated GFR POC Glucose 313 H Random Glucose Lactic Acid F/U @ 2Hr Lactic Acid F/U @ 4Hr Calcium Phosphorus Magnesium Albumin Beta-Hydroxybutyrate 0.11 Urine Color Yellow Urine Appearance Clear Urine pH 6.0 Ur Specific [place] 1.015 Urine Protein Negative Urine Glucose (UA) 250 H Urine Ketones Negative Urine Blood Negative Urine Nitrite Negative Ur Leukocyte Esterase Negative Urine RBC 0-2 Urine WBC 0-5 Ur Squamous Epith Cells 0-2 Urine Bacteria None Seen Hyaline Casts 3-5 07/21/23 07/21/23 07/21/23 16:49 17:26 19:06 WBC RBC Hgb Hct MCV MCH MCHC RDW Plt Count MPV Immature Gran % (Auto) Neut % (Auto) Lymph % (Auto) [place] % (Auto) Eos % (Auto) Baso % (Auto) Lymph # (Auto) [place] # (Auto) Eos # (Auto) Baso # (Auto) Abs Immat Gran (auto) Absolute Neuts (auto) Absolute Nucleated RBC Nucleated RBC % (auto) Neutrophils % (Manual) Band Neutrophils % Lymphocytes % (Manual) Monocytes % (Manual) Metamyelocytes % Abs Neuts (Manual) Lymphocytes # (Manual) Monocytes # (Manual) Metamyelocytes # Toxic Vacuolation Dohle Bodies Platelet Estimate Plt Morphology Comment RBC Morphology Ovalocytes Acanthocytes (Spur) VBG pH VBG pCO2 VBG pO2 VBG HCO3 VBG O2 Saturation VBG Base Excess Sodium Potassium Chloride Carbon Dioxide Anion Gap BUN Creatinine Estim Creat Clear Calc Estimated GFR POC Glucose 217 H Random Glucose Lactic Acid F/U @ 2Hr 5.1 H* Lactic Acid F/U @ 4Hr 6.0 H* Calcium Phosphorus Magnesium Albumin Beta-Hydroxybutyrate Urine Color Urine Appearance Urine pH Ur Specific [place] Urine Protein Urine Glucose (UA) Urine Ketones Urine Blood Urine Nitrite Ur Leukocyte Esterase Urine RBC Urine WBC Ur Squamous Epith Cells Urine Bacteria Hyaline Casts 07/21/23 07/21/23 07/22/23 19:26 21:04 00:24 WBC RBC Hgb Hct MCV MCH MCHC RDW Plt Count MPV Immature Gran % (Auto) Neut % (Auto) Lymph % (Auto) [place] % (Auto) Eos % (Auto) Baso % (Auto) Lymph # (Auto) [place] # (Auto) Eos # (Auto) Baso # (Auto) Abs Immat Gran (auto) Absolute Neuts (auto) Absolute Nucleated RBC Nucleated RBC % (auto) Neutrophils % (Manual) Band Neutrophils % Lymphocytes % (Manual) Monocytes % (Manual) Metamyelocytes % Abs Neuts (Manual) Lymphocytes # (Manual) Monocytes # (Manual) Metamyelocytes # Toxic Vacuolation Dohle Bodies Platelet Estimate Plt Morphology Comment RBC Morphology Ovalocytes Acanthocytes (Spur) VBG pH VBG pCO2 VBG pO2 VBG HCO3 VBG O2 Saturation VBG Base Excess Sodium Potassium Chloride Carbon Dioxide Anion Gap BUN Creatinine Estim Creat Clear Calc Estimated GFR POC Glucose 245 H 263 H 318 H Random Glucose Lactic Acid F/U @ 2Hr Lactic Acid F/U @ 4Hr Calcium Phosphorus Magnesium Albumin Beta-Hydroxybutyrate Urine Color Urine Appearance Urine pH Ur Specific [place] Urine Protein Urine Glucose (UA) Urine Ketones Urine Blood Urine Nitrite Ur Leukocyte Esterase Urine RBC Urine WBC Ur Squamous Epith Cells Urine Bacteria Hyaline Casts 07/22/23 07/22/23 07/22/23 05:05 05:08 06:10 WBC 5.4 RBC 3.20 L Hgb 9.3 L Hct 28.8 L MCV 90.0 MCH 29.1 MCHC 32.3 RDW 13.8 Plt Count 50 L D MPV 12.2 Immature Gran % (Auto) Cancelled Neut % (Auto) Cancelled Lymph % (Auto) Cancelled [place] % (Auto) Cancelled Eos % (Auto) Cancelled Baso % (Auto) Cancelled Lymph # (Auto) Cancelled [place] # (Auto) Cancelled Eos # (Auto) Cancelled Baso # (Auto) Cancelled Abs Immat Gran (auto) Cancelled Absolute Neuts (auto) Cancelled Absolute Nucleated RBC 0.000 Nucleated RBC % (auto) 0.0 Neutrophils % (Manual) 73 Band Neutrophils % 22 H Lymphocytes % (Manual) 2 L Monocytes % (Manual) 1 L Metamyelocytes % 2 Abs Neuts (Manual) 5.1 Lymphocytes # (Manual) 0.1 L Monocytes # (Manual) 0.1 Metamyelocytes # 0.1 Toxic Vacuolation PRESENT Dohle Bodies PRESENT Platelet Estimate DECREASED Plt Morphology Comment NORMAL RBC Morphology NOTED Ovalocytes 1+ (5-14) Acanthocytes (Spur) 1+ (0-2) VBG pH 7.47 H VBG pCO2 24 VBG pO2 95 VBG HCO3 17 L VBG O2 Saturation 99.0 VBG Base Excess -4.5 Sodium 135 Potassium 4.2 Chloride 107 Carbon Dioxide 16 L Anion Gap 16 BUN 27 H Creatinine 1.16 Estim Creat Clear Calc 40.5 Estimated GFR 46 POC Glucose 339 H Random Glucose 371 H* Lactic Acid F/U @ 2Hr Lactic Acid F/U @ 4Hr Calcium 8.4 Phosphorus 3.4 Magnesium 1.9 Albumin 3.4 L Beta-Hydroxybutyrate Urine Color Urine Appearance Urine pH Ur Specific [place] Urine Protein Urine Glucose (UA) Urine Ketones Urine Blood Urine Nitrite Ur Leukocyte Esterase Urine RBC Urine WBC Ur Squamous Epith Cells Urine Bacteria Hyaline Casts 07/22/23 07/22/23 07:27 11:45 WBC RBC Hgb Hct MCV MCH MCHC RDW Plt Count MPV Immature Gran % (Auto) Neut % (Auto) Lymph % (Auto) [place] % (Auto) Eos % (Auto) Baso % (Auto) Lymph # (Auto) [place] # (Auto) Eos # (Auto) Baso # (Auto) Abs Immat Gran (auto) Absolute Neuts (auto) Absolute Nucleated RBC Nucleated RBC % (auto) Neutrophils % (Manual) Band Neutrophils % Lymphocytes % (Manual) Monocytes % (Manual) Metamyelocytes % Abs Neuts (Manual) Lymphocytes # (Manual) Monocytes # (Manual) Metamyelocytes # Toxic Vacuolation Dohle Bodies Platelet Estimate Plt Morphology Comment RBC Morphology Ovalocytes Acanthocytes (Spur) VBG pH VBG pCO2 VBG pO2 VBG HCO3 VBG O2 Saturation VBG Base Excess Sodium Potassium Chloride Carbon Dioxide Anion Gap BUN Creatinine Estim Creat Clear Calc Estimated GFR POC Glucose 343 H 339 H Random Glucose Lactic Acid F/U @ 2Hr Lactic Acid F/U @ 4Hr Calcium Phosphorus Magnesium Albumin Beta-Hydroxybutyrate Urine Color Urine Appearance Urine pH Ur Specific [place] Urine Protein Urine Glucose (UA) Urine Ketones Urine Blood Urine Nitrite Ur Leukocyte Esterase Urine RBC Urine WBC Ur Squamous Epith Cells Urine Bacteria Hyaline Casts Progress Note: A&P Assessment and plan (1) Pneumonia: Status: Acute (2) Chronic hepatitis C with cirrhosis: Status: Acute (3) Asthma-COPD overlap syndrome: Status: Acute (4) Type 2 diabetes mellitus: Status: Acute Plan Assessment: 72-year-old lady with underlying hepatitis-C cirrhosis, diabetes mellitus, and asthma/COPD overlap syndrome admitted with dyspnea secondary, improved Plan: Neuro: No acute issues. Cardiac: No acute issues. Pulmonary: Community-acquired pneumonia, continue ceftriaxone and azithromycin. Renal: Lactic acidosis resolved. Continue to monitor renal indices and urine output. Endo: No acute issues. Underlying diabetes mellitus. GI: No acute issues. Underlying cirrhosis secondary to hepatitis-C. ID: Empirically covered with ceftriaxone and azithromycin for likely community- acquired pneumonia. Heme/Onc: Thrombocytopenia on the background of known pancytopenia. Psych: No acute issues. Miscellaneous: No acute issues. Prophylaxis: Pneumatic compression Diet: Regular Quality Stroke Does the patient have a stroke diagnosis?: No VTE Prior VTE?: No VTE Risk Level:: Medical - moderate - high VTE Device Contraindication: N/A - Device Ordered VTE Drug Contraindication: N/A - Med Ordered
[2023-07-22] MEDS: Albuterol Sulfate (0.083%) 2.5 MG/3 ML VIAL.NEB INHALE (15:20)
[2023-07-22] MEDS: predniSONE 20 MG TABLET 40 MG PO (15:44)
[2023-07-22 15:58] LABS: Procalcitonin 9.44 ng/mL
[2023-07-22 16:23] LABS: Glucose, Whole Blood 425 mg/dL (60-115)
[2023-07-22] MEDS: Albuterol Sulfate 7.5 MG, Albuterol/Iprat 2.5/0.5MG 3 ML 3 ML INHALE (17:10)
[2023-07-22] MEDS: Doxycycline Hyclate 100 MG in 0.9 % Sodium Chloride 250 ML 166.67 MG IV (17:11)
[2023-07-22] MEDS: methylPREDNISolone Sod Succ 40 MG/ML VIAL IVPUSH (17:12)
[2023-07-22 17:14] LABS: ABG Base Excess -5.3 mmol/L; ABG HCO3 17 mmol/L (22-26); ABG pCO2 25 mmHg (32-45); ABG pH 7.43 (7.35-7.45); ABG pO2 78 mmHg (83-108)
[2023-07-22] MEDS: Furosemide 40 MG/4 ML VIAL IVPUSH (17:45)
--- NOTE | 2023-07-22 19:47 | PC.NURSE ---
Called Radiology since stat x-ray was not done ,x-ray is being done now.elevated HR 125-132,A-fib on a monitor,lungs exp wheezes bilat,coarse crackles left base,c/o SOB,called resp therapy for treatment for this patient,Dr. Omalley notified patient denies any pain
[2023-07-22] MEDS: Albuterol/Iprat 2.5/0.5MG 3 ML AMPUL.NEB INHALE (20:37)
[2023-07-22 20:52] LABS: Glucose, Whole Blood 469 mg/dL (60-115)
--- NOTE | 2023-07-22 21:06 | PC.NURSE ---
BS 469,Dr. Omalley notified
[2023-07-22] MEDS: Insulin Glargine,Hum.rec.anlog 100 UNIT/ML 10 ML VIAL 24 UNIT SUBCUT (21:59)
[2023-07-22 23:26] LABS: Glucose, Whole Blood 467 mg/dL (60-115)
[2023-07-23] VITALS (8 sets, daily range): BP systolic 130–153; BP diastolic 61–69; PULSE 87–105; RESP 18–20; TEMP 36.2–37; O2SAT 96–100; BMI 36.1
[2023-07-23] MEDS: 0.9 % Sodium Chloride Flush 3 ML SYRINGE IVFLUSH ×4 (00:24→23:43)
[2023-07-23 04:32] LABS: Glucose, Whole Blood 434 mg/dL (60-115)
[2023-07-23 05:19] LABS: Glucose, Whole Blood 405 mg/dL (60-115)
[2023-07-23] MEDS: methylPREDNISolone Sod Succ 40 MG/ML VIAL IVPUSH (05:21)
[2023-07-23] MEDS: Doxycycline Hyclate 100 MG in 0.9 % Sodium Chloride 250 ML 166.67 MG IV ×2 (05:23→16:00)
[2023-07-23] MEDS: Levothyroxine Sodium 25 MCG TABLET PO (05:45)
[2023-07-23] MEDS: Omeprazole 20 MG CAPSULE.DR PO ×2 (05:45→15:51)
--- NOTE | 2023-07-23 06:04 | PC.NURSE ---
Evening rn reported to re check patients blood sugar at 0100 as per hospitalist orders d/t elevated blood sugars, recheck value 434 and hospitalist updated. order to recheck 0500 and 405 at that time, hospitalist ordered now insulin, then stated to cancel the 15 units he entered and use the QIDAC sliding scale. pt without any stated pain or discomforts, no s/sx hyperglycemia, will cont to monitor.
[2023-07-23 07:30] LABS: Venous Blood Gas Refer to POC result
[2023-07-23 07:34] LABS: VBG HCO3 21 mmol/L (22-26); VBG pCO2 37 mmHg; VBG pH 7.36 (7.32-7.43); VBG pO2 36 mmHg
[2023-07-23 07:39] LABS: Basophils Percent Auto 0.2 % (0-2); Hematocrit 31.8 % (37.0-47.0); Hemoglobin 10.2 g/dl (12.0-16.0); Imm Gran Abs Auto 0.08 X10*3/uL (0.00-0.03); Imm Gran Pct Auto 1.7 % (0.0-0.4); Lymphocytes Absolute Auto 0.1 X10*3/uL (1.2-4.9); Lymphocytes Percent Auto 1.3 % (20-40); MANUAL DIFF FLAG SCAN; Mean Corpuscular HGB Conc 32.1 g/dl (31.0-35.0); Mean Corpuscular Hemoglobin 29.2 pg (27.0-33.0); Mean Corpuscular Volume 91.1 fL (80.0-98.0); Monocytes Absolute Auto 0.2 X10*3/uL (0.1-1.2); Monocytes Percent Auto 3.6 % (2-11); Neutrophils Absolute Auto 4.4 x10*3/uL (2.0-8.3); Neutrophils Percent Auto 93.2 % (45-73); Red Blood Count 3.49 X10*6/uL (4.20-5.50); Red Cell Distribution Width 13.6 % (11.0-16.0); SCAN SMEAR FLAG 1; White Blood Count 4.7 X10*3/uL (4.8-10.8)
[2023-07-23 07:42] LABS: Glucose, Whole Blood 376 mg/dL (60-115)
[2023-07-23 07:42] LABS: Platelet Count 70 X10*3/uL (160-400)
[2023-07-23 07:43] LABS: INTERNATIONAL NORM RATIO 1.3 (0.9-1.1); Prothrombin Time 15.8 SEC (11.1-13.3)
[2023-07-23] MEDS: Albuterol/Iprat 2.5/0.5MG 3 ML AMPUL.NEB INHALE ×3 (07:55→19:47)
[2023-07-23] MEDS: Insulin Lispro 100 UNIT/ML 3 ML VIAL SUBCUT ×7 (07:56→21:47)
[2023-07-23] MEDS: OLANZapine 5 MG TABLET PO (07:57)
[2023-07-23] MEDS: rifAXIMin 550 MG TABLET PO ×2 (07:57→21:51)
[2023-07-23] MEDS: Cyanocobalamin (Vitamin B-12) 1,000 MCG TABLET 1000 MCG PO (07:57)
[2023-07-23] MEDS: Spironolactone 25 MG TABLET 50 MG PO (07:57)
[2023-07-23] MEDS: Calcium + Vitamin D 250 MG TABLET PO (07:57)
[2023-07-23] MEDS: Gabapentin 100 MG CAPSULE 200 MG PO ×3 (07:57→21:51)
[2023-07-23] MEDS: Escitalopram Oxalate 20 MG TABLET PO (07:58)
[2023-07-23] MEDS: Montelukast Sodium 10 MG TABLET PO (07:58)
[2023-07-23] MEDS: Atorvastatin Calcium 20 MG TABLET PO (07:58)
[2023-07-23] MEDS: Ferrous Sulfate 324 MG TABLET.DR PO ×2 (07:58→21:51)
[2023-07-23 08:09] LABS: SLIDE REVIEW VERIFIED
[2023-07-23 08:24] LABS: Estimated Average Glucose 131 mg/dL; Hemoglobin A1c % 6.2 % (<6.0)
[2023-07-23] MEDS: Tiotropium Bromide 2.5 mcg 1 PUFF/2.5 MCG MIST.INHAL INHALE (08:24)
[2023-07-23 08:28] LABS: Albumin Level 3.5 g/dL (3.5-5.0); Anion Gap 12 (12-20); Blood Urea Nitrogen 28 mg/dL (9-16); Carbon Dioxide 21 mmol/L (22-29); Chloride 106 mmol/L (96-108); Estimated Glomerular Filt Rate 47; Glucose Random 450 mg/dL (60-115); Magnesium 2.3 mg/dL (1.6-2.6); Phosphorus 2.7 mg/dL (2.7-4.5); Potassium 3.9 mmol/L (3.3-5.1); Sodium 135 mmol/L (135-145)
[2023-07-23] MEDS: Insulin Glargine,Hum.rec.anlog 100 UNIT/ML 10 ML VIAL 12 UNIT SUBCUT (08:31)
[2023-07-23] MEDS: Acetaminophen 325 MG TABLET 650 MG PO (08:32)
[2023-07-23 10:55] LABS: Adenovirus PCR Not Detected (Not Detect.); Bordetella parapertussis PCR Not Detected (Not Detect.); Bordetella pertussis PCR Not Detected (Not Detect.); Chlamydia pneumoniae PCR Not Detected (Not Detect.); Coronavirus 229E PCR Not Detected (Not Detect.); Coronavirus HKU1 PCR Not Detected (Not Detect.); Coronavirus NL63 PCR Not Detected (Not Detect.); Coronavirus OC43 PCR Not Detected (Not Detect.); Human metapneumovirus PCR Not Detected (Not Detect.); Influenza A PCR Not Detected (Not Detect.); Influenza B PCR Not Detected (Not Detect.); Mycoplasma pneumoniae PCR Not Detected (Not Detect.); Parainfluenza 1 PCR Not Detected (Not Detect.); Parainfluenza 2 PCR Not Detected (Not Detect.); Parainfluenza 3 PCR Not Detected (Not Detect.); Parainfluenza 4 PCR Not Detected (Not Detect.); RSV PCR Not Detected (Not Detect.); Rhino/Enterovirus PCR Not Detected (Not Detect.); SARS-CoV-2 PCR Not Detected (Not Detect.)
[2023-07-23 11:31] LABS: Glucose, Whole Blood 417 mg/dL (60-115)
[2023-07-23] MEDS: cefTRIAXone sodium 1 GM in 0.9 % Sodium Chloride 50 ML IV (14:00)
[2023-07-23 14:56] LABS: Glucose, Whole Blood 381 mg/dL (60-115)
--- NOTE | 2023-07-23 15:38 | PC.NURSE ---
POC @ [address] Avila notified. Sliding scale andjusted and ordered 1x dose 4units humalog. On recheck POC 381. Dr. Avila aware.
[2023-07-23 16:28] LABS: Glucose, Whole Blood 377 mg/dL (60-115)
--- NOTE | 2023-07-23 16:55 | P.PNIM_ITS ---
Subjective Subjective Date of Service: 07/23/23 Interval History: new onset afib , dm with hyperglycemia Review of Systems Patient is Malagasy-speaking: Denies any chest pain or shortness of breath or palpitation Denies any abdominal pain or fever. Physical Exam 2 Vital Signs: Vital Signs: Last Vital Signs Temp 98.1 F 07/23/23 15:41 Pulse 104 H 07/23/23 15:45 Resp 18 07/23/23 15:45 BP 130/61 07/23/23 15:41 Pulse Ox 96 07/23/23 15:41 O2 Del Method Room Air 07/23/23 15:41 O2 Flow Rate 1 07/23/23 04:00 BMI result Body Mass Index 36.1 Appearance: Alert.? Oriented X3.?sob improivng cvs: rrr, [id number] , no murmur res: air entry improving ,mild wheezin abd: no rebound or guarding ,nt, bs present. ext pulses present , no cyanosis . neuro: axo3 , nonfocal. Objective Data Active Medications Albuterol Sulfate (Albuterol Sulfate (0.083%) 2.5 Mg/3 Ml Vial.Neb) 2.5 mg INHALE Q2H PRN PRN Reason: Wheezing Albuterol/Ipratropium (Albuterol/Iprat 2.5/0.5mg 3 Ml Ampul.Neb) 3 ml INHALE RQ4H WHILE AWAKE [facility] Last Admin: 07/23/23 15:43 Dose: 3 ml Documented By: SANDRA Atorvastatin Calcium (Atorvastatin Calcium 20 Mg Tablet) 20 mg PO DAILY [facility] Last Admin: 07/23/23 07:58 Dose: 20 mg Documented By: KATELIN Calcium Carbonate/Cholecalciferol (Calcium + Vitamin D 250 Mg Tablet) 250 mg PO DAILY [facility] Last Admin: 07/23/23 07:57 Dose: 250 mg Documented By: KATELIN Cyanocobalamin (Cyanocobalamin (Vitamin B-12) 1,000 Mcg Tablet) 1,000 mcg PO DAILY [facility] Last Admin: 07/23/23 07:57 Dose: 1,000 mcg Documented By: KATELIN Dextrose (Dextrose 50 % 25 Gm/50 Ml Syringe) 25 gm IVPUSH Q30M PRN PRN Reason: BG < 70 Diltiazem HCl (Diltiazem Hcl 30 Mg Tablet) 15 mg PO QID [facility]; Protocol Enoxaparin Sodium (Enoxaparin Sodium 80 Mg/0.8 Ml Syringe) 80 mg SUBCUT Q12H [facility] Escitalopram Oxalate (Escitalopram Oxalate 20 Mg Tablet) 20 mg PO DAILY [facility] Last Admin: 07/23/23 07:58 Dose: 20 mg Documented By: KATELIN Ferrous Sulfate (Ferrous Sulfate 324 Mg Tablet.Dr) 324 mg PO BID [facility] Last Admin: 07/23/23 07:58 Dose: 324 mg Documented By: KATELIN Gabapentin (Gabapentin 100 Mg Capsule) 200 mg PO TID [facility] Last Admin: 07/23/23 14:45 Dose: 200 mg Documented By: KATELIN Hydroxyzine HCl (Hydroxyzine Hcl 25 Mg Tablet) 25 mg PO Q6H PRN PRN Reason: Anxiety Ceftriaxone Sodium 1 gm/ (Sodium Chloride) 50 mls @ 100 mls/hr IV Q24H [facility] Last Infusion: 07/23/23 14:36 Dose: Infused Documented By: KATELIN Doxycycline Hyclate 100 mg/ (Sodium Chloride) 250 mls @ 166.67 mls/hr IV Q12H [facility] Last Admin: 07/23/23 16:00 Dose: 166.67 mls/hr Documented By: NITA Insulin Glargine (Insulin Glargine,Hum.Rec.Anlog 100 Unit/Ml 10 Ml Vial) 24 unit SUBCUT BEDTIME [facility] Last Admin: 07/22/23 21:59 Dose: 24 unit Documented By: NITA Insulin Human Lispro (Insulin Lispro 100 Unit/Ml 3 Ml Vial) 0 unit SUBCUT QIDAS [facility]; Protocol Last Admin: 07/23/23 12:08 Dose: 14 unit Documented By: MOUNIKA Insulin Human Lispro (Insulin Lispro 100 Unit/Ml 3 Ml Vial) 5 unit SUBCUT QIDACHS [facility] Lactulose (Lactulose 20 Gm/30 Ml Solution) 20 gm PO TID [facility] Last Admin: 07/23/23 14:47 Dose: Not Given Documented By: KATELIN Non-Admin Reason: 3 loose stools today Levothyroxine Sodium (Levothyroxine Sodium 25 Mcg Tablet) 25 mcg PO DAILY@0600 [facility] Last Admin: 07/23/23 05:45 Dose: 25 mcg Documented By: MAGALIE Montelukast Sodium (Montelukast Sodium 10 Mg Tablet) 10 mg PO DAILY [facility] Last Admin: 07/23/23 07:58 Dose: 10 mg Documented By: KATELIN Non-Formulary Medication (Trospium) 60 mg PO 1XD [facility] Olanzapine (Olanzapine 5 Mg Tablet) 5 mg PO DAILY [facility] Last Admin: 07/23/23 07:57 Dose: 5 mg Documented By: KATELIN Omeprazole (Omeprazole 20 Mg Capsule.Dr) 20 mg PO BID@0630,1630 [facility] Last Admin: 07/23/23 15:51 Dose: 20 mg Documented By: NITA Rifaximin (Rifaximin 550 Mg Tablet) 550 mg PO BID [facility] Last Admin: 07/23/23 07:57 Dose: 550 mg Documented By: KATELIN Sodium Chloride (0.9 % Sodium Chloride Flush 3 Ml Syringe) 3 ml IVFLUSH QSHIFT [facility] Last Admin: 07/23/23 15:51 Dose: 3 ml Documented By: NITA Spironolactone (Spironolactone 25 Mg Tablet) 50 mg PO DAILY [facility]; Protocol Last Admin: 07/23/23 07:57 Dose: 50 mg Documented By: KATELIN Tiotropium [place] (Tiotropium [place] 2.5 Mcg 1 Puff/2.5 Mcg Mist.Inhal) 1 puff INHALE RDAILY [facility] Last Admin: 07/23/23 08:24 Dose: 1 puff Documented By: RHONDA Labs 07/23/23 07:21 07/23/23 07:21 Labs: Laboratory Results - last 24 hr 07/22/23 07/22/23 07/22/23 17:08 20:48 20:58 MCV MCH MCHC RDW Plt Count MPV Immature Gran % (Auto) Neut % (Auto) Lymph % (Auto) [place] % (Auto) Eos % (Auto) Baso % (Auto) Lymph # (Auto) [place] # (Auto) Eos # (Auto) Baso # (Auto) Abs Immat Gran (auto) Absolute Neuts (auto) Absolute Nucleated RBC Nucleated RBC % (auto) Smear Tech's Comments PT INR O2 Saturation 96.0 ABG pH at Pt Temp 7.43 ABG pCO2 at Pt Temp 25 L ABG pO2 at Pt Temp 78 L ABG HCO3 17 L ABG Base Excess (Actual) -5.3 VBG pH VBG pCO2 VBG pO2 VBG HCO3 VBG O2 Saturation VBG Base Excess Anion Gap Estim Creat Clear Calc Estimated GFR POC Glucose 469 H* 467 H* Random Glucose Estimat Average Glucose Hemoglobin A1c % Calcium Phosphorus Magnesium Albumin Respiratory Panel [place] Adenovirus (Rapid PCR) B.pert (TEM-PCR) B.parapertussis DNA PCR C. pneumoniae DNA (PCR) Coronavirus OC43 (PCR) Coronavirus HKU1 (PCR) Coronavirus 229E (PCR) Coronavirus NL63 (PCR) Human Metapneumovir PCR Influenza A (RT-PCR) Influenza B (RT-PCR) M. pneumoniae (PCR) Parainfluenza 1 (PCR) Parainfluenza 2 (PCR) Parainfluenza 3 (PCR) Parainfluenza 4 (PCR) RSV (PCR) Entero/Rhino (PCR) SARS-CoV-2 RNA (RT-PCR) 07/22/23 07/23/23 07/23/23 21:59 01:00 05:16 MCV MCH MCHC RDW Plt Count MPV Immature Gran % (Auto) Neut % (Auto) Lymph % (Auto) [place] % (Auto) Eos % (Auto) Baso % (Auto) Lymph # (Auto) [place] # (Auto) Eos # (Auto) Baso # (Auto) Abs Immat Gran (auto) Absolute Neuts (auto) Absolute Nucleated RBC Nucleated RBC % (auto) Smear Tech's Comments PT INR O2 Saturation ABG pH at Pt Temp ABG pCO2 at Pt Temp ABG pO2 at Pt Temp ABG HCO3 ABG Base Excess (Actual) VBG pH VBG pCO2 VBG pO2 VBG HCO3 VBG O2 Saturation VBG Base Excess Anion Gap Estim Creat Clear Calc Estimated GFR POC Glucose 434 H* 405 H* Random Glucose Estimat Average Glucose Hemoglobin A1c % Calcium Phosphorus Magnesium Albumin Respiratory Panel [place] See Note Adenovirus (Rapid PCR) Not Detected B.pert (TEM-PCR) Not Detected B.parapertussis DNA PCR Not Detected C. pneumoniae DNA (PCR) Not Detected Coronavirus OC43 (PCR) Not Detected Coronavirus HKU1 (PCR) Not Detected Coronavirus 229E (PCR) Not Detected Coronavirus NL63 (PCR) Not Detected Human Metapneumovir PCR Not Detected Influenza A (RT-PCR) Not Detected Influenza B (RT-PCR) Not Detected M. pneumoniae (PCR) Not Detected Parainfluenza 1 (PCR) Not Detected Parainfluenza 2 (PCR) Not Detected Parainfluenza 3 (PCR) Not Detected Parainfluenza 4 (PCR) Not Detected RSV (PCR) Not Detected Entero/Rhino (PCR) Not Detected SARS-CoV-2 RNA (RT-PCR) Not Detected 07/23/23 07/23/23 07/23/23 07:21 07:26 07:28 MCV 91.1 MCH 29.2 MCHC 32.1 RDW 13.6 Plt Count 70 L D MPV 12.0 Immature Gran % (Auto) 1.7 H Neut % (Auto) 93.2 H Lymph % (Auto) 1.3 L [place] % (Auto) 3.6 Eos % (Auto) 0.0 Baso % (Auto) 0.2 Lymph # (Auto) 0.1 L [place] # (Auto) 0.2 Eos # (Auto) 0.0 Baso # (Auto) 0.0 Abs Immat Gran (auto) 0.08 H Absolute Neuts (auto) 4.4 Absolute Nucleated RBC 0.000 Nucleated RBC % (auto) 0.0 Smear Tech's Comments VERIFIED PT 15.8 H INR 1.3 H O2 Saturation ABG pH at Pt Temp ABG pCO2 at Pt Temp ABG pO2 at Pt Temp ABG HCO3 ABG Base Excess (Actual) VBG pH 7.36 VBG pCO2 37 VBG pO2 36 VBG HCO3 21 L VBG O2 Saturation 52.0 VBG Base Excess -3.0 Anion Gap 12 Estim Creat Clear Calc 42.0 Estimated GFR 47 POC Glucose 376 H* Random Glucose 450 H* Estimat Average Glucose 131 Hemoglobin A1c % 6.2 H Calcium 9.0 D Phosphorus 2.7 Magnesium 2.3 Albumin 3.5 Respiratory Panel [place] Adenovirus (Rapid PCR) B.pert (TEM-PCR) B.parapertussis DNA PCR C. pneumoniae DNA (PCR) Coronavirus OC43 (PCR) Coronavirus HKU1 (PCR) Coronavirus 229E (PCR) Coronavirus NL63 (PCR) Human Metapneumovir PCR Influenza A (RT-PCR) Influenza B (RT-PCR) M. pneumoniae (PCR) Parainfluenza 1 (PCR) Parainfluenza 2 (PCR) Parainfluenza 3 (PCR) Parainfluenza 4 (PCR) RSV (PCR) Entero/Rhino (PCR) SARS-CoV-2 RNA (RT-PCR) 07/23/23 07/23/23 07/23/23 11:18 14:44 16:23 MCV MCH MCHC RDW Plt Count MPV Immature Gran % (Auto) Neut % (Auto) Lymph % (Auto) [place] % (Auto) Eos % (Auto) Baso % (Auto) Lymph # (Auto) [place] # (Auto) Eos # (Auto) Baso # (Auto) Abs Immat Gran (auto) Absolute Neuts (auto) Absolute Nucleated RBC Nucleated RBC % (auto) Smear Tech's Comments PT INR O2 Saturation ABG pH at Pt Temp ABG pCO2 at Pt Temp ABG pO2 at Pt Temp ABG HCO3 ABG Base Excess (Actual) VBG pH VBG pCO2 VBG pO2 VBG HCO3 VBG O2 Saturation VBG Base Excess Anion Gap Estim Creat Clear Calc Estimated GFR POC Glucose 417 H* 381 H* 377 H* Random Glucose Estimat Average Glucose Hemoglobin A1c % Calcium Phosphorus Magnesium Albumin Respiratory Panel [place] Adenovirus (Rapid PCR) B.pert (TEM-PCR) B.parapertussis DNA PCR C. pneumoniae DNA (PCR) Coronavirus OC43 (PCR) Coronavirus HKU1 (PCR) Coronavirus 229E (PCR) Coronavirus NL63 (PCR) Human Metapneumovir PCR Influenza A (RT-PCR) Influenza B (RT-PCR) M. pneumoniae (PCR) Parainfluenza 1 (PCR) Parainfluenza 2 (PCR) Parainfluenza 3 (PCR) Parainfluenza 4 (PCR) RSV (PCR) Entero/Rhino (PCR) SARS-CoV-2 RNA (RT-PCR) Microbiology Microbiology Results: Microbiology 07/21/23 13:32 Blood Culture - Preliminary Blood - Venous No growth after 48 hours. 07/21/23 13:32 Blood Culture - Preliminary Blood - Venous No growth after 48 hours. Assessment and Plan (1) Symptomatic anemia: Status: Resolved (2) Pancytopenia: Status: Acute (3) Acute on chronic blood loss anemia: Status: Resolved (4) Type 2 diabetes mellitus: Status: Acute (5) Asthma-COPD overlap syndrome: Status: Acute Plan 72yo F with HCV cirrhosis, HF unknown EF, HTN, hypothyroidism, COPD/asthma, GERD, anemia of chronic disease, pancytopenia, chronic constipation, DM2, and depression admitted to ICU for sepsis due to pneumonia. Did not require pressors so stepped down to M/S today. new onset afib: Terry Vasc is around 4 moniter on tele Heart rate is 100-110, patient is symptomatic Added TSH, echo Last echo was in 2009 EF was around 60%. Started low-dose Cardizem, Lovenox PNA - 07/21- ceftriaxone/azithro- >change to doxy 07/22- given prolonged QTc, follow BCx, trend PCT [9.44 today], check RPP QTc prolongation - repeat EKG improved to 447 ms. lactic acidosis thought to be - due to cirrhosis COPD/asthma with acute exac sob improving stop methylprednisolone due to hyperglycemia ,standing/prn nebs, Spiriva, Singulair hx hepatic encephalopathy - lactulose/rifaximin hypothyroidism - continue LT4 thrombocytopenia - due to sepsis + cirrhosis anemia - continue iron GERD - PPI HTN - spironolactone DM2 with hyperglycemia: fs is in 300-400 range -stop steriods adjusted basal/bolus insulin adjusted ,added insulin with meals depression - escitalopram, olanzapine VTE ppx - d/c heparin given thrombocytopenia; use SCDs dispo - TBD In my clinical judgment, the patient requires continued inpatient hospitalization for the following reasons pneumonia : IV ABX, diabetes uncontrolled with hyperglycemia need monitor for fingersticks and adjustments of insulin, new onset AFib need the further workup and cardiology evaluation. Quality Stroke Does the patient have a stroke diagnosis?: No VTE Prior VTE?: No VTE Risk Level:: Medical - moderate - high VTE Device Contraindication: N/A - Device Ordered VTE Drug Contraindication: N/A - Med Ordered
--- NOTE | 2023-07-23 17:19 | PC.NURSE ---
BS 377,Dr. Avila made aware
[2023-07-23] MEDS: dilTIAZem HCL 30 MG TABLET 15 MG PO ×2 (17:26→21:48)
[2023-07-23 17:27] LABS: Thyroid Stimulating Hormone 0.46 uIU/mL (0.32-4.0)
[2023-07-23] MEDS: Enoxaparin Sodium 80 MG/0.8 ML SYRINGE SUBCUT (17:27)
[2023-07-23 20:27] LABS: Glucose, Whole Blood 412 mg/dL (60-115)
[2023-07-23 21:40] LABS: Glucose, Whole Blood 388 mg/dL (60-115)
[2023-07-23] MEDS: Insulin Glargine,Hum.rec.anlog 100 UNIT/ML 10 ML VIAL 24 UNIT SUBCUT (21:47)
[2023-07-24] VITALS (8 sets, daily range): BP systolic 128–151; BP diastolic 59–69; PULSE 77–93; RESP 16–18; TEMP 36.2–36.8; O2SAT 95–99; BMI 36.0
--- NOTE | 2023-07-24 | ECG_ITS ---
Test Reason : afib Blood Pressure : / mmHG Vent. Rate : 087 BPM Atrial Rate : 087 BPM P-R Int : 136 ms QRS Dur : 086 ms QT Int : 390 ms P-R-T Axes : 068 051 045 degrees QTc Int : 469 ms Normal sinus rhythm Normal ECG When compared with ECG of 22-JUL-2023 16:47, No significant change was found Referred By: Italia Avila Electronically Signed By:eJsus Barnard
[2023-07-24 00:18] LABS: Glucose, Whole Blood 336 mg/dL (60-115)
[2023-07-24] MEDS: Acetaminophen 325 MG TABLET 650 MG PO ×2 (00:59→08:36)
[2023-07-24] MEDS: Insulin Lispro 100 UNIT/ML 3 ML VIAL SUBCUT ×5 (01:24→21:08)
[2023-07-24 02:20] LABS: Glucose, Whole Blood 267 mg/dL (60-115)
--- NOTE | 2023-07-24 02:50 | PC.NURSE ---
PATIENT ORDERS IN EFFECT ARE POC BLOOD SUGAR CHECKS Q 2 HOURS, VALUE AT 0000 WAS 336 AND HOSPITALIST ON DUTY ORDERED 5 UNITS OF LISPRO INSULIN WHICH WAS ADMINISTERED. BLOOD SUGAR AT 0200 WAS 267 AND RESULTS FORWARDED TO . NEW ORDERS TO RESUME POC'S IN AM FOR NOW, NOT Q 2 HOURS. WILL CONT TO MONITOR.
[2023-07-24] MEDS: Doxycycline Hyclate 100 MG in 0.9 % Sodium Chloride 250 ML 166.67 MG IV (05:03)
[2023-07-24] MEDS: Enoxaparin Sodium 80 MG/0.8 ML SYRINGE SUBCUT (05:06)
[2023-07-24] MEDS: Levothyroxine Sodium 25 MCG TABLET PO (06:12)
[2023-07-24] MEDS: Omeprazole 20 MG CAPSULE.DR PO ×2 (06:12→16:59)
--- NOTE | 2023-07-24 07:00 | CA_ITS ---
Transthoracic Echocardiogram Patient (Last, First, Middle): Lourdes Del Toro, Gender: Female Date of : 1950 Age: 72 Procedure Date: 07/24/2023 Procedure Type: Transthoracic Echocardiogram Location: S3E Height: 149.86 cm Weight: 80.74 kg BSA: 1.75 m2 Heart Rate: bpm BP: 145 / 68 mmHg Director Of Cardiology: Referring MD: Italia Avila MD Symptoms: new afib Study Quality: Excellent ECG Rhythm: Sinus Conclusions: - Normal left ventricular size and systolic function. There is moderately increased left ventricular wall thickness. The visually estimated ejection fraction is between 65-70%. - Normal right ventricular cavity size and systolic function. - The left atrium is severely dilated. - There is moderate mitral annular calcification. - There is moderate mitral valve regurgitation. - Moderately elevated right atrial pressure. Moderate pulmonary hypertension is present. Findings Left Ventricle Normal left ventricular size and systolic function. There is moderately increased left ventricular wall thickness. The visually estimated ejection fraction is between 65-70%. There is no evidence of regional wall motion abnormalities. Diastolic function is indeterminate on the basis of available data. Right Ventricle Normal right ventricular cavity size and systolic function. Atria The left atrium is severely dilated. Aortic Valve There is a normal trileaflet aortic valve. There is mild aortic valve stenosis. There is no aortic valve regurgitation. Mitral Valve There is moderate mitral annular calcification. There is moderate mitral valve regurgitation. There is no mitral valve stenosis. Pulmonic Valve Normal pulmonic valve structure and function. There is no pulmonic valve regurgitation. Tricuspid Valve Normal tricuspid valve structure. There is mild tricuspid valve regurgitation. The right ventricular systolic pressure is 49 mmHg. Moderately elevated right atrial pressure. Moderate pulmonary hypertension is present. Great Vessels All visible segments of the aorta are normal in size. The pulmonary artery was not well visualized. Venous The inferior vena cava is dilated and collapses greater than 50% with inspiration. Pericardium/Pleural There is no evidence of pericardial effusion. Prior Study Comparison No prior study available for comparison. Measurements 2D Linear Measurements IVSd: 1.28 0.6-0.9/0.6-1.0 cm LVIDd: 4.29 3.9-5.3/4.2-5.9 cm LVIDd Index: 2.45 2.4-3.2/2.2-3.1 cm/m2 LVIDs: 2.60 2.0-3.6 cm LVPWd: 1.27 0.7-1.1 cm Ao Root: 2.80 2.1-3.5 cm LA Diam: 4.50 2.7-3.8/3.0-4.0 cm LAIDs Index: 2.57 1.5-2.3 cm/m2 LV Mass: 250.70 67-162/88-224 g LV Mass Index: 143.26 43-95/49-115 g/m2 LVOT Diam: 1.90 3.0+(-)1.3 cm Mitral Valve MV Pk E: 1.50 MV PK A: 1.07 MV Decel Time: 263.00 E/A: 1.40 E'Lateral: 14.10 E'Medial: 10.00 E/E' Med: 15.00 E/E' Lat: 10.60 PHT: 77.00 MVA PHT: 2.86 Decel [place]: 5.71 Aortic Valve AoV Pk Demian: 2.05 AoV Mn Demian: 1.38 AoV VTI: 0.42 AoV Pk Grad: 17.00 Aov Mn Grad: 9.00 JOHN Cont.VTI: 2.27 LVOT LVOT Pk Demian: 1.39 LVOT Mn Demian: 0.94 LVOT VTI: 0.34 LVOT Pk Grad: 8.00 LVOT Mn Grad: 4.00 LVOT Diam: 1.90 LVOT Area: 2.84 Diastolic Function MV Pk E: 1.50 MV Pk A: 1.07 E/A: 1.40 E'Medial: 10.00 E/E' Med: 15.00 E' Laterial: 14.10 E/E' Lat: 10.60 Right Ventricle TAPSE (mm): 29.00 TVS' Demian: 15.00 Tricuspid Valve TR Pk Demian: 3.19 TR Pk Grad: 41.00 RA Press: 8.00 RVSP: 49.00 Great Vessels Aorta Ao Root-2D: 2.80 2.0-3.7 cm Pulmonary Valve PV Pk Demian: 1.57 Peak PV Grad: 10.00 Updated in Other Vendor System with Status of Final Jesus Barnard MD electronically signed on 07/24/2023 1:43:20 PM with status of Final
[2023-07-24 07:02] LABS: Anion Gap 10 (12-20); Blood Urea Nitrogen 27 mg/dL (9-16); Carbon Dioxide 23 mmol/L (22-29); Chloride 106 mmol/L (96-108); Creatinine Clr Calc Pharmacy 46.9; Estimated Glomerular Filt Rate 54; Glucose Random 245 mg/dL (60-115); Potassium 4.1 mmol/L (3.3-5.1); Sodium 135 mmol/L (135-145)
[2023-07-24 07:34] LABS: Glucose, Whole Blood 221 mg/dL (60-115)
[2023-07-24] MEDS: Albuterol/Iprat 2.5/0.5MG 3 ML AMPUL.NEB INHALE ×4 (08:17→20:00)
[2023-07-24] MEDS: Tiotropium Bromide 2.5 mcg 1 PUFF/2.5 MCG MIST.INHAL INHALE (08:17)
[2023-07-24] MEDS: Montelukast Sodium 10 MG TABLET PO (08:27)
[2023-07-24] MEDS: Lactulose 20 GM/30 ML SOLUTION PO (08:27)
[2023-07-24] MEDS: dilTIAZem HCL 30 MG TABLET 15 MG PO (08:27)
[2023-07-24] MEDS: Atorvastatin Calcium 20 MG TABLET PO (08:27)
[2023-07-24] MEDS: Calcium + Vitamin D 250 MG TABLET PO (08:28)
[2023-07-24] MEDS: rifAXIMin 550 MG TABLET PO ×2 (08:28→21:12)
[2023-07-24] MEDS: Doxycycline Monohydrate 100 MG CAPSULE PO ×2 (08:28→21:12)
[2023-07-24] MEDS: Gabapentin 100 MG CAPSULE 200 MG PO ×3 (08:28→21:11)
[2023-07-24] MEDS: Escitalopram Oxalate 20 MG TABLET PO (08:28)
[2023-07-24] MEDS: Ferrous Sulfate 324 MG TABLET.DR PO ×2 (08:28→21:12)
[2023-07-24] MEDS: OLANZapine 5 MG TABLET PO (08:28)
[2023-07-24] MEDS: Cyanocobalamin (Vitamin B-12) 1,000 MCG TABLET 1000 MCG PO (08:28)
[2023-07-24] MEDS: 0.9 % Sodium Chloride Flush 3 ML SYRINGE IVFLUSH ×3 (08:29→21:08)
[2023-07-24 11:21] LABS: Glucose, Whole Blood 230 mg/dL (60-115)
--- NOTE | 2023-07-24 11:47 | PM.CNCAR ---
History of Present Illness History of Present Illness Date of Service: 07/24/23 Requesting physician: Italia Avila Chief complaint: PAF Narrative: 72-year-old female with background history of hepatitis C cirrhosis of liver, congestive heart failure, hypertension, COPD, diabetes and pancytopenia. She was in the intensive care unit and was admitted on 07/21/2023 with dyspnea and lactic acidosis. She was diagnosed with pneumonia and treated with antibiotics and supportive care and has improved. She was downgraded to [facility]. We have been asked to assess her for atrial fibrillation. I have reviewed her EKGs and telemetry and there is no obvious evidence of atrial fibrillation episode. It is possible that something happened in the intensive care unit. Currently she is in sinus rhythm. She is denying any chest discomfort or shortness of breath. She is saying her breathing is improving. She still is coughing but not bringing up any phlegm. Blood pressure control is reasonable. 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) Asthma (08/30/21) Arthritis Anxiety and depression Anemia of chronic disease Congestive heart failure Depression Type 2 diabetes mellitus Chronic constipation GERD (gastroesophageal reflux disease) Asthma-COPD overlap syndrome Hypothyroidism History of hepatitis C Hepatic cirrhosis Hypertension Social History Social History Household Members: None Household Members Other:: two daughters, two grandchildren and son-in-law Housing: Other Housing Other:: Multifamily Do you presently have visiting nurse or other home services: No Patient Tobacco Use Status: Never used Tobacco Tobacco use type: Cigarette Smoked in Last 30 Days: No Second Hand Smoke Exposure: No Use of substances other than those prescribed or required for medical reasons: No Substance Use Type: Crack/Cocaine and Marijuana Currently Displaying Signs/Symptoms of Drug Intoxication Withdrawal: No Have you been hit, kicked, punched, or otherwise hurt by someone within the past year? If so, by whom?: No Do you feel safe in your current relationship?: No Current Relationship Is there a partner from a previous relationship who is making you feel unsafe now?: No Are you made to feel afraid or neglected: No Advance Directives: Yes Advance Directives Information Provided: No Advance Directives on File: No Advance Directives Date on File: 07/21/23 Do you have thoughts of harming others: None Do you have a plan to hurt others: No Plan Recently lost weight without trying: No How much weight loss: Not applicable Eating poorly because of decreased appetite: No Nutrition screen score: 0 Nutrition Risks: No Nutritional Risk Patient : No : No Poor oral hygiene: No service: No Sexual orientation: Straight/Heterosexual Meds Allergies Allergy/AdvReac Type Severity Reaction Status Date / Time aspirin Allergy Unknown Verified 07/21/23 12:59 bee pollen [bee stings] Allergy Unknown Verified 07/21/23 12:59 Penicillins Allergy Unknown Verified 07/21/23 12:59 Active Medications: Current Medications Acetaminophen (Acetaminophen 325 Mg Tablet) 650 mg PO Q6H PRN PRN Reason: Pain, Moderate(Pain Scale 4-6) Last Admin: 07/24/23 08:36 Dose: 650 mg Albuterol Sulfate (Albuterol Sulfate (0.083%) 2.5 Mg/3 Ml Vial.Neb) 2.5 mg INHALE Q2H PRN PRN Reason: Wheezing Albuterol/Ipratropium (Albuterol/Iprat 2.5/0.5mg 3 Ml Ampul.Neb) 3 ml INHALE RQ4H WHILE AWAKE [facility] Last Admin: 07/24/23 08:17 Dose: 3 ml Atorvastatin Calcium (Atorvastatin Calcium 20 Mg Tablet) 20 mg PO DAILY [facility] Last Admin: 07/24/23 08:27 Dose: 20 mg Calcium Carbonate/Cholecalciferol (Calcium + Vitamin D 250 Mg Tablet) 250 mg PO DAILY [facility] Last Admin: 07/24/23 08:28 Dose: 250 mg Cyanocobalamin (Cyanocobalamin (Vitamin B-12) 1,000 Mcg Tablet) 1,000 mcg PO DAILY [facility] Last Admin: 07/24/23 08:28 Dose: 1,000 mcg Dextrose (Dextrose 50 % 25 Gm/50 Ml Syringe) 25 gm IVPUSH Q30M PRN PRN Reason: BG < 70 Diltiazem HCl (Diltiazem Hcl 30 Mg Tablet) 15 mg PO QID [facility]; Protocol Last Admin: 07/24/23 08:27 Dose: 15 mg Doxycycline Monohydrate (Doxycycline Monohydrate 100 Mg Capsule) 100 mg PO Q12H [facility] Last Admin: 07/24/23 08:28 Dose: 100 mg Enoxaparin Sodium (Enoxaparin Sodium 80 Mg/0.8 Ml Syringe) 80 mg SUBCUT Q12H [facility] Last Admin: 07/24/23 05:06 Dose: 80 mg Escitalopram Oxalate (Escitalopram Oxalate 20 Mg Tablet) 20 mg PO DAILY [facility] Last Admin: 07/24/23 08:28 Dose: 20 mg Ferrous Sulfate (Ferrous Sulfate 324 Mg Tablet.) 324 mg PO BID [facility] Last Admin: 07/24/23 08:28 Dose: 324 mg Gabapentin (Gabapentin 100 Mg Capsule) 200 mg PO TID [facility] Last Admin: 07/24/23 08:28 Dose: 200 mg Hydroxyzine HCl (Hydroxyzine Hcl 25 Mg Tablet) 25 mg PO Q6H PRN PRN Reason: Anxiety Ceftriaxone Sodium 1 gm/ (Sodium Chloride) 50 mls @ 100 mls/hr IV Q24H [facility] Last Infusion: 07/23/23 14:36 Dose: Infused Insulin Glargine (Insulin Glargine,Hum.Rec.Anlog 100 Unit/Ml 10 Ml Vial) 35 unit SUBCUT BEDTIME [facility] Insulin Human Lispro (Insulin Lispro 100 Unit/Ml 3 Ml Vial) 0 unit SUBCUT QIDACHS [facility]; Protocol Last Admin: 07/24/23 08:25 Dose: 8 unit Lactulose (Lactulose 20 Gm/30 Ml Solution) 20 gm PO TID [facility] Last Admin: 07/24/23 08:27 Dose: 20 gm Levothyroxine Sodium (Levothyroxine Sodium 25 Mcg Tablet) 25 mcg PO DAILY@0600 [facility] Last Admin: 07/24/23 06:12 Dose: 25 mcg Montelukast Sodium (Montelukast Sodium 10 Mg Tablet) 10 mg PO DAILY [facility] Last Admin: 07/24/23 08:27 Dose: 10 mg Non-Formulary Medication (Trospium) 60 mg PO 1XD [facility] Olanzapine (Olanzapine 5 Mg Tablet) 5 mg PO DAILY [facility] Last Admin: 07/24/23 08:28 Dose: 5 mg Omeprazole (Omeprazole 20 Mg Capsule.) 20 mg PO BID@0630,1630 [facility] Last Admin: 07/24/23 06:12 Dose: 20 mg Rifaximin (Rifaximin 550 Mg Tablet) 550 mg PO BID [facility] Last Admin: 07/24/23 08:28 Dose: 550 mg Sodium Chloride (0.9 % Sodium Chloride Flush 3 Ml Syringe) 3 ml IVFLUSH QSHIFT [facility] Last Admin: 07/24/23 08:29 Dose: 3 ml Spironolactone (Spironolactone 25 Mg Tablet) 50 mg PO DAILY [facility]; Protocol Last Admin: 07/23/23 07:57 Dose: 50 mg Tiotropium [place] (Tiotropium [place] 2.5 Mcg 1 Puff/2.5 Mcg Mist.Inhal) 1 puff INHALE RDAILY [facility] Last Admin: 07/24/23 08:17 Dose: 1 puff Home Medications Medication Instructions Recorded Confirmed Last Taken Type calcium citrate 315 mg 1 tab PO DAILY 07/21/23 07/21/23 Unknown History calcium-vitamin D3 6.25 mcg (250 unit) tablet cyanocobalamin (vitamin B-12) 1,000 mcg PO DAILY 07/21/23 07/21/23 Unknown History 1,000 mcg tablet docusate sodium 100 mg capsule 100 mg PO BID PRN Constipation 07/21/23 07/21/23 Unknown History ferrous sulfate 325 mg (65 mg 325 mg PO BID 07/21/23 07/21/23 Unknown History iron) tablet insulin glargine 100 unit/mL (3 36 unit subcut BEDTIME 07/21/23 07/21/23 Unknown History mL) subcutaneous pen (Lantus Solostar U-100 Insulin) montelukast 10 mg tablet 10 mg PO DAILY 07/21/23 07/21/23 Unknown History polyethylene glycol 3350 17 gram 17 g PO BID PRN Constipation 07/21/23 07/21/23 Unknown History oral powder packet potassium chloride 10 mEq 10 meq PO DAILY 07/21/23 07/21/23 Unknown History capsule,extended release rifaximin 550 mg tablet (Xifaxan) 550 mg PO BID 07/21/23 07/21/23 Unknown History sennosides 8.6 mg tablet (Senna 8.6 mg PO BEDTIME PRN Constipation 07/21/23 07/21/23 Unknown History Lax) Physical Exam Vital Signs: Vital Signs: Last Vital Signs Temp 97.1 F 07/24/23 07:16 Pulse 84 07/24/23 08:19 Resp 16 07/24/23 08:19 BP 145/68 H 12/13/23 07:16 Pulse Ox 97 07/24/23 07:16 O2 Del Method Room Air 07/24/23 07:16 O2 Flow Rate 1 07/23/23 04:00 BMI result Body Mass Index 36.0 GENERAL APPEARANCE: in no acute distress, pleasant. NECK: no carotid bruit, mild jugular venous distention. SKIN: no suspicious lesions, warm and dry. HEART: no murmurs, regular rate and rhythm. LUNGS: clear to auscultation bilaterally. ABDOMEN: soft, nontender. EXTREMITIES: no edema. PERIPHERAL PULSES: equal. NEUROLOGIC: No gross deficits, AAO X 3. Objective Labs and Meds 07/23/23 07:21 07/24/23 06:24 Lab results: Laboratory Results - last 24 hr 07/23/23 07/23/23 07/23/23 07:21 14:44 16:23 Hold Purple Top Sodium Potassium Chloride Carbon Dioxide Anion Gap BUN Creatinine Estim Creat Clear Calc Estimated GFR POC Glucose 381 H* 377 H* Random Glucose Calcium TSH 0.46 07/23/23 07/23/23 07/24/23 20:23 21:37 00:12 Hold Purple Top Sodium Potassium Chloride Carbon Dioxide Anion Gap BUN Creatinine Estim Creat Clear Calc Estimated GFR POC Glucose 412 H* 388 H* 336 H Random Glucose Calcium TSH 07/24/23 07/24/23 07/24/23 02:16 06:24 07:22 Hold Purple Top SEE NOTE Sodium 135 Potassium 4.1 Chloride 106 Carbon Dioxide 23 Anion Gap 10 L BUN 27 H Creatinine 1.01 Estim Creat Clear Calc 46.9 Estimated GFR 54 POC Glucose 267 H 221 H Random Glucose 245 H Calcium 9.0 TSH 07/24/23 11:11 Hold Purple Top Sodium Potassium Chloride Carbon Dioxide Anion Gap BUN Creatinine Estim Creat Clear Calc Estimated GFR POC Glucose 230 H Random Glucose Calcium TSH Assessment and Plan (1) Pneumonia: Qualifiers: Laterality: right Lung location: lower lobe of lung Pneumonia type: due to unspecified organism Qualified Code(s): J18.9 - Pneumonia, unspecified organism Status: Acute (2) Sepsis: Qualifiers: Sepsis type: sepsis due to unspecified organism Sepsis acute organ dysfunction status: unspecified Qualified Code(s): A41.9 - Sepsis, unspecified organism Status: Acute (3) PAC (premature atrial contraction): Status: Acute Plan 72-year-old female who presented with lactic acidosis and pneumonia and was in the intensive care unit. She has since then has improved and has been downgraded. She had significant premature atrial complexes on telemetry and concern was raised about atrial fibrillation. Reviewing the telemetry as well as a EKGs, she does not have atrial fibrillation and mostly had premature atrial complexes. These are quite common in the acute setting which she was in. Monitor electrolytes closely and keep potassium more than 4 and magnesium more than 2. If there is any concern for atrial fibrillation again please contact us. Signing off for now. Thank you for allowing me to participate in the care of your patient. Please feel free to contact me if you have any questions. Procedures Date of Service Date of Service: 07/24/23
--- NOTE | 2023-07-24 12:45 | P.CDIM_ITS ---
PROVIDER RESPONSE TEXT: To clarify, the appropriate diagnosis supported by the clinical indicators: Acute QUERY TEXT: PHYSICIAN'S DOCUMENTATION REQUEST Date of Query: 07/24/2023 08:33 AM EST Patient Name: Lourdes eDl Toro Admit Date: 07/21/2023 Dear Italia Avila, A review of the medical record indicates additional documentation may be needed. Please review below and update the documentation accordingly. Clinical Indicators: PN: Assessment and plan - lactic acidosis thought to be due to cirrhosis. LA 6.0 h Clarify which of the following accurately represents the acuity of the lactic acidosis: Acute Acute on chronic Other (explain) Clinically unable to determine (explain) Thank you, Brittani Mendoza, CCS, CDIS Use of terms such as suspected, likely, concern for, or probable (associated with a specific diagnosi s that is being evaluated, monitored, or treated as if it exists) are acceptable and can be coded in the inpatient se tting, when documented at the time of discharge. Please use your independent medical judgment in providing your response. THIS QUERY IS PART OF THE PERMANENT MEDICAL RECORD
[2023-07-24] MEDS: cefTRIAXone sodium 1 GM in 0.9 % Sodium Chloride 50 ML IV (14:02)
--- NOTE | 2023-07-24 14:38 | MHC.CM.PN ---
Per MD rounds patient is not medically cleared. DP return to [facility]. Family will transport at discharge.
--- NOTE | 2023-07-24 15:41 | HO.PM.IMPN ---
Subjective Subjective Date of Service: 07/24/23 Interval History: dm with hyperglycemia ,pneumonia Review of Systems hyperglycemia improving still feels sob with minimal excersion has cough no fevers Physical Exam Vital Signs: Vital Signs: Last Vital Signs Temp 97.8 F 07/24/23 15:21 Pulse 88 07/24/23 15:21 Resp 18 07/24/23 15:21 BP 151/67 H 07/24/23 15:21 Pulse Ox 99 07/24/23 15:21 O2 Del Method Room Air 07/24/23 15:21 O2 Flow Rate 1 07/23/23 04:00 BMI result Body Mass Index 36.0 Appearance: Alert.? Oriented X3.?sob improivng cvs: rrr, [id number] , no murmur res: air entry improving ,mild wheezin abd: no rebound or guarding ,nt, bs present. ext pulses present , no cyanosis . neuro: axo3 , nonfocal. Objective Data Active Medications Acetaminophen (Acetaminophen 325 Mg Tablet) 650 mg PO Q6H PRN PRN Reason: Pain, Moderate(Pain Scale 4-6) Last Admin: 07/24/23 08:36 Dose: 650 mg Documented By: KATELIN Albuterol Sulfate (Albuterol Sulfate (0.083%) 2.5 Mg/3 Ml Vial.Neb) 2.5 mg INHALE Q2H PRN PRN Reason: Wheezing Albuterol/Ipratropium (Albuterol/Iprat 2.5/0.5mg 3 Ml Ampul.Neb) 3 ml INHALE RQ4H WHILE AWAKE [facility] Last Admin: 07/24/23 15:06 Dose: 3 ml Documented By: ROBIN Atorvastatin Calcium (Atorvastatin Calcium 20 Mg Tablet) 20 mg PO DAILY [facility] Last Admin: 07/24/23 08:27 Dose: 20 mg Documented By: KATELIN Calcium Carbonate/Cholecalciferol (Calcium + Vitamin D 250 Mg Tablet) 250 mg PO DAILY [facility] Last Admin: 07/24/23 08:28 Dose: 250 mg Documented By: KATELIN Cyanocobalamin (Cyanocobalamin (Vitamin B-12) 1,000 Mcg Tablet) 1,000 mcg PO DAILY [facility] Last Admin: 07/24/23 08:28 Dose: 1,000 mcg Documented By: KATELIN Dextrose (Dextrose 50 % 25 Gm/50 Ml Syringe) 25 gm IVPUSH Q30M PRN PRN Reason: BG < 70 Doxycycline Monohydrate (Doxycycline Monohydrate 100 Mg Capsule) 100 mg PO Q12H [facility] Last Admin: 07/24/23 08:28 Dose: 100 mg Documented By: KATELIN Escitalopram Oxalate (Escitalopram Oxalate 20 Mg Tablet) 20 mg PO DAILY [facility] Last Admin: 07/24/23 08:28 Dose: 20 mg Documented By: KATELIN Ferrous Sulfate (Ferrous Sulfate 324 Mg Tablet.Dr) 324 mg PO BID [facility] Last Admin: 07/24/23 08:28 Dose: 324 mg Documented By: KATELIN Gabapentin (Gabapentin 100 Mg Capsule) 200 mg PO TID [facility] Last Admin: 07/24/23 14:03 Dose: 200 mg Documented By: KATELIN Hydroxyzine HCl (Hydroxyzine Hcl 25 Mg Tablet) 25 mg PO Q6H PRN PRN Reason: Anxiety Ceftriaxone Sodium 1 gm/ (Sodium Chloride) 50 mls @ 100 mls/hr IV Q24H [facility] Last Infusion: 07/24/23 15:03 Dose: Infused Documented By: KATELIN Insulin Glargine (Insulin Glargine,Hum.Rec.Anlog 100 Unit/Ml 10 Ml Vial) 35 unit SUBCUT BEDTIME [facility] Insulin Human Lispro (Insulin Lispro 100 Unit/Ml 3 Ml Vial) 0 unit SUBCUT QIDACHS [facility]; Protocol Last Admin: 07/24/23 12:04 Dose: 8 unit Documented By: KATELIN Lactulose (Lactulose 20 Gm/30 Ml Solution) 20 gm PO TID [facility] Last Admin: 07/24/23 14:16 Dose: Not Given Documented By: KATELIN Non-Admin Reason: Patient Refused Levothyroxine Sodium (Levothyroxine Sodium 25 Mcg Tablet) 25 mcg PO DAILY@0600 [facility] Last Admin: 07/24/23 06:12 Dose: 25 mcg Documented By: MAGALIE Montelukast Sodium (Montelukast Sodium 10 Mg Tablet) 10 mg PO DAILY [facility] Last Admin: 07/24/23 08:27 Dose: 10 mg Documented By: KATELIN Non-Formulary Medication (Trospium) 60 mg PO 1XD [facility] Olanzapine (Olanzapine 5 Mg Tablet) 5 mg PO DAILY [facility] Last Admin: 12/13/23 08:28 Dose: 5 mg Documented By: KATELIN Omeprazole (Omeprazole 20 Mg Capsule.) 20 mg PO BID@0630,1630 [facility] Last Admin: 07/24/23 06:12 Dose: 20 mg Documented By: MAGALIE Rifaximin (Rifaximin 550 Mg Tablet) 550 mg PO BID [facility] Last Admin: 07/24/23 08:28 Dose: 550 mg Documented By: KATELIN Sodium Chloride (0.9 % Sodium Chloride Flush 3 Ml Syringe) 3 ml IVFLUSH QSHIFT [facility] Last Admin: 07/24/23 08:29 Dose: 3 ml Documented By: KATELIN Spironolactone (Spironolactone 25 Mg Tablet) 50 mg PO DAILY [facility]; Protocol Last Admin: 07/23/23 07:57 Dose: 50 mg Documented By: KATELIN Tiotropium [place] (Tiotropium [place] 2.5 Mcg 1 Puff/2.5 Mcg Mist.Inhal) 1 puff INHALE RDAILY [facility] Last Admin: 07/24/23 08:17 Dose: 1 puff Documented By: MANUEL Labs 07/23/23 07:21 07/24/23 06:24 Labs: Laboratory Results - last 24 hr 07/23/23 07/23/23 07/23/23 07:21 16:23 20:23 Hold Purple Top Anion Gap Estim Creat Clear Calc Estimated GFR POC Glucose 377 H* 412 H* Random Glucose Calcium TSH 0.46 07/23/23 07/24/23 07/24/23 21:37 00:12 02:16 Hold Purple Top Anion Gap Estim Creat Clear Calc Estimated GFR POC Glucose 388 H* 336 H 267 H Random Glucose Calcium TSH 07/24/23 07/24/23 07/24/23 06:24 07:22 11:11 Hold Purple Top SEE NOTE Anion Gap 10 L Estim Creat Clear Calc 46.9 Estimated GFR 54 POC Glucose 221 H 230 H Random Glucose 245 H Calcium 9.0 TSH Microbiology Microbiology Results: Microbiology 07/21/23 13:32 Blood Culture - Preliminary Blood - Venous No growth after 48 hours. 07/21/23 13:32 Blood Culture - Preliminary Blood - Venous No growth after 48 hours. Assessment and Plan (1) Symptomatic anemia: Status: Resolved (2) Pancytopenia: Status: Acute (3) Acute on chronic blood loss anemia: Status: Resolved (4) Type 2 diabetes mellitus: Status: Acute (5) Asthma-COPD overlap syndrome: Status: Acute Plan 72yo F with HCV cirrhosis, HF unknown EF, HTN, hypothyroidism, COPD/asthma, GERD, anemia of chronic disease, pancytopenia, chronic constipation, DM2, and depression admitted to ICU for sepsis due to pneumonia. Did not require pressors so stepped down to M/S today. PNA - 07/21- ceftriaxone/azithro- >change to doxy 07/22- given prolonged QTc, follow BCx, trend PCT [9.44 today], check RPP QTc prolongation - repeat EKG improved to 447 ms. tele and ekg reviewed with cardio:patient has She had significant premature atrial complexes on telemetry and concern was raised about atrial fibrillation. telemetry as well as a EKGs, she does not have atrial fibrillation and mostly had premature atrial complexes. stop cardizem/lovenox echo done: ef 65-70% acute lactic acidosis thought to be - due to cirrhosis COPD/asthma with acute exac sob improving stop methylprednisolone due to hyperglycemia ,standing/prn nebs, Spiriva, Singulair hx hepatic encephalopathy - lactulose/rifaximin hypothyroidism - continue LT4 thrombocytopenia - due to sepsis + cirrhosis anemia - continue iron GERD - PPI HTN - spironolactone DM2 with hyperglycemia: fs is in 300's range -stop steriods adjusted basal/bolus insulin adjusted. depression - escitalopram, olanzapine VTE ppx - d/c heparin given thrombocytopenia; use SCDs dispo - TBD In my clinical judgment, the patient requires continued inpatient hospitalization for the following reasons pneumonia : IV ABX, diabetes uncontrolled with hyperglycemia need monitor for fingersticks and adjustments of insulin. Quality Stroke Does the patient have a stroke diagnosis?: No VTE Prior VTE?: No VTE Risk Level:: Medical - moderate - high VTE Device Contraindication: N/A - Device Ordered VTE Drug Contraindication: N/A - Med Ordered
[2023-07-24 16:18] LABS: Glucose, Whole Blood 217 mg/dL (60-115)
--- NOTE | 2023-07-24 16:55 | P.CDIM_ITS ---
PROVIDER RESPONSE TEXT: To clarify, the appropriate diagnosis supported by the clinical indicators: Obesity Due to excess calories QUERY TEXT: PHYSICIAN'S DOCUMENTATION REQUEST Date of Query: 07/24/2023 08:36 AM EST Patient Name: Lourdes Del Toro Admit Date: 07/21/2023 Dear Italia Avila, A review of the medical record indicates additional documentation may be needed. Please review below and update the documentation accordingly. Clinical Indicators: BMI 36.1 4ft 11in 80.8kg Class II obese If possible, please provide an associated diagnosis related to the abnormal BMI, such as: Overweight Obesity Due to excess calories Obesity Due to other cause Specify the other cause Severe or Morbid Obesity With alveolar hypoventilation Severe or Morbid Obesity Without alveolar hypoventilation Other (explain) Clinically unable to determine (explain) Thank you, Brittani Mendoza, CCS, CDIS Use of terms such as suspected, likely, concern for, or probable (associated with a specific diagnosi s that is being evaluated, monitored, or treated as if it exists) are acceptable and can be coded in the inpatient se tting, when documented at the time of discharge. Please use your independent medical judgment in providing your response. THIS QUERY IS PART OF THE PERMANENT MEDICAL RECORD
[2023-07-24 20:35] LABS: Glucose, Whole Blood 184 mg/dL (60-115)
[2023-07-24] MEDS: Insulin Glargine,Hum.rec.anlog 100 UNIT/ML 10 ML VIAL 35 UNIT SUBCUT (21:08)
[2023-07-25] VITALS (13 sets, daily range): BP systolic 127–167; BP diastolic 64–77; PULSE 70–123; RESP 18–24; TEMP 36.4–37.2; O2SAT 92–99
--- NOTE | 2023-07-25 | ECG_ITS ---
Test Reason : TACHY Blood Pressure : / mmHG Vent. Rate : 126 BPM Atrial Rate : 000 BPM P-R Int : 000 ms QRS Dur : 074 ms QT Int : 324 ms P-R-T Axes : 000 047 -01 degrees QTc Int : 469 ms Atrial fibrillation with rapid ventricular response Nonspecific ST abnormality Abnormal ECG When compared with ECG of 24-JUL-2023 08:43, Atrial fibrillation has replaced Sinus rhythm Referred By: Italia Avila Electronically Signed By:Jesus Barnard
[2023-07-25] MEDS: Albuterol Sulfate (0.083%) 2.5 MG/3 ML VIAL.NEB INHALE (03:14)
[2023-07-25] MEDS: guaiFENesin DM 200/20/10 ML 10 ML SYRUP PO (03:49)
--- NOTE | 2023-07-25 05:05 | PC.NURSE ---
Approximately around 03:00, while using the bedside commode, pt complained of chest discomfort and SOB. Upon assessment, pt's vitals were stable, O2 at 93% RA, lungs sounds with increased wheezing and crackles, and coughing. This RN notified MD Omalley of the situation. 2L of O2 was ordered and placed on pt increasing O2 to 98% 2L via NC. RT was called and PRN of breathing treatment was given per MAR with effect. MD Omalley ordered PRN Robitussin with effect per pt. Will continue to monitor pt's respiratory status.
[2023-07-25] MEDS: Acetaminophen 325 MG TABLET 650 MG PO ×2 (05:49→22:31)
[2023-07-25] MEDS: Levothyroxine Sodium 25 MCG TABLET PO (05:50)
[2023-07-25] MEDS: Omeprazole 20 MG CAPSULE.DR PO ×2 (05:50→17:11)
[2023-07-25 07:44] LABS: Glucose, Whole Blood 144 mg/dL (60-115)
[2023-07-25] MEDS: Doxycycline Monohydrate 100 MG CAPSULE PO ×2 (07:58→20:56)
[2023-07-25] MEDS: Tiotropium Bromide 2.5 mcg 1 PUFF/2.5 MCG MIST.INHAL INHALE (08:13)
[2023-07-25] MEDS: Albuterol/Iprat 2.5/0.5MG 3 ML AMPUL.NEB INHALE ×5 (08:13→19:59)
[2023-07-25] MEDS: Magnesium Sulfate/D5W 1 GM/100 ML PIGGYBACK IV (09:14)
[2023-07-25] MEDS: Lactulose 20 GM/30 ML SOLUTION PO (09:14)
[2023-07-25] MEDS: methylPREDNISolone Sod Succ 40 MG/ML VIAL IVPUSH (09:14)
[2023-07-25] MEDS: Insulin Lispro 100 UNIT/ML 3 ML VIAL SUBCUT ×4 (09:15→20:54)
[2023-07-25] MEDS: Furosemide 20 MG/2 ML VIAL IVPUSH ×2 (09:15→17:11)
[2023-07-25] MEDS: OLANZapine 5 MG TABLET PO (09:16)
[2023-07-25] MEDS: Calcium + Vitamin D 250 MG TABLET PO (09:16)
[2023-07-25] MEDS: Spironolactone 25 MG TABLET 50 MG PO (09:16)
[2023-07-25] MEDS: Cyanocobalamin (Vitamin B-12) 1,000 MCG TABLET 1000 MCG PO (09:16)
[2023-07-25] MEDS: Atorvastatin Calcium 20 MG TABLET PO (09:16)
[2023-07-25] MEDS: rifAXIMin 550 MG TABLET PO ×2 (09:16→20:56)
[2023-07-25] MEDS: Montelukast Sodium 10 MG TABLET PO (09:16)
[2023-07-25] MEDS: Gabapentin 100 MG CAPSULE 200 MG PO ×3 (09:16→20:56)
[2023-07-25] MEDS: Escitalopram Oxalate 20 MG TABLET PO (09:16)
[2023-07-25] MEDS: Ferrous Sulfate 324 MG TABLET.DR PO ×2 (09:16→20:56)
[2023-07-25 09:22] LABS: Venous Blood Gas Refer to POC result
[2023-07-25 09:22] LABS: VBG Base Excess -2.3 mmol/L; VBG HCO3 21 mmol/L (22-26); VBG pCO2 33 mmHg; VBG pH 7.41 (7.32-7.43); VBG pO2 85 mmHg
--- NOTE | 2023-07-25 11:07 | MHC.CM.PN ---
PER MD ROUNDS, PT IS NOT EXPECTED TO BE READY TO DC TODAY DCP: RETURN TO [facility] WITH NEW [employer] DAUGHTER TO TRANSPORT
[2023-07-25 11:29] LABS: Glucose, Whole Blood 188 mg/dL (60-115)
[2023-07-25] MEDS: dilTIAZem HCL 30 MG TABLET 15 MG PO (12:55)
[2023-07-25] MEDS: cefTRIAXone sodium 1 GM in 0.9 % Sodium Chloride 50 ML IV (12:57)
[2023-07-25] MEDS: Metoprolol Tartrate 5 MG/5 ML VIAL 2.5 MG IVPUSH (13:45)
--- NOTE | 2023-07-25 14:11 | PC.NURSE ---
Pt brought to floor from 3S, vitals taken. pt not in any acute distress, will ctm
[2023-07-25 14:24] LABS: Hematocrit 32.8 % (37.0-47.0); Hemoglobin 10.7 g/dl (12.0-16.0)
[2023-07-25 14:32] LABS: Platelet Count 86 X10*3/uL (160-400)
--- NOTE | 2023-07-25 14:37 | P.CDIM_ITS ---
PROVIDER RESPONSE TEXT: To clarify, the appropriate diagnosis supported by the clinical indicators: Unable to determine QUERY TEXT: PHYSICIAN'S DOCUMENTATION REQUEST Date of Query: 07/25/2023 10:18 AM EST Patient Name: Lourdes Del Toro Admit Date: 07/21/2023 Dear Italia Avila, A review of the medical record indicates additional documentation may be needed. Please review below and update the documentation accordingly. Clinical Indicators: PN: Congestive heart failure Home medication: Furosemide 40 mg PO daily Lasix given Echo performed feels sob with minimal exertion/no pedal edema Cardiology - reviewing the telemetry as well as EKG's, she does not have atrial fibrillation and most ly had premature atrial complexes. Please provide further specificity regarding the most likely type and acuity of CHF you are evaluatin g, treating, or monitoring. Systolic Please specify if Acute, Chronic, or Acute on chronic, or Unable to determine Diastolic Please specify if Acute, Chronic, or Acute on chronic, or Unable to determine Combined Systolic/Diastolic Please specify if Acute, Chronic, or Acute on chronic, or Unable to determine Unable to determine Other (explain) Clinically unable to determine (explain) Thank you, Brittani Mendoza, CCS, CDIS Use of terms such as suspected, likely, concern for, or probable (associated with a specific diagnosi s that is being evaluated, monitored, or treated as if it exists) are acceptable and can be coded in the inpatient se tting, when documented at the time of discharge. Please use your independent medical judgment in providing your response. THIS QUERY IS PART OF THE PERMANENT MEDICAL RECORD
[2023-07-25 14:49] LABS: Adenovirus PCR Not Detected (Not Detect.); Bordetella parapertussis PCR Not Detected (Not Detect.); Bordetella pertussis PCR Not Detected (Not Detect.); Chlamydia pneumoniae PCR Not Detected (Not Detect.); Coronavirus 229E PCR Not Detected (Not Detect.); Coronavirus HKU1 PCR Not Detected (Not Detect.); Coronavirus NL63 PCR Not Detected (Not Detect.); Coronavirus OC43 PCR Not Detected (Not Detect.); Human metapneumovirus PCR Not Detected (Not Detect.); Influenza A PCR Not Detected (Not Detect.); Influenza B PCR Not Detected (Not Detect.); Mycoplasma pneumoniae PCR Not Detected (Not Detect.); Parainfluenza 1 PCR Not Detected (Not Detect.); Parainfluenza 2 PCR Not Detected (Not Detect.); Parainfluenza 3 PCR Not Detected (Not Detect.); Parainfluenza 4 PCR Not Detected (Not Detect.); RSV PCR Not Detected (Not Detect.); Rhino/Enterovirus PCR Not Detected (Not Detect.); SARS-CoV-2 PCR Not Detected (Not Detect.)
[2023-07-25 14:51] LABS: Estimated Average Glucose 134 mg/dL; Hemoglobin A1c % 6.3 % (<6.0)
[2023-07-25] MEDS: Metoprolol Tartrate 25 MG TABLET PO ×2 (15:38→20:56)
[2023-07-25] MEDS: 0.9 % Sodium Chloride Flush 3 ML SYRINGE IVFLUSH ×2 (15:41→20:56)
[2023-07-25 15:57] LABS: Glucose, Whole Blood 300 mg/dL (60-115)
--- NOTE | 2023-07-25 16:32 | HO.PM.IMPN ---
Subjective Subjective Date of Service: 07/25/23 Interval History: Possible CHF exacerbation Review of Systems Patient still feels short of breath, tachycardic, has AFib on EKG Has some cough but not productive no fever Physical Exam Vital Signs: Vital Signs: Last Vital Signs Temp 98.9 F 07/25/23 14:08 Pulse 92 07/25/23 15:50 Resp 18 07/25/23 15:50 BP 142/65 H 07/25/23 14:08 Pulse Ox 97 07/25/23 14:08 O2 Del Method Nasal Cannula 07/25/23 14:08 O2 Flow Rate 2 07/25/23 14:08 BMI result Body Mass Index 36.0 Appearance: Alert.? Oriented X3.? cvs: rrr, [id number] , no murmur res: clear to auscultation ,no rhonchii or wheezing abd: no rebound or guarding ,nt, bs present. ext pulses present , no cyanosisd. neuro: axo3 , nonfocal. Objective Data Active Medications Acetaminophen (Acetaminophen 325 Mg Tablet) 650 mg PO Q6H PRN PRN Reason: Pain, Moderate(Pain Scale 4-6) Last Admin: 07/25/23 05:49 Dose: 650 mg Documented By: HERNAN Albuterol Sulfate (Albuterol Sulfate (0.083%) 2.5 Mg/3 Ml Vial.Neb) 2.5 mg INHALE Q2H PRN PRN Reason: Wheezing Last Admin: 07/25/23 03:14 Dose: 2.5 mg Documented By: CECILIA Albuterol/Ipratropium (Albuterol/Iprat 2.5/0.5mg 3 Ml Ampul.Neb) 3 ml INHALE RQ4H WHILE AWAKE [facility] Last Admin: 07/25/23 15:44 Dose: 3 ml Documented By: SANDRA Atorvastatin Calcium (Atorvastatin Calcium 20 Mg Tablet) 20 mg PO DAILY [facility] Last Admin: 07/25/23 09:16 Dose: 20 mg Documented By: RAMYA Calcium Carbonate/Cholecalciferol (Calcium + Vitamin D 250 Mg Tablet) 250 mg PO DAILY [facility] Last Admin: 07/25/23 09:16 Dose: 250 mg Documented By: RAMYA Cyanocobalamin (Cyanocobalamin (Vitamin B-12) 1,000 Mcg Tablet) 1,000 mcg PO DAILY [facility] Last Admin: 07/25/23 09:16 Dose: 1,000 mcg Documented By: RAMYA Dextrose (Dextrose 50 % 25 Gm/50 Ml Syringe) 25 gm IVPUSH Q30M PRN PRN Reason: BG < 70 Doxycycline Monohydrate (Doxycycline Monohydrate 100 Mg Capsule) 100 mg PO Q12H [facility] Last Admin: 07/25/23 07:58 Dose: 100 mg Documented By: RAMYA Escitalopram Oxalate (Escitalopram Oxalate 20 Mg Tablet) 20 mg PO DAILY [facility] Last Admin: 07/25/23 09:16 Dose: 20 mg Documented By: RAMYA Ferrous Sulfate (Ferrous Sulfate 324 Mg Tablet.) 324 mg PO BID [facility] Last Admin: 07/25/23 09:16 Dose: 324 mg Documented By: RAMYA Furosemide (Furosemide 20 Mg/2 Ml Vial) 20 mg IVPUSH DAILY [facility]; Protocol Gabapentin (Gabapentin 100 Mg Capsule) 200 mg PO TID [facility] Last Admin: 07/25/23 15:38 Dose: 200 mg Documented By: BAKARI Guaifenesin/Dextromethorphan (Guaifenesin Dm 200/20/10 Ml 10 Ml Syrup) 10 ml PO Q6H PRN PRN Reason: cough Last Admin: 07/25/23 03:49 Dose: 10 ml Documented By: HERNAN Hydroxyzine HCl (Hydroxyzine Hcl 25 Mg Tablet) 25 mg PO Q6H PRN PRN Reason: Anxiety Ceftriaxone Sodium 1 gm/ (Sodium Chloride) 50 mls @ 100 mls/hr IV Q24H [facility] Last Infusion: 07/25/23 13:56 Dose: Infused Documented By: RAMYA Insulin Glargine (Insulin Glargine,Hum.Rec.Anlog 100 Unit/Ml 10 Ml Vial) 35 unit SUBCUT BEDTIME [facility] Last Admin: 07/24/23 21:08 Dose: 35 unit Documented By: HERNAN Insulin Human Lispro (Insulin Lispro 100 Unit/Ml 3 Ml Vial) 0 unit SUBCUT QIDACHS [facility]; Protocol Last Admin: 07/25/23 12:56 Dose: 4 unit Documented By: RAMYA Lactulose (Lactulose 20 Gm/30 Ml Solution) 20 gm PO TID [facility] Last Admin: 07/25/23 15:26 Dose: Not Given Documented By: BAKARI Non-Admin Reason: held for loose stools Levothyroxine Sodium (Levothyroxine Sodium 25 Mcg Tablet) 25 mcg PO DAILY@0600 [facility] Last Admin: 07/25/23 05:50 Dose: 25 mcg Documented By: HERNAN Methylprednisolone Sodium Succinate (Methylprednisolone Sod Succ 40 Mg/Ml Vial) 40 mg IVPUSH Q12H [facility] Last Admin: 07/25/23 09:14 Dose: 40 mg Documented By: RAMYA Metoprolol Tartrate (Metoprolol Tartrate 25 Mg Tablet) 25 mg PO TID [facility]; Protocol Last Admin: 07/25/23 15:38 Dose: 25 mg Documented By: BAKARI Montelukast Sodium (Montelukast Sodium 10 Mg Tablet) 10 mg PO DAILY [facility] Last Admin: 07/25/23 09:16 Dose: 10 mg Documented By: RAMYA Non-Formulary Medication (Trospium) 60 mg PO 1XD [facility] Olanzapine (Olanzapine 5 Mg Tablet) 5 mg PO DAILY [facility] Last Admin: 07/25/23 09:16 Dose: 5 mg Documented By: RAMYA Omeprazole (Omeprazole 20 Mg Capsule.Dr) 20 mg PO BID@0630,1630 [facility] Last Admin: 07/25/23 05:50 Dose: 20 mg Documented By: HERNAN Rifaximin (Rifaximin 550 Mg Tablet) 550 mg PO BID [facility] Last Admin: 07/25/23 09:16 Dose: 550 mg Documented By: RAMYA Sodium Chloride (0.9 % Sodium Chloride Flush 3 Ml Syringe) 3 ml IVFLUSH QSHIFT [facility] Last Admin: 07/25/23 15:41 Dose: 3 ml Documented By: BAKARI Spironolactone (Spironolactone 25 Mg Tablet) 50 mg PO DAILY [facility]; Protocol Last Admin: 07/25/23 09:16 Dose: 50 mg Documented By: RAMYA Tiotropium [place] (Tiotropium [place] 2.5 Mcg 1 Puff/2.5 Mcg Mist.Inhal) 1 puff INHALE RDAILY [facility] Last Admin: 07/25/23 08:13 Dose: 1 puff Documented By: MANUEL Hillman 07/25/23 14:12 07/24/23 06:24 Labs: Laboratory Results - last 24 hr 07/24/23 07/25/23 07/25/23 20:32 07:39 09:17 Plt Count VBG pH 7.41 VBG pCO2 33 VBG pO2 85 VBG HCO3 21 L VBG O2 Saturation 97.0 VBG Base Excess -2.3 POC Glucose 184 H 144 H Estimat Average Glucose Hemoglobin A1c % Respiratory Panel [place] Adenovirus (Rapid PCR) B.pert (TEM-PCR) B.parapertussis DNA PCR C. pneumoniae DNA (PCR) Coronavirus OC43 (PCR) Coronavirus HKU1 (PCR) Coronavirus 229E (PCR) Coronavirus NL63 (PCR) Human Metapneumovir PCR Influenza A (RT-PCR) Influenza B (RT-PCR) M. pneumoniae (PCR) Parainfluenza 1 (PCR) Parainfluenza 2 (PCR) Parainfluenza 3 (PCR) Parainfluenza 4 (PCR) RSV (PCR) Entero/Rhino (PCR) SARS-CoV-2 RNA (RT-PCR) 07/25/23 07/25/23 07/25/23 11:26 11:35 14:12 Plt Count 86 L VBG pH VBG pCO2 VBG pO2 VBG HCO3 VBG O2 Saturation VBG Base Excess POC Glucose 188 H Estimat Average Glucose Hemoglobin A1c % Respiratory Panel [place] See Note Adenovirus (Rapid PCR) Not Detected B.pert (TEM-PCR) Not Detected B.parapertussis DNA PCR Not Detected C. pneumoniae DNA (PCR) Not Detected Coronavirus OC43 (PCR) Not Detected Coronavirus HKU1 (PCR) Not Detected Coronavirus 229E (PCR) Not Detected Coronavirus NL63 (PCR) Not Detected Human Metapneumovir PCR Not Detected Influenza A (RT-PCR) Not Detected Influenza B (RT-PCR) Not Detected M. pneumoniae (PCR) Not Detected Parainfluenza 1 (PCR) Not Detected Parainfluenza 2 (PCR) Not Detected Parainfluenza 3 (PCR) Not Detected Parainfluenza 4 (PCR) Not Detected RSV (PCR) Not Detected Entero/Rhino (PCR) Not Detected SARS-CoV-2 RNA (RT-PCR) Not Detected 07/25/23 07/25/23 14:22 15:52 Plt Count VBG pH VBG pCO2 VBG pO2 VBG HCO3 VBG O2 Saturation VBG Base Excess POC Glucose 300 H Estimat Average Glucose 134 Hemoglobin A1c % 6.3 H Respiratory Panel [place] Adenovirus (Rapid PCR) B.pert (TEM-PCR) B.parapertussis DNA PCR C. pneumoniae DNA (PCR) Coronavirus OC43 (PCR) Coronavirus HKU1 (PCR) Coronavirus 229E (PCR) Coronavirus NL63 (PCR) Human Metapneumovir PCR Influenza A (RT-PCR) Influenza B (RT-PCR) M. pneumoniae (PCR) Parainfluenza 1 (PCR) Parainfluenza 2 (PCR) Parainfluenza 3 (PCR) Parainfluenza 4 (PCR) RSV (PCR) Entero/Rhino (PCR) SARS-CoV-2 RNA (RT-PCR) Assessment and Plan (1) PAC (premature atrial contraction): Status: Acute (2) Type 2 diabetes mellitus: Status: Acute Plan 72yo F with HCV cirrhosis, HF unknown EF, HTN, hypothyroidism, COPD/asthma, GERD, anemia of chronic disease, pancytopenia, chronic constipation, DM2, and depression admitted to ICU for sepsis due to pneumonia. Did not require pressors so stepped down to M/S today. new onset afib: Terry vacs score is 3-4 continue metorpolol ,will decide ac use in am ( depend on morning a.m. labs, platelet count, patient also has history of liver cirrhosis, pancytopenia) Monitor on tele cardiology followup CHF exacerbation: Hfpef. Monitor i/o, daily weight iv lasix cardiology will follow up. PNA - 07/21- ceftriaxone/azithro- >change to doxy 07/22- given prolonged QTc, follow BCx, trend PCT [9.44 today], check RPP QTc prolongation - repeat EKG improved to 447 ms. tele and ekg reviewed with cardio:patient has She had significant premature atrial complexes on telemetry and concern was raised about atrial fibrillation. telemetry as well as a EKGs, she does not have atrial fibrillation and mostly had premature atrial complexes. stop cardizem/lovenox echo done: ef 65-70% acute lactic acidosis thought to be - due to cirrhosis COPD/asthma with acute exac sob improving P.o. steroids ,standing/prn nebs, Spiriva, Singulair hx hepatic encephalopathy - lactulose/rifaximin hypothyroidism - continue LT4 thrombocytopenia - due to sepsis + cirrhosis anemia - continue iron GERD - PPI HTN - spironolactone DM2 with hyperglycemia: Improving adjusted basal/bolus insulin adjusted. depression - escitalopram, olanzapine VTE ppx - d/c heparin given thrombocytopenia; use SCDs dispo - TBD In my clinical judgment, the patient requires continued inpatient hospitalization for the following reasons pneumonia : IV ABX, diabetes uncontrolled with hyperglycemia need monitor for fingersticks and adjustments of insulin, need tele monitoring and cardiac workup for new onset AFib.. Quality Stroke Does the patient have a stroke diagnosis?: No VTE Prior VTE?: No VTE Risk Level:: Medical - moderate - high VTE Device Contraindication: N/A - Device Ordered VTE Drug Contraindication: N/A - Med Ordered
[2023-07-25 20:29] LABS: Glucose, Whole Blood 349 mg/dL (60-115)
[2023-07-25] MEDS: Insulin Glargine,Hum.rec.anlog 100 UNIT/ML 10 ML VIAL 35 UNIT SUBCUT (20:55)
[2023-07-26] VITALS (10 sets, daily range): BP systolic 119–142; BP diastolic 57–66; PULSE 59–69; RESP 18–20; TEMP 36.2–36.6; O2SAT 94–98
[2023-07-26] MEDS: Omeprazole 20 MG CAPSULE.DR PO ×2 (05:42→17:43)
[2023-07-26] MEDS: Levothyroxine Sodium 25 MCG TABLET PO (05:42)
[2023-07-26 07:25] LABS: Hematocrit 34.1 % (37.0-47.0); Hemoglobin 10.9 g/dl (12.0-16.0)
[2023-07-26 07:46] LABS: Anion Gap 11 (12-20); Blood Urea Nitrogen 23 mg/dL (9-16); Calcium 9.1 mg/dL (8.4-10.2); Carbon Dioxide 25 mmol/L (22-29); Chloride 107 mmol/L (96-108); Creatinine Clr Calc Pharmacy 56.4; Estimated Glomerular Filt Rate > 60; Glucose Random 198 mg/dL (60-115); Potassium 4.5 mmol/L (3.3-5.1); Sodium 138 mmol/L (135-145)
[2023-07-26] MEDS: Albuterol/Iprat 2.5/0.5MG 3 ML AMPUL.NEB INHALE ×3 (07:49→20:07)
[2023-07-26 07:52] LABS: B Type Natriuretic Peptide 426 pg/mL (<100)
[2023-07-26 07:58] LABS: Glucose, Whole Blood 179 mg/dL (60-115)
[2023-07-26] MEDS: Insulin Lispro 100 UNIT/ML 3 ML VIAL SUBCUT ×4 (08:04→22:48)
[2023-07-26] MEDS: Spironolactone 25 MG TABLET 50 MG PO (08:05)
[2023-07-26] MEDS: Cyanocobalamin (Vitamin B-12) 1,000 MCG TABLET 1000 MCG PO (08:05)
[2023-07-26] MEDS: Gabapentin 100 MG CAPSULE 200 MG PO ×3 (08:05→22:04)
[2023-07-26] MEDS: predniSONE 20 MG TABLET 40 MG PO (08:05)
[2023-07-26] MEDS: Escitalopram Oxalate 20 MG TABLET PO (08:05)
[2023-07-26] MEDS: Doxycycline Monohydrate 100 MG CAPSULE PO ×2 (08:05→22:05)
[2023-07-26] MEDS: Montelukast Sodium 10 MG TABLET PO (08:05)
[2023-07-26] MEDS: Calcium + Vitamin D 250 MG TABLET PO (08:05)
[2023-07-26] MEDS: Furosemide 20 MG/2 ML VIAL IVPUSH (08:05)
[2023-07-26] MEDS: Ferrous Sulfate 324 MG TABLET.DR PO ×2 (08:05→22:05)
[2023-07-26] MEDS: Metoprolol Tartrate 25 MG TABLET PO ×3 (08:05→22:05)
[2023-07-26] MEDS: 0.9 % Sodium Chloride Flush 3 ML SYRINGE IVFLUSH ×3 (08:05→22:49)
[2023-07-26] MEDS: Atorvastatin Calcium 20 MG TABLET PO (08:06)
[2023-07-26] MEDS: OLANZapine 5 MG TABLET PO (08:06)
[2023-07-26] MEDS: rifAXIMin 550 MG TABLET PO ×2 (08:06→22:05)
[2023-07-26 08:23] LABS: Platelet Count 114 X10*3/uL (160-400)
--- NOTE | 2023-07-26 10:58 | MHC.CM.PN ---
Pt is not yet ready for DC. CM to follow and send updates to NA, who are following to provide home care services upon DC.
[2023-07-26 11:36] LABS: Glucose, Whole Blood 199 mg/dL (60-115)
--- NOTE | 2023-07-26 11:53 | PM.PNCARD ---
Subjective Subjective Date of Service: 07/26/23 Interval history: Seen examined at bedside. Yesterday evening she developed episode of atrial fibrillation. She has converted back to sinus rhythm. She also had an episode of atrial fibrillation in the morning. Complaining of some shortness of breath and is wheezy on examination. Physical Exam Vital Signs: Last Vital Signs Temp 97.2 F 07/26/23 11:15 Pulse 68 07/26/23 11:23 Resp 20 07/26/23 11:23 BP 142/66 H 07/26/23 11:15 Pulse Ox 96 07/26/23 11:15 O2 Del Method Nasal Cannula 07/26/23 11:15 O2 Flow Rate 2 07/26/23 11:15 BMI result Body Mass Index 36.0 GENERAL APPEARANCE: in no acute distress, pleasant. NECK: no carotid bruit, + jugular venous distention. SKIN: no suspicious lesions, warm and dry. HEART: no murmurs, regular rate and rhythm. LUNGS: Bilateral expiratory wheezes ABDOMEN: soft, nontender. EXTREMITIES: + edema. PERIPHERAL PULSES: equal. NEUROLOGIC: No gross deficits, AAO X 3. Objective Labs and Meds 07/26/23 06:43 07/26/23 06:43 Lab results: Laboratory Results - last 24 hr 07/25/23 07/25/23 07/25/23 11:35 14:12 14:22 Hgb 10.7 L Hct 32.8 L Plt Count 86 L Sodium Potassium Chloride Carbon Dioxide Anion Gap BUN Creatinine Estim Creat Clear Calc Estimated GFR POC Glucose Random Glucose Estimat Average Glucose 134 Hemoglobin A1c % 6.3 H Calcium B-Natriuretic Peptide Respiratory Panel Bonner See Note Adenovirus (Rapid PCR) Not Detected B.pert (TEM-PCR) Not Detected B.parapertussis DNA PCR Not Detected C. pneumoniae DNA (PCR) Not Detected Coronavirus OC43 (PCR) Not Detected Coronavirus HKU1 (PCR) Not Detected Coronavirus 229E (PCR) Not Detected Coronavirus NL63 (PCR) Not Detected Human Metapneumovir PCR Not Detected Influenza A (RT-PCR) Not Detected Influenza B (RT-PCR) Not Detected M. pneumoniae (PCR) Not Detected Parainfluenza 1 (PCR) Not Detected Parainfluenza 2 (PCR) Not Detected Parainfluenza 3 (PCR) Not Detected Parainfluenza 4 (PCR) Not Detected RSV (PCR) Not Detected Entero/Rhino (PCR) Not Detected SARS-CoV-2 RNA (RT-PCR) Not Detected 07/25/23 07/25/23 07/26/23 15:52 20:26 06:43 Hgb 10.9 L Hct 34.1 L Plt Count 114 L D Sodium 138 Potassium 4.5 Chloride 107 Carbon Dioxide 25 Anion Gap 11 L BUN 23 H Creatinine 0.84 Estim Creat Clear Calc 56.4 Estimated GFR > 60 POC Glucose 300 H 349 H Random Glucose 198 H Estimat Average Glucose Hemoglobin A1c % Calcium 9.1 B-Natriuretic Peptide 426 H Respiratory Panel Bonner Adenovirus (Rapid PCR) B.pert (TEM-PCR) B.parapertussis DNA PCR C. pneumoniae DNA (PCR) Coronavirus OC43 (PCR) Coronavirus HKU1 (PCR) Coronavirus 229E (PCR) Coronavirus NL63 (PCR) Human Metapneumovir PCR Influenza A (RT-PCR) Influenza B (RT-PCR) M. pneumoniae (PCR) Parainfluenza 1 (PCR) Parainfluenza 2 (PCR) Parainfluenza 3 (PCR) Parainfluenza 4 (PCR) RSV (PCR) Entero/Rhino (PCR) SARS-CoV-2 RNA (RT-PCR) 07/26/23 07/26/23 07:37 11:18 Hgb Hct Plt Count Sodium Potassium Chloride Carbon Dioxide Anion Gap BUN Creatinine Estim Creat Clear Calc Estimated GFR POC Glucose 179 H 199 H Random Glucose Estimat Average Glucose Hemoglobin A1c % Calcium B-Natriuretic Peptide Respiratory Panel [place] Adenovirus (Rapid PCR) B.pert (TEM-PCR) B.parapertussis DNA PCR C. pneumoniae DNA (PCR) Coronavirus OC43 (PCR) Coronavirus HKU1 (PCR) Coronavirus 229E (PCR) Coronavirus NL63 (PCR) Human Metapneumovir PCR Influenza A (RT-PCR) Influenza B (RT-PCR) M. pneumoniae (PCR) Parainfluenza 1 (PCR) Parainfluenza 2 (PCR) Parainfluenza 3 (PCR) Parainfluenza 4 (PCR) RSV (PCR) Entero/Rhino (PCR) SARS-CoV-2 RNA (RT-PCR) Progress Note: A&P Assessment and plan (1) PAF (paroxysmal atrial fibrillation): Status: Acute (2) Mitral regurgitation: Status: Acute (3) Congestive heart failure: Status: Acute Plan Pleasant 72-year-old female with background of hepatitis-C, cirrhosis of liver, congestive heart failure, hypertension, COPD, diabetes and pancytopenia. Echocardiography has shown moderate mitral valve regurgitation. She has been in and out of atrial fibrillation. Clinically she is volume overloaded. She has background of pancytopenia and platelets have been between [id number]. She previously had heme-positive stools in March 2023 and was seen by GI Dr. Garcia. It was felt that she does not have any active bleeding and endoscopy or any further testing was not pursued. Was advised that she does not use aspirin or NSAIDs and stay on omeprazole. Given the fact that she has been in out of atrial fibrillation and has high risk for stroke, there is a question about starting anticoagulation on her. I thing GI should be curb sided about this and if they are agreeable then Eliquis can be started. Alternatively we can also washer closely and use cardiac event monitoring as she goes home to see if she has prolonged episodes of atrial fibrillation. So far she has not had persistent AFib and probably the risk of stroke is slightly lower. Clinically in heart failure and would recommend 40 mg IV Lasix daily for now. Agree with beta-isaiah. In sinus rhythm currently. Thank you for allowing me to participate in the care of your patient. Please feel free to contact me if you have any questions. Time Spent With Patient Time: Total time managing care of this patient today ____ minutes. Progress Note: Quality Stroke Does the patient have a stroke diagnosis?: No Procedures Date of Service Date of Service: 07/26/23
[2023-07-26] MEDS: Furosemide 40 MG/4 ML VIAL IVPUSH (12:37)
[2023-07-26] MEDS: cefTRIAXone sodium 1 GM in 0.9 % Sodium Chloride 50 ML IV (12:37)
--- NOTE | 2023-07-26 14:03 | HO.PM.IMPN ---
Subjective Subjective Date of Service: 07/26/23 Interval History: chf execerebation Review of Systems sob seems similar to yesterday has dry cough no fever or chills Physical Exam Vital Signs: Vital Signs: Last Vital Signs Temp 97.2 F 07/26/23 11:15 Pulse 68 07/26/23 11:23 Resp 20 07/26/23 11:23 BP 142/66 H 07/26/23 11:15 Pulse Ox 96 07/26/23 11:15 O2 Del Method Nasal Cannula 07/26/23 11:15 O2 Flow Rate 2 07/26/23 11:15 BMI result Body Mass Index 36.0 Appearance: Alert.? Oriented X3.? cvs: rrr, [id number] , no murmur res: air entry seems diminshed ,has few rales /rhonchii abd: no rebound or guarding ,nt, bs present. ext pulses present , no cyanosisd. neuro: axo3 , nonfocal. Objective Data Active Medications Acetaminophen (Acetaminophen 325 Mg Tablet) 650 mg PO Q6H PRN PRN Reason: Pain, Moderate(Pain Scale 4-6) Last Admin: 07/25/23 22:31 Dose: 650 mg Documented By: KATHARINE Albuterol Sulfate (Albuterol Sulfate (0.083%) 2.5 Mg/3 Ml Vial.Neb) 2.5 mg INHALE Q2H PRN PRN Reason: Wheezing Last Admin: 07/25/23 03:14 Dose: 2.5 mg Documented By: CECILIA Albuterol/Ipratropium (Albuterol/Iprat 2.5/0.5mg 3 Ml Ampul.Neb) 3 ml INHALE RQ4H WHILE AWAKE [facility] Last Admin: 07/26/23 11:21 Dose: 3 ml Documented By: REGINE Atorvastatin Calcium (Atorvastatin Calcium 20 Mg Tablet) 20 mg PO DAILY [facility] Last Admin: 07/26/23 08:06 Dose: 20 mg Documented By: BAKARI Calcium Carbonate/Cholecalciferol (Calcium + Vitamin D 250 Mg Tablet) 250 mg PO DAILY [facility] Last Admin: 07/26/23 08:05 Dose: 250 mg Documented By: BAKARI Cyanocobalamin (Cyanocobalamin (Vitamin B-12) 1,000 Mcg Tablet) 1,000 mcg PO DAILY [facility] Last Admin: 07/26/23 08:05 Dose: 1,000 mcg Documented By: BAKARI Dextrose (Dextrose 50 % 25 Gm/50 Ml Syringe) 25 gm IVPUSH Q30M PRN PRN Reason: BG < 70 Doxycycline Monohydrate (Doxycycline Monohydrate 100 Mg Capsule) 100 mg PO Q12H [facility] Last Admin: 07/26/23 08:05 Dose: 100 mg Documented By: BAKARI Escitalopram Oxalate (Escitalopram Oxalate 20 Mg Tablet) 20 mg PO DAILY [facility] Last Admin: 07/26/23 08:05 Dose: 20 mg Documented By: BAKARI Ferrous Sulfate (Ferrous Sulfate 324 Mg Tablet.Dr) 324 mg PO BID [facility] Last Admin: 07/26/23 08:05 Dose: 324 mg Documented By: ABKARI Furosemide (Furosemide 20 Mg/2 Ml Vial) 20 mg IVPUSH DAILY [facility]; Protocol Last Admin: 07/26/23 08:05 Dose: 20 mg Documented By: BAKARI Gabapentin (Gabapentin 100 Mg Capsule) 200 mg PO TID [facility] Last Admin: 07/26/23 08:05 Dose: 200 mg Documented By: BAKARI Guaifenesin/Dextromethorphan (Guaifenesin Dm 200/20/10 Ml 10 Ml Syrup) 10 ml PO Q6H PRN PRN Reason: cough Last Admin: 07/25/23 03:49 Dose: 10 ml Documented By: HERNAN Hydroxyzine HCl (Hydroxyzine Hcl 25 Mg Tablet) 25 mg PO Q6H PRN PRN Reason: Anxiety Ceftriaxone Sodium 1 gm/ (Sodium Chloride) 50 mls @ 100 mls/hr IV Q24H [facility] Last Infusion: 07/26/23 13:28 Dose: Infused Documented By: BAKARI Insulin Glargine (Insulin Glargine,Hum.Rec.Anlog 100 Unit/Ml 10 Ml Vial) 35 unit SUBCUT BEDTIME [facility] Last Admin: 07/25/23 20:55 Dose: 35 unit Documented By: KATHARINE Insulin Human Lispro (Insulin Lispro 100 Unit/Ml 3 Ml Vial) 0 unit SUBCUT QIDACHS [facility]; Protocol Last Admin: 07/26/23 12:37 Dose: 4 unit Documented By: BAKARI Lactulose (Lactulose 20 Gm/30 Ml Solution) 20 gm PO TID [facility] Last Admin: 07/26/23 08:06 Dose: Not Given Documented By: BAKARI Non-Admin Reason: multiple loose stools Levothyroxine Sodium (Levothyroxine Sodium 25 Mcg Tablet) 25 mcg PO DAILY@0600 [facility] Last Admin: 07/26/23 05:42 Dose: 25 mcg Documented By: KATHARINE Metoprolol Tartrate (Metoprolol Tartrate 25 Mg Tablet) 25 mg PO TID [facility]; Protocol Last Admin: 07/26/23 08:05 Dose: 25 mg Documented By: BAKARI Montelukast Sodium (Montelukast Sodium 10 Mg Tablet) 10 mg PO DAILY [facility] Last Admin: 07/26/23 08:05 Dose: 10 mg Documented By: BAKARI Olanzapine (Olanzapine 5 Mg Tablet) 5 mg PO DAILY [facility] Last Admin: 07/26/23 08:06 Dose: 5 mg Documented By: BAKARI Omeprazole (Omeprazole 20 Mg Capsule.Dr) 20 mg PO BID@0630,1630 [facility] Last Admin: 07/26/23 05:42 Dose: 20 mg Documented By: KATHARINE Prednisone (Prednisone 20 Mg Tablet) 40 mg PO DAILY [facility] Last Admin: 07/26/23 08:05 Dose: 40 mg Documented By: BAKARI Rifaximin (Rifaximin 550 Mg Tablet) 550 mg PO BID [facility] Last Admin: 07/26/23 08:06 Dose: 550 mg Documented By: BAKARI Sodium Chloride (0.9 % Sodium Chloride Flush 3 Ml Syringe) 3 ml IVFLUSH QSHIFT [facility] Last Admin: 07/26/23 08:05 Dose: 3 ml Documented By: BAKARI Spironolactone (Spironolactone 25 Mg Tablet) 50 mg PO DAILY [facility]; Protocol Last Admin: 07/26/23 08:05 Dose: 50 mg Documented By: BAKARI Tiotropium [place] (Tiotropium [place] 2.5 Mcg 1 Puff/2.5 Mcg Mist.Inhal) 1 puff INHALE RDAILY [facility] Last Admin: 07/26/23 07:49 Dose: Not Given Documented By: REGINE Non-Admin Reason: Med Not Available Labs 07/26/23 06:43 07/26/23 06:43 Labs: Laboratory Results - last 24 hr 07/25/23 07/25/23 07/25/23 11:35 14:12 14:22 Plt Count 86 L Anion Gap Estim Creat Clear Calc Estimated GFR POC Glucose Random Glucose Estimat Average Glucose 134 Hemoglobin A1c % 6.3 H Calcium B-Natriuretic Peptide Respiratory Panel [place]ner See Note Adenovirus (Rapid PCR) Not Detected B.pert (TEM-PCR) Not Detected B.parapertussis DNA PCR Not Detected C. pneumoniae DNA (PCR) Not Detected Coronavirus OC43 (PCR) Not Detected Coronavirus HKU1 (PCR) Not Detected Coronavirus 229E (PCR) Not Detected Coronavirus NL63 (PCR) Not Detected Human Metapneumovir PCR Not Detected Influenza A (RT-PCR) Not Detected Influenza B (RT-PCR) Not Detected M. pneumoniae (PCR) Not Detected Parainfluenza 1 (PCR) Not Detected Parainfluenza 2 (PCR) Not Detected Parainfluenza 3 (PCR) Not Detected Parainfluenza 4 (PCR) Not Detected RSV (PCR) Not Detected Entero/Rhino (PCR) Not Detected SARS-CoV-2 RNA (RT-PCR) Not Detected 07/25/23 07/25/23 07/26/23 15:52 20:26 06:43 Plt Count 114 L D Anion Gap 11 L Estim Creat Clear Calc 56.4 Estimated GFR > 60 POC Glucose 300 H 349 H Random Glucose 198 H Estimat Average Glucose Hemoglobin A1c % Calcium 9.1 B-Natriuretic Peptide 426 H Respiratory Panel [place] Adenovirus (Rapid PCR) B.pert (TEM-PCR) B.parapertussis DNA PCR C. pneumoniae DNA (PCR) Coronavirus OC43 (PCR) Coronavirus HKU1 (PCR) Coronavirus 229E (PCR) Coronavirus NL63 (PCR) Human Metapneumovir PCR Influenza A (RT-PCR) Influenza B (RT-PCR) M. pneumoniae (PCR) Parainfluenza 1 (PCR) Parainfluenza 2 (PCR) Parainfluenza 3 (PCR) Parainfluenza 4 (PCR) RSV (PCR) Entero/Rhino (PCR) SARS-CoV-2 RNA (RT-PCR) 07/26/23 07/26/23 07:37 11:18 Plt Count Anion Gap Estim Creat Clear Calc Estimated GFR POC Glucose 179 H 199 H Random Glucose Estimat Average Glucose Hemoglobin A1c % Calcium B-Natriuretic Peptide Respiratory Panel [place] Adenovirus (Rapid PCR) B.pert (TEM-PCR) B.parapertussis DNA PCR C. pneumoniae DNA (PCR) Coronavirus OC43 (PCR) Coronavirus HKU1 (PCR) Coronavirus 229E (PCR) Coronavirus NL63 (PCR) Human Metapneumovir PCR Influenza A (RT-PCR) Influenza B (RT-PCR) M. pneumoniae (PCR) Parainfluenza 1 (PCR) Parainfluenza 2 (PCR) Parainfluenza 3 (PCR) Parainfluenza 4 (PCR) RSV (PCR) Entero/Rhino (PCR) SARS-CoV-2 RNA (RT-PCR) Assessment and Plan (1) Congestive heart failure: Status: Acute (2) Asthma-COPD overlap syndrome: Status: Acute Plan 72yo F with HCV cirrhosis, HF unknown EF, HTN, hypothyroidism, COPD/asthma, GERD, anemia of chronic disease, pancytopenia, chronic constipation, DM2, and depression admitted to ICU for sepsis due to pneumonia. Did not require pressors so stepped down to M/S today. new onset afib: Terry vacs score is 3-4 continue metorpolol ,will decide ac use in am ( depend on morning a.m. labs, platelet count, patient also has history of liver cirrhosis, pancytopenia)-added Gi eval for AC? Monitor on tele cardiology followup CHF exacerbation: Hfpef. Monitor i/o, daily weight switched to 40 mg iv lasix cardiology will follow up. PNA - 07/21- ceftriaxone/azithro- >change to doxy 07/22- given prolonged QTc, follow BCx, trend PCT [9.44 today], check RPP QTc prolongation - repeat EKG improved to 447 ms. tele and ekg reviewed with cardio:patient has She had significant premature atrial complexes on telemetry and concern was raised about atrial fibrillation. telemetry as well as a EKGs, she does not have atrial fibrillation and mostly had premature atrial complexes. stop cardizem/lovenox echo done: ef 65-70% acute lactic acidosis thought to be - due to cirrhosis COPD/asthma with acute exac sob improving P.o. steroids ,standing/prn nebs, Spiriva, Singulair hx hepatic encephalopathy - lactulose/rifaximin hypothyroidism - continue LT4 thrombocytopenia - due to sepsis + cirrhosis anemia - continue iron GERD - PPI HTN - spironolactone DM2 with hyperglycemia: Improving adjusted basal/bolus insulin adjusted. depression - escitalopram, olanzapine VTE ppx - d/c heparin given thrombocytopenia; use SCDs dispo - TBD ongoing inpatient hospitalization for the following reasons pneumonia : IV ABX, diabetes uncontrolled with hyperglycemia need monitor for fingersticks and adjustments of insulin, need tele monitoring and cardiac workup for new onset AFib.. Quality Stroke Does the patient have a stroke diagnosis?: No VTE Prior VTE?: No VTE Risk Level:: Medical - moderate - high VTE Device Contraindication: N/A - Device Ordered VTE Drug Contraindication: N/A - Med Ordered
[2023-07-26 16:31] LABS: Glucose, Whole Blood 313 mg/dL (60-115)
[2023-07-26 19:33] LABS: Procalcitonin 1.85 ng/mL
[2023-07-26] MEDS: guaiFENesin DM 200/20/10 ML 10 ML SYRUP PO (22:04)
[2023-07-26] MEDS: Acetaminophen 325 MG TABLET 650 MG PO (22:05)
[2023-07-26] MEDS: Insulin Glargine,Hum.rec.anlog 100 UNIT/ML 10 ML VIAL 35 UNIT SUBCUT (22:06)
[2023-07-26 22:15] LABS: Glucose, Whole Blood 240 mg/dL (60-115)
[2023-07-26] MEDS: Albuterol Sulfate (0.083%) 2.5 MG/3 ML VIAL.NEB INHALE (23:04)
[2023-07-27] VITALS (11 sets, daily range): BP systolic 94–140; BP diastolic 51–64; PULSE 59–67; RESP 2–22; TEMP 36–36.7; O2SAT 93–99
--- NOTE | 2023-07-27 | ECG_ITS ---
Test Reason : afib Blood Pressure : / mmHG Vent. Rate : 063 BPM Atrial Rate : 063 BPM P-R Int : 138 ms QRS Dur : 078 ms QT Int : 450 ms P-R-T Axes : 017 052 059 degrees QTc Int : 460 ms Normal sinus rhythm Anteroseptal infarct , age undetermined Abnormal ECG When compared with ECG of 25-JUL-2023 12:43, Sinus rhythm has replaced Atrial fibrillation Vent. rate has decreased BY [address] no longer depressed in Anterolateral leads Nonspecific T wave abnormality no longer evident in Inferior leads Nonspecific T wave abnormality now evident in Anterior leads Referred By: Italia Avila Electronically Signed By:Jesus Barnard
[2023-07-27] MEDS: Omeprazole 20 MG CAPSULE.DR PO ×2 (06:07→15:17)
[2023-07-27] MEDS: Levothyroxine Sodium 25 MCG TABLET PO (06:07)
[2023-07-27 07:06] LABS: Glucose, Whole Blood 133 mg/dL (60-115)
[2023-07-27 07:36] LABS: Anion Gap 11 (12-20); Blood Urea Nitrogen 24 mg/dL (9-16); Calcium 8.7 mg/dL (8.4-10.2); Carbon Dioxide 27 mmol/L (22-29); Chloride 104 mmol/L (96-108); Creatinine Clr Calc Pharmacy 58.6; Estimated Glomerular Filt Rate > 60; Glucose Random 138 mg/dL (60-115); Potassium 3.8 mmol/L (3.3-5.1); Sodium 138 mmol/L (135-145)
[2023-07-27] MEDS: Tiotropium Bromide 2.5 mcg 1 PUFF/2.5 MCG MIST.INHAL INHALE (08:24)
[2023-07-27] MEDS: guaiFENesin DM 200/20/10 ML 10 ML SYRUP PO (08:25)
[2023-07-27] MEDS: 0.9 % Sodium Chloride Flush 3 ML SYRINGE IVFLUSH ×3 (08:25→20:27)
[2023-07-27] MEDS: Gabapentin 100 MG CAPSULE 200 MG PO ×3 (08:26→20:26)
[2023-07-27] MEDS: Acetaminophen 325 MG TABLET 650 MG PO ×3 (08:26→21:04)
[2023-07-27] MEDS: Atorvastatin Calcium 20 MG TABLET PO (08:26)
[2023-07-27] MEDS: predniSONE 20 MG TABLET 40 MG PO (08:26)
[2023-07-27] MEDS: Ferrous Sulfate 324 MG TABLET.DR PO ×2 (08:26→20:26)
[2023-07-27] MEDS: Furosemide 20 MG/2 ML VIAL IVPUSH ×2 (08:26→10:41)
[2023-07-27] MEDS: Calcium + Vitamin D 250 MG TABLET PO (08:27)
[2023-07-27] MEDS: Metoprolol Tartrate 25 MG TABLET PO ×2 (08:27→20:26)
[2023-07-27] MEDS: Spironolactone 25 MG TABLET 50 MG PO (08:27)
[2023-07-27] MEDS: Doxycycline Monohydrate 100 MG CAPSULE PO ×2 (08:27→20:26)
[2023-07-27] MEDS: Cyanocobalamin (Vitamin B-12) 1,000 MCG TABLET 1000 MCG PO (08:27)
[2023-07-27] MEDS: Albuterol/Iprat 2.5/0.5MG 3 ML AMPUL.NEB INHALE ×4 (08:27→20:17)
[2023-07-27] MEDS: rifAXIMin 550 MG TABLET PO ×2 (08:27→20:26)
[2023-07-27] MEDS: OLANZapine 5 MG TABLET PO (08:27)
[2023-07-27] MEDS: Escitalopram Oxalate 20 MG TABLET PO (08:27)
[2023-07-27] MEDS: Montelukast Sodium 10 MG TABLET PO (08:27)
--- NOTE | 2023-07-27 10:26 | PM.PNCARD ---
Subjective Subjective Date of Service: 07/27/23 Interval history: Seen examined at bedside. Saying that she is little better today. Hospitalist had discussion with patient's daughter about anticoagulation and she refused anticoagulation because the patient previously had varices bleeding and banding. Physical Exam Vital Signs: Last Vital Signs Temp 97.2 F 07/27/23 07:08 Pulse 67 07/27/23 08:27 Resp 16 07/27/23 08:27 BP 127/63 07/27/23 07:08 Pulse Ox 96 07/27/23 07:08 O2 Del Method Nasal Cannula 07/27/23 07:08 O2 Flow Rate 2 07/27/23 07:08 BMI result Body Mass Index 36.0 GENERAL APPEARANCE: in no acute distress, pleasant. NECK: no carotid bruit, + jugular venous distention. SKIN: no suspicious lesions, warm and dry. HEART: no murmurs, regular rate and rhythm. LUNGS: Bilateral expiratory wheezes ABDOMEN: soft, nontender. EXTREMITIES: + edema. PERIPHERAL PULSES: equal. NEUROLOGIC: No gross deficits, AAO X 3. Objective Labs and Meds 07/26/23 06:43 07/27/23 06:38 Lab results: Laboratory Results - last 24 hr 07/26/23 07/26/23 07/26/23 06:43 11:18 16:27 Hold Purple Top Sodium Potassium Chloride Carbon Dioxide Anion Gap BUN Creatinine Estim Creat Clear Calc Estimated GFR POC Glucose 199 H 313 H Random Glucose Calcium Procalcitonin 1.85 07/26/23 07/27/23 07/27/23 20:16 06:38 07:01 Hold Purple Top SEE NOTE Sodium 138 Potassium 3.8 Chloride 104 Carbon Dioxide 27 Anion Gap 11 L BUN 24 H Creatinine 0.81 Estim Creat Clear Calc 58.6 Estimated GFR > 60 POC Glucose 240 H 133 H Random Glucose 138 H Calcium 8.7 Procalcitonin Progress Note: A&P Assessment and plan (1) Congestive heart failure: Status: Acute (2) Mitral regurgitation: Status: Acute (3) PAF (paroxysmal atrial fibrillation): Status: Acute Plan 72-year-old female presenting for pneumonia and now shortness of breath likely due to congestive heart failure. Lasix 40 mg IV b.i.d.. Continue spironolactone 50 mg daily. Continue metoprolol 25 mg t.i.d.. She is currently in sinus rhythm. Chads Vasc score is high but she also has high bleeding risk and the family is not agreeable for anticoagulation currently. We will follow along with you. Thank you for allowing me to participate in the care of your patient. Please feel free to contact me if you have any questions. Time Spent With Patient Time: Total time managing care of this patient today ____ minutes. Progress Note: Quality Stroke Does the patient have a stroke diagnosis?: No Procedures Date of Service Date of Service: 07/27/23
[2023-07-27 10:56] LABS: Glucose, Whole Blood 244 mg/dL (60-115)
[2023-07-27] MEDS: Insulin Lispro 100 UNIT/ML 3 ML VIAL SUBCUT ×3 (12:06→20:26)
[2023-07-27] MEDS: cefTRIAXone sodium 1 GM in 0.9 % Sodium Chloride 50 ML IV (12:06)
--- NOTE | 2023-07-27 15:41 | P.PNIM_ITS ---
Subjective Subjective Date of Service: 07/27/23 Interval History: chf excerebation Review of Systems Still short of breath with minimal exertion, has leg edema, denies any chest pain or cough. Physical Exam 2 Vital Signs: Vital Signs: Last Vital Signs Temp 96.8 F 07/27/23 15:18 Pulse 63 07/27/23 15:18 Resp 20 07/27/23 15:18 BP 139/58 L 07/27/23 15:18 Pulse Ox 95 07/27/23 15:18 O2 Del Method Nasal Cannula 07/27/23 15:18 O2 Flow Rate 2 07/27/23 15:18 BMI result Body Mass Index 36.0 Appearance: Alert.? Oriented X3.? cvs: [id number], [id number] , no murmur res: air entry seems diminshed ,has few rales /rhonchii abd: no rebound or guarding ,nt, bs present. ext pulses present , no cyanosisd. neuro: axo3 , nonfocal. Objective Data Active Medications Acetaminophen (Acetaminophen 325 Mg Tablet) 650 mg PO Q6H PRN PRN Reason: Pain, Moderate(Pain Scale 4-6) Last Admin: 07/27/23 15:17 Dose: 650 mg Documented By: MOSHE Albuterol Sulfate (Albuterol Sulfate (0.083%) 2.5 Mg/3 Ml Vial.Neb) 2.5 mg INHALE Q2H PRN PRN Reason: Wheezing Last Admin: 07/26/23 23:04 Dose: 2.5 mg Documented By: YAJAIRA Albuterol/Ipratropium (Albuterol/Iprat 2.5/0.5mg 3 Ml Ampul.Neb) 3 ml INHALE RQ4H WHILE AWAKE [facility] Last Admin: 07/27/23 11:54 Dose: 3 ml Documented By: ALEXANDRU Atorvastatin Calcium (Atorvastatin Calcium 20 Mg Tablet) 20 mg PO DAILY [facility] Last Admin: 07/27/23 08:26 Dose: 20 mg Documented By: MOSHE Calcium Carbonate/Cholecalciferol (Calcium + Vitamin D 250 Mg Tablet) 250 mg PO DAILY [facility] Last Admin: 07/27/23 08:27 Dose: 250 mg Documented By: MOSHE Cyanocobalamin (Cyanocobalamin (Vitamin B-12) 1,000 Mcg Tablet) 1,000 mcg PO DAILY [facility] Last Admin: 07/27/23 08:27 Dose: 1,000 mcg Documented By: MOSHE Dextrose (Dextrose 50 % 25 Gm/50 Ml Syringe) 25 gm IVPUSH Q30M PRN PRN Reason: BG < 70 Doxycycline Monohydrate (Doxycycline Monohydrate 100 Mg Capsule) 100 mg PO Q12H [facility] Last Admin: 07/27/23 08:27 Dose: 100 mg Documented By: MOSHE Escitalopram Oxalate (Escitalopram Oxalate 20 Mg Tablet) 20 mg PO DAILY [facility] Last Admin: 07/27/23 08:27 Dose: 20 mg Documented By: MOSHE Ferrous Sulfate (Ferrous Sulfate 324 Mg Tablet.Dr) 324 mg PO BID [facility] Last Admin: 07/27/23 08:26 Dose: 324 mg Documented By: MOSHE Furosemide (Furosemide 40 Mg/4 Ml Vial) 40 mg IVPUSH Q12H [facility]; Protocol Last Admin: 07/27/23 10:34 Dose: Not Given Documented By: MOSHE Non-Admin Reason: Not Given, dose staring tomorrow Gabapentin (Gabapentin 100 Mg Capsule) 200 mg PO TID [facility] Last Admin: 07/27/23 15:17 Dose: 200 mg Documented By: MOSHE Guaifenesin/Dextromethorphan (Guaifenesin Dm 200/20/10 Ml 10 Ml Syrup) 10 ml PO Q6H PRN PRN Reason: cough Last Admin: 07/27/23 08:25 Dose: 10 ml Documented By: MOSHE Hydroxyzine HCl (Hydroxyzine Hcl 25 Mg Tablet) 25 mg PO Q6H PRN PRN Reason: Anxiety Ceftriaxone Sodium 1 gm/ (Sodium Chloride) 50 mls @ 100 mls/hr IV Q24H [facility] Last Infusion: 07/27/23 12:40 Dose: Infused Documented By: MOSHE Insulin Glargine (Insulin Glargine,Hum.Rec.Anlog 100 Unit/Ml 10 Ml Vial) 35 unit SUBCUT BEDTIME [facility] Last Admin: 07/26/23 22:06 Dose: 35 unit Documented By: GAVIOTA Insulin Human Lispro (Insulin Lispro 100 Unit/Ml 3 Ml Vial) 0 unit SUBCUT QIDACHS [facility]; Protocol Last Admin: 07/27/23 12:06 Dose: 8 unit Documented By: MOSHE Lactulose (Lactulose 20 Gm/30 Ml Solution) 20 gm PO TID [facility] Last Admin: 07/27/23 14:49 Dose: Not Given Documented By: MOSHE Non-Admin Reason: loose bowel movements Levothyroxine Sodium (Levothyroxine Sodium 25 Mcg Tablet) 25 mcg PO DAILY@0600 [facility] Last Admin: 07/27/23 06:07 Dose: 25 mcg Documented By: GAVIOTA Metoprolol Tartrate (Metoprolol Tartrate 25 Mg Tablet) 25 mg PO TID [facility]; Protocol Last Admin: 07/27/23 14:59 Dose: Not Given Documented By: MOSHE Non-Admin Reason: Hold Per MD d/t decreased BP Montelukast Sodium (Montelukast Sodium 10 Mg Tablet) 10 mg PO DAILY [facility] Last Admin: 07/27/23 08:27 Dose: 10 mg Documented By: MOSHE Olanzapine (Olanzapine 5 Mg Tablet) 5 mg PO DAILY [facility] Last Admin: 07/27/23 08:27 Dose: 5 mg Documented By: MOSHE Omeprazole (Omeprazole 20 Mg Capsule.Dr) 20 mg PO BID@0630,1630 [facility] Last Admin: 07/27/23 15:17 Dose: 20 mg Documented By: MOSHE Prednisone (Prednisone 20 Mg Tablet) 40 mg PO DAILY [facility] Last Admin: 07/27/23 08:26 Dose: 40 mg Documented By: MOSHE Rifaximin (Rifaximin 550 Mg Tablet) 550 mg PO BID [facility] Last Admin: 07/27/23 08:27 Dose: 550 mg Documented By: MOSHE Sodium Chloride (0.9 % Sodium Chloride Flush 3 Ml Syringe) 3 ml IVFLUSH QSHIFT [facility] Last Admin: 07/27/23 15:17 Dose: 3 ml Documented By: MOSHE Spironolactone (Spironolactone 25 Mg Tablet) 50 mg PO DAILY [facility]; Protocol Last Admin: 07/27/23 08:27 Dose: 50 mg Documented By: MOSHE Tiotropium Ehrhardt (Tiotropium Ehrhardt 2.5 Mcg 1 Puff/2.5 Mcg Mist.Inhal) 1 puff INHALE RDAILY [facility] Last Admin: 07/27/23 08:24 Dose: 1 puff Documented By: MANUEL Labs 07/26/23 06:43 07/27/23 06:38 Labs: Laboratory Results - last 24 hr 07/26/23 07/26/23 07/26/23 06:43 16:27 20:16 Hold Purple Top Anion Gap Estim Creat Clear Calc Estimated GFR POC Glucose 313 H 240 H Random Glucose Calcium Procalcitonin 1.85 07/27/23 07/27/23 07/27/23 06:38 07:01 10:50 Hold Purple Top SEE NOTE Anion Gap 11 L Estim Creat Clear Calc 58.6 Estimated GFR > 60 POC Glucose 133 H 244 H Random Glucose 138 H Calcium 8.7 Procalcitonin Microbiology Microbiology Results: Microbiology 07/21/23 13:32 Blood Culture - Final Blood - Venous No growth after 5 days. 07/21/23 13:32 Blood Culture - Final Blood - Venous No growth after 5 days. Assessment and Plan (1) Congestive heart failure: Status: Acute (2) PAF (paroxysmal atrial fibrillation): Status: Acute Plan 72yo F with HCV cirrhosis, HF unknown EF, HTN, hypothyroidism, COPD/asthma, GERD, anemia of chronic disease, pancytopenia, chronic constipation, DM2, and depression admitted to ICU for sepsis due to pneumonia. Did not require pressors so stepped down to M/S today. new onset afib: Terry vacs score is 3-4 continue metorpolol . d/w gi and family -currently not considering AC( depend on morning a.m. labs, platelet count, HX of varices ,portal htn,patient also has history of liver cirrhosis, pancytopenia) back to sinus rythem since yesterday -will add ekg to confirm Monitor on tele cardiology followup CHF exacerbation: Hfpef. Monitor i/o, daily weight switched to 40 mg iv lasix cardiology will follow up. PNA - 07/21- ceftriaxone/azithro- >change to doxy 07/22- given prolonged QTc, follow BCx, trend PCT [9.44 today], check RPP QTc prolongation - repeat EKG improved to 447 ms. tele and ekg reviewed with cardio:patient has She had significant premature atrial complexes on telemetry and concern was raised about atrial fibrillation. telemetry as well as a EKGs, she does not have atrial fibrillation and mostly had premature atrial complexes. stop cardizem/lovenox echo done: ef 65-70% acute lactic acidosis thought to be - due to cirrhosis COPD/asthma with acute exac sob improving P.o. steroids ,standing/prn nebs, Spiriva, Singulair hx hepatic encephalopathy - lactulose/rifaximin hypothyroidism - continue LT4 thrombocytopenia - due to sepsis + cirrhosis anemia - continue iron GERD - PPI HTN - spironolactone DM2 with hyperglycemia: Improving adjusted basal/bolus insulin adjusted. depression - escitalopram, olanzapine VTE ppx - d/c heparin given thrombocytopenia; use SCDs dispo - TBD ongoing inpatient hospitalization for the following reasons pneumonia : IV ABX, diabetes uncontrolled with hyperglycemia need monitor for fingersticks and adjustments of insulin, need tele monitoring and cardiac workup for new onset AFib. Quality Stroke Does the patient have a stroke diagnosis?: No VTE Prior VTE?: No VTE Risk Level:: Medical - moderate - high VTE Device Contraindication: N/A - Device Ordered VTE Drug Contraindication: N/A - Med Ordered
[2023-07-27 16:42] LABS: Glucose, Whole Blood 376 mg/dL (60-115)
[2023-07-27 20:09] LABS: Glucose, Whole Blood 369 mg/dL (60-115)
[2023-07-27] MEDS: Lactulose 20 GM/30 ML SOLUTION PO (20:26)
[2023-07-27] MEDS: Insulin Glargine,Hum.rec.anlog 100 UNIT/ML 10 ML VIAL 35 UNIT SUBCUT (20:26)
[2023-07-27] MEDS: Furosemide 40 MG/4 ML VIAL IVPUSH (23:43)
[2023-07-27 23:44] LABS: Glucose, Whole Blood 240 mg/dL (60-115)
[2023-07-28] VITALS (9 sets, daily range): BP systolic 114–152; BP diastolic 53–67; PULSE 58–67; RESP 15–20; TEMP 35.5–36.9; O2SAT 95–98
[2023-07-28] MEDS: Levothyroxine Sodium 25 MCG TABLET PO (06:16)
[2023-07-28] MEDS: Omeprazole 20 MG CAPSULE.DR PO ×2 (06:16→15:56)
[2023-07-28 07:11] LABS: Glucose, Whole Blood 202 mg/dL (60-115)
[2023-07-28] MEDS: Tiotropium Bromide 2.5 mcg 1 PUFF/2.5 MCG MIST.INHAL INHALE (08:14)
[2023-07-28] MEDS: Albuterol/Iprat 2.5/0.5MG 3 ML AMPUL.NEB INHALE ×3 (08:14→14:39)
[2023-07-28 08:49] LABS: Anion Gap 11 (12-20); Blood Urea Nitrogen 20 mg/dL (9-16); Calcium 9.2 mg/dL (8.4-10.2); Carbon Dioxide 28 mmol/L (22-29); Chloride 104 mmol/L (96-108); Creatinine Clr Calc Pharmacy 55.1; Estimated Glomerular Filt Rate > 60; Glucose Random 169 mg/dL (60-115); Potassium 3.2 mmol/L (3.3-5.1); Sodium 140 mmol/L (135-145)
[2023-07-28 08:56] LABS: B Type Natriuretic Peptide 278 pg/mL (<100)
[2023-07-28] MEDS: Gabapentin 100 MG CAPSULE 200 MG PO ×3 (09:43→21:09)
[2023-07-28] MEDS: Acetaminophen 325 MG TABLET 650 MG PO ×2 (09:43→21:19)
[2023-07-28] MEDS: Furosemide 40 MG/4 ML VIAL IVPUSH ×2 (09:44→22:42)
[2023-07-28] MEDS: OLANZapine 5 MG TABLET PO (09:44)
[2023-07-28] MEDS: Montelukast Sodium 10 MG TABLET PO (09:44)
[2023-07-28] MEDS: Escitalopram Oxalate 20 MG TABLET PO (09:44)
[2023-07-28] MEDS: Doxycycline Monohydrate 100 MG CAPSULE PO ×2 (09:44→21:09)
[2023-07-28] MEDS: Spironolactone 25 MG TABLET 50 MG PO (09:44)
[2023-07-28] MEDS: predniSONE 20 MG TABLET PO (09:44)
[2023-07-28] MEDS: Metoprolol Tartrate 25 MG TABLET PO ×3 (09:44→21:09)
[2023-07-28] MEDS: rifAXIMin 550 MG TABLET PO ×2 (09:44→21:09)
[2023-07-28] MEDS: Cyanocobalamin (Vitamin B-12) 1,000 MCG TABLET 1000 MCG PO (09:44)
[2023-07-28] MEDS: Ferrous Sulfate 324 MG TABLET.DR PO ×2 (09:44→21:09)
[2023-07-28] MEDS: Atorvastatin Calcium 20 MG TABLET PO (09:44)
[2023-07-28] MEDS: Insulin Lispro 100 UNIT/ML 3 ML VIAL SUBCUT ×4 (09:45→21:10)
[2023-07-28] MEDS: Calcium + Vitamin D 250 MG TABLET PO (09:45)
[2023-07-28] MEDS: 0.9 % Sodium Chloride Flush 3 ML SYRINGE IVFLUSH ×3 (09:45→23:57)
[2023-07-28 11:13] LABS: Glucose, Whole Blood 225 mg/dL (60-115)
--- NOTE | 2023-07-28 11:30 | P.PNIM_ITS ---
Subjective Subjective Date of Service: 07/28/23 Interval History: chf excerebation,hypokalemia Review of Systems sob somewhat improving,has leg edema no fever or cough Physical Exam 2 Vital Signs: Vital Signs: Last Vital Signs Temp 96.9 F 07/28/23 11:09 Pulse 67 07/28/23 11:14 Resp 18 07/28/23 11:14 BP 130/58 L 07/28/23 11:09 Pulse Ox 95 07/28/23 11:09 O2 Del Method Nasal Cannula 07/28/23 11:09 O2 Flow Rate 2 07/28/23 11:09 BMI result Body Mass Index 36.0 Appearance: Alert.? Oriented X3.? cvs: rrr, [id number] , no murmur res: air entry seems diminshed ,has few rales /rhonchii abd: no rebound or guarding ,nt, bs present. ext pulses present , no cyanosisd. neuro: axo3 , nonfocal. Objective Data Active Medications Acetaminophen (Acetaminophen 325 Mg Tablet) 650 mg PO Q6H PRN PRN Reason: Pain, Moderate(Pain Scale 4-6) Last Admin: 07/28/23 09:43 Dose: 650 mg Documented By: MOSHE Albuterol Sulfate (Albuterol Sulfate (0.083%) 2.5 Mg/3 Ml Vial.Neb) 2.5 mg INHALE Q2H PRN PRN Reason: Wheezing Last Admin: 07/26/23 23:04 Dose: 2.5 mg Documented By: YAJAIRA Albuterol/Ipratropium (Albuterol/Iprat 2.5/0.5mg 3 Ml Ampul.Neb) 3 ml INHALE RQ4H WHILE AWAKE [facility] Last Admin: 07/28/23 11:14 Dose: 3 ml Documented By: ZE Atorvastatin Calcium (Atorvastatin Calcium 20 Mg Tablet) 20 mg PO DAILY [facility] Last Admin: 07/28/23 09:44 Dose: 20 mg Documented By: MOSHE Calcium Carbonate/Cholecalciferol (Calcium + Vitamin D 250 Mg Tablet) 250 mg PO DAILY [facility] Last Admin: 07/28/23 09:45 Dose: 250 mg Documented By: MOSHE Cyanocobalamin (Cyanocobalamin (Vitamin B-12) 1,000 Mcg Tablet) 1,000 mcg PO DAILY [facility] Last Admin: 07/28/23 09:44 Dose: 1,000 mcg Documented By: MOSHE Dextrose (Dextrose 50 % 25 Gm/50 Ml Syringe) 25 gm IVPUSH Q30M PRN PRN Reason: BG < 70 Doxycycline Monohydrate (Doxycycline Monohydrate 100 Mg Capsule) 100 mg PO Q12H [facility] Last Admin: 07/28/23 09:44 Dose: 100 mg Documented By: MOSHE Escitalopram Oxalate (Escitalopram Oxalate 20 Mg Tablet) 20 mg PO DAILY [facility] Last Admin: 07/28/23 09:44 Dose: 20 mg Documented By: MOSHE Ferrous Sulfate (Ferrous Sulfate 324 Mg Tablet.Dr) 324 mg PO BID [facility] Last Admin: 07/28/23 09:44 Dose: 324 mg Documented By: MOSHE Furosemide (Furosemide 40 Mg/4 Ml Vial) 40 mg IVPUSH Q12H [facility]; Protocol Last Admin: 07/28/23 09:44 Dose: 40 mg Documented By: MOSHE Gabapentin (Gabapentin 100 Mg Capsule) 200 mg PO TID [facility] Last Admin: 07/28/23 09:43 Dose: 200 mg Documented By: MOSHE Guaifenesin/Dextromethorphan (Guaifenesin Dm 200/20/10 Ml 10 Ml Syrup) 10 ml PO Q6H PRN PRN Reason: cough Last Admin: 07/27/23 08:25 Dose: 10 ml Documented By: MOSHE Hydroxyzine HCl (Hydroxyzine Hcl 25 Mg Tablet) 25 mg PO Q6H PRN PRN Reason: Anxiety Ceftriaxone Sodium 1 gm/ (Sodium Chloride) 50 mls @ 100 mls/hr IV Q24H [facility] Last Infusion: 07/27/23 12:40 Dose: Infused Documented By: MOSHE Insulin Glargine (Insulin Glargine,Hum.Rec.Anlog 100 Unit/Ml 10 Ml Vial) 40 unit SUBCUT BEDTIME [facility] Insulin Human Lispro (Insulin Lispro 100 Unit/Ml 3 Ml Vial) 0 unit SUBCUT QIDACHS [facility]; Protocol Last Admin: 07/28/23 09:45 Dose: 8 unit Documented By: MOSHE Lactulose (Lactulose 20 Gm/30 Ml Solution) 20 gm PO TID [facility] Last Admin: 07/28/23 09:44 Dose: Not Given Documented By: MOSHE Non-Admin Reason: loose stool Levothyroxine Sodium (Levothyroxine Sodium 25 Mcg Tablet) 25 mcg PO DAILY@0600 [facility] Last Admin: 07/28/23 06:16 Dose: 25 mcg Documented By: ANAYA Metoprolol Tartrate (Metoprolol Tartrate 25 Mg Tablet) 25 mg PO TID [facility]; Protocol Last Admin: 07/28/23 09:44 Dose: 25 mg Documented By: MOSHE Montelukast Sodium (Montelukast Sodium 10 Mg Tablet) 10 mg PO DAILY [facility] Last Admin: 07/28/23 09:44 Dose: 10 mg Documented By: MOSHE Olanzapine (Olanzapine 5 Mg Tablet) 5 mg PO DAILY [facility] Last Admin: 07/28/23 09:44 Dose: 5 mg Documented By: MOSHE Omeprazole (Omeprazole 20 Mg Capsule.Dr) 20 mg PO BID@0630,1630 [facility] Last Admin: 07/28/23 06:16 Dose: 20 mg Documented By: ANAYA Prednisone (Prednisone 20 Mg Tablet) 20 mg PO DAILY [facility] Last Admin: 07/28/23 09:44 Dose: 20 mg Documented By: MOSHE Rifaximin (Rifaximin 550 Mg Tablet) 550 mg PO BID [facility] Last Admin: 07/28/23 09:44 Dose: 550 mg Documented By: MOSHE Sodium Chloride (0.9 % Sodium Chloride Flush 3 Ml Syringe) 3 ml IVFLUSH QSHIFT [facility] Last Admin: 07/28/23 09:45 Dose: 3 ml Documented By: MOSHE Spironolactone (Spironolactone 25 Mg Tablet) 50 mg PO DAILY [facility]; Protocol Last Admin: 07/28/23 09:44 Dose: 50 mg Documented By: MOSHE Tiotropium Fisk (Tiotropium Fisk 2.5 Mcg 1 Puff/2.5 Mcg Mist.Inhal) 1 puff INHALE RDAILY [facility] Last Admin: 07/28/23 08:14 Dose: 1 puff Documented By: ZE Labs 07/26/23 06:43 07/28/23 08:11 Labs: Laboratory Results - last 24 hr 07/27/23 07/27/23 07/27/23 16:39 20:05 23:36 Anion Gap Estim Creat Clear Calc Estimated GFR POC Glucose 376 H* 369 H* 240 H Random Glucose Calcium B-Natriuretic Peptide 07/28/23 07/28/23 07/28/23 07:06 08:11 11:09 Anion Gap 11 L Estim Creat Clear Calc 55.1 Estimated GFR > 60 POC Glucose 202 H 225 H Random Glucose 169 H Calcium 9.2 B-Natriuretic Peptide 278 H Assessment and Plan (1) Congestive heart failure: Status: Acute Plan 72yo F with HCV cirrhosis, HF unknown EF, HTN, hypothyroidism, COPD/asthma, GERD, anemia of chronic disease, pancytopenia, chronic constipation, DM2, and depression admitted to ICU for sepsis due to pneumonia. Did not require pressors so stepped down to M/S today. new onset afib: Terry vacs score is 3-4 continue metorpolol . d/w gi and family -currently not considering AC( depend on morning a.m. labs, platelet count, HX of varices ,portal htn,patient also has history of liver cirrhosis, pancytopenia) in sinus rythem 07/26/23. Monitor on tele CHF exacerbation: Hfpef. Monitor i/o, daily weight patient still drinking 3-4 mugs of water plan: advised strongly cut down fluid intake. moniter i/o closely switched to 40 mg iv bid. cardiology will follow up. PNA - 07/21- ceftriaxone/azithro- >change to doxy 07/22- given prolonged QTc, follow BCx, RVP-negative. trend PCT QTc prolongation - repeat EKG improved to 447 ms. echo done: ef 65-70% acute lactic acidosis thought to be - due to cirrhosis COPD/asthma with acute exac sob improving P.o. steroids ,standing/prn nebs, Spiriva, Singulair hx hepatic encephalopathy - lactulose/rifaximin hypothyroidism - continue LT4 thrombocytopenia - due to sepsis + cirrhosis anemia - continue iron GERD - PPI HTN - spironolactone DM2 with hyperglycemia: Improving adjusted basal/bolus insulin adjusted. depression - escitalopram, olanzapine VTE ppx - d/c heparin given thrombocytopenia; use SCDs dispo - TBD ongoing inpatient hospitalization for the following reasons pneumonia : IV ABX, diabetes uncontrolled with hyperglycemia need monitor for fingersticks and adjustments of insulin, need tele monitoring and cardiac workup for new onset AFib. Quality Stroke Does the patient have a stroke diagnosis?: No VTE Prior VTE?: No VTE Risk Level:: Medical - moderate - high VTE Device Contraindication: N/A - Device Ordered VTE Drug Contraindication: N/A - Med Ordered
[2023-07-28] MEDS: Potassium Chloride Packet 20 MEQ PACKET 40 MEQ PO (11:53)
[2023-07-28 12:39] LABS: Procalcitonin 0.96 ng/mL
--- NOTE | 2023-07-28 13:18 | PM.PNCARD ---
Subjective Subjective Date of Service: 07/28/23 Interval history: Seen examined at bedside. Feeling much better. Physical Exam Vital Signs: Last Vital Signs Temp 96.9 F 07/28/23 11:09 Pulse 67 07/28/23 11:14 Resp 18 07/28/23 11:14 BP 130/58 L 07/28/23 11:09 Pulse Ox 95 07/28/23 11:09 O2 Del Method Nasal Cannula 07/28/23 11:09 O2 Flow Rate 2 07/28/23 11:09 BMI result Body Mass Index 36.0 GENERAL APPEARANCE: in no acute distress, pleasant. NECK: no carotid bruit, + jugular venous distention. SKIN: no suspicious lesions, warm and dry. HEART: no murmurs, regular rate and rhythm. LUNGS: Clear to auscultation ABDOMEN: soft, nontender. EXTREMITIES: No significant edema. PERIPHERAL PULSES: equal. NEUROLOGIC: No gross deficits, AAO X 3. Objective Labs and Meds 07/26/23 06:43 07/28/23 08:11 Lab results: Laboratory Results - last 24 hr 07/27/23 07/27/23 07/27/23 16:39 20:05 23:36 Sodium Potassium Chloride Carbon Dioxide Anion Gap BUN Creatinine Estim Creat Clear Calc Estimated GFR POC Glucose 376 H* 369 H* 240 H Random Glucose Calcium B-Natriuretic Peptide Procalcitonin 07/28/23 07/28/23 07/28/23 07:06 08:11 11:09 Sodium 140 Potassium 3.2 L Chloride 104 Carbon Dioxide 28 Anion Gap 11 L BUN 20 H Creatinine 0.86 Estim Creat Clear Calc 55.1 Estimated GFR > 60 POC Glucose 202 H 225 H Random Glucose 169 H Calcium 9.2 B-Natriuretic Peptide 278 H Procalcitonin 0.96 Progress Note: A&P Assessment and plan (1) Congestive heart failure: Status: Acute Plan Pleasant 72-year-old female who is presenting for pneumonia and was in the intensive care unit. She developed congestive heart failure afterwards. She has background history of cirrhosis. She also had paroxysmal atrial fibrillation. Currently not on anticoagulation due to previous GI bleed. She is on IV diuretics currently. I will continue the Lasix 40 mg IV b.i.d. today. Monitor electrolytes closely as potassium is low and she needs repletion. Also check magnesium make sure his more than 2. Thank you for allowing me to participate in the care of your patient. Please feel free to contact me if you have any questions. Time Spent With Patient Time: Total time managing care of this patient today ____ minutes. Progress Note: Quality Stroke Does the patient have a stroke diagnosis?: No Procedures Date of Service Date of Service: 07/28/23
[2023-07-28] MEDS: cefTRIAXone sodium 1 GM in 0.9 % Sodium Chloride 50 ML IV (14:04)
[2023-07-28 16:34] LABS: Glucose, Whole Blood 258 mg/dL (60-115)
--- NOTE | 2023-07-28 17:26 | PC.NURSE ---
8 beats of Vtach , Labs for potassium and magnesium ordered as per DR Avila
[2023-07-28 18:01] LABS: Potassium, Serum 4.5 mmol/L (3.3-5.1)
[2023-07-28 18:04] LABS: Magnesium 1.9 mg/dL (1.6-2.6)
[2023-07-28] MEDS: Magnesium Sulfate/D5W 1 GM/100 ML PIGGYBACK IV (19:31)
[2023-07-28 20:12] LABS: Glucose, Whole Blood 281 mg/dL (60-115)
[2023-07-28] MEDS: Insulin Glargine,Hum.rec.anlog 100 UNIT/ML 10 ML VIAL 40 UNIT SUBCUT (21:10)
[2023-07-29] VITALS (12 sets, daily range): BP systolic 110–128; BP diastolic 38–68; PULSE 57–68; RESP 16–20; TEMP 36–36.4; O2SAT 92–97; BMI 33.9
[2023-07-29] MEDS: Omeprazole 20 MG CAPSULE.DR PO ×2 (05:46→17:19)
[2023-07-29] MEDS: Levothyroxine Sodium 25 MCG TABLET PO (05:46)
[2023-07-29 07:55] LABS: Anion Gap 10 (12-20); Blood Urea Nitrogen 19 mg/dL (9-16); Calcium 8.8 mg/dL (8.4-10.2); Carbon Dioxide 26 mmol/L (22-29); Chloride 105 mmol/L (96-108); Creatinine Clr Calc Pharmacy 61.2; Estimated Glomerular Filt Rate > 60; Glucose Random 204 mg/dL (60-115); Sodium 137 mmol/L (135-145)
[2023-07-29 07:59] LABS: Glucose, Whole Blood 181 mg/dL (60-115)
[2023-07-29] MEDS: Insulin Lispro 100 UNIT/ML 3 ML VIAL SUBCUT ×4 (08:00→21:49)
[2023-07-29 08:02] LABS: B Type Natriuretic Peptide 239 pg/mL (<100)
[2023-07-29] MEDS: Tiotropium Bromide 2.5 mcg 1 PUFF/2.5 MCG MIST.INHAL INHALE (08:19)
[2023-07-29] MEDS: Albuterol/Iprat 2.5/0.5MG 3 ML AMPUL.NEB INHALE ×3 (08:19→15:10)
[2023-07-29] MEDS: Metoprolol Tartrate 25 MG TABLET PO ×3 (08:32→21:44)
[2023-07-29] MEDS: Montelukast Sodium 10 MG TABLET PO (08:32)
[2023-07-29] MEDS: Atorvastatin Calcium 20 MG TABLET PO (08:32)
[2023-07-29] MEDS: Gabapentin 100 MG CAPSULE 200 MG PO ×3 (08:32→21:43)
[2023-07-29] MEDS: rifAXIMin 550 MG TABLET PO ×2 (08:32→21:44)
[2023-07-29] MEDS: Escitalopram Oxalate 20 MG TABLET PO (08:32)
[2023-07-29] MEDS: Lactulose 20 GM/30 ML SOLUTION PO ×2 (08:32→14:08)
[2023-07-29] MEDS: Cyanocobalamin (Vitamin B-12) 1,000 MCG TABLET 1000 MCG PO (08:33)
[2023-07-29] MEDS: Ferrous Sulfate 324 MG TABLET.DR PO ×2 (08:33→21:44)
[2023-07-29] MEDS: OLANZapine 5 MG TABLET PO (08:33)
[2023-07-29] MEDS: Doxycycline Monohydrate 100 MG CAPSULE PO ×2 (08:33→21:44)
[2023-07-29] MEDS: predniSONE 20 MG TABLET PO (08:33)
[2023-07-29] MEDS: Spironolactone 25 MG TABLET 50 MG PO (08:33)
[2023-07-29] MEDS: 0.9 % Sodium Chloride Flush 3 ML SYRINGE IVFLUSH ×3 (08:33→21:45)
[2023-07-29] MEDS: Calcium + Vitamin D 250 MG TABLET PO (08:33)
[2023-07-29 08:45] LABS: Magnesium 2.1 mg/dL (1.6-2.6)
[2023-07-29 10:59] LABS: Glucose, Whole Blood 269 mg/dL (60-115)
[2023-07-29] MEDS: Furosemide 40 MG/4 ML VIAL IVPUSH (11:06)
--- NOTE | 2023-07-29 12:28 | P.PNCA_ITS ---
Subjective Subjective Date of Service: 07/29/23 Principal diagnosis: Paroxysmal atrial fibrillation, CHF. Interval history: Patient complains of cough productive of phlegm with reddish-brown color. Patient also complains of wheezing. She says her leg edema and fluid status has overall improved. Although appears like she is in positive balance. Not sure if these intake and output chart are accurate. She had 1 episode of nonsustained VT and 1 episode of paroxysmal atrial fibrillation. Review of Systems Constitutional: Reports no additional constitutional complaints Cardiovascular: Reports dyspnea Respiratory: Reports cough, Reports excessive phlegm production, Reports dyspnea and Reports wheezing Gastrointestinal: Reports no additional gastrointestinal complaints Reports system reviewed and no additional complaints, except as documented Allergic/Immunologic: Reports wheezing Physical Exam Vital Signs: Last Vital Signs Temp 97.6 F 07/29/23 11:05 Pulse 68 07/29/23 11:24 Resp 16 07/29/23 11:24 BP 110/51 L 07/29/23 11:05 Pulse Ox 97 07/29/23 11:05 O2 Del Method Room Air 07/29/23 11:05 O2 Flow Rate 1 07/29/23 03:34 BMI result Body Mass Index 33.9 Const General: cooperative, comfortable, alert and awake Nutritional Appearance: obese Orientation/consciousness: patient oriented x3 Neck Neck: Yes trachea midline, Yes supple and Yes no JVD Resp Effort & Inspection: normal respiratory effort Auscultation: wheezes scattered wheezes Cardio Jugular venous distension: no JVD Rate: regular rate Rhythm: regular rhythm Heart sounds: S1 normal heart sound present, S2 normal heart sound present, no click, no gallops and no murmurs GI Auscultation: normal bowel sounds Skin General skin exam: no rashes or lesions noted Neuro General: patient oriented x3 and no focal motor deficits Extrem General: Yes no clubbing, cyanosis or edema Objective Labs and Meds 07/26/23 06:43 07/29/23 07:11 Lab results: Laboratory Results - last 24 hr 07/28/23 07/28/23 07/28/23 08:11 16:29 17:40 Sodium Potassium Serum Potassium 4.5 Chloride Carbon Dioxide Anion Gap BUN Creatinine Estim Creat Clear Calc Estimated GFR POC Glucose 258 H Random Glucose Calcium Magnesium 1.9 B-Natriuretic Peptide Procalcitonin 0.96 07/28/23 07/29/23 07/29/23 20:07 07:11 07:47 Sodium 137 Potassium 4.0 D Serum Potassium Chloride 105 Carbon Dioxide 26 Anion Gap 10 L BUN 19 H Creatinine 0.75 Estim Creat Clear Calc 61.2 Estimated GFR > 60 POC Glucose 281 H 181 H Random Glucose 204 H Calcium 8.8 Magnesium 2.1 B-Natriuretic Peptide 239 H Procalcitonin 07/29/23 10:46 Sodium Potassium Serum Potassium Chloride Carbon Dioxide Anion Gap BUN Creatinine Estim Creat Clear Calc Estimated GFR POC Glucose 269 H Random Glucose Calcium Magnesium B-Natriuretic Peptide Procalcitonin Progress Note: A&P Assessment and plan (1) PAF (paroxysmal atrial fibrillation): Status: Acute Assessment and Plan: Patient with prior history of paroxysmal atrial fibrillation predominantly in sinus rhythm at this point time. Patient follows with a wirer passenger car in [place]. Continue pursue rhythm control approach. Currently not on oral anticoagulation due to patient/patient's daughter's choice as well as patient's underlying history of cirrhosis and anemia. Continue metoprolol therapy and can switch to Toprol XL 100 mg daily. (2) Congestive heart failure: Status: Acute Assessment and Plan: Patient presents with worsening shortness of breath with a combination of both heart failure as well as COPD exacerbation. Clinically with IV diuresis although intake and output chart superior to be inaccurate she looks euvolemic. Can switch to p.o. Lasix. Continue spironolactone therapy. Overall risk of recurrent hospitalization appears high. Continue management of her underlying bronchospastic airway disease aggressively. Will sign of the case at this point time. Thank you for allowing me to partake in her care Time Spent With Patient Time: Total time managing care of this patient today ____ minutes. Progress Note: Quality Stroke Does the patient have a stroke diagnosis?: No Procedures Date of Service Date of Service: 07/29/23
--- NOTE | 2023-07-29 14:07 | MHC.CM.PN ---
Pt DC plan is to return to [facility], however, she is requiring finger sticks and changing insulin dosages 4 times a day. The assisted living cannot assist with this and [facility] cannot visit even once a day to monitor blood sugars. CM to follow and assist to determine DC plan.
[2023-07-29] MEDS: cefTRIAXone sodium 1 GM in 0.9 % Sodium Chloride 50 ML IV (14:08)
--- NOTE | 2023-07-29 15:33 | P.PNIM_ITS ---
Subjective Subjective Date of Service: 07/29/23 Interval History: chf ,copd Review of Systems patient is sob which is improving ,no chest pain ,dry cough has led edema Physical Exam 2 Vital Signs: Vital Signs: Last Vital Signs Temp 97.6 F 07/29/23 11:05 Pulse 64 07/29/23 15:10 Resp 16 07/29/23 15:10 BP 121/60 07/29/23 14:00 Pulse Ox 97 07/29/23 11:05 O2 Del Method Room Air 07/29/23 11:05 O2 Flow Rate 1 07/29/23 03:34 BMI result Body Mass Index 33.9 Appearance: Alert.? Oriented X3.? cvs: rrr, [id number] , no murmur res: air entry seems diminshed ,has few rales /rhonchii abd: no rebound or guarding ,nt, bs present. ext pulses present , no cyanosisd. neuro: axo3 , nonfocal. Objective Data Active Medications Acetaminophen (Acetaminophen 325 Mg Tablet) 650 mg PO Q6H PRN PRN Reason: Pain, Moderate(Pain Scale 4-6) Last Admin: 07/28/23 21:19 Dose: 650 mg Documented By: YOAN Albuterol/Ipratropium (Albuterol/Iprat 2.5/0.5mg 3 Ml Ampul.Neb) 3 ml INHALE RQ4H WHILE AWAKE [facility] Last Admin: 07/29/23 15:10 Dose: 3 ml Documented By: ROBIN Atorvastatin Calcium (Atorvastatin Calcium 20 Mg Tablet) 20 mg PO DAILY [facility] Last Admin: 07/29/23 08:32 Dose: 20 mg Documented By: DARNELL Calcium Carbonate/Cholecalciferol (Calcium + Vitamin D 250 Mg Tablet) 250 mg PO DAILY [facility] Last Admin: 07/29/23 08:33 Dose: 250 mg Documented By: DARNELL Cyanocobalamin (Cyanocobalamin (Vitamin B-12) 1,000 Mcg Tablet) 1,000 mcg PO DAILY [facility] Last Admin: 07/29/23 08:33 Dose: 1,000 mcg Documented By: DARNELL Dextrose (Dextrose 50 % 25 Gm/50 Ml Syringe) 25 gm IVPUSH Q30M PRN PRN Reason: BG < 70 Doxycycline Monohydrate (Doxycycline Monohydrate 100 Mg Capsule) 100 mg PO Q12H [facility] Last Admin: 07/29/23 08:33 Dose: 100 mg Documented By: DARNELL Escitalopram Oxalate (Escitalopram Oxalate 20 Mg Tablet) 20 mg PO DAILY [facility] Last Admin: 07/29/23 08:32 Dose: 20 mg Documented By: DARNELL Ferrous Sulfate (Ferrous Sulfate 324 Mg Tablet.Dr) 324 mg PO BID [facility] Last Admin: 07/29/23 08:33 Dose: 324 mg Documented By: DARNELL Furosemide (Furosemide 40 Mg Tablet) 40 mg PO DAILY [facility]; Protocol Gabapentin (Gabapentin 100 Mg Capsule) 200 mg PO TID [facility] Last Admin: 07/29/23 14:08 Dose: 200 mg Documented By: DARNELL Guaifenesin/Dextromethorphan (Guaifenesin Dm 200/20/10 Ml 10 Ml Syrup) 10 ml PO Q6H PRN PRN Reason: cough Last Admin: 07/27/23 08:25 Dose: 10 ml Documented By: MOSHE Hydroxyzine HCl (Hydroxyzine Hcl 25 Mg Tablet) 25 mg PO Q6H PRN PRN Reason: Anxiety Ceftriaxone Sodium 1 gm/ (Sodium Chloride) 50 mls @ 100 mls/hr IV Q24H [facility] Last Infusion: 07/29/23 15:15 Dose: Infused Documented By: DARNELL Insulin Glargine (Insulin Glargine,Hum.Rec.Anlog 100 Unit/Ml 10 Ml Vial) 40 unit SUBCUT BEDTIME [facility] Last Admin: 07/28/23 21:10 Dose: 40 unit Documented By: YOAN Insulin Human Lispro (Insulin Lispro 100 Unit/Ml 3 Ml Vial) 0 unit SUBCUT QIDACHS [facility]; Protocol Last Admin: 07/29/23 11:06 Dose: 10 unit Documented By: DARNELL Lactulose (Lactulose 20 Gm/30 Ml Solution) 20 gm PO TID [facility] Last Admin: 07/29/23 14:08 Dose: 20 gm Documented By: DARNELL Levothyroxine Sodium (Levothyroxine Sodium 25 Mcg Tablet) 25 mcg PO DAILY@0600 [facility] Last Admin: 07/29/23 05:46 Dose: 25 mcg Documented By: SABRINA Metoprolol Tartrate (Metoprolol Tartrate 25 Mg Tablet) 25 mg PO TID [facility]; Protocol Last Admin: 07/29/23 14:08 Dose: 25 mg Documented By: DARNELL Montelukast Sodium (Montelukast Sodium 10 Mg Tablet) 10 mg PO DAILY [facility] Last Admin: 07/29/23 08:32 Dose: 10 mg Documented By: DARNELL Olanzapine (Olanzapine 5 Mg Tablet) 5 mg PO DAILY [facility] Last Admin: 07/29/23 08:33 Dose: 5 mg Documented By: DARNELL Omeprazole (Omeprazole 20 Mg Capsule.Dr) 20 mg PO BID@0630,1630 [facility] Last Admin: 07/29/23 05:46 Dose: 20 mg Documented By: SABRINA Prednisone (Prednisone 20 Mg Tablet) 20 mg PO DAILY [facility] Last Admin: 07/29/23 08:33 Dose: 20 mg Documented By: DARNELL Rifaximin (Rifaximin 550 Mg Tablet) 550 mg PO BID [facility] Last Admin: 07/29/23 08:32 Dose: 550 mg Documented By: DARNELL Sodium Chloride (0.9 % Sodium Chloride Flush 3 Ml Syringe) 3 ml IVFLUSH QSHIFT [facility] Last Admin: 07/29/23 08:33 Dose: 3 ml Documented By: DARNELL Spironolactone (Spironolactone 25 Mg Tablet) 50 mg PO DAILY [facility]; Protocol Last Admin: 07/29/23 08:33 Dose: 50 mg Documented By: DARNELL Tiotropium [place] (Tiotropium [place] 2.5 Mcg 1 Puff/2.5 Mcg Mist.Inhal) 1 puff INHALE RDAILY [facility] Last Admin: 07/29/23 08:19 Dose: 1 puff Documented By: ROBIN Labs 07/26/23 06:43 07/29/23 07:11 Labs: Laboratory Results - last 24 hr 07/28/23 07/28/23 07/28/23 16:29 17:40 20:07 Serum Potassium 4.5 Anion Gap Estim Creat Clear Calc Estimated GFR POC Glucose 258 H 281 H Random Glucose Calcium Magnesium 1.9 B-Natriuretic Peptide 07/29/23 07/29/23 07/29/23 07:11 07:47 10:46 Serum Potassium Anion Gap 10 L Estim Creat Clear Calc 61.2 Estimated GFR > 60 POC Glucose 181 H 269 H Random Glucose 204 H Calcium 8.8 Magnesium 2.1 B-Natriuretic Peptide 239 H Assessment and Plan (1) Congestive heart failure: Status: Acute Plan 72yo F with HCV cirrhosis, HF unknown EF, HTN, hypothyroidism, COPD/asthma, GERD, anemia of chronic disease, pancytopenia, chronic constipation, DM2, and depression admitted to ICU for sepsis due to pneumonia. Did not require pressors so stepped down to M/S today. new onset afib: Terry vacs score is 3-4 continue metorpolol . d/w gi and family -currently not considering AC( depend on morning a.m. labs, platelet count, HX of varices ,portal htn,patient also has history of liver cirrhosis, pancytopenia) in sinus rythem 07/26/23. Monitor on tele CHF exacerbation: Hfpef. Monitor i/o, daily weight patient still drinking 3-4 mugs of water plan: advised strongly cut down fluid intake. moniter i/o closely switched to 40 mg iv bid. cardiology will follow up. PNA - 07/21- ceftriaxone/azithro- >change to doxy 07/22- given prolonged QTc, follow BCx, RVP-negative. trend PCT QTc prolongation - repeat EKG improved to 447 ms. echo done: ef 65-70% acute lactic acidosis thought to be - due to cirrhosis COPD/asthma with acute exac sob improving P.o. steroids ,standing/prn nebs, Spiriva, Singulair hx hepatic encephalopathy - lactulose/rifaximin hypothyroidism - continue LT4 thrombocytopenia - due to sepsis + cirrhosis anemia - continue iron GERD - PPI HTN - spironolactone DM2 with hyperglycemia: Improving adjusted basal/bolus insulin adjusted. depression - escitalopram, olanzapine VTE ppx - d/c heparin given thrombocytopenia; use SCDs dispo - TBD ongoing inpatient hospitalization for the following reasons pneumonia : IV ABX, diabetes uncontrolled with hyperglycemia need monitor for fingersticks and adjustments of insulin, need tele monitoring and cardiac workup for new onset AFib. Quality Stroke Does the patient have a stroke diagnosis?: No VTE Prior VTE?: No VTE Risk Level:: Medical - moderate - high VTE Device Contraindication: N/A - Device Ordered VTE Drug Contraindication: N/A - Med Ordered
--- NOTE | 2023-07-29 15:45 | MHC.CM.PN ---
Copy of HCP and MOLST obtained from [facility], uploaded to electronic chart, added to paper chart, and 2 copies given to pt.
[2023-07-29 16:43] LABS: Glucose, Whole Blood 296 mg/dL (60-115)
[2023-07-29 20:42] LABS: Glucose, Whole Blood 272 mg/dL (60-115)
[2023-07-29] MEDS: guaiFENesin DM 200/20/10 ML 10 ML SYRUP PO (21:44)
[2023-07-29] MEDS: Insulin Glargine,Hum.rec.anlog 100 UNIT/ML 10 ML VIAL 40 UNIT SUBCUT (21:48)
[2023-07-29 23:36] LABS: CDiff Gene PCR NEGATIVE (Negative)
[2023-07-29] MEDS: Acetaminophen 325 MG TABLET 650 MG PO (23:54)
[2023-07-30 03:06] VITALS: BP 142/52; PULSE 63; RESP 20; TEMP 36.2; O2SAT 96
[2023-07-30] MEDS: Levothyroxine Sodium 25 MCG TABLET PO (06:16)
[2023-07-30] MEDS: Omeprazole 20 MG CAPSULE.DR PO ×2 (06:16→16:58)
[2023-07-30 06:22] VITALS: BMI 33.7
[2023-07-30 07:20] LABS: Glucose, Whole Blood 102 mg/dL (60-115)
[2023-07-30 07:48] VITALS: BP 91/60; PULSE 84; RESP 18; TEMP 36.6; O2SAT 94
[2023-07-30 08:12] VITALS: PULSE 84; RESP 18
[2023-07-30] MEDS: Tiotropium Bromide 2.5 mcg 1 PUFF/2.5 MCG MIST.INHAL INHALE (08:12)
[2023-07-30] MEDS: predniSONE 20 MG TABLET PO (08:28)
[2023-07-30] MEDS: Gabapentin 100 MG CAPSULE 200 MG PO ×2 (08:28→16:58)
[2023-07-30] MEDS: cefuroxime axetiL 500 MG TABLET PO (08:28)
[2023-07-30] MEDS: Ferrous Sulfate 324 MG TABLET.DR PO (08:28)
[2023-07-30] MEDS: Doxycycline Monohydrate 100 MG CAPSULE PO (08:29)
[2023-07-30] MEDS: Escitalopram Oxalate 20 MG TABLET PO (08:29)
[2023-07-30] MEDS: Cyanocobalamin (Vitamin B-12) 1,000 MCG TABLET 1000 MCG PO (08:29)
[2023-07-30] MEDS: Calcium + Vitamin D 250 MG TABLET PO (08:29)
[2023-07-30] MEDS: Atorvastatin Calcium 20 MG TABLET PO (08:29)
[2023-07-30] MEDS: OLANZapine 5 MG TABLET PO (08:29)
[2023-07-30] MEDS: rifAXIMin 550 MG TABLET PO (08:29)
[2023-07-30] MEDS: Montelukast Sodium 10 MG TABLET PO (08:29)
[2023-07-30 09:44] LABS: Adenovirus F 40/41 Not Detected (Not Detect.); Astrovirus Not Detected (Not Detect.); Campylobacter Not Detected (Not Detect.); Cryptosporidium Not Detected (Not Detect.); Cyclospora cayetanensis Not Detected (Not Detect.); E. coli EAEC Not Detected (Not Detect.); E. coli EPEC Not Detected (Not Detect.); E. coli ETEC Not Detected (Not Detect.); E. coli STEC Not Detected (Not Detect.); Entamoeba histolytica Not Detected (Not Detect.); Giardia lamblia Not Detected (Not Detect.); Norovirus GI/GII Not Detected (Not Detect.); Plesiomonas shigelloides Not Detected (Not Detect.); Rotavirus A Not Detected (Not Detect.); Salmonella Not Detected (Not Detect.); Sapovirus Not Detected (Not Detect.); Shigella sp./EIEC Not Detected (Not Detect.); Vibrio Not Detected (Not Detect.); Vibrio Cholerae Not Detected (Not Detect.); Yersinia enterocolitica Not Detected (Not Detect.)
--- NOTE | 2023-07-30 10:53 | HO.WOUND ---
Wound Consult: Initial 72yr old female admitted to [facility] on?07/21/23 16:28 - See progress notes and H&P for detailed history. Wound consult placed for Buttock and coccyx wound assessment - Pt agreeable to assessment and photo documentation. Pt reports incontinence at time - reports tenderness - pt educated on discontinuing brief use while in bed - pt refused removal - barrier cream education provided - pt demonstrates understanding. She reports she is set for d/c to home today. Intergluteal Etiology: MASD-IAD (Moisture Associated Skin Damage - Incontinence Associated Dermatitis ) Intertrigo Measurements: 6cm x 0.2cm x 0.1cm Wound Bed: Base of fold with linear partial thickness tissue loss and scattered mirrored partial thickness tissue loss noted - improving compared to photo review from direct care team yesterday Drainage / Odor: None Edges: ? Mirrored and linear Samantha wound: ? Hyperpigmentation noted - indicative of chronic moisture - No Induration, Fluctuance or Warmth noted Pain: tenderness reported when cleaning Goals of Treatment: ? Continue barrier cream application - off load pressure and discontinue brief use Recommendations: 1. Turn and Reposition every 2 hours and as needed for patient comfort. 2. Off Load all bony prominences with use of pillows and heel boots if needed.? Apply Preventative foams where needed. ? 3. Monitor for incontinence and moisture control, use barrier creams when needed for prevention and treatment. 4. Provide adequate and supplemental nutrition. 5. Order low air loss mattress. 6. Maintain blood glucose levels per Providers orders. 7. Intergluteal - Off Load Pressure - Cleanse with PH balance spray or wipes, pat dry. ?Apply thin layer of Barrier cream to intergluteal area - only pat and dab no scrub and rub when soiling occurs. Reapply thin layer PRN after each episode of incontinence. Discontinue brief use - only use when ambulating - use wicking dry flow pads. If brief is in use at home change once soiled to aid in skin protection. Re-consult wound care Nurse for wound deterioration or wound changes.
[2023-07-30 11:09] VITALS: BP 126/60; PULSE 59; RESP 18; TEMP 36.4; O2SAT 94
[2023-07-30 11:16] LABS: Glucose, Whole Blood 231 mg/dL (60-115)
[2023-07-30] MEDS: Insulin Lispro 100 UNIT/ML 3 ML VIAL SUBCUT ×2 (12:02→17:10)
[2023-07-30] MEDS: 0.9 % Sodium Chloride Flush 3 ML SYRINGE IVFLUSH (12:06)
--- NOTE | 2023-07-30 13:04 | MHC.CM.PN ---
Second IMM 07/30/23, Pt has been medically cleared for DC. She will resume using her Dexcom blood sugar monitor, and the unsulin pens, which she is used to. She will have home care services from [facility], for daily visits. She will return to [facility] via family transport.
--- NOTE | 2023-07-30 13:24 | P.PNIM_ITS ---
Subjective Subjective Date of Service: 07/30/23 Physical Exam 2 Vital Signs: Vital Signs: Last Vital Signs Temp 97.5 F 07/30/23 11:09 Pulse 59 07/30/23 11:09 Resp 18 07/30/23 11:09 BP 126/60 07/30/23 11:09 Pulse Ox 94 07/30/23 11:09 O2 Del Method Room Air 07/30/23 11:09 O2 Flow Rate 1 07/29/23 03:34 BMI result Body Mass Index 33.7 Objective Data Active Medications Acetaminophen (Acetaminophen 325 Mg Tablet) 650 mg PO Q6H PRN PRN Reason: Pain, Moderate(Pain Scale 4-6) Last Admin: 07/29/23 23:54 Dose: 650 mg Documented By: SABRINA Atorvastatin Calcium (Atorvastatin Calcium 20 Mg Tablet) 20 mg PO DAILY [facility] Last Admin: 07/30/23 08:29 Dose: 20 mg Documented By: JOSÉ Calcium Carbonate/Cholecalciferol (Calcium + Vitamin D 250 Mg Tablet) 250 mg PO DAILY [facility] Last Admin: 07/30/23 08:29 Dose: 250 mg Documented By: JOSÉ Cefuroxime Axetil (Cefuroxime Axetil 500 Mg Tablet) 500 mg PO BID [facility] Last Admin: 07/30/23 08:28 Dose: 500 mg Documented By: JOSÉ Cyanocobalamin (Cyanocobalamin (Vitamin B-12) 1,000 Mcg Tablet) 1,000 mcg PO DAILY [facility] Last Admin: 07/30/23 08:29 Dose: 1,000 mcg Documented By: JOSÉ Dextrose (Dextrose 50 % 25 Gm/50 Ml Syringe) 25 gm IVPUSH Q30M PRN PRN Reason: BG < 70 Doxycycline Monohydrate (Doxycycline Monohydrate 100 Mg Capsule) 100 mg PO Q12H [facility] Last Admin: 07/30/23 08:29 Dose: 100 mg Documented By: JOSÉ Escitalopram Oxalate (Escitalopram Oxalate 20 Mg Tablet) 20 mg PO DAILY [facility] Last Admin: 07/30/23 08:29 Dose: 20 mg Documented By: JOSÉ Ferrous Sulfate (Ferrous Sulfate 324 Mg Tablet.) 324 mg PO BID [facility] Last Admin: 07/30/23 08:28 Dose: 324 mg Documented By: JOSÉ Gabapentin (Gabapentin 100 Mg Capsule) 200 mg PO TID [facility] Last Admin: 07/30/23 08:28 Dose: 200 mg Documented By: JOSÉ Guaifenesin/Dextromethorphan (Guaifenesin Dm 200/20/10 Ml 10 Ml Syrup) 10 ml PO Q6H PRN PRN Reason: cough Last Admin: 07/29/23 21:44 Dose: 10 ml Documented By: MELINDA Hydroxyzine HCl (Hydroxyzine Hcl 25 Mg Tablet) 25 mg PO Q6H PRN PRN Reason: Anxiety Insulin Glargine (Insulin Glargine,Hum.Rec.Anlog 100 Unit/Ml 10 Ml Vial) 40 unit SUBCUT BEDTIME [facility] Last Admin: 07/29/23 21:48 Dose: 40 unit Documented By: MELINDA Insulin Human Lispro (Insulin Lispro 100 Unit/Ml 3 Ml Vial) 0 unit SUBCUT QIDACHS [facility]; Protocol Last Admin: 07/30/23 12:02 Dose: 8 unit Documented By: JOSÉ Levothyroxine Sodium (Levothyroxine Sodium 25 Mcg Tablet) 25 mcg PO DAILY@0600 [facility] Last Admin: 07/30/23 06:16 Dose: 25 mcg Documented By: SABRINA Montelukast Sodium (Montelukast Sodium 10 Mg Tablet) 10 mg PO DAILY [facility] Last Admin: 07/30/23 08:29 Dose: 10 mg Documented By: JOSÉ Olanzapine (Olanzapine 5 Mg Tablet) 5 mg PO DAILY [facility] Last Admin: 07/30/23 08:29 Dose: 5 mg Documented By: JOSÉ Omeprazole (Omeprazole 20 Mg Capsule.) 20 mg PO BID@0630,1630 [facility] Last Admin: 07/30/23 06:16 Dose: 20 mg Documented By: SABRINA Prednisone (Prednisone 20 Mg Tablet) 20 mg PO DAILY [facility] Last Admin: 07/30/23 08:28 Dose: 20 mg Documented By: JOSÉ Rifaximin (Rifaximin 550 Mg Tablet) 550 mg PO BID [facility] Last Admin: 07/30/23 08:29 Dose: 550 mg Documented By: JOSÉ Sodium Chloride (0.9 % Sodium Chloride Flush 3 Ml Syringe) [facility] Last Admin: 07/30/23 12:06 Dose: 3 ml Documented By: JOSÉ Tiotropium [place] (Tiotropium [place] 2.5 Mcg 1 Puff/2.5 Mcg Mist.Inhal) 1 puff INHALE RDAILY [facility] Last Admin: 07/30/23 08:12 Dose: 1 puff Documented By: ALBERTINA Labs 07/26/23 06:43 07/29/23 07:11 Labs: Laboratory Results - last 24 hr 07/29/23 07/29/23 07/29/23 16:24 20:38 21:30 POC Glucose 296 H 272 H Stl C. cayetanensis PCR Not Detected Stool Rotavirus A PCR Not Detected Stl Adenov F 40/41 PCR Not Detected Stool Astrovirus (PCR) Not Detected Stool Campylobacter PCR Not Detected Stool Cryptosporidium PCR Not Detected Stl Sh Tox Pr E STEC PCR Not Detected Stool E coli O157 PCR Not applicable Stl Enterotoxigenic E PCR Not Detected Stool EPEC (PCR) Not Detected Stool EAEC (PCR) Not Detected Stl E. histolytica PCR Not Detected Stool Giardia Lamblia PCR Not Detected Stl P. shigelloides PCR Not Detected Stool Salmonella PCR Not Detected Stool Sapovirus (PCR) Not Detected Stl Shigella/EIEC PCR Not Detected St Y.enterocolitica PCR Not Detected Stool Vibrio (PCR) Not Detected Stl Vibrio cholerae PCR Not Detected Stl Norovirus GI/GII PCR Not Detected C. difficile Tox B Gene NEGATIVE 07/30/23 07/30/23 07:15 11:08 POC Glucose 102 231 H Stl C. cayetanensis PCR Stool Rotavirus A PCR Stl Adenov F 40/41 PCR Stool Astrovirus (PCR) Stool Campylobacter PCR Stool Cryptosporidium PCR Stl Sh Tox Pr E STEC PCR Stool E coli O157 PCR Stl Enterotoxigenic E PCR Stool EPEC (PCR) Stool EAEC (PCR) Stl E. histolytica PCR Stool Giardia Lamblia PCR Stl P. shigelloides PCR Stool Salmonella PCR Stool Sapovirus (PCR) Stl Shigella/EIEC PCR St Y.enterocolitica PCR Stool Vibrio (PCR) Stl Vibrio cholerae PCR Stl Norovirus GI/GII PCR C. difficile Tox B Gene Quality Stroke Does the patient have a stroke diagnosis?: No VTE Prior VTE?: No VTE Risk Level:: Medical - moderate - high VTE Device Contraindication: N/A - Device Ordered VTE Drug Contraindication: N/A - Med Ordered
--- NOTE | 2023-07-30 13:25 | PM.DS ---
DS: Providers Provider Date of Service: 07/30/23 Date of admission: 07/21/23 16:28 Date of discharge: 07/30/23 Primary care physician: Júnior Kelly MD Consults: 07/23/23 16:39 Consult to Cardiology Routine Consulting Provider: [facility] [place] [facility] Reason for consultation: new onset afib Has provider been notified: No 07/29/23 18:36 Consult to Wound Care Routine Reason for consultation: maceration to buttocks and coccyx Attending physician on discharge: Italia Avila Discharging clinician: Italia Avila DS: Diagnosis Discharge Diagnosis (1) Congestive heart failure: Status: Acute DS: Summary Hospital Course Hospital Course: HPI: 72-year-old female with history of 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 asthma, GERD,anemia of chronic disease, pancytopenia, chronic constipation, insulin-dependent type 2 diabetes not compliant with medications, and depression who presented to the emergency room today with coughing, congestion, upper respiratory symptoms, shortness of breath, feeling weak and tired.? On arrival to the ER,? her BP was 126/65, heart rate 106, respiratory rate 29, satting 94% on room air.? She was febrile temp 103.8 F. Laboratory data significant for CO2 14,? glucose 419,? beta hydroxybutyrate 0.11, initial lactic acid 8.3,? T bili 2.2, D bili 1.0, AST 47, albumin? 2.8. VBG showed pH 7.25, pCO2 42, PO2 46, HC03 18, B.E. -7.8. UA was negative for UTI. ?Respiratory panel negative for influenza, RSV, COVID. Hospital course: 72yo F with HCV cirrhosis, HF unknown EF, HTN, hypothyroidism, COPD/asthma, GERD, anemia of chronic disease, pancytopenia, chronic constipation, DM2, and depression admitted to ICU for sepsis due to pneumonia. Did not require pressors so stepped down to M/S today. new onset afib:continue metorpolol . d/w gi and family -currently not considering AC( depend on morning a.m. labs, platelet count, HX of varices ,portal htn,patient also has history of liver cirrhosis, pancytopenia) now in sinus rythem . CHF exacerbation: Hfpef. switched to 40 mg daily cardiology will follow up outpatient.chf education given. If patient has 2 lb or more weight gain in 1 week need outpatient Lasix adjustment.. PNA: imrpoved ,blood culture neg,RVP-negative. complete ceftin 500 mg bid and doxycycline 100 mg po bid 2 more days. Repeat chest imaging to 3-4 weeks to see resolution of pneumonia. QTc prolongation initialy- repeat EKG improved qtc. echo done: ef 65-70% acute lactic acidosis thought to be - due to cirrhosis COPD/asthma with acute exac sob improved with iv steroids ,standing/prn nebs, Spiriva, Singulair: Switched to p.o. steroids prednisone 20 mg for 1 more day. thrombocytopenia- due to sepsis + cirrhosis HTN- spironolactone DM2 with hyperglycemia: Improving lantus adjusted to 40 units , diabetic Education given in detail, also considering multiple comorbidities and also diabetes management case management will arrange VNA. Patient is to follow-up with PCP, Cardiology, monitor CBC and BMP out patiently due to above-mentioned issues.consider outpatient Gi follow up for liver cirrosis /pancytopenia. Above management discussed with the patient in detail length with the help of shearer screen measurer and trimmer. Assessment and plan coordination time spent 50 minute Time Attestation Discharge coordination time: Greater than 30 minutes Quality: Safe Use of Opioids Does Pt have an Active Cancer Diagnosis on the Problem List?: No Quality: Stroke Does the patient have a stroke diagnosis?: No Physical Exam Vital Signs: Vital Signs: Last Vital Signs Temp 97.5 F 07/30/23 11:09 Pulse 59 07/30/23 11:09 Resp 18 07/30/23 11:09 BP 126/60 07/30/23 11:09 Pulse Ox 94 07/30/23 11:09 O2 Del Method Room Air 07/30/23 11:09 O2 Flow Rate 1 07/29/23 03:34 BMI result Body Mass Index 33.7 Appearance: Alert.? Oriented X3.? seems pleasant cvs: rrr, [id number] , no murmur res: air entry seems fair ,no rales or wheezing abd: no rebound or guarding ,nt, bs present. ext pulses present , no cyanosis. neuro: axo3 , nonfocal. DS: Data Data Completed and Pending Completed studies during hospitalization [Text1]: Procedures Transfusion of Nonautologous Red Blood Cells into Peripheral Vein, Percutaneous Approach (03/28/23) Labs on day of discharge: Laboratory Results - last 24 hr 07/29/23 07/29/23 07/29/23 16:24 20:38 21:30 POC Glucose 296 H 272 H Stl C. cayetanensis PCR Not Detected Stool Rotavirus A PCR Not Detected Stl Adenov F 40/41 PCR Not Detected Stool Astrovirus (PCR) Not Detected Stool Campylobacter PCR Not Detected Stool Cryptosporidium PCR Not Detected Stl Sh Tox Pr E STEC PCR Not Detected Stool E coli O157 PCR Not applicable Stl Enterotoxigenic E PCR Not Detected Stool EPEC (PCR) Not Detected Stool EAEC (PCR) Not Detected Stl E. histolytica PCR Not Detected Stool Giardia Lamblia PCR Not Detected Stl P. shigelloides PCR Not Detected Stool Salmonella PCR Not Detected Stool Sapovirus (PCR) Not Detected Stl Shigella/EIEC PCR Not Detected St Y.enterocolitica PCR Not Detected Stool Vibrio (PCR) Not Detected Stl Vibrio cholerae PCR Not Detected Stl Norovirus GI/GII PCR Not Detected C. difficile Tox B Gene NEGATIVE 07/30/23 07/30/23 07:15 11:08 POC Glucose 102 231 H Stl C. cayetanensis PCR Stool Rotavirus A PCR Stl Adenov F 40/41 PCR Stool Astrovirus (PCR) Stool Campylobacter PCR Stool Cryptosporidium PCR Stl Sh Tox Pr E STEC PCR Stool E coli O157 PCR Stl Enterotoxigenic E PCR Stool EPEC (PCR) Stool EAEC (PCR) Stl E. histolytica PCR Stool Giardia Lamblia PCR Stl P. shigelloides PCR Stool Salmonella PCR Stool Sapovirus (PCR) Stl Shigella/EIEC PCR St Y.enterocolitica PCR Stool Vibrio (PCR) Stl Vibrio cholerae PCR Stl Norovirus GI/GII PCR C. difficile Tox B Gene Imaging Chest x-ray: Radiologist's impression: ITS Impressions Chest X-Ray 07/21/23 14:28 IMPRESSION: Limited examination due to rotation. New right lower lung airspace disease without overt interstitial edema. Favor pneumonia. Stable to slightly increased small right effusion. Chest X-Ray 07/22/23 19:55 IMPRESSION: Patchy opacity right lower lobe likely airspace disease/edema with underlying effusion. Increased vascular markings with a prominent left pulmonary hilum similar previous study. Underlying lesion is not excluded. Consider CT chest after resolution of infiltrate. Chest X-Ray 07/25/23 09:31 IMPRESSION: Interval increase in size of now small to moderate right-sided pleural effusion. Chest X-Ray 07/29/23 12:53 IMPRESSION: 1. Small right pleural effusion with underlying atelectasis. 2. Patchy haziness in the right upper midlung and left lung base likely atelectasis or infiltrate, new. The upper lungs are clear. 3. No change from 07/25/2023. Discharge Plan Discharge Anticipated Discharge Date/Time: 07/30/23 13:01 Patient Disposition: Home Health Service Discharge Diagnosis: chf ,pneumonia ,copd execerebation Referrals: [facility] [Outside] - 1 Week Júnior Kelly MD [Primary Care Provider] - 1 Week Discharge Medications: New prednisone 20 mg Tablet 20 mg PO DAILY Qty: 1 0RF metoprolol succinate 50 mg tablet extended release 24 hr 50 mg PO DAILY Qty: 30 0RF doxycycline monohydrate 100 mg Capsule 100 mg PO Q12H Qty: 4 0RF cefuroxime axetil 500 mg Tablet 500 mg PO BID Qty: 4 0RF Continued furosemide 40 mg Tablet 40 mg PO DAILY 30 Days Qty: 30 0RF Protocol: Hold for SBP< HOLD for SBP < : 90 olanzapine 5 mg Tablet 5 mg PO DAILY 30 Days Qty: 30 0RF hydroxyzine HCl 25 mg Tablet 25 mg PO Q6H PRN (Reason: Anxiety) 30 Days Qty: 60 0RF lactulose 20 gram/30 mL Solution 20 g PO TID 30 Days Qty: 2700 0RF levothyroxine 25 mcg Tablet 25 mcg PO DAILY 30 Days Qty: 30 0RF insulin aspart U-100 [Novolog U-100 Insulin aspart] 100 unit/mL Solution 1 sliding scale dose SUBCUT TID Qty: 10 0RF pantoprazole 40 mg Tablet,Delayed Release (Dr/Ec) 40 mg PO BID 30 Days Qty: 60 0RF gabapentin 100 mg Capsule 200 mg PO TID 30 Days Qty: 180 0RF spironolactone 50 mg Tablet 50 mg PO DAILY 30 Days Qty: 30 0RF midodrine 10 mg Tablet 10 mg PO TID 30 Days Qty: 90 0RF Rx Instructions: do not give last dose of day after 6PM or within 4 hrs of bedtime escitalopram oxalate 20 mg Tablet 20 mg PO DAILY 30 Days Qty: 30 0RF rosuvastatin 5 mg Tablet 5 mg PO DAILY 30 Days Qty: 30 0RF trospium 60 mg Capsule,Extended Release 24hr 60 mg PO 1XD 30 Days Qty: 30 0RF Incruse Ellipta 62.5 mcg/actuation Blister With Device 1 inh INHALATION DAILY Qty: 30 0RF cyanocobalamin (vitamin B-12) 1,000 mcg tablet 1,000 mcg PO DAILY montelukast 10 mg tablet 10 mg PO DAILY potassium chloride 10 mEq capsule, extended release 10 meq PO DAILY calcium citrate-vitamin D3 315 mg-6.25 mcg (250 unit) tablet 1 tab PO DAILY Xifaxan 550 mg tablet 550 mg PO BID docusate sodium 100 mg capsule 100 mg PO BID PRN (Reason: Constipation) sennosides [Senna Lax] 8.6 mg tablet 8.6 mg PO BEDTIME PRN (Reason: Constipation) polyethylene glycol 3350 17 gram powder in packet 17 g PO BID PRN (Reason: Constipation) ferrous sulfate 325 mg (65 mg iron) tablet 325 mg PO BID Changed insulin glargine [Lantus Solostar U-100 Insulin] 100 unit/mL (3 mL) insulin pen 40 unit SUBCUT BEDTIME Qty: 15 0RF Discharge Orders: Discharge Order (Routine); Ordered 07/30/23 Ordered By: Italia Avila Diet: Advance to usual diet Activity on Discharge: As tolerated Stand Alone Forms: Patient Portal Discharge page Activity Restrictions/Additional Instructions: Topical Wound Care Recommentations - Intergluteal - Cleanse with PH balance cleanser and routine bathing, pat dry. ?Apply thin layer of Barrier cream to intergluteal area (Between buttocks) - only pat and dab no scrub and rub when soiling occurs. Reapply thin layer PRN after each episode of incontinence. Discontinue brief use - only use when ambulating - use wicking dry flow pads. If brief is in use at home change once soiled to aid in skin protection. Maintain blood glucose levels per Providers orders. Care Plan Goals: 72yo F with HCV cirrhosis, HF unknown EF, HTN, hypothyroidism, COPD/asthma, GERD, anemia of chronic disease, pancytopenia, chronic constipation, DM2, and depression admitted to ICU for sepsis due to pneumonia. Did not require pressors so stepped down to M/S today. new onset afib:continue metorpolol . d/w gi and family -currently not considering AC( depend on morning a.m. labs, platelet count, HX of varices ,portal htn,patient also has history of liver cirrhosis, pancytopenia) now in sinus rythem . CHF exacerbation: Hfpef. switched to 40 mg daily cardiology will follow up outpatient.chf education given. If patient has 2 lb or more weight gain in 1 week need outpatient Lasix adjustment.. PNA: imrpoved ,blood culture neg,RVP-negative. complete ceftin 500 mg bid and doxycycline 100 mg po bid 2 more days. Repeat chest imaging to 3-4 weeks to see resolution of pneumonia. QTc prolongation initialy- repeat EKG improved qtc. echo done: ef 65-70% acute lactic acidosis thought to be - due to cirrhosis COPD/asthma with acute exac sob improved with iv steroids ,standing/prn nebs, Spiriva, Singulair: Switched to p.o. steroids prednisone 20 mg for 1 more day. thrombocytopenia- due to sepsis + cirrhosis HTN- spironolactone DM2 with hyperglycemia: Improving lantus adjusted to 40 units , diabetic Education given in detail, also considering multiple comorbidities and also diabetes management case management will arrange VNA. Patient is to follow-up with PCP, Cardiology, monitor CBC and BMP out patiently due to above mentioned issues.consider outpatient Gi follow up for liver cirrosis /pancytopenia. Above management discussed with the patient in detail length with the help of shearer screen measurer and trimmer. Health Concerns: As above. Plan of Treatment: as above Assessment: as above. Patient Instructions: Heart Failure (DC), Pneumonia (DC)
--- NOTE | 2023-07-30 13:33 | W.MHC.F2F ---
Service Date Service Date: 07/30/23 Encounter Date of encounter: 07/30/23 Encounter: CHF, COPD, pneumonia. Reasons for Services Signs and symptoms assessed: Shortness of breath or fever or chest pain or new symptoms Reason for correction: medication management, medication treatment, teach disease management and other (soraida CARTY) MD Overseeing Care: Júnior Kelly Homebound: Leaving the home is medically contraindicated at this time without the asist of a device and/or another person due th the listed conditions above and below. Reason homebound: weakness related to hospital stay Homebound supporting statement: Patient has multiple comorbidities including CHF, COPD, diabetes with fluctuating fingersticks, pneumonia also week post hospitalization stay: Need help with lab draws, PT, appointments. Certification: Based on the above findings, I certify that this patient is confined to the home and needs intermittent correction care, physical therapy and/or speech therapy, or continues to need occupational therapy. The patient is under my care, and I have initiated the establishment of the plan of care. The patient will be followed by a physician who will periodically review the plan of care. Time Spent With Patient Time: Total time managing care of this patient today ____ minutes.
[2023-07-30 15:16] VITALS: BP 121/49; PULSE 63; RESP 24; TEMP 36.6; O2SAT 93
[2023-07-30 16:53] LABS: Glucose, Whole Blood 328 mg/dL (60-115)
== END 2023-07-30 17:30 | disposition home health service (06) | DRG 871 ==
LOC: HO.ED 15:42 → HO.EDOVER 16:39 → HO.ICU 17:59 → HO.S3 07-22 12:33 → HO.IMC 07-25 13:43
PROVIDERS: Family Medicine; Nurse Practitioner Family; Admitting Provider Internal Medicine Pulmonary Disease; Emergency Provider Emergency Medicine Emergency Medical Services; PCP Internal Medicine; Visit Provider Internal Medicine
DX: A41.9 Sepsis, unspecified organism (principal); I50.33 Acute on chronic diastolic (congestive) heart failure; J18.9 Pneumonia, unspecified organism; J44.0 Chronic obstructive pulmonary disease with (acute) lower respiratory infection; D62 Acute posthemorrhagic anemia; D61.818 Other pancytopenia; J45.901 Unspecified asthma with (acute) exacerbation; E87.21 Acute metabolic acidosis; D63.8 Anemia in other chronic diseases classified elsewhere; E03.9 Hypothyroidism, unspecified; I11.0 Hypertensive heart disease with heart failure; K76.82 Hepatic encephalopathy; K59.09 Other constipation; I49.1 Atrial premature depolarization; E11.65 Type 2 diabetes mellitus with hyperglycemia; K74.69 Other cirrhosis of liver; I48.0 Paroxysmal atrial fibrillation; I34.0 Nonrheumatic mitral (valve) insufficiency; R94.31 Abnormal electrocardiogram [ECG] [EKG]; F41.9 Anxiety disorder, unspecified; F32.A Depression, unspecified; E66.09 Other obesity due to excess calories; Z68.33 Body mass index [BMI] 33.0-33.9, adult; Z20.822 Contact with and (suspected) exposure to COVID-19; Z28.310 Unvaccinated for COVID-19; Z91.148 Patient's other noncompliance with medication regimen for other reason; Z88.0 Allergy status to penicillin; Z79.4 Long term (current) use of insulin; Z79.890 Hormone replacement therapy; Z79.899 Other long term (current) drug therapy
CPT/HCPCS: 0241U; 36415; 36600; 71045; 80048; 80076; 81001; 82010; 82040; 82803; 82947; 83036; 83605; 83735; 83880; 84100; 84132; 84145; 84443; 84484; 85007; 85014; 85018; 85025; 85027; 85049; 85610; 87040; 87493; 87507; 87633; 93005; 93306; 94640; 97161; 99285; C1758; J0456; J0696; J1644; J1650; J1885; J1940; J2405; J2920; J2930; J3475; P9047; Q9957

== ENCOUNTER → 2023-07-21 13:10 | Outpatient (BNV) | payer OTHER, SELFPAY | PROVIDERS: Admitting Provider Internal Medicine Pulmonary Disease; Emergency Provider Emergency Medicine Emergency Medical Services; PCP Internal Medicine; Visit Provider Internal Medicine Cardiovascular Disease | DX: I45.81 Long QT syndrome (principal) | CPT/HCPCS: 93010 ==

== ENCOUNTER 2023-07-21 16:28 | Outpatient (BNV) | payer OTHER, SELFPAY | END 2023-07-25 12:43 | PROVIDERS: Admitting Provider Internal Medicine Pulmonary Disease; Emergency Provider Emergency Medicine Emergency Medical Services; PCP Internal Medicine; Visit Provider Internal Medicine Cardiovascular Disease | DX: I48.0 Paroxysmal atrial fibrillation (principal); R94.31 Abnormal electrocardiogram [ECG] [EKG] | CPT/HCPCS: 93010 ==

== ENCOUNTER 2023-07-21 16:28 | Outpatient (BNV) | payer OTHER, SELFPAY | END 2023-07-22 16:47 | PROVIDERS: Admitting Provider Internal Medicine Pulmonary Disease; Emergency Provider Emergency Medicine Emergency Medical Services; PCP Internal Medicine; Visit Provider Internal Medicine Cardiovascular Disease | DX: I45.81 Long QT syndrome (principal) | CPT/HCPCS: 93010 ==

== ENCOUNTER 2023-07-21 16:28 | Outpatient (BNV) | payer OTHER, SELFPAY | END 2023-07-24 07:00 | PROVIDERS: Admitting Provider Internal Medicine Pulmonary Disease; Emergency Provider Emergency Medicine Emergency Medical Services; PCP Internal Medicine; Visit Provider Internal Medicine Cardiovascular Disease | DX: I34.0 Nonrheumatic mitral (valve) insufficiency (principal); I34.81 Nonrheumatic mitral (valve) annulus calcification; I48.91 Unspecified atrial fibrillation | CPT/HCPCS: 93010; 93306 ==

== ENCOUNTER 2023-07-21 16:28 | Outpatient (BNV) | payer OTHER, SELFPAY | END 2023-07-27 16:08 | PROVIDERS: Admitting Provider Internal Medicine Pulmonary Disease; Emergency Provider Emergency Medicine Emergency Medical Services; PCP Internal Medicine; Visit Provider Internal Medicine Cardiovascular Disease | DX: I48.0 Paroxysmal atrial fibrillation (principal); R94.31 Abnormal electrocardiogram [ECG] [EKG] | CPT/HCPCS: 93010 ==

== ENCOUNTER → 2023-07-21 16:28 | Outpatient (BNV) | payer OTHER, SELFPAY | PROVIDERS: Admitting Provider Internal Medicine Pulmonary Disease; Emergency Provider Emergency Medicine Emergency Medical Services; PCP Internal Medicine; Visit Provider Family Medicine | DX: I50.9 Heart failure, unspecified (principal) | CPT/HCPCS: 99232; 99239; 99499; G0180 ==

== ENCOUNTER → 2023-07-21 16:28 | Outpatient (BNV) | payer OTHER, SELFPAY | PROVIDERS: Admitting Provider Internal Medicine Pulmonary Disease; Emergency Provider Emergency Medicine Emergency Medical Services; PCP Internal Medicine; Visit Provider Internal Medicine Pulmonary Disease | DX: J18.9 Pneumonia, unspecified organism (principal); B18.2 Chronic viral hepatitis C; J44.9 Chronic obstructive pulmonary disease, unspecified; K74.60 Unspecified cirrhosis of liver; E11.9 Type 2 diabetes mellitus without complications | CPT/HCPCS: 99232 ==

== ENCOUNTER → 2023-07-21 16:28 | Outpatient (BNV) | payer OTHER, SELFPAY | PROVIDERS: Admitting Provider Internal Medicine Pulmonary Disease; Emergency Provider Emergency Medicine Emergency Medical Services; PCP Internal Medicine; Visit Provider Nurse Practitioner Family | DX: A41.9 Sepsis, unspecified organism (principal); J18.9 Pneumonia, unspecified organism; J45.909 Unspecified asthma, uncomplicated; F41.9 Anxiety disorder, unspecified; D63.8 Anemia in other chronic diseases classified elsewhere | CPT/HCPCS: 99291 ==

== ENCOUNTER → 2023-07-21 16:28 | Outpatient (BNV) | payer OTHER, SELFPAY | PROVIDERS: Admitting Provider Internal Medicine Pulmonary Disease; Emergency Provider Emergency Medicine Emergency Medical Services; PCP Internal Medicine; Visit Provider Internal Medicine Cardiovascular Disease | DX: I48.0 Paroxysmal atrial fibrillation (principal); I50.9 Heart failure, unspecified | CPT/HCPCS: 99222; 99232; 99233 ==

== ENCOUNTER 2023-08-22 17:26 | Outpatient (REF) | payer OTHER, SELFPAY ==
--- NOTE | ~2023-08-22 | XR_ITS ---
EXAMINATION: XR CHEST CLINICAL INFORMATION: Follow right upper lobe pneumonia. COMPARISON: Chest radiograph 07/29/2023. TECHNIQUE: 2 views of the chest were obtained. FINDINGS: Stable prominence of the cardiomediastinal silhouette. Previously described focal airspace opacities in the right upper lobe are decreased but not entirely resolved. There is increased central peribronchial thickening as well as increased diffuse interstitial coarsening. No pleural effusion. No pneumothorax. Thoracic spondylosis. Decreased bone mineralization. No acute osseous findings. XR/XR chest 2V IMPRESSION: 1. Improved but not entirely resolved focal airspace opacities in the right upper lobe. Recommend close attention on follow-up and if persistent, then further characterization with CT chest. 2. Increased interstitial opacities more noticeable in the central lungs. These findings are nonspecific and could be seen in the setting of acute lung injury such as an atypical infectious/inflammatory process as well as some degree of pulmonary edema. Recommend close attention on follow-up.
== END 2023-08-22 17:27 | disposition home or self-care (01) ==
LOC: HO.XRAY 17:26
PROVIDERS: PCP Internal Medicine; Visit Provider Nurse Practitioner Family
DX: J18.9 Pneumonia, unspecified organism (principal)
CPT/HCPCS: 71046

== ENCOUNTER 2023-08-30 19:34 | Emergency (ER) | payer OTHER, SELFPAY ==
--- NOTE | 2023-08-30 | ECG_ITS ---
Test Reason : DIZZINESS Blood Pressure : / mmHG Vent. Rate : 069 BPM Atrial Rate : 069 BPM P-R Int : 124 ms QRS Dur : 084 ms QT Int : 480 ms P-R-T Axes : 054 036 062 degrees QTc Int : 514 ms Normal sinus rhythm cannot exclude old anteroseptal infarct Prolonged QT Abnormal ECG When compared with ECG of 27-JUL-2023 16:08, No significant changes seen Referred By: Porsche Crews Electronically Signed By:RIGOBERTO NEWTON
--- NOTE | ~2023-08-30 | XR_ITS ---
EXAMINATION: XR CHEST CLINICAL INFORMATION: Dizziness. COMPARISON: Prior chest radiographs, most recently 08/22/2023. TECHNIQUE: Frontal view of the chest was obtained. FINDINGS: There is stable cardiomegaly. There is atherosclerotic calcification of the aortic knob. There is mild patchy airspace disease at the right base. No pleural effusion or pneumothorax is seen. There is no acute osseous abnormality. XR/XR chest 1V IMPRESSION: 1. There is mild patchy airspace disease at the right base, suspicious for early pneumonia. Recommend short-term follow-up chest radiographs to ensure clearance and exclude the possibility of underlying obstructive process. 2. There is cardiomegaly, without congestive heart failure.
--- NOTE | ~2023-08-30 | CT_ITS ---
EXAMINATION: CT brain and CT cervical spine without contrast. CLINICAL INDICATIONS: Fall. Seizure. COMPARISON: None. TECHNIQUE: 5 mm thin axial and reformatted 2 mm thin sagittal and coronal images of brain were obtained. DLP 809. Subsequently axial 3 mm thin and reformatted 2 mm thin images of cervical spine were obtained. DLP 364. This CT examination was performed using dose optimization technique as appropriate, variously including the following: Automated exposure control Adjustment of MA and/or KV according to patient size(this includes techniques or standardized protocols for targeted exams where dose is matched to indication/reason for exam; extremities or head. Use of iterative reconstruction techniques. FINDINGS: Brain: There is no acute intra-axial, extra-axial bleed, masses or midline shift. There is no acute infarction in evolution. There is no edema. The garcía to white matter differentiation is maintained normal. The lateral ventricles are symmetrical in size and configuration without enlargement. Bone windows reveal no calvarial abnormality. There is no scalp soft tissue abnormality. Cervical spine: On sagittal reconstructed images there is straightening of cervical lordosis. The vertebral heights, alignment and disc heights are normal. The craniovertebral junction and the C1-C2 alignment is normal. No visible acute fracture, dislocation or subluxation seen. The prevertebral and paravertebral soft tissues are normal. There is a patchy ill-defined density right upper lobe axial image 60/25. There is small right pleural effusion. The airway is widely patent. The prevertebral and paravertebral soft tissues are normal. Thyroid lobes are symmetrical. CT/CT cervical spine wo IV con IMPRESSION: 1. No acute intracranial process seen. 2. There is no acute fracture, dislocation or subluxation in cervical spine. Right upper lobe ill-defined nodule with small right pleural effusion.
--- NOTE | ~2023-08-30 | CT_ITS ---
EXAMINATION: CT chest, abdomen and pelvis with IV contrast. CLINICAL INDICATIONS: Right lower lobe pneumonia. COMPARISON: Chest x-ray 08/30/2023. TECHNIQUE: 5 mm thin axial and reformatted 3 mm thin sagittal and coronal images of chest, abdomen and pelvis were obtained following IV 100 mL Omnipaque 350. DLP 1343. This CT examination was performed using dose optimization technique as appropriate, variously including the following: Automated exposure control Adjustment of MA and/or KV according to patient size(this includes techniques or standardized protocols for targeted exams where dose is matched to indication/reason for exam; extremities or head. Use of iterative reconstruction techniques. FINDINGS: CHEST: LUNGS: The lungs are Limited evaluation secondary to breathing artifact. There is bandlike atelectatic changes in both upper lobes. In addition there is ill-defined patchy peripheral patchy opacity image 20/15 in the right upper lobe, right lower lobe image 36/5. Mediastinum: Heart size enlarged. Thoracic aorta is of normal caliber. No pericardial effusion seen. There is no abnormal mediastinal lymph nodes or mass. The central trachea and the bronchi widely patent. Thyroid lobes are symmetric and normal. Pleura: There is a small right pleural effusion layering from lung apex to the base. No calcified pleural plaque seen. Axilla: Small shotty lymph nodes are seen in bilateral axilla. The chest wall is unremarkable. Osseous structures: There is mild deformity of anterior sternum with callus formation on sagittal image 40/34 question fracture of indeterminate age. Blood likely old. Mild loss of C4 vertebral height is seen. The rest of the vertebral heights are normal. Abdomen and pelvis: Liver, ducts and gallbladder: The liver is small with lobulated surface consistent with cirrhosis.. 2.8 cm lesion right hepatic lobe measuring 44 Hounsfield units not a simple cyst. There is a second lesion in the central right hepatic lobe, ill-defined on axial image 15/6. There is no intrahepatic ductal dilatation seen. There is however a portable hepatic vein stent shunt. The gallbladder has been surgically removed. No CBD dilation seen. Spleen: The spleen is enlarged measuring 14 cm. The splenic vein and the portal vein not dilated. Pancreas: Unremarkable. Adrenal glands: Unremarkable. Kidneys: Both kidneys are normal size, shape and position. No radiopaque calculi or hydronephrosis seen. Lymphovascular structures: The abdominal aorta is normal caliber. No abnormal size retroperitoneal lymph nodes or mass seen. GI tract: There is moderate stool seen in the colon without distention. The small bowel loops are normal caliber. Appendix is not visualized. No free air or free fluid. Abdominal wall: Postsurgical scarring is seen in left mid to lower abdominal wall. No evidence of hernia. Pelvis: The bladder is mildly distended. The uterus is anteverted. No adnexal mass or free fluid. Osseous structures: There is no aggressive lytic or sclerotic process seen. There is vacuum disc phenomena at L5-S1 disc level. CT/CT abdomen pelvis w IV con IMPRESSION: 1. Small right pleural effusion. There is bandlike atelectatic changes in both upper lobes. There are ill-defined peripheral patchy opacities in the right upper lobe and right lower lobe. Question inflammatory or infectious etiology. 2. No abnormal mediastinal or axillary lymphadenopathy seen. 3. Cirrhotic liver with a portal to hepatic vein stent/shunt. There is a 2.8 cm lesion in the right hepatic lobe not a simple cyst. There is a second lesion in the central right hepatic lobe. Recommend MRI abdomen with and without contrast. 4. Mild constipation without obstruction. 5. Postsurgical scarring left mid to lower abdominal wall. 6. Distended urinary bladder
[2023-08-30 19:51] VITALS: BP 130/70; BP 144/39; PULSE 68; PULSE 80; RESP 20; TEMP 36.8; O2SAT 97; O2SAT 98; BMI 30.7
--- NOTE | 2023-08-30 20:08 | ED_ITS ---
HPI - General Adult General Chief complaint: Fall Stated complaint: FALL Time Seen by Provider: 08/30/23 19:39 History of Present Illness HPI narrative: 72 y/o F patient; PMH HCV cirrhosis, HF, HTN, hypothyroidism, COPD/asthma, GERD, anemia of chronic disease, T2DM, depression, recent pneumonia 07/2023; presents from home via EMS with report of multiple unwitnessed falls today. The patient primarily complains of LLQ abdominal pain and cervical neck pain. She denies head trauma or LOC. She denies: nausea/vomiting, diarrhea, chest pain, SOB, cough/congestion. Related Data Home Medications Medication Instructions Recorded Confirmed calcium citrate 315 mg 1 tab PO DAILY 07/21/23 07/21/23 calcium-vitamin D3 6.25 mcg (250 unit) tablet cyanocobalamin (vitamin B-12) 1,000 mcg PO DAILY 07/21/23 07/21/23 1,000 mcg tablet docusate sodium 100 mg capsule 100 mg PO BID PRN Constipation 07/21/23 07/21/23 ferrous sulfate 325 mg (65 mg 325 mg PO BID 07/21/23 07/21/23 iron) tablet montelukast 10 mg tablet 10 mg PO DAILY 07/21/23 07/21/23 polyethylene glycol 3350 17 gram 17 g PO BID PRN Constipation 07/21/23 07/21/23 oral powder packet potassium chloride 10 mEq 10 meq PO DAILY 07/21/23 07/21/23 capsule,extended release rifaximin 550 mg tablet (Xifaxan) 550 mg PO BID 07/21/23 07/21/23 sennosides 8.6 mg tablet (Senna 8.6 mg PO BEDTIME PRN Constipation 07/21/23 07/21/23 Lax) Previous Rx's Medication Instructions Recorded escitalopram oxalate 20 mg tablet 20 mg PO DAILY 30 days #30 tabs 03/25/23 furosemide 40 mg tablet 40 mg PO DAILY 30 days #30 tabs 03/25/23 gabapentin 100 mg capsule 200 mg (2 x 100 mg) PO TID 30 days 03/25/23 #180 caps hydroxyzine HCl 25 mg tablet 25 mg PO Q6H PRN Anxiety 30 days 03/25/23 #60 tabs insulin aspart U-100 100 unit/mL 1 sliding scale dose subcut TID 03/25/23 subcutaneous solution (Novolog #10 mL U-100 Insulin aspart) lactulose 20 gram/30 mL oral 20 g (30 mL) PO TID 30 days #2,700 03/25/23 solution mL levothyroxine 25 mcg tablet 25 mcg PO DAILY 30 days #30 tabs 03/25/23 midodrine 10 mg tablet 10 mg PO TID 30 days #90 tabs 03/25/23 olanzapine 5 mg tablet 5 mg PO DAILY 30 days #30 tabs 03/25/23 pantoprazole 40 mg tablet,delayed 40 mg PO BID 30 days #60 tabs 03/25/23 release rosuvastatin 5 mg tablet 5 mg PO DAILY 30 days #30 tabs 03/25/23 spironolactone 50 mg tablet 50 mg PO DAILY 30 days #30 tabs 03/25/23 trospium 60 mg capsule,extended 60 mg PO 1XD 30 days #30 caps 03/25/23 release 24 hr umeclidinium 62.5 mcg/actuation 1 inh inhalation DAILY #30 ea 03/25/23 blister powder for inhalation (Incruse Ellipta) cefuroxime axetil 500 mg tablet 500 mg PO BID #4 tabs 07/30/23 doxycycline monohydrate 100 mg 100 mg PO Q12H #4 caps 07/30/23 capsule insulin glargine 100 unit/mL (3 40 unit (0.4 mL) subcut BEDTIME 07/30/23 mL) subcutaneous pen (Lantus #15 mL Solostar U-100 Insulin) metoprolol succinate 50 mg 50 mg PO DAILY #30 tabs 07/30/23 tablet,extended release 24 hr prednisone 20 mg tablet 20 mg PO DAILY #1 tab 07/30/23 Allergies Allergy/AdvReac Type Severity Reaction Status Date / Time aspirin Allergy Unknown Verified 07/21/23 12:59 bee pollen [bee stings] Allergy Unknown Verified 07/21/23 12:59 Penicillins Allergy Unknown Verified 07/21/23 12:59 Review of Systems 2 Review of Systems: Yes all other systems are reviewed and are negative PMFSH Past Medical History Attestation statement: The following information was validated with the patient. 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) Asthma (08/30/21) Arthritis Anxiety and depression Anemia of chronic disease Congestive heart failure Depression Type 2 diabetes mellitus Chronic constipation GERD (gastroesophageal reflux disease) Asthma-COPD overlap syndrome Hypothyroidism History of hepatitis C Hepatic cirrhosis Hypertension Social History Social History Household Members: None Household Members Other:: two daughters, two grandchildren and son-in-law Housing: Other Housing Other:: Multifamily Do you presently have visiting nurse or other home services: No Patient Tobacco Use Status: Never used Tobacco Tobacco use type: Cigarette Smoked in Last 30 Days: No Second Hand Smoke Exposure: No Use of substances other than those prescribed or required for medical reasons: No Substance Use Type: Crack/Cocaine and Marijuana Advance Directives: Yes Advance Directives on File: Yes Advance Directives Date on File: 07/31/23 service: No Sexual orientation: Straight/Heterosexual Physical Exam ED Vital Signs: Vital Signs - 24 hr 08/30/23 19:51 08/30/23 20:17 08/30/23 21:20 Temperature 98.3 F 98.3 F Pulse Rate 68 67 Pulse Rate [Monitor] 67 Respiratory Rate 20 16 Blood Pressure 144/39 H 132/55 L Pulse Oximetry 97 97 Oxygen Delivery Method Room Air Room Air BMI result Body Mass Index 30.7 Patient is afebrile and hemodynamically stable. Const General: cooperative HENMT Head: Yes atraumatic Ears: TM's normal bilaterally Eyes General: appearance normal, both eyes and all related structures Neck Other: Mild left paraspinal tenderness without central bony tenderness, step-off, or crepitus Neck: Yes full ROM and Yes supple Chest Chest palpation & inspection: normal inspection of the chest and normal palpation of entire chest wall Resp Effort & Inspection: normal respiratory effort, able to speak in complete sentences and no respiratory distress Auscultation: clear to auscultation bilaterally Cardio Rate: regular rate Rhythm: regular rhythm Peripheral pulses: Peripheral pulses 2+ throughout GI Other: Tenderness to suprapubic and LLQ abdominal region Inspection: No Abdominal wall edema and No distended Palpation (GI): Soft to palpation, not firm, no guarding and not rigid Back/Spine/Pelvis Other: No thoracic or lumbar central bony tenderness, step-off, or crepitus. No paraspinal discomfort. Extrem General: Yes normal to inspection and Yes full ROM Course Course Course Narrative: Patient is afebrile and hemodynamically stable. Will obtain laboratory studies, UA, and EKG given patient reported prodrome of dizziness prior to falls. Will obtain CT Head/Neck, and Abdomen/Pelvis given report of multiple falls and LLQ abdominal pain. Reevaluation(s) Reevaluation #1: Labs reviewed. No leukocytosis. Pending UA. CXR with concern for possible early RLL infiltrate. Added CT Chest. Pending CT scan results and UA. Plan: Transition care to next emergency provider Condition: Stable Medical Decision Making Lab Data 08/30/23 20:09 08/30/23 21:16 Labs: Lab Results 08/30/23 08/30/23 08/30/23 Range/Units 20:00 20:09 21:16 WBC 3.9 L (4.8-10.8) X10*3/uL RBC 4.12 L (4.20-5.50) X10*6/uL Hgb 12.0 (12.0-16.0) g/dl Hct 36.7 L (37.0-47.0) % MCV 89.1 (80.0-98.0) fL MCH 29.1 (27.0-33.0) pg MCHC 32.7 (31.0-35.0) g/dl RDW 15.5 (11.0-16.0) % Plt Count 107 L (160-400) X10*3/uL MPV 10.6 (9.4-12.3) fL Immature Gran % (Auto) 0.3 (0.0-0.4) % Neut % (Auto) 65.5 (45-73) % Lymph % (Auto) 18.1 L (20-40) % [place] % (Auto) 12.2 H (2-11) % Eos % (Auto) 3.1 (0-4) % Baso % (Auto) 0.8 (0-2) % Lymph # (Auto) 0.7 L (1.2-4.9) X10*3/uL [place] # (Auto) 0.5 (0.1-1.2) X10*3/uL Eos # (Auto) 0.1 (0.0-0.4) X10*3/uL Baso # (Auto) 0.0 (0.0-0.2) X10*3/uL Abs Immat Gran (auto) 0.01 (0.00-0.03) X10*3/uL Absolute Neuts (auto) 2.6 (2.0-8.3) x10*3/uL Absolute Nucleated RBC 0.000 (0.0-0.012) X10*3/uL Nucleated RBC % (auto) 0.0 (0.0-0.2) /100WBC Hold Blue Top SEE NOTE Sodium 140 (135-145) mmol/L Potassium 3.8 (3.3-5.1) mmol/L Chloride 108 (96-108) mmol/L Carbon Dioxide 26 (22-29) mmol/L Anion Gap 10 L (12-20) BUN 17 H (9-16) mg/dL Creatinine 0.81 (0.5-1.4) mg/dL Estim Creat Clear Calc 56.1 Estimated GFR > 60 Random Glucose 225 H (60-115) mg/dL Calcium 9.3 (8.4-10.2) mg/dL Total Bilirubin 1.6 H (0.0-1.0) mg/dL AST 39 H (5-31) U/L ALT 17 (0-31) U/L Alkaline Phosphatase 127 H (39-117) U/L Troponin I High Sens < 2.7 D (<3.5-17.0) ng/L Total Protein 6.9 (6.5-8.0) g/dL Albumin 2.8 L (3.5-5.0) g/dL Lipase 24 (8-78) U/L Independent Interpretation I performed an independent interpretation of an: EKG Interpretation: NSR 69BPM with QTc 514, no ST-T wave changes Discharge Plan Discharge Clinical Impression: Fall Patient Disposition: Still a Patient Prescriptions: No Action furosemide 40 mg Tablet 40 mg PO DAILY 30 Days Qty: 30 0RF Protocol: Hold for SBP< HOLD for SBP < : 90 olanzapine 5 mg Tablet 5 mg PO DAILY 30 Days Qty: 30 0RF hydroxyzine HCl 25 mg Tablet 25 mg PO Q6H PRN (Reason: Anxiety) 30 Days Qty: 60 0RF lactulose 20 gram/30 mL Solution 20 g PO TID 30 Days Qty: 2700 0RF levothyroxine 25 mcg Tablet 25 mcg PO DAILY 30 Days Qty: 30 0RF insulin aspart U-100 [Novolog U-100 Insulin aspart] 100 unit/mL Solution 1 sliding scale dose SUBCUT TID Qty: 10 0RF pantoprazole 40 mg Tablet,Delayed Release (Dr/Ec) 40 mg PO BID 30 Days Qty: 60 0RF gabapentin 100 mg Capsule 200 mg PO TID 30 Days Qty: 180 0RF spironolactone 50 mg Tablet 50 mg PO DAILY 30 Days Qty: 30 0RF midodrine 10 mg Tablet 10 mg PO TID 30 Days Qty: 90 0RF Rx Instructions: do not give last dose of day after 6PM or within 4 hrs of bedtime escitalopram oxalate 20 mg Tablet 20 mg PO DAILY 30 Days Qty: 30 0RF rosuvastatin 5 mg Tablet 5 mg PO DAILY 30 Days Qty: 30 0RF trospium 60 mg Capsule,Extended Release 24hr 60 mg PO 1XD 30 Days Qty: 30 0RF Incruse Ellipta 62.5 mcg/actuation Blister With Device 1 inh INHALATION DAILY Qty: 30 0RF cyanocobalamin (vitamin B-12) 1,000 mcg tablet 1,000 mcg PO DAILY montelukast 10 mg tablet 10 mg PO DAILY potassium chloride 10 mEq capsule, extended release 10 meq PO DAILY calcium citrate-vitamin D3 315 mg-6.25 mcg (250 unit) tablet 1 tab PO DAILY Xifaxan 550 mg tablet 550 mg PO BID docusate sodium 100 mg capsule 100 mg PO BID PRN (Reason: Constipation) sennosides [Senna Lax] 8.6 mg tablet 8.6 mg PO BEDTIME PRN (Reason: Constipation) polyethylene glycol 3350 17 gram powder in packet 17 g PO BID PRN (Reason: Constipation) ferrous sulfate 325 mg (65 mg iron) tablet 325 mg PO BID prednisone 20 mg Tablet 20 mg PO DAILY Qty: 1 0RF doxycycline monohydrate 100 mg Capsule 100 mg PO Q12H Qty: 4 0RF cefuroxime axetil 500 mg Tablet 500 mg PO BID Qty: 4 0RF insulin glargine [Lantus Solostar U-100 Insulin] 100 unit/mL (3 mL) insulin pen 40 unit SUBCUT BEDTIME Qty: 15 0RF metoprolol succinate 50 mg tablet extended release 24 hr 50 mg PO DAILY Qty: 30 0RF
[2023-08-30 20:14] LABS: MANUAL DIFF FLAG NO
[2023-08-30 20:17] VITALS: PULSE 67
[2023-08-30 20:18] LABS: Basophils Percent Auto 0.8 % (0-2); Eosinophils Absolute Auto 0.1 X10*3/uL (0.0-0.4); Eosinophils Percent Auto 3.1 % (0-4); Hematocrit 36.7 % (37.0-47.0); Imm Gran Abs Auto 0.01 X10*3/uL (0.00-0.03); Imm Gran Pct Auto 0.3 % (0.0-0.4); Lymphocytes Absolute Auto 0.7 X10*3/uL (1.2-4.9); Lymphocytes Percent Auto 18.1 % (20-40); Mean Corpuscular HGB Conc 32.7 g/dl (31.0-35.0); Mean Corpuscular Hemoglobin 29.1 pg (27.0-33.0); Mean Corpuscular Volume 89.1 fL (80.0-98.0); Mean Platelet Volume 10.6 fL (9.4-12.3); Monocytes Absolute Auto 0.5 X10*3/uL (0.1-1.2); Monocytes Percent Auto 12.2 % (2-11); Neutrophils Absolute Auto 2.6 x10*3/uL (2.0-8.3); Neutrophils Percent Auto 65.5 % (45-73); Platelet Count 107 X10*3/uL (160-400); Red Blood Count 4.12 X10*6/uL (4.20-5.50); Red Cell Distribution Width 15.5 % (11.0-16.0); White Blood Count 3.9 X10*3/uL (4.8-10.8)
--- NOTE | 2023-08-30 21:17 | MHC.EDTECH ---
Repeated blood drawn and sent to lab ,vitals taken ,Patient resting quietly in bed ,Call abdi within Pt reach .
[2023-08-30 21:20] VITALS: BP 132/55; PULSE 67; RESP 16; TEMP 36.8; O2SAT 97
[2023-08-30 21:29] LABS: Anion Gap 10 (12-20)
[2023-08-30 21:33] LABS: Alanine Aminotransferase 17 U/L (0-31); Albumin Level 2.8 g/dL (3.5-5.0); Alkaline Phosphatase 127 U/L (39-117); Aspartate Amino Transferase 39 U/L (5-31); Bilirubin Total 1.6 mg/dL (0.0-1.0); Blood Urea Nitrogen 17 mg/dL (9-16); Calcium 9.3 mg/dL (8.4-10.2); Carbon Dioxide 26 mmol/L (22-29); Chloride 108 mmol/L (96-108); Creatinine Clr Calc Pharmacy 56.1; Estimated Glomerular Filt Rate > 60; Glucose Random 225 mg/dL (60-115); Lipase 24 U/L (8-78); Potassium 3.8 mmol/L (3.3-5.1); Sodium 140 mmol/L (135-145); Total Protein 6.9 g/dL (6.5-8.0)
[2023-08-30 21:47] LABS: Troponin-I High Sensitivity < 2.7 ng/L (<3.5-17.0)
[2023-08-30] MEDS: iohexoL 350 MG/ML 100 ML INFUS..BTL 85 ML IV (22:51)
[2023-08-30 23:25] VITALS: BP 125/47; PULSE 63; RESP 14; TEMP 36.8; O2SAT 95
--- NOTE | 2023-08-31 00:30 | PC.NURSE ---
no changes to previous assessment by this RN. nad. pt resting comfortably in stretcher. awaiting ua results. call abdi within reach.
[2023-08-31 00:35] LABS: Appearance Urine Clear; Color Urine Yellow; Glucose Urine UA Negative (Negative); Leukocyte Esterase Urine Negative (Negative); Nitrite Urine Negative (Negative); Specific Gravity - Urine >= 1.030 (1.005-1.025); Urine Blood Negative (Negative); Urine Ketones Negative (Negative); Urine Protein Negative (Neg-Trace)
[2023-08-31 00:37] LABS: Bacteria Urine None Seen (None Seen); Hyaline Casts Urine 0-2 /LPF (0-2); RBC Urine 0-2 /HPF (0-2); Squamous Epithelial Cell Urine 0-2 /HPF (0-2); WBC Urine 0-5 /HPF (0-5)
[2023-08-31 01:44] VITALS: BP 115/68; PULSE 62; RESP 16; TEMP 36.7; O2SAT 97
--- NOTE | 2023-08-31 01:45 | MHC.EDTECH ---
Patient was being discharge ,And was assisted to get dress .
[2023-08-31] MEDS: levoFLOXacin 500 MG TABLET PO (01:48)
== END 2023-08-31 02:07 | disposition home or self-care (01) ==
PROVIDERS: Emergency Medicine; Emergency Provider Emergency Medicine Emergency Medical Services
DX: R10.32 Left lower quadrant pain (principal); M54.2 Cervicalgia; R29.6 Repeated falls; Z91.81 History of falling
CPT/HCPCS: 36415; 70450; 71045; 71260; 72125; 74177; 80053; 81001; 83690; 84484; 85025; 93005; 99284; 99285; Q9967

== ENCOUNTER → 2023-08-30 20:09 | Outpatient (BNV) | payer OTHER, SELFPAY | PROVIDERS: Emergency Provider Emergency Medicine Emergency Medical Services; Visit Provider Internal Medicine | DX: R42 Dizziness and giddiness (principal) | CPT/HCPCS: 93010 ==

== ENCOUNTER 2023-09-12 17:58 | Emergency (ER) | payer OTHER, SELFPAY ==
--- NOTE | ~2023-09-12 | XR_ITS ---
EXAMINATION: XR CHEST CLINICAL INFORMATION: Cough. COMPARISON: CT chest, abdomen pelvis 08/30/2023. TECHNIQUE: 2 views of the chest were obtained. FINDINGS: There is moderate cardiomegaly with increased pulmonary vascularity consistent with CHF. The lungs are well-expanded and clear. No gross bony abnormality seen. XR/XR chest 2V IMPRESSION: Moderate cardiomegaly with CHF.
--- NOTE | 2023-09-12 18:01 | ECG_ITS ---
Test Reason : ALTERED MENTAL Blood Pressure : / mmHG Vent. Rate : 071 BPM Atrial Rate : 071 BPM P-R Int : 156 ms QRS Dur : 082 ms QT Int : 442 ms P-R-T Axes : 064 041 056 degrees QTc Int : 480 ms Normal sinus rhythm Normal ECG When compared with ECG of 30-AUG-2023 20:09, No significant change was found Referred By: Mariana Wood Electronically Signed By:DARRIUS VILLARREAL MD
--- NOTE | 2023-09-12 18:10 | ED.GENADULT ---
HPI - General Adult General Chief complaint: General Medical Stated complaint: SHOULDER PAIN,AMS,BGL 562 Time Seen by Provider: 09/12/23 17:58 Source: patient and EMS Mode of arrival: EMS History of Present Illness HPI narrative: 72-year-old female with multiple medical comorbidities presents via EMS with not feeling well, bad, I have a bad liver . Patient was confused as to her location but was reoriented, she endorses that she had breakfast but no lunch and reports some mild nausea with shortness of breath. Related Data Home Medications Medication Instructions Recorded Confirmed calcium citrate 315 mg 1 tab PO DAILY 07/21/23 07/21/23 calcium-vitamin D3 6.25 mcg (250 unit) tablet cyanocobalamin (vitamin B-12) 1,000 mcg PO DAILY 07/21/23 07/21/23 1,000 mcg tablet docusate sodium 100 mg capsule 100 mg PO BID PRN Constipation 07/21/23 07/21/23 ferrous sulfate 325 mg (65 mg 325 mg PO BID 07/21/23 07/21/23 iron) tablet montelukast 10 mg tablet 10 mg PO DAILY 07/21/23 07/21/23 polyethylene glycol 3350 17 gram 17 g PO BID PRN Constipation 07/21/23 07/21/23 oral powder packet potassium chloride 10 mEq 10 meq PO DAILY 07/21/23 07/21/23 capsule,extended release rifaximin 550 mg tablet (Xifaxan) 550 mg PO BID 07/21/23 07/21/23 sennosides 8.6 mg tablet (Senna 8.6 mg PO BEDTIME PRN Constipation 07/21/23 07/21/23 Lax) Previous Rx's Medication Instructions Recorded escitalopram oxalate 20 mg tablet 20 mg PO DAILY 30 days #30 tabs 03/25/23 furosemide 40 mg tablet 40 mg PO DAILY 30 days #30 tabs 03/25/23 gabapentin 100 mg capsule 200 mg (2 x 100 mg) PO TID 30 days 03/25/23 #180 caps hydroxyzine HCl 25 mg tablet 25 mg PO Q6H PRN Anxiety 30 days 03/25/23 #60 tabs insulin aspart U-100 100 unit/mL 1 sliding scale dose subcut TID 03/25/23 subcutaneous solution (Novolog #10 mL U-100 Insulin aspart) lactulose 20 gram/30 mL oral 20 g (30 mL) PO TID 30 days #2,700 03/25/23 solution mL levothyroxine 25 mcg tablet 25 mcg PO DAILY 30 days #30 tabs 03/25/23 midodrine 10 mg tablet 10 mg PO TID 30 days #90 tabs 03/25/23 olanzapine 5 mg tablet 5 mg PO DAILY 30 days #30 tabs 03/25/23 pantoprazole 40 mg tablet,delayed 40 mg PO BID 30 days #60 tabs 03/25/23 release rosuvastatin 5 mg tablet 5 mg PO DAILY 30 days #30 tabs 03/25/23 spironolactone 50 mg tablet 50 mg PO DAILY 30 days #30 tabs 03/25/23 trospium 60 mg capsule,extended 60 mg PO 1XD 30 days #30 caps 03/25/23 release 24 hr umeclidinium 62.5 mcg/actuation 1 inh inhalation DAILY #30 ea 03/25/23 blister powder for inhalation (Incruse Ellipta) cefuroxime axetil 500 mg tablet 500 mg PO BID #4 tabs 07/30/23 doxycycline monohydrate 100 mg 100 mg PO Q12H #4 caps 07/30/23 capsule insulin glargine 100 unit/mL (3 40 unit (0.4 mL) subcut BEDTIME 07/30/23 mL) subcutaneous pen (Lantus #15 mL Solostar U-100 Insulin) metoprolol succinate 50 mg 50 mg PO DAILY #30 tabs 07/30/23 tablet,extended release 24 hr prednisone 20 mg tablet 20 mg PO DAILY #1 tab 07/30/23 levofloxacin 500 mg tablet 500 mg PO DAILY #7 tabs 08/31/23 Allergies Allergy/AdvReac Type Severity Reaction Status Date / Time aspirin Allergy Unknown Verified 07/21/23 12:59 bee pollen [bee stings] Allergy Unknown Verified 07/21/23 12:59 Penicillins Allergy Unknown Verified 07/21/23 12:59 Review of Systems Review of Systems: Pertinent positives and negatives as stated in [facility] Past Medical History Source: nursing notes reviewed 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) Asthma (08/30/21) Arthritis Anxiety and depression Anemia of chronic disease Congestive heart failure Depression Type 2 diabetes mellitus Chronic constipation GERD (gastroesophageal reflux disease) Asthma-COPD overlap syndrome Hypothyroidism History of hepatitis C Hepatic cirrhosis Hypertension Social History Social History Household Members: None Household Members Other:: two daughters, two grandchildren and son-in-law Housing: Other Housing Other:: Multifamily Do you presently have visiting nurse or other home services: No Patient Tobacco Use Status: Never used Tobacco Tobacco use type: Cigarette Second Hand Smoke Exposure: No Substance Use Type: Crack/Cocaine and Marijuana Advance Directives: Yes Advance Directives on File: Yes Advance Directives Date on File: 07/31/23 service: No Sexual orientation: Straight/Heterosexual Physical Exam ED Vital Signs: Vital Signs - 24 hr 09/12/23 19:03 09/12/23 19:35 09/12/23 22:07 Temperature 98.3 F 98.6 F 98.2 F Pulse Rate 70 71 66 Respiratory Rate 14 16 17 Blood Pressure 142/60 H 122/59 L 142/54 H Pulse Oximetry 96 97 97 Oxygen Delivery Method Room Air Room Air Room Air BMI result Body Mass Index 34.0 VITAL SIGNS: Reviewed. GENERAL: Elderly, chronically ill, in mild distress. HEAD: Normocephalic/atraumatic EYES: PERRLA, EOMI EARS: Ext canals without abnormality, TMs non-bulging and non-erythematous NOSE: Nares patent bilateral OROPHARYNX: no oral lesions noted, posterior pharynx clear and non-erythematous without noted tonsillar enlargement/erythema/exudates, dry mucosa NECK: Supple, no adenopathy LUNGS: Bibasilar rales noted, mild tachypnea. CARDIOVASCULAR: Regular rate and rhythm without noted murmurs, no JVD or lower extremity edema. ABDOMEN: Soft, non-tender, non-distended with bowel sounds. MUSCULOSKELETAL: No tenderness, deformities, or effusions noted on gross inspection. EXTREMITIES: No cyanosis, clubbing or edema. SKIN: Inspection of the skin reveals no rashes NEUROLOGIC: Alert and oriented x 1. Strength and sensation to light touch were grossly intact x 4. Medications Administered Discontinued Medications Generic Name Dose Route Start Last Admin Trade Name Freq PRN Reason Stop Dose Admin Sodium Chloride 500 mls @ 999 mls/hr 09/12/23 19:30 09/12/23 20:12 Ns IV 02/01/24 20:00 Infused .Q31M ZENA Infusion Insulin Human Lispro 5 unit 09/12/23 19:28 09/12/23 19:34 Insulin Lispro 100 Unit/Ml 3 Ml Vial SUBCUT 09/12/23 19:29 5 unit ONCE ONE Administration Insulin Human Lispro 5 unit 09/12/23 19:56 09/12/23 20:11 Insulin Lispro 100 Unit/Ml 3 Ml Vial SUBCUT 09/12/23 19:57 5 unit ONCE ONE Administration Medical Decision Making Medical Decision Making [facility] Narrative: 1813: 72-year-old female with history and clinical presentation, DDX: CHF, infection, anemia, electrolyte abnml I reviewed all investigations, hematologic indices do not demonstrate a leukocytosis but there is a noted left shift, there is a normocytic anemia that is chronically stable and a chronically stable thrombocytopenia. Coagulation studies are mildly elevated which appears to be chronic. Chemistry indices do not demonstrate an CESIA there is noted hyperglycemia without evidence of DKA or HHS, patient received a total of 10 units of lispro subcutaneously and there is a noted elevation of lactic acid but no obvious source for any infection, urinalysis is negative. Liver enzymes are grossly within normal limits. Viral testing is negative for COVID-19/influenza. Repeat lactate has completely resolved. Collateral information from the daughter is reported that the primary care doctor suspects that patient's lethargy may have been secondary to trazodone which was discontinued. I reviewed chest x-ray which does not demonstrate an infiltrate but suggest CHF although patient does not have clinical findings, she has not hypoxic, she will be treated with 40 mg of Lasix IV but is otherwise stable for discharge to home with improving glucose levels. Differential Diagnosis Differential Diagnoses: The differential diagnosis associated with the presentation includes Please see the discussion above Admission/Observation Consideration of admission/observation: Escalation of care including admission/observation considered Place head discussion above Lab Data [facility] Lab Attestation statement: I reviewed the patient's lab results. Please see the discussion above 09/12/23 18:27 09/12/23 18:27 Labs: Lab Results 09/12/23 09/12/23 09/12/23 Range/Units 18:27 19:31 19:33 WBC 5.9 (4.8-10.8) X10*3/uL RBC 3.89 L (4.20-5.50) X10*6/uL Hgb 11.3 L (12.0-16.0) g/dl Hct 34.8 L (37.0-47.0) % MCV 89.5 (80.0-98.0) fL MCH 29.0 (27.0-33.0) pg MCHC 32.5 (31.0-35.0) g/dl RDW 15.6 (11.0-16.0) % Plt Count 102 L (160-400) X10*3/uL MPV 10.7 (9.4-12.3) fL Immature Gran % (Auto) 0.5 H (0.0-0.4) % Neut % (Auto) 89.9 H (45-73) % Lymph % (Auto) 5.4 L (20-40) % [place] % (Auto) 4.2 (2-11) % Eos % (Auto) 0.0 (0-4) % Baso % (Auto) 0.0 (0-2) % Lymph # (Auto) 0.3 L (1.2-4.9) X10*3/uL [place] # (Auto) 0.3 (0.1-1.2) X10*3/uL Eos # (Auto) 0.0 (0.0-0.4) X10*3/uL Baso # (Auto) 0.0 (0.0-0.2) X10*3/uL Abs Immat Gran (auto) 0.03 (0.00-0.03) X10*3/uL Absolute Neuts (auto) 5.3 (2.0-8.3) x10*3/uL Absolute Nucleated RBC 0.000 (0.0-0.012) X10*3/uL Nucleated RBC % (auto) 0.0 (0.0-0.2) /100WBC PT 16.6 H (11.1-13.3) SEC INR 1.4 H (0.9-1.1) Sodium 136 (135-145) mmol/L Potassium 4.5 (3.3-5.1) mmol/L Chloride 106 (96-108) mmol/L Carbon Dioxide 25 (22-29) mmol/L Anion Gap 10 L (12-20) BUN 17 H (9-16) mg/dL Creatinine 0.90 (0.5-1.4) mg/dL Estim Creat Clear Calc 53.3 Estimated GFR > 60 POC Glucose > 600 H* (60-115) mg/dL Random Glucose 525 H* (60-115) mg/dL Lactic Acid 2.4 H* (0.5-2.0) mmol/L Lactic Acid F/U @ 2Hr (0.5-2.0) mmol/L Calcium 9.0 (8.4-10.2) mg/dL Total Bilirubin 1.3 H (0.0-1.0) mg/dL AST 33 H (5-31) U/L ALT 15 (0-31) U/L Alkaline Phosphatase 163 H (39-117) U/L Total Protein 7.1 (6.5-8.0) g/dL Albumin 3.0 L (3.5-5.0) g/dL Beta-Hydroxybutyrate 0.11 (0.02-0.27) mmol/L Urine Color Urine Appearance Urine pH (5.0-9.0) Ur Specific [place] (1.005-1.025) Urine Protein (Neg-Trace) mg/dL Urine Glucose (UA) (Negative) mg/dL Urine Ketones (Negative) mg/dL Urine Blood (Negative) Urine Nitrite (Negative) Ur Leukocyte Esterase (Negative) Urine RBC (0-2) /HPF Urine WBC (0-5) /HPF Ur Squamous Epith Cells (0-2) /HPF Urine Bacteria (None Seen) Hyaline Casts (0-2) /LPF COVID-19 (MAINE) Negative (Negative) COVID-19 Clin Com See Note Influenza Type A (ADONIS) Negative (Negative) Influenza Type B (ADONIS) Negative (Negative) Influenza A & B Note See Note 09/12/23 09/12/23 09/12/23 Range/Units 20:21 20:38 20:41 WBC (4.8-10.8) X10*3/uL RBC (4.20-5.50) X10*6/uL Hgb (12.0-16.0) g/dl Hct (37.0-47.0) % MCV (80.0-98.0) fL MCH (27.0-33.0) pg MCHC (31.0-35.0) g/dl RDW (11.0-16.0) % Plt Count (160-400) X10*3/uL MPV (9.4-12.3) fL Immature Gran % (Auto) (0.0-0.4) % Neut % (Auto) (45-73) % Lymph % (Auto) (20-40) % [place] % (Auto) (2-11) % Eos % (Auto) (0-4) % Baso % (Auto) (0-2) % Lymph # (Auto) (1.2-4.9) X10*3/uL [place] # (Auto) (0.1-1.2) X10*3/uL Eos # (Auto) (0.0-0.4) X10*3/uL Baso # (Auto) (0.0-0.2) X10*3/uL Abs Immat Gran (auto) (0.00-0.03) X10*3/uL Absolute Neuts (auto) (2.0-8.3) x10*3/uL Absolute Nucleated RBC (0.0-0.012) X10*3/uL Nucleated RBC % (auto) (0.0-0.2) /100WBC PT (11.1-13.3) SEC INR (0.9-1.1) Sodium (135-145) mmol/L Potassium (3.3-5.1) mmol/L Chloride (96-108) mmol/L Carbon Dioxide (22-29) mmol/L Anion Gap (12-20) BUN (9-16) mg/dL Creatinine (0.5-1.4) mg/dL Estim Creat Clear Calc Estimated GFR POC Glucose 416 H* (60-115) mg/dL Random Glucose (60-115) mg/dL Lactic Acid (0.5-2.0) mmol/L Lactic Acid F/U @ 2Hr 1.8 (0.5-2.0) mmol/L Calcium (8.4-10.2) mg/dL Total Bilirubin (0.0-1.0) mg/dL AST (5-31) U/L ALT (0-31) U/L Alkaline Phosphatase (39-117) U/L Total Protein (6.5-8.0) g/dL Albumin (3.5-5.0) g/dL Beta-Hydroxybutyrate (0.02-0.27) mmol/L Urine Color Yellow Urine Appearance Clear Urine pH 7.5 (5.0-9.0) Ur Specific [place] 1.025 (1.005-1.025) Urine Protein Negative (Neg-Trace) mg/dL Urine Glucose (UA) >=1000 H (Negative) mg/dL Urine Ketones Negative (Negative) mg/dL Urine Blood Negative (Negative) Urine Nitrite Negative (Negative) Ur Leukocyte Esterase Negative (Negative) Urine RBC 0-2 (0-2) /HPF Urine WBC 0-5 (0-5) /HPF Ur Squamous Epith Cells 0-2 (0-2) /HPF Urine Bacteria None Seen (None Seen) Hyaline Casts 0-2 (0-2) /LPF COVID-19 (MAINE) (Negative) COVID-19 Clin Com Influenza Type A (ADONIS) (Negative) Influenza Type B (ADONIS) (Negative) Influenza A & B Note 09/12/23 Range/Units 22:06 WBC (4.8-10.8) X10*3/uL RBC (4.20-5.50) X10*6/uL Hgb (12.0-16.0) g/dl Hct (37.0-47.0) % MCV (80.0-98.0) fL MCH (27.0-33.0) pg MCHC (31.0-35.0) g/dl RDW (11.0-16.0) % Plt Count (160-400) X10*3/uL MPV (9.4-12.3) fL Immature Gran % (Auto) (0.0-0.4) % Neut % (Auto) (45-73) % Lymph % (Auto) (20-40) % [place] % (Auto) (2-11) % Eos % (Auto) (0-4) % Baso % (Auto) (0-2) % Lymph # (Auto) (1.2-4.9) X10*3/uL [place] # (Auto) (0.1-1.2) X10*3/uL Eos # (Auto) (0.0-0.4) X10*3/uL Baso # (Auto) (0.0-0.2) X10*3/uL Abs Immat Gran (auto) (0.00-0.03) X10*3/uL Absolute Neuts (auto) (2.0-8.3) x10*3/uL Absolute Nucleated RBC (0.0-0.012) X10*3/uL Nucleated RBC % (auto) (0.0-0.2) /100WBC PT (11.1-13.3) SEC INR (0.9-1.1) Sodium (135-145) mmol/L Potassium (3.3-5.1) mmol/L Chloride (96-108) mmol/L Carbon Dioxide (22-29) mmol/L Anion Gap (12-20) BUN (9-16) mg/dL Creatinine (0.5-1.4) mg/dL Estim Creat Clear Calc Estimated GFR POC Glucose 335 H (60-115) mg/dL Random Glucose (60-115) mg/dL Lactic Acid (0.5-2.0) mmol/L Lactic Acid F/U @ 2Hr (0.5-2.0) mmol/L Calcium (8.4-10.2) mg/dL Total Bilirubin (0.0-1.0) mg/dL AST (5-31) U/L ALT (0-31) U/L Alkaline Phosphatase (39-117) U/L Total Protein (6.5-8.0) g/dL Albumin (3.5-5.0) g/dL Beta-Hydroxybutyrate (0.02-0.27) mmol/L Urine Color Urine Appearance Urine pH (5.0-9.0) Ur Specific [place] (1.005-1.025) Urine Protein (Neg-Trace) mg/dL Urine Glucose (UA) (Negative) mg/dL Urine Ketones (Negative) mg/dL Urine Blood (Negative) Urine Nitrite (Negative) Ur Leukocyte Esterase (Negative) Urine RBC (0-2) /HPF Urine WBC (0-5) /HPF Ur Squamous Epith Cells (0-2) /HPF Urine Bacteria (None Seen) Hyaline Casts (0-2) /LPF COVID-19 (MAINE) (Negative) COVID-19 Clin Com Influenza Type A (ADONIS) (Negative) Influenza Type B (ADONIS) (Negative) Influenza A & B Note Independent Interpretation I performed an independent interpretation of an: EKG Interpretation: Normal sinus rhythm, HR-71, no STEMI, VT/QRS/QTC is within normal limits Radiology Impression Discussion of test interpretation with radiology: I have reviewed the radiologist's reading. Radiologist Impression: Please see the discussion above External Record Review External record reviewed: Outpatient record, Prior outpatient labs and Prior outpatient radiology Chronic Conditions Patient?s care impacted by: Diabetes and Hypertension Critical Care Time Critical Care Time Critical Care Time: Yes Total Critical Care Time: 60 Attestation: I personally attest to this time spent taking care of the patient. Discharge Plan Discharge Clinical Impression: Hyperglycemia due to diabetes mellitus, Medication side effect, CHF (congestive heart failure) Patient Disposition: Home, Self-Care Instructions: Diabetic Hyperglycemia (ED), Heart Failure (ED) Additional Instructions: 1. Reanudar todos los medicamentos caseros seg?n lo recetado. 2. Todd un seguimiento con herrera m?dico de atenci?n primaria en los pr?ximos 1 o 2 d?as. No dude en regresar a la maxwell de emergencias si vince s?ntomas empeoran. 1. Resume all home medications as prescribed. 2. Please follow-up with your primary care doctor in the next 1-2 days. Do not hesitate to return to the emergency room should you have any worsening of your symptoms. Prescriptions: No Action furosemide 40 mg Tablet 40 mg PO DAILY 30 Days Qty: 30 0RF Protocol: Hold for SBP< HOLD for SBP < : 90 olanzapine 5 mg Tablet 5 mg PO DAILY 30 Days Qty: 30 0RF hydroxyzine HCl 25 mg Tablet 25 mg PO Q6H PRN (Reason: Anxiety) 30 Days Qty: 60 0RF lactulose 20 gram/30 mL Solution 20 g PO TID 30 Days Qty: 2700 0RF levothyroxine 25 mcg Tablet 25 mcg PO DAILY 30 Days Qty: 30 0RF insulin aspart U-100 [Novolog U-100 Insulin aspart] 100 unit/mL Solution 1 sliding scale dose SUBCUT TID Qty: 10 0RF pantoprazole 40 mg Tablet,Delayed Release (Dr/Ec) 40 mg PO BID 30 Days Qty: 60 0RF gabapentin 100 mg Capsule 200 mg PO TID 30 Days Qty: 180 0RF spironolactone 50 mg Tablet 50 mg PO DAILY 30 Days Qty: 30 0RF midodrine 10 mg Tablet 10 mg PO TID 30 Days Qty: 90 0RF Rx Instructions: do not give last dose of day after 6PM or within 4 hrs of bedtime escitalopram oxalate 20 mg Tablet 20 mg PO DAILY 30 Days Qty: 30 0RF rosuvastatin 5 mg Tablet 5 mg PO DAILY 30 Days Qty: 30 0RF trospium 60 mg Capsule,Extended Release 24hr 60 mg PO 1XD 30 Days Qty: 30 0RF Incruse Ellipta 62.5 mcg/actuation Blister With Device 1 inh INHALATION DAILY Qty: 30 0RF cyanocobalamin (vitamin B-12) 1,000 mcg tablet 1,000 mcg PO DAILY montelukast 10 mg tablet 10 mg PO DAILY potassium chloride 10 mEq capsule, extended release 10 meq PO DAILY calcium citrate-vitamin D3 315 mg-6.25 mcg (250 unit) tablet 1 tab PO DAILY Xifaxan 550 mg tablet 550 mg PO BID docusate sodium 100 mg capsule 100 mg PO BID PRN (Reason: Constipation) sennosides [Senna Lax] 8.6 mg tablet 8.6 mg PO BEDTIME PRN (Reason: Constipation) polyethylene glycol 3350 17 gram powder in packet 17 g PO BID PRN (Reason: Constipation) ferrous sulfate 325 mg (65 mg iron) tablet 325 mg PO BID prednisone 20 mg Tablet 20 mg PO DAILY Qty: 1 0RF doxycycline monohydrate 100 mg Capsule 100 mg PO Q12H Qty: 4 0RF cefuroxime axetil 500 mg Tablet 500 mg PO BID Qty: 4 0RF insulin glargine [Lantus Solostar U-100 Insulin] 100 unit/mL (3 mL) insulin pen 40 unit SUBCUT BEDTIME Qty: 15 0RF metoprolol succinate 50 mg tablet extended release 24 hr 50 mg PO DAILY Qty: 30 0RF levofloxacin 500 mg tablet 500 mg PO DAILY Qty: 7 0RF Print Language: Macedonian
[2023-09-12 18:31] VITALS: BP 142/60; PULSE 71; O2SAT 95
[2023-09-12 18:35] LABS: MANUAL DIFF FLAG NO
[2023-09-12 18:38] LABS: Hematocrit 34.8 % (37.0-47.0); Hemoglobin 11.3 g/dl (12.0-16.0); Imm Gran Abs Auto 0.03 X10*3/uL (0.00-0.03); Imm Gran Pct Auto 0.5 % (0.0-0.4); Lymphocytes Absolute Auto 0.3 X10*3/uL (1.2-4.9); Lymphocytes Percent Auto 5.4 % (20-40); Mean Corpuscular HGB Conc 32.5 g/dl (31.0-35.0); Mean Corpuscular Volume 89.5 fL (80.0-98.0); Mean Platelet Volume 10.7 fL (9.4-12.3); Monocytes Absolute Auto 0.3 X10*3/uL (0.1-1.2); Monocytes Percent Auto 4.2 % (2-11); Neutrophils Absolute Auto 5.3 x10*3/uL (2.0-8.3); Neutrophils Percent Auto 89.9 % (45-73); Platelet Count 102 X10*3/uL (160-400); Red Blood Count 3.89 X10*6/uL (4.20-5.50); Red Cell Distribution Width 15.6 % (11.0-16.0); White Blood Count 5.9 X10*3/uL (4.8-10.8)
[2023-09-12 18:42] LABS: INTERNATIONAL NORM RATIO 1.4 (0.9-1.1); Prothrombin Time 16.6 SEC (11.1-13.3)
[2023-09-12 18:57] LABS: Lactic Acid 2.4 mmol/L (0.5-2.0)
[2023-09-12 18:59] VITALS: BMI 34.0
[2023-09-12 19:03] VITALS: BP 142/60; PULSE 70; RESP 14; TEMP 36.8; O2SAT 96
[2023-09-12 19:10] LABS: Alanine Aminotransferase 15 U/L (0-31); Alkaline Phosphatase 163 U/L (39-117); Anion Gap 10 (12-20); Aspartate Amino Transferase 33 U/L (5-31); Bilirubin Total 1.3 mg/dL (0.0-1.0); Blood Urea Nitrogen 17 mg/dL (9-16); Carbon Dioxide 25 mmol/L (22-29); Chloride 106 mmol/L (96-108); Creatinine Clr Calc Pharmacy 53.3; Estimated Glomerular Filt Rate > 60; Glucose Random 525 mg/dL (60-115); Potassium 4.5 mmol/L (3.3-5.1); Sodium 136 mmol/L (135-145); Total Protein 7.1 g/dL (6.5-8.0)
[2023-09-12] MEDS: Insulin Lispro 100 UNIT/ML 3 ML VIAL SUBCUT ×2 (19:34→20:11)
[2023-09-12 19:35] VITALS: BP 122/59; PULSE 71; RESP 16; TEMP 37; O2SAT 97
[2023-09-12] MEDS: 0.9 % Sodium Chloride 500 ML 999 ML IV (19:35)
[2023-09-12 19:40] LABS: Glucose, Whole Blood > 600 mg/dL (60-115)
--- NOTE | 2023-09-12 19:41 | MHC.EDTECH ---
PATIENT 2ND SETS OF BLOOD CULTURE AND LACTIC ACID DRAWN ,ALSO COVID /FLU SWAB COLLECTED AND SENT TO LAB ,PURE WICK IN PLACE ,BLOOD SUGAR CHECK RN AWARE THAT BLOOD SUGAR READ HI .
[2023-09-12 20:01] LABS: COVID-19 Test Negative (Negative); IDNOW Serial# 08D9AD1C
[2023-09-12 20:02] LABS: IDNOW Serial# 152EDE1D; Influenza A Negative (Negative); Influenza B2 Negative (Negative)
[2023-09-12 20:07] LABS: Beta-Hydroxybutyrate 0.11 mmol/L (0.02-0.27)
[2023-09-12 20:32] LABS: Reflex Lactate? Lactic Acid Added
[2023-09-12 20:43] LABS: Appearance Urine Clear; Color Urine Yellow; Glucose Urine UA >=1000 mg/dL (Negative); Leukocyte Esterase Urine Negative (Negative); Nitrite Urine Negative (Negative); PH 7.5 (5.0-9.0); Specific Gravity - Urine 1.025 (1.005-1.025); UMIC TRIGGER UACC YES; Urine Blood Negative (Negative); Urine Ketones Negative (Negative); Urine Protein Negative (Neg-Trace)
[2023-09-12 20:56] LABS: ~Lactic Acid-LAB USE ONLY 1.8 mmol/L (0.5-2.0)
--- NOTE | 2023-09-12 21:04 | PC.NURSE ---
left message with daughter
[2023-09-12 21:10] LABS: Bacteria Urine None Seen (None Seen); Hyaline Casts Urine 0-2 /LPF (0-2); RBC Urine 0-2 /HPF (0-2); Squamous Epithelial Cell Urine 0-2 /HPF (0-2); WBC Urine 0-5 /HPF (0-5)
--- NOTE | 2023-09-12 21:24 | PC.NURSE ---
daughter called and states that she feels safe taking her mom home if medically cleared, provider aware
[2023-09-12 21:47] LABS: Glucose, Whole Blood 416 mg/dL (60-115)
[2023-09-12 22:07] VITALS: BP 142/54; PULSE 66; RESP 17; TEMP 36.8; O2SAT 97
[2023-09-12 22:12] LABS: Glucose, Whole Blood 335 mg/dL (60-115)
[2023-09-12] MEDS: Furosemide 40 MG/4 ML VIAL IVPUSH (23:05)
== END 2023-09-12 23:34 | disposition home or self-care (01) ==
PROVIDERS: Emergency Provider Student in an Organized Health Care Education/Training Program
DX: E11.65 Type 2 diabetes mellitus with hyperglycemia (principal); T43.215A Adverse effect of selective serotonin and norepinephrine reuptake inhibitors, initial encounter; R53.83 Other fatigue; Y92.9 Unspecified place or not applicable; I11.0 Hypertensive heart disease with heart failure; I50.9 Heart failure, unspecified; R06.02 Shortness of breath; Z11.52 Encounter for screening for COVID-19
CPT/HCPCS: 36415; 51701; 71046; 80053; 81001; 82010; 82947; 83605; 85025; 85610; 87040; 87502; 87635; 93005; 96361; 96374; 99284; 99285; J1940

== ENCOUNTER → 2023-09-12 18:01 | Outpatient (BNV) | payer OTHER, SELFPAY | PROVIDERS: Emergency Provider Student in an Organized Health Care Education/Training Program; Visit Provider Internal Medicine Cardiovascular Disease | DX: R41.82 Altered mental status, unspecified (principal) | CPT/HCPCS: 93010 ==

== ENCOUNTER 2023-09-13 14:20 | Emergency (ER) | payer OTHER, SELFPAY ==
--- NOTE | ~2023-09-13 | XR_ITS ---
EXAMINATION: XR CHEST CLINICAL INFORMATION: Chest pain COMPARISON: Previous chest x-ray from yesterday TECHNIQUE: Frontal view of the chest was obtained. FINDINGS: The cardiac silhouette is enlarged but stable. There is pulmonary venous redistribution and increased interstitial markings on the left suggestive of mild pulmonary edema. No pleural effusion or pneumothorax. Findings are similar to yesterday's exam. XR/XR chest 1V IMPRESSION: Mild CHF similar to yesterday's exam
[2023-09-13 14:30] LABS: Glucose, Whole Blood 510 mg/dL (60-115)
[2023-09-13 14:31] VITALS: BP 149/46; BP 168/76; PULSE 102; PULSE 87; RESP 16; TEMP 36.6; O2SAT 96; O2SAT 97; BMI 34.7
--- NOTE | 2023-09-13 14:36 | ECG_ITS ---
Test Reason : DIZZINESS Blood Pressure : / mmHG Vent. Rate : 081 BPM Atrial Rate : 081 BPM P-R Int : 142 ms QRS Dur : 084 ms QT Int : 396 ms P-R-T Axes : 073 047 051 degrees QTc Int : 460 ms Normal sinus rhythm Septal infarct , age undetermined Abnormal ECG When compared with ECG of 12-SEP-2023 18:27, Septal infarct is now Present Referred By: Gia Gold Electronically Signed By:DARRIUS VILLARREAL MD
--- NOTE | 2023-09-13 14:36 | PC.NURSE ---
a&ox4. vss and up to date. pt presents to the ED d/t being hyperglycemic. pt checked sugar at home - displayed <500mg/dL. POC by EMS = 584mg/dL. POC upon ED arrival = 510mg/dL. provider aware. pt also c/o dizziness/headache/feeling fatigued. no sob/wob noted. respirations even and unlabored. resting comfortably in stretcher in no apparent distress. pt to xray at this time.
--- NOTE | 2023-09-13 14:41 | ED.GENADULT ---
HPI - General Adult General Chief complaint: Recheck/Abnormal Lab/Rx Stated complaint: high bs Time Seen by Provider: 09/13/23 14:23 Source: patient Mode of arrival: EMS Limitations: no limitations History of Present Illness HPI narrative: Patient comes to the emergency room complaining of high blood sugar. Patient states that she checked her glucose today and above 500. Patient complaining of generalized fatigue, denies nausea or vomiting. Patient states that in the last 2 days she has had 2 episodes of diarrhea. Patient states that she is compliant with her medications. Of note, patient was not here yesterday for the same symptoms. Related Data Home Medications Medication Instructions Recorded Confirmed calcium citrate 315 mg 1 tab PO DAILY 07/21/23 07/21/23 calcium-vitamin D3 6.25 mcg (250 unit) tablet cyanocobalamin (vitamin B-12) 1,000 mcg PO DAILY 07/21/23 07/21/23 1,000 mcg tablet docusate sodium 100 mg capsule 100 mg PO BID PRN Constipation 07/21/23 07/21/23 ferrous sulfate 325 mg (65 mg 325 mg PO BID 07/21/23 07/21/23 iron) tablet montelukast 10 mg tablet 10 mg PO DAILY 07/21/23 07/21/23 polyethylene glycol 3350 17 gram 17 g PO BID PRN Constipation 07/21/23 07/21/23 oral powder packet potassium chloride 10 mEq 10 meq PO DAILY 07/21/23 07/21/23 capsule,extended release rifaximin 550 mg tablet (Xifaxan) 550 mg PO BID 07/21/23 07/21/23 sennosides 8.6 mg tablet (Senna 8.6 mg PO BEDTIME PRN Constipation 07/21/23 07/21/23 Lax) Previous Rx's Medication Instructions Recorded escitalopram oxalate 20 mg tablet 20 mg PO DAILY 30 days #30 tabs 03/25/23 furosemide 40 mg tablet 40 mg PO DAILY 30 days #30 tabs 03/25/23 gabapentin 100 mg capsule 200 mg (2 x 100 mg) PO TID 30 days 03/25/23 #180 caps hydroxyzine HCl 25 mg tablet 25 mg PO Q6H PRN Anxiety 30 days 03/25/23 #60 tabs insulin aspart U-100 100 unit/mL 1 sliding scale dose subcut TID 03/25/23 subcutaneous solution (Novolog #10 mL U-100 Insulin aspart) lactulose 20 gram/30 mL oral 20 g (30 mL) PO TID 30 days #2,700 03/25/23 solution mL levothyroxine 25 mcg tablet 25 mcg PO DAILY 30 days #30 tabs 03/25/23 midodrine 10 mg tablet 10 mg PO TID 30 days #90 tabs 03/25/23 olanzapine 5 mg tablet 5 mg PO DAILY 30 days #30 tabs 03/25/23 pantoprazole 40 mg tablet,delayed 40 mg PO BID 30 days #60 tabs 03/25/23 release rosuvastatin 5 mg tablet 5 mg PO DAILY 30 days #30 tabs 03/25/23 spironolactone 50 mg tablet 50 mg PO DAILY 30 days #30 tabs 03/25/23 trospium 60 mg capsule,extended 60 mg PO 1XD 30 days #30 caps 03/25/23 release 24 hr umeclidinium 62.5 mcg/actuation 1 inh inhalation DAILY #30 ea 03/25/23 blister powder for inhalation (Incruse Ellipta) cefuroxime axetil 500 mg tablet 500 mg PO BID #4 tabs 07/30/23 doxycycline monohydrate 100 mg 100 mg PO Q12H #4 caps 07/30/23 capsule insulin glargine 100 unit/mL (3 40 unit (0.4 mL) subcut BEDTIME 07/30/23 mL) subcutaneous pen (Lantus #15 mL Solostar U-100 Insulin) metoprolol succinate 50 mg 50 mg PO DAILY #30 tabs 07/30/23 tablet,extended release 24 hr prednisone 20 mg tablet 20 mg PO DAILY #1 tab 07/30/23 levofloxacin 500 mg tablet 500 mg PO DAILY #7 tabs 08/31/23 furosemide 40 mg tablet (Lasix) 40 mg PO DAILY #5 tabs 09/13/23 insulin glargine 100 unit/mL (3 5 unit (0.05 mL) subcut QPM #15 mL 09/13/23 mL) subcutaneous pen (Lantus Solostar U-100 Insulin) Allergies Allergy/AdvReac Type Severity Reaction Status Date / Time aspirin Allergy Unknown Verified 09/13/23 14:31 bee pollen [bee stings] Allergy Unknown Verified 09/13/23 14:31 Penicillins Allergy Unknown Verified 09/13/23 14:31 Review of Systems Review of Systems: Constitutional : No Weight loss, No Fever, No Chills, No Night Sweats, complaining of fatigue, generalized malaise ENT/Mouth : No Hearing loss, No Ear Pain, No Nasal Congestion, No Sinus Pain, No Hoarseness, No sore throat, No Rhinorrhea, No Swallowing Difficulty Eyes: No Eye Pain, No Swelling, No Redness, No Foreign Body, No Discharge, No Vision Changes Cardiovascular : No Chest Pain, No SOB, No Dyspnea on Exertion, No Orthopnea, No Edema, No Palpitations Respiratory : No Cough, No Sputum, No Wheezing, No Smoke Exposure, No Dyspnea Gastrointestinal : No Nausea, No Vomiting, 4 episodes of diarrhea in 48 hours, No Constipation, complaining of mild abdominal discomfort Genitourinary : no irregular bleeding, No Dysuria, No Urinary Frequency, No Hematuria, No Urinary Incontinence, No Urgency, No Flank Pain, No Urinary Flow Changes, No Hesitancy Musculoskeletal : No joint pain, No Myalgias, No Joint Swelling Skin : No Skin Lesions, No rash Neuro : No Weakness, No Numbness, No Paresthesias, No Loss of Consciousness, No Dizziness, No Headache Psych : No Anxiety/Panic, No Depression, No SI/HI/AH/VH, No Social Issues, Heme/Lymph: No Bruising, No Bleeding,No Lymphadenopathy Endocrine : No Polyuria, No Polydipsia, No Temperature Intolerance, complaining of high blood sugar PMFSH Past Medical History 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) Asthma (08/30/21) Arthritis Anxiety and depression Anemia of chronic disease Congestive heart failure Depression Type 2 diabetes mellitus Chronic constipation GERD (gastroesophageal reflux disease) Asthma-COPD overlap syndrome Hypothyroidism History of hepatitis C Hepatic cirrhosis Hypertension Social History Social History Household Members: None Household Members Other:: two daughters, two grandchildren and son-in-law Housing: Other Housing Other:: Multifamily Do you presently have visiting nurse or other home services: No Patient Tobacco Use Status: Never used Tobacco Tobacco use type: Cigarette Smoked in Last 30 Days: No Second Hand Smoke Exposure: No Use of substances other than those prescribed or required for medical reasons: No Substance Use Type: Crack/Cocaine and Marijuana Advance Directives: Yes Advance Directives on File: Yes Advance Directives Date on File: 07/31/23 service: No Sexual orientation: Straight/Heterosexual Physical Exam ED Vital Signs: Vital Signs - 24 hr 09/13/23 14:31 09/13/23 15:29 09/13/23 15:29 Temperature 97.8 F Pulse Rate 102 H 70 77 Respiratory Rate 16 Blood Pressure 149/46 H 159/70 H 156/70 H Pulse Oximetry 96 Oxygen Delivery Method Room Air 09/13/23 15:29 09/13/23 15:30 09/13/23 16:10 Temperature 97.8 F Pulse Rate 80 72 70 Respiratory Rate 16 20 Blood Pressure 170/66 H 162/70 H 142/59 H Pulse Oximetry 97 98 Oxygen Delivery Method Room Air 09/13/23 17:26 Temperature 98.3 F Pulse Rate 78 Respiratory Rate 14 Blood Pressure 134/52 L Pulse Oximetry 100 Oxygen Delivery Method Room Air BMI result Body Mass Index 34.7 Const Other: Appearance: Alert. Oriented X3. No acute distress. Eyes: Pupils equal, round and reactive to light. ENT: Pharynx normal. Neck: Normal inspection. Neck supple. No lymph nodes noted. No crepitus CVS: Normal heart rate and rhythm. Pulses normal. Normal S1 and S2 Respiratory: No respiratory distress. Breath sounds normal. No Wheezing. No rales Abdomen: Soft and nontender. No rigidity. No distention. Skin: Skin warm and dry. Normal skin color. Normal skin turgor. Extremities: No lower extremity edema. No Lacerations. No Rash Neuro: Oriented X 3. No motor deficit. No sensory deficit. Moving all extremities. No slurred speech. CN 2 through 12 grossly intact Psych: calm, cooperative, normal affect Course Course Course Narrative: All of patient's labs and imaging pending -patient receiving IV fluids, p.o. loperamide and IV insulin -patient's records, patient takes insulin glargine 40 units at bedtime and insulin aspart based on an insulin sliding scale. Medications Administered Discontinued Medications Generic Name Dose Route Start Last Admin Trade Name Freq PRN Reason Stop Dose Admin Sodium Chloride 1,000 mls @ 999 mls/hr 09/13/23 14:39 09/13/23 15:03 Ns IVCONT 09/13/23 15:39 999 mls/hr .Q1H1M ONE Administration Insulin Human Regular 10 unit 09/13/23 14:39 09/13/23 15:02 Insulin Regular, Human 100 Unit/Ml 3 Ml Vial IVPUSH 09/13/23 14:40 10 unit ONCE ONE Administration Insulin Human Regular 5 unit 09/13/23 17:49 09/13/23 18:05 Insulin Regular, Human 100 Unit/Ml 3 Ml Vial IVPUSH 09/13/23 17:50 5 unit ONCE ONE Administration Loperamide HCl 4 mg 09/13/23 14:42 09/13/23 15:06 Loperamide Hcl 2 Mg Capsule PO 09/13/23 14:43 4 mg ONCE ONE Administration Medical Decision Making Medical Decision Making [facility] Narrative: -my interpretation of labs: Hematology and chemistry at baseline, anion gap closed, LFTs chronically elevated, BNP 328 which is the baseline, troponin negative, beta hydroxybutyrate negative. Patient tested negative for COVID or influenza, urinalysis negative -patient's initial glucose 510, decreased to 300 after 15 units of insulin -my interpretation of chest x-ray, mild CHF. Per Radiology report: No changes from previous chest x-rays. -patient was given 40 mg p.o. Lasix -patient was ambulated in the ED, no oxygen desaturation, no chest pain or shortness of breath. Patient was able to ambulate with good steady gait with her walker -orthostatic vitals negative -discussed with the patient to increase her Lantus to 45 units from 40. Patient needs close follow-up with her primary care physician. Differential Diagnosis Differential Diagnoses: The differential diagnosis associated with the presentation includes (Hyperglycemia, UTI , CHF) Admission/Observation Consideration of admission/observation: Escalation of care including admission/observation considered (Today's patient's 2nd visit for same symptoms. On arrival, Admission was considered) Lab Data [facility] Lab Attestation statement: I reviewed the patient's lab results. 09/13/23 14:58 09/13/23 14:58 Labs: Lab Results 09/13/23 09/13/23 09/13/23 Range/Units 14:26 14:58 15:16 WBC 4.2 L (4.8-10.8) X10*3/uL RBC 4.14 L (4.20-5.50) X10*6/uL Hgb 12.1 (12.0-16.0) g/dl Hct 37.3 (37.0-47.0) % MCV 90.1 (80.0-98.0) fL MCH 29.2 (27.0-33.0) pg MCHC 32.4 (31.0-35.0) g/dl RDW 15.7 (11.0-16.0) % Plt Count 84 L (160-400) X10*3/uL MPV 10.8 (9.4-12.3) fL Immature Gran % (Auto) 0.7 H (0.0-0.4) % Neut % (Auto) 87.5 H (45-73) % Lymph % (Auto) 5.7 L (20-40) % [place] % (Auto) 5.9 (2-11) % Eos % (Auto) 0.2 (0-4) % Baso % (Auto) 0.0 (0-2) % Lymph # (Auto) 0.2 L (1.2-4.9) X10*3/uL [place] # (Auto) 0.3 (0.1-1.2) X10*3/uL Eos # (Auto) 0.0 (0.0-0.4) X10*3/uL Baso # (Auto) 0.0 (0.0-0.2) X10*3/uL Abs Immat Gran (auto) 0.03 (0.00-0.03) X10*3/uL Absolute Neuts (auto) 3.7 (2.0-8.3) x10*3/uL Absolute Nucleated RBC 0.000 (0.0-0.012) X10*3/uL Nucleated RBC % (auto) 0.0 (0.0-0.2) /100WBC PT 16.0 H (11.1-13.3) SEC INR 1.3 H (0.9-1.1) Sodium 133 L (135-145) mmol/L Potassium 4.4 (3.3-5.1) mmol/L Chloride 103 (96-108) mmol/L Carbon Dioxide 23 (22-29) mmol/L Anion Gap 11 L (12-20) BUN 17 H (9-16) mg/dL Creatinine 1.15 (0.5-1.4) mg/dL Estim Creat Clear Calc 40.4 Estimated GFR 47 POC Glucose 510 H* 484 H* (60-115) mg/dL Random Glucose 582 H* (60-115) mg/dL Calcium 9.2 (8.4-10.2) mg/dL Magnesium 1.9 (1.6-2.6) mg/dL Total Bilirubin 1.4 H (0.0-1.0) mg/dL Direct Bilirubin 0.7 H (0.0-0.5) mg/dL AST 43 H (5-31) U/L ALT 18 (0-31) U/L Alkaline Phosphatase 166 H (39-117) U/L Troponin I High Sens 2.8 (<3.5-17.0) ng/L B-Natriuretic Peptide 328 H (<100) pg/mL Total Protein 7.4 (6.5-8.0) g/dL Albumin 3.1 L (3.5-5.0) g/dL Lipase 26 (8-78) U/L Beta-Hydroxybutyrate 0.12 (0.02-0.27) mmol/L Urine Color Urine Appearance Urine pH (5.0-9.0) Ur Specific [place] (1.005-1.025) Urine Protein (Neg-Trace) mg/dL Urine Glucose (UA) (Negative) mg/dL Urine Ketones (Negative) mg/dL Urine Blood (Negative) Urine Nitrite (Negative) Ur Leukocyte Esterase (Negative) Urine RBC (0-2) /HPF Urine WBC (0-5) /HPF Ur Squamous Epith Cells (0-2) /HPF Urine Bacteria (None Seen) Hyaline Casts (0-2) /LPF COVID-19 (MAINE) Negative (Negative) COVID-19 Clin Com See Note Influenza Type A (ADONIS) Negative (Negative) Influenza Type B (ADONIS) Negative (Negative) Influenza A & B Note See Note 09/13/23 09/13/23 09/13/23 Range/Units 15:28 16:06 17:23 WBC (4.8-10.8) X10*3/uL RBC (4.20-5.50) X10*6/uL Hgb (12.0-16.0) g/dl Hct (37.0-47.0) % MCV (80.0-98.0) fL MCH (27.0-33.0) pg MCHC (31.0-35.0) g/dl RDW (11.0-16.0) % Plt Count (160-400) X10*3/uL MPV (9.4-12.3) fL Immature Gran % (Auto) (0.0-0.4) % Neut % (Auto) (45-73) % Lymph % (Auto) (20-40) % [place] % (Auto) (2-11) % Eos % (Auto) (0-4) % Baso % (Auto) (0-2) % Lymph # (Auto) (1.2-4.9) X10*3/uL [place] # (Auto) (0.1-1.2) X10*3/uL Eos # (Auto) (0.0-0.4) X10*3/uL Baso # (Auto) (0.0-0.2) X10*3/uL Abs Immat Gran (auto) (0.00-0.03) X10*3/uL Absolute Neuts (auto) (2.0-8.3) x10*3/uL Absolute Nucleated RBC (0.0-0.012) X10*3/uL Nucleated RBC % (auto) (0.0-0.2) /100WBC PT (11.1-13.3) SEC INR (0.9-1.1) Sodium (135-145) mmol/L Potassium (3.3-5.1) mmol/L Chloride (96-108) mmol/L Carbon Dioxide (22-29) mmol/L Anion Gap (12-20) BUN (9-16) mg/dL Creatinine (0.5-1.4) mg/dL Estim Creat Clear Calc Estimated GFR POC Glucose 407 H* 347 H (60-115) mg/dL Random Glucose (60-115) mg/dL Calcium (8.4-10.2) mg/dL Magnesium (1.6-2.6) mg/dL Total Bilirubin (0.0-1.0) mg/dL Direct Bilirubin (0.0-0.5) mg/dL AST (5-31) U/L ALT (0-31) U/L Alkaline Phosphatase (39-117) U/L Troponin I High Sens (<3.5-17.0) ng/L B-Natriuretic Peptide (<100) pg/mL Total Protein (6.5-8.0) g/dL Albumin (3.5-5.0) g/dL Lipase (8-78) U/L Beta-Hydroxybutyrate (0.02-0.27) mmol/L Urine Color Yellow Urine Appearance Clear Urine pH 7.5 (5.0-9.0) Ur Specific [place] 1.020 (1.005-1.025) Urine Protein Negative (Neg-Trace) mg/dL Urine Glucose (UA) >=1000 H (Negative) mg/dL Urine Ketones Negative (Negative) mg/dL Urine Blood Negative (Negative) Urine Nitrite Negative (Negative) Ur Leukocyte Esterase Negative (Negative) Urine RBC 0-2 (0-2) /HPF Urine WBC 0-5 (0-5) /HPF Ur Squamous Epith Cells 0-2 (0-2) /HPF Urine Bacteria None Seen (None Seen) Hyaline Casts 0-2 (0-2) /LPF COVID-19 (MAINE) (Negative) COVID-19 Clin Com Influenza Type A (ADONIS) (Negative) Influenza Type B (ADONIS) (Negative) Influenza A & B Note Independent Interpretation I performed an independent interpretation of an: Plain X-Ray Radiology Impression Discussion of test interpretation with radiology: I have reviewed the radiologist's reading. Radiologist Impression: FINDINGS: The cardiac silhouette is enlarged but stable. There is pulmonary venous redistribution and increased interstitial markings on the left suggestive of mild pulmonary edema. No pleural effusion or pneumothorax. Findings are similar to yesterday's exam. XR/XR chest 1V IMPRESSION: Mild CHF similar to yesterday's exam External Record Review External record reviewed: Outpatient record Critical Care Time Critical Care Time Critical Care Time: Yes Total Critical Care Time: 60 Attestation: I have personally provided critical care time. Time includes review of lab data, radiology results, discussion with consultants, and monitoring for potential decompensation. Intervention performed as documented. Discharge Plan Discharge Clinical Impression: Acute hyperglycemia, CHF (congestive heart failure) Patient Disposition: Home, Self-Care Instructions: Heart Failure (DC), Heart Healthy Diet (DC), Diabetic Hyperglycemia (ED) Additional Instructions: Please follow-up with your primary care physician tomorrow. If you have any worsening or new symptoms, please return to the emergency room or call 911 Prescriptions: New insulin glargine [Lantus Solostar U-100 Insulin] 100 unit/mL (3 mL) insulin pen 5 unit subcut QPM Qty: 15 0RF furosemide [Lasix] 40 mg tablet 40 mg PO DAILY Qty: 5 0RF No Action furosemide 40 mg Tablet 40 mg PO DAILY 30 Days Qty: 30 0RF Protocol: Hold for SBP< HOLD for SBP < : 90 olanzapine 5 mg Tablet 5 mg PO DAILY 30 Days Qty: 30 0RF hydroxyzine HCl 25 mg Tablet 25 mg PO Q6H PRN (Reason: Anxiety) 30 Days Qty: 60 0RF lactulose 20 gram/30 mL Solution 20 g PO TID 30 Days Qty: 2700 0RF levothyroxine 25 mcg Tablet 25 mcg PO DAILY 30 Days Qty: 30 0RF insulin aspart U-100 [Novolog U-100 Insulin aspart] 100 unit/mL Solution 1 sliding scale dose SUBCUT TID Qty: 10 0RF pantoprazole 40 mg Tablet,Delayed Release (Dr/Ec) 40 mg PO BID 30 Days Qty: 60 0RF gabapentin 100 mg Capsule 200 mg PO TID 30 Days Qty: 180 0RF spironolactone 50 mg Tablet 50 mg PO DAILY 30 Days Qty: 30 0RF midodrine 10 mg Tablet 10 mg PO TID 30 Days Qty: 90 0RF Rx Instructions: do not give last dose of day after 6PM or within 4 hrs of bedtime escitalopram oxalate 20 mg Tablet 20 mg PO DAILY 30 Days Qty: 30 0RF rosuvastatin 5 mg Tablet 5 mg PO DAILY 30 Days Qty: 30 0RF trospium 60 mg Capsule,Extended Release 24hr 60 mg PO 1XD 30 Days Qty: 30 0RF Incruse Ellipta 62.5 mcg/actuation Blister With Device 1 inh INHALATION DAILY Qty: 30 0RF cyanocobalamin (vitamin B-12) 1,000 mcg tablet 1,000 mcg PO DAILY montelukast 10 mg tablet 10 mg PO DAILY potassium chloride 10 mEq capsule, extended release 10 meq PO DAILY calcium citrate-vitamin D3 315 mg-6.25 mcg (250 unit) tablet 1 tab PO DAILY Xifaxan 550 mg tablet 550 mg PO BID docusate sodium 100 mg capsule 100 mg PO BID PRN (Reason: Constipation) sennosides [Senna Lax] 8.6 mg tablet 8.6 mg PO BEDTIME PRN (Reason: Constipation) polyethylene glycol 3350 17 gram powder in packet 17 g PO BID PRN (Reason: Constipation) ferrous sulfate 325 mg (65 mg iron) tablet 325 mg PO BID prednisone 20 mg Tablet 20 mg PO DAILY Qty: 1 0RF doxycycline monohydrate 100 mg Capsule 100 mg PO Q12H Qty: 4 0RF cefuroxime axetil 500 mg Tablet 500 mg PO BID Qty: 4 0RF insulin glargine [Lantus Solostar U-100 Insulin] 100 unit/mL (3 mL) insulin pen 40 unit SUBCUT BEDTIME Qty: 15 0RF metoprolol succinate 50 mg tablet extended release 24 hr 50 mg PO DAILY Qty: 30 0RF levofloxacin 500 mg tablet 500 mg PO DAILY Qty: 7 0RF
[2023-09-13] MEDS: Insulin Regular, Human 100 UNIT/ML 3 ML VIAL 10 UNIT IVPUSH (15:02)
[2023-09-13] MEDS: 0.9 % Sodium Chloride 1,000 ML 999 ML IVCONT (15:03)
[2023-09-13] MEDS: Loperamide HCl 2 MG CAPSULE 4 MG PO (15:06)
--- NOTE | 2023-09-13 15:06 | PC.NURSE ---
20gIV placed in the right AC - labs obtained/sent to lab. medication/IVF administered per provider order. will reassess POC shortly.
[2023-09-13 15:12] LABS: MANUAL DIFF FLAG NO
[2023-09-13 15:14] LABS: Eosinophils Percent Auto 0.2 % (0-4); Hematocrit 37.3 % (37.0-47.0); Hemoglobin 12.1 g/dl (12.0-16.0); Imm Gran Abs Auto 0.03 X10*3/uL (0.00-0.03); Imm Gran Pct Auto 0.7 % (0.0-0.4); Lymphocytes Absolute Auto 0.2 X10*3/uL (1.2-4.9); Lymphocytes Percent Auto 5.7 % (20-40); Mean Corpuscular HGB Conc 32.4 g/dl (31.0-35.0); Mean Corpuscular Hemoglobin 29.2 pg (27.0-33.0); Mean Corpuscular Volume 90.1 fL (80.0-98.0); Mean Platelet Volume 10.8 fL (9.4-12.3); Monocytes Absolute Auto 0.3 X10*3/uL (0.1-1.2); Monocytes Percent Auto 5.9 % (2-11); Neutrophils Absolute Auto 3.7 x10*3/uL (2.0-8.3); Neutrophils Percent Auto 87.5 % (45-73); Red Blood Count 4.14 X10*6/uL (4.20-5.50); Red Cell Distribution Width 15.7 % (11.0-16.0); White Blood Count 4.2 X10*3/uL (4.8-10.8)
[2023-09-13 15:15] LABS: Platelet Count 84 X10*3/uL (160-400)
[2023-09-13 15:20] LABS: Glucose, Whole Blood 484 mg/dL (60-115)
[2023-09-13 15:22] LABS: INTERNATIONAL NORM RATIO 1.3 (0.9-1.1)
[2023-09-13 15:29] VITALS: BP 156/70; BP 159/70; BP 170/66; PULSE 70; PULSE 77; PULSE 80
[2023-09-13 15:30] VITALS: BP 162/70; PULSE 72; RESP 16; TEMP 36.6; O2SAT 97
[2023-09-13 15:31] LABS: Beta-Hydroxybutyrate 0.12 mmol/L (0.02-0.27)
--- NOTE | 2023-09-13 15:31 | MHC.EDTECH ---
This pct assumed care of pt at 1500 ,Patient was assisted to walk to bathroom ,void and back to bed ,urine sample collected and sent to lab ,Orthostatics vitals taken .
[2023-09-13 15:33] LABS: COVID-19 Test Negative (Negative); IDNOW Serial# 08D9AD1C; IDNOW Serial# 152EDE1D
[2023-09-13 15:34] LABS: Influenza A Negative (Negative); Influenza B2 Negative (Negative)
[2023-09-13 15:37] LABS: Appearance Urine Clear; Color Urine Yellow; Glucose Urine UA >=1000 mg/dL (Negative); Leukocyte Esterase Urine Negative (Negative); Nitrite Urine Negative (Negative); PH 7.5 (5.0-9.0); UMIC TRIGGER UACC YES; Urine Blood Negative (Negative); Urine Ketones Negative (Negative); Urine Protein Negative (Neg-Trace)
[2023-09-13 15:38] LABS: B Type Natriuretic Peptide 328 pg/mL (<100)
[2023-09-13 15:40] LABS: Carbon Dioxide 23 mmol/L (22-29); Chloride 103 mmol/L (96-108); Magnesium 1.9 mg/dL (1.6-2.6); Potassium 4.4 mmol/L (3.3-5.1); Sodium 133 mmol/L (135-145); Troponin-I High Sensitivity 2.8 ng/L (<3.5-17.0)
[2023-09-13 15:41] LABS: Anion Gap 11 (12-20); Blood Urea Nitrogen 17 mg/dL (9-16); Calcium 9.2 mg/dL (8.4-10.2); Creatinine Clr Calc Pharmacy 40.4; Estimated Glomerular Filt Rate 47; Lipase 26 U/L (8-78)
[2023-09-13 15:42] LABS: Alanine Aminotransferase 18 U/L (0-31); Albumin Level 3.1 g/dL (3.5-5.0); Alkaline Phosphatase 166 U/L (39-117); Aspartate Amino Transferase 43 U/L (5-31); Bilirubin Direct 0.7 mg/dL (0.0-0.5); Bilirubin Total 1.4 mg/dL (0.0-1.0); Total Protein 7.4 g/dL (6.5-8.0)
[2023-09-13 15:48] LABS: Glucose Random 582 mg/dL (60-115)
[2023-09-13 15:49] LABS: Bacteria Urine None Seen (None Seen); Hyaline Casts Urine 0-2 /LPF (0-2); RBC Urine 0-2 /HPF (0-2); Squamous Epithelial Cell Urine 0-2 /HPF (0-2); WBC Urine 0-5 /HPF (0-5)
[2023-09-13 16:10] VITALS: BP 142/59; PULSE 70; RESP 20; O2SAT 98
[2023-09-13 16:10] LABS: Glucose, Whole Blood 407 mg/dL (60-115)
[2023-09-13 17:26] VITALS: BP 134/52; PULSE 78; RESP 14; TEMP 36.8; O2SAT 100
[2023-09-13 17:33] LABS: Glucose, Whole Blood 347 mg/dL (60-115)
[2023-09-13] MEDS: Insulin Regular, Human 100 UNIT/ML 3 ML VIAL IVPUSH (18:05)
[2023-09-13 19:34] LABS: Glucose, Whole Blood 336 mg/dL (60-115)
[2023-09-13] MEDS: Furosemide 40 MG TABLET PO (19:42)
[2023-09-13 19:45] VITALS: BP 156/53; PULSE 80; RESP 18; O2SAT 97
== END 2023-09-13 19:59 | disposition home or self-care (01) ==
PROVIDERS: Emergency Provider Emergency Medicine
DX: E11.65 Type 2 diabetes mellitus with hyperglycemia (principal); I11.0 Hypertensive heart disease with heart failure; I50.9 Heart failure, unspecified; I48.0 Paroxysmal atrial fibrillation; Z79.4 Long term (current) use of insulin; Z79.02 Long term (current) use of antithrombotics/antiplatelets; Z79.899 Other long term (current) drug therapy; Z11.52 Encounter for screening for COVID-19
CPT/HCPCS: 36415; 71045; 80048; 80076; 81001; 82010; 82947; 83690; 83735; 83880; 84484; 85025; 85610; 87502; 87635; 93005; 96361; 96374; 96376; 99285

== ENCOUNTER → 2023-09-13 14:36 | Outpatient (BNV) | payer OTHER, SELFPAY | PROVIDERS: Emergency Provider Emergency Medicine; Visit Provider Internal Medicine Cardiovascular Disease | DX: R94.31 Abnormal electrocardiogram [ECG] [EKG] (principal) | CPT/HCPCS: 93010 ==

== ENCOUNTER 2023-09-23 16:44 | Emergency (ER) | payer OTHER, SELFPAY ==
--- NOTE | ~2023-09-23 | CT_ITS ---
EXAMINATION: CT ABDOMEN AND PELVIS WITH CONTRAST CLINICAL INFORMATION: Abdominal pain COMPARISON: 08/30/2023 TECHNIQUE: Multidetector volumetric images were obtained from the superior aspect of the liver through the pubic symphysis following administration 85 mL of Omnipaque 350 intravenous contrast. Sagittal and coronal reformatted images were obtained on the technologist's workstation. Oral contrast: No This CT examination was performed using dose optimization techniques as appropriate, variously including the following: *Automated exposure control *Adjustment of mA and/or kV according to patient size (this includes techniques or standardized protocols for targeted exams where dose is matched to indication/reason for exam; i.e. extremities or head) *Use of iterative reconstruction technique DLP: 472 mGy-cm FINDINGS: LUNG BASES: Small right pleural effusion and minimal atelectasis. LIVER, GALLBLADDER, AND BILIARY TREE: The liver demonstrates a nodular, cirrhotic morphology. There is a redemonstrated peripheral mildly hypoattenuating lesion in the right hepatic lobe measuring up to 2.8 cm on image 20/84, without significant change from prior. There is an additional mildly hypoattenuating lesion in the central portion of the right hepatic lobe measuring up to 3.1 cm on image 20/84, which appears either new or significantly increased in size from prior. A somewhat curvilinear region of hypoattenuation higher in the right hepatic lobe on image 16/86 is unchanged from prior. No significant intrahepatic biliary ductal dilatation. TIPS shunt is present. PANCREAS: Unremarkable. SPLEEN: Borderline enlarged. ADRENAL GLANDS: Unremarkable. KIDNEYS AND URETERS: Bilateral nephrograms are symmetric. No hydronephrosis or obstructing calculus identified. BLADDER: Unremarkable. GASTROINTESTINAL TRACT: No evidence of bowel obstruction or significant wall thickening. Large amount of stool is present throughout the colon. Appendix appears collapsed. No free fluid or free air is seen. ABDOMINAL WALL: No significant hernia is appreciated. LYMPH NODES: Normal. VASCULAR: There is atherosclerotic calcification along the aorta. PELVIC VISCERA: Unremarkable. OSSEOUS STRUCTURES: Unremarkable. CT/CT abdomen pelvis w IV con IMPRESSION: 1. Cirrhotic liver. Mildly hypoattenuating lesion in the central portion of the right hepatic lobe measures up to 3.1 cm, which appears either new or significantly increased in size from 08/30/2023. Differential considerations include hepatocellular carcinoma, and further workup with dynamic liver MRI is recommended. Peripheral hypoattenuating lesion in the right hepatic lobe is without significant change though measures higher than expected for a simple cyst; attention on MRI is also recommended 2. Small right pleural effusion. 3. Large amount of stool throughout the colon.
--- NOTE | ~2023-09-23 | XR_ITS ---
EXAMINATION: PORTABLE CHEST 1 VIEW CLINICAL INFORMATION: cough. COMPARISON: 09/13/2023. TECHNIQUE: Portable frontal view of the chest was obtained. FINDINGS: Patient is rotated to the left with mild hypoexpansion. Cannot exclude tiny layering effusions from this projection. Mild central vascular prominence but no overt edema when compared to the previous study. No pneumothorax. Cardiac silhouette is prominent but not significantly changed. Vascular calcification seen in aorta. Degenerative changes in the spine and shoulders. No acute bony abnormality seen. XR/XR chest 1V IMPRESSION: Hypoexpanded with mild central vascular prominence but no overt edema when compared to the prior study. No focal airspace disease.
[2023-09-23 17:47] VITALS: BP 170/68; BP 174/61; PULSE 65; PULSE 68; RESP 13; TEMP 36.4; O2SAT 97; O2SAT 98; BMI 32.3
[2023-09-23 17:48] VITALS: BP 174/61; PULSE 66; RESP 20; TEMP 36.3; O2SAT 98
--- NOTE | 2023-09-23 17:49 | MHC.EDTECH ---
Walked patient to bathroom with walker
--- NOTE | 2023-09-23 17:56 | ECG_ITS ---
Test Reason : HIGH BLOOD SUGAR Blood Pressure : / mmHG Vent. Rate : 066 BPM Atrial Rate : 066 BPM P-R Int : 128 ms QRS Dur : 076 ms QT Int : 466 ms P-R-T Axes : 045 031 061 degrees QTc Int : 488 ms Normal sinus rhythm Normal ECG When compared with ECG of 13-SEP-2023 14:47, Criteria for Septal infarct are no longer Present Referred By: Elva Price Electronically Signed By:Jesus Barnard
[2023-09-23 17:59] LABS: Glucose, Whole Blood 307 mg/dL (60-115)
--- NOTE | 2023-09-23 18:53 | ED.GENADULT ---
HPI - General Adult General Chief complaint: Altered Mental Status Stated complaint: HYPERGLYCEMIA(500), INCREASED CONFUSION Time Seen by Provider: 09/23/23 17:27 History of Present Illness HPI narrative: Patient is 72-year-old female presents today with having confusion having abdominal pain in the epigastric area. Patient was noted by EMS to be more lethargic. Patient is complaining that her sugar was high. She has a history of diabetes. EMS noted a sugar approximately 500. Patient was given 250 cc bolus of IV fluids. Sent in for further evaluation. No fever no chills no chest pain. No pain on urination. Patient from home. Related Data Home Medications Medication Instructions Recorded Confirmed calcium citrate 315 mg 1 tab PO DAILY 07/21/23 07/21/23 calcium-vitamin D3 6.25 mcg (250 unit) tablet cyanocobalamin (vitamin B-12) 1,000 mcg PO DAILY 07/21/23 07/21/23 1,000 mcg tablet docusate sodium 100 mg capsule 100 mg PO BID PRN Constipation 07/21/23 07/21/23 ferrous sulfate 325 mg (65 mg 325 mg PO BID 07/21/23 07/21/23 iron) tablet montelukast 10 mg tablet 10 mg PO DAILY 07/21/23 07/21/23 polyethylene glycol 3350 17 gram 17 g PO BID PRN Constipation 07/21/23 07/21/23 oral powder packet potassium chloride 10 mEq 10 meq PO DAILY 07/21/23 07/21/23 capsule,extended release rifaximin 550 mg tablet (Xifaxan) 550 mg PO BID 07/21/23 07/21/23 sennosides 8.6 mg tablet (Senna 8.6 mg PO BEDTIME PRN Constipation 07/21/23 07/21/23 Lax) Previous Rx's Medication Instructions Recorded escitalopram oxalate 20 mg tablet 20 mg PO DAILY 30 days #30 tabs 03/25/23 furosemide 40 mg tablet 40 mg PO DAILY 30 days #30 tabs 03/25/23 gabapentin 100 mg capsule 200 mg (2 x 100 mg) PO TID 30 days 03/25/23 #180 caps hydroxyzine HCl 25 mg tablet 25 mg PO Q6H PRN Anxiety 30 days 03/25/23 #60 tabs insulin aspart U-100 100 unit/mL 1 sliding scale dose subcut TID 03/25/23 subcutaneous solution (Novolog #10 mL U-100 Insulin aspart) lactulose 20 gram/30 mL oral 20 g (30 mL) PO TID 30 days #2,700 03/25/23 solution mL levothyroxine 25 mcg tablet 25 mcg PO DAILY 30 days #30 tabs 03/25/23 midodrine 10 mg tablet 10 mg PO TID 30 days #90 tabs 03/25/23 olanzapine 5 mg tablet 5 mg PO DAILY 30 days #30 tabs 03/25/23 pantoprazole 40 mg tablet,delayed 40 mg PO BID 30 days #60 tabs 03/25/23 release rosuvastatin 5 mg tablet 5 mg PO DAILY 30 days #30 tabs 03/25/23 spironolactone 50 mg tablet 50 mg PO DAILY 30 days #30 tabs 03/25/23 trospium 60 mg capsule,extended 60 mg PO 1XD 30 days #30 caps 03/25/23 release 24 hr umeclidinium 62.5 mcg/actuation 1 inh inhalation DAILY #30 ea 03/25/23 blister powder for inhalation (Incruse Ellipta) cefuroxime axetil 500 mg tablet 500 mg PO BID #4 tabs 07/30/23 doxycycline monohydrate 100 mg 100 mg PO Q12H #4 caps 07/30/23 capsule insulin glargine 100 unit/mL (3 40 unit (0.4 mL) subcut BEDTIME 07/30/23 mL) subcutaneous pen (Lantus #15 mL Solostar U-100 Insulin) metoprolol succinate 50 mg 50 mg PO DAILY #30 tabs 07/30/23 tablet,extended release 24 hr prednisone 20 mg tablet 20 mg PO DAILY #1 tab 07/30/23 levofloxacin 500 mg tablet 500 mg PO DAILY #7 tabs 08/31/23 furosemide 40 mg tablet (Lasix) 40 mg PO DAILY #5 tabs 09/13/23 insulin glargine 100 unit/mL (3 5 unit (0.05 mL) subcut QPM #15 mL 09/13/23 mL) subcutaneous pen (Lantus Solostar U-100 Insulin) polyethylene glycol 3350 17 17 g PO DAILY #119 grams 09/23/23 gram/dose oral powder (Miralax) Allergies Allergy/AdvReac Type Severity Reaction Status Date / Time aspirin Allergy Unknown Verified 09/13/23 14:31 bee pollen [bee stings] Allergy Unknown Verified 09/13/23 14:31 Penicillins Allergy Unknown Verified 09/13/23 14:31 Review of Systems Review of Systems: Positive generalized malaise positive abdominal pain PMFSH Past Medical History Attestation statement: The following information was validated with the patient. 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) Asthma (08/30/21) Arthritis Anxiety and depression Anemia of chronic disease Congestive heart failure Depression Type 2 diabetes mellitus Chronic constipation GERD (gastroesophageal reflux disease) Asthma-COPD overlap syndrome Hypothyroidism History of hepatitis C Hepatic cirrhosis Hypertension Social History Social History Household Members: None Household Members Other:: two daughters, two grandchildren and son-in-law Housing: Other Housing Other:: Multifamily Do you presently have visiting nurse or other home services: No Patient Tobacco Use Status: Never used Tobacco Tobacco use type: Cigarette Smoked in Last 30 Days: No Second Hand Smoke Exposure: No Use of substances other than those prescribed or required for medical reasons: No Substance Use Type: Crack/Cocaine and Marijuana Advance Directives: Yes Advance Directives on File: Yes Advance Directives Date on File: 07/31/23 service: No Sexual orientation: Straight/Heterosexual Physical Exam ED Vital Signs: Vital Signs - 24 hr 09/23/23 17:47 09/23/23 17:48 09/23/23 20:09 Temperature 97.6 F 97.3 F 98.4 F Pulse Rate 65 66 66 Respiratory Rate 13 20 15 Blood Pressure 174/61 H 174/61 H 149/64 H Pulse Oximetry 98 98 96 Oxygen Delivery Method Room Air Room Air Room Air BMI result Body Mass Index 32.3 Appearance: Alert. Oriented X3. No acute distress. Eyes: Pupils equal, round and reactive to light. ENT: Pharynx normal. Neck: Normal inspection. Neck supple. No lymph nodes noted. No crepitus CVS: Normal heart rate and rhythm. Pulses normal. Normal S1 and S2 Respiratory: No respiratory distress. Breath sounds normal. No Wheezing. No rales Abdomen: Soft and nontender. No rigidity. No distention. good BS x4 Skin: Skin warm and dry. Normal skin color. Normal skin turgor. Extremities: No lower extremity edema. Neurovascular intact to all extremities. No Lacerations. No Rash Neuro: Oriented X 3. No motor deficit. No sensory deficit. Moving all extermities. No slurred speech Medications Administered Discontinued Medications Generic Name Dose Route Start Last Admin Trade Name Dilia PRN Reason Stop Dose Admin Sodium Chloride 1,000 mls @ 999 mls/hr 09/23/23 18:00 09/23/23 21:21 Ns IV 09/23/23 19:00 Infused .Q1H1M ZENA Infusion Iohexol 85 ml 09/23/23 20:43 09/23/23 20:43 Iohexol 350 Mg/Ml 100 Ml Infus..Btl IV 09/23/23 20:44 85 ml ONCE ONE Administration Medical Decision Making Medical Decision Making [facility] Narrative: 72-year-old female presented today with having altered mental status. Patient had increased confusion feels more tired. She was noted to have a sugar of approximately 500 by EMS. Given 250 of fluids. Trigger was approximately 300 on arrival. Patient's beta hydroxybutyrate is normal. There has no evidence for DKA. Sugar after additional IV fluids is down to 250. Electrolytes unremarkable. Troponin is negative. My interpretation of her EKG showed a sinus rhythm heart rate is 60 DC QRS QTC within normal limits is no acute ST segment elevation noted. Patient's urine showed no signs of infection. COVID test was negative. The my interpretation of patient's chest x-ray showed no focal infiltrate. No evidence for pneumonia. IV hydration given. Will monitor carefully. CT scan of the abdomen showed no acute abscess perforation. It did showed a cirrhotic liver with an enlarged mass. Can not exclude the possibility of malignancy. This finding was discussed with patient. The need for follow-up discussed. Patient aware that she has a mass in the liver. Is being seen by someone in [facility]. Will have patient closely follow. Patient's sugars down. No evidence of DKA. Patient's electrolytes are normal EKG is okay urine showed no signs of infection did show large amount of stool will require follow-up on an outpatient basis. Dietary changes. Differential Diagnosis Differential Diagnoses: The differential diagnosis associated with the presentation includes Pneumonia, hyperglycemia, DKA Admission/Observation Consideration of admission/observation: Escalation of care including admission/observation considered Lab Data MDM Lab Attestation statement: I reviewed the patient's lab results. 09/23/23 19:53 09/23/23 19:53 Labs: Lab Results 09/23/23 09/23/23 Range/Units 17:55 19:53 WBC 6.6 (4.8-10.8) X10*3/uL RBC 4.45 (4.20-5.50) X10*6/uL Hgb 13.1 (12.0-16.0) g/dl Hct 39.5 (37.0-47.0) % MCV 88.8 (80.0-98.0) fL MCH 29.4 (27.0-33.0) pg MCHC 33.2 (31.0-35.0) g/dl RDW 14.8 (11.0-16.0) % Plt Count 98 L (160-400) X10*3/uL MPV 10.8 (9.4-12.3) fL Immature Gran % (Auto) 0.3 (0.0-0.4) % Neut % (Auto) 79.6 H (45-73) % Lymph % (Auto) 6.9 L (20-40) % [place] % (Auto) 10.1 (2-11) % Eos % (Auto) 2.9 (0-4) % Baso % (Auto) 0.2 (0-2) % Lymph # (Auto) 0.5 L (1.2-4.9) X10*3/uL [place] # (Auto) 0.7 (0.1-1.2) X10*3/uL Eos # (Auto) 0.2 (0.0-0.4) X10*3/uL Baso # (Auto) 0.0 (0.0-0.2) X10*3/uL Abs Immat Gran (auto) 0.02 (0.00-0.03) X10*3/uL Absolute Neuts (auto) 5.3 (2.0-8.3) x10*3/uL Absolute Nucleated RBC 0.000 (0.0-0.012) X10*3/uL Nucleated RBC % (auto) 0.0 (0.0-0.2) /100WBC Sodium 140 (135-145) mmol/L Potassium 3.4 D (3.3-5.1) mmol/L Chloride 109 H (96-108) mmol/L Carbon Dioxide 24 (22-29) mmol/L Anion Gap 10 L (12-20) BUN 14 (9-16) mg/dL Creatinine 0.73 (0.5-1.4) mg/dL Estim Creat Clear Calc 61.3 Estimated GFR > 60 POC Glucose 307 H (60-115) mg/dL Random Glucose 247 H (60-115) mg/dL Calcium 9.1 (8.4-10.2) mg/dL Total Bilirubin 1.8 H (0.0-1.0) mg/dL Direct Bilirubin 0.9 H (0.0-0.5) mg/dL AST 39 H (5-31) U/L ALT 24 (0-31) U/L Alkaline Phosphatase 141 H (39-117) U/L Troponin I High Sens 3.9 (<3.5-17.0) ng/L Total Protein 6.6 (6.5-8.0) g/dL Albumin 3.0 L (3.5-5.0) g/dL Lipase 30 (8-78) U/L Beta-Hydroxybutyrate 0.10 (0.02-0.27) mmol/L Urine Color Yellow Urine Appearance Clear Urine pH 8.0 (5.0-9.0) Ur Specific [place] 1.015 (1.005-1.025) Urine Protein Negative (Neg-Trace) mg/dL Urine Glucose (UA) >=1000 H (Negative) mg/dL Urine Ketones Negative (Negative) mg/dL Urine Blood Negative (Negative) Urine Nitrite Negative (Negative) Ur Leukocyte Esterase Negative (Negative) Urine RBC 0-2 (0-2) /HPF Urine WBC 0-5 (0-5) /HPF Ur Squamous Epith Cells 0-2 (0-2) /HPF Urine Bacteria Trace (None Seen) Hyaline Casts 0-2 (0-2) /LPF COVID-19 (MAINE) Negative (Negative) COVID-19 Clin Com See Note Discharge Plan Discharge Clinical Impression: Type 2 diabetes mellitus, Constipation Patient Disposition: Home, Self-Care Instructions: Constipation (DC), Basic Carbohydrate Counting (DC), Type 2 Diabetes in the Older Adult (ED) Additional Instructions: A mass was found in your liver. You must follow-up. A risk of cancer exists Prescriptions: New polyethylene glycol 3350 [Miralax] 17 gram/dose powder 17 g PO DAILY Qty: 119 0RF No Action furosemide 40 mg Tablet 40 mg PO DAILY 30 Days Qty: 30 0RF Protocol: Hold for SBP< HOLD for SBP < : 90 olanzapine 5 mg Tablet 5 mg PO DAILY 30 Days Qty: 30 0RF hydroxyzine HCl 25 mg Tablet 25 mg PO Q6H PRN (Reason: Anxiety) 30 Days Qty: 60 0RF lactulose 20 gram/30 mL Solution 20 g PO TID 30 Days Qty: 2700 0RF levothyroxine 25 mcg Tablet 25 mcg PO DAILY 30 Days Qty: 30 0RF insulin aspart U-100 [Novolog U-100 Insulin aspart] 100 unit/mL Solution 1 sliding scale dose SUBCUT TID Qty: 10 0RF pantoprazole 40 mg Tablet,Delayed Release (Dr/Ec) 40 mg PO BID 30 Days Qty: 60 0RF gabapentin 100 mg Capsule 200 mg PO TID 30 Days Qty: 180 0RF spironolactone 50 mg Tablet 50 mg PO DAILY 30 Days Qty: 30 0RF midodrine 10 mg Tablet 10 mg PO TID 30 Days Qty: 90 0RF Rx Instructions: do not give last dose of day after 6PM or within 4 hrs of bedtime escitalopram oxalate 20 mg Tablet 20 mg PO DAILY 30 Days Qty: 30 0RF rosuvastatin 5 mg Tablet 5 mg PO DAILY 30 Days Qty: 30 0RF trospium 60 mg Capsule,Extended Release 24hr 60 mg PO 1XD 30 Days Qty: 30 0RF Incruse Ellipta 62.5 mcg/actuation Blister With Device 1 inh INHALATION DAILY Qty: 30 0RF cyanocobalamin (vitamin B-12) 1,000 mcg tablet 1,000 mcg PO DAILY montelukast 10 mg tablet 10 mg PO DAILY potassium chloride 10 mEq capsule, extended release 10 meq PO DAILY calcium citrate-vitamin D3 315 mg-6.25 mcg (250 unit) tablet 1 tab PO DAILY Xifaxan 550 mg tablet 550 mg PO BID docusate sodium 100 mg capsule 100 mg PO BID PRN (Reason: Constipation) sennosides [Senna Lax] 8.6 mg tablet 8.6 mg PO BEDTIME PRN (Reason: Constipation) polyethylene glycol 3350 17 gram powder in packet 17 g PO BID PRN (Reason: Constipation) ferrous sulfate 325 mg (65 mg iron) tablet 325 mg PO BID prednisone 20 mg Tablet 20 mg PO DAILY Qty: 1 0RF doxycycline monohydrate 100 mg Capsule 100 mg PO Q12H Qty: 4 0RF cefuroxime axetil 500 mg Tablet 500 mg PO BID Qty: 4 0RF insulin glargine [Lantus Solostar U-100 Insulin] 100 unit/mL (3 mL) insulin pen 40 unit SUBCUT BEDTIME Qty: 15 0RF metoprolol succinate 50 mg tablet extended release 24 hr 50 mg PO DAILY Qty: 30 0RF levofloxacin 500 mg tablet 500 mg PO DAILY Qty: 7 0RF insulin glargine [Lantus Solostar U-100 Insulin] 100 unit/mL (3 mL) insulin pen 5 unit subcut QPM Qty: 15 0RF furosemide [Lasix] 40 mg tablet 40 mg PO DAILY Qty: 5 0RF Referrals: Physician,Unknown J [Primary Care Provider] - 09/25/23
[2023-09-23 19:59] LABS: MANUAL DIFF FLAG NO
[2023-09-23 20:02] LABS: Basophils Percent Auto 0.2 % (0-2); Eosinophils Absolute Auto 0.2 X10*3/uL (0.0-0.4); Eosinophils Percent Auto 2.9 % (0-4); Hematocrit 39.5 % (37.0-47.0); Hemoglobin 13.1 g/dl (12.0-16.0); Imm Gran Abs Auto 0.02 X10*3/uL (0.00-0.03); Imm Gran Pct Auto 0.3 % (0.0-0.4); Lymphocytes Absolute Auto 0.5 X10*3/uL (1.2-4.9); Lymphocytes Percent Auto 6.9 % (20-40); Mean Corpuscular HGB Conc 33.2 g/dl (31.0-35.0); Mean Corpuscular Hemoglobin 29.4 pg (27.0-33.0); Mean Corpuscular Volume 88.8 fL (80.0-98.0); Mean Platelet Volume 10.8 fL (9.4-12.3); Monocytes Absolute Auto 0.7 X10*3/uL (0.1-1.2); Monocytes Percent Auto 10.1 % (2-11); Neutrophils Absolute Auto 5.3 x10*3/uL (2.0-8.3); Neutrophils Percent Auto 79.6 % (45-73); Red Blood Count 4.45 X10*6/uL (4.20-5.50); Red Cell Distribution Width 14.8 % (11.0-16.0); White Blood Count 6.6 X10*3/uL (4.8-10.8)
[2023-09-23 20:04] LABS: Platelet Count 98 X10*3/uL (160-400)
[2023-09-23] MEDS: 0.9 % Sodium Chloride 1,000 ML 999 ML IV (20:06)
[2023-09-23 20:09] VITALS: BP 149/64; PULSE 66; RESP 15; TEMP 36.9; O2SAT 96
[2023-09-23 20:11] LABS: Appearance Urine Clear; Color Urine Yellow; Glucose Urine UA >=1000 mg/dL (Negative); Leukocyte Esterase Urine Negative (Negative); Nitrite Urine Negative (Negative); Specific Gravity - Urine 1.015 (1.005-1.025); UMIC TRIGGER UACC YES; Urine Blood Negative (Negative); Urine Ketones Negative (Negative); Urine Protein Negative (Neg-Trace)
[2023-09-23 20:13] LABS: Bacteria Urine Trace (None Seen); Hyaline Casts Urine 0-2 /LPF (0-2); RBC Urine 0-2 /HPF (0-2); Squamous Epithelial Cell Urine 0-2 /HPF (0-2); WBC Urine 0-5 /HPF (0-5)
[2023-09-23 20:21] LABS: Alanine Aminotransferase 24 U/L (0-31); Alkaline Phosphatase 141 U/L (39-117); Anion Gap 10 (12-20); Aspartate Amino Transferase 39 U/L (5-31); Bilirubin Direct 0.9 mg/dL (0.0-0.5); Bilirubin Total 1.8 mg/dL (0.0-1.0); Blood Urea Nitrogen 14 mg/dL (9-16); COVID-19 Test Negative (Negative); Calcium 9.1 mg/dL (8.4-10.2); Carbon Dioxide 24 mmol/L (22-29); Chloride 109 mmol/L (96-108); Creatinine Clr Calc Pharmacy 61.3; Estimated Glomerular Filt Rate > 60; Glucose Random 247 mg/dL (60-115); IDNOW Serial# 58CA691E; Lipase 30 U/L (8-78); Potassium 3.4 mmol/L (3.3-5.1); Sodium 140 mmol/L (135-145); Total Protein 6.6 g/dL (6.5-8.0); Troponin-I High Sensitivity 3.9 ng/L (<3.5-17.0)
[2023-09-23] MEDS: iohexoL 350 MG/ML 100 ML INFUS..BTL 85 ML IV (20:43)
[2023-09-23 22:34] LABS: Glucose, Whole Blood 205 mg/dL (60-115)
== END 2023-09-23 22:52 | disposition home or self-care (01) ==
PROVIDERS: Emergency Provider Emergency Medicine Emergency Medical Services
DX: K59.00 Constipation, unspecified (principal); E11.9 Type 2 diabetes mellitus without complications; R10.13 Epigastric pain; R41.0 Disorientation, unspecified; I10 Essential (primary) hypertension; R05.9 Cough, unspecified; Z79.4 Long term (current) use of insulin; Z79.899 Other long term (current) drug therapy; Z11.52 Encounter for screening for COVID-19
CPT/HCPCS: 36415; 71045; 74177; 80048; 80076; 81001; 82010; 82947; 83690; 84484; 85025; 87635; 93005; 96360; 99284; 99285; Q9967

== ENCOUNTER → 2023-09-23 17:56 | Outpatient (BNV) | payer OTHER, SELFPAY | PROVIDERS: Emergency Provider Emergency Medicine Emergency Medical Services; Visit Provider Internal Medicine Cardiovascular Disease | DX: R41.82 Altered mental status, unspecified (principal) | CPT/HCPCS: 93010 ==